=== PATIENT | male | born 1945 | race American Indian/Alaskan Native ===

== ENCOUNTER 2020-10-02 22:37 | Inpatient (IN) | payer MEDICARE ==
--- NOTE | 2020-10-02 22:50 | Emergency Department Report ---
ED General Adult HPI - General Chief complaint: Altered Mental Status Stated complaint: AMS Time Seen by Provider: 10/02/20 22:47 Source: patient, EMS (Verbal report received from emergency medical services. EMS documentation not available at time of chart dictation ), RN notes reviewed Mode of arrival: Stretcher Limitations: Altered Mental Status, Physical Limitation - History of Present Illness Initial comments: The patient was evaluated in the emergency department for symptoms described in the history of present illness. He/she was evaluated in the context of the global COVID-19 pandemic, which necessitated consideration that the patient migh t be at risk for infection with the virus that causes COVID-19. Institutional protocols and algorithms that pertain to the evaluation of patients at risk for COVID-19 are in a state of rapid change based on information released by regulatory bodies including the CDC and federal and state organizations. These policies and algorithms were followed during the patient's care in the emergency department. Please note that these policies, procedures and recommendations changed on a rapid basis. The patient is a 74-year-old gentleman. He is not known to myself previously. He is brought to the hospital by emergency medical services for weakness and altered mental status. EMS reports normal blood pressure in the field, low Accu-Chek in the field, they were not able to obtain a temperature. EMS reports that patient's last known well time is reportedly at least 12 hours prior to arrival. However, EMS is not explicitly certain as to the patient's exact last known well time. EMS did state that the patient lives at home with a family member, and is able to ambulate sometimes with a walker, sometimes without a walker. Upon my evaluation, the patient is awake and confused. He appears to have left- sided weakness. As the patient presents within 24 hours of last known well time, a code stroke is called overhead. However, given suspicion for hypothermia and hypoglycemia, we suspect infectious pathology versus toxic metabolic encephalopathy. Given left-sided deficits, emergent CT head, emergent CT angiogram head and neck ordered to evaluate for bleed, large vessel occlusion, dissection. Patient also seen in conjunction with stroke neurology, Dr. Kory Guerrero Noncontrast CT scan of the brain was negative for bleed. A right-sided MCA calcification was noted. A CT angiogram head and neck demonstrated no large vessel occlusion. X-ray the chest showed a right lower lobe pneumonia. Rectal temperature was 90.1. Lactic acid is 2.2. CBC is pending. Given hypoglycemia, hypothermia, lactic acidosis, altered mental status, patient to be admitted to the medical service for supportive care, and glycemic monitoring. I placed patient for orders for Accu-Cheks every 1 hour, D50 as needed, dextrose drip, ceftriaxone and azithromycin. Currently, EMS at the bedside, and I have instructed them to administer an additional amp of D50. Hospital physician, Dr. Martinez to admit to the medical service -: unknown - Related Data Allergies Allergy/AdvReac Type Severity Reaction Status Date / Time Unable to Assess Allergy Unverified 10/03/20 00:39 ED Review of Systems ROS: Stated complaint: AMS Other details as noted in HPI Comment: Unobtainable due to pts medical conditions Constitutional: malaise, weakness Cardiovascular: denies: chest pain Gastrointestinal: denies: abdominal pain Neurological: weakness, confusion ED Physical Exam - General Limitations: Altered Mental Status, Physical Limitation General appearance: lethargic - Head Head exam: Present: atraumatic, normocephalic - Eye Eye exam: Present: normal appearance, PERRL, EOMI. Absent: nystagmus - ENT ENT exam: Present: normal exam, normal orophraynx, mucous membranes moist, normal external ear exam, other (Patient has poor dentition) - Neck Neck exam: Present: normal inspection, full ROM. Absent: tenderness, meningismus - Respiratory Respiratory exam: Present: normal lung sounds bilaterally. Absent: respiratory distress, wheezes, rales, rhonchi, stridor, decreased breath sounds - Cardiovascular Cardiovascular Exam: Present: regular rate, normal rhythm, normal heart sounds. Absent: bradycardia, tachycardia, irregular rhythm, systolic murmur, diastolic murmur, rubs, gallop - GI/Abdominal GI/Abdominal exam: Present: soft. Absent: distended, tenderness, rebound, pulsatile mass - Rectal Rectal exam: Present: normal inspection, other (Brown stool noted on external exam). Absent: black stool, bloody stool - Extremities Exam Extremities exam: Present: normal inspection, pedal edema (There is 2+ edema in the bilateral lower extremities) - Back Exam Back exam: Present: normal inspection. Absent: tenderness, CVA tenderness (R), CVA tenderness (L), paraspinal tenderness, vertebral tenderness - Neurological Exam Neurological exam: Present: altered, other (There is no facial droop. The tongue is midline. EOMI. 3 out of 5 strength left arm, left leg. 4 out of 5 strength right arm and right leg. Sensation is intact to light touch in 4 extremities.) - Psychiatric Psychiatric exam: Present: flat affect - Skin Skin exam: Present: warm, dry, intact, normal color. Absent: rash ED Course Vital Signs 10/03/20 00:39 Temperature 90.1 F L Pulse Rate 98 H Respiratory 16 Rate Blood Pressure 128/75 [Right] O2 Sat by Pulse 99 Oximetry - Reevaluation(s) Reevaluation #1: 10/03/20 00:26 Differential diagnosis, including but not limited to: Stroke, subacute stroke, pneumonia, urinary tract infection, hypoglycemia, thyroid derangement Assessment and plan: 74-year-old gentleman with weakness, altered mental status, left-sided deficits, presents more than 4.5 hours after last known well time, TPA contraindicated. Given that he reportedly presents within 24 hours of last known well time, he is emergently and administratively consented for CT jose alejandro ogram head and neck to evaluate for large vessel occlusion and dissection. CT angiogram negative for large vessel occlusion and dissection. X-ray of the chest suggest right lower lobe pneumonia, this in conjunction with hypoglycemia and hypothermia is suggestive of sepsis. Currently do not have body weight entered, patient does not know his own body weight. Therefore, empirically dosed 2 L of normal saline, D10 at 150 cc an hour, ceftriaxone 1 g, and azithromycin 500 mg. Have also ordered active patient warming. Every 1 hour Accu-Chek is ordered. Hospital physician, Dr. Martinez to admit to the IMCU Rectal exam showed no blood and brown stool. Patient found to have microcytic anemia. Defer to inpatient team to further manage this. 10/03/20 01:02 ED Medical Decision Making - Lab Data Result diagrams: 10/02/20 23:17 10/02/20 23:17 Rectal temperature: 90.1 F Blood pressure 128/85 mmHg Heart rate 95 bpm 100% on room air. Respiratory rate, 16 breaths/min Vital Signs 10/03/20 00:39 Temperature 90.1 F L Pulse Rate 98 H Respiratory 16 Rate Blood Pressure 128/75 [Right] O2 Sat by Pulse 99 Oximetry Lab Results 10/02/20 10/02/20 10/02/20 Range/Units 23:17 23:17 23:17 WBC 7.8 (4.5-11.0) K/mm3 RBC 3.31 L (3.65-5.03) M/mm3 Hgb 6.7 L (11.8-15.2) gm/dl Hct 21.8 L (35.5-45.6) % MCV 66 L (84-94) fl MCH 20 L (28-32) pg MCHC 31 L (32-34) % RDW 31.7 H (13.2-15.2) % Plt Count 253 (140-440) K/mm3 PT 20.8 H (12.2-14.9) Sec. INR 1.74 H (0.87-1.13) APTT 57.6 H (24.2-36.6) Sec. Thrombin Time 17.8 (15.1-19.6) Sec. Sodium 139 (137-145) mmol/L Potassium 3.6 (3.6-5.0) mmol/L Chloride 101.3 (98-107) mmol/L Carbon Dioxide 27 (22-30) mmol/L Anion Gap 14 mmol/L BUN 15 (9-20) mg/dL Creatinine 0.9 (0.8-1.3) mg/dL Estimated GFR > 60 ml/min BUN/Creatinine Ratio 17 % Glucose 42 L (75-100) mg/dL Lactic Acid (0.7-2.0) mmol/L Calcium 8.8 (8.4-10.2) mg/dL Total Bilirubin 0.50 (0.1-1.2) mg/dL AST 26 (5-40) units/L ALT 17 (7-56) units/L Alkaline Phosphatase 101 (35-129) units/L Ammonia (25-60) umol/L Total Creatine Kinase 88 (55-170) units/L CK-MB (CK-2) 7.5 H (0.0-4.0) ng/mL CK-MB (CK-2) Rel Index 8.5 H (0-4) Troponin T < 0.010 (0.00-0.029) ng/mL Total Protein 6.3 (6.3-8.2) g/dL Albumin 2.9 L (3.9-5) g/dL Albumin/Globulin Ratio 0.9 % TSH (0.270-4.200) mlU/mL Salicylates (2.8-20.0) mg/dL Acetaminophen (10.0-30.0) ug/mL Plasma/Serum Alcohol (0-0.07) % 10/02/20 10/02/20 10/02/20 Range/Units 23:17 23:17 23:17 WBC (4.5-11.0) K/mm3 RBC (3.65-5.03) M/mm3 Hgb (11.8-15.2) gm/dl Hct (35.5-45.6) % MCV (84-94) fl MCH (28-32) pg MCHC (32-34) % RDW (13.2-15.2) % Plt Count (140-440) K/mm3 PT (12.2-14.9) Sec. INR (0.87-1.13) APTT (24.2-36.6) Sec. Thrombin Time (15.1-19.6) Sec. Sodium (137-145) mmol/L Potassium (3.6-5.0) mmol/L Chloride (98-107) mmol/L Carbon Dioxide (22-30) mmol/L Anion Gap mmol/L BUN (9-20) mg/dL Creatinine (0.8-1.3) mg/dL Estimated GFR ml/min BUN/Creatinine Ratio % Glucose (75-100) mg/dL Lactic Acid 2.20 H* (0.7-2.0) mmol/L Calcium (8.4-10.2) mg/dL Total Bilirubin (0.1-1.2) mg/dL AST (5-40) units/L ALT (7-56) units/L Alkaline Phosphatase (35-129) units/L Ammonia (25-60) umol/L Total Creatine Kinase (55-170) units/L CK-MB (CK-2) (0.0-4.0) ng/mL CK-MB (CK-2) Rel Index (0-4) Troponin T (0.00-0.029) ng/mL Total Protein (6.3-8.2) g/dL Albumin (3.9-5) g/dL Albumin/Globulin Ratio % TSH 2.060 (0.270-4.200) mlU/mL Salicylates (2.8-20.0) mg/dL Acetaminophen (10.0-30.0) ug/mL Plasma/Serum Alcohol < 0.01 (0-0.07) % 10/02/20 10/02/20 10/02/20 Range/Units 23:17 23:17 23:17 WBC (4.5-11.0) K/mm3 RBC (3.65-5.03) M/mm3 Hgb (11.8-15.2) gm/dl Hct (35.5-45.6) % MCV (84-94) fl MCH (28-32) pg MCHC (32-34) % RDW (13.2-15.2) % Plt Count (140-440) K/mm3 PT (12.2-14.9) Sec. INR (0.87-1.13) APTT (24.2-36.6) Sec. Thrombin Time (15.1-19.6) Sec. Sodium (137-145) mmol/L Potassium (3.6-5.0) mmol/L Chloride (98-107) mmol/L Carbon Dioxide (22-30) mmol/L Anion Gap mmol/L BUN (9-20) mg/dL Creatinine (0.8-1.3) mg/dL Estimated GFR ml/min BUN/Creatinine Ratio % Glucose (75-100) mg/dL Lactic Acid (0.7-2.0) mmol/L Calcium (8.4-10.2) mg/dL Total Bilirubin (0.1-1.2) mg/dL AST (5-40) units/L ALT (7-56) units/L Alkaline Phosphatase (35-129) units/L Ammonia 22.0 L (25-60) umol/L Total Creatine Kinase (55-170) units/L CK-MB (CK-2) (0.0-4.0) ng/mL CK-MB (CK-2) Rel Index (0-4) Troponin T (0.00-0.029) ng/mL Total Protein (6.3-8.2) g/dL Albumin (3.9-5) g/dL Albumin/Globulin Ratio % TSH (0.270-4.200) mlU/mL Salicylates < 0.3 L (2.8-20.0) mg/dL Acetaminophen 5.0 L (10.0-30.0) ug/mL Plasma/Serum Alcohol (0-0.07) % - Radiology Data Radiology results: pending, report reviewed, image reviewed CT angio head INDICATION / CLINICAL INFORMATION: 74 years Male; CODE STROKE PROTOCOL!!! Stroke-Like symptoms. TECHNIQUE: Thin cut axial images obtained through the head during IV bolus contrast administration. Sagittal, coronal, and 3 plane MIP reconstructions performed by the technologist. NASCET type criteria used evaluate stenoses. Automated exposure control utilized for radiation reduction purposes. COMPARISON: None available. FINDINGS: INTERNAL CAROTID ARTERIES: There is mild narrowing are seen in the communicating and cavernous portions of both internal carotid arteries, related to atherosclerotic disease. VERTEBROBASILAR SYSTEM: No significant narrowing appreciated. DISTAL BRANCHES: Distal branches of the anterior, middle, and posterior cerebral arteries are fairly symmetric in appearance and number. Focal areas of moderate to high-grade narrowing are seen in the proximal P2 regions bilaterally . Focal area of moderate narrowing is seen in a proximal right MCA trifurcation branch, as well ANEURYSM: None identified. 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 Would question prior bony facial trauma in the right maxillary antrum region. Mild to moderate mucosal thickening seen in the maxillary antra and ethmoids. IMPRESSION: 1. There is significant narrowing seen in both posterior cerebral arteries, as described above. 2. No signs of large vessel occlusion Signer Name: Royce Estevez MD, III Signed: 10/02/2020 10:52 PM Workstation Name: [id number] . CT angio neck INDICATION / CLINICAL INFORMATION: 74 years Male; CODE STROKE PROTOCOL!!! Stroke-Like symptoms. TECHNIQUE: Thin cut axial images obtained through the head during IV bolus contrast administration. Sagittal, coronal, and 3 plane MIP reconstructions performed by the technologist. NASCET type criteria used evaluate stenoses. All CT scans at this location are performed using CT dose reduction for ALARA by means of automated exposure control. COMPARISON: None available. FINDINGS: ARCH: Normal aortic arch branching suggested. CAROTID ARTERIES: The visualized common and internal carotid arteries are widely patent. Mild atherosclerotic disease seen. VERTEBRAL ARTERIES: Codominant vertebral system seen. No significant stenosis appreciated. ADDITIONAL FINDINGS: Significant facet hypertrophy seen at multiple levels. There is canal narrowing at C3-4 from disc disease anteriorly and ligamentum flavum hypertrophy posteriorly. No definitive signs of cord impingement seen. Most marked osseous foraminal narrowing appears to be on the left at C4-5 and C3-4 and on the right from C2-3 through C5-6. Poor dentition noted. I MPRESSION: No significant stenosis appreciated on this CTA of the neck. Signer Name: Royce Estevez MD, III Signed: 10/02/2020 10:[address] head without contrast INDICATION : Code stroke. Stroke like symptoms. TECHN IQUE: Axial imaging performed from the skull apex through the skull base without the use of contrast. All CT examinations performed at this facility utilize dose modulation, iterative reconstruction or weight-based dosing, when appropriate, to reduce radiation dose to as low as reasonably achievable. COMPARISON: None FINDINGS: No acute intracranial hemorrhage identified. There is mild diffuse cerebral atrophy. There is diffuse cerebral atrophy with periventricular white matter changes which could be seen with microangiopathic change. There is suspicious calcification identified within the right MCA best seen on coronal image [address] series 601. There is evidence of a lacunar infarct within the anterior right basal ganglia that is chronic in appearance measuring about 9 mm in diameter. The orbits are unremarkable. The paranasal sinuses demonstrate mild mucosal thickening. IMPRESSION: No acute intracranial hemorrhage is identified. Diffuse cerebral atrophy with suspicious atheroscle rotic calcification within the distal right MCA, as above. CODE STROKE: Time of Communication (GAMBLING DEALER/CDT): 10:25 PM central time on 10/02/2020 Licensed Practitioner Receiving Report: Lilian MUÑOZ Signer Name: Freddy Berg MD Signed: 10/02/2020 10:28 PM Workstation Name: [id number] 1 VIEW INDICATION / CLINICAL INFORMATION: weak ams. Dyspnea FINDINGS: SUPPORT DEVICES: None. HEART / MEDIASTINUM: No significant abnormality. LUNGS / PLEURA: Faint patchy airspace disease within the right lower lung. Signer Name: Freddy Berg MD Signed: 10/02/2020 10:57 PM Workstation Name: [id number] Critical Care Time: Yes Critical care time in (mins) excluding proc time.: 45 Critical care attestation.: If time is entered above; I have spent that time in minutes in the direct care of this critically ill patient, excluding procedure time. ED Disposition Clinical Impression: Hypothermia, Hypoglycemia, Left-sided weakness, Atherosclerotic cerebrovascular disease, Pulmonary infiltrate in right lung on CXR, Microcytic anemia Disposition: ADMITTED INPATIENT Is pt being admited?: Yes Does the pt Need Aspirin: Yes Condition: Serious
--- NOTE | 2020-10-02 23:32 | Cat Scan Report ---
CT head without contrast INDICATION : Code stroke. Stroke like symptoms. TECHNIQUE: Axial imaging performed from the skull apex through the skull base without the use of con trast. All CT examinations performed at this facility utilize dose modulation, iterative reconstruct ion or weight-based dosing, when appropriate, to reduce radiation dose to as low as reasonably achiev able. COMPARISON: None FINDINGS: No acute intracranial hemorrhage identified. There is mild diffuse cerebral atrophy. There is diffuse cerebral atrophy with periventricular white matter changes which could be seen with microa ngiopathic change. There is suspicious calcification identified within the right MCA best seen on cor onal image [address] series 601. There is evidence of a lacunar infarct within the anterior right basa l ganglia that is chronic in appearance measuring about 9 mm in diameter. The orbits are unremarkable. The paranasal sinuses demonstrate mild mucosal thickening. IMPRESSION: No acute intracranial hemorrhage is identified. Diffuse cerebral atrophy with suspicious atherosclerotic calcification within the distal right MCA, as above. CODE STROKE: Time of Communication (LEAD PYTHON DEVELOPER/CDT): 10:25 PM central time on 10/02/2020 Licensed Practitioner Receiving Report: Lilian MUÑOZ Signer Name: Freddy Berg MD Signed: 10/02/2020 11:28 PM Workstation Name: [id number]
--- NOTE | 2020-10-02 23:56 | Cat Scan Report ---
CT angio head INDICATION / CLINICAL INFORMATION: 74 years Male; CODE STROKE PROTOCOL!!! Stroke-Like symptoms. TECHNIQUE: Thin cut axial images obtained through the head during IV bolus contrast administration. S agittal, coronal, and 3 plane MIP reconstructions performed by the technologist. NASCET type criteria used evaluate stenoses. Automated exposure control utilized for radiation reduction purposes. COMPARISON: None available. FINDINGS: INTERNAL CAROTID ARTERIES: There is mild narrowing are seen in the communicating and cavernous portio ns of both internal carotid arteries, related to atherosclerotic disease. VERTEBROBASILAR SYSTEM: No significant narrowing appreciated. DISTAL BRANCHES: Distal branches of the anterior, middle, and posterior cerebral arteries are fairly symmetric in appearance and number. Focal areas of moderate to high-grade narrowing are seen in the proximal P2 regions bilaterally. Focal area of moderate narrowing is seen in a proximal right MCA trifurcation branch, as well ANEURYSM: None identified. 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 Would question prior bony facial trauma in the right maxillary antrum region. Mild to moderate mucosa l thickening seen in the maxillary antra and ethmoids. IMPRESSION: 1. There is significant narrowing seen in both posterior cerebral arteries, as described above. 2. No signs of large vessel occlusion Signer Name: Royce Estevez MD, III Signed: 10/02/2020 11:52 PM Workstation Name: [id number]
[2020-10-03 00:01] LABS: INR 1.74 (0.87-1.13)
--- NOTE | 2020-10-03 00:01 | Emergency Department Report ---
Blank Doc - Documentation Documentation: [facility] Consult Note # Demographics Consult Type: Acute Stroke Level 2 (4.5-24 hrs) Patient Location: Emergency Room First Name: Morales Last Name: Jaime Date of : 1945 Age: 74 Gender: Male Time of Initial Page ( Time): 10/02/2020, 22:50 Time of Return Call ( Time): 10/02/2020, 22:50 # HPI History: 74 yo man who presented with AMS and left sided weakness. Last known well 12 hrs ago at breakfast time. She eventually found the patient in his bed incontinent in feces/urine. EMS noted unable to repeat, and only able to answer very simple questions. # Scores Time of exam and NIHSS (): 10/02/2020, 23:11 Level of Consciousness 1a: [0] = Alert; keenly responsive LOC Questions 1b: [1] = Answers one correctly LOC Commands 1c: [0] = Performs both tasks correctly Best Gaze 2: [0] = Normal Visual 3: [0] = No visual loss Facial Palsy 4: [0] = Normal symmetrical movements Motor Arm Left 5a: [0] = No drift Motor Arm Right 5b: [0] = No drift Motor Leg Left 6a: [0] = No drift Motor Leg Right 6b: [0] = No drift Limb Ataxia 7: [0] = Absent Sensory 8: [0] = Normal Best Language 9: [1] = [id number]-[id number]-qecoeopy aphasia Dysarthria 10: [1] = Ijns-av-slnlgpic dysarthria Extinction and Inattention 11: [0] = No abnormality NIHSS Total: 3 # Data Head CT: no bleed # Assessment Impression: encephalopathy, possible aphasia , generalized weakness out of tpa window # Plan Thrombolytic/Intervention: NOT IV Thrombolysis or IA Intervention candidate Thrombolytic Exclusion: > 4.5 hours Intraarterial Exclusion: no large vessel occlusion (LVO) Target Blood Pressure: SBP < 220 Labs: CBC comprehensive metabolic panel lipid panel TSH ua Imaging: (urgency: STAT): MRI Brain without contrast Diagnostic Test: echo with bubble study Therapy/Evaluation: speech/swallow consultation Medication: aspirin 325 mg daily DVT Prophylaxis: heparin 5000 units subcutaneously q 12 hours Other: consult on-site neurology service for full work-up and evaluation recommendations If patient has any neurological deterioration please call me back immediately I have discussed my recommendations with the referring provider Additional Recommendations: metabolic / infectious work up. Disposition: admit # Logistics Telemedicine: Interactive 2 way audio and visual telecommunication technology was utilized during this visit
[2020-10-03 00:02] LABS: Partial Thromboplastin Time 57.6 Sec. (24.2-36.6); Thrombin Time 17.8 Sec. (15.1-19.6)
--- NOTE | 2020-10-03 00:02 | XRay Report ---
CHEST 1 VIEW INDICATION / CLINICAL INFORMATION: weak ams. Dyspnea FINDINGS: SUPPORT DEVICES: None. HEART / MEDIASTINUM: No significant abnormality. LUNGS / PLEURA: Faint patchy airspace disease within the right lower lung. Signer Name: Freddy Berg MD Signed: 10/02/2020 11:57 PM Workstation Name: [id number]
[2020-10-03 00:03] LABS: Alanine Aminotransferase 17 units/L (7-56); Albumin 2.9 g/dL (3.9-5); BUN/Creatinine Ratio 17; Blood Urea Nitrogen 15 mg/dL (9-20); Calcium 8.8 mg/dL (8.4-10.2); Creatine Kinase MB 7.5 ng/mL (0.0-4.0); Hemolysis Index 0
--- NOTE | 2020-10-03 00:03 | Cat Scan Report ---
. CT angio neck INDICATION / CLINICAL INFORMATION: 74 years Male; CODE STROKE PROTOCOL!!! Stroke-Like symptoms. TECHNIQUE: Thin cut axial images obtained through the head during IV bolus contrast administration. S agittal, coronal, and 3 plane MIP reconstructions performed by the technologist. NASCET type criteria used evaluate stenoses. All CT scans at this location are performed using CT dose reduction for ALAR A by means of automated exposure control. COMPARISON: None available. FINDINGS: ARCH: Normal aortic arch branching suggested. CAROTID ARTERIES: The visualized common and internal carotid arteries are widely patent. Mild atheros clerotic disease seen. VERTEBRAL ARTERIES: Codominant vertebral system seen. No significant stenosis appreciated. ADDITIONAL FINDINGS: Significant facet hypertrophy seen at multiple levels. There is canal narrowing at C3-4 from disc disease anteriorly and ligamentum flavum hypertrophy posteriorly. No definitive sig ns of cord impingement seen. Most marked osseous foraminal narrowing appears to be on the left at C4- 5 and C3-4 and on the right from C2-3 through C5-6. Poor dentition noted. IMPRESSION: No significant stenosis appreciated on this CTA of the neck. Signer Name: Royce Estevez MD, III Signed: 10/02/2020 11:59 PM Workstation Name: [email or web address]
[2020-10-03] MEDS ORDERED: cefTRIAXone/NS 1 GM/50 ML 1 GM/50 ML BAG IV ONE (00:17)
[2020-10-03] MEDS ORDERED: AZITHROMYCIN/NS 500 MG/250 ML 500 MG/250 ML BAG IV ONE (00:17)
[2020-10-03 00:20] LABS: Hematocrit 21.8 % (35.5-45.6); Hemoglobin 6.7 gm/dl (11.8-15.2); Mean Corpuscular HGB Conc 31 % (32-34); Platelet Count 253 K/mm3 (140-440); Red Blood Count 3.31 M/mm3 (3.65-5.03)
[2020-10-03 00:21] LABS: Mean Corpuscular Volume 66 fl (84-94); Red Cell Distribution Width 31.7 % (13.2-15.2)
[2020-10-03] MEDS ORDERED: SODIUM CHLORIDE 0.9% 1000 ML 1,000 ML IV SCH (00:25)
[2020-10-03] MEDS ORDERED: DEXTROSE 10% IN WATER 1,000 ML IV SCH ×2 (01:00→14:00)
[2020-10-03] MEDS ORDERED: ASPIRIN 81 MG TAB CHEW PO ONE (01:01)
--- NOTE | 2020-10-03 01:01 | History and Physical Report ---
History of Present Illness Date of examination: 10/03/20 Date of admission: 10/03/20 Chief complaint: AMS History of present illness: History: 74 yo man who presented with AMS and left sided weakness. Last known well 12 hrs ago at breakfast time. She eventually found the patient in his bed incontinent in feces/urine. EMS noted unable to repeat, and only able to answer very simple questions. Patient seen at bedside in the ED. patient awake, confused, unable to answer questions appropriately. Patient history and present illness explained by EMT document with patient. CT of the head no acute finding but showed a cerebral atrophy with suspicious atrophy and atherosclerotic calcification within the distal right middle cerebral artery. Past History Past Medical History: GERD Past Surgical History: No surgical history Social history: no significant social history, alcohol abuse (Per patient his) Family history: no significant family history (Unable to get information from the patient secondary to altered mental status) Medications and Allergies Allergies Allergy/AdvReac Type Severity Reaction Status Date / Time Unable to Assess Allergy Unverified 10/03/20 00:39 Active Meds: Active Medications Aspirin (Aspirin 81 Mg Tab Chew) 324 mg PO ONCE ONE Stop: 10/03/20 00:32 Dextrose (Dextrose 50% In Water (25gm) 50 Ml Syringe) 50 ml IV Q30MIN PRN; Protocol PRN Reason: Hypoglycemia Dextrose (Dextrose 50% In Water (25gm) 50 Ml Syringe) 50 ml IV ONCE ONE; Protocol Stop: 10/02/20 22:50 Dextrose (D10w) 1,000 mls @ 150 mls/hr IV DIRECT JOSE Azithromycin (Zithromax/Ns) 500 mg in 250 mls @ 250 mls/hr IV ONCE ONE; Protocol Stop: 10/03/20 01:16 Ceftriaxone Sodium (Rocephin/Ns 1 Gm/50 Ml) 1 gm in 50 mls @ 100 mls/hr IV ONCE ONE; Protocol Stop: 10/03/20 00:46 Sodium Chloride (Nacl 0.9% 1000 Ml) 2,000 mls @ 999 mls/hr IV BOLUS ONE Stop: 10/03/20 02:25 Review of Systems Constitutional: weakness Ears, nose, mouth and throat: no epistaxis, no bleeding gums Cardiovascular: no shortness of breath, no dyspnea on exertion Respiratory: no wheezing Gastrointestinal: no melena, no hematochezia Neurological: aphasia, confusion, memory loss, no convulsions Psychiatric: confusion Endocrine: no excessive sweating Hematologic/Lymphatic: no easy bruising, no easy bleeding, no lymphadenopathy, no lymphedema Allergic/Immunologic: no urticaria, no allergic rhinitis Exam - Constitutional Vitals: Temp Pulse Resp BP Pulse Ox 90.1 F L 98 H 16 128/75 99 10/03/20 00:39 10/03/20 00:39 10/03/20 00:39 10/03/20 00:39 10/03/20 00:39 General appearance: Present: mild distress, well-nourished - EENT Eyes: Present: PERRL ENT: hearing intact, clear oral mucosa - Neck Neck: Present: supple, normal ROM - Respiratory Respiratory effort: normal Respiratory: bilateral: CTA - Cardiovascular Heart Sounds: Present: S1 & S2. Absent: rub, click - Extremities Extremities: pulses symmetrical, No edema Peripheral Pulses: within normal limits - Abdominal General gastrointestinal: Present: soft, non-tender, non-distended, normal bowel sounds Male genitourinary: Present: normal - Integumentary Integumentary: Present: clear, warm, dry - Musculoskeletal Musculoskeletal: gait normal, strength equal bilaterally - Psychiatric Psychiatric: other (Altered mental status, confused, unable to answer questions appropriately) - Neurologic Neurologic: CNII-XII intact, moves all extremities - Allied Health Allied health notes reviewed: nursing, PT, ST, OT HEART Score - HEART Score Troponin: Troponin T < 0.010 ng/mL (0.00-0.029) 10/02/20 23:17 Results - Labs CBC & Chem 7: 10/02/20 23:17 10/02/20 23:17 Labs: Abnormal lab results 10/02/20 10/02/20 10/02/20 Range/Units 23:17 23:17 23:17 RBC 3.31 L (3.65-5.03) M/mm3 Hgb 6.7 L (11.8-15.2) gm/dl Hct 21.8 L (35.5-45.6) % MCV 66 L (84-94) fl MCH 20 L (28-32) pg MCHC 31 L (32-34) % RDW 31.7 H (13.2-15.2) % PT 20.8 H (12.2-14.9) Sec. INR 1.74 H (0.87-1.13) APTT 57.6 H (24.2-36.6) Sec. Glucose 42 L (75-100) mg/dL Lactic Acid (0.7-2.0) mmol/L Ammonia (25-60) umol/L CK-MB (CK-2) 7.5 H (0.0-4.0) ng/mL CK-MB (CK-2) Rel Index 8.5 H (0-4) Albumin 2.9 L (3.9-5) g/dL Salicylates (2.8-20.0) mg/dL Acetaminophen (10.0-30.0) ug/mL 10/02/20 10/02/20 10/02/20 Range/Units 23:17 23:17 23:17 RBC (3.65-5.03) M/mm3 Hgb (11.8-15.2) gm/dl Hct (35.5-45.6) % MCV (84-94) fl MCH (28-32) pg MCHC (32-34) % RDW (13.2-15.2) % PT (12.2-14.9) Sec. INR (0.87-1.13) APTT (24.2-36.6) Sec. Glucose (75-100) mg/dL Lactic Acid 2.20 H* (0.7-2.0) mmol/L Ammonia 22.0 L (25-60) umol/L CK-MB (CK-2) (0.0-4.0) ng/mL CK-MB (CK-2) Rel Index (0-4) Albumin (3.9-5) g/dL Salicylates < 0.3 L (2.8-20.0) mg/dL Acetaminophen (10.0-30.0) ug/mL 10/02/20 Range/Units 23:17 RBC (3.65-5.03) M/mm3 Hgb (11.8-15.2) gm/dl Hct (35.5-45.6) % MCV (84-94) fl MCH (28-32) pg MCHC (32-34) % RDW (13.2-15.2) % PT (12.2-14.9) Sec. INR (0.87-1.13) APTT (24.2-36.6) Sec. Glucose (75-100) mg/dL Lactic Acid (0.7-2.0) mmol/L Ammonia (25-60) umol/L CK-MB (CK-2) (0.0-4.0) ng/mL CK-MB (CK-2) Rel Index (0-4) Albumin (3.9-5) g/dL Salicylates (2.8-20.0) mg/dL Acetaminophen 5.0 L (10.0-30.0) ug/mL Assessment and Plan - Patient Problems (1) Acute encephalopathy Current Visit: Yes Status: Acute Plan to address problem: CT angio of the head that is a significant narrowing seen in both posterior cerebral arteries and no signs of large vessel CT of the head no acute finding but showed a cerebral atrophy with suspicious atrophy and atherosclerotic calcification within the distal right middle cerebral artery. (2) Hypothermia Current Visit: Yes Status: Acute Plan to address problem: Monitor body temperature Applied bed hugger (3) Pulmonary infiltrate in right lung on CXR Current Visit: Yes Status: Acute Plan to address problem: Likely secondary to pneumonia Start empiric antibiotics Rocephin and azithromycin (4) Atherosclerotic cerebrovascular disease Current Visit: Yes Status: Acute Plan to address problem: Safety and fall precaution at all times PT OT consult follow-up with recommendation for discharge placement (5) Anemia Current Visit: Yes Status: Acute Plan to address problem: Likely 2/2 to malnutrion-patient has no evidence of bleeding and has normal PLT Monitor H&Hadmission H&H 6.7- Type and screen and transfuse 1 unit packed red blood cells Iron and multivitamin supplement Check iron level (6) Severe protein-calorie malnutrition Current Visit: Yes Status: Acute Plan to address problem: labor union business 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
[2020-10-03] MEDS ORDERED: DEXTROSE 50% IN WATER (25GM) 50 ML SYRINGE IV ONE (01:05)
[2020-10-03 01:23] LABS: Total Cells Counted 100
[2020-10-03 01:24] LABS: Anisocytosis 2+; Macrocytosis 1+; Schistocytes Few
[2020-10-03] MEDS ORDERED: SENNOSIDES 8.6 MG TAB PO PRN (02:10)
[2020-10-03] MEDS ORDERED: ACETAMINOPHEN 325 MG TAB PO PRN (02:10)
[2020-10-03] MEDS ORDERED: METOCLOPRAMIDE 10 MG/2 ML INJ IV PRN (02:10)
[2020-10-03] MEDS ORDERED: MAGNESIUM HYDROXIDE (MOM) ORAL LIQD UDC PO PRN (02:10)
[2020-10-03] MEDS ORDERED: PROMETHAZINE 25 MG RECT SUPP PR PRN (02:10)
[2020-10-03] MEDS ORDERED: ONDANSETRON 4 MG/2 ML INJ IV PRN (02:10)
[2020-10-03] MEDS ORDERED: ALUM-MAG HYDROXIDE-SIMETHICONE 200-200-20MG/5ML ORAL LIQD 30 ML PO PRN (02:10)
[2020-10-03] MEDS ORDERED: MORPHINE 4 MG/1 ML INJ IV PRN (02:10)
[2020-10-03] MEDS ORDERED: oxyCODONE /ACETAMINOPHEN 5-325MG TAB PO PRN (02:10)
[2020-10-03] MEDS ORDERED: D5W/0.9% NACL 1,000 ML IV SCH (03:00)
[2020-10-03] MEDS ORDERED: SODIUM CHLORIDE 0.9% 500 ML 500 ML IV ONE (05:46)
[2020-10-03] MEDS: DEXTROSE 50% IN WATER (25GM) 50 ML SYRINGE IV PRN ×16 (06:04→22:20)
[2020-10-03 06:24] LABS: Hematocrit 17.8 % (35.5-45.6); Mean Corpuscular HGB Conc 30 % (32-34); Platelet Count 284 K/mm3 (140-440); Red Blood Count 2.66 M/mm3 (3.65-5.03)
[2020-10-03 06:43] LABS: Alanine Aminotransferase 16 units/L (7-56); Albumin 3.1 g/dL (3.9-5); BUN/Creatinine Ratio 19; Blood Urea Nitrogen 15 mg/dL (9-20); Calcium 9.4 mg/dL (8.4-10.2); Hemolysis Index 0
[2020-10-03 07:52] LABS: Hemoglobin 5.3 gm/dl (11.8-15.2); Mean Corpuscular Volume 67 fl (84-94)
[2020-10-03 07:53] LABS: Red Cell Distribution Width 32.1 % (13.2-15.2)
[2020-10-03 09:18] LABS: Iron 42 ug/dL (49-181); Total Iron Binding Capacity 305 mcg/dL (250-450)
[2020-10-03] MEDS ORDERED: SODIUM CHLORIDE 0.9% 500 ML 500 ML ONE (09:19)
[2020-10-03] MEDS ORDERED: ENOXAPARIN 40 MG/0.4 ML INJ SUB-Q SCH (10:00)
[2020-10-03] MEDS ORDERED: SODIUM CHLORIDE 0.9% 500 ML 500 ML IV NR (10:15)
[2020-10-03 15:37] LABS: Anisocytosis 2+; Band Neutrophils # (Manual) 0.1 K/mm3; Total Cells Counted 100
--- NOTE | 2020-10-03 15:38 | Consultation ---
History of Present Illness Consult date: 10/03/20 Chief complaint: AMS History of present illness: History of present illness: History: 74 yo man who presented with AMS and left sided weakness. Last known well 12 hrs ago at breakfast time. She eventually found the patient in his bed incontinent in feces/urine. EMS noted unable to repeat, and only able to answer very simple questions. Patient seen at bedside in the ED. patient awake, confused, unable to answer questions appropriately. Patient history and present illness explained by EMT document with patient. CT of the head no acute finding but showed a cerebral atrophy with suspicious atrophy and atherosclerotic calcification within the distal right middle cerebral artery. Past History Past Medical History: GERD Past Surgical History: No surgical history Social history: no significant social history, alcohol abuse (Per patient his) Family history: no significant family history (Unable to get information from the patient secondary to altered mental status) Medications and Allergies Allergies Allergy/AdvReac Type Severity Reaction Status Date / Time No Known Allergies Allergy Unverified 10/03/20 12:27 Active Meds: Active Medications Acetaminophen (Acetaminophen 325 Mg Tab) 650 mg PO Q4H PRN PRN Reason: Pain MILD(1-3)/Fever >100.5/ROMERO Al Hydrox/Mg Hydrox/Simethicone (Alum-Mag Hydroxide-Simethicone 231-720-27cl/5ml Oral Liqd 30 Ml) 30 ml PO Q4H PRN PRN Reason: Indigestion Dextrose (Dextrose 50% In Water (25gm) 50 Ml Syringe) 0 ml IV Q30MIN PRN; Protocol PRN Reason: Hypoglycemia Last Admin: 10/03/20 15:27 Dose: 20 ml Documented by: Famotidine (Famotidine 20 Mg/2 Ml Inj) 20 mg IV BID JOSE Ferrous Sulfate (Ferrous Sulfate 325 Mg Tab) 325 mg PO QDAY JOSE Folic Acid (Folic Acid 1 Mg Tab) 1 mg PO QDAY JOSE Sodium Chloride (Nacl 0.9% 1000 Ml) 1,000 mls @ 999 mls/hr IV BOLUS JOSE Stop: 10/04/20 01:26 Ceftriaxone Sodium (Rocephin/Ns 1 Gm/50 Ml) 1 gm in 50 mls @ 100 mls/hr IV QHS JOSE; Protocol Stop: 10/06/20 22:29 Azithromycin (Zithromax/Ns) 500 mg in 250 mls @ 250 mls/hr IV QHS JOSE Stop: 10/06/20 22:59 Dextrose/Sodium Chloride (D5ns) 1,000 mls @ 75 mls/hr IV DIRECT JOSE Sodium Chloride (Nacl 0.9% 500 Ml) 500 mls @ 0 mls/hr IV ONCE NR Stop: 10/03/20 18:00 Dextrose (D10w) 1,000 mls @ 50 mls/hr IV DIRECT JOSE Last Admin: 10/03/20 15:12 Dose: 50 mls/hr Documented by: Magnesium Hydroxide (Magnesium Hydroxide (Mom) Oral Liqd Udc) 30 ml PO Q4H PRN PRN Reason: Constipation Metoclopramide HCl (Metoclopramide 10 Mg/2 Ml Inj) 10 mg IV Q6H PRN PRN Reason: Nausea And Vomiting Multivitamins (Multivitamins ,Therapeutic Tab) 1 each PO QDAY JOSE Ondansetron HCl (Ondansetron 4 Mg/2 Ml Inj) 4 mg IV Q8H PRN PRN Reason: Nausea And Vomiting Oxycodone/Acetaminophen (Oxycodone /Acetaminophen 5-325mg Tab) 1 tab PO Q6H PRN PRN Reason: Pain, Moderate (4-6) Promethazine HCl (Promethazine 25 Mg Rect Supp) 25 mg CO Q6H PRN PRN Reason: N/V IF NPO AND NO IV ACCESS Senna (Sennosides 8.6 Mg Tab) 8.6 mg PO Q12HR PRN PRN Reason: Constipation Sodium Chloride (Sodium Chloride 0.9% 10 Ml Flush Syringe) 10 ml IV BID [facility] Physical Examination - Vital Signs Vital Signs: Vital Signs Temp Pulse Resp BP Pulse Ox 90.1 F L 98 H 16 128/75 99 10/03/20 00:39 10/03/20 00:39 10/03/20 00:39 10/03/20 00:39 10/03/20 00:39 - Physical Exam Narrative exam: The patient is drowsy, there is dysarthria . There is weakness in the upper extremity left . right , Lower Extremity Strength is difficult to assess. Results - Laboratory Findings CBC and BMP: 10/03/20 05:57 10/03/20 05:57 Abnormal Lab Findings: Abnormal Labs 10/02/20 10/02/20 10/02/20 23:17 23:17 23:17 RBC 3.31 L Hgb 6.7 L Hct 21.8 L MCV 66 L MCH 20 L MCHC 31 L RDW 31.7 H Seg Neuts % (Manual) 79.0 H Lymphocytes % (Manual) 11.0 L Monocytes % (Manual) 10.0 H Lymphocytes # (Manual) 0.9 L PT 20.8 H INR 1.74 H APTT 57.6 H Glucose 42 L POC Glucose Lactic Acid Iron Ammonia CK-MB (CK-2) 7.5 H CK-MB (CK-2) Rel Index 8.5 H Total Protein Albumin 2.9 L Salicylates Acetaminophen Crossmatch 10/02/20 10/02/20 10/02/20 23:17 23:17 23:17 RBC Hgb Hct MCV MCH MCHC RDW Seg Neuts % (Manual) Lymphocytes % (Manual) Monocytes % (Manual) Lymphocytes # (Manual) PT INR APTT Glucose POC Glucose Lactic Acid 2.20 H* Iron Ammonia 22.0 L CK-MB (CK-2) CK-MB (CK-2) Rel Index Total Protein Albumin Salicylates < 0.3 L Acetaminophen Crossmatch 10/02/20 10/03/20 10/03/20 23:17 05:57 05:57 RBC 2.66 L Hgb 5.3 L* Hct 17.8 L* MCV 67 L MCH 20 L MCHC 30 L RDW 32.1 H Seg Neuts % (Manual) Lymphocytes % (Manual) Monocytes % (Manual) Lymphocytes # (Manual) PT INR APTT Glucose POC Glucose Lactic Acid Iron Ammonia CK-MB (CK-2) CK-MB (CK-2) Rel Index Total Protein Albumin Salicylates Acetaminophen 5.0 L Crossmatch See Detail 10/03/20 10/03/20 10/03/20 05:57 05:57 06:00 RBC Hgb Hct MCV MCH MCHC RDW Seg Neuts % (Manual) Lymphocytes % (Manual) Monocytes % (Manual) Lymphocytes # (Manual) PT INR APTT Glucose 52 L POC Glucose 31 L Lactic Acid Iron 42 L Ammonia CK-MB (CK-2) CK-MB (CK-2) Rel Index Total Protein 5.8 L Albumin 3.1 L Salicylates Acetaminophen Crossmatch 10/03/20 10/03/20 10/03/20 07:34 09:43 10:57 RBC Hgb Hct MCV MCH MCHC RDW Seg Neuts % (Manual) Lymphocytes % (Manual) Monocytes % (Manual) Lymphocytes # (Manual) PT INR APTT Glucose POC Glucose 59 L 41 L 31 L Lactic Acid Iron Ammonia CK-MB (CK-2) CK-MB (CK-2) Rel Index Total Protein Albumin Salicylates Acetaminophen Crossmatch 10/03/20 10/03/20 10/03/20 11:21 12:00 12:14 RBC Hgb Hct MCV MCH MCHC RDW Seg Neuts % (Manual) Lymphocytes % (Manual) Monocytes % (Manual) Lymphocytes # (Manual) PT INR APTT Glucose POC Glucose 62 L 26 L 140 H Lactic Acid Iron Ammonia CK-MB (CK-2) CK-MB (CK-2) Rel Index Total Protein Albumin Salicylates Acetaminophen Crossmatch 10/03/20 10/03/20 10/03/20 13:33 14:19 14:59 RBC Hgb Hct MCV MCH MCHC RDW Seg Neuts % (Manual) Lymphocytes % (Manual) Monocytes % (Manual) Lymphocytes # (Manual) PT INR APTT Glucose POC Glucose 24 L 59 L 40 L Lactic Acid Iron Ammonia CK-MB (CK-2) CK-MB (CK-2) Rel Index Total Protein Albumin Salicylates Acetaminophen Crossmatch 10/03/20 15:26 RBC Hgb Hct MCV MCH MCHC RDW Seg Neuts % (Manual) Lymphocytes % (Manual) Monocytes % (Manual) Lymphocytes # (Manual) PT INR APTT Glucose POC Glucose 54 L Lactic Acid Iron Ammonia CK-MB (CK-2) CK-MB (CK-2) Rel Index Total Protein Albumin Salicylates Acetaminophen Crossmatch Assessment and Plan 1. Encephalopathy / CVA . Will order MRI Brain and MRI Cervical Spine mainly since both upper and lower extremity is affected . 2. EEG . 3. Follow up with results Dr. Devaughn MUÑOZ
[2020-10-03 15:51] LABS: Platelet Estimate Consistent w Auto
--- NOTE | 2020-10-03 16:50 | Event Note ---
Date: 10/03/20 This is the second visit after midnight Patient seen and examined On examination patient appeared to be in no apparent distress with generalized w eakness, unable to move right upper extremity 74 yo man who presented with AMS and left sided weakness. Patient was found by caregiver in his bed incontinent in feces/urine. CT of the head no acute finding but showed a cerebral atrophy with suspicious atrophy and atherosclerotic calcification within the distal right middle cerebral artery. Patient also noted with hemoglobin of 5.8, received 1 unit of packed RBC and ordered for tomorrow Neuro is consulted, Covid test is negative We will check stool for occult blood MRI brain ordered we will follow Will hold any oral medicine until cleared by speech or passes the bedside swallow eval Patient noted to have severe hypoglycemic, will place on D10W Follow H&H and BMP Continue current management plan as dictated in the HPI --It took me about 28 minutes to reevaluate and reassess this patient, discussed with RN/CM, review medical documents, lab results, imaging, medication list and placing order.
[2020-10-03] MEDS ORDERED: LIPASE 10,500/PROTEASE 25,000/AMYLASE 43,750 (UNITS) DR CAP FEEDTUBE PRN (16:51)
[2020-10-03] MEDS ORDERED: SODIUM BICARBONATE 325 MG TAB FEEDTUBE PRN (16:51)
[2020-10-03] MEDS: FOLIC ACID 1 MG TAB PO SCH (19:10)
[2020-10-03] MEDS: FAMOTIDINE 20 MG/2 ML INJ IV SCH ×2 (19:10→22:19)
[2020-10-03] MEDS: FERROUS SULFATE 325 MG TAB PO SCH (19:10)
[2020-10-03] MEDS: MULTIVITAMINS ,THERAPEUTIC TAB PO SCH (19:11)
[2020-10-03] MEDS: AZITHROMYCIN/NS 500 MG/250 ML 500 MG/250 ML BAG IV SCH (22:19)
[2020-10-03] MEDS: cefTRIAXone/NS 1 GM/50 ML 1 GM/50 ML BAG IV SCH (22:19)
[2020-10-04] MEDS: DEXTROSE 50% IN WATER (25GM) 50 ML SYRINGE IV PRN ×5 (01:18→18:15)
[2020-10-04 01:56] LABS: Hematocrit 28.3 % (35.5-45.6); Hemoglobin 9.6 gm/dl (11.8-15.2)
[2020-10-04 06:36] LABS: Hemoglobin 9.9 gm/dl (11.8-15.2); Mean Corpuscular HGB Conc 31 % (32-34); Mean Corpuscular Volume 76 fl (84-94)
[2020-10-04 06:39] LABS: Red Cell Distribution Width 31.3 % (13.2-15.2)
[2020-10-04 06:46] LABS: Alanine Aminotransferase 15 units/L (7-56); Albumin 2.6 g/dL (3.9-5); BUN/Creatinine Ratio 13; Blood Urea Nitrogen 12 mg/dL (9-20); Calcium 8.4 mg/dL (8.4-10.2); Hemolysis Index 21
[2020-10-04] MEDS: FAMOTIDINE 20 MG/2 ML INJ IV SCH ×2 (10:06→21:40)
[2020-10-04] MEDS: FOLIC ACID 1 MG TAB PO SCH (10:07)
[2020-10-04] MEDS: FERROUS SULFATE 325 MG TAB PO SCH (10:07)
[2020-10-04] MEDS: MULTIVITAMINS ,THERAPEUTIC TAB PO SCH (10:08)
--- NOTE | 2020-10-04 11:33 | Electrocardiograph Report ---
[facility] Test Date: 2020-10-04 Test Time: 07:58:53 Pat Name: JEREMIAS GUTIÉRREZ Department: Room: A486 1 Gender: M Legal Secretary: DMITRY : [id number] Requested By: BARB HURTADO Order Number: [id number] Reading MD: Sidney Bang Measurements Intervals [place] Rate: 104 P: -38 AK: 148 QRS: 32 QRSD: 91 T: -59 QT: 428 QTc: 562 Interpretive Statements Sinus tachycardia(P waves are indistinct). Atrial premature complex Low voltage, extremity leads Prolonged QT interval No previous ECG available for comparison Electronically Signed On 10-04-2020 11:32:55 EDT by Sidney Bang
--- NOTE | 2020-10-04 15:21 | Progress Note ---
Assessment and Plan 74 yo man who presented with AMS and left sided weakness. Patient was found by caregiver in his bed incontinent in feces/urine. Assessment and plan: -- Acute encephalopathy CT angio of the head that is a significant narrowing seen in both posterior cerebral arteries and no signs of large vessel CT of the head no acute finding but showed a cerebral atrophy with suspicious atrophy and atherosclerotic calcification within the distal right middle cerebral artery. MRI brain without any acute findings Neurology consulted, will follow EEG -cannot r/o acute seizure with postictal state --Left-sided hemiparesis with significant aphasia Placed on stroke protocol, neurology following, failed swallow eval MRI brain without any new findings, EEG ordered and pending Aspirin due to severe anemia, will initiate Lipitor when able to tolerate tube feeding -- Hypothermia, resolved Monitor body temperature Applied bed hugger -- Pulmonary infiltrate in right lung on CXR COVID-19 test is negative Likely secondary to pneumonia Start empiric antibiotics Rocephin and azithromycin -- Atherosclerotic cerebrovascular disease Safety and fall precaution at all times PT OT consult follow-up with recommendation for discharge placement --Severe anemia -possible GI bleed? Likely 2/2 to malnutrion-patient has no evidence of active bleeding and has normal PLT Monitor H&Hadmission H&H 6.7> 5.8 S/p 3 units of blood transfusion Iron and multivitamin supplement Check iron level, ordered stool for occult blood GI consulted -- Severe protein-calorie malnutrition bobbin sorter consult, failed swallow eval Order for Dobbhoff tube and Tube feeding --Persistent hypoglycemia, patient placed D10, will also initiate tube feeding -- DVT prophylaxis ACD hold Subcutaneous anticoagulant due to low H/H Daily clinical course: 10/03/20: CT of the head no acute finding but showed a cerebral atrophy with suspicious atrophy and atherosclerotic calcification within the distal right middle cerebral artery. Patient also noted with hemoglobin of 5.8, received 1 unit of packed RBC and ordered for tomorrow Neuro is consulted, Covid test is negative We will check stool for occult blood MRI brain ordered we will follow Will hold any oral medicine until cleared by speech or passes the bedside swallow eval Patient noted to have severe hypoglycemic, will place on D10W Follow H&H and BMP Continue current management plan as dictated in the HPI 10/04/20: no acute findings in MRI, pending EEG, s/p 3 units PRBC transfusion. follow speech eval, TF for now, h/h stable, GI consulted - follow recommendation. Subjective Date of service: 10/04/20 Interval history: Patient seen and examined. Medical records and medication list reviewed. No acute event overnight noted by the RN. Patient nonverbal with significant aphasia, failed swallow eval Discussed plan of care at bedside with patient's RN. Objective - Exam Narrative Exam: GENERAL: well-developed elderly -[place] male lying on bed appeared to be in no discomfort. HEENT: Normocephalic. Atraumatic. No conjunctival congestion or icterus. Patient has moist mucous membranes. NECK: Supple. Trachea midline. CHEST/LUNGS: Clear to auscultated bilaterally, breathing nonlabored. No wheezes crackles or rhonchi. HEART/CARDIOVASCULAR: Regular in rate and rhythm. S1 and S2 positive. ABDOMEN: Abdomen is soft, nontender. Patient has normal bowel sounds. SKIN: There is no rash. Warm and dry. NEURO: Left-sided hemiparesis with significant dysphagia. Able to move only right upper extremity MUSCULOSKELETAL: No joint effusion or tenderness. EXTRIMITY: No edema, no cyanosis or clubbing. PSYCH: Cooperative. - Constitutional Vitals: Vital Signs - 12hr 10/04/20 10/04/20 10/04/20 04:00 04:42 08:09 Temperature 97.3 F L 98.7 F Pulse Rate 101 H 106 H 103 H Respiratory 18 18 Rate Blood Pressure 148/117 131/102 O2 Sat by Pulse 100 100 Oximetry 10/04/20 10/04/20 10/04/20 10:00 11:45 14:00 Temperature 97.8 F Pulse Rate 102 H Respiratory 20 20 Rate Blood Pressure 133/100 O2 Sat by Pulse 96 100 99 Oximetry - Labs CBC & Chem 7: 10/04/20 22:33 10/05/20 05:00 Labs: Abnormal lab results 10/03/20 10/03/20 10/03/20 Range/Units 05:57 05:57 15:26 WBC (4.5-11.0) K/mm3 Hgb (11.8-15.2) gm/dl Hct (35.5-45.6) % MCV (84-94) fl MCH (28-32) pg MCHC (32-34) % RDW (13.2-15.2) % Lymphocytes % (Manual) 2.0 L (13.4-35.0) % Nucleated RBC % 1.0 H (0.0-0.9) % Seg Neutrophils # Man 8.6 H (1.8-7.7) K/mm3 Lymphocytes # (Manual) 0.2 L (1.2-5.4) K/mm3 Sodium (137-145) mmol/L Potassium (3.6-5.0) mmol/L Carbon Dioxide (22-30) mmol/L POC Glucose 54 L (70-105) mg/dL Albumin (3.9-5) g/dL Crossmatch See Detail 10/03/20 10/03/20 10/03/20 Range/Units 15:57 16:35 17:16 WBC (4.5-11.0) K/mm3 Hgb (11.8-15.2) gm/dl Hct (35.5-45.6) % MCV (84-94) fl MCH (28-32) pg MCHC (32-34) % RDW (13.2-15.2) % Lymphocytes % (Manual) (13.4-35.0) % Nucleated RBC % (0.0-0.9) % Seg Neutrophils # Man (1.8-7.7) K/mm3 Lymphocytes # (Manual) (1.2-5.4) K/mm3 Sodium (137-145) mmol/L Potassium (3.6-5.0) mmol/L Carbon Dioxide (22-30) mmol/L POC Glucose 45 L 42 L 41 L (70-105) mg/dL Albumin (3.9-5) g/dL Crossmatch 10/03/20 10/03/20 10/03/20 Range/Units 18:37 19:56 21:32 WBC (4.5-11.0) K/mm3 Hgb (11.8-15.2) gm/dl Hct (35.5-45.6) % MCV (84-94) fl MCH (28-32) pg MCHC (32-34) % RDW (13.2-15.2) % Lymphocytes % (Manual) (13.4-35.0) % Nucleated RBC % (0.0-0.9) % Seg Neutrophils # Man (1.8-7.7) K/mm3 Lymphocytes # (Manual) (1.2-5.4) K/mm3 Sodium (137-145) mmol/L Potassium (3.6-5.0) mmol/L Carbon Dioxide (22-30) mmol/L POC Glucose 46 L 57 L 65 L (70-105) mg/dL Albumin (3.9-5) g/dL Crossmatch 10/04/20 10/04/20 10/04/20 Range/Units 01:04 01:11 05:59 WBC 13.4 H (4.5-11.0) K/mm3 Hgb 9.6 L D 9.9 L (11.8-15.2) gm/dl Hct 28.3 L D 32.0 L (35.5-45.6) % MCV 76 L (84-94) fl MCH 24 L (28-32) pg MCHC 31 L (32-34) % RDW 31.3 H (13.2-15.2) % Lymphocytes % (Manual) (13.4-35.0) % Nucleated RBC % (0.0-0.9) % Seg Neutrophils # Man (1.8-7.7) K/mm3 Lymphocytes # (Manual) (1.2-5.4) K/mm3 Sodium (137-145) mmol/L Potassium (3.6-5.0) mmol/L Carbon Dioxide (22-30) mmol/L POC Glucose 51 L (70-105) mg/dL Albumin (3.9-5) g/dL Crossmatch 10/04/20 Range/Units 05:59 WBC (4.5-11.0) K/mm3 Hgb (11.8-15.2) gm/dl Hct (35.5-45.6) % MCV (84-94) fl MCH (28-32) pg MCHC (32-34) % RDW (13.2-15.2) % Lymphocytes % (Manual) (13.4-35.0) % Nucleated RBC % (0.0-0.9) % Seg Neutrophils # Man (1.8-7.7) K/mm3 Lymphocytes # (Manual) (1.2-5.4) K/mm3 Sodium 136 L (137-145) mmol/L Potassium 3.5 L (3.6-5.0) mmol/L Carbon Dioxide 19 L D (22-30) mmol/L POC Glucose (70-105) mg/dL Albumin 2.6 L (3.9-5) g/dL Crossmatch HEART Score - HEART Score Troponin: Troponin T < 0.010 ng/mL (0.00-0.029) 10/02/20 23:17
--- NOTE | 2020-10-04 15:22 | Magnetic Resonance Report ---
NONENHANCED MR SCAN OF THE BRAIN: INDICATION / CLINICAL INFORMATION: possible CVA. TECHNIQUE: Multiplanar, multisequence MR images of the brain obtained. COMPARISON: CT scan of the head from 10/02/2020 FINDINGS: BRAIN / INTRACRANIAL CONTENTS: No acute ischemia, acute hemorrhage, mass effect, midline shift, or hy drocephalus. Chronic lacunae in the basal ganglia bilaterally; confluent periventricular white matte r hyperintensity and deep hemispheric white matter lesions ([place] 1) due to chronic small vessel di sease; lateral ventricles and third ventricle are disproportionately prominent compared to high conve xity cortical sulci. Moderate dilatation of temporal horn tip seen. Cortical sulci in the vertex are effaced. Subarachnoid spaces more prominent in the inferior part of the brain. 2 considerations are n ormal pressure hydrocephalus and deep central involution. CRANIOCERVICAL JUNCTION: No significant abnormality. VASCULAR FLOW-VOIDS: No significant abnormality. ORBITS: No significant abnormality of visualized orbits. SINUSES / MASTOIDS: No significant abnormality of visualized sinuses and mastoid air cells. ADDITIONAL FINDINGS: None. IMPRESSION: 1. No acute focal parenchymal lesion in the brain Ventriculomegaly see the discussion above Signer Name: Dariana Gonzalez MD Signed: 10/04/2020 3:17 PM Workstation Name: [id number]
[2020-10-04 15:45] LABS: Hematocrit 31.8 % (35.5-45.6); Hemoglobin 10.1 gm/dl (11.8-15.2)
--- NOTE | 2020-10-04 15:49 | Event Note ---
Date: 10/04/20 pt seen and examined, chart reviewed, full consult dictated - pt presented w/ weakness and AMS noted anemic w/o obvious signs bleeding - stable h/h since transfusion - will attempt to contact family - follow h/h - no plans to scope at this time - will follow
--- NOTE | 2020-10-04 16:15 | XRay Report ---
XR abdomen 1V ap INDICATION / CLINICAL INFORMATION: dobboff placement COMPARISON: None available. FINDINGS/IMPRESSION: Weighted tip feeding tube projects in the stomach. Signer Name: Zain Morrell MD Signed: 10/04/2020 4:11 PM Workstation Name: [facility]
[2020-10-04] MEDS: PANTOPRAZOLE 40 MG INJ IV SCH (18:37)
[2020-10-04] MEDS: DEXTROSE 10% IN WATER 1,000 ML IV SCH (19:04)
[2020-10-04] MEDS: AZITHROMYCIN/NS 500 MG/250 ML 500 MG/250 ML BAG IV SCH (21:41)
[2020-10-04] MEDS: cefTRIAXone/NS 1 GM/50 ML 1 GM/50 ML BAG IV SCH (21:41)
[2020-10-04 23:07] LABS: Hematocrit 32.5 % (35.5-45.6); Hemoglobin 10.5 gm/dl (11.8-15.2)
[2020-10-04 23:26] LABS: Anisocytosis 3+; Giant Platelets Few; Hypochromasia 1+; Platelet Estimate Consistent w Auto; Target Cells 1+; Total Cells Counted 100
[2020-10-05 02:08] LABS: Platelet Count 211 K/mm3 (140-440)
--- NOTE | 2020-10-05 02:15 | XRay Report ---
Abdomen single view INDICATION: Abdominal pain IMPRESSION: Weighted enteric feeding tube projects in expected region of the mid stomach. Signer Name: Freddy Berg MD Signed: 10/05/2020 2:11 AM Workstation Name: [id number]
--- NOTE | 2020-10-05 03:53 | Consultation ---
DATE OF CONSULTATION: 10/04/2020 REFERRING PHYSICIAN: Dr. Yamileth Espinosa. HISTORY OF PRESENT ILLNESS: The patient is a 74-year-old black male who presented initially for left-sided weakness and altered mental status, now being seen by GI for anemia. Most of the history is per chart. The patient presented when he found incontinent with weakness. The patient subsequently was admitted and he has been evaluated for possible CVA or other neurological findings. On admission, the patient was noted to be very anemic with a hemoglobin and hematocrit of 6.7 and 21.8. GI was consulted to aid in management. Per chart and family, no obvious signs of GI blood loss including bright red blood per rectum, melena or hematemesis. No other specific complaints. PAST MEDICAL HISTORY: Reflux. MEDICATIONS: Reviewed and updated in the chart. ALLERGIES: No known drug allergies. SOCIAL HISTORY: No reported history of alcohol, tobacco, IV drug abuse. FAMILY HISTORY: Negative for colon cancer, IBD, or liver disease. REVIEW OF SYSTEMS: GENERAL: Reports some weakness. HEENT: No visual complaints or tinnitus. PULMONARY: Denies shortness of breath. CARDIOVASCULAR: Denies chest pain. GASTROINTESTINAL: Reports no complaints. All points of 13-point review of systems except for left-sided weakness, negative. PHYSICAL EXAMINATION: VITAL SIGNS: Temperature of 97.8, pulse of 100, respirations 20, blood pressure 133/90. GENERAL: Fairly thin black male, in no acute distress. HEENT: Pupils are round and reactive. PULMONARY: Rhonchi. CARDIOVASCULAR: Regular rate and rhythm, normal S1 and S2. ABDOMEN: Positive bowel sounds, soft. SKIN: No obvious rashes. LABORATORY DATA: Pertinent for white count of 13.4, hemoglobin and hematocrit 9.9 and 32.0, platelet count is pending. Chem-7 within normal limits. LFTs within normal limits. ASSESSMENT: A 74-year-old male presented with altered mental status and left-sided weakness, now being evaluated for possible stroke or other neurological event, noted to be anemic with no obvious signs of blood loss. Given the patient's acute event and that he has been transfused and hemoglobin has stayed above 9 for the last 48 hours, would want to consider a conservative approach. PLAN: 1. Neurological evaluation and management per primary team. 2. Follow hematocrit and transfuse as needed. 3. We will attempt to contact family members and discuss the case. 4. Further recommendation based on progress ____. TID: [id number] RECEIPT: [id number] JULITA/AVIS/OMER
[2020-10-05 05:57] LABS: Blood Urea Nitrogen 12 mg/dL (9-20); Calcium 9.3 mg/dL (8.4-10.2); Hemolysis Index 25
[2020-10-05 06:00] LABS: BUN/Creatinine Ratio 17
[2020-10-05 10:07] LABS: Hematocrit 30.5 % (35.5-45.6); Hemoglobin 9.8 gm/dl (11.8-15.2); Mean Corpuscular HGB Conc 32 % (32-34); Mean Corpuscular Volume 74 fl (84-94); Platelet Count 210 K/mm3 (140-440); Red Blood Count 4.12 M/mm3 (3.65-5.03)
[2020-10-05 10:10] LABS: Red Cell Distribution Width 31.6 % (13.2-15.2)
[2020-10-05] MEDS: FOLIC ACID 1 MG TAB PO SCH (10:33)
[2020-10-05] MEDS: MULTIVITAMINS ,THERAPEUTIC TAB PO SCH (10:33)
[2020-10-05] MEDS: FAMOTIDINE 20 MG/2 ML INJ IV SCH (10:33)
[2020-10-05] MEDS: FERROUS SULFATE 325 MG TAB PO SCH (10:33)
[2020-10-05] MEDS: PANTOPRAZOLE 40 MG INJ IV SCH (10:33)
--- NOTE | 2020-10-05 11:06 | Progress Note ---
Assessment and Plan Assessment and plan: 74 yo man who presented with AMS and left sided weakness. Patient was found by caregiver in his bed incontinent in feces/urine. Assessment and plan: -- Acute encephalopathy CT angio of the head that is a significant narrowing seen in both posterior cerebral arteries and no signs of large vessel CT of the head no acute finding but showed a cerebral atrophy with suspicious atrophy and atherosclerotic calcification within the distal right middle cerebral artery. MRI brain without any acute findings Neurology consulted, will follow EEG -cannot r/o acute seizure with postictal state --Left-sided hemiparesis with significant aphasia Placed on stroke protocol, neurology following, failed swallow eval MRI brain without any new findings, EEG ordered and pending Aspirin due to severe anemia, will initiate Lipitor when able to tolerate tube feeding -- Hypothermia, resolved Monitor body temperature Applied bed hugger -- Pulmonary infiltrate in right lung on CXR COVID-19 test is negative Likely secondary to pneumonia Start empiric antibiotics Rocephin and azithromycin -- Atherosclerotic cerebrovascular disease Safety and fall precaution at all times PT OT consult follow-up with recommendation for discharge placement --Severe anemia -possible GI bleed? 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 Patient also noted with hemoglobin of 5.8, received 1 unit of packed RBC and ordered for tomorrow Neuro is consulted, Covid test is negative We will check stool for occult blood MRI brain ordered we will follow Will hold any oral medicine until cleared by speech or passes the bedside swallow eval Patient noted to have severe hypoglycemic, will place on D10W Follow H&H and BMP Continue current management plan as dictated in the HPI 10/04/20: no acute findings in MRI, pending EEG, s/p 3 units PRBC transfusion. follow speech eval, TF for now, h/h stable, GI consulted - follow recommendation. 10/05/20 Patient with acute encephalopathy, severe anemia s/p PRBC transfusion. GI following. Hgb 9.8 today. Will repeat in am. Left sided weakness. MRI negative for stroke. Neurology following. History Interval history: Altered mental status Hospitalist Physical - Physical exam Narrative exam: Gen:Not in acute distress, lying in bed, HEENT:Normocephalic, atraumatic Neck: supple, no JVD Lungs: Clear to auscultation bilaterally, no wheeze Heart:S1 and S2 reg, no murmurs, rubs or gallop Abd:Soft, non tender, non distended, normal bowel sounds Ext:No edema. no clubbing, no cyanosis Neuro: Awake, - Constitutional Vitals: Temp Pulse Resp BP Pulse Ox 97.8 F 69 18 102/75 100 10/05/20 08:05 10/05/20 08:05 10/05/20 08:05 10/05/20 08:05 10/05/20 08:05 HEART Score - HEART Score Troponin: Troponin T < 0.010 ng/mL (0.00-0.029) 10/02/20 23:17 Results - Labs CBC & Chem 7: 10/05/20 09:42 10/05/20 05:00 Labs: Laboratory Last Values WBC 6.2 K/mm3 (4.5-11.0) 10/05/20 09:42 RBC 4.12 M/mm3 (3.65-5.03) 10/05/20 09:42 Hgb 9.8 gm/dl (11.8-15.2) L 10/05/20 09:42 Hct 30.5 % (35.5-45.6) L 10/05/20 09:42 MCV 74 fl (84-94) L 10/05/20 09:42 MCH 24 pg (28-32) L 10/05/20 09:42 MCHC 32 % (32-34) 10/05/20 09:42 RDW 31.6 % (13.2-15.2) H 10/05/20 09:42 Plt Count 210 K/mm3 (140-440) 10/05/20 09:42 Add Manual Diff Complete 10/04/20 05:59 Total Counted 100 10/04/20 05:59 Seg Neuts % (Manual) 86.0 % (40.0-70.0) H 10/04/20 05:59 Band Neutrophils % 1.0 % 10/03/20 05:57 Lymphocytes % (Manual) 6.0 % (13.4-35.0) L 10/04/20 05:59 Monocytes % (Manual) 8.0 % (0.0-7.3) H 10/04/20 05:59 Nucleated RBC % 2.0 % (0.0-0.9) H 10/04/20 05:59 Seg Neutrophils # Man 11.5 K/mm3 (1.8-7.7) H 10/04/20 05:59 Band Neutrophils # 0.0 K/mm3 10/04/20 05:59 Lymphocytes # (Manual) 0.8 K/mm3 (1.2-5.4) L 10/04/20 05:59 Abs React Lymphs (Man) 0.0 K/mm3 10/04/20 05:59 Monocytes # (Manual) 1.1 K/mm3 (0.0-0.8) H 10/04/20 05:59 Eosinophils # (Manual) 0.0 K/mm3 (0.0-0.4) 10/04/20 05:59 Basophils # (Manual) 0.0 K/mm3 (0.0-0.1) 10/04/20 05:59 Metamyelocytes # 0.0 K/mm3 10/04/20 05:59 Myelocytes # 0.0 K/mm3 10/04/20 05:59 Promyelocytes # 0.0 K/mm3 10/04/20 05:59 Blast Cells # 0.0 K/mm3 10/04/20 05:59 WBC Morphology Not Reportable 10/04/20 05:59 Hypersegmented Neuts Not Reportable 10/04/20 05:59 Hyposegmented Neuts Not Reportable 10/04/20 05:59 Hypogranular Neuts Not Reportable 10/04/20 05:59 Smudge Cells Not Reportable 10/04/20 05:59 Toxic Granulation Not Reportable 10/04/20 05:59 Toxic Vacuolation Not Reportable 10/04/20 05:59 Dohle Bodies Not Reportable 10/04/20 05:59 Pelger-Huet Anomaly Not Reportable 10/04/20 05:59 Andrés Rods Not Reportable 10/04/20 05:59 Platelet Estimate Consistent w auto 10/04/20 05:59 Clumped Platelets Not Reportable 10/04/20 05:59 Plt Clumps, EDTA Not Reportable 10/04/20 05:59 Large Platelets Not Reportable 10/04/20 05:59 Giant Platelets Few 10/04/20 05:59 Platelet Satelliting Not Reportable 10/04/20 05:59 Plt Morphology Comment Not Reportable 10/04/20 05:59 RBC Morphology Not Reportable 10/04/20 05:59 Dimorphic RBCs Not Reportable 10/04/20 05:59 Polychromasia Not Reportable 10/04/20 05:59 Hypochromasia 1+ 10/04/20 05:59 Poikilocytosis Not Reportable 10/04/20 05:59 Anisocytosis 3+ 10/04/20 05:59 Microcytosis 1+ 10/04/20 05:59 Macrocytosis Not Reportable 10/04/20 05:59 Spherocytes Not Reportable 10/04/20 05:59 Pappenheimer Bodies Not Reportable 10/04/20 05:59 Sickle Cells Not Reportable 10/04/20 05:59 Target Cells 1+ 10/04/20 05:59 Tear Drop Cells Not Reportable 10/04/20 05:59 Ovalocytes Not Reportable 10/04/20 05:59 Helmet Cells Not Reportable 10/04/20 05:59 [place] Bodies Not Reportable 10/04/20 05:59 [place] Rings Not Reportable 10/04/20 05:59 Norbert Cells Not Reportable 10/04/20 05:59 Bite Cells Not Reportable 10/04/20 05:59 Crenated Cell Not Reportable 10/04/20 05:59 Elliptocytes Not Reportable 10/04/20 05:59 Acanthocytes (Spur) Not Reportable 10/04/20 05:59 Rouleaux Not Reportable 10/04/20 05:59 Hemoglobin C Crystals Not Reportable 10/04/20 05:59 Schistocytes Not Reportable 10/04/20 05:59 Malaria parasites Not Reportable 10/04/20 05:59 Dereck Bodies Not Reportable 10/04/20 05:59 Hem Pathologist Commnt No 10/04/20 05:59 PT 20.8 Sec. (12.2-14.9) H 10/02/20 23:17 INR 1.74 (0.87-1.13) H 10/02/20 23:17 APTT 57.6 Sec. (24.2-36.6) H 10/02/20 23:17 Thrombin Time 17.8 Sec. (15.1-19.6) 10/02/20 23:17 Sodium 132 mmol/L (137-145) L 10/05/20 05:00 Potassium 3.5 mmol/L (3.6-5.0) L 10/05/20 05:00 Chloride 101.6 mmol/L (98-107) 10/05/20 05:00 Carbon Dioxide 19 mmol/L (22-30) L 10/05/20 05:00 Anion Gap 15 mmol/L 10/05/20 05:00 BUN 12 mg/dL (9-20) 10/05/20 05:00 Creatinine 0.7 mg/dL (0.8-1.3) L 10/05/20 05:00 Estimated GFR > 60 ml/min 10/05/20 05:00 BUN/Creatinine Ratio 17 % 10/05/20 05:00 Glucose 89 mg/dL (75-100) 10/05/20 05:00 POC Glucose 113 mg/dL (70-105) H 10/05/20 04:43 Hemoglobin A1c 5.2 % (4-6) 10/03/20 05:57 Lactic Acid 1.50 mmol/L (0.7-2.0) 10/03/20 04:43 Calcium 9.3 mg/dL (8.4-10.2) 10/05/20 05:00 Iron 42 ug/dL (49-181) L 10/03/20 05:57 TIBC 305 mcg/dL (250-450) 10/03/20 05:57 Total Bilirubin 0.60 mg/dL (0.1-1.2) 10/04/20 05:59 AST 26 units/L (5-40) 10/04/20 05:59 ALT 15 units/L (7-56) 10/04/20 05:59 Alkaline Phosphatase 105 units/L (35-129) 10/04/20 05:59 Ammonia 22.0 umol/L (25-60) L 10/02/20 23:17 Total Creatine Kinase 88 units/L (55-170) 10/02/20 23:17 CK-MB (CK-2) 7.5 ng/mL (0.0-4.0) H 10/02/20 23:17 CK-MB (CK-2) Rel Index 8.5 (0-4) H 10/02/20 23:17 Troponin T < 0.010 ng/mL (0.00-0.029) 10/02/20 23:17 Total Protein 6.4 g/dL (6.3-8.2) 10/04/20 05:59 Albumin 2.6 g/dL (3.9-5) L 10/04/20 05:59 Albumin/Globulin Ratio 0.7 % 10/04/20 05:59 TSH 2.060 mlU/mL (0.270-4.200) 10/02/20 23:17 Salicylates < 0.3 mg/dL (2.8-20.0) L 10/02/20 23:17 Acetaminophen 5.0 ug/mL (10.0-30.0) L 10/02/20 23:17 Plasma/Serum Alcohol < 0.01 % (0-0.07) 10/02/20 23:17 Coronavirus (PCR) Negative (Negative) 10/03/20 08:41 Blood Type O POSITIVE 10/03/20 05:57 Antibody Screen Negative 10/03/20 05:57 Crossmatch See Detail 10/03/20 05:57 Microbiology: Microbiology 10/02/20 23:51 Peripheral/Venous Blood Culture - Preliminary NO GROWTH AFTER 48 HOURS 10/02/20 23:17 Peripheral/Venous Blood Culture - Preliminary NO GROWTH AFTER 48 HOURS Jackson/IV: Voiding Method Indwelling Catheter Active Medications - Current Medications Current Medications: Generic Name Dose Route Start Last Admin Trade Name Freq PRN Reason Stop Dose Admin Acetaminophen 650 mg 10/03/20 02:10 Acetaminophen 325 Mg Tab PO Q4H PRN Pain MILD(1-3)/Fever >100.5/ROMERO Al Hydrox/Mg Hydrox/Simethicone 30 ml 10/03/20 02:10 Alum-Mag Hydroxide-Simethicone [phone]/5ml Oral Liqd 30 Ml PO Q4H PRN Indigestion Lipase/Protease/Amylase 1 each 10/03/20 16:51 Lipase 10,500/Protease 25,000/Amylase 43,750 (Units) Dr Reis FEEDTUBE PRN PRN For Clogged Feeding Tube Dextrose 0 ml 10/02/20 22:49 10/04/20 18:15 Dextrose 50% In Water (25gm) 50 Ml Syringe IV 15 ml Q30MIN PRN Administration Hypoglycemia Protocol Ferrous Sulfate 325 mg 10/03/20 10:00 10/05/20 10:33 Ferrous Sulfate 325 Mg Tab PO 325 mg QDAY JOSE Administration Folic Acid 1 mg 10/03/20 10:00 10/05/20 10:33 Folic Acid 1 Mg Tab PO 1 mg QDAY JOSE Administration Ceftriaxone Sodium 1 gm in 50 mls @ 100 mls/hr 10/03/20 22:00 10/04/20 21:41 Rocephin/Ns 1 Gm/50 Ml IV 10/06/20 22:29 100 mls/hr QHS JOSE Administration Protocol Azithromycin 500 mg in 250 mls @ 250 mls/hr 10/03/20 22:00 10/04/20 21:41 Zithromax/Ns IV 10/06/20 22:59 250 mls/hr QHS JOSE Administration Dextrose 1,000 mls @ 100 mls/hr 10/03/20 18:00 10/04/20 19:04 D10w IV 100 mls/hr DIRECT JOSE Administration Magnesium Hydroxide 30 ml 10/03/20 02:10 Magnesium Hydroxide (Mom) Oral Liqd Udc PO Q4H PRN Constipation Metoclopramide HCl 10 mg 10/03/20 02:10 Metoclopramide 10 Mg/2 Ml Inj IV Q6H PRN Nausea And Vomiting Multivitamins 1 each 10/03/20 10:00 10/05/20 10:33 Multivitamins ,Therapeutic Tab PO 1 each QDAY JOSE Administration Ondansetron HCl 4 mg 10/03/20 02:10 Ondansetron 4 Mg/2 Ml Inj IV Q8H PRN Nausea And Vomiting Oxycodone/Acetaminophen 1 tab 10/03/20 02:10 Oxycodone /Acetaminophen 5-325mg Tab PO Q6H PRN Pain, Moderate (4-6) Pantoprazole Sodium 40 mg 10/04/20 15:00 10/05/20 10:33 Pantoprazole 40 Mg Inj IV 40 mg QDAY JOSE Administration Promethazine HCl 25 mg 10/03/20 02:10 Promethazine 25 Mg Rect Supp IA Q6H PRN N/V IF NPO AND NO IV ACCESS Senna 8.6 mg 10/03/20 02:10 Sennosides 8.6 Mg Tab PO Q12HR PRN Constipation Simple Syrup 15 ml 10/03/20 16:51 Simple Syrup 15 Ml FEEDTUBE PRN PRN Hypoglycemia Simple Syrup 30 ml 10/03/20 16:51 Simple Syrup 15 Ml FEEDTUBE PRN PRN Hypoglycemia Sodium Bicarbonate 325 mg 10/03/20 16:51 Sodium Bicarbonate 325 Mg Tab FEEDTUBE PRN PRN For Clogged Feeding Tube Sodium Chloride 10 ml 10/03/20 10:00 10/04/20 21:42 Sodium Chloride 0.9% 10 Ml Flush Syringe IV 10 ml BID JOSE Administration Nutrition/Malnutrition Assess - Dietary Evaluation Nutrition/Malnutrition Findings: Nutrition Notes Start: 10/03/20 08:51 Freq: Status: Active Protocol: Document 10/04/20 11:47 (Rec: 10/04/20 12:03 [id number]) Nutrition Notes Need for Assessment generated from: MD Order Initial or Follow up Assessment Current Diagnosis Diabetes Other Pertinent Diagnosis AMS, hypothermia, pneu, anemia , atherosclerotic cerebrovascular disease Current Diet NPO Labs/Tests Na 136 POC BG 51-79 Pertinent Medications Reviewed Height 5 ft 10 in Weight 83.9 kg Brogue Body Weight (kg) 75.45 BMI 26.5 Weight Status Overweight Subjective/Other Information MD consult for TF. Per RN, pt does not have dobhoff yet and is awaiting swallow eval by LEASING CONSULTANT. Burn Absent Trauma Absent Minimum of two criteria No #1 Nutrition Diagnosis Swallowing difficulty Etiology possible CVA As Evidenced by Signs and Symptoms pt NPO due to aspiration risk and poor swallow function Is patient on ventilator? No Is Patient Ambulatory and/or Out of Bed No REE-([facility]-confined to bed) [phone] Calculation Used for Recommendations [facility] Additional Notes Protein: (1-1.2g/kg) 84-101g Fluid: 1 ml/kcal Nutrition Intervention Change Diet Order: Start TF as able Nutrition Support: Jevity 1.2 at 65 ml/hr Flush 100 ml q4h Kcal 1,872 Protein (gm) 87 Fluid (mL) 1,259 Goal #1 Start TF Goal #2 Meet at least 75% of protein and energy needs via TF Anticipated Discharge Needs: Unable to determine at this time Follow-Up By: 10/06/20 Additional Comments F/U: dobhoff placement and TF start/tolerance, BG
[2020-10-05] MEDS: DEXTROSE 10% IN WATER 1,000 ML IV SCH (16:11)
--- NOTE | 2020-10-05 16:33 | Gastroenterology Progress Note ---
Assessment and Plan GI: noted anemia when presented w/ AMS and signs of possible CVA - h/h stable after transfusion - discussed w/ daughter, pt has never had a colonoscopy or other GI evaluation at this time - given current other med issues would treat conservative for now - follow h/h, transfuse as needed - no plans to scope at this time unless signs active bleeding, consider as outpt - other issues pre primary team - will follow Subjective Date of service: 10/05/20 Interval history: - no specific GI complaints overnight including signs bleeding Objective - Constitutional Vitals: Temp Pulse Resp BP Pulse Ox 98.7 F 103 H 18 107/79 100 10/05/20 11:22 10/05/20 11:22 10/05/20 12:00 10/05/20 11:22 10/05/20 12:00 General appearance: no acute distress - EENT Eyes: PERRL - Respiratory Respiratory: bilateral: CTA - Cardiovascular Rhythm: regular Heart Sounds: Present: S1 & S2 - Gastrointestinal General gastrointestinal: Present: soft, non-tender, non-distended - Labs CBC & Chem 7: 10/05/20 09:42 10/05/20 05:00 Labs: Laboratory Results - last 24 hr 10/04/20 10/04/20 10/04/20 05:59 16:28 20:22 WBC RBC Hgb Hct MCV MCH MCHC RDW Plt Count 211 Add Manual Diff Complete Total Counted 100 Seg Neuts % (Manual) 86.0 H Lymphocytes % (Manual) 6.0 L Monocytes % (Manual) 8.0 H Nucleated RBC % 2.0 H Seg Neutrophils # Man 11.5 H Band Neutrophils # 0.0 Lymphocytes # (Manual) 0.8 L Abs React Lymphs (Man) 0.0 Monocytes # (Manual) 1.1 H Eosinophils # (Manual) 0.0 Basophils # (Manual) 0.0 Metamyelocytes # 0.0 Myelocytes # 0.0 Promyelocytes # 0.0 Blast Cells # 0.0 WBC Morphology Not Reportable Hypersegmented Neuts Not Reportable Hyposegmented Neuts Not Reportable Hypogranular Neuts Not Reportable Smudge Cells Not Reportable Toxic Granulation Not Reportable Toxic Vacuolation Not Reportable Dohle Bodies Not Reportable Pelger-Huet Anomaly Not Reportable Andrés Rods Not Reportable Platelet Estimate Consistent w auto Clumped Platelets Not Reportable Plt Clumps, EDTA Not Reportable Large Platelets Not Reportable Giant Platelets Few Platelet Satelliting Not Reportable Plt Morphology Comment Not Reportable RBC Morphology Not Reportable Dimorphic RBCs Not Reportable Polychromasia Not Reportable Hypochromasia 1+ Poikilocytosis Not Reportable Anisocytosis 3+ Microcytosis 1+ Macrocytosis Not Reportable Spherocytes Not Reportable Pappenheimer Bodies Not Reportable Sickle Cells Not Reportable Target Cells 1+ Tear Drop Cells Not Reportable Ovalocytes Not Reportable Helmet Cells Not Reportable [place] Bodies Not Reportable [place] Rings Not Reportable [place] Cells Not Reportable Bite Cells Not Reportable Crenated Cell Not Reportable Elliptocytes Not Reportable Acanthocytes (Spur) Not Reportable Rouleaux Not Reportable Hemoglobin C Crystals Not Reportable Schistocytes Not Reportable Malaria parasites Not Reportable Dereck Bodies Not Reportable Hem Pathologist Commnt No Sodium Potassium Chloride Carbon Dioxide Anion Gap BUN Creatinine Estimated GFR BUN/Creatinine Ratio Glucose POC Glucose 66 L 97 Calcium 10/04/20 10/04/20 10/05/20 22:33 23:27 04:43 WBC RBC Hgb 10.5 L Hct 32.5 L MCV MCH MCHC RDW Plt Count Add Manual Diff Total Counted Seg Neuts % (Manual) Lymphocytes % (Manual) Monocytes % (Manual) Nucleated RBC % Seg Neutrophils # Man Band Neutrophils # Lymphocytes # (Manual) Abs React Lymphs (Man) Monocytes # (Manual) Eosinophils # (Manual) Basophils # (Manual) Metamyelocytes # Myelocytes # Promyelocytes # Blast Cells # WBC Morphology Hypersegmented Neuts Hyposegmented Neuts Hypogranular Neuts Smudge Cells Toxic Granulation Toxic Vacuolation Dohle Bodies Pelger-Huet Anomaly Andrés Rods Platelet Estimate Clumped Platelets Plt Clumps, EDTA Large Platelets Giant Platelets Platelet Satelliting Plt Morphology Comment RBC Morphology Dimorphic RBCs Polychromasia Hypochromasia Poikilocytosis Anisocytosis Microcytosis Macrocytosis Spherocytes Pappenheimer Bodies Sickle Cells Target Cells Tear Drop Cells Ovalocytes Helmet Cells [place] Bodies [place] Rings Norbert Cells Bite Cells Crenated Cell Elliptocytes Acanthocytes (Spur) Rouleaux Hemoglobin C Crystals Schistocytes Malaria parasites Dereck Bodies Hem Pathologist Commnt Sodium Potassium Chloride Carbon Dioxide Anion Gap BUN Creatinine Estimated GFR BUN/Creatinine Ratio Glucose POC Glucose 99 113 H Calcium 10/05/20 10/05/20 10/05/20 05:00 09:42 11:57 WBC 6.2 RBC 4.12 Hgb 9.8 L Hct 30.5 L MCV 74 L MCH 24 L MCHC 32 RDW 31.6 H Plt Count 210 Add Manual Diff Total Counted Seg Neuts % (Manual) Lymphocytes % (Manual) Monocytes % (Manual) Nucleated RBC % Seg Neutrophils # Man Band Neutrophils # Lymphocytes # (Manual) Abs React Lymphs (Man) Monocytes # (Manual) Eosinophils # (Manual) Basophils # (Manual) Metamyelocytes # Myelocytes # Promyelocytes # Blast Cells # WBC Morphology Hypersegmented Neuts Hyposegmented Neuts Hypogranular Neuts Smudge Cells Toxic Granulation Toxic Vacuolation Dohle Bodies Pelger-Huet Anomaly Andrés Rods Platelet Estimate Clumped Platelets Plt Clumps, EDTA Large Platelets Giant Platelets Platelet Satelliting Plt Morphology Comment RBC Morphology Dimorphic RBCs Polychromasia Hypochromasia Poikilocytosis Anisocytosis Microcytosis Macrocytosis Spherocytes Pappenheimer Bodies Sickle Cells Target Cells Tear Drop Cells Ovalocytes Helmet Cells [place] Bodies [place] Rings [place] Cells Bite Cells Crenated Cell Elliptocytes Acanthocytes (Spur) Rouleaux Hemoglobin C Crystals Schistocytes Malaria parasites Dereck Bodies Hem Pathologist Commnt Sodium 132 L Potassium 3.5 L Chloride 101.6 Carbon Dioxide 19 L Anion Gap 15 BUN 12 Creatinine 0.7 L Estimated GFR > 60 BUN/Creatinine Ratio 17 Glucose 89 POC Glucose 129 H Calcium 9.3
[2020-10-05] MEDS: cefTRIAXone/NS 1 GM/50 ML 1 GM/50 ML BAG IV SCH (21:21)
[2020-10-05] MEDS: AZITHROMYCIN/NS 500 MG/250 ML 500 MG/250 ML BAG IV SCH (22:10)
[2020-10-06] MEDS: DEXTROSE 10% IN WATER 1,000 ML IV SCH ×2 (04:12→15:29)
[2020-10-06 06:35] LABS: Hematocrit 30.1 % (35.5-45.6); Hemoglobin 9.4 gm/dl (11.8-15.2); Mean Corpuscular HGB Conc 31 % (32-34); Mean Corpuscular Volume 76 fl (84-94); Platelet Count 191 K/mm3 (140-440); Red Blood Count 3.99 M/mm3 (3.65-5.03)
[2020-10-06 06:39] LABS: Blood Urea Nitrogen 14 mg/dL (9-20); Calcium 9.2 mg/dL (8.4-10.2); Hemolysis Index 45
[2020-10-06 06:47] LABS: Red Cell Distribution Width 31.1 % (13.2-15.2)
[2020-10-06 06:58] LABS: BUN/Creatinine Ratio 23
--- NOTE | 2020-10-06 08:34 | Progress Note ---
Assessment and Plan Assessment and plan: 74 yo man who presented with AMS and left sided weakness. Patient was found by caregiver in his bed incontinent in feces/urine. Assessment and plan: -- Acute encephalopathy CT angio of the head that is a significant narrowing seen in both posterior cerebral arteries and no signs of large vessel CT of the head no acute finding but showed a cerebral atrophy with suspicious atrophy and atherosclerotic calcification within the distal right middle cerebral artery. MRI brain without any acute findings Neurology consulted, will follow EEG -cannot r/o acute seizure with postictal state --Left-sided hemiparesis with significant aphasia Placed on stroke protocol, neurology following, failed swallow eval MRI brain without any new findings, EEG ordered and pending Aspirin due to severe anemia, will initiate Lipitor when able to tolerate tube feeding -- Hypothermia, resolved Monitor body temperature Applied bed hugger -- Pulmonary infiltrate in right lung on CXR COVID-19 test is negative Likely secondary to pneumonia Start empiric antibiotics Rocephin and azithromycin -- Atherosclerotic cerebrovascular disease Safety and fall precaution at all times PT OT consult follow-up with recommendation for discharge placement --Severe anemia -possible GI bleed? 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 Patient also noted with hemoglobin of 5.8, received 1 unit of packed RBC and ordered for tomorrow Neuro is consulted, Covid test is negative We will check stool for occult blood MRI brain ordered we will follow Will hold any oral medicine until cleared by speech or passes the bedside swallow eval Patient noted to have severe hypoglycemic, will place on D10W Follow H&H and BMP Continue current management plan as dictated in the HPI 10/04/20: no acute findings in MRI, pending EEG, s/p 3 units PRBC transfusion. follow speech eval, TF for now, h/h stable, GI consulted - follow recommendation. 10/05/20 Patient with acute encephalopathy, severe anemia s/p PRBC transfusion. GI following. Hgb 9.8 today. Will repeat in am. Left sided weakness. MRI negative for stroke. Neurology following. 10/06/20 Patient with encephalopathy, severe anemia s/p PRBC transfusion. Hgb 9.4 today. Patient has left sided weakness but MRI neg. Patient needs PEG tube. Will talk with family. Hypokalemia. Replace Q6h X 2. Check Mg History Interval history: Altered mental status Hospitalist Physical - Physical exam Narrative exam: Gen:Not in acute distress, lying in bed, HEENT:Normocephalic, atraumatic Neck: supple, no JVD Lungs: Clear to auscultation bilaterally, no wheeze Heart:S1 and S2 reg, no murmurs, rubs or gallop Abd:Soft, non tender, non distended, normal bowel sounds Ext:No edema. no clubbing, no cyanosis Neuro: Awake, - Constitutional Vitals: Temp Pulse Resp BP Pulse Ox 97.4 F L 60 20 118/79 100 10/06/20 03:30 10/06/20 03:30 10/06/20 03:30 10/06/20 03:30 10/06/20 03:30 HEART Score - HEART Score Troponin: Troponin T < 0.010 ng/mL (0.00-0.029) 10/02/20 23:17 Results - Labs CBC & Chem 7: 10/06/20 05:07 10/06/20 05:07 Labs: Laboratory Last Values WBC 5.5 K/mm3 (4.5-11.0) 10/06/20 05:07 RBC 3.99 M/mm3 (3.65-5.03) 10/06/20 05:07 Hgb 9.4 gm/dl (11.8-15.2) L 10/06/20 05:07 Hct 30.1 % (35.5-45.6) L 10/06/20 05:07 MCV 76 fl (84-94) L 10/06/20 05:07 MCH 24 pg (28-32) L 10/06/20 05:07 MCHC 31 % (32-34) L 10/06/20 05:07 RDW 31.1 % (13.2-15.2) H 10/06/20 05:07 Plt Count 191 K/mm3 (140-440) 10/06/20 05:07 Add Manual Diff Complete 10/04/20 05:59 Total Counted 100 10/04/20 05:59 Seg Neuts % (Manual) 86.0 % (40.0-70.0) H 10/04/20 05:59 Band Neutrophils % 1.0 % 10/03/20 05:57 Lymphocytes % (Manual) 6.0 % (13.4-35.0) L 10/04/20 05:59 Monocytes % (Manual) 8.0 % (0.0-7.3) H 10/04/20 05:59 Nucleated RBC % 2.0 % (0.0-0.9) H 10/04/20 05:59 Seg Neutrophils # Man 11.5 K/mm3 (1.8-7.7) H 10/04/20 05:59 Band Neutrophils # 0.0 K/mm3 10/04/20 05:59 Lymphocytes # (Manual) 0.8 K/mm3 (1.2-5.4) L 10/04/20 05:59 Abs React Lymphs (Man) 0.0 K/mm3 10/04/20 05:59 Monocytes # (Manual) 1.1 K/mm3 (0.0-0.8) H 10/04/20 05:59 Eosinophils # (Manual) 0.0 K/mm3 (0.0-0.4) 10/04/20 05:59 Basophils # (Manual) 0.0 K/mm3 (0.0-0.1) 10/04/20 05:59 Metamyelocytes # 0.0 K/mm3 10/04/20 05:59 Myelocytes # 0.0 K/mm3 10/04/20 05:59 Promyelocytes # 0.0 K/mm3 10/04/20 05:59 Blast Cells # 0.0 K/mm3 10/04/20 05:59 WBC Morphology Not Reportable 10/04/20 05:59 Hypersegmented Neuts Not Reportable 10/04/20 05:59 Hyposegmented Neuts Not Reportable 10/04/20 05:59 Hypogranular Neuts Not Reportable 10/04/20 05:59 Smudge Cells Not Reportable 10/04/20 05:59 Toxic Granulation Not Reportable 10/04/20 05:59 Toxic Vacuolation Not Reportable 10/04/20 05:59 Dohle Bodies Not Reportable 10/04/20 05:59 Pelger-Huet Anomaly Not Reportable 10/04/20 05:59 Andrés Rods Not Reportable 10/04/20 05:59 Platelet Estimate Consistent w auto 10/04/20 05:59 Clumped Platelets Not Reportable 10/04/20 05:59 Plt Clumps, EDTA Not Reportable 10/04/20 05:59 Large Platelets Not Reportable 10/04/20 05:59 Giant Platelets Few 10/04/20 05:59 Platelet Satelliting Not Reportable 10/04/20 05:59 Plt Morphology Comment Not Reportable 10/04/20 05:59 RBC Morphology Not Reportable 10/04/20 05:59 Dimorphic RBCs Not Reportable 10/04/20 05:59 Polychromasia Not Reportable 10/04/20 05:59 Hypochromasia 1+ 10/04/20 05:59 Poikilocytosis Not Reportable 10/04/20 05:59 Anisocytosis 3+ 10/04/20 05:59 Microcytosis 1+ 10/04/20 05:59 Macrocytosis Not Reportable 10/04/20 05:59 Spherocytes Not Reportable 10/04/20 05:59 Pappenheimer Bodies Not Reportable 10/04/20 05:59 Sickle Cells Not Reportable 10/04/20 05:59 Target Cells 1+ 10/04/20 05:59 Tear Drop Cells Not Reportable 10/04/20 05:59 Ovalocytes Not Reportable 10/04/20 05:59 Helmet Cells Not Reportable 10/04/20 05:59 [place] Bodies Not Reportable 10/04/20 05:59 Jessie Rings Not Reportable 10/04/20 05:59 Norbert Cells Not Reportable 10/04/20 05:59 Bite Cells Not Reportable 10/04/20 05:59 Crenated Cell Not Reportable 10/04/20 05:59 Elliptocytes Not Reportable 10/04/20 05:59 Acanthocytes (Spur) Not Reportable 10/04/20 05:59 Rouleaux Not Reportable 10/04/20 05:59 Hemoglobin C Crystals Not Reportable 10/04/20 05:59 Schistocytes Not Reportable 10/04/20 05:59 Malaria parasites Not Reportable 10/04/20 05:59 Dereck Bodies Not Reportable 10/04/20 05:59 Hem Pathologist Commnt No 10/04/20 05:59 PT 20.8 Sec. (12.2-14.9) H 10/02/20 23:17 INR 1.74 (0.87-1.13) H 10/02/20 23:17 APTT 57.6 Sec. (24.2-36.6) H 10/02/20 23:17 Thrombin Time 17.8 Sec. (15.1-19.6) 10/02/20 23:17 Sodium 133 mmol/L (137-145) L 10/06/20 05:07 Potassium 3.5 mmol/L (3.6-5.0) L 10/06/20 05:07 Chloride 100.6 mmol/L (98-107) 10/06/20 05:07 Carbon Dioxide 21 mmol/L (22-30) L 10/06/20 05:07 Anion Gap 15 mmol/L 10/06/20 05:07 BUN 14 mg/dL (9-20) 10/06/20 05:07 Creatinine 0.6 mg/dL (0.8-1.3) L 10/06/20 05:07 Estimated GFR > 60 ml/min 10/06/20 05:07 BUN/Creatinine Ratio 23 % 10/06/20 05:07 Glucose 105 mg/dL (75-100) H 10/06/20 05:07 POC Glucose 105 mg/dL (70-105) 10/06/20 07:45 Hemoglobin A1c 5.2 % (4-6) 10/03/20 05:57 Lactic Acid 1.50 mmol/L (0.7-2.0) 10/03/20 04:43 Calcium 9.2 mg/dL (8.4-10.2) 10/06/20 05:07 Iron 42 ug/dL (49-181) L 10/03/20 05:57 TIBC 305 mcg/dL (250-450) 10/03/20 05:57 Total Bilirubin 0.60 mg/dL (0.1-1.2) 10/04/20 05:59 AST 26 units/L (5-40) 10/04/20 05:59 ALT 15 units/L (7-56) 10/04/20 05:59 Alkaline Phosphatase 105 units/L (35-129) 10/04/20 05:59 Ammonia 22.0 umol/L (25-60) L 10/02/20 23:17 Total Creatine Kinase 88 units/L (55-170) 10/02/20 23:17 CK-MB (CK-2) 7.5 ng/mL (0.0-4.0) H 10/02/20 23:17 CK-MB (CK-2) Rel Index 8.5 (0-4) H 10/02/20 23:17 Troponin T < 0.010 ng/mL (0.00-0.029) 10/02/20 23:17 Total Protein 6.4 g/dL (6.3-8.2) 10/04/20 05:59 Albumin 2.6 g/dL (3.9-5) L 10/04/20 05:59 Albumin/Globulin Ratio 0.7 % 10/04/20 05:59 TSH 2.060 mlU/mL (0.270-4.200) 10/02/20 23:17 Salicylates < 0.3 mg/dL (2.8-20.0) L 10/02/20 23:17 Acetaminophen 5.0 ug/mL (10.0-30.0) L 10/02/20 23:17 Plasma/Serum Alcohol < 0.01 % (0-0.07) 10/02/20 23:17 Coronavirus (PCR) Negative (Negative) 10/03/20 08:41 Blood Type O POSITIVE 10/03/20 05:57 Antibody Screen Negative 10/03/20 05:57 Crossmatch See Detail 10/03/20 05:57 Microbiology: Microbiology 10/02/20 23:51 Peripheral/Venous Blood Culture - Preliminary NO GROWTH AFTER 72 HOURS 10/02/20 23:17 Peripheral/Venous Blood Culture - Preliminary NO GROWTH AFTER 72 HOURS Jackson/IV: Voiding Method Indwelling Catheter Active Medications - Current Medications Current Medications: Generic Name Dose Route Start Last Admin Trade Name Freq PRN Reason Stop Dose Admin Acetaminophen 650 mg 10/03/20 02:10 Acetaminophen 325 Mg Tab PO Q4H PRN Pain MILD(1-3)/Fever >100.5/ROMERO Al Hydrox/Mg Hydrox/Simethicone 30 ml 10/03/20 02:10 Alum-Mag Hydroxide-Simethicone [id number]/5ml Oral Liqd 30 Ml PO Q4H PRN Indigestion Lipase/Protease/Amylase 1 each 10/03/20 16:51 Lipase 10,500/Protease 25,000/Amylase 43,750 (Units) Dr Reis FEEDTUBE PRN PRN For Clogged Feeding Tube Dextrose 0 ml 10/02/20 22:49 10/04/20 18:15 Dextrose 50% In Water (25gm) 50 Ml Syringe IV 15 ml Q30MIN PRN Administration Hypoglycemia Protocol Ferrous Sulfate 325 mg 10/03/20 10:00 10/05/20 10:33 Ferrous Sulfate 325 Mg Tab PO 325 mg QDAY JOSE Administration Folic Acid 1 mg 10/03/20 10:00 10/05/20 10:33 Folic Acid 1 Mg Tab PO 1 mg QDAY JOSE Administration Ceftriaxone Sodium 1 gm in 50 mls @ 100 mls/hr 10/03/20 22:00 10/05/20 21:21 Rocephin/Ns 1 Gm/50 Ml IV 10/06/20 22:29 100 mls/hr QHS JOSE Administration Protocol Azithromycin 500 mg in 250 mls @ 250 mls/hr 10/03/20 22:00 10/05/20 22:10 Zithromax/Ns IV 10/06/20 22:59 250 mls/hr QHS JOSE Administration Dextrose 1,000 mls @ 100 mls/hr 10/03/20 18:00 10/06/20 04:12 D10w IV 100 mls/hr DIRECT JOSE Administration Magnesium Hydroxide 30 ml 10/03/20 02:10 Magnesium Hydroxide (Mom) Oral Liqd Udc PO Q4H PRN Constipation Metoclopramide HCl 10 mg 10/03/20 02:10 Metoclopramide 10 Mg/2 Ml Inj IV Q6H PRN Nausea And Vomiting Multivitamins 1 each 10/03/20 10:00 10/05/20 10:33 Multivitamins ,Therapeutic Tab PO 1 each QDAY JOSE Administration Ondansetron HCl 4 mg 10/03/20 02:10 Ondansetron 4 Mg/2 Ml Inj IV Q8H PRN Nausea And Vomiting Oxycodone/Acetaminophen 1 tab 10/03/20 02:10 Oxycodone /Acetaminophen 5-325mg Tab PO Q6H PRN Pain, Moderate (4-6) Pantoprazole Sodium 40 mg 10/04/20 15:00 10/05/20 10:33 Pantoprazole 40 Mg Inj IV 40 mg QDAY JOSE Administration Potassium Chloride 40 meq 10/06/20 08:00 Potassium Chloride 20 Meq Packet FEEDTUBE 10/06/20 14:01 Q6H JOSE Promethazine HCl 25 mg 10/03/20 02:10 Promethazine 25 Mg Rect Supp VA Q6H PRN N/V IF NPO AND NO IV ACCESS Senna 8.6 mg 10/03/20 02:10 Sennosides 8.6 Mg Tab PO Q12HR PRN Constipation Simple Syrup 15 ml 10/03/20 16:51 Simple Syrup 15 Ml FEEDTUBE PRN PRN Hypoglycemia Simple Syrup 30 ml 10/03/20 16:51 Simple Syrup 15 Ml FEEDTUBE PRN PRN Hypoglycemia Sodium Bicarbonate 325 mg 10/03/20 16:51 Sodium Bicarbonate 325 Mg Tab FEEDTUBE PRN PRN For Clogged Feeding Tube Sodium Chloride 10 ml 10/03/20 10:00 10/05/20 21:22 Sodium Chloride 0.9% 10 Ml Flush Syringe IV 10 ml BID JOSE Administration Nutrition/Malnutrition Assess - Dietary Evaluation Nutrition/Malnutrition Findings: Nutrition Notes Start: 10/03/20 08:51 Freq: Status: Active Protocol: Document 10/04/20 11:47 (Rec: 10/04/20 12:03 [id number]) Nutrition Notes Need for Assessment generated from: MD Order Initial or Follow up Assessment Current Diagnosis Diabetes Other Pertinent Diagnosis AMS, hypothermia, pneu, anemia , atherosclerotic cerebrovascular disease Current Diet NPO Labs/Tests Na 136 POC BG 51-79 Pertinent Medications Reviewed Height 5 ft 10 in Weight 83.9 kg [place] Body Weight (kg) 75.45 BMI 26.5 Weight Status Overweight Subjective/Other Information MD consult for TF. Per RN, pt does not have dobhoff yet and is awaiting swallow eval by [employer]. Burn Absent Trauma Absent Minimum of two criteria No #1 Nutrition Diagnosis Swallowing difficulty Etiology possible CVA As Evidenced by Signs and Symptoms pt NPO due to aspiration risk and poor swallow function Is patient on ventilator? No Is Patient Ambulatory and/or Out of Bed No REE-([facility]-confined to bed) [phone] Calculation Used for Recommendations [facility] Additional Notes Protein: (1-1.2g/kg) 84-101g Fluid: 1 ml/kcal Nutrition Intervention Change Diet Order: Start TF as able Nutrition Support: Jevity 1.2 at 65 ml/hr Flush 100 ml q4h Kcal 1,872 Protein (gm) 87 Fluid (mL) 1,259 Goal #1 Start TF Goal #2 Meet at least 75% of protein and energy needs via TF Anticipated Discharge Needs: Unable to determine at this time Follow-Up By: 10/06/20 Additional Comments F/U: dobhoff placement and TF start/tolerance, BG
[2020-10-06] MEDS: POTASSIUM CHLORIDE 20 MEQ PACKET FEEDTUBE SCH ×2 (09:28→15:27)
[2020-10-06] MEDS: PANTOPRAZOLE 40 MG INJ IV SCH (09:29)
[2020-10-06] MEDS: FOLIC ACID 1 MG TAB PO SCH (09:35)
[2020-10-06] MEDS: MULTIVITAMINS ,THERAPEUTIC TAB PO SCH (09:36)
[2020-10-06] MEDS: FERROUS SULFATE 325 MG TAB PO SCH (09:36)
--- NOTE | 2020-10-06 13:58 | Gastroenterology Progress Note ---
Assessment and Plan 1. GI: presented w/ signs/symptoms of CVA w/ negative MRI, noted sanemia w/o signs active bleed - h/h stable since transfusion - continue PPI qd - follow h/h - pt for possible PEG placement, would be next week if ok w/ family - no plans to scope for anemia at this time but will consider scopes if placing peg - will follow Subjective Date of service: 10/06/20 Interval history: - no GI issues overnight. No signs bleeding Objective - Constitutional Vitals: Temp Pulse Resp BP Pulse Ox 97.9 F 64 18 107/76 98 10/06/20 07:46 10/06/20 07:46 10/06/20 07:46 10/06/20 07:46 10/06/20 10:00 General appearance: no acute distress - EENT Eyes: PERRL - Respiratory Respiratory: bilateral: rhonchi - Cardiovascular Rhythm: regular Heart Sounds: Present: S1 & S2 - Gastrointestinal General gastrointestinal: Present: soft, non-tender, non-distended - Labs CBC & Chem 7: 10/06/20 05:07 10/06/20 05:07 Labs: Laboratory Results - last 24 hr 10/05/20 10/05/20 10/05/20 16:47 21:51 23:39 WBC RBC Hgb Hct MCV MCH MCHC RDW Plt Count Sodium Potassium Chloride Carbon Dioxide Anion Gap BUN Creatinine Estimated GFR BUN/Creatinine Ratio Glucose POC Glucose 132 H 115 H 98 Calcium 10/06/20 10/06/20 10/06/20 05:07 05:07 05:26 WBC 5.5 RBC 3.99 Hgb 9.4 L Hct 30.1 L MCV 76 L MCH 24 L MCHC 31 L RDW 31.1 H Plt Count 191 Sodium 133 L Potassium 3.5 L Chloride 100.6 Carbon Dioxide 21 L Anion Gap 15 BUN 14 Creatinine 0.6 L Estimated GFR > 60 BUN/Creatinine Ratio 23 Glucose 105 H POC Glucose 102 Calcium 9.2 10/06/20 10/06/20 07:45 11:26 WBC RBC Hgb Hct MCV MCH MCHC RDW Plt Count Sodium Potassium Chloride Carbon Dioxide Anion Gap BUN Creatinine Estimated GFR BUN/Creatinine Ratio Glucose POC Glucose 105 101 Calcium
[2020-10-06] MEDS: cefTRIAXone/NS 1 GM/50 ML 1 GM/50 ML BAG IV SCH (21:02)
[2020-10-06] MEDS: AZITHROMYCIN/NS 500 MG/250 ML 500 MG/250 ML BAG IV SCH (21:08)
[2020-10-07 06:27] LABS: Hematocrit 29.4 % (35.5-45.6); Hemoglobin 9.6 gm/dl (11.8-15.2); Mean Corpuscular HGB Conc 33 % (32-34); Mean Corpuscular Volume 73 fl (84-94); Red Blood Count 4.04 M/mm3 (3.65-5.03)
[2020-10-07 06:42] LABS: Blood Urea Nitrogen 16 mg/dL (9-20); Calcium 9.1 mg/dL (8.4-10.2); Hemolysis Index 0
[2020-10-07 06:47] LABS: BUN/Creatinine Ratio 23
[2020-10-07 07:22] LABS: Platelet Count 159 K/mm3 (140-440); Red Cell Distribution Width 32.2 % (13.2-15.2)
[2020-10-07] MEDS: DEXTROSE 10% IN WATER 1,000 ML IV SCH (11:07)
[2020-10-07] MEDS: FERROUS SULFATE 325 MG TAB PO SCH (11:09)
[2020-10-07] MEDS: PANTOPRAZOLE 40 MG INJ IV SCH (11:09)
[2020-10-07] MEDS: MULTIVITAMINS ,THERAPEUTIC TAB PO SCH (11:09)
[2020-10-07] MEDS: FOLIC ACID 1 MG TAB PO SCH (11:09)
--- NOTE | 2020-10-07 11:55 | Progress Note ---
Assessment and Plan Assessment and plan: 74 yo man who presented with AMS and left sided weakness. Patient was found by caregiver in his bed incontinent in feces/urine. Assessment and plan: -- Acute encephalopathy CT angio of the head that is a significant narrowing seen in both posterior cerebral arteries and no signs of large vessel CT of the head no acute finding but showed a cerebral atrophy with suspicious atrophy and atherosclerotic calcification within the distal right middle cerebral artery. MRI brain without any acute findings Neurology consulted, will follow EEG -cannot r/o acute seizure with postictal state --Left-sided hemiparesis with significant aphasia Placed on stroke protocol, neurology following, failed swallow eval MRI brain without any new findings, EEG ordered and pending Aspirin due to severe anemia, will initiate Lipitor when able to tolerate tube feeding -- Hypothermia, resolved Monitor body temperature Applied bed hugger -- Pulmonary infiltrate in right lung on CXR COVID-19 test is negative Likely secondary to pneumonia Start empiric antibiotics Rocephin and azithromycin -- Atherosclerotic cerebrovascular disease Safety and fall precaution at all times PT OT consult follow-up with recommendation for discharge placement --Severe anemia -possible GI bleed? 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 Patient also noted with hemoglobin of 5.8, received 1 unit of packed RBC and ordered for tomorrow Neuro is consulted, Covid test is negative We will check stool for occult blood MRI brain ordered we will follow Will hold any oral medicine until cleared by speech or passes the bedside swallow eval Patient noted to have severe hypoglycemic, will place on D10W Follow H&H and BMP Continue current management plan as dictated in the HPI 10/04/20: no acute findings in MRI, pending EEG, s/p 3 units PRBC transfusion. follow speech eval, TF for now, h/h stable, GI consulted - follow recommendation. 10/05/20 Patient with acute encephalopathy, severe anemia s/p PRBC transfusion. GI following. Hgb 9.8 today. Will repeat in am. Left sided weakness. MRI negative for stroke. Neurology following. 10/06/20 Patient with encephalopathy, severe anemia s/p PRBC transfusion. Hgb 9.4 today. Patient has left sided weakness but MRI neg. Patient needs PEG tube. Will talk with family. Hypokalemia. Replace Q6h X 2. Check Mg 10/07/20 Patient with encephalopathy, severe anemia s/p PRBC transfusion. Hgb 9.6 today. Patient has left sided weakness but MRI neg. Patient needs PEG tube. Will talk with family. Hyponatremia of 128. This may be due to D10% he was on prior to NG tube. Stopped 10% Dextrose. Consulted Nephrology History Interval history: Altered mental status Low sodium Hospitalist Physical - Physical exam Narrative exam: Gen:Not in acute distress, lying in bed, NG tube HEENT:Normocephalic, atraumatic Neck: supple, no JVD Lungs: Clear to auscultation bilaterally, no wheeze Heart:S1 and S2 reg, no murmurs, rubs or gallop Abd:Soft, non tender, non distended, normal bowel sounds, Ext:No edema. no clubbing, no cyanosis Neuro: Awake, Right sided weakness - Constitutional Vitals: Temp Pulse Resp BP Pulse Ox 99.0 F 71 22 144/79 100 10/07/20 07:57 10/07/20 07:57 10/07/20 07:57 10/07/20 07:57 10/07/20 07:57 General appearance: Present: well-nourished HEART Score - HEART Score Troponin: Troponin T < 0.010 ng/mL (0.00-0.029) 10/02/20 23:17 Results - Labs CBC & Chem 7: 10/07/20 04:52 10/07/20 04:52 Labs: Laboratory Last Values WBC 5.7 K/mm3 (4.5-11.0) 10/07/20 04:52 RBC 4.04 M/mm3 (3.65-5.03) 10/07/20 04:52 Hgb 9.6 gm/dl (11.8-15.2) L 10/07/20 04:52 Hct 29.4 % (35.5-45.6) L 10/07/20 04:52 MCV 73 fl (84-94) L 10/07/20 04:52 MCH 24 pg (28-32) L 10/07/20 04:52 MCHC 33 % (32-34) 10/07/20 04:52 RDW 32.2 % (13.2-15.2) H 10/07/20 04:52 Plt Count 159 K/mm3 (140-440) 10/07/20 04:52 Add Manual Diff Complete 10/04/20 05:59 Total Counted 100 10/04/20 05:59 Seg Neuts % (Manual) 86.0 % (40.0-70.0) H 10/04/20 05:59 Band Neutrophils % 1.0 % 10/03/20 05:57 Lymphocytes % (Manual) 6.0 % (13.4-35.0) L 10/04/20 05:59 Monocytes % (Manual) 8.0 % (0.0-7.3) H 10/04/20 05:59 Nucleated RBC % 2.0 % (0.0-0.9) H 10/04/20 05:59 Seg Neutrophils # Man 11.5 K/mm3 (1.8-7.7) H 10/04/20 05:59 Band Neutrophils # 0.0 K/mm3 10/04/20 05:59 Lymphocytes # (Manual) 0.8 K/mm3 (1.2-5.4) L 10/04/20 05:59 Abs React Lymphs (Man) 0.0 K/mm3 10/04/20 05:59 Monocytes # (Manual) 1.1 K/mm3 (0.0-0.8) H 10/04/20 05:59 Eosinophils # (Manual) 0.0 K/mm3 (0.0-0.4) 10/04/20 05:59 Basophils # (Manual) 0.0 K/mm3 (0.0-0.1) 10/04/20 05:59 Metamyelocytes # 0.0 K/mm3 10/04/20 05:59 Myelocytes # 0.0 K/mm3 10/04/20 05:59 Promyelocytes # 0.0 K/mm3 10/04/20 05:59 Blast Cells # 0.0 K/mm3 10/04/20 05:59 WBC Morphology Not Reportable 10/04/20 05:59 Hypersegmented Neuts Not Reportable 10/04/20 05:59 Hyposegmented Neuts Not Reportable 10/04/20 05:59 Hypogranular Neuts Not Reportable 10/04/20 05:59 Smudge Cells Not Reportable 10/04/20 05:59 Toxic Granulation Not Reportable 10/04/20 05:59 Toxic Vacuolation Not Reportable 10/04/20 05:59 Dohle Bodies Not Reportable 10/04/20 05:59 Pelger-Huet Anomaly Not Reportable 10/04/20 05:59 Andrés Rods Not Reportable 10/04/20 05:59 Platelet Estimate Consistent w auto 10/04/20 05:59 Clumped Platelets Not Reportable 10/04/20 05:59 Plt Clumps, EDTA Not Reportable 10/04/20 05:59 Large Platelets Not Reportable 10/04/20 05:59 Giant Platelets Few 10/04/20 05:59 Platelet Satelliting Not Reportable 10/04/20 05:59 Plt Morphology Comment Not Reportable 10/04/20 05:59 RBC Morphology Not Reportable 10/04/20 05:59 Dimorphic RBCs Not Reportable 10/04/20 05:59 Polychromasia Not Reportable 10/04/20 05:59 Hypochromasia 1+ 10/04/20 05:59 Poikilocytosis Not Reportable 10/04/20 05:59 Anisocytosis 3+ 10/04/20 05:59 Microcytosis 1+ 10/04/20 05:59 Macrocytosis Not Reportable 10/04/20 05:59 Spherocytes Not Reportable 10/04/20 05:59 Pappenheimer Bodies Not Reportable 10/04/20 05:59 Sickle Cells Not Reportable 10/04/20 05:59 Target Cells 1+ 10/04/20 05:59 Tear Drop Cells Not Reportable 10/04/20 05:59 Ovalocytes Not Reportable 10/04/20 05:59 Helmet Cells Not Reportable 10/04/20 05:59 [place] Bodies Not Reportable 10/04/20 05:59 [place] Rings Not Reportable 10/04/20 05:59 Latimer Cells Not Reportable 10/04/20 05:59 Bite Cells Not Reportable 10/04/20 05:59 Crenated Cell Not Reportable 10/04/20 05:59 Elliptocytes Not Reportable 10/04/20 05:59 Acanthocytes (Spur) Not Reportable 10/04/20 05:59 Rouleaux Not Reportable 10/04/20 05:59 Hemoglobin C Crystals Not Reportable 10/04/20 05:59 Schistocytes Not Reportable 10/04/20 05:59 Malaria parasites Not Reportable 10/04/20 05:59 Dereck Bodies Not Reportable 10/04/20 05:59 Hem Pathologist Commnt No 10/04/20 05:59 PT 20.8 Sec. (12.2-14.9) H 10/02/20 23:17 INR 1.74 (0.87-1.13) H 10/02/20 23:17 APTT 57.6 Sec. (24.2-36.6) H 10/02/20 23:17 Thrombin Time 17.8 Sec. (15.1-19.6) 10/02/20 23:17 Sodium 128 mmol/L (137-145) L 10/07/20 04:52 Potassium 3.9 mmol/L (3.6-5.0) 10/07/20 04:52 Chloride 98.2 mmol/L (98-107) 10/07/20 04:52 Carbon Dioxide 20 mmol/L (22-30) L 10/07/20 04:52 Anion Gap 14 mmol/L 10/07/20 04:52 BUN 16 mg/dL (9-20) 10/07/20 04:52 Creatinine 0.7 mg/dL (0.8-1.3) L 10/07/20 04:52 Estimated GFR > 60 ml/min 10/07/20 04:52 BUN/Creatinine Ratio 23 % 10/07/20 04:52 Glucose 89 mg/dL (75-100) 10/07/20 04:52 POC Glucose 110 mg/dL (70-105) H 10/07/20 06:07 Hemoglobin A1c 5.2 % (4-6) 10/03/20 05:57 Lactic Acid 1.50 mmol/L (0.7-2.0) 10/03/20 04:43 Calcium 9.1 mg/dL (8.4-10.2) 10/07/20 04:52 Phosphorus 3.00 mg/dL (2.5-4.5) 10/06/20 05:07 Magnesium 1.90 mg/dL (1.7-2.3) 10/06/20 05:07 Iron 42 ug/dL (49-181) L 10/03/20 05:57 TIBC 305 mcg/dL (250-450) 10/03/20 05:57 Total Bilirubin 0.60 mg/dL (0.1-1.2) 10/04/20 05:59 AST 26 units/L (5-40) 10/04/20 05:59 ALT 15 units/L (7-56) 10/04/20 05:59 Alkaline Phosphatase 105 units/L (35-129) 10/04/20 05:59 Ammonia 22.0 umol/L (25-60) L 10/02/20 23:17 Total Creatine Kinase 88 units/L (55-170) 10/02/20 23:17 CK-MB (CK-2) 7.5 ng/mL (0.0-4.0) H 10/02/20 23:17 CK-MB (CK-2) Rel Index 8.5 (0-4) H 10/02/20 23:17 Troponin T < 0.010 ng/mL (0.00-0.029) 10/02/20 23:17 Total Protein 6.4 g/dL (6.3-8.2) 10/04/20 05:59 Albumin 2.6 g/dL (3.9-5) L 10/04/20 05:59 Albumin/Globulin Ratio 0.7 % 10/04/20 05:59 TSH 2.060 mlU/mL (0.270-4.200) 10/02/20 23:17 Salicylates < 0.3 mg/dL (2.8-20.0) L 10/02/20 23:17 Acetaminophen 5.0 ug/mL (10.0-30.0) L 10/02/20 23:17 Plasma/Serum Alcohol < 0.01 % (0-0.07) 10/02/20 23:17 Coronavirus (PCR) Negative (Negative) 10/06/20 Unknown Blood Type O POSITIVE 10/03/20 05:57 Antibody Screen Negative 10/03/20 05:57 Crossmatch See Detail 10/03/20 05:57 Microbiology: Microbiology 10/02/20 23:51 Peripheral/Venous Blood Culture - Preliminary NO GROWTH AFTER 4 DAYS 10/02/20 23:17 Peripheral/Venous Blood Culture - Preliminary NO GROWTH AFTER 4 DAYS Jackson/IV: Voiding Method Condom Catheter Active Medications - Current Medications Current Medications: Generic Name Dose Route Start Last Admin Trade Name Freq PRN Reason Stop Dose Admin Acetaminophen 650 mg 10/03/20 02:10 10/06/20 15:28 Acetaminophen 325 Mg Tab PO 650 mg Q4H PRN Administration Pain MILD(1-3)/Fever >100.5/ROMERO Al Hydrox/Mg Hydrox/Simethicone 30 ml 10/03/20 02:10 Alum-Mag Hydroxide-Simethicone [id number]/5ml Oral Liqd 30 Ml PO Q4H PRN Indigestion Lipase/Protease/Amylase 1 each 10/03/20 16:51 Lipase 10,500/Protease 25,000/Amylase 43,750 (Units) Dr Reis FEEDTUBE PRN PRN For Clogged Feeding Tube Dextrose 0 ml 10/02/20 22:49 10/04/20 18:15 Dextrose 50% In Water (25gm) 50 Ml Syringe IV 15 ml Q30MIN PRN Administration Hypoglycemia Protocol Ferrous Sulfate 325 mg 10/03/20 10:00 10/07/20 11:09 Ferrous Sulfate 325 Mg Tab PO 325 mg QDAY JOSE Administration Folic Acid 1 mg 10/03/20 10:00 10/07/20 11:09 Folic Acid 1 Mg Tab PO 1 mg QDAY JOSE Administration Magnesium Hydroxide 30 ml 10/03/20 02:10 Magnesium Hydroxide (Mom) Oral Liqd Udc PO Q4H PRN Constipation Metoclopramide HCl 10 mg 10/03/20 02:10 Metoclopramide 10 Mg/2 Ml Inj IV Q6H PRN Nausea And Vomiting Multivitamins 1 each 10/03/20 10:00 10/07/20 11:09 Multivitamins ,Therapeutic Tab PO 1 each QDAY JOSE Administration Ondansetron HCl 4 mg 10/03/20 02:10 Ondansetron 4 Mg/2 Ml Inj IV Q8H PRN Nausea And Vomiting Oxycodone/Acetaminophen 1 tab 10/03/20 02:10 Oxycodone /Acetaminophen 5-325mg Tab PO Q6H PRN Pain, Moderate (4-6) Pantoprazole Sodium 40 mg 10/04/20 15:00 10/07/20 11:09 Pantoprazole 40 Mg Inj IV 40 mg QDAY JOSE Administration Promethazine HCl 25 mg 10/03/20 02:10 Promethazine 25 Mg Rect Supp IN Q6H PRN N/V IF NPO AND NO IV ACCESS Senna 8.6 mg 10/03/20 02:10 Sennosides 8.6 Mg Tab PO Q12HR PRN Constipation Simple Syrup 15 ml 10/03/20 16:51 Simple Syrup 15 Ml FEEDTUBE PRN PRN Hypoglycemia Simple Syrup 30 ml 10/03/20 16:51 Simple Syrup 15 Ml FEEDTUBE PRN PRN Hypoglycemia Sodium Bicarbonate 325 mg 10/03/20 16:51 Sodium Bicarbonate 325 Mg Tab FEEDTUBE PRN PRN For Clogged Feeding Tube Sodium Chloride 10 ml 10/03/20 10:00 10/07/20 11:09 Sodium Chloride 0.9% 10 Ml Flush Syringe IV 10 ml BID JOSE Administration Nutrition/Malnutrition Assess - Dietary Evaluation Nutrition/Malnutrition Findings: Nutrition Notes Start: 10/03/20 08:51 Freq: Status: Active Protocol: Document 10/06/20 12:52 (Rec: 10/06/20 12:55 [email or web address]) Nutrition Notes Initial or Follow up Reassessment Current Diagnosis Diabetes Other Pertinent Diagnosis AMS, hypothermia, pneu, anemia , atherosclerotic cerebrovascular disease Current Diet Jevity 1.2 at 65ml/hr Labs/Tests Na 133 K 3.5 Pertinent Medications Reviewed Height 5 ft 10 in Weight 81.3 kg [place] Body Weight (kg) 75.45 BMI 25.7 Weight Status Overweight Subjective/Other Information RN reports out of Jevity so Glucerna was started. TF running at 50 ml/hr and pt tolerating. Percent of energy/protein needs met: 77%/86% Burn Absent Trauma Absent Minimum of two criteria No #1 Nutrition Diagnosis Swallowing difficulty Diagnosis Progress(for reassessment Continues documentation) Is patient on ventilator? No Is Patient Ambulatory and/or Out of Bed No REE-([facility]-confined to bed) [phone] Calculation Used for Recommendations [facility] Additional Notes Protein: (1-1.2g/kg) 84-101g Fluid: 1 ml/kcal Nutrition Intervention Change Diet Order: continue Nutrition Support: Glucerna 1.2 at 65 ml/hr Flush 100 ml q4h Kcal 1,782 Protein (gm) 94 Fluid (mL) 1,256 Goal #1 Meet at least 75% of protein and energy needs via TF Anticipated Discharge Needs: Glucerna 1.2 at 65 ml/hr Flush 100 ml q4h Follow-Up By: 09/12/20 Additional Comments F/u: stable TF and rate
--- NOTE | 2020-10-07 12:43 | Consultation ---
History of Present Illness - Reason for Consult Consult date: 10/07/20 hyponatremia - History of Present Illness The patient was admitted for altered mental status, he had no acute findings in MRI. he was found to ahve worsenign anemia and underwent PRBC transfusion. he was started on D10W for hypoglycemia and was noted to have worsening hyponatremia and renal consult was requested. Past History Past Medical History: GERD Past Surgical History: No surgical history Social history: no significant social history, alcohol abuse (Per patient his) Family history: no significant family history (Unable to get information from the patient secondary to altered mental status) Medications and Allergies Allergies Allergy/AdvReac Type Severity Reaction Status Date / Time No Known Allergies Allergy Unverified 10/03/20 12:27 Active Meds: Active Medications Acetaminophen (Acetaminophen 325 Mg Tab) 650 mg PO Q4H PRN PRN Reason: Pain MILD(1-3)/Fever >100.5/ROMERO Last Admin: 10/06/20 15:28 Dose: 650 mg Documented by: Al Hydrox/Mg Hydrox/Simethicone (Alum-Mag Hydroxide-Simethicone [phone]/5ml Oral Liqd 30 Ml) 30 ml PO Q4H PRN PRN Reason: Indigestion Lipase/Protease/Amylase (Lipase 10,500/Protease 25,000/Amylase 43,750 (Units) Dr Reis) 1 each FEEDTUBE PRN PRN PRN Reason: For Clogged Feeding Tube Dextrose (Dextrose 50% In Water (25gm) 50 Ml Syringe) 0 ml IV Q30MIN PRN; Protocol PRN Reason: Hypoglycemia Last Admin: 10/04/20 18:15 Dose: 15 ml Documented by: Ferrous Sulfate (Ferrous Sulfate 325 Mg Tab) 325 mg PO QDAY [facility] Last Admin: 10/07/20 11:09 Dose: 325 mg Documented by: Folic Acid (Folic Acid 1 Mg Tab) 1 mg PO QDAY [facility] Last Admin: 10/07/20 11:09 Dose: 1 mg Documented by: Magnesium Hydroxide (Magnesium Hydroxide (Mom) Oral Liqd Udc) 30 ml PO Q4H PRN PRN Reason: Constipation Metoclopramide HCl (Metoclopramide 10 Mg/2 Ml Inj) 10 mg IV Q6H PRN PRN Reason: Nausea And Vomiting Multivitamins (Multivitamins ,Therapeutic Tab) 1 each PO QDAY [facility] Last Admin: 10/07/20 11:09 Dose: 1 each Documented by: Ondansetron HCl (Ondansetron 4 Mg/2 Ml Inj) 4 mg IV Q8H PRN PRN Reason: Nausea And Vomiting Oxycodone/Acetaminophen (Oxycodone /Acetaminophen 5-325mg Tab) 1 tab PO Q6H PRN PRN Reason: Pain, Moderate (4-6) Pantoprazole Sodium (Pantoprazole 40 Mg Inj) 40 mg IV QDAY [facility] Last Admin: 10/07/20 11:09 Dose: 40 mg Documented by: Promethazine HCl (Promethazine 25 Mg Rect Supp) 25 mg [place] Q6H PRN PRN Reason: N/V IF NPO AND NO IV ACCESS Senna (Sennosides 8.6 Mg Tab) 8.6 mg PO Q12HR PRN PRN Reason: Constipation Simple Syrup (Simple Syrup 15 Ml) 15 ml FEEDTUBE PRN PRN PRN Reason: Hypoglycemia Simple Syrup (Simple Syrup 15 Ml) 30 ml FEEDTUBE PRN PRN PRN Reason: Hypoglycemia Sodium Bicarbonate (Sodium Bicarbonate 325 Mg Tab) 325 mg FEEDTUBE PRN PRN PRN Reason: For Clogged Feeding Tube Sodium Chloride (Sodium Chloride 0.9% 10 Ml Flush Syringe) 10 ml IV BID [facility] Last Admin: 10/07/20 11:09 Dose: 10 ml Documented by: Exam - Vital Signs Vital signs: Vital Signs Temp Pulse Resp BP Pulse Ox 90.1 F L 98 H 16 128/75 99 10/03/20 00:39 10/03/20 00:39 10/03/20 00:39 10/03/20 00:39 10/03/20 00:39 Results - Lab Results 10/07/20 04:52 10/07/20 04:52 Most recent lab results Calcium 9.1 mg/dL (8.4-10.2) 10/07/20 04:52 Phosphorus 3.00 mg/dL (2.5-4.5) 10/06/20 05:07 Magnesium 1.90 mg/dL (1.7-2.3) 10/06/20 05:07 Assessment and Plan Acute encephalopathy hyponatremia Hypothermia, resolved Pulmonary infiltrate in right lung on CXR Atherosclerotic cerebrovascular disease Severe anemia -possible GI bleed Severe protein-calorie malnutrition likely secondary to D10W infusion which was held this AM may need start salt tabs if no improvement in hyponatremia will check serum and urine osm will check urine lytes will check TSH and AM cortisol avoid correction more than 8 mmol/ a day
--- NOTE | 2020-10-07 13:51 | Event Note ---
Date: 10/07/20 Spoke to daughter, Cindy Singh, and gave update. She wants PEG tube placed.
[2020-10-07 15:40] LABS: Osmolality,Urine 223 Mosm/kg
[2020-10-07] MEDS: DEXTROSE 50% IN WATER (25GM) 50 ML SYRINGE IV PRN ×3 (17:59→21:13)
[2020-10-07] MEDS ORDERED: DEXTROSE 10% IN WATER 1,000 ML IV SCH (21:00)
[2020-10-08 06:10] LABS: Blood Urea Nitrogen 17 mg/dL (9-20); Hemolysis Index 0
[2020-10-08 06:17] LABS: Hematocrit 29.4 % (35.5-45.6); Hemoglobin 9.6 gm/dl (11.8-15.2); Mean Corpuscular HGB Conc 33 % (32-34); Mean Corpuscular Volume 73 fl (84-94); Red Blood Count 4.02 M/mm3 (3.65-5.03)
[2020-10-08 07:01] LABS: BUN/Creatinine Ratio 24
[2020-10-08 07:30] LABS: Red Cell Distribution Width 32.4 % (13.2-15.2)
[2020-10-08 07:31] LABS: Platelet Count 173 K/mm3 (140-440)
--- NOTE | 2020-10-08 08:11 | Progress Note ---
Assessment and Plan Assessment and plan: 74 yo man who presented with AMS and left sided weakness. Patient was found by caregiver in his bed incontinent in feces/urine. Assessment and plan: -- Acute encephalopathy CT angio of the head that is a significant narrowing seen in both posterior cerebral arteries and no signs of large vessel CT of the head no acute finding but showed a cerebral atrophy with suspicious atrophy and atherosclerotic calcification within the distal right middle cerebral artery. MRI brain without any acute findings Neurology consulted, will follow EEG -cannot r/o acute seizure with postictal state --Left-sided hemiparesis with significant aphasia Placed on stroke protocol, neurology following, failed swallow eval MRI brain without any new findings, EEG ordered and pending Aspirin due to severe anemia, will initiate Lipitor when able to tolerate tube feeding -- Hypothermia, resolved Monitor body temperature Applied bed hugger -- Pulmonary infiltrate in right lung on CXR COVID-19 test is negative Likely secondary to pneumonia Start empiric antibiotics Rocephin and azithromycin -- Atherosclerotic cerebrovascular disease Safety and fall precaution at all times PT OT consult follow-up with recommendation for discharge placement --Severe anemia -possible GI bleed? 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 Patient also noted with hemoglobin of 5.8, received 1 unit of packed RBC and ordered for tomorrow Neuro is consulted, Covid test is negative We will check stool for occult blood MRI brain ordered we will follow Will hold any oral medicine until cleared by speech or passes the bedside swallow eval Patient noted to have severe hypoglycemic, will place on D10W Follow H&H and BMP Continue current management plan as dictated in the HPI 10/04/20: no acute findings in MRI, pending EEG, s/p 3 units PRBC transfusion. follow speech eval, TF for now, h/h stable, GI consulted - follow recommendation. 10/05/20 Patient with acute encephalopathy, severe anemia s/p PRBC transfusion. GI following. Hgb 9.8 today. Will repeat in am. Left sided weakness. MRI negative for stroke. Neurology following. 10/06/20 Patient with encephalopathy, severe anemia s/p PRBC transfusion. Hgb 9.4 today. Patient has left sided weakness but MRI neg. Patient needs PEG tube. Will talk with family. Hypokalemia. Replace Q6h X 2. Check Mg 10/07/20 Patient with encephalopathy, severe anemia s/p PRBC transfusion. Hgb 9.6 today. Patient has left sided weakness but MRI neg. Patient needs PEG tube. Will talk with family. Hyponatremia of 128. This may be due to D10% he was on prior to NG tube. Stopped 10% Dextrose. Consulted Nephrology 10/07/20 Patient with encephalopathy, severe anemia s/p PRBC transfusion. Hgb 9.6 today. Patient has left sided weakness but MRI neg. Patient needs PEG tube. Hyponatremia worse today 126. This is due to D10% resumed last night because of hypoglycemia. I discussed with Dr. Herrera. Stop 10%Dextrose. Start D5NS Spoke to daughter, Cindy Singh, yesterday and gave update. She wants PEG tube placed. Discussed plan with , GI. He wants to do upper and lower endoscopy to evaluate anemia, before PEG tube History Interval history: Altered mental status Low sodium Hospitalist Physical - Physical exam Narrative exam: Gen:Not in acute distress, lying in bed, NG tube HEENT:Normocephalic, atraumatic Neck: supple, no JVD Lungs: Clear to auscultation bilaterally, no wheeze Heart:S1 and S2 reg, no murmurs, rubs or gallop Abd:Soft, non tender, non distended, normal bowel sounds, Ext:No edema. no clubbing, no cyanosis Neuro: Awake, Right sided weakness - Constitutional Vitals: Temp Pulse Resp BP Pulse Ox 96.9 F L 70 18 101/70 92 10/08/20 03:07 10/08/20 03:07 10/08/20 03:07 10/08/20 03:07 10/08/20 03:07 General appearance: Present: well-nourished HEART Score - HEART Score Troponin: Troponin T < 0.010 ng/mL (0.00-0.029) 10/02/20 23:17 Results - Labs CBC & Chem 7: 10/08/20 05:00 10/08/20 05:00 Labs: Laboratory Last Values WBC 5.0 K/mm3 (4.5-11.0) 10/08/20 05:00 RBC 4.02 M/mm3 (3.65-5.03) 10/08/20 05:00 Hgb 9.6 gm/dl (11.8-15.2) L 10/08/20 05:00 Hct 29.4 % (35.5-45.6) L 10/08/20 05:00 MCV 73 fl (84-94) L 10/08/20 05:00 MCH 24 pg (28-32) L 10/08/20 05:00 MCHC 33 % (32-34) 10/08/20 05:00 RDW 32.4 % (13.2-15.2) H 10/08/20 05:00 Plt Count 173 K/mm3 (140-440) 10/08/20 05:00 Add Manual Diff Complete 10/04/20 05:59 Total Counted 100 10/04/20 05:59 Seg Neuts % (Manual) 86.0 % (40.0-70.0) H 10/04/20 05:59 Band Neutrophils % 1.0 % 10/03/20 05:57 Lymphocytes % (Manual) 6.0 % (13.4-35.0) L 10/04/20 05:59 Monocytes % (Manual) 8.0 % (0.0-7.3) H 10/04/20 05:59 Nucleated RBC % 2.0 % (0.0-0.9) H 10/04/20 05:59 Seg Neutrophils # Man 11.5 K/mm3 (1.8-7.7) H 10/04/20 05:59 Band Neutrophils # 0.0 K/mm3 10/04/20 05:59 Lymphocytes # (Manual) 0.8 K/mm3 (1.2-5.4) L 10/04/20 05:59 Abs React Lymphs (Man) 0.0 K/mm3 10/04/20 05:59 Monocytes # (Manual) 1.1 K/mm3 (0.0-0.8) H 10/04/20 05:59 Eosinophils # (Manual) 0.0 K/mm3 (0.0-0.4) 10/04/20 05:59 Basophils # (Manual) 0.0 K/mm3 (0.0-0.1) 10/04/20 05:59 Metamyelocytes # 0.0 K/mm3 10/04/20 05:59 Myelocytes # 0.0 K/mm3 10/04/20 05:59 Promyelocytes # 0.0 K/mm3 10/04/20 05:59 Blast Cells # 0.0 K/mm3 10/04/20 05:59 WBC Morphology Not Reportable 10/04/20 05:59 Hypersegmented Neuts Not Reportable 10/04/20 05:59 Hyposegmented Neuts Not Reportable 10/04/20 05:59 Hypogranular Neuts Not Reportable 10/04/20 05:59 Smudge Cells Not Reportable 10/04/20 05:59 Toxic Granulation Not Reportable 10/04/20 05:59 Toxic Vacuolation Not Reportable 10/04/20 05:59 Dohle Bodies Not Reportable 10/04/20 05:59 Pelger-Huet Anomaly Not Reportable 10/04/20 05:59 Andrés Rods Not Reportable 10/04/20 05:59 Platelet Estimate Consistent w auto 10/04/20 05:59 Clumped Platelets Not Reportable 10/04/20 05:59 Plt Clumps, EDTA Not Reportable 10/04/20 05:59 Large Platelets Not Reportable 10/04/20 05:59 Giant Platelets Few 10/04/20 05:59 Platelet Satelliting Not Reportable 10/04/20 05:59 Plt Morphology Comment Not Reportable 10/04/20 05:59 RBC Morphology Not Reportable 10/04/20 05:59 Dimorphic RBCs Not Reportable 10/04/20 05:59 Polychromasia Not Reportable 10/04/20 05:59 Hypochromasia 1+ 10/04/20 05:59 Poikilocytosis Not Reportable 10/04/20 05:59 Anisocytosis 3+ 10/04/20 05:59 Microcytosis 1+ 10/04/20 05:59 Macrocytosis Not Reportable 10/04/20 05:59 Spherocytes Not Reportable 10/04/20 05:59 Pappenheimer Bodies Not Reportable 10/04/20 05:59 Sickle Cells Not Reportable 10/04/20 05:59 Target Cells 1+ 10/04/20 05:59 Tear Drop Cells Not Reportable 10/04/20 05:59 Ovalocytes Not Reportable 10/04/20 05:59 Helmet Cells Not Reportable 10/04/20 05:59 [place] Bodies Not Reportable 10/04/20 05:59 [place] Rings Not Reportable 10/04/20 05:59 Norbert Cells Not Reportable 10/04/20 05:59 Bite Cells Not Reportable 10/04/20 05:59 Crenated Cell Not Reportable 10/04/20 05:59 Elliptocytes Not Reportable 10/04/20 05:59 Acanthocytes (Spur) Not Reportable 10/04/20 05:59 Rouleaux Not Reportable 10/04/20 05:59 Hemoglobin C Crystals Not Reportable 10/04/20 05:59 Schistocytes Not Reportable 10/04/20 05:59 Malaria parasites Not Reportable 10/04/20 05:59 Dereck Bodies Not Reportable 10/04/20 05:59 Hem Pathologist Commnt No 10/04/20 05:59 PT 20.8 Sec. (12.2-14.9) H 10/02/20 23:17 INR 1.74 (0.87-1.13) H 10/02/20 23:17 APTT 57.6 Sec. (24.2-36.6) H 10/02/20 23:17 Thrombin Time 17.8 Sec. (15.1-19.6) 10/02/20 23:17 Sodium 126 mmol/L (137-145) L 10/08/20 05:00 Potassium 4.4 mmol/L (3.6-5.0) 10/08/20 05:00 Chloride 96.3 mmol/L (98-107) L 10/08/20 05:00 Carbon Dioxide 22 mmol/L (22-30) 10/08/20 05:00 Anion Gap 12 mmol/L 10/08/20 05:00 BUN 17 mg/dL (9-20) 10/08/20 05:00 Creatinine 0.7 mg/dL (0.8-1.3) L 10/08/20 05:00 Estimated GFR > 60 ml/min 10/08/20 05:00 BUN/Creatinine Ratio 24 % 10/08/20 05:00 Glucose 80 mg/dL (75-100) 10/08/20 05:00 POC Glucose 73 mg/dL (70-105) 10/08/20 06:13 Hemoglobin A1c 5.2 % (4-6) 10/03/20 05:57 Osmolality 267 Mosm/kg 10/07/20 13:54 Lactic Acid 1.50 mmol/L (0.7-2.0) 10/03/20 04:43 Calcium 9.0 mg/dL (8.4-10.2) 10/08/20 05:00 Phosphorus 3.00 mg/dL (2.5-4.5) 10/06/20 05:07 Magnesium 1.90 mg/dL (1.7-2.3) 10/06/20 05:07 Iron 42 ug/dL (49-181) L 10/03/20 05:57 TIBC 305 mcg/dL (250-450) 10/03/20 05:57 Total Bilirubin 0.60 mg/dL (0.1-1.2) 10/04/20 05:59 AST 26 units/L (5-40) 10/04/20 05:59 ALT 15 units/L (7-56) 10/04/20 05:59 Alkaline Phosphatase 105 units/L (35-129) 10/04/20 05:59 Ammonia 22.0 umol/L (25-60) L 10/02/20 23:17 Total Creatine Kinase 88 units/L (55-170) 10/02/20 23:17 CK-MB (CK-2) 7.5 ng/mL (0.0-4.0) H 10/02/20 23:17 CK-MB (CK-2) Rel Index 8.5 (0-4) H 10/02/20 23:17 Troponin T < 0.010 ng/mL (0.00-0.029) 10/02/20 23:17 Total Protein 6.4 g/dL (6.3-8.2) 10/04/20 05:59 Albumin 2.6 g/dL (3.9-5) L 10/04/20 05:59 Albumin/Globulin Ratio 0.7 % 10/04/20 05:59 TSH 2.130 mlU/mL (0.270-4.200) 10/07/20 13:54 Urine Osmolality 223 Mosm/kg 10/07/20 Unknown Urine Sodium 10 mmol/L 10/07/20 Unknown Salicylates < 0.3 mg/dL (2.8-20.0) L 10/02/20 23:17 Acetaminophen 5.0 ug/mL (10.0-30.0) L 10/02/20 23:17 Plasma/Serum Alcohol < 0.01 % (0-0.07) 10/02/20 23:17 Coronavirus (PCR) Negative (Negative) 10/06/20 Unknown Blood Type O POSITIVE 10/03/20 05:57 Antibody Screen Negative 10/03/20 05:57 Crossmatch See Detail 10/03/20 05:57 Microbiology: Microbiology 10/02/20 23:51 Peripheral/Venous Blood Culture - Final NO GROWTH AFTER 5 DAYS 10/02/20 23:17 Peripheral/Venous Blood Culture - Final NO GROWTH AFTER 5 DAYS Jackson/IV: Voiding Method Condom Catheter Active Medications - Current Medications Current Medications: Generic Name Dose Route Start Last Admin Trade Name Freq PRN Reason Stop Dose Admin Acetaminophen 650 mg 10/03/20 02:10 10/06/20 15:28 Acetaminophen 325 Mg Tab PO 650 mg Q4H PRN Administration Pain MILD(1-3)/Fever >100.5/ROMERO Al Hydrox/Mg Hydrox/Simethicone 30 ml 10/03/20 02:10 Alum-Mag Hydroxide-Simethicone [id number]/5ml Oral Liqd 30 Ml PO Q4H PRN Indigestion Lipase/Protease/Amylase 1 each 10/03/20 16:51 Lipase 10,500/Protease 25,000/Amylase 43,750 (Units) Dr Reis FEEDTUBE PRN PRN For Clogged Feeding Tube Dextrose 0 ml 10/02/20 22:49 10/07/20 21:13 Dextrose 50% In Water (25gm) 50 Ml Syringe IV 50 ml Q30MIN PRN Administration Hypoglycemia Protocol Ferrous Sulfate 325 mg 10/03/20 10:00 10/07/20 11:09 Ferrous Sulfate 325 Mg Tab PO 325 mg QDAY JOSE Administration Folic Acid 1 mg 10/03/20 10:00 10/07/20 11:09 Folic Acid 1 Mg Tab PO 1 mg QDAY JOSE Administration Dextrose 1,000 mls @ 50 mls/hr 10/07/20 21:00 10/07/20 21:07 D10w IV 50 mls/hr DIRECT JOSE Administration Magnesium Hydroxide 30 ml 10/03/20 02:10 Magnesium Hydroxide (Mom) Oral Liqd Udc PO Q4H PRN Constipation Metoclopramide HCl 10 mg 10/03/20 02:10 Metoclopramide 10 Mg/2 Ml Inj IV Q6H PRN Nausea And Vomiting Multivitamins 1 each 10/03/20 10:00 10/07/20 11:09 Multivitamins ,Therapeutic Tab PO 1 each QDAY JOSE Administration Ondansetron HCl 4 mg 10/03/20 02:10 10/07/20 23:19 Ondansetron 4 Mg/2 Ml Inj IV 4 mg Q8H PRN Administration Nausea And Vomiting Oxycodone/Acetaminophen 1 tab 10/03/20 02:10 Oxycodone /Acetaminophen 5-325mg Tab PO Q6H PRN Pain, Moderate (4-6) Pantoprazole Sodium 40 mg 10/04/20 15:00 10/07/20 11:09 Pantoprazole 40 Mg Inj IV 40 mg QDAY JOSE Administration Promethazine HCl 25 mg 10/03/20 02:10 Promethazine 25 Mg Rect Supp ND Q6H PRN N/V IF NPO AND NO IV ACCESS Senna 8.6 mg 10/03/20 02:10 Sennosides 8.6 Mg Tab PO Q12HR PRN Constipation Simple Syrup 15 ml 10/03/20 16:51 Simple Syrup 15 Ml FEEDTUBE PRN PRN Hypoglycemia Simple Syrup 30 ml 10/03/20 16:51 Simple Syrup 15 Ml FEEDTUBE PRN PRN Hypoglycemia Sodium Bicarbonate 325 mg 10/03/20 16:51 Sodium Bicarbonate 325 Mg Tab FEEDTUBE PRN PRN For Clogged Feeding Tube Sodium Chloride 10 ml 10/03/20 10:00 10/07/20 21:13 Sodium Chloride 0.9% 10 Ml Flush Syringe IV 10 ml BID JOSE Administration Nutrition/Malnutrition Assess - Dietary Evaluation Nutrition/Malnutrition Findings: Nutrition Notes Start: 10/03/20 08:51 Freq: Status: Active Protocol: Document 10/06/20 12:52 (Rec: 10/06/20 12:55 [email or web address]) Nutrition Notes Initial or Follow up Reassessment Current Diagnosis Diabetes Other Pertinent Diagnosis AMS, hypothermia, pneu, anemia , atherosclerotic cerebrovascular disease Current Diet Jevity 1.2 at 65ml/hr Labs/Tests Na 133 K 3.5 Pertinent Medications Reviewed Height 5 ft 10 in Weight 81.3 kg Panther Burn Body Weight (kg) 75.45 BMI 25.7 Weight Status Overweight Subjective/Other Information RN reports out of Jevity so Glucerna was started. TF running at 50 ml/hr and pt tolerating. Percent of energy/protein needs met: 77%/86% Burn Absent Trauma Absent Minimum of two criteria No #1 Nutrition Diagnosis Swallowing difficulty Diagnosis Progress(for reassessment Continues documentation) Is patient on ventilator? No Is Patient Ambulatory and/or Out of Bed No REE-([facility]-confined to bed) 3678.099 Calculation Used for Recommendations [facility] Additional Notes Protein: (1-1.2g/kg) 84-101g Fluid: 1 ml/kcal Nutrition Intervention Change Diet Order: continue Nutrition Support: Glucerna 1.2 at 65 ml/hr Flush 100 ml q4h Kcal 1,782 Protein (gm) 94 Fluid (mL) 1,256 Goal #1 Meet at least 75% of protein and energy needs via TF Anticipated Discharge Needs: Glucerna 1.2 at 65 ml/hr Flush 100 ml q4h Follow-Up By: 09/12/20 Additional Comments F/u: stable TF and rate
[2020-10-08 08:25] LABS: Basophils # (Auto) 0.1 K/mm3 (0.0-0.1); Eosinophils % (Auto) 0.8 % (0.0-4.3); Monocytes # (Auto) 0.3 K/mm3 (0.0-0.8); Monocytes % (Auto) 6.3 % (0.0-7.3)
[2020-10-08 09:21] LABS: Total Cells Counted 100
[2020-10-08 09:22] LABS: Anisocytosis 3+; Burr Cells 1+; Hypochromasia 2+; Poikilocytosis 2+; Target Cells Few
[2020-10-08 09:23] LABS: Ovalocytes Few; Platelet Estimate Consistent w Auto; Tear Drop Cells Few
--- NOTE | 2020-10-08 10:22 | XRay Report ---
CHEST 1 VIEW 10/08/2020 8:50 AM INDICATION / CLINICAL INFORMATION: follow up right lung airspace disease. COMPARISON: 10/02/20 FINDINGS: SUPPORT DEVICES: Weighted feeding tube projects over the mid esophagus. HEART / MEDIASTINUM: Mildly enlarged but stable. LUNGS / PLEURA: Patchy bilateral pulmonary opacities have increased. No pneumothorax. ADDITIONAL FINDINGS: No significant additional findings. IMPRESSION: 1. Interval worsening of bilateral pulmonary opacities which may represent pneumonia. Signer Name: Autumn Palafox MD Signed: 10/08/2020 10:17 AM Workstation Name: [id number]
--- NOTE | 2020-10-08 10:23 | XRay Report ---
ABDOMEN 1 VIEW 10/08/2020 8:50 AM INDICATION / CLINICAL INFORMATION: Vomiting. COMPARISON: None available. FINDINGS: TUBES / LINES: Weighted feeding tube projects over the mid esophagus in the chest. BOWEL GAS PATTERN: No significant abnormality. FREE AIR / EXTRALUMINAL GAS: None. ADDITIONAL FINDINGS: No significant additional findings. IMPRESSION: 1. Feeding tube projects over the mid esophagus in the chest. Tube should be advanced into the stomac h. Signer Name: Autumn Palafox MD Signed: 10/08/2020 10:18 AM Workstation Name: [id number]
[2020-10-08] MEDS ORDERED: VANCOMYCIN PHARMACY TO DOSE IV SCH (11:00)
--- NOTE | 2020-10-08 11:29 | XRay Report ---
ABDOMEN 1 VIEW(S) 10/08/2020 10:51 AM INDICATION / CLINICAL INFORMATION: CHECK DOBHOFF PLACEMENT. COMPARISON: None available. FINDINGS: The tip of a weighted feeding tube projects over the mid thoracic esophagus. Signer Name: Rolando Martinez MD Signed: 10/08/2020 11:24 AM Workstation Name: [id number]
--- NOTE | 2020-10-08 11:36 | Progress Note ---
Assessment and Plan 1. Iron deficient anemia - etiology unclear. Need to exclude GI source of bleeding. Given need for PEG, will evaluate for cause of anemia first. - proceed with EGD/Colon when stable and hyponatremia improves. 2. 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 - will plan on PEG eventually spoke with pt's daughter, Mignon Singh. Subjective Date of service: 10/08/20 Interval history: Pt stable. Has Dobhoff in place. Confused. Objective - Constitutional Vitals: Vital Signs - 12hr 10/08/20 10/08/20 03:07 08:00 Temperature 96.9 F L 96.1 F L Pulse Rate 70 74 Respiratory 18 22 Rate Blood Pressure 101/70 Blood Pressure 123/92 [Right] O2 Sat by Pulse 92 100 Oximetry General appearance: Present: no acute distress - EENT Eyes: PERRL, EOM intact ENT: hearing intact - Respiratory Respiratory effort: normal - Gastrointestinal General gastrointestinal: Present: soft, non-tender - Labs CBC & Chem 7: 10/08/20 05:00 10/08/20 05:00 Labs: Abnormal lab results 10/07/20 10/07/20 10/07/20 Range/Units 17:09 18:53 20:35 Hgb (11.8-15.2) gm/dl Hct (35.5-45.6) % MCV (84-94) fl MCH (28-32) pg RDW (13.2-15.2) % Seg Neutrophils % (40.0-70.0) % Seg Neuts % (Manual) (40.0-70.0) % Lymphocytes % (Manual) (13.4-35.0) % Nucleated RBC % (0.0-0.9) % Lymphocytes # (Manual) (1.2-5.4) K/mm3 Sodium (137-145) mmol/L Chloride (98-107) mmol/L Creatinine (0.8-1.3) mg/dL POC Glucose 67 L 66 L 62 L (70-105) mg/dL 10/07/20 10/08/20 10/08/20 Range/Units 21:55 05:00 05:00 Hgb 9.6 L (11.8-15.2) gm/dl Hct 29.4 L (35.5-45.6) % MCV 73 L (84-94) fl MCH 24 L (28-32) pg RDW 32.4 H (13.2-15.2) % Seg Neutrophils % 80.6 H (40.0-70.0) % Seg Neuts % (Manual) 88.0 H (40.0-70.0) % Lymphocytes % (Manual) 9.0 L (13.4-35.0) % Nucleated RBC % 5.0 H (0.0-0.9) % Lymphocytes # (Manual) 0.5 L (1.2-5.4) K/mm3 Sodium 126 L (137-145) mmol/L Chloride 96.3 L (98-107) mmol/L Creatinine 0.7 L (0.8-1.3) mg/dL POC Glucose 132 H (70-105) mg/dL Medications & Allergies - Medications Allergies/Adverse Reactions: Allergies No Known Allergies Allergy (Unverified 10/03/20 12:27) Active Medications: Generic Name Dose Route Start Last Admin Trade Name Freq PRN Reason Stop Dose Admin Acetaminophen 650 mg 10/03/20 02:10 10/06/20 15:28 Acetaminophen 325 Mg Tab PO 650 mg Q4H PRN Administration Pain MILD(1-3)/Fever >100.5/ROMERO Al Hydrox/Mg Hydrox/Simethicone 30 ml 10/03/20 02:10 Alum-Mag Hydroxide-Simethicone [phone]/5ml Oral Liqd 30 Ml PO Q4H PRN Indigestion Lipase/Protease/Amylase 1 each 10/03/20 16:51 Lipase 10,500/Protease 25,000/Amylase 43,750 (Units) Dr Reis FEEDTUBE PRN PRN For Clogged Feeding Tube Dextrose 0 ml 10/02/20 22:49 10/07/20 21:13 Dextrose 50% In Water (25gm) 50 Ml Syringe IV 50 ml Q30MIN PRN Administration Hypoglycemia Protocol Ferrous Sulfate 325 mg 10/03/20 10:00 10/07/20 11:09 Ferrous Sulfate 325 Mg Tab PO 325 mg QDAY JOSE Administration Folic Acid 1 mg 10/03/20 10:00 10/07/20 11:09 Folic Acid 1 Mg Tab PO 1 mg QDAY JOSE Administration Dextrose 1,000 mls @ 50 mls/hr 10/07/20 21:00 10/07/20 21:07 D10w IV 50 mls/hr DIRECT JOSE Administration Vancomycin HCl 1,750 mg/ 535 mls @ 333 mls/hr 10/08/20 12:00 Sodium Chloride IV 10/08/20 13:36 ONCE ONE Protocol Cefepime HCl 2 gm in 100 mls @ 200 mls/hr 10/08/20 11:00 Cefepime/Ns 2 Gm/100 Ml IV Q8H JOSE Protocol Magnesium Hydroxide 30 ml 10/03/20 02:10 Magnesium Hydroxide (Mom) Oral Liqd Udc PO Q4H PRN Constipation Metoclopramide HCl 10 mg 10/03/20 02:10 Metoclopramide 10 Mg/2 Ml Inj IV Q6H PRN Nausea And Vomiting Multivitamins 1 each 10/03/20 10:00 10/07/20 11:09 Multivitamins ,Therapeutic Tab PO 1 each QDAY JOSE Administration Ondansetron HCl 4 mg 10/03/20 02:10 10/07/20 23:19 Ondansetron 4 Mg/2 Ml Inj IV 4 mg Q8H PRN Administration Nausea And Vomiting Oxycodone/Acetaminophen 1 tab 10/03/20 02:10 Oxycodone /Acetaminophen 5-325mg Tab PO Q6H PRN Pain, Moderate (4-6) Pantoprazole Sodium 40 mg 10/04/20 15:00 10/07/20 11:09 Pantoprazole 40 Mg Inj IV 40 mg QDAY JOSE Administration Promethazine HCl 25 mg 10/03/20 02:10 Promethazine 25 Mg Rect Supp AR Q6H PRN N/V IF NPO AND NO IV ACCESS Senna 8.6 mg 10/03/20 02:10 Sennosides 8.6 Mg Tab PO Q12HR PRN Constipation Simple Syrup 15 ml 10/03/20 16:51 Simple Syrup 15 Ml FEEDTUBE PRN PRN Hypoglycemia Simple Syrup 30 ml 10/03/20 16:51 Simple Syrup 15 Ml FEEDTUBE PRN PRN Hypoglycemia Sodium Bicarbonate 325 mg 10/03/20 16:51 Sodium Bicarbonate 325 Mg Tab FEEDTUBE PRN PRN For Clogged Feeding Tube Sodium Chloride 10 ml 10/03/20 10:00 10/07/20 21:13 Sodium Chloride 0.9% 10 Ml Flush Syringe IV 10 ml BID JOSE Administration HEART Score - HEART Score Troponin: Troponin T < 0.010 ng/mL (0.00-0.029) 10/02/20 23:17
[2020-10-08] MEDS ORDERED: SODIUM CHLORIDE 0.9% 1000 ML 1,000 ML IV ONE (11:41)
--- NOTE | 2020-10-08 11:43 | Progress Note ---
Assessment and Plan Acute encephalopathy hyponatremia Hypothermia, resolved Pulmonary infiltrate in right lung on CXR Atherosclerotic cerebrovascular disease Severe anemia -possible GI bleed Severe protein-calorie malnutrition Na is 126 from 128 yesterday, discussed with Dr Arreguin, to be switched to D5W with NS 50 cc/h will hold on salt tabs for now urine lytes suggestive of volume depletion, NS as above will check urine lytes TSH is normal, cortisol is pending avoid correction more than 8 mmol/ a day Subjective Date of service: 10/08/20 Principal diagnosis: hyponatremia Interval history: was restarted on D10W yesterday due to worsening hypiglycemia Objective - Vital Signs Vital signs: Vital Signs - 12hr 10/08/20 10/08/20 03:07 08:00 Temperature 96.9 F L 96.1 F L Pulse Rate 70 74 Respiratory 18 22 Rate Blood Pressure 101/70 Blood Pressure 123/92 [Right] O2 Sat by Pulse 92 100 Oximetry - General Appearance General appearance: well-developed, well-nourished EENT: ATNC, PERRL Neck: no JVD, no carotid bruit Respiratory: Present: Clear to Ascultation Cardiology: regular, S1S2 Gastrointestinal: normoactive bowel sounds Integumentary: no rash, warm and dry - Lab 10/08/20 05:00 10/08/20 05:00 Most recent lab results Calcium 9.0 mg/dL (8.4-10.2) 10/08/20 05:00 Phosphorus 3.00 mg/dL (2.5-4.5) 10/06/20 05:07 Magnesium 1.90 mg/dL (1.7-2.3) 10/06/20 05:07 Urine Sodium 10 mmol/L 10/07/20 Unknown Medications & Allergies - Medications Allergies/Adverse Reactions: Allergies No Known Allergies Allergy (Unverified 10/03/20 12:27) Active Medications: Generic Name Dose Route Start Last Admin Trade Name Freq PRN Reason Stop Dose Admin Acetaminophen 650 mg 10/03/20 02:10 10/06/20 15:28 Acetaminophen 325 Mg Tab PO 650 mg Q4H PRN Administration Pain MILD(1-3)/Fever >100.5/ROMERO Al Hydrox/Mg Hydrox/Simethicone 30 ml 10/03/20 02:10 Alum-Mag Hydroxide-Simethicone 135-155-39lz/5ml Oral Liqd 30 Ml PO Q4H PRN Indigestion Lipase/Protease/Amylase 1 each 10/03/20 16:51 Lipase 10,500/Protease 25,000/Amylase 43,750 (Units) Dr Reis FEEDTUBE PRN PRN For Clogged Feeding Tube Dextrose 0 ml 10/02/20 22:49 10/07/20 21:13 Dextrose 50% In Water (25gm) 50 Ml Syringe IV 50 ml Q30MIN PRN Administration Hypoglycemia Protocol Ferrous Sulfate 325 mg 10/03/20 10:00 10/07/20 11:09 Ferrous Sulfate 325 Mg Tab PO 325 mg QDAY JOSE Administration Folic Acid 1 mg 10/03/20 10:00 10/07/20 11:09 Folic Acid 1 Mg Tab PO 1 mg QDAY JOSE Administration Dextrose 1,000 mls @ 50 mls/hr 10/07/20 21:00 10/07/20 21:07 D10w IV 50 mls/hr DIRECT JOSE Administration Vancomycin HCl 1,750 mg/ 535 mls @ 333 mls/hr 10/08/20 12:00 Sodium Chloride IV 10/08/20 13:36 ONCE ONE Protocol Cefepime HCl 2 gm in 100 mls @ 200 mls/hr 10/08/20 11:00 Cefepime/Ns 2 Gm/100 Ml IV Q8H JOSE Protocol Magnesium Hydroxide 30 ml 10/03/20 02:10 Magnesium Hydroxide (Mom) Oral Liqd Udc PO Q4H PRN Constipation Metoclopramide HCl 10 mg 10/03/20 02:10 Metoclopramide 10 Mg/2 Ml Inj IV Q6H PRN Nausea And Vomiting Multivitamins 1 each 10/03/20 10:00 10/07/20 11:09 Multivitamins ,Therapeutic Tab PO 1 each QDAY JOSE Administration Ondansetron HCl 4 mg 10/03/20 02:10 10/07/20 23:19 Ondansetron 4 Mg/2 Ml Inj IV 4 mg Q8H PRN Administration Nausea And Vomiting Oxycodone/Acetaminophen 1 tab 10/03/20 02:10 Oxycodone /Acetaminophen 5-325mg Tab PO Q6H PRN Pain, Moderate (4-6) Pantoprazole Sodium 40 mg 10/04/20 15:00 10/07/20 11:09 Pantoprazole 40 Mg Inj IV 40 mg QDAY JOSE Administration Promethazine HCl 25 mg 10/03/20 02:10 Promethazine 25 Mg Rect Supp MD Q6H PRN N/V IF NPO AND NO IV ACCESS Senna 8.6 mg 10/03/20 02:10 Sennosides 8.6 Mg Tab PO Q12HR PRN Constipation Simple Syrup 15 ml 10/03/20 16:51 Simple Syrup 15 Ml FEEDTUBE PRN PRN Hypoglycemia Simple Syrup 30 ml 10/03/20 16:51 Simple Syrup 15 Ml FEEDTUBE PRN PRN Hypoglycemia Sodium Bicarbonate 325 mg 10/03/20 16:51 Sodium Bicarbonate 325 Mg Tab FEEDTUBE PRN PRN For Clogged Feeding Tube Sodium Chloride 10 ml 10/03/20 10:00 10/07/20 21:13 Sodium Chloride 0.9% 10 Ml Flush Syringe IV 10 ml BID JOSE Administration Sodium Chloride 2 gm 10/08/20 12:00 Sodium Chloride 1 Gm Tab PO BID JOSE
[2020-10-08] MEDS ORDERED: VANCOMYCIN 1,750 MG in SODIUM CHLORIDE 0.9% 500 ML 500 ML IV ONE (12:00)
[2020-10-08] MEDS ORDERED: D5W/0.9% NACL 1,000 ML IV SCH (13:00)
[2020-10-08] MEDS: MULTIVITAMINS ,THERAPEUTIC TAB PO SCH (14:15)
[2020-10-08] MEDS: FERROUS SULFATE 325 MG TAB PO SCH (14:15)
[2020-10-08] MEDS: FOLIC ACID 1 MG TAB PO SCH (14:15)
[2020-10-08] MEDS: CEFEPIME/NS 2 GM/100 ML 2 GM/100 ML BAG IV SCH ×2 (14:27→21:53)
[2020-10-08] MEDS: PANTOPRAZOLE 40 MG INJ IV SCH (14:27)
[2020-10-08] MEDS: SODIUM CHLORIDE 1 GM TAB PO SCH ×2 (14:28→21:54)
--- NOTE | 2020-10-08 18:04 | XRay Report ---
ABDOMEN 1 VIEW(S) 10/08/2020 5:27 PM INDICATION / CLINICAL INFORMATION: CHECK DOBHOFF PLACEMENT. COMPARISON: 10:51 AM same day FINDINGS: No Dobbhoff tube visualized within the lower chest or abdomen. Dobbhoff tube previously projected ove r the mid thoracic esophagus on more superior position chest x-ray Signer Name: Rolando Martinez MD Signed: 10/08/2020 5:59 PM Workstation Name: [id number]
[2020-10-08] MEDS ORDERED: DEXTROSE 50% IN WATER (25GM) 50 ML SYRINGE IV ONE (18:09)
[2020-10-08] MEDS: D5W/0.9% NACL 1,000 ML IV SCH (18:31)
[2020-10-08] MEDS: DEXTROSE 50% IN WATER (25GM) 50 ML SYRINGE IV PRN (22:31)
[2020-10-09] MEDS: DEXTROSE 50% IN WATER (25GM) 50 ML SYRINGE IV PRN ×2 (01:46→05:54)
[2020-10-09] MEDS: CEFEPIME/NS 2 GM/100 ML 2 GM/100 ML BAG IV SCH ×3 (03:05→22:52)
[2020-10-09] MEDS: D5W/0.9% NACL 1,000 ML IV SCH (04:15)
[2020-10-09] MEDS ORDERED: DEXTROSE 10% IN WATER 1,000 ML IV SCH (06:00)
[2020-10-09 06:44] LABS: BUN/Creatinine Ratio 20; Blood Urea Nitrogen 20 mg/dL (9-20); Calcium 9.2 mg/dL (8.4-10.2); Hemolysis Index 2
[2020-10-09 07:46] LABS: Hematocrit 33.8 % (35.5-45.6); Hemoglobin 10.3 gm/dl (11.8-15.2); Mean Corpuscular HGB Conc 31 % (32-34); Mean Corpuscular Volume 77 fl (84-94); Red Blood Count 4.38 M/mm3 (3.65-5.03)
--- NOTE | 2020-10-09 07:46 | Consultation ---
History of Present Illness Consult date: 10/09/20 Reason for Consult: change mentation 10/03/20 History of present illness: AMS History of present illness: History: 74 yo man who presented with AMS and left sided weakness. Last known well 12 hrs ago 10/03/20 at breakfast time. patient in his bed incontinent in feces/urine. EMS noted unable to repeat, and only able to answer very simple questions. Patient seen at bedside in the ED. patient awake, confused, unable to answer questions appropriately. Patient history and present illness explained by EMT document with patient. CT of the head no acute finding but showed a cerebral atrophy with suspicious atrophy and atherosclerotic calcification within the distal right middle cerebral artery. pt. is still with altered mentation MRI brain is unremarkable on 10/02/2020 [facility] EF#25-30% Past History Past Medical History: GERD Past Surgical History: No surgical history Social history: no significant social history, alcohol abuse (Per patient his) Family history: no significant family history (Unable to get information from the patient secondary to altered mental status) Medications and Allergies Allergies Allergy/AdvReac Type Severity Reaction Status Date / Time Unable to Assess Allergy Unverified 10/03/20 00:39 Active Meds: Active Medications Aspirin (Aspirin 81 Mg Tab Chew) 324 mg PO ONCE ONE Stop: 10/03/20 00:32 Dextrose (Dextrose 50% In Water (25gm) 50 Ml Syringe) 50 ml IV Q30MIN PRN; Protocol PRN Reason: Hypoglycemia Dextrose (Dextrose 50% In Water (25gm) 50 Ml Syringe) 50 ml IV ONCE ONE; Katarina col Stop: 10/02/20 22:50 Dextrose (D10w) 1,000 mls @ 150 mls/hr IV DIRECT JOSE Azithromycin (Zithromax/Ns) 500 mg in 250 mls @ 250 mls/hr IV ONCE ONE; Protocol Stop: 10/03/20 01:16 Ceftriaxone Sodium (Rocephin/Ns 1 Gm/50 Ml) 1 gm in 50 mls @ 100 mls/hr IV ONCE ONE; Protocol Stop: 10/03/20 00:46 Sodium Chloride (Nacl 0.9% 1000 Ml) 2,000 mls @ 999 mls/hr IV BOLUS ONE Stop: 10/03/20 02:25 Review of Systems Constitutional: weakness Ears, nose, mouth and throat: no epistaxis, no bleeding gums Cardiovascular: no shortness of breath, no dyspnea on exertion Respiratory: no wheezing Gastrointestinal: no melena, no hematochezia Neurological: aphasia, confusion, memory loss, no convulsions Psychiatric: confusion Endocrine: no excessive sweating Hematologic/Lymphatic: no easy bruising, no easy bleeding, no lymphadenopathy, no lymphedema Allergic/Immunologic: no urticaria, no allergic rhinitis Past History Past Medical History: GERD Past Surgical History: No surgical history Social history: no significant social history, alcohol abuse (Per patient his) Family history: no significant family history (Unable to get information from the patient secondary to altered mental status) Medications and Allergies Allergies Allergy/AdvReac Type Severity Reaction Status Date / Time No Known Allergies Allergy Unverified 10/03/20 12:27 Active Meds: Active Medications Acetaminophen (Acetaminophen 325 Mg Tab) 650 mg PO Q4H PRN PRN Reason: Pain MILD(1-3)/Fever >100.5/ROMERO Last Admin: 10/06/20 15:28 Dose: 650 mg Documented by: Al Hydrox/Mg Hydrox/Simethicone (Alum-Mag Hydroxide-Simethicone 159-033-99cf/5ml Oral Liqd 30 Ml) 30 ml PO Q4H PRN PRN Reason: Indigestion Lipase/Protease/Amylase (Lipase 10,500/Protease 25,000/Amylase 43,750 (Units) Dr Reis) 1 each FEEDTUBE PRN PRN PRN Reason: For Clogged Feeding Tube Dextrose (Dextrose 50% In Water (25gm) 50 Ml Syringe) 0 ml IV Q30MIN PRN; Protocol PRN Reason: Hypoglycemia Last Admin: 10/09/20 05:54 Dose: 50 ml Documented by: Ferrous Sulfate (Ferrous Sulfate 325 Mg Tab) 325 mg PO QDAY JOSE Last Admin: 10/08/20 14:15 Dose: Not Given Documented by: Folic Acid (Folic Acid 1 Mg Tab) 1 mg PO QDAY JOSE Last Admin: 10/08/20 14:15 Dose: Not Given Documented by: Cefepime HCl (Cefepime/Ns 2 Gm/100 Ml) 2 gm in 100 mls @ 200 mls/hr IV Q8H JOSE; Protocol Last Admin: 10/09/20 03:05 Dose: 200 mls/hr Documented by: Dextrose (D10w) 1,000 mls @ 100 mls/hr IV DIRECT JOSE Last Admin: 10/09/20 06:25 Dose: 100 mls/hr Documented by: Vancomycin HCl 1,250 mg/ (Sodium Chloride) 275 mls @ 183.333 mls/hr IV Q24H [facility] Magnesium Hydroxide (Magnesium Hydroxide (Mom) Oral Liqd Udc) 30 ml PO Q4H PRN PRN Reason: Constipation Metoclopramide HCl (Metoclopramide 10 Mg/2 Ml Inj) 10 mg IV Q6H PRN PRN Reason: Nausea And Vomiting Multivitamins (Multivitamins ,Therapeutic Tab) 1 each PO QDAY [facility] Last Admin: 10/08/20 14:15 Dose: Not Given Documented by: Ondansetron HCl (Ondansetron 4 Mg/2 Ml Inj) 4 mg IV Q8H PRN PRN Reason: Nausea And Vomiting Last Admin: 10/07/20 23:19 Dose: 4 mg Documented by: Oxycodone/Acetaminophen (Oxycodone /Acetaminophen 5-325mg Tab) 1 tab PO Q6H PRN PRN Reason: Pain, Moderate (4-6) Pantoprazole Sodium (Pantoprazole 40 Mg Inj) 40 mg IV QDAY [facility] Last Admin: 10/08/20 14:27 Dose: 40 mg Documented by: Promethazine HCl (Promethazine 25 Mg Rect Supp) 25 mg OK Q6H PRN PRN Reason: N/V IF NPO AND NO IV ACCESS Senna (Sennosides 8.6 Mg Tab) 8.6 mg PO Q12HR PRN PRN Reason: Constipation Simple Syrup (Simple Syrup 15 Ml) 15 ml FEEDTUBE PRN PRN PRN Reason: Hypoglycemia Simple Syrup (Simple Syrup 15 Ml) 30 ml FEEDTUBE PRN PRN PRN Reason: Hypoglycemia Sodium Bicarbonate (Sodium Bicarbonate 325 Mg Tab) 325 mg FEEDTUBE PRN PRN PRN Reason: For Clogged Feeding Tube Sodium Chloride (Sodium Chloride 1 Gm Tab) 2 gm PO BID [facility] Last Admin: 10/08/20 21:54 Dose: Not Given Documented by: Physical Examination - Vital Signs Vital Signs: Vital Signs Temp Pulse Resp BP Pulse Ox 90.1 F L 98 H 16 128/75 99 10/03/20 00:39 10/03/20 00:39 10/03/20 00:39 10/03/20 00:39 10/03/20 00:39 - Constitutional General appearance: uncomfortable - EENT EENT: Present: PERRL, mucous membranes moist - Respiratory Respiratory: Present: chest non-tender, lungs clear, rhonchi - Cardiovascular Cardiovascular: Present: regular rate, normal S1, normal S2 Extremities: Present: no peripheral edema bilatateraly, no clubbing, cyanosis - Gastrointestinal Gastrointestinal: Present: normoactive bowel sounds - Integumentary Integumentary: Present: normal - Neurologic Cranial nerve examination: anosmic, PERRL, EOMI, other (pupils constriced poorly reactive with slight deviation to left ,he is with right facial droop !!!) Speech examination: other (no speech out put) Detailed motor examination: other (slight withdrawal to pain stimuli bilateral .) Results - Laboratory Findings CBC and BMP: 10/09/20 06:32 10/09/20 05:07 Abnormal Lab Findings: Abnormal Labs 10/02/20 10/02/20 10/02/20 23:17 23:17 23:17 WBC RBC 3.31 L Hgb 6.7 L Hct 21.8 L MCV 66 L MCH 20 L MCHC 31 L RDW 31.7 H Seg Neutrophils % Seg Neuts % (Manual) 79.0 H Lymphocytes % (Manual) 11.0 L Monocytes % (Manual) 10.0 H Nucleated RBC % Seg Neutrophils # Man Lymphocytes # (Manual) 0.9 L Monocytes # (Manual) PT 20.8 H INR 1.74 H APTT 57.6 H Sodium Potassium Chloride Carbon Dioxide Creatinine Glucose 42 L POC Glucose Lactic Acid Iron Ammonia CK-MB (CK-2) 7.5 H CK-MB (CK-2) Rel Index 8.5 H Total Protein Albumin 2.9 L Salicylates Acetaminophen Crossmatch 10/02/20 10/02/20 10/02/20 23:17 23:17 23:17 WBC RBC Hgb Hct MCV MCH MCHC RDW Seg Neutrophils % Seg Neuts % (Manual) Lymphocytes % (Manual) Monocytes % (Manual) Nucleated RBC % Seg Neutrophils # Man Lymphocytes # (Manual) Monocytes # (Manual) PT INR APTT Sodium Potassium Chloride Carbon Dioxide Creatinine Glucose POC Glucose Lactic Acid 2.20 H* Iron Ammonia 22.0 L CK-MB (CK-2) CK-MB (CK-2) Rel Index Total Protein Albumin Salicylates < 0.3 L Acetaminophen Crossmatch 10/02/20 10/03/20 10/03/20 23:17 05:57 05:57 WBC RBC 2.66 L Hgb 5.3 L* Hct 17.8 L* MCV 67 L MCH 20 L MCHC 30 L RDW 32.1 H Seg Neutrophils % Seg Neuts % (Manual) Lymphocytes % (Manual) 2.0 L Monocytes % (Manual) Nucleated RBC % 1.0 H Seg Neutrophils # Man 8.6 H Lymphocytes # (Manual) 0.2 L Monocytes # (Manual) PT INR APTT Sodium Potassium Chloride Carbon Dioxide Creatinine Glucose POC Glucose Lactic Acid Iron Ammonia CK-MB (CK-2) CK-MB (CK-2) Rel Index Total Protein Albumin Salicylates Acetaminophen 5.0 L Crossmatch See Detail 10/03/20 10/03/20 10/03/20 05:57 05:57 06:00 WBC RBC Hgb Hct MCV MCH MCHC RDW Seg Neutrophils % Seg Neuts % (Manual) Lymphocytes % (Manual) Monocytes % (Manual) Nucleated RBC % Seg Neutrophils # Man Lymphocytes # (Manual) Monocytes # (Manual) PT INR APTT Sodium Potassium Chloride Carbon Dioxide Creatinine Glucose 52 L POC Glucose 31 L Lactic Acid Iron 42 L Ammonia CK-MB (CK-2) CK-MB (CK-2) Rel Index Total Protein 5.8 L Albumin 3.1 L Salicylates Acetaminophen Crossmatch 10/03/20 10/03/20 10/03/20 07:34 09:43 10:57 WBC RBC Hgb Hct MCV MCH MCHC RDW Seg Neutrophils % Seg Neuts % (Manual) Lymphocytes % (Manual) Monocytes % (Manual) Nucleated RBC % Seg Neutrophils # Man Lymphocytes # (Manual) Monocytes # (Manual) PT INR APTT Sodium Potassium Chloride Carbon Dioxide Creatinine Glucose POC Glucose 59 L 41 L 31 L Lactic Acid Iron Ammonia CK-MB (CK-2) CK-MB (CK-2) Rel Index Total Protein Albumin Salicylates Acetaminophen Crossmatch 10/03/20 10/03/20 10/03/20 11:21 12:00 12:14 WBC RBC Hgb Hct MCV MCH MCHC RDW Seg Neutrophils % Seg Neuts % (Manual) Lymphocytes % (Manual) Monocytes % (Manual) Nucleated RBC % Seg Neutrophils # Man Lymphocytes # (Manual) Monocytes # (Manual) PT INR APTT Sodium Potassium Chloride Carbon Dioxide Creatinine Glucose POC Glucose 62 L 26 L 140 H Lactic Acid Iron Ammonia CK-MB (CK-2) CK-MB (CK-2) Rel Index Total Protein Albumin Salicylates Acetaminophen Crossmatch 10/03/20 10/03/20 10/03/20 13:33 14:19 14:59 WBC RBC Hgb Hct MCV MCH MCHC RDW Seg Neutrophils % Seg Neuts % (Manual) Lymphocytes % (Manual) Monocytes % (Manual) Nucleated RBC % Seg Neutrophils # Man Lymphocytes # (Manual) Monocytes # (Manual) PT INR APTT Sodium Potassium Chloride Carbon Dioxide Creatinine Glucose POC Glucose 24 L 59 L 40 L Lactic Acid Iron Ammonia CK-MB (CK-2) CK-MB (CK-2) Rel Index Total Protein Albumin Salicylates Acetaminophen Crossmatch 10/03/20 10/03/20 10/03/20 15:26 15:57 16:35 WBC RBC Hgb Hct MCV MCH MCHC RDW Seg Neutrophils % Seg Neuts % (Manual) Lymphocytes % (Manual) Monocytes % (Manual) Nucleated RBC % Seg Neutrophils # Man Lymphocytes # (Manual) Monocytes # (Manual) PT INR APTT Sodium Potassium Chloride Carbon Dioxide Creatinine Glucose POC Glucose 54 L 45 L 42 L Lactic Acid Iron Ammonia CK-MB (CK-2) CK-MB (CK-2) Rel Index Total Protein Albumin Salicylates Acetaminophen Crossmatch 10/03/20 10/03/20 10/03/20 17:16 18:37 19:56 WBC RBC Hgb Hct MCV MCH MCHC RDW Seg Neutrophils % Seg Neuts % (Manual) Lymphocytes % (Manual) Monocytes % (Manual) Nucleated RBC % Seg Neutrophils # Man Lymphocytes # (Manual) Monocytes # (Manual) PT INR APTT Sodium Potassium Chloride Carbon Dioxide Creatinine Glucose POC Glucose 41 L 46 L 57 L Lactic Acid Iron Ammonia CK-MB (CK-2) CK-MB (CK-2) Rel Index Total Protein Albumin Salicylates Acetaminophen Crossmatch 10/03/20 10/04/20 10/04/20 21:32 01:04 01:11 WBC RBC Hgb 9.6 L D Hct 28.3 L D MCV MCH MCHC RDW Seg Neutrophils % Seg Neuts % (Manual) Lymphocytes % (Manual) Monocytes % (Manual) Nucleated RBC % Seg Neutrophils # Man Lymphocytes # (Manual) Monocytes # (Manual) PT INR APTT Sodium Potassium Chloride Carbon Dioxide Creatinine Glucose POC Glucose 65 L 51 L Lactic Acid Iron Ammonia CK-MB (CK-2) CK-MB (CK-2) Rel Index Total Protein Albumin Salicylates Acetaminophen Crossmatch 10/04/20 10/04/20 10/04/20 05:59 05:59 15:10 WBC 13.4 H RBC Hgb 9.9 L 10.1 L Hct 32.0 L 31.8 L MCV 76 L MCH 24 L MCHC 31 L RDW 31.3 H Seg Neutrophils % Seg Neuts % (Manual) 86.0 H Lymphocytes % (Manual) 6.0 L Monocytes % (Manual) 8.0 H Nucleated RBC % 2.0 H Seg Neutrophils # Man 11.5 H Lymphocytes # (Manual) 0.8 L Monocytes # (Manual) 1.1 H PT INR APTT Sodium 136 L Potassium 3.5 L Chloride Carbon Dioxide 19 L D Creatinine Glucose POC Glucose Lactic Acid Iron Ammonia CK-MB (CK-2) CK-MB (CK-2) Rel Index Total Protein Albumin 2.6 L Salicylates Acetaminophen Crossmatch 10/04/20 10/04/20 10/05/20 16:28 22:33 04:43 WBC RBC Hgb 10.5 L Hct 32.5 L MCV MCH MCHC RDW Seg Neutrophils % Seg Neuts % (Manual) Lymphocytes % (Manual) Monocytes % (Manual) Nucleated RBC % Seg Neutrophils # Man Lymphocytes # (Manual) Monocytes # (Manual) PT INR APTT Sodium Potassium Chloride Carbon Dioxide Creatinine Glucose POC Glucose 66 L 113 H Lactic Acid Iron Ammonia CK-MB (CK-2) CK-MB (CK-2) Rel Index Total Protein Albumin Salicylates Acetaminophen Crossmatch 10/05/20 10/05/20 10/05/20 05:00 09:42 11:57 WBC RBC Hgb 9.8 L Hct 30.5 L MCV 74 L MCH 24 L MCHC RDW 31.6 H Seg Neutrophils % Seg Neuts % (Manual) Lymphocytes % (Manual) Monocytes % (Manual) Nucleated RBC % Seg Neutrophils # Man Lymphocytes # (Manual) Monocytes # (Manual) PT INR APTT Sodium 132 L Potassium 3.5 L Chloride Carbon Dioxide 19 L Creatinine 0.7 L Glucose POC Glucose 129 H Lactic Acid Iron Ammonia CK-MB (CK-2) CK-MB (CK-2) Rel Index Total Protein Albumin Salicylates Acetaminophen Crossmatch 10/05/20 10/05/20 10/06/20 16:47 21:51 05:07 WBC RBC Hgb 9.4 L Hct 30.1 L MCV 76 L MCH 24 L MCHC 31 L RDW 31.1 H Seg Neutrophils % Seg Neuts % (Manual) Lymphocytes % (Manual) Monocytes % (Manual) Nucleated RBC % Seg Neutrophils # Man Lymphocytes # (Manual) Monocytes # (Manual) PT INR APTT Sodium Potassium Chloride Carbon Dioxide Creatinine Glucose POC Glucose 132 H 115 H Lactic Acid Iron Ammonia CK-MB (CK-2) CK-MB (CK-2) Rel Index Total Protein Albumin Salicylates Acetaminophen Crossmatch 10/06/20 10/06/20 10/06/20 05:07 15:37 21:01 WBC RBC Hgb Hct MCV MCH MCHC RDW Seg Neutrophils % Seg Neuts % (Manual) Lymphocytes % (Manual) Monocytes % (Manual) Nucleated RBC % Seg Neutrophils # Man Lymphocytes # (Manual) Monocytes # (Manual) PT INR APTT Sodium 133 L Potassium 3.5 L Chloride Carbon Dioxide 21 L Creatinine 0.6 L Glucose 105 H POC Glucose 136 H 108 H Lactic Acid Iron Ammonia CK-MB (CK-2) CK-MB (CK-2) Rel Index Total Protein Albumin Salicylates Acetaminophen Crossmatch 10/07/20 10/07/20 10/07/20 04:52 04:52 06:07 WBC RBC Hgb 9.6 L Hct 29.4 L MCV 73 L MCH 24 L MCHC RDW 32.2 H Seg Neutrophils % Seg Neuts % (Manual) Lymphocytes % (Manual) Monocytes % (Manual) Nucleated RBC % Seg Neutrophils # Man Lymphocytes # (Manual) Monocytes # (Manual) PT INR APTT Sodium 128 L Potassium Chloride Carbon Dioxide 20 L Creatinine 0.7 L Glucose POC Glucose 110 H Lactic Acid Iron Ammonia CK-MB (CK-2) CK-MB (CK-2) Rel Index Total Protein Albumin Salicylates Acetaminophen Crossmatch 10/07/20 10/07/20 10/07/20 17:09 18:53 20:35 WBC RBC Hgb Hct MCV MCH MCHC RDW Seg Neutrophils % Seg Neuts % (Manual) Lymphocytes % (Manual) Monocytes % (Manual) Nucleated RBC % Seg Neutrophils # Man Lymphocytes # (Manual) Monocytes # (Manual) PT INR APTT Sodium Potassium Chloride Carbon Dioxide Creatinine Glucose POC Glucose 67 L 66 L 62 L Lactic Acid Iron Ammonia CK-MB (CK-2) CK-MB (CK-2) Rel Index Total Protein Albumin Salicylates Acetaminophen Crossmatch 10/07/20 10/08/20 10/08/20 21:55 05:00 05:00 WBC RBC Hgb 9.6 L Hct 29.4 L MCV 73 L MCH 24 L MCHC RDW 32.4 H Seg Neutrophils % 80.6 H Seg Neuts % (Manual) 88.0 H Lymphocytes % (Manual) 9.0 L Monocytes % (Manual) Nucleated RBC % 5.0 H Seg Neutrophils # Man Lymphocytes # (Manual) 0.5 L Monocytes # (Manual) PT INR APTT Sodium 126 L Potassium Chloride 96.3 L Carbon Dioxide Creatinine 0.7 L Glucose POC Glucose 132 H Lactic Acid Iron Ammonia CK-MB (CK-2) CK-MB (CK-2) Rel Index Total Protein Albumin Salicylates Acetaminophen Crossmatch 10/08/20 10/09/20 10/09/20 22:26 01:36 02:22 WBC RBC Hgb Hct MCV MCH MCHC RDW Seg Neutrophils % Seg Neuts % (Manual) Lymphocytes % (Manual) Monocytes % (Manual) Nucleated RBC % Seg Neutrophils # Man Lymphocytes # (Manual) Monocytes # (Manual) PT INR APTT Sodium Potassium Chloride Carbon Dioxide Creatinine Glucose POC Glucose 63 L 62 L 151 H Lactic Acid Iron Ammonia CK-MB (CK-2) CK-MB (CK-2) Rel Index Total Protein Albumin Salicylates Acetaminophen Crossmatch 10/09/20 10/09/20 10/09/20 05:07 05:42 06:35 WBC RBC Hgb Hct MCV MCH MCHC RDW Seg Neutrophils % Seg Neuts % (Manual) Lymphocytes % (Manual) Monocytes % (Manual) Nucleated RBC % Seg Neutrophils # Man Lymphocytes # (Manual) Monocytes # (Manual) PT INR APTT Sodium 126 L Potassium Chloride 97.8 L Carbon Dioxide 20 L Creatinine Glucose 58 L POC Glucose 48 L 106 H Lactic Acid Iron Ammonia CK-MB (CK-2) CK-MB (CK-2) Rel Index Total Protein Albumin Salicylates Acetaminophen Crossmatch Assessment and Plan Assessment and Plan Assessment and plan: 74 yo man who presented with AMS and left sided weakness. Patient was found by caregiver in his bed incontinent in feces/urine. Assessment and plan: # Acute encephalopathy -CT angio of the head that is a significant narrowing seen in both posterior cerebral arteries - and no signs of large vessel -CT of the head no acute finding but showed a cerebral atrophy with suspicious atrophy and atherosclerotic calcification within the distal right middle cerebral artery. -MRI brain without any acute findings - EEG today -cannot r/o acute seizure with postictal state -will repeat MRI brain due to right facial droop -start on Keppra 750 mg IV bid !!! #Left-sided hemiparesis with significant aphasia Placed on stroke protocol, neurology following, failed swallow eval MRI brain without any new findings, EEG ordered and pending Aspirin due to severe anemia, will initiate Lipitor when able to tolerate tube feeding # Hypothermia, resolved Monitor body temperature Applied bed hugger # Pulmonary infiltrate in right lung on CXR COVID-19 test is negative Likely secondary to pneumonia Start empiric antibiotics Rocephin and azithromycin # Atherosclerotic cerebrovascular disease Safety and fall precaution at all times PT OT consult follow-up with recommendation for discharge placement #Severe anemia -possible GI bleed? 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 2- Keppra 750 mg IV bid 3- Repeat Brain MRI 4- correct electrolytes abn, and Hypoglycemia , treat underlying infection over all prognosis is quarded will follow
[2020-10-09 08:09] LABS: Red Cell Distribution Width 33.6 % (13.2-15.2)
[2020-10-09] MEDS: FOLIC ACID 1 MG TAB PO SCH ×2 (09:22→16:47)
[2020-10-09] MEDS: MULTIVITAMINS ,THERAPEUTIC TAB PO SCH ×2 (09:22→16:47)
[2020-10-09] MEDS: FERROUS SULFATE 325 MG TAB PO SCH ×2 (09:22→16:46)
[2020-10-09] MEDS: SODIUM CHLORIDE 1 GM TAB PO SCH ×4 (09:22→22:57)
[2020-10-09] MEDS: PANTOPRAZOLE 40 MG INJ IV SCH (09:23)
--- NOTE | 2020-10-09 10:47 | Progress Note ---
Assessment and Plan Acute encephalopathy hyponatremia Hypothermia, resolved Pulmonary infiltrate in right lung on CXR Atherosclerotic cerebrovascular disease Severe anemia -possible GI bleed Severe protein-calorie malnutrition cont to be on D10W, wihc is likely to be the etiology of hypnatremia will start salt tabs 2 gras TID avoid correction more than 8 mmol/ a day Subjective Date of service: 10/09/20 Principal diagnosis: hyponatremia Interval history: appears comfortable, no overnight events Objective - Vital Signs Vital signs: Vital Signs - 12hr 10/09/20 10/09/20 10/09/20 01:52 02:00 07:58 Temperature 97.4 F L Pulse Rate 69 66 Respiratory 16 Rate Blood Pressure 108/88 O2 Sat by Pulse 95 97 Oximetry - Lab 10/09/20 06:32 10/09/20 05:07 Most recent lab results Calcium 9.2 mg/dL (8.4-10.2) 10/09/20 05:07 Phosphorus 3.00 mg/dL (2.5-4.5) 10/06/20 05:07 Magnesium 1.90 mg/dL (1.7-2.3) 10/06/20 05:07 Urine Sodium 10 mmol/L 10/07/20 Unknown Medications & Allergies - Medications Allergies/Adverse Reactions: Allergies No Known Allergies Allergy (Unverified 10/03/20 12:27) Active Medications: Generic Name Dose Route Start Last Admin Trade Name Freq PRN Reason Stop Dose Admin Acetaminophen 650 mg 10/03/20 02:10 10/06/20 15:28 Acetaminophen 325 Mg Tab PO 650 mg Q4H PRN Administration Pain MILD(1-3)/Fever >100.5/ROMERO Al Hydrox/Mg Hydrox/Simethicone 30 ml 10/03/20 02:10 Alum-Mag Hydroxide-Simethicone 550-203-50yd/5ml Oral Liqd 30 Ml PO Q4H PRN Indigestion Lipase/Protease/Amylase 1 each 10/03/20 16:51 Lipase 10,500/Protease 25,000/Amylase 43,750 (Units) Dr Reis FEEDTUBE PRN PRN For Clogged Feeding Tube Dextrose 0 ml 10/02/20 22:49 10/09/20 05:54 Dextrose 50% In Water (25gm) 50 Ml Syringe IV 50 ml Q30MIN PRN Administration Hypoglycemia Protocol Ferrous Sulfate 325 mg 10/03/20 10:00 10/09/20 09:22 Ferrous Sulfate 325 Mg Tab PO Not Given QDAY [facility] Folic Acid 1 mg 10/03/20 10:00 10/09/20 09:22 Folic Acid 1 Mg Tab PO Not Given QDAY [facility] Cefepime HCl 2 gm in 100 mls @ 200 mls/hr 10/08/20 11:00 10/09/20 03:05 Cefepime/Ns 2 Gm/100 Ml IV 200 mls/hr Q8H JOSE Administration Protocol Dextrose 1,000 mls @ 100 mls/hr 10/09/20 06:00 10/09/20 06:25 D10w IV 100 mls/hr DIRECT JOSE Administration Vancomycin HCl 1,250 mg/ 275 mls @ 183.333 mls/hr 10/09/20 22:00 Sodium Chloride IV Q24H JOSE Magnesium Hydroxide 30 ml 10/03/20 02:10 Magnesium Hydroxide (Mom) Oral Liqd Udc PO Q4H PRN Constipation Metoclopramide HCl 10 mg 10/03/20 02:10 Metoclopramide 10 Mg/2 Ml Inj IV Q6H PRN Nausea And Vomiting Multivitamins 1 each 10/03/20 10:00 10/09/20 09:22 Multivitamins ,Therapeutic Tab PO Not Given QDAY [facility] Ondansetron HCl 4 mg 10/03/20 02:10 10/07/20 23:19 Ondansetron 4 Mg/2 Ml Inj IV 4 mg Q8H PRN Administration Nausea And Vomiting Oxycodone/Acetaminophen 1 tab 10/03/20 02:10 Oxycodone /Acetaminophen 5-325mg Tab PO Q6H PRN Pain, Moderate (4-6) Pantoprazole Sodium 40 mg 10/04/20 15:00 10/09/20 09:23 Pantoprazole 40 Mg Inj IV 40 mg QDAY [facility] Administration Promethazine HCl 25 mg 10/03/20 02:10 Promethazine 25 Mg Rect Supp [place] Q6H PRN N/V IF NPO AND NO IV ACCESS Senna 8.6 mg 10/03/20 02:10 Sennosides 8.6 Mg Tab PO Q12HR PRN Constipation Simple Syrup 15 ml 10/03/20 16:51 Simple Syrup 15 Ml FEEDTUBE PRN PRN Hypoglycemia Simple Syrup 30 ml 10/03/20 16:51 Simple Syrup 15 Ml FEEDTUBE PRN PRN Hypoglycemia Sodium Bicarbonate 325 mg 10/03/20 16:51 Sodium Bicarbonate 325 Mg Tab FEEDTUBE PRN PRN For Clogged Feeding Tube Sodium Chloride 2 gm 10/09/20 11:00 Sodium Chloride 1 Gm Tab PO TID JOSE
--- NOTE | 2020-10-09 12:17 | Progress Note ---
Assessment and Plan Assessment and plan: 74 yo man who presented with AMS and left sided weakness. Patient was found by caregiver in his bed incontinent in feces/urine. Assessment and plan: -- Acute encephalopathy CT angio of the head that is a significant narrowing seen in both posterior cerebral arteries and no signs of large vessel CT of the head no acute finding but showed a cerebral atrophy with suspicious atrophy and atherosclerotic calcification within the distal right middle cerebral artery. MRI brain without any acute findings Neurology consulted, will follow EEG -cannot r/o acute seizure with postictal state --Left-sided hemiparesis with significant aphasia Placed on stroke protocol, neurology following, failed swallow eval MRI brain without any new findings, EEG ordered and pending Aspirin due to severe anemia, will initiate Lipitor when able to tolerate tube feeding -- Hypothermia, resolved Monitor body temperature Applied bed hugger -- Pulmonary infiltrate in right lung on CXR COVID-19 test is negative Likely secondary to pneumonia Start empiric antibiotics Rocephin and azithromycin -- Atherosclerotic cerebrovascular disease Safety and fall precaution at all times PT OT consult follow-up with recommendation for discharge placement --Severe anemia -possible GI bleed? Likely 2/2 to malnutrion-patient has no evidence of active bleeding and has normal PLT Monitor H&Hadmission H&H 6.7> 5.8 S/p 3 units of blood transfusion Iron and multivitamin supplement Check iron level, ordered stool for occult blood GI consulted -- Severe protein-calorie malnutrition manager actuarial consult, failed swallow eval Order for Dobbhoff tube and Tube feeding --Persistent hypoglycemia, patient placed D10, will also initiate tube feeding -- DVT prophylaxis ACD hold Subcutaneous anticoagulant due to low H/H Daily clinical course: 10/03/20: CT of the head no acute finding but showed a cerebral atrophy with suspicious atrophy and atherosclerotic calcification within the distal right middle cerebral artery. Patient also noted with hemoglobin of 5.8, received 1 unit of packed RBC and ordered for tomorrow Neuro is consulted, Covid test is negative We will check stool for occult blood MRI brain ordered we will follow Will hold any oral medicine until cleared by speech or passes the bedside swallow eval Patient noted to have severe hypoglycemic, will place on D10W Follow H&H and BMP Continue current management plan as dictated in the HPI 10/04/20: no acute findings in MRI, pending EEG, s/p 3 units PRBC transfusion. follow speech eval, TF for now, h/h stable, GI consulted - follow recommendation. 10/05/20 Patient with acute encephalopathy, severe anemia s/p PRBC transfusion. GI following. Hgb 9.8 today. Will repeat in am. Left sided weakness. MRI negative for stroke. Neurology following. 10/06/20 Patient with encephalopathy, severe anemia s/p PRBC transfusion. Hgb 9.4 today. Patient has left sided weakness but MRI neg. Patient needs PEG tube. Will talk with family. Hypokalemia. Replace Q6h X 2. Check Mg 10/07/20 Patient with encephalopathy, severe anemia s/p PRBC transfusion. Hgb 9.6 today. Patient has left sided weakness but MRI neg. Patient needs PEG tube. Will talk with family. Hyponatremia of 128. This may be due to D10% he was on prior to NG tube. Stopped 10% Dextrose. Consulted Nephrology 10/08/20 Patient with encephalopathy, severe anemia s/p PRBC transfusion. Hgb 9.6 today. Patient has left sided weakness but MRI neg. Patient needs PEG tube. Hyponatremia worse today 126. This is due to D10% resumed last night because of hypoglycemia. I discussed with Dr. Herrera. Stop 10%Dextrose. Start D5NS Spoke to daughterCindy, yesterday and gave update. She wants PEG tube placed. Discussed plan with PAKO Chambers. He wants to do upper and lower endoscopy to evaluate anemia, before PEG tube 10/09/20 Patient with encephalopathy, severe anemia s/p PRBC transfusion. Hgb 10.3 today. Patient has left sided weakness but MRI neg. Patient needs PEG tube. Hyponatremia still present Na 126 today. This is due to D10% resumed again last night because of hypoglycemia. Nephrology had recommended D5NS but 10% Dextrose restarted overnight because of hypoglycemia. Nurses unable to place NG tube. I discussed with Dr. Otero today and he will do. Spoke to daughterCindy, yesterday and gave update. She wants PEG tube placed. Discussed plan with PAKO Chambers. He wants to do upper and lower endoscopy to evaluate anemia, before PEG tube Today Na still 126. I discussed with Dr. Herrera and he recommended D10NS. I called Pharmacy. They will mix special D10NS drip. Patient had bilateral pneumonia on CXR therefore started iv Antibiotics, blood cultures. yesterday. Consulted ID History Interval history: Altered mental status Low sodium Nurses had difficulty placing NG tube Hospitalist Physical - Physical exam Narrative exam: Gen:Not in acute distress, lying in bed, HEENT:Normocephalic, atraumatic Neck: supple, no JVD Lungs: Clear to auscultation bilaterally, no wheeze Heart:S1 and S2 reg, no murmurs, rubs or gallop Abd:Soft, non tender, non distended, normal bowel sounds, Ext:No edema. no clubbing, no cyanosis Neuro: Awake, Right sided weakness - Constitutional Vitals: Temp Pulse Resp BP Pulse Ox 97.4 F L 66 16 108/88 97 10/09/20 07:58 10/09/20 07:58 10/09/20 07:58 10/09/20 07:58 10/09/20 07:58 General appearance: Present: well-nourished HEART Score - HEART Score Troponin: Troponin T < 0.010 ng/mL (0.00-0.029) 10/02/20 23:17 Results - Labs CBC & Chem 7: 10/09/20 06:32 10/09/20 05:07 Labs: Laboratory Last Values WBC 10.6 K/mm3 (4.5-11.0) 10/09/20 06:32 RBC 4.38 M/mm3 (3.65-5.03) 10/09/20 06:32 Hgb 10.3 gm/dl (11.8-15.2) L 10/09/20 06:32 Hct 33.8 % (35.5-45.6) L 10/09/20 06:32 MCV 77 fl (84-94) L 10/09/20 06:32 MCH 24 pg (28-32) L 10/09/20 06:32 MCHC 31 % (32-34) L 10/09/20 06:32 RDW 33.6 % (13.2-15.2) H 10/09/20 06:32 Plt Count 173 K/mm3 (140-440) 10/08/20 05:00 [place] % (Auto) 6.3 % (0.0-7.3) 10/08/20 05:00 Eos % (Auto) 0.8 % (0.0-4.3) 10/08/20 05:00 [place] # (Auto) 0.3 K/mm3 (0.0-0.8) 10/08/20 05:00 Eos # (Auto) 0.0 K/mm3 (0.0-0.4) 10/08/20 05:00 Baso # (Auto) 0.1 K/mm3 (0.0-0.1) 10/08/20 05:00 Add Manual Diff Complete 10/08/20 05:00 Total Counted 100 10/08/20 05:00 Seg Neutrophils % 80.6 % (40.0-70.0) H 10/08/20 05:00 Seg Neuts % (Manual) 88.0 % (40.0-70.0) H 10/08/20 05:00 Band Neutrophils % 1.0 % 10/03/20 05:57 Lymphocytes % (Manual) 9.0 % (13.4-35.0) L 10/08/20 05:00 Monocytes % (Manual) 2.0 % (0.0-7.3) 10/08/20 05:00 Eosinophils % (Manual) 1.0 % (0.0-4.3) 10/08/20 05:00 Nucleated RBC % 5.0 % (0.0-0.9) H 10/08/20 05:00 Seg Neutrophils # 4.0 K/mm3 (1.8-7.7) 10/08/20 05:00 Seg Neutrophils # Man 4.4 K/mm3 (1.8-7.7) 10/08/20 05:00 Band Neutrophils # 0.0 K/mm3 10/08/20 05:00 Lymphocytes # (Manual) 0.5 K/mm3 (1.2-5.4) L 10/08/20 05:00 Abs React Lymphs (Man) 0.0 K/mm3 10/08/20 05:00 Monocytes # (Manual) 0.1 K/mm3 (0.0-0.8) 10/08/20 05:00 Eosinophils # (Manual) 0.1 K/mm3 (0.0-0.4) 10/08/20 05:00 Basophils # (Manual) 0.0 K/mm3 (0.0-0.1) 10/08/20 05:00 Metamyelocytes # 0.0 K/mm3 10/08/20 05:00 Myelocytes # 0.0 K/mm3 10/08/20 05:00 Promyelocytes # 0.0 K/mm3 10/08/20 05:00 Blast Cells # 0.0 K/mm3 10/08/20 05:00 WBC Morphology Not Reportable 10/08/20 05:00 Hypersegmented Neuts Not Reportable 10/08/20 05:00 Hyposegmented Neuts Not Reportable 10/08/20 05:00 Hypogranular Neuts Not Reportable 10/08/20 05:00 Smudge Cells Not Reportable 10/08/20 05:00 Toxic Granulation Not Reportable 10/08/20 05:00 Toxic Vacuolation Not Reportable 10/08/20 05:00 Dohle Bodies Not Reportable 10/08/20 05:00 Pelger-Huet Anomaly Not Reportable 10/08/20 05:00 Andrés Rods Not Reportable 10/08/20 05:00 Platelet Estimate Consistent w auto 10/08/20 05:00 Clumped Platelets Not Reportable 10/08/20 05:00 Plt Clumps, EDTA Not Reportable 10/08/20 05:00 Large Platelets Not Reportable 10/08/20 05:00 Giant Platelets Not Reportable 10/08/20 05:00 Platelet Satelliting Not Reportable 10/08/20 05:00 Plt Morphology Comment Not Reportable 10/08/20 05:00 RBC Morphology Not Reportable 10/08/20 05:00 Dimorphic RBCs Not Reportable 10/08/20 05:00 Polychromasia Not Reportable 10/08/20 05:00 Hypochromasia 2+ 10/08/20 05:00 Poikilocytosis 2+ 10/08/20 05:00 Anisocytosis 3+ 10/08/20 05:00 Microcytosis Not Reportable 10/08/20 05:00 Macrocytosis Not Reportable 10/08/20 05:00 Spherocytes Not Reportable 10/08/20 05:00 Pappenheimer Bodies Not Reportable 10/08/20 05:00 Sickle Cells Not Reportable 10/08/20 05:00 Target Cells Few 10/08/20 05:00 Tear Drop Cells Few 10/08/20 05:00 Ovalocytes Few 10/08/20 05:00 Helmet Cells Not Reportable 10/08/20 05:00 [place] Bodies Not Reportable 10/08/20 05:00 [place] Rings Not Reportable 10/08/20 05:00 [place] Cells 1+ 10/08/20 05:00 Bite Cells Not Reportable 10/08/20 05:00 Crenated Cell Not Reportable 10/08/20 05:00 Elliptocytes Few 10/08/20 05:00 Acanthocytes (Spur) Not Reportable 10/08/20 05:00 Rouleaux Not Reportable 10/08/20 05:00 Hemoglobin C Crystals Not Reportable 10/08/20 05:00 Schistocytes Not Reportable 10/08/20 05:00 Malaria parasites Not Reportable 10/08/20 05:00 Dereck Bodies Not Reportable 10/08/20 05:00 Hem Pathologist Commnt No 10/08/20 05:00 PT 20.8 Sec. (12.2-14.9) H 10/02/20 23:17 INR 1.74 (0.87-1.13) H 10/02/20 23:17 APTT 57.6 Sec. (24.2-36.6) H 10/02/20 23:17 Thrombin Time 17.8 Sec. (15.1-19.6) 10/02/20 23:17 Sodium 126 mmol/L (137-145) L 10/09/20 05:07 Potassium 4.8 mmol/L (3.6-5.0) 10/09/20 05:07 Chloride 97.8 mmol/L (98-107) L 10/09/20 05:07 Carbon Dioxide 20 mmol/L (22-30) L 10/09/20 05:07 Anion Gap 13 mmol/L 10/09/20 05:07 BUN 20 mg/dL (9-20) 10/09/20 05:07 Creatinine 1.0 mg/dL (0.8-1.3) 10/09/20 05:07 Estimated GFR > 60 ml/min 10/09/20 05:07 BUN/Creatinine Ratio 20 % 10/09/20 05:07 Glucose 58 mg/dL (75-100) L 10/09/20 05:07 POC Glucose 106 mg/dL (70-105) H 10/09/20 06:35 Hemoglobin A1c 5.2 % (4-6) 10/03/20 05:57 Osmolality 267 Mosm/kg 10/07/20 13:54 Lactic Acid 1.50 mmol/L (0.7-2.0) 10/03/20 04:43 Calcium 9.2 mg/dL (8.4-10.2) 10/09/20 05:07 Phosphorus 3.00 mg/dL (2.5-4.5) 10/06/20 05:07 Magnesium 1.90 mg/dL (1.7-2.3) 10/06/20 05:07 Iron 42 ug/dL (49-181) L 10/03/20 05:57 TIBC 305 mcg/dL (250-450) 10/03/20 05:57 Total Bilirubin 0.60 mg/dL (0.1-1.2) 10/04/20 05:59 AST 26 units/L (5-40) 10/04/20 05:59 ALT 15 units/L (7-56) 10/04/20 05:59 Alkaline Phosphatase 105 units/L (35-129) 10/04/20 05:59 Ammonia 22.0 umol/L (25-60) L 10/02/20 23:17 Total Creatine Kinase 88 units/L (55-170) 10/02/20 23:17 CK-MB (CK-2) 7.5 ng/mL (0.0-4.0) H 10/02/20 23:17 CK-MB (CK-2) Rel Index 8.5 (0-4) H 10/02/20 23:17 Troponin T < 0.010 ng/mL (0.00-0.029) 10/02/20 23:17 Total Protein 6.4 g/dL (6.3-8.2) 10/04/20 05:59 Albumin 2.6 g/dL (3.9-5) L 10/04/20 05:59 Albumin/Globulin Ratio 0.7 % 10/04/20 05:59 TSH 2.130 mlU/mL (0.270-4.200) 10/07/20 13:54 Urine Osmolality 223 Mosm/kg 10/07/20 Unknown Urine Sodium 10 mmol/L 10/07/20 Unknown Salicylates < 0.3 mg/dL (2.8-20.0) L 10/02/20 23:17 Acetaminophen 5.0 ug/mL (10.0-30.0) L 10/02/20 23:17 Plasma/Serum Alcohol < 0.01 % (0-0.07) 10/02/20 23:17 Coronavirus (PCR) Negative (Negative) 10/06/20 Unknown Blood Type O POSITIVE 10/03/20 05:57 Antibody Screen Negative 10/03/20 05:57 Crossmatch See Detail 10/03/20 05:57 Microbiology: Microbiology 10/08/20 15:02 Peripheral/Venous Blood Culture - Preliminary Culture in Progress 10/08/20 14:35 Peripheral/Venous Blood Culture - Preliminary Culture in Progress Jackson/IV: Voiding Method Condom Catheter Active Medications - Current Medications Current Medications: Generic Name Dose Route Start Last Admin Trade Name Freq PRN Reason Stop Dose Admin Acetaminophen 650 mg 10/03/20 02:10 10/06/20 15:28 Acetaminophen 325 Mg Tab PO 650 mg Q4H PRN Administration Pain MILD(1-3)/Fever >100.5/ROMERO Al Hydrox/Mg Hydrox/Simethicone 30 ml 10/03/20 02:10 Alum-Mag Hydroxide-Simethicone 223-650-55ub/5ml Oral Liqd 30 Ml PO Q4H PRN Indigestion Lipase/Protease/Amylase 1 each 10/03/20 16:51 Lipase 10,500/Protease 25,000/Amylase 43,750 (Units) Dr Reis FEEDTUBE PRN PRN For Clogged Feeding Tube Dextrose 0 ml 10/02/20 22:49 10/09/20 05:54 Dextrose 50% In Water (25gm) 50 Ml Syringe IV 50 ml Q30MIN PRN Administration Hypoglycemia Protocol Ferrous Sulfate 325 mg 10/03/20 10:00 10/09/20 09:22 Ferrous Sulfate 325 Mg Tab PO Not Given QDAY JOSE Folic Acid 1 mg 10/03/20 10:00 10/09/20 09:22 Folic Acid 1 Mg Tab PO Not Given QDAY JOSE Cefepime HCl 2 gm in 100 mls @ 200 mls/hr 10/08/20 11:00 10/09/20 12:05 Cefepime/Ns 2 Gm/100 Ml IV 200 mls/hr Q8H JOSE Administration Protocol Dextrose 1,000 mls @ 100 mls/hr 10/09/20 06:00 10/09/20 06:25 D10w IV 100 mls/hr DIRECT JOSE Administration Vancomycin HCl 1,250 mg/ 275 mls @ 183.333 mls/hr 10/09/20 22:00 Sodium Chloride IV Q24H JOSE Magnesium Hydroxide 30 ml 10/03/20 02:10 Magnesium Hydroxide (Mom) Oral Liqd Udc PO Q4H PRN Constipation Metoclopramide HCl 10 mg 10/03/20 02:10 Metoclopramide 10 Mg/2 Ml Inj IV Q6H PRN Nausea And Vomiting Multivitamins 1 each 10/03/20 10:00 10/09/20 09:22 Multivitamins ,Therapeutic Tab PO Not Given QDAY [facility] Ondansetron HCl 4 mg 10/03/20 02:10 10/07/20 23:19 Ondansetron 4 Mg/2 Ml Inj IV 4 mg Q8H PRN Administration Nausea And Vomiting Oxycodone/Acetaminophen 1 tab 10/03/20 02:10 Oxycodone /Acetaminophen 5-325mg Tab PO Q6H PRN Pain, Moderate (4-6) Pantoprazole Sodium 40 mg 10/04/20 15:00 10/09/20 09:23 Pantoprazole 40 Mg Inj IV 40 mg QDAY [facility] Administration Promethazine HCl 25 mg 10/03/20 02:10 Promethazine 25 Mg Rect Supp [place] Q6H PRN N/V IF NPO AND NO IV ACCESS Senna 8.6 mg 10/03/20 02:10 Sennosides 8.6 Mg Tab PO Q12HR PRN Constipation Simple Syrup 15 ml 10/03/20 16:51 Simple Syrup 15 Ml FEEDTUBE PRN PRN Hypoglycemia Simple Syrup 30 ml 10/03/20 16:51 Simple Syrup 15 Ml FEEDTUBE PRN PRN Hypoglycemia Sodium Bicarbonate 325 mg 10/03/20 16:51 Sodium Bicarbonate 325 Mg Tab FEEDTUBE PRN PRN For Clogged Feeding Tube Sodium Chloride 2 gm 10/09/20 12:00 Sodium Chloride 1 Gm Tab PO TID [facility] Nutrition/Malnutrition Assess - Dietary Evaluation Nutrition/Malnutrition Findings: Nutrition Notes Start: 10/03/20 08:51 Freq: Status: Active Protocol: Document 10/06/20 12:52 (Rec: 10/06/20 12:55 [email or web address]) Nutrition Notes Initial or Follow up Reassessment Current Diagnosis Diabetes Other Pertinent Diagnosis AMS, hypothermia, pneu, anemia , atherosclerotic cerebrovascular disease Current Diet Jevity 1.2 at 65ml/hr Labs/Tests Na 133 K 3.5 Pertinent Medications Reviewed Height 5 ft 10 in Weight 81.3 kg [place] Body Weight (kg) 75.45 BMI 25.7 Weight Status Overweight Subjective/Other Information RN reports out of Jevity so Glucerna was started. TF running at 50 ml/hr and pt tolerating. Percent of energy/protein needs met: 77%/86% Burn Absent Trauma Absent Minimum of two criteria No #1 Nutrition Diagnosis Swallowing difficulty Diagnosis Progress(for reassessment Continues documentation) Is patient on ventilator? No Is Patient Ambulatory and/or Out of Bed No REE-([facility]-confined to bed) 8037.045 Calculation Used for Recommendations [facility] Additional Notes Protein: (1-1.2g/kg) 84-101g Fluid: 1 ml/kcal Nutrition Intervention Change Diet Order: continue Nutrition Support: Glucerna 1.2 at 65 ml/hr Flush 100 ml q4h Kcal 1,782 Protein (gm) 94 Fluid (mL) 1,256 Goal #1 Meet at least 75% of protein and energy needs via TF Anticipated Discharge Needs: Glucerna 1.2 at 65 ml/hr Flush 100 ml q4h Follow-Up By: 10/13/20 Additional Comments F/u: stable TF and rate
--- NOTE | 2020-10-09 12:25 | Progress Note ---
Assessment and Plan 1. Iron deficient anemia - etiology unclear. Need to exclude GI source of bleeding. Given need for PEG, will evaluate for cause of anemia first. - proceed with EGD/Colon when stable and hyponatremia improves. 2. 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 - will plan on PEG eventually 3. NG tube placement -I placed a 14 [place] NG tube today. X-ray to be done and if it is appropriate, hyponatremia can be corrected and then we can use the NG tube for prepping for colonoscopy. -If NG tube is not in place, and cannot be adequately adjusted, will need to do upper endoscopy to place NG tube tomorrow. Alternatively, can see if radiology could do this and will check. Discussed with Dr. Cruz. spoke with pt's daughter, Mignon Singh yesterday. Subjective Date of service: 10/09/20 Principal diagnosis: hyponatremia Interval history: Pt stable. Dobbhoff was not placed yesterday as it could not be positioned properly. Patient does not verbalize and is lethargic. Objective - Constitutional Vitals: Vital Signs - 12hr 10/09/20 10/09/20 10/09/20 01:52 02:00 07:58 Temperature 97.4 F L Pulse Rate 69 66 Respiratory 16 Rate Blood Pressure 108/88 O2 Sat by Pulse 95 97 Oximetry General appearance: Present: no acute distress, other (Lethargic) - EENT Eyes: PERRL, EOM intact ENT: hearing intact - Respiratory Respiratory effort: normal - Cardiovascular Rhythm: regular Heart Sounds: Present: S1 & S2 - Gastrointestinal General gastrointestinal: Present: soft, non-tender - Labs CBC & Chem 7: 10/09/20 06:32 10/09/20 05:07 Labs: Abnormal lab results 10/08/20 10/09/20 10/09/20 Range/Units 22:26 01:36 02:22 Hgb (11.8-15.2) gm/dl Hct (35.5-45.6) % MCV (84-94) fl MCH (28-32) pg MCHC (32-34) % RDW (13.2-15.2) % Sodium (137-145) mmol/L Chloride (98-107) mmol/L Carbon Dioxide (22-30) mmol/L Glucose (75-100) mg/dL POC Glucose 63 L 62 L 151 H (70-105) mg/dL 10/09/20 10/09/20 10/09/20 Range/Units 05:07 05:42 06:32 Hgb 10.3 L (11.8-15.2) gm/dl Hct 33.8 L (35.5-45.6) % MCV 77 L (84-94) fl MCH 24 L (28-32) pg MCHC 31 L (32-34) % RDW 33.6 H (13.2-15.2) % Sodium 126 L (137-145) mmol/L Chloride 97.8 L (98-107) mmol/L Carbon Dioxide 20 L (22-30) mmol/L Glucose 58 L (75-100) mg/dL POC Glucose 48 L (70-105) mg/dL 10/09/20 Range/Units 06:35 Hgb (11.8-15.2) gm/dl Hct (35.5-45.6) % MCV (84-94) fl MCH (28-32) pg MCHC (32-34) % RDW (13.2-15.2) % Sodium (137-145) mmol/L Chloride (98-107) mmol/L Carbon Dioxide (22-30) mmol/L Glucose (75-100) mg/dL POC Glucose 106 H (70-105) mg/dL Medications & Allergies - Medications Allergies/Adverse Reactions: Allergies No Known Allergies Allergy (Unverified 10/03/20 12:27) Active Medications: Generic Name Dose Route Start Last Admin Trade Name Freq PRN Reason Stop Dose Admin Acetaminophen 650 mg 10/03/20 02:10 10/06/20 15:28 Acetaminophen 325 Mg Tab PO 650 mg Q4H PRN Administration Pain MILD(1-3)/Fever >100.5/ROMERO Al Hydrox/Mg Hydrox/Simethicone 30 ml 10/03/20 02:10 Alum-Mag Hydroxide-Simethicone [phone]/5ml Oral Liqd 30 Ml PO Q4H PRN Indigestion Lipase/Protease/Amylase 1 each 10/03/20 16:51 Lipase 10,500/Protease 25,000/Amylase 43,750 (Units) Dr Reis FEEDTUBE PRN PRN For Clogged Feeding Tube Dextrose 0 ml 10/02/20 22:49 10/09/20 05:54 Dextrose 50% In Water (25gm) 50 Ml Syringe IV 50 ml Q30MIN PRN Administration Hypoglycemia Protocol Ferrous Sulfate 325 mg 10/03/20 10:00 10/09/20 09:22 Ferrous Sulfate 325 Mg Tab PO Not Given QDAY COUNTS INCLUDE 234 BEDS AT THE [facility] Folic Acid 1 mg 10/03/20 10:00 10/09/20 09:22 Folic Acid 1 Mg Tab PO Not Given QDAY COUNTS INCLUDE 234 BEDS AT THE [facility] Cefepime HCl 2 gm in 100 mls @ 200 mls/hr 10/08/20 11:00 10/09/20 12:05 Cefepime/Ns 2 Gm/100 Ml IV 200 mls/hr Q8H JOSE Administration Protocol Vancomycin HCl 1,250 mg/ 275 mls @ 183.333 mls/hr 10/09/20 22:00 Sodium Chloride IV Q24H COUNTS INCLUDE 234 BEDS AT THE [facility] Magnesium Hydroxide 30 ml 10/03/20 02:10 Magnesium Hydroxide (Mom) Oral Liqd Udc PO Q4H PRN Constipation Metoclopramide HCl 10 mg 10/03/20 02:10 Metoclopramide 10 Mg/2 Ml Inj IV Q6H PRN Nausea And Vomiting Multivitamins 1 each 10/03/20 10:00 10/09/20 09:22 Multivitamins ,Therapeutic Tab PO Not Given QDAY COUNTS INCLUDE 234 BEDS AT THE [facility] Ondansetron HCl 4 mg 10/03/20 02:10 10/07/20 23:19 Ondansetron 4 Mg/2 Ml Inj IV 4 mg Q8H PRN Administration Nausea And Vomiting Oxycodone/Acetaminophen 1 tab 10/03/20 02:10 Oxycodone /Acetaminophen 5-325mg Tab PO Q6H PRN Pain, Moderate (4-6) Pantoprazole Sodium 40 mg 10/04/20 15:00 10/09/20 09:23 Pantoprazole 40 Mg Inj IV 40 mg QDAY COUNTS INCLUDE 234 BEDS AT THE [facility] Administration Promethazine HCl 25 mg 10/03/20 02:10 Promethazine 25 Mg Rect Supp SC Q6H PRN N/V IF NPO AND NO IV ACCESS Senna 8.6 mg 10/03/20 02:10 Sennosides 8.6 Mg Tab PO Q12HR PRN Constipation Simple Syrup 15 ml 10/03/20 16:51 Simple Syrup 15 Ml FEEDTUBE PRN PRN Hypoglycemia Simple Syrup 30 ml 10/03/20 16:51 Simple Syrup 15 Ml FEEDTUBE PRN PRN Hypoglycemia Sodium Bicarbonate 325 mg 10/03/20 16:51 Sodium Bicarbonate 325 Mg Tab FEEDTUBE PRN PRN For Clogged Feeding Tube Sodium Chloride 2 gm 10/09/20 12:00 Sodium Chloride 1 Gm Tab PO TID COUNTS INCLUDE 234 BEDS AT THE [facility] HEART Score - HEART Score Troponin: Troponin T < 0.010 ng/mL (0.00-0.029) 10/02/20 23:17
[2020-10-09 12:28] LABS: Anisocytosis 3+; Band Neutrophils # (Manual) 0.3 K/mm3; Giant Platelets Few; Hypochromasia 1+; Platelet Estimate Consistent w Auto; Target Cells 1+; Total Cells Counted 100
[2020-10-09 12:29] LABS: Burr Cells 1+
--- NOTE | 2020-10-09 13:20 | XRay Report ---
ABDOMEN 1 VIEW(S) 10/09/2020 12:14 PM INDICATION / CLINICAL INFORMATION: NG tube placement. COMPARISON: None available. FINDINGS: Enteric tube is malpositioned, looping back on itself within the distal esophagus. Recommend repositi oning and follow-up imaging to ensure appropriate positioning.. Signer Name: Yordan Mueller MD Signed: 10/09/2020 1:16 PM Workstation Name: [id number]
[2020-10-09 13:27] LABS: Platelet Count 137 K/mm3 (140-440)
--- NOTE | 2020-10-09 13:54 | Consultation ---
History of Present Illness - Reason for Consult Consult date: 10/09/20 - History of Present Illness 74-year-old man presented to the hospital with altered mental status and found to be incontinent of urine and feces. On admission concern for cerebral atherosclerotic disease. MRI brain without obvious ischemia. Covid was negative. Patient remains encephalopathic with ongoing left-sided weakness. Afebrile since admission with low temperatures, white count 10.6. Normal renal function. Currently on cefepime and vancomycin. Remains on room air. Has occasional desaturation. Imaging personally reviewed: Chest x-ray: Bilateral pulmonary opacities Past History Past Medical History: GERD Past Surgical History: No surgical history Social history: no significant social history, alcohol abuse (Per patient his) Family history: no significant family history (Unable to get information from the patient secondary to altered mental status) Medications and Allergies Allergies Allergy/AdvReac Type Severity Reaction Status Date / Time No Known Allergies Allergy Unverified 10/03/20 12:27 Active Meds: Active Medications Acetaminophen (Acetaminophen 325 Mg Tab) 650 mg PO Q4H PRN PRN Reason: Pain MILD(1-3)/Fever >100.5/ROMERO Last Admin: 10/06/20 15:28 Dose: 650 mg Documented by: Al Hydrox/Mg Hydrox/Simethicone (Alum-Mag Hydroxide-Simethicone [phone]/5ml Oral Liqd 30 Ml) 30 ml PO Q4H PRN PRN Reason: Indigestion Lipase/Protease/Amylase (Lipase 10,500/Protease 25,000/Amylase 43,750 (Units) Dr Reis) 1 each FEEDTUBE PRN PRN PRN Reason: For Clogged Feeding Tube Dextrose (Dextrose 50% In Water (25gm) 50 Ml Syringe) 0 ml IV Q30MIN PRN; Protocol PRN Reason: Hypoglycemia Last Admin: 10/09/20 05:54 Dose: 50 ml Documented by: Ferrous Sulfate (Ferrous Sulfate 325 Mg Tab) 325 mg PO QDAY [facility] Last Admin: 10/09/20 09:22 Dose: Not Given Documented by: Folic Acid (Folic Acid 1 Mg Tab) 1 mg PO QDAY [facility] Last Admin: 10/09/20 09:22 Dose: Not Given Documented by: Cefepime HCl (Cefepime/Ns 2 Gm/100 Ml) 2 gm in 100 mls @ 200 mls/hr IV Q8H [facility]; Protocol Last Admin: 10/09/20 12:05 Dose: 200 mls/hr Documented by: Vancomycin HCl 1,250 mg/ (Sodium Chloride) 275 mls @ 183.333 mls/hr IV Q24H [facility] Sodium Chloride 153.8 meq/ (Dextrose) 1,038.45 mls @ 100 mls/hr IV DIRECT JOSE Levetiracetam 750 mg/ Dextrose 107.5 mls @ 400 mls/hr IV Q12HR [facility] Magnesium Hydroxide (Magnesium Hydroxide (Mom) Oral Liqd Udc) 30 ml PO Q4H PRN PRN Reason: Constipation Metoclopramide HCl (Metoclopramide 10 Mg/2 Ml Inj) 10 mg IV Q6H PRN PRN Reason: Nausea And Vomiting Multivitamins (Multivitamins ,Therapeutic Tab) 1 each PO QDAY [facility] Last Admin: 10/09/20 09:22 Dose: Not Given Documented by: Ondansetron HCl (Ondansetron 4 Mg/2 Ml Inj) 4 mg IV Q8H PRN PRN Reason: Nausea And Vomiting Last Admin: 10/07/20 23:19 Dose: 4 mg Documented by: Oxycodone/Acetaminophen (Oxycodone /Acetaminophen 5-325mg Tab) 1 tab PO Q6H PRN PRN Reason: Pain, Moderate (4-6) Pantoprazole Sodium (Pantoprazole 40 Mg Inj) 40 mg IV QDAY [facility] Last Admin: 10/09/20 09:23 Dose: 40 mg Documented by: Promethazine HCl (Promethazine 25 Mg Rect Supp) 25 mg HI Q6H PRN PRN Reason: N/V IF NPO AND NO IV ACCESS Senna (Sennosides 8.6 Mg Tab) 8.6 mg PO Q12HR PRN PRN Reason: Constipation Simple Syrup (Simple Syrup 15 Ml) 15 ml FEEDTUBE PRN PRN PRN Reason: Hypoglycemia Simple Syrup (Simple Syrup 15 Ml) 30 ml FEEDTUBE PRN PRN PRN Reason: Hypoglycemia Sodium Bicarbonate (Sodium Bicarbonate 325 Mg Tab) 325 mg FEEDTUBE PRN PRN PRN Reason: For Clogged Feeding Tube Sodium Chloride (Sodium Chloride 1 Gm Tab) 2 gm PO TID [facility] Review of Systems ROS unobtainable: due to mental status Physical Examination - Physical Exam Narrative exam: Physical Exam: Constitutional: Confused Head, Ears, Nose: Normocephalic, atraumatic. External ears, nose normal Eyes: Conjunctivae/corneas clear. No icterus. No ptosis. Neck: Supple, no meningeal signs Oral: dentition fair, no thrush Cardiovascular: S1, S2 normal. Respiratory: Good air entry, clear to auscultation bilaterally GI: Soft, non-tender; bowel sounds normal. No peritoneal signs. Musculoskeletal: No pedal edema, no cyanosis. Skin: No rash or abscess Hem/Lymphatic: No palpable cervical or supraclavicular nodes. No lymphangitis Psych: Encephalopathic Neurological: Encephalopathic - Constitutional Vitals: Vital Signs Temp Pulse Resp BP Pulse Ox 97.4 F L 64 18 116/82 100 10/09/20 07:58 10/09/20 12:28 10/09/20 13:17 10/09/20 12:28 10/09/20 13:17 Temperature -Last 24 Hours Temperature 97.4 F Temperature 96.3 F Results - Labs CBC & Chem 7: 10/09/20 06:32 10/09/20 05:07 Labs: Abnormal lab results 10/08/20 10/09/20 10/09/20 Range/Units 22:26 01:36 02:22 Hgb (11.8-15.2) gm/dl Hct (35.5-45.6) % MCV (84-94) fl MCH (28-32) pg MCHC (32-34) % RDW (13.2-15.2) % Plt Count (140-440) K/mm3 Seg Neuts % (Manual) (40.0-70.0) % Lymphocytes % (Manual) (13.4-35.0) % Nucleated RBC % (0.0-0.9) % Seg Neutrophils # Man (1.8-7.7) K/mm3 Lymphocytes # (Manual) (1.2-5.4) K/mm3 Sodium (137-145) mmol/L Chloride (98-107) mmol/L Carbon Dioxide (22-30) mmol/L Glucose (75-100) mg/dL POC Glucose 63 L 62 L 151 H (70-105) mg/dL 08/30/21 08/30/21 08/30/21 Range/Units 05:07 05:42 06:32 Hgb 10.3 L (11.8-15.2) gm/dl Hct 33.8 L (35.5-45.6) % MCV 77 L (84-94) fl MCH 24 L (28-32) pg MCHC 31 L (32-34) % RDW 33.6 H (13.2-15.2) % Plt Count 137 L (140-440) K/mm3 Seg Neuts % (Manual) 89.0 H (40.0-70.0) % Lymphocytes % (Manual) 5.0 L (13.4-35.0) % Nucleated RBC % 4.0 H (0.0-0.9) % Seg Neutrophils # Man 9.4 H (1.8-7.7) K/mm3 Lymphocytes # (Manual) 0.5 L (1.2-5.4) K/mm3 Sodium 126 L (137-145) mmol/L Chloride 97.8 L (98-107) mmol/L Carbon Dioxide 20 L (22-30) mmol/L Glucose 58 L (75-100) mg/dL POC Glucose 48 L (70-105) mg/dL 10/09/20 Range/Units 06:35 Hgb (11.8-15.2) gm/dl Hct (35.5-45.6) % MCV (84-94) fl MCH (28-32) pg MCHC (32-34) % RDW (13.2-15.2) % Plt Count (140-440) K/mm3 Seg Neuts % (Manual) (40.0-70.0) % Lymphocytes % (Manual) (13.4-35.0) % Nucleated RBC % (0.0-0.9) % Seg Neutrophils # Man (1.8-7.7) K/mm3 Lymphocytes # (Manual) (1.2-5.4) K/mm3 Sodium (137-145) mmol/L Chloride (98-107) mmol/L Carbon Dioxide (22-30) mmol/L Glucose (75-100) mg/dL POC Glucose 106 H (70-105) mg/dL Assessment and Plan Cultures: Blood culture 10/02/2020 no growth 10/08/2020 pending Covid PCR: Negative A/P: 68-year-old man past medical history hypertension admitted with acute encep halopathy. #Acute encephalopathy: possible secondary to neurological issue. MRI normal, however residual left sided weakness. #Bilateral pneumonia: infiltrates seen on CXR, however patient afebrile, normal white count, not requiring oxygen. COVID negative x2 #Left sided weakness Recs: -Check procalcitonin in AM labs. Stop antibiotics if low. -Stop vancomycin -Continue cefepime for now Thank you for the consult, we will continue to follow. Khanh Tanner MD [facility] O: [phone] F: [phone]
[2020-10-09] MEDS ORDERED: levETIRAcetam 500 MG/5 ML ORAL LIQD FEEDTUBE SCH (14:00)
[2020-10-09] MEDS ORDERED: SODIUM CHLORIDE IRRI 500 ML 500 ML IR ONE (14:44)
[2020-10-09] MEDS ORDERED: BENZOCAINE 20% TOP SPRAY 0.5 ML UNIT DOSE MM ONE (14:45)
[2020-10-09] MEDS ORDERED: LIDOCAINE MPF (2%) 20 MG/1 ML VIAL 5 ML ONE (14:45)
[2020-10-09] MEDS ORDERED: SODIUM CHLORIDE 0.9% 500 ML 500 ML ONE (14:49)
--- NOTE | 2020-10-09 14:50 | Magnetic Resonance Report ---
NONENHANCED MR SCAN OF THE BRAIN: INDICATION / CLINICAL INFORMATION: CVA. TECHNIQUE: Multiplanar, multisequence MR images of the brain obtained. COMPARISON: MR scan of the brain from 10/04/2020 FINDINGS: BRAIN / INTRACRANIAL CONTENTS: No acute ischemia, acute hemorrhage, mass effect, midline shift. 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 VASCULAR FLOW-VOIDS: No significant abnormality. ORBITS: No significant abnormality of visualized orbits. SINUSES / MASTOIDS: Mucosal thickening in the right maxillary sinus and anterior ethmoid air cells mo re on the right side; mild progression since the last MRI scan ADDITIONAL FINDINGS: None. IMPRESSION: 1. No acute focal parenchymal lesion MR findings unchanged Signer Name: Dariana Gonzalez MD Signed: 10/09/2020 2:46 PM Workstation Name: [id number]
--- NOTE | 2020-10-09 15:36 | Operative Report ---
Operative Report Operative Report: EXAM: Fluoroscopic guided nasogastric tube placement Upper GI, limited DATE: 10/09/2020 AIRPORT ATTENDANT: JATIN ADAMSON MD INDICATION: Inability to pass NG tube with dysphagia. Attempted 4 tubes previously. MEDICATIONS: Please see nursing report for full details. DEVICES: Sterling sump NG tube CONTRAST: Please see Ground Control Approach Technician report for full details PROCEDURE: The patient's daughter was contacted and informed consent was obtained. Patient was brought to the angiography suite and placed in the supine position. Nose was prepped and draped in a sterile fashion. Lidocaine spray was then used to anesthetize the left nostril. The current NG tube was coiled in the distal esophagus. 0.035 inch angled stiff Glidewire was then passed through the NG tube which was then removed. The wire was then passed into the stomach with the assistance of an angled catheter. Contrast was then injected in the stomach confirming position. Wire and catheter were then passed into the pylorus, and then the duodenal sweep. Contrast was injected confirming hiatal hernia, and contrast passing through the duodenal sweep into the jejunum. Catheters removed over 0.035 inch wire and a Sterling sump NG tube was advanced over the wire after minor modification to allow it to pass coaxial over the 0.035 inch wire. This was then passed into the duodenum. Contrast was injected through the NG tube confirming position of the duodenum. Tube was secured in place with silk tape. FINDINGS: Please procedure note above. Hiatal hernia. IMPRESSION: Successful fluoroscopic guided NG tube placement with limited upper GI performed.
[2020-10-09] MEDS: levETIRAcetam 750 MG in DEXTROSE 5% IN WATER 100 ML IV SCH ×2 (16:46→22:45)
[2020-10-09] MEDS: WATER IV SCH (16:58)
[2020-10-09] MEDS: SODIUM CHLORIDE IV SCH (16:58)
[2020-10-09] MEDS: DEXTROSE 10% IV SCH (16:58)
[2020-10-09] MEDS ORDERED: VANCOMYCIN 1,250 MG in SODIUM CHLORIDE 0.9% 250ML 250 ML IV SCH ×2 (22:00)
[2020-10-10] MEDS: DEXTROSE 50% IN WATER (25GM) 50 ML SYRINGE IV PRN (05:58)
[2020-10-10] MEDS: CEFEPIME/NS 2 GM/100 ML 2 GM/100 ML BAG IV SCH ×4 (06:19→23:20)
[2020-10-10] MEDS: SODIUM CHLORIDE 1 GM TAB PO SCH ×3 (08:00→23:21)
--- NOTE | 2020-10-10 10:25 | Progress Note ---
Assessment and Plan Assessment and plan: -- Acute encephalopathy CT angio of the head that is a significant narrowing seen in both posterior cere bral arteries and no signs of large vessel CT of the head no acute finding but showed a cerebral atrophy with suspicious atrophy and atherosclerotic calcification within the distal right middle cereb ral artery. MRI brain without any acute findings Neurology consulted, will follow EEG -cannot r/o acute seizure with postictal state --Left-sided hemiparesis with significant aphasia Placed on stroke protocol, neurology following, failed swallow eval MRI brain without any new findings, EEG ordered and pending Aspirin due to severe anemia, will initiate Lipitor when able to tolerate tube feeding -- Hypothermia, resolved Monitor body temperature Applied bed hugger -- Pulmonary infiltrate in right lung on CXR COVID-19 test is negative Likely secondary to pneumonia Start empiric antibiotics Rocephin and azithromycin -- Atherosclerotic cerebrovascular disease Safety and fall precaution at all times PT OT consult follow-up with recommendation for discharge placement --Severe anemia -possible GI bleed? Likely 2/2 to malnutrion-patient has no evidence of active bleeding and has normal PLT Monitor H&Hadmission H&H 6.7> 5.8 S/p 3 units of blood transfusion Iron and multivitamin supplement Check iron level, ordered stool for occult blood GI consulted -- Severe protein-calorie malnutrition cardiology technologist consult, failed swallow eval Order for Dobbhoff tube and Tube feeding --Persistent hypoglycemia, patient placed D10, will also initiate tube feeding -- DVT prophylaxis ACD hold Subcutaneous anticoagulant due to low H/H Daily clinical course: 10/03/20: CT of the head no acute finding but showed a cerebral atrophy with suspicious atrophy and atherosclerotic calcification within the distal right middle cerebral artery. Patient also noted with hemoglobin of 5.8, received 1 unit of packed RBC and ordered for tomorrow Neuro is consulted, Covid test is negative We will check stool for occult blood MRI brain ordered we will follow Will hold any oral medicine until cleared by speech or passes the bedside swallow eval Patient noted to have severe hypoglycemic, will place on D10W Follow H&H and BMP Continue current management plan as dictated in the HPI 10/04/20: no acute findings in MRI, pending EEG, s/p 3 units PRBC transfusion. follow speech eval, TF for now, h/h stable, GI consulted - follow recommendation. 10/05/20 Patient with acute encephalopathy, severe anemia s/p PRBC transfusion. GI following. Hgb 9.8 today. Will repeat in am. Left sided weakness. MRI negative for stroke. Neurology following. 10/06/20 Patient with encephalopathy, severe anemia s/p PRBC transfusion. Hgb 9.4 today. Patient has left sided weakness but MRI neg. Patient needs PEG tube. Will talk with family. Hypokalemia. Replace Q6h X 2. Check Mg 10/07/20 Patient with encephalopathy, severe anemia s/p PRBC transfusion. Hgb 9.6 today. Patient has left sided weakness but MRI neg. Patient needs PEG tube. Will talk with family. Hyponatremia of 128. This may be due to D10% he was on prior to NG tube. Stopped 10% Dextrose. Consulted Nephrology 10/08/20 Patient with encephalopathy, severe anemia s/p PRBC transfusion. Hgb 9.6 today. Patient has left sided weakness but MRI neg. Patient needs PEG tube. Hyponatremia worse today 126. This is due to D10% resumed last night because of hypoglycemia. I discussed with Dr. Herrera. Stop 10%Dextrose. Start D5NS Spoke to daughter, Cindy Singh, yesterday and gave update. She wants PEG tube placed. Discussed plan with PAKO Chambers. He wants to do upper and lower endoscopy to evaluate anemia, before PEG tube 10/09/20 Patient with encephalopathy, severe anemia s/p PRBC transfusion. Hgb 10.3 today. Patient has left sided weakness but MRI neg. Patient needs PEG tube. Hyponatremia still present Na 126 today. This is due to D10% resumed again last night because of hypoglycemia. Nephrology had recommended D5NS but 10% Dextrose restarted overnight because of hypoglycemia. Nurses unable to place NG tube. I discussed with Dr. Otero today and he will do. Spoke to daughter, Cindy Singh, yesterday and gave update. She wants PEG tube placed. Discussed plan with PAKO Chambers. He wants to do upper and lower endoscopy to evaluate anemia, before PEG tube Today Na still 126. I discussed with Dr. Herrera and he recommended D10NS. I called Pharmacy. They will mix special D10NS drip. Patient had bilateral pneumonia on CXR therefore started iv Antibiotics, blood cultures. yesterday. Consulted ID 10/10/2020. Patient remains encephalopathic with hemoglobin stabilizing yesterday. Recheck H&H. Patient with left-sided weakness but MRI negative. Fluoroscopic NG tube placement completed yesterday. Await GI to perform EGD and colonoscopy. Follow-up hyponatremia with BMP results. Dr. Aldrich Spoke to daughter, Cindy Singh, and gave update. Daughter wants PEG tube placed. Continue IV antibiotics for bilateral pneumonia. ID consulted. Follow-up procalcitonin levels. History Interval history: No new issues overnight Hospitalist Physical - Constitutional Vitals: Temp Pulse Resp BP Pulse Ox 97.0 F L 68 14 110/85 95 10/10/20 09:27 10/10/20 09:23 10/10/20 09:23 10/10/20 09:23 10/10/20 09:23 General appearance: Present: well-nourished - EENT Eyes: Present: PERRL, EOM intact ENT: hearing intact, clear oral mucosa, dentition normal - Neck Neck: Present: supple, normal ROM - Respiratory Respiratory effort: normal Respiratory: bilateral: CTA - Cardiovascular Rhythm: regular Heart Sounds: Present: S1 & S2. Absent: gallop, rub - Extremities Extremities: no ischemia, No edema, Full ROM - Abdominal General gastrointestinal: soft, non-tender, non-distended, normal bowel sounds - Integumentary Integumentary: Present: clear, warm, dry - Neurologic Neurologic: CNII-XII intact, moves all extremities HEART Score - HEART Score Troponin: Troponin T < 0.010 ng/mL (0.00-0.029) 10/02/20 23:17 Results - Labs CBC & Chem 7: 10/09/20 06:32 10/09/20 05:07 Labs: Laboratory Last Values WBC 10.6 K/mm3 (4.5-11.0) 10/09/20 06:32 RBC 4.38 M/mm3 (3.65-5.03) 10/09/20 06:32 Hgb 10.3 gm/dl (11.8-15.2) L 10/09/20 06:32 Hct 33.8 % (35.5-45.6) L 10/09/20 06:32 MCV 77 fl (84-94) L 10/09/20 06:32 MCH 24 pg (28-32) L 10/09/20 06:32 MCHC 31 % (32-34) L 10/09/20 06:32 RDW 33.6 % (13.2-15.2) H 10/09/20 06:32 Plt Count 137 K/mm3 (140-440) L 10/09/20 06:32 [place] % (Auto) 6.3 % (0.0-7.3) 10/08/20 05:00 Eos % (Auto) 0.8 % (0.0-4.3) 10/08/20 05:00 [place] # (Auto) 0.3 K/mm3 (0.0-0.8) 10/08/20 05:00 Eos # (Auto) 0.0 K/mm3 (0.0-0.4) 10/08/20 05:00 Baso # (Auto) 0.1 K/mm3 (0.0-0.1) 10/08/20 05:00 Add Manual Diff Complete 10/09/20 06:32 Total Counted 100 10/09/20 06:32 Seg Neutrophils % 80.6 % (40.0-70.0) H 10/08/20 05:00 Seg Neuts % (Manual) 89.0 % (40.0-70.0) H 10/09/20 06:32 Band Neutrophils % 3.0 % 10/09/20 06:32 Lymphocytes % (Manual) 5.0 % (13.4-35.0) L 10/09/20 06:32 Monocytes % (Manual) 3.0 % (0.0-7.3) 10/09/20 06:32 Eosinophils % (Manual) 1.0 % (0.0-4.3) 10/08/20 05:00 Nucleated RBC % 4.0 % (0.0-0.9) H 10/09/20 06:32 Seg Neutrophils # 4.0 K/mm3 (1.8-7.7) 10/08/20 05:00 Seg Neutrophils # Man 9.4 K/mm3 (1.8-7.7) H 10/09/20 06:32 Band Neutrophils # 0.3 K/mm3 10/09/20 06:32 Lymphocytes # (Manual) 0.5 K/mm3 (1.2-5.4) L 10/09/20 06:32 Abs React Lymphs (Man) 0.0 K/mm3 10/09/20 06:32 Monocytes # (Manual) 0.3 K/mm3 (0.0-0.8) 10/09/20 06:32 Eosinophils # (Manual) 0.0 K/mm3 (0.0-0.4) 10/09/20 06:32 Basophils # (Manual) 0.0 K/mm3 (0.0-0.1) 10/09/20 06:32 Metamyelocytes # 0.0 K/mm3 10/09/20 06:32 Myelocytes # 0.0 K/mm3 10/09/20 06:32 Promyelocytes # 0.0 K/mm3 10/09/20 06:32 Blast Cells # 0.0 K/mm3 10/09/20 06:32 WBC Morphology Not Reportable 10/09/20 06:32 Hypersegmented Neuts Not Reportable 10/09/20 06:32 Hyposegmented Neuts Not Reportable 10/09/20 06:32 Hypogranular Neuts Not Reportable 10/09/20 06:32 Smudge Cells Not Reportable 10/09/20 06:32 Toxic Granulation Not Reportable 10/09/20 06:32 Toxic Vacuolation Not Reportable 10/09/20 06:32 Dohle Bodies Not Reportable 10/09/20 06:32 Pelger-Huet Anomaly Not Reportable 10/09/20 06:32 Andrés Rods Not Reportable 10/09/20 06:32 Platelet Estimate Consistent w auto 10/09/20 06:32 Clumped Platelets Not Reportable 10/09/20 06:32 Plt Clumps, EDTA Not Reportable 10/09/20 06:32 Large Platelets Not Reportable 10/09/20 06:32 Giant Platelets Few 10/09/20 06:32 Platelet Satelliting Not Reportable 10/09/20 06:32 Plt Morphology Comment Not Reportable 10/09/20 06:32 RBC Morphology Not Reportable 10/09/20 06:32 Dimorphic RBCs Not Reportable 10/09/20 06:32 Polychromasia Not Reportable 10/09/20 06:32 Hypochromasia 1+ 10/09/20 06:32 Poikilocytosis Not Reportable 10/09/20 06:32 Anisocytosis 3+ 10/09/20 06:32 Microcytosis Not Reportable 10/09/20 06:32 Macrocytosis Not Reportable 10/09/20 06:32 Spherocytes Not Reportable 10/09/20 06:32 Pappenheimer Bodies Not Reportable 10/09/20 06:32 Sickle Cells Not Reportable 10/09/20 06:32 Target Cells 1+ 10/09/20 06:32 Tear Drop Cells Not Reportable 10/09/20 06:32 Ovalocytes Not Reportable 10/09/20 06:32 Helmet Cells Not Reportable 10/09/20 06:32 [place] Bodies Not Reportable 10/09/20 06:32 [place] Rings Not Reportable 10/09/20 06:32 [place] Cells 1+ 10/09/20 06:32 Bite Cells Not Reportable 10/09/20 06:32 Crenated Cell Not Reportable 10/09/20 06:32 Elliptocytes Not Reportable 10/09/20 06:32 Acanthocytes (Spur) Not Reportable 10/09/20 06:32 Rouleaux Not Reportable 10/09/20 06:32 Hemoglobin C Crystals Not Reportable 10/09/20 06:32 Schistocytes Not Reportable 10/09/20 06:32 Malaria parasites Not Reportable 10/09/20 06:32 Dereck Bodies Not Reportable 10/09/20 06:32 Hem Pathologist Commnt No 10/09/20 06:32 PT 20.8 Sec. (12.2-14.9) H 10/02/20 23:17 INR 1.74 (0.87-1.13) H 10/02/20 23:17 APTT 57.6 Sec. (24.2-36.6) H 10/02/20 23:17 Thrombin Time 17.8 Sec. (15.1-19.6) 10/02/20 23:17 Sodium 126 mmol/L (137-145) L 10/09/20 05:07 Potassium 4.8 mmol/L (3.6-5.0) 10/09/20 05:07 Chloride 97.8 mmol/L (98-107) L 10/09/20 05:07 Carbon Dioxide 20 mmol/L (22-30) L 10/09/20 05:07 Anion Gap 13 mmol/L 10/09/20 05:07 BUN 20 mg/dL (9-20) 10/09/20 05:07 Creatinine 1.0 mg/dL (0.8-1.3) 10/09/20 05:07 Estimated GFR > 60 ml/min 10/09/20 05:07 BUN/Creatinine Ratio 20 % 10/09/20 05:07 Glucose 58 mg/dL (75-100) L 10/09/20 05:07 POC Glucose 100 mg/dL (70-105) 10/10/20 06:43 Hemoglobin A1c 5.2 % (4-6) 10/03/20 05:57 Osmolality 267 Mosm/kg 10/07/20 13:54 Lactic Acid 1.50 mmol/L (0.7-2.0) 10/03/20 04:43 Calcium 9.2 mg/dL (8.4-10.2) 10/09/20 05:07 Phosphorus 3.00 mg/dL (2.5-4.5) 10/06/20 05:07 Magnesium 1.90 mg/dL (1.7-2.3) 10/06/20 05:07 Iron 42 ug/dL (49-181) L 10/03/20 05:57 TIBC 305 mcg/dL (250-450) 10/03/20 05:57 Total Bilirubin 0.60 mg/dL (0.1-1.2) 10/04/20 05:59 AST 26 units/L (5-40) 10/04/20 05:59 ALT 15 units/L (7-56) 10/04/20 05:59 Alkaline Phosphatase 105 units/L (35-129) 10/04/20 05:59 Ammonia 22.0 umol/L (25-60) L 10/02/20 23:17 Total Creatine Kinase 88 units/L (55-170) 10/02/20 23:17 CK-MB (CK-2) 7.5 ng/mL (0.0-4.0) H 10/02/20 23:17 CK-MB (CK-2) Rel Index 8.5 (0-4) H 10/02/20 23:17 Troponin T < 0.010 ng/mL (0.00-0.029) 10/02/20 23:17 Total Protein 6.4 g/dL (6.3-8.2) 10/04/20 05:59 Albumin 2.6 g/dL (3.9-5) L 10/04/20 05:59 Albumin/Globulin Ratio 0.7 % 10/04/20 05:59 TSH 2.130 mlU/mL (0.270-4.200) 10/07/20 13:54 Urine Osmolality 223 Mosm/kg 10/07/20 Unknown Urine Sodium 10 mmol/L 10/07/20 Unknown Salicylates < 0.3 mg/dL (2.8-20.0) L 10/02/20 23:17 Acetaminophen 5.0 ug/mL (10.0-30.0) L 10/02/20 23:17 Plasma/Serum Alcohol < 0.01 % (0-0.07) 10/02/20 23:17 Coronavirus (PCR) Negative (Negative) 10/06/20 Unknown Blood Type O POSITIVE 10/03/20 05:57 Antibody Screen Negative 10/03/20 05:57 Crossmatch See Detail 10/03/20 05:57 Microbiology: Microbiology 10/08/20 14:35 Peripheral/Venous Blood Culture - Preliminary NO GROWTH AFTER 24 HOURS 10/08/20 15:02 Peripheral/Venous Blood Culture - Preliminary NO GROWTH AFTER 24 HOURS Jackson/IV: Voiding Method Condom Catheter Active Medications - Current Medications Current Medications: Generic Name Dose Route Start Last Admin Trade Name Freq PRN Reason Stop Dose Admin Acetaminophen 650 mg 10/03/20 02:10 10/06/20 15:28 Acetaminophen 325 Mg Tab PO 650 mg Q4H PRN Administration Pain MILD(1-3)/Fever >100.5/ROMERO Al Hydrox/Mg Hydrox/Simethicone 30 ml 10/03/20 02:10 Alum-Mag Hydroxide-Simethicone 357-641-45pb/5ml Oral Liqd 30 Ml PO Q4H PRN Indigestion Lipase/Protease/Amylase 1 each 10/03/20 16:51 Lipase 10,500/Protease 25,000/Amylase 43,750 (Units) Dr Reis FEEDTUBE PRN PRN For Clogged Feeding Tube Dextrose 0 ml 10/02/20 22:49 10/10/20 05:58 Dextrose 50% In Water (25gm) 50 Ml Syringe IV 50 ml Q30MIN PRN Administration Hypoglycemia Protocol Ferrous Sulfate 325 mg 10/03/20 10:00 10/09/20 16:46 Ferrous Sulfate 325 Mg Tab PO 325 mg QDAY JOSE Administration Folic Acid 1 mg 10/03/20 10:00 10/09/20 16:47 Folic Acid 1 Mg Tab PO 1 mg QDAY JOSE Administration Cefepime HCl 2 gm in 100 mls @ 200 mls/hr 10/08/20 11:00 10/10/20 06:19 Cefepime/Ns 2 Gm/100 Ml IV 200 mls/hr Q8H JOSE Administration Protocol Sodium Chloride 153.8 meq/ 1,038.45 mls @ 100 mls/hr 10/09/20 13:00 10/09/20 16:58 Dextrose IV 100 mls/hr DIRECT JOSE Administration Levetiracetam 750 mg/ Dextrose 107.5 mls @ 400 mls/hr 10/09/20 14:00 10/09/20 22:45 IV 400 mls/hr Q12HR JOSE Administration Magnesium Hydroxide 30 ml 10/03/20 02:10 Magnesium Hydroxide (Mom) Oral Liqd Udc PO Q4H PRN Constipation Metoclopramide HCl 10 mg 10/03/20 02:10 Metoclopramide 10 Mg/2 Ml Inj IV Q6H PRN Nausea And Vomiting Multivitamins 1 each 10/03/20 10:00 10/09/20 16:47 Multivitamins ,Therapeutic Tab PO 1 each QDAY JOSE Administration Ondansetron HCl 4 mg 10/03/20 02:10 10/07/20 23:19 Ondansetron 4 Mg/2 Ml Inj IV 4 mg Q8H PRN Administration Nausea And Vomiting Oxycodone/Acetaminophen 1 tab 10/03/20 02:10 Oxycodone /Acetaminophen 5-325mg Tab PO Q6H PRN Pain, Moderate (4-6) Pantoprazole Sodium 40 mg 10/04/20 15:00 10/09/20 09:23 Pantoprazole 40 Mg Inj IV 40 mg QDAY JOSE Administration Promethazine HCl 25 mg 10/03/20 02:10 Promethazine 25 Mg Rect Supp ID Q6H PRN N/V IF NPO AND NO IV ACCESS Senna 8.6 mg 10/03/20 02:10 Sennosides 8.6 Mg Tab PO Q12HR PRN Constipation Simple Syrup 15 ml 10/03/20 16:51 Simple Syrup 15 Ml FEEDTUBE PRN PRN Hypoglycemia Simple Syrup 30 ml 10/03/20 16:51 Simple Syrup 15 Ml FEEDTUBE PRN PRN Hypoglycemia Sodium Bicarbonate 325 mg 10/03/20 16:51 Sodium Bicarbonate 325 Mg Tab FEEDTUBE PRN PRN For Clogged Feeding Tube Sodium Chloride 2 gm 10/09/20 12:00 10/09/20 22:57 Sodium Chloride 1 Gm Tab PO 2 gm TID JOSE Administration Nutrition/Malnutrition Assess - Dietary Evaluation Nutrition/Malnutrition Findings: Nutrition Notes Start: 10/03/20 08:51 Freq: Status: Active Protocol: Document 10/06/20 12:52 (Rec: 10/06/20 12:55 [id number]) Nutrition Notes Initial or Follow up Reassessment Current Diagnosis Diabetes Other Pertinent Diagnosis AMS, hypothermia, pneu, anemia , atherosclerotic cerebrovascular disease Current Diet Jevity 1.2 at 65ml/hr Labs/Tests Na 133 K 3.5 Pertinent Medications Reviewed Height 5 ft 10 in Weight 81.3 kg [place] Body Weight (kg) 75.45 BMI 25.7 Weight Status Overweight Subjective/Other Information RN reports out of Jevity so Glucerna was started. TF running at 50 ml/hr and pt tolerating. Percent of energy/protein needs met: 77%/86% Burn Absent Trauma Absent Minimum of two criteria No #1 Nutrition Diagnosis Swallowing difficulty Diagnosis Progress(for reassessment Continues documentation) Is patient on ventilator? No Is Patient Ambulatory and/or Out of Bed No REE-([facility]-confined to bed) [phone] Calculation Used for Recommendations [facility] Additional Notes Protein: (1-1.2g/kg) 84-101g Fluid: 1 ml/kcal Nutrition Intervention Change Diet Order: continue Nutrition Support: Glucerna 1.2 at 65 ml/hr Flush 100 ml q4h Kcal 1,782 Protein (gm) 94 Fluid (mL) 1,256 Goal #1 Meet at least 75% of protein and energy needs via TF Anticipated Discharge Needs: Glucerna 1.2 at 65 ml/hr Flush 100 ml q4h Follow-Up By: 10/11/20 Additional Comments F/u: stable TF and rate
[2020-10-10] MEDS: FOLIC ACID 1 MG TAB PO SCH (11:39)
[2020-10-10] MEDS: FERROUS SULFATE 325 MG TAB PO SCH (11:39)
[2020-10-10] MEDS: MULTIVITAMINS ,THERAPEUTIC TAB PO SCH (11:39)
[2020-10-10] MEDS: PANTOPRAZOLE 40 MG INJ IV SCH (11:40)
[2020-10-10] MEDS: levETIRAcetam 750 MG in DEXTROSE 5% IN WATER 100 ML IV SCH (11:42)
[2020-10-10 12:30] LABS: BUN/Creatinine Ratio 21; Blood Urea Nitrogen 23 mg/dL (9-20); Calcium 9.2 mg/dL (8.4-10.2); Hemolysis Index 12
[2020-10-10 12:43] LABS: Hematocrit 33.9 % (35.5-45.6); Hemoglobin 10.3 gm/dl (11.8-15.2); Mean Corpuscular HGB Conc 30 % (32-34); Mean Corpuscular Volume 78 fl (84-94); Red Blood Count 4.33 M/mm3 (3.65-5.03)
[2020-10-10 12:46] LABS: Red Cell Distribution Width 33.2 % (13.2-15.2)
--- NOTE | 2020-10-10 13:22 | Progress Note ---
Assessment and Plan Acute encephalopathy hyponatremia Hypothermia, resolved Pulmonary infiltrate in right lung on CXR Atherosclerotic cerebrovascular disease Severe anemia -possible GI bleed Severe protein-calorie malnutrition cont D10W with NS for now will cont to monitor sodium level avoid correction m ore than 8mmol/l in 24 hours Subjective Date of service: 10/10/20 Principal diagnosis: hyponatremia Interval history: remains to have episodes of hypoglycemia Objective - Vital Signs Vital signs: Vital Signs - 12hr 10/10/20 10/10/20 10/10/20 03:39 05:03 09:23 Temperature 98.4 F Pulse Rate 63 68 Respiratory 16 14 Rate Blood Pressure 110/85 Blood Pressure 118/80 [Right] O2 Sat by Pulse 99 97 95 Oximetry 10/10/20 10/10/20 09:27 13:11 Temperature 97.0 F L Pulse Rate 71 Respiratory Rate Blood Pressure Blood Pressure [Right] O2 Sat by Pulse 97 Oximetry - Lab 10/10/20 10:58 10/10/20 10:58 Most recent lab results Calcium 9.2 mg/dL (8.4-10.2) 10/10/20 10:58 Phosphorus 3.00 mg/dL (2.5-4.5) 10/06/20 05:07 Magnesium 1.90 mg/dL (1.7-2.3) 10/06/20 05:07 Urine Sodium 10 mmol/L 10/07/20 Unknown Medications & Allergies - Medications Allergies/Adverse Reactions: Allergies No Known Allergies Allergy (Unverified 10/03/20 12:27) Active Medications: Generic Name Dose Route Start Last Admin Trade Name Freq PRN Reason Stop Dose Admin Acetaminophen 650 mg 10/03/20 02:10 10/06/20 15:28 Acetaminophen 325 Mg Tab PO 650 mg Q4H PRN Administration Pain MILD(1-3)/Fever >100.5/ROMERO Al Hydrox/Mg Hydrox/Simethicone 30 ml 10/03/20 02:10 Alum-Mag Hydroxide-Simethicone 097-549-00lm/5ml Oral Liqd 30 Ml PO Q4H PRN Indigestion Lipase/Protease/Amylase 1 each 10/03/20 16:51 Lipase 10,500/Protease 25,000/Amylase 43,750 (Units) Dr Reis FEEDTUBE PRN PRN For Clogged Feeding Tube Dextrose 0 ml 10/02/20 22:49 10/10/20 05:58 Dextrose 50% In Water (25gm) 50 Ml Syringe IV 50 ml Q30MIN PRN Administration Hypoglycemia Protocol Ferrous Sulfate 325 mg 10/03/20 10:00 10/10/20 11:39 Ferrous Sulfate 325 Mg Tab PO Not Given QDAY JOSE Folic Acid 1 mg 10/03/20 10:00 10/10/20 11:39 Folic Acid 1 Mg Tab PO Not Given QDAY JOSE Cefepime HCl 2 gm in 100 mls @ 200 mls/hr 10/08/20 11:00 10/10/20 06:19 Cefepime/Ns 2 Gm/100 Ml IV 200 mls/hr Q8H JOSE Administration Protocol Sodium Chloride 153.8 meq/ 1,038.45 mls @ 100 mls/hr 10/09/20 13:00 10/09/20 16:58 Dextrose IV 100 mls/hr DIRECT JOSE Administration Levetiracetam 750 mg/ Dextrose 107.5 mls @ 400 mls/hr 10/09/20 14:00 10/10/20 11:42 IV 400 mls/hr Q12HR JOSE Administration Magnesium Hydroxide 30 ml 10/03/20 02:10 Magnesium Hydroxide (Mom) Oral Liqd Udc PO Q4H PRN Constipation Metoclopramide HCl 10 mg 10/03/20 02:10 Metoclopramide 10 Mg/2 Ml Inj IV Q6H PRN Nausea And Vomiting Multivitamins 1 each 10/03/20 10:00 10/10/20 11:39 Multivitamins ,Therapeutic Tab PO Not Given QDAY [facility] Ondansetron HCl 4 mg 10/03/20 02:10 10/07/20 23:19 Ondansetron 4 Mg/2 Ml Inj IV 4 mg Q8H PRN Administration Nausea And Vomiting Oxycodone/Acetaminophen 1 tab 10/03/20 02:10 Oxycodone /Acetaminophen 5-325mg Tab PO Q6H PRN Pain, Moderate (4-6) Pantoprazole Sodium 40 mg 10/04/20 15:00 10/10/20 11:40 Pantoprazole 40 Mg Inj IV 40 mg QDAY JOSE Administration Promethazine HCl 25 mg 10/03/20 02:10 Promethazine 25 Mg Rect Supp ME Q6H PRN N/V IF NPO AND NO IV ACCESS Senna 8.6 mg 10/03/20 02:10 Sennosides 8.6 Mg Tab PO Q12HR PRN Constipation Simple Syrup 15 ml 10/03/20 16:51 Simple Syrup 15 Ml FEEDTUBE PRN PRN Hypoglycemia Simple Syrup 30 ml 10/03/20 16:51 Simple Syrup 15 Ml FEEDTUBE PRN PRN Hypoglycemia Sodium Bicarbonate 325 mg 10/03/20 16:51 Sodium Bicarbonate 325 Mg Tab FEEDTUBE PRN PRN For Clogged Feeding Tube Sodium Chloride 2 gm 10/09/20 12:00 10/10/20 08:00 Sodium Chloride 1 Gm Tab PO Not Given TID JOSE
--- NOTE | 2020-10-10 13:28 | Progress Note ---
Assessment and Plan Assessment and Plan Assessment and plan: 74 yo man who presented with AMS and left sided weakness. Patient was found by caregiver in his bed incontinent in feces/urine. Assessment and plan: # Acute encephalopathy -CT angio of the head that is a significant narrowing seen in both posterior cerebral arteries - and no signs of large vessel -CT of the head no acute finding but showed a cerebral atrophy with suspicious atrophy and atherosclerotic calcification within the distal right middle cerebral artery. -MRI brain without any acute findings - EEG today remarkable for diffuse slowing 3-4 Hz and with occassional triphasic waves , no epileptiform discharges is noted -- full report to follow -Repeat MRI brainshowed no acute finding -Decrease Keppra 250 mg IV bid !!! #Left-sided hemiparesis with significant aphasia Placed on stroke protocol, neurology following, failed swallow eval MRI brain without any new findings, # Hypothermia, resolved Monitor body temperature Applied bed hugger # Pulmonary infiltrate in right lung on CXR COVID-19 test is negative Likely secondary to pneumonia Start empiric antibiotics Rocephin and azithromycin # Atherosclerotic cerebrovascular disease Safety and fall precaution at all times PT OT consult follow-up with recommendation for discharge placement #Severe anemia -possible GI bleed? 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 malnutrition remelt worker consult, failed swallow eval Order for Dobbhoff tube and Tube feeding #Persistent hypoglycemia, patient placed D10, will also initiate tube feeding # DVT prophylaxis ACD hold Subcutaneous anticoagulant due to low H/H PLAN 1- EEG today noted full report to follow no sign of seizure but diffuse slowing suggestive of encephalopathic process 2-Decrease Keppra 250 mg IV bid over all prognosis is quarded will follow as needed Subjective Date of service: 10/10/20 Principal diagnosis: hyponatremia, encephalopathy Interval history: may be slightly better responds to calling his name but is with slight if any speech out put not follow command move LES to pain stimulation , not upper Objective - Vital Sign Vital Signs - 12hr 10/10/20 10/10/20 10/10/20 03:39 05:03 09:23 Temperature 98.4 F Pulse Rate 63 68 Respiratory 16 14 Rate Blood Pressure 110/85 Blood Pressure 118/80 [Right] O2 Sat by Pulse 99 97 95 Oximetry 10/10/20 10/10/20 09:27 13:11 Temperature 97.0 F L Pulse Rate 71 Respiratory Rate Blood Pressure Blood Pressure [Right] O2 Sat by Pulse 97 Oximetry - General Apperance Constitutional: comfortable - EENT EENT: PERRL, mucous membranes moist - Respiratory Respiratory: chest non-tender, rhonchi - Cardiovascular Cardiovascular: regular rate, normal S1, normal S2 Extremities: no peripheral edema bilat, no clubbing, cyanosis - Gastrointestinal Gastrointestinal: normoactive bowel sounds - Integumentary Integumentary: normal - Neurologic Cranial nerve examination: anosmic, PERRL, other (eyes deviated to left EOMI , pupils reactive constricted sluggish ) Speech examination: other (no speech out put ) Detailed motor examination: other (slight withdraw to pain stimuli in lower ) - Laboratory Findings CBC and BMP: 10/10/20 10:58 10/10/20 10:58 Abnormal Lab Findings: Abnormal Labs 10/02/20 10/02/20 10/02/20 23:17 23:17 23:17 WBC RBC 3.31 L Hgb 6.7 L Hct 21.8 L MCV 66 L MCH 20 L MCHC 31 L RDW 31.7 H Plt Count Seg Neutrophils % Seg Neuts % (Manual) 79.0 H Lymphocytes % (Manual) 11.0 L Monocytes % (Manual) 10.0 H Nucleated RBC % Seg Neutrophils # Man Lymphocytes # (Manual) 0.9 L Monocytes # (Manual) PT 20.8 H INR 1.74 H APTT 57.6 H Sodium Potassium Chloride Carbon Dioxide BUN Creatinine Glucose 42 L POC Glucose Lactic Acid Iron Ammonia CK-MB (CK-2) 7.5 H CK-MB (CK-2) Rel Index 8.5 H Total Protein Albumin 2.9 L Salicylates Acetaminophen Crossmatch 10/02/20 10/02/20 10/02/20 23:17 23:17 23:17 WBC RBC Hgb Hct MCV MCH MCHC RDW Plt Count Seg Neutrophils % Seg Neuts % (Manual) Lymphocytes % (Manual) Monocytes % (Manual) Nucleated RBC % Seg Neutrophils # Man Lymphocytes # (Manual) Monocytes # (Manual) PT INR APTT Sodium Potassium Chloride Carbon Dioxide BUN Creatinine Glucose POC Glucose Lactic Acid 2.20 H* Iron Ammonia 22.0 L CK-MB (CK-2) CK-MB (CK-2) Rel Index Total Protein Albumin Salicylates < 0.3 L Acetaminophen Crossmatch 10/02/20 10/03/20 10/03/20 23:17 05:57 05:57 WBC RBC 2.66 L Hgb 5.3 L* Hct 17.8 L* MCV 67 L MCH 20 L MCHC 30 L RDW 32.1 H Plt Count Seg Neutrophils % Seg Neuts % (Manual) Lymphocytes % (Manual) 2.0 L Monocytes % (Manual) Nucleated RBC % 1.0 H Seg Neutrophils # Man 8.6 H Lymphocytes # (Manual) 0.2 L Monocytes # (Manual) PT INR APTT Sodium Potassium Chloride Carbon Dioxide BUN Creatinine Glucose POC Glucose Lactic Acid Iron Ammonia CK-MB (CK-2) CK-MB (CK-2) Rel Index Total Protein Albumin Salicylates Acetaminophen 5.0 L Crossmatch See Detail 10/03/20 10/03/20 10/03/20 05:57 05:57 06:00 WBC RBC Hgb Hct MCV MCH MCHC RDW Plt Count Seg Neutrophils % Seg Neuts % (Manual) Lymphocytes % (Manual) Monocytes % (Manual) Nucleated RBC % Seg Neutrophils # Man Lymphocytes # (Manual) Monocytes # (Manual) PT INR APTT Sodium Potassium Chloride Carbon Dioxide BUN Creatinine Glucose 52 L POC Glucose 31 L Lactic Acid Iron 42 L Ammonia CK-MB (CK-2) CK-MB (CK-2) Rel Index Total Protein 5.8 L Albumin 3.1 L Salicylates Acetaminophen Crossmatch 10/03/20 10/03/20 10/03/20 07:34 09:43 10:57 WBC RBC Hgb Hct MCV MCH MCHC RDW Plt Count Seg Neutrophils % Seg Neuts % (Manual) Lymphocytes % (Manual) Monocytes % (Manual) Nucleated RBC % Seg Neutrophils # Man Lymphocytes # (Manual) Monocytes # (Manual) PT INR APTT Sodium Potassium Chloride Carbon Dioxide BUN Creatinine Glucose POC Glucose 59 L 41 L 31 L Lactic Acid Iron Ammonia CK-MB (CK-2) CK-MB (CK-2) Rel Index Total Protein Albumin Salicylates Acetaminophen Crossmatch 10/03/20 10/03/20 10/03/20 11:21 12:00 12:14 WBC RBC Hgb Hct MCV MCH MCHC RDW Plt Count Seg Neutrophils % Seg Neuts % (Manual) Lymphocytes % (Manual) Monocytes % (Manual) Nucleated RBC % Seg Neutrophils # Man Lymphocytes # (Manual) Monocytes # (Manual) PT INR APTT Sodium Potassium Chloride Carbon Dioxide BUN Creatinine Glucose POC Glucose 62 L 26 L 140 H Lactic Acid Iron Ammonia CK-MB (CK-2) CK-MB (CK-2) Rel Index Total Protein Albumin Salicylates Acetaminophen Crossmatch 10/03/20 10/03/20 10/03/20 13:33 14:19 14:59 WBC RBC Hgb Hct MCV MCH MCHC RDW Plt Count Seg Neutrophils % Seg Neuts % (Manual) Lymphocytes % (Manual) Monocytes % (Manual) Nucleated RBC % Seg Neutrophils # Man Lymphocytes # (Manual) Monocytes # (Manual) PT INR APTT Sodium Potassium Chloride Carbon Dioxide BUN Creatinine Glucose POC Glucose 24 L 59 L 40 L Lactic Acid Iron Ammonia CK-MB (CK-2) CK-MB (CK-2) Rel Index Total Protein Albumin Salicylates Acetaminophen Crossmatch 10/03/20 10/03/20 10/03/20 15:26 15:57 16:35 WBC RBC Hgb Hct MCV MCH MCHC RDW Plt Count Seg Neutrophils % Seg Neuts % (Manual) Lymphocytes % (Manual) Monocytes % (Manual) Nucleated RBC % Seg Neutrophils # Man Lymphocytes # (Manual) Monocytes # (Manual) PT INR APTT Sodium Potassium Chloride Carbon Dioxide BUN Creatinine Glucose POC Glucose 54 L 45 L 42 L Lactic Acid Iron Ammonia CK-MB (CK-2) CK-MB (CK-2) Rel Index Total Protein Albumin Salicylates Acetaminophen Crossmatch 10/03/20 10/03/20 10/03/20 17:16 18:37 19:56 WBC RBC Hgb Hct MCV MCH MCHC RDW Plt Count Seg Neutrophils % Seg Neuts % (Manual) Lymphocytes % (Manual) Monocytes % (Manual) Nucleated RBC % Seg Neutrophils # Man Lymphocytes # (Manual) Monocytes # (Manual) PT INR APTT Sodium Potassium Chloride Carbon Dioxide BUN Creatinine Glucose POC Glucose 41 L 46 L 57 L Lactic Acid Iron Ammonia CK-MB (CK-2) CK-MB (CK-2) Rel Index Total Protein Albumin Salicylates Acetaminophen Crossmatch 10/03/20 10/04/20 10/04/20 21:32 01:04 01:11 WBC RBC Hgb 9.6 L D Hct 28.3 L D MCV MCH MCHC RDW Plt Count Seg Neutrophils % Seg Neuts % (Manual) Lymphocytes % (Manual) Monocytes % (Manual) Nucleated RBC % Seg Neutrophils # Man Lymphocytes # (Manual) Monocytes # (Manual) PT INR APTT Sodium Potassium Chloride Carbon Dioxide BUN Creatinine Glucose POC Glucose 65 L 51 L Lactic Acid Iron Ammonia CK-MB (CK-2) CK-MB (CK-2) Rel Index Total Protein Albumin Salicylates Acetaminophen Crossmatch 10/04/20 10/04/20 10/04/20 05:59 05:59 15:10 WBC 13.4 H RBC Hgb 9.9 L 10.1 L Hct 32.0 L 31.8 L MCV 76 L MCH 24 L MCHC 31 L RDW 31.3 H Plt Count Seg Neutrophils % Seg Neuts % (Manual) 86.0 H Lymphocytes % (Manual) 6.0 L Monocytes % (Manual) 8.0 H Nucleated RBC % 2.0 H Seg Neutrophils # Man 11.5 H Lymphocytes # (Manual) 0.8 L Monocytes # (Manual) 1.1 H PT INR APTT Sodium 136 L Potassium 3.5 L Chloride Carbon Dioxide 19 L D BUN Creatinine Glucose POC Glucose Lactic Acid Iron Ammonia CK-MB (CK-2) CK-MB (CK-2) Rel Index Total Protein Albumin 2.6 L Salicylates Acetaminophen Crossmatch 10/04/20 10/04/20 10/05/20 16:28 22:33 04:43 WBC RBC Hgb 10.5 L Hct 32.5 L MCV MCH MCHC RDW Plt Count Seg Neutrophils % Seg Neuts % (Manual) Lymphocytes % (Manual) Monocytes % (Manual) Nucleated RBC % Seg Neutrophils # Man Lymphocytes # (Manual) Monocytes # (Manual) PT INR APTT Sodium Potassium Chloride Carbon Dioxide BUN Creatinine Glucose POC Glucose 66 L 113 H Lactic Acid Iron Ammonia CK-MB (CK-2) CK-MB (CK-2) Rel Index Total Protein Albumin Salicylates Acetaminophen Crossmatch 10/05/20 10/05/20 10/05/20 05:00 09:42 11:57 WBC RBC Hgb 9.8 L Hct 30.5 L MCV 74 L MCH 24 L MCHC RDW 31.6 H Plt Count Seg Neutrophils % Seg Neuts % (Manual) Lymphocytes % (Manual) Monocytes % (Manual) Nucleated RBC % Seg Neutrophils # Man Lymphocytes # (Manual) Monocytes # (Manual) PT INR APTT Sodium 132 L Potassium 3.5 L Chloride Carbon Dioxide 19 L BUN Creatinine 0.7 L Glucose POC Glucose 129 H Lactic Acid Iron Ammonia CK-MB (CK-2) CK-MB (CK-2) Rel Index Total Protein Albumin Salicylates Acetaminophen Crossmatch 10/05/20 10/05/20 10/06/20 16:47 21:51 05:07 WBC RBC Hgb 9.4 L Hct 30.1 L MCV 76 L MCH 24 L MCHC 31 L RDW 31.1 H Plt Count Seg Neutrophils % Seg Neuts % (Manual) Lymphocytes % (Manual) Monocytes % (Manual) Nucleated RBC % Seg Neutrophils # Man Lymphocytes # (Manual) Monocytes # (Manual) PT INR APTT Sodium Potassium Chloride Carbon Dioxide BUN Creatinine Glucose POC Glucose 132 H 115 H Lactic Acid Iron Ammonia CK-MB (CK-2) CK-MB (CK-2) Rel Index Total Protein Albumin Salicylates Acetaminophen Crossmatch 10/06/20 10/06/20 10/06/20 05:07 15:37 21:01 WBC RBC Hgb Hct MCV MCH MCHC RDW Plt Count Seg Neutrophils % Seg Neuts % (Manual) Lymphocytes % (Manual) Monocytes % (Manual) Nucleated RBC % Seg Neutrophils # Man Lymphocytes # (Manual) Monocytes # (Manual) PT INR APTT Sodium 133 L Potassium 3.5 L Chloride Carbon Dioxide 21 L BUN Creatinine 0.6 L Glucose 105 H POC Glucose 136 H 108 H Lactic Acid Iron Ammonia CK-MB (CK-2) CK-MB (CK-2) Rel Index Total Protein Albumin Salicylates Acetaminophen Crossmatch 10/07/20 10/07/20 10/07/20 04:52 04:52 06:07 WBC RBC Hgb 9.6 L Hct 29.4 L MCV 73 L MCH 24 L MCHC RDW 32.2 H Plt Count Seg Neutrophils % Seg Neuts % (Manual) Lymphocytes % (Manual) Monocytes % (Manual) Nucleated RBC % Seg Neutrophils # Man Lymphocytes # (Manual) Monocytes # (Manual) PT INR APTT Sodium 128 L Potassium Chloride Carbon Dioxide 20 L BUN Creatinine 0.7 L Glucose POC Glucose 110 H Lactic Acid Iron Ammonia CK-MB (CK-2) CK-MB (CK-2) Rel Index Total Protein Albumin Salicylates Acetaminophen Crossmatch 10/07/20 10/07/20 10/07/20 17:09 18:53 20:35 WBC RBC Hgb Hct MCV MCH MCHC RDW Plt Count Seg Neutrophils % Seg Neuts % (Manual) Lymphocytes % (Manual) Monocytes % (Manual) Nucleated RBC % Seg Neutrophils # Man Lymphocytes # (Manual) Monocytes # (Manual) PT INR APTT Sodium Potassium Chloride Carbon Dioxide BUN Creatinine Glucose POC Glucose 67 L 66 L 62 L Lactic Acid Iron Ammonia CK-MB (CK-2) CK-MB (CK-2) Rel Index Total Protein Albumin Salicylates Acetaminophen Crossmatch 10/07/20 10/08/20 10/08/20 21:55 05:00 05:00 WBC RBC Hgb 9.6 L Hct 29.4 L MCV 73 L MCH 24 L MCHC RDW 32.4 H Plt Count Seg Neutrophils % 80.6 H Seg Neuts % (Manual) 88.0 H Lymphocytes % (Manual) 9.0 L Monocytes % (Manual) Nucleated RBC % 5.0 H Seg Neutrophils # Man Lymphocytes # (Manual) 0.5 L Monocytes # (Manual) PT INR APTT Sodium 126 L Potassium Chloride 96.3 L Carbon Dioxide BUN Creatinine 0.7 L Glucose POC Glucose 132 H Lactic Acid Iron Ammonia CK-MB (CK-2) CK-MB (CK-2) Rel Index Total Protein Albumin Salicylates Acetaminophen Crossmatch 10/08/20 10/09/20 10/09/20 22:26 01:36 02:22 WBC RBC Hgb Hct MCV MCH MCHC RDW Plt Count Seg Neutrophils % Seg Neuts % (Manual) Lymphocytes % (Manual) Monocytes % (Manual) Nucleated RBC % Seg Neutrophils # Man Lymphocytes # (Manual) Monocytes # (Manual) PT INR APTT Sodium Potassium Chloride Carbon Dioxide BUN Creatinine Glucose POC Glucose 63 L 62 L 151 H Lactic Acid Iron Ammonia CK-MB (CK-2) CK-MB (CK-2) Rel Index Total Protein Albumin Salicylates Acetaminophen Crossmatch 10/09/20 10/09/20 10/09/20 05:07 05:42 06:32 WBC RBC Hgb 10.3 L Hct 33.8 L MCV 77 L MCH 24 L MCHC 31 L RDW 33.6 H Plt Count 137 L Seg Neutrophils % Seg Neuts % (Manual) 89.0 H Lymphocytes % (Manual) 5.0 L Monocytes % (Manual) Nucleated RBC % 4.0 H Seg Neutrophils # Man 9.4 H Lymphocytes # (Manual) 0.5 L Monocytes # (Manual) PT INR APTT Sodium 126 L Potassium Chloride 97.8 L Carbon Dioxide 20 L BUN Creatinine Glucose 58 L POC Glucose 48 L Lactic Acid Iron Ammonia CK-MB (CK-2) CK-MB (CK-2) Rel Index Total Protein Albumin Salicylates Acetaminophen Crossmatch 10/09/20 10/10/20 10/10/20 06:35 00:21 05:53 WBC RBC Hgb Hct MCV MCH MCHC RDW Plt Count Seg Neutrophils % Seg Neuts % (Manual) Lymphocytes % (Manual) Monocytes % (Manual) Nucleated RBC % Seg Neutrophils # Man Lymphocytes # (Manual) Monocytes # (Manual) PT INR APTT Sodium Potassium Chloride Carbon Dioxide BUN Creatinine Glucose POC Glucose 106 H 153 H 34 L Lactic Acid Iron Ammonia CK-MB (CK-2) CK-MB (CK-2) Rel Index Total Protein Albumin Salicylates Acetaminophen Crossmatch 10/10/20 10/10/20 10/10/20 10:58 10:58 12:39 WBC RBC Hgb 10.3 L Hct 33.9 L MCV 78 L MCH 24 L MCHC 30 L RDW 33.2 H Plt Count Seg Neutrophils % Seg Neuts % (Manual) Lymphocytes % (Manual) Monocytes % (Manual) Nucleated RBC % Seg Neutrophils # Man Lymphocytes # (Manual) Monocytes # (Manual) PT INR APTT Sodium 127 L Potassium Chloride Carbon Dioxide 20 L BUN 23 H Creatinine Glucose POC Glucose 108 H Lactic Acid Iron Ammonia CK-MB (CK-2) CK-MB (CK-2) Rel Index Total Protein Albumin Salicylates Acetaminophen Crossmatch
--- NOTE | 2020-10-10 15:02 | Progress Note ---
Assessment and Plan Cultures: Blood culture 10/02/2020 no growth 10/08/2020 pending Covid PCR: Negative A/P: 68-year-old man past medical history hypertension admitted with acute encephalopathy. #Acute encephalopathy: possible secondary to neurological issue. MRI normal, however residual left sided weakness. #Bilateral pneumonia: infiltrates seen on CXR, however patient afebrile, normal white count, not requiring oxygen. COVID negative x2 #Left sided weakness Recs: -Awaiting procalcitonin result. Stop antibiotics if low. -Continue cefepime for now Thank you for the consult, we will continue to follow. Khanh Tanner MD [facility] ([facility]) O: [phone] F: [phone] Subjective Date of service: 10/10/20 Principal diagnosis: hyponatremia, encephalopathy Interval history: Afebrile, normal white count. Objective - Exam Narrative Exam: Physical Exam: Constitutional: Confused Head, Ears, Nose: Normocephalic, atraumatic. External ears, nose normal Eyes: Conjunctivae/corneas clear. No icterus. No ptosis. Neck: Supple, no meningeal signs Oral: dentition fair, no thrush Cardiovascular: S1, S2 normal. Respiratory: Good air entry, clear to auscultation bilaterally GI: Soft, non-tender; bowel sounds normal. No peritoneal signs. Musculoskeletal: No pedal edema, no cyanosis. Skin: No rash or abscess Hem/Lymphatic: No palpable cervical or supraclavicular nodes. No lymphangitis Psych: Encephalopathic Neurological: Encephalopathic - Constitutional Vitals: Vital Signs Temp Pulse Resp BP Pulse Ox 97.0 F L 71 14 110/85 97 10/10/20 09:27 10/10/20 13:11 10/10/20 09:23 10/10/20 09:23 10/10/20 13:11 Temperature -Last 24 Hours Temperature 97.0 F Temperature 98.4 F Temperature 98.7 F - Labs CBC & Chem 7: 10/10/20 10:58 10/10/20 10:58 Labs: Abnormal lab results 10/10/20 10/10/20 10/10/20 Range/Units 00:21 05:53 10:58 Hgb 10.3 L (11.8-15.2) gm/dl Hct 33.9 L (35.5-45.6) % MCV 78 L (84-94) fl MCH 24 L (28-32) pg MCHC 30 L (32-34) % RDW 33.2 H (13.2-15.2) % Sodium (137-145) mmol/L Carbon Dioxide (22-30) mmol/L BUN (9-20) mg/dL POC Glucose 153 H 34 L (70-105) mg/dL 10/10/20 10/10/20 Range/Units 10:58 12:39 Hgb (11.8-15.2) gm/dl Hct (35.5-45.6) % MCV (84-94) fl MCH (28-32) pg MCHC (32-34) % RDW (13.2-15.2) % Sodium 127 L (137-145) mmol/L Carbon Dioxide 20 L (22-30) mmol/L BUN 23 H (9-20) mg/dL POC Glucose 108 H (70-105) mg/dL
--- NOTE | 2020-10-10 16:41 | Event Note ---
Date: 10/10/[address], and pt getting TF. EGD/Colonoscopy to be done 10/12/20, based on resource availability.
[2020-10-10 18:54] LABS: Total Cells Counted 100
[2020-10-10 18:55] LABS: Anisocytosis 3+; Giant Platelets Few; Hypochromasia 1+; Target Cells 1+
[2020-10-10 19:17] LABS: Platelet Count 135 K/mm3 (140-440)
[2020-10-10] MEDS: WATER IV SCH (21:55)
[2020-10-10] MEDS: SODIUM CHLORIDE IV SCH (21:55)
[2020-10-10] MEDS: DEXTROSE 10% IV SCH (21:55)
[2020-10-10] MEDS: levETIRAcetam 250 MG in DEXTROSE 5% IN WATER 100 ML IV SCH (23:21)
[2020-10-11] MEDS ORDERED: SODIUM CHLORIDE 0.9% 500 ML 500 ML IV ONE (04:51)
[2020-10-11 06:17] LABS: Hematocrit 31.3 % (35.5-45.6); Hemoglobin 9.5 gm/dl (11.8-15.2); Mean Corpuscular HGB Conc 30 % (32-34); Mean Corpuscular Volume 77 fl (84-94); Red Blood Count 4.09 M/mm3 (3.65-5.03)
[2020-10-11 06:19] LABS: Red Cell Distribution Width 33.7 % (13.2-15.2)
[2020-10-11 06:27] LABS: BUN/Creatinine Ratio 21; Blood Urea Nitrogen 23 mg/dL (9-20); Calcium 9.1 mg/dL (8.4-10.2); Hemolysis Index 14
[2020-10-11] MEDS: SODIUM CHLORIDE 1 GM TAB PO SCH ×3 (08:00→22:06)
[2020-10-11] MEDS ORDERED: SODIUM CHLORIDE 0.9% 500 ML 500 ML IV SCH (08:00)
[2020-10-11] MEDS: CEFEPIME/NS 2 GM/100 ML 2 GM/100 ML BAG IV SCH ×2 (08:07→09:26)
--- NOTE | 2020-10-11 09:42 | Progress Note ---
Assessment and Plan Assessment and plan: -- Acute encephalopathy CT angio of the head that is a significant narrowing seen in both posterior cere bral arteries and no signs of large vessel CT of the head no acute finding but showed a cerebral atrophy with suspicious atrophy and atherosclerotic calcification within the distal right middle cereb ral artery. MRI brain without any acute findings Neurology consulted, will follow EEG -cannot r/o acute seizure with postictal state --Left-sided hemiparesis with significant aphasia Placed on stroke protocol, neurology following, failed swallow eval MRI brain without any new findings, EEG ordered and pending Aspirin due to severe anemia, will initiate Lipitor when able to tolerate tube feeding -- Hypothermia, resolved Monitor body temperature Applied bed hugger -- Pulmonary infiltrate in right lung on CXR COVID-19 test is negative Likely secondary to pneumonia Start empiric antibiotics Rocephin and azithromycin -- Atherosclerotic cerebrovascular disease Safety and fall precaution at all times PT OT consult follow-up with recommendation for discharge placement --Severe anemia -possible GI bleed? Likely 2/2 to malnutrion-patient has no evidence of active bleeding and has normal PLT Monitor H&Hadmission H&H 6.7> 5.8 S/p 3 units of blood transfusion Iron and multivitamin supplement Check iron level, ordered stool for occult blood GI consulted -- Severe protein-calorie malnutrition saw feeder consult, failed swallow eval Order for Dobbhoff tube and Tube feeding --Persistent hypoglycemia, patient placed D10, will also initiate tube feeding -- DVT prophylaxis ACD hold Subcutaneous anticoagulant due to low H/H Daily clinical course: 10/03/20: CT of the head no acute finding but showed a cerebral atrophy with suspicious atrophy and atherosclerotic calcification within the distal right middle cerebral artery. Patient also noted with hemoglobin of 5.8, received 1 unit of packed RBC and ordered for tomorrow Neuro is consulted, Covid test is negative We will check stool for occult blood MRI brain ordered we will follow Will hold any oral medicine until cleared by speech or passes the bedside swallow eval Patient noted to have severe hypoglycemic, will place on D10W Follow H&H and BMP Continue current management plan as dictated in the HPI 10/04/20: no acute findings in MRI, pending EEG, s/p 3 units PRBC transfusion. follow speech eval, TF for now, h/h stable, GI consulted - follow recommendation. 10/05/20 Patient with acute encephalopathy, severe anemia s/p PRBC transfusion. GI following. Hgb 9.8 today. Will repeat in am. Left sided weakness. MRI negative for stroke. Neurology following. 10/06/20 Patient with encephalopathy, severe anemia s/p PRBC transfusion. Hgb 9.4 today. Patient has left sided weakness but MRI neg. Patient needs PEG tube. Will talk with family. Hypokalemia. Replace Q6h X 2. Check Mg 10/07/20 Patient with encephalopathy, severe anemia s/p PRBC transfusion. Hgb 9.6 today. Patient has left sided weakness but MRI neg. Patient needs PEG tube. Will talk with family. Hyponatremia of 128. This may be due to D10% he was on prior to NG tube. Stopped 10% Dextrose. Consulted Nephrology 10/08/20 Patient with encephalopathy, severe anemia s/p PRBC transfusion. Hgb 9.6 today. Patient has left sided weakness but MRI neg. Patient needs PEG tube. Hyponatremia worse today 126. This is due to D10% resumed last night because of hypoglycemia. I discussed with Dr. Herrera. Stop 10%Dextrose. Start D5NS Spoke to daughter, Cindy Singh, yesterday and gave update. She wants PEG tube placed. Discussed plan with PAKO Chambers. He wants to do upper and lower endoscopy to evaluate anemia, before PEG tube 10/09/20 Patient with encephalopathy, severe anemia s/p PRBC transfusion. Hgb 10.3 today. Patient has left sided weakness but MRI neg. Patient needs PEG tube. Hyponatremia still present Na 126 today. This is due to D10% resumed again last night because of hypoglycemia. Nephrology had recommended D5NS but 10% Dextrose restarted overnight because of hypoglycemia. Nurses unable to place NG tube. I discussed with Dr. Otero today and he will do. Spoke to daughter, Cindy Singh, yesterday and gave update. She wants PEG tube placed. Discussed plan with PAKO Chambers. He wants to do upper and lower endoscopy to evaluate anemia, before PEG tube Today Na still 126. I discussed with Dr. Herrera and he recommended D10NS. I called Pharmacy. They will mix special D10NS drip. Patient had bilateral pneumonia on CXR therefore started iv Antibiotics, blood cultures. yesterday. Consulted ID 10/10/2020. Patient remains encephalopathic with hemoglobin stabilizing yesterday. Recheck H&H. Patient with left-sided weakness but MRI negative. Fluoroscopic NG tube placement completed yesterday. Await GI to perform EGD and colonoscopy. Follow-up hyponatremia with BMP results. Dr. Aldrich Spoke to daughter, Cindy Singh, and gave update. Daughter wants PEG tube placed. Continue IV antibiotics for bilateral pneumonia. ID consulted. Follow-up procalcitonin levels. 10/11/2020. Patient's hemoglobin remained stable today at 9.5. However, patient noted to be hypotensive with systolic blood pressure of 83. Patient received NS 250 cc bolus with improvement of blood pressure systolically to 123. GI plans to perform EGD/colonoscopy tomorrow. Hyponatremia improving. Start IV fluid of normal saline at 75 cc an hour x1 L History Interval history: No new issues overnight Hospitalist Physical - Constitutional Vitals: Temp Pulse Resp BP Pulse Ox 98.1 F 52 L 20 123/66 97 10/11/20 08:29 10/11/20 08:29 10/11/20 08:29 10/11/20 08:29 10/11/20 08:29 General appearance: Present: well-nourished - EENT Eyes: Present: PERRL, EOM intact ENT: hearing intact, clear oral mucosa, dentition normal - Neck Neck: Present: supple, normal ROM - Respiratory Respiratory effort: normal Respiratory: bilateral: CTA - Cardiovascular Rhythm: regular Heart Sounds: Present: S1 & S2. Absent: gallop, rub - Extremities Extremities: no ischemia, No edema, Full ROM - Abdominal General gastrointestinal: soft, non-tender, non-distended, normal bowel sounds - Integumentary Integumentary: Present: clear, warm, dry - Neurologic Neurologic: CNII-XII intact, moves all extremities HEART Score - HEART Score Troponin: Troponin T < 0.010 ng/mL (0.00-0.029) 10/02/20 23:17 Results - Labs CBC & Chem 7: 10/11/20 05:51 10/11/20 05:51 Labs: Laboratory Last Values WBC 8.4 K/mm3 (4.5-11.0) 10/11/20 05:51 RBC 4.09 M/mm3 (3.65-5.03) 10/11/20 05:51 Hgb 9.5 gm/dl (11.8-15.2) L 10/11/20 05:51 Hct 31.3 % (35.5-45.6) L 10/11/20 05:51 MCV 77 fl (84-94) L 10/11/20 05:51 MCH 23 pg (28-32) L 10/11/20 05:51 MCHC 30 % (32-34) L 10/11/20 05:51 RDW 33.7 % (13.2-15.2) H 10/11/20 05:51 Plt Count 135 K/mm3 (140-440) L 10/10/20 10:58 Lymph % (Auto) [employer] 10/10/20 10:58 [place] % (Auto) [employer] 10/10/20 10:58 Eos % (Auto) [employer] 10/10/20 10:58 Baso % (Auto) [employer] 10/10/20 10:58 Lymph # (Auto) [employer] 10/10/20 10:58 [place] # (Auto) [employer] 10/10/20 10:58 Eos # (Auto) [employer] 10/10/20 10:58 Baso # (Auto) [employer] 10/10/20 10:58 Add Manual Diff Complete 10/10/20 10:58 Total Counted 100 10/10/20 10:58 Seg Neutrophils % [employer] 10/10/20 10:58 Seg Neuts % (Manual) 74.0 % (40.0-70.0) H 10/10/20 10:58 Band Neutrophils % 3.0 % 10/09/20 06:32 Lymphocytes % (Manual) 12.0 % (13.4-35.0) L 10/10/20 10:58 Monocytes % (Manual) 9.0 % (0.0-7.3) H 10/10/20 10:58 Eosinophils % (Manual) 3.0 % (0.0-4.3) 10/10/20 10:58 Basophils % (Manual) 2.0 % (0.0-1.8) H 10/10/20 10:58 Nucleated RBC % Not Reportable 10/10/20 10:58 Seg Neutrophils # [employer] 10/10/20 10:58 Seg Neutrophils # Man 6.0 K/mm3 (1.8-7.7) 10/10/20 10:58 Band Neutrophils # 0.0 K/mm3 10/10/20 10:58 Lymphocytes # (Manual) 1.0 K/mm3 (1.2-5.4) L 10/10/20 10:58 Abs React Lymphs (Man) 0.0 K/mm3 10/10/20 10:58 Monocytes # (Manual) 0.7 K/mm3 (0.0-0.8) 10/10/20 10:58 Eosinophils # (Manual) 0.2 K/mm3 (0.0-0.4) 10/10/20 10:58 Basophils # (Manual) 0.2 K/mm3 (0.0-0.1) H 10/10/20 10:58 Metamyelocytes # 0.0 K/mm3 10/10/20 10:58 Myelocytes # 0.0 K/mm3 10/10/20 10:58 Promyelocytes # 0.0 K/mm3 10/10/20 10:58 Blast Cells # 0.0 K/mm3 10/10/20 10:58 WBC Morphology Not Reportable 10/10/20 10:58 Hypersegmented Neuts Not Reportable 10/10/20 10:58 Hyposegmented Neuts Not Reportable 10/10/20 10:58 Hypogranular Neuts Not Reportable 10/10/20 10:58 Smudge Cells Not Reportable 10/10/20 10:58 Toxic Granulation Not Reportable 10/10/20 10:58 Toxic Vacuolation Not Reportable 10/10/20 10:58 Dohle Bodies Not Reportable 10/10/20 10:58 Pelger-Huet Anomaly Not Reportable 10/10/20 10:58 Andrés Rods Not Reportable 10/10/20 10:58 Platelet Estimate Not Reportable 10/10/20 10:58 Clumped Platelets Not Reportable 10/10/20 10:58 Plt Clumps, EDTA Not Reportable 10/10/20 10:58 Large Platelets Not Reportable 10/10/20 10:58 Giant Platelets Few 10/10/20 10:58 Platelet Satelliting Not Reportable 10/10/20 10:58 Plt Morphology Comment Not Reportable 10/10/20 10:58 RBC Morphology Not Reportable 10/10/20 10:58 Dimorphic RBCs Not Reportable 10/10/20 10:58 Polychromasia Not Reportable 10/10/20 10:58 Hypochromasia 1+ 10/10/20 10:58 Poikilocytosis Not Reportable 10/10/20 10:58 Anisocytosis 3+ 10/10/20 10:58 Microcytosis Not Reportable 10/10/20 10:58 Macrocytosis Not Reportable 10/10/20 10:58 Spherocytes Not Reportable 10/10/20 10:58 Pappenheimer Bodies Not Reportable 10/10/20 10:58 Sickle Cells Not Reportable 10/10/20 10:58 Target Cells 1+ 10/10/20 10:58 Tear Drop Cells Not Reportable 10/10/20 10:58 Ovalocytes Not Reportable 10/10/20 10:58 Helmet Cells Not Reportable 10/10/20 10:58 [place] Bodies Not Reportable 10/10/20 10:58 [place] Rings Not Reportable 10/10/20 10:58 [place] Cells Not Reportable 10/10/20 10:58 Bite Cells Not Reportable 10/10/20 10:58 Crenated Cell Not Reportable 10/10/20 10:58 Elliptocytes Not Reportable 10/10/20 10:58 Acanthocytes (Spur) Not Reportable 10/10/20 10:58 Rouleaux Not Reportable 10/10/20 10:58 Hemoglobin C Crystals Not Reportable 10/10/20 10:58 Schistocytes Not Reportable 10/10/20 10:58 Malaria parasites Not Reportable 10/10/20 10:58 Dereck Bodies Not Reportable 10/10/20 10:58 Hem Pathologist Commnt No 10/10/20 10:58 PT 20.8 Sec. (12.2-14.9) H 10/02/20 23:17 INR 1.74 (0.87-1.13) H 10/02/20 23:17 APTT 57.6 Sec. (24.2-36.6) H 10/02/20 23:17 Thrombin Time 17.8 Sec. (15.1-19.6) 10/02/20 23:17 Sodium 130 mmol/L (137-145) L 10/11/20 05:51 Potassium 4.4 mmol/L (3.6-5.0) 10/11/20 05:51 Chloride 102.3 mmol/L (98-107) 10/11/20 05:51 Carbon Dioxide 18 mmol/L (22-30) L 10/11/20 05:51 Anion Gap 14 mmol/L 10/11/20 05:51 BUN 23 mg/dL (9-20) H 10/11/20 05:51 Creatinine 1.1 mg/dL (0.8-1.3) 10/11/20 05:51 Estimated GFR > 60 ml/min 10/11/20 05:51 BUN/Creatinine Ratio 21 % 10/11/20 05:51 Glucose 92 mg/dL (75-100) 10/11/20 05:51 POC Glucose 124 mg/dL (70-105) H 10/11/20 04:56 Hemoglobin A1c 5.2 % (4-6) 10/03/20 05:57 Osmolality 267 Mosm/kg 10/07/20 13:54 Lactic Acid 1.50 mmol/L (0.7-2.0) 10/03/20 04:43 Calcium 9.1 mg/dL (8.4-10.2) 10/11/20 05:51 Phosphorus 3.00 mg/dL (2.5-4.5) 10/06/20 05:07 Magnesium 1.90 mg/dL (1.7-2.3) 10/06/20 05:07 Iron 42 ug/dL (49-181) L 10/03/20 05:57 TIBC 305 mcg/dL (250-450) 10/03/20 05:57 Total Bilirubin 0.60 mg/dL (0.1-1.2) 10/04/20 05:59 AST 26 units/L (5-40) 10/04/20 05:59 ALT 15 units/L (7-56) 10/04/20 05:59 Alkaline Phosphatase 105 units/L (35-129) 10/04/20 05:59 Ammonia 22.0 umol/L (25-60) L 10/02/20 23:17 Total Creatine Kinase 88 units/L (55-170) 10/02/20 23:17 CK-MB (CK-2) 7.5 ng/mL (0.0-4.0) H 10/02/20 23:17 CK-MB (CK-2) Rel Index 8.5 (0-4) H 10/02/20 23:17 Troponin T < 0.010 ng/mL (0.00-0.029) 10/02/20 23:17 Total Protein 6.4 g/dL (6.3-8.2) 10/04/20 05:59 Albumin 2.6 g/dL (3.9-5) L 10/04/20 05:59 Albumin/Globulin Ratio 0.7 % 10/04/20 05:59 Procalcitonin 0.10 ng/mL (<0.15) 10/10/20 10:58 TSH 2.130 mlU/mL (0.270-4.200) 10/07/20 13:54 Urine Osmolality 223 Mosm/kg 10/07/20 Unknown Urine Sodium 10 mmol/L 10/07/20 Unknown Salicylates < 0.3 mg/dL (2.8-20.0) L 10/02/20 23:17 Acetaminophen 5.0 ug/mL (10.0-30.0) L 10/02/20 23:17 Plasma/Serum Alcohol < 0.01 % (0-0.07) 10/02/20 23:17 Coronavirus (PCR) Negative (Negative) 10/06/20 Unknown Blood Type O POSITIVE 10/03/20 05:57 Antibody Screen Negative 10/03/20 05:57 Crossmatch See Detail 10/03/20 05:57 Microbiology: Microbiology 10/08/20 15:02 Peripheral/Venous Blood Culture - Preliminary NO GROWTH AFTER 48 HOURS 10/08/20 14:35 Peripheral/Venous Blood Culture - Preliminary NO GROWTH AFTER 48 HOURS Jackson/IV: Voiding Method Condom Catheter Active Medications - Current Medications Current Medications: Generic Name Dose Route Start Last Admin Trade Name Freq PRN Reason Stop Dose Admin Acetaminophen 650 mg 10/03/20 02:10 10/06/20 15:28 Acetaminophen 325 Mg Tab PO 650 mg Q4H PRN Administration Pain MILD(1-3)/Fever >100.5/ROMERO Al Hydrox/Mg Hydrox/Simethicone 30 ml 10/03/20 02:10 Alum-Mag Hydroxide-Simethicone [id number]/5ml Oral Liqd 30 Ml PO Q4H PRN Indigestion Lipase/Protease/Amylase 1 each 10/03/20 16:51 Lipase 10,500/Protease 25,000/Amylase 43,750 (Units) Dr Reis FEEDTUBE PRN PRN For Clogged Feeding Tube Dextrose 0 ml 10/02/20 22:49 10/10/20 05:58 Dextrose 50% In Water (25gm) 50 Ml Syringe IV 50 ml Q30MIN PRN Administration Hypoglycemia Protocol Ferrous Sulfate 325 mg 10/03/20 10:00 10/10/20 11:39 Ferrous Sulfate 325 Mg Tab PO Not Given QDAY JOSE Folic Acid 1 mg 10/03/20 10:00 10/10/20 11:39 Folic Acid 1 Mg Tab PO Not Given QDAY JOSE Cefepime HCl 2 gm in 100 mls @ 200 mls/hr 10/08/20 11:00 10/11/20 09:26 Cefepime/Ns 2 Gm/100 Ml IV 200 mls/hr Q8H JOSE Administration Protocol Sodium Chloride 153.8 meq/ 1,038.45 mls @ 100 mls/hr 10/09/20 13:00 10/10/20 21:55 Dextrose IV 100 mls/hr DIRECT JOSE Administration Levetiracetam 250 mg/ Dextrose 102.5 mls @ 400 mls/hr 10/10/20 22:00 10/10/20 23:21 IV 400 mls/hr Q12HR JOSE Administration Sodium Chloride 500 mls @ 999 mls/hr 10/11/20 08:00 Nacl 0.9% 500 Ml IV 10/11/20 14:00 ONCE JOSE Magnesium Hydroxide 30 ml 10/03/20 02:10 Magnesium Hydroxide (Mom) Oral Liqd Udc PO Q4H PRN Constipation Metoclopramide HCl 10 mg 10/03/20 02:10 Metoclopramide 10 Mg/2 Ml Inj IV Q6H PRN Nausea And Vomiting Multivitamins 1 each 10/03/20 10:00 10/10/20 11:39 Multivitamins ,Therapeutic Tab PO Not Given QDAY JOSE Ondansetron HCl 4 mg 10/03/20 02:10 10/07/20 23:19 Ondansetron 4 Mg/2 Ml Inj IV 4 mg Q8H PRN Administration Nausea And Vomiting Oxycodone/Acetaminophen 1 tab 10/03/20 02:10 Oxycodone /Acetaminophen 5-325mg Tab PO Q6H PRN Pain, Moderate (4-6) Pantoprazole Sodium 40 mg 10/04/20 15:00 10/10/20 11:40 Pantoprazole 40 Mg Inj IV 40 mg QDAY JOSE Administration Promethazine HCl 25 mg 10/03/20 02:10 Promethazine 25 Mg Rect Supp [place] Q6H PRN N/V IF NPO AND NO IV ACCESS Senna 8.6 mg 10/03/20 02:10 Sennosides 8.6 Mg Tab PO Q12HR PRN Constipation Simple Syrup 15 ml 10/03/20 16:51 Simple Syrup 15 Ml FEEDTUBE PRN PRN Hypoglycemia Simple Syrup 30 ml 10/03/20 16:51 Simple Syrup 15 Ml FEEDTUBE PRN PRN Hypoglycemia Sodium Bicarbonate 325 mg 10/03/20 16:51 Sodium Bicarbonate 325 Mg Tab FEEDTUBE PRN PRN For Clogged Feeding Tube Sodium Chloride 2 gm 10/09/20 12:00 10/10/20 23:21 Sodium Chloride 1 Gm Tab PO 2 gm TID JOSE Administration Nutrition/Malnutrition Assess - Dietary Evaluation Nutrition/Malnutrition Findings: Nutrition Notes Start: 10/03/20 08:51 Freq: Status: Active Protocol: Document 10/10/20 14:36 (Rec: 10/10/20 14:58 [email or web address]) Nutrition Notes Need for Assessment generated from: MD Order Initial or Follow up Reassessment Current Diagnosis Diabetes Other Pertinent Diagnosis AMS, hypothermia, pneu, anemia , atherosclerotic cerebrovascular disease Current Diet NPO Labs/Tests Na 127 Pertinent Medications Reviewed Height 5 ft 10 in Weight 85 kg [place] Body Weight (kg) 75.45 BMI 26.9 Weight Status Overweight Subjective/Other Information Spoke with RN about TF. Kitchen is now back in stock in [facility] 1.2 and informed RN to start at 15 ml/hr as pt was not recieving any TF. Burn Absent Trauma Absent Minimum of two criteria No #1 Nutrition Diagnosis Swallowing difficulty Diagnosis Progress(for reassessment Continues documentation) Is patient on ventilator? No Is Patient Ambulatory and/or Out of Bed No REE-([facility]-confined to bed) 3989.805 Calculation Used for Recommendations [facility] Additional Notes Protein: (1-1.2g/kg) 84-101g Fluid: 1 ml/kcal Nutrition Intervention Change Diet Order: Start TF Nutrition Support: Jevity 1.2 at 65 ml/hr Flush 50 ml q4h Kcal 1,872 Protein (gm) 87 Fluid (mL) 1,259 Goal #1 Meet at least 75% of protein and energy needs via TF Anticipated Discharge Needs: Jevity 1.2 at 65 ml/hr Flush 50 ml q4h Follow-Up By: 10/12/20 Additional Comments F/u: TF start and tolerance, BG
[2020-10-11] MEDS ORDERED: SODIUM CHLORIDE 0.9% 1000 ML 1,000 ML IV SCH (10:00)
[2020-10-11] MEDS: PANTOPRAZOLE 40 MG INJ IV SCH (10:43)
[2020-10-11] MEDS: FERROUS SULFATE 325 MG TAB PO SCH (10:43)
[2020-10-11] MEDS: FOLIC ACID 1 MG TAB PO SCH (10:43)
[2020-10-11] MEDS: MULTIVITAMINS ,THERAPEUTIC TAB PO SCH (10:43)
[2020-10-11 10:50] LABS: Anisocytosis 3+; Hypochromasia 1+; Total Cells Counted 100
[2020-10-11 10:51] LABS: Burr Cells 3+; Poikilocytosis 3+; Target Cells 1+
--- NOTE | 2020-10-11 10:51 | Progress Note ---
Assessment and Plan Acute encephalopathy hyponatremia Hypothermia, resolved Pulmonary infiltrate in right lung on CXR Atherosclerotic cerebrovascular disease Severe anemia -possible GI bleed Severe protein-calorie malnutrition sodium is trending up will cont to monitor sodium level avoid correction m ore than 8mmol/l in 24 hours Subjective Date of service: 10/11/20 Principal diagnosis: hyponatremia, encephalopathy Interval history: started on TF Objective - Vital Signs Vital signs: Vital Signs - 12hr 10/10/20 10/10/20 10/11/20 23:16 23:55 01:12 Temperature Pulse Rate 50 L 47 L Respiratory 12 12 Rate Blood Pressure 87/68 128/79 Blood Pressure 98/71 [Right] O2 Sat by Pulse 100 100 100 Oximetry 10/11/20 10/11/20 10/11/20 03:00 03:53 08:29 Temperature 98.1 F Pulse Rate 48 L 52 L Respiratory 12 20 Rate Blood Pressure 83/59 123/66 Blood Pressure [Right] O2 Sat by Pulse 97 100 97 Oximetry - Lab 10/11/20 05:51 10/11/20 05:51 Most recent lab results Calcium 9.1 mg/dL (8.4-10.2) 10/11/20 05:51 Phosphorus 3.00 mg/dL (2.5-4.5) 10/06/20 05:07 Magnesium 1.90 mg/dL (1.7-2.3) 10/06/20 05:07 Urine Sodium 10 mmol/L 10/07/20 Unknown Medications & Allergies - Medications Allergies/Adverse Reactions: Allergies No Known Allergies Allergy (Unverified 10/03/20 12:27) Home Medications: Home Medications Medication Instructions Recorded Confirmed Last Taken Type Unobtainable 10/10/20 10/10/20 Unknown History Active Medications: Generic Name Dose Route Start Last Admin Trade Name Freq PRN Reason Stop Dose Admin Acetaminophen 650 mg 10/03/20 02:10 10/06/20 15:28 Acetaminophen 325 Mg Tab PO 650 mg Q4H PRN Administration Pain MILD(1-3)/Fever >100.5/ROMERO Al Hydrox/Mg Hydrox/Simethicone 30 ml 10/03/20 02:10 Alum-Mag Hydroxide-Simethicone [id number]/5ml Oral Liqd 30 Ml PO Q4H PRN Indigestion Lipase/Protease/Amylase 1 each 10/03/20 16:51 Lipase 10,500/Protease 25,000/Amylase 43,750 (Units) Dr Reis FEEDTUBE PRN PRN For Clogged Feeding Tube Dextrose 0 ml 10/02/20 22:49 10/10/20 05:58 Dextrose 50% In Water (25gm) 50 Ml Syringe IV 50 ml Q30MIN PRN Administration Hypoglycemia Protocol Ferrous Sulfate 325 mg 10/03/20 10:00 10/11/20 10:43 Ferrous Sulfate 325 Mg Tab PO 325 mg QDAY JOSE Administration Folic Acid 1 mg 10/03/20 10:00 10/11/20 10:43 Folic Acid 1 Mg Tab PO 1 mg QDAY JOSE Administration Cefepime HCl 2 gm in 100 mls @ 200 mls/hr 10/08/20 11:00 10/11/20 09:26 Cefepime/Ns 2 Gm/100 Ml IV 200 mls/hr Q8H JOSE Administration Protocol Sodium Chloride 153.8 meq/ 1,038.45 mls @ 100 mls/hr 10/09/20 13:00 10/10/20 21:55 Dextrose IV 100 mls/hr DIRECT JOSE Administration Levetiracetam 250 mg/ Dextrose 102.5 mls @ 400 mls/hr 10/10/20 22:00 10/10/20 23:21 IV 400 mls/hr Q12HR JOSE Administration Sodium Chloride 500 mls @ 999 mls/hr 10/11/20 08:00 Nacl 0.9% 500 Ml IV 10/11/20 14:00 ONCE JOSE Sodium Chloride 1,000 mls @ 75 mls/hr 10/11/20 10:00 10/11/20 10:43 Nacl 0.9% 1000 Ml IV 75 mls/hr DIRECT JOSE Administration Magnesium Hydroxide 30 ml 10/03/20 02:10 Magnesium Hydroxide (Mom) Oral Liqd Udc PO Q4H PRN Constipation Metoclopramide HCl 10 mg 10/03/20 02:10 Metoclopramide 10 Mg/2 Ml Inj IV Q6H PRN Nausea And Vomiting Multivitamins 1 each 10/03/20 10:00 10/11/20 10:43 Multivitamins ,Therapeutic Tab PO 1 each QDAY JOSE Administration Ondansetron HCl 4 mg 10/03/20 02:10 10/07/20 23:19 Ondansetron 4 Mg/2 Ml Inj IV 4 mg Q8H PRN Administration Nausea And Vomiting Oxycodone/Acetaminophen 1 tab 10/03/20 02:10 Oxycodone /Acetaminophen 5-325mg Tab PO Q6H PRN Pain, Moderate (4-6) Pantoprazole Sodium 40 mg 10/04/20 15:00 10/11/20 10:43 Pantoprazole 40 Mg Inj IV 40 mg QDAY JOSE Administration Promethazine HCl 25 mg 10/03/20 02:10 Promethazine 25 Mg Rect Supp [place] Q6H PRN N/V IF NPO AND NO IV ACCESS Senna 8.6 mg 10/03/20 02:10 Sennosides 8.6 Mg Tab PO Q12HR PRN Constipation Simple Syrup 15 ml 10/03/20 16:51 Simple Syrup 15 Ml FEEDTUBE PRN PRN Hypoglycemia Simple Syrup 30 ml 10/03/20 16:51 Simple Syrup 15 Ml FEEDTUBE PRN PRN Hypoglycemia Sodium Bicarbonate 325 mg 10/03/20 16:51 Sodium Bicarbonate 325 Mg Tab FEEDTUBE PRN PRN For Clogged Feeding Tube Sodium Chloride 2 gm 10/09/20 12:00 10/10/20 23:21 Sodium Chloride 1 Gm Tab PO 2 gm TID JOSE Administration
[2020-10-11 10:52] LABS: Spherocytes 1+
[2020-10-11 10:53] LABS: Platelet Estimate Consistent w Auto; Tear Drop Cells 1+
[2020-10-11] MEDS: levETIRAcetam 250 MG in DEXTROSE 5% IN WATER 100 ML IV SCH ×2 (10:54→22:04)
[2020-10-11 12:55] LABS: Platelet Count 176 K/mm3 (140-440)
--- NOTE | 2020-10-11 13:48 | Progress Note ---
Assessment and Plan 1. Iron deficient anemia - etiology unclear. Need to exclude GI source of bleeding. Given need for PEG, will evaluate for cause of anemia first. - proceed with EGD/Colon tomorrow, if can get consent from daughter. SMS message sent to her phone [phone], Mignon Singh. 2. 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 - will plan on PEG after clearing anemia. Subjective Date of service: 10/11/20 Principal diagnosis: hyponatremia, encephalopathy Interval history: Pt stable. Getting NGT feedings. Patient does not verbalize and is lethargic. Objective - Constitutional Vitals: Vital Signs - 12hr 10/11/20 10/11/20 10/11/20 03:00 03:53 08:29 Temperature 98.1 F Pulse Rate 48 L 52 L Respiratory 12 20 Rate Blood Pressure 83/59 123/66 O2 Sat by Pulse 97 100 97 Oximetry 10/11/20 11:41 Temperature Pulse Rate Respiratory 21 Rate Blood Pressure O2 Sat by Pulse 100 Oximetry General appearance: Present: no acute distress, other (NG tube in place) - EENT Eyes: PERRL, EOM intact - Respiratory Respiratory effort: normal - Gastrointestinal General gastrointestinal: Present: soft, non-tender - Labs CBC & Chem 7: 10/11/20 05:51 10/11/20 05:51 Labs: Abnormal lab results 10/10/20 10/10/20 10/11/20 Range/Units 10:58 16:51 04:56 Hgb (11.8-15.2) gm/dl Hct (35.5-45.6) % MCV (84-94) fl MCH (28-32) pg MCHC (32-34) % RDW (13.2-15.2) % Plt Count 135 L (140-440) K/mm3 Seg Neuts % (Manual) 74.0 H (40.0-70.0) % Lymphocytes % (Manual) 12.0 L (13.4-35.0) % Monocytes % (Manual) 9.0 H (0.0-7.3) % Basophils % (Manual) 2.0 H (0.0-1.8) % Nucleated RBC % (0.0-0.9) % Seg Neutrophils # Man (1.8-7.7) K/mm3 Lymphocytes # (Manual) 1.0 L (1.2-5.4) K/mm3 Basophils # (Manual) 0.2 H (0.0-0.1) K/mm3 Sodium (137-145) mmol/L Carbon Dioxide (22-30) mmol/L BUN (9-20) mg/dL POC Glucose 142 H 124 H (70-105) mg/dL 10/11/20 10/11/20 10/11/20 Range/Units 05:51 05:51 11:56 Hgb 9.5 L (11.8-15.2) gm/dl Hct 31.3 L (35.5-45.6) % MCV 77 L (84-94) fl MCH 23 L (28-32) pg MCHC 30 L (32-34) % RDW 33.7 H (13.2-15.2) % Plt Count (140-440) K/mm3 Seg Neuts % (Manual) 95.0 H (40.0-70.0) % Lymphocytes % (Manual) 2.0 L (13.4-35.0) % Monocytes % (Manual) (0.0-7.3) % Basophils % (Manual) (0.0-1.8) % Nucleated RBC % 3.0 H (0.0-0.9) % Seg Neutrophils # Man 8.0 H (1.8-7.7) K/mm3 Lymphocytes # (Manual) 0.2 L (1.2-5.4) K/mm3 Basophils # (Manual) (0.0-0.1) K/mm3 Sodium 130 L (137-145) mmol/L Carbon Dioxide 18 L (22-30) mmol/L BUN 23 H (9-20) mg/dL POC Glucose 126 H (70-105) mg/dL Medications & Allergies - Medications Allergies/Adverse Reactions: Allergies No Known Allergies Allergy (Unverified 10/03/20 12:27) Home Medications: Home Medications Medication Instructions Recorded Confirmed Last Taken Type Unobtainable 10/10/20 10/10/20 Unknown History Active Medications: Generic Name Dose Route Start Last Admin Trade Name Freq PRN Reason Stop Dose Admin Acetaminophen 650 mg 10/03/20 02:10 10/06/20 15:28 Acetaminophen 325 Mg Tab PO 650 mg Q4H PRN Administration Pain MILD(1-3)/Fever >100.5/ROMERO Al Hydrox/Mg Hydrox/Simethicone 30 ml 10/03/20 02:10 Alum-Mag Hydroxide-Simethicone [id number]/5ml Oral Liqd 30 Ml PO Q4H PRN Indigestion Lipase/Protease/Amylase 1 each 10/03/20 16:51 Lipase 10,500/Protease 25,000/Amylase 43,750 (Units) Dr Reis FEEDTUBE PRN PRN For Clogged Feeding Tube Dextrose 0 ml 10/02/20 22:49 10/10/20 05:58 Dextrose 50% In Water (25gm) 50 Ml Syringe IV 50 ml Q30MIN PRN Administration Hypoglycemia Protocol Ferrous Sulfate 325 mg 10/03/20 10:00 10/11/20 10:43 Ferrous Sulfate 325 Mg Tab PO 325 mg QDAY JOSE Administration Folic Acid 1 mg 10/03/20 10:00 10/11/20 10:43 Folic Acid 1 Mg Tab PO 1 mg QDAY JOSE Administration Sodium Chloride 153.8 meq/ 1,038.45 mls @ 100 mls/hr 10/09/20 13:00 10/10/20 21:55 Dextrose IV 100 mls/hr DIRECT JOSE Administration Levetiracetam 250 mg/ Dextrose 102.5 mls @ 400 mls/hr 10/10/20 22:00 10/11/20 10:54 IV 400 mls/hr Q12HR JOSE Administration Sodium Chloride 500 mls @ 999 mls/hr 10/11/20 08:00 10/11/20 12:40 Nacl 0.9% 500 Ml IV 10/11/20 14:00 999 mls/hr ONCE JOSE Administration Thiamine HCl 300 mg/ Sodium 53 mls @ 100 mls/hr 10/11/20 14:00 Chloride IV 10/15/20 23:59 QDAY JOSE Magnesium Hydroxide 30 ml 10/03/20 02:10 Magnesium Hydroxide (Mom) Oral Liqd Udc PO Q4H PRN Constipation Metoclopramide HCl 10 mg 10/03/20 02:10 Metoclopramide 10 Mg/2 Ml Inj IV Q6H PRN Nausea And Vomiting Multivitamins 1 each 10/03/20 10:00 10/11/20 10:43 Multivitamins ,Therapeutic Tab PO 1 each QDAY JOSE Administration Ondansetron HCl 4 mg 10/03/20 02:10 10/07/20 23:19 Ondansetron 4 Mg/2 Ml Inj IV 4 mg Q8H PRN Administration Nausea And Vomiting Oxycodone/Acetaminophen 1 tab 10/03/20 02:10 Oxycodone /Acetaminophen 5-325mg Tab PO Q6H PRN Pain, Moderate (4-6) Pantoprazole Sodium 40 mg 10/04/20 15:00 10/11/20 10:43 Pantoprazole 40 Mg Inj IV 40 mg QDAY JOSE Administration Promethazine HCl 25 mg 10/03/20 02:10 Promethazine 25 Mg Rect Supp [place] Q6H PRN N/V IF NPO AND NO IV ACCESS Senna 8.6 mg 10/03/20 02:10 Sennosides 8.6 Mg Tab PO Q12HR PRN Constipation Simple Syrup 15 ml 10/03/20 16:51 Simple Syrup 15 Ml FEEDTUBE PRN PRN Hypoglycemia Simple Syrup 30 ml 10/03/20 16:51 Simple Syrup 15 Ml FEEDTUBE PRN PRN Hypoglycemia Sodium Bicarbonate 325 mg 10/03/20 16:51 Sodium Bicarbonate 325 Mg Tab FEEDTUBE PRN PRN For Clogged Feeding Tube Sodium Chloride 2 gm 10/09/20 12:00 10/10/20 23:21 Sodium Chloride 1 Gm Tab PO 2 gm TID JOSE Administration HEART Score - HEART Score Troponin: Troponin T < 0.010 ng/mL (0.00-0.029) 10/02/20 23:17
--- NOTE | 2020-10-11 13:51 | Progress Note ---
Assessment and Plan Assessment and Plan Assessment and plan: 74 yo man who presented with AMS and left sided weakness. Patient was found by caregiver in his bed incontinent in feces/urine. Assessment and plan: # Acute encephalopathy -CT angio of the head that is a significant narrowing seen in both posterior cerebral arteries - and no signs of large vessel -CT of the head no acute finding but showed a cerebral atrophy with suspicious atrophy and atherosclerotic calcification within the distal right middle cerebral artery. -MRI brain without any acute findings - EEG today remarkable for diffuse slowing 3-4 Hz and with occassional triphasic waves , no epileptiform discharges is noted -- full report to follow -Repeat MRI brain showed no acute finding -Decrease Keppra 250 mg IV bid !!! -will add thiamin 300 mg Daily X3 days -consider LP if no better !!! #Left-sided hemiparesis with significant aphasia Placed on stroke protocol, neurology following, failed swallow eval MRI brain without any new findings, # Hypothermia, resolved Monitor body temperature Applied bed hugger # Pulmonary infiltrate in right lung on CXR COVID-19 test is negative Likely secondary to pneumonia Start empiric antibiotics Rocephin and azithromycin # Atherosclerotic cerebrovascular disease Safety and fall precaution at all times PT OT consult follow-up with recommendation for discharge placement #Severe anemia -possible GI bleed? 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 Order for Dobbhoff tube and Tube feeding #Persistent hypoglycemia, patient placed D10, will also initiate tube feeding # DVT prophylaxis ACD hold Subcutaneous anticoagulant due to low H/H PLAN 1- EEG today noted full report to follow no sign of seizure but diffuse slowing suggestive of encephalopathic process 2-Decrease Keppra 250 mg IV bid 3- Thiamin 300 mg Iv daily 4- started on tube feeding 5- Consider LP if no better by tomorrow over all prognosis is quarded will follow as needed Subjective Date of service: 10/11/20 Principal diagnosis: hyponatremia, encephalopathy Interval history: may be slightly better responds to calling his name but is with slight if any speech out put not follow command move LES to pain stimulation , not upper Objective - Vital Sign Vital Signs - 12hr 10/11/20 10/11/20 10/11/20 03:00 03:53 08:29 Temperature 98.1 F Pulse Rate 48 L 52 L Respiratory 12 20 Rate Blood Pressure 83/59 123/66 O2 Sat by Pulse 97 100 97 Oximetry 10/11/20 11:41 Temperature Pulse Rate Respiratory 21 Rate Blood Pressure O2 Sat by Pulse 100 Oximetry - General Apperance Constitutional: comfortable - EENT EENT: PERRL, mucous membranes moist - Respiratory Respiratory: chest non-tender, rhonchi - Cardiovascular Cardiovascular: regular rate, normal S1, normal S2 Extremities: no peripheral edema bilat - Gastrointestinal Gastrointestinal: normoactive bowel sounds - Integumentary Integumentary: normal - Neurologic Cranial nerve examination: PERRL, EOMI, other (at time deviate to left slight right facial droop ) Detailed motor examination: other (diffuse weakness slight withdraw to stimuli ) - Laboratory Findings CBC and BMP: 10/11/20 05:51 10/11/20 05:51 Abnormal Lab Findings: Abnormal Labs 10/02/20 10/02/20 10/02/20 23:17 23:17 23:17 WBC RBC 3.31 L Hgb 6.7 L Hct 21.8 L MCV 66 L MCH 20 L MCHC 31 L RDW 31.7 H Plt Count Seg Neutrophils % Seg Neuts % (Manual) 79.0 H Lymphocytes % (Manual) 11.0 L Monocytes % (Manual) 10.0 H Basophils % (Manual) Nucleated RBC % Seg Neutrophils # Man Lymphocytes # (Manual) 0.9 L Monocytes # (Manual) Basophils # (Manual) PT 20.8 H INR 1.74 H APTT 57.6 H Sodium Potassium Chloride Carbon Dioxide BUN Creatinine Glucose 42 L POC Glucose Lactic Acid Iron Ammonia CK-MB (CK-2) 7.5 H CK-MB (CK-2) Rel Index 8.5 H Total Protein Albumin 2.9 L Salicylates Acetaminophen Crossmatch 10/02/20 10/02/20 10/02/20 23:17 23:17 23:17 WBC RBC Hgb Hct MCV MCH MCHC RDW Plt Count Seg Neutrophils % Seg Neuts % (Manual) Lymphocytes % (Manual) Monocytes % (Manual) Basophils % (Manual) Nucleated RBC % Seg Neutrophils # Man Lymphocytes # (Manual) Monocytes # (Manual) Basophils # (Manual) PT INR APTT Sodium Potassium Chloride Carbon Dioxide BUN Creatinine Glucose POC Glucose Lactic Acid 2.20 H* Iron Ammonia 22.0 L CK-MB (CK-2) CK-MB (CK-2) Rel Index Total Protein Albumin Salicylates < 0.3 L Acetaminophen Crossmatch 10/02/20 10/03/20 10/03/20 23:17 05:57 05:57 WBC RBC 2.66 L Hgb 5.3 L* Hct 17.8 L* MCV 67 L MCH 20 L MCHC 30 L RDW 32.1 H Plt Count Seg Neutrophils % Seg Neuts % (Manual) Lymphocytes % (Manual) 2.0 L Monocytes % (Manual) Basophils % (Manual) Nucleated RBC % 1.0 H Seg Neutrophils # Man 8.6 H Lymphocytes # (Manual) 0.2 L Monocytes # (Manual) Basophils # (Manual) PT INR APTT Sodium Potassium Chloride Carbon Dioxide BUN Creatinine Glucose POC Glucose Lactic Acid Iron Ammonia CK-MB (CK-2) CK-MB (CK-2) Rel Index Total Protein Albumin Salicylates Acetaminophen 5.0 L Crossmatch See Detail 10/03/20 10/03/20 10/03/20 05:57 05:57 06:00 WBC RBC Hgb Hct MCV MCH MCHC RDW Plt Count Seg Neutrophils % Seg Neuts % (Manual) Lymphocytes % (Manual) Monocytes % (Manual) Basophils % (Manual) Nucleated RBC % Seg Neutrophils # Man Lymphocytes # (Manual) Monocytes # (Manual) Basophils # (Manual) PT INR APTT Sodium Potassium Chloride Carbon Dioxide BUN Creatinine Glucose 52 L POC Glucose 31 L Lactic Acid Iron 42 L Ammonia CK-MB (CK-2) CK-MB (CK-2) Rel Index Total Protein 5.8 L Albumin 3.1 L Salicylates Acetaminophen Crossmatch 10/03/20 10/03/20 10/03/20 07:34 09:43 10:57 WBC RBC Hgb Hct MCV MCH MCHC RDW Plt Count Seg Neutrophils % Seg Neuts % (Manual) Lymphocytes % (Manual) Monocytes % (Manual) Basophils % (Manual) Nucleated RBC % Seg Neutrophils # Man Lymphocytes # (Manual) Monocytes # (Manual) Basophils # (Manual) PT INR APTT Sodium Potassium Chloride Carbon Dioxide BUN Creatinine Glucose POC Glucose 59 L 41 L 31 L Lactic Acid Iron Ammonia CK-MB (CK-2) CK-MB (CK-2) Rel Index Total Protein Albumin Salicylates Acetaminophen Crossmatch 10/03/20 10/03/20 10/03/20 11:21 12:00 12:14 WBC RBC Hgb Hct MCV MCH MCHC RDW Plt Count Seg Neutrophils % Seg Neuts % (Manual) Lymphocytes % (Manual) Monocytes % (Manual) Basophils % (Manual) Nucleated RBC % Seg Neutrophils # Man Lymphocytes # (Manual) Monocytes # (Manual) Basophils # (Manual) PT INR APTT Sodium Potassium Chloride Carbon Dioxide BUN Creatinine Glucose POC Glucose 62 L 26 L 140 H Lactic Acid Iron Ammonia CK-MB (CK-2) CK-MB (CK-2) Rel Index Total Protein Albumin Salicylates Acetaminophen Crossmatch 10/03/20 10/03/20 10/03/20 13:33 14:19 14:59 WBC RBC Hgb Hct MCV MCH MCHC RDW Plt Count Seg Neutrophils % Seg Neuts % (Manual) Lymphocytes % (Manual) Monocytes % (Manual) Basophils % (Manual) Nucleated RBC % Seg Neutrophils # Man Lymphocytes # (Manual) Monocytes # (Manual) Basophils # (Manual) PT INR APTT Sodium Potassium Chloride Carbon Dioxide BUN Creatinine Glucose POC Glucose 24 L 59 L 40 L Lactic Acid Iron Ammonia CK-MB (CK-2) CK-MB (CK-2) Rel Index Total Protein Albumin Salicylates Acetaminophen Crossmatch 10/03/20 10/03/20 10/03/20 15:26 15:57 16:35 WBC RBC Hgb Hct MCV MCH MCHC RDW Plt Count Seg Neutrophils % Seg Neuts % (Manual) Lymphocytes % (Manual) Monocytes % (Manual) Basophils % (Manual) Nucleated RBC % Seg Neutrophils # Man Lymphocytes # (Manual) Monocytes # (Manual) Basophils # (Manual) PT INR APTT Sodium Potassium Chloride Carbon Dioxide BUN Creatinine Glucose POC Glucose 54 L 45 L 42 L Lactic Acid Iron Ammonia CK-MB (CK-2) CK-MB (CK-2) Rel Index Total Protein Albumin Salicylates Acetaminophen Crossmatch 10/03/20 10/03/20 10/03/20 17:16 18:37 19:56 WBC RBC Hgb Hct MCV MCH MCHC RDW Plt Count Seg Neutrophils % Seg Neuts % (Manual) Lymphocytes % (Manual) Monocytes % (Manual) Basophils % (Manual) Nucleated RBC % Seg Neutrophils # Man Lymphocytes # (Manual) Monocytes # (Manual) Basophils # (Manual) PT INR APTT Sodium Potassium Chloride Carbon Dioxide BUN Creatinine Glucose POC Glucose 41 L 46 L 57 L Lactic Acid Iron Ammonia CK-MB (CK-2) CK-MB (CK-2) Rel Index Total Protein Albumin Salicylates Acetaminophen Crossmatch 10/03/20 10/04/20 10/04/20 21:32 01:04 01:11 WBC RBC Hgb 9.6 L D Hct 28.3 L D MCV MCH MCHC RDW Plt Count Seg Neutrophils % Seg Neuts % (Manual) Lymphocytes % (Manual) Monocytes % (Manual) Basophils % (Manual) Nucleated RBC % Seg Neutrophils # Man Lymphocytes # (Manual) Monocytes # (Manual) Basophils # (Manual) PT INR APTT Sodium Potassium Chloride Carbon Dioxide BUN Creatinine Glucose POC Glucose 65 L 51 L Lactic Acid Iron Ammonia CK-MB (CK-2) CK-MB (CK-2) Rel Index Total Protein Albumin Salicylates Acetaminophen Crossmatch 10/04/20 10/04/20 10/04/20 05:59 05:59 15:10 WBC 13.4 H RBC Hgb 9.9 L 10.1 L Hct 32.0 L 31.8 L MCV 76 L MCH 24 L MCHC 31 L RDW 31.3 H Plt Count Seg Neutrophils % Seg Neuts % (Manual) 86.0 H Lymphocytes % (Manual) 6.0 L Monocytes % (Manual) 8.0 H Basophils % (Manual) Nucleated RBC % 2.0 H Seg Neutrophils # Man 11.5 H Lymphocytes # (Manual) 0.8 L Monocytes # (Manual) 1.1 H Basophils # (Manual) PT INR APTT Sodium 136 L Potassium 3.5 L Chloride Carbon Dioxide 19 L D BUN Creatinine Glucose POC Glucose Lactic Acid Iron Ammonia CK-MB (CK-2) CK-MB (CK-2) Rel Index Total Protein Albumin 2.6 L Salicylates Acetaminophen Crossmatch 10/04/20 10/04/20 10/05/20 16:28 22:33 04:43 WBC RBC Hgb 10.5 L Hct 32.5 L MCV MCH MCHC RDW Plt Count Seg Neutrophils % Seg Neuts % (Manual) Lymphocytes % (Manual) Monocytes % (Manual) Basophils % (Manual) Nucleated RBC % Seg Neutrophils # Man Lymphocytes # (Manual) Monocytes # (Manual) Basophils # (Manual) PT INR APTT Sodium Potassium Chloride Carbon Dioxide BUN Creatinine Glucose POC Glucose 66 L 113 H Lactic Acid Iron Ammonia CK-MB (CK-2) CK-MB (CK-2) Rel Index Total Protein Albumin Salicylates Acetaminophen Crossmatch 10/05/20 10/05/20 10/05/20 05:00 09:42 11:57 WBC RBC Hgb 9.8 L Hct 30.5 L MCV 74 L MCH 24 L MCHC RDW 31.6 H Plt Count Seg Neutrophils % Seg Neuts % (Manual) Lymphocytes % (Manual) Monocytes % (Manual) Basophils % (Manual) Nucleated RBC % Seg Neutrophils # Man Lymphocytes # (Manual) Monocytes # (Manual) Basophils # (Manual) PT INR APTT Sodium 132 L Potassium 3.5 L Chloride Carbon Dioxide 19 L BUN Creatinine 0.7 L Glucose POC Glucose 129 H Lactic Acid Iron Ammonia CK-MB (CK-2) CK-MB (CK-2) Rel Index Total Protein Albumin Salicylates Acetaminophen Crossmatch 10/05/20 10/05/20 10/06/20 16:47 21:51 05:07 WBC RBC Hgb 9.4 L Hct 30.1 L MCV 76 L MCH 24 L MCHC 31 L RDW 31.1 H Plt Count Seg Neutrophils % Seg Neuts % (Manual) Lymphocytes % (Manual) Monocytes % (Manual) Basophils % (Manual) Nucleated RBC % Seg Neutrophils # Man Lymphocytes # (Manual) Monocytes # (Manual) Basophils # (Manual) PT INR APTT Sodium Potassium Chloride Carbon Dioxide BUN Creatinine Glucose POC Glucose 132 H 115 H Lactic Acid Iron Ammonia CK-MB (CK-2) CK-MB (CK-2) Rel Index Total Protein Albumin Salicylates Acetaminophen Crossmatch 10/06/20 10/06/20 10/06/20 05:07 15:37 21:01 WBC RBC Hgb Hct MCV MCH MCHC RDW Plt Count Seg Neutrophils % Seg Neuts % (Manual) Lymphocytes % (Manual) Monocytes % (Manual) Basophils % (Manual) Nucleated RBC % Seg Neutrophils # Man Lymphocytes # (Manual) Monocytes # (Manual) Basophils # (Manual) PT INR APTT Sodium 133 L Potassium 3.5 L Chloride Carbon Dioxide 21 L BUN Creatinine 0.6 L Glucose 105 H POC Glucose 136 H 108 H Lactic Acid Iron Ammonia CK-MB (CK-2) CK-MB (CK-2) Rel Index Total Protein Albumin Salicylates Acetaminophen Crossmatch 10/07/20 10/07/20 10/07/20 04:52 04:52 06:07 WBC RBC Hgb 9.6 L Hct 29.4 L MCV 73 L MCH 24 L MCHC RDW 32.2 H Plt Count Seg Neutrophils % Seg Neuts % (Manual) Lymphocytes % (Manual) Monocytes % (Manual) Basophils % (Manual) Nucleated RBC % Seg Neutrophils # Man Lymphocytes # (Manual) Monocytes # (Manual) Basophils # (Manual) PT INR APTT Sodium 128 L Potassium Chloride Carbon Dioxide 20 L BUN Creatinine 0.7 L Glucose POC Glucose 110 H Lactic Acid Iron Ammonia CK-MB (CK-2) CK-MB (CK-2) Rel Index Total Protein Albumin Salicylates Acetaminophen Crossmatch 10/07/20 10/07/20 10/07/20 17:09 18:53 20:35 WBC RBC Hgb Hct MCV MCH MCHC RDW Plt Count Seg Neutrophils % Seg Neuts % (Manual) Lymphocytes % (Manual) Monocytes % (Manual) Basophils % (Manual) Nucleated RBC % Seg Neutrophils # Man Lymphocytes # (Manual) Monocytes # (Manual) Basophils # (Manual) PT INR APTT Sodium Potassium Chloride Carbon Dioxide BUN Creatinine Glucose POC Glucose 67 L 66 L 62 L Lactic Acid Iron Ammonia CK-MB (CK-2) CK-MB (CK-2) Rel Index Total Protein Albumin Salicylates Acetaminophen Crossmatch 10/07/20 10/08/20 10/08/20 21:55 05:00 05:00 WBC RBC Hgb 9.6 L Hct 29.4 L MCV 73 L MCH 24 L MCHC RDW 32.4 H Plt Count Seg Neutrophils % 80.6 H Seg Neuts % (Manual) 88.0 H Lymphocytes % (Manual) 9.0 L Monocytes % (Manual) Basophils % (Manual) Nucleated RBC % 5.0 H Seg Neutrophils # Man Lymphocytes # (Manual) 0.5 L Monocytes # (Manual) Basophils # (Manual) PT INR APTT Sodium 126 L Potassium Chloride 96.3 L Carbon Dioxide BUN Creatinine 0.7 L Glucose POC Glucose 132 H Lactic Acid Iron Ammonia CK-MB (CK-2) CK-MB (CK-2) Rel Index Total Protein Albumin Salicylates Acetaminophen Crossmatch 10/08/20 10/09/20 10/09/20 22:26 01:36 02:22 WBC RBC Hgb Hct MCV MCH MCHC RDW Plt Count Seg Neutrophils % Seg Neuts % (Manual) Lymphocytes % (Manual) Monocytes % (Manual) Basophils % (Manual) Nucleated RBC % Seg Neutrophils # Man Lymphocytes # (Manual) Monocytes # (Manual) Basophils # (Manual) PT INR APTT Sodium Potassium Chloride Carbon Dioxide BUN Creatinine Glucose POC Glucose 63 L 62 L 151 H Lactic Acid Iron Ammonia CK-MB (CK-2) CK-MB (CK-2) Rel Index Total Protein Albumin Salicylates Acetaminophen Crossmatch 10/09/20 10/09/20 10/09/20 05:07 05:42 06:32 WBC RBC Hgb 10.3 L Hct 33.8 L MCV 77 L MCH 24 L MCHC 31 L RDW 33.6 H Plt Count 137 L Seg Neutrophils % Seg Neuts % (Manual) 89.0 H Lymphocytes % (Manual) 5.0 L Monocytes % (Manual) Basophils % (Manual) Nucleated RBC % 4.0 H Seg Neutrophils # Man 9.4 H Lymphocytes # (Manual) 0.5 L Monocytes # (Manual) Basophils # (Manual) PT INR APTT Sodium 126 L Potassium Chloride 97.8 L Carbon Dioxide 20 L BUN Creatinine Glucose 58 L POC Glucose 48 L Lactic Acid Iron Ammonia CK-MB (CK-2) CK-MB (CK-2) Rel Index Total Protein Albumin Salicylates Acetaminophen Crossmatch 10/09/20 10/10/20 10/10/20 06:35 00:21 05:53 WBC RBC Hgb Hct MCV MCH MCHC RDW Plt Count Seg Neutrophils % Seg Neuts % (Manual) Lymphocytes % (Manual) Monocytes % (Manual) Basophils % (Manual) Nucleated RBC % Seg Neutrophils # Man Lymphocytes # (Manual) Monocytes # (Manual) Basophils # (Manual) PT INR APTT Sodium Potassium Chloride Carbon Dioxide BUN Creatinine Glucose POC Glucose 106 H 153 H 34 L Lactic Acid Iron Ammonia CK-MB (CK-2) CK-MB (CK-2) Rel Index Total Protein Albumin Salicylates Acetaminophen Crossmatch 10/10/20 10/10/20 10/10/20 10:58 10:58 12:39 WBC RBC Hgb 10.3 L Hct 33.9 L MCV 78 L MCH 24 L MCHC 30 L RDW 33.2 H Plt Count 135 L Seg Neutrophils % Seg Neuts % (Manual) 74.0 H Lymphocytes % (Manual) 12.0 L Monocytes % (Manual) 9.0 H Basophils % (Manual) 2.0 H Nucleated RBC % Seg Neutrophils # Man Lymphocytes # (Manual) 1.0 L Monocytes # (Manual) Basophils # (Manual) 0.2 H PT INR APTT Sodium 127 L Potassium Chloride Carbon Dioxide 20 L BUN 23 H Creatinine Glucose POC Glucose 108 H Lactic Acid Iron Ammonia CK-MB (CK-2) CK-MB (CK-2) Rel Index Total Protein Albumin Salicylates Acetaminophen Crossmatch 10/10/20 10/11/20 10/11/20 16:51 04:56 05:51 WBC RBC Hgb 9.5 L Hct 31.3 L MCV 77 L MCH 23 L MCHC 30 L RDW 33.7 H Plt Count Seg Neutrophils % Seg Neuts % (Manual) 95.0 H Lymphocytes % (Manual) 2.0 L Monocytes % (Manual) Basophils % (Manual) Nucleated RBC % 3.0 H Seg Neutrophils # Man 8.0 H Lymphocytes # (Manual) 0.2 L Monocytes # (Manual) Basophils # (Manual) PT INR APTT Sodium Potassium Chloride Carbon Dioxide BUN Creatinine Glucose POC Glucose 142 H 124 H Lactic Acid Iron Ammonia CK-MB (CK-2) CK-MB (CK-2) Rel Index Total Protein Albumin Salicylates Acetaminophen Crossmatch 10/11/20 10/11/20 05:51 11:56 WBC RBC Hgb Hct MCV MCH MCHC RDW Plt Count Seg Neutrophils % Seg Neuts % (Manual) Lymphocytes % (Manual) Monocytes % (Manual) Basophils % (Manual) Nucleated RBC % Seg Neutrophils # Man Lymphocytes # (Manual) Monocytes # (Manual) Basophils # (Manual) PT INR APTT Sodium 130 L Potassium Chloride Carbon Dioxide 18 L BUN 23 H Creatinine Glucose POC Glucose 126 H Lactic Acid Iron Ammonia CK-MB (CK-2) CK-MB (CK-2) Rel Index Total Protein Albumin Salicylates Acetaminophen Crossmatch
[2020-10-11] MEDS: THIAMINE 300 MG in SODIUM CHLORIDE 0.9% 50 ML IV SCH (15:24)
--- NOTE | 2020-10-11 16:39 | Progress Note ---
Assessment and Plan Cultures: Blood culture 10/02/2020 no growth 10/08/2020 pending Covid PCR: Negative A/P: 68-year-old man past medical history hypertension admitted with acute encephalopathy. #Acute encephalopathy: possible secondary to neurological issue. MRI normal, however residual left sided weakness. #Bilateral pneumonia: infiltrates seen on CXR, however patient afebrile, normal white count, not requiring oxygen. COVID negative x2 #Left sided weakness Recs: -Procalcitonin normal. Stop antibiotics. Thank you for the consult, we will sign off. Please call with questions. Khanh Tanner MD [facility] ([facility]) O: [phone] F: [phone] Subjective Date of service: 10/11/20 Principal diagnosis: hyponatremia, encephalopathy Interval history: Afebrile, normal white count. Cultures all negative. Objective - Exam Narrative Exam: Physical Exam: Constitutional: Confused Head, Ears, Nose: Normocephalic, atraumatic. External ears, nose normal Eyes: Conjunctivae/corneas clear. No icterus. No ptosis. Neck: Supple, no meningeal signs Oral: dentition fair, no thrush Cardiovascular: S1, S2 normal. Respiratory: Good air entry, clear to auscultation bilaterally GI: Soft, non-tender; bowel sounds normal. No peritoneal signs. Musculoskeletal: No pedal edema, no cyanosis. Skin: No rash or abscess Hem/Lymphatic: No palpable cervical or supraclavicular nodes. No lymphangitis Psych: Encephalopathic Neurological: Encephalopathic - Constitutional Vitals: Vital Signs Temp Pulse Resp BP Pulse Ox 98.1 F 58 L 21 102/71 100 10/11/20 08:29 10/11/20 14:57 10/11/20 11:41 10/11/20 14:57 10/11/20 11:41 Temperature -Last 24 Hours Temperature 98.1 F - Labs CBC & Chem 7: 10/11/20 05:51 10/11/20 05:51 Labs: Abnormal lab results 10/10/20 10/10/20 10/11/20 Range/Units 10:58 16:51 04:56 Hgb (11.8-15.2) gm/dl Hct (35.5-45.6) % MCV (84-94) fl MCH (28-32) pg MCHC (32-34) % RDW (13.2-15.2) % Plt Count 135 L (140-440) K/mm3 Seg Neuts % (Manual) 74.0 H (40.0-70.0) % Lymphocytes % (Manual) 12.0 L (13.4-35.0) % Monocytes % (Manual) 9.0 H (0.0-7.3) % Basophils % (Manual) 2.0 H (0.0-1.8) % Nucleated RBC % (0.0-0.9) % Seg Neutrophils # Man (1.8-7.7) K/mm3 Lymphocytes # (Manual) 1.0 L (1.2-5.4) K/mm3 Basophils # (Manual) 0.2 H (0.0-0.1) K/mm3 Sodium (137-145) mmol/L Carbon Dioxide (22-30) mmol/L BUN (9-20) mg/dL POC Glucose 142 H 124 H (70-105) mg/dL 10/11/20 10/11/20 10/11/20 Range/Units 05:51 05:51 11:56 Hgb 9.5 L (11.8-15.2) gm/dl Hct 31.3 L (35.5-45.6) % MCV 77 L (84-94) fl MCH 23 L (28-32) pg MCHC 30 L (32-34) % RDW 33.7 H (13.2-15.2) % Plt Count (140-440) K/mm3 Seg Neuts % (Manual) 95.0 H (40.0-70.0) % Lymphocytes % (Manual) 2.0 L (13.4-35.0) % Monocytes % (Manual) (0.0-7.3) % Basophils % (Manual) (0.0-1.8) % Nucleated RBC % 3.0 H (0.0-0.9) % Seg Neutrophils # Man 8.0 H (1.8-7.7) K/mm3 Lymphocytes # (Manual) 0.2 L (1.2-5.4) K/mm3 Basophils # (Manual) (0.0-0.1) K/mm3 Sodium 130 L (137-145) mmol/L Carbon Dioxide 18 L (22-30) mmol/L BUN 23 H (9-20) mg/dL POC Glucose 126 H (70-105) mg/dL
[2020-10-11] MEDS ORDERED: POLYETHYLENE GLYCOL/ELECT SOLN 4000 ML NGTUBE NR (17:00)
[2020-10-12] MEDS: SODIUM CHLORIDE IV SCH (02:56)
[2020-10-12] MEDS: WATER IV SCH (02:56)
[2020-10-12] MEDS: DEXTROSE 10% IV SCH (02:56)
[2020-10-12 06:14] LABS: Hemoglobin 9.5 gm/dl (11.8-15.2); Mean Corpuscular HGB Conc 32 % (32-34); Mean Corpuscular Volume 75 fl (84-94); Red Blood Count 4.02 M/mm3 (3.65-5.03)
[2020-10-12 06:32] LABS: Red Cell Distribution Width 32.8 % (13.2-15.2)
[2020-10-12 07:58] LABS: BUN/Creatinine Ratio 21; Blood Urea Nitrogen 25 mg/dL (9-20); Calcium 9.1 mg/dL (8.4-10.2); Hemolysis Index 10
--- NOTE | 2020-10-12 08:39 | Progress Note ---
Assessment and Plan Assessment and plan: -- Acute encephalopathy CT angio of the head that is a significant narrowing seen in both posterior cere bral arteries and no signs of large vessel CT of the head no acute finding but showed a cerebral atrophy with suspicious atrophy and atherosclerotic calcification within the distal right middle cereb ral artery. MRI brain without any acute findings Neurology consulted, will follow EEG -cannot r/o acute seizure with postictal state --Left-sided hemiparesis with significant aphasia Placed on stroke protocol, neurology following, failed swallow eval MRI brain without any new findings, EEG ordered and pending Aspirin due to severe anemia, will initiate Lipitor when able to tolerate tube feeding -- Hypothermia, resolved Monitor body temperature Applied bed hugger -- Pulmonary infiltrate in right lung on CXR COVID-19 test is negative Likely secondary to pneumonia Start empiric antibiotics Rocephin and azithromycin -- Atherosclerotic cerebrovascular disease Safety and fall precaution at all times PT OT consult follow-up with recommendation for discharge placement --Severe anemia -possible GI bleed? 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 Patient also noted with hemoglobin of 5.8, received 1 unit of packed RBC and ordered for tomorrow Neuro is consulted, Covid test is negative We will check stool for occult blood MRI brain ordered we will follow Will hold any oral medicine until cleared by speech or passes the bedside swallow eval Patient noted to have severe hypoglycemic, will place on D10W Follow H&H and BMP Continue current management plan as dictated in the HPI 10/04/20: no acute findings in MRI, pending EEG, s/p 3 units PRBC transfusion. follow speech eval, TF for now, h/h stable, GI consulted - follow recommendation. 10/05/20 Patient with acute encephalopathy, severe anemia s/p PRBC transfusion. GI following. Hgb 9.8 today. Will repeat in am. Left sided weakness. MRI negative for stroke. Neurology following. 10/06/20 Patient with encephalopathy, severe anemia s/p PRBC transfusion. Hgb 9.4 today. Patient has left sided weakness but MRI neg. Patient needs PEG tube. Will talk with family. Hypokalemia. Replace Q6h X 2. Check Mg 10/07/20 Patient with encephalopathy, severe anemia s/p PRBC transfusion. Hgb 9.6 today. Patient has left sided weakness but MRI neg. Patient needs PEG tube. Will talk with family. Hyponatremia of 128. This may be due to D10% he was on prior to NG tube. Stopped 10% Dextrose. Consulted Nephrology 10/08/20 Patient with encephalopathy, severe anemia s/p PRBC transfusion. Hgb 9.6 today. Patient has left sided weakness but MRI neg. Patient needs PEG tube. Hyponatremia worse today 126. This is due to D10% resumed last night because of hypoglycemia. I discussed with Dr. Herrera. Stop 10%Dextrose. Start D5NS Spoke to daughter, Cindy Singh, yesterday and gave update. She wants PEG tube placed. Discussed plan with PAKO Chambers. He wants to do upper and lower endoscopy to evaluate anemia, before PEG tube 10/09/20 Patient with encephalopathy, severe anemia s/p PRBC transfusion. Hgb 10.3 today. Patient has left sided weakness but MRI neg. Patient needs PEG tube. Hyponatremia still present Na 126 today. This is due to D10% resumed again last night because of hypoglycemia. Nephrology had recommended D5NS but 10% Dextrose restarted overnight because of hypoglycemia. Nurses unable to place NG tube. I discussed with Dr. Otero today and he will do. Spoke to daughter, Cindy Singh, yesterday and gave update. She wants PEG tube placed. Discussed plan with PAKO Chambers. He wants to do upper and lower endoscopy to evaluate anemia, before PEG tube Today Na still 126. I discussed with Dr. Herrera and he recommended D10NS. I called Pharmacy. They will mix special D10NS drip. Patient had bilateral pneumonia on CXR therefore started iv Antibiotics, blood cultures. yesterday. Consulted ID 10/10/2020. Patient remains encephalopathic with hemoglobin stabilizing yesterday. Recheck H&H. Patient with left-sided weakness but MRI negative. Fluoroscopic NG tube placement completed yesterday. Await GI to perform EGD and colonoscopy. Follow-up hyponatremia with BMP results. Dr. Aldrich Spoke to daughter, Cindy Singh, and gave update. Daughter wants PEG tube placed. Continue IV antibiotics for bilateral pneumonia. ID consulted. Follow-up procalcitonin levels. 10/11/2020. Patient's hemoglobin remained stable today at 9.5. However, patient noted to be hypotensive with systolic blood pressure of 83. Patient received NS 250 cc bolus with improvement of blood pressure systolically to 123. GI plans to perform EGD/colonoscopy tomorrow. Hyponatremia improving. Start IV fluid of normal saline at 75 cc an hour x1 L 10/12/2020. Patient noted to have some gurgling of the upper airway. NG tube was placed to low intermittent suction. Check chest x-ray and KUB to rule out aspiration and/or ileus. Continue to monitor. H/H remained stable. ID stopped antibiotics due to normal procalcitonin. Speech evaluation History Interval history: Patient noted to have some gurgling of the upper airway. Patient is somnolent and confused. Hospitalist Physical - Constitutional Vitals: Temp Pulse Resp BP Pulse Ox 93.0 F L 89 18 121/64 100 10/12/20 03:44 10/12/20 03:44 10/12/20 05:00 10/12/20 03:44 10/12/20 05:00 General appearance: Present: mild distress, other (NG tube in place) - EENT Eyes: Present: PERRL, EOM intact ENT: hearing intact, clear oral mucosa, dentition normal - Neck Neck: Present: supple, normal ROM - Respiratory Respiratory effort: normal Respiratory: bilateral: CTA - Cardiovascular Rhythm: regular Heart Sounds: Present: S1 & S2. Absent: gallop, rub - Extremities Extremities: no ischemia, No edema, Full ROM - Abdominal General gastrointestinal: soft, non-tender, non-distended, normal bowel sounds - Integumentary Integumentary: Present: clear, warm, dry - Neurologic Neurologic: CNII-XII intact, moves all extremities HEART Score - HEART Score Troponin: Troponin T < 0.010 ng/mL (0.00-0.029) 10/02/20 23:17 Results - Labs CBC & Chem 7: 10/12/20 04:53 10/12/20 04:53 Labs: Laboratory Last Values WBC 8.1 K/mm3 (4.5-11.0) 10/12/20 04:53 RBC 4.02 M/mm3 (3.65-5.03) 10/12/20 04:53 Hgb 9.5 gm/dl (11.8-15.2) L 10/12/20 04:53 Hct 30.0 % (35.5-45.6) L 10/12/20 04:53 MCV 75 fl (84-94) L 10/12/20 04:53 MCH 24 pg (28-32) L 10/12/20 04:53 MCHC 32 % (32-34) 10/12/20 04:53 RDW 32.8 % (13.2-15.2) H 10/12/20 04:53 Plt Count 176 K/mm3 (140-440) 10/11/20 05:51 Lymph % (Auto) Second Floor Operator 10/10/20 10:58 [place] % (Auto) Second Floor Operator 10/10/20 10:58 Eos % (Auto) Second Floor Operator 10/10/20 10:58 Baso % (Auto) Second Floor Operator 10/10/20 10:58 Lymph # (Auto) Second Floor Operator 10/10/20 10:58 [place] # (Auto) Second Floor Operator 10/10/20 10:58 Eos # (Auto) Second Floor Operator 10/10/20 10:58 Baso # (Auto) Second Floor Operator 10/10/20 10:58 Add Manual Diff Complete 10/11/20 05:51 Total Counted 100 10/11/20 05:51 Seg Neutrophils % Second Floor Operator 10/10/20 10:58 Seg Neuts % (Manual) 95.0 % (40.0-70.0) H 10/11/20 05:51 Band Neutrophils % 3.0 % 10/09/20 06:32 Lymphocytes % (Manual) 2.0 % (13.4-35.0) L 10/11/20 05:51 Monocytes % (Manual) 3.0 % (0.0-7.3) 10/11/20 05:51 Eosinophils % (Manual) 3.0 % (0.0-4.3) 10/10/20 10:58 Basophils % (Manual) 2.0 % (0.0-1.8) H 10/10/20 10:58 Nucleated RBC % 3.0 % (0.0-0.9) H 10/11/20 05:51 Seg Neutrophils # Second Floor Operator 10/10/20 10:58 Seg Neutrophils # Man 8.0 K/mm3 (1.8-7.7) H 10/11/20 05:51 Band Neutrophils # 0.0 K/mm3 10/11/20 05:51 Lymphocytes # (Manual) 0.2 K/mm3 (1.2-5.4) L 10/11/20 05:51 Abs React Lymphs (Man) 0.0 K/mm3 10/11/20 05:51 Monocytes # (Manual) 0.3 K/mm3 (0.0-0.8) 10/11/20 05:51 Eosinophils # (Manual) 0.0 K/mm3 (0.0-0.4) 10/11/20 05:51 Basophils # (Manual) 0.0 K/mm3 (0.0-0.1) 10/11/20 05:51 Metamyelocytes # 0.0 K/mm3 10/11/20 05:51 Myelocytes # 0.0 K/mm3 10/11/20 05:51 Promyelocytes # 0.0 K/mm3 10/11/20 05:51 Blast Cells # 0.0 K/mm3 10/11/20 05:51 WBC Morphology Not Reportable 10/11/20 05:51 Hypersegmented Neuts Not Reportable 10/11/20 05:51 Hyposegmented Neuts Not Reportable 10/11/20 05:51 Hypogranular Neuts Not Reportable 10/11/20 05:51 Smudge Cells Not Reportable 10/11/20 05:51 Toxic Granulation Not Reportable 10/11/20 05:51 Toxic Vacuolation Not Reportable 10/11/20 05:51 Dohle Bodies Not Reportable 10/11/20 05:51 Pelger-Huet Anomaly Not Reportable 10/11/20 05:51 Andrés Rods Not Reportable 10/11/20 05:51 Platelet Estimate Consistent w auto 10/11/20 05:51 Clumped Platelets Not Reportable 10/11/20 05:51 Plt Clumps, EDTA Not Reportable 10/11/20 05:51 Large Platelets Not Reportable 10/11/20 05:51 Giant Platelets Not Reportable 10/11/20 05:51 Platelet Satelliting Not Reportable 10/11/20 05:51 Plt Morphology Comment Not Reportable 10/11/20 05:51 RBC Morphology Not Reportable 10/11/20 05:51 Dimorphic RBCs Not Reportable 10/11/20 05:51 Polychromasia Not Reportable 10/11/20 05:51 Hypochromasia 1+ 10/11/20 05:51 Poikilocytosis 3+ 10/11/20 05:51 Anisocytosis 3+ 10/11/20 05:51 Microcytosis Not Reportable 10/11/20 05:51 Macrocytosis Not Reportable 10/11/20 05:51 Spherocytes 1+ 10/11/20 05:51 Pappenheimer Bodies Not Reportable 10/11/20 05:51 Sickle Cells Not Reportable 10/11/20 05:51 Target Cells 1+ 10/11/20 05:51 Tear Drop Cells 1+ 10/11/20 05:51 Ovalocytes Not Reportable 10/11/20 05:51 Helmet Cells Not Reportable 10/11/20 05:51 [place] Bodies Not Reportable 10/11/20 05:51 [place] Rings Not Reportable 10/11/20 05:51 [place] Cells 3+ 10/11/20 05:51 Bite Cells Not Reportable 10/11/20 05:51 Crenated Cell Not Reportable 10/11/20 05:51 Elliptocytes Not Reportable 10/11/20 05:51 Acanthocytes (Spur) 1+ 10/11/20 05:51 Rouleaux Not Reportable 10/11/20 05:51 Hemoglobin C Crystals Not Reportable 10/11/20 05:51 Schistocytes Not Reportable 10/11/20 05:51 Malaria parasites Not Reportable 10/11/20 05:51 Dereck Bodies Not Reportable 10/11/20 05:51 Hem Pathologist Commnt No 10/11/20 05:51 PT 20.8 Sec. (12.2-14.9) H 10/02/20 23:17 INR 1.74 (0.87-1.13) H 10/02/20 23:17 APTT 57.6 Sec. (24.2-36.6) H 10/02/20 23:17 Thrombin Time 17.8 Sec. (15.1-19.6) 10/02/20 23:17 Sodium 130 mmol/L (137-145) L 10/12/20 04:53 Potassium 4.8 mmol/L (3.6-5.0) 10/12/20 04:53 Chloride 104.8 mmol/L (98-107) 10/12/20 04:53 Carbon Dioxide 18 mmol/L (22-30) L 10/12/20 04:53 Anion Gap 12 mmol/L 10/12/20 04:53 BUN 25 mg/dL (9-20) H 10/12/20 04:53 Creatinine 1.2 mg/dL (0.8-1.3) 10/12/20 04:53 Estimated GFR > 60 ml/min 10/12/20 04:53 BUN/Creatinine Ratio 21 % 10/12/20 04:53 Glucose 74 mg/dL (75-100) L 10/12/20 04:53 POC Glucose 71 mg/dL (70-105) 10/12/20 04:50 Hemoglobin A1c 5.2 % (4-6) 10/03/20 05:57 Osmolality 267 Mosm/kg 10/07/20 13:54 Lactic Acid 1.50 mmol/L (0.7-2.0) 10/03/20 04:43 Calcium 9.1 mg/dL (8.4-10.2) 10/12/20 04:53 Phosphorus 3.00 mg/dL (2.5-4.5) 10/06/20 05:07 Magnesium 1.90 mg/dL (1.7-2.3) 10/06/20 05:07 Iron 42 ug/dL (49-181) L 10/03/20 05:57 TIBC 305 mcg/dL (250-450) 10/03/20 05:57 Total Bilirubin 0.60 mg/dL (0.1-1.2) 10/04/20 05:59 AST 26 units/L (5-40) 10/04/20 05:59 ALT 15 units/L (7-56) 10/04/20 05:59 Alkaline Phosphatase 105 units/L (35-129) 10/04/20 05:59 Ammonia 22.0 umol/L (25-60) L 10/02/20 23:17 Total Creatine Kinase 88 units/L (55-170) 10/02/20 23:17 CK-MB (CK-2) 7.5 ng/mL (0.0-4.0) H 10/02/20 23:17 CK-MB (CK-2) Rel Index 8.5 (0-4) H 10/02/20 23:17 Troponin T < 0.010 ng/mL (0.00-0.029) 10/02/20 23:17 Total Protein 6.4 g/dL (6.3-8.2) 10/04/20 05:59 Albumin 2.6 g/dL (3.9-5) L 10/04/20 05:59 Albumin/Globulin Ratio 0.7 % 10/04/20 05:59 Procalcitonin 0.10 ng/mL (<0.15) 10/10/20 10:58 TSH 2.130 mlU/mL (0.270-4.200) 10/07/20 13:54 Total Cortisol 17.4 mcg/dL () 10/09/20 02:46 Urine Osmolality 223 Mosm/kg 10/07/20 Unknown Urine Sodium 10 mmol/L 10/07/20 Unknown Salicylates < 0.3 mg/dL (2.8-20.0) L 10/02/20 23:17 Acetaminophen 5.0 ug/mL (10.0-30.0) L 10/02/20 23:17 Plasma/Serum Alcohol < 0.01 % (0-0.07) 10/02/20 23:17 Coronavirus (PCR) Negative (Negative) 10/06/20 Unknown Blood Type O POSITIVE 10/03/20 05:57 Antibody Screen Negative 10/03/20 05:57 Crossmatch See Detail 10/03/20 05:57 Microbiology: Microbiology 10/08/20 15:02 Peripheral/Venous Blood Culture - Preliminary NO GROWTH AFTER 72 HOURS 10/08/20 14:35 Peripheral/Venous Blood Culture - Preliminary NO GROWTH AFTER 72 HOURS Jackson/IV: Voiding Method Condom Catheter Active Medications - Current Medications Current Medications: Generic Name Dose Route Start Last Admin Trade Name Freq PRN Reason Stop Dose Admin Acetaminophen 650 mg 10/03/20 02:10 10/06/20 15:28 Acetaminophen 325 Mg Tab PO 650 mg Q4H PRN Administration Pain MILD(1-3)/Fever >100.5/ROMERO Al Hydrox/Mg Hydrox/Simethicone 30 ml 10/03/20 02:10 Alum-Mag Hydroxide-Simethicone [phone]/5ml Oral Liqd 30 Ml PO Q4H PRN Indigestion Lipase/Protease/Amylase 1 each 10/03/20 16:51 Lipase 10,500/Protease 25,000/Amylase 43,750 (Units) Dr Reis FEEDTUBE PRN PRN For Clogged Feeding Tube Dextrose 0 ml 10/02/20 22:49 10/10/20 05:58 Dextrose 50% In Water (25gm) 50 Ml Syringe IV 50 ml Q30MIN PRN Administration Hypoglycemia Protocol Ferrous Sulfate 325 mg 10/03/20 10:00 10/11/20 10:43 Ferrous Sulfate 325 Mg Tab PO 325 mg QDAY JOSE Administration Folic Acid 1 mg 10/03/20 10:00 10/11/20 10:43 Folic Acid 1 Mg Tab PO 1 mg QDAY JOSE Administration Sodium Chloride 153.8 meq/ 1,038.45 mls @ 100 mls/hr 10/09/20 13:00 10/12/20 02:56 Dextrose IV 100 mls/hr DIRECT JOSE Administration Levetiracetam 250 mg/ Dextrose 102.5 mls @ 400 mls/hr 10/10/20 22:00 10/11/20 22:04 IV 400 mls/hr Q12HR JOSE Administration Thiamine HCl 300 mg/ Sodium 53 mls @ 100 mls/hr 10/11/20 14:00 10/11/20 15:24 Chloride IV 10/15/20 23:59 100 mls/hr QDAY JOSE Administration Magnesium Hydroxide 30 ml 10/03/20 02:10 Magnesium Hydroxide (Mom) Oral Liqd Udc PO Q4H PRN Constipation Metoclopramide HCl 10 mg 10/03/20 02:10 Metoclopramide 10 Mg/2 Ml Inj IV Q6H PRN Nausea And Vomiting Multivitamins 1 each 10/03/20 10:00 10/11/20 10:43 Multivitamins ,Therapeutic Tab PO 1 each QDAY JOSE Administration Ondansetron HCl 4 mg 10/03/20 02:10 10/07/20 23:19 Ondansetron 4 Mg/2 Ml Inj IV 4 mg Q8H PRN Administration Nausea And Vomiting Oxycodone/Acetaminophen 1 tab 10/03/20 02:10 Oxycodone /Acetaminophen 5-325mg Tab PO Q6H PRN Pain, Moderate (4-6) Pantoprazole Sodium 40 mg 10/04/20 15:00 10/11/20 10:43 Pantoprazole 40 Mg Inj IV 40 mg QDAY JOSE Administration Promethazine HCl 25 mg 10/03/20 02:10 Promethazine 25 Mg Rect Supp NH Q6H PRN N/V IF NPO AND NO IV ACCESS Senna 8.6 mg 10/03/20 02:10 Sennosides 8.6 Mg Tab PO Q12HR PRN Constipation Simple Syrup 15 ml 10/03/20 16:51 Simple Syrup 15 Ml FEEDTUBE PRN PRN Hypoglycemia Simple Syrup 30 ml 10/03/20 16:51 Simple Syrup 15 Ml FEEDTUBE PRN PRN Hypoglycemia Sodium Bicarbonate 325 mg 10/03/20 16:51 Sodium Bicarbonate 325 Mg Tab FEEDTUBE PRN PRN For Clogged Feeding Tube Sodium Chloride 2 gm 10/09/20 12:00 10/11/20 22:06 Sodium Chloride 1 Gm Tab PO 2 gm TID JOSE Administration Nutrition/Malnutrition Assess - Dietary Evaluation Nutrition/Malnutrition Findings: Nutrition Notes Start: 10/03/20 08:51 Freq: Status: Active Protocol: Document 10/10/20 14:36 (Rec: 10/10/20 14:58 [id number]) Nutrition Notes Need for Assessment generated from: MD Order Initial or Follow up Reassessment Current Diagnosis Diabetes Other Pertinent Diagnosis AMS, hypothermia, pneu, anemia , atherosclerotic cerebrovascular disease Current Diet NPO Labs/Tests Na 127 Pertinent Medications Reviewed Height 5 ft 10 in Weight 85 kg Gunpowder Body Weight (kg) 75.45 BMI 26.9 Weight Status Overweight Subjective/Other Information Spoke with RN about TF. Kitchen is now back in stock in [facility] 1.2 and informed RN to start at 15 ml/hr as pt was not recieving any TF. Burn Absent Trauma Absent Minimum of two criteria No #1 Nutrition Diagnosis Swallowing difficulty Diagnosis Progress(for reassessment Continues documentation) Is patient on ventilator? No Is Patient Ambulatory and/or Out of Bed No REE-([facility]-confined to bed) [phone] Calculation Used for Recommendations [facility] Additional Notes Protein: (1-1.2g/kg) 84-101g Fluid: 1 ml/kcal Nutrition Intervention Change Diet Order: Start TF Nutrition Support: Jevity 1.2 at 65 ml/hr Flush 50 ml q4h Kcal 1,872 Protein (gm) 87 Fluid (mL) 1,259 Goal #1 Meet at least 75% of protein and energy needs via TF Anticipated Discharge Needs: Jevity 1.2 at 65 ml/hr Flush 50 ml q4h Follow-Up By: 10/12/20 Additional Comments F/u: TF start and tolerance, BG
[2020-10-12] MEDS: SODIUM CHLORIDE 1 GM TAB PO SCH ×3 (08:56→19:55)
--- NOTE | 2020-10-12 10:57 | XRay Report ---
CHEST 1 VIEW INDICATION: kim/resp distress. COMPARISON: 10/08/2020 FINDINGS: Support devices: The feeding tube has been removed. Nasogastric tube is present which is followed to the fundus of the stomach but the distal tip is not included on the [id number]. Heart: Stable borderline heart size. Lungs/Pleura: Small bilateral pleural effusions have developed. Bibasilar airspace opacities appear s lightly increased since the previous exam. The upper lung zones remain clear. No pneumothorax. Additional findings: None. IMPRESSION: Increased bibasilar infiltrates. New small bilateral pleural effusions. Signer Name: Diego Edmonds Jr, MD Signed: 10/12/2020 10:49 AM Workstation Name: [id number]
[2020-10-12] MEDS: FERROUS SULFATE 325 MG TAB PO SCH (11:00)
[2020-10-12] MEDS: FOLIC ACID 1 MG TAB PO SCH (11:00)
[2020-10-12] MEDS: MULTIVITAMINS ,THERAPEUTIC TAB PO SCH (11:03)
[2020-10-12] MEDS: levETIRAcetam 250 MG in DEXTROSE 5% IN WATER 100 ML IV SCH ×2 (11:03→21:40)
[2020-10-12] MEDS: PANTOPRAZOLE 40 MG INJ IV SCH (11:03)
[2020-10-12] MEDS: THIAMINE 300 MG in SODIUM CHLORIDE 0.9% 50 ML IV SCH (11:17)
--- NOTE | 2020-10-12 11:34 | Progress Note ---
Assessment and Plan 1. Iron deficient anemia - etiology unclear. Would like to exclude GI source of bleeding. Given need for PEG, would want to evaluate for cause of anemia first. - procedure cancelled. -have asked daughter to come see patient, and ascertain goals of care. If needed will try and do procedures once ensure that medically stable. -phone [phone], Mignon Singh. 2. 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 - will plan on PEG after clearing anemia if appropriate. Subjective Date of service: 10/12/20 Principal diagnosis: hyponatremia, encephalopathy Interval history: Pt did not get much prep overnight due to concerns about aspiration and br eathing. Has gurgling upper airway sounds. Not responsive to voice. Objective - Constitutional Vitals: Vital Signs - 12hr 10/11/20 10/12/20 10/12/20 23:36 02:00 03:44 Temperature 93.0 F L Pulse Rate 48 L 66 89 Respiratory 20 19 Rate Blood Pressure 144/58 121/64 O2 Sat by Pulse 99 64 L Oximetry 10/12/20 10/12/20 05:00 08:27 Temperature 98.6 F Pulse Rate 144 H Respiratory 18 18 Rate Blood Pressure 106/77 O2 Sat by Pulse 100 100 Oximetry General appearance: Present: other (Unresponsive, gurgling upper airway sounds) - EENT Eyes: PERRL - Respiratory Respiratory effort: other (Gurgling) Respiratory: bilateral: rales (few crackles anteriorly) - Cardiovascular Rhythm: regular Heart Sounds: Present: S1 & S2 - Gastrointestinal General gastrointestinal: Present: soft, non-tender - Labs CBC & Chem 7: 10/12/20 04:53 10/12/20 04:53 Labs: Abnormal lab results 10/11/20 10/12/20 10/12/20 Range/Units 11:56 04:53 04:53 Hgb 9.5 L (11.8-15.2) gm/dl Hct 30.0 L (35.5-45.6) % MCV 75 L (84-94) fl MCH 24 L (28-32) pg RDW 32.8 H (13.2-15.2) % Sodium 130 L (137-145) mmol/L Carbon Dioxide 18 L (22-30) mmol/L BUN 25 H (9-20) mg/dL Glucose 74 L (75-100) mg/dL POC Glucose 126 H (70-105) mg/dL Medications & Allergies - Medications Allergies/Adverse Reactions: Allergies No Known Allergies Allergy (Unverified 10/03/20 12:27) Home Medications: Home Medications Medication Instructions Recorded Confirmed Last Taken Type Unobtainable 10/10/20 10/10/20 Unknown History Active Medications: Generic Name Dose Route Start Last Admin Trade Name Freq PRN Reason Stop Dose Admin Acetaminophen 650 mg 10/03/20 02:10 10/06/20 15:28 Acetaminophen 325 Mg Tab PO 650 mg Q4H PRN Administration Pain MILD(1-3)/Fever >100.5/ROMERO Al Hydrox/Mg Hydrox/Simethicone 30 ml 10/03/20 02:10 Alum-Mag Hydroxide-Simethicone [id number]/5ml Oral Liqd 30 Ml PO Q4H PRN Indigestion Lipase/Protease/Amylase 1 each 10/03/20 16:51 Lipase 10,500/Protease 25,000/Amylase 43,750 (Units) Dr Reis FEEDTUBE PRN PRN For Clogged Feeding Tube Dextrose 0 ml 10/02/20 22:49 10/10/20 05:58 Dextrose 50% In Water (25gm) 50 Ml Syringe IV 50 ml Q30MIN PRN Administration Hypoglycemia Protocol Ferrous Sulfate 325 mg 10/03/20 10:00 10/12/20 11:00 Ferrous Sulfate 325 Mg Tab PO Not Given QDAY JOSE Folic Acid 1 mg 10/03/20 10:00 10/12/20 11:00 Folic Acid 1 Mg Tab PO Not Given QDAY JOSE Sodium Chloride 153.8 meq/ 1,038.45 mls @ 100 mls/hr 10/09/20 13:00 10/12/20 02:56 Dextrose IV 100 mls/hr DIRECT JOSE Administration Levetiracetam 250 mg/ Dextrose 102.5 mls @ 400 mls/hr 10/10/20 22:00 10/12/20 11:03 IV 400 mls/hr Q12HR JOSE Administration Thiamine HCl 300 mg/ Sodium 53 mls @ 100 mls/hr 10/11/20 14:00 10/12/20 11:17 Chloride IV 10/15/20 23:59 100 mls/hr QDAY JOSE Administration Magnesium Hydroxide 30 ml 10/03/20 02:10 Magnesium Hydroxide (Mom) Oral Liqd Udc PO Q4H PRN Constipation Metoclopramide HCl 10 mg 10/03/20 02:10 Metoclopramide 10 Mg/2 Ml Inj IV Q6H PRN Nausea And Vomiting Multivitamins 1 each 10/03/20 10:00 10/12/20 11:03 Multivitamins ,Therapeutic Tab PO Not Given QDAY [facility] Ondansetron HCl 4 mg 10/03/20 02:10 10/07/20 23:19 Ondansetron 4 Mg/2 Ml Inj IV 4 mg Q8H PRN Administration Nausea And Vomiting Oxycodone/Acetaminophen 1 tab 10/03/20 02:10 Oxycodone /Acetaminophen 5-325mg Tab PO Q6H PRN Pain, Moderate (4-6) Pantoprazole Sodium 40 mg 10/04/20 15:00 10/12/20 11:03 Pantoprazole 40 Mg Inj IV 40 mg QDAY [facility] Administration Promethazine HCl 25 mg 10/03/20 02:10 Promethazine 25 Mg Rect Supp IL Q6H PRN N/V IF NPO AND NO IV ACCESS Senna 8.6 mg 10/03/20 02:10 Sennosides 8.6 Mg Tab PO Q12HR PRN Constipation Simple Syrup 15 ml 10/03/20 16:51 Simple Syrup 15 Ml FEEDTUBE PRN PRN Hypoglycemia Simple Syrup 30 ml 10/03/20 16:51 Simple Syrup 15 Ml FEEDTUBE PRN PRN Hypoglycemia Sodium Bicarbonate 325 mg 10/03/20 16:51 Sodium Bicarbonate 325 Mg Tab FEEDTUBE PRN PRN For Clogged Feeding Tube Sodium Chloride 2 gm 10/09/20 12:00 10/12/20 08:56 Sodium Chloride 1 Gm Tab PO Not Given TID [facility] HEART Score - HEART Score Troponin: Troponin T < 0.010 ng/mL (0.00-0.029) 10/02/20 23:17
[2020-10-12] MEDS: DEXTROSE 50% IN WATER (25GM) 50 ML SYRINGE IV PRN (11:49)
--- NOTE | 2020-10-12 13:43 | Progress Note ---
Assessment and Plan Assessment and Plan Assessment and plan: 74 yo man who presented with AMS and left sided weakness. Patient was found by caregiver in his bed incontinent in feces/urine. Assessment and plan: # Acute encephalopathy -CT angio of the head that is a significant narrowing seen in both posterior cerebral arteries - and no signs of large vessel -CT of the head no acute finding but showed a cerebral atrophy with suspicious atrophy and atherosclerotic calcification within the distal right middle cerebral artery. -MRI brain without any acute findings - EEG today remarkable for diffuse slowing 3-4 Hz and with occassional triphasic waves , no epileptiform discharges is noted -- full report to follow -Repeat MRI brain showed no acute finding -Decrease Keppra 250 mg IV bid !!! -will add thiamin 300 mg Daily X3 days -No LP for now due to lack of any inflammatory findings +++ Will repeat EEG #Left-sided hemiparesis with significant aphasia Placed on stroke protocol, neurology following, failed swallow eval # Hypothermia, resolved Monitor body temperature Applied bed hugger # Pulmonary infiltrate in right lung on CXR COVID-19 test is negative Likely secondary to pneumonia Start empiric antibiotics Rocephin and azithromycin # Atherosclerotic cerebrovascular disease Safety and fall precaution at all times PT OT consult follow-up with recommendation for discharge placement #Severe anemia -possible GI bleed? 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 Order for Dobbhoff tube and Tube feeding #Persistent hypoglycemia, patient placed D10, will also initiate tube feeding # DVT prophylaxis ACD hold Subcutaneous anticoagulant due to low H/H PLAN 1- EEG today repeat 2-Decrease Keppra 250 mg IV bid 3- Thiamin 300 mg Iv daily X3 days 4- started on tube feeding 5- NO LP for now ,there is no convincing evidences to suggest infection over all prognosis is quarded will follow as needed Subjective Date of service: 10/12/20 Principal diagnosis: hyponatremia, encephalopathy Interval history: may be slightly better responds to calling his name but is with slight if any speech out put not follow command move LES to pain stimulation , not upper extremities difficulty with speech and swallowing Objective - Vital Sign Vital Signs - 12hr 10/12/20 10/12/20 10/12/20 02:00 03:44 05:00 Temperature 93.0 F L Pulse Rate 66 89 Respiratory 19 18 Rate Blood Pressure 121/64 O2 Sat by Pulse 64 L 100 Oximetry 10/12/20 10/12/20 08:27 11:56 Temperature 98.6 F 98.0 F Pulse Rate 144 H 146 H Respiratory 18 20 Rate Blood Pressure 106/77 134/89 O2 Sat by Pulse 100 96 Oximetry - General Apperance Constitutional: uncomfortable - EENT EENT: PERRL, mucous membranes moist - Respiratory Respiratory: chest non-tender, rhonchi - Cardiovascular Cardiovascular: regular rate, normal S1, normal S2 Extremities: no peripheral edema bilat, no clubbing, cyanosis - Gastrointestinal Gastrointestinal: normoactive bowel sounds - Integumentary Integumentary: normal - Neurologic Cranial nerve examination: PERRL, EOMI, other (slight right facial droop ) Detailed motor examination: other (no movment to pain stimuli, difffuse truncal regidity) - Laboratory Findings CBC and BMP: 10/12/20 04:53 10/12/20 04:53 Abnormal Lab Findings: Abnormal Labs 10/02/20 10/02/20 10/02/20 23:17 23:17 23:17 WBC RBC 3.31 L Hgb 6.7 L Hct 21.8 L MCV 66 L MCH 20 L MCHC 31 L RDW 31.7 H Plt Count Seg Neutrophils % Seg Neuts % (Manual) 79.0 H Lymphocytes % (Manual) 11.0 L Monocytes % (Manual) 10.0 H Basophils % (Manual) Nucleated RBC % Seg Neutrophils # Man Lymphocytes # (Manual) 0.9 L Monocytes # (Manual) Basophils # (Manual) PT 20.8 H INR 1.74 H APTT 57.6 H Sodium Potassium Chloride Carbon Dioxide BUN Creatinine Glucose 42 L POC Glucose Lactic Acid Iron Ammonia CK-MB (CK-2) 7.5 H CK-MB (CK-2) Rel Index 8.5 H Total Protein Albumin 2.9 L Salicylates Acetaminophen Crossmatch 10/02/20 10/02/20 10/02/20 23:17 23:17 23:17 WBC RBC Hgb Hct MCV MCH MCHC RDW Plt Count Seg Neutrophils % Seg Neuts % (Manual) Lymphocytes % (Manual) Monocytes % (Manual) Basophils % (Manual) Nucleated RBC % Seg Neutrophils # Man Lymphocytes # (Manual) Monocytes # (Manual) Basophils # (Manual) PT INR APTT Sodium Potassium Chloride Carbon Dioxide BUN Creatinine Glucose POC Glucose Lactic Acid 2.20 H* Iron Ammonia 22.0 L CK-MB (CK-2) CK-MB (CK-2) Rel Index Total Protein Albumin Salicylates < 0.3 L Acetaminophen Crossmatch 10/02/20 10/03/20 10/03/20 23:17 05:57 05:57 WBC RBC 2.66 L Hgb 5.3 L* Hct 17.8 L* MCV 67 L MCH 20 L MCHC 30 L RDW 32.1 H Plt Count Seg Neutrophils % Seg Neuts % (Manual) Lymphocytes % (Manual) 2.0 L Monocytes % (Manual) Basophils % (Manual) Nucleated RBC % 1.0 H Seg Neutrophils # Man 8.6 H Lymphocytes # (Manual) 0.2 L Monocytes # (Manual) Basophils # (Manual) PT INR APTT Sodium Potassium Chloride Carbon Dioxide BUN Creatinine Glucose POC Glucose Lactic Acid Iron Ammonia CK-MB (CK-2) CK-MB (CK-2) Rel Index Total Protein Albumin Salicylates Acetaminophen 5.0 L Crossmatch See Detail 10/03/20 10/03/20 10/03/20 05:57 05:57 06:00 WBC RBC Hgb Hct MCV MCH MCHC RDW Plt Count Seg Neutrophils % Seg Neuts % (Manual) Lymphocytes % (Manual) Monocytes % (Manual) Basophils % (Manual) Nucleated RBC % Seg Neutrophils # Man Lymphocytes # (Manual) Monocytes # (Manual) Basophils # (Manual) PT INR APTT Sodium Potassium Chloride Carbon Dioxide BUN Creatinine Glucose 52 L POC Glucose 31 L Lactic Acid Iron 42 L Ammonia CK-MB (CK-2) CK-MB (CK-2) Rel Index Total Protein 5.8 L Albumin 3.1 L Salicylates Acetaminophen Crossmatch 10/03/20 10/03/20 10/03/20 07:34 09:43 10:57 WBC RBC Hgb Hct MCV MCH MCHC RDW Plt Count Seg Neutrophils % Seg Neuts % (Manual) Lymphocytes % (Manual) Monocytes % (Manual) Basophils % (Manual) Nucleated RBC % Seg Neutrophils # Man Lymphocytes # (Manual) Monocytes # (Manual) Basophils # (Manual) PT INR APTT Sodium Potassium Chloride Carbon Dioxide BUN Creatinine Glucose POC Glucose 59 L 41 L 31 L Lactic Acid Iron Ammonia CK-MB (CK-2) CK-MB (CK-2) Rel Index Total Protein Albumin Salicylates Acetaminophen Crossmatch 10/03/20 10/03/20 10/03/20 11:21 12:00 12:14 WBC RBC Hgb Hct MCV MCH MCHC RDW Plt Count Seg Neutrophils % Seg Neuts % (Manual) Lymphocytes % (Manual) Monocytes % (Manual) Basophils % (Manual) Nucleated RBC % Seg Neutrophils # Man Lymphocytes # (Manual) Monocytes # (Manual) Basophils # (Manual) PT INR APTT Sodium Potassium Chloride Carbon Dioxide BUN Creatinine Glucose POC Glucose 62 L 26 L 140 H Lactic Acid Iron Ammonia CK-MB (CK-2) CK-MB (CK-2) Rel Index Total Protein Albumin Salicylates Acetaminophen Crossmatch 10/03/20 10/03/20 10/03/20 13:33 14:19 14:59 WBC RBC Hgb Hct MCV MCH MCHC RDW Plt Count Seg Neutrophils % Seg Neuts % (Manual) Lymphocytes % (Manual) Monocytes % (Manual) Basophils % (Manual) Nucleated RBC % Seg Neutrophils # Man Lymphocytes # (Manual) Monocytes # (Manual) Basophils # (Manual) PT INR APTT Sodium Potassium Chloride Carbon Dioxide BUN Creatinine Glucose POC Glucose 24 L 59 L 40 L Lactic Acid Iron Ammonia CK-MB (CK-2) CK-MB (CK-2) Rel Index Total Protein Albumin Salicylates Acetaminophen Crossmatch 10/03/20 10/03/20 10/03/20 15:26 15:57 16:35 WBC RBC Hgb Hct MCV MCH MCHC RDW Plt Count Seg Neutrophils % Seg Neuts % (Manual) Lymphocytes % (Manual) Monocytes % (Manual) Basophils % (Manual) Nucleated RBC % Seg Neutrophils # Man Lymphocytes # (Manual) Monocytes # (Manual) Basophils # (Manual) PT INR APTT Sodium Potassium Chloride Carbon Dioxide BUN Creatinine Glucose POC Glucose 54 L 45 L 42 L Lactic Acid Iron Ammonia CK-MB (CK-2) CK-MB (CK-2) Rel Index Total Protein Albumin Salicylates Acetaminophen Crossmatch 10/03/20 10/03/20 10/03/20 17:16 18:37 19:56 WBC RBC Hgb Hct MCV MCH MCHC RDW Plt Count Seg Neutrophils % Seg Neuts % (Manual) Lymphocytes % (Manual) Monocytes % (Manual) Basophils % (Manual) Nucleated RBC % Seg Neutrophils # Man Lymphocytes # (Manual) Monocytes # (Manual) Basophils # (Manual) PT INR APTT Sodium Potassium Chloride Carbon Dioxide BUN Creatinine Glucose POC Glucose 41 L 46 L 57 L Lactic Acid Iron Ammonia CK-MB (CK-2) CK-MB (CK-2) Rel Index Total Protein Albumin Salicylates Acetaminophen Crossmatch 10/03/20 10/04/20 10/04/20 21:32 01:04 01:11 WBC RBC Hgb 9.6 L D Hct 28.3 L D MCV MCH MCHC RDW Plt Count Seg Neutrophils % Seg Neuts % (Manual) Lymphocytes % (Manual) Monocytes % (Manual) Basophils % (Manual) Nucleated RBC % Seg Neutrophils # Man Lymphocytes # (Manual) Monocytes # (Manual) Basophils # (Manual) PT INR APTT Sodium Potassium Chloride Carbon Dioxide BUN Creatinine Glucose POC Glucose 65 L 51 L Lactic Acid Iron Ammonia CK-MB (CK-2) CK-MB (CK-2) Rel Index Total Protein Albumin Salicylates Acetaminophen Crossmatch 10/04/20 10/04/20 10/04/20 05:59 05:59 15:10 WBC 13.4 H RBC Hgb 9.9 L 10.1 L Hct 32.0 L 31.8 L MCV 76 L MCH 24 L MCHC 31 L RDW 31.3 H Plt Count Seg Neutrophils % Seg Neuts % (Manual) 86.0 H Lymphocytes % (Manual) 6.0 L Monocytes % (Manual) 8.0 H Basophils % (Manual) Nucleated RBC % 2.0 H Seg Neutrophils # Man 11.5 H Lymphocytes # (Manual) 0.8 L Monocytes # (Manual) 1.1 H Basophils # (Manual) PT INR APTT Sodium 136 L Potassium 3.5 L Chloride Carbon Dioxide 19 L D BUN Creatinine Glucose POC Glucose Lactic Acid Iron Ammonia CK-MB (CK-2) CK-MB (CK-2) Rel Index Total Protein Albumin 2.6 L Salicylates Acetaminophen Crossmatch 10/04/20 10/04/20 10/05/20 16:28 22:33 04:43 WBC RBC Hgb 10.5 L Hct 32.5 L MCV MCH MCHC RDW Plt Count Seg Neutrophils % Seg Neuts % (Manual) Lymphocytes % (Manual) Monocytes % (Manual) Basophils % (Manual) Nucleated RBC % Seg Neutrophils # Man Lymphocytes # (Manual) Monocytes # (Manual) Basophils # (Manual) PT INR APTT Sodium Potassium Chloride Carbon Dioxide BUN Creatinine Glucose POC Glucose 66 L 113 H Lactic Acid Iron Ammonia CK-MB (CK-2) CK-MB (CK-2) Rel Index Total Protein Albumin Salicylates Acetaminophen Crossmatch 10/05/20 10/05/20 10/05/20 05:00 09:42 11:57 WBC RBC Hgb 9.8 L Hct 30.5 L MCV 74 L MCH 24 L MCHC RDW 31.6 H Plt Count Seg Neutrophils % Seg Neuts % (Manual) Lymphocytes % (Manual) Monocytes % (Manual) Basophils % (Manual) Nucleated RBC % Seg Neutrophils # Man Lymphocytes # (Manual) Monocytes # (Manual) Basophils # (Manual) PT INR APTT Sodium 132 L Potassium 3.5 L Chloride Carbon Dioxide 19 L BUN Creatinine 0.7 L Glucose POC Glucose 129 H Lactic Acid Iron Ammonia CK-MB (CK-2) CK-MB (CK-2) Rel Index Total Protein Albumin Salicylates Acetaminophen Crossmatch 10/05/20 10/05/20 10/06/20 16:47 21:51 05:07 WBC RBC Hgb 9.4 L Hct 30.1 L MCV 76 L MCH 24 L MCHC 31 L RDW 31.1 H Plt Count Seg Neutrophils % Seg Neuts % (Manual) Lymphocytes % (Manual) Monocytes % (Manual) Basophils % (Manual) Nucleated RBC % Seg Neutrophils # Man Lymphocytes # (Manual) Monocytes # (Manual) Basophils # (Manual) PT INR APTT Sodium Potassium Chloride Carbon Dioxide BUN Creatinine Glucose POC Glucose 132 H 115 H Lactic Acid Iron Ammonia CK-MB (CK-2) CK-MB (CK-2) Rel Index Total Protein Albumin Salicylates Acetaminophen Crossmatch 10/06/20 10/06/20 10/06/20 05:07 15:37 21:01 WBC RBC Hgb Hct MCV MCH MCHC RDW Plt Count Seg Neutrophils % Seg Neuts % (Manual) Lymphocytes % (Manual) Monocytes % (Manual) Basophils % (Manual) Nucleated RBC % Seg Neutrophils # Man Lymphocytes # (Manual) Monocytes # (Manual) Basophils # (Manual) PT INR APTT Sodium 133 L Potassium 3.5 L Chloride Carbon Dioxide 21 L BUN Creatinine 0.6 L Glucose 105 H POC Glucose 136 H 108 H Lactic Acid Iron Ammonia CK-MB (CK-2) CK-MB (CK-2) Rel Index Total Protein Albumin Salicylates Acetaminophen Crossmatch 10/07/20 10/07/20 10/07/20 04:52 04:52 06:07 WBC RBC Hgb 9.6 L Hct 29.4 L MCV 73 L MCH 24 L MCHC RDW 32.2 H Plt Count Seg Neutrophils % Seg Neuts % (Manual) Lymphocytes % (Manual) Monocytes % (Manual) Basophils % (Manual) Nucleated RBC % Seg Neutrophils # Man Lymphocytes # (Manual) Monocytes # (Manual) Basophils # (Manual) PT INR APTT Sodium 128 L Potassium Chloride Carbon Dioxide 20 L BUN Creatinine 0.7 L Glucose POC Glucose 110 H Lactic Acid Iron Ammonia CK-MB (CK-2) CK-MB (CK-2) Rel Index Total Protein Albumin Salicylates Acetaminophen Crossmatch 10/07/20 10/07/20 10/07/20 17:09 18:53 20:35 WBC RBC Hgb Hct MCV MCH MCHC RDW Plt Count Seg Neutrophils % Seg Neuts % (Manual) Lymphocytes % (Manual) Monocytes % (Manual) Basophils % (Manual) Nucleated RBC % Seg Neutrophils # Man Lymphocytes # (Manual) Monocytes # (Manual) Basophils # (Manual) PT INR APTT Sodium Potassium Chloride Carbon Dioxide BUN Creatinine Glucose POC Glucose 67 L 66 L 62 L Lactic Acid Iron Ammonia CK-MB (CK-2) CK-MB (CK-2) Rel Index Total Protein Albumin Salicylates Acetaminophen Crossmatch 10/07/20 10/08/20 10/08/20 21:55 05:00 05:00 WBC RBC Hgb 9.6 L Hct 29.4 L MCV 73 L MCH 24 L MCHC RDW 32.4 H Plt Count Seg Neutrophils % 80.6 H Seg Neuts % (Manual) 88.0 H Lymphocytes % (Manual) 9.0 L Monocytes % (Manual) Basophils % (Manual) Nucleated RBC % 5.0 H Seg Neutrophils # Man Lymphocytes # (Manual) 0.5 L Monocytes # (Manual) Basophils # (Manual) PT INR APTT Sodium 126 L Potassium Chloride 96.3 L Carbon Dioxide BUN Creatinine 0.7 L Glucose POC Glucose 132 H Lactic Acid Iron Ammonia CK-MB (CK-2) CK-MB (CK-2) Rel Index Total Protein Albumin Salicylates Acetaminophen Crossmatch 10/08/20 10/09/20 10/09/20 22:26 01:36 02:22 WBC RBC Hgb Hct MCV MCH MCHC RDW Plt Count Seg Neutrophils % Seg Neuts % (Manual) Lymphocytes % (Manual) Monocytes % (Manual) Basophils % (Manual) Nucleated RBC % Seg Neutrophils # Man Lymphocytes # (Manual) Monocytes # (Manual) Basophils # (Manual) PT INR APTT Sodium Potassium Chloride Carbon Dioxide BUN Creatinine Glucose POC Glucose 63 L 62 L 151 H Lactic Acid Iron Ammonia CK-MB (CK-2) CK-MB (CK-2) Rel Index Total Protein Albumin Salicylates Acetaminophen Crossmatch 10/09/20 10/09/20 10/09/20 05:07 05:42 06:32 WBC RBC Hgb 10.3 L Hct 33.8 L MCV 77 L MCH 24 L MCHC 31 L RDW 33.6 H Plt Count 137 L Seg Neutrophils % Seg Neuts % (Manual) 89.0 H Lymphocytes % (Manual) 5.0 L Monocytes % (Manual) Basophils % (Manual) Nucleated RBC % 4.0 H Seg Neutrophils # Man 9.4 H Lymphocytes # (Manual) 0.5 L Monocytes # (Manual) Basophils # (Manual) PT INR APTT Sodium 126 L Potassium Chloride 97.8 L Carbon Dioxide 20 L BUN Creatinine Glucose 58 L POC Glucose 48 L Lactic Acid Iron Ammonia CK-MB (CK-2) CK-MB (CK-2) Rel Index Total Protein Albumin Salicylates Acetaminophen Crossmatch 10/09/20 10/10/20 10/10/20 06:35 00:21 05:53 WBC RBC Hgb Hct MCV MCH MCHC RDW Plt Count Seg Neutrophils % Seg Neuts % (Manual) Lymphocytes % (Manual) Monocytes % (Manual) Basophils % (Manual) Nucleated RBC % Seg Neutrophils # Man Lymphocytes # (Manual) Monocytes # (Manual) Basophils # (Manual) PT INR APTT Sodium Potassium Chloride Carbon Dioxide BUN Creatinine Glucose POC Glucose 106 H 153 H 34 L Lactic Acid Iron Ammonia CK-MB (CK-2) CK-MB (CK-2) Rel Index Total Protein Albumin Salicylates Acetaminophen Crossmatch 10/10/20 10/10/20 10/10/20 10:58 10:58 12:39 WBC RBC Hgb 10.3 L Hct 33.9 L MCV 78 L MCH 24 L MCHC 30 L RDW 33.2 H Plt Count 135 L Seg Neutrophils % Seg Neuts % (Manual) 74.0 H Lymphocytes % (Manual) 12.0 L Monocytes % (Manual) 9.0 H Basophils % (Manual) 2.0 H Nucleated RBC % Seg Neutrophils # Man Lymphocytes # (Manual) 1.0 L Monocytes # (Manual) Basophils # (Manual) 0.2 H PT INR APTT Sodium 127 L Potassium Chloride Carbon Dioxide 20 L BUN 23 H Creatinine Glucose POC Glucose 108 H Lactic Acid Iron Ammonia CK-MB (CK-2) CK-MB (CK-2) Rel Index Total Protein Albumin Salicylates Acetaminophen Crossmatch 10/10/20 10/11/20 10/11/20 16:51 04:56 05:51 WBC RBC Hgb 9.5 L Hct 31.3 L MCV 77 L MCH 23 L MCHC 30 L RDW 33.7 H Plt Count Seg Neutrophils % Seg Neuts % (Manual) 95.0 H Lymphocytes % (Manual) 2.0 L Monocytes % (Manual) Basophils % (Manual) Nucleated RBC % 3.0 H Seg Neutrophils # Man 8.0 H Lymphocytes # (Manual) 0.2 L Monocytes # (Manual) Basophils # (Manual) PT INR APTT Sodium Potassium Chloride Carbon Dioxide BUN Creatinine Glucose POC Glucose 142 H 124 H Lactic Acid Iron Ammonia CK-MB (CK-2) CK-MB (CK-2) Rel Index Total Protein Albumin Salicylates Acetaminophen Crossmatch 10/11/20 10/11/20 10/12/20 05:51 11:56 04:53 WBC RBC Hgb 9.5 L Hct 30.0 L MCV 75 L MCH 24 L MCHC RDW 32.8 H Plt Count Seg Neutrophils % Seg Neuts % (Manual) Lymphocytes % (Manual) Monocytes % (Manual) Basophils % (Manual) Nucleated RBC % Seg Neutrophils # Man Lymphocytes # (Manual) Monocytes # (Manual) Basophils # (Manual) PT INR APTT Sodium 130 L Potassium Chloride Carbon Dioxide 18 L BUN 23 H Creatinine Glucose POC Glucose 126 H Lactic Acid Iron Ammonia CK-MB (CK-2) CK-MB (CK-2) Rel Index Total Protein Albumin Salicylates Acetaminophen Crossmatch 10/12/20 10/12/20 04:53 11:42 WBC RBC Hgb Hct MCV MCH MCHC RDW Plt Count Seg Neutrophils % Seg Neuts % (Manual) Lymphocytes % (Manual) Monocytes % (Manual) Basophils % (Manual) Nucleated RBC % Seg Neutrophils # Man Lymphocytes # (Manual) Monocytes # (Manual) Basophils # (Manual) PT INR APTT Sodium 130 L Potassium Chloride Carbon Dioxide 18 L BUN 25 H Creatinine Glucose 74 L POC Glucose 59 L Lactic Acid Iron Ammonia CK-MB (CK-2) CK-MB (CK-2) Rel Index Total Protein Albumin Salicylates Acetaminophen Crossmatch
--- NOTE | 2020-10-12 14:02 | Progress Note ---
Assessment and Plan Acute encephalopathy hyponatremia Hypothermia, resolved Pulmonary infiltrate in right lung on CXR Atherosclerotic cerebrovascular disease Severe anemia -possible GI bleed Severe protein-calorie malnutrition sodium is trending up will cont to monitor sodium level avoid correction m ore than 8mmol/l in 24 hours Subjective Date of service: 10/12/20 Principal diagnosis: hyponatremia, encephalopathy Interval history: no overnight events Objective - Vital Signs Vital signs: Vital Signs - 12hr 10/12/20 10/12/20 10/12/20 02:00 03:44 05:00 Temperature 93.0 F L Pulse Rate 66 89 Respiratory 19 18 Rate Blood Pressure 121/64 O2 Sat by Pulse 64 L 100 Oximetry 10/12/20 10/12/20 08:27 11:56 Temperature 98.6 F 98.0 F Pulse Rate 144 H 146 H Respiratory 18 20 Rate Blood Pressure 106/77 134/89 O2 Sat by Pulse 100 96 Oximetry - Lab 10/12/20 04:53 10/12/20 04:53 Most recent lab results Calcium 9.1 mg/dL (8.4-10.2) 10/12/20 04:53 Phosphorus 3.00 mg/dL (2.5-4.5) 10/06/20 05:07 Magnesium 1.90 mg/dL (1.7-2.3) 10/06/20 05:07 Urine Sodium 10 mmol/L 10/07/20 Unknown Medications & Allergies - Medications Allergies/Adverse Reactions: Allergies No Known Allergies Allergy (Unverified 10/03/20 12:27) Home Medications: Home Medications Medication Instructions Recorded Confirmed Last Taken Type Unobtainable 10/10/20 10/10/20 Unknown History Active Medications: Generic Name Dose Route Start Last Admin Trade Name Freq PRN Reason Stop Dose Admin Acetaminophen 650 mg 10/03/20 02:10 10/06/20 15:28 Acetaminophen 325 Mg Tab PO 650 mg Q4H PRN Administration Pain MILD(1-3)/Fever >100.5/ROMERO Al Hydrox/Mg Hydrox/Simethicone 30 ml 10/03/20 02:10 Alum-Mag Hydroxide-Simethicone [id number]/5ml Oral Liqd 30 Ml PO Q4H PRN Indigestion Lipase/Protease/Amylase 1 each 10/03/20 16:51 Lipase 10,500/Protease 25,000/Amylase 43,750 (Units) Dr Reis FEEDTUBE PRN PRN For Clogged Feeding Tube Dextrose 0 ml 10/02/20 22:49 10/12/20 11:49 Dextrose 50% In Water (25gm) 50 Ml Syringe IV 50 ml Q30MIN PRN Administration Hypoglycemia Protocol Ferrous Sulfate 325 mg 10/03/20 10:00 10/12/20 11:00 Ferrous Sulfate 325 Mg Tab PO Not Given QDAY JOSE Folic Acid 1 mg 10/03/20 10:00 10/12/20 11:00 Folic Acid 1 Mg Tab PO Not Given QDAY JOSE Sodium Chloride 153.8 meq/ 1,038.45 mls @ 100 mls/hr 10/09/20 13:00 10/12/20 02:56 Dextrose IV 100 mls/hr DIRECT JOSE Administration Levetiracetam 250 mg/ Dextrose 102.5 mls @ 400 mls/hr 10/10/20 22:00 10/12/20 11:03 IV 400 mls/hr Q12HR JOSE Administration Thiamine HCl 300 mg/ Sodium 53 mls @ 100 mls/hr 10/11/20 14:00 10/12/20 11:17 Chloride IV 10/15/20 23:59 100 mls/hr QDAY JOSE Administration Magnesium Hydroxide 30 ml 10/03/20 02:10 Magnesium Hydroxide (Mom) Oral Liqd Udc PO Q4H PRN Constipation Metoclopramide HCl 10 mg 10/03/20 02:10 Metoclopramide 10 Mg/2 Ml Inj IV Q6H PRN Nausea And Vomiting Multivitamins 1 each 10/03/20 10:00 10/12/20 11:03 Multivitamins ,Therapeutic Tab PO Not Given QDAY [facility] Ondansetron HCl 4 mg 10/03/20 02:10 10/07/20 23:19 Ondansetron 4 Mg/2 Ml Inj IV 4 mg Q8H PRN Administration Nausea And Vomiting Oxycodone/Acetaminophen 1 tab 10/03/20 02:10 Oxycodone /Acetaminophen 5-325mg Tab PO Q6H PRN Pain, Moderate (4-6) Pantoprazole Sodium 40 mg 10/04/20 15:00 10/12/20 11:03 Pantoprazole 40 Mg Inj IV 40 mg QDAY JOSE Administration Promethazine HCl 25 mg 10/03/20 02:10 Promethazine 25 Mg Rect Supp [place] Q6H PRN N/V IF NPO AND NO IV ACCESS Senna 8.6 mg 10/03/20 02:10 Sennosides 8.6 Mg Tab PO Q12HR PRN Constipation Simple Syrup 15 ml 10/03/20 16:51 Simple Syrup 15 Ml FEEDTUBE PRN PRN Hypoglycemia Simple Syrup 30 ml 10/03/20 16:51 Simple Syrup 15 Ml FEEDTUBE PRN PRN Hypoglycemia Sodium Bicarbonate 325 mg 10/03/20 16:51 Sodium Bicarbonate 325 Mg Tab FEEDTUBE PRN PRN For Clogged Feeding Tube Sodium Chloride 2 gm 10/09/20 12:00 10/12/20 13:24 Sodium Chloride 1 Gm Tab PO Not Given TID JOSE
[2020-10-12 16:24] LABS: Anisocytosis 3+; Burr Cells 3+; Hypochromasia 1+; Platelet Estimate Consistent w Auto; Poikilocytosis 3+; Spherocytes 1+; Target Cells 1+; Tear Drop Cells 1+; Total Cells Counted 100; Toxic Granulation 1+
[2020-10-12 16:25] LABS: Platelet Count 136 K/mm3 (140-440)
[2020-10-13] MEDS: DEXTROSE 50% IN WATER (25GM) 50 ML SYRINGE IV PRN ×2 (00:32→11:53)
[2020-10-13] MEDS: WATER IV SCH ×2 (03:18→14:10)
[2020-10-13] MEDS: DEXTROSE 10% IV SCH ×2 (03:18→14:10)
[2020-10-13] MEDS: SODIUM CHLORIDE IV SCH ×2 (03:18→14:10)
[2020-10-13 05:53] LABS: Hematocrit 29.4 % (35.5-45.6); Hemoglobin 9.4 gm/dl (11.8-15.2); Mean Corpuscular HGB Conc 32 % (32-34); Mean Corpuscular Volume 75 fl (84-94); Red Blood Count 3.93 M/mm3 (3.65-5.03)
[2020-10-13 06:17] LABS: Calcium 8.5 mg/dL (8.4-10.2)
[2020-10-13 06:18] LABS: Red Cell Distribution Width 32.9 % (13.2-15.2)
[2020-10-13] MEDS: levETIRAcetam 250 MG in DEXTROSE 5% IN WATER 100 ML IV SCH ×2 (10:12→21:38)
[2020-10-13] MEDS: FOLIC ACID 1 MG TAB PO SCH (10:13)
[2020-10-13] MEDS: FERROUS SULFATE 325 MG TAB PO SCH (10:13)
[2020-10-13] MEDS: SODIUM CHLORIDE 1 GM TAB PO SCH ×3 (10:13→21:37)
[2020-10-13] MEDS: PANTOPRAZOLE 40 MG INJ IV SCH (10:13)
[2020-10-13] MEDS: MULTIVITAMINS ,THERAPEUTIC TAB PO SCH (10:14)
--- NOTE | 2020-10-13 10:31 | Progress Note ---
Assessment and Plan Assessment: Acute encephalopathy Hyponatremia Hypothermia, resolved Pulmonary infiltrate in right lung on CXR Atherosclerotic cerebrovascular disease Severe anemia -possible GI bleed Severe protein-calorie malnutrition Acute Renal Failure Plan: Recent sodium level is 132, prior was 130 Salt tabs 2 grams TID on med list Will continue to monitor sodium level Avoid correction more than 8 mmol/l in 24 hours Serum creatinine noted to rise to 1.6 today from 1.2 yesterday Obtain urine lytes, protein labs and eosinophils Avoid nephrotoxic agents Obtain daily weights Monitor I/O's daily Continue to monitor Plan of care reviewed by Dr. Cam Subjective Date of service: 10/13/20 Principal diagnosis: hyponatremia, encephalopathy Interval history: Patient sleeping in bed with mouth open wide Objective - Vital Signs Vital signs: Vital Signs - 12hr 10/12/20 10/13/20 10/13/20 23:30 02:00 04:19 Temperature 92.3 F L Pulse Rate 84 88 79 Respiratory 22 22 Rate Blood Pressure 116/75 129/86 O2 Sat by Pulse 92 98 Oximetry 10/13/20 10/13/20 05:00 08:21 Temperature Pulse Rate 78 Respiratory 18 24 Rate Blood Pressure 131/96 O2 Sat by Pulse 100 98 Oximetry - General Appearance General appearance: other (Sleeping, mouth open wide, NAD) EENT: ATNC Neck: no JVD Respiratory: Present: Decreased Breath Sounds Cardiology: S1S2 Gastrointestinal: other (Has feeding tube via nose) Integumentary: warm and dry Neurologic: other (Sleeping) Musculoskeletal: other (No edema) - Lab 10/13/20 05:24 10/13/20 05:24 Most recent lab results Calcium 8.5 mg/dL (8.4-10.2) 10/13/20 05:24 Phosphorus 3.00 mg/dL (2.5-4.5) 10/06/20 05:07 Magnesium 1.90 mg/dL (1.7-2.3) 10/06/20 05:07 Urine Sodium 10 mmol/L 10/07/20 Unknown Medications & Allergies - Medications Allergies/Adverse Reactions: Allergies No Known Allergies Allergy (Unverified 10/03/20 12:27) Home Medications: Home Medications Medication Instructions Recorded Confirmed Last Taken Type Unobtainable 10/10/20 10/10/20 Unknown History Active Medications: Generic Name Dose Route Start Last Admin Trade Name Freq PRN Reason Stop Dose Admin Acetaminophen 650 mg 10/03/20 02:10 10/06/20 15:28 Acetaminophen 325 Mg Tab PO 650 mg Q4H PRN Administration Pain MILD(1-3)/Fever >100.5/ROMERO Al Hydrox/Mg Hydrox/Simethicone 30 ml 10/03/20 02:10 Alum-Mag Hydroxide-Simethicone [phone]/5ml Oral Liqd 30 Ml PO Q4H PRN Indigestion Lipase/Protease/Amylase 1 each 10/03/20 16:51 Lipase 10,500/Protease 25,000/Amylase 43,750 (Units) Dr Reis FEEDTUBE PRN PRN For Clogged Feeding Tube Dextrose 0 ml 10/02/20 22:49 10/13/20 00:32 Dextrose 50% In Water (25gm) 50 Ml Syringe IV 50 ml Q30MIN PRN Administration Hypoglycemia Protocol Ferrous Sulfate 325 mg 10/03/20 10:00 10/13/20 10:13 Ferrous Sulfate 325 Mg Tab PO Not Given QDAY JOSE Folic Acid 1 mg 10/03/20 10:00 10/13/20 10:13 Folic Acid 1 Mg Tab PO Not Given QDAY JOSE Sodium Chloride 153.8 meq/ 1,038.45 mls @ 100 mls/hr 10/09/20 13:00 10/13/20 03:18 Dextrose IV 100 mls/hr DIRECT JOSE Administration Levetiracetam 250 mg/ Dextrose 102.5 mls @ 400 mls/hr 10/10/20 22:00 10/13/20 10:12 IV 400 mls/hr Q12HR JOSE Administration Thiamine HCl 300 mg/ Sodium 53 mls @ 100 mls/hr 10/11/20 14:00 10/12/20 11:17 Chloride IV 10/15/20 23:59 100 mls/hr QDAY JOSE Administration Magnesium Hydroxide 30 ml 10/03/20 02:10 Magnesium Hydroxide (Mom) Oral Liqd Udc PO Q4H PRN Constipation Metoclopramide HCl 10 mg 10/03/20 02:10 Metoclopramide 10 Mg/2 Ml Inj IV Q6H PRN Nausea And Vomiting Multivitamins 1 each 10/03/20 10:00 10/13/20 10:14 Multivitamins ,Therapeutic Tab PO Not Given QDAY JOSE Ondansetron HCl 4 mg 10/03/20 02:10 10/07/20 23:19 Ondansetron 4 Mg/2 Ml Inj IV 4 mg Q8H PRN Administration Nausea And Vomiting Oxycodone/Acetaminophen 1 tab 10/03/20 02:10 Oxycodone /Acetaminophen 5-325mg Tab PO Q6H PRN Pain, Moderate (4-6) Pantoprazole Sodium 40 mg 10/04/20 15:00 10/13/20 10:13 Pantoprazole 40 Mg Inj IV 40 mg QDAY JOSE Administration Promethazine HCl 25 mg 10/03/20 02:10 Promethazine 25 Mg Rect Supp [place] Q6H PRN N/V IF NPO AND NO IV ACCESS Senna 8.6 mg 10/03/20 02:10 Sennosides 8.6 Mg Tab PO Q12HR PRN Constipation Simple Syrup 15 ml 10/03/20 16:51 Simple Syrup 15 Ml FEEDTUBE PRN PRN Hypoglycemia Simple Syrup 30 ml 10/03/20 16:51 Simple Syrup 15 Ml FEEDTUBE PRN PRN Hypoglycemia Sodium Bicarbonate 325 mg 10/03/20 16:51 Sodium Bicarbonate 325 Mg Tab FEEDTUBE PRN PRN For Clogged Feeding Tube Sodium Chloride 2 gm 10/09/20 12:00 10/13/20 10:13 Sodium Chloride 1 Gm Tab PO Not Given [facility]
[2020-10-13] MEDS: THIAMINE 300 MG in SODIUM CHLORIDE 0.9% 50 ML IV SCH (11:00)
--- NOTE | 2020-10-13 11:31 | Progress Note ---
Assessment and Plan Assessment and plan: -- Acute encephalopathy CT angio of the head that is a significant narrowing seen in both posterior cere bral arteries and no signs of large vessel CT of the head no acute finding but showed a cerebral atrophy with suspicious atrophy and atherosclerotic calcification within the distal right middle cereb ral artery. MRI brain without any acute findings Neurology consulted, will follow EEG -cannot r/o acute seizure with postictal state --Left-sided hemiparesis with significant aphasia Placed on stroke protocol, neurology following, failed swallow eval MRI brain without any new findings, EEG ordered and pending Aspirin due to severe anemia, will initiate Lipitor when able to tolerate tube feeding -- Hypothermia, resolved Monitor body temperature Applied bed hugger -- Pulmonary infiltrate in right lung on CXR COVID-19 test is negative Likely secondary to pneumonia Start empiric antibiotics Rocephin and azithromycin -- Atherosclerotic cerebrovascular disease Safety and fall precaution at all times PT OT consult follow-up with recommendation for discharge placement --Severe anemia -possible GI bleed? Likely 2/2 to malnutrion-patient has no evidence of active bleeding and has normal PLT Monitor H&Hadmission H&H 6.7> 5.8 S/p 3 units of blood transfusion Iron and multivitamin supplement Check iron level, ordered stool for occult blood GI consulted -- Severe protein-calorie malnutrition relationship banker consult, failed swallow eval Order for Dobbhoff tube and Tube feeding --Persistent hypoglycemia, patient placed D10, will also initiate tube feeding -- DVT prophylaxis ACD hold Subcutaneous anticoagulant due to low H/H Daily clinical course: 10/03/20: CT of the head no acute finding but showed a cerebral atrophy with suspicious atrophy and atherosclerotic calcification within the distal right middle cerebral artery. Patient also noted with hemoglobin of 5.8, received 1 unit of packed RBC and ordered for tomorrow Neuro is consulted, Covid test is negative We will check stool for occult blood MRI brain ordered we will follow Will hold any oral medicine until cleared by speech or passes the bedside swallow eval Patient noted to have severe hypoglycemic, will place on D10W Follow H&H and BMP Continue current management plan as dictated in the HPI 10/04/20: no acute findings in MRI, pending EEG, s/p 3 units PRBC transfusion. follow speech eval, TF for now, h/h stable, GI consulted - follow recommendation. 10/05/20 Patient with acute encephalopathy, severe anemia s/p PRBC transfusion. GI following. Hgb 9.8 today. Will repeat in am. Left sided weakness. MRI negative for stroke. Neurology following. 10/06/20 Patient with encephalopathy, severe anemia s/p PRBC transfusion. Hgb 9.4 today. Patient has left sided weakness but MRI neg. Patient needs PEG tube. Will talk with family. Hypokalemia. Replace Q6h X 2. Check Mg 10/07/20 Patient with encephalopathy, severe anemia s/p PRBC transfusion. Hgb 9.6 today. Patient has left sided weakness but MRI neg. Patient needs PEG tube. Will talk with family. Hyponatremia of 128. This may be due to D10% he was on prior to NG tube. Stopped 10% Dextrose. Consulted Nephrology 10/08/20 Patient with encephalopathy, severe anemia s/p PRBC transfusion. Hgb 9.6 today. Patient has left sided weakness but MRI neg. Patient needs PEG tube. Hyponatremia worse today 126. This is due to D10% resumed last night because of hypoglycemia. I discussed with Dr. Herrera. Stop 10%Dextrose. Start D5NS Spoke to daughter, Cindy Singh, yesterday and gave update. She wants PEG tube placed. Discussed plan with PAKO Chambers. He wants to do upper and lower endoscopy to evaluate anemia, before PEG tube 10/09/20 Patient with encephalopathy, severe anemia s/p PRBC transfusion. Hgb 10.3 today. Patient has left sided weakness but MRI neg. Patient needs PEG tube. Hyponatremia still present Na 126 today. This is due to D10% resumed again last night because of hypoglycemia. Nephrology had recommended D5NS but 10% Dextrose restarted overnight because of hypoglycemia. Nurses unable to place NG tube. I discussed with Dr. Otero today and he will do. Spoke to daughter, Cindy Singh, yesterday and gave update. She wants PEG tube placed. Discussed plan with PAKO Chambers. He wants to do upper and lower endoscopy to evaluate anemia, before PEG tube Today Na still 126. I discussed with Dr. Herrera and he recommended D10NS. I called Pharmacy. They will mix special D10NS drip. Patient had bilateral pneumonia on CXR therefore started iv Antibiotics, blood cultures. yesterday. Consulted ID 10/10/2020. Patient remains encephalopathic with hemoglobin stabilizing yesterday. Recheck H&H. Patient with left-sided weakness but MRI negative. Fluoroscopic NG tube placement completed yesterday. Await GI to perform EGD and colonoscopy. Follow-up hyponatremia with BMP results. Dr. Aldrich Spoke to daughter, Cindy Singh, and gave update. Daughter wants PEG tube placed. Continue IV antibiotics for bilateral pneumonia. ID consulted. Follow-up procalcitonin levels. 10/11/2020. Patient's hemoglobin remained stable today at 9.5. However, patient noted to be hypotensive with systolic blood pressure of 83. Patient received NS 250 cc bolus with improvement of blood pressure systolically to 123. GI plans to perform EGD/colonoscopy tomorrow. Hyponatremia improving. Start IV fluid of normal saline at 75 cc an hour x1 L 10/12/2020. Patient noted to have some gurgling of the upper airway. NG tube was placed to low intermittent suction. Check chest x-ray and KUB to rule out aspiration and/or ileus. Continue to monitor. H/H remained stable. ID stopped antibiotics due to normal procalcitonin. Speech evaluation 10/13/2020. Patient remains encephalopathic. I discussed overall mental status with the daughter yesterday and updated her with plan of care. Neurology reports: CT angio of the head that is a significant narrowing seen in both posterior c erebral arteries - and no signs of large vessel -CT of the head no acute finding but showed a cerebral atrophy with suspicious atrophy and atherosclerotic calcification within the distal right middle cerebral artery. -MRI brain without any acute findings - EEG completed yesterday remarkable for diffuse slowing 3-4 Hz and with occassional triphasic waves , no epileptiform discharges is noted -- full report to follow -Repeat MRI brain showed no acute finding Keppra was decreased to 250 mg IV twice daily and thiamine was added x3 days. No LP for now due to lack of any inflammatory findings. Repeat EEG per neurology. Sodium level has improved. Serum creatinine has increased to 1.6 today. Avoid nephrotoxic agents and monitor I/O's daily. Salt tabs 2 g 3 times daily per nephrology. History Interval history: Patient noted to have some gurgling of the upper airway. Patient is somnolent and confused. Hospitalist Physical - Constitutional Vitals: Temp Pulse Resp BP Pulse Ox 92.3 F L 78 28 H 153/99 94 10/13/20 04:19 10/13/20 10:47 10/13/20 10:47 10/13/20 10:47 10/13/20 10:47 General appearance: Present: other (Unresponsive, gurgling upper airway sounds) - EENT Eyes: Present: PERRL, EOM intact ENT: hearing intact, clear oral mucosa, dentition normal - Neck Neck: Present: supple, normal ROM - Respiratory Respiratory effort: normal Respiratory: bilateral: CTA - Cardiovascular Rhythm: regular Heart Sounds: Present: S1 & S2. Absent: gallop, rub - Extremities Extremities: no ischemia, No edema, Full ROM - Abdominal General gastrointestinal: soft, non-tender, non-distended, normal bowel sounds - Integumentary Integumentary: Present: clear, warm, dry - Neurologic Neurologic: CNII-XII intact, moves all extremities HEART Score - HEART Score Troponin: Troponin T < 0.010 ng/mL (0.00-0.029) 10/02/20 23:17 Results - Labs CBC & Chem 7: 10/13/20 05:24 10/13/20 05:24 Labs: Laboratory Last Values WBC 10.5 K/mm3 (4.5-11.0) 10/13/20 05:24 RBC 3.93 M/mm3 (3.65-5.03) 10/13/20 05:24 Hgb 9.4 gm/dl (11.8-15.2) L 10/13/20 05:24 Hct 29.4 % (35.5-45.6) L 10/13/20 05:24 MCV 75 fl (84-94) L 10/13/20 05:24 MCH 24 pg (28-32) L 10/13/20 05:24 MCHC 32 % (32-34) 10/13/20 05:24 RDW 32.9 % (13.2-15.2) H 10/13/20 05:24 Plt Count 136 K/mm3 (140-440) L 10/12/20 04:53 Lymph % (Auto) Sorter/Assay Tech 10/10/20 10:58 [place] % (Auto) Sorter/Assay Tech 10/10/20 10:58 Eos % (Auto) Sorter/Assay Tech 10/10/20 10:58 Baso % (Auto) Sorter/Assay Tech 10/10/20 10:58 Lymph # (Auto) Sorter/Assay Tech 10/10/20 10:58 [place] # (Auto) Sorter/Assay Tech 10/10/20 10:58 Eos # (Auto) Sorter/Assay Tech 10/10/20 10:58 Baso # (Auto) Sorter/Assay Tech 10/10/20 10:58 Add Manual Diff Complete 10/12/20 04:53 Total Counted 100 10/12/20 04:53 Seg Neutrophils % Sorter/Assay Tech 10/10/20 10:58 Seg Neuts % (Manual) 89.0 % (40.0-70.0) H 10/12/20 04:53 Band Neutrophils % 3.0 % 10/09/20 06:32 Lymphocytes % (Manual) 5.0 % (13.4-35.0) L 10/12/20 04:53 Monocytes % (Manual) 6.0 % (0.0-7.3) 10/12/20 04:53 Eosinophils % (Manual) 3.0 % (0.0-4.3) 10/10/20 10:58 Basophils % (Manual) 2.0 % (0.0-1.8) H 10/10/20 10:58 Nucleated RBC % Not Reportable 10/12/20 04:53 Seg Neutrophils # Sorter/Assay Tech 10/10/20 10:58 Seg Neutrophils # Man 7.2 K/mm3 (1.8-7.7) 10/12/20 04:53 Band Neutrophils # 0.0 K/mm3 10/12/20 04:53 Lymphocytes # (Manual) 0.4 K/mm3 (1.2-5.4) L 10/12/20 04:53 Abs React Lymphs (Man) 0.0 K/mm3 10/12/20 04:53 Monocytes # (Manual) 0.5 K/mm3 (0.0-0.8) 10/12/20 04:53 Eosinophils # (Manual) 0.0 K/mm3 (0.0-0.4) 10/12/20 04:53 Basophils # (Manual) 0.0 K/mm3 (0.0-0.1) 10/12/20 04:53 Metamyelocytes # 0.0 K/mm3 10/12/20 04:53 Myelocytes # 0.0 K/mm3 10/12/20 04:53 Promyelocytes # 0.0 K/mm3 10/12/20 04:53 Blast Cells # 0.0 K/mm3 10/12/20 04:53 WBC Morphology Not Reportable 10/12/20 04:53 Hypersegmented Neuts Not Reportable 10/12/20 04:53 Hyposegmented Neuts Not Reportable 10/12/20 04:53 Hypogranular Neuts Not Reportable 10/12/20 04:53 Smudge Cells Not Reportable 10/12/20 04:53 Toxic Granulation 1+ 10/12/20 04:53 Toxic Vacuolation Not Reportable 10/12/20 04:53 Dohle Bodies Not Reportable 10/12/20 04:53 Pelger-Huet Anomaly Not Reportable 10/12/20 04:53 Andrés Rods Not Reportable 10/12/20 04:53 Platelet Estimate Consistent w auto 10/12/20 04:53 Clumped Platelets Not Reportable 10/12/20 04:53 Plt Clumps, EDTA Not Reportable 10/12/20 04:53 Large Platelets Not Reportable 10/12/20 04:53 Giant Platelets Not Reportable 10/12/20 04:53 Platelet Satelliting Not Reportable 10/12/20 04:53 Plt Morphology Comment Not Reportable 10/12/20 04:53 RBC Morphology Not Reportable 10/12/20 04:53 Dimorphic RBCs Not Reportable 10/12/20 04:53 Polychromasia Not Reportable 10/12/20 04:53 Hypochromasia 1+ 10/12/20 04:53 Poikilocytosis 3+ 10/12/20 04:53 Anisocytosis 3+ 10/12/20 04:53 Microcytosis Not Reportable 10/12/20 04:53 Macrocytosis Not Reportable 10/12/20 04:53 Spherocytes 1+ 10/12/20 04:53 Pappenheimer Bodies Not Reportable 10/12/20 04:53 Sickle Cells Not Reportable 10/12/20 04:53 Target Cells 1+ 10/12/20 04:53 Tear Drop Cells 1+ 10/12/20 04:53 Ovalocytes Not Reportable 10/12/20 04:53 Helmet Cells Not Reportable 10/12/20 04:53 [place] Bodies Not Reportable 10/12/20 04:53 [place] Rings Not Reportable 10/12/20 04:53 [place] Cells 3+ 10/12/20 04:53 Bite Cells Not Reportable 10/12/20 04:53 Crenated Cell Not Reportable 10/12/20 04:53 Elliptocytes Not Reportable 10/12/20 04:53 Acanthocytes (Spur) 1+ 10/12/20 04:53 Rouleaux Not Reportable 10/12/20 04:53 Hemoglobin C Crystals Not Reportable 10/12/20 04:53 Schistocytes Not Reportable 10/12/20 04:53 Malaria parasites Not Reportable 10/12/20 04:53 Dereck Bodies Not Reportable 10/12/20 04:53 Hem Pathologist Commnt No 10/12/20 04:53 PT 20.8 Sec. (12.2-14.9) H 10/02/20 23:17 INR 1.74 (0.87-1.13) H 10/02/20 23:17 APTT 57.6 Sec. (24.2-36.6) H 10/02/20 23:17 Thrombin Time 17.8 Sec. (15.1-19.6) 10/02/20 23:17 Sodium 132 mmol/L (137-145) L 10/13/20 05:24 Potassium 5.0 mmol/L (3.6-5.0) 10/13/20 05:24 Chloride 105.6 mmol/L (98-107) 10/13/20 05:24 Carbon Dioxide 17 mmol/L (22-30) L 10/13/20 05:24 Anion Gap 14 mmol/L 10/13/20 05:24 BUN 26 mg/dL (9-20) H 10/13/20 05:24 Creatinine 1.6 mg/dL (0.8-1.3) H 10/13/20 05:24 Estimated GFR 51 ml/min 10/13/20 05:24 BUN/Creatinine Ratio 16 % 10/13/20 05:24 Glucose 97 mg/dL (75-100) 10/13/20 05:24 POC Glucose 83 mg/dL (70-105) 10/13/20 05:19 Hemoglobin A1c 5.2 % (4-6) 10/03/20 05:57 Osmolality 267 Mosm/kg 10/07/20 13:54 Lactic Acid 1.50 mmol/L (0.7-2.0) 10/03/20 04:43 Calcium 8.5 mg/dL (8.4-10.2) 10/13/20 05:24 Phosphorus 3.00 mg/dL (2.5-4.5) 10/06/20 05:07 Magnesium 1.90 mg/dL (1.7-2.3) 10/06/20 05:07 Iron 42 ug/dL (49-181) L 10/03/20 05:57 TIBC 305 mcg/dL (250-450) 10/03/20 05:57 Total Bilirubin 0.60 mg/dL (0.1-1.2) 10/04/20 05:59 AST 26 units/L (5-40) 10/04/20 05:59 ALT 15 units/L (7-56) 10/04/20 05:59 Alkaline Phosphatase 105 units/L (35-129) 10/04/20 05:59 Ammonia 22.0 umol/L (25-60) L 10/02/20 23:17 Total Creatine Kinase 88 units/L (55-170) 10/02/20 23:17 CK-MB (CK-2) 7.5 ng/mL (0.0-4.0) H 10/02/20 23:17 CK-MB (CK-2) Rel Index 8.5 (0-4) H 10/02/20 23:17 Troponin T < 0.010 ng/mL (0.00-0.029) 10/02/20 23:17 Total Protein 6.4 g/dL (6.3-8.2) 10/04/20 05:59 Albumin 2.6 g/dL (3.9-5) L 10/04/20 05:59 Albumin/Globulin Ratio 0.7 % 10/04/20 05:59 Procalcitonin 0.10 ng/mL (<0.15) 10/10/20 10:58 TSH 2.130 mlU/mL (0.270-4.200) 10/07/20 13:54 Total Cortisol 17.4 mcg/dL () 10/09/20 02:46 Urine Osmolality 223 Mosm/kg 10/07/20 Unknown Urine Sodium 10 mmol/L 10/07/20 Unknown Salicylates < 0.3 mg/dL (2.8-20.0) L 10/02/20 23:17 Acetaminophen 5.0 ug/mL (10.0-30.0) L 10/02/20 23:17 Plasma/Serum Alcohol < 0.01 % (0-0.07) 10/02/20 23:17 Coronavirus (PCR) Negative (Negative) 10/06/20 Unknown Blood Type O POSITIVE 10/03/20 05:57 Antibody Screen Negative 10/03/20 05:57 Crossmatch See Detail 10/03/20 05:57 Microbiology: Microbiology 10/08/20 15:02 Peripheral/Venous Blood Culture - Preliminary NO GROWTH AFTER 4 DAYS 10/08/20 14:35 Peripheral/Venous Blood Culture - Preliminary NO GROWTH AFTER 4 DAYS Jackson/IV: Voiding Method Condom Catheter Active Medications - Current Medications Current Medications: Generic Name Dose Route Start Last Admin Trade Name Freq PRN Reason Stop Dose Admin Acetaminophen 650 mg 10/03/20 02:10 10/06/20 15:28 Acetaminophen 325 Mg Tab PO 650 mg Q4H PRN Administration Pain MILD(1-3)/Fever >100.5/ROMERO Al Hydrox/Mg Hydrox/Simethicone 30 ml 10/03/20 02:10 Alum-Mag Hydroxide-Simethicone [id number]/5ml Oral Liqd 30 Ml PO Q4H PRN Indigestion Lipase/Protease/Amylase 1 each 10/03/20 16:51 Lipase 10,500/Protease 25,000/Amylase 43,750 (Units) Dr Reis FEEDTUBE PRN PRN For Clogged Feeding Tube Dextrose 0 ml 10/02/20 22:49 10/13/20 00:32 Dextrose 50% In Water (25gm) 50 Ml Syringe IV 50 ml Q30MIN PRN Administration Hypoglycemia Protocol Ferrous Sulfate 325 mg 10/03/20 10:00 10/13/20 10:13 Ferrous Sulfate 325 Mg Tab PO Not Given QDAY JOSE Folic Acid 1 mg 10/03/20 10:00 10/13/20 10:13 Folic Acid 1 Mg Tab PO Not Given QDAY JOSE Sodium Chloride 153.8 meq/ 1,038.45 mls @ 100 mls/hr 10/09/20 13:00 10/13/20 03:18 Dextrose IV 100 mls/hr DIRECT JOSE Administration Levetiracetam 250 mg/ Dextrose 102.5 mls @ 400 mls/hr 10/10/20 22:00 10/13/20 10:12 IV 400 mls/hr Q12HR JOSE Administration Thiamine HCl 300 mg/ Sodium 53 mls @ 100 mls/hr 10/11/20 14:00 10/13/20 11:00 Chloride IV 10/15/20 23:59 100 mls/hr QDAY JOSE Administration Magnesium Hydroxide 30 ml 10/03/20 02:10 Magnesium Hydroxide (Mom) Oral Liqd Udc PO Q4H PRN Constipation Metoclopramide HCl 10 mg 10/03/20 02:10 Metoclopramide 10 Mg/2 Ml Inj IV Q6H PRN Nausea And Vomiting Multivitamins 1 each 10/03/20 10:00 10/13/20 10:14 Multivitamins ,Therapeutic Tab PO Not Given QDAY JOSE Ondansetron HCl 4 mg 10/03/20 02:10 10/07/20 23:19 Ondansetron 4 Mg/2 Ml Inj IV 4 mg Q8H PRN Administration Nausea And Vomiting Oxycodone/Acetaminophen 1 tab 10/03/20 02:10 Oxycodone /Acetaminophen 5-325mg Tab PO Q6H PRN Pain, Moderate (4-6) Pantoprazole Sodium 40 mg 10/04/20 15:00 10/13/20 10:13 Pantoprazole 40 Mg Inj IV 40 mg QDAY JOSE Administration Promethazine HCl 25 mg 10/03/20 02:10 Promethazine 25 Mg Rect Supp AL Q6H PRN N/V IF NPO AND NO IV ACCESS Senna 8.6 mg 10/03/20 02:10 Sennosides 8.6 Mg Tab PO Q12HR PRN Constipation Simple Syrup 15 ml 10/03/20 16:51 Simple Syrup 15 Ml FEEDTUBE PRN PRN Hypoglycemia Simple Syrup 30 ml 10/03/20 16:51 Simple Syrup 15 Ml FEEDTUBE PRN PRN Hypoglycemia Sodium Bicarbonate 325 mg 10/03/20 16:51 Sodium Bicarbonate 325 Mg Tab FEEDTUBE PRN PRN For Clogged Feeding Tube Sodium Chloride 2 gm 10/09/20 12:00 10/13/20 10:13 Sodium Chloride 1 Gm Tab PO Not Given TID JOSE Nutrition/Malnutrition Assess - Dietary Evaluation Nutrition/Malnutrition Findings: Nutrition Notes Start: 10/03/20 08:51 Freq: Status: Active Protocol: Document 10/12/20 16:48 MK (Rec: 10/12/20 16:50 MK [id number]) Nutrition Notes Initial or Follow up Brief Note Current Diagnosis Diabetes Other Pertinent Diagnosis AMS, hypothermia, pneu, anemia , atherosclerotic cerebrovascular disease Current Diet NPO Subjective/Other Information Pt with large secretions in mouth and throat. Pt to get PEG once anemia resolved. Unable to speak with RN. Nutrition Intervention Follow-Up By: 10/14/20 Additional Comments F/u: TF start and tolerance, BG
--- NOTE | 2020-10-13 12:16 | Progress Note ---
Assessment and Plan Assessment and Plan Assessment and plan: 74 yo man who presented with AMS and left sided weakness. Patient was found by caregiver in his bed incontinent in feces/urine. Assessment and plan: # Acute encephalopathy -CT angio of the head that is a significant narrowing seen in both posterior cerebral arteries - and no signs of large vessel -CT of the head no acute finding but showed a cerebral atrophy with suspicious atrophy and atherosclerotic calcification within the distal right middle cerebral artery. -MRI brain without any acute findings - EEG today remarkable for diffuse slowing 3-4 Hz and with occassional triphasic waves , no epileptiform discharges is noted -- full report to follow -Repeat MRI brain showed no acute finding -Decrease Keppra 250 mg IV bid !!! -will add thiamin 300 mg Daily X3 days -No LP for now due to lack of any inflammatory findings #Left-sided hemiparesis with significant aphasia Placed on stroke protocol, neurology following, failed swallow eval # Hypothermia, intermittent Monitor body temperature Applied bed hugger -TSH ,B12 # Pulmonary infiltrate in right lung on CXR COVID-19 test is negative Likely secondary to pneumonia Start empiric antibiotics Rocephin and azithromycin # Atherosclerotic cerebrovascular disease Safety and fall precaution at all times PT OT consult follow-up with recommendation for discharge placement #Severe anemia -possible GI bleed? 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 malnutrition king maker consult, failed swallow eval Order for Dobbhoff tube and Tube feeding #Persistent hypoglycemia, patient placed D10, will also initiate tube feeding # DVT prophylaxis ACD hold Subcutaneous anticoagulant due to low H/H PLAN #Decrease Keppra 250 mg IV bid # Thiamin 300 mg Iv daily X3 days # started on tube feeding over all prognosis is quarded will sign off Subjective Date of service: 10/13/20 Principal diagnosis: hyponatremia, encephalopathy Interval history: may be slightly better responds to calling his name but is with slight if any speech out put not follow command move LES to pain stimulation , not upper extremities difficulty with speech and swallowing Objective - Vital Sign Vital Signs - 12hr 10/13/20 10/13/20 10/13/20 02:00 04:19 05:00 Temperature 92.3 F L Pulse Rate 88 79 Respiratory 22 18 Rate Blood Pressure 129/86 O2 Sat by Pulse 98 100 Oximetry 10/13/20 10/13/20 08:21 10:47 Temperature Pulse Rate 78 78 Respiratory 24 28 H Rate Blood Pressure 131/96 153/99 O2 Sat by Pulse 98 94 Oximetry - General Apperance Constitutional: uncomfortable - EENT EENT: PERRL, mucous membranes moist - Respiratory Respiratory: chest non-tender, rales, rhonchi - Cardiovascular Cardiovascular: regular rate, normal S1, normal S2 Extremities: no peripheral edema bilat, no clubbing, cyanosis - Gastrointestinal Gastrointestinal: normoactive bowel sounds - Integumentary Integumentary: normal - Neurologic Cranial nerve examination: PERRL, EOMI, ptosis, anisocoria, V1/V2/V3 grossly intact, facial droop Detailed motor examination: other (slightly squeeze with right hand , no movment other marin ) - Laboratory Findings CBC and BMP: 10/13/20 05:24 10/13/20 05:24 Abnormal Lab Findings: Abnormal Labs 10/02/20 10/02/20 10/02/20 23:17 23:17 23:17 WBC RBC 3.31 L Hgb 6.7 L Hct 21.8 L MCV 66 L MCH 20 L MCHC 31 L RDW 31.7 H Plt Count Seg Neutrophils % Seg Neuts % (Manual) 79.0 H Lymphocytes % (Manual) 11.0 L Monocytes % (Manual) 10.0 H Basophils % (Manual) Nucleated RBC % Seg Neutrophils # Man Lymphocytes # (Manual) 0.9 L Monocytes # (Manual) Basophils # (Manual) PT 20.8 H INR 1.74 H APTT 57.6 H Sodium Potassium Chloride Carbon Dioxide BUN Creatinine Glucose 42 L POC Glucose Lactic Acid Iron Ammonia CK-MB (CK-2) 7.5 H CK-MB (CK-2) Rel Index 8.5 H Total Protein Albumin 2.9 L Salicylates Acetaminophen Crossmatch 10/02/20 10/02/20 10/02/20 23:17 23:17 23:17 WBC RBC Hgb Hct MCV MCH MCHC RDW Plt Count Seg Neutrophils % Seg Neuts % (Manual) Lymphocytes % (Manual) Monocytes % (Manual) Basophils % (Manual) Nucleated RBC % Seg Neutrophils # Man Lymphocytes # (Manual) Monocytes # (Manual) Basophils # (Manual) PT INR APTT Sodium Potassium Chloride Carbon Dioxide BUN Creatinine Glucose POC Glucose Lactic Acid 2.20 H* Iron Ammonia 22.0 L CK-MB (CK-2) CK-MB (CK-2) Rel Index Total Protein Albumin Salicylates < 0.3 L Acetaminophen Crossmatch 10/02/20 10/03/20 10/03/20 23:17 05:57 05:57 WBC RBC 2.66 L Hgb 5.3 L* Hct 17.8 L* MCV 67 L MCH 20 L MCHC 30 L RDW 32.1 H Plt Count Seg Neutrophils % Seg Neuts % (Manual) Lymphocytes % (Manual) 2.0 L Monocytes % (Manual) Basophils % (Manual) Nucleated RBC % 1.0 H Seg Neutrophils # Man 8.6 H Lymphocytes # (Manual) 0.2 L Monocytes # (Manual) Basophils # (Manual) PT INR APTT Sodium Potassium Chloride Carbon Dioxide BUN Creatinine Glucose POC Glucose Lactic Acid Iron Ammonia CK-MB (CK-2) CK-MB (CK-2) Rel Index Total Protein Albumin Salicylates Acetaminophen 5.0 L Crossmatch See Detail 10/03/20 10/03/20 10/03/20 05:57 05:57 06:00 WBC RBC Hgb Hct MCV MCH MCHC RDW Plt Count Seg Neutrophils % Seg Neuts % (Manual) Lymphocytes % (Manual) Monocytes % (Manual) Basophils % (Manual) Nucleated RBC % Seg Neutrophils # Man Lymphocytes # (Manual) Monocytes # (Manual) Basophils # (Manual) PT INR APTT Sodium Potassium Chloride Carbon Dioxide BUN Creatinine Glucose 52 L POC Glucose 31 L Lactic Acid Iron 42 L Ammonia CK-MB (CK-2) CK-MB (CK-2) Rel Index Total Protein 5.8 L Albumin 3.1 L Salicylates Acetaminophen Crossmatch 10/03/20 10/03/20 10/03/20 07:34 09:43 10:57 WBC RBC Hgb Hct MCV MCH MCHC RDW Plt Count Seg Neutrophils % Seg Neuts % (Manual) Lymphocytes % (Manual) Monocytes % (Manual) Basophils % (Manual) Nucleated RBC % Seg Neutrophils # Man Lymphocytes # (Manual) Monocytes # (Manual) Basophils # (Manual) PT INR APTT Sodium Potassium Chloride Carbon Dioxide BUN Creatinine Glucose POC Glucose 59 L 41 L 31 L Lactic Acid Iron Ammonia CK-MB (CK-2) CK-MB (CK-2) Rel Index Total Protein Albumin Salicylates Acetaminophen Crossmatch 10/03/20 10/03/20 10/03/20 11:21 12:00 12:14 WBC RBC Hgb Hct MCV MCH MCHC RDW Plt Count Seg Neutrophils % Seg Neuts % (Manual) Lymphocytes % (Manual) Monocytes % (Manual) Basophils % (Manual) Nucleated RBC % Seg Neutrophils # Man Lymphocytes # (Manual) Monocytes # (Manual) Basophils # (Manual) PT INR APTT Sodium Potassium Chloride Carbon Dioxide BUN Creatinine Glucose POC Glucose 62 L 26 L 140 H Lactic Acid Iron Ammonia CK-MB (CK-2) CK-MB (CK-2) Rel Index Total Protein Albumin Salicylates Acetaminophen Crossmatch 10/03/20 10/03/20 10/03/20 13:33 14:19 14:59 WBC RBC Hgb Hct MCV MCH MCHC RDW Plt Count Seg Neutrophils % Seg Neuts % (Manual) Lymphocytes % (Manual) Monocytes % (Manual) Basophils % (Manual) Nucleated RBC % Seg Neutrophils # Man Lymphocytes # (Manual) Monocytes # (Manual) Basophils # (Manual) PT INR APTT Sodium Potassium Chloride Carbon Dioxide BUN Creatinine Glucose POC Glucose 24 L 59 L 40 L Lactic Acid Iron Ammonia CK-MB (CK-2) CK-MB (CK-2) Rel Index Total Protein Albumin Salicylates Acetaminophen Crossmatch 10/03/20 10/03/20 10/03/20 15:26 15:57 16:35 WBC RBC Hgb Hct MCV MCH MCHC RDW Plt Count Seg Neutrophils % Seg Neuts % (Manual) Lymphocytes % (Manual) Monocytes % (Manual) Basophils % (Manual) Nucleated RBC % Seg Neutrophils # Man Lymphocytes # (Manual) Monocytes # (Manual) Basophils # (Manual) PT INR APTT Sodium Potassium Chloride Carbon Dioxide BUN Creatinine Glucose POC Glucose 54 L 45 L 42 L Lactic Acid Iron Ammonia CK-MB (CK-2) CK-MB (CK-2) Rel Index Total Protein Albumin Salicylates Acetaminophen Crossmatch 10/03/20 10/03/20 10/03/20 17:16 18:37 19:56 WBC RBC Hgb Hct MCV MCH MCHC RDW Plt Count Seg Neutrophils % Seg Neuts % (Manual) Lymphocytes % (Manual) Monocytes % (Manual) Basophils % (Manual) Nucleated RBC % Seg Neutrophils # Man Lymphocytes # (Manual) Monocytes # (Manual) Basophils # (Manual) PT INR APTT Sodium Potassium Chloride Carbon Dioxide BUN Creatinine Glucose POC Glucose 41 L 46 L 57 L Lactic Acid Iron Ammonia CK-MB (CK-2) CK-MB (CK-2) Rel Index Total Protein Albumin Salicylates Acetaminophen Crossmatch 10/03/20 10/04/20 10/04/20 21:32 01:04 01:11 WBC RBC Hgb 9.6 L D Hct 28.3 L D MCV MCH MCHC RDW Plt Count Seg Neutrophils % Seg Neuts % (Manual) Lymphocytes % (Manual) Monocytes % (Manual) Basophils % (Manual) Nucleated RBC % Seg Neutrophils # Man Lymphocytes # (Manual) Monocytes # (Manual) Basophils # (Manual) PT INR APTT Sodium Potassium Chloride Carbon Dioxide BUN Creatinine Glucose POC Glucose 65 L 51 L Lactic Acid Iron Ammonia CK-MB (CK-2) CK-MB (CK-2) Rel Index Total Protein Albumin Salicylates Acetaminophen Crossmatch 10/04/20 10/04/20 10/04/20 05:59 05:59 15:10 WBC 13.4 H RBC Hgb 9.9 L 10.1 L Hct 32.0 L 31.8 L MCV 76 L MCH 24 L MCHC 31 L RDW 31.3 H Plt Count Seg Neutrophils % Seg Neuts % (Manual) 86.0 H Lymphocytes % (Manual) 6.0 L Monocytes % (Manual) 8.0 H Basophils % (Manual) Nucleated RBC % 2.0 H Seg Neutrophils # Man 11.5 H Lymphocytes # (Manual) 0.8 L Monocytes # (Manual) 1.1 H Basophils # (Manual) PT INR APTT Sodium 136 L Potassium 3.5 L Chloride Carbon Dioxide 19 L D BUN Creatinine Glucose POC Glucose Lactic Acid Iron Ammonia CK-MB (CK-2) CK-MB (CK-2) Rel Index Total Protein Albumin 2.6 L Salicylates Acetaminophen Crossmatch 10/04/20 10/04/20 10/05/20 16:28 22:33 04:43 WBC RBC Hgb 10.5 L Hct 32.5 L MCV MCH MCHC RDW Plt Count Seg Neutrophils % Seg Neuts % (Manual) Lymphocytes % (Manual) Monocytes % (Manual) Basophils % (Manual) Nucleated RBC % Seg Neutrophils # Man Lymphocytes # (Manual) Monocytes # (Manual) Basophils # (Manual) PT INR APTT Sodium Potassium Chloride Carbon Dioxide BUN Creatinine Glucose POC Glucose 66 L 113 H Lactic Acid Iron Ammonia CK-MB (CK-2) CK-MB (CK-2) Rel Index Total Protein Albumin Salicylates Acetaminophen Crossmatch 10/05/20 10/05/20 10/05/20 05:00 09:42 11:57 WBC RBC Hgb 9.8 L Hct 30.5 L MCV 74 L MCH 24 L MCHC RDW 31.6 H Plt Count Seg Neutrophils % Seg Neuts % (Manual) Lymphocytes % (Manual) Monocytes % (Manual) Basophils % (Manual) Nucleated RBC % Seg Neutrophils # Man Lymphocytes # (Manual) Monocytes # (Manual) Basophils # (Manual) PT INR APTT Sodium 132 L Potassium 3.5 L Chloride Carbon Dioxide 19 L BUN Creatinine 0.7 L Glucose POC Glucose 129 H Lactic Acid Iron Ammonia CK-MB (CK-2) CK-MB (CK-2) Rel Index Total Protein Albumin Salicylates Acetaminophen Crossmatch 10/05/20 10/05/20 10/06/20 16:47 21:51 05:07 WBC RBC Hgb 9.4 L Hct 30.1 L MCV 76 L MCH 24 L MCHC 31 L RDW 31.1 H Plt Count Seg Neutrophils % Seg Neuts % (Manual) Lymphocytes % (Manual) Monocytes % (Manual) Basophils % (Manual) Nucleated RBC % Seg Neutrophils # Man Lymphocytes # (Manual) Monocytes # (Manual) Basophils # (Manual) PT INR APTT Sodium Potassium Chloride Carbon Dioxide BUN Creatinine Glucose POC Glucose 132 H 115 H Lactic Acid Iron Ammonia CK-MB (CK-2) CK-MB (CK-2) Rel Index Total Protein Albumin Salicylates Acetaminophen Crossmatch 10/06/20 10/06/20 10/06/20 05:07 15:37 21:01 WBC RBC Hgb Hct MCV MCH MCHC RDW Plt Count Seg Neutrophils % Seg Neuts % (Manual) Lymphocytes % (Manual) Monocytes % (Manual) Basophils % (Manual) Nucleated RBC % Seg Neutrophils # Man Lymphocytes # (Manual) Monocytes # (Manual) Basophils # (Manual) PT INR APTT Sodium 133 L Potassium 3.5 L Chloride Carbon Dioxide 21 L BUN Creatinine 0.6 L Glucose 105 H POC Glucose 136 H 108 H Lactic Acid Iron Ammonia CK-MB (CK-2) CK-MB (CK-2) Rel Index Total Protein Albumin Salicylates Acetaminophen Crossmatch 10/07/20 10/07/20 10/07/20 04:52 04:52 06:07 WBC RBC Hgb 9.6 L Hct 29.4 L MCV 73 L MCH 24 L MCHC RDW 32.2 H Plt Count Seg Neutrophils % Seg Neuts % (Manual) Lymphocytes % (Manual) Monocytes % (Manual) Basophils % (Manual) Nucleated RBC % Seg Neutrophils # Man Lymphocytes # (Manual) Monocytes # (Manual) Basophils # (Manual) PT INR APTT Sodium 128 L Potassium Chloride Carbon Dioxide 20 L BUN Creatinine 0.7 L Glucose POC Glucose 110 H Lactic Acid Iron Ammonia CK-MB (CK-2) CK-MB (CK-2) Rel Index Total Protein Albumin Salicylates Acetaminophen Crossmatch 10/07/20 10/07/20 10/07/20 17:09 18:53 20:35 WBC RBC Hgb Hct MCV MCH MCHC RDW Plt Count Seg Neutrophils % Seg Neuts % (Manual) Lymphocytes % (Manual) Monocytes % (Manual) Basophils % (Manual) Nucleated RBC % Seg Neutrophils # Man Lymphocytes # (Manual) Monocytes # (Manual) Basophils # (Manual) PT INR APTT Sodium Potassium Chloride Carbon Dioxide BUN Creatinine Glucose POC Glucose 67 L 66 L 62 L Lactic Acid Iron Ammonia CK-MB (CK-2) CK-MB (CK-2) Rel Index Total Protein Albumin Salicylates Acetaminophen Crossmatch 10/07/20 10/08/20 10/08/20 21:55 05:00 05:00 WBC RBC Hgb 9.6 L Hct 29.4 L MCV 73 L MCH 24 L MCHC RDW 32.4 H Plt Count Seg Neutrophils % 80.6 H Seg Neuts % (Manual) 88.0 H Lymphocytes % (Manual) 9.0 L Monocytes % (Manual) Basophils % (Manual) Nucleated RBC % 5.0 H Seg Neutrophils # Man Lymphocytes # (Manual) 0.5 L Monocytes # (Manual) Basophils # (Manual) PT INR APTT Sodium 126 L Potassium Chloride 96.3 L Carbon Dioxide BUN Creatinine 0.7 L Glucose POC Glucose 132 H Lactic Acid Iron Ammonia CK-MB (CK-2) CK-MB (CK-2) Rel Index Total Protein Albumin Salicylates Acetaminophen Crossmatch 08/10/09/20 10/09/20 22:26 01:36 02:22 WBC RBC Hgb Hct MCV MCH MCHC RDW Plt Count Seg Neutrophils % Seg Neuts % (Manual) Lymphocytes % (Manual) Monocytes % (Manual) Basophils % (Manual) Nucleated RBC % Seg Neutrophils # Man Lymphocytes # (Manual) Monocytes # (Manual) Basophils # (Manual) PT INR APTT Sodium Potassium Chloride Carbon Dioxide BUN Creatinine Glucose POC Glucose 63 L 62 L 151 H Lactic Acid Iron Ammonia CK-MB (CK-2) CK-MB (CK-2) Rel Index Total Protein Albumin Salicylates Acetaminophen Crossmatch 10/09/20 10/09/20 10/09/20 05:07 05:42 06:32 WBC RBC Hgb 10.3 L Hct 33.8 L MCV 77 L MCH 24 L MCHC 31 L RDW 33.6 H Plt Count 137 L Seg Neutrophils % Seg Neuts % (Manual) 89.0 H Lymphocytes % (Manual) 5.0 L Monocytes % (Manual) Basophils % (Manual) Nucleated RBC % 4.0 H Seg Neutrophils # Man 9.4 H Lymphocytes # (Manual) 0.5 L Monocytes # (Manual) Basophils # (Manual) PT INR APTT Sodium 126 L Potassium Chloride 97.8 L Carbon Dioxide 20 L BUN Creatinine Glucose 58 L POC Glucose 48 L Lactic Acid Iron Ammonia CK-MB (CK-2) CK-MB (CK-2) Rel Index Total Protein Albumin Salicylates Acetaminophen Crossmatch 10/09/20 10/10/20 10/10/20 06:35 00:21 05:53 WBC RBC Hgb Hct MCV MCH MCHC RDW Plt Count Seg Neutrophils % Seg Neuts % (Manual) Lymphocytes % (Manual) Monocytes % (Manual) Basophils % (Manual) Nucleated RBC % Seg Neutrophils # Man Lymphocytes # (Manual) Monocytes # (Manual) Basophils # (Manual) PT INR APTT Sodium Potassium Chloride Carbon Dioxide BUN Creatinine Glucose POC Glucose 106 H 153 H 34 L Lactic Acid Iron Ammonia CK-MB (CK-2) CK-MB (CK-2) Rel Index Total Protein Albumin Salicylates Acetaminophen Crossmatch 10/10/20 10/10/20 10/10/20 10:58 10:58 12:39 WBC RBC Hgb 10.3 L Hct 33.9 L MCV 78 L MCH 24 L MCHC 30 L RDW 33.2 H Plt Count 135 L Seg Neutrophils % Seg Neuts % (Manual) 74.0 H Lymphocytes % (Manual) 12.0 L Monocytes % (Manual) 9.0 H Basophils % (Manual) 2.0 H Nucleated RBC % Seg Neutrophils # Man Lymphocytes # (Manual) 1.0 L Monocytes # (Manual) Basophils # (Manual) 0.2 H PT INR APTT Sodium 127 L Potassium Chloride Carbon Dioxide 20 L BUN 23 H Creatinine Glucose POC Glucose 108 H Lactic Acid Iron Ammonia CK-MB (CK-2) CK-MB (CK-2) Rel Index Total Protein Albumin Salicylates Acetaminophen Crossmatch 10/10/20 10/11/20 10/11/20 16:51 04:56 05:51 WBC RBC Hgb 9.5 L Hct 31.3 L MCV 77 L MCH 23 L MCHC 30 L RDW 33.7 H Plt Count Seg Neutrophils % Seg Neuts % (Manual) 95.0 H Lymphocytes % (Manual) 2.0 L Monocytes % (Manual) Basophils % (Manual) Nucleated RBC % 3.0 H Seg Neutrophils # Man 8.0 H Lymphocytes # (Manual) 0.2 L Monocytes # (Manual) Basophils # (Manual) PT INR APTT Sodium Potassium Chloride Carbon Dioxide BUN Creatinine Glucose POC Glucose 142 H 124 H Lactic Acid Iron Ammonia CK-MB (CK-2) CK-MB (CK-2) Rel Index Total Protein Albumin Salicylates Acetaminophen Crossmatch 10/11/20 10/11/20 10/12/20 05:51 11:56 04:53 WBC RBC Hgb 9.5 L Hct 30.0 L MCV 75 L MCH 24 L MCHC RDW 32.8 H Plt Count 136 L Seg Neutrophils % Seg Neuts % (Manual) 89.0 H Lymphocytes % (Manual) 5.0 L Monocytes % (Manual) Basophils % (Manual) Nucleated RBC % Seg Neutrophils # Man Lymphocytes # (Manual) 0.4 L Monocytes # (Manual) Basophils # (Manual) PT INR APTT Sodium 130 L Potassium Chloride Carbon Dioxide 18 L BUN 23 H Creatinine Glucose POC Glucose 126 H Lactic Acid Iron Ammonia CK-MB (CK-2) CK-MB (CK-2) Rel Index Total Protein Albumin Salicylates Acetaminophen Crossmatch 10/12/20 10/12/20 10/12/20 04:53 11:42 23:49 WBC RBC Hgb Hct MCV MCH MCHC RDW Plt Count Seg Neutrophils % Seg Neuts % (Manual) Lymphocytes % (Manual) Monocytes % (Manual) Basophils % (Manual) Nucleated RBC % Seg Neutrophils # Man Lymphocytes # (Manual) Monocytes # (Manual) Basophils # (Manual) PT INR APTT Sodium 130 L Potassium Chloride Carbon Dioxide 18 L BUN 25 H Creatinine Glucose 74 L POC Glucose 59 L 51 L Lactic Acid Iron Ammonia CK-MB (CK-2) CK-MB (CK-2) Rel Index Total Protein Albumin Salicylates Acetaminophen Crossmatch 10/13/20 10/13/20 10/13/20 03:17 05:24 05:24 WBC RBC Hgb 9.4 L Hct 29.4 L MCV 75 L MCH 24 L MCHC RDW 32.9 H Plt Count Seg Neutrophils % Seg Neuts % (Manual) Lymphocytes % (Manual) Monocytes % (Manual) Basophils % (Manual) Nucleated RBC % Seg Neutrophils # Man Lymphocytes # (Manual) Monocytes # (Manual) Basophils # (Manual) PT INR APTT Sodium 132 L Potassium Chloride Carbon Dioxide 17 L BUN 26 H Creatinine 1.6 H Glucose POC Glucose 67 L Lactic Acid Iron Ammonia CK-MB (CK-2) CK-MB (CK-2) Rel Index Total Protein Albumin Salicylates Acetaminophen Crossmatch 10/13/20 11:36 WBC RBC Hgb Hct MCV MCH MCHC RDW Plt Count Seg Neutrophils % Seg Neuts % (Manual) Lymphocytes % (Manual) Monocytes % (Manual) Basophils % (Manual) Nucleated RBC % Seg Neutrophils # Man Lymphocytes # (Manual) Monocytes # (Manual) Basophils # (Manual) PT INR APTT Sodium Potassium Chloride Carbon Dioxide BUN Creatinine Glucose POC Glucose 58 L Lactic Acid Iron Ammonia CK-MB (CK-2) CK-MB (CK-2) Rel Index Total Protein Albumin Salicylates Acetaminophen Crossmatch
--- NOTE | 2020-10-13 12:26 | Progress Note ---
Assessment and Plan 1. Iron deficient anemia - etiology unclear. Discussed goals of care with pt's daughter, Mignon Singh. Given need for PEG, would want to evaluate for cause of anemia first. She wishes to proceed. -Colon/EGD -phone [phone], Mignon Singh. 2. 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 - will plan on PEG after clearing anemia. - pt's daughter wishes to proceed. - meantime, proceed with tube feeding via NGT Discussed with Dr. Rosa. Subjective Date of service: 10/13/20 Principal diagnosis: hyponatremia, encephalopathy Interval history: Pt seen by daughter yesterday, who was in tears and had lots of questions about his mental status and overall progress. Currently, no gurgling airway noises. Not responsive to voice. Objective - Constitutional Vitals: Vital Signs - 12hr 10/13/20 10/13/20 10/13/20 02:00 04:19 05:00 Temperature 92.3 F L Pulse Rate 88 79 Respiratory 22 18 Rate Blood Pressure 129/86 O2 Sat by Pulse 98 100 Oximetry 10/13/20 10/13/20 08:21 10:47 Temperature Pulse Rate 78 78 Respiratory 24 28 H Rate Blood Pressure 131/96 153/99 O2 Sat by Pulse 98 94 Oximetry General appearance: Present: other (Not responsive to voice or touch. NG tube in place. Laying with mouth open and breathing through mouth.) - Respiratory Respiratory effort: normal Respiratory: bilateral: CTA (Coarse BS bilaterally anteriorly) - Cardiovascular Rhythm: regular Heart Sounds: Present: S1 & S2 - Gastrointestinal General gastrointestinal: Present: soft, non-tender - Labs CBC & Chem 7: 10/13/20 05:24 10/13/20 05:24 Labs: Abnormal lab results 10/12/20 10/12/20 10/13/20 Range/Units 04:53 23:49 03:17 Hgb (11.8-15.2) gm/dl Hct (35.5-45.6) % MCV (84-94) fl MCH (28-32) pg RDW (13.2-15.2) % Plt Count 136 L (140-440) K/mm3 Seg Neuts % (Manual) 89.0 H (40.0-70.0) % Lymphocytes % (Manual) 5.0 L (13.4-35.0) % Lymphocytes # (Manual) 0.4 L (1.2-5.4) K/mm3 Sodium (137-145) mmol/L Carbon Dioxide (22-30) mmol/L BUN (9-20) mg/dL Creatinine (0.8-1.3) mg/dL POC Glucose 51 L 67 L (70-105) mg/dL 10/13/20 10/13/20 10/13/20 Range/Units 05:24 05:24 11:36 Hgb 9.4 L (11.8-15.2) gm/dl Hct 29.4 L (35.5-45.6) % MCV 75 L (84-94) fl MCH 24 L (28-32) pg RDW 32.9 H (13.2-15.2) % Plt Count (140-440) K/mm3 Seg Neuts % (Manual) (40.0-70.0) % Lymphocytes % (Manual) (13.4-35.0) % Lymphocytes # (Manual) (1.2-5.4) K/mm3 Sodium 132 L (137-145) mmol/L Carbon Dioxide 17 L (22-30) mmol/L BUN 26 H (9-20) mg/dL Creatinine 1.6 H (0.8-1.3) mg/dL POC Glucose 58 L (70-105) mg/dL Medications & Allergies - Medications Allergies/Adverse Reactions: Allergies No Known Allergies Allergy (Unverified 10/03/20 12:27) Home Medications: Home Medications Medication Instructions Recorded Confirmed Last Taken Type Unobtainable 10/10/20 10/10/20 Unknown History Active Medications: Generic Name Dose Route Start Last Admin Trade Name Freq PRN Reason Stop Dose Admin Acetaminophen 650 mg 10/03/20 02:10 10/06/20 15:28 Acetaminophen 325 Mg Tab PO 650 mg Q4H PRN Administration Pain MILD(1-3)/Fever >100.5/ROMERO Al Hydrox/Mg Hydrox/Simethicone 30 ml 10/03/20 02:10 Alum-Mag Hydroxide-Simethicone [id number]/5ml Oral Liqd 30 Ml PO Q4H PRN Indigestion Lipase/Protease/Amylase 1 each 10/03/20 16:51 Lipase 10,500/Protease 25,000/Amylase 43,750 (Units) Dr Reis FEEDTUBE PRN PRN For Clogged Feeding Tube Dextrose 0 ml 10/02/20 22:49 10/13/20 11:53 Dextrose 50% In Water (25gm) 50 Ml Syringe IV 50 ml Q30MIN PRN Administration Hypoglycemia Protocol Ferrous Sulfate 325 mg 10/03/20 10:00 10/13/20 10:13 Ferrous Sulfate 325 Mg Tab PO Not Given QDAY JOSE Folic Acid 1 mg 10/03/20 10:00 10/13/20 10:13 Folic Acid 1 Mg Tab PO Not Given QDAY JOSE Sodium Chloride 153.8 meq/ 1,038.45 mls @ 100 mls/hr 10/09/20 13:00 10/13/20 03:18 Dextrose IV 100 mls/hr DIRECT JOSE Administration Levetiracetam 250 mg/ Dextrose 102.5 mls @ 400 mls/hr 10/10/20 22:00 10/13/20 10:12 IV 400 mls/hr Q12HR JOSE Administration Thiamine HCl 300 mg/ Sodium 53 mls @ 100 mls/hr 10/11/20 14:00 10/13/20 11:00 Chloride IV 10/15/20 23:59 100 mls/hr QDAY JOSE Administration Magnesium Hydroxide 30 ml 10/03/20 02:10 Magnesium Hydroxide (Mom) Oral Liqd Udc PO Q4H PRN Constipation Metoclopramide HCl 10 mg 10/03/20 02:10 Metoclopramide 10 Mg/2 Ml Inj IV Q6H PRN Nausea And Vomiting Multivitamins 1 each 10/03/20 10:00 10/13/20 10:14 Multivitamins ,Therapeutic Tab PO Not Given QDAY JOSE Ondansetron HCl 4 mg 10/03/20 02:10 10/07/20 23:19 Ondansetron 4 Mg/2 Ml Inj IV 4 mg Q8H PRN Administration Nausea And Vomiting Oxycodone/Acetaminophen 1 tab 10/03/20 02:10 Oxycodone /Acetaminophen 5-325mg Tab PO Q6H PRN Pain, Moderate (4-6) Pantoprazole Sodium 40 mg 10/04/20 15:00 10/13/20 10:13 Pantoprazole 40 Mg Inj IV 40 mg QDAY JOSE Administration Promethazine HCl 25 mg 10/03/20 02:10 Promethazine 25 Mg Rect Supp CO Q6H PRN N/V IF NPO AND NO IV ACCESS Senna 8.6 mg 10/03/20 02:10 Sennosides 8.6 Mg Tab PO Q12HR PRN Constipation Simple Syrup 15 ml 10/03/20 16:51 Simple Syrup 15 Ml FEEDTUBE PRN PRN Hypoglycemia Simple Syrup 30 ml 10/03/20 16:51 Simple Syrup 15 Ml FEEDTUBE PRN PRN Hypoglycemia Sodium Bicarbonate 325 mg 10/03/20 16:51 Sodium Bicarbonate 325 Mg Tab FEEDTUBE PRN PRN For Clogged Feeding Tube Sodium Chloride 2 gm 10/09/20 12:00 10/13/20 10:13 Sodium Chloride 1 Gm Tab PO Not Given TID JOSE HEART Score - HEART Score Troponin: Troponin T < 0.010 ng/mL (0.00-0.029) 10/02/20 23:17
[2020-10-13 15:15] LABS: Anisocytosis 3+; Band Neutrophils # (Manual) 0.5 K/mm3; Hypochromasia 1+; Poikilocytosis 3+; Spherocytes 1+; Total Cells Counted 100
[2020-10-13 15:16] LABS: Burr Cells 3+; Platelet Estimate Consistent w Auto; Target Cells 1+; Tear Drop Cells 1+; Toxic Granulation 1+; Toxic Vacuolation 3+
[2020-10-13 15:38] LABS: Platelet Count 95 K/mm3 (140-440)
[2020-10-14] MEDS: WATER IV SCH ×2 (02:30→15:36)
[2020-10-14] MEDS: SODIUM CHLORIDE IV SCH ×2 (02:30→15:36)
[2020-10-14] MEDS: DEXTROSE 10% IV SCH ×2 (02:30→15:36)
[2020-10-14 04:58] LABS: Creatinine,Urine 144.2 mg/dL (0.1-20.0); Protein/Creatinine Ratio,Urine 0.67
[2020-10-14 05:54] LABS: Hematocrit 29.3 % (35.5-45.6); Hemoglobin 9.3 gm/dl (11.8-15.2); Mean Corpuscular HGB Conc 32 % (32-34); Mean Corpuscular Volume 76 fl (84-94); Red Blood Count 3.88 M/mm3 (3.65-5.03)
[2020-10-14 05:55] LABS: Platelet Count 83 K/mm3 (140-440); Red Cell Distribution Width 33.8 % (13.2-15.2)
[2020-10-14 06:05] LABS: Calcium 8.5 mg/dL (8.4-10.2)
[2020-10-14 06:33] LABS: Anisocytosis 3+; Band Neutrophils # (Manual) 0.7 K/mm3; Hypochromasia 1+; Poikilocytosis 2+; Total Cells Counted 100
[2020-10-14 06:34] LABS: Burr Cells 2+; Ovalocytes Few; Platelet Estimate Consistent w Auto; Schistocytes Rare; Target Cells Few; Tear Drop Cells Few
[2020-10-14] MEDS: DEXTROSE 50% IN WATER (25GM) 50 ML SYRINGE IV PRN ×2 (07:22→12:30)
--- NOTE | 2020-10-14 09:27 | Progress Note ---
Assessment and Plan Assessment and plan: -- Acute encephalopathy CT angio of the head that is a significant narrowing seen in both posterior cere bral arteries and no signs of large vessel CT of the head no acute finding but showed a cerebral atrophy with suspicious atrophy and atherosclerotic calcification within the distal right middle cereb ral artery. MRI brain without any acute findings Neurology consulted, will follow EEG -cannot r/o acute seizure with postictal state --Left-sided hemiparesis with significant aphasia Placed on stroke protocol, neurology following, failed swallow eval MRI brain without any new findings, EEG ordered and pending Aspirin due to severe anemia, will initiate Lipitor when able to tolerate tube feeding -- Hypothermia, resolved Monitor body temperature Applied bed hugger -- Pulmonary infiltrate in right lung on CXR COVID-19 test is negative Likely secondary to pneumonia Start empiric antibiotics Rocephin and azithromycin -- Atherosclerotic cerebrovascular disease Safety and fall precaution at all times PT OT consult follow-up with recommendation for discharge placement --Severe anemia -possible GI bleed? 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 Patient also noted with hemoglobin of 5.8, received 1 unit of packed RBC and ordered for tomorrow Neuro is consulted, Covid test is negative We will check stool for occult blood MRI brain ordered we will follow Will hold any oral medicine until cleared by speech or passes the bedside swallow eval Patient noted to have severe hypoglycemic, will place on D10W Follow H&H and BMP Continue current management plan as dictated in the HPI 10/04/20: no acute findings in MRI, pending EEG, s/p 3 units PRBC transfusion. follow speech eval, TF for now, h/h stable, GI consulted - follow recommendation. 10/05/20 Patient with acute encephalopathy, severe anemia s/p PRBC transfusion. GI following. Hgb 9.8 today. Will repeat in am. Left sided weakness. MRI negative for stroke. Neurology following. 10/06/20 Patient with encephalopathy, severe anemia s/p PRBC transfusion. Hgb 9.4 today. Patient has left sided weakness but MRI neg. Patient needs PEG tube. Will talk with family. Hypokalemia. Replace Q6h X 2. Check Mg 10/07/20 Patient with encephalopathy, severe anemia s/p PRBC transfusion. Hgb 9.6 today. Patient has left sided weakness but MRI neg. Patient needs PEG tube. Will talk with family. Hyponatremia of 128. This may be due to D10% he was on prior to NG tube. Stopped 10% Dextrose. Consulted Nephrology 10/08/20 Patient with encephalopathy, severe anemia s/p PRBC transfusion. Hgb 9.6 today. Patient has left sided weakness but MRI neg. Patient needs PEG tube. Hyponatremia worse today 126. This is due to D10% resumed last night because of hypoglycemia. I discussed with Dr. Herrera. Stop 10%Dextrose. Start D5NS Spoke to daughter, Cindy Singh, yesterday and gave update. She wants PEG tube placed. Discussed plan with PAKO Chambers. He wants to do upper and lower endoscopy to evaluate anemia, before PEG tube 10/09/20 Patient with encephalopathy, severe anemia s/p PRBC transfusion. Hgb 10.3 today. Patient has left sided weakness but MRI neg. Patient needs PEG tube. Hyponatremia still present Na 126 today. This is due to D10% resumed again last night because of hypoglycemia. Nephrology had recommended D5NS but 10% Dextrose restarted overnight because of hypoglycemia. Nurses unable to place NG tube. I discussed with Dr. Otero today and he will do. Spoke to daughter, Cindy Singh, yesterday and gave update. She wants PEG tube placed. Discussed plan with PAKO Chambers. He wants to do upper and lower endoscopy to evaluate anemia, before PEG tube Today Na still 126. I discussed with Dr. Herrera and he recommended D10NS. I called Pharmacy. They will mix special D10NS drip. Patient had bilateral pneumonia on CXR therefore started iv Antibiotics, blood cultures. yesterday. Consulted ID 10/10/2020. Patient remains encephalopathic with hemoglobin stabilizing yesterday. Recheck H&H. Patient with left-sided weakness but MRI negative. Fluoroscopic NG tube placement completed yesterday. Await GI to perform EGD and colonoscopy. Follow-up hyponatremia with BMP results. Dr. Aldrich Spoke to daughter, Cindy Singh, and gave update. Daughter wants PEG tube placed. Continue IV antibiotics for bilateral pneumonia. ID consulted. Follow-up procalcitonin levels. 10/11/2020. Patient's hemoglobin remained stable today at 9.5. However, patient noted to be hypotensive with systolic blood pressure of 83. Patient received NS 250 cc bolus with improvement of blood pressure systolically to 123. GI plans to perform EGD/colonoscopy tomorrow. Hyponatremia improving. Start IV fluid of normal saline at 75 cc an hour x1 L 10/12/2020. Patient noted to have some gurgling of the upper airway. NG tube was placed to low intermittent suction. Check chest x-ray and KUB to rule out aspiration and/or ileus. Continue to monitor. H/H remained stable. ID stopped antibiotics due to normal procalcitonin. Speech evaluation 10/13/2020. Patient remains encephalopathic. I discussed overall mental status with the daughter yesterday and updated her with plan of care. Neurology reports: CT angio of the head that is a significant narrowing seen in both posterior c erebral arteries - and no signs of large vessel -CT of the head no acute finding but showed a cerebral atrophy with suspicious atrophy and atherosclerotic calcification within the distal right middle cerebral artery. -MRI brain without any acute findings - EEG completed yesterday remarkable for diffuse slowing 3-4 Hz and with occassional triphasic waves , no epileptiform discharges is noted -- full report to follow -Repeat MRI brain showed no acute finding Keppra was decreased to 250 mg IV twice daily and thiamine was added x3 days. No LP for now due to lack of any inflammatory findings. Repeat EEG per neurology. Sodium level has improved. Serum creatinine has increased to 1.6 today. Avoid nephrotoxic agents and monitor I/O's daily. Salt tabs 2 g 3 times daily per nephrology 10/14/2020. Patient remains encephalopathic. MRI, EEG and CT results noted above. Continue supportive care. Defer to neurology recommendations regarding mental status/encephalopathy. Continue salt tabs per nephrology. Follow-up BMP. Avoid nephrotoxic agents and monitor I/O's daily. Continue NG tube feedings. PEG placement per GI. History Interval history: Patient is responsive only to pain. Patient does not follow commands or respond to verbal stimuli. Hospitalist Physical - Constitutional Vitals: Temp Pulse Resp BP Pulse Ox 97.9 F 68 20 120/81 95 10/14/20 07:46 10/14/20 07:46 10/14/20 07:46 10/14/20 07:46 10/14/20 07:46 General appearance: Present: other (Not responsive to voice or touch. NG tube in place. Laying with mouth open and breathing through mouth.) - EENT Eyes: Present: PERRL, EOM intact ENT: hearing intact, clear oral mucosa, dentition normal - Neck Neck: Present: supple, normal ROM - Respiratory Respiratory effort: normal Respiratory: bilateral: CTA - Cardiovascular Rhythm: regular Heart Sounds: Present: S1 & S2. Absent: gallop, rub - Extremities Extremities: no ischemia, No edema, Full ROM - Abdominal General gastrointestinal: soft, non-tender, non-distended, normal bowel sounds - Integumentary Integumentary: Present: clear, warm, dry - Neurologic Neurologic: other (Encephalopathic) HEART Score - HEART Score Troponin: Troponin T < 0.010 ng/mL (0.00-0.029) 10/02/20 23:17 Results - Labs CBC & Chem 7: 10/14/20 05:04 10/14/20 05:04 Labs: Laboratory Last Values WBC 17.4 K/mm3 (4.5-11.0) H 10/14/20 05:04 RBC 3.88 M/mm3 (3.65-5.03) 10/14/20 05:04 Hgb 9.3 gm/dl (11.8-15.2) L 10/14/20 05:04 Hct 29.3 % (35.5-45.6) L 10/14/20 05:04 MCV 76 fl (84-94) L 10/14/20 05:04 MCH 24 pg (28-32) L 10/14/20 05:04 MCHC 32 % (32-34) 10/14/20 05:04 RDW 33.8 % (13.2-15.2) H 10/14/20 05:04 Plt Count 83 K/mm3 (140-440) L 10/14/20 05:04 Lymph % (Auto) Sock Lining Stitcher 10/10/20 10:58 Hudson % (Auto) Sock Lining Stitcher 10/10/20 10:58 Eos % (Auto) Sock Lining Stitcher 10/10/20 10:58 Baso % (Auto) Sock Lining Stitcher 10/10/20 10:58 Lymph # (Auto) Sock Lining Stitcher 10/10/20 10:58 Hudson # (Auto) Sock Lining Stitcher 10/10/20 10:58 Eos # (Auto) Sock Lining Stitcher 10/10/20 10:58 Baso # (Auto) Sock Lining Stitcher 10/10/20 10:58 Add Manual Diff Complete 10/14/20 05:04 Total Counted 100 10/14/20 05:04 Seg Neutrophils % Sock Lining Stitcher 10/10/20 10:58 Seg Neuts % (Manual) 89.0 % (40.0-70.0) H 10/14/20 05:04 Band Neutrophils % 4.0 % 10/14/20 05:04 Lymphocytes % (Manual) 4.0 % (13.4-35.0) L 10/14/20 05:04 Monocytes % (Manual) 3.0 % (0.0-7.3) 10/14/20 05:04 Eosinophils % (Manual) 1.0 % (0.0-4.3) 10/13/20 05:24 Basophils % (Manual) 2.0 % (0.0-1.8) H 10/10/20 10:58 Nucleated RBC % 1.0 % (0.0-0.9) H 10/14/20 05:04 Seg Neutrophils # Sock Lining Stitcher 10/10/20 10:58 Seg Neutrophils # Man 15.5 K/mm3 (1.8-7.7) H 10/14/20 05:04 Band Neutrophils # 0.7 K/mm3 10/14/20 05:04 Lymphocytes # (Manual) 0.7 K/mm3 (1.2-5.4) L 10/14/20 05:04 Abs React Lymphs (Man) 0.0 K/mm3 10/14/20 05:04 Monocytes # (Manual) 0.5 K/mm3 (0.0-0.8) 10/14/20 05:04 Eosinophils # (Manual) 0.0 K/mm3 (0.0-0.4) 10/14/20 05:04 Basophils # (Manual) 0.0 K/mm3 (0.0-0.1) 10/14/20 05:04 Metamyelocytes # 0.0 K/mm3 10/14/20 05:04 Myelocytes # 0.0 K/mm3 10/14/20 05:04 Promyelocytes # 0.0 K/mm3 10/14/20 05:04 Blast Cells # 0.0 K/mm3 10/14/20 05:04 WBC Morphology Not Reportable 10/14/20 05:04 Hypersegmented Neuts Not Reportable 10/14/20 05:04 Hyposegmented Neuts Not Reportable 10/14/20 05:04 Hypogranular Neuts Not Reportable 10/14/20 05:04 Smudge Cells Not Reportable 10/14/20 05:04 Toxic Granulation Not Reportable 10/14/20 05:04 Toxic Vacuolation Not Reportable 10/14/20 05:04 Dohle Bodies Not Reportable 10/14/20 05:04 Pelger-Huet Anomaly Not Reportable 10/14/20 05:04 Andrés Rods Not Reportable 10/14/20 05:04 Platelet Estimate Consistent w auto 10/14/20 05:04 Clumped Platelets Not Reportable 10/14/20 05:04 Plt Clumps, EDTA Not Reportable 10/14/20 05:04 Large Platelets Not Reportable 10/14/20 05:04 Giant Platelets Not Reportable 10/14/20 05:04 Platelet Satelliting Not Reportable 10/14/20 05:04 Plt Morphology Comment Not Reportable 10/14/20 05:04 RBC Morphology Not Reportable 10/14/20 05:04 Dimorphic RBCs Not Reportable 10/14/20 05:04 Polychromasia Not Reportable 10/14/20 05:04 Hypochromasia 1+ 10/14/20 05:04 Poikilocytosis 2+ 10/14/20 05:04 Anisocytosis 3+ 10/14/20 05:04 Microcytosis Not Reportable 10/14/20 05:04 Macrocytosis Not Reportable 10/14/20 05:04 Spherocytes Not Reportable 10/14/20 05:04 Pappenheimer Bodies Not Reportable 10/14/20 05:04 Sickle Cells Not Reportable 10/14/20 05:04 Target Cells Few 10/14/20 05:04 Tear Drop Cells Few 10/14/20 05:04 Ovalocytes Few 10/14/20 05:04 Helmet Cells Not Reportable 10/14/20 05:04 Freedman-Bennington Bodies Not Reportable 10/14/20 05:04 [place] Rings Not Reportable 10/14/20 05:04 Denison Cells 2+ 10/14/20 05:04 Bite Cells Not Reportable 10/14/20 05:04 Crenated Cell Not Reportable 10/14/20 05:04 Elliptocytes Not Reportable 10/14/20 05:04 Acanthocytes (Spur) Not Reportable 10/14/20 05:04 Rouleaux Not Reportable 10/14/20 05:04 Hemoglobin C Crystals Not Reportable 10/14/20 05:04 Schistocytes Rare 10/14/20 05:04 Malaria parasites Not Reportable 10/14/20 05:04 Dereck Bodies Not Reportable 10/14/20 05:04 Hem Pathologist Commnt No 10/14/20 05:04 PT 20.8 Sec. (12.2-14.9) H 10/02/20 23:17 INR 1.74 (0.87-1.13) H 10/02/20 23:17 APTT 57.6 Sec. (24.2-36.6) H 10/02/20 23:17 Thrombin Time 17.8 Sec. (15.1-19.6) 10/02/20 23:17 Sodium 132 mmol/L (137-145) L 10/14/20 05:04 Potassium 5.3 mmol/L (3.6-5.0) H 10/14/20 05:04 Chloride 108.7 mmol/L (98-107) H 10/14/20 05:04 Carbon Dioxide 15 mmol/L (22-30) L 10/14/20 05:04 Anion Gap 14 mmol/L 10/14/20 05:04 BUN 25 mg/dL (9-20) H 10/14/20 05:04 Creatinine 1.5 mg/dL (0.8-1.3) H 10/14/20 05:04 Estimated GFR 55 ml/min 10/14/20 05:04 BUN/Creatinine Ratio 17 % 10/14/20 05:04 Glucose 86 mg/dL (75-100) 10/14/20 05:04 POC Glucose 120 mg/dL (70-105) H 10/14/20 08:19 Hemoglobin A1c 5.2 % (4-6) 10/03/20 05:57 Osmolality 267 Mosm/kg 10/07/20 13:54 Lactic Acid 1.50 mmol/L (0.7-2.0) 10/03/20 04:43 Calcium 8.5 mg/dL (8.4-10.2) 10/14/20 05:04 Phosphorus 3.00 mg/dL (2.5-4.5) 10/06/20 05:07 Magnesium 1.90 mg/dL (1.7-2.3) 10/06/20 05:07 Iron 42 ug/dL (49-181) L 10/03/20 05:57 TIBC 305 mcg/dL (250-450) 10/03/20 05:57 Total Bilirubin 0.60 mg/dL (0.1-1.2) 10/04/20 05:59 AST 26 units/L (5-40) 10/04/20 05:59 ALT 15 units/L (7-56) 10/04/20 05:59 Alkaline Phosphatase 105 units/L (35-129) 10/04/20 05:59 Ammonia 22.0 umol/L (25-60) L 10/02/20 23:17 Total Creatine Kinase 88 units/L (55-170) 10/02/20 23:17 CK-MB (CK-2) 7.5 ng/mL (0.0-4.0) H 10/02/20 23:17 CK-MB (CK-2) Rel Index 8.5 (0-4) H 10/02/20 23:17 Troponin T < 0.010 ng/mL (0.00-0.029) 10/02/20 23:17 Total Protein 6.4 g/dL (6.3-8.2) 10/04/20 05:59 Albumin 2.6 g/dL (3.9-5) L 10/04/20 05:59 Albumin/Globulin Ratio 0.7 % 10/04/20 05:59 Procalcitonin 0.10 ng/mL (<0.15) 10/10/20 10:58 TSH 2.130 mlU/mL (0.270-4.200) 10/07/20 13:54 Total Cortisol 17.4 mcg/dL () 10/09/20 02:46 Urine Eosinophils None seen (None Seen) 10/14/20 Unknown Urine Osmolality 223 Mosm/kg 10/07/20 Unknown Urine Creatinine 144.2 mg/dL (0.1-20.0) H 10/14/20 Unknown Protein/Creatinin Ratio 0.67 10/14/20 Unknown Urine Sodium 10 mmol/L 10/14/20 Unknown Urine Total Protein 97 mg/dL (5-11.8) H 10/14/20 Unknown Salicylates < 0.3 mg/dL (2.8-20.0) L 10/02/20 23:17 Acetaminophen 5.0 ug/mL (10.0-30.0) L 10/02/20 23:17 Plasma/Serum Alcohol < 0.01 % (0-0.07) 10/02/20 23:17 Coronavirus (PCR) Negative (Negative) 10/06/20 Unknown Blood Type O POSITIVE 10/03/20 05:57 Antibody Screen Negative 10/03/20 05:57 Crossmatch See Detail 10/03/20 05:57 Microbiology: Microbiology 10/08/20 15:02 Peripheral/Venous Blood Culture - Final NO GROWTH AFTER 5 DAYS 10/08/20 14:35 Peripheral/Venous Blood Culture - Final NO GROWTH AFTER 5 DAYS Jackson/IV: Voiding Method Condom Catheter Active Medications - Current Medications Current Medications: Generic Name Dose Route Start Last Admin Trade Name Freq PRN Reason Stop Dose Admin Acetaminophen 650 mg 10/03/20 02:10 10/06/20 15:28 Acetaminophen 325 Mg Tab PO 650 mg Q4H PRN Administration Pain MILD(1-3)/Fever >100.5/ROMERO Al Hydrox/Mg Hydrox/Simethicone 30 ml 10/03/20 02:10 Alum-Mag Hydroxide-Simethicone [id number]/5ml Oral Liqd 30 Ml PO Q4H PRN Indigestion Lipase/Protease/Amylase 1 each 10/03/20 16:51 Lipase 10,500/Protease 25,000/Amylase 43,750 (Units) Dr Reis FEEDTUBE PRN PRN For Clogged Feeding Tube Dextrose 0 ml 10/02/20 22:49 10/14/20 07:22 Dextrose 50% In Water (25gm) 50 Ml Syringe IV 50 ml Q30MIN PRN Administration Hypoglycemia Protocol Ferrous Sulfate 325 mg 10/03/20 10:00 10/13/20 10:13 Ferrous Sulfate 325 Mg Tab PO Not Given QDAY JOSE Folic Acid 1 mg 10/03/20 10:00 10/13/20 10:13 Folic Acid 1 Mg Tab PO Not Given QDAY JOSE Sodium Chloride 153.8 meq/ 1,038.45 mls @ 100 mls/hr 10/09/20 13:00 10/14/20 02:30 Dextrose IV 100 mls/hr DIRECT JOSE Administration Levetiracetam 250 mg/ Dextrose 102.5 mls @ 400 mls/hr 10/10/20 22:00 10/13/20 21:38 IV 400 mls/hr Q12HR JOSE Administration Thiamine HCl 300 mg/ Sodium 53 mls @ 100 mls/hr 10/11/20 14:00 10/13/20 11:00 Chloride IV 10/15/20 23:59 100 mls/hr QDAY JOSE Administration Magnesium Hydroxide 30 ml 10/03/20 02:10 Magnesium Hydroxide (Mom) Oral Liqd Udc PO Q4H PRN Constipation Metoclopramide HCl 10 mg 10/03/20 02:10 Metoclopramide 10 Mg/2 Ml Inj IV Q6H PRN Nausea And Vomiting Multivitamins 1 each 10/03/20 10:00 10/13/20 10:14 Multivitamins ,Therapeutic Tab PO Not Given QDAY JOSE Ondansetron HCl 4 mg 10/03/20 02:10 10/07/20 23:19 Ondansetron 4 Mg/2 Ml Inj IV 4 mg Q8H PRN Administration Nausea And Vomiting Oxycodone/Acetaminophen 1 tab 10/03/20 02:10 Oxycodone /Acetaminophen 5-325mg Tab PO Q6H PRN Pain, Moderate (4-6) Pantoprazole Sodium 40 mg 10/04/20 15:00 10/13/20 10:13 Pantoprazole 40 Mg Inj IV 40 mg QDAY JOSE Administration Promethazine HCl 25 mg 10/03/20 02:10 Promethazine 25 Mg Rect Supp MS Q6H PRN N/V IF NPO AND NO IV ACCESS Senna 8.6 mg 10/03/20 02:10 Sennosides 8.6 Mg Tab PO Q12HR PRN Constipation Simple Syrup 15 ml 10/03/20 16:51 Simple Syrup 15 Ml FEEDTUBE PRN PRN Hypoglycemia Simple Syrup 30 ml 10/03/20 16:51 Simple Syrup 15 Ml FEEDTUBE PRN PRN Hypoglycemia Sodium Bicarbonate 325 mg 10/03/20 16:51 Sodium Bicarbonate 325 Mg Tab FEEDTUBE PRN PRN For Clogged Feeding Tube Sodium Chloride 2 gm 10/09/20 12:00 10/13/20 21:37 Sodium Chloride 1 Gm Tab PO 2 gm TID JOSE Administration Nutrition/Malnutrition Assess - Dietary Evaluation Nutrition/Malnutrition Findings: Nutrition Notes Start: 10/03/20 08:51 Freq: Status: Active Protocol: Document 10/12/20 16:48 (Rec: 10/12/20 16:50 MK [id number]) Nutrition Notes Initial or Follow up Brief Note Current Diagnosis Diabetes Other Pertinent Diagnosis AMS, hypothermia, pneu, anemia , atherosclerotic cerebrovascular disease Current Diet NPO Subjective/Other Information Pt with large secretions in mouth and throat. Pt to get PEG once anemia resolved. Unable to speak with RN. Nutrition Intervention Follow-Up By: 10/14/20 Additional Comments F/u: TF start and tolerance, BG
[2020-10-14] MEDS: THIAMINE 300 MG in SODIUM CHLORIDE 0.9% 50 ML IV SCH (10:01)
[2020-10-14] MEDS: PANTOPRAZOLE 40 MG INJ IV SCH (10:01)
[2020-10-14] MEDS: SODIUM CHLORIDE 1 GM TAB PO SCH ×4 (10:53→21:03)
[2020-10-14] MEDS: levETIRAcetam 250 MG in DEXTROSE 5% IN WATER 100 ML IV SCH ×2 (11:15→21:03)
--- NOTE | 2020-10-14 11:21 | XRay Report ---
ABDOMEN 1 VIEW INDICATION / CLINICAL INFORMATION: NGT placement/location. COMPARISON: 10/09/2020 FINDINGS: TUBES / LINES: Esophagogastric tube projects over the stomach. BOWEL GAS PATTERN: No significant abnormality. ADDITIONAL FINDINGS: No significant additional findings. IMPRESSION: 1. Esophagogastric tube in expected position. Signer Name: Goyo Palmer MD Signed: 10/14/2020 11:16 AM Workstation Name: [id number]
--- NOTE | 2020-10-14 11:39 | Progress Note ---
Assessment and Plan Assessment and Plan Assessment and plan: 74 yo man who presented with AMS and left sided weakness. Patient was found by caregiver in his bed incontinent in feces/urine. Assessment and plan: # Acute encephalopathy -CT angio of the head that is a significant narrowing seen in both posterior cerebral arteries - and no signs of large vessel -CT of the head no acute finding but showed a cerebral atrophy with suspicious atrophy and atherosclerotic calcification within the distal right middle cerebral artery. -MRI brain without any acute findings - EEG today remarkable for diffuse slowing 3-4 Hz and with occassional triphasic waves , no epileptiform discharges is noted -- full report to follow -Repeat MRI brain showed no acute finding -Decrease Keppra 250 mg IV bid !!! -will add thiamin 300 mg Daily X3 days -No LP for now due to lack of any inflammatory findings #Left-sided hemiparesis with significant aphasia Placed on stroke protocol, neurology following, failed swallow eval # Hypothermia, intermittent Monitor body temperature Applied bed hugger -TSH ,B12 # Pulmonary infiltrate in right lung on CXR COVID-19 test is negative Likely secondary to pneumonia Start empiric antibiotics Rocephin and azithromycin # Atherosclerotic cerebrovascular disease Safety and fall precaution at all times PT OT consult follow-up with recommendation for discharge placement #Severe anemia -possible GI bleed? 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 malnutrition alteration worker consult, failed swallow eval Order for Dobbhoff tube and Tube feeding #Persistent hypoglycemia, patient placed D10, will also initiate tube feeding # DVT prophylaxis ACD hold Subcutaneous anticoagulant due to low H/H PLAN #Decrease Keppra 250 mg IV bid --can be changed to po through [place] tube once ready # Thiamin 300 mg Iv daily X3 days # started on tube feeding over all prognosis is quarded will sign off Subjective Date of service: 10/14/20 Principal diagnosis: hyponatremia, encephalopathy Interval history: status is unchanged turn head slightly to verbal command no clear speech out put no movement upper and lower neck/truncal rigidity, Objective - Vital Sign Vital Signs - 12hr 09/04/21 09/04/21 09/04/21 02:00 03:38 05:00 Temperature 93.0 F L Pulse Rate 69 73 Respiratory 18 Rate Blood Pressure 122/86 O2 Sat by Pulse 96 100 Oximetry 10/14/20 07:46 Temperature 97.9 F Pulse Rate 68 Respiratory 20 Rate Blood Pressure 120/81 O2 Sat by Pulse 95 Oximetry - General Apperance Constitutional: uncomfortable - EENT EENT: PERRL, mucous membranes moist - Respiratory Respiratory: chest non-tender, rhonchi, wheezing - Cardiovascular Cardiovascular: regular rate, normal S1, normal S2 Extremities: no peripheral edema bilat, no clubbing, cyanosis - Gastrointestinal Gastrointestinal: normoactive bowel sounds - Integumentary Integumentary: normal - Neurologic Cranial nerve examination: PERRL, EOMI, facial droop Detailed motor examination: other (no movment to verbal command both upper and lower ) - Laboratory Findings CBC and BMP: 10/14/20 05:04 10/14/20 05:04 Abnormal Lab Findings: Abnormal Labs 10/02/20 10/02/20 10/02/20 23:17 23:17 23:17 WBC RBC 3.31 L Hgb 6.7 L Hct 21.8 L MCV 66 L MCH 20 L MCHC 31 L RDW 31.7 H Plt Count Seg Neutrophils % Seg Neuts % (Manual) 79.0 H Lymphocytes % (Manual) 11.0 L Monocytes % (Manual) 10.0 H Basophils % (Manual) Nucleated RBC % Seg Neutrophils # Man Lymphocytes # (Manual) 0.9 L Monocytes # (Manual) Basophils # (Manual) PT 20.8 H INR 1.74 H APTT 57.6 H Sodium Potassium Chloride Carbon Dioxide BUN Creatinine Glucose 42 L POC Glucose Lactic Acid Iron Ammonia CK-MB (CK-2) 7.5 H CK-MB (CK-2) Rel Index 8.5 H Total Protein Albumin 2.9 L Urine Creatinine Urine Total Protein Salicylates Acetaminophen Crossmatch 10/02/20 10/02/20 10/02/20 23:17 23:17 23:17 WBC RBC Hgb Hct MCV MCH MCHC RDW Plt Count Seg Neutrophils % Seg Neuts % (Manual) Lymphocytes % (Manual) Monocytes % (Manual) Basophils % (Manual) Nucleated RBC % Seg Neutrophils # Man Lymphocytes # (Manual) Monocytes # (Manual) Basophils # (Manual) PT INR APTT Sodium Potassium Chloride Carbon Dioxide BUN Creatinine Glucose POC Glucose Lactic Acid 2.20 H* Iron Ammonia 22.0 L CK-MB (CK-2) CK-MB (CK-2) Rel Index Total Protein Albumin Urine Creatinine Urine Total Protein Salicylates < 0.3 L Acetaminophen Crossmatch 10/02/20 10/03/20 10/03/20 23:17 05:57 05:57 WBC RBC 2.66 L Hgb 5.3 L* Hct 17.8 L* MCV 67 L MCH 20 L MCHC 30 L RDW 32.1 H Plt Count Seg Neutrophils % Seg Neuts % (Manual) Lymphocytes % (Manual) 2.0 L Monocytes % (Manual) Basophils % (Manual) Nucleated RBC % 1.0 H Seg Neutrophils # Man 8.6 H Lymphocytes # (Manual) 0.2 L Monocytes # (Manual) Basophils # (Manual) PT INR APTT Sodium Potassium Chloride Carbon Dioxide BUN Creatinine Glucose POC Glucose Lactic Acid Iron Ammonia CK-MB (CK-2) CK-MB (CK-2) Rel Index Total Protein Albumin Urine Creatinine Urine Total Protein Salicylates Acetaminophen 5.0 L Crossmatch See Detail 10/03/20 10/03/20 10/03/20 05:57 05:57 06:00 WBC RBC Hgb Hct MCV MCH MCHC RDW Plt Count Seg Neutrophils % Seg Neuts % (Manual) Lymphocytes % (Manual) Monocytes % (Manual) Basophils % (Manual) Nucleated RBC % Seg Neutrophils # Man Lymphocytes # (Manual) Monocytes # (Manual) Basophils # (Manual) PT INR APTT Sodium Potassium Chloride Carbon Dioxide BUN Creatinine Glucose 52 L POC Glucose 31 L Lactic Acid Iron 42 L Ammonia CK-MB (CK-2) CK-MB (CK-2) Rel Index Total Protein 5.8 L Albumin 3.1 L Urine Creatinine Urine Total Protein Salicylates Acetaminophen Crossmatch 10/03/20 10/03/20 10/03/20 07:34 09:43 10:57 WBC RBC Hgb Hct MCV MCH MCHC RDW Plt Count Seg Neutrophils % Seg Neuts % (Manual) Lymphocytes % (Manual) Monocytes % (Manual) Basophils % (Manual) Nucleated RBC % Seg Neutrophils # Man Lymphocytes # (Manual) Monocytes # (Manual) Basophils # (Manual) PT INR APTT Sodium Potassium Chloride Carbon Dioxide BUN Creatinine Glucose POC Glucose 59 L 41 L 31 L Lactic Acid Iron Ammonia CK-MB (CK-2) CK-MB (CK-2) Rel Index Total Protein Albumin Urine Creatinine Urine Total Protein Salicylates Acetaminophen Crossmatch 10/03/20 10/03/20 10/03/20 11:21 12:00 12:14 WBC RBC Hgb Hct MCV MCH MCHC RDW Plt Count Seg Neutrophils % Seg Neuts % (Manual) Lymphocytes % (Manual) Monocytes % (Manual) Basophils % (Manual) Nucleated RBC % Seg Neutrophils # Man Lymphocytes # (Manual) Monocytes # (Manual) Basophils # (Manual) PT INR APTT Sodium Potassium Chloride Carbon Dioxide BUN Creatinine Glucose POC Glucose 62 L 26 L 140 H Lactic Acid Iron Ammonia CK-MB (CK-2) CK-MB (CK-2) Rel Index Total Protein Albumin Urine Creatinine Urine Total Protein Salicylates Acetaminophen Crossmatch 10/03/20 10/03/20 10/03/20 13:33 14:19 14:59 WBC RBC Hgb Hct MCV MCH MCHC RDW Plt Count Seg Neutrophils % Seg Neuts % (Manual) Lymphocytes % (Manual) Monocytes % (Manual) Basophils % (Manual) Nucleated RBC % Seg Neutrophils # Man Lymphocytes # (Manual) Monocytes # (Manual) Basophils # (Manual) PT INR APTT Sodium Potassium Chloride Carbon Dioxide BUN Creatinine Glucose POC Glucose 24 L 59 L 40 L Lactic Acid Iron Ammonia CK-MB (CK-2) CK-MB (CK-2) Rel Index Total Protein Albumin Urine Creatinine Urine Total Protein Salicylates Acetaminophen Crossmatch 10/03/20 10/03/20 10/03/20 15:26 15:57 16:35 WBC RBC Hgb Hct MCV MCH MCHC RDW Plt Count Seg Neutrophils % Seg Neuts % (Manual) Lymphocytes % (Manual) Monocytes % (Manual) Basophils % (Manual) Nucleated RBC % Seg Neutrophils # Man Lymphocytes # (Manual) Monocytes # (Manual) Basophils # (Manual) PT INR APTT Sodium Potassium Chloride Carbon Dioxide BUN Creatinine Glucose POC Glucose 54 L 45 L 42 L Lactic Acid Iron Ammonia CK-MB (CK-2) CK-MB (CK-2) Rel Index Total Protein Albumin Urine Creatinine Urine Total Protein Salicylates Acetaminophen Crossmatch 10/03/20 10/03/20 10/03/20 17:16 18:37 19:56 WBC RBC Hgb Hct MCV MCH MCHC RDW Plt Count Seg Neutrophils % Seg Neuts % (Manual) Lymphocytes % (Manual) Monocytes % (Manual) Basophils % (Manual) Nucleated RBC % Seg Neutrophils # Man Lymphocytes # (Manual) Monocytes # (Manual) Basophils # (Manual) PT INR APTT Sodium Potassium Chloride Carbon Dioxide BUN Creatinine Glucose POC Glucose 41 L 46 L 57 L Lactic Acid Iron Ammonia CK-MB (CK-2) CK-MB (CK-2) Rel Index Total Protein Albumin Urine Creatinine Urine Total Protein Salicylates Acetaminophen Crossmatch 10/03/20 10/04/20 10/04/20 21:32 01:04 01:11 WBC RBC Hgb 9.6 L D Hct 28.3 L D MCV MCH MCHC RDW Plt Count Seg Neutrophils % Seg Neuts % (Manual) Lymphocytes % (Manual) Monocytes % (Manual) Basophils % (Manual) Nucleated RBC % Seg Neutrophils # Man Lymphocytes # (Manual) Monocytes # (Manual) Basophils # (Manual) PT INR APTT Sodium Potassium Chloride Carbon Dioxide BUN Creatinine Glucose POC Glucose 65 L 51 L Lactic Acid Iron Ammonia CK-MB (CK-2) CK-MB (CK-2) Rel Index Total Protein Albumin Urine Creatinine Urine Total Protein Salicylates Acetaminophen Crossmatch 10/04/20 10/04/20 10/04/20 05:59 05:59 15:10 WBC 13.4 H RBC Hgb 9.9 L 10.1 L Hct 32.0 L 31.8 L MCV 76 L MCH 24 L MCHC 31 L RDW 31.3 H Plt Count Seg Neutrophils % Seg Neuts % (Manual) 86.0 H Lymphocytes % (Manual) 6.0 L Monocytes % (Manual) 8.0 H Basophils % (Manual) Nucleated RBC % 2.0 H Seg Neutrophils # Man 11.5 H Lymphocytes # (Manual) 0.8 L Monocytes # (Manual) 1.1 H Basophils # (Manual) PT INR APTT Sodium 136 L Potassium 3.5 L Chloride Carbon Dioxide 19 L D BUN Creatinine Glucose POC Glucose Lactic Acid Iron Ammonia CK-MB (CK-2) CK-MB (CK-2) Rel Index Total Protein Albumin 2.6 L Urine Creatinine Urine Total Protein Salicylates Acetaminophen Crossmatch 10/04/20 10/04/20 10/05/20 16:28 22:33 04:43 WBC RBC Hgb 10.5 L Hct 32.5 L MCV MCH MCHC RDW Plt Count Seg Neutrophils % Seg Neuts % (Manual) Lymphocytes % (Manual) Monocytes % (Manual) Basophils % (Manual) Nucleated RBC % Seg Neutrophils # Man Lymphocytes # (Manual) Monocytes # (Manual) Basophils # (Manual) PT INR APTT Sodium Potassium Chloride Carbon Dioxide BUN Creatinine Glucose POC Glucose 66 L 113 H Lactic Acid Iron Ammonia CK-MB (CK-2) CK-MB (CK-2) Rel Index Total Protein Albumin Urine Creatinine Urine Total Protein Salicylates Acetaminophen Crossmatch 10/05/20 10/05/20 10/05/20 05:00 09:42 11:57 WBC RBC Hgb 9.8 L Hct 30.5 L MCV 74 L MCH 24 L MCHC RDW 31.6 H Plt Count Seg Neutrophils % Seg Neuts % (Manual) Lymphocytes % (Manual) Monocytes % (Manual) Basophils % (Manual) Nucleated RBC % Seg Neutrophils # Man Lymphocytes # (Manual) Monocytes # (Manual) Basophils # (Manual) PT INR APTT Sodium 132 L Potassium 3.5 L Chloride Carbon Dioxide 19 L BUN Creatinine 0.7 L Glucose POC Glucose 129 H Lactic Acid Iron Ammonia CK-MB (CK-2) CK-MB (CK-2) Rel Index Total Protein Albumin Urine Creatinine Urine Total Protein Salicylates Acetaminophen Crossmatch 10/05/20 10/05/20 10/06/20 16:47 21:51 05:07 WBC RBC Hgb 9.4 L Hct 30.1 L MCV 76 L MCH 24 L MCHC 31 L RDW 31.1 H Plt Count Seg Neutrophils % Seg Neuts % (Manual) Lymphocytes % (Manual) Monocytes % (Manual) Basophils % (Manual) Nucleated RBC % Seg Neutrophils # Man Lymphocytes # (Manual) Monocytes # (Manual) Basophils # (Manual) PT INR APTT Sodium Potassium Chloride Carbon Dioxide BUN Creatinine Glucose POC Glucose 132 H 115 H Lactic Acid Iron Ammonia CK-MB (CK-2) CK-MB (CK-2) Rel Index Total Protein Albumin Urine Creatinine Urine Total Protein Salicylates Acetaminophen Crossmatch 10/06/20 10/06/20 10/06/20 05:07 15:37 21:01 WBC RBC Hgb Hct MCV MCH MCHC RDW Plt Count Seg Neutrophils % Seg Neuts % (Manual) Lymphocytes % (Manual) Monocytes % (Manual) Basophils % (Manual) Nucleated RBC % Seg Neutrophils # Man Lymphocytes # (Manual) Monocytes # (Manual) Basophils # (Manual) PT INR APTT Sodium 133 L Potassium 3.5 L Chloride Carbon Dioxide 21 L BUN Creatinine 0.6 L Glucose 105 H POC Glucose 136 H 108 H Lactic Acid Iron Ammonia CK-MB (CK-2) CK-MB (CK-2) Rel Index Total Protein Albumin Urine Creatinine Urine Total Protein Salicylates Acetaminophen Crossmatch 10/07/20 10/07/20 10/07/20 04:52 04:52 06:07 WBC RBC Hgb 9.6 L Hct 29.4 L MCV 73 L MCH 24 L MCHC RDW 32.2 H Plt Count Seg Neutrophils % Seg Neuts % (Manual) Lymphocytes % (Manual) Monocytes % (Manual) Basophils % (Manual) Nucleated RBC % Seg Neutrophils # Man Lymphocytes # (Manual) Monocytes # (Manual) Basophils # (Manual) PT INR APTT Sodium 128 L Potassium Chloride Carbon Dioxide 20 L BUN Creatinine 0.7 L Glucose POC Glucose 110 H Lactic Acid Iron Ammonia CK-MB (CK-2) CK-MB (CK-2) Rel Index Total Protein Albumin Urine Creatinine Urine Total Protein Salicylates Acetaminophen Crossmatch 10/07/20 10/07/20 10/07/20 17:09 18:53 20:35 WBC RBC Hgb Hct MCV MCH MCHC RDW Plt Count Seg Neutrophils % Seg Neuts % (Manual) Lymphocytes % (Manual) Monocytes % (Manual) Basophils % (Manual) Nucleated RBC % Seg Neutrophils # Man Lymphocytes # (Manual) Monocytes # (Manual) Basophils # (Manual) PT INR APTT Sodium Potassium Chloride Carbon Dioxide BUN Creatinine Glucose POC Glucose 67 L 66 L 62 L Lactic Acid Iron Ammonia CK-MB (CK-2) CK-MB (CK-2) Rel Index Total Protein Albumin Urine Creatinine Urine Total Protein Salicylates Acetaminophen Crossmatch 10/07/20 10/08/20 10/08/20 21:55 05:00 05:00 WBC RBC Hgb 9.6 L Hct 29.4 L MCV 73 L MCH 24 L MCHC RDW 32.4 H Plt Count Seg Neutrophils % 80.6 H Seg Neuts % (Manual) 88.0 H Lymphocytes % (Manual) 9.0 L Monocytes % (Manual) Basophils % (Manual) Nucleated RBC % 5.0 H Seg Neutrophils # Man Lymphocytes # (Manual) 0.5 L Monocytes # (Manual) Basophils # (Manual) PT INR APTT Sodium 126 L Potassium Chloride 96.3 L Carbon Dioxide BUN Creatinine 0.7 L Glucose POC Glucose 132 H Lactic Acid Iron Ammonia CK-MB (CK-2) CK-MB (CK-2) Rel Index Total Protein Albumin Urine Creatinine Urine Total Protein Salicylates Acetaminophen Crossmatch 10/08/20 10/09/20 10/09/20 22:26 01:36 02:22 WBC RBC Hgb Hct MCV MCH MCHC RDW Plt Count Seg Neutrophils % Seg Neuts % (Manual) Lymphocytes % (Manual) Monocytes % (Manual) Basophils % (Manual) Nucleated RBC % Seg Neutrophils # Man Lymphocytes # (Manual) Monocytes # (Manual) Basophils # (Manual) PT INR APTT Sodium Potassium Chloride Carbon Dioxide BUN Creatinine Glucose POC Glucose 63 L 62 L 151 H Lactic Acid Iron Ammonia CK-MB (CK-2) CK-MB (CK-2) Rel Index Total Protein Albumin Urine Creatinine Urine Total Protein Salicylates Acetaminophen Crossmatch 10/09/20 10/09/20 10/09/20 05:07 05:42 06:32 WBC RBC Hgb 10.3 L Hct 33.8 L MCV 77 L MCH 24 L MCHC 31 L RDW 33.6 H Plt Count 137 L Seg Neutrophils % Seg Neuts % (Manual) 89.0 H Lymphocytes % (Manual) 5.0 L Monocytes % (Manual) Basophils % (Manual) Nucleated RBC % 4.0 H Seg Neutrophils # Man 9.4 H Lymphocytes # (Manual) 0.5 L Monocytes # (Manual) Basophils # (Manual) PT INR APTT Sodium 126 L Potassium Chloride 97.8 L Carbon Dioxide 20 L BUN Creatinine Glucose 58 L POC Glucose 48 L Lactic Acid Iron Ammonia CK-MB (CK-2) CK-MB (CK-2) Rel Index Total Protein Albumin Urine Creatinine Urine Total Protein Salicylates Acetaminophen Crossmatch 10/09/20 10/10/20 10/10/20 06:35 00:21 05:53 WBC RBC Hgb Hct MCV MCH MCHC RDW Plt Count Seg Neutrophils % Seg Neuts % (Manual) Lymphocytes % (Manual) Monocytes % (Manual) Basophils % (Manual) Nucleated RBC % Seg Neutrophils # Man Lymphocytes # (Manual) Monocytes # (Manual) Basophils # (Manual) PT INR APTT Sodium Potassium Chloride Carbon Dioxide BUN Creatinine Glucose POC Glucose 106 H 153 H 34 L Lactic Acid Iron Ammonia CK-MB (CK-2) CK-MB (CK-2) Rel Index Total Protein Albumin Urine Creatinine Urine Total Protein Salicylates Acetaminophen Crossmatch 10/10/20 10/10/20 10/10/20 10:58 10:58 12:39 WBC RBC Hgb 10.3 L Hct 33.9 L MCV 78 L MCH 24 L MCHC 30 L RDW 33.2 H Plt Count 135 L Seg Neutrophils % Seg Neuts % (Manual) 74.0 H Lymphocytes % (Manual) 12.0 L Monocytes % (Manual) 9.0 H Basophils % (Manual) 2.0 H Nucleated RBC % Seg Neutrophils # Man Lymphocytes # (Manual) 1.0 L Monocytes # (Manual) Basophils # (Manual) 0.2 H PT INR APTT Sodium 127 L Potassium Chloride Carbon Dioxide 20 L BUN 23 H Creatinine Glucose POC Glucose 108 H Lactic Acid Iron Ammonia CK-MB (CK-2) CK-MB (CK-2) Rel Index Total Protein Albumin Urine Creatinine Urine Total Protein Salicylates Acetaminophen Crossmatch 10/10/20 10/11/20 10/11/20 16:51 04:56 05:51 WBC RBC Hgb 9.5 L Hct 31.3 L MCV 77 L MCH 23 L MCHC 30 L RDW 33.7 H Plt Count Seg Neutrophils % Seg Neuts % (Manual) 95.0 H Lymphocytes % (Manual) 2.0 L Monocytes % (Manual) Basophils % (Manual) Nucleated RBC % 3.0 H Seg Neutrophils # Man 8.0 H Lymphocytes # (Manual) 0.2 L Monocytes # (Manual) Basophils # (Manual) PT INR APTT Sodium Potassium Chloride Carbon Dioxide BUN Creatinine Glucose POC Glucose 142 H 124 H Lactic Acid Iron Ammonia CK-MB (CK-2) CK-MB (CK-2) Rel Index Total Protein Albumin Urine Creatinine Urine Total Protein Salicylates Acetaminophen Crossmatch 10/11/20 10/11/20 10/12/20 05:51 11:56 04:53 WBC RBC Hgb 9.5 L Hct 30.0 L MCV 75 L MCH 24 L MCHC RDW 32.8 H Plt Count 136 L Seg Neutrophils % Seg Neuts % (Manual) 89.0 H Lymphocytes % (Manual) 5.0 L Monocytes % (Manual) Basophils % (Manual) Nucleated RBC % Seg Neutrophils # Man Lymphocytes # (Manual) 0.4 L Monocytes # (Manual) Basophils # (Manual) PT INR APTT Sodium 130 L Potassium Chloride Carbon Dioxide 18 L BUN 23 H Creatinine Glucose POC Glucose 126 H Lactic Acid Iron Ammonia CK-MB (CK-2) CK-MB (CK-2) Rel Index Total Protein Albumin Urine Creatinine Urine Total Protein Salicylates Acetaminophen Crossmatch 10/12/20 10/12/20 10/12/20 04:53 11:42 23:49 WBC RBC Hgb Hct MCV MCH MCHC RDW Plt Count Seg Neutrophils % Seg Neuts % (Manual) Lymphocytes % (Manual) Monocytes % (Manual) Basophils % (Manual) Nucleated RBC % Seg Neutrophils # Man Lymphocytes # (Manual) Monocytes # (Manual) Basophils # (Manual) PT INR APTT Sodium 130 L Potassium Chloride Carbon Dioxide 18 L BUN 25 H Creatinine Glucose 74 L POC Glucose 59 L 51 L Lactic Acid Iron Ammonia CK-MB (CK-2) CK-MB (CK-2) Rel Index Total Protein Albumin Urine Creatinine Urine Total Protein Salicylates Acetaminophen Crossmatch 10/13/20 10/13/20 10/13/20 03:17 05:24 05:24 WBC RBC Hgb 9.4 L Hct 29.4 L MCV 75 L MCH 24 L MCHC RDW 32.9 H Plt Count 95 L Seg Neutrophils % Seg Neuts % (Manual) 90.0 H Lymphocytes % (Manual) Monocytes % (Manual) Basophils % (Manual) Nucleated RBC % 2.0 H Seg Neutrophils # Man 9.5 H Lymphocytes # (Manual) 0.0 L Monocytes # (Manual) Basophils # (Manual) PT INR APTT Sodium 132 L Potassium Chloride Carbon Dioxide 17 L BUN 26 H Creatinine 1.6 H Glucose POC Glucose 67 L Lactic Acid Iron Ammonia CK-MB (CK-2) CK-MB (CK-2) Rel Index Total Protein Albumin Urine Creatinine Urine Total Protein Salicylates Acetaminophen Crossmatch 10/13/20 10/14/20 10/14/20 11:36 05:04 05:04 WBC 17.4 H RBC Hgb 9.3 L Hct 29.3 L MCV 76 L MCH 24 L MCHC RDW 33.8 H Plt Count 83 L Seg Neutrophils % Seg Neuts % (Manual) 89.0 H Lymphocytes % (Manual) 4.0 L Monocytes % (Manual) Basophils % (Manual) Nucleated RBC % 1.0 H Seg Neutrophils # Man 15.5 H Lymphocytes # (Manual) 0.7 L Monocytes # (Manual) Basophils # (Manual) PT INR APTT Sodium 132 L Potassium 5.3 H Chloride 108.7 H Carbon Dioxide 15 L BUN 25 H Creatinine 1.5 H Glucose POC Glucose 58 L Lactic Acid Iron Ammonia CK-MB (CK-2) CK-MB (CK-2) Rel Index Total Protein Albumin Urine Creatinine Urine Total Protein Salicylates Acetaminophen Crossmatch 10/14/20 10/14/20 10/14/20 05:41 08:19 Unknown WBC RBC Hgb Hct MCV MCH MCHC RDW Plt Count Seg Neutrophils % Seg Neuts % (Manual) Lymphocytes % (Manual) Monocytes % (Manual) Basophils % (Manual) Nucleated RBC % Seg Neutrophils # Man Lymphocytes # (Manual) Monocytes # (Manual) Basophils # (Manual) PT INR APTT Sodium Potassium Chloride Carbon Dioxide BUN Creatinine Glucose POC Glucose 58 L 120 H Lactic Acid Iron Ammonia CK-MB (CK-2) CK-MB (CK-2) Rel Index Total Protein Albumin Urine Creatinine 144.2 H Urine Total Protein 97 H Salicylates Acetaminophen Crossmatch
[2020-10-14] MEDS: FERROUS SULFATE 325 MG TAB PO SCH (12:25)
[2020-10-14] MEDS: MULTIVITAMINS ,THERAPEUTIC TAB PO SCH (12:26)
[2020-10-14] MEDS: FOLIC ACID 1 MG TAB PO SCH (12:26)
--- NOTE | 2020-10-14 12:43 | Gastroenterology Progress Note ---
Assessment and Plan 74 yo male admitted for encephalopathy. GI consulted for anemia. 1. Iron deficient anemia - etiology unclear. - no signs of overt GI bleeding - monitor H/H. - will plan for EGD/colonoscopy tentatively based on clinical stability. - Spoke with the daughter and discussed plans for EGD/colonoscopy including risks of potential complications. phone [phone], Mignon Singh. 2. Oropharyngeal dysphagia - due to encephalopathy, questions of CVA - will plan on PEG after clearing anemia. - pt's daughter wishes to proceed. - meantime, proceed with tube feeding via NGT Subjective Date of service: 10/14/20 Principal diagnosis: hyponatremia, encephalopathy Interval history: Patient without acute events. Tube feeds to be restarted today. No bleeding signs. Objective - Constitutional Vitals: Temp Pulse Resp BP Pulse Ox 97.8 F 70 20 115/81 98 10/14/20 11:38 10/14/20 11:38 10/14/20 11:38 10/14/20 11:38 10/14/20 11:38 General appearance: no acute distress - Neck Neck: supple - Respiratory Respiratory effort: normal - Cardiovascular Rhythm: regular Heart Sounds: Present: S1 & S2 - Gastrointestinal General gastrointestinal: Present: soft, non-tender, non-distended - Neurologic Neurological: other (nonverbal) - Labs CBC & Chem 7: 10/14/20 05:04 10/14/20 05:04 Labs: Laboratory Results - last 24 hr 10/13/20 10/13/20 10/13/20 05:24 12:54 16:11 WBC RBC Hgb Hct MCV MCH MCHC RDW Plt Count 95 L Add Manual Diff Complete Total Counted 100 Seg Neuts % (Manual) 90.0 H Band Neutrophils % 5.0 Lymphocytes % (Manual) Monocytes % (Manual) 4.0 Eosinophils % (Manual) 1.0 Nucleated RBC % 2.0 H Seg Neutrophils # Man 9.5 H Band Neutrophils # 0.5 Lymphocytes # (Manual) 0.0 L Abs React Lymphs (Man) 0.0 Monocytes # (Manual) 0.4 Eosinophils # (Manual) 0.1 Basophils # (Manual) 0.0 Metamyelocytes # 0.0 Myelocytes # 0.0 Promyelocytes # 0.0 Blast Cells # 0.0 WBC Morphology Not Reportable Hypersegmented Neuts Not Reportable Hyposegmented Neuts Not Reportable Hypogranular Neuts Not Reportable Smudge Cells Not Reportable Toxic Granulation 1+ Toxic Vacuolation 3+ Dohle Bodies Not Reportable Pelger-Huet Anomaly Not Reportable Andrés Rods Not Reportable Platelet Estimate Consistent w auto Clumped Platelets Not Reportable Plt Clumps, EDTA Not Reportable Large Platelets Not Reportable Giant Platelets Not Reportable Platelet Satelliting Not Reportable Plt Morphology Comment Not Reportable RBC Morphology Not Reportable Dimorphic RBCs Not Reportable Polychromasia Not Reportable Hypochromasia 1+ Poikilocytosis 3+ Anisocytosis 3+ Microcytosis Not Reportable Macrocytosis Not Reportable Spherocytes 1+ Pappenheimer Bodies Not Reportable Sickle Cells Not Reportable Target Cells 1+ Tear Drop Cells 1+ Ovalocytes Not Reportable Helmet Cells Not Reportable [place] Bodies Not Reportable [place] Rings Not Reportable Norbert Cells 3+ Bite Cells Not Reportable Crenated Cell Not Reportable Elliptocytes Not Reportable Acanthocytes (Spur) 1+ Rouleaux Not Reportable Hemoglobin C Crystals Not Reportable Schistocytes Not Reportable Malaria parasites Not Reportable Dereck Bodies Not Reportable Hem Pathologist Commnt No Sodium Potassium Chloride Carbon Dioxide Anion Gap BUN Creatinine Estimated GFR BUN/Creatinine Ratio Glucose POC Glucose 80 94 Calcium Urine Eosinophils Urine Creatinine Protein/Creatinin Ratio Urine Sodium Urine Total Protein 10/13/20 10/14/20 10/14/20 23:22 05:04 05:04 WBC 17.4 H RBC 3.88 Hgb 9.3 L Hct 29.3 L MCV 76 L MCH 24 L MCHC 32 RDW 33.8 H Plt Count 83 L Add Manual Diff Complete Total Counted 100 Seg Neuts % (Manual) 89.0 H Band Neutrophils % 4.0 Lymphocytes % (Manual) 4.0 L Monocytes % (Manual) 3.0 Eosinophils % (Manual) Nucleated RBC % 1.0 H Seg Neutrophils # Man 15.5 H Band Neutrophils # 0.7 Lymphocytes # (Manual) 0.7 L Abs React Lymphs (Man) 0.0 Monocytes # (Manual) 0.5 Eosinophils # (Manual) 0.0 Basophils # (Manual) 0.0 Metamyelocytes # 0.0 Myelocytes # 0.0 Promyelocytes # 0.0 Blast Cells # 0.0 WBC Morphology Not Reportable Hypersegmented Neuts Not Reportable Hyposegmented Neuts Not Reportable Hypogranular Neuts Not Reportable Smudge Cells Not Reportable Toxic Granulation Not Reportable Toxic Vacuolation Not Reportable Dohle Bodies Not Reportable Pelger-Huet Anomaly Not Reportable Andrés Rods Not Reportable Platelet Estimate Consistent w auto Clumped Platelets Not Reportable Plt Clumps, EDTA Not Reportable Large Platelets Not Reportable Giant Platelets Not Reportable Platelet Satelliting Not Reportable Plt Morphology Comment Not Reportable RBC Morphology Not Reportable Dimorphic RBCs Not Reportable Polychromasia Not Reportable Hypochromasia 1+ Poikilocytosis 2+ Anisocytosis 3+ Microcytosis Not Reportable Macrocytosis Not Reportable Spherocytes Not Reportable Pappenheimer Bodies Not Reportable Sickle Cells Not Reportable Target Cells Few Tear Drop Cells Few Ovalocytes Few Helmet Cells Not Reportable [place] Bodies Not Reportable [place] Rings Not Reportable Hulbert Cells 2+ Bite Cells Not Reportable Crenated Cell Not Reportable Elliptocytes Not Reportable Acanthocytes (Spur) Not Reportable Rouleaux Not Reportable Hemoglobin C Crystals Not Reportable Schistocytes Rare Malaria parasites Not Reportable Dereck Bodies Not Reportable Hem Pathologist Commnt No Sodium 132 L Potassium 5.3 H Chloride 108.7 H Carbon Dioxide 15 L Anion Gap 14 BUN 25 H Creatinine 1.5 H Estimated GFR 55 BUN/Creatinine Ratio 17 Glucose 86 POC Glucose 83 Calcium 8.5 Urine Eosinophils Urine Creatinine Protein/Creatinin Ratio Urine Sodium Urine Total Protein 10/14/20 10/14/20 10/14/20 05:41 08:19 12:16 WBC RBC Hgb Hct MCV MCH MCHC RDW Plt Count Add Manual Diff Total Counted Seg Neuts % (Manual) Band Neutrophils % Lymphocytes % (Manual) Monocytes % (Manual) Eosinophils % (Manual) Nucleated RBC % Seg Neutrophils # Man Band Neutrophils # Lymphocytes # (Manual) Abs React Lymphs (Man) Monocytes # (Manual) Eosinophils # (Manual) Basophils # (Manual) Metamyelocytes # Myelocytes # Promyelocytes # Blast Cells # WBC Morphology Hypersegmented Neuts Hyposegmented Neuts Hypogranular Neuts Smudge Cells Toxic Granulation Toxic Vacuolation Dohle Bodies Pelger-Huet Anomaly Andrés Rods Platelet Estimate Clumped Platelets Plt Clumps, EDTA Large Platelets Giant Platelets Platelet Satelliting Plt Morphology Comment RBC Morphology Dimorphic RBCs Polychromasia Hypochromasia Poikilocytosis Anisocytosis Microcytosis Macrocytosis Spherocytes Pappenheimer Bodies Sickle Cells Target Cells Tear Drop Cells Ovalocytes Helmet Cells [place] Bodies [place] Rings Hulbert Cells Bite Cells Crenated Cell Elliptocytes Acanthocytes (Spur) Rouleaux Hemoglobin C Crystals Schistocytes Malaria parasites Dereck Bodies Hem Pathologist Commnt Sodium Potassium Chloride Carbon Dioxide Anion Gap BUN Creatinine Estimated GFR BUN/Creatinine Ratio Glucose POC Glucose 58 L 120 H 75 Calcium Urine Eosinophils Urine Creatinine Protein/Creatinin Ratio Urine Sodium Urine Total Protein 10/14/20 10/14/20 Unknown Unknown WBC RBC Hgb Hct MCV MCH MCHC RDW Plt Count Add Manual Diff Total Counted Seg Neuts % (Manual) Band Neutrophils % Lymphocytes % (Manual) Monocytes % (Manual) Eosinophils % (Manual) Nucleated RBC % Seg Neutrophils # Man Band Neutrophils # Lymphocytes # (Manual) Abs React Lymphs (Man) Monocytes # (Manual) Eosinophils # (Manual) Basophils # (Manual) Metamyelocytes # Myelocytes # Promyelocytes # Blast Cells # WBC Morphology Hypersegmented Neuts Hyposegmented Neuts Hypogranular Neuts Smudge Cells Toxic Granulation Toxic Vacuolation Dohle Bodies Pelger-Huet Anomaly Andrés Rods Platelet Estimate Clumped Platelets Plt Clumps, EDTA Large Platelets Giant Platelets Platelet Satelliting Plt Morphology Comment RBC Morphology Dimorphic RBCs Polychromasia Hypochromasia Poikilocytosis Anisocytosis Microcytosis Macrocytosis Spherocytes Pappenheimer Bodies Sickle Cells Target Cells Tear Drop Cells Ovalocytes Helmet Cells [place] Bodies [place] Rings Hulbert Cells Bite Cells Crenated Cell Elliptocytes Acanthocytes (Spur) Rouleaux Hemoglobin C Crystals Schistocytes Malaria parasites Dereck Bodies Hem Pathologist Commnt Sodium Potassium Chloride Carbon Dioxide Anion Gap BUN Creatinine Estimated GFR BUN/Creatinine Ratio Glucose POC Glucose Calcium Urine Eosinophils None seen Urine Creatinine 144.2 H Protein/Creatinin Ratio 0.67 Urine Sodium 10 Urine Total Protein 97 H
--- NOTE | 2020-10-14 14:02 | Progress Note ---
Assessment and Plan Assessment: Acute encephalopathy Hyponatremia BETSY possibly 2/2 prerenal/ATN Hypothermia Pulmonary infiltrate in right lung on CXR Atherosclerotic cerebrovascular disease Severe anemia -possible GI bleed Left sided hemiparesis with aphasia Plan: Labs reviewed, most recent serum Na level was 132 today, yesterday's serum Na level was 132 On sodium chloride tablet 2 g po TID, added low dose lasix 20 mg via nasogastric tube daily for BLE swelling possibly worsened from salt tablets Goal sodium correction of < 8 mmol/l within 24 hrs to try to minimize risk of ODS Renal function with slight improvement, SCr level was 1.5 today, yesterday's SCr level was 1.6 Low C02 level noted on BMP, will check ABG for further evaluation of acid base etiology Most recent serum K level was 5.3 today Repeat BMP at 1600 Pt currently on Nepro tube feeding Renally dose meds Monitor I/O's daily Jackson Catheter: No (Condom Catheter) Intake= 2464 ml Output= 1000 ml (Net= 1464 ml) Renal plan reviewed by Dr Cam Subjective Date of service: 10/14/20 Principal diagnosis: hyponatremia, encephalopathy Interval history: Pt seen in bed, lethargic, nonverbal Objective - Vital Signs Vital signs: Vital Signs - 12hr 10/14/20 10/14/20 10/14/20 02:00 03:38 05:00 Temperature 93.0 F L Pulse Rate 69 73 Pulse Rate [ Apical] Pulse Rate [ From Monitor] Respiratory 18 Rate Blood Pressure 122/86 O2 Sat by Pulse 96 100 Oximetry 10/14/20 10/14/20 10/14/20 07:46 11:37 11:38 Temperature 97.9 F 97.8 F Pulse Rate 68 70 Pulse Rate [ 79 Apical] Pulse Rate [ 79 From Monitor] Respiratory 20 19 20 Rate Blood Pressure 120/81 115/81 O2 Sat by Pulse 95 100 98 Oximetry - General Appearance General appearance: frail Respiratory: Present: Decreased Breath Sounds Cardiology: regular, S1S2 Gastrointestinal: normoactive bowel sounds (nasogastric tube in place) Integumentary: warm and dry Neurologic: aphasia Musculoskeletal: other (2+ edema to BLE) - Lab 10/14/20 05:04 10/14/20 05:04 Most recent lab results Calcium 8.5 mg/dL (8.4-10.2) 10/14/20 05:04 Phosphorus 3.00 mg/dL (2.5-4.5) 10/06/20 05:07 Magnesium 1.90 mg/dL (1.7-2.3) 10/06/20 05:07 Urine Creatinine 144.2 mg/dL (0.1-20.0) H 10/14/20 Unknown Urine Sodium 10 mmol/L 10/14/20 Unknown Urine Total Protein 97 mg/dL (5-11.8) H 10/14/20 Unknown Medications & Allergies - Medications Allergies/Adverse Reactions: Allergies No Known Allergies Allergy (Unverified 10/03/20 12:27) Home Medications: Home Medications Medication Instructions Recorded Confirmed Last Taken Type Unobtainable 10/10/20 10/10/20 Unknown History Active Medications: Generic Name Dose Route Start Last Admin Trade Name Freq PRN Reason Stop Dose Admin Acetaminophen 650 mg 10/03/20 02:10 10/06/20 15:28 Acetaminophen 325 Mg Tab PO 650 mg Q4H PRN Administration Pain MILD(1-3)/Fever >100.5/ROMERO Al Hydrox/Mg Hydrox/Simethicone 30 ml 10/03/20 02:10 Alum-Mag Hydroxide-Simethicone [phone]/5ml Oral Liqd 30 Ml PO Q4H PRN Indigestion Lipase/Protease/Amylase 1 each 10/03/20 16:51 Lipase 10,500/Protease 25,000/Amylase 43,750 (Units) Dr Reis FEEDTUBE PRN PRN For Clogged Feeding Tube Dextrose 0 ml 10/02/20 22:49 10/14/20 12:30 Dextrose 50% In Water (25gm) 50 Ml Syringe IV 10 ml Q30MIN PRN Administration Hypoglycemia Protocol Ferrous Sulfate 325 mg 10/03/20 10:00 10/14/20 12:25 Ferrous Sulfate 325 Mg Tab PO 325 mg QDAY JOSE Administration Folic Acid 1 mg 10/03/20 10:00 10/14/20 12:26 Folic Acid 1 Mg Tab PO 1 mg QDAY JOSE Administration Sodium Chloride 153.8 meq/ 1,038.45 mls @ 100 mls/hr 10/09/20 13:00 10/14/20 02:30 Dextrose IV 100 mls/hr DIRECT JOSE Administration Levetiracetam 250 mg/ Dextrose 102.5 mls @ 400 mls/hr 10/10/20 22:00 10/14/20 11:15 IV 400 mls/hr Q12HR JOSE Administration Thiamine HCl 300 mg/ Sodium 53 mls @ 100 mls/hr 10/11/20 14:00 10/14/20 10:01 Chloride IV 10/15/20 23:59 100 mls/hr QDAY JOSE Administration Magnesium Hydroxide 30 ml 10/03/20 02:10 Magnesium Hydroxide (Mom) Oral Liqd Udc PO Q4H PRN Constipation Metoclopramide HCl 10 mg 10/03/20 02:10 Metoclopramide 10 Mg/2 Ml Inj IV Q6H PRN Nausea And Vomiting Multivitamins 1 each 10/03/20 10:00 10/14/20 12:26 Multivitamins ,Therapeutic Tab PO 1 each QDAY JOSE Administration Ondansetron HCl 4 mg 10/03/20 02:10 10/07/20 23:19 Ondansetron 4 Mg/2 Ml Inj IV 4 mg Q8H PRN Administration Nausea And Vomiting Oxycodone/Acetaminophen 1 tab 10/03/20 02:10 Oxycodone /Acetaminophen 5-325mg Tab PO Q6H PRN Pain, Moderate (4-6) Pantoprazole Sodium 40 mg 10/04/20 15:00 10/14/20 10:01 Pantoprazole 40 Mg Inj IV 40 mg QDAY JOSE Administration Promethazine HCl 25 mg 10/03/20 02:10 Promethazine 25 Mg Rect Supp MA Q6H PRN N/V IF NPO AND NO IV ACCESS Senna 8.6 mg 10/03/20 02:10 Sennosides 8.6 Mg Tab PO Q12HR PRN Constipation Simple Syrup 15 ml 10/03/20 16:51 Simple Syrup 15 Ml FEEDTUBE PRN PRN Hypoglycemia Simple Syrup 30 ml 10/03/20 16:51 Simple Syrup 15 Ml FEEDTUBE PRN PRN Hypoglycemia Sodium Bicarbonate 325 mg 10/03/20 16:51 Sodium Bicarbonate 325 Mg Tab FEEDTUBE PRN PRN For Clogged Feeding Tube Sodium Chloride 2 gm 10/09/20 12:00 10/14/20 13:38 Sodium Chloride 1 Gm Tab PO 2 gm TID JOSE Administration
[2020-10-14] MEDS ORDERED: FUROSEMIDE 20 MG TAB FEEDTUBE ONE (15:00)
[2020-10-14 16:49] LABS: Calcium 8.5 mg/dL (8.4-10.2)
[2020-10-15] MEDS: WATER IV SCH ×2 (01:52→12:18)
[2020-10-15] MEDS: SODIUM CHLORIDE IV SCH ×2 (01:52→12:18)
[2020-10-15] MEDS: DEXTROSE 10% IV SCH ×2 (01:52→12:18)
[2020-10-15 06:42] LABS: Hematocrit 29.9 % (35.5-45.6); Hemoglobin 9.4 gm/dl (11.8-15.2); Mean Corpuscular HGB Conc 31 % (32-34); Mean Corpuscular Volume 76 fl (84-94); Red Blood Count 3.93 M/mm3 (3.65-5.03)
[2020-10-15 07:01] LABS: Calcium 8.6 mg/dL (8.4-10.2)
[2020-10-15 07:06] LABS: Red Cell Distribution Width 34.2 % (13.2-15.2)
[2020-10-15] MEDS ORDERED: FUROSEMIDE 40 MG/4 ML INJ IV ONE (08:00)
[2020-10-15] MEDS ORDERED: ETOMIDATE 20 MG/10 ML INJ IV ONE ×2 (08:39→09:00)
[2020-10-15] MEDS ORDERED: ROCURONIUM 50 MG/5 ML INJ IV ONE ×3 (08:39→09:00)
--- NOTE | 2020-10-15 09:05 | Event Note ---
Date: 10/15/20 I was asked by the hospitalist, Dr. Rosa, to come up and intubate the patient secondary to respiratory distress. Dr. Rosa had already spoken with the patient's family and the patient remains a full code. The patient is altered, encephalopathic. He has a nonrebreather on and he is at 96% oxygen saturation, but he has significant tachypnea, some accessory muscle use, and coarse breath sounds and snoring respirations are heard. Respiratory therapy is at bedside. A timeout was done. The patient received 10 mg of etomidate and 90 mg of rocuronium. Once there was appropriate sedation and paralysis, the patient was intubated using the glide scope. I used a MAC 3 blade. The vocal cords are visible but the area does appear quite swollen. I was able to place a 7.5 endotracheal tube between the vocal cords down to about 24 cm at the lips. The bulb was inflated with 7 cc of air. There was condensation seen within the tube, bilateral breath sounds heard, color change capnography. Overall this appears to be a successful intubation without any obvious complications from this procedure.
--- NOTE | 2020-10-15 09:20 | XRay Report ---
CHEST 1 VIEW 10/15/2020 9:00 AM INDICATION / CLINICAL INFORMATION: Shortness of breath, ETT placement. COMPARISON: One view of the chest from 10/12/2020. FINDINGS: SUPPORT DEVICES: An ET tube has been placed with the tip located 5 cm above the ekri. Unchanged eso phagogastric tube. HEART / MEDIASTINUM: Stable. LUNGS / PLEURA: There are increased bilateral pleural-parenchymal opacities. No significant pleural e ffusion. No pneumothorax. ADDITIONAL FINDINGS: No significant additional findings. IMPRESSION: 1. Satisfactory positioning of the ET tube. 2. Increased bilateral pleural-parenchymal opacities. Signer Name: Mike Galicia MD Signed: 10/15/2020 9:16 AM Workstation Name: [id number]
--- NOTE | 2020-10-15 09:26 | Progress Note ---
Assessment and Plan Assessment and plan: -- Acute encephalopathy CT angio of the head that is a significant narrowing seen in both posterior cere bral arteries and no signs of large vessel CT of the head no acute finding but showed a cerebral atrophy with suspicious atrophy and atherosclerotic calcification within the distal right middle cereb ral artery. MRI brain without any acute findings Neurology consulted, will follow EEG -cannot r/o acute seizure with postictal state --Left-sided hemiparesis with significant aphasia Placed on stroke protocol, neurology following, failed swallow eval MRI brain without any new findings, EEG ordered and pending Aspirin due to severe anemia, will initiate Lipitor when able to tolerate tube feeding -- Hypothermia, resolved Monitor body temperature Applied bed hugger -- Pulmonary infiltrate in right lung on CXR COVID-19 test is negative Likely secondary to pneumonia Start empiric antibiotics Rocephin and azithromycin -- Atherosclerotic cerebrovascular disease Safety and fall precaution at all times PT OT consult follow-up with recommendation for discharge placement --Severe anemia -possible GI bleed? Likely 2/2 to malnutrion-patient has no evidence of active bleeding and has normal PLT Monitor H&Hadmission H&H 6.7> 5.8 S/p 3 units of blood transfusion Iron and multivitamin supplement Check iron level, ordered stool for occult blood GI consulted -- Severe protein-calorie malnutrition family development extension specialist consult, failed swallow eval Order for Dobbhoff tube and Tube feeding --Persistent hypoglycemia, patient placed D10, will also initiate tube feeding -- DVT prophylaxis ACD hold Subcutaneous anticoagulant due to low H/H Daily clinical course: 10/03/20: CT of the head no acute finding but showed a cerebral atrophy with suspicious atrophy and atherosclerotic calcification within the distal right middle cerebral artery. Patient also noted with hemoglobin of 5.8, received 1 unit of packed RBC and ordered for tomorrow Neuro is consulted, Covid test is negative We will check stool for occult blood MRI brain ordered we will follow Will hold any oral medicine until cleared by speech or passes the bedside swallow eval Patient noted to have severe hypoglycemic, will place on D10W Follow H&H and BMP Continue current management plan as dictated in the HPI 10/04/20: no acute findings in MRI, pending EEG, s/p 3 units PRBC transfusion. follow speech eval, TF for now, h/h stable, GI consulted - follow recommendation. 10/05/20 Patient with acute encephalopathy, severe anemia s/p PRBC transfusion. GI following. Hgb 9.8 today. Will repeat in am. Left sided weakness. MRI negative for stroke. Neurology following. 10/06/20 Patient with encephalopathy, severe anemia s/p PRBC transfusion. Hgb 9.4 today. Patient has left sided weakness but MRI neg. Patient needs PEG tube. Will talk with family. Hypokalemia. Replace Q6h X 2. Check Mg 10/07/20 Patient with encephalopathy, severe anemia s/p PRBC transfusion. Hgb 9.6 today. Patient has left sided weakness but MRI neg. Patient needs PEG tube. Will talk with family. Hyponatremia of 128. This may be due to D10% he was on prior to NG tube. Stopped 10% Dextrose. Consulted Nephrology 10/08/20 Patient with encephalopathy, severe anemia s/p PRBC transfusion. Hgb 9.6 today. Patient has left sided weakness but MRI neg. Patient needs PEG tube. Hyponatremia worse today 126. This is due to D10% resumed last night because of hypoglycemia. I discussed with Dr. Herrera. Stop 10%Dextrose. Start D5NS Spoke to daughter, Cindy Singh, yesterday and gave update. She wants PEG tube placed. Discussed plan with PAKO Chambers. He wants to do upper and lower endoscopy to evaluate anemia, before PEG tube 10/09/20 Patient with encephalopathy, severe anemia s/p PRBC transfusion. Hgb 10.3 today. Patient has left sided weakness but MRI neg. Patient needs PEG tube. Hyponatremia still present Na 126 today. This is due to D10% resumed again last night because of hypoglycemia. Nephrology had recommended D5NS but 10% Dextrose restarted overnight because of hypoglycemia. Nurses unable to place NG tube. I discussed with Dr. Otero today and he will do. Spoke to daughter, Cindy Singh, yesterday and gave update. She wants PEG tube placed. Discussed plan with PAKO Chambers. He wants to do upper and lower endoscopy to evaluate anemia, before PEG tube Today Na still 126. I discussed with Dr. Herrera and he recommended D10NS. I called Pharmacy. They will mix special D10NS drip. Patient had bilateral pneumonia on CXR therefore started iv Antibiotics, blood cultures. yesterday. Consulted ID 10/10/2020. Patient remains encephalopathic with hemoglobin stabilizing yesterday. Recheck H&H. Patient with left-sided weakness but MRI negative. Fluoroscopic NG tube placement completed yesterday. Await GI to perform EGD and colonoscopy. Follow-up hyponatremia with BMP results. Dr. Aldrich Spoke to daughter, Cindy Singh, and gave update. Daughter wants PEG tube placed. Continue IV antibiotics for bilateral pneumonia. ID consulted. Follow-up procalcitonin levels. 10/11/2020. Patient's hemoglobin remained stable today at 9.5. However, patient noted to be hypotensive with systolic blood pressure of 83. Patient received NS 250 cc bolus with improvement of blood pressure systolically to 123. GI plans to perform EGD/colonoscopy tomorrow. Hyponatremia improving. Start IV fluid of normal saline at 75 cc an hour x1 L 10/12/2020. Patient noted to have some gurgling of the upper airway. NG tube was placed to low intermittent suction. Check chest x-ray and KUB to rule out aspiration and/or ileus. Continue to monitor. H/H remained stable. ID stopped antibiotics due to normal procalcitonin. Speech evaluation 10/13/2020. Patient remains encephalopathic. I discussed overall mental status with the daughter yesterday and updated her with plan of care. Neurology reports: CT angio of the head that is a significant narrowing seen in both posterior c erebral arteries - and no signs of large vessel -CT of the head no acute finding but showed a cerebral atrophy with suspicious atrophy and atherosclerotic calcification within the distal right middle cerebral artery. -MRI brain without any acute findings - EEG completed yesterday remarkable for diffuse slowing 3-4 Hz and with occassional triphasic waves , no epileptiform discharges is noted -- full report to follow -Repeat MRI brain showed no acute finding Keppra was decreased to 250 mg IV twice daily and thiamine was added x3 days. No LP for now due to lack of any inflammatory findings. Repeat EEG per neurology. Sodium level has improved. Serum creatinine has increased to 1.6 today. Avoid nephrotoxic agents and monitor I/O's daily. Salt tabs 2 g 3 times daily per nephrology 10/14/2020. Patient remains encephalopathic. MRI, EEG and CT results noted above. Continue supportive care. Defer to neurology recommendations regarding mental status/encephalopathy. Continue salt tabs per nephrology. Follow-up BMP. Avoid nephrotoxic agents and monitor I/O's daily. Continue NG tube feedings. PEG placement per GI. 10/15/2020. Patient noted to have significant respiratory distress. Patient with tachypnea, some accessory muscle use, labored breathing and coarse breath sounds and sonorous respirations. Dr. Maldonado from the emergency department intubated the patient. Dr. Floyd was consulted and notified. The patient will be transferred to the ICU and continued on mechanical ventilation. Follow-up chest x-ray. The high probability of a clinically significant, sudden or life threatening deterioration of the [respiratory] system(s) required my full and direct attention, intervention and personal management. The aggregate critical care time was [33] minutes. This time is in addition to time spent performing reported procedures but includes the following: [X] Data Review and interpretation [X] Patient assessment and monitoring of vital signs [X] Documentation [X] Medication orders and management History Interval history: Patient somnolent with agonal respirations. Hospitalist Physical - Constitutional Vitals: Temp Pulse Resp BP Pulse Ox 98.6 F 79 19 139/85 100 10/15/20 04:27 10/15/20 05:00 10/15/20 05:00 10/15/20 04:27 10/15/20 05:00 General appearance: Present: other (Not responsive to voice or touch. NG tube in place. Laying with mouth open and breathing through mouth.) - EENT Eyes: Present: PERRL, EOM intact ENT: hearing intact, clear oral mucosa, dentition normal - Neck Neck: Present: supple, normal ROM - Respiratory Respiratory effort: normal Respiratory: bilateral: diminished, rales, rhonchi - Cardiovascular Rhythm: regular Heart Sounds: Present: S1 & S2. Absent: gallop, rub - Extremities Extremities: no ischemia, No edema, Full ROM - Abdominal General gastrointestinal: soft, non-tender, non-distended, normal bowel sounds - Integumentary Integumentary: Present: clear, warm, dry - Neurologic Neurologic: CNII-XII intact, moves all extremities HEART Score - HEART Score Troponin: Troponin T < 0.010 ng/mL (0.00-0.029) 10/02/20 23:17 Results - Labs CBC & Chem 7: 10/15/20 05:50 10/15/20 05:50 Labs: Laboratory Last Values WBC 14.1 K/mm3 (4.5-11.0) H 10/15/20 05:50 RBC 3.93 M/mm3 (3.65-5.03) 10/15/20 05:50 Hgb 9.4 gm/dl (11.8-15.2) L 10/15/20 05:50 Hct 29.9 % (35.5-45.6) L 10/15/20 05:50 MCV 76 fl (84-94) L 10/15/20 05:50 MCH 24 pg (28-32) L 10/15/20 05:50 MCHC 31 % (32-34) L 10/15/20 05:50 RDW 34.2 % (13.2-15.2) H 10/15/20 05:50 Plt Count 83 K/mm3 (140-440) L 10/14/20 05:04 Lymph % (Auto) Mold Laminator 10/10/20 10:58 [place] % (Auto) Mold Laminator 10/10/20 10:58 Eos % (Auto) Mold Laminator 10/10/20 10:58 Baso % (Auto) Mold Laminator 10/10/20 10:58 Lymph # (Auto) Mold Laminator 10/10/20 10:58 [place] # (Auto) Mold Laminator 10/10/20 10:58 Eos # (Auto) Mold Laminator 10/10/20 10:58 Baso # (Auto) Mold Laminator 10/10/20 10:58 Add Manual Diff Complete 10/14/20 05:04 Total Counted 100 10/14/20 05:04 Seg Neutrophils % Mold Laminator 10/10/20 10:58 Seg Neuts % (Manual) 89.0 % (40.0-70.0) H 10/14/20 05:04 Band Neutrophils % 4.0 % 10/14/20 05:04 Lymphocytes % (Manual) 4.0 % (13.4-35.0) L 10/14/20 05:04 Monocytes % (Manual) 3.0 % (0.0-7.3) 10/14/20 05:04 Eosinophils % (Manual) 1.0 % (0.0-4.3) 10/13/20 05:24 Basophils % (Manual) 2.0 % (0.0-1.8) H 10/10/20 10:58 Nucleated RBC % 1.0 % (0.0-0.9) H 10/14/20 05:04 Seg Neutrophils # Mold Laminator 10/10/20 10:58 Seg Neutrophils # Man 15.5 K/mm3 (1.8-7.7) H 10/14/20 05:04 Band Neutrophils # 0.7 K/mm3 10/14/20 05:04 Lymphocytes # (Manual) 0.7 K/mm3 (1.2-5.4) L 10/14/20 05:04 Abs React Lymphs (Man) 0.0 K/mm3 10/14/20 05:04 Monocytes # (Manual) 0.5 K/mm3 (0.0-0.8) 10/14/20 05:04 Eosinophils # (Manual) 0.0 K/mm3 (0.0-0.4) 10/14/20 05:04 Basophils # (Manual) 0.0 K/mm3 (0.0-0.1) 10/14/20 05:04 Metamyelocytes # 0.0 K/mm3 10/14/20 05:04 Myelocytes # 0.0 K/mm3 10/14/20 05:04 Promyelocytes # 0.0 K/mm3 10/14/20 05:04 Blast Cells # 0.0 K/mm3 10/14/20 05:04 WBC Morphology Not Reportable 10/14/20 05:04 Hypersegmented Neuts Not Reportable 10/14/20 05:04 Hyposegmented Neuts Not Reportable 10/14/20 05:04 Hypogranular Neuts Not Reportable 10/14/20 05:04 Smudge Cells Not Reportable 10/14/20 05:04 Toxic Granulation Not Reportable 10/14/20 05:04 Toxic Vacuolation Not Reportable 10/14/20 05:04 Dohle Bodies Not Reportable 10/14/20 05:04 Pelger-Huet Anomaly Not Reportable 10/14/20 05:04 Andrés Rods Not Reportable 10/14/20 05:04 Platelet Estimate Consistent w auto 10/14/20 05:04 Clumped Platelets Not Reportable 10/14/20 05:04 Plt Clumps, EDTA Not Reportable 10/14/20 05:04 Large Platelets Not Reportable 10/14/20 05:04 Giant Platelets Not Reportable 10/14/20 05:04 Platelet Satelliting Not Reportable 10/14/20 05:04 Plt Morphology Comment Not Reportable 10/14/20 05:04 RBC Morphology Not Reportable 10/14/20 05:04 Dimorphic RBCs Not Reportable 10/14/20 05:04 Polychromasia Not Reportable 10/14/20 05:04 Hypochromasia 1+ 10/14/20 05:04 Poikilocytosis 2+ 10/14/20 05:04 Anisocytosis 3+ 10/14/20 05:04 Microcytosis Not Reportable 10/14/20 05:04 Macrocytosis Not Reportable 10/14/20 05:04 Spherocytes Not Reportable 10/14/20 05:04 Pappenheimer Bodies Not Reportable 10/14/20 05:04 Sickle Cells Not Reportable 10/14/20 05:04 Target Cells Few 10/14/20 05:04 Tear Drop Cells Few 10/14/20 05:04 Ovalocytes Few 10/14/20 05:04 Helmet Cells Not Reportable 10/14/20 05:04 [place] Bodies Not Reportable 10/14/20 05:04 [place] Rings Not Reportable 10/14/20 05:04 [place] Cells 2+ 10/14/20 05:04 Bite Cells Not Reportable 10/14/20 05:04 Crenated Cell Not Reportable 10/14/20 05:04 Elliptocytes Not Reportable 10/14/20 05:04 Acanthocytes (Spur) Not Reportable 10/14/20 05:04 Rouleaux Not Reportable 10/14/20 05:04 Hemoglobin C Crystals Not Reportable 10/14/20 05:04 Schistocytes Rare 10/14/20 05:04 Malaria parasites Not Reportable 10/14/20 05:04 Dereck Bodies Not Reportable 10/14/20 05:04 Hem Pathologist Commnt No 10/14/20 05:04 PT 20.8 Sec. (12.2-14.9) H 10/02/20 23:17 INR 1.74 (0.87-1.13) H 10/02/20 23:17 APTT 57.6 Sec. (24.2-36.6) H 10/02/20 23:17 Thrombin Time 17.8 Sec. (15.1-19.6) 10/02/20 23:17 ABG pH 7.052 (7.320-7.450) L 10/15/20 07:59 POC ABG pCO2 65.0 mmHg (32.0-48.0) H 10/15/20 07:59 POC ABG pO2 214.1 mmHg (83-108) H 10/15/20 07:59 POC ABG HCO3 17.7 10/15/20 07:59 ABG O2 Saturation 99.4 (0-100) 10/15/20 07:59 POC ABG Base Excess -12.9 10/15/20 07:59 ABG Hemoglobin 10.6 (12.0-17.5) L 10/15/20 07:59 ABG Oxyhemoglobin 98.3 (94-98) H 10/15/20 07:59 ABG Methemoglobin 0.3 (0.0-1.5) 10/15/20 07:59 ABG Sodium 130.6 mmol/L (136.0-145.0) L 10/15/20 07:59 ABG Potassium 4.4 mmol/L (3.40-4.50) 10/15/20 07:59 ABG Chloride 110.0 mmol/L (98-107) H 10/15/20 07:59 ABG Glucose 124 mg/dL (65-95) H 10/15/20 07:59 Carboxyhemoglobin 0.8 (0.5-1.5) 10/15/20 07:59 FiO2 % 100.0 10/15/20 07:59 Sodium 134 mmol/L (137-145) L 10/15/20 05:50 Potassium 4.6 mmol/L (3.6-5.0) 10/15/20 05:50 Chloride 109.9 mmol/L (98-107) H 10/15/20 05:50 Carbon Dioxide 18 mmol/L (22-30) L 10/15/20 05:50 Anion Gap 11 mmol/L 10/15/20 05:50 BUN 26 mg/dL (9-20) H 10/15/20 05:50 Creatinine 1.5 mg/dL (0.8-1.3) H 10/15/20 05:50 Estimated GFR 55 ml/min 10/15/20 05:50 BUN/Creatinine Ratio 17 % 10/15/20 05:50 Glucose 125 mg/dL (75-100) H 10/15/20 05:50 POC Glucose 114 mg/dL (70-105) H 10/15/20 07:36 Hemoglobin A1c 5.2 % (4-6) 10/03/20 05:57 Osmolality 267 Mosm/kg 10/07/20 13:54 Lactic Acid 1.50 mmol/L (0.7-2.0) 10/03/20 04:43 Calcium 8.6 mg/dL (8.4-10.2) 10/15/20 05:50 Phosphorus 3.00 mg/dL (2.5-4.5) 10/06/20 05:07 Magnesium 1.90 mg/dL (1.7-2.3) 10/06/20 05:07 Iron 42 ug/dL (49-181) L 10/03/20 05:57 TIBC 305 mcg/dL (250-450) 10/03/20 05:57 Total Bilirubin 0.60 mg/dL (0.1-1.2) 10/04/20 05:59 AST 26 units/L (5-40) 10/04/20 05:59 ALT 15 units/L (7-56) 10/04/20 05:59 Alkaline Phosphatase 105 units/L (35-129) 10/04/20 05:59 Ammonia 22.0 umol/L (25-60) L 10/02/20 23:17 Total Creatine Kinase 88 units/L (55-170) 10/02/20 23:17 CK-MB (CK-2) 7.5 ng/mL (0.0-4.0) H 10/02/20 23:17 CK-MB (CK-2) Rel Index 8.5 (0-4) H 10/02/20 23:17 Troponin T < 0.010 ng/mL (0.00-0.029) 10/02/20 23:17 Total Protein 6.4 g/dL (6.3-8.2) 10/04/20 05:59 Albumin 2.6 g/dL (3.9-5) L 10/04/20 05:59 Albumin/Globulin Ratio 0.7 % 10/04/20 05:59 Procalcitonin 0.10 ng/mL (<0.15) 10/10/20 10:58 TSH 2.130 mlU/mL (0.270-4.200) 10/07/20 13:54 Total Cortisol 17.4 mcg/dL () 10/09/20 02:46 Arterial Blood Glucose 124 mg/dL (65-95) H 10/15/20 07:59 Arterial Blood Ionized Calcium 5.3 mg/dL (4.6-5.3) 10/15/20 07:59 Urine Eosinophils None seen (None Seen) 10/14/20 Unknown Urine Osmolality 223 Mosm/kg 10/07/20 Unknown Urine Creatinine 144.2 mg/dL (0.1-20.0) H 10/14/20 Unknown Protein/Creatinin Ratio 0.67 10/14/20 Unknown Urine Sodium 10 mmol/L 10/14/20 Unknown Urine Total Protein 97 mg/dL (5-11.8) H 10/14/20 Unknown Salicylates < 0.3 mg/dL (2.8-20.0) L 10/02/20 23:17 Acetaminophen 5.0 ug/mL (10.0-30.0) L 10/02/20 23:17 Plasma/Serum Alcohol < 0.01 % (0-0.07) 10/02/20 23:17 Coronavirus (PCR) Negative (Negative) 10/14/20 08:00 Blood Type O POSITIVE 10/03/20 05:57 Antibody Screen Negative 10/03/20 05:57 Crossmatch See Detail 10/03/20 05:57 Jackson/IV: Voiding Method Condom Catheter Active Medications - Current Medications Current Medications: Generic Name Dose Route Start Last Admin Trade Name Freq PRN Reason Stop Dose Admin Acetaminophen 650 mg 10/03/20 02:10 10/06/20 15:28 Acetaminophen 325 Mg Tab PO 650 mg Q4H PRN Administration Pain MILD(1-3)/Fever >100.5/ROMERO Al Hydrox/Mg Hydrox/Simethicone 30 ml 10/03/20 02:10 Alum-Mag Hydroxide-Simethicone 440-754-26hn/5ml Oral Liqd 30 Ml PO Q4H PRN Indigestion Lipase/Protease/Amylase 1 each 10/03/20 16:51 Lipase 10,500/Protease 25,000/Amylase 43,750 (Units) Dr Reis FEEDTUBE PRN PRN For Clogged Feeding Tube Dextrose 0 ml 10/02/20 22:49 10/14/20 12:30 Dextrose 50% In Water (25gm) 50 Ml Syringe IV 10 ml Q30MIN PRN Administration Hypoglycemia Protocol Ferrous Sulfate 325 mg 10/03/20 10:00 10/14/20 12:25 Ferrous Sulfate 325 Mg Tab PO 325 mg QDAY JOSE Administration Folic Acid 1 mg 10/03/20 10:00 10/14/20 12:26 Folic Acid 1 Mg Tab PO 1 mg QDAY JOSE Administration Sodium Chloride 153.8 meq/ 1,038.45 mls @ 100 mls/hr 10/09/20 13:00 10/15/20 01:52 Dextrose IV 100 mls/hr DIRECT JOSE Administration Levetiracetam 250 mg/ Dextrose 102.5 mls @ 400 mls/hr 10/10/20 22:00 10/14/20 21:03 IV 400 mls/hr Q12HR JOSE Administration Thiamine HCl 300 mg/ Sodium 53 mls @ 100 mls/hr 10/11/20 14:00 10/14/20 10:01 Chloride IV 10/15/20 23:59 100 mls/hr QDAY JOSE Administration Magnesium Hydroxide 30 ml 10/03/20 02:10 Magnesium Hydroxide (Mom) Oral Liqd Udc PO Q4H PRN Constipation Metoclopramide HCl 10 mg 10/03/20 02:10 Metoclopramide 10 Mg/2 Ml Inj IV Q6H PRN Nausea And Vomiting Multivitamins 1 each 10/03/20 10:00 10/14/20 12:26 Multivitamins ,Therapeutic Tab PO 1 each QDAY JOSE Administration Ondansetron HCl 4 mg 10/03/20 02:10 10/07/20 23:19 Ondansetron 4 Mg/2 Ml Inj IV 4 mg Q8H PRN Administration Nausea And Vomiting Oxycodone/Acetaminophen 1 tab 10/03/20 02:10 Oxycodone /Acetaminophen 5-325mg Tab PO Q6H PRN Pain, Moderate (4-6) Pantoprazole Sodium 40 mg 10/04/20 15:00 10/14/20 10:01 Pantoprazole 40 Mg Inj IV 40 mg QDAY JOSE Administration Promethazine HCl 25 mg 10/03/20 02:10 Promethazine 25 Mg Rect Supp DE Q6H PRN N/V IF NPO AND NO IV ACCESS Senna 8.6 mg 10/03/20 02:10 Sennosides 8.6 Mg Tab PO Q12HR PRN Constipation Simple Syrup 15 ml 10/03/20 16:51 Simple Syrup 15 Ml FEEDTUBE PRN PRN Hypoglycemia Simple Syrup 30 ml 10/03/20 16:51 Simple Syrup 15 Ml FEEDTUBE PRN PRN Hypoglycemia Sodium Bicarbonate 325 mg 10/03/20 16:51 Sodium Bicarbonate 325 Mg Tab FEEDTUBE PRN PRN For Clogged Feeding Tube Sodium Chloride 2 gm 10/09/20 12:00 10/14/20 21:03 Sodium Chloride 1 Gm Tab PO 2 gm TID JOSE Administration Nutrition/Malnutrition Assess - Dietary Evaluation Nutrition/Malnutrition Findings: Nutrition Notes Start: 10/03/20 08:51 Freq: Status: Active Protocol: Document 10/14/20 09:33 SG (Rec: 10/14/20 09:51 SG [email or web address]) Nutrition Notes Need for Assessment generated from: MD Order Initial or Follow up Reassessment Current Diagnosis Diabetes Other Pertinent Diagnosis AMS, hypothermia, pneu, anemia , atherosclerotic cerebrovascular disease Current Diet NPO Labs/Tests K 5.3 BUN 25 Creatinine 1.5 Na 132 Pertinent Medications Reviewed Height 5 ft 10 in Weight 92.1 kg Sandy Body Weight (kg) 75.45 BMI 29.1 Weight change and time frame Wt increase likely due to edema. Weight Status Overweight Subjective/Other Information MD consult for TF. New NG tube placed. PEG placement pending Percent of energy/protein needs met: 0% /0% Burn Absent Trauma Absent Current % PO Negligible Minimum of two criteria No Fluid Accumulation Moderate to Severe (severe) #1 Nutrition Diagnosis Swallowing difficulty Diagnosis Progress(for reassessment Continues documentation) Is patient on ventilator? No Is Patient Ambulatory and/or Out of Bed No REE-([facility]-confined to bed) 1993.892 Kcal/Kg value to use for calculation 20 Approximate Energy Requirements Using 1842 kcal/Kg Calculation Used for Recommendations Kcal/kg Additional Notes Protein: (1-1.2g/kg) 84-101g Fluid: 1 ml/kcal Nutrition Intervention Change Diet Order: Start TF Nutrition Support: Nepro at 40ml/hour For hyponatremia flush 75 ml q4h, once resolved resume flush at 170 ml q4h Kcal 1,728 Protein (gm) 78 Fluid (mL) 698 Goal #1 Meet at least 75% of protein and energy needs via TF Follow-Up By: 10/16/20 Additional Comments F/u: TF start and tolerance
[2020-10-15] MEDS ORDERED: NORepinephrine/NS 4 MG-250 ML 4 MG/250 ML BAG IV ONE (11:03)
[2020-10-15] MEDS ORDERED: SODIUM CHLORIDE 0.9% 1000 ML 1,000 ML ONE (11:08)
[2020-10-15] MEDS: NORepinephrine/NS 4 MG-250 ML 4 MG/250 ML BAG IV SCH (11:15)
[2020-10-15] MEDS ORDERED: cefTRIAXone/NS 1 GM/50 ML 1 GM/50 ML BAG IV SCH (12:00)
--- NOTE | 2020-10-15 12:12 | Progress Note ---
Assessment and Plan Assessment: Acute encephalopathy Hyponatremia BETSY possibly 2/2 prerenal/ATN Hypothermia Pulmonary infiltrate in right lung on CXR Atherosclerotic cerebrovascular disease Severe anemia -possible GI bleed Left sided hemiparesis with aphasia Acute respiratory distress- now intubated Plan: Labs reviewed, most recent serum Na level was 134 today, yesterday's serum Na level was 132 Hold sodium chloride tablet 2 g po TID S/p Lasix 40 mg IV x 1 dose today Start Lasix 40 mg IV daily for now, will adjust as needed Goal sodium correction of < 8 mmol/l within 24 hrs to try to minimize risk of ODS Renal function with slight improvement, SCr level was 1.5 today, yesterday's SCr level was 1.5 Started on levophed drip Started on D10 infusion for hypoglycemia Monitor serum Na level Repeat serum Na level at 1700 Calculated protein to cr ratio 0.6 g, no urine eosinophils Renally dose meds Monitor I/O's daily Jackson Catheter: No (Condom Catheter) Intake= 2442 ml Output= 1100 ml (Net= 1342 ml) Renal plan reviewed by Dr Cam Subjective Principal diagnosis: hyponatremia, encephalopathy Interval history: Pt now in ICU s/p intubation today, started on levophed drip for worsening hypotension and D10 infusion for hypoglycemia Objective - Vital Signs Vital signs: Vital Signs - 12hr 10/15/20 10/15/20 10/15/20 02:00 04:27 05:00 Temperature 98.6 F Pulse Rate 70 73 Pulse Rate [ 79 Apical] Pulse Rate [ 79 From Monitor] Respiratory 18 19 Rate Blood Pressure 139/85 O2 Sat by Pulse 98 100 Oximetry 10/15/20 10/15/20 09:00 11:53 Temperature Pulse Rate 25 L 25 L Pulse Rate [ Apical] Pulse Rate [ From Monitor] Respiratory Rate Blood Pressure 89/61 99/68 O2 Sat by Pulse 100 100 Oximetry - General Appearance General appearance: intubated, frail EENT: ATNC Respiratory: Present: Decreased Breath Sounds Cardiology: S1S2 Gastrointestinal: normoactive bowel sounds (nasogastric tube in place) Integumentary: warm and dry Neurologic: other (intubated on ventilator) Musculoskeletal: other (2+ edema to BLE) Psychiatric: other (unable to assess) - Lab 10/15/20 05:50 10/15/20 05:50 Most recent lab results ABG pH 7.200 (7.320-7.450) L 10/15/20 10:50 ABG O2 Saturation 99.4 (0-100) 10/15/20 07:59 Calcium 8.6 mg/dL (8.4-10.2) 10/15/20 05:50 Phosphorus 3.00 mg/dL (2.5-4.5) 10/06/20 05:07 Magnesium 1.90 mg/dL (1.7-2.3) 10/06/20 05:07 Urine Creatinine 144.2 mg/dL (0.1-20.0) H 10/14/20 Unknown Urine Sodium 10 mmol/L 10/14/20 Unknown Urine Total Protein 97 mg/dL (5-11.8) H 10/14/20 Unknown Medications & Allergies - Medications Allergies/Adverse Reactions: Allergies No Known Allergies Allergy (Unverified 10/03/20 12:27) Home Medications: Home Medications Medication Instructions Recorded Confirmed Last Taken Type Unobtainable 10/10/20 10/10/20 Unknown History Active Medications: Generic Name Dose Route Start Last Admin Trade Name Freq PRN Reason Stop Dose Admin Acetaminophen 650 mg 10/03/20 02:10 10/06/20 15:28 Acetaminophen 325 Mg Tab PO 650 mg Q4H PRN Administration Pain MILD(1-3)/Fever >100.5/ROMERO Al Hydrox/Mg Hydrox/Simethicone 30 ml 10/03/20 02:10 Alum-Mag Hydroxide-Simethicone 230-570-58po/5ml Oral Liqd 30 Ml PO Q4H PRN Indigestion Lipase/Protease/Amylase 1 each 10/03/20 16:51 Lipase 10,500/Protease 25,000/Amylase 43,750 (Units) Dr Reis FEEDTUBE PRN PRN For Clogged Feeding Tube Dextrose 0 ml 10/02/20 22:49 10/14/20 12:30 Dextrose 50% In Water (25gm) 50 Ml Syringe IV 10 ml Q30MIN PRN Administration Hypoglycemia Protocol Ferrous Sulfate 325 mg 10/03/20 10:00 10/14/20 12:25 Ferrous Sulfate 325 Mg Tab PO 325 mg QDAY JOSE Administration Folic Acid 1 mg 10/03/20 10:00 10/14/20 12:26 Folic Acid 1 Mg Tab PO 1 mg QDAY JOSE Administration Sodium Chloride 153.8 meq/ 1,038.45 mls @ 100 mls/hr 10/09/20 13:00 10/15/20 01:52 Dextrose IV 100 mls/hr DIRECT JOSE Administration Levetiracetam 250 mg/ Dextrose 102.5 mls @ 400 mls/hr 10/10/20 22:00 10/14/20 21:03 IV 400 mls/hr Q12HR JOSE Administration Thiamine HCl 300 mg/ Sodium 53 mls @ 100 mls/hr 10/11/20 14:00 10/14/20 10:01 Chloride IV 10/15/20 23:59 100 mls/hr QDAY JOSE Administration Ceftriaxone Sodium 1 gm in 50 mls @ 100 mls/hr 10/15/20 12:00 Rocephin/Ns 1 Gm/50 Ml IV Q24H JOSE Protocol Magnesium Hydroxide 30 ml 10/03/20 02:10 Magnesium Hydroxide (Mom) Oral Liqd Udc PO Q4H PRN Constipation Metoclopramide HCl 10 mg 10/03/20 02:10 Metoclopramide 10 Mg/2 Ml Inj IV Q6H PRN Nausea And Vomiting Multivitamins 1 each 10/03/20 10:00 10/14/20 12:26 Multivitamins ,Therapeutic Tab PO 1 each QDAY JOSE Administration Ondansetron HCl 4 mg 10/03/20 02:10 10/07/20 23:19 Ondansetron 4 Mg/2 Ml Inj IV 4 mg Q8H PRN Administration Nausea And Vomiting Oxycodone/Acetaminophen 1 tab 10/03/20 02:10 Oxycodone /Acetaminophen 5-325mg Tab PO Q6H PRN Pain, Moderate (4-6) Pantoprazole Sodium 40 mg 10/04/20 15:00 10/14/20 10:01 Pantoprazole 40 Mg Inj IV 40 mg QDAY JOSE Administration Promethazine HCl 25 mg 10/03/20 02:10 Promethazine 25 Mg Rect Supp HI Q6H PRN N/V IF NPO AND NO IV ACCESS Senna 8.6 mg 10/03/20 02:10 Sennosides 8.6 Mg Tab PO Q12HR PRN Constipation Simple Syrup 15 ml 10/03/20 16:51 Simple Syrup 15 Ml FEEDTUBE PRN PRN Hypoglycemia Simple Syrup 30 ml 10/03/20 16:51 Simple Syrup 15 Ml FEEDTUBE PRN PRN Hypoglycemia Sodium Bicarbonate 325 mg 10/03/20 16:51 Sodium Bicarbonate 325 Mg Tab FEEDTUBE PRN PRN For Clogged Feeding Tube Sodium Chloride 2 gm 10/09/20 12:00 10/14/20 21:03 Sodium Chloride 1 Gm Tab PO 2 gm TID JOSE Administration
[2020-10-15] MEDS: SIMPLE SYRUP 15 ML FEEDTUBE PRN ×2 (12:17→17:43)
[2020-10-15] MEDS: levETIRAcetam 250 MG in DEXTROSE 5% IN WATER 100 ML IV SCH ×2 (12:20→21:37)
[2020-10-15 12:23] LABS: Band Neutrophils # (Manual) 2.3 K/mm3; Myelocytes # (Manual) 0.6 K/mm3; Total Cells Counted 100
[2020-10-15 12:24] LABS: Anisocytosis 3+; Burr Cells 2+; Hypochromasia 1+; Ovalocytes 1+; Platelet Estimate Consistent w Auto; Poikilocytosis 2+; Schistocytes Rare; Target Cells Few; Tear Drop Cells Few
[2020-10-15] MEDS ORDERED: SODIUM CHLORIDE 0.9% 1000 ML 1,000 ML IV ONE (12:30)
--- NOTE | 2020-10-15 12:46 | Consultation ---
History of Present Illness Consult date: 10/15/20 Requesting physician: LORENA WOOD Reason for consult: other (Acute Hypoxemic Respiratory Failure) History of present illness: PULMONARY/CCM CONSULT NOTE (Full dictation # [id number]) Please see dictated notes for full details Past History Past Medical History: GERD Past Surgical History: No surgical history Social history: no significant social history, alcohol abuse (Per patient his) Family history: no significant family history (Unable to get information from the patient secondary to altered mental status) Medications and Allergies Allergies Allergy/AdvReac Type Severity Reaction Status Date / Time No Known Allergies Allergy Unverified 10/03/20 12:27 Home Medications Medication Instructions Recorded Confirmed Last Taken Type Unobtainable 10/10/20 10/10/20 Unknown History Active Meds: Active Medications Acetaminophen (Acetaminophen 325 Mg Tab) 650 mg PO Q4H PRN PRN Reason: Pain MILD(1-3)/Fever >100.5/ROMERO Last Admin: 10/06/20 15:28 Dose: 650 mg Documented by: Al Hydrox/Mg Hydrox/Simethicone (Alum-Mag Hydroxide-Simethicone [id number]/5ml Oral Liqd 30 Ml) 30 ml PO Q4H PRN PRN Reason: Indigestion Lipase/Protease/Amylase (Lipase 10,500/Protease 25,000/Amylase 43,750 (Units) Dr Reis) 1 each FEEDTUBE PRN PRN PRN Reason: For Clogged Feeding Tube Dextrose (Dextrose 50% In Water (25gm) 50 Ml Syringe) 0 ml IV Q30MIN PRN; Protocol PRN Reason: Hypoglycemia Last Admin: 10/14/20 12:30 Dose: 10 ml Documented by: Ferrous Sulfate (Ferrous Sulfate 325 Mg Tab) 325 mg PO QDAY JOSE Last Admin: 10/14/20 12:25 Dose: 325 mg Documented by: Folic Acid (Folic Acid 1 Mg Tab) 1 mg PO QDAY JOSE Last Admin: 10/14/20 12:26 Dose: 1 mg Documented by: Furosemide (Furosemide 40 Mg/4 Ml Inj) 40 mg IV QDAY JOSE Sodium Chloride 153.8 meq/ (Dextrose) 1,038.45 mls @ 100 mls/hr IV DIRECT JOSE Last Admin: 10/15/20 12:18 Dose: 100 mls/hr Documented by: Levetiracetam 250 mg/ Dextrose 102.5 mls @ 400 mls/hr IV Q12HR [facility] Last Admin: 10/15/20 12:20 Dose: 400 mls/hr Documented by: Thiamine HCl 300 mg/ Sodium (Chloride) 53 mls @ 100 mls/hr IV QDAY [facility] Stop: 10/15/20 23:59 Last Admin: 10/14/20 10:01 Dose: 100 mls/hr Documented by: Ceftriaxone Sodium (Rocephin/Ns 1 Gm/50 Ml) 1 gm in 50 mls @ 100 mls/hr IV Q24H [facility]; Protocol Last Admin: 10/15/20 12:17 Dose: 100 mls/hr Documented by: Norepinephrine (Levophed Drip 4 Mg/Ns 250 Ml) 4 mg in 250 mls @ 7.5 mls/hr IV TITR [facility]; Protocol Last Admin: 10/15/20 11:15 Dose: 2 mcg/min, 7.5 mls/hr Documented by: Sodium Chloride (Nacl 0.9% 1000 Ml) 1,000 mls @ 999 mls/hr IV BOLUS ONE Stop: 10/15/20 13:30 Last Admin: 10/15/20 11:15 Dose: 999 mls/hr Documented by: Magnesium Hydroxide (Magnesium Hydroxide (Mom) Oral Liqd Udc) 30 ml PO Q4H PRN PRN Reason: Constipation Metoclopramide HCl (Metoclopramide 10 Mg/2 Ml Inj) 10 mg IV Q6H PRN PRN Reason: Nausea And Vomiting Multivitamins (Multivitamins ,Therapeutic Tab) 1 each PO QDAY [facility] Last Admin: 10/14/20 12:26 Dose: 1 each Documented by: Ondansetron HCl (Ondansetron 4 Mg/2 Ml Inj) 4 mg IV Q8H PRN PRN Reason: Nausea And Vomiting Last Admin: 10/07/20 23:19 Dose: 4 mg Documented by: Oxycodone/Acetaminophen (Oxycodone /Acetaminophen 5-325mg Tab) 1 tab PO Q6H PRN PRN Reason: Pain, Moderate (4-6) Pantoprazole Sodium (Pantoprazole 40 Mg Inj) 40 mg IV QDAY [facility] Last Admin: 10/14/20 10:01 Dose: 40 mg Documented by: Promethazine HCl (Promethazine 25 Mg Rect Supp) 25 mg TX Q6H PRN PRN Reason: N/V IF NPO AND NO IV ACCESS Senna (Sennosides 8.6 Mg Tab) 8.6 mg PO Q12HR PRN PRN Reason: Constipation Simple Syrup (Simple Syrup 15 Ml) 15 ml FEEDTUBE PRN PRN PRN Reason: Hypoglycemia Simple Syrup (Simple Syrup 15 Ml) 30 ml FEEDTUBE PRN PRN PRN Reason: Hypoglycemia Last Admin: 10/15/20 12:17 Dose: 30 ml Documented by: Sodium Bicarbonate (Sodium Bicarbonate 325 Mg Tab) 325 mg FEEDTUBE PRN PRN PRN Reason: For Clogged Feeding Tube Physical Examination Vital signs: Vital Signs Temp Pulse Resp BP Pulse Ox 90.1 F L 98 H 16 128/75 99 10/03/20 00:39 10/03/20 00:39 10/03/20 00:39 10/03/20 00:39 10/03/20 00:39 Results - Laboratory Findings CBC and BMP: 10/15/20 05:50 10/15/20 05:50 ABG ABG pH 7.200 (7.320-7.450) L 10/15/20 10:50 POC ABG pCO2 45.3 mmHg (32.0-48.0) 10/15/20 10:50 POC ABG pO2 123.1 mmHg (83-108) H 10/15/20 10:50 POC ABG HCO3 17.3 10/15/20 10:50 PT/INR, D-dimer PT 20.8 Sec. (12.2-14.9) H 10/02/20 23:17 INR 1.74 (0.87-1.13) H 10/02/20 23:17 Abnormal lab findings: Abnormal Labs 10/02/20 10/02/20 10/02/20 23:17 23:17 23:17 WBC RBC 3.31 L Hgb 6.7 L Hct 21.8 L MCV 66 L MCH 20 L MCHC 31 L RDW 31.7 H Plt Count Seg Neutrophils % Seg Neuts % (Manual) 79.0 H Lymphocytes % (Manual) 11.0 L Monocytes % (Manual) 10.0 H Basophils % (Manual) Nucleated RBC % Seg Neutrophils # Man Lymphocytes # (Manual) 0.9 L Monocytes # (Manual) Basophils # (Manual) PT 20.8 H INR 1.74 H APTT 57.6 H ABG pH POC ABG pCO2 POC ABG pO2 ABG Hemoglobin ABG Oxyhemoglobin ABG Sodium ABG Potassium ABG Chloride ABG Glucose Sodium Potassium Chloride Carbon Dioxide BUN Creatinine Glucose 42 L POC Glucose Lactic Acid Iron Ammonia CK-MB (CK-2) 7.5 H CK-MB (CK-2) Rel Index 8.5 H Total Protein Albumin 2.9 L Arterial Blood Glucose Urine Creatinine Urine Total Protein Salicylates Acetaminophen Crossmatch 10/02/20 10/02/20 10/02/20 23:17 23:17 23:17 WBC RBC Hgb Hct MCV MCH MCHC RDW Plt Count Seg Neutrophils % Seg Neuts % (Manual) Lymphocytes % (Manual) Monocytes % (Manual) Basophils % (Manual) Nucleated RBC % Seg Neutrophils # Man Lymphocytes # (Manual) Monocytes # (Manual) Basophils # (Manual) PT INR APTT ABG pH POC ABG pCO2 POC ABG pO2 ABG Hemoglobin ABG Oxyhemoglobin ABG Sodium ABG Potassium ABG Chloride ABG Glucose Sodium Potassium Chloride Carbon Dioxide BUN Creatinine Glucose POC Glucose Lactic Acid 2.20 H* Iron Ammonia 22.0 L CK-MB (CK-2) CK-MB (CK-2) Rel Index Total Protein Albumin Arterial Blood Glucose Urine Creatinine Urine Total Protein Salicylates < 0.3 L Acetaminophen Crossmatch 10/02/20 10/03/20 10/03/20 23:17 05:57 05:57 WBC RBC 2.66 L Hgb 5.3 L* Hct 17.8 L* MCV 67 L MCH 20 L MCHC 30 L RDW 32.1 H Plt Count Seg Neutrophils % Seg Neuts % (Manual) Lymphocytes % (Manual) 2.0 L Monocytes % (Manual) Basophils % (Manual) Nucleated RBC % 1.0 H Seg Neutrophils # Man 8.6 H Lymphocytes # (Manual) 0.2 L Monocytes # (Manual) Basophils # (Manual) PT INR APTT ABG pH POC ABG pCO2 POC ABG pO2 ABG Hemoglobin ABG Oxyhemoglobin ABG Sodium ABG Potassium ABG Chloride ABG Glucose Sodium Potassium Chloride Carbon Dioxide BUN Creatinine Glucose POC Glucose Lactic Acid Iron Ammonia CK-MB (CK-2) CK-MB (CK-2) Rel Index Total Protein Albumin Arterial Blood Glucose Urine Creatinine Urine Total Protein Salicylates Acetaminophen 5.0 L Crossmatch See Detail 10/03/20 10/03/20 10/03/20 05:57 05:57 06:00 WBC RBC Hgb Hct MCV MCH MCHC RDW Plt Count Seg Neutrophils % Seg Neuts % (Manual) Lymphocytes % (Manual) Monocytes % (Manual) Basophils % (Manual) Nucleated RBC % Seg Neutrophils # Man Lymphocytes # (Manual) Monocytes # (Manual) Basophils # (Manual) PT INR APTT ABG pH POC ABG pCO2 POC ABG pO2 ABG Hemoglobin ABG Oxyhemoglobin ABG Sodium ABG Potassium ABG Chloride ABG Glucose Sodium Potassium Chloride Carbon Dioxide BUN Creatinine Glucose 52 L POC Glucose 31 L Lactic Acid Iron 42 L Ammonia CK-MB (CK-2) CK-MB (CK-2) Rel Index Total Protein 5.8 L Albumin 3.1 L Arterial Blood Glucose Urine Creatinine Urine Total Protein Salicylates Acetaminophen Crossmatch 10/03/20 10/03/20 10/03/20 07:34 09:43 10:57 WBC RBC Hgb Hct MCV MCH MCHC RDW Plt Count Seg Neutrophils % Seg Neuts % (Manual) Lymphocytes % (Manual) Monocytes % (Manual) Basophils % (Manual) Nucleated RBC % Seg Neutrophils # Man Lymphocytes # (Manual) Monocytes # (Manual) Basophils # (Manual) PT INR APTT ABG pH POC ABG pCO2 POC ABG pO2 ABG Hemoglobin ABG Oxyhemoglobin ABG Sodium ABG Potassium ABG Chloride ABG Glucose Sodium Potassium Chloride Carbon Dioxide BUN Creatinine Glucose POC Glucose 59 L 41 L 31 L Lactic Acid Iron Ammonia CK-MB (CK-2) CK-MB (CK-2) Rel Index Total Protein Albumin Arterial Blood Glucose Urine Creatinine Urine Total Protein Salicylates Acetaminophen Crossmatch 10/03/20 10/03/20 10/03/20 11:21 12:00 12:14 WBC RBC Hgb Hct MCV MCH MCHC RDW Plt Count Seg Neutrophils % Seg Neuts % (Manual) Lymphocytes % (Manual) Monocytes % (Manual) Basophils % (Manual) Nucleated RBC % Seg Neutrophils # Man Lymphocytes # (Manual) Monocytes # (Manual) Basophils # (Manual) PT INR APTT ABG pH POC ABG pCO2 POC ABG pO2 ABG Hemoglobin ABG Oxyhemoglobin ABG Sodium ABG Potassium ABG Chloride ABG Glucose Sodium Potassium Chloride Carbon Dioxide BUN Creatinine Glucose POC Glucose 62 L 26 L 140 H Lactic Acid Iron Ammonia CK-MB (CK-2) CK-MB (CK-2) Rel Index Total Protein Albumin Arterial Blood Glucose Urine Creatinine Urine Total Protein Salicylates Acetaminophen Crossmatch 10/03/20 10/03/20 10/03/20 13:33 14:19 14:59 WBC RBC Hgb Hct MCV MCH MCHC RDW Plt Count Seg Neutrophils % Seg Neuts % (Manual) Lymphocytes % (Manual) Monocytes % (Manual) Basophils % (Manual) Nucleated RBC % Seg Neutrophils # Man Lymphocytes # (Manual) Monocytes # (Manual) Basophils # (Manual) PT INR APTT ABG pH POC ABG pCO2 POC ABG pO2 ABG Hemoglobin ABG Oxyhemoglobin ABG Sodium ABG Potassium ABG Chloride ABG Glucose Sodium Potassium Chloride Carbon Dioxide BUN Creatinine Glucose POC Glucose 24 L 59 L 40 L Lactic Acid Iron Ammonia CK-MB (CK-2) CK-MB (CK-2) Rel Index Total Protein Albumin Arterial Blood Glucose Urine Creatinine Urine Total Protein Salicylates Acetaminophen Crossmatch 10/03/20 10/03/20 10/03/20 15:26 15:57 16:35 WBC RBC Hgb Hct MCV MCH MCHC RDW Plt Count Seg Neutrophils % Seg Neuts % (Manual) Lymphocytes % (Manual) Monocytes % (Manual) Basophils % (Manual) Nucleated RBC % Seg Neutrophils # Man Lymphocytes # (Manual) Monocytes # (Manual) Basophils # (Manual) PT INR APTT ABG pH POC ABG pCO2 POC ABG pO2 ABG Hemoglobin ABG Oxyhemoglobin ABG Sodium ABG Potassium ABG Chloride ABG Glucose Sodium Potassium Chloride Carbon Dioxide BUN Creatinine Glucose POC Glucose 54 L 45 L 42 L Lactic Acid Iron Ammonia CK-MB (CK-2) CK-MB (CK-2) Rel Index Total Protein Albumin Arterial Blood Glucose Urine Creatinine Urine Total Protein Salicylates Acetaminophen Crossmatch 10/03/20 10/03/20 10/03/20 17:16 18:37 19:56 WBC RBC Hgb Hct MCV MCH MCHC RDW Plt Count Seg Neutrophils % Seg Neuts % (Manual) Lymphocytes % (Manual) Monocytes % (Manual) Basophils % (Manual) Nucleated RBC % Seg Neutrophils # Man Lymphocytes # (Manual) Monocytes # (Manual) Basophils # (Manual) PT INR APTT ABG pH POC ABG pCO2 POC ABG pO2 ABG Hemoglobin ABG Oxyhemoglobin ABG Sodium ABG Potassium ABG Chloride ABG Glucose Sodium Potassium Chloride Carbon Dioxide BUN Creatinine Glucose POC Glucose 41 L 46 L 57 L Lactic Acid Iron Ammonia CK-MB (CK-2) CK-MB (CK-2) Rel Index Total Protein Albumin Arterial Blood Glucose Urine Creatinine Urine Total Protein Salicylates Acetaminophen Crossmatch 10/03/20 10/04/20 10/04/20 21:32 01:04 01:11 WBC RBC Hgb 9.6 L D Hct 28.3 L D MCV MCH MCHC RDW Plt Count Seg Neutrophils % Seg Neuts % (Manual) Lymphocytes % (Manual) Monocytes % (Manual) Basophils % (Manual) Nucleated RBC % Seg Neutrophils # Man Lymphocytes # (Manual) Monocytes # (Manual) Basophils # (Manual) PT INR APTT ABG pH POC ABG pCO2 POC ABG pO2 ABG Hemoglobin ABG Oxyhemoglobin ABG Sodium ABG Potassium ABG Chloride ABG Glucose Sodium Potassium Chloride Carbon Dioxide BUN Creatinine Glucose POC Glucose 65 L 51 L Lactic Acid Iron Ammonia CK-MB (CK-2) CK-MB (CK-2) Rel Index Total Protein Albumin Arterial Blood Glucose Urine Creatinine Urine Total Protein Salicylates Acetaminophen Crossmatch 10/04/20 10/04/20 10/04/20 05:59 05:59 15:10 WBC 13.4 H RBC Hgb 9.9 L 10.1 L Hct 32.0 L 31.8 L MCV 76 L MCH 24 L MCHC 31 L RDW 31.3 H Plt Count Seg Neutrophils % Seg Neuts % (Manual) 86.0 H Lymphocytes % (Manual) 6.0 L Monocytes % (Manual) 8.0 H Basophils % (Manual) Nucleated RBC % 2.0 H Seg Neutrophils # Man 11.5 H Lymphocytes # (Manual) 0.8 L Monocytes # (Manual) 1.1 H Basophils # (Manual) PT INR APTT ABG pH POC ABG pCO2 POC ABG pO2 ABG Hemoglobin ABG Oxyhemoglobin ABG Sodium ABG Potassium ABG Chloride ABG Glucose Sodium 136 L Potassium 3.5 L Chloride Carbon Dioxide 19 L D BUN Creatinine Glucose POC Glucose Lactic Acid Iron Ammonia CK-MB (CK-2) CK-MB (CK-2) Rel Index Total Protein Albumin 2.6 L Arterial Blood Glucose Urine Creatinine Urine Total Protein Salicylates Acetaminophen Crossmatch 10/04/20 10/04/20 10/05/20 16:28 22:33 04:43 WBC RBC Hgb 10.5 L Hct 32.5 L MCV MCH MCHC RDW Plt Count Seg Neutrophils % Seg Neuts % (Manual) Lymphocytes % (Manual) Monocytes % (Manual) Basophils % (Manual) Nucleated RBC % Seg Neutrophils # Man Lymphocytes # (Manual) Monocytes # (Manual) Basophils # (Manual) PT INR APTT ABG pH POC ABG pCO2 POC ABG pO2 ABG Hemoglobin ABG Oxyhemoglobin ABG Sodium ABG Potassium ABG Chloride ABG Glucose Sodium Potassium Chloride Carbon Dioxide BUN Creatinine Glucose POC Glucose 66 L 113 H Lactic Acid Iron Ammonia CK-MB (CK-2) CK-MB (CK-2) Rel Index Total Protein Albumin Arterial Blood Glucose Urine Creatinine Urine Total Protein Salicylates Acetaminophen Crossmatch 10/05/20 10/05/20 10/05/20 05:00 09:42 11:57 WBC RBC Hgb 9.8 L Hct 30.5 L MCV 74 L MCH 24 L MCHC RDW 31.6 H Plt Count Seg Neutrophils % Seg Neuts % (Manual) Lymphocytes % (Manual) Monocytes % (Manual) Basophils % (Manual) Nucleated RBC % Seg Neutrophils # Man Lymphocytes # (Manual) Monocytes # (Manual) Basophils # (Manual) PT INR APTT ABG pH POC ABG pCO2 POC ABG pO2 ABG Hemoglobin ABG Oxyhemoglobin ABG Sodium ABG Potassium ABG Chloride ABG Glucose Sodium 132 L Potassium 3.5 L Chloride Carbon Dioxide 19 L BUN Creatinine 0.7 L Glucose POC Glucose 129 H Lactic Acid Iron Ammonia CK-MB (CK-2) CK-MB (CK-2) Rel Index Total Protein Albumin Arterial Blood Glucose Urine Creatinine Urine Total Protein Salicylates Acetaminophen Crossmatch 10/05/20 10/05/20 10/06/20 16:47 21:51 05:07 WBC RBC Hgb 9.4 L Hct 30.1 L MCV 76 L MCH 24 L MCHC 31 L RDW 31.1 H Plt Count Seg Neutrophils % Seg Neuts % (Manual) Lymphocytes % (Manual) Monocytes % (Manual) Basophils % (Manual) Nucleated RBC % Seg Neutrophils # Man Lymphocytes # (Manual) Monocytes # (Manual) Basophils # (Manual) PT INR APTT ABG pH POC ABG pCO2 POC ABG pO2 ABG Hemoglobin ABG Oxyhemoglobin ABG Sodium ABG Potassium ABG Chloride ABG Glucose Sodium Potassium Chloride Carbon Dioxide BUN Creatinine Glucose POC Glucose 132 H 115 H Lactic Acid Iron Ammonia CK-MB (CK-2) CK-MB (CK-2) Rel Index Total Protein Albumin Arterial Blood Glucose Urine Creatinine Urine Total Protein Salicylates Acetaminophen Crossmatch 10/06/20 10/06/20 10/06/20 05:07 15:37 21:01 WBC RBC Hgb Hct MCV MCH MCHC RDW Plt Count Seg Neutrophils % Seg Neuts % (Manual) Lymphocytes % (Manual) Monocytes % (Manual) Basophils % (Manual) Nucleated RBC % Seg Neutrophils # Man Lymphocytes # (Manual) Monocytes # (Manual) Basophils # (Manual) PT INR APTT ABG pH POC ABG pCO2 POC ABG pO2 ABG Hemoglobin ABG Oxyhemoglobin ABG Sodium ABG Potassium ABG Chloride ABG Glucose Sodium 133 L Potassium 3.5 L Chloride Carbon Dioxide 21 L BUN Creatinine 0.6 L Glucose 105 H POC Glucose 136 H 108 H Lactic Acid Iron Ammonia CK-MB (CK-2) CK-MB (CK-2) Rel Index Total Protein Albumin Arterial Blood Glucose Urine Creatinine Urine Total Protein Salicylates Acetaminophen Crossmatch 10/07/20 10/07/20 10/07/20 04:52 04:52 06:07 WBC RBC Hgb 9.6 L Hct 29.4 L MCV 73 L MCH 24 L MCHC RDW 32.2 H Plt Count Seg Neutrophils % Seg Neuts % (Manual) Lymphocytes % (Manual) Monocytes % (Manual) Basophils % (Manual) Nucleated RBC % Seg Neutrophils # Man Lymphocytes # (Manual) Monocytes # (Manual) Basophils # (Manual) PT INR APTT ABG pH POC ABG pCO2 POC ABG pO2 ABG Hemoglobin ABG Oxyhemoglobin ABG Sodium ABG Potassium ABG Chloride ABG Glucose Sodium 128 L Potassium Chloride Carbon Dioxide 20 L BUN Creatinine 0.7 L Glucose POC Glucose 110 H Lactic Acid Iron Ammonia CK-MB (CK-2) CK-MB (CK-2) Rel Index Total Protein Albumin Arterial Blood Glucose Urine Creatinine Urine Total Protein Salicylates Acetaminophen Crossmatch 10/07/20 10/07/20 10/07/20 17:09 18:53 20:35 WBC RBC Hgb Hct MCV MCH MCHC RDW Plt Count Seg Neutrophils % Seg Neuts % (Manual) Lymphocytes % (Manual) Monocytes % (Manual) Basophils % (Manual) Nucleated RBC % Seg Neutrophils # Man Lymphocytes # (Manual) Monocytes # (Manual) Basophils # (Manual) PT INR APTT ABG pH POC ABG pCO2 POC ABG pO2 ABG Hemoglobin ABG Oxyhemoglobin ABG Sodium ABG Potassium ABG Chloride ABG Glucose Sodium Potassium Chloride Carbon Dioxide BUN Creatinine Glucose POC Glucose 67 L 66 L 62 L Lactic Acid Iron Ammonia CK-MB (CK-2) CK-MB (CK-2) Rel Index Total Protein Albumin Arterial Blood Glucose Urine Creatinine Urine Total Protein Salicylates Acetaminophen Crossmatch 10/07/20 10/08/20 10/08/20 21:55 05:00 05:00 WBC RBC Hgb 9.6 L Hct 29.4 L MCV 73 L MCH 24 L MCHC RDW 32.4 H Plt Count Seg Neutrophils % 80.6 H Seg Neuts % (Manual) 88.0 H Lymphocytes % (Manual) 9.0 L Monocytes % (Manual) Basophils % (Manual) Nucleated RBC % 5.0 H Seg Neutrophils # Man Lymphocytes # (Manual) 0.5 L Monocytes # (Manual) Basophils # (Manual) PT INR APTT ABG pH POC ABG pCO2 POC ABG pO2 ABG Hemoglobin ABG Oxyhemoglobin ABG Sodium ABG Potassium ABG Chloride ABG Glucose Sodium 126 L Potassium Chloride 96.3 L Carbon Dioxide BUN Creatinine 0.7 L Glucose POC Glucose 132 H Lactic Acid Iron Ammonia CK-MB (CK-2) CK-MB (CK-2) Rel Index Total Protein Albumin Arterial Blood Glucose Urine Creatinine Urine Total Protein Salicylates Acetaminophen Crossmatch 10/08/20 10/09/20 10/09/20 22:26 01:36 02:22 WBC RBC Hgb Hct MCV MCH MCHC RDW Plt Count Seg Neutrophils % Seg Neuts % (Manual) Lymphocytes % (Manual) Monocytes % (Manual) Basophils % (Manual) Nucleated RBC % Seg Neutrophils # Man Lymphocytes # (Manual) Monocytes # (Manual) Basophils # (Manual) PT INR APTT ABG pH POC ABG pCO2 POC ABG pO2 ABG Hemoglobin ABG Oxyhemoglobin ABG Sodium ABG Potassium ABG Chloride ABG Glucose Sodium Potassium Chloride Carbon Dioxide BUN Creatinine Glucose POC Glucose 63 L 62 L 151 H Lactic Acid Iron Ammonia CK-MB (CK-2) CK-MB (CK-2) Rel Index Total Protein Albumin Arterial Blood Glucose Urine Creatinine Urine Total Protein Salicylates Acetaminophen Crossmatch 10/09/20 10/09/20 10/09/20 05:07 05:42 06:32 WBC RBC Hgb 10.3 L Hct 33.8 L MCV 77 L MCH 24 L MCHC 31 L RDW 33.6 H Plt Count 137 L Seg Neutrophils % Seg Neuts % (Manual) 89.0 H Lymphocytes % (Manual) 5.0 L Monocytes % (Manual) Basophils % (Manual) Nucleated RBC % 4.0 H Seg Neutrophils # Man 9.4 H Lymphocytes # (Manual) 0.5 L Monocytes # (Manual) Basophils # (Manual) PT INR APTT ABG pH POC ABG pCO2 POC ABG pO2 ABG Hemoglobin ABG Oxyhemoglobin ABG Sodium ABG Potassium ABG Chloride ABG Glucose Sodium 126 L Potassium Chloride 97.8 L Carbon Dioxide 20 L BUN Creatinine Glucose 58 L POC Glucose 48 L Lactic Acid Iron Ammonia CK-MB (CK-2) CK-MB (CK-2) Rel Index Total Protein Albumin Arterial Blood Glucose Urine Creatinine Urine Total Protein Salicylates Acetaminophen Crossmatch 10/09/20 10/10/20 10/10/20 06:35 00:21 05:53 WBC RBC Hgb Hct MCV MCH MCHC RDW Plt Count Seg Neutrophils % Seg Neuts % (Manual) Lymphocytes % (Manual) Monocytes % (Manual) Basophils % (Manual) Nucleated RBC % Seg Neutrophils # Man Lymphocytes # (Manual) Monocytes # (Manual) Basophils # (Manual) PT INR APTT ABG pH POC ABG pCO2 POC ABG pO2 ABG Hemoglobin ABG Oxyhemoglobin ABG Sodium ABG Potassium ABG Chloride ABG Glucose Sodium Potassium Chloride Carbon Dioxide BUN Creatinine Glucose POC Glucose 106 H 153 H 34 L Lactic Acid Iron Ammonia CK-MB (CK-2) CK-MB (CK-2) Rel Index Total Protein Albumin Arterial Blood Glucose Urine Creatinine Urine Total Protein Salicylates Acetaminophen Crossmatch 10/10/20 10/10/20 10/10/20 10:58 10:58 12:39 WBC RBC Hgb 10.3 L Hct 33.9 L MCV 78 L MCH 24 L MCHC 30 L RDW 33.2 H Plt Count 135 L Seg Neutrophils % Seg Neuts % (Manual) 74.0 H Lymphocytes % (Manual) 12.0 L Monocytes % (Manual) 9.0 H Basophils % (Manual) 2.0 H Nucleated RBC % Seg Neutrophils # Man Lymphocytes # (Manual) 1.0 L Monocytes # (Manual) Basophils # (Manual) 0.2 H PT INR APTT ABG pH POC ABG pCO2 POC ABG pO2 ABG Hemoglobin ABG Oxyhemoglobin ABG Sodium ABG Potassium ABG Chloride ABG Glucose Sodium 127 L Potassium Chloride Carbon Dioxide 20 L BUN 23 H Creatinine Glucose POC Glucose 108 H Lactic Acid Iron Ammonia CK-MB (CK-2) CK-MB (CK-2) Rel Index Total Protein Albumin Arterial Blood Glucose Urine Creatinine Urine Total Protein Salicylates Acetaminophen Crossmatch 10/10/20 10/11/20 10/11/20 16:51 04:56 05:51 WBC RBC Hgb 9.5 L Hct 31.3 L MCV 77 L MCH 23 L MCHC 30 L RDW 33.7 H Plt Count Seg Neutrophils % Seg Neuts % (Manual) 95.0 H Lymphocytes % (Manual) 2.0 L Monocytes % (Manual) Basophils % (Manual) Nucleated RBC % 3.0 H Seg Neutrophils # Man 8.0 H Lymphocytes # (Manual) 0.2 L Monocytes # (Manual) Basophils # (Manual) PT INR APTT ABG pH POC ABG pCO2 POC ABG pO2 ABG Hemoglobin ABG Oxyhemoglobin ABG Sodium ABG Potassium ABG Chloride ABG Glucose Sodium Potassium Chloride Carbon Dioxide BUN Creatinine Glucose POC Glucose 142 H 124 H Lactic Acid Iron Ammonia CK-MB (CK-2) CK-MB (CK-2) Rel Index Total Protein Albumin Arterial Blood Glucose Urine Creatinine Urine Total Protein Salicylates Acetaminophen Crossmatch 10/11/20 10/11/20 10/12/20 05:51 11:56 04:53 WBC RBC Hgb 9.5 L Hct 30.0 L MCV 75 L MCH 24 L MCHC RDW 32.8 H Plt Count 136 L Seg Neutrophils % Seg Neuts % (Manual) 89.0 H Lymphocytes % (Manual) 5.0 L Monocytes % (Manual) Basophils % (Manual) Nucleated RBC % Seg Neutrophils # Man Lymphocytes # (Manual) 0.4 L Monocytes # (Manual) Basophils # (Manual) PT INR APTT ABG pH POC ABG pCO2 POC ABG pO2 ABG Hemoglobin ABG Oxyhemoglobin ABG Sodium ABG Potassium ABG Chloride ABG Glucose Sodium 130 L Potassium Chloride Carbon Dioxide 18 L BUN 23 H Creatinine Glucose POC Glucose 126 H Lactic Acid Iron Ammonia CK-MB (CK-2) CK-MB (CK-2) Rel Index Total Protein Albumin Arterial Blood Glucose Urine Creatinine Urine Total Protein Salicylates Acetaminophen Crossmatch 10/12/20 10/12/20 10/12/20 04:53 11:42 23:49 WBC RBC Hgb Hct MCV MCH MCHC RDW Plt Count Seg Neutrophils % Seg Neuts % (Manual) Lymphocytes % (Manual) Monocytes % (Manual) Basophils % (Manual) Nucleated RBC % Seg Neutrophils # Man Lymphocytes # (Manual) Monocytes # (Manual) Basophils # (Manual) PT INR APTT ABG pH POC ABG pCO2 POC ABG pO2 ABG Hemoglobin ABG Oxyhemoglobin ABG Sodium ABG Potassium ABG Chloride ABG Glucose Sodium 130 L Potassium Chloride Carbon Dioxide 18 L BUN 25 H Creatinine Glucose 74 L POC Glucose 59 L 51 L Lactic Acid Iron Ammonia CK-MB (CK-2) CK-MB (CK-2) Rel Index Total Protein Albumin Arterial Blood Glucose Urine Creatinine Urine Total Protein Salicylates Acetaminophen Crossmatch 10/13/20 10/13/20 10/13/20 03:17 05:24 05:24 WBC RBC Hgb 9.4 L Hct 29.4 L MCV 75 L MCH 24 L MCHC RDW 32.9 H Plt Count 95 L Seg Neutrophils % Seg Neuts % (Manual) 90.0 H Lymphocytes % (Manual) Monocytes % (Manual) Basophils % (Manual) Nucleated RBC % 2.0 H Seg Neutrophils # Man 9.5 H Lymphocytes # (Manual) 0.0 L Monocytes # (Manual) Basophils # (Manual) PT INR APTT ABG pH POC ABG pCO2 POC ABG pO2 ABG Hemoglobin ABG Oxyhemoglobin ABG Sodium ABG Potassium ABG Chloride ABG Glucose Sodium 132 L Potassium Chloride Carbon Dioxide 17 L BUN 26 H Creatinine 1.6 H Glucose POC Glucose 67 L Lactic Acid Iron Ammonia CK-MB (CK-2) CK-MB (CK-2) Rel Index Total Protein Albumin Arterial Blood Glucose Urine Creatinine Urine Total Protein Salicylates Acetaminophen Crossmatch 10/13/20 10/14/20 10/14/20 11:36 05:04 05:04 WBC 17.4 H RBC Hgb 9.3 L Hct 29.3 L MCV 76 L MCH 24 L MCHC RDW 33.8 H Plt Count 83 L Seg Neutrophils % Seg Neuts % (Manual) 89.0 H Lymphocytes % (Manual) 4.0 L Monocytes % (Manual) Basophils % (Manual) Nucleated RBC % 1.0 H Seg Neutrophils # Man 15.5 H Lymphocytes # (Manual) 0.7 L Monocytes # (Manual) Basophils # (Manual) PT INR APTT ABG pH POC ABG pCO2 POC ABG pO2 ABG Hemoglobin ABG Oxyhemoglobin ABG Sodium ABG Potassium ABG Chloride ABG Glucose Sodium 132 L Potassium 5.3 H Chloride 108.7 H Carbon Dioxide 15 L BUN 25 H Creatinine 1.5 H Glucose POC Glucose 58 L Lactic Acid Iron Ammonia CK-MB (CK-2) CK-MB (CK-2) Rel Index Total Protein Albumin Arterial Blood Glucose Urine Creatinine Urine Total Protein Salicylates Acetaminophen Crossmatch 10/14/20 10/14/20 10/14/20 05:41 08:19 15:34 WBC RBC Hgb Hct MCV MCH MCHC RDW Plt Count Seg Neutrophils % Seg Neuts % (Manual) Lymphocytes % (Manual) Monocytes % (Manual) Basophils % (Manual) Nucleated RBC % Seg Neutrophils # Man Lymphocytes # (Manual) Monocytes # (Manual) Basophils # (Manual) PT INR APTT ABG pH POC ABG pCO2 POC ABG pO2 ABG Hemoglobin ABG Oxyhemoglobin ABG Sodium ABG Potassium ABG Chloride ABG Glucose Sodium 134 L Potassium 5.2 H Chloride 111.1 H Carbon Dioxide 16 L BUN 25 H Creatinine 1.5 H Glucose POC Glucose 58 L 120 H Lactic Acid Iron Ammonia CK-MB (CK-2) CK-MB (CK-2) Rel Index Total Protein Albumin Arterial Blood Glucose Urine Creatinine Urine Total Protein Salicylates Acetaminophen Crossmatch 10/14/20 10/15/20 10/15/20 Unknown 05:50 05:50 WBC 14.1 H RBC Hgb 9.4 L Hct 29.9 L MCV 76 L MCH 24 L MCHC 31 L RDW 34.2 H Plt Count Seg Neutrophils % Seg Neuts % (Manual) Lymphocytes % (Manual) 9.0 L Monocytes % (Manual) Basophils % (Manual) Nucleated RBC % 6.0 H Seg Neutrophils # Man 9.7 H Lymphocytes # (Manual) Monocytes # (Manual) Basophils # (Manual) PT INR APTT ABG pH POC ABG pCO2 POC ABG pO2 ABG Hemoglobin ABG Oxyhemoglobin ABG Sodium ABG Potassium ABG Chloride ABG Glucose Sodium 134 L Potassium Chloride 109.9 H Carbon Dioxide 18 L BUN 26 H Creatinine 1.5 H Glucose 125 H POC Glucose Lactic Acid Iron Ammonia CK-MB (CK-2) CK-MB (CK-2) Rel Index Total Protein Albumin Arterial Blood Glucose Urine Creatinine 144.2 H Urine Total Protein 97 H Salicylates Acetaminophen Crossmatch 10/15/20 10/15/20 10/15/20 05:55 07:36 07:59 WBC RBC Hgb Hct MCV MCH MCHC RDW Plt Count Seg Neutrophils % Seg Neuts % (Manual) Lymphocytes % (Manual) Monocytes % (Manual) Basophils % (Manual) Nucleated RBC % Seg Neutrophils # Man Lymphocytes # (Manual) Monocytes # (Manual) Basophils # (Manual) PT INR APTT ABG pH 7.052 L POC ABG pCO2 65.0 H POC ABG pO2 214.1 H ABG Hemoglobin 10.6 L ABG Oxyhemoglobin 98.3 H ABG Sodium 130.6 L ABG Potassium ABG Chloride 110.0 H ABG Glucose 124 H Sodium Potassium Chloride Carbon Dioxide BUN Creatinine Glucose POC Glucose 113 H 114 H Lactic Acid Iron Ammonia CK-MB (CK-2) CK-MB (CK-2) Rel Index Total Protein Albumin Arterial Blood Glucose 124 H Urine Creatinine Urine Total Protein Salicylates Acetaminophen Crossmatch 10/15/20 10/15/20 10:50 11:27 WBC RBC Hgb Hct MCV MCH MCHC RDW Plt Count Seg Neutrophils % Seg Neuts % (Manual) Lymphocytes % (Manual) Monocytes % (Manual) Basophils % (Manual) Nucleated RBC % Seg Neutrophils # Man Lymphocytes # (Manual) Monocytes # (Manual) Basophils # (Manual) PT INR APTT ABG pH 7.200 L POC ABG pCO2 POC ABG pO2 123.1 H ABG Hemoglobin ABG Oxyhemoglobin ABG Sodium 131.3 L ABG Potassium 4.6 H ABG Chloride 112.0 H ABG Glucose 42 L Sodium Potassium Chloride Carbon Dioxide BUN Creatinine Glucose POC Glucose 50 L Lactic Acid Iron Ammonia CK-MB (CK-2) CK-MB (CK-2) Rel Index Total Protein Albumin Arterial Blood Glucose 42 L Urine Creatinine Urine Total Protein Salicylates Acetaminophen Crossmatch
--- NOTE | 2020-10-15 12:59 | Gastroenterology Progress Note ---
Assessment and Plan 74 yo male admitted for encephalopathy. GI consulted for anemia. Update: developed respiratory distress this morning (10/15/2020) and intubated. Now in ICU. 1. Iron deficient anemia - etiology unclear. - no signs of overt GI bleeding - H/H remains stable at 9 range. - monitor H/H. - hold off EGD/colonoscopy given acute clinical worsening with respiratory failure. - spoke with patient's daughter and updated on the change in plans. phone [phone], Mignon Singh. 2. Oropharyngeal dysphagia - due to encephalopathy, questions of CVA - hold off EGD/PEG given acute clinical worsening with respiratory failure. 3. Respiratory failure - intubated this morning, 10/15/2020. - CXR with worsening opacities. - given lasix IV. - management per primary and ICU Subjective Date of service: 10/15/20 Principal diagnosis: hyponatremia, encephalopathy Interval history: Patient developed respiratory distress with desaturation and agonal breathing this morning. He was intubated and transferred to the ICU. Placed on levophed. Objective - Constitutional Vitals: Temp Pulse Resp BP Pulse Ox 98.6 F 25 L 19 99/68 100 10/15/20 04:27 10/15/20 11:53 10/15/20 05:00 10/15/20 11:53 10/15/20 11:53 General appearance: other (intubated) - Neck Neck: other (normal external appearance) - Respiratory Respiratory effort: other (intubated) Respiratory: bilateral: rhonchi - Cardiovascular Rhythm: regular Heart Sounds: Present: S1 & S2 - Extremities Extremity abnormal: edema - Gastrointestinal General gastrointestinal: Present: soft, non-tender, non-distended, normal bowel sounds - Neurologic Neurological: other (nonresponsive) - Labs CBC & Chem 7: 10/15/20 05:50 10/15/20 05:50 Labs: Laboratory Results - last 24 hr 10/14/20 10/14/20 10/14/20 08:00 15:34 17:00 WBC RBC Hgb Hct MCV MCH MCHC RDW Add Manual Diff Total Counted Seg Neuts % (Manual) Band Neutrophils % Lymphocytes % (Manual) Monocytes % (Manual) Myelocytes % Nucleated RBC % Seg Neutrophils # Man Band Neutrophils # Lymphocytes # (Manual) Abs React Lymphs (Man) Monocytes # (Manual) Eosinophils # (Manual) Basophils # (Manual) Metamyelocytes # Myelocytes # Promyelocytes # Blast Cells # WBC Morphology Hypersegmented Neuts Hyposegmented Neuts Hypogranular Neuts Smudge Cells Toxic Granulation Toxic Vacuolation Dohle Bodies Pelger-Huet Anomaly Andrés Rods Platelet Estimate Clumped Platelets Plt Clumps, EDTA Large Platelets Giant Platelets Platelet Satelliting Plt Morphology Comment RBC Morphology Dimorphic RBCs Polychromasia Hypochromasia Poikilocytosis Anisocytosis Microcytosis Macrocytosis Spherocytes Pappenheimer Bodies Sickle Cells Target Cells Tear Drop Cells Ovalocytes Helmet Cells [place] Bodies [place] Rings Norbert Cells Bite Cells Crenated Cell Elliptocytes Acanthocytes (Spur) Rouleaux Hemoglobin C Crystals Schistocytes Malaria parasites Dereck Bodies Hem Pathologist Commnt ABG pH POC ABG pCO2 POC ABG pO2 POC ABG HCO3 ABG O2 Saturation POC ABG Base Excess ABG Hemoglobin ABG Oxyhemoglobin ABG Methemoglobin ABG Sodium ABG Potassium ABG Chloride ABG Glucose Carboxyhemoglobin FiO2 % Sodium 134 L Potassium 5.2 H Chloride 111.1 H Carbon Dioxide 16 L Anion Gap 12 BUN 25 H Creatinine 1.5 H Estimated GFR 55 BUN/Creatinine Ratio 17 Glucose 79 POC Glucose 102 Calcium 8.5 Arterial Blood Glucose Arterial Blood Ionized Calcium Coronavirus (PCR) Negative 10/15/20 10/15/20 10/15/20 05:50 05:50 05:55 WBC 14.1 H RBC 3.93 Hgb 9.4 L Hct 29.9 L MCV 76 L MCH 24 L MCHC 31 L RDW 34.2 H Add Manual Diff Complete Total Counted 100 Seg Neuts % (Manual) 69.0 Band Neutrophils % 16.0 Lymphocytes % (Manual) 9.0 L Monocytes % (Manual) 2.0 Myelocytes % 4.0 Nucleated RBC % 6.0 H Seg Neutrophils # Man 9.7 H Band Neutrophils # 2.3 Lymphocytes # (Manual) 1.3 Abs React Lymphs (Man) 0.0 Monocytes # (Manual) 0.3 Eosinophils # (Manual) 0.0 Basophils # (Manual) 0.0 Metamyelocytes # 0.0 Myelocytes # 0.6 Promyelocytes # 0.0 Blast Cells # 0.0 WBC Morphology Not Reportable Hypersegmented Neuts Not Reportable Hyposegmented Neuts Not Reportable Hypogranular Neuts Not Reportable Smudge Cells Not Reportable Toxic Granulation Not Reportable Toxic Vacuolation Not Reportable Dohle Bodies Not Reportable Pelger-Huet Anomaly Not Reportable Andrés Rods Not Reportable Platelet Estimate Consistent w auto Clumped Platelets Not Reportable Plt Clumps, EDTA Not Reportable Large Platelets Not Reportable Giant Platelets Not Reportable Platelet Satelliting Not Reportable Plt Morphology Comment Not Reportable RBC Morphology Not Reportable Dimorphic RBCs Not Reportable Polychromasia Not Reportable Hypochromasia 1+ Poikilocytosis 2+ Anisocytosis 3+ Microcytosis Not Reportable Macrocytosis Not Reportable Spherocytes Not Reportable Pappenheimer Bodies Not Reportable Sickle Cells Not Reportable Target Cells Few Tear Drop Cells Few Ovalocytes 1+ Helmet Cells Not Reportable [place] Bodies Not Reportable [place] Rings Not Reportable Norbert Cells 2+ Bite Cells Not Reportable Crenated Cell Not Reportable Elliptocytes Not Reportable Acanthocytes (Spur) Not Reportable Rouleaux Not Reportable Hemoglobin C Crystals Not Reportable Schistocytes Rare Malaria parasites Not Reportable Dereck Bodies Not Reportable Hem Pathologist Commnt No ABG pH POC ABG pCO2 POC ABG pO2 POC ABG HCO3 ABG O2 Saturation POC ABG Base Excess ABG Hemoglobin ABG Oxyhemoglobin ABG Methemoglobin ABG Sodium ABG Potassium ABG Chloride ABG Glucose Carboxyhemoglobin FiO2 % Sodium 134 L Potassium 4.6 Chloride 109.9 H Carbon Dioxide 18 L Anion Gap 11 BUN 26 H Creatinine 1.5 H Estimated GFR 55 BUN/Creatinine Ratio 17 Glucose 125 H POC Glucose 113 H Calcium 8.6 Arterial Blood Glucose Arterial Blood Ionized Calcium Coronavirus (PCR) 10/15/20 10/15/20 10/15/20 07:36 07:59 10:50 WBC RBC Hgb Hct MCV MCH MCHC RDW Add Manual Diff Total Counted Seg Neuts % (Manual) Band Neutrophils % Lymphocytes % (Manual) Monocytes % (Manual) Myelocytes % Nucleated RBC % Seg Neutrophils # Man Band Neutrophils # Lymphocytes # (Manual) Abs React Lymphs (Man) Monocytes # (Manual) Eosinophils # (Manual) Basophils # (Manual) Metamyelocytes # Myelocytes # Promyelocytes # Blast Cells # WBC Morphology Hypersegmented Neuts Hyposegmented Neuts Hypogranular Neuts Smudge Cells Toxic Granulation Toxic Vacuolation Dohle Bodies Pelger-Huet Anomaly Andrés Rods Platelet Estimate Clumped Platelets Plt Clumps, EDTA Large Platelets Giant Platelets Platelet Satelliting Plt Morphology Comment RBC Morphology Dimorphic RBCs Polychromasia Hypochromasia Poikilocytosis Anisocytosis Microcytosis Macrocytosis Spherocytes Pappenheimer Bodies Sickle Cells Target Cells Tear Drop Cells Ovalocytes Helmet Cells [place] Bodies [place] Rings Norbert Cells Bite Cells Crenated Cell Elliptocytes Acanthocytes (Spur) Rouleaux Hemoglobin C Crystals Schistocytes Malaria parasites Dereck Bodies Hem Pathologist Commnt ABG pH 7.052 L 7.200 L POC ABG pCO2 65.0 H 45.3 POC ABG pO2 214.1 H 123.1 H POC ABG HCO3 17.7 17.3 ABG O2 Saturation 99.4 POC ABG Base Excess -12.9 -10.5 ABG Hemoglobin 10.6 L ABG Oxyhemoglobin 98.3 H ABG Methemoglobin 0.3 ABG Sodium 130.6 L 131.3 L ABG Potassium 4.4 4.6 H ABG Chloride 110.0 H 112.0 H ABG Glucose 124 H 42 L Carboxyhemoglobin 0.8 FiO2 % 100.0 70.0 Sodium Potassium Chloride Carbon Dioxide Anion Gap BUN Creatinine Estimated GFR BUN/Creatinine Ratio Glucose POC Glucose 114 H Calcium Arterial Blood Glucose 124 H 42 L Arterial Blood Ionized Calcium 5.3 5.2 Coronavirus (PCR) 10/15/20 11:27 WBC RBC Hgb Hct MCV MCH MCHC RDW Add Manual Diff Total Counted Seg Neuts % (Manual) Band Neutrophils % Lymphocytes % (Manual) Monocytes % (Manual) Myelocytes % Nucleated RBC % Seg Neutrophils # Man Band Neutrophils # Lymphocytes # (Manual) Abs React Lymphs (Man) Monocytes # (Manual) Eosinophils # (Manual) Basophils # (Manual) Metamyelocytes # Myelocytes # Promyelocytes # Blast Cells # WBC Morphology Hypersegmented Neuts Hyposegmented Neuts Hypogranular Neuts Smudge Cells Toxic Granulation Toxic Vacuolation Dohle Bodies Pelger-Huet Anomaly Andrés Rods Platelet Estimate Clumped Platelets Plt Clumps, EDTA Large Platelets Giant Platelets Platelet Satelliting Plt Morphology Comment RBC Morphology Dimorphic RBCs Polychromasia Hypochromasia Poikilocytosis Anisocytosis Microcytosis Macrocytosis Spherocytes Pappenheimer Bodies Sickle Cells Target Cells Tear Drop Cells Ovalocytes Helmet Cells [place] Bodies [place] Rings Norbert Cells Bite Cells Crenated Cell Elliptocytes Acanthocytes (Spur) Rouleaux Hemoglobin C Crystals Schistocytes Malaria parasites Dereck Bodies Hem Pathologist Commnt ABG pH POC ABG pCO2 POC ABG pO2 POC ABG HCO3 ABG O2 Saturation POC ABG Base Excess ABG Hemoglobin ABG Oxyhemoglobin ABG Methemoglobin ABG Sodium ABG Potassium ABG Chloride ABG Glucose Carboxyhemoglobin FiO2 % Sodium Potassium Chloride Carbon Dioxide Anion Gap BUN Creatinine Estimated GFR BUN/Creatinine Ratio Glucose POC Glucose 50 L Calcium Arterial Blood Glucose Arterial Blood Ionized Calcium Coronavirus (PCR)
[2020-10-15 14:06] LABS: Platelet Count 86 K/mm3 (140-440)
--- NOTE | 2020-10-15 15:06 | Consultation ---
DATE OF CONSULTATION: 10/15/2020 PULMONARY AND CRITICAL CARE CONSULT NOTE CONSULTING PHYSICIAN: Dr. Rosa. REASON FOR CONSULTATION: Cardiac arrest with return of spontaneous circulation, acute hypoxemic respiratory failure. CHIEF COMPLAINT AND HISTORY OF PRESENT ILLNESS: As follows: The patient is a 74-year-old male who presented to the Emergency Room about 2 weeks ago on 10/03/2020 with altered mental status and left-sided weakness, last known well time was 12 hours prior to presentation. The patient was also found incontinent of feces and urine. A CT of the head showed no acute finding, but cerebral atrophy with suspicious calcifications within the distal right middle cerebral artery. He was admitted with an acute encephalopathy, hypothermia, pneumonia and apparently had been admitted to the medical floor. Neurology had also been following along in the hospital. He was diagnosed with severe protein-calorie malnutrition and was being prepped for percutaneous endoscopic gastrostomy tube placement. The EEG could not rule out an acute seizure with a postictal state and was treated with Rocephin and Zithromax for his pneumonia. Earlier today, the patient developed worsening respiratory distress. The patient remained a full code. He was using accessory muscles of respiration and a decision was made actually to semi-electively intubate him if there was apparently no cardiac arrest. Post-intubation, he was brought down to the intensive care unit and we are consulted. When I stopped by to see him, he was resting in bed, on the mechanical ventilator. He was on a Levophed drip going at 2 mcg per minute. He also had just received a bolus of 1 liter of normal saline. This really is as much of the history of presentation as I have with regard to the patient's tobacco use/abuse history that is unknown. PAST MEDICAL HISTORY: Gastroesophageal reflux disease. PAST SURGICAL HISTORY: Denied at admission. MEDICATIONS: He was on at the time I stopped by to see him, according to the medication administration record included the following: Tylenol 650 mg p.o. q.4 hours p.r.n. mild pain or fevers, Rocephin 1 gram IV daily, ferrous sulfate 325 mg p.o. daily, folic acid 1 mg p.o. daily, Lasix 40 mg IV daily, Keppra looks like 250 mg IV q. 12 hours, Reglan 10 mg IV q.6 hours p.r.n. nausea and vomiting, daily multivitamin, Zofran 4 mg IV q.8 hours p.r.n. nausea and vomiting, Percocet 1 tablet p.o. q.6 hours p.r.n. moderate pain, Protonix 40 mg IV daily, senna 8.6 mg p.o. q.12 hours, thiamine 300 mg IV daily. The thiamine is a 3-day order from the neurologist. ALLERGIES: No known drug allergies. DIET: Well built gentleman, acute weight loss or gain history is unknown. FAMILY AND SOCIAL HISTORY: Looks like he lives in the community prior to coming in. Alcohol, tobacco or illicit drug use or abuse history unknown. Family history is otherwise unknown. REVIEW OF SYSTEMS: Unobtainable secondary to patient's medical and mental condition to date. No gross hematochezia or melena, no gross hematuria, no hematemesis, no witnessed seizures. Review of systems otherwise unobtainable or as in body of history above. PHYSICAL EXAMINATION: VITAL SIGNS: He is afebrile, temperature 98.6 degrees Fahrenheit, pulse 73, respiratory rate is the set rate on the ventilator of 25, blood pressure currently 99/68 and that was on Levophed drip, O2 sats 100% that is on the assist control mode of ventilation, tidal volume 450, rate of 25 and PEEP of 8. GENERAL: Elderly, chronically ill-looking male. Normocephalic, atraumatic on the mechanical ventilator without significant patient-ventilator dyssynchrony. HEENT: Anicteric. No conjunctival erythema. Oropharynx was moist. ET tube was taped at the lips around 24 cm. Grossly, there were no palpable lymph nodes in the supraclavicular or submandibular lymph node chains. LUNGS: Auscultation of both lung waters revealed bilateral rales, no wheezing. HEART: Sounds 1 and 2 were heard, regular rate and rhythm at the time of my evaluation without overt rubs or murmurs. ABDOMEN: Soft, full, protuberant. Bowel sounds are positive, nontender, no palpable hepatosplenomegaly. EXTREMITIES: Without overt digital clubbing or cyanosis. He has edema to all 4 extremities, 1+ pitting edema. Pedal pulses are palpable, but weak. NEUROLOGIC: Pupils are equal, round, about 3 mm, reactive to light. Extraocular muscle movements cannot be assessed. He did not have significant spontaneous movements. He did not respond to prompts and was described as having hemiparesis at initial presentation. SKIN: Very poor turgor in the areas examined without overt cellulitis or rash. Please see the wound care nurses' notes for full description of his skin. PSYCHIATRIC: Mood and affect could not be assessed. He was encephalopathic. LABORATORY DATA: From my review are as follows: Admission labs, admission white cell count was 7800, hemoglobin was 6.7, hematocrit was 21.8, platelet count was 253. No significant band forms at presentation. INR was 1.74. Serum sodium 139, potassium 3.6, chloride 101, bicarbonate 27, BUN 15, creatinine 0.9, glucose 42. Lactic acid level was 2.2 at presentation. Ammonia level within normal limits. Albumin was 2.9 at presentation. Aspirin, Tylenol, alcohol levels were not detected. He has had three negative coronavirus tests during this hospitalization. Today, white count is 14,100, hemoglobin is 9.4, it was as low as 5.3 during this admission. Platelet count is pending, it was 83 yesterday. ABG at the time of intubation showed a pH of 7.05, pCO2 of 65, pO2 of 214 on 100% FIO2. Post-intubation, ABGs showed a pH of 7.20, pCO2 is down to 45, pO2 is 123 on 70%, the rate has since been increased. BUN is 26, creatinine is 1.5, glucose is 124. Chest x-ray has been reviewed. He has new bibasilar predominant infiltrates, likely small bilateral pleural effusions, perhaps an area of partial atelectasis in the right lower lobe region. No gross pneumothorax, no gross bony fracture. ET tube is in good position. ASSESSMENT: 1. Acute hypoxemic respiratory failure. 2. Bilateral pneumonia. 3. Bilateral pleural effusions. 4. Bilateral pulmonary edema. 5. Acute kidney injury. 6. Acute encephalopathy. 7. Severe protein calorie malnutrition. 8. Oropharyngeal dysphagia. 9. Anemia that is microcytic. 10. Oropharyngeal dysphagia. PLAN: We will keep him on full mechanical ventilatory support in the short time. Oxygen will be weaned to keep sats greater than or equal to about 92%. Aspiration precautions will be maintained. Ventilator-associated pneumonia bundle has been introduced. Bronchodilators will be scheduled initially and then on a p.r.n. basis. He is on Rocephin and has been on Zithromax. He had been treated for community-acquired pneumonia therapy. I will await the result of the tracheal aspirate before starting empiric antibiotic therapy. I will get a procalcitonin level, lactic acid level, CRP levels to help guide clinical decision making. We will hold on coronavirus testing. He has had 3 negative ones including the recent one last 48 hours. Enteral nutrition will be the feeding modality of choice. Feeding tube will be placed and conservative volume management strategies. Third spacing related to his hypoalbuminemia is probably contributing to the pulmonary edema. We will discontinue the Lasix for now until he is more stable. Early Nephrology consultation should be considered and I do see that there is a scene shifter on-call. He is appropriately on GI prophylaxis with Protonix with thrombocytopenia and I will hold on DVT prophylaxis except with SCDs for now. I am going to get bilateral upper and lower extremity Dopplers to evaluate for DVTs. Flu and pneumonia vaccination will be addressed per protocol. Thank you very much for the consult. We will follow along and make further recommendations as picture progresses/becomes clearer. I should mention I have reviewed the results of his 2D echocardiogram done on the 10/04/2020 and does have ejection fraction of 25-30%, definitely will be maintained in a conservative volume management strategies. He is critically ill on life-sustaining interventions including mechanical ventilatory support, at very high risk of from cardiopulmonary system decompensation. I should mention also vasopressors will be weaned to keep mean arterial pressures greater than or equal to about 65 mmHg. At this time, I spent about 35-40 minutes of critical care time without overlap and excluding any procedural time that may be necessary. TID: [id number] RECEIPT: [id number] JACOB/CARLOS
[2020-10-15] MEDS: FOLIC ACID 1 MG TAB PO SCH (16:06)
[2020-10-15] MEDS: FERROUS SULFATE 325 MG TAB PO SCH (16:06)
[2020-10-15] MEDS: MULTIVITAMINS ,THERAPEUTIC TAB PO SCH (16:09)
[2020-10-15] MEDS: PANTOPRAZOLE 40 MG INJ IV SCH (16:09)
[2020-10-15] MEDS: THIAMINE 300 MG in SODIUM CHLORIDE 0.9% 50 ML IV SCH (16:12)
[2020-10-15 21:51] LABS: Basophils # (Auto) 0.1 K/mm3 (0.0-0.1); Eosinophils % (Auto) 0.3 % (0.0-4.3); Monocytes # (Auto) 1.3 K/mm3 (0.0-0.8); Monocytes % (Auto) 8.3 % (0.0-7.3)
[2020-10-16] MEDS: WATER IV SCH ×2 (01:58→11:40)
[2020-10-16] MEDS: SODIUM CHLORIDE IV SCH ×2 (01:58→11:40)
[2020-10-16] MEDS: DEXTROSE 10% IV SCH ×2 (01:58→11:40)
[2020-10-16] MEDS: NORepinephrine/NS 4 MG-250 ML 4 MG/250 ML BAG IV SCH ×4 (04:31→15:56)
[2020-10-16] MEDS: DEXTROSE 50% IN WATER (25GM) 50 ML SYRINGE IV PRN ×10 (05:53→18:53)
[2020-10-16] MEDS: SIMPLE SYRUP 15 ML FEEDTUBE PRN ×4 (06:28→22:02)
[2020-10-16 06:59] LABS: Calcium 8.1 mg/dL (8.4-10.2)
[2020-10-16 07:02] LABS: Hematocrit 26.6 % (35.5-45.6); Hemoglobin 8.3 gm/dl (11.8-15.2); Mean Corpuscular HGB Conc 31 % (32-34); Mean Corpuscular Volume 75 fl (84-94); Red Blood Count 3.52 M/mm3 (3.65-5.03)
[2020-10-16 07:03] LABS: Red Cell Distribution Width 33.7 % (13.2-15.2)
[2020-10-16 07:15] LABS: INR 2.17 (0.87-1.13)
[2020-10-16] MEDS: FERROUS SULFATE 308 MG (62mg Elemental Iron) / 7 ML ELIXIR FEEDTUBE SCH (09:28)
[2020-10-16] MEDS: MULTIVITAMIN / MINERAL ORAL LIQUID 15 ML PO SCH (09:28)
[2020-10-16] MEDS: PANTOPRAZOLE 40 MG INJ IV SCH (09:28)
[2020-10-16] MEDS: FOLIC ACID 1 MG TAB PO SCH (09:28)
[2020-10-16] MEDS: levETIRAcetam 250 MG in DEXTROSE 5% IN WATER 100 ML IV SCH ×2 (09:28→21:03)
[2020-10-16] MEDS ORDERED: FUROSEMIDE 40 MG/4 ML INJ IV SCH (10:00)
--- NOTE | 2020-10-16 11:37 | Progress Note ---
Assessment and Plan Acute hypoxemic respiratory failure Bilateral pneumonia Bilateral pleural effusions Bilateral pulmonary edema Acute kidney injury Acute encephalopathy Severe protein calorie malnutrition Oropharyngeal dysphagia Anemia that is microcytic Oropharyngeal dysphagia - pushed 1 amp NaHCO3 re: acidosis - increased set minute ventilation - repeat ABG at 9pm - begin bicarbonate drip - A-fib is paroxysmal; Cardiology consulted re: ? anticoagulation (INR is therapeutic) - complete Cefepime dosing - warming blanket re: hypothermia - continue care as below otherwise; - VAP bundle addressed (HOB > 40 degrees) - sedation target RASS -2 to -3 acutely re: barotrauma - daily SAT's & SBT assessments as tolerated - continue glycemic control withh SSI for target BG 140-180 mg while critically ill; avoid hypoglycema - continue lung protective strategies - bronchodilators with pulmonary hygiene per RT - avoid nephrotoxins, renally dose all medications - prn analgesia per pain score - Maintenance of sleep-wake cycle, avoid delirium - supportive transfusions for serum Hb < 7.0g/dl - G.I. & VTE prophylaxis - PT/OT/ROM exercises - continue mobility protocols for pressure ulcer prophylaxis - Monitor hemodynamics closely - continue other care per attending / other consultants - discharge planning ongoing concurrently COVID SPECIFIC INTERVENTIONS - COVID-19 test negative .... Re-evaluate in am & prn CONDITION: CRITICAL PROGNOSIS: GUARDED CODE STATUS: FULL CODE The high probability of a clinically significant, sudden or life-threatening deterioration of the [respiratory, cardiovascular, & neurologic] system(s) required my full and direct attention, intervention and personal management. The aggregate critical care time was [32] minutes without overlap. Time includes spent on; [x] Data Review and interpretation [x] Patient assessment and monitoring of vital signs [x] Documentation [x] Medication orders and management Subjective Date of service: 10/16/20 Principal diagnosis: Ac hypoxemic resp failure; Pneumonia; BETSY; Ac. encephalopathy Interval history: Patient is seen today for: Acute hypoxemic respiratory failure; Pneumonia; Pleural effusions; BETSY; Acute encephalopathy; Severe protein calorie malnutrition Seen and examined at bedside; 24hour events reviewed; nursing and respiratory care staff consulted; no adverse overnight events reported to me; resting in bed; remains on MVS; hypothermic; hypoglycemic; now developed A-fib with RVR; AMS is persistent Objective Vital Signs - 12hr 10/16/20 10/16/20 10/16/20 00:00 03:25 03:42 Temperature 92.0 F L 95.4 F L Pulse Rate 70 102 H Pulse Rate [ 98 H From Monitor] Respiratory 25 H Rate Blood Pressure 98/64 O2 Sat by Pulse 100 98 Oximetry 10/16/20 10/16/20 10/16/20 04:00 07:15 08:13 Temperature 98.5 F Pulse Rate 82 104 H Pulse Rate [ 83 From Monitor] Respiratory 25 H Rate Blood Pressure 79/50 O2 Sat by Pulse 100 98 Oximetry Constitutional: appears uncomfortable, other (elderly and chronically ill looking male with mildly increased respiratory effort at rest on MVS) Eyes: non-icteric ENT: oropharynx dry, other (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0) 10/16/20 00:45 POC ABG pO2 49.8 mmHg (83-108) L 10/16/20 00:45 POC ABG HCO3 17.2 10/16/20 00:45 ABG O2 Saturation 83.7 (0-100) 10/16/20 00:45 PT/INR, D-dimer PT 24.5 Sec. (12.2-14.9) H 10/16/20 05:53 INR 2.17 (0.87-1.13) H 10/16/20 05:53 Abnormal lab findings: Abnormal Labs 10/02/20 10/02/20 10/02/20 23:17 23:17 23:17 WBC RBC 3.31 L Hgb 6.7 L Hct 21.8 L MCV 66 L MCH 20 L MCHC 31 L RDW 31.7 H Plt Count [place] % (Auto) [place] # (Auto) Seg Neutrophils % Seg Neuts % (Manual) 79.0 H Lymphocytes % (Manual) 11.0 L Monocytes % (Manual) 10.0 H Basophils % (Manual) Nucleated RBC % Seg Neutrophils # Seg Neutrophils # Man Lymphocytes # (Manual) 0.9 L Monocytes # (Manual) Basophils # (Manual) PT 20.8 H INR 1.74 H APTT 57.6 H ABG pH POC ABG pCO2 POC ABG pO2 ABG Hemoglobin ABG Oxyhemoglobin ABG Sodium ABG Potassium ABG Chloride ABG Glucose Sodium Potassium Chloride Carbon Dioxide BUN Creatinine Glucose 42 L POC Glucose Lactic Acid Calcium Iron Ammonia CK-MB (CK-2) 7.5 H CK-MB (CK-2) Rel Index 8.5 H Total Protein Albumin 2.9 L Arterial Blood Glucose Urine Creatinine Urine Total Protein Salicylates Acetaminophen Crossmatch 10/02/20 10/02/20 10/02/20 23:17 23:17 23:17 WBC RBC Hgb Hct MCV MCH MCHC RDW Plt Count [place] % (Auto) [place] # (Auto) Seg Neutrophils % Seg Neuts % (Manual) Lymphocytes % (Manual) Monocytes % (Manual) Basophils % (Manual) Nucleated RBC % Seg Neutrophils # Seg Neutrophils # Man Lymphocytes # (Manual) Monocytes # (Manual) Basophils # (Manual) PT INR APTT ABG pH POC ABG pCO2 POC ABG pO2 ABG Hemoglobin ABG Oxyhemoglobin ABG Sodium ABG Potassium ABG Chloride ABG Glucose Sodium Potassium Chloride Carbon Dioxide BUN Creatinine Glucose POC Glucose Lactic Acid 2.20 H* Calcium Iron Ammonia 22.0 L CK-MB (CK-2) CK-MB (CK-2) Rel Index Total Protein Albumin Arterial Blood Glucose Urine Creatinine Urine Total Protein Salicylates < 0.3 L Acetaminophen Crossmatch 10/02/20 10/03/20 10/03/20 23:17 05:57 05:57 WBC RBC 2.66 L Hgb 5.3 L* Hct 17.8 L* MCV 67 L MCH 20 L MCHC 30 L RDW 32.1 H Plt Count [place] % (Auto) [place] # (Auto) Seg Neutrophils % Seg Neuts % (Manual) Lymphocytes % (Manual) 2.0 L Monocytes % (Manual) Basophils % (Manual) Nucleated RBC % 1.0 H Seg Neutrophils # Seg Neutrophils # Man 8.6 H Lymphocytes # (Manual) 0.2 L Monocytes # (Manual) Basophils # (Manual) PT INR APTT ABG pH POC ABG pCO2 POC ABG pO2 ABG Hemoglobin ABG Oxyhemoglobin ABG Sodium ABG Potassium ABG Chloride ABG Glucose Sodium Potassium Chloride Carbon Dioxide BUN Creatinine Glucose POC Glucose Lactic Acid Calcium Iron Ammonia CK-MB (CK-2) CK-MB (CK-2) Rel Index Total Protein Albumin Arterial Blood Glucose Urine Creatinine Urine Total Protein Salicylates Acetaminophen 5.0 L Crossmatch See Detail 10/03/20 10/03/20 10/03/20 05:57 05:57 06:00 WBC RBC Hgb Hct MCV MCH MCHC RDW Plt Count [place] % (Auto) [place] # (Auto) Seg Neutrophils % Seg Neuts % (Manual) Lymphocytes % (Manual) Monocytes % (Manual) Basophils % (Manual) Nucleated RBC % Seg Neutrophils # Seg Neutrophils # Man Lymphocytes # (Manual) Monocytes # (Manual) Basophils # (Manual) PT INR APTT ABG pH POC ABG pCO2 POC ABG pO2 ABG Hemoglobin ABG Oxyhemoglobin ABG Sodium ABG Potassium ABG Chloride ABG Glucose Sodium Potassium Chloride Carbon Dioxide BUN Creatinine Glucose 52 L POC Glucose 31 L Lactic Acid Calcium Iron 42 L Ammonia CK-MB (CK-2) CK-MB (CK-2) Rel Index Total Protein 5.8 L Albumin 3.1 L Arterial Blood Glucose Urine Creatinine Urine Total Protein Salicylates Acetaminophen Crossmatch 10/03/20 10/03/20 10/03/20 07:34 09:43 10:57 WBC RBC Hgb Hct MCV MCH MCHC RDW Plt Count [place] % (Auto) [place] # (Auto) Seg Neutrophils % Seg Neuts % (Manual) Lymphocytes % (Manual) Monocytes % (Manual) Basophils % (Manual) Nucleated RBC % Seg Neutrophils # Seg Neutrophils # Man Lymphocytes # (Manual) Monocytes # (Manual) Basophils # (Manual) PT INR APTT ABG pH POC ABG pCO2 POC ABG pO2 ABG Hemoglobin ABG Oxyhemoglobin ABG Sodium ABG Potassium ABG Chloride ABG Glucose Sodium Potassium Chloride Carbon Dioxide BUN Creatinine Glucose POC Glucose 59 L 41 L 31 L Lactic Acid Calcium Iron Ammonia CK-MB (CK-2) CK-MB (CK-2) Rel Index Total Protein Albumin Arterial Blood Glucose Urine Creatinine Urine Total Protein Salicylates Acetaminophen Crossmatch 10/03/20 10/03/20 10/03/20 11:21 12:00 12:14 WBC RBC Hgb Hct MCV MCH MCHC RDW Plt Count [place] % (Auto) [place] # (Auto) Seg Neutrophils % Seg Neuts % (Manual) Lymphocytes % (Manual) Monocytes % (Manual) Basophils % (Manual) Nucleated RBC % Seg Neutrophils # Seg Neutrophils # Man Lymphocytes # (Manual) Monocytes # (Manual) Basophils # (Manual) PT INR APTT ABG pH POC ABG pCO2 POC ABG pO2 ABG Hemoglobin ABG Oxyhemoglobin ABG Sodium ABG Potassium ABG Chloride ABG Glucose Sodium Potassium Chloride Carbon Dioxide BUN Creatinine Glucose POC Glucose 62 L 26 L 140 H Lactic Acid Calcium Iron Ammonia CK-MB (CK-2) CK-MB (CK-2) Rel Index Total Protein Albumin Arterial Blood Glucose Urine Creatinine Urine Total Protein Salicylates Acetaminophen Crossmatch 10/03/20 10/03/20 10/03/20 13:33 14:19 14:59 WBC RBC Hgb Hct MCV MCH MCHC RDW Plt Count [place] % (Auto) [place] # (Auto) Seg Neutrophils % Seg Neuts % (Manual) Lymphocytes % (Manual) Monocytes % (Manual) Basophils % (Manual) Nucleated RBC % Seg Neutrophils # Seg Neutrophils # Man Lymphocytes # (Manual) Monocytes # (Manual) Basophils # (Manual) PT INR APTT ABG pH POC ABG pCO2 POC ABG pO2 ABG Hemoglobin ABG Oxyhemoglobin ABG Sodium ABG Potassium ABG Chloride ABG Glucose Sodium Potassium Chloride Carbon Dioxide BUN Creatinine Glucose POC Glucose 24 L 59 L 40 L Lactic Acid Calcium Iron Ammonia CK-MB (CK-2) CK-MB (CK-2) Rel Index Total Protein Albumin Arterial Blood Glucose Urine Creatinine Urine Total Protein Salicylates Acetaminophen Crossmatch 10/03/20 10/03/20 10/03/20 15:26 15:57 16:35 WBC RBC Hgb Hct MCV MCH MCHC RDW Plt Count [place] % (Auto) [place] # (Auto) Seg Neutrophils % Seg Neuts % (Manual) Lymphocytes % (Manual) Monocytes % (Manual) Basophils % (Manual) Nucleated RBC % Seg Neutrophils # Seg Neutrophils # Man Lymphocytes # (Manual) Monocytes # (Manual) Basophils # (Manual) PT INR APTT ABG pH POC ABG pCO2 POC ABG pO2 ABG Hemoglobin ABG Oxyhemoglobin ABG Sodium ABG Potassium ABG Chloride ABG Glucose Sodium Potassium Chloride Carbon Dioxide BUN Creatinine Glucose POC Glucose 54 L 45 L 42 L Lactic Acid Calcium Iron Ammonia CK-MB (CK-2) CK-MB (CK-2) Rel Index Total Protein Albumin Arterial Blood Glucose Urine Creatinine Urine Total Protein Salicylates Acetaminophen Crossmatch 10/03/20 10/03/20 10/03/20 17:16 18:37 19:56 WBC RBC Hgb Hct MCV MCH MCHC RDW Plt Count [place] % (Auto) [place] # (Auto) Seg Neutrophils % Seg Neuts % (Manual) Lymphocytes % (Manual) Monocytes % (Manual) Basophils % (Manual) Nucleated RBC % Seg Neutrophils # Seg Neutrophils # Man Lymphocytes # (Manual) Monocytes # (Manual) Basophils # (Manual) PT INR APTT ABG pH POC ABG pCO2 POC ABG pO2 ABG Hemoglobin ABG Oxyhemoglobin ABG Sodium ABG Potassium ABG Chloride ABG Glucose Sodium Potassium Chloride Carbon Dioxide BUN Creatinine Glucose POC Glucose 41 L 46 L 57 L Lactic Acid Calcium Iron Ammonia CK-MB (CK-2) CK-MB (CK-2) Rel Index Total Protein Albumin Arterial Blood Glucose Urine Creatinine Urine Total Protein Salicylates Acetaminophen Crossmatch 10/03/20 10/04/20 10/04/20 21:32 01:04 01:11 WBC RBC Hgb 9.6 L D Hct 28.3 L D MCV MCH MCHC RDW Plt Count [place] % (Auto) [place] # (Auto) Seg Neutrophils % Seg Neuts % (Manual) Lymphocytes % (Manual) Monocytes % (Manual) Basophils % (Manual) Nucleated RBC % Seg Neutrophils # Seg Neutrophils # Man Lymphocytes # (Manual) Monocytes # (Manual) Basophils # (Manual) PT INR APTT ABG pH POC ABG pCO2 POC ABG pO2 ABG Hemoglobin ABG Oxyhemoglobin ABG Sodium ABG Potassium ABG Chloride ABG Glucose Sodium Potassium Chloride Carbon Dioxide BUN Creatinine Glucose POC Glucose 65 L 51 L Lactic Acid Calcium Iron Ammonia CK-MB (CK-2) CK-MB (CK-2) Rel Index Total Protein Albumin Arterial Blood Glucose Urine Creatinine Urine Total Protein Salicylates Acetaminophen Crossmatch 10/04/20 10/04/20 10/04/20 05:59 05:59 15:10 WBC 13.4 H RBC Hgb 9.9 L 10.1 L Hct 32.0 L 31.8 L MCV 76 L MCH 24 L MCHC 31 L RDW 31.3 H Plt Count [place] % (Auto) [place] # (Auto) Seg Neutrophils % Seg Neuts % (Manual) 86.0 H Lymphocytes % (Manual) 6.0 L Monocytes % (Manual) 8.0 H Basophils % (Manual) Nucleated RBC % 2.0 H Seg Neutrophils # Seg Neutrophils # Man 11.5 H Lymphocytes # (Manual) 0.8 L Monocytes # (Manual) 1.1 H Basophils # (Manual) PT INR APTT ABG pH POC ABG pCO2 POC ABG pO2 ABG Hemoglobin ABG Oxyhemoglobin ABG Sodium ABG Potassium ABG Chloride ABG Glucose Sodium 136 L Potassium 3.5 L Chloride Carbon Dioxide 19 L D BUN Creatinine Glucose POC Glucose Lactic Acid Calcium Iron Ammonia CK-MB (CK-2) CK-MB (CK-2) Rel Index Total Protein Albumin 2.6 L Arterial Blood Glucose Urine Creatinine Urine Total Protein Salicylates Acetaminophen Crossmatch 10/04/20 10/04/20 10/05/20 16:28 22:33 04:43 WBC RBC Hgb 10.5 L Hct 32.5 L MCV MCH MCHC RDW Plt Count [place] % (Auto) [place] # (Auto) Seg Neutrophils % Seg Neuts % (Manual) Lymphocytes % (Manual) Monocytes % (Manual) Basophils % (Manual) Nucleated RBC % Seg Neutrophils # Seg Neutrophils # Man Lymphocytes # (Manual) Monocytes # (Manual) Basophils # (Manual) PT INR APTT ABG pH POC ABG pCO2 POC ABG pO2 ABG Hemoglobin ABG Oxyhemoglobin ABG Sodium ABG Potassium ABG Chloride ABG Glucose Sodium Potassium Chloride Carbon Dioxide BUN Creatinine Glucose POC Glucose 66 L 113 H Lactic Acid Calcium Iron Ammonia CK-MB (CK-2) CK-MB (CK-2) Rel Index Total Protein Albumin Arterial Blood Glucose Urine Creatinine Urine Total Protein Salicylates Acetaminophen Crossmatch 10/05/20 10/05/20 10/05/20 05:00 09:42 11:57 WBC RBC Hgb 9.8 L Hct 30.5 L MCV 74 L MCH 24 L MCHC RDW 31.6 H Plt Count [place] % (Auto) [place] # (Auto) Seg Neutrophils % Seg Neuts % (Manual) Lymphocytes % (Manual) Monocytes % (Manual) Basophils % (Manual) Nucleated RBC % Seg Neutrophils # Seg Neutrophils # Man Lymphocytes # (Manual) Monocytes # (Manual) Basophils # (Manual) PT INR APTT ABG pH POC ABG pCO2 POC ABG pO2 ABG Hemoglobin ABG Oxyhemoglobin ABG Sodium ABG Potassium ABG Chloride ABG Glucose Sodium 132 L Potassium 3.5 L Chloride Carbon Dioxide 19 L BUN Creatinine 0.7 L Glucose POC Glucose 129 H Lactic Acid Calcium Iron Ammonia CK-MB (CK-2) CK-MB (CK-2) Rel Index Total Protein Albumin Arterial Blood Glucose Urine Creatinine Urine Total Protein Salicylates Acetaminophen Crossmatch 10/05/20 10/05/20 10/06/20 16:47 21:51 05:07 WBC RBC Hgb 9.4 L Hct 30.1 L MCV 76 L MCH 24 L MCHC 31 L RDW 31.1 H Plt Count [place] % (Auto) [place] # (Auto) Seg Neutrophils % Seg Neuts % (Manual) Lymphocytes % (Manual) Monocytes % (Manual) Basophils % (Manual) Nucleated RBC % Seg Neutrophils # Seg Neutrophils # Man Lymphocytes # (Manual) Monocytes # (Manual) Basophils # (Manual) PT INR APTT ABG pH POC ABG pCO2 POC ABG pO2 ABG Hemoglobin ABG Oxyhemoglobin ABG Sodium ABG Potassium ABG Chloride ABG Glucose Sodium Potassium Chloride Carbon Dioxide BUN Creatinine Glucose POC Glucose 132 H 115 H Lactic Acid Calcium Iron Ammonia CK-MB (CK-2) CK-MB (CK-2) Rel Index Total Protein Albumin Arterial Blood Glucose Urine Creatinine Urine Total Protein Salicylates Acetaminophen Crossmatch 10/06/20 10/06/20 10/06/20 05:07 15:37 21:01 WBC RBC Hgb Hct MCV MCH MCHC RDW Plt Count [place] % (Auto) [place] # (Auto) Seg Neutrophils % Seg Neuts % (Manual) Lymphocytes % (Manual) Monocytes % (Manual) Basophils % (Manual) Nucleated RBC % Seg Neutrophils # Seg Neutrophils # Man Lymphocytes # (Manual) Monocytes # (Manual) Basophils # (Manual) PT INR APTT ABG pH POC ABG pCO2 POC ABG pO2 ABG Hemoglobin ABG Oxyhemoglobin ABG Sodium ABG Potassium ABG Chloride ABG Glucose Sodium 133 L Potassium 3.5 L Chloride Carbon Dioxide 21 L BUN Creatinine 0.6 L Glucose 105 H POC Glucose 136 H 108 H Lactic Acid Calcium Iron Ammonia CK-MB (CK-2) CK-MB (CK-2) Rel Index Total Protein Albumin Arterial Blood Glucose Urine Creatinine Urine Total Protein Salicylates Acetaminophen Crossmatch 10/07/20 10/07/20 10/07/20 04:52 04:52 06:07 WBC RBC Hgb 9.6 L Hct 29.4 L MCV 73 L MCH 24 L MCHC RDW 32.2 H Plt Count [place] % (Auto) [place] # (Auto) Seg Neutrophils % Seg Neuts % (Manual) Lymphocytes % (Manual) Monocytes % (Manual) Basophils % (Manual) Nucleated RBC % Seg Neutrophils # Seg Neutrophils # Man Lymphocytes # (Manual) Monocytes # (Manual) Basophils # (Manual) PT INR APTT ABG pH POC ABG pCO2 POC ABG pO2 ABG Hemoglobin ABG Oxyhemoglobin ABG Sodium ABG Potassium ABG Chloride ABG Glucose Sodium 128 L Potassium Chloride Carbon Dioxide 20 L BUN Creatinine 0.7 L Glucose POC Glucose 110 H Lactic Acid Calcium Iron Ammonia CK-MB (CK-2) CK-MB (CK-2) Rel Index Total Protein Albumin Arterial Blood Glucose Urine Creatinine Urine Total Protein Salicylates Acetaminophen Crossmatch 10/07/20 10/07/20 10/07/20 17:09 18:53 20:35 WBC RBC Hgb Hct MCV MCH MCHC RDW Plt Count [place] % (Auto) [place] # (Auto) Seg Neutrophils % Seg Neuts % (Manual) Lymphocytes % (Manual) Monocytes % (Manual) Basophils % (Manual) Nucleated RBC % Seg Neutrophils # Seg Neutrophils # Man Lymphocytes # (Manual) Monocytes # (Manual) Basophils # (Manual) PT INR APTT ABG pH POC ABG pCO2 POC ABG pO2 ABG Hemoglobin ABG Oxyhemoglobin ABG Sodium ABG Potassium ABG Chloride ABG Glucose Sodium Potassium Chloride Carbon Dioxide BUN Creatinine Glucose POC Glucose 67 L 66 L 62 L Lactic Acid Calcium Iron Ammonia CK-MB (CK-2) CK-MB (CK-2) Rel Index Total Protein Albumin Arterial Blood Glucose Urine Creatinine Urine Total Protein Salicylates Acetaminophen Crossmatch 10/07/20 10/08/20 10/08/20 21:55 05:00 05:00 WBC RBC Hgb 9.6 L Hct 29.4 L MCV 73 L MCH 24 L MCHC RDW 32.4 H Plt Count [place] % (Auto) [place] # (Auto) Seg Neutrophils % 80.6 H Seg Neuts % (Manual) 88.0 H Lymphocytes % (Manual) 9.0 L Monocytes % (Manual) Basophils % (Manual) Nucleated RBC % 5.0 H Seg Neutrophils # Seg Neutrophils # Man Lymphocytes # (Manual) 0.5 L Monocytes # (Manual) Basophils # (Manual) PT INR APTT ABG pH POC ABG pCO2 POC ABG pO2 ABG Hemoglobin ABG Oxyhemoglobin ABG Sodium ABG Potassium ABG Chloride ABG Glucose Sodium 126 L Potassium Chloride 96.3 L Carbon Dioxide BUN Creatinine 0.7 L Glucose POC Glucose 132 H Lactic Acid Calcium Iron Ammonia CK-MB (CK-2) CK-MB (CK-2) Rel Index Total Protein Albumin Arterial Blood Glucose Urine Creatinine Urine Total Protein Salicylates Acetaminophen Crossmatch 10/08/20 10/09/20 10/09/20 22:26 01:36 02:22 WBC RBC Hgb Hct MCV MCH MCHC RDW Plt Count [place] % (Auto) [place] # (Auto) Seg Neutrophils % Seg Neuts % (Manual) Lymphocytes % (Manual) Monocytes % (Manual) Basophils % (Manual) Nucleated RBC % Seg Neutrophils # Seg Neutrophils # Man Lymphocytes # (Manual) Monocytes # (Manual) Basophils # (Manual) PT INR APTT ABG pH POC ABG pCO2 POC ABG pO2 ABG Hemoglobin ABG Oxyhemoglobin ABG Sodium ABG Potassium ABG Chloride ABG Glucose Sodium Potassium Chloride Carbon Dioxide BUN Creatinine Glucose POC Glucose 63 L 62 L 151 H Lactic Acid Calcium Iron Ammonia CK-MB (CK-2) CK-MB (CK-2) Rel Index Total Protein Albumin Arterial Blood Glucose Urine Creatinine Urine Total Protein Salicylates Acetaminophen Crossmatch 10/09/20 10/09/20 10/09/20 05:07 05:42 06:32 WBC RBC Hgb 10.3 L Hct 33.8 L MCV 77 L MCH 24 L MCHC 31 L RDW 33.6 H Plt Count 137 L [place] % (Auto) [place] # (Auto) Seg Neutrophils % Seg Neuts % (Manual) 89.0 H Lymphocytes % (Manual) 5.0 L Monocytes % (Manual) Basophils % (Manual) Nucleated RBC % 4.0 H Seg Neutrophils # Seg Neutrophils # Man 9.4 H Lymphocytes # (Manual) 0.5 L Monocytes # (Manual) Basophils # (Manual) PT INR APTT ABG pH POC ABG pCO2 POC ABG pO2 ABG Hemoglobin ABG Oxyhemoglobin ABG Sodium ABG Potassium ABG Chloride ABG Glucose Sodium 126 L Potassium Chloride 97.8 L Carbon Dioxide 20 L BUN Creatinine Glucose 58 L POC Glucose 48 L Lactic Acid Calcium Iron Ammonia CK-MB (CK-2) CK-MB (CK-2) Rel Index Total Protein Albumin Arterial Blood Glucose Urine Creatinine Urine Total Protein Salicylates Acetaminophen Crossmatch 10/09/20 10/10/20 10/10/20 06:35 00:21 05:53 WBC RBC Hgb Hct MCV MCH MCHC RDW Plt Count [place] % (Auto) [place] # (Auto) Seg Neutrophils % Seg Neuts % (Manual) Lymphocytes % (Manual) Monocytes % (Manual) Basophils % (Manual) Nucleated RBC % Seg Neutrophils # Seg Neutrophils # Man Lymphocytes # (Manual) Monocytes # (Manual) Basophils # (Manual) PT INR APTT ABG pH POC ABG pCO2 POC ABG pO2 ABG Hemoglobin ABG Oxyhemoglobin ABG Sodium ABG Potassium ABG Chloride ABG Glucose Sodium Potassium Chloride Carbon Dioxide BUN Creatinine Glucose POC Glucose 106 H 153 H 34 L Lactic Acid Calcium Iron Ammonia CK-MB (CK-2) CK-MB (CK-2) Rel Index Total Protein Albumin Arterial Blood Glucose Urine Creatinine Urine Total Protein Salicylates Acetaminophen Crossmatch 10/10/20 10/10/20 10/10/20 10:58 10:58 12:39 WBC RBC Hgb 10.3 L Hct 33.9 L MCV 78 L MCH 24 L MCHC 30 L RDW 33.2 H Plt Count 135 L [place] % (Auto) [place] # (Auto) Seg Neutrophils % Seg Neuts % (Manual) 74.0 H Lymphocytes % (Manual) 12.0 L Monocytes % (Manual) 9.0 H Basophils % (Manual) 2.0 H Nucleated RBC % Seg Neutrophils # Seg Neutrophils # Man Lymphocytes # (Manual) 1.0 L Monocytes # (Manual) Basophils # (Manual) 0.2 H PT INR APTT ABG pH POC ABG pCO2 POC ABG pO2 ABG Hemoglobin ABG Oxyhemoglobin ABG Sodium ABG Potassium ABG Chloride ABG Glucose Sodium 127 L Potassium Chloride Carbon Dioxide 20 L BUN 23 H Creatinine Glucose POC Glucose 108 H Lactic Acid Calcium Iron Ammonia CK-MB (CK-2) CK-MB (CK-2) Rel Index Total Protein Albumin Arterial Blood Glucose Urine Creatinine Urine Total Protein Salicylates Acetaminophen Crossmatch 10/10/20 10/11/20 10/11/20 16:51 04:56 05:51 WBC RBC Hgb 9.5 L Hct 31.3 L MCV 77 L MCH 23 L MCHC 30 L RDW 33.7 H Plt Count [place] % (Auto) [place] # (Auto) Seg Neutrophils % Seg Neuts % (Manual) 95.0 H Lymphocytes % (Manual) 2.0 L Monocytes % (Manual) Basophils % (Manual) Nucleated RBC % 3.0 H Seg Neutrophils # Seg Neutrophils # Man 8.0 H Lymphocytes # (Manual) 0.2 L Monocytes # (Manual) Basophils # (Manual) PT INR APTT ABG pH POC ABG pCO2 POC ABG pO2 ABG Hemoglobin ABG Oxyhemoglobin ABG Sodium ABG Potassium ABG Chloride ABG Glucose Sodium Potassium Chloride Carbon Dioxide BUN Creatinine Glucose POC Glucose 142 H 124 H Lactic Acid Calcium Iron Ammonia CK-MB (CK-2) CK-MB (CK-2) Rel Index Total Protein Albumin Arterial Blood Glucose Urine Creatinine Urine Total Protein Salicylates Acetaminophen Crossmatch 10/11/20 10/11/20 10/12/20 05:51 11:56 04:53 WBC RBC Hgb 9.5 L Hct 30.0 L MCV 75 L MCH 24 L MCHC RDW 32.8 H Plt Count 136 L [place] % (Auto) [place] # (Auto) Seg Neutrophils % Seg Neuts % (Manual) 89.0 H Lymphocytes % (Manual) 5.0 L Monocytes % (Manual) Basophils % (Manual) Nucleated RBC % Seg Neutrophils # Seg Neutrophils # Man Lymphocytes # (Manual) 0.4 L Monocytes # (Manual) Basophils # (Manual) PT INR APTT ABG pH POC ABG pCO2 POC ABG pO2 ABG Hemoglobin ABG Oxyhemoglobin ABG Sodium ABG Potassium ABG Chloride ABG Glucose Sodium 130 L Potassium Chloride Carbon Dioxide 18 L BUN 23 H Creatinine Glucose POC Glucose 126 H Lactic Acid Calcium Iron Ammonia CK-MB (CK-2) CK-MB (CK-2) Rel Index Total Protein Albumin Arterial Blood Glucose Urine Creatinine Urine Total Protein Salicylates Acetaminophen Crossmatch 10/12/20 10/12/20 10/12/20 04:53 11:42 23:49 WBC RBC Hgb Hct MCV MCH MCHC RDW Plt Count [place] % (Auto) [place] # (Auto) Seg Neutrophils % Seg Neuts % (Manual) Lymphocytes % (Manual) Monocytes % (Manual) Basophils % (Manual) Nucleated RBC % Seg Neutrophils # Seg Neutrophils # Man Lymphocytes # (Manual) Monocytes # (Manual) Basophils # (Manual) PT INR APTT ABG pH POC ABG pCO2 POC ABG pO2 ABG Hemoglobin ABG Oxyhemoglobin ABG Sodium ABG Potassium ABG Chloride ABG Glucose Sodium 130 L Potassium Chloride Carbon Dioxide 18 L BUN 25 H Creatinine Glucose 74 L POC Glucose 59 L 51 L Lactic Acid Calcium Iron Ammonia CK-MB (CK-2) CK-MB (CK-2) Rel Index Total Protein Albumin Arterial Blood Glucose Urine Creatinine Urine Total Protein Salicylates Acetaminophen Crossmatch 10/13/20 10/13/20 10/13/20 03:17 05:24 05:24 WBC RBC Hgb 9.4 L Hct 29.4 L MCV 75 L MCH 24 L MCHC RDW 32.9 H Plt Count 95 L [place] % (Auto) [place] # (Auto) Seg Neutrophils % Seg Neuts % (Manual) 90.0 H Lymphocytes % (Manual) Monocytes % (Manual) Basophils % (Manual) Nucleated RBC % 2.0 H Seg Neutrophils # Seg Neutrophils # Man 9.5 H Lymphocytes # (Manual) 0.0 L Monocytes # (Manual) Basophils # (Manual) PT INR APTT ABG pH POC ABG pCO2 POC ABG pO2 ABG Hemoglobin ABG Oxyhemoglobin ABG Sodium ABG Potassium ABG Chloride ABG Glucose Sodium 132 L Potassium Chloride Carbon Dioxide 17 L BUN 26 H Creatinine 1.6 H Glucose POC Glucose 67 L Lactic Acid Calcium Iron Ammonia CK-MB (CK-2) CK-MB (CK-2) Rel Index Total Protein Albumin Arterial Blood Glucose Urine Creatinine Urine Total Protein Salicylates Acetaminophen Crossmatch 10/13/20 10/14/20 10/14/20 11:36 05:04 05:04 WBC 17.4 H RBC Hgb 9.3 L Hct 29.3 L MCV 76 L MCH 24 L MCHC RDW 33.8 H Plt Count 83 L [place] % (Auto) [place] # (Auto) Seg Neutrophils % Seg Neuts % (Manual) 89.0 H Lymphocytes % (Manual) 4.0 L Monocytes % (Manual) Basophils % (Manual) Nucleated RBC % 1.0 H Seg Neutrophils # Seg Neutrophils # Man 15.5 H Lymphocytes # (Manual) 0.7 L Monocytes # (Manual) Basophils # (Manual) PT INR APTT ABG pH POC ABG pCO2 POC ABG pO2 ABG Hemoglobin ABG Oxyhemoglobin ABG Sodium ABG Potassium ABG Chloride ABG Glucose Sodium 132 L Potassium 5.3 H Chloride 108.7 H Carbon Dioxide 15 L BUN 25 H Creatinine 1.5 H Glucose POC Glucose 58 L Lactic Acid Calcium Iron Ammonia CK-MB (CK-2) CK-MB (CK-2) Rel Index Total Protein Albumin Arterial Blood Glucose Urine Creatinine Urine Total Protein Salicylates Acetaminophen Crossmatch 10/14/20 10/14/20 10/14/20 05:41 08:19 15:34 WBC RBC Hgb Hct MCV MCH MCHC RDW Plt Count [place] % (Auto) [place] # (Auto) Seg Neutrophils % Seg Neuts % (Manual) Lymphocytes % (Manual) Monocytes % (Manual) Basophils % (Manual) Nucleated RBC % Seg Neutrophils # Seg Neutrophils # Man Lymphocytes # (Manual) Monocytes # (Manual) Basophils # (Manual) PT INR APTT ABG pH POC ABG pCO2 POC ABG pO2 ABG Hemoglobin ABG Oxyhemoglobin ABG Sodium ABG Potassium ABG Chloride ABG Glucose Sodium 134 L Potassium 5.2 H Chloride 111.1 H Carbon Dioxide 16 L BUN 25 H Creatinine 1.5 H Glucose POC Glucose 58 L 120 H Lactic Acid Calcium Iron Ammonia CK-MB (CK-2) CK-MB (CK-2) Rel Index Total Protein Albumin Arterial Blood Glucose Urine Creatinine Urine Total Protein Salicylates Acetaminophen Crossmatch 10/14/20 10/15/20 10/15/20 Unknown 05:50 05:50 WBC 14.1 H RBC Hgb 9.4 L Hct 29.9 L MCV 76 L MCH 24 L MCHC 31 L RDW 34.2 H Plt Count 86 L [place] % (Auto) 8.3 H [place] # (Auto) 1.3 H Seg Neutrophils % 86.5 H Seg Neuts % (Manual) Lymphocytes % (Manual) 9.0 L Monocytes % (Manual) Basophils % (Manual) Nucleated RBC % 6.0 H Seg Neutrophils # 13.2 H Seg Neutrophils # Man 9.7 H Lymphocytes # (Manual) Monocytes # (Manual) Basophils # (Manual) PT INR APTT ABG pH POC ABG pCO2 POC ABG pO2 ABG Hemoglobin ABG Oxyhemoglobin ABG Sodium ABG Potassium ABG Chloride ABG Glucose Sodium 134 L Potassium Chloride 109.9 H Carbon Dioxide 18 L BUN 26 H Creatinine 1.5 H Glucose 125 H POC Glucose Lactic Acid Calcium Iron Ammonia CK-MB (CK-2) CK-MB (CK-2) Rel Index Total Protein Albumin Arterial Blood Glucose Urine Creatinine 144.2 H Urine Total Protein 97 H Salicylates Acetaminophen Crossmatch 10/15/20 10/15/20 10/15/20 05:55 07:36 07:59 WBC RBC Hgb Hct MCV MCH MCHC RDW Plt Count [place] % (Auto) [place] # (Auto) Seg Neutrophils % Seg Neuts % (Manual) Lymphocytes % (Manual) Monocytes % (Manual) Basophils % (Manual) Nucleated RBC % Seg Neutrophils # Seg Neutrophils # Man Lymphocytes # (Manual) Monocytes # (Manual) Basophils # (Manual) PT INR APTT ABG pH 7.052 L POC ABG pCO2 65.0 H POC ABG pO2 214.1 H ABG Hemoglobin 10.6 L ABG Oxyhemoglobin 98.3 H ABG Sodium 130.6 L ABG Potassium ABG Chloride 110.0 H ABG Glucose 124 H Sodium Potassium Chloride Carbon Dioxide BUN Creatinine Glucose POC Glucose 113 H 114 H Lactic Acid Calcium Iron Ammonia CK-MB (CK-2) CK-MB (CK-2) Rel Index Total Protein Albumin Arterial Blood Glucose 124 H Urine Creatinine Urine Total Protein Salicylates Acetaminophen Crossmatch 10/15/20 10/15/20 10/15/20 10:50 11:27 13:56 WBC RBC Hgb Hct MCV MCH MCHC RDW Plt Count [place] % (Auto) [place] # (Auto) Seg Neutrophils % Seg Neuts % (Manual) Lymphocytes % (Manual) Monocytes % (Manual) Basophils % (Manual) Nucleated RBC % Seg Neutrophils # Seg Neutrophils # Man Lymphocytes # (Manual) Monocytes # (Manual) Basophils # (Manual) PT INR APTT ABG pH 7.200 L POC ABG pCO2 POC ABG pO2 123.1 H ABG Hemoglobin ABG Oxyhemoglobin ABG Sodium 131.3 L ABG Potassium 4.6 H ABG Chloride 112.0 H ABG Glucose 42 L Sodium Potassium Chloride Carbon Dioxide BUN Creatinine Glucose POC Glucose 50 L 476 H Lactic Acid Calcium Iron Ammonia CK-MB (CK-2) CK-MB (CK-2) Rel Index Total Protein Albumin Arterial Blood Glucose 42 L Urine Creatinine Urine Total Protein Salicylates Acetaminophen Crossmatch 10/15/20 10/15/20 10/16/20 16:46 17:01 00:45 WBC RBC Hgb Hct MCV MCH MCHC RDW Plt Count [place] % (Auto) [place] # (Auto) Seg Neutrophils % Seg Neuts % (Manual) Lymphocytes % (Manual) Monocytes % (Manual) Basophils % (Manual) Nucleated RBC % Seg Neutrophils # Seg Neutrophils # Man Lymphocytes # (Manual) Monocytes # (Manual) Basophils # (Manual) PT INR APTT ABG pH 7.250 L POC ABG pCO2 POC ABG pO2 49.8 L ABG Hemoglobin 9.3 L ABG Oxyhemoglobin 83.0 L ABG Sodium 130.2 L ABG Potassium ABG Chloride 111.0 H ABG Glucose Sodium 135 L Potassium Chloride Carbon Dioxide BUN Creatinine Glucose POC Glucose 67 L Lactic Acid Calcium Iron Ammonia CK-MB (CK-2) CK-MB (CK-2) Rel Index Total Protein Albumin Arterial Blood Glucose Urine Creatinine Urine Total Protein Salicylates Acetaminophen Crossmatch 10/16/20 10/16/20 10/16/20 05:36 05:53 05:53 WBC 16.6 H RBC 3.52 L Hgb 8.3 L Hct 26.6 L MCV 75 L MCH 23 L MCHC 31 L RDW 33.7 H Plt Count [place] % (Auto) [place] # (Auto) Seg Neutrophils % Seg Neuts % (Manual) Lymphocytes % (Manual) Monocytes % (Manual) Basophils % (Manual) Nucleated RBC % Seg Neutrophils # Seg Neutrophils # Man Lymphocytes # (Manual) Monocytes # (Manual) Basophils # (Manual) PT INR APTT ABG pH POC ABG pCO2 POC ABG pO2 ABG Hemoglobin ABG Oxyhemoglobin ABG Sodium ABG Potassium ABG Chloride ABG Glucose Sodium 136 L Potassium Chloride 111.9 H Carbon Dioxide 17 L BUN 29 H Creatinine 2.0 H Glucose 126 H POC Glucose 44 L Lactic Acid Calcium 8.1 L Iron Ammonia CK-MB (CK-2) CK-MB (CK-2) Rel Index Total Protein Albumin Arterial Blood Glucose Urine Creatinine Urine Total Protein Salicylates Acetaminophen Crossmatch 10/16/20 10/16/20 10/16/20 05:53 07:26 08:07 WBC RBC Hgb Hct MCV MCH MCHC RDW Plt Count [place] % (Auto) [place] # (Auto) Seg Neutrophils % Seg Neuts % (Manual) Lymphocytes % (Manual) Monocytes % (Manual) Basophils % (Manual) Nucleated RBC % Seg Neutrophils # Seg Neutrophils # Man Lymphocytes # (Manual) Monocytes # (Manual) Basophils # (Manual) PT 24.5 H INR 2.17 H APTT ABG pH POC ABG pCO2 POC ABG pO2 ABG Hemoglobin ABG Oxyhemoglobin ABG Sodium ABG Potassium ABG Chloride ABG Glucose Sodium Potassium Chloride Carbon Dioxide BUN Creatinine Glucose POC Glucose 58 L 51 L Lactic Acid Calcium Iron Ammonia CK-MB (CK-2) CK-MB (CK-2) Rel Index Total Protein Albumin Arterial Blood Glucose Urine Creatinine Urine Total Protein Salicylates Acetaminophen Crossmatch 10/16/20 08:52 WBC RBC Hgb Hct MCV MCH MCHC RDW Plt Count [place] % (Auto) [place] # (Auto) Seg Neutrophils % Seg Neuts % (Manual) Lymphocytes % (Manual) Monocytes % (Manual) Basophils % (Manual) Nucleated RBC % Seg Neutrophils # Seg Neutrophils # Man Lymphocytes # (Manual) Monocytes # (Manual) Basophils # (Manual) PT INR APTT ABG pH POC ABG pCO2 POC ABG pO2 ABG Hemoglobin ABG Oxyhemoglobin ABG Sodium ABG Potassium ABG Chloride ABG Glucose Sodium Potassium Chloride Carbon Dioxide BUN Creatinine Glucose POC Glucose 58 L Lactic Acid Calcium Iron Ammonia CK-MB (CK-2) CK-MB (CK-2) Rel Index Total Protein Albumin Arterial Blood Glucose Urine Creatinine Urine Total Protein Salicylates Acetaminophen Crossmatch Chest x-ray: other (none today) Allied health notes reviewed: nursing
[2020-10-16] MEDS: CEFEPIME/NS 2 GM/100 ML 2 GM/100 ML BAG IV SCH ×2 (12:04→21:19)
[2020-10-16 12:32] LABS: Albumin 2.1 g/dL (3.9-5); Bilirubin,Direct 0.2 mg/dL (0-0.2)
[2020-10-16] MEDS: VASOPRESSIN 20 UNIT in SODIUM CHLORIDE 0.9% 100 ML IV SCH ×2 (12:58→21:07)
[2020-10-16] MEDS ORDERED: SODIUM BICARB 8.4% 50 MEQ/50 ML SYRINGE IV ONE (12:58)
--- NOTE | 2020-10-16 13:36 | Gastroenterology Progress Note ---
Assessment and Plan 74 yo male admitted for encephalopathy. GI consulted for anemia. Update: developed respiratory distress on 10/15/2020 and intubated. Now in ICU. 1. Iron deficient anemia - etiology unclear. - no signs of overt GI bleeding - monitor H/H. - hold off EGD/colonoscopy given acute clinical worsening with respiratory failure. 2. Oropharyngeal dysphagia - due to encephalopathy, questions of CVA - hold off EGD/PEG given acute clinical worsening with respiratory failure. 3. Respiratory failure - intubated on 10/15/2020. - CXR with worsening opacities. - management per primary and ICU - will sign off for now. please call back when patient's more stable for endoscopy or in case of overt GI bleeding signs. Subjective Date of service: 10/16/20 Principal diagnosis: hyponatremia, encephalopathy Interval history: Patient remains intubated and sedated. Pressor with levophed increased. Rectal tube with brown liquid stools. Objective - Constitutional Vitals: Temp Pulse Resp BP Pulse Ox 97.9 F 90 25 H 103/40 91 10/16/20 12:09 10/16/20 11:56 10/16/20 04:00 10/16/20 11:56 10/16/20 11:56 General appearance: other (sedated) - Neck Neck: other (normal external appearance) - Respiratory Respiratory effort: other (intubated and on the vent) - Cardiovascular Rhythm: regular Heart Sounds: Present: S1 & S2 - Gastrointestinal General gastrointestinal: Present: soft, non-tender, non-distended - Neurologic Neurological: other (sedated) - Labs CBC & Chem 7: 10/16/20 05:53 10/16/20 05:53 Labs: Laboratory Results - last 24 hr 10/15/20 10/15/20 10/15/20 05:50 10:50 13:56 WBC RBC Hgb Hct MCV MCH MCHC RDW Plt Count 86 L [place] % (Auto) 8.3 H Eos % (Auto) 0.3 [place] # (Auto) 1.3 H Eos # (Auto) 0.0 Baso # (Auto) 0.1 Seg Neutrophils % 86.5 H Seg Neutrophils # 13.2 H PT INR ABG pH POC ABG pCO2 POC ABG pO2 POC ABG HCO3 ABG O2 Saturation Not Reportable POC ABG Base Excess ABG Hemoglobin Not Reportable ABG Oxyhemoglobin Not Reportable ABG Methemoglobin Not Reportable ABG Sodium ABG Potassium ABG Chloride ABG Glucose Carboxyhemoglobin Not Reportable FiO2 % Sodium Potassium Chloride Carbon Dioxide Anion Gap BUN Creatinine Estimated GFR BUN/Creatinine Ratio Glucose POC Glucose 476 H Calcium Total Bilirubin Direct Bilirubin Indirect Bilirubin AST ALT Alkaline Phosphatase Total Protein Albumin Albumin/Globulin Ratio Arterial Blood Glucose Arterial Blood Ionized Calcium 10/15/20 10/15/20 10/15/20 13:59 16:46 17:01 WBC RBC Hgb Hct MCV MCH MCHC RDW Plt Count [place] % (Auto) [place]os % (Auto) [place] # (Auto) Eos # (Auto) Baso # (Auto) Seg Neutrophils % Seg Neutrophils # PT INR ABG pH POC ABG pCO2 POC ABG pO2 POC ABG HCO3 ABG O2 Saturation POC ABG Base Excess ABG Hemoglobin ABG Oxyhemoglobin ABG Methemoglobin ABG Sodium ABG Potassium ABG Chloride ABG Glucose Carboxyhemoglobin FiO2 % Sodium 135 L Potassium Chloride Carbon Dioxide Anion Gap BUN Creatinine Estimated GFR BUN/Creatinine Ratio Glucose POC Glucose 85 67 L Calcium Total Bilirubin Direct Bilirubin Indirect Bilirubin AST ALT Alkaline Phosphatase Total Protein Albumin Albumin/Globulin Ratio Arterial Blood Glucose Arterial Blood Ionized Calcium 10/15/20 10/15/20 10/16/20 18:07 20:22 00:13 WBC RBC Hgb Hct MCV MCH MCHC RDW Plt Count [place] % (Auto) Eos % (Auto) [place] # (Auto) Eos # (Auto) Baso # (Auto) Seg Neutrophils % Seg Neutrophils # PT INR ABG pH POC ABG pCO2 POC ABG pO2 POC ABG HCO3 ABG O2 Saturation POC ABG Base Excess ABG Hemoglobin ABG Oxyhemoglobin ABG Methemoglobin ABG Sodium ABG Potassium ABG Chloride ABG Glucose Carboxyhemoglobin FiO2 % Sodium Potassium Chloride Carbon Dioxide Anion Gap BUN Creatinine Estimated GFR BUN/Creatinine Ratio Glucose POC Glucose 94 101 98 Calcium Total Bilirubin Direct Bilirubin Indirect Bilirubin AST ALT Alkaline Phosphatase Total Protein Albumin Albumin/Globulin Ratio Arterial Blood Glucose Arterial Blood Ionized Calcium 10/16/20 10/16/20 10/16/20 00:45 05:36 05:53 WBC 16.6 H RBC 3.52 L Hgb 8.3 L Hct 26.6 L MCV 75 L MCH 23 L MCHC 31 L RDW 33.7 H Plt Count [place] % (Auto) Eos % (Auto) [place] # (Auto) Eos # (Auto) Baso # (Auto) Seg Neutrophils % [employer] Seg Neutrophils # PT INR ABG pH 7.250 L POC ABG pCO2 40.2 POC ABG pO2 49.8 L POC ABG HCO3 17.2 ABG O2 Saturation 83.7 POC ABG Base Excess -9.3 ABG Hemoglobin 9.3 L ABG Oxyhemoglobin 83.0 L ABG Methemoglobin 0 ABG Sodium 130.2 L ABG Potassium 3.9 ABG Chloride 111.0 H ABG Glucose 69 Carboxyhemoglobin 0.8 FiO2 % 40.0 Sodium Potassium Chloride Carbon Dioxide Anion Gap BUN Creatinine Estimated GFR BUN/Creatinine Ratio Glucose POC Glucose 44 L Calcium Total Bilirubin Direct Bilirubin Indirect Bilirubin AST ALT Alkaline Phosphatase Total Protein Albumin Albumin/Globulin Ratio Arterial Blood Glucose 69 Arterial Blood Ionized Calcium 5.1 10/16/20 10/16/20 10/16/20 05:53 05:53 06:19 WBC RBC Hgb Hct MCV MCH MCHC RDW Plt Count [place] % (Auto) Eos % (Auto) [place] # (Auto) Eos # (Auto) Baso # (Auto) Seg Neutrophils % Seg Neutrophils # PT 24.5 H INR 2.17 H ABG pH POC ABG pCO2 POC ABG pO2 POC ABG HCO3 ABG O2 Saturation POC ABG Base Excess ABG Hemoglobin ABG Oxyhemoglobin ABG Methemoglobin ABG Sodium ABG Potassium ABG Chloride ABG Glucose Carboxyhemoglobin FiO2 % Sodium 136 L Potassium 4.1 Chloride 111.9 H Carbon Dioxide 17 L Anion Gap 11 BUN 29 H Creatinine 2.0 H Estimated GFR 40 BUN/Creatinine Ratio 15 Glucose 126 H POC Glucose 78 Calcium 8.1 L Total Bilirubin Direct Bilirubin Indirect Bilirubin AST ALT Alkaline Phosphatase Total Protein Albumin Albumin/Globulin Ratio Arterial Blood Glucose Arterial Blood Ionized Calcium 10/16/20 10/16/20 10/16/20 07:26 08:07 08:52 WBC RBC Hgb Hct MCV MCH MCHC RDW Plt Count [place] % (Auto) Eos % (Auto) [place] # (Auto) Eos # (Auto) Baso # (Auto) Seg Neutrophils % Seg Neutrophils # PT INR ABG pH POC ABG pCO2 POC ABG pO2 POC ABG HCO3 ABG O2 Saturation POC ABG Base Excess ABG Hemoglobin ABG Oxyhemoglobin ABG Methemoglobin ABG Sodium ABG Potassium ABG Chloride ABG Glucose Carboxyhemoglobin FiO2 % Sodium Potassium Chloride Carbon Dioxide Anion Gap BUN Creatinine Estimated GFR BUN/Creatinine Ratio Glucose POC Glucose 58 L 51 L 58 L Calcium Total Bilirubin Direct Bilirubin Indirect Bilirubin AST ALT Alkaline Phosphatase Total Protein Albumin Albumin/Globulin Ratio Arterial Blood Glucose Arterial Blood Ionized Calcium 10/16/20 10/16/20 10/16/20 10:48 11:14 11:33 WBC RBC Hgb Hct MCV MCH MCHC RDW Plt Count [place] % (Auto) Eos % (Auto) [place] # (Auto) Eos # (Auto) Baso # (Auto) Seg Neutrophils % Seg Neutrophils # PT INR ABG pH 7.044 L POC ABG pCO2 58.1 H POC ABG pO2 57.7 L POC ABG HCO3 15.5 ABG O2 Saturation 82.4 POC ABG Base Excess -14.6 ABG Hemoglobin 9.5 L ABG Oxyhemoglobin 81.5 L ABG Methemoglobin 0.1 ABG Sodium 131.7 L ABG Potassium 3.4 ABG Chloride 112.0 H ABG Glucose 59 L Carboxyhemoglobin 1.0 FiO2 % 40.0 Sodium Potassium Chloride Carbon Dioxide Anion Gap BUN Creatinine Estimated GFR BUN/Creatinine Ratio Glucose POC Glucose 70 Calcium Total Bilirubin 0.40 Direct Bilirubin 0.2 Indirect Bilirubin 0.2 AST 136 H ALT 72 H Alkaline Phosphatase 240 H Total Protein 5.1 L Albumin 2.1 L Albumin/Globulin Ratio 0.7 Arterial Blood Glucose 59 L Arterial Blood Ionized Calcium 5.3 10/16/20 10/16/20 12:32 13:11 WBC RBC Hgb Hct MCV MCH MCHC RDW Plt Count [place] % (Auto) Eos % (Auto) [place] # (Auto) Eos # (Auto) Baso # (Auto) Seg Neutrophils % Seg Neutrophils # PT INR ABG pH POC ABG pCO2 POC ABG pO2 POC ABG HCO3 ABG O2 Saturation POC ABG Base Excess ABG Hemoglobin ABG Oxyhemoglobin ABG Methemoglobin ABG Sodium ABG Potassium ABG Chloride ABG Glucose Carboxyhemoglobin FiO2 % Sodium Potassium Chloride Carbon Dioxide Anion Gap BUN Creatinine Estimated GFR BUN/Creatinine Ratio Glucose POC Glucose 27 L 54 L Calcium Total Bilirubin Direct Bilirubin Indirect Bilirubin AST ALT Alkaline Phosphatase Total Protein Albumin Albumin/Globulin Ratio Arterial Blood Glucose Arterial Blood Ionized Calcium
[2020-10-16 13:44] LABS: Anisocytosis 2+; Band Neutrophils # (Manual) 1.2 K/mm3; Total Cells Counted 100
[2020-10-16] MEDS: DEXTROSE 10% IN WATER 1,000 ML IV SCH ×2 (13:44→21:49)
[2020-10-16 13:45] LABS: Burr Cells 2+; Hypochromasia 2+; Platelet Estimate Consistent w Auto; Poikilocytosis 2+; Target Cells Rare
[2020-10-16 13:49] LABS: Platelet Count 63 K/mm3 (140-440)
--- NOTE | 2020-10-16 14:10 | Progress Note ---
Assessment and Plan Assessment and plan: This is 74-year-old male with GERD admitted with arthrosclerotic calcification, anemia and hypoglycemia. Neuro: Acute metabolic encephalopathy, significant narrowing in bilateral posterior cerebral arteries, left-sided hemiparesis with aphasia, atherosclerotic cerebrovascular disease -Avoid delirium -Patient is not sedated -Minimally interactive at this time -Intact cough/gag and pupils are very sluggish to reaction -CTA head/CTA neck completed-> see results -MRI brain completed-> see results, findings suggestive of ventriculomegaly -Thiamine and folate daily -Keppra -Seizure precautions -Neurology consulted, appreciate recommendations -EEG completed which cannot rule out acute seizure with postictal state Cardio: SB-SR, hypotension, afib/aflutter -Blood pressure support with Levophed -MAP goal greater than 65 -Added vasopressor today for persistent hypotension -Blood pressure monitoring per protocol -Patient received PICC line today -This p.m. patient was noted to be in A. fib/a flutter-> radiology consulted consulted Respiratory: Acute hypoxic respiratory failure; mixed resp and metabolic acidosis -Patient was intubated on 10/15 -VAP bundle -Current vent settings: Assist control, tidal volume 450, rate 25, PEEP of 8 on 40% FiO2 -Intubated with 7.5 OETT 24 at the lips -[facility] following -VAP bundle -10/16: CXR and ABG reviewed -Daily CXR and ABG -SBT/SAT when appropriate GI:? GIB, oropharyngeal dysphagia, severe protein-calorie malnutrition -Nutrition consult for tube feedings -GI consulted, appreciate recommendations -GI will hold off EGD/PEG given acute clinical worsening with respiratory failure -Past 24 hours net [phone] -PPI with Protonix -BR with Senokot : Hyponatremia, hyperkalemia, metabolic acidosis, acute kidney injury secondary to ATN, metabolic acidosis -Nephrology consulted, appreciate recommendations -Strict intake and output -Monitor BMP -Recheck BMP at 1999 -Hold daily Lasix in setting of hypotension -Started on D5W with 150meq of HCO3@100 for 2 liters Heme: Iron deficient anemia, leukocytosis, supratherapeutic INR -Likely secondary to malnutrition -S/p 3 units of PRBC -Iron/multivitamin supplements -GI consulted, patient recommendations -Monitor H/H -Hold off EGD/colonoscopy given acute clinical worsening with respiratory failure per GI -Trend CBC -Bilateral Doppler ultrasound pending for bilateral upper and lower extremity -Monitor INR and bleeding Endo: Persistent hypoglycemia -Patient was on D10 23 % saline at 100ml/hr switched to D10W at 125ml/hr -Accu-Cheks every 4 -Hypoglycemia protocol -Avoid hypoglycemia ID: Pulmonary infiltrate in right lung, Hypothermia -COVID-19 PCR negative -Antibiotic therapy with cefepime -Monitor CBC and temperature curve -Intermittent Joseph hugger use -TSH 2.1 The high probability of a clinically significant, sudden or life threatening deterioration of the [multi] system(s) required my full and direct attention, intervention and personal management. The aggregate critical care time was [60] minutes. This time is in addition to time spent performing reported procedures but includes the following: [x] Data Review and interpretation [x] Patient assessment and monitoring of vital signs [x] Documentation [x] Medication orders and management Disposition Plan: icu Total Time Spent with Patient (Minutes): 60 History Interval history: This is 74-year-old male with GERD who presented with AMS and left-sided weakness on 10/03 after being found incontinent in feces and urine on bed. Patient was only able to answer simple questions to the EMS. Upon presentation to the ED patient was confused. CT head showed cerebral with arthrosclerotic calcification. Work-up in the emergency department revealed anemia and hypoglycemia. Patient admitted to the hospital service for further work-up. 10/03/20: CT of the head no acute finding but showed a cerebral atrophy with suspicious atrophy and atherosclerotic calcification within the distal right middle cerebral artery. Patient also noted with hemoglobin of 5.8, received 1 unit of packed RBC and ordered for tomorrow Neuro is consulted, Covid test is negative We will check stool for occult blood MRI brain ordered we will follow Will hold any oral medicine until cleared by speech or passes the bedside swallow eval Patient noted to have severe hypoglycemic, will place on D10W Follow H&H and BMP Continue current management plan as dictated in the HPI 10/04/20: no acute findings in MRI, pending EEG, s/p 3 units PRBC transfusion. follow speech JACQUELINE rivera for now, h/h stable, GI consulted - follow recommendation. 10/05/20 Patient with acute encephalopathy, severe anemia s/p PRBC transfusion. GI following. Hgb 9.8 today. Will repeat in am. Left sided weakness. MRI negative for stroke. Neurology following. 10/06/20 Patient with encephalopathy, severe anemia s/p PRBC transfusion. Hgb 9.4 today. Patient has left sided weakness but MRI neg. Patient needs PEG tube. Will talk with family. Hypokalemia. Replace Q6h X 2. Check Mg 10/07/20 Patient with encephalopathy, severe anemia s/p PRBC transfusion. Hgb 9.6 today. Patient has left sided weakness but MRI neg. Patient needs PEG tube. Will talk with family. Hyponatremia of 128. This may be due to D10% he was on prior to NG tube. Stopped 10% Dextrose. Consulted Nephrology 10/08/20 Patient with encephalopathy, severe anemia s/p PRBC transfusion. Hgb 9.6 today. Patient has left sided weakness but MRI neg. Patient needs PEG tube. Hyponatremia worse today 126. This is due to D10% resumed last night because of hypoglycemia. I discussed with Dr. Herrera. Stop 10%Dextrose. Start D5NS Spoke to daughterCindy, yesterday and gave update. She wants PEG tube placed. Discussed plan with PAKO Chambers. He wants to do upper and lower endoscopy to evaluate anemia, before PEG tube 10/09/20 Patient with encephalopathy, severe anemia s/p PRBC transfusion. Hgb 10.3 today. Patient has left sided weakness but MRI neg. Patient needs PEG tube. Hyponatremia still present Na 126 today. This is due to D10% resumed again last night because of hypoglycemia. Nephrology had recommended D5NS but 10% Dextrose restarted overnight because of hypoglycemia. Nurses unable to place NG tube. I discussed with Dr. Otero today and he will do. Spoke to daughterCindy, yesterday and gave update. She wants PEG tube placed. Discussed plan with Dr.Chokshi GI. He wants to do upper and lower endoscopy to evaluate anemia, before PEG tube Today Na still 126. I discussed with Dr. Herrera and he recommended D10NS. I called Pharmacy. They will mix special D10NS drip. Patient had bilateral pneumonia on CXR therefore started iv Antibiotics, blood cultures. yesterday. Consulted ID 10/10/2020. Patient remains encephalopathic with hemoglobin stabilizing yesterday. Recheck H&H. Patient with left-sided weakness but MRI negative. Fluoroscopic NG tube placement completed yesterday. Await GI to perform EGD and colonoscopy. Follow-up hyponatremia with BMP results. Dr. Aldrich Spoke to daughter, Cindy Singh, and gave update. Daughter wants PEG tube placed. Continue IV antibiotics for bilateral pneumonia. ID consulted. Follow-up procalcitonin levels. 10/11/2020. Patient's hemoglobin remained stable today at 9.5. However, patient noted to be hypotensive with systolic blood pressure of 83. Patient received NS 250 cc bolus with improvement of blood pressure systolically to 123. GI plans to perform EGD/colonoscopy tomorrow. Hyponatremia improving. Start IV fluid of normal saline at 75 cc an hour x1 L 10/12/2020. Patient noted to have some gurgling of the upper airway. NG tube was placed to low intermittent suction. Check chest x-ray and KUB to rule out aspiration and/or ileus. Continue to monitor. H/H remained stable. ID stopped antibiotics due to normal procalcitonin. Speech evaluation 10/13/2020. Patient remains encephalopathic. I discussed overall mental status with the daughter yesterday and updated her with plan of care. Neurology reports: CT angio of the head that is a significant narrowing seen in both posterior cerebral arteries - and no signs of large vessel -CT of the head no acute finding but showed a cerebral atrophy with suspicious atrophy and atherosclerotic calcification within the distal right middle cerebral artery. -MRI brain without any acute findings - EEG completed yesterday remarkable for diffuse slowing 3-4 Hz and with occassional triphasic waves , no epileptiform discharges is noted -- full report to follow -Repeat MRI brain showed no acute finding Keppra was decreased to 250 mg IV twice daily and thiamine was added x3 days. No LP for now due to lack of any inflammatory findings. Repeat EEG per neurology. Sodium level has improved. Serum creatinine has increased to 1.6 today. Avoid nephrotoxic agents and monitor I/O's daily. Salt tabs 2 g 3 times daily per nephrology 10/14/2020. Patient remains encephalopathic. MRI, EEG and CT results noted above. Continue supportive care. Defer to neurology recommendations regarding mental status/encephalopathy. Continue salt tabs per nephrology. Follow-up BMP. Avoid nephrotoxic agents and monitor I/O's daily. Continue NG tube feedings. PEG placement per GI. 10/15/2020. Patient noted to have significant respiratory distress. Patient with tachypnea, some accessory muscle use, labored breathing and coarse breath sounds and sonorous respirations. Dr. Maldonado from the emergency department intubated the patient. Dr. Floyd was consulted and notified. The patient will be transferred to the ICU and continued on mechanical ventilation. Follow-up chest x-ray. 10/16: Patient is having persistent hypoglycemia despite being on D10 23% saline at 100ml/hr. given multiple amps of D50 with minimal response. The patient IV fluids changed to D5W at 125. Repeat BMP in the p.m. Hospitalist Physical - Constitutional Vitals: Temp Pulse Resp BP Pulse Ox 97.9 F 97 H 25 H 105/54 95 10/16/20 12:09 10/16/20 13:48 10/16/20 04:00 10/16/20 13:48 10/16/20 13:48 General appearance: Present: other (Not responsive to voice or touch. NG tube in place. Laying with mouth open and breathing through mouth.) - EENT Eyes: Absent: PERRL ENT: poor dentition - Neck Neck: Absent: masses or JVD, cervical LAD - Respiratory Respiratory effort: normal Respiratory: bilateral: diminished, rhonchi - Cardiovascular Rhythm: regular Heart Sounds: Present: S1 & S2. Absent: systolic murmur, diastolic murmur - Extremities Extremities: no ischemia, pulses intact, pulses symmetrical, normal temperature, normal color Extremity abnormal: edema Peripheral Pulses: within normal limits - Abdominal General gastrointestinal: soft, non-tender, non-distended, hypoactive bowel sounds - Integumentary Integumentary: Present: warm, dry - Psychiatric Psychiatric: other (not interactive) - Neurologic Neurologic: other (not interactive) - Allied Health Allied health notes reviewed: nursing, RT HEART Score - HEART Score Troponin: Troponin T < 0.010 ng/mL (0.00-0.029) 10/02/20 23:17 Results - Labs CBC & Chem 7: 10/16/20 05:53 10/16/20 05:53 Labs: Laboratory Last Values WBC 16.6 K/mm3 (4.5-11.0) H 10/16/20 05:53 RBC 3.52 M/mm3 (3.65-5.03) L 10/16/20 05:53 Hgb 8.3 gm/dl (11.8-15.2) L 10/16/20 05:53 Hct 26.6 % (35.5-45.6) L 10/16/20 05:53 MCV 75 fl (84-94) L 10/16/20 05:53 MCH 23 pg (28-32) L 10/16/20 05:53 MCHC 31 % (32-34) L 10/16/20 05:53 RDW 33.7 % (13.2-15.2) H 10/16/20 05:53 Plt Count 63 K/mm3 (140-440) L 10/16/20 05:53 Lymph % (Auto) Front End Wheel Loader Operator 10/10/20 10:58 Gillespie % (Auto) 8.3 % (0.0-7.3) H 10/15/20 05:50 Eos % (Auto) 0.3 % (0.0-4.3) 10/15/20 05:50 Baso % (Auto) Front End Wheel Loader Operator 10/10/20 10:58 Lymph # (Auto) Front End Wheel Loader Operator 10/10/20 10:58 Gillespie # (Auto) 1.3 K/mm3 (0.0-0.8) H 10/15/20 05:50 Eos # (Auto) 0.0 K/mm3 (0.0-0.4) 10/15/20 05:50 Baso # (Auto) 0.1 K/mm3 (0.0-0.1) 10/15/20 05:50 Add Manual Diff Complete 10/16/20 05:53 Total Counted 100 10/16/20 05:53 Seg Neutrophils % Front End Wheel Loader Operator 10/16/20 05:53 Seg Neuts % (Manual) 93.0 % (40.0-70.0) H 10/16/20 05:53 Band Neutrophils % 7.0 % 10/16/20 05:53 Lymphocytes % (Manual) 9.0 % (13.4-35.0) L 10/15/20 05:50 Monocytes % (Manual) 2.0 % (0.0-7.3) 10/15/20 05:50 Eosinophils % (Manual) 1.0 % (0.0-4.3) 10/13/20 05:24 Basophils % (Manual) 2.0 % (0.0-1.8) H 10/10/20 10:58 Myelocytes % 4.0 % 10/15/20 05:50 Nucleated RBC % 3.0 % (0.0-0.9) H 10/16/20 05:53 Seg Neutrophils # 13.2 K/mm3 (1.8-7.7) H 10/15/20 05:50 Seg Neutrophils # Man 15.4 K/mm3 (1.8-7.7) H 10/16/20 05:53 Band Neutrophils # 1.2 K/mm3 10/16/20 05:53 Lymphocytes # (Manual) 0.0 K/mm3 (1.2-5.4) L 10/16/20 05:53 Abs React Lymphs (Man) 0.0 K/mm3 10/16/20 05:53 Monocytes # (Manual) 0.0 K/mm3 (0.0-0.8) 10/16/20 05:53 Eosinophils # (Manual) 0.0 K/mm3 (0.0-0.4) 10/16/20 05:53 Basophils # (Manual) 0.0 K/mm3 (0.0-0.1) 10/16/20 05:53 Metamyelocytes # 0.0 K/mm3 10/16/20 05:53 Myelocytes # 0.0 K/mm3 10/16/20 05:53 Promyelocytes # 0.0 K/mm3 10/16/20 05:53 Blast Cells # 0.0 K/mm3 10/16/20 05:53 WBC Morphology Not Reportable 10/16/20 05:53 Hypersegmented Neuts Not Reportable 10/16/20 05:53 Hyposegmented Neuts Not Reportable 10/16/20 05:53 Hypogranular Neuts Not Reportable 10/16/20 05:53 Smudge Cells Not Reportable 10/16/20 05:53 Toxic Granulation Not Reportable 10/16/20 05:53 Toxic Vacuolation Not Reportable 10/16/20 05:53 Dohle Bodies Not Reportable 10/16/20 05:53 Pelger-Huet Anomaly Not Reportable 10/16/20 05:53 Andrés Rods Not Reportable 10/16/20 05:53 Platelet Estimate Consistent w auto 10/16/20 05:53 Clumped Platelets Not Reportable 10/16/20 05:53 Plt Clumps, EDTA Not Reportable 10/16/20 05:53 Large Platelets Not Reportable 10/16/20 05:53 Giant Platelets Not Reportable 10/16/20 05:53 Platelet Satelliting Not Reportable 10/16/20 05:53 Plt Morphology Comment Not Reportable 10/16/20 05:53 RBC Morphology Not Reportable 10/16/20 05:53 Dimorphic RBCs Not Reportable 10/16/20 05:53 Polychromasia Not Reportable 10/16/20 05:53 Hypochromasia 2+ 10/16/20 05:53 Poikilocytosis 2+ 10/16/20 05:53 Anisocytosis 2+ 10/16/20 05:53 Microcytosis Not Reportable 10/16/20 05:53 Macrocytosis Not Reportable 10/16/20 05:53 Spherocytes Not Reportable 10/16/20 05:53 Pappenheimer Bodies Not Reportable 10/16/20 05:53 Sickle Cells Not Reportable 10/16/20 05:53 Target Cells Rare 10/16/20 05:53 Tear Drop Cells Not Reportable 10/16/20 05:53 Ovalocytes Not Reportable 10/16/20 05:53 Helmet Cells Not Reportable 10/16/20 05:53 [place] Bodies Not Reportable 10/16/20 05:53 [place] Rings Not Reportable 10/16/20 05:53 Norbert Cells 2+ 10/16/20 05:53 Bite Cells Not Reportable 10/16/20 05:53 Crenated Cell Not Reportable 10/16/20 05:53 Elliptocytes Rare 10/16/20 05:53 Acanthocytes (Spur) Not Reportable 10/16/20 05:53 Rouleaux Not Reportable 10/16/20 05:53 Hemoglobin C Crystals Not Reportable 10/16/20 05:53 Schistocytes Not Reportable 10/16/20 05:53 Malaria parasites Not Reportable 10/16/20 05:53 Dereck Bodies Not Reportable 10/16/20 05:53 Hem Pathologist Commnt No 10/16/20 05:53 PT 24.5 Sec. (12.2-14.9) H 10/16/20 05:53 INR 2.17 (0.87-1.13) H 10/16/20 05:53 APTT 57.6 Sec. (24.2-36.6) H 10/02/20 23:17 Thrombin Time 17.8 Sec. (15.1-19.6) 10/02/20 23:17 ABG pH 7.044 (7.320-7.450) L 10/16/20 11:33 POC ABG pCO2 58.1 mmHg (32.0-48.0) H 10/16/20 11:33 POC ABG pO2 57.7 mmHg (83-108) L 10/16/20 11:33 POC ABG HCO3 15.5 10/16/20 11:33 ABG O2 Saturation 82.4 (0-100) 10/16/20 11:33 POC ABG Base Excess -14.6 10/16/20 11:33 ABG Hemoglobin 9.5 (12.0-17.5) L 10/16/20 11:33 ABG Oxyhemoglobin 81.5 (94-98) L 10/16/20 11:33 ABG Methemoglobin 0.1 (0.0-1.5) 10/16/20 11:33 ABG Sodium 131.7 mmol/L (136.0-145.0) L 10/16/20 11:33 ABG Potassium 3.4 mmol/L (3.40-4.50) 10/16/20 11:33 ABG Chloride 112.0 mmol/L (98-107) H 10/16/20 11:33 ABG Glucose 59 mg/dL (65-95) L 10/16/20 11:33 Carboxyhemoglobin 1.0 (0.5-1.5) 10/16/20 11:33 FiO2 % 40.0 10/16/20 11:33 Sodium 136 mmol/L (137-145) L 10/16/20 05:53 Potassium 4.1 mmol/L (3.6-5.0) 10/16/20 05:53 Chloride 111.9 mmol/L (98-107) H 10/16/20 05:53 Carbon Dioxide 17 mmol/L (22-30) L 10/16/20 05:53 Anion Gap 11 mmol/L 10/16/20 05:53 BUN 29 mg/dL (9-20) H 10/16/20 05:53 Creatinine 2.0 mg/dL (0.8-1.3) H 10/16/20 05:53 Estimated GFR 40 ml/min 10/16/20 05:53 BUN/Creatinine Ratio 15 % 10/16/20 05:53 Glucose 126 mg/dL (75-100) H 10/16/20 05:53 POC Glucose 69 mg/dL (70-105) L 10/16/20 13:40 Hemoglobin A1c 5.2 % (4-6) 10/03/20 05:57 Osmolality 267 Mosm/kg 10/07/20 13:54 Lactic Acid 1.50 mmol/L (0.7-2.0) 10/03/20 04:43 Calcium 8.1 mg/dL (8.4-10.2) L 10/16/20 05:53 Phosphorus 3.00 mg/dL (2.5-4.5) 10/06/20 05:07 Magnesium 1.90 mg/dL (1.7-2.3) 10/06/20 05:07 Iron 42 ug/dL (49-181) L 10/03/20 05:57 TIBC 305 mcg/dL (250-450) 10/03/20 05:57 Total Bilirubin 0.40 mg/dL (0.1-1.2) 10/16/20 11:14 Direct Bilirubin 0.2 mg/dL (0-0.2) 10/16/20 11:14 Indirect Bilirubin 0.2 mg/dL 10/16/20 11:14 AST 136 units/L (5-40) H 10/16/20 11:14 ALT 72 units/L (7-56) H 10/16/20 11:14 Alkaline Phosphatase 240 units/L (35-129) H 10/16/20 11:14 Ammonia 22.0 umol/L (25-60) L 10/02/20 23:17 Total Creatine Kinase 88 units/L (55-170) 10/02/20 23:17 CK-MB (CK-2) 7.5 ng/mL (0.0-4.0) H 10/02/20 23:17 CK-MB (CK-2) Rel Index 8.5 (0-4) H 10/02/20 23:17 Troponin T < 0.010 ng/mL (0.00-0.029) 10/02/20 23:17 Total Protein 5.1 g/dL (6.3-8.2) L 10/16/20 11:14 Albumin 2.1 g/dL (3.9-5) L 10/16/20 11:14 Albumin/Globulin Ratio 0.7 % 10/16/20 11:14 Procalcitonin 0.10 ng/mL (<0.15) 10/10/20 10:58 TSH 2.130 mlU/mL (0.270-4.200) 10/07/20 13:54 Total Cortisol 17.4 mcg/dL () 10/09/20 02:46 Arterial Blood Glucose 59 mg/dL (65-95) L 10/16/20 11:33 Arterial Blood Ionized Calcium 5.3 mg/dL (4.6-5.3) 10/16/20 11:33 Urine Eosinophils None seen (None Seen) 10/14/20 Unknown Urine Osmolality 223 Mosm/kg 10/07/20 Unknown Urine Creatinine 144.2 mg/dL (0.1-20.0) H 10/14/20 Unknown Protein/Creatinin Ratio 0.67 10/14/20 Unknown Urine Sodium 10 mmol/L 10/14/20 Unknown Urine Total Protein 97 mg/dL (5-11.8) H 10/14/20 Unknown Salicylates < 0.3 mg/dL (2.8-20.0) L 10/02/20 23:17 Acetaminophen 5.0 ug/mL (10.0-30.0) L 10/02/20 23:17 Plasma/Serum Alcohol < 0.01 % (0-0.07) 10/02/20 23:17 Coronavirus (PCR) Negative (Negative) 10/14/20 08:00 Blood Type O POSITIVE 10/03/20 05:57 Antibody Screen Negative 10/03/20 05:57 Crossmatch See Detail 10/03/20 05:57 Microbiology: Microbiology 10/15/20 Unknown Tracheal Aspirate Sputum Culture - Preliminary Jackson/IV: Voiding Method Condom Catheter Active Medications - Current Medications Current Medications: Generic Name Dose Route Start Last Admin Trade Name Freq PRN Reason Stop Dose Admin Acetaminophen 650 mg 10/03/20 02:10 10/06/20 15:28 Acetaminophen 325 Mg Tab PO 650 mg Q4H PRN Administration Pain MILD(1-3)/Fever >100.5/ROMERO Al Hydrox/Mg Hydrox/Simethicone 30 ml 10/03/20 02:10 Alum-Mag Hydroxide-Simethicone [phone]/5ml Oral Liqd 30 Ml PO Q4H PRN Indigestion Lipase/Protease/Amylase 1 each 10/03/20 16:51 Lipase 10,500/Protease 25,000/Amylase 43,750 (Units) Dr Cap FEEDTUBE PRN PRN For Clogged Feeding Tube Dextrose 0 ml 10/02/20 22:49 10/16/20 12:46 Dextrose 50% In Water (25gm) 50 Ml Syringe IV 50 ml Q30MIN PRN Administration Hypoglycemia Protocol Dextrose 50 ml 10/16/20 12:42 10/16/20 13:45 Dextrose 50% In Water (25gm) 50 Ml Syringe IV 50 ml Q30MIN PRN Administration Hypoglycemia Protocol Ferrous Sulfate 308 mg 10/16/20 10:00 10/16/20 09:28 Ferrous Sulfate 308 Mg (62mg Elemental Iron) / 7 Ml Elixir FEEDTUBE 308 mg DAILY JOSE Administration Folic Acid 1 mg 10/03/20 10:00 10/16/20 09:28 Folic Acid 1 Mg Tab PO 1 mg QDAY JOSE Administration Furosemide 40 mg 10/16/20 10:00 10/16/20 09:28 Furosemide 40 Mg/4 Ml Inj IV 40 mg QDAY JOSE Administration Levetiracetam 250 mg/ Dextrose 102.5 mls @ 400 mls/hr 10/10/20 22:00 10/16/20 09:28 IV 400 mls/hr Q12HR JOSE Administration Norepinephrine 4 mg in 250 mls @ 7.5 mls/hr 10/15/20 13:00 10/16/20 13:44 Levophed Drip 4 Mg/Ns 250 Ml IV 30 mcg/min TITR JOSE 112.5 mls/hr Administration Protocol 2 MCG/MIN Cefepime HCl 2 gm in 100 mls @ 200 mls/hr 10/16/20 10:00 10/16/20 12:04 Cefepime/Ns 2 Gm/100 Ml IV 10/23/20 09:59 200 mls/hr Q12H JOSE Administration Protocol Vasopressin 20 unit/ Sodium 101 mls @ 9.09 mls/hr 10/16/20 13:00 10/16/20 12 :58 Chloride IV 0.03 units/min TITR JOSE 9.09 mls/hr Administration Protocol 0.03 UNITS/MIN Dextrose 1,000 mls @ 125 mls/hr 10/16/20 13:00 10/16/20 13:44 D10w IV 125 mls/hr DIRECT JOSE Administration Magnesium Hydroxide 30 ml 10/03/20 02:10 Magnesium Hydroxide (Mom) Oral Liqd Udc PO Q4H PRN Constipation Metoclopramide HCl 10 mg 10/03/20 02:10 Metoclopramide 10 Mg/2 Ml Inj IV Q6H PRN Nausea And Vomiting Ondansetron HCl 4 mg 10/03/20 02:10 10/07/20 23:19 Ondansetron 4 Mg/2 Ml Inj IV 4 mg Q8H PRN Administration Nausea And Vomiting Oxycodone/Acetaminophen 1 tab 10/03/20 02:10 Oxycodone /Acetaminophen 5-325mg Tab PO Q6H PRN Pain, Moderate (4-6) Pantoprazole Sodium 40 mg 10/04/20 15:00 10/16/20 09:28 Pantoprazole 40 Mg Inj IV 40 mg QDAY JOSE Administration Promethazine HCl 25 mg 10/03/20 02:10 Promethazine 25 Mg Rect Supp MO Q6H PRN N/V IF NPO AND NO IV ACCESS Senna 8.6 mg 10/03/20 02:10 Sennosides 8.6 Mg Tab PO Q12HR PRN Constipation Simple Syrup 15 ml 10/03/20 16:51 10/16/20 06:28 Simple Syrup 15 Ml FEEDTUBE 15 ml PRN PRN Administration Hypoglycemia Simple Syrup 30 ml 10/03/20 16:51 10/16/20 13:15 Simple Syrup 15 Ml FEEDTUBE 30 ml PRN PRN Administration Hypoglycemia Sodium Bicarbonate 325 mg 10/03/20 16:51 Sodium Bicarbonate 325 Mg Tab FEEDTUBE PRN PRN For Clogged Feeding Tube Nutrition/Malnutrition Assess - Dietary Evaluation Nutrition/Malnutrition Findings: Nutrition Notes Start: 10/03/20 08:51 Freq: Status: Active Protocol: Document 10/16/20 10:01 CW (Rec: 10/16/20 10:08 CW [email or web address]) Nutrition Notes Initial or Follow up Reassessment Current Diagnosis Diabetes Other Pertinent Diagnosis AMS, hypothermia, pneu, anemia , atherosclerotic cerebrovascular disease Current Diet Nepro at 40 ml/hr Labs/Tests Na 136 BUN 29 Cr 2 BG 126 Pertinent Medications Lasix folic acid Height 5 ft 10 in Weight 92.1 kg [place] Body Weight (kg) 75.45 BMI 29.1 Weight change and time frame wt change anticpated related to fluid Weight Status Overweight Subjective/Other Information PEGF placement on hold via GI. Per notes TF was running at goal then held d/t suspected aspiration. Percent of energy/protein needs met: 0%/0% Burn Absent Trauma Absent Difficulty In Swallowing Current % PO Negligible Minimum of two criteria No Fluid Accumulation Moderate to Severe (severe) #1 Nutrition Diagnosis Swallowing difficulty Diagnosis Progress(for reassessment Continues documentation) Is patient on ventilator? No Is Patient Ambulatory and/or Out of Bed No REE-([facility]-confined to bed) 1993.892 Kcal/Kg value to use for calculation 20 Approximate Energy Requirements Using 1842 kcal/Kg Calculation Used for Recommendations Kcal/kg Additional Notes Protein: (1-1.2g/kg) 84-101g Fluid: 1 ml/kcal Nutrition Intervention Change Diet Order: restart TF when medically feasible Nutrition Support: Nepro at 40ml/hour For hyponatremia flush 75 ml q4h, once resolved resume flush at 170 ml q4h Kcal 1,728 Fluid (mL) 698 Goal #1 Meet at least 75% of protein and energy needs via TF Anticipated Discharge Needs: continue TF regimen Follow-Up By: 10/18/20 Additional Comments F/U TF restart/ POC
--- NOTE | 2020-10-16 15:11 | Progress Note ---
Assessment and Plan Assessment: Acute encephalopathy Hyponatremia BETSY possibly 2/2 prerenal/ATN Respiratory acidosis with Non Anion Gap Metabolic Acidosis Hypothermia Pulmonary infiltrate in right lung on CXR Atherosclerotic cerebrovascular disease Severe anemia -possible GI bleed Left sided hemiparesis with aphasia Acute respiratory distress- now intubated Plan: Labs reviewed, most recent serum Na level was 136 today, yesterday's serum Na level was 135 D/C sodium chloride tablet 2 g po TID On Lasix 40 mg IV daily for now, will adjust as needed, may need to increase lasix to 40 mg IV BID Goal sodium correction of < 8 mmol/l within 24 hrs to try to minimize risk of ODS Renal function with slight improvement, SCr level was 2.0 today, yesterday's SCr level was 1.5 On levophed and vasopressin drips On D10 infusion for hypoglycemia S/p sodium bicarbonate supplementation for metabolic acidosis Calculated protein to cr ratio 0.6 g, no urine eosinophils Renally dose meds Monitor I/O's daily Jackson Catheter: No (Condom Catheter) Intake= 3276 ml Output= 600 ml (Net= 2676 ml) Renal plan reviewed by Dr Cam Subjective Principal diagnosis: hyponatremia, encephalopathy Interval history: Pt seen intubated in ICU, on levophed and vasopressin drips Objective - Vital Signs Vital signs: Vital Signs - 12hr 10/16/20 10/16/20 10/16/20 03:25 03:42 04:00 Temperature 95.4 F L Pulse Rate 102 H 82 Pulse Rate [ 83 From Monitor] Respiratory 25 H Rate Blood Pressure 98/64 O2 Sat by Pulse 98 100 Oximetry 10/16/20 10/16/20 10/16/20 07:15 08:13 11:56 Temperature 98.5 F Pulse Rate 104 H 90 Pulse Rate [ From Monitor] Respiratory Rate Blood Pressure 79/50 103/40 O2 Sat by Pulse 98 91 Oximetry 10/16/20 10/16/20 12:09 13:48 Temperature 97.9 F Pulse Rate 97 H Pulse Rate [ From Monitor] Respiratory Rate Blood Pressure 105/54 O2 Sat by Pulse 95 Oximetry - General Appearance General appearance: intubated EENT: ATNC Respiratory: Present: Decreased Breath Sounds Cardiology: regular, S1S2 Gastrointestinal: normoactive bowel sounds, other (: Scrotal edema) Integumentary: warm and dry Neurologic: other (intubated) Musculoskeletal: other (2+ edema to BLE) Psychiatric: other (unable to assess) - Lab 10/16/20 05:53 10/16/20 05:53 Most recent lab results ABG pH 7.044 (7.320-7.450) L 10/16/20 11:33 ABG O2 Saturation 82.4 (0-100) 10/16/20 11:33 Calcium 8.1 mg/dL (8.4-10.2) L 10/16/20 05:53 Phosphorus 3.00 mg/dL (2.5-4.5) 10/06/20 05:07 Magnesium 1.90 mg/dL (1.7-2.3) 10/06/20 05:07 Urine Creatinine 144.2 mg/dL (0.1-20.0) H 10/14/20 Unknown Urine Sodium 10 mmol/L 10/14/20 Unknown Urine Total Protein 97 mg/dL (5-11.8) H 10/14/20 Unknown Medications & Allergies - Medications Allergies/Adverse Reactions: Allergies No Known Allergies Allergy (Unverified 10/03/20 12:27) Home Medications: Home Medications Medication Instructions Recorded Confirmed Last Taken Type Unobtainable 10/10/20 10/10/20 Unknown History Active Medications: Generic Name Dose Route Start Last Admin Trade Name Freq PRN Reason Stop Dose Admin Acetaminophen 650 mg 10/03/20 02:10 10/06/20 15:28 Acetaminophen 325 Mg Tab PO 650 mg Q4H PRN Administration Pain MILD(1-3)/Fever >100.5/ROMERO Al Hydrox/Mg Hydrox/Simethicone 30 ml 10/03/20 02:10 Alum-Mag Hydroxide-Simethicone [phone]/5ml Oral Liqd 30 Ml PO Q4H PRN Indigestion Lipase/Protease/Amylase 1 each 10/03/20 16:51 Lipase 10,500/Protease 25,000/Amylase 43,750 (Units) Dr Reis FEEDTUBE PRN PRN For Clogged Feeding Tube Dextrose 0 ml 10/02/20 22:49 10/16/20 12:46 Dextrose 50% In Water (25gm) 50 Ml Syringe IV 50 ml Q30MIN PRN Administration Hypoglycemia Protocol Dextrose 50 ml 10/16/20 12:42 10/16/20 13:45 Dextrose 50% In Water (25gm) 50 Ml Syringe IV 50 ml Q30MIN PRN Administration Hypoglycemia Protocol Ferrous Sulfate 308 mg 10/16/20 10:00 10/16/20 09:28 Ferrous Sulfate 308 Mg (62mg Elemental Iron) / 7 Ml Elixir FEEDTUBE 308 mg DAILY JOSE Administration Folic Acid 1 mg 10/03/20 10:00 10/16/20 09:28 Folic Acid 1 Mg Tab PO 1 mg QDAY JOSE Administration Furosemide 40 mg 10/16/20 10:00 10/16/20 09:28 Furosemide 40 Mg/4 Ml Inj IV 40 mg QDAY JOSE Administration Levetiracetam 250 mg/ Dextrose 102.5 mls @ 400 mls/hr 10/10/20 22:00 10/16/20 09:28 IV 400 mls/hr Q12HR JOSE Administration Norepinephrine 4 mg in 250 mls @ 7.5 mls/hr 10/15/20 13:00 10/16/20 13:44 Levophed Drip 4 Mg/Ns 250 Ml IV 30 mcg/min TITR JOSE 112.5 mls/hr Administration Protocol 2 MCG/MIN Cefepime HCl 2 gm in 100 mls @ 200 mls/hr 10/16/20 10:00 10/16/20 12:04 Cefepime/Ns 2 Gm/100 Ml IV 10/23/20 09:59 200 mls/hr Q12H JOSE Administration Protocol Vasopressin 20 unit/ Sodium 101 mls @ 9.09 mls/hr 10/16/20 13:00 10/16/20 12:58 Chloride IV 0.03 units/min TITR JOSE 9.09 mls/hr Administration Protocol 0.03 UNITS/MIN Dextrose 1,000 mls @ 125 mls/hr 10/16/20 13:00 10/16/20 13:44 D10w IV 125 mls/hr DIRECT JOSE Administration Sodium Bicarbonate 150 meq/ 1,150 mls @ 100 mls/hr 10/16/20 15:00 Dextrose IV 10/19/20 02:29 DIRECT JOSE Magnesium Hydroxide 30 ml 10/03/20 02:10 Magnesium Hydroxide (Mom) Oral Liqd Udc PO Q4H PRN Constipation Metoclopramide HCl 10 mg 10/03/20 02:10 Metoclopramide 10 Mg/2 Ml Inj IV Q6H PRN Nausea And Vomiting Ondansetron HCl 4 mg 10/03/20 02:10 10/07/20 23:19 Ondansetron 4 Mg/2 Ml Inj IV 4 mg Q8H PRN Administration Nausea And Vomiting Oxycodone/Acetaminophen 1 tab 10/03/20 02:10 Oxycodone /Acetaminophen 5-325mg Tab PO Q6H PRN Pain, Moderate (4-6) Pantoprazole Sodium 40 mg 10/04/20 15:00 10/16/20 09:28 Pantoprazole 40 Mg Inj IV 40 mg QDAY JOSE Administration Promethazine HCl 25 mg 10/03/20 02:10 Promethazine 25 Mg Rect Supp [place] Q6H PRN N/V IF NPO AND NO IV ACCESS Senna 8.6 mg 10/03/20 02:10 Sennosides 8.6 Mg Tab PO Q12HR PRN Constipation Simple Syrup 15 ml 10/03/20 16:51 10/16/20 06:28 Simple Syrup 15 Ml FEEDTUBE 15 ml PRN PRN Administration Hypoglycemia Simple Syrup 30 ml 10/03/20 16:51 10/16/20 13:15 Simple Syrup 15 Ml FEEDTUBE 30 ml PRN PRN Administration Hypoglycemia Sodium Bicarbonate 325 mg 10/03/20 16:51 Sodium Bicarbonate 325 Mg Tab FEEDTUBE PRN PRN For Clogged Feeding Tube
[2020-10-16] MEDS: SODIUM BICARBONATE 150 MEQ in DEXTROSE 5% IN WATER 1,000 ML IV SCH (15:17)
[2020-10-16] MEDS: PHENYLEPHRINE 100 MG in SODIUM CHLORIDE 0.9% 90 ML IV SCH ×2 (17:35→21:04)
--- NOTE | 2020-10-16 18:18 | Event Note ---
Date: 10/16/20 [facility] Consulted for evaluation and management of AF/Flutter. ECG reveals sinus tachycardia with PACs. Review of telemetry reveals primarily sinus rhythm with frequent PACs. Was in sinus rikki in the 45-50s yesterday. In SR in the 80-100s for the majority of the day today, with brief intermittent episodes of sinus tachycardia in the 150-160s. May be having very short runs of PAF. Recommend repeat 12-lead ECG. Etiology of tachycardia is multifactorial (hypoxemia, severe anemia/thrombocytopenia, hypoglycemia, etc). Given pt's hemodynamic instability (currently requiring multiple vasopressors), unable to start BB or non- dihydropyridine CCB. If rate sustains > 130bpm, may initiate IV Amiodarone gtt, though would do so cautiously given compromised respiratory status and elevated LFTs. At this time, tachycardia appears to be transient. Would not recommend anticoagulation currently given low AF burden and also in light of anemia/thrombocytopenia. INR noted to be 2.16 upon last draw. Recent echo findings reviewed - EF 25-30%, impaired LV relaxation, RV severely dilated, RV moderately hypokinetic, LA mildly dilated, RA severely dilated, RVSP 26mmHg, moderate-severe TR, moderate MR. Case d/w Caridad MAHAJAN. Full consult to follow. RAFAEL WOOD NP / SHARMAINE RUFFIN MD
[2020-10-16] MEDS ORDERED: METOPROLOL TARTRATE 5 MG/5 ML INJ IV ONE ×2 (18:27→19:00)
[2020-10-16] MEDS ORDERED: EPINEPHrine 1 MG/1 ML 16 MG in SODIUM CHLORIDE 0.9% 250ML 234 ML IV SCH ×2 (19:00→23:45)
--- NOTE | 2020-10-16 19:08 | Event Note ---
Date: 10/16/20 Patient is hypotensive with map in 50s with vaso/levo and phenylepi gtt maxed with liable HR. HR increased to 160-170s then decreases to 90-low 100s by self. 2.5 metoprolol IVP given x1 but HR response was liable and not sustained for 30 seconds. Cardio consulted and recommended amio which was communicated to CCM. Amio gtt at 0.5 with no bolus per cardiology recommendations. Albumin and Dobutamine ordered. RN updated family and recommended a visit. Dr. Floyd and Jana MAHAJAN from [facility] aware of current event. CCT 45min Not included in daily CCT
[2020-10-16] MEDS: DOBUTamine/D5W 500 MG/250 ML 500 MG/250 ML BAG IV SCH (19:29)
[2020-10-16] MEDS: AMIODARONE 900 MG in DEXTROSE 5% IN WATER 482 ML IV SCH (19:30)
[2020-10-16] MEDS ORDERED: ALBUMIN HUMAN 25% (25 GM/100 ML) INJ IV ONE (20:00)
[2020-10-16] MEDS: NORepinephrine/NS 8 MG-250 ML 8 MG/250 ML INFUS..BTL IV SCH (20:49)
[2020-10-16] MEDS ORDERED: SODIUM CHLORIDE 0.9% 1000 ML 1,000 ML ONE (22:48)
[2020-10-16] MEDS ORDERED: EPINEPHrine 1 MG/1 ML 8 MG in SODIUM CHLORIDE 0.9% 250ML 242 ML IV SCH (23:45)
[2020-10-16 23:49] LABS: Calcium 7.9 mg/dL (8.4-10.2)
[2020-10-17] MEDS: NORepinephrine/NS 8 MG-250 ML 8 MG/250 ML INFUS..BTL IV SCH ×5 (01:00→20:14)
[2020-10-17] MEDS: PHENYLEPHRINE 100 MG in SODIUM CHLORIDE 0.9% 90 ML IV SCH ×4 (01:06→18:08)
[2020-10-17] MEDS: SODIUM BICARBONATE 150 MEQ in DEXTROSE 5% IN WATER 1,000 ML IV SCH ×2 (01:08→12:16)
[2020-10-17] MEDS ORDERED: SODIUM CHLORIDE 0.9% 1000 ML 1,000 ML IV ONE (04:10)
[2020-10-17] MEDS: DEXTROSE 10% IN WATER 1,000 ML IV SCH ×4 (04:36→20:12)
[2020-10-17 05:53] LABS: Hematocrit 25.4 % (35.5-45.6); Hemoglobin 7.5 gm/dl (11.8-15.2); Mean Corpuscular HGB Conc 30 % (32-34); Mean Corpuscular Volume 79 fl (84-94); Red Blood Count 3.21 M/mm3 (3.65-5.03)
[2020-10-17 06:06] LABS: Calcium 7.8 mg/dL (8.4-10.2)
--- NOTE | 2020-10-17 08:26 | XRay Report ---
CHEST - 1 VIEW 0748 hours INDICATION: hypoxia COMPARISON: 10/15/2020 FINDINGS: Support devices: Stable support device positioning. Heart: Stable cardiomediastinal silhouette. Lungs/pleura: There is increased hazy opacity throughout both lower lung zones consistent with compl ete or near-complete bibasilar atelectasis. Mild right perihilar opacities appear stable. No large pl eural effusion or pneumothorax. Additional findings: None. IMPRESSION: Bibasilar atelectatic changes, increased since the exam 2 days ago. Signer Name: Diego Edmonds Jr, MD Signed: 10/17/2020 8:22 AM Workstation Name: [id number]
[2020-10-17] MEDS ORDERED: METOCLOPRAMIDE 10 MG/2 ML INJ IV PRN (09:00)
--- NOTE | 2020-10-17 09:53 | Progress Note ---
Assessment and Plan Assessment: Acute encephalopathy Hyponatremia Hypothermia, resolved Pulmonary infiltrate in right lung on CXR Atherosclerotic cerebrovascular disease Severe anemia -possible GI bleed Severe protein-calorie malnutrition Acute Renal Failure Hypokalemia Plan: Recent sodium level is 133, prior was 133, stable Avoid correction more than 8 mmol/l in 24 hours Serum creatinine noted to rise to 2.7 today, yesterday's was 2.6 Lasix stopped Acidosis-On Sodium bicarb drip Replete potassium as needed Avoid nephrotoxic agents Obtain daily weights Monitor I/O's daily Continue to monitor Plan of care reviewed by Dr. Cam Subjective Date of service: 10/17/20 Principal diagnosis: Ac hypoxemic resp failure; Pneumonia; BETSY; Ac. encephalopathy Interval history: Patient intubated. Nurse at bedside. Objective - Vital Signs Vital signs: Vital Signs - 12hr 10/17/20 10/17/20 10/17/20 00:00 00:24 02:42 Temperature 98.6 F Pulse Rate 86 102 H Pulse Rate [ 87 From Monitor] Respiratory 30 H Rate Blood Pressure 89/51 O2 Sat by Pulse 93 99 94 Oximetry 10/17/20 10/17/20 10/17/20 04:00 04:42 08:00 Temperature 99.4 F 99.7 F H Pulse Rate 99 H 99 H Pulse Rate [ 99 H From Monitor] Respiratory 30 H Rate Blood Pressure 102/47 O2 Sat by Pulse 93 98 Oximetry 10/17/20 08:19 Temperature Pulse Rate 107 H Pulse Rate [ From Monitor] Respiratory Rate Blood Pressure 102/66 O2 Sat by Pulse 98 Oximetry - General Appearance General appearance: sedated on ventilator, intubated EENT: ATNC Respiratory: Present: Decreased Breath Sounds, Other (intubated) Cardiology: S1S2 Gastrointestinal: normoactive bowel sounds Integumentary: warm and dry Neurologic: other (sedated and intubated) - Lab 10/17/20 04:49 10/17/20 04:49 Most recent lab results ABG pH 7.116 (7.320-7.450) L 10/17/20 04:00 ABG O2 Saturation 91.4 (0-100) 10/17/20 04:00 Calcium 7.8 mg/dL (8.4-10.2) L 10/17/20 04:49 Phosphorus 3.00 mg/dL (2.5-4.5) 10/06/20 05:07 Magnesium 1.90 mg/dL (1.7-2.3) 10/06/20 05:07 Urine Creatinine 144.2 mg/dL (0.1-20.0) H 10/14/20 Unknown Urine Sodium 10 mmol/L 10/14/20 Unknown Urine Total Protein 97 mg/dL (5-11.8) H 10/14/20 Unknown Medications & Allergies - Medications Allergies/Adverse Reactions: Allergies No Known Allergies Allergy (Unverified 10/03/20 12:27) Home Medications: Home Medications Medication Instructions Recorded Confirmed Last Taken Type Unobtainable 10/10/20 10/10/20 Unknown History Active Medications: Generic Name Dose Route Start Last Admin Trade Name Freq PRN Reason Stop Dose Admin Acetaminophen 650 mg 10/03/20 02:10 10/06/20 15:28 Acetaminophen 325 Mg Tab PO 650 mg Q4H PRN Administration Pain MILD(1-3)/Fever >100.5/ROMERO Al Hydrox/Mg Hydrox/Simethicone 30 ml 10/03/20 02:10 Alum-Mag Hydroxide-Simethicone [id number]/5ml Oral Liqd 30 Ml PO Q4H PRN Indigestion Lipase/Protease/Amylase 1 each 10/03/20 16:51 Lipase 10,500/Protease 25,000/Amylase 43,750 (Units) Dr Reis FEEDTUBE PRN PRN For Clogged Feeding Tube Dextrose 50 ml 10/16/20 12:42 10/16/20 15:17 Dextrose 50% In Water (25gm) 50 Ml Syringe IV 50 ml Q30MIN PRN Administration Hypoglycemia Protocol Ferrous Sulfate 308 mg 10/16/20 10:00 10/16/20 09:28 Ferrous Sulfate 308 Mg (62mg Elemental Iron) / 7 Ml Elixir FEEDTUBE 308 mg DAILY JOSE Administration Folic Acid 1 mg 10/03/20 10:00 10/16/20 09:28 Folic Acid 1 Mg Tab PO 1 mg QDAY JOSE Administration Levetiracetam 250 mg/ Dextrose 102.5 mls @ 400 mls/hr 10/10/20 22:00 10/16/20 21:03 IV 400 mls/hr Q12HR JOSE Administration Vasopressin 20 unit/ Sodium 101 mls @ 9.09 mls/hr 10/16/20 13:00 10/16/20 21:07 Chloride IV 0.03 units/min TITR JOSE 9.09 mls/hr Administration Protocol 0.03 UNITS/MIN Dextrose 1,000 mls @ 125 mls/hr 10/16/20 13:00 10/17/20 08:38 D10w IV 125 mls/hr DIRECT JOSE Administration Sodium Bicarbonate 150 meq/ 1,150 mls @ 100 mls/hr 10/16/20 15:00 10/17/20 01:08 Dextrose IV 10/19/20 02:29 100 mls/hr DIRECT JOSE Administration Phenylephrine HCl 100 mg/ 100 mls @ 3 mls/hr 10/16/20 18:00 10/17/20 08:32 Sodium Chloride IV 400 mcg/min TITR JOSE 24 mls/hr Administration Protocol 50 MCG/MIN NORepinephrine/NS 8 MG-250 ML 8 mg in 250 mls @ 3.75 mls/hr 10/16/20 19:00 10/17/20 08:54 Norepinephrine/Ns 8 Mg-250 Ml (Double Conc) IV 30 mcg/min TITRATE JOSE 56.25 mls/hr Administration Protocol 2 MCG/MIN Amiodarone HCl 900 mg/ 500 mls @ 16.667 mls/hr 10/16/20 20:00 10/16/20 19:30 Dextrose IV 0.5 mg/min DIRECT JOSE 16.667 mls/hr Administration Protocol 0.5 MG/MIN Dobutamine HCl/Dextrose 500 mg in 250 mls @ 6.908 mls/hr 10/16/20 19:00 21:03 Dobutrex Drip 500mg/D5w 250ml IV 5 mcg/kg/min DIRECT JOSE 13.815 mls/hr Infusion Protocol 2.5 MCG/KG/MIN Epinephrine 8 mg/ Sodium 250 mls @ 0 mls/hr 10/16/20 23:45 10/16/20 23:57 Chloride IV 1 mls/hr TITR JOSE Administration Cefepime HCl 2 gm in 100 mls @ 200 mls/hr 10/17/20 22:00 Cefepime/Ns 2 Gm/100 Ml IV 10/22/20 22:29 Q24H JOSE Protocol Magnesium Hydroxide 30 ml 10/03/20 02:10 Magnesium Hydroxide (Mom) Oral Liqd Udc PO Q4H PRN Constipation Metoclopramide HCl 5 mg 10/17/20 09:00 Metoclopramide 10 Mg/2 Ml Inj IV Q6H PRN Nausea And Vomiting Ondansetron HCl 4 mg 10/03/20 02:10 10/07/20 23:19 Ondansetron 4 Mg/2 Ml Inj IV 4 mg Q8H PRN Administration Nausea And Vomiting Pantoprazole Sodium 40 mg 10/04/20 15:00 10/16/20 09:28 Pantoprazole 40 Mg Inj IV 40 mg QDAY JOSE Administration Promethazine HCl 25 mg 10/03/20 02:10 Promethazine 25 Mg Rect Supp [place] Q6H PRN N/V IF NPO AND NO IV ACCESS Senna 8.6 mg 10/03/20 02:10 Sennosides 8.6 Mg Tab PO Q12HR PRN Constipation Simple Syrup 15 ml 10/03/20 16:51 10/16/20 18:19 Simple Syrup 15 Ml FEEDTUBE 15 ml PRN PRN Administration Hypoglycemia Simple Syrup 30 ml 10/03/20 16:51 10/16/20 22:02 Simple Syrup 15 Ml FEEDTUBE 30 ml PRN PRN Administration Hypoglycemia Sodium Bicarbonate 325 mg 10/03/20 16:51 Sodium Bicarbonate 325 Mg Tab FEEDTUBE PRN PRN For Clogged Feeding Tube
[2020-10-17] MEDS: MULTIVITAMIN / MINERAL ORAL LIQUID 15 ML PO SCH (10:24)
[2020-10-17] MEDS: FOLIC ACID 1 MG TAB PO SCH (10:25)
[2020-10-17] MEDS: PANTOPRAZOLE 40 MG INJ IV SCH (10:25)
[2020-10-17] MEDS: levETIRAcetam 250 MG in DEXTROSE 5% IN WATER 100 ML IV SCH (10:25)
[2020-10-17] MEDS: FERROUS SULFATE 308 MG (62mg Elemental Iron) / 7 ML ELIXIR FEEDTUBE SCH (10:25)
[2020-10-17] MEDS: VASOPRESSIN 20 UNIT in SODIUM CHLORIDE 0.9% 100 ML IV SCH ×2 (10:34→20:14)
--- NOTE | 2020-10-17 11:33 | Progress Note ---
Assessment and Plan Acute hypoxemic respiratory failure Bilateral pneumonia Bilateral pleural effusions Bilateral pulmonary edema Acute kidney injury Acute encephalopathy Severe protein calorie malnutrition Oropharyngeal dysphagia Anemia that is microcytic Oropharyngeal dysphagia - increased Dobutamine to 5 henrik's/kg/min - dopplers negative for VTE - wean vasopressors for MAP > 65 mmHg - repeat ABG at 9pm - cardiology evaluation ongoing - continue care as below otherwise; - VAP bundle addressed (HOB > 40 degrees) - sedation target RASS -2 to -3 acutely re: barotrauma - daily SAT's & SBT assessments as tolerated - continue glycemic control withh SSI for target BG 140-180 mg while critically ill; avoid hypoglycema - continue lung protective strategies - bronchodilators with pulmonary hygiene per RT - complete AB's per ID recommendations - avoid nephrotoxins, renally dose all medications - prn analgesia per pain score - Maintenance of sleep-wake cycle, avoid delirium - supportive transfusions for serum Hb < 7.0g/dl - G.I. & VTE prophylaxis - PT/OT/ROM exercises - continue mobility protocols for pressure ulcer prophylaxis - Monitor hemodynamics closely - continue other care per attending / other consultants - discharge planning ongoing concurrently COVID SPECIFIC INTERVENTIONS - COVID-19 test negative .... Re-evaluate in am & prn CONDITION: CRITICAL PROGNOSIS: GUARDED CODE STATUS: FULL CODE The high probability of a clinically significant, sudden or life-threatening deterioration of the [respiratory, cardiovascular, & neurologic] system(s) required my full and direct attention, intervention and personal management. The aggregate critical care time was [36] minutes without overlap. Time includes spent on; [x] Data Review and interpretation [x] Patient assessment and monitoring of vital signs [x] Documentation [x] Medication orders and management Subjective Date of service: 10/17/20 Principal diagnosis: Ac hypoxemic resp failure; Pneumonia; BETSY; Ac. encephalopathy Interval history: Patient is seen today for: Acute hypoxemic respiratory failure; Pneumonia; P leural effusions; BETSY; Acute encephalopathy; Severe protein calorie malnutrition Seen and examined at bedside; 24hour events reviewed; nursing and respiratory care staff consulted; no adverse overnight events reported to me; resting in bed; remains on MVS; hypotensive, hypoxemic and with severe mixed acidosis overnight; weaned off Epinephrine; tolerating Dobutamine at 2.5 henrik's/kg/min Objective Vital Signs - 12hr 10/17/20 10/17/20 10/17/20 00:00 00:24 02:42 Temperature 98.6 F Pulse Rate 86 102 H Pulse Rate [ 87 From Monitor] Respiratory 30 H Rate Blood Pressure 89/51 O2 Sat by Pulse 93 99 94 Oximetry 10/17/20 10/17/20 10/17/20 04:00 04:42 08:00 Temperature 99.4 F 99.7 F H Pulse Rate 99 H 99 H Pulse Rate [ 99 H From Monitor] Respiratory 30 H Rate Blood Pressure 102/47 O2 Sat by Pulse 93 98 Oximetry 10/17/20 08:19 Temperature Pulse Rate 107 H Pulse Rate [ From Monitor] Respiratory Rate Blood Pressure 102/66 O2 Sat by Pulse 98 Oximetry Constitutional: appears uncomfortable, other (elderly and chronically ill looking male with mildly increased respiratory effort at rest on MVS) Eyes: non-icteric ENT: oropharynx dry, other (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0) 10/17/20 04:00 POC ABG pO2 61.1 mmHg (83-108) L 10/17/20 04:00 POC ABG HCO3 13.1 10/17/20 04:00 ABG O2 Saturation 91.4 (0-100) 10/17/20 04:00 PT/INR, D-dimer PT 24.5 Sec. (12.2-14.9) H 10/16/20 05:53 INR 2.17 (0.87-1.13) H 10/16/20 05:53 Abnormal lab findings: Abnormal Labs 10/02/20 10/02/2010/02/21 23:17 23:17 23:17 WBC RBC 3.31 L Hgb 6.7 L Hct 21.8 L MCV 66 L MCH 20 L MCHC 31 L RDW 31.7 H Plt Count Bremer % (Auto) Bremer # (Auto) Seg Neutrophils % Seg Neuts % (Manual) 79.0 H Lymphocytes % (Manual) 11.0 L Monocytes % (Manual) 10.0 H Basophils % (Manual) Nucleated RBC % Seg Neutrophils # Seg Neutrophils # Man Lymphocytes # (Manual) 0.9 L Monocytes # (Manual) Basophils # (Manual) PT 20.8 H INR 1.74 H APTT 57.6 H ABG pH POC ABG pCO2 POC ABG pO2 ABG Hemoglobin ABG Oxyhemoglobin ABG Sodium ABG Potassium ABG Chloride ABG Glucose Sodium Potassium Chloride Carbon Dioxide BUN Creatinine Glucose 42 L POC Glucose Lactic Acid Calcium Iron AST ALT Alkaline Phosphatase Ammonia CK-MB (CK-2) 7.5 H CK-MB (CK-2) Rel Index 8.5 H Total Protein Albumin 2.9 L Arterial Blood Glucose Urine Creatinine Urine Total Protein Salicylates Acetaminophen Crossmatch 10/02/20 10/02/20 10/02/20 23:17 23:17 23:17 WBC RBC Hgb Hct MCV MCH MCHC RDW Plt Count Bremer % (Auto) Bremer # (Auto) Seg Neutrophils % Seg Neuts % (Manual) Lymphocytes % (Manual) Monocytes % (Manual) Basophils % (Manual) Nucleated RBC % Seg Neutrophils # Seg Neutrophils # Man Lymphocytes # (Manual) Monocytes # (Manual) Basophils # (Manual) PT INR APTT ABG pH POC ABG pCO2 POC ABG pO2 ABG Hemoglobin ABG Oxyhemoglobin ABG Sodium ABG Potassium ABG Chloride ABG Glucose Sodium Potassium Chloride Carbon Dioxide BUN Creatinine Glucose POC Glucose Lactic Acid 2.20 H* Calcium Iron AST ALT Alkaline Phosphatase Ammonia 22.0 L CK-MB (CK-2) CK-MB (CK-2) Rel Index Total Protein Albumin Arterial Blood Glucose Urine Creatinine Urine Total Protein Salicylates < 0.3 L Acetaminophen Crossmatch 10/02/20 10/03/20 10/03/20 23:17 05:57 05:57 WBC RBC 2.66 L Hgb 5.3 L* Hct 17.8 L* MCV 67 L MCH 20 L MCHC 30 L RDW 32.1 H Plt Count Bremer % (Auto) Bremer # (Auto) Seg Neutrophils % Seg Neuts % (Manual) Lymphocytes % (Manual) 2.0 L Monocytes % (Manual) Basophils % (Manual) Nucleated RBC % 1.0 H Seg Neutrophils # Seg Neutrophils # Man 8.6 H Lymphocytes # (Manual) 0.2 L Monocytes # (Manual) Basophils # (Manual) PT INR APTT ABG pH POC ABG pCO2 POC ABG pO2 ABG Hemoglobin ABG Oxyhemoglobin ABG Sodium ABG Potassium ABG Chloride ABG Glucose Sodium Potassium Chloride Carbon Dioxide BUN Creatinine Glucose POC Glucose Lactic Acid Calcium Iron AST ALT Alkaline Phosphatase Ammonia CK-MB (CK-2) CK-MB (CK-2) Rel Index Total Protein Albumin Arterial Blood Glucose Urine Creatinine Urine Total Protein Salicylates Acetaminophen 5.0 L Crossmatch See Detail 10/03/20 10/03/20 10/03/20 05:57 05:57 06:00 WBC RBC Hgb Hct MCV MCH MCHC RDW Plt Count Bremer % (Auto) Bremer # (Auto) Seg Neutrophils % Seg Neuts % (Manual) Lymphocytes % (Manual) Monocytes % (Manual) Basophils % (Manual) Nucleated RBC % Seg Neutrophils # Seg Neutrophils # Man Lymphocytes # (Manual) Monocytes # (Manual) Basophils # (Manual) PT INR APTT ABG pH POC ABG pCO2 POC ABG pO2 ABG Hemoglobin ABG Oxyhemoglobin ABG Sodium ABG Potassium ABG Chloride ABG Glucose Sodium Potassium Chloride Carbon Dioxide BUN Creatinine Glucose 52 L POC Glucose 31 L Lactic Acid Calcium Iron 42 L AST ALT Alkaline Phosphatase Ammonia CK-MB (CK-2) CK-MB (CK-2) Rel Index Total Protein 5.8 L Albumin 3.1 L Arterial Blood Glucose Urine Creatinine Urine Total Protein Salicylates Acetaminophen Crossmatch 10/03/20 10/03/20 10/03/20 07:34 09:43 10:57 WBC RBC Hgb Hct MCV MCH MCHC RDW Plt Count Bremer % (Auto) Bremer # (Auto) Seg Neutrophils % Seg Neuts % (Manual) Lymphocytes % (Manual) Monocytes % (Manual) Basophils % (Manual) Nucleated RBC % Seg Neutrophils # Seg Neutrophils # Man Lymphocytes # (Manual) Monocytes # (Manual) Basophils # (Manual) PT INR APTT ABG pH POC ABG pCO2 POC ABG pO2 ABG Hemoglobin ABG Oxyhemoglobin ABG Sodium ABG Potassium ABG Chloride ABG Glucose Sodium Potassium Chloride Carbon Dioxide BUN Creatinine Glucose POC Glucose 59 L 41 L 31 L Lactic Acid Calcium Iron AST ALT Alkaline Phosphatase Ammonia CK-MB (CK-2) CK-MB (CK-2) Rel Index Total Protein Albumin Arterial Blood Glucose Urine Creatinine Urine Total Protein Salicylates Acetaminophen Crossmatch 10/03/20 10/03/20 10/03/20 11:21 12:00 12:14 WBC RBC Hgb Hct MCV MCH MCHC RDW Plt Count Bremer % (Auto) Bremer # (Auto) Seg Neutrophils % Seg Neuts % (Manual) Lymphocytes % (Manual) Monocytes % (Manual) Basophils % (Manual) Nucleated RBC % Seg Neutrophils # Seg Neutrophils # Man Lymphocytes # (Manual) Monocytes # (Manual) Basophils # (Manual) PT INR APTT ABG pH POC ABG pCO2 POC ABG pO2 ABG Hemoglobin ABG Oxyhemoglobin ABG Sodium ABG Potassium ABG Chloride ABG Glucose Sodium Potassium Chloride Carbon Dioxide BUN Creatinine Glucose POC Glucose 62 L 26 L 140 H Lactic Acid Calcium Iron AST ALT Alkaline Phosphatase Ammonia CK-MB (CK-2) CK-MB (CK-2) Rel Index Total Protein Albumin Arterial Blood Glucose Urine Creatinine Urine Total Protein Salicylates Acetaminophen Crossmatch 10/03/20 10/03/20 10/03/20 13:33 14:19 14:59 WBC RBC Hgb Hct MCV MCH MCHC RDW Plt Count Bremer % (Auto) Bremer # (Auto) Seg Neutrophils % Seg Neuts % (Manual) Lymphocytes % (Manual) Monocytes % (Manual) Basophils % (Manual) Nucleated RBC % Seg Neutrophils # Seg Neutrophils # Man Lymphocytes # (Manual) Monocytes # (Manual) Basophils # (Manual) PT INR APTT ABG pH POC ABG pCO2 POC ABG pO2 ABG Hemoglobin ABG Oxyhemoglobin ABG Sodium ABG Potassium ABG Chloride ABG Glucose Sodium Potassium Chloride Carbon Dioxide BUN Creatinine Glucose POC Glucose 24 L 59 L 40 L Lactic Acid Calcium Iron AST ALT Alkaline Phosphatase Ammonia CK-MB (CK-2) CK-MB (CK-2) Rel Index Total Protein Albumin Arterial Blood Glucose Urine Creatinine Urine Total Protein Salicylates Acetaminophen Crossmatch 10/03/20 10/03/20 10/03/20 15:26 15:57 16:35 WBC RBC Hgb Hct MCV MCH MCHC RDW Plt Count Bremer % (Auto) Bremer # (Auto) Seg Neutrophils % Seg Neuts % (Manual) Lymphocytes % (Manual) Monocytes % (Manual) Basophils % (Manual) Nucleated RBC % Seg Neutrophils # Seg Neutrophils # Man Lymphocytes # (Manual) Monocytes # (Manual) Basophils # (Manual) PT INR APTT ABG pH POC ABG pCO2 POC ABG pO2 ABG Hemoglobin ABG Oxyhemoglobin ABG Sodium ABG Potassium ABG Chloride ABG Glucose Sodium Potassium Chloride Carbon Dioxide BUN Creatinine Glucose POC Glucose 54 L 45 L 42 L Lactic Acid Calcium Iron AST ALT Alkaline Phosphatase Ammonia CK-MB (CK-2) CK-MB (CK-2) Rel Index Total Protein Albumin Arterial Blood Glucose Urine Creatinine Urine Total Protein Salicylates Acetaminophen Crossmatch 10/03/20 10/03/20 10/03/20 17:16 18:37 19:56 WBC RBC Hgb Hct MCV MCH MCHC RDW Plt Count Bremer % (Auto) Bremer # (Auto) Seg Neutrophils % Seg Neuts % (Manual) Lymphocytes % (Manual) Monocytes % (Manual) Basophils % (Manual) Nucleated RBC % Seg Neutrophils # Seg Neutrophils # Man Lymphocytes # (Manual) Monocytes # (Manual) Basophils # (Manual) PT INR APTT ABG pH POC ABG pCO2 POC ABG pO2 ABG Hemoglobin ABG Oxyhemoglobin ABG Sodium ABG Potassium ABG Chloride ABG Glucose Sodium Potassium Chloride Carbon Dioxide BUN Creatinine Glucose POC Glucose 41 L 46 L 57 L Lactic Acid Calcium Iron AST ALT Alkaline Phosphatase Ammonia CK-MB (CK-2) CK-MB (CK-2) Rel Index Total Protein Albumin Arterial Blood Glucose Urine Creatinine Urine Total Protein Salicylates Acetaminophen Crossmatch 10/03/20 10/04/20 10/04/20 21:32 01:04 01:11 WBC RBC Hgb 9.6 L D Hct 28.3 L D MCV MCH MCHC RDW Plt Count Bremer % (Auto) Bremer # (Auto) Seg Neutrophils % Seg Neuts % (Manual) Lymphocytes % (Manual) Monocytes % (Manual) Basophils % (Manual) Nucleated RBC % Seg Neutrophils # Seg Neutrophils # Man Lymphocytes # (Manual) Monocytes # (Manual) Basophils # (Manual) PT INR APTT ABG pH POC ABG pCO2 POC ABG pO2 ABG Hemoglobin ABG Oxyhemoglobin ABG Sodium ABG Potassium ABG Chloride ABG Glucose Sodium Potassium Chloride Carbon Dioxide BUN Creatinine Glucose POC Glucose 65 L 51 L Lactic Acid Calcium Iron AST ALT Alkaline Phosphatase Ammonia CK-MB (CK-2) CK-MB (CK-2) Rel Index Total Protein Albumin Arterial Blood Glucose Urine Creatinine Urine Total Protein Salicylates Acetaminophen Crossmatch 10/04/20 10/04/20 10/04/20 05:59 05:59 15:10 WBC 13.4 H RBC Hgb 9.9 L 10.1 L Hct 32.0 L 31.8 L MCV 76 L MCH 24 L MCHC 31 L RDW 31.3 H Plt Count Bremer % (Auto) Bremer # (Auto) Seg Neutrophils % Seg Neuts % (Manual) 86.0 H Lymphocytes % (Manual) 6.0 L Monocytes % (Manual) 8.0 H Basophils % (Manual) Nucleated RBC % 2.0 H Seg Neutrophils # Seg Neutrophils # Man 11.5 H Lymphocytes # (Manual) 0.8 L Monocytes # (Manual) 1.1 H Basophils # (Manual) PT INR APTT ABG pH POC ABG pCO2 POC ABG pO2 ABG Hemoglobin ABG Oxyhemoglobin ABG Sodium ABG Potassium ABG Chloride ABG Glucose Sodium 136 L Potassium 3.5 L Chloride Carbon Dioxide 19 L D BUN Creatinine Glucose POC Glucose Lactic Acid Calcium Iron AST ALT Alkaline Phosphatase Ammonia CK-MB (CK-2) CK-MB (CK-2) Rel Index Total Protein Albumin 2.6 L Arterial Blood Glucose Urine Creatinine Urine Total Protein Salicylates Acetaminophen Crossmatch 10/04/20 10/04/20 10/05/20 16:28 22:33 04:43 WBC RBC Hgb 10.5 L Hct 32.5 L MCV MCH MCHC RDW Plt Count Bremer % (Auto) Bremer # (Auto) Seg Neutrophils % Seg Neuts % (Manual) Lymphocytes % (Manual) Monocytes % (Manual) Basophils % (Manual) Nucleated RBC % Seg Neutrophils # Seg Neutrophils # Man Lymphocytes # (Manual) Monocytes # (Manual) Basophils # (Manual) PT INR APTT ABG pH POC ABG pCO2 POC ABG pO2 ABG Hemoglobin ABG Oxyhemoglobin ABG Sodium ABG Potassium ABG Chloride ABG Glucose Sodium Potassium Chloride Carbon Dioxide BUN Creatinine Glucose POC Glucose 66 L 113 H Lactic Acid Calcium Iron AST ALT Alkaline Phosphatase Ammonia CK-MB (CK-2) CK-MB (CK-2) Rel Index Total Protein Albumin Arterial Blood Glucose Urine Creatinine Urine Total Protein Salicylates Acetaminophen Crossmatch 10/05/20 10/05/20 10/05/20 05:00 09:42 11:57 WBC RBC Hgb 9.8 L Hct 30.5 L MCV 74 L MCH 24 L MCHC RDW 31.6 H Plt Count Bremer % (Auto) Bremer # (Auto) Seg Neutrophils % Seg Neuts % (Manual) Lymphocytes % (Manual) Monocytes % (Manual) Basophils % (Manual) Nucleated RBC % Seg Neutrophils # Seg Neutrophils # Man Lymphocytes # (Manual) Monocytes # (Manual) Basophils # (Manual) PT INR APTT ABG pH POC ABG pCO2 POC ABG pO2 ABG Hemoglobin ABG Oxyhemoglobin ABG Sodium ABG Potassium ABG Chloride ABG Glucose Sodium 132 L Potassium 3.5 L Chloride Carbon Dioxide 19 L BUN Creatinine 0.7 L Glucose POC Glucose 129 H Lactic Acid Calcium Iron AST ALT Alkaline Phosphatase Ammonia CK-MB (CK-2) CK-MB (CK-2) Rel Index Total Protein Albumin Arterial Blood Glucose Urine Creatinine Urine Total Protein Salicylates Acetaminophen Crossmatch 10/05/20 10/05/20 10/06/20 16:47 21:51 05:07 WBC RBC Hgb 9.4 L Hct 30.1 L MCV 76 L MCH 24 L MCHC 31 L RDW 31.1 H Plt Count Bremer % (Auto) Bremer # (Auto) Seg Neutrophils % Seg Neuts % (Manual) Lymphocytes % (Manual) Monocytes % (Manual) Basophils % (Manual) Nucleated RBC % Seg Neutrophils # Seg Neutrophils # Man Lymphocytes # (Manual) Monocytes # (Manual) Basophils # (Manual) PT INR APTT ABG pH POC ABG pCO2 POC ABG pO2 ABG Hemoglobin ABG Oxyhemoglobin ABG Sodium ABG Potassium ABG Chloride ABG Glucose Sodium Potassium Chloride Carbon Dioxide BUN Creatinine Glucose POC Glucose 132 H 115 H Lactic Acid Calcium Iron AST ALT Alkaline Phosphatase Ammonia CK-MB (CK-2) CK-MB (CK-2) Rel Index Total Protein Albumin Arterial Blood Glucose Urine Creatinine Urine Total Protein Salicylates Acetaminophen Crossmatch 10/06/20 10/06/20 10/06/20 05:07 15:37 21:01 WBC RBC Hgb Hct MCV MCH MCHC RDW Plt Count Bremer % (Auto) Bremer # (Auto) Seg Neutrophils % Seg Neuts % (Manual) Lymphocytes % (Manual) Monocytes % (Manual) Basophils % (Manual) Nucleated RBC % Seg Neutrophils # Seg Neutrophils # Man Lymphocytes # (Manual) Monocytes # (Manual) Basophils # (Manual) PT INR APTT ABG pH POC ABG pCO2 POC ABG pO2 ABG Hemoglobin ABG Oxyhemoglobin ABG Sodium ABG Potassium ABG Chloride ABG Glucose Sodium 133 L Potassium 3.5 L Chloride Carbon Dioxide 21 L BUN Creatinine 0.6 L Glucose 105 H POC Glucose 136 H 108 H Lactic Acid Calcium Iron AST ALT Alkaline Phosphatase Ammonia CK-MB (CK-2) CK-MB (CK-2) Rel Index Total Protein Albumin Arterial Blood Glucose Urine Creatinine Urine Total Protein Salicylates Acetaminophen Crossmatch 10/07/20 10/07/20 10/07/20 04:52 04:52 06:07 WBC RBC Hgb 9.6 L Hct 29.4 L MCV 73 L MCH 24 L MCHC RDW 32.2 H Plt Count Bremer % (Auto) Bremer # (Auto) Seg Neutrophils % Seg Neuts % (Manual) Lymphocytes % (Manual) Monocytes % (Manual) Basophils % (Manual) Nucleated RBC % Seg Neutrophils # Seg Neutrophils # Man Lymphocytes # (Manual) Monocytes # (Manual) Basophils # (Manual) PT INR APTT ABG pH POC ABG pCO2 POC ABG pO2 ABG Hemoglobin ABG Oxyhemoglobin ABG Sodium ABG Potassium ABG Chloride ABG Glucose Sodium 128 L Potassium Chloride Carbon Dioxide 20 L BUN Creatinine 0.7 L Glucose POC Glucose 110 H Lactic Acid Calcium Iron AST ALT Alkaline Phosphatase Ammonia CK-MB (CK-2) CK-MB (CK-2) Rel Index Total Protein Albumin Arterial Blood Glucose Urine Creatinine Urine Total Protein Salicylates Acetaminophen Crossmatch 10/07/20 10/07/20 10/07/20 17:09 18:53 20:35 WBC RBC Hgb Hct MCV MCH MCHC RDW Plt Count Bremer % (Auto) Bremer # (Auto) Seg Neutrophils % Seg Neuts % (Manual) Lymphocytes % (Manual) Monocytes % (Manual) Basophils % (Manual) Nucleated RBC % Seg Neutrophils # Seg Neutrophils # Man Lymphocytes # (Manual) Monocytes # (Manual) Basophils # (Manual) PT INR APTT ABG pH POC ABG pCO2 POC ABG pO2 ABG Hemoglobin ABG Oxyhemoglobin ABG Sodium ABG Potassium ABG Chloride ABG Glucose Sodium Potassium Chloride Carbon Dioxide BUN Creatinine Glucose POC Glucose 67 L 66 L 62 L Lactic Acid Calcium Iron AST ALT Alkaline Phosphatase Ammonia CK-MB (CK-2) CK-MB (CK-2) Rel Index Total Protein Albumin Arterial Blood Glucose Urine Creatinine Urine Total Protein Salicylates Acetaminophen Crossmatch 10/07/20 10/08/20 10/08/20 21:55 05:00 05:00 WBC RBC Hgb 9.6 L Hct 29.4 L MCV 73 L MCH 24 L MCHC RDW 32.4 H Plt Count Bremer % (Auto) Bremer # (Auto) Seg Neutrophils % 80.6 H Seg Neuts % (Manual) 88.0 H Lymphocytes % (Manual) 9.0 L Monocytes % (Manual) Basophils % (Manual) Nucleated RBC % 5.0 H Seg Neutrophils # Seg Neutrophils # Man Lymphocytes # (Manual) 0.5 L Monocytes # (Manual) Basophils # (Manual) PT INR APTT ABG pH POC ABG pCO2 POC ABG pO2 ABG Hemoglobin ABG Oxyhemoglobin ABG Sodium ABG Potassium ABG Chloride ABG Glucose Sodium 126 L Potassium Chloride 96.3 L Carbon Dioxide BUN Creatinine 0.7 L Glucose POC Glucose 132 H Lactic Acid Calcium Iron AST ALT Alkaline Phosphatase Ammonia CK-MB (CK-2) CK-MB (CK-2) Rel Index Total Protein Albumin Arterial Blood Glucose Urine Creatinine Urine Total Protein Salicylates Acetaminophen Crossmatch 10/08/20 10/09/20 10/09/20 22:26 01:36 02:22 WBC RBC Hgb Hct MCV MCH MCHC RDW Plt Count Bremer % (Auto) Bremer # (Auto) Seg Neutrophils % Seg Neuts % (Manual) Lymphocytes % (Manual) Monocytes % (Manual) Basophils % (Manual) Nucleated RBC % Seg Neutrophils # Seg Neutrophils # Man Lymphocytes # (Manual) Monocytes # (Manual) Basophils # (Manual) PT INR APTT ABG pH POC ABG pCO2 POC ABG pO2 ABG Hemoglobin ABG Oxyhemoglobin ABG Sodium ABG Potassium ABG Chloride ABG Glucose Sodium Potassium Chloride Carbon Dioxide BUN Creatinine Glucose POC Glucose 63 L 62 L 151 H Lactic Acid Calcium Iron AST ALT Alkaline Phosphatase Ammonia CK-MB (CK-2) CK-MB (CK-2) Rel Index Total Protein Albumin Arterial Blood Glucose Urine Creatinine Urine Total Protein Salicylates Acetaminophen Crossmatch 10/09/20 10/09/20 10/09/20 05:07 05:42 06:32 WBC RBC Hgb 10.3 L Hct 33.8 L MCV 77 L MCH 24 L MCHC 31 L RDW 33.6 H Plt Count 137 L Bremer % (Auto) Bremer # (Auto) Seg Neutrophils % Seg Neuts % (Manual) 89.0 H Lymphocytes % (Manual) 5.0 L Monocytes % (Manual) Basophils % (Manual) Nucleated RBC % 4.0 H Seg Neutrophils # Seg Neutrophils # Man 9.4 H Lymphocytes # (Manual) 0.5 L Monocytes # (Manual) Basophils # (Manual) PT INR APTT ABG pH POC ABG pCO2 POC ABG pO2 ABG Hemoglobin ABG Oxyhemoglobin ABG Sodium ABG Potassium ABG Chloride ABG Glucose Sodium 126 L Potassium Chloride 97.8 L Carbon Dioxide 20 L BUN Creatinine Glucose 58 L POC Glucose 48 L Lactic Acid Calcium Iron AST ALT Alkaline Phosphatase Ammonia CK-MB (CK-2) CK-MB (CK-2) Rel Index Total Protein Albumin Arterial Blood Glucose Urine Creatinine Urine Total Protein Salicylates Acetaminophen Crossmatch 10/09/20 10/10/20 10/10/20 06:35 00:21 05:53 WBC RBC Hgb Hct MCV MCH MCHC RDW Plt Count Bremer % (Auto) Bremer # (Auto) Seg Neutrophils % Seg Neuts % (Manual) Lymphocytes % (Manual) Monocytes % (Manual) Basophils % (Manual) Nucleated RBC % Seg Neutrophils # Seg Neutrophils # Man Lymphocytes # (Manual) Monocytes # (Manual) Basophils # (Manual) PT INR APTT ABG pH POC ABG pCO2 POC ABG pO2 ABG Hemoglobin ABG Oxyhemoglobin ABG Sodium ABG Potassium ABG Chloride ABG Glucose Sodium Potassium Chloride Carbon Dioxide BUN Creatinine Glucose POC Glucose 106 H 153 H 34 L Lactic Acid Calcium Iron AST ALT Alkaline Phosphatase Ammonia CK-MB (CK-2) CK-MB (CK-2) Rel Index Total Protein Albumin Arterial Blood Glucose Urine Creatinine Urine Total Protein Salicylates Acetaminophen Crossmatch 10/10/20 10/10/20 10/10/20 10:58 10:58 12:39 WBC RBC Hgb 10.3 L Hct 33.9 L MCV 78 L MCH 24 L MCHC 30 L RDW 33.2 H Plt Count 135 L Bremer % (Auto) Bremer # (Auto) Seg Neutrophils % Seg Neuts % (Manual) 74.0 H Lymphocytes % (Manual) 12.0 L Monocytes % (Manual) 9.0 H Basophils % (Manual) 2.0 H Nucleated RBC % Seg Neutrophils # Seg Neutrophils # Man Lymphocytes # (Manual) 1.0 L Monocytes # (Manual) Basophils # (Manual) 0.2 H PT INR APTT ABG pH POC ABG pCO2 POC ABG pO2 ABG Hemoglobin ABG Oxyhemoglobin ABG Sodium ABG Potassium ABG Chloride ABG Glucose Sodium 127 L Potassium Chloride Carbon Dioxide 20 L BUN 23 H Creatinine Glucose POC Glucose 108 H Lactic Acid Calcium Iron AST ALT Alkaline Phosphatase Ammonia CK-MB (CK-2) CK-MB (CK-2) Rel Index Total Protein Albumin Arterial Blood Glucose Urine Creatinine Urine Total Protein Salicylates Acetaminophen Crossmatch 10/10/20 10/11/20 10/11/20 16:51 04:56 05:51 WBC RBC Hgb 9.5 L Hct 31.3 L MCV 77 L MCH 23 L MCHC 30 L RDW 33.7 H Plt Count Bremer % (Auto) Bremer # (Auto) Seg Neutrophils % Seg Neuts % (Manual) 95.0 H Lymphocytes % (Manual) 2.0 L Monocytes % (Manual) Basophils % (Manual) Nucleated RBC % 3.0 H Seg Neutrophils # Seg Neutrophils # Man 8.0 H Lymphocytes # (Manual) 0.2 L Monocytes # (Manual) Basophils # (Manual) PT INR APTT ABG pH POC ABG pCO2 POC ABG pO2 ABG Hemoglobin ABG Oxyhemoglobin ABG Sodium ABG Potassium ABG Chloride ABG Glucose Sodium Potassium Chloride Carbon Dioxide BUN Creatinine Glucose POC Glucose 142 H 124 H Lactic Acid Calcium Iron AST ALT Alkaline Phosphatase Ammonia CK-MB (CK-2) CK-MB (CK-2) Rel Index Total Protein Albumin Arterial Blood Glucose Urine Creatinine Urine Total Protein Salicylates Acetaminophen Crossmatch 10/11/20 10/11/20 10/12/20 05:51 11:56 04:53 WBC RBC Hgb 9.5 L Hct 30.0 L MCV 75 L MCH 24 L MCHC RDW 32.8 H Plt Count 136 L Bremer % (Auto) Bremer # (Auto) Seg Neutrophils % Seg Neuts % (Manual) 89.0 H Lymphocytes % (Manual) 5.0 L Monocytes % (Manual) Basophils % (Manual) Nucleated RBC % Seg Neutrophils # Seg Neutrophils # Man Lymphocytes # (Manual) 0.4 L Monocytes # (Manual) Basophils # (Manual) PT INR APTT ABG pH POC ABG pCO2 POC ABG pO2 ABG Hemoglobin ABG Oxyhemoglobin ABG Sodium ABG Potassium ABG Chloride ABG Glucose Sodium 130 L Potassium Chloride Carbon Dioxide 18 L BUN 23 H Creatinine Glucose POC Glucose 126 H Lactic Acid Calcium Iron AST ALT Alkaline Phosphatase Ammonia CK-MB (CK-2) CK-MB (CK-2) Rel Index Total Protein Albumin Arterial Blood Glucose Urine Creatinine Urine Total Protein Salicylates Acetaminophen Crossmatch 10/12/20 10/12/20 10/12/20 04:53 11:42 23:49 WBC RBC Hgb Hct MCV MCH MCHC RDW Plt Count Bremer % (Auto) Bremer # (Auto) Seg Neutrophils % Seg Neuts % (Manual) Lymphocytes % (Manual) Monocytes % (Manual) Basophils % (Manual) Nucleated RBC % Seg Neutrophils # Seg Neutrophils # Man Lymphocytes # (Manual) Monocytes # (Manual) Basophils # (Manual) PT INR APTT ABG pH POC ABG pCO2 POC ABG pO2 ABG Hemoglobin ABG Oxyhemoglobin ABG Sodium ABG Potassium ABG Chloride ABG Glucose Sodium 130 L Potassium Chloride Carbon Dioxide 18 L BUN 25 H Creatinine Glucose 74 L POC Glucose 59 L 51 L Lactic Acid Calcium Iron AST ALT Alkaline Phosphatase Ammonia CK-MB (CK-2) CK-MB (CK-2) Rel Index Total Protein Albumin Arterial Blood Glucose Urine Creatinine Urine Total Protein Salicylates Acetaminophen Crossmatch 10/13/20 10/13/20 10/13/20 03:17 05:24 05:24 WBC RBC Hgb 9.4 L Hct 29.4 L MCV 75 L MCH 24 L MCHC RDW 32.9 H Plt Count 95 L Bremer % (Auto) Bremer # (Auto) Seg Neutrophils % Seg Neuts % (Manual) 90.0 H Lymphocytes % (Manual) Monocytes % (Manual) Basophils % (Manual) Nucleated RBC % 2.0 H Seg Neutrophils # Seg Neutrophils # Man 9.5 H Lymphocytes # (Manual) 0.0 L Monocytes # (Manual) Basophils # (Manual) PT INR APTT ABG pH POC ABG pCO2 POC ABG pO2 ABG Hemoglobin ABG Oxyhemoglobin ABG Sodium ABG Potassium ABG Chloride ABG Glucose Sodium 132 L Potassium Chloride Carbon Dioxide 17 L BUN 26 H Creatinine 1.6 H Glucose POC Glucose 67 L Lactic Acid Calcium Iron AST ALT Alkaline Phosphatase Ammonia CK-MB (CK-2) CK-MB (CK-2) Rel Index Total Protein Albumin Arterial Blood Glucose Urine Creatinine Urine Total Protein Salicylates Acetaminophen Crossmatch 10/13/20 10/14/20 10/14/20 11:36 05:04 05:04 WBC 17.4 H RBC Hgb 9.3 L Hct 29.3 L MCV 76 L MCH 24 L MCHC RDW 33.8 H Plt Count 83 L Bremer % (Auto) Bremer # (Auto) Seg Neutrophils % Seg Neuts % (Manual) 89.0 H Lymphocytes % (Manual) 4.0 L Monocytes % (Manual) Basophils % (Manual) Nucleated RBC % 1.0 H Seg Neutrophils # Seg Neutrophils # Man 15.5 H Lymphocytes # (Manual) 0.7 L Monocytes # (Manual) Basophils # (Manual) PT INR APTT ABG pH POC ABG pCO2 POC ABG pO2 ABG Hemoglobin ABG Oxyhemoglobin ABG Sodium ABG Potassium ABG Chloride ABG Glucose Sodium 132 L Potassium 5.3 H Chloride 108.7 H Carbon Dioxide 15 L BUN 25 H Creatinine 1.5 H Glucose POC Glucose 58 L Lactic Acid Calcium Iron AST ALT Alkaline Phosphatase Ammonia CK-MB (CK-2) CK-MB (CK-2) Rel Index Total Protein Albumin Arterial Blood Glucose Urine Creatinine Urine Total Protein Salicylates Acetaminophen Crossmatch 10/14/20 10/14/20 10/14/20 05:41 08:19 15:34 WBC RBC Hgb Hct MCV MCH MCHC RDW Plt Count Bremer % (Auto) Bremer # (Auto) Seg Neutrophils % Seg Neuts % (Manual) Lymphocytes % (Manual) Monocytes % (Manual) Basophils % (Manual) Nucleated RBC % Seg Neutrophils # Seg Neutrophils # Man Lymphocytes # (Manual) Monocytes # (Manual) Basophils # (Manual) PT INR APTT ABG pH POC ABG pCO2 POC ABG pO2 ABG Hemoglobin ABG Oxyhemoglobin ABG Sodium ABG Potassium ABG Chloride ABG Glucose Sodium 134 L Potassium 5.2 H Chloride 111.1 H Carbon Dioxide 16 L BUN 25 H Creatinine 1.5 H Glucose POC Glucose 58 L 120 H Lactic Acid Calcium Iron AST ALT Alkaline Phosphatase Ammonia CK-MB (CK-2) CK-MB (CK-2) Rel Index Total Protein Albumin Arterial Blood Glucose Urine Creatinine Urine Total Protein Salicylates Acetaminophen Crossmatch 10/14/20 10/15/20 10/15/20 Unknown 05:50 05:50 WBC 14.1 H RBC Hgb 9.4 L Hct 29.9 L MCV 76 L MCH 24 L MCHC 31 L RDW 34.2 H Plt Count 86 L Bremer % (Auto) 8.3 H Bremer # (Auto) 1.3 H Seg Neutrophils % 86.5 H Seg Neuts % (Manual) Lymphocytes % (Manual) 9.0 L Monocytes % (Manual) Basophils % (Manual) Nucleated RBC % 6.0 H Seg Neutrophils # 13.2 H Seg Neutrophils # Man 9.7 H Lymphocytes # (Manual) Monocytes # (Manual) Basophils # (Manual) PT INR APTT ABG pH POC ABG pCO2 POC ABG pO2 ABG Hemoglobin ABG Oxyhemoglobin ABG Sodium ABG Potassium ABG Chloride ABG Glucose Sodium 134 L Potassium Chloride 109.9 H Carbon Dioxide 18 L BUN 26 H Creatinine 1.5 H Glucose 125 H POC Glucose Lactic Acid Calcium Iron AST ALT Alkaline Phosphatase Ammonia CK-MB (CK-2) CK-MB (CK-2) Rel Index Total Protein Albumin Arterial Blood Glucose Urine Creatinine 144.2 H Urine Total Protein 97 H Salicylates Acetaminophen Crossmatch 10/15/20 10/15/20 10/15/20 05:55 07:36 07:59 WBC RBC Hgb Hct MCV MCH MCHC RDW Plt Count Bremer % (Auto) Bremer # (Auto) Seg Neutrophils % Seg Neuts % (Manual) Lymphocytes % (Manual) Monocytes % (Manual) Basophils % (Manual) Nucleated RBC % Seg Neutrophils # Seg Neutrophils # Man Lymphocytes # (Manual) Monocytes # (Manual) Basophils # (Manual) PT INR APTT ABG pH 7.052 L POC ABG pCO2 65.0 H POC ABG pO2 214.1 H ABG Hemoglobin 10.6 L ABG Oxyhemoglobin 98.3 H ABG Sodium 130.6 L ABG Potassium ABG Chloride 110.0 H ABG Glucose 124 H Sodium Potassium Chloride Carbon Dioxide BUN Creatinine Glucose POC Glucose 113 H 114 H Lactic Acid Calcium Iron AST ALT Alkaline Phosphatase Ammonia CK-MB (CK-2) CK-MB (CK-2) Rel Index Total Protein Albumin Arterial Blood Glucose 124 H Urine Creatinine Urine Total Protein Salicylates Acetaminophen Crossmatch 10/15/20 10/15/20 10/15/20 10:50 11:27 13:56 WBC RBC Hgb Hct MCV MCH MCHC RDW Plt Count Bremer % (Auto) Bremer # (Auto) Seg Neutrophils % Seg Neuts % (Manual) Lymphocytes % (Manual) Monocytes % (Manual) Basophils % (Manual) Nucleated RBC % Seg Neutrophils # Seg Neutrophils # Man Lymphocytes # (Manual) Monocytes # (Manual) Basophils # (Manual) PT INR APTT ABG pH 7.200 L POC ABG pCO2 POC ABG pO2 123.1 H ABG Hemoglobin ABG Oxyhemoglobin ABG Sodium 131.3 L ABG Potassium 4.6 H ABG Chloride 112.0 H ABG Glucose 42 L Sodium Potassium Chloride Carbon Dioxide BUN Creatinine Glucose POC Glucose 50 L 476 H Lactic Acid Calcium Iron AST ALT Alkaline Phosphatase Ammonia CK-MB (CK-2) CK-MB (CK-2) Rel Index Total Protein Albumin Arterial Blood Glucose 42 L Urine Creatinine Urine Total Protein Salicylates Acetaminophen Crossmatch 10/15/20 10/15/20 10/16/20 16:46 17:01 00:45 WBC RBC Hgb Hct MCV MCH MCHC RDW Plt Count Bremer % (Auto) Bremer # (Auto) Seg Neutrophils % Seg Neuts % (Manual) Lymphocytes % (Manual) Monocytes % (Manual) Basophils % (Manual) Nucleated RBC % Seg Neutrophils # Seg Neutrophils # Man Lymphocytes # (Manual) Monocytes # (Manual) Basophils # (Manual) PT INR APTT ABG pH 7.250 L POC ABG pCO2 POC ABG pO2 49.8 L ABG Hemoglobin 9.3 L ABG Oxyhemoglobin 83.0 L ABG Sodium 130.2 L ABG Potassium ABG Chloride 111.0 H ABG Glucose Sodium 135 L Potassium Chloride Carbon Dioxide BUN Creatinine Glucose POC Glucose 67 L Lactic Acid Calcium Iron AST ALT Alkaline Phosphatase Ammonia CK-MB (CK-2) CK-MB (CK-2) Rel Index Total Protein Albumin Arterial Blood Glucose Urine Creatinine Urine Total Protein Salicylates Acetaminophen Crossmatch 10/16/20 10/16/20 10/16/20 05:36 05:53 05:53 WBC 16.6 H RBC 3.52 L Hgb 8.3 L Hct 26.6 L MCV 75 L MCH 23 L MCHC 31 L RDW 33.7 H Plt Count 63 L Bremer % (Auto) Bremer # (Auto) Seg Neutrophils % Seg Neuts % (Manual) 93.0 H Lymphocytes % (Manual) Monocytes % (Manual) Basophils % (Manual) Nucleated RBC % 3.0 H Seg Neutrophils # Seg Neutrophils # Man 15.4 H Lymphocytes # (Manual) 0.0 L Monocytes # (Manual) Basophils # (Manual) PT INR APTT ABG pH POC ABG pCO2 POC ABG pO2 ABG Hemoglobin ABG Oxyhemoglobin ABG Sodium ABG Potassium ABG Chloride ABG Glucose Sodium 136 L Potassium Chloride 111.9 H Carbon Dioxide 17 L BUN 29 H Creatinine 2.0 H Glucose 126 H POC Glucose 44 L Lactic Acid Calcium 8.1 L Iron AST ALT Alkaline Phosphatase Ammonia CK-MB (CK-2) CK-MB (CK-2) Rel Index Total Protein Albumin Arterial Blood Glucose Urine Creatinine Urine Total Protein Salicylates Acetaminophen Crossmatch 10/16/20 10/16/20 10/16/20 05:53 07:26 08:07 WBC RBC Hgb Hct MCV MCH MCHC RDW Plt Count Bremer % (Auto) Bremer # (Auto) Seg Neutrophils % Seg Neuts % (Manual) Lymphocytes % (Manual) Monocytes % (Manual) Basophils % (Manual) Nucleated RBC % Seg Neutrophils # Seg Neutrophils # Man Lymphocytes # (Manual) Monocytes # (Manual) Basophils # (Manual) PT 24.5 H INR 2.17 H APTT ABG pH POC ABG pCO2 POC ABG pO2 ABG Hemoglobin ABG Oxyhemoglobin ABG Sodium ABG Potassium ABG Chloride ABG Glucose Sodium Potassium Chloride Carbon Dioxide BUN Creatinine Glucose POC Glucose 58 L 51 L Lactic Acid Calcium Iron AST ALT Alkaline Phosphatase Ammonia CK-MB (CK-2) CK-MB (CK-2) Rel Index Total Protein Albumin Arterial Blood Glucose Urine Creatinine Urine Total Protein Salicylates Acetaminophen Crossmatch 10/16/20 10/16/20 10/16/20 08:52 11:14 11:33 WBC RBC Hgb Hct MCV MCH MCHC RDW Plt Count Bremer % (Auto) Bremer # (Auto) Seg Neutrophils % Seg Neuts % (Manual) Lymphocytes % (Manual) Monocytes % (Manual) Basophils % (Manual) Nucleated RBC % Seg Neutrophils # Seg Neutrophils # Man Lymphocytes # (Manual) Monocytes # (Manual) Basophils # (Manual) PT INR APTT ABG pH 7.044 L POC ABG pCO2 58.1 H POC ABG pO2 57.7 L ABG Hemoglobin 9.5 L ABG Oxyhemoglobin 81.5 L ABG Sodium 131.7 L ABG Potassium ABG Chloride 112.0 H ABG Glucose 59 L Sodium Potassium Chloride Carbon Dioxide BUN Creatinine Glucose POC Glucose 58 L Lactic Acid Calcium Iron AST 136 H ALT 72 H Alkaline Phosphatase 240 H Ammonia CK-MB (CK-2) CK-MB (CK-2) Rel Index Total Protein 5.1 L Albumin 2.1 L Arterial Blood Glucose 59 L Urine Creatinine Urine Total Protein Salicylates Acetaminophen Crossmatch 10/16/20 10/16/20 10/16/20 12:32 13:11 13:40 WBC RBC Hgb Hct MCV MCH MCHC RDW Plt Count Bremer % (Auto) Bremer # (Auto) Seg Neutrophils % Seg Neuts % (Manual) Lymphocytes % (Manual) Monocytes % (Manual) Basophils % (Manual) Nucleated RBC % Seg Neutrophils # Seg Neutrophils # Man Lymphocytes # (Manual) Monocytes # (Manual) Basophils # (Manual) PT INR APTT ABG pH POC ABG pCO2 POC ABG pO2 ABG Hemoglobin ABG Oxyhemoglobin ABG Sodium ABG Potassium ABG Chloride ABG Glucose Sodium Potassium Chloride Carbon Dioxide BUN Creatinine Glucose POC Glucose 27 L 54 L 69 L Lactic Acid Calcium Iron AST ALT Alkaline Phosphatase Ammonia CK-MB (CK-2) CK-MB (CK-2) Rel Index Total Protein Albumin Arterial Blood Glucose Urine Creatinine Urine Total Protein Salicylates Acetaminophen Crossmatch 10/16/20 10/16/20 10/16/20 15:13 17:15 17:34 WBC RBC Hgb Hct MCV MCH MCHC RDW Plt Count Bremer % (Auto) Bremer # (Auto) Seg Neutrophils % Seg Neuts % (Manual) Lymphocytes % (Manual) Monocytes % (Manual) Basophils % (Manual) Nucleated RBC % Seg Neutrophils # Seg Neutrophils # Man Lymphocytes # (Manual) Monocytes # (Manual) Basophils # (Manual) PT INR APTT ABG pH POC ABG pCO2 POC ABG pO2 ABG Hemoglobin ABG Oxyhemoglobin ABG Sodium ABG Potassium ABG Chloride ABG Glucose Sodium Potassium Chloride Carbon Dioxide BUN Creatinine Glucose POC Glucose 46 L 54 L 119 H Lactic Acid Calcium Iron AST ALT Alkaline Phosphatase Ammonia CK-MB (CK-2) CK-MB (CK-2) Rel Index Total Protein Albumin Arterial Blood Glucose Urine Creatinine Urine Total Protein Salicylates Acetaminophen Crossmatch 10/16/20 10/16/20 10/16/20 18:51 19:37 21:00 WBC RBC Hgb Hct MCV MCH MCHC RDW Plt Count Bremer % (Auto) Bremer # (Auto) Seg Neutrophils % Seg Neuts % (Manual) Lymphocytes % (Manual) Monocytes % (Manual) Basophils % (Manual) Nucleated RBC % Seg Neutrophils # Seg Neutrophils # Man Lymphocytes # (Manual) Monocytes # (Manual) Basophils # (Manual) PT INR APTT ABG pH 7.122 L POC ABG pCO2 49.8 H POC ABG pO2 62.1 L ABG Hemoglobin 9.1 L ABG Oxyhemoglobin 89.6 L ABG Sodium 130.1 L ABG Potassium 3.0 L ABG Chloride 111.0 H ABG Glucose 106 H Sodium Potassium Chloride Carbon Dioxide BUN Creatinine Glucose POC Glucose 64 L 114 H Lactic Acid Calcium Iron AST ALT Alkaline Phosphatase Ammonia CK-MB (CK-2) CK-MB (CK-2) Rel Index Total Protein Albumin Arterial Blood Glucose 106 H Urine Creatinine Urine Total Protein Salicylates Acetaminophen Crossmatch 10/16/20 10/16/20 10/17/20 22:01 22:58 00:58 WBC RBC Hgb Hct MCV MCH MCHC RDW Plt Count Bremer % (Auto) Bremer # (Auto) Seg Neutrophils % Seg Neuts % (Manual) Lymphocytes % (Manual) Monocytes % (Manual) Basophils % (Manual) Nucleated RBC % Seg Neutrophils # Seg Neutrophils # Man Lymphocytes # (Manual) Monocytes # (Manual) Basophils # (Manual) PT INR APTT ABG pH POC ABG pCO2 POC ABG pO2 ABG Hemoglobin ABG Oxyhemoglobin ABG Sodium ABG Potassium ABG Chloride ABG Glucose Sodium 133 L Potassium 3.5 L Chloride 107.7 H Carbon Dioxide 15 L BUN 29 H Creatinine 2.6 H Glucose POC Glucose 63 L 292 H Lactic Acid Calcium 7.9 L Iron AST ALT Alkaline Phosphatase Ammonia CK-MB (CK-2) CK-MB (CK-2) Rel Index Total Protein Albumin Arterial Blood Glucose Urine Creatinine Urine Total Protein Salicylates Acetaminophen Crossmatch 10/17/20 10/17/20 10/17/20 02:04 03:08 03:55 WBC RBC Hgb Hct MCV MCH MCHC RDW Plt Count Bremer % (Auto) Bremer # (Auto) Seg Neutrophils % Seg Neuts % (Manual) Lymphocytes % (Manual) Monocytes % (Manual) Basophils % (Manual) Nucleated RBC % Seg Neutrophils # Seg Neutrophils # Man Lymphocytes # (Manual) Monocytes # (Manual) Basophils # (Manual) PT INR APTT ABG pH POC ABG pCO2 POC ABG pO2 ABG Hemoglobin ABG Oxyhemoglobin ABG Sodium ABG Potassium ABG Chloride ABG Glucose Sodium Potassium Chloride Carbon Dioxide BUN Creatinine Glucose POC Glucose 200 H 173 H 161 H Lactic Acid Calcium Iron AST ALT Alkaline Phosphatase Ammonia CK-MB (CK-2) CK-MB (CK-2) Rel Index Total Protein Albumin Arterial Blood Glucose Urine Creatinine Urine Total Protein Salicylates Acetaminophen Crossmatch 10/17/20 10/17/20 10/17/20 04:00 04:49 04:49 WBC 17.7 H RBC 3.21 L Hgb 7.5 L Hct 25.4 L MCV 79 L MCH 24 L MCHC 30 L RDW 34.0 H Plt Count Bremer % (Auto) Bremer # (Auto) Seg Neutrophils % Seg Neuts % (Manual) Lymphocytes % (Manual) Monocytes % (Manual) Basophils % (Manual) Nucleated RBC % Seg Neutrophils # Seg Neutrophils # Man Lymphocytes # (Manual) Monocytes # (Manual) Basophils # (Manual) PT INR APTT ABG pH 7.116 L POC ABG pCO2 POC ABG pO2 61.1 L ABG Hemoglobin 8.4 L ABG Oxyhemoglobin 90.2 L ABG Sodium 125.0 L ABG Potassium 3.1 L ABG Chloride ABG Glucose 155 H Sodium 133 L Potassium 3.3 L Chloride Carbon Dioxide 15 L BUN 29 H Creatinine 2.7 H Glucose 138 H POC Glucose Lactic Acid Calcium 7.8 L Iron AST ALT Alkaline Phosphatase Ammonia CK-MB (CK-2) CK-MB (CK-2) Rel Index Total Protein Albumin Arterial Blood Glucose 155 H Urine Creatinine Urine Total Protein Salicylates Acetaminophen Crossmatch 10/17/20 10/17/20 10/17/20 04:58 06:01 07:50 WBC RBC Hgb Hct MCV MCH MCHC RDW Plt Count Bremer % (Auto) Bremer # (Auto) Seg Neutrophils % Seg Neuts % (Manual) Lymphocytes % (Manual) Monocytes % (Manual) Basophils % (Manual) Nucleated RBC % Seg Neutrophils # Seg Neutrophils # Man Lymphocytes # (Manual) Monocytes # (Manual) Basophils # (Manual) PT INR APTT ABG pH POC ABG pCO2 POC ABG pO2 ABG Hemoglobin ABG Oxyhemoglobin ABG Sodium ABG Potassium ABG Chloride ABG Glucose Sodium Potassium Chloride Carbon Dioxide BUN Creatinine Glucose POC Glucose 137 H 119 H 106 H Lactic Acid Calcium Iron AST ALT Alkaline Phosphatase Ammonia CK-MB (CK-2) CK-MB (CK-2) Rel Index Total Protein Albumin Arterial Blood Glucose Urine Creatinine Urine Total Protein Salicylates Acetaminophen Crossmatch Chest x-ray: image reviewed (persistent bilateral infiltrates) Allied health notes reviewed: nursing
--- NOTE | 2020-10-17 13:22 | Vascular Lab Report ---
DUPLEX DOPPLER UPPER EXTREMITY VENOUS, BILATERAL INDICATION / CLINICAL INFORMATION: swelling TECHNIQUE: Duplex doppler imaging was performed through the veins of the bilateral upper extremities using venous compression and other maneuvers. COMPARISON: None available. FINDINGS: RIGHT INTERNAL JUGULAR VEIN: Negative. RIGHT SUBCLAVIAN VEIN: Negative. RIGHT AXILLARY VEIN: Negative. RIGHT BRACHIAL VEIN: Negative. RIGHT FOREARM VEINS: Negative. RIGHT BASILIC VEIN (SUPERFICIAL): Occlusive superficial venous thrombosis RIGHT CEPHALIC VEIN (SUPERFICIAL): Occlusive superficial venous thrombosis LEFT INTERNAL JUGULAR VEIN: Negative. LEFT SUBCLAVIAN VEIN: Negative. LEFT AXILLARY VEIN: Negative. LEFT BRACHIAL VEIN: Negative. LEFT FOREARM VEINS: Negative. LEFT BASILIC VEIN (SUPERFICIAL): Occlusive superficial venous thrombosis LEFT CEPHALIC VEIN (SUPERFICIAL): Occlusive superficial venous thrombosis ADDITIONAL FINDINGS: Mild soft tissue edema is seen bilaterally IMPRESSION: 1. No sonographic evidence for DVT 2. Bilateral occlusive superficial venous thrombosis as above DUPLEX DOPPLER LOWER EXTREMITY VEINS, BILATERAL INDICATION / CLINICAL INFORMATION: swelling TECHNIQUE: Duplex doppler imaging was performed through the veins of both lower extremities using mejia ous compression and other maneuvers. COMPARISON: None available. FINDINGS: RIGHT COMMON FEMORAL VEIN: Negative. RIGHT FEMORAL VEIN: Negative. RIGHT POPLITEAL VEIN: Negative. RIGHT CALF VEINS: Negative. LEFT COMMON FEMORAL VEIN: Negative. LEFT FEMORAL VEIN: Negative. LEFT POPLITEAL VEIN: Negative. LEFT CALF VEINS: Negative. ADDITIONAL FINDINGS: Soft tissue edema is noted IMPRESSION: No sonographic evidence for DVT in either lower extremity. Signer Name: Beto Rosa MD Signed: 10/17/2020 1:18 PM Workstation Name: [email or web address]
[2020-10-17 13:39] LABS: Band Neutrophils # (Manual) 2.3 K/mm3; Myelocytes # (Manual) 1.2 K/mm3; Total Cells Counted 100
[2020-10-17 13:40] LABS: Anisocytosis 3+; Burr Cells 1+; Giant Platelets Rare; Hypochromasia 2+; Platelet Estimate Consistent w Auto; Poikilocytosis 2+
[2020-10-17 14:04] LABS: Platelet Count 40 K/mm3 (140-440)
--- NOTE | 2020-10-17 14:14 | Progress Note ---
<KATELINEVERETT H. - Last Filed: 10/17/20 15:12> Assessment and Plan Assessment and plan: This is 74-year-old male with GERD admitted with arthrosclerotic calcification, anemia and hypoglycemia. Neuro: Acute metabolic encephalopathy, significant narrowing in bilateral posterior cerebral arteries, left-sided hemiparesis with aphasia, atherosclerotic cerebrovascular disease -Avoid delirium -Patient is not sedated -Minimally interactive at this time, decorticate posturing to pain to BLE, triple flex to BLE, Intact cough/gag and pupils are very sluggish to reaction -CTA head/CTA neck completed-> see results -MRI brain completed-> see results, findings suggestive of ventriculomegaly -Thiamine and folate daily -Keppra -Seizure precautions -Neurology consulted, appreciate recommendations -EEG completed which cannot rule out acute seizure with postictal state Cardio: SB-SR, hypotension, afib, HFrEF (10-15%) -Levophed, epi, phenylepi, dobutamine, vasopressor -MAP goal greater than 65 -Blood pressure monitoring per protocol -PICC 10/16 -Cardiology consulted, appreciate recommendations -no anticoagulation per cards for now -Amio for afib -Echo completed-> see results, EF 25-30% Respiratory: Acute hypoxic respiratory failure; mixed resp and metabolic acidosis -Patient was intubated on 10/15 -VAP bundle -Current vent settings: Assist control, tidal volume 500, rate 30, PEEP of 8 on 60% FiO2 -Intubated with 7.5 OETT 24 at the [facility] following -VAP bundle -10/17: CXR and ABG reviewed -Daily CXR and ABG -SBT/SAT when appropriate GI:? GIB, oropharyngeal dysphagia, severe protein-calorie malnutrition -Nutrition consult for tube feedings -GI consulted, appreciate recommendations -GI will hold off EGD/PEG given acute clinical worsening with respiratory failure -Past 24 hours net [phone] -PPI with Protonix -BR with Senokot : Hyponatremia, hypokalemia, metabolic acidosis, acute kidney injury secondary to ATN -Nephrology consulted, appreciate recommendations -Strict intake and output -Monitor BMP -munoz for I&O -D5W with 150meq of HCO3@100 for 2 liters Heme: Iron deficient anemia, leukocytosis, supratherapeutic INR, superfical venous thrombus -Likely secondary to malnutrition -S/p 3 units of PRBC -Iron/multivitamin supplements -GI consulted, patient recommendations -Monitor H/H -Hold off EGD/colonoscopy given acute clinical worsening with respiratory failure per GI -Trend CBC -Bilateral upper and lower extremity Doppler ultrasound shows occlusive superficial venous thrombus of left basilic and cephalic vein. -Monitor INR and bleeding Endo: Persistent hypoglycemia-resolving -Patient was on D10 23 % saline at 100ml/hr switched to D10W at 125ml/hr -Accu-Cheks every 4 -Hypoglycemia protocol -Avoid hypoglycemia ID: Pulmonary infiltrate in right lung, Hypothermia -COVID-19 PCR negative -Antibiotic therapy with cefepime -Monitor CBC and temperature curve -Intermittent Joseph hugger use -TSH 2.1 The high probability of a clinically significant, sudden or life threatening deterioration of the [multi] system(s) required my full and direct attention, intervention and personal management. The aggregate critical care time was [90] minutes. This time is in addition to time spent performing reported procedures but includes the following: [x] Data Review and interpretation [x] Patient assessment and monitoring of vital signs [x] Documentation [x] Medication orders and management Disposition Plan: icu Total Time Spent with Patient (Minutes): 90 History Interval history: This is 74-year-old male with GERD who presented with AMS and left-sided weakness on 10/03 after being found incontinent in feces and urine on bed. Patient was only able to answer simple questions to the EMS. Upon presentation to the ED patient was confused. CT head showed cerebral with arthrosclerotic calcification. Work-up in the emergency department revealed anemia and hypoglycemia. Patient admitted to the hospital service for further work-up. 10/03/20: CT of the head no acute finding but showed a cerebral atrophy with suspicious atrophy and atherosclerotic calcification within the distal right middle cerebral artery. Patient also noted with hemoglobin of 5.8, received 1 unit of packed RBC and ordered for tomorrow Neuro is consulted, Covid test is negative We will check stool for occult blood MRI brain ordered we will follow Will hold any oral medicine until cleared by speech or passes the bedside swallow eval Patient noted to have severe hypoglycemic, will place on D10W Follow H&H and BMP Continue current management plan as dictated in the HPI 10/04/20: no acute findings in MRI, pending EEG, s/p 3 units PRBC transfusion. follow speech miguel, TF for now, h/h stable, GI consulted - follow recommendation. 10/05/20 Patient with acute encephalopathy, severe anemia s/p PRBC transfusion. GI following. Hgb 9.8 today. Will repeat in am. Left sided weakness. MRI negative for stroke. Neurology following. 10/06/20 Patient with encephalopathy, severe anemia s/p PRBC transfusion. Hgb 9.4 today. Patient has left sided weakness but MRI neg. Patient needs PEG tube. Will talk with family. Hypokalemia. Replace Q6h X 2. Check Mg 10/07/20 Patient with encephalopathy, severe anemia s/p PRBC transfusion. Hgb 9.6 today. Patient has left sided weakness but MRI neg. Patient needs PEG tube. Will talk with family. Hyponatremia of 128. This may be due to D10% he was on prior to NG tube. Stopped 10% Dextrose. Consulted Nephrology 10/08/20 Patient with encephalopathy, severe anemia s/p PRBC transfusion. Hgb 9.6 today. Patient has left sided weakness but MRI neg. Patient needs PEG tube. Hyponatremia worse today 126. This is due to D10% resumed last night because of hypoglycemia. I discussed with Dr. Herrera. Stop 10%Dextrose. Start D5NS Spoke to daughterCindy, yesterday and gave update. She wants PEG tube placed. Discussed plan with PAKO Chambers. He wants to do upper and lower endoscopy to evaluate anemia, before PEG tube 10/09/20 Patient with encephalopathy, severe anemia s/p PRBC transfusion. Hgb 10.3 today. Patient has left sided weakness but MRI neg. Patient needs PEG tube. Hyponatremia still present Na 126 today. This is due to D10% resumed again last night because of hypoglycemia. Nephrology had recommended D5NS but 10% Dextrose restarted overnight because of hypoglycemia. Nurses unable to place NG tube. I discussed with Dr. Otero today and he will do. Spoke to daughterCindy, yesterday and gave update. She wants PEG tube placed. Discussed plan with PAKO Chambers. He wants to do upper and lower endoscopy to evaluate anemia, before PEG tube Today Na still 126. I discussed with Dr. Herrera and he recommended D10NS. I called Pharmacy. They will mix special D10NS drip. Patient had bilateral pneumonia on CXR therefore started iv Antibiotics, blood cultures. yesterday. Consulted ID 10/10/2020. Patient remains encephalopathic with hemoglobin stabilizing yesterday. Recheck H&H. Patient with left-sided weakness but MRI negative. Fluoroscopic NG tube placement completed yesterday. Await GI to perform EGD and colonoscopy. Follow-up hyponatremia with BMP results. Dr. Aldrich Spoke to daughter, Cindy Singh, and gave update. Daughter wants PEG tube placed. Continue IV antibiotics for bilateral pneumonia. ID consulted. Follow-up procalcitonin levels. 10/11/2020. Patient's hemoglobin remained stable today at 9.5. However, patient noted to be hypotensive with systolic blood pressure of 83. Patient received NS 250 cc bolus with improvement of blood pressure systolically to 123. GI plans to perform EGD/colonoscopy tomorrow. Hyponatremia improving. Start IV fluid of normal saline at 75 cc an hour x1 L 10/12/2020. Patient noted to have some gurgling of the upper airway. NG tube was placed to low intermittent suction. Check chest x-ray and KUB to rule out aspiration and/or ileus. Continue to monitor. H/H remained stable. ID stopped antibiotics due to normal procalcitonin. Speech evaluation 10/13/2020. Patient remains encephalopathic. I discussed overall mental status with the daughter yesterday and updated her with plan of care. Neurology reports: CT angio of the head that is a significant narrowing seen in both posterior cerebral arteries - and no signs of large vessel -CT of the head no acute finding but showed a cerebral atrophy with suspicious atrophy and atherosclerotic calcification within the distal right middle cerebral artery. -MRI brain without any acute findings - EEG completed yesterday remarkable for diffuse slowing 3-4 Hz and with occassional triphasic waves , no epileptiform discharges is noted -- full report to follow -Repeat MRI brain showed no acute finding Keppra was decreased to 250 mg IV twice daily and thiamine was added x3 days. No LP for now due to lack of any inflammatory findings. Repeat EEG per neurology. Sodium level has improved. Serum creatinine has increased to 1.6 today. Avoid nephrotoxic agents and monitor I/O's daily. Salt tabs 2 g 3 times daily per nephrology 10/14/2020. Patient remains encephalopathic. MRI, EEG and CT results noted above. Continue supportive care. Defer to neurology recommendations regarding mental status/encephalopathy. Continue salt tabs per nephrology. Follow-up BMP. Avoid nephrotoxic agents and monitor I/O's daily. Continue NG tube feedings. PEG placement per GI. 10/15/2020. Patient noted to have significant respiratory distress. Patient with tachypnea, some accessory muscle use, labored breathing and coarse breath sounds and sonorous respirations. Dr. Maldonado from the emergency department intubated the patient. Dr. Floyd was consulted and notified. The patient will be transferred to the ICU and continued on mechanical ventilation. Follow-up chest x-ray. 10/16: Patient is having persistent hypoglycemia despite being on D10 23% saline at 100ml/hr. given multiple amps of D50 with minimal response. The patient IV fluids changed to D5W at 125. Repeat BMP in the p.m. 10/17: hypoglycemia better, remains on levophed, epi, neoshynephrine, dobumatine and bicarb gtt this morning. RN is slowly titrating vasopressor as tolerated. Updated daughter Mignon today and relayed new findings including posturing of BUE to pain. Hospitalist Physical - Constitutional Vitals: Temp Pulse Resp BP Pulse Ox 97.7 F 100 H 30 H 129/71 100 10/17/20 12:00 10/17/20 11:53 10/17/20 04:00 10/17/20 11:53 10/17/20 11:53 General appearance: Present: other (Not responsive to voice or touch. NG tube in place. Laying with mouth open and breathing through mouth.) HEART Score - HEART Score Troponin: Troponin T < 0.010 ng/mL (0.00-0.029) 10/02/20 23:17 Results - Labs CBC & Chem 7: 10/17/20 04:49 10/17/20 04:49 Labs: Laboratory Last Values WBC 17.7 K/mm3 (4.5-11.0) H 10/17/20 04:49 RBC 3.21 M/mm3 (3.65-5.03) L 10/17/20 04:49 Hgb 7.5 gm/dl (11.8-15.2) L 10/17/20 04:49 Hct 25.4 % (35.5-45.6) L 10/17/20 04:49 MCV 79 fl (84-94) L 10/17/20 04:49 MCH 24 pg (28-32) L 10/17/20 04:49 MCHC 30 % (32-34) L 10/17/20 04:49 RDW 34.0 % (13.2-15.2) H 10/17/20 04:49 Plt Count 40 K/mm3 (140-440) L 10/17/20 04:49 Lymph % (Auto) Wastewater Treatment Supervisor 10/10/20 10:58 [place] % (Auto) 8.3 % (0.0-7.3) H 10/15/20 05:50 Eos % (Auto) 0.3 % (0.0-4.3) 10/15/20 05:50 Baso % (Auto) Wastewater Treatment Supervisor 10/10/20 10:58 Lymph # (Auto) Wastewater Treatment Supervisor 10/10/20 10:58 [place] # (Auto) 1.3 K/mm3 (0.0-0.8) H 10/15/20 05:50 Eos # (Auto) 0.0 K/mm3 (0.0-0.4) 10/15/20 05:50 Baso # (Auto) 0.1 K/mm3 (0.0-0.1) 10/15/20 05:50 Add Manual Diff Complete 10/17/20 04:49 Total Counted 100 10/17/20 04:49 Seg Neutrophils % Wastewater Treatment Supervisor 10/17/20 04:49 Seg Neuts % (Manual) 60.0 % (40.0-70.0) 10/17/20 04:49 Band Neutrophils % 13.0 % 10/17/20 04:49 Lymphocytes % (Manual) 3.0 % (13.4-35.0) L 10/17/20 04:49 Monocytes % (Manual) 6.0 % (0.0-7.3) 10/17/20 04:49 Eosinophils % (Manual) 1.0 % (0.0-4.3) 10/13/20 05:24 Basophils % (Manual) 2.0 % (0.0-1.8) H 10/10/20 10:58 Metamyelocytes % 11.0 % 10/17/20 04:49 Myelocytes % 7.0 % 10/17/20 04:49 Nucleated RBC % 3.0 % (0.0-0.9) H 10/17/20 04:49 Seg Neutrophils # 13.2 K/mm3 (1.8-7.7) H 10/15/20 05:50 Seg Neutrophils # Man 10.6 K/mm3 (1.8-7.7) H 10/17/20 04:49 Band Neutrophils # 2.3 K/mm3 10/17/20 04:49 Lymphocytes # (Manual) 0.5 K/mm3 (1.2-5.4) L 10/17/20 04:49 Abs React Lymphs (Man) 0.0 K/mm3 10/17/20 04:49 Monocytes # (Manual) 1.1 K/mm3 (0.0-0.8) H 10/17/20 04:49 Eosinophils # (Manual) 0.0 K/mm3 (0.0-0.4) 10/17/20 04:49 Basophils # (Manual) 0.0 K/mm3 (0.0-0.1) 10/17/20 04:49 Metamyelocytes # 1.9 K/mm3 10/17/20 04:49 Myelocytes # 1.2 K/mm3 10/17/20 04:49 Promyelocytes # 0.0 K/mm3 10/17/20 04:49 Blast Cells # 0.0 K/mm3 10/17/20 04:49 WBC Morphology Not Reportable 10/17/20 04:49 Hypersegmented Neuts Not Reportable 10/17/20 04:49 Hyposegmented Neuts Not Reportable 10/17/20 04:49 Hypogranular Neuts Not Reportable 10/17/20 04:49 Smudge Cells Not Reportable 10/17/20 04:49 Toxic Granulation Not Reportable 10/17/20 04:49 Toxic Vacuolation Not Reportable 10/17/20 04:49 Dohle Bodies Not Reportable 10/17/20 04:49 Pelger-Huet Anomaly Not Reportable 10/17/20 04:49 Andrés Rods Not Reportable 10/17/20 04:49 Platelet Estimate Consistent w auto 10/17/20 04:49 Clumped Platelets Not Reportable 10/17/20 04:49 Plt Clumps, EDTA Not Reportable 10/17/20 04:49 Large Platelets Not Reportable 10/17/20 04:49 Giant Platelets Rare 10/17/20 04:49 Platelet Satelliting Not Reportable 10/17/20 04:49 Plt Morphology Comment Not Reportable 10/17/20 04:49 RBC Morphology Not Reportable 10/17/20 04:49 Dimorphic RBCs Not Reportable 10/17/20 04:49 Polychromasia Not Reportable 10/17/20 04:49 Hypochromasia 2+ 10/17/20 04:49 Poikilocytosis 2+ 10/17/20 04:49 Anisocytosis 3+ 10/17/20 04:49 Microcytosis Not Reportable 10/17/20 04:49 Macrocytosis Not Reportable 10/17/20 04:49 Spherocytes Not Reportable 10/17/20 04:49 Pappenheimer Bodies Not Reportable 10/17/20 04:49 Sickle Cells Not Reportable 10/17/20 04:49 Target Cells Not Reportable 10/17/20 04:49 Tear Drop Cells Not Reportable 10/17/20 04:49 Ovalocytes Not Reportable 10/17/20 04:49 Helmet Cells Not Reportable 10/17/20 04:49 [place] Bodies Not Reportable 10/17/20 04:49 [place] Rings Not Reportable 10/17/20 04:49 [place] Cells 1+ 10/17/20 04:49 Bite Cells Not Reportable 10/17/20 04:49 Crenated Cell Not Reportable 10/17/20 04:49 Elliptocytes Not Reportable 10/17/20 04:49 Acanthocytes (Spur) Not Reportable 10/17/20 04:49 Rouleaux Not Reportable 10/17/20 04:49 Hemoglobin C Crystals Not Reportable 10/17/20 04:49 Schistocytes Not Reportable 10/17/20 04:49 Malaria parasites Not Reportable 10/17/20 04:49 Dereck Bodies Not Reportable 10/17/20 04:49 Hem Pathologist Commnt No 10/17/20 04:49 PT 24.5 Sec. (12.2-14.9) H 10/16/20 05:53 INR 2.17 (0.87-1.13) H 10/16/20 05:53 APTT 57.6 Sec. (24.2-36.6) H 10/02/20 23:17 Thrombin Time 17.8 Sec. (15.1-19.6) 10/02/20 23:17 ABG pH 7.116 (7.320-7.450) L 10/17/20 04:00 POC ABG pCO2 41.6 mmHg (32.0-48.0) 10/17/20 04:00 POC ABG pO2 61.1 mmHg (83-108) L 10/17/20 04:00 POC ABG HCO3 13.1 10/17/20 04:00 ABG O2 Saturation 91.4 (0-100) 10/17/20 04:00 POC ABG Base Excess -15.3 10/17/20 04:00 ABG Hemoglobin 8.4 (12.0-17.5) L 10/17/20 04:00 ABG Oxyhemoglobin 90.2 (94-98) L 10/17/20 04:00 ABG Methemoglobin 0.1 (0.0-1.5) 10/17/20 04:00 ABG Sodium 125.0 mmol/L (136.0-145.0) L 10/17/20 04:00 ABG Potassium 3.1 mmol/L (3.40-4.50) L 10/17/20 04:00 ABG Chloride 106.0 mmol/L (98-107) 10/17/20 04:00 ABG Glucose 155 mg/dL (65-95) H 10/17/20 04:00 Carboxyhemoglobin 1.2 (0.5-1.5) 10/17/20 04:00 FiO2 % 70.0 10/17/20 04:00 Sodium 133 mmol/L (137-145) L 10/17/20 04:49 Potassium 3.3 mmol/L (3.6-5.0) L 10/17/20 04:49 Chloride 104.9 mmol/L (98-107) 10/17/20 04:49 Carbon Dioxide 15 mmol/L (22-30) L 10/17/20 04:49 Anion Gap 16 mmol/L 10/17/20 04:49 BUN 29 mg/dL (9-20) H 10/17/20 04:49 Creatinine 2.7 mg/dL (0.8-1.3) H 10/17/20 04:49 Estimated GFR 28 ml/min 10/17/20 04:49 BUN/Creatinine Ratio 11 % 10/17/20 04:49 Glucose 138 mg/dL (75-100) H 10/17/20 04:49 POC Glucose 111 mg/dL (70-105) H 10/17/20 11:50 Hemoglobin A1c 5.2 % (4-6) 10/03/20 05:57 Osmolality 267 Mosm/kg 10/07/20 13:54 Lactic Acid 1.50 mmol/L (0.7-2.0) 10/03/20 04:43 Calcium 7.8 mg/dL (8.4-10.2) L 10/17/20 04:49 Phosphorus 3.00 mg/dL (2.5-4.5) 10/06/20 05:07 Magnesium 1.90 mg/dL (1.7-2.3) 10/06/20 05:07 Iron 42 ug/dL (49-181) L 10/03/20 05:57 TIBC 305 mcg/dL (250-450) 10/03/20 05:57 Total Bilirubin 0.40 mg/dL (0.1-1.2) 10/16/20 11:14 Direct Bilirubin 0.2 mg/dL (0-0.2) 10/16/20 11:14 Indirect Bilirubin 0.2 mg/dL 10/16/20 11:14 AST 136 units/L (5-40) H 10/16/20 11:14 ALT 72 units/L (7-56) H 10/16/20 11:14 Alkaline Phosphatase 240 units/L (35-129) H 10/16/20 11:14 Ammonia 22.0 umol/L (25-60) L 10/02/20 23:17 Total Creatine Kinase 88 units/L (55-170) 10/02/20 23:17 CK-MB (CK-2) 7.5 ng/mL (0.0-4.0) H 10/02/20 23:17 CK-MB (CK-2) Rel Index 8.5 (0-4) H 10/02/20 23:17 Troponin T < 0.010 ng/mL (0.00-0.029) 10/02/20 23:17 Total Protein 5.1 g/dL (6.3-8.2) L 10/16/20 11:14 Albumin 2.1 g/dL (3.9-5) L 10/16/20 11:14 Albumin/Globulin Ratio 0.7 % 10/16/20 11:14 Lipase 17 units/L (13-60) 10/16/20 22:58 Procalcitonin 0.10 ng/mL (<0.15) 10/10/20 10:58 TSH 2.130 mlU/mL (0.270-4.200) 10/07/20 13:54 Total Cortisol 17.4 mcg/dL () 10/09/20 02:46 Arterial Blood Glucose 155 mg/dL (65-95) H 10/17/20 04:00 Arterial Blood Ionized Calcium 4.9 mg/dL (4.6-5.3) 10/17/20 04:00 Urine Eosinophils None seen (None Seen) 10/14/20 Unknown Urine Osmolality 223 Mosm/kg 10/07/20 Unknown Urine Creatinine 144.2 mg/dL (0.1-20.0) H 10/14/20 Unknown Protein/Creatinin Ratio 0.67 10/14/20 Unknown Urine Sodium 10 mmol/L 10/14/20 Unknown Urine Total Protein 97 mg/dL (5-11.8) H 10/14/20 Unknown Salicylates < 0.3 mg/dL (2.8-20.0) L 10/02/20 23:17 Acetaminophen 5.0 ug/mL (10.0-30.0) L 10/02/20 23:17 Plasma/Serum Alcohol < 0.01 % (0-0.07) 10/02/20 23:17 Coronavirus (PCR) Negative (Negative) 10/14/20 08:00 Blood Type O POSITIVE 10/03/20 05:57 Antibody Screen Negative 10/03/20 05:57 Crossmatch See Detail 10/03/20 05:57 Munoz/IV: Voiding Method Condom Catheter Active Medications - Current Medications Current Medications: Generic Name Dose Route Start Last Admin Trade Name Freq PRN Reason Stop Dose Admin Acetaminophen 650 mg 10/03/20 02:10 10/06/20 15:28 Acetaminophen 325 Mg Tab PO 650 mg Q4H PRN Administration Pain MILD(1-3)/Fever >100.5/ROMERO Al Hydrox/Mg Hydrox/Simethicone 30 ml 10/03/20 02:10 Alum-Mag Hydroxide-Simethicone [phone]/5ml Oral Liqd 30 Ml PO Q4H PRN Indigestion Lipase/Protease/Amylase 1 each 10/03/20 16:51 Lipase 10,500/Protease 25,000/Amylase 43,750 (Units) Dr Reis FEEDTUBE PRN PRN For Clogged Feeding Tube Dextrose 50 ml 10/16/20 12:42 10/16/20 15:17 Dextrose 50% In Water (25gm) 50 Ml Syringe IV 50 ml Q30MIN PRN Administration Hypoglycemia Protocol Ferrous Sulfate 308 mg 10/16/20 10:00 10/17/20 10:25 Ferrous Sulfate 308 Mg (62mg Elemental Iron) / 7 Ml Elixir FEEDTUBE 308 mg DAILY JOSE Administration Folic Acid 1 mg 10/03/20 10:00 10/17/20 10:25 Folic Acid 1 Mg Tab PO 1 mg QDAY JOSE Administration Levetiracetam 250 mg/ Dextrose 102.5 mls @ 400 mls/hr 10/10/20 22:00 10/17/20 10:25 IV 400 mls/hr Q12HR JOSE Administration Vasopressin 20 unit/ Sodium 101 mls @ 9.09 mls/hr 10/16/20 13:00 10/17/20 10:34 Chloride IV 0.03 units/min TITR JOSE 9.09 mls/hr Administration Protocol 0.03 UNITS/MIN Dextrose 1,000 mls @ 125 mls/hr 10/16/20 13:00 10/17/20 12:21 D10w IV 125 mls/hr DIRECT JOSE Administration Sodium Bicarbonate 150 meq/ 1,150 mls @ 100 mls/hr 10/16/20 15:00 10/17/20 12:16 Dextrose IV 10/19/20 02:29 100 mls/hr DIRECT JOSE Administration Phenylephrine HCl 100 mg/ 100 mls @ 3 mls/hr 10/16/20 18:00 10/17/20 13:45 Sodium Chloride IV 340 mcg/min TITR JOSE 20.4 mls/hr Titration Protocol 50 MCG/MIN NORepinephrine/NS 8 MG-250 ML 8 mg in 250 mls @ 3.75 mls/hr 10/16/20 19:00 10/17/20 13:17 Norepinephrine/Ns 8 Mg-250 Ml (Double Conc) IV 22 mcg/min TITRATE JOSE 41.25 mls/hr Titration Protocol 2 MCG/MIN Amiodarone HCl 900 mg/ 500 mls @ 16.667 mls/hr 10/16/20 20:00 10/16/20 19:30 Dextrose IV 0.5 mg/min DIRECT JOSE 16.667 mls/hr Administration Protocol 0.5 MG/MIN Dobutamine HCl/Dextrose 500 mg in 250 mls @ 6.908 mls/hr 10/16/20 19:00 10/16/20 21:03 Dobutrex Drip 500mg/D5w 250ml IV 5 mcg/kg/min DIRECT JOSE 13.815 mls/hr Infusion Protocol 2.5 MCG/KG/MIN Epinephrine 8 mg/ Sodium 250 mls @ 0 mls/hr 10/16/20 23:45 10/17/20 11:33 Chloride IV 0 mls/hr TITR JOSE Infusion Cefepime HCl 2 gm in 100 mls @ 200 mls/hr 10/17/20 22:00 Cefepime/Ns 2 Gm/100 Ml IV 10/22/20 22:29 Q24H JOSE Protocol Magnesium Hydroxide 30 ml 10/03/20 02:10 Magnesium Hydroxide (Mom) Oral Liqd Udc PO Q4H PRN Constipation Metoclopramide HCl 5 mg 10/17/20 09:00 Metoclopramide 10 Mg/2 Ml Inj IV Q6H PRN Nausea And Vomiting Ondansetron HCl 4 mg 10/03/20 02:10 10/07/20 23:19 Ondansetron 4 Mg/2 Ml Inj IV 4 mg Q8H PRN Administration Nausea And Vomiting Pantoprazole Sodium 40 mg 10/04/20 15:00 10/17/20 10:25 Pantoprazole 40 Mg Inj IV 40 mg QDAY JOSE Administration Promethazine HCl 25 mg 10/03/20 02:10 Promethazine 25 Mg Rect Supp HI Q6H PRN N/V IF NPO AND NO IV ACCESS Senna 8.6 mg 10/03/20 02:10 Sennosides 8.6 Mg Tab PO Q12HR PRN Constipation Simple Syrup 15 ml 10/03/20 16:51 10/16/20 18:19 Simple Syrup 15 Ml FEEDTUBE 15 ml PRN PRN Administration Hypoglycemia Simple Syrup 30 ml 10/03/20 16:51 10/16/20 22:02 Simple Syrup 15 Ml FEEDTUBE 30 ml PRN PRN Administration Hypoglycemia Sodium Bicarbonate 325 mg 10/03/20 16:51 Sodium Bicarbonate 325 Mg Tab FEEDTUBE PRN PRN For Clogged Feeding Tube Nutrition/Malnutrition Assess - Dietary Evaluation Nutrition/Malnutrition Findings: Nutrition Notes Start: 10/03/20 08:51 Freq: Status: Active Protocol: Document 10/16/20 10:01 CW (Rec: 10/16/20 10:08 CW [id number]) Nutrition Notes Initial or Follow up Reassessment Current Diagnosis Diabetes Other Pertinent Diagnosis AMS, hypothermia, pneu, anemia , atherosclerotic cerebrovascular disease Current Diet Nepro at 40 ml/hr Labs/Tests Na 136 BUN 29 Cr 2 BG 126 Pertinent Medications Lasix folic acid Height 5 ft 10 in Weight 92.1 kg Andrews Body Weight (kg) 75.45 BMI 29.1 Weight change and time frame wt change anticpated related to fluid Weight Status Overweight Subjective/Other Information PEG placement on hold via GI. Per notes TF was running at goal then held d/t suspected aspiration. TF has been restarted at 20 ml/hr. Percent of energy/protein needs met: 50%/50% Burn Absent Trauma Absent Difficulty In Swallowing Current % PO Negligible Minimum of two criteria No Fluid Accumulation Moderate to Severe (severe) #1 Nutrition Diagnosis Swallowing difficulty Diagnosis Progress(for reassessment Continues documentation) Is patient on ventilator? No Is Patient Ambulatory and/or Out of Bed No REE-([facility]-confined to bed) 1993.892 Kcal/Kg value to use for calculation 20 Approximate Energy Requirements Using 1842 kcal/Kg Calculation Used for Recommendations Kcal/kg Additional Notes Protein: (1-1.2g/kg) 84-101g Fluid: 1 ml/kcal Nutrition Intervention Change Diet Order: restart TF when medically feasible Nutrition Support: Nepro at 40ml/hour For hyponatremia flush 75 ml q4h, once resolved resume flush at 170 ml q4h Kcal 1,728 Protein (gm) 78 Fluid (mL) 698 Goal #1 Meet at least 75% of protein and energy needs via TF Anticipated Discharge Needs: continue TF regimen Follow-Up By: 10/18/20 Additional Comments F/U TF tolerance/ POC <TJ WOODS - Last Filed: 10/18/20 07:15> History Interval history: I saw and evaluated the patient. Discussed with the nurse practitioner and agree with their findings and plan as documented in this note. Hospitalist Physical - Constitutional Vitals: Temp Pulse Resp BP Pulse Ox 99.1 F 100 H 30 H 107/51 93 10/18/20 04:00 10/18/20 04:00 10/18/20 04:00 10/18/20 03:44 10/18/20 04:00 HEART Score - HEART Score Troponin: Troponin T < 0.010 ng/mL (0.00-0.029) 10/02/20 23:17 Results - Labs CBC & Chem 7: 10/17/20 04:49 10/18/20 04:06 Labs: Laboratory Last Values WBC 17.7 K/mm3 (4.5-11.0) H 10/17/20 04:49 RBC 3.21 M/mm3 (3.65-5.03) L 10/17/20 04:49 Hgb 7.5 gm/dl (11.8-15.2) L 10/17/20 04:49 Hct 25.4 % (35.5-45.6) L 10/17/20 04:49 MCV 79 fl (84-94) L 10/17/20 04:49 MCH 24 pg (28-32) L 10/17/20 04:49 MCHC 30 % (32-34) L 10/17/20 04:49 RDW 34.0 % (13.2-15.2) H 10/17/20 04:49 Plt Count 40 K/mm3 (140-440) L 10/17/20 04:49 Lymph % (Auto) Wastewater Treatment Supervisor 10/10/20 10:58 [place] % (Auto) 8.3 % (0.0-7.3) H 10/15/20 05:50 Eos % (Auto) 0.3 % (0.0-4.3) 10/15/20 05:50 Baso % (Auto) Wastewater Treatment Supervisor 10/10/20 10:58 Lymph # (Auto) Wastewater Treatment Supervisor 10/10/20 10:58 [place] # (Auto) 1.3 K/mm3 (0.0-0.8) H 10/15/20 05:50 Eos # (Auto) 0.0 K/mm3 (0.0-0.4) 10/15/20 05:50 Baso # (Auto) 0.1 K/mm3 (0.0-0.1) 10/15/20 05:50 Add Manual Diff Complete 10/17/20 04:49 Total Counted 100 10/17/20 04:49 Seg Neutrophils % Wastewater Treatment Supervisor 10/17/20 04:49 Seg Neuts % (Manual) 60.0 % (40.0-70.0) 10/17/20 04:49 Band Neutrophils % 13.0 % 10/17/20 04:49 Lymphocytes % (Manual) 3.0 % (13.4-35.0) L 10/17/20 04:49 Monocytes % (Manual) 6.0 % (0.0-7.3) 10/17/20 04:49 Eosinophils % (Manual) 1.0 % (0.0-4.3) 10/13/20 05:24 Basophils % (Manual) 2.0 % (0.0-1.8) H 10/10/20 10:58 Metamyelocytes % 11.0 % 10/17/20 04:49 Myelocytes % 7.0 % 10/17/20 04:49 Nucleated RBC % 3.0 % (0.0-0.9) H 10/17/20 04:49 Seg Neutrophils # 13.2 K/mm3 (1.8-7.7) H 10/15/20 05:50 Seg Neutrophils # Man 10.6 K/mm3 (1.8-7.7) H 10/17/20 04:49 Band Neutrophils # 2.3 K/mm3 10/17/20 04:49 Lymphocytes # (Manual) 0.5 K/mm3 (1.2-5.4) L 10/17/20 04:49 Abs React Lymphs (Man) 0.0 K/mm3 10/17/20 04:49 Monocytes # (Manual) 1.1 K/mm3 (0.0-0.8) H 10/17/20 04:49 Eosinophils # (Manual) 0.0 K/mm3 (0.0-0.4) 10/17/20 04:49 Basophils # (Manual) 0.0 K/mm3 (0.0-0.1) 10/17/20 04:49 Metamyelocytes # 1.9 K/mm3 10/17/20 04:49 Myelocytes # 1.2 K/mm3 10/17/20 04:49 Promyelocytes # 0.0 K/mm3 10/17/20 04:49 Blast Cells # 0.0 K/mm3 10/17/20 04:49 WBC Morphology Not Reportable 10/17/20 04:49 Hypersegmented Neuts Not Reportable 10/17/20 04:49 Hyposegmented Neuts Not Reportable 10/17/20 04:49 Hypogranular Neuts Not Reportable 10/17/20 04:49 Smudge Cells Not Reportable 10/17/20 04:49 Toxic Granulation Not Reportable 10/17/20 04:49 Toxic Vacuolation Not Reportable 10/17/20 04:49 Dohle Bodies Not Reportable 10/17/20 04:49 Pelger-Huet Anomaly Not Reportable 10/17/20 04:49 Andrés Rods Not Reportable 10/17/20 04:49 Platelet Estimate Consistent w auto 10/17/20 04:49 Clumped Platelets Not Reportable 10/17/20 04:49 Plt Clumps, EDTA Not Reportable 10/17/20 04:49 Large Platelets Not Reportable 10/17/20 04:49 Giant Platelets Rare 10/17/20 04:49 Platelet Satelliting Not Reportable 10/17/20 04:49 Plt Morphology Comment Not Reportable 10/17/20 04:49 RBC Morphology Not Reportable 10/17/20 04:49 Dimorphic RBCs Not Reportable 10/17/20 04:49 Polychromasia Not Reportable 10/17/20 04:49 Hypochromasia 2+ 10/17/20 04:49 Poikilocytosis 2+ 10/17/20 04:49 Anisocytosis 3+ 10/17/20 04:49 Microcytosis Not Reportable 10/17/20 04:49 Macrocytosis Not Reportable 10/17/20 04:49 Spherocytes Not Reportable 10/17/20 04:49 Pappenheimer Bodies Not Reportable 10/17/20 04:49 Sickle Cells Not Reportable 10/17/20 04:49 Target Cells Not Reportable 10/17/20 04:49 Tear Drop Cells Not Reportable 10/17/20 04:49 Ovalocytes Not Reportable 10/17/20 04:49 Helmet Cells Not Reportable 10/17/20 04:49 [place] Bodies Not Reportable 10/17/20 04:49 [place] Rings Not Reportable 10/17/20 04:49 [place] Cells 1+ 10/17/20 04:49 Bite Cells Not Reportable 10/17/20 04:49 Crenated Cell Not Reportable 10/17/20 04:49 Elliptocytes Not Reportable 10/17/20 04:49 Acanthocytes (Spur) Not Reportable 10/17/20 04:49 Rouleaux Not Reportable 10/17/20 04:49 Hemoglobin C Crystals Not Reportable 10/17/20 04:49 Schistocytes Not Reportable 10/17/20 04:49 Malaria parasites Not Reportable 10/17/20 04:49 Dereck Bodies Not Reportable 10/17/20 04:49 Hem Pathologist Commnt No 10/17/20 04:49 PT 23.5 Sec. (12.2-14.9) H 10/18/20 04:06 INR 2.05 (0.87-1.13) H 10/18/20 04:06 APTT 57.6 Sec. (24.2-36.6) H 10/02/20 23:17 Thrombin Time 17.8 Sec. (15.1-19.6) 10/02/20 23:17 ABG pH 7.276 (7.320-7.450) L 10/18/20 04:00 POC ABG pCO2 35.7 mmHg (32.0-48.0) 10/18/20 04:00 POC ABG pO2 77.7 mmHg (83-108) L 10/18/20 04:00 POC ABG HCO3 16.2 10/18/20 04:00 ABG O2 Saturation 95.1 (0-100) 10/18/20 04:00 POC ABG Base Excess -9.7 10/18/20 04:00 ABG Hemoglobin 7.2 (12.0-17.5) L 10/18/20 04:00 ABG Oxyhemoglobin 94.1 (94-98) 10/18/20 04:00 ABG Methemoglobin 0.3 (0.0-1.5) 10/18/20 04:00 ABG Sodium 122.6 mmol/L (136.0-145.0) L 10/18/20 04:00 ABG Potassium 3.6 mmol/L (3.40-4.50) 10/18/20 04:00 ABG Chloride 100.0 mmol/L (98-107) 10/18/20 04:00 ABG Glucose 113 mg/dL (65-95) H 10/18/20 04:00 Carboxyhemoglobin 0.8 (0.5-1.5) 10/18/20 04:00 FiO2 % 50.0 10/18/20 04:00 Sodium 123 mmol/L (137-145) L D 10/18/20 04:06 Potassium 3.9 mmol/L (3.6-5.0) 10/18/20 04:06 Chloride 97.9 mmol/L (98-107) L 10/18/20 04:06 Carbon Dioxide 16 mmol/L (22-30) L 10/18/20 04:06 Anion Gap 13 mmol/L 10/18/20 04:06 BUN 31 mg/dL (9-20) H 10/18/20 04:06 Creatinine 3.1 mg/dL (0.8-1.3) H 10/18/20 04:06 Estimated GFR 24 ml/min 10/18/20 04:06 BUN/Creatinine Ratio 10 % 10/18/20 04:06 Glucose 113 mg/dL (75-100) H 10/18/20 04:06 POC Glucose 108 mg/dL (70-105) H 10/18/20 04:13 Hemoglobin A1c 5.2 % (4-6) 10/03/20 05:57 Osmolality 267 Mosm/kg 10/07/20 13:54 Lactic Acid 1.50 mmol/L (0.7-2.0) 10/03/20 04:43 Calcium 7.4 mg/dL (8.4-10.2) L 10/18/20 04:06 Phosphorus 3.00 mg/dL (2.5-4.5) 10/06/20 05:07 Magnesium 1.90 mg/dL (1.7-2.3) 10/06/20 05:07 Iron 42 ug/dL (49-181) L 10/03/20 05:57 TIBC 305 mcg/dL (250-450) 10/03/20 05:57 Total Bilirubin 0.40 mg/dL (0.1-1.2) 10/16/20 11:14 Direct Bilirubin 0.2 mg/dL (0-0.2) 10/16/20 11:14 Indirect Bilirubin 0.2 mg/dL 10/16/20 11:14 AST 136 units/L (5-40) H 10/16/20 11:14 ALT 72 units/L (7-56) H 10/16/20 11:14 Alkaline Phosphatase 240 units/L (35-129) H 10/16/20 11:14 Ammonia 22.0 umol/L (25-60) L 10/02/20 23:17 Total Creatine Kinase 88 units/L (55-170) 10/02/20 23:17 CK-MB (CK-2) 7.5 ng/mL (0.0-4.0) H 10/02/20 23:17 CK-MB (CK-2) Rel Index 8.5 (0-4) H 10/02/20 23:17 Troponin T < 0.010 ng/mL (0.00-0.029) 10/02/20 23:17 Total Protein 5.1 g/dL (6.3-8.2) L 10/16/20 11:14 Albumin 2.1 g/dL (3.9-5) L 10/16/20 11:14 Albumin/Globulin Ratio 0.7 % 10/16/20 11:14 Lipase 17 units/L (13-60) 10/16/20 22:58 Procalcitonin 0.10 ng/mL (<0.15) 10/10/20 10:58 TSH 2.130 mlU/mL (0.270-4.200) 10/07/20 13:54 Total Cortisol 17.4 mcg/dL () 10/09/20 02:46 Arterial Blood Glucose 113 mg/dL (65-95) H 10/18/20 04:00 Arterial Blood Ionized Calcium 4.9 mg/dL (4.6-5.3) 10/17/20 04:00 Urine Eosinophils None seen (None Seen) 10/14/20 Unknown Urine Osmolality 223 Mosm/kg 10/07/20 Unknown Urine Creatinine 144.2 mg/dL (0.1-20.0) H 10/14/20 Unknown Protein/Creatinin Ratio 0.67 10/14/20 Unknown Urine Sodium 10 mmol/L 10/14/20 Unknown Urine Total Protein 97 mg/dL (5-11.8) H 10/14/20 Unknown Salicylates < 0.3 mg/dL (2.8-20.0) L 10/02/20 23:17 Acetaminophen 5.0 ug/mL (10.0-30.0) L 10/02/20 23:17 Plasma/Serum Alcohol < 0.01 % (0-0.07) 10/02/20 23:17 Coronavirus (PCR) Negative (Negative) 10/14/20 08:00 Blood Type O POSITIVE 10/03/20 05:57 Antibody Screen Negative 10/03/20 05:57 Crossmatch See Detail 10/03/20 05:57 Microbiology: Microbiology 10/15/20 Unknown Tracheal Aspirate Sputum Culture - Preliminary Munoz/IV: Voiding Method Indwelling Catheter Active Medications - Current Medications Current Medications: Generic Name Dose Route Start Last Admin Trade Name Freq PRN Reason Stop Dose Admin Acetaminophen 650 mg 10/03/20 02:10 10/06/20 15:28 Acetaminophen 325 Mg Tab PO 650 mg Q4H PRN Administration Pain MILD(1-3)/Fever >100.5/ROMERO Al Hydrox/Mg Hydrox/Simethicone 30 ml 10/03/20 02:10 Alum-Mag Hydroxide-Simethicone [id number]/5ml Oral Liqd 30 Ml PO Q4H PRN Indigestion Lipase/Protease/Amylase 1 each 10/03/20 16:51 Lipase 10,500/Protease 25,000/Amylase 43,750 (Units) Dr Reis FEEDTUBE PRN PRN For Clogged Feeding Tube Dextrose 50 ml 10/16/20 12:42 10/16/20 15:17 Dextrose 50% In Water (25gm) 50 Ml Syringe IV 50 ml Q30MIN PRN Administration Hypoglycemia Protocol Ferrous Sulfate 308 mg 10/16/20 10:00 10/17/20 10:25 Ferrous Sulfate 308 Mg (62mg Elemental Iron) / 7 Ml Elixir FEEDTUBE 308 mg DAILY JOSE Administration Folic Acid 1 mg 10/03/20 10:00 10/17/20 10:25 Folic Acid 1 Mg Tab PO 1 mg QDAY JOSE Administration Levetiracetam 250 mg/ Dextrose 102.5 mls @ 400 mls/hr 10/10/20 22:00 10/17/20 10:25 IV 400 mls/hr Q12HR JOSE Administration Vasopressin 20 unit/ Sodium 101 mls @ 9.09 mls/hr 10/16/20 13:00 10/17/20 20:14 Chloride IV 0.03 units/min TITR JOSE 9.09 mls/hr Administration Protocol 0.03 UNITS/MIN Dextrose 1,000 mls @ 125 mls/hr 10/16/20 13:00 10/17/20 20:12 D10w IV 125 mls/hr DIRECT JOSE Administration Sodium Bicarbonate 150 meq/ 1,150 mls @ 100 mls/hr 10/16/20 15:00 10/17/20 23:46 Dextrose IV 10/19/20 02:29 Infused DIRECT JOSE Infusion Phenylephrine HCl 100 mg/ 100 mls @ 3 mls/hr 10/16/20 18:00 10/17/20 23:15 Sodium Chloride IV 260 mcg/min TITR JOSE 15.6 mls/hr Titration Protocol 50 MCG/MIN NORepinephrine/NS 8 MG-250 ML 8 mg in 250 mls @ 3.75 mls/hr 10/16/20 19:00 10/18/20 03:27 Norepinephrine/Ns 8 Mg-250 Ml (Double Conc) IV 15 mcg/min TITRATE JOSE 28.125 mls/hr Administration Protocol 2 MCG/MIN Amiodarone HCl 900 mg/ 500 mls @ 16.667 mls/hr 10/16/20 20:00 10/17/20 20:13 Dextrose IV 0.5 mg/min DIRECT JOSE 16.667 mls/hr Administration Protocol 0.5 MG/MIN Dobutamine HCl/Dextrose 500 mg in 250 mls @ 6.908 mls/hr 10/16/20 19:00 10/17/20 20:11 Dobutrex Drip 500mg/D5w 250ml IV 5 mcg/kg/min DIRECT JOSE 13.815 mls/hr Administration Protocol 2.5 MCG/KG/MIN Epinephrine 8 mg/ Sodium 250 mls @ 0 mls/hr 10/16/20 23:45 10/17/20 11:33 Chloride IV 0 mls/hr TITR JOSE Infusion Cefepime HCl 2 gm in 100 mls @ 200 mls/hr 10/17/20 22:00 10/17/20 21:40 Cefepime/Ns 2 Gm/100 Ml IV 10/22/20 22:29 200 mls/hr Q24H JOSE Administration Protocol Magnesium Hydroxide 30 ml 10/03/20 02:10 Magnesium Hydroxide (Mom) Oral Liqd Udc PO Q4H PRN Constipation Metoclopramide HCl 5 mg 10/17/20 09:00 Metoclopramide 10 Mg/2 Ml Inj IV Q6H PRN Nausea And Vomiting Ondansetron HCl 4 mg 10/03/20 02:10 10/07/20 23:19 Ondansetron 4 Mg/2 Ml Inj IV 4 mg Q8H PRN Administration Nausea And Vomiting Pantoprazole Sodium 40 mg 10/04/20 15:00 10/17/20 10:25 Pantoprazole 40 Mg Inj IV 40 mg QDAY JOSE Administration Promethazine HCl 25 mg 10/03/20 02:10 Promethazine 25 Mg Rect Supp HI Q6H PRN N/V IF NPO AND NO IV ACCESS Senna 8.6 mg 10/03/20 02:10 Sennosides 8.6 Mg Tab PO Q12HR PRN Constipation Simple Syrup 15 ml 10/03/20 16:51 10/16/20 18:19 Simple Syrup 15 Ml FEEDTUBE 15 ml PRN PRN Administration Hypoglycemia Simple Syrup 30 ml 10/03/20 16:51 10/16/20 22:02 Simple Syrup 15 Ml FEEDTUBE 30 ml PRN PRN Administration Hypoglycemia Sodium Bicarbonate 325 mg 10/03/20 16:51 Sodium Bicarbonate 325 Mg Tab FEEDTUBE PRN PRN For Clogged Feeding Tube Nutrition/Malnutrition Assess - Dietary Evaluation Nutrition/Malnutrition Findings: Nutrition Notes Start: 10/03/20 08:51 Freq: Status: Active Protocol: Document 10/16/20 10:01 CW (Rec: 10/16/20 10:08 CW [id number]) Nutrition Notes Initial or Follow up Reassessment Current Diagnosis Diabetes Other Pertinent Diagnosis AMS, hypothermia, pneu, anemia , atherosclerotic cerebrovascular disease Current Diet Nepro at 40 ml/hr Labs/Tests Na 136 BUN 29 Cr 2 BG 126 Pertinent Medications Lasix folic acid Height 5 ft 10 in Weight 92.1 kg Andrews Body Weight (kg) 75.45 BMI 29.1 Weight change and time frame wt change anticpated related to fluid Weight Status Overweight Subjective/Other Information PEG placement on hold via GI. Per notes TF was running at goal then held d/t suspected aspiration. TF has been restarted at 20 ml/hr. Percent of energy/protein needs met: 50%/50% Burn Absent Trauma Absent Difficulty In Swallowing Current % PO Negligible Minimum of two criteria No Fluid Accumulation Moderate to Severe (severe) #1 Nutrition Diagnosis Swallowing difficulty Diagnosis Progress(for reassessment Continues documentation) Is patient on ventilator? No Is Patient Ambulatory and/or Out of Bed No REE-([facility]-confined to bed) 1993.892 Kcal/Kg value to use for calculation 20 Approximate Energy Requirements Using 1842 kcal/Kg Calculation Used for Recommendations Kcal/kg Additional Notes Protein: (1-1.2g/kg) 84-101g Fluid: 1 ml/kcal Nutrition Intervention Change Diet Order: restart TF when medically feasible Nutrition Support: Nepro at 40ml/hour For hyponatremia flush 75 ml q4h, once resolved resume flush at 170 ml q4h Kcal 1,728 Protein (gm) 78 Fluid (mL) 698 Goal #1 Meet at least 75% of protein and energy needs via TF Anticipated Discharge Needs: continue TF regimen Follow-Up By: 10/18/20 Additional Comments F/U TF tolerance/ POC
--- NOTE | 2020-10-17 14:14 | Consultation ---
History of Present Illness Consult date: 10/17/20 Requesting physician: GUSTAVO WATSON Consult reason: atrial fibrillation History of present illness: Patient is a 74 year old male who presented to the ED on 10/03/2020 for AMS and left sided weakness. Patient is previously unknown to our practice. Patient was found in his bed incontinent of feces/urine. At the time patient was unable to answer questions due to his mental status. At time of interview patient is intubated and history is taken from the chart. During hospital workup CT of the head no acute finding but showed a cerebral atrophy with suspicious atrophy and atherosclerotic calcification within the distal right middle cerebral artery. Patient was intubated for respiratory distress and transferred to ICU on 10/15/2020. Cardiology has been consulted for afib/aflutter. Past History Past Medical History: GERD Past Surgical History: No surgical history Social history: no significant social history, alcohol abuse (Per patient his) Family history: no significant family history (Unable to get information from the patient secondary to altered mental status) Medications and Allergies Allergies Allergy/AdvReac Type Severity Reaction Status Date / Time No Known Allergies Allergy Unverified 10/03/20 12:27 Home Medications Medication Instructions Recorded Confirmed Last Taken Type Unobtainable 10/10/20 10/10/20 Unknown History Active Meds: Active Medications Acetaminophen (Acetaminophen 325 Mg Tab) 650 mg PO Q4H PRN PRN Reason: Pain MILD(1-3)/Fever >100.5/ROMERO Last Admin: 10/06/20 15:28 Dose: 650 mg Documented by: Al Hydrox/Mg Hydrox/Simethicone (Alum-Mag Hydroxide-Simethicone [phone]/5ml Oral Liqd 30 Ml) 30 ml PO Q4H PRN PRN Reason: Indigestion Lipase/Protease/Amylase (Lipase 10,500/Protease 25,000/Amylase 43,750 (Units) Dr Reis) 1 each FEEDTUBE PRN PRN PRN Reason: For Clogged Feeding Tube Dextrose (Dextrose 50% In Water (25gm) 50 Ml Syringe) 50 ml IV Q30MIN PRN; Protocol PRN Reason: Hypoglycemia Last Admin: 10/16/20 15:17 Dose: 50 ml Documented by: Ferrous Sulfate (Ferrous Sulfate 308 Mg (62mg Elemental Iron) / 7 Ml Elixir) 308 mg FEEDTUBE DAILY JOSE Last Admin: 10/17/20 10:25 Dose: 308 mg Documented by: Folic Acid (Folic Acid 1 Mg Tab) 1 mg PO QDAY JOSE Last Admin: 10/17/20 10:25 Dose: 1 mg Documented by: Levetiracetam 250 mg/ Dextrose 102.5 mls @ 400 mls/hr IV Q12HR JOSE Last Admin: 10/17/20 10:25 Dose: 400 mls/hr Documented by: Vasopressin 20 unit/ Sodium (Chloride) 101 mls @ 9.09 mls/hr IV TITR JOSE; Protocol Last Admin: 10/17/20 10:34 Dose: 0.03 units/min, 9.09 mls/hr Documented by: Dextrose (D10w) 1,000 mls @ 125 mls/hr IV DIRECT JOSE Last Admin: 10/17/20 12:21 Dose: 125 mls/hr Documented by: Sodium Bicarbonate 150 meq/ (Dextrose) 1,150 mls @ 100 mls/hr IV DIRECT JOSE Stop: 10/19/20 02:29 Last Admin: 10/17/20 12:16 Dose: 100 mls/hr Documented by: Phenylephrine HCl 100 mg/ (Sodium Chloride) 100 mls @ 3 mls/hr IV TITR JOSE; Protocol Last Titration: 10/17/20 13:45 Dose: 340 mcg/min, 20.4 mls/hr Documented by: NORepinephrine/NS 8 MG-250 ML (Norepinephrine/Ns 8 Mg-250 Ml (Double Conc)) 8 mg in 250 mls @ 3.75 mls/hr IV TITRATE JOSE; Protocol Last Titration: 10/17/20 13:17 Dose: 22 mcg/min, 41.25 mls/hr Documented by: Amiodarone HCl 900 mg/ (Dextrose) 500 mls @ 16.667 mls/hr IV DIRECT JOSE; Protocol Last Admin: 10/16/20 19:30 Dose: 0.5 mg/min, 16.667 mls/hr Documented by: Dobutamine HCl/Dextrose (Dobutrex Drip 500mg/D5w 250ml) 500 mg in 250 mls @ 6.908 mls/hr IV DIRECT JOSE; Protocol Last Infusion: 10/16/20 21:03 Dose: 5 mcg/kg/min, 13.815 mls/hr Documented by: Epinephrine 8 mg/ Sodium (Chloride) 250 mls @ 0 mls/hr IV TITR JOSE Last Infusion: 10/17/20 11:33 Dose: 0 mls/hr Documented by: Cefepime HCl (Cefepime/Ns 2 Gm/100 Ml) 2 gm in 100 mls @ 200 mls/hr IV Q24H JOSE; Protocol Stop: 10/22/20 22:29 Magnesium Hydroxide (Magnesium Hydroxide (Mom) Oral Liqd Udc) 30 ml PO Q4H PRN PRN Reason: Constipation Metoclopramide HCl (Metoclopramide 10 Mg/2 Ml Inj) 5 mg IV Q6H PRN PRN Reason: Nausea And Vomiting Ondansetron HCl (Ondansetron 4 Mg/2 Ml Inj) 4 mg IV Q8H PRN PRN Reason: Nausea And Vomiting Last Admin: 10/07/20 23:19 Dose: 4 mg Documented by: Pantoprazole Sodium (Pantoprazole 40 Mg Inj) 40 mg IV QDAY [facility] Last Admin: 10/17/20 10:25 Dose: 40 mg Documented by: Promethazine HCl (Promethazine 25 Mg Rect Supp) 25 mg WA Q6H PRN PRN Reason: N/V IF NPO AND NO IV ACCESS Senna (Sennosides 8.6 Mg Tab) 8.6 mg PO Q12HR PRN PRN Reason: Constipation Simple Syrup (Simple Syrup 15 Ml) 15 ml FEEDTUBE PRN PRN PRN Reason: Hypoglycemia Last Admin: 10/16/20 18:19 Dose: 15 ml Documented by: Simple Syrup (Simple Syrup 15 Ml) 30 ml FEEDTUBE PRN PRN PRN Reason: Hypoglycemia Last Admin: 10/16/20 22:02 Dose: 30 ml Documented by: Sodium Bicarbonate (Sodium Bicarbonate 325 Mg Tab) 325 mg FEEDTUBE PRN PRN PRN Reason: For Clogged Feeding Tube Review of Systems ROS unobtainable: due to endotracheal tube, due to mental status Physical Examination Vital Signs Temp Pulse Resp BP Pulse Ox 90.1 F L 98 H 16 128/75 99 10/03/20 00:39 10/03/20 00:39 10/03/20 00:39 10/03/20 00:39 10/03/20 00:39 General appearance: other (intubatb) HEENT: Positive: Mucus Membranes Dry Neck: Positive: trachea midline Cardiac: Positive: Reg Rate and Rhythm Lungs: Positive: Ventilated Respirations Neuro: Positive: Other (intubated) Abdomen: Positive: Soft Skin: Negative: Rash Extremities: Present: upper extr. pulses, lower extr. pulses, edema Results 10/17/20 04:49 10/17/20 04:49 CBC 10/17/20 Range/Units 04:49 WBC 17.7 H (4.5-11.0) K/mm3 RBC 3.21 L (3.65-5.03) M/mm3 Hgb 7.5 L (11.8-15.2) gm/dl Hct 25.4 L (35.5-45.6) % Plt Count 40 L (140-440) K/mm3 Comprehensive Metabolic Panel 10/16/20 10/17/20 Range/Units 22:58 04:49 Sodium 133 L 133 L (137-145) mmol/L Potassium 3.5 L 3.3 L (3.6-5.0) mmol/L Chloride 107.7 H 104.9 (98-107) mmol/L Carbon Dioxide 15 L 15 L (22-30) mmol/L BUN 29 H 29 H (9-20) mg/dL Creatinine 2.6 H 2.7 H (0.8-1.3) mg/dL Glucose 90 138 H (75-100) mg/dL Calcium 7.9 L 7.8 L (8.4-10.2) mg/dL - Imaging and Cardiology Echo: report reviewed EKG: report reviewed, image reviewed EKG interpretations - Telemetry EKG Rhythm: Atrial Fibrillation - EKG Supraventricular dysrhythmia: ectopic atrial rhythm, atrial premature complexe Assessment and Plan Paroxysmal Afib w/RVR Tachycardia HFrEF * ECG reveals sinus tachycardia with PACs * Repeat EKG * Telemetry today shows Sinus rhythm with episodes of Afib wth RVR into 150s * Yeserdays telemetry reveals primarily sinus rhythm with frequent PACs. In SR in the 80-100s for the majority of the day yesterday, with brief intermittent episodes of sinus tachycardia in the 150-160s. May be having very short runs of PAF * Given pt's hemodynamic instability (currently requiring multiple vasopressors), unable to start BB or non-dihydropyridine CCB * Continue Amio drip for Rate control. Monitor LFTs * Would not recommend anticoagulation currently given low AF burden and anemia/thrombocytopenia * tachycardia likely multifactorial given * echo 10/04/2020-EF 25 to 30%, right ventricle severely dilated and moderately hypokinetic, left atrium is mildly dilated, right atrium severely dilated, moderate to severe tricuspid regurgitation, moderate mitral regurgitation tricuspid annulus dilated. 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 Bang who agrees with this plan of care. Will continue to follow
[2020-10-17] MEDS: DOBUTamine/D5W 500 MG/250 ML 500 MG/250 ML BAG IV SCH (20:11)
[2020-10-17] MEDS: AMIODARONE 900 MG in DEXTROSE 5% IN WATER 482 ML IV SCH (20:13)
[2020-10-17] MEDS: CEFEPIME/NS 2 GM/100 ML 2 GM/100 ML BAG IV SCH (21:40)
[2020-10-18] MEDS: SODIUM BICARBONATE 150 MEQ in DEXTROSE 5% IN WATER 1,000 ML IV SCH (02:03)
[2020-10-18] MEDS: NORepinephrine/NS 8 MG-250 ML 8 MG/250 ML INFUS..BTL IV SCH ×2 (03:27→12:00)
[2020-10-18 05:02] LABS: Calcium 7.4 mg/dL (8.4-10.2)
[2020-10-18 05:03] LABS: INR 2.05 (0.87-1.13)
[2020-10-18] MEDS: VASOPRESSIN 20 UNIT in SODIUM CHLORIDE 0.9% 100 ML IV SCH ×2 (08:40→19:11)
[2020-10-18] MEDS: PHENYLEPHRINE 100 MG in SODIUM CHLORIDE 0.9% 90 ML IV SCH ×2 (09:13→17:49)
[2020-10-18] MEDS: levETIRAcetam 250 MG in DEXTROSE 5% IN WATER 100 ML IV SCH ×3 (09:17→22:09)
[2020-10-18] MEDS: PANTOPRAZOLE 40 MG INJ IV SCH (09:17)
[2020-10-18] MEDS: FOLIC ACID 1 MG TAB PO SCH (09:18)
[2020-10-18] MEDS: MULTIVITAMIN / MINERAL ORAL LIQUID 15 ML PO SCH (09:18)
[2020-10-18] MEDS: FERROUS SULFATE 308 MG (62mg Elemental Iron) / 7 ML ELIXIR FEEDTUBE SCH (09:18)
--- NOTE | 2020-10-18 10:53 | Electrocardiograph Report ---
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 Ventricular premature complex Low voltage, extremity and precordial leads Prolonged QT interval Compared to ECG 10/04/2020 07:58:53 Atrial fibrillation replaced sinus rhythm. Ventricular premature complex(es) now present Electronically Signed On 10-18-2020 10:53:02 EDT by Sidney Bang
--- NOTE | 2020-10-18 11:02 | Progress Note ---
Assessment and Plan Acute hypoxemic respiratory failure Bilateral pneumonia Bilateral pleural effusions Bilateral pulmonary edema Acute kidney injury Acute encephalopathy Severe protein calorie malnutrition Oropharyngeal dysphagia Anemia that is microcytic Oropharyngeal dysphagia - no anticoagulatioon re: thrombocytopenia / anemia - continue amiodarone drip - continue Dobutrex till off vasopressors - continue care as below otherwise; - wean vasopressors for MAP > 65 mmHg - VAP bundle addressed (HOB > 40 degrees) - sedation target RASS -2 to -3 acutely re: barotrauma - daily SAT's & SBT assessments as tolerated - continue glycemic control withh SSI for target BG 140-180 mg while critically ill; avoid hypoglycema - continue lung protective strategies - bronchodilators with pulmonary hygiene per RT - complete AB's per ID recommendations - avoid nephrotoxins, renally dose all medications - prn analgesia per pain score - Maintenance of sleep-wake cycle, avoid delirium - supportive transfusions for serum Hb < 7.0g/dl - G.I. & VTE prophylaxis - PT/OT/ROM exercises - continue mobility protocols for pressure ulcer prophylaxis - Monitor hemodynamics closely - continue other care per attending / other consultants - discharge planning ongoing concurrently COVID SPECIFIC INTERVENTIONS - COVID-19 test negative .... Re-evaluate in am & prn CONDITION: CRITICAL PROGNOSIS: GUARDED CODE STATUS: FULL CODE The high probability of a clinically significant, sudden or life-threatening deterioration of the [respiratory, cardiovascular, & neurologic] system(s) required my full and direct attention, intervention and personal management. The aggregate critical care time was [35] minutes without overlap. Time includes spent on; [x] Data Review and interpretation [x] Patient assessment and monitoring of vital signs [x] Documentation [x] Medication orders and management Subjective Date of service: 10/18/20 Principal diagnosis: Ac hypoxemic resp failure; Pneumonia; BETSY; Ac. encephalopathy Interval history: Patient is seen today for: Acute hypoxemic respiratory failure; Pneumonia; P leural effusions; BETSY; Acute encephalopathy; Severe protein calorie malnutrition Seen and examined at bedside; 24hour events reviewed; nursing and respiratory care staff consulted; no adverse overnight events reported to me; resting in bed; remains on MVS; hypotensive but weaning off vasopressors; dobutrex remains at 5 henrik's/min; + emesis; no high grade fevers Objective Vital Signs - 12hr 10/17/20 10/18/20 10/18/20 23:00 00:00 03:44 Temperature 98.7 F Pulse Rate 102 H 98 H 88 Pulse Rate [ 98 H From Monitor] Respiratory 30 H Rate Blood Pressure 90/67 107/51 O2 Sat by Pulse 98 93 97 Oximetry 10/18/20 10/18/20 10/18/20 04:00 07:20 08:26 Temperature 99.1 F 99.2 F Pulse Rate 99 H 98 H Pulse Rate [ 100 H From Monitor] Respiratory 30 H Rate Blood Pressure 126/64 O2 Sat by Pulse 93 100 Oximetry Constitutional: other (elderly and chronically ill looking male with mildly increased respiratory effort at rest on MVS) Eyes: non-icteric ENT: oropharynx dry, other (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0) 10/18/20 04:00 POC ABG pO2 77.7 mmHg (83-108) L 10/18/20 04:00 POC ABG HCO3 16.2 10/18/20 04:00 ABG O2 Saturation 95.1 (0-100) 10/18/20 04:00 PT/INR, D-dimer PT 23.5 Sec. (12.2-14.9) H 10/18/20 04:06 INR 2.05 (0.87-1.13) H 10/18/20 04:06 Abnormal lab findings: Abnormal Labs 10/02/20 10/02/20 10/02/20 23:17 23:17 23:17 WBC RBC 3.31 L Hgb 6.7 L Hct 21.8 L MCV 66 L MCH 20 L MCHC 31 L RDW 31.7 H Plt Count Pepin % (Auto) Pepin # (Auto) Seg Neutrophils % Seg Neuts % (Manual) 79.0 H Lymphocytes % (Manual) 11.0 L Monocytes % (Manual) 10.0 H Basophils % (Manual) Nucleated RBC % Seg Neutrophils # Seg Neutrophils # Man Lymphocytes # (Manual) 0.9 L Monocytes # (Manual) Basophils # (Manual) PT 20.8 H INR 1.74 H APTT 57.6 H ABG pH POC ABG pCO2 POC ABG pO2 ABG Hemoglobin ABG Oxyhemoglobin ABG Sodium ABG Potassium ABG Chloride ABG Glucose Sodium Potassium Chloride Carbon Dioxide BUN Creatinine Glucose 42 L POC Glucose Lactic Acid Calcium Iron AST ALT Alkaline Phosphatase Ammonia CK-MB (CK-2) 7.5 H CK-MB (CK-2) Rel Index 8.5 H Total Protein Albumin 2.9 L Arterial Blood Glucose Urine Creatinine Urine Total Protein Salicylates Acetaminophen Crossmatch 10/02/20 10/02/20 10/02/20 23:17 23:17 23:17 WBC RBC Hgb Hct MCV MCH MCHC RDW Plt Count Pepin % (Auto) Pepin # (Auto) Seg Neutrophils % Seg Neuts % (Manual) Lymphocytes % (Manual) Monocytes % (Manual) Basophils % (Manual) Nucleated RBC % Seg Neutrophils # Seg Neutrophils # Man Lymphocytes # (Manual) Monocytes # (Manual) Basophils # (Manual) PT INR APTT ABG pH POC ABG pCO2 POC ABG pO2 ABG Hemoglobin ABG Oxyhemoglobin ABG Sodium ABG Potassium ABG Chloride ABG Glucose Sodium Potassium Chloride Carbon Dioxide BUN Creatinine Glucose POC Glucose Lactic Acid 2.20 H* Calcium Iron AST ALT Alkaline Phosphatase Ammonia 22.0 L CK-MB (CK-2) CK-MB (CK-2) Rel Index Total Protein Albumin Arterial Blood Glucose Urine Creatinine Urine Total Protein Salicylates < 0.3 L Acetaminophen Crossmatch 10/02/20 10/03/20 10/03/20 23:17 05:57 05:57 WBC RBC 2.66 L Hgb 5.3 L* Hct 17.8 L* MCV 67 L MCH 20 L MCHC 30 L RDW 32.1 H Plt Count Pepin % (Auto) Pepin # (Auto) Seg Neutrophils % Seg Neuts % (Manual) Lymphocytes % (Manual) 2.0 L Monocytes % (Manual) Basophils % (Manual) Nucleated RBC % 1.0 H Seg Neutrophils # Seg Neutrophils # Man 8.6 H Lymphocytes # (Manual) 0.2 L Monocytes # (Manual) Basophils # (Manual) PT INR APTT ABG pH POC ABG pCO2 POC ABG pO2 ABG Hemoglobin ABG Oxyhemoglobin ABG Sodium ABG Potassium ABG Chloride ABG Glucose Sodium Potassium Chloride Carbon Dioxide BUN Creatinine Glucose POC Glucose Lactic Acid Calcium Iron AST ALT Alkaline Phosphatase Ammonia CK-MB (CK-2) CK-MB (CK-2) Rel Index Total Protein Albumin Arterial Blood Glucose Urine Creatinine Urine Total Protein Salicylates Acetaminophen 5.0 L Crossmatch See Detail 10/03/20 10/03/20 10/03/20 05:57 05:57 06:00 WBC RBC Hgb Hct MCV MCH MCHC RDW Plt Count Pepin % (Auto) Pepin # (Auto) Seg Neutrophils % Seg Neuts % (Manual) Lymphocytes % (Manual) Monocytes % (Manual) Basophils % (Manual) Nucleated RBC % Seg Neutrophils # Seg Neutrophils # Man Lymphocytes # (Manual) Monocytes # (Manual) Basophils # (Manual) PT INR APTT ABG pH POC ABG pCO2 POC ABG pO2 ABG Hemoglobin ABG Oxyhemoglobin ABG Sodium ABG Potassium ABG Chloride ABG Glucose Sodium Potassium Chloride Carbon Dioxide BUN Creatinine Glucose 52 L POC Glucose 31 L Lactic Acid Calcium Iron 42 L AST ALT Alkaline Phosphatase Ammonia CK-MB (CK-2) CK-MB (CK-2) Rel Index Total Protein 5.8 L Albumin 3.1 L Arterial Blood Glucose Urine Creatinine Urine Total Protein Salicylates Acetaminophen Crossmatch 10/03/20 10/03/20 10/03/20 07:34 09:43 10:57 WBC RBC Hgb Hct MCV MCH MCHC RDW Plt Count Pepin % (Auto) Pepin # (Auto) Seg Neutrophils % Seg Neuts % (Manual) Lymphocytes % (Manual) Monocytes % (Manual) Basophils % (Manual) Nucleated RBC % Seg Neutrophils # Seg Neutrophils # Man Lymphocytes # (Manual) Monocytes # (Manual) Basophils # (Manual) PT INR APTT ABG pH POC ABG pCO2 POC ABG pO2 ABG Hemoglobin ABG Oxyhemoglobin ABG Sodium ABG Potassium ABG Chloride ABG Glucose Sodium Potassium Chloride Carbon Dioxide BUN Creatinine Glucose POC Glucose 59 L 41 L 31 L Lactic Acid Calcium Iron AST ALT Alkaline Phosphatase Ammonia CK-MB (CK-2) CK-MB (CK-2) Rel Index Total Protein Albumin Arterial Blood Glucose Urine Creatinine Urine Total Protein Salicylates Acetaminophen Crossmatch 10/03/20 10/03/20 10/03/20 11:21 12:00 12:14 WBC RBC Hgb Hct MCV MCH MCHC RDW Plt Count Pepin % (Auto) Pepin # (Auto) Seg Neutrophils % Seg Neuts % (Manual) Lymphocytes % (Manual) Monocytes % (Manual) Basophils % (Manual) Nucleated RBC % Seg Neutrophils # Seg Neutrophils # Man Lymphocytes # (Manual) Monocytes # (Manual) Basophils # (Manual) PT INR APTT ABG pH POC ABG pCO2 POC ABG pO2 ABG Hemoglobin ABG Oxyhemoglobin ABG Sodium ABG Potassium ABG Chloride ABG Glucose Sodium Potassium Chloride Carbon Dioxide BUN Creatinine Glucose POC Glucose 62 L 26 L 140 H Lactic Acid Calcium Iron AST ALT Alkaline Phosphatase Ammonia CK-MB (CK-2) CK-MB (CK-2) Rel Index Total Protein Albumin Arterial Blood Glucose Urine Creatinine Urine Total Protein Salicylates Acetaminophen Crossmatch 10/03/20 10/03/20 10/03/20 13:33 14:19 14:59 WBC RBC Hgb Hct MCV MCH MCHC RDW Plt Count Pepin % (Auto) Pepin # (Auto) Seg Neutrophils % Seg Neuts % (Manual) Lymphocytes % (Manual) Monocytes % (Manual) Basophils % (Manual) Nucleated RBC % Seg Neutrophils # Seg Neutrophils # Man Lymphocytes # (Manual) Monocytes # (Manual) Basophils # (Manual) PT INR APTT ABG pH POC ABG pCO2 POC ABG pO2 ABG Hemoglobin ABG Oxyhemoglobin ABG Sodium ABG Potassium ABG Chloride ABG Glucose Sodium Potassium Chloride Carbon Dioxide BUN Creatinine Glucose POC Glucose 24 L 59 L 40 L Lactic Acid Calcium Iron AST ALT Alkaline Phosphatase Ammonia CK-MB (CK-2) CK-MB (CK-2) Rel Index Total Protein Albumin Arterial Blood Glucose Urine Creatinine Urine Total Protein Salicylates Acetaminophen Crossmatch 10/03/20 10/03/20 10/03/20 15:26 15:57 16:35 WBC RBC Hgb Hct MCV MCH MCHC RDW Plt Count Pepin % (Auto) Pepin # (Auto) Seg Neutrophils % Seg Neuts % (Manual) Lymphocytes % (Manual) Monocytes % (Manual) Basophils % (Manual) Nucleated RBC % Seg Neutrophils # Seg Neutrophils # Man Lymphocytes # (Manual) Monocytes # (Manual) Basophils # (Manual) PT INR APTT ABG pH POC ABG pCO2 POC ABG pO2 ABG Hemoglobin ABG Oxyhemoglobin ABG Sodium ABG Potassium ABG Chloride ABG Glucose Sodium Potassium Chloride Carbon Dioxide BUN Creatinine Glucose POC Glucose 54 L 45 L 42 L Lactic Acid Calcium Iron AST ALT Alkaline Phosphatase Ammonia CK-MB (CK-2) CK-MB (CK-2) Rel Index Total Protein Albumin Arterial Blood Glucose Urine Creatinine Urine Total Protein Salicylates Acetaminophen Crossmatch 10/03/20 10/03/20 10/03/20 17:16 18:37 19:56 WBC RBC Hgb Hct MCV MCH MCHC RDW Plt Count Pepin % (Auto) Pepin # (Auto) Seg Neutrophils % Seg Neuts % (Manual) Lymphocytes % (Manual) Monocytes % (Manual) Basophils % (Manual) Nucleated RBC % Seg Neutrophils # Seg Neutrophils # Man Lymphocytes # (Manual) Monocytes # (Manual) Basophils # (Manual) PT INR APTT ABG pH POC ABG pCO2 POC ABG pO2 ABG Hemoglobin ABG Oxyhemoglobin ABG Sodium ABG Potassium ABG Chloride ABG Glucose Sodium Potassium Chloride Carbon Dioxide BUN Creatinine Glucose POC Glucose 41 L 46 L 57 L Lactic Acid Calcium Iron AST ALT Alkaline Phosphatase Ammonia CK-MB (CK-2) CK-MB (CK-2) Rel Index Total Protein Albumin Arterial Blood Glucose Urine Creatinine Urine Total Protein Salicylates Acetaminophen Crossmatch 10/03/20 10/04/20 10/04/20 21:32 01:04 01:11 WBC RBC Hgb 9.6 L D Hct 28.3 L D MCV MCH MCHC RDW Plt Count Pepin % (Auto) Pepin # (Auto) Seg Neutrophils % Seg Neuts % (Manual) Lymphocytes % (Manual) Monocytes % (Manual) Basophils % (Manual) Nucleated RBC % Seg Neutrophils # Seg Neutrophils # Man Lymphocytes # (Manual) Monocytes # (Manual) Basophils # (Manual) PT INR APTT ABG pH POC ABG pCO2 POC ABG pO2 ABG Hemoglobin ABG Oxyhemoglobin ABG Sodium ABG Potassium ABG Chloride ABG Glucose Sodium Potassium Chloride Carbon Dioxide BUN Creatinine Glucose POC Glucose 65 L 51 L Lactic Acid Calcium Iron AST ALT Alkaline Phosphatase Ammonia CK-MB (CK-2) CK-MB (CK-2) Rel Index Total Protein Albumin Arterial Blood Glucose Urine Creatinine Urine Total Protein Salicylates Acetaminophen Crossmatch 10/04/20 10/04/20 10/04/20 05:59 05:59 15:10 WBC 13.4 H RBC Hgb 9.9 L 10.1 L Hct 32.0 L 31.8 L MCV 76 L MCH 24 L MCHC 31 L RDW 31.3 H Plt Count Pepin % (Auto) Pepin # (Auto) Seg Neutrophils % Seg Neuts % (Manual) 86.0 H Lymphocytes % (Manual) 6.0 L Monocytes % (Manual) 8.0 H Basophils % (Manual) Nucleated RBC % 2.0 H Seg Neutrophils # Seg Neutrophils # Man 11.5 H Lymphocytes # (Manual) 0.8 L Monocytes # (Manual) 1.1 H Basophils # (Manual) PT INR APTT ABG pH POC ABG pCO2 POC ABG pO2 ABG Hemoglobin ABG Oxyhemoglobin ABG Sodium ABG Potassium ABG Chloride ABG Glucose Sodium 136 L Potassium 3.5 L Chloride Carbon Dioxide 19 L D BUN Creatinine Glucose POC Glucose Lactic Acid Calcium Iron AST ALT Alkaline Phosphatase Ammonia CK-MB (CK-2) CK-MB (CK-2) Rel Index Total Protein Albumin 2.6 L Arterial Blood Glucose Urine Creatinine Urine Total Protein Salicylates Acetaminophen Crossmatch 10/04/20 10/04/20 10/05/20 16:28 22:33 04:43 WBC RBC Hgb 10.5 L Hct 32.5 L MCV MCH MCHC RDW Plt Count Pepin % (Auto) Pepin # (Auto) Seg Neutrophils % Seg Neuts % (Manual) Lymphocytes % (Manual) Monocytes % (Manual) Basophils % (Manual) Nucleated RBC % Seg Neutrophils # Seg Neutrophils # Man Lymphocytes # (Manual) Monocytes # (Manual) Basophils # (Manual) PT INR APTT ABG pH POC ABG pCO2 POC ABG pO2 ABG Hemoglobin ABG Oxyhemoglobin ABG Sodium ABG Potassium ABG Chloride ABG Glucose Sodium Potassium Chloride Carbon Dioxide BUN Creatinine Glucose POC Glucose 66 L 113 H Lactic Acid Calcium Iron AST ALT Alkaline Phosphatase Ammonia CK-MB (CK-2) CK-MB (CK-2) Rel Index Total Protein Albumin Arterial Blood Glucose Urine Creatinine Urine Total Protein Salicylates Acetaminophen Crossmatch 10/05/20 10/05/20 10/05/20 05:00 09:42 11:57 WBC RBC Hgb 9.8 L Hct 30.5 L MCV 74 L MCH 24 L MCHC RDW 31.6 H Plt Count Pepin % (Auto) Pepin # (Auto) Seg Neutrophils % Seg Neuts % (Manual) Lymphocytes % (Manual) Monocytes % (Manual) Basophils % (Manual) Nucleated RBC % Seg Neutrophils # Seg Neutrophils # Man Lymphocytes # (Manual) Monocytes # (Manual) Basophils # (Manual) PT INR APTT ABG pH POC ABG pCO2 POC ABG pO2 ABG Hemoglobin ABG Oxyhemoglobin ABG Sodium ABG Potassium ABG Chloride ABG Glucose Sodium 132 L Potassium 3.5 L Chloride Carbon Dioxide 19 L BUN Creatinine 0.7 L Glucose POC Glucose 129 H Lactic Acid Calcium Iron AST ALT Alkaline Phosphatase Ammonia CK-MB (CK-2) CK-MB (CK-2) Rel Index Total Protein Albumin Arterial Blood Glucose Urine Creatinine Urine Total Protein Salicylates Acetaminophen Crossmatch 10/05/20 10/05/20 10/06/20 16:47 21:51 05:07 WBC RBC Hgb 9.4 L Hct 30.1 L MCV 76 L MCH 24 L MCHC 31 L RDW 31.1 H Plt Count Pepin % (Auto) Pepin # (Auto) Seg Neutrophils % Seg Neuts % (Manual) Lymphocytes % (Manual) Monocytes % (Manual) Basophils % (Manual) Nucleated RBC % Seg Neutrophils # Seg Neutrophils # Man Lymphocytes # (Manual) Monocytes # (Manual) Basophils # (Manual) PT INR APTT ABG pH POC ABG pCO2 POC ABG pO2 ABG Hemoglobin ABG Oxyhemoglobin ABG Sodium ABG Potassium ABG Chloride ABG Glucose Sodium Potassium Chloride Carbon Dioxide BUN Creatinine Glucose POC Glucose 132 H 115 H Lactic Acid Calcium Iron AST ALT Alkaline Phosphatase Ammonia CK-MB (CK-2) CK-MB (CK-2) Rel Index Total Protein Albumin Arterial Blood Glucose Urine Creatinine Urine Total Protein Salicylates Acetaminophen Crossmatch 10/06/20 10/06/20 10/06/20 05:07 15:37 21:01 WBC RBC Hgb Hct MCV MCH MCHC RDW Plt Count Pepin % (Auto) Pepin # (Auto) Seg Neutrophils % Seg Neuts % (Manual) Lymphocytes % (Manual) Monocytes % (Manual) Basophils % (Manual) Nucleated RBC % Seg Neutrophils # Seg Neutrophils # Man Lymphocytes # (Manual) Monocytes # (Manual) Basophils # (Manual) PT INR APTT ABG pH POC ABG pCO2 POC ABG pO2 ABG Hemoglobin ABG Oxyhemoglobin ABG Sodium ABG Potassium ABG Chloride ABG Glucose Sodium 133 L Potassium 3.5 L Chloride Carbon Dioxide 21 L BUN Creatinine 0.6 L Glucose 105 H POC Glucose 136 H 108 H Lactic Acid Calcium Iron AST ALT Alkaline Phosphatase Ammonia CK-MB (CK-2) CK-MB (CK-2) Rel Index Total Protein Albumin Arterial Blood Glucose Urine Creatinine Urine Total Protein Salicylates Acetaminophen Crossmatch 10/07/20 10/07/20 10/07/20 04:52 04:52 06:07 WBC RBC Hgb 9.6 L Hct 29.4 L MCV 73 L MCH 24 L MCHC RDW 32.2 H Plt Count Pepin % (Auto) Pepin # (Auto) Seg Neutrophils % Seg Neuts % (Manual) Lymphocytes % (Manual) Monocytes % (Manual) Basophils % (Manual) Nucleated RBC % Seg Neutrophils # Seg Neutrophils # Man Lymphocytes # (Manual) Monocytes # (Manual) Basophils # (Manual) PT INR APTT ABG pH POC ABG pCO2 POC ABG pO2 ABG Hemoglobin ABG Oxyhemoglobin ABG Sodium ABG Potassium ABG Chloride ABG Glucose Sodium 128 L Potassium Chloride Carbon Dioxide 20 L BUN Creatinine 0.7 L Glucose POC Glucose 110 H Lactic Acid Calcium Iron AST ALT Alkaline Phosphatase Ammonia CK-MB (CK-2) CK-MB (CK-2) Rel Index Total Protein Albumin Arterial Blood Glucose Urine Creatinine Urine Total Protein Salicylates Acetaminophen Crossmatch 10/07/20 10/07/20 10/07/20 17:09 18:53 20:35 WBC RBC Hgb Hct MCV MCH MCHC RDW Plt Count Pepin % (Auto) Pepin # (Auto) Seg Neutrophils % Seg Neuts % (Manual) Lymphocytes % (Manual) Monocytes % (Manual) Basophils % (Manual) Nucleated RBC % Seg Neutrophils # Seg Neutrophils # Man Lymphocytes # (Manual) Monocytes # (Manual) Basophils # (Manual) PT INR APTT ABG pH POC ABG pCO2 POC ABG pO2 ABG Hemoglobin ABG Oxyhemoglobin ABG Sodium ABG Potassium ABG Chloride ABG Glucose Sodium Potassium Chloride Carbon Dioxide BUN Creatinine Glucose POC Glucose 67 L 66 L 62 L Lactic Acid Calcium Iron AST ALT Alkaline Phosphatase Ammonia CK-MB (CK-2) CK-MB (CK-2) Rel Index Total Protein Albumin Arterial Blood Glucose Urine Creatinine Urine Total Protein Salicylates Acetaminophen Crossmatch 10/07/20 10/08/20 10/08/20 21:55 05:00 05:00 WBC RBC Hgb 9.6 L Hct 29.4 L MCV 73 L MCH 24 L MCHC RDW 32.4 H Plt Count Pepin % (Auto) Pepin # (Auto) Seg Neutrophils % 80.6 H Seg Neuts % (Manual) 88.0 H Lymphocytes % (Manual) 9.0 L Monocytes % (Manual) Basophils % (Manual) Nucleated RBC % 5.0 H Seg Neutrophils # Seg Neutrophils # Man Lymphocytes # (Manual) 0.5 L Monocytes # (Manual) Basophils # (Manual) PT INR APTT ABG pH POC ABG pCO2 POC ABG pO2 ABG Hemoglobin ABG Oxyhemoglobin ABG Sodium ABG Potassium ABG Chloride ABG Glucose Sodium 126 L Potassium Chloride 96.3 L Carbon Dioxide BUN Creatinine 0.7 L Glucose POC Glucose 132 H Lactic Acid Calcium Iron AST ALT Alkaline Phosphatase Ammonia CK-MB (CK-2) CK-MB (CK-2) Rel Index Total Protein Albumin Arterial Blood Glucose Urine Creatinine Urine Total Protein Salicylates Acetaminophen Crossmatch 10/08/20 10/09/20 10/09/20 22:26 01:36 02:22 WBC RBC Hgb Hct MCV MCH MCHC RDW Plt Count Pepin % (Auto) Pepin # (Auto) Seg Neutrophils % Seg Neuts % (Manual) Lymphocytes % (Manual) Monocytes % (Manual) Basophils % (Manual) Nucleated RBC % Seg Neutrophils # Seg Neutrophils # Man Lymphocytes # (Manual) Monocytes # (Manual) Basophils # (Manual) PT INR APTT ABG pH POC ABG pCO2 POC ABG pO2 ABG Hemoglobin ABG Oxyhemoglobin ABG Sodium ABG Potassium ABG Chloride ABG Glucose Sodium Potassium Chloride Carbon Dioxide BUN Creatinine Glucose POC Glucose 63 L 62 L 151 H Lactic Acid Calcium Iron AST ALT Alkaline Phosphatase Ammonia CK-MB (CK-2) CK-MB (CK-2) Rel Index Total Protein Albumin Arterial Blood Glucose Urine Creatinine Urine Total Protein Salicylates Acetaminophen Crossmatch 10/09/20 10/09/20 10/09/20 05:07 05:42 06:32 WBC RBC Hgb 10.3 L Hct 33.8 L MCV 77 L MCH 24 L MCHC 31 L RDW 33.6 H Plt Count 137 L Pepin % (Auto) Pepin # (Auto) Seg Neutrophils % Seg Neuts % (Manual) 89.0 H Lymphocytes % (Manual) 5.0 L Monocytes % (Manual) Basophils % (Manual) Nucleated RBC % 4.0 H Seg Neutrophils # Seg Neutrophils # Man 9.4 H Lymphocytes # (Manual) 0.5 L Monocytes # (Manual) Basophils # (Manual) PT INR APTT ABG pH POC ABG pCO2 POC ABG pO2 ABG Hemoglobin ABG Oxyhemoglobin ABG Sodium ABG Potassium ABG Chloride ABG Glucose Sodium 126 L Potassium Chloride 97.8 L Carbon Dioxide 20 L BUN Creatinine Glucose 58 L POC Glucose 48 L Lactic Acid Calcium Iron AST ALT Alkaline Phosphatase Ammonia CK-MB (CK-2) CK-MB (CK-2) Rel Index Total Protein Albumin Arterial Blood Glucose Urine Creatinine Urine Total Protein Salicylates Acetaminophen Crossmatch 10/09/20 10/10/20 10/10/20 06:35 00:21 05:53 WBC RBC Hgb Hct MCV MCH MCHC RDW Plt Count Pepin % (Auto) Pepin # (Auto) Seg Neutrophils % Seg Neuts % (Manual) Lymphocytes % (Manual) Monocytes % (Manual) Basophils % (Manual) Nucleated RBC % Seg Neutrophils # Seg Neutrophils # Man Lymphocytes # (Manual) Monocytes # (Manual) Basophils # (Manual) PT INR APTT ABG pH POC ABG pCO2 POC ABG pO2 ABG Hemoglobin ABG Oxyhemoglobin ABG Sodium ABG Potassium ABG Chloride ABG Glucose Sodium Potassium Chloride Carbon Dioxide BUN Creatinine Glucose POC Glucose 106 H 153 H 34 L Lactic Acid Calcium Iron AST ALT Alkaline Phosphatase Ammonia CK-MB (CK-2) CK-MB (CK-2) Rel Index Total Protein Albumin Arterial Blood Glucose Urine Creatinine Urine Total Protein Salicylates Acetaminophen Crossmatch 10/10/20 10/10/20 10/10/20 10:58 10:58 12:39 WBC RBC Hgb 10.3 L Hct 33.9 L MCV 78 L MCH 24 L MCHC 30 L RDW 33.2 H Plt Count 135 L Pepin % (Auto) Pepin # (Auto) Seg Neutrophils % Seg Neuts % (Manual) 74.0 H Lymphocytes % (Manual) 12.0 L Monocytes % (Manual) 9.0 H Basophils % (Manual) 2.0 H Nucleated RBC % Seg Neutrophils # Seg Neutrophils # Man Lymphocytes # (Manual) 1.0 L Monocytes # (Manual) Basophils # (Manual) 0.2 H PT INR APTT ABG pH POC ABG pCO2 POC ABG pO2 ABG Hemoglobin ABG Oxyhemoglobin ABG Sodium ABG Potassium ABG Chloride ABG Glucose Sodium 127 L Potassium Chloride Carbon Dioxide 20 L BUN 23 H Creatinine Glucose POC Glucose 108 H Lactic Acid Calcium Iron AST ALT Alkaline Phosphatase Ammonia CK-MB (CK-2) CK-MB (CK-2) Rel Index Total Protein Albumin Arterial Blood Glucose Urine Creatinine Urine Total Protein Salicylates Acetaminophen Crossmatch 10/10/20 10/11/20 10/11/20 16:51 04:56 05:51 WBC RBC Hgb 9.5 L Hct 31.3 L MCV 77 L MCH 23 L MCHC 30 L RDW 33.7 H Plt Count Pepin % (Auto) Pepin # (Auto) Seg Neutrophils % Seg Neuts % (Manual) 95.0 H Lymphocytes % (Manual) 2.0 L Monocytes % (Manual) Basophils % (Manual) Nucleated RBC % 3.0 H Seg Neutrophils # Seg Neutrophils # Man 8.0 H Lymphocytes # (Manual) 0.2 L Monocytes # (Manual) Basophils # (Manual) PT INR APTT ABG pH POC ABG pCO2 POC ABG pO2 ABG Hemoglobin ABG Oxyhemoglobin ABG Sodium ABG Potassium ABG Chloride ABG Glucose Sodium Potassium Chloride Carbon Dioxide BUN Creatinine Glucose POC Glucose 142 H 124 H Lactic Acid Calcium Iron AST ALT Alkaline Phosphatase Ammonia CK-MB (CK-2) CK-MB (CK-2) Rel Index Total Protein Albumin Arterial Blood Glucose Urine Creatinine Urine Total Protein Salicylates Acetaminophen Crossmatch 10/11/20 10/11/20 10/12/20 05:51 11:56 04:53 WBC RBC Hgb 9.5 L Hct 30.0 L MCV 75 L MCH 24 L MCHC RDW 32.8 H Plt Count 136 L Pepin % (Auto) Pepin # (Auto) Seg Neutrophils % Seg Neuts % (Manual) 89.0 H Lymphocytes % (Manual) 5.0 L Monocytes % (Manual) Basophils % (Manual) Nucleated RBC % Seg Neutrophils # Seg Neutrophils # Man Lymphocytes # (Manual) 0.4 L Monocytes # (Manual) Basophils # (Manual) PT INR APTT ABG pH POC ABG pCO2 POC ABG pO2 ABG Hemoglobin ABG Oxyhemoglobin ABG Sodium ABG Potassium ABG Chloride ABG Glucose Sodium 130 L Potassium Chloride Carbon Dioxide 18 L BUN 23 H Creatinine Glucose POC Glucose 126 H Lactic Acid Calcium Iron AST ALT Alkaline Phosphatase Ammonia CK-MB (CK-2) CK-MB (CK-2) Rel Index Total Protein Albumin Arterial Blood Glucose Urine Creatinine Urine Total Protein Salicylates Acetaminophen Crossmatch 10/12/20 10/12/20 10/12/20 04:53 11:42 23:49 WBC RBC Hgb Hct MCV MCH MCHC RDW Plt Count Pepin % (Auto) Pepin # (Auto) Seg Neutrophils % Seg Neuts % (Manual) Lymphocytes % (Manual) Monocytes % (Manual) Basophils % (Manual) Nucleated RBC % Seg Neutrophils # Seg Neutrophils # Man Lymphocytes # (Manual) Monocytes # (Manual) Basophils # (Manual) PT INR APTT ABG pH POC ABG pCO2 POC ABG pO2 ABG Hemoglobin ABG Oxyhemoglobin ABG Sodium ABG Potassium ABG Chloride ABG Glucose Sodium 130 L Potassium Chloride Carbon Dioxide 18 L BUN 25 H Creatinine Glucose 74 L POC Glucose 59 L 51 L Lactic Acid Calcium Iron AST ALT Alkaline Phosphatase Ammonia CK-MB (CK-2) CK-MB (CK-2) Rel Index Total Protein Albumin Arterial Blood Glucose Urine Creatinine Urine Total Protein Salicylates Acetaminophen Crossmatch 10/13/20 10/13/20 10/13/20 03:17 05:24 05:24 WBC RBC Hgb 9.4 L Hct 29.4 L MCV 75 L MCH 24 L MCHC RDW 32.9 H Plt Count 95 L Pepin % (Auto) Pepin # (Auto) Seg Neutrophils % Seg Neuts % (Manual) 90.0 H Lymphocytes % (Manual) Monocytes % (Manual) Basophils % (Manual) Nucleated RBC % 2.0 H Seg Neutrophils # Seg Neutrophils # Man 9.5 H Lymphocytes # (Manual) 0.0 L Monocytes # (Manual) Basophils # (Manual) PT INR APTT ABG pH POC ABG pCO2 POC ABG pO2 ABG Hemoglobin ABG Oxyhemoglobin ABG Sodium ABG Potassium ABG Chloride ABG Glucose Sodium 132 L Potassium Chloride Carbon Dioxide 17 L BUN 26 H Creatinine 1.6 H Glucose POC Glucose 67 L Lactic Acid Calcium Iron AST ALT Alkaline Phosphatase Ammonia CK-MB (CK-2) CK-MB (CK-2) Rel Index Total Protein Albumin Arterial Blood Glucose Urine Creatinine Urine Total Protein Salicylates Acetaminophen Crossmatch 10/13/20 10/14/20 10/14/20 11:36 05:04 05:04 WBC 17.4 H RBC Hgb 9.3 L Hct 29.3 L MCV 76 L MCH 24 L MCHC RDW 33.8 H Plt Count 83 L Pepin % (Auto) Pepin # (Auto) Seg Neutrophils % Seg Neuts % (Manual) 89.0 H Lymphocytes % (Manual) 4.0 L Monocytes % (Manual) Basophils % (Manual) Nucleated RBC % 1.0 H Seg Neutrophils # Seg Neutrophils # Man 15.5 H Lymphocytes # (Manual) 0.7 L Monocytes # (Manual) Basophils # (Manual) PT INR APTT ABG pH POC ABG pCO2 POC ABG pO2 ABG Hemoglobin ABG Oxyhemoglobin ABG Sodium ABG Potassium ABG Chloride ABG Glucose Sodium 132 L Potassium 5.3 H Chloride 108.7 H Carbon Dioxide 15 L BUN 25 H Creatinine 1.5 H Glucose POC Glucose 58 L Lactic Acid Calcium Iron AST ALT Alkaline Phosphatase Ammonia CK-MB (CK-2) CK-MB (CK-2) Rel Index Total Protein Albumin Arterial Blood Glucose Urine Creatinine Urine Total Protein Salicylates Acetaminophen Crossmatch 10/14/20 10/14/20 10/14/20 05:41 08:19 15:34 WBC RBC Hgb Hct MCV MCH MCHC RDW Plt Count Pepin % (Auto) Pepin # (Auto) Seg Neutrophils % Seg Neuts % (Manual) Lymphocytes % (Manual) Monocytes % (Manual) Basophils % (Manual) Nucleated RBC % Seg Neutrophils # Seg Neutrophils # Man Lymphocytes # (Manual) Monocytes # (Manual) Basophils # (Manual) PT INR APTT ABG pH POC ABG pCO2 POC ABG pO2 ABG Hemoglobin ABG Oxyhemoglobin ABG Sodium ABG Potassium ABG Chloride ABG Glucose Sodium 134 L Potassium 5.2 H Chloride 111.1 H Carbon Dioxide 16 L BUN 25 H Creatinine 1.5 H Glucose POC Glucose 58 L 120 H Lactic Acid Calcium Iron AST ALT Alkaline Phosphatase Ammonia CK-MB (CK-2) CK-MB (CK-2) Rel Index Total Protein Albumin Arterial Blood Glucose Urine Creatinine Urine Total Protein Salicylates Acetaminophen Crossmatch 10/14/20 10/15/20 10/15/20 Unknown 05:50 05:50 WBC 14.1 H RBC Hgb 9.4 L Hct 29.9 L MCV 76 L MCH 24 L MCHC 31 L RDW 34.2 H Plt Count 86 L Pepin % (Auto) 8.3 H Pepin # (Auto) 1.3 H Seg Neutrophils % 86.5 H Seg Neuts % (Manual) Lymphocytes % (Manual) 9.0 L Monocytes % (Manual) Basophils % (Manual) Nucleated RBC % 6.0 H Seg Neutrophils # 13.2 H Seg Neutrophils # Man 9.7 H Lymphocytes # (Manual) Monocytes # (Manual) Basophils # (Manual) PT INR APTT ABG pH POC ABG pCO2 POC ABG pO2 ABG Hemoglobin ABG Oxyhemoglobin ABG Sodium ABG Potassium ABG Chloride ABG Glucose Sodium 134 L Potassium Chloride 109.9 H Carbon Dioxide 18 L BUN 26 H Creatinine 1.5 H Glucose 125 H POC Glucose Lactic Acid Calcium Iron AST ALT Alkaline Phosphatase Ammonia CK-MB (CK-2) CK-MB (CK-2) Rel Index Total Protein Albumin Arterial Blood Glucose Urine Creatinine 144.2 H Urine Total Protein 97 H Salicylates Acetaminophen Crossmatch 10/15/20 10/15/20 10/15/20 05:55 07:36 07:59 WBC RBC Hgb Hct MCV MCH MCHC RDW Plt Count Pepin % (Auto) Pepin # (Auto) Seg Neutrophils % Seg Neuts % (Manual) Lymphocytes % (Manual) Monocytes % (Manual) Basophils % (Manual) Nucleated RBC % Seg Neutrophils # Seg Neutrophils # Man Lymphocytes # (Manual) Monocytes # (Manual) Basophils # (Manual) PT INR APTT ABG pH 7.052 L POC ABG pCO2 65.0 H POC ABG pO2 214.1 H ABG Hemoglobin 10.6 L ABG Oxyhemoglobin 98.3 H ABG Sodium 130.6 L ABG Potassium ABG Chloride 110.0 H ABG Glucose 124 H Sodium Potassium Chloride Carbon Dioxide BUN Creatinine Glucose POC Glucose 113 H 114 H Lactic Acid Calcium Iron AST ALT Alkaline Phosphatase Ammonia CK-MB (CK-2) CK-MB (CK-2) Rel Index Total Protein Albumin Arterial Blood Glucose 124 H Urine Creatinine Urine Total Protein Salicylates Acetaminophen Crossmatch 10/15/20 10/15/20 10/15/20 10:50 11:27 13:56 WBC RBC Hgb Hct MCV MCH MCHC RDW Plt Count Pepin % (Auto) Pepin # (Auto) Seg Neutrophils % Seg Neuts % (Manual) Lymphocytes % (Manual) Monocytes % (Manual) Basophils % (Manual) Nucleated RBC % Seg Neutrophils # Seg Neutrophils # Man Lymphocytes # (Manual) Monocytes # (Manual) Basophils # (Manual) PT INR APTT ABG pH 7.200 L POC ABG pCO2 POC ABG pO2 123.1 H ABG Hemoglobin ABG Oxyhemoglobin ABG Sodium 131.3 L ABG Potassium 4.6 H ABG Chloride 112.0 H ABG Glucose 42 L Sodium Potassium Chloride Carbon Dioxide BUN Creatinine Glucose POC Glucose 50 L 476 H Lactic Acid Calcium Iron AST ALT Alkaline Phosphatase Ammonia CK-MB (CK-2) CK-MB (CK-2) Rel Index Total Protein Albumin Arterial Blood Glucose 42 L Urine Creatinine Urine Total Protein Salicylates Acetaminophen Crossmatch 10/15/20 10/15/20 10/16/20 16:46 17:01 00:45 WBC RBC Hgb Hct MCV MCH MCHC RDW Plt Count Pepin % (Auto) Pepin # (Auto) Seg Neutrophils % Seg Neuts % (Manual) Lymphocytes % (Manual) Monocytes % (Manual) Basophils % (Manual) Nucleated RBC % Seg Neutrophils # Seg Neutrophils # Man Lymphocytes # (Manual) Monocytes # (Manual) Basophils # (Manual) PT INR APTT ABG pH 7.250 L POC ABG pCO2 POC ABG pO2 49.8 L ABG Hemoglobin 9.3 L ABG Oxyhemoglobin 83.0 L ABG Sodium 130.2 L ABG Potassium ABG Chloride 111.0 H ABG Glucose Sodium 135 L Potassium Chloride Carbon Dioxide BUN Creatinine Glucose POC Glucose 67 L Lactic Acid Calcium Iron AST ALT Alkaline Phosphatase Ammonia CK-MB (CK-2) CK-MB (CK-2) Rel Index Total Protein Albumin Arterial Blood Glucose Urine Creatinine Urine Total Protein Salicylates Acetaminophen Crossmatch 10/16/20 10/16/20 10/16/20 05:36 05:53 05:53 WBC 16.6 H RBC 3.52 L Hgb 8.3 L Hct 26.6 L MCV 75 L MCH 23 L MCHC 31 L RDW 33.7 H Plt Count 63 L Pepin % (Auto) Pepin # (Auto) Seg Neutrophils % Seg Neuts % (Manual) 93.0 H Lymphocytes % (Manual) Monocytes % (Manual) Basophils % (Manual) Nucleated RBC % 3.0 H Seg Neutrophils # Seg Neutrophils # Man 15.4 H Lymphocytes # (Manual) 0.0 L Monocytes # (Manual) Basophils # (Manual) PT INR APTT ABG pH POC ABG pCO2 POC ABG pO2 ABG Hemoglobin ABG Oxyhemoglobin ABG Sodium ABG Potassium ABG Chloride ABG Glucose Sodium 136 L Potassium Chloride 111.9 H Carbon Dioxide 17 L BUN 29 H Creatinine 2.0 H Glucose 126 H POC Glucose 44 L Lactic Acid Calcium 8.1 L Iron AST ALT Alkaline Phosphatase Ammonia CK-MB (CK-2) CK-MB (CK-2) Rel Index Total Protein Albumin Arterial Blood Glucose Urine Creatinine Urine Total Protein Salicylates Acetaminophen Crossmatch 10/16/20 10/16/20 10/16/20 05:53 07:26 08:07 WBC RBC Hgb Hct MCV MCH MCHC RDW Plt Count Pepin % (Auto) Pepin # (Auto) Seg Neutrophils % Seg Neuts % (Manual) Lymphocytes % (Manual) Monocytes % (Manual) Basophils % (Manual) Nucleated RBC % Seg Neutrophils # Seg Neutrophils # Man Lymphocytes # (Manual) Monocytes # (Manual) Basophils # (Manual) PT 24.5 H INR 2.17 H APTT ABG pH POC ABG pCO2 POC ABG pO2 ABG Hemoglobin ABG Oxyhemoglobin ABG Sodium ABG Potassium ABG Chloride ABG Glucose Sodium Potassium Chloride Carbon Dioxide BUN Creatinine Glucose POC Glucose 58 L 51 L Lactic Acid Calcium Iron AST ALT Alkaline Phosphatase Ammonia CK-MB (CK-2) CK-MB (CK-2) Rel Index Total Protein Albumin Arterial Blood Glucose Urine Creatinine Urine Total Protein Salicylates Acetaminophen Crossmatch 10/16/20 10/16/20 10/16/20 08:52 11:14 11:33 WBC RBC Hgb Hct MCV MCH MCHC RDW Plt Count Pepin % (Auto) Pepin # (Auto) Seg Neutrophils % Seg Neuts % (Manual) Lymphocytes % (Manual) Monocytes % (Manual) Basophils % (Manual) Nucleated RBC % Seg Neutrophils # Seg Neutrophils # Man Lymphocytes # (Manual) Monocytes # (Manual) Basophils # (Manual) PT INR APTT ABG pH 7.044 L POC ABG pCO2 58.1 H POC ABG pO2 57.7 L ABG Hemoglobin 9.5 L ABG Oxyhemoglobin 81.5 L ABG Sodium 131.7 L ABG Potassium ABG Chloride 112.0 H ABG Glucose 59 L Sodium Potassium Chloride Carbon Dioxide BUN Creatinine Glucose POC Glucose 58 L Lactic Acid Calcium Iron AST 136 H ALT 72 H Alkaline Phosphatase 240 H Ammonia CK-MB (CK-2) CK-MB (CK-2) Rel Index Total Protein 5.1 L Albumin 2.1 L Arterial Blood Glucose 59 L Urine Creatinine Urine Total Protein Salicylates Acetaminophen Crossmatch 10/16/20 10/16/20 10/16/20 12:32 13:11 13:40 WBC RBC Hgb Hct MCV MCH MCHC RDW Plt Count Pepin % (Auto) Pepin # (Auto) Seg Neutrophils % Seg Neuts % (Manual) Lymphocytes % (Manual) Monocytes % (Manual) Basophils % (Manual) Nucleated RBC % Seg Neutrophils # Seg Neutrophils # Man Lymphocytes # (Manual) Monocytes # (Manual) Basophils # (Manual) PT INR APTT ABG pH POC ABG pCO2 POC ABG pO2 ABG Hemoglobin ABG Oxyhemoglobin ABG Sodium ABG Potassium ABG Chloride ABG Glucose Sodium Potassium Chloride Carbon Dioxide BUN Creatinine Glucose POC Glucose 27 L 54 L 69 L Lactic Acid Calcium Iron AST ALT Alkaline Phosphatase Ammonia CK-MB (CK-2) CK-MB (CK-2) Rel Index Total Protein Albumin Arterial Blood Glucose Urine Creatinine Urine Total Protein Salicylates Acetaminophen Crossmatch 10/16/20 10/16/20 10/16/20 15:13 17:15 17:34 WBC RBC Hgb Hct MCV MCH MCHC RDW Plt Count Pepin % (Auto) Pepin # (Auto) Seg Neutrophils % Seg Neuts % (Manual) Lymphocytes % (Manual) Monocytes % (Manual) Basophils % (Manual) Nucleated RBC % Seg Neutrophils # Seg Neutrophils # Man Lymphocytes # (Manual) Monocytes # (Manual) Basophils # (Manual) PT INR APTT ABG pH POC ABG pCO2 POC ABG pO2 ABG Hemoglobin ABG Oxyhemoglobin ABG Sodium ABG Potassium ABG Chloride ABG Glucose Sodium Potassium Chloride Carbon Dioxide BUN Creatinine Glucose POC Glucose 46 L 54 L 119 H Lactic Acid Calcium Iron AST ALT Alkaline Phosphatase Ammonia CK-MB (CK-2) CK-MB (CK-2) Rel Index Total Protein Albumin Arterial Blood Glucose Urine Creatinine Urine Total Protein Salicylates Acetaminophen Crossmatch 10/16/20 10/16/20 10/16/20 18:51 19:37 21:00 WBC RBC Hgb Hct MCV MCH MCHC RDW Plt Count Pepin % (Auto) Pepin # (Auto) Seg Neutrophils % Seg Neuts % (Manual) Lymphocytes % (Manual) Monocytes % (Manual) Basophils % (Manual) Nucleated RBC % Seg Neutrophils # Seg Neutrophils # Man Lymphocytes # (Manual) Monocytes # (Manual) Basophils # (Manual) PT INR APTT ABG pH 7.122 L POC ABG pCO2 49.8 H POC ABG pO2 62.1 L ABG Hemoglobin 9.1 L ABG Oxyhemoglobin 89.6 L ABG Sodium 130.1 L ABG Potassium 3.0 L ABG Chloride 111.0 H ABG Glucose 106 H Sodium Potassium Chloride Carbon Dioxide BUN Creatinine Glucose POC Glucose 64 L 114 H Lactic Acid Calcium Iron AST ALT Alkaline Phosphatase Ammonia CK-MB (CK-2) CK-MB (CK-2) Rel Index Total Protein Albumin Arterial Blood Glucose 106 H Urine Creatinine Urine Total Protein Salicylates Acetaminophen Crossmatch 10/16/20 10/16/20 10/17/20 22:01 22:58 00:58 WBC RBC Hgb Hct MCV MCH MCHC RDW Plt Count Pepin % (Auto) Pepin # (Auto) Seg Neutrophils % Seg Neuts % (Manual) Lymphocytes % (Manual) Monocytes % (Manual) Basophils % (Manual) Nucleated RBC % Seg Neutrophils # Seg Neutrophils # Man Lymphocytes # (Manual) Monocytes # (Manual) Basophils # (Manual) PT INR APTT ABG pH POC ABG pCO2 POC ABG pO2 ABG Hemoglobin ABG Oxyhemoglobin ABG Sodium ABG Potassium ABG Chloride ABG Glucose Sodium 133 L Potassium 3.5 L Chloride 107.7 H Carbon Dioxide 15 L BUN 29 H Creatinine 2.6 H Glucose POC Glucose 63 L 292 H Lactic Acid Calcium 7.9 L Iron AST ALT Alkaline Phosphatase Ammonia CK-MB (CK-2) CK-MB (CK-2) Rel Index Total Protein Albumin Arterial Blood Glucose Urine Creatinine Urine Total Protein Salicylates Acetaminophen Crossmatch 10/17/20 10/17/20 10/17/20 02:04 03:08 03:55 WBC RBC Hgb Hct MCV MCH MCHC RDW Plt Count Pepin % (Auto) Pepin # (Auto) Seg Neutrophils % Seg Neuts % (Manual) Lymphocytes % (Manual) Monocytes % (Manual) Basophils % (Manual) Nucleated RBC % Seg Neutrophils # Seg Neutrophils # Man Lymphocytes # (Manual) Monocytes # (Manual) Basophils # (Manual) PT INR APTT ABG pH POC ABG pCO2 POC ABG pO2 ABG Hemoglobin ABG Oxyhemoglobin ABG Sodium ABG Potassium ABG Chloride ABG Glucose Sodium Potassium Chloride Carbon Dioxide BUN Creatinine Glucose POC Glucose 200 H 173 H 161 H Lactic Acid Calcium Iron AST ALT Alkaline Phosphatase Ammonia CK-MB (CK-2) CK-MB (CK-2) Rel Index Total Protein Albumin Arterial Blood Glucose Urine Creatinine Urine Total Protein Salicylates Acetaminophen Crossmatch 10/17/20 10/17/20 10/17/20 04:00 04:49 04:49 WBC 17.7 H RBC 3.21 L Hgb 7.5 L Hct 25.4 L MCV 79 L MCH 24 L MCHC 30 L RDW 34.0 H Plt Count 40 L Pepin % (Auto) Pepin # (Auto) Seg Neutrophils % Seg Neuts % (Manual) Lymphocytes % (Manual) 3.0 L Monocytes % (Manual) Basophils % (Manual) Nucleated RBC % 3.0 H Seg Neutrophils # Seg Neutrophils # Man 10.6 H Lymphocytes # (Manual) 0.5 L Monocytes # (Manual) 1.1 H Basophils # (Manual) PT INR APTT ABG pH 7.116 L POC ABG pCO2 POC ABG pO2 61.1 L ABG Hemoglobin 8.4 L ABG Oxyhemoglobin 90.2 L ABG Sodium 125.0 L ABG Potassium 3.1 L ABG Chloride ABG Glucose 155 H Sodium 133 L Potassium 3.3 L Chloride Carbon Dioxide 15 L BUN 29 H Creatinine 2.7 H Glucose 138 H POC Glucose Lactic Acid Calcium 7.8 L Iron AST ALT Alkaline Phosphatase Ammonia CK-MB (CK-2) CK-MB (CK-2) Rel Index Total Protein Albumin Arterial Blood Glucose 155 H Urine Creatinine Urine Total Protein Salicylates Acetaminophen Crossmatch 10/17/20 10/17/20 10/17/20 04:58 06:01 07:50 WBC RBC Hgb Hct MCV MCH MCHC RDW Plt Count Pepin % (Auto) Pepin # (Auto) Seg Neutrophils % Seg Neuts % (Manual) Lymphocytes % (Manual) Monocytes % (Manual) Basophils % (Manual) Nucleated RBC % Seg Neutrophils # Seg Neutrophils # Man Lymphocytes # (Manual) Monocytes # (Manual) Basophils # (Manual) PT INR APTT ABG pH POC ABG pCO2 POC ABG pO2 ABG Hemoglobin ABG Oxyhemoglobin ABG Sodium ABG Potassium ABG Chloride ABG Glucose Sodium Potassium Chloride Carbon Dioxide BUN Creatinine Glucose POC Glucose 137 H 119 H 106 H Lactic Acid Calcium Iron AST ALT Alkaline Phosphatase Ammonia CK-MB (CK-2) CK-MB (CK-2) Rel Index Total Protein Albumin Arterial Blood Glucose Urine Creatinine Urine Total Protein Salicylates Acetaminophen Crossmatch 10/17/20 10/17/20 10/17/20 11:50 15:11 18:11 WBC RBC Hgb Hct MCV MCH MCHC RDW Plt Count Pepin % (Auto) Pepin # (Auto) Seg Neutrophils % Seg Neuts % (Manual) Lymphocytes % (Manual) Monocytes % (Manual) Basophils % (Manual) Nucleated RBC % Seg Neutrophils # Seg Neutrophils # Man Lymphocytes # (Manual) Monocytes # (Manual) Basophils # (Manual) PT INR APTT ABG pH POC ABG pCO2 POC ABG pO2 ABG Hemoglobin ABG Oxyhemoglobin ABG Sodium ABG Potassium ABG Chloride ABG Glucose Sodium Potassium Chloride Carbon Dioxide BUN Creatinine Glucose POC Glucose 111 H 114 H 137 H Lactic Acid Calcium Iron AST ALT Alkaline Phosphatase Ammonia CK-MB (CK-2) CK-MB (CK-2) Rel Index Total Protein Albumin Arterial Blood Glucose Urine Creatinine Urine Total Protein Salicylates Acetaminophen Crossmatch 10/17/20 10/17/20 10/18/20 19:51 23:32 04:00 WBC RBC Hgb Hct MCV MCH MCHC RDW Plt Count Pepin % (Auto) Pepin # (Auto) Seg Neutrophils % Seg Neuts % (Manual) Lymphocytes % (Manual) Monocytes % (Manual) Basophils % (Manual) Nucleated RBC % Seg Neutrophils # Seg Neutrophils # Man Lymphocytes # (Manual) Monocytes # (Manual) Basophils # (Manual) PT INR APTT ABG pH 7.276 L POC ABG pCO2 POC ABG pO2 77.7 L ABG Hemoglobin 7.2 L ABG Oxyhemoglobin ABG Sodium 122.6 L ABG Potassium ABG Chloride ABG Glucose 113 H Sodium Potassium Chloride Carbon Dioxide BUN Creatinine Glucose POC Glucose 130 H 114 H Lactic Acid Calcium Iron AST ALT Alkaline Phosphatase Ammonia CK-MB (CK-2) CK-MB (CK-2) Rel Index Total Protein Albumin Arterial Blood Glucose 113 H Urine Creatinine Urine Total Protein Salicylates Acetaminophen Crossmatch 10/18/20 10/18/20 10/18/20 04:06 04:06 04:13 WBC RBC Hgb Hct MCV MCH MCHC RDW Plt Count Pepin % (Auto) Pepin # (Auto) Seg Neutrophils % Seg Neuts % (Manual) Lymphocytes % (Manual) Monocytes % (Manual) Basophils % (Manual) Nucleated RBC % Seg Neutrophils # Seg Neutrophils # Man Lymphocytes # (Manual) Monocytes # (Manual) Basophils # (Manual) PT 23.5 H INR 2.05 H APTT ABG pH POC ABG pCO2 POC ABG pO2 ABG Hemoglobin ABG Oxyhemoglobin ABG Sodium ABG Potassium ABG Chloride ABG Glucose Sodium 123 L D Potassium Chloride 97.9 L Carbon Dioxide 16 L BUN 31 H Creatinine 3.1 H Glucose 113 H POC Glucose 108 H Lactic Acid Calcium 7.4 L Iron AST ALT Alkaline Phosphatase Ammonia CK-MB (CK-2) CK-MB (CK-2) Rel Index Total Protein Albumin Arterial Blood Glucose Urine Creatinine Urine Total Protein Salicylates Acetaminophen Crossmatch 10/18/20 10:03 WBC RBC Hgb Hct MCV MCH MCHC RDW Plt Count Pepin % (Auto) Pepin # (Auto) Seg Neutrophils % Seg Neuts % (Manual) Lymphocytes % (Manual) Monocytes % (Manual) Basophils % (Manual) Nucleated RBC % Seg Neutrophils # Seg Neutrophils # Man Lymphocytes # (Manual) Monocytes # (Manual) Basophils # (Manual) PT INR APTT ABG pH POC ABG pCO2 POC ABG pO2 ABG Hemoglobin ABG Oxyhemoglobin ABG Sodium ABG Potassium ABG Chloride ABG Glucose Sodium Potassium Chloride Carbon Dioxide BUN Creatinine Glucose POC Glucose 139 H Lactic Acid Calcium Iron AST ALT Alkaline Phosphatase Ammonia CK-MB (CK-2) CK-MB (CK-2) Rel Index Total Protein Albumin Arterial Blood Glucose Urine Creatinine Urine Total Protein Salicylates Acetaminophen Crossmatch Chest x-ray: other (stable bilateral pleural effusions and pulm edema pattern) Allied health notes reviewed: nursing
--- NOTE | 2020-10-18 11:27 | Progress Note ---
Assessment and Plan Assessment: Acute encephalopathy Hyponatremia Hypothermia, resolved Pulmonary infiltrate in right lung on CXR Atherosclerotic cerebrovascular disease Severe anemia -possible GI bleed Severe protein-calorie malnutrition Acute Renal Failure Hypokalemia Plan: Sodium level dropped to 123 today from 133 yesterday No salt tabs as have CHF. Echo done 10/04/20 showed LVEF 25-30% Start Lasix at 40 mg IV daily Avoid correction more than 8 mmol/l in 24 hours Serum creatinine noted to rise to 3.1 today, yesterday's was 2.7 Obtain renal ultrasound Acidosis-On Sodium bicarb drip Replete potassium as needed Avoid nephrotoxic agents Obtain daily weights Monitor I/O's daily Plan of care reviewed by Dr. Cam Subjective Date of service: 10/18/20 Principal diagnosis: Ac hypoxemic resp failure; Pneumonia; BETSY; Ac. encephalopathy Interval history: Patient seen lying in bed, intubated. Objective - Vital Signs Vital signs: Vital Signs - 12hr 10/18/20 10/18/20 10/18/20 00:00 03:44 04:00 Temperature 98.7 F 99.1 F Pulse Rate 98 H 88 99 H Pulse Rate [ 98 H 100 H From Monitor] Respiratory 30 H 30 H Rate Blood Pressure 107/51 O2 Sat by Pulse 93 97 93 Oximetry 10/18/20 10/18/20 07:20 08:26 Temperature 99.2 F Pulse Rate 98 H Pulse Rate [ From Monitor] Respiratory Rate Blood Pressure 126/64 O2 Sat by Pulse 100 Oximetry - General Appearance General appearance: sedated on ventilator, intubated EENT: ATNC Neck: no JVD Respiratory: Present: Decreased Breath Sounds, Other (Intubated) Cardiology: S1S2 Gastrointestinal: normoactive bowel sounds Integumentary: warm and dry Neurologic: other (Sedated) Musculoskeletal: joint swelling, other (2+ edema to BLE) - Lab 10/18/20 Unknown 10/18/20 04:06 Most recent lab results ABG pH 7.276 (7.320-7.450) L 10/18/20 04:00 ABG O2 Saturation 95.1 (0-100) 10/18/20 04:00 Calcium 7.4 mg/dL (8.4-10.2) L 10/18/20 04:06 Phosphorus 3.00 mg/dL (2.5-4.5) 10/06/20 05:07 Magnesium 1.90 mg/dL (1.7-2.3) 10/06/20 05:07 Urine Creatinine 144.2 mg/dL (0.1-20.0) H 10/14/20 Unknown Urine Sodium 10 mmol/L 10/14/20 Unknown Urine Total Protein 97 mg/dL (5-11.8) H 10/14/20 Unknown Medications & Allergies - Medications Allergies/Adverse Reactions: Allergies No Known Allergies Allergy (Unverified 10/03/20 12:27) Home Medications: Home Medications Medication Instructions Recorded Confirmed Last Taken Type Unobtainable 10/10/20 10/10/20 Unknown History Active Medications: Generic Name Dose Route Start Last Admin Trade Name Freq PRN Reason Stop Dose Admin Acetaminophen 650 mg 10/03/20 02:10 10/06/20 15:28 Acetaminophen 325 Mg Tab PO 650 mg Q4H PRN Administration Pain MILD(1-3)/Fever >100.5/ROMERO Al Hydrox/Mg Hydrox/Simethicone 30 ml 10/03/20 02:10 Alum-Mag Hydroxide-Simethicone [id number]/5ml Oral Liqd 30 Ml PO Q4H PRN Indigestion Lipase/Protease/Amylase 1 each 10/03/20 16:51 Lipase 10,500/Protease 25,000/Amylase 43,750 (Units) Dr Reis FEEDTUBE PRN PRN For Clogged Feeding Tube Dextrose 50 ml 10/16/20 12:42 10/16/20 15:17 Dextrose 50% In Water (25gm) 50 Ml Syringe IV 50 ml Q30MIN PRN Administration Hypoglycemia Protocol Ferrous Sulfate 308 mg 10/16/20 10:00 10/18/20 09:18 Ferrous Sulfate 308 Mg (62mg Elemental Iron) / 7 Ml Elixir FEEDTUBE 308 mg DAILY JOSE Administration Folic Acid 1 mg 10/03/20 10:00 10/18/20 09:18 Folic Acid 1 Mg Tab PO 1 mg QDAY JOSE Administration Levetiracetam 250 mg/ Dextrose 102.5 mls @ 400 mls/hr 10/10/20 22:00 10/18/20 09:17 IV 400 mls/hr Q12HR JOSE Administration Vasopressin 20 unit/ Sodium 101 mls @ 9.09 mls/hr 10/16/20 13:00 10/18/20 08:40 Chloride IV 0.03 units/min TITR JOSE 9.09 mls/hr Administration Protocol 0.03 UNITS/MIN Dextrose 1,000 mls @ 125 mls/hr 10/16/20 13:00 10/17/20 20:12 D10w IV 125 mls/hr DIRECT JOSE Administration Sodium Bicarbonate 150 meq/ 1,150 mls @ 100 mls/hr 10/16/20 15:00 10/17/20 23:46 Dextrose IV 10/19/20 02:29 Infused DIRECT JOSE Infusion Phenylephrine HCl 100 mg/ 100 mls @ 3 mls/hr 10/16/20 18:00 10/18/20 10:38 Sodium Chloride IV 190 mcg/min TITR JOSE 11.4 mls/hr Titration Protocol 50 MCG/MIN NORepinephrine/NS 8 MG-250 ML 8 mg in 250 mls @ 3.75 mls/hr 10/16/20 19:00 10/18/20 10:39 Norepinephrine/Ns 8 Mg-250 Ml (Double Conc) IV 9 mcg/min TITRATE JOSE 16.875 mls/hr Titration Protocol 2 MCG/MIN Amiodarone HCl 900 mg/ 500 mls @ 16.667 mls/hr 10/16/20 20:00 10/17/20 20:13 Dextrose IV 0.5 mg/min DIRECT JOSE 16.667 mls/hr Administration Protocol 0.5 MG/MIN Dobutamine HCl/Dextrose 500 mg in 250 mls @ 6.908 mls/hr 10/16/20 19:00 10/17/20 20:11 Dobutrex Drip 500mg/D5w 250ml IV 5 mcg/kg/min DIRECT JOSE 13.815 mls/hr Administration Protocol 2.5 MCG/KG/MIN Epinephrine 8 mg/ Sodium 250 mls @ 0 mls/hr 10/16/20 23:45 10/17/20 11:33 Chloride IV 0 mls/hr TITR JOSE Infusion Cefepime HCl 2 gm in 100 mls @ 200 mls/hr 10/17/20 22:00 10/17/20 21:40 Cefepime/Ns 2 Gm/100 Ml IV 10/22/20 22:29 200 mls/hr Q24H JOSE Administration Protocol Magnesium Hydroxide 30 ml 10/03/20 02:10 Magnesium Hydroxide (Mom) Oral Liqd Udc PO Q4H PRN Constipation Metoclopramide HCl 5 mg 10/17/20 09:00 Metoclopramide 10 Mg/2 Ml Inj IV Q6H PRN Nausea And Vomiting Ondansetron HCl 4 mg 10/03/20 02:10 10/07/20 23:19 Ondansetron 4 Mg/2 Ml Inj IV 4 mg Q8H PRN Administration Nausea And Vomiting Pantoprazole Sodium 40 mg 10/04/20 15:00 10/18/20 09:17 Pantoprazole 40 Mg Inj IV 40 mg QDAY JSOE Administration Promethazine HCl 25 mg 10/03/20 02:10 Promethazine 25 Mg Rect Supp SC Q6H PRN N/V IF NPO AND NO IV ACCESS Senna 8.6 mg 10/03/20 02:10 Sennosides 8.6 Mg Tab PO Q12HR PRN Constipation Simple Syrup 15 ml 10/03/20 16:51 10/16/20 18:19 Simple Syrup 15 Ml FEEDTUBE 15 ml PRN PRN Administration Hypoglycemia Simple Syrup 30 ml 10/03/20 16:51 10/16/20 22:02 Simple Syrup 15 Ml FEEDTUBE 30 ml PRN PRN Administration Hypoglycemia Sodium Bicarbonate 325 mg 10/03/20 16:51 Sodium Bicarbonate 325 Mg Tab FEEDTUBE PRN PRN For Clogged Feeding Tube
--- NOTE | 2020-10-18 11:35 | Electrocardiograph Report ---
[facility] Test Date: 2020-10-18 Test Time: 07:55:32 Pat Name: JEREMIAS GUTIÉRREZ Department: Room: A256 1 Gender: M Community Support Specialist: DMITRY : [id number] Requested By: BARB COLBERT Order Number: [id number] Reading MD: Sidney Bang Measurements Intervals Dana Rate: 98 P: 0 NM: 84 QRS: 7 QRSD: 82 T: -22 QT: 391 QTc: 501 Interpretive Statements Probably atrial fibrillation Paired ventricular premature complexes Low voltage, extremity and precordial leads Prolonged QT interval Compared to ECG 10/16/2020 15:24:31 No significant change noted. Electronically Signed On 10-18-2020 11:35:12 EDT by Sidney Bang
--- NOTE | 2020-10-18 11:37 | XRay Report ---
CHEST - 1 VIEW 0855 hours INDICATION: hypoxia COMPARISON: Yesterday FINDINGS: Support devices: Nasogastric tube has been removed. The remaining lines and tubes are unchanged. Heart: Stable cardiomediastinal silhouette. Lungs/pleura: Stable appearance of the hazy lower lung opacities most consistent with atelectasis or layering pleural effusions. Stable right perihilar airspace opacities. No pneumothorax. Additional findings: None. IMPRESSION: Unchanged exam. Signer Name: Diego Edmonds Jr, MD Signed: 10/18/2020 11:32 AM Workstation Name: [id number]
[2020-10-18] MEDS: DOBUTamine/D5W 500 MG/250 ML 500 MG/250 ML BAG IV SCH (12:55)
[2020-10-18] MEDS: DEXTROSE 10% IN WATER 1,000 ML IV SCH ×2 (12:56→20:42)
[2020-10-18 12:57] LABS: Hematocrit 22.2 % (35.5-45.6); Hemoglobin 6.9 gm/dl (11.8-15.2); Mean Corpuscular HGB Conc 31 % (32-34); Mean Corpuscular Volume 75 fl (84-94); Red Blood Count 2.95 M/mm3 (3.65-5.03)
[2020-10-18 13:03] LABS: Red Cell Distribution Width 33.6 % (13.2-15.2)
--- NOTE | 2020-10-18 13:22 | Progress Note ---
Assessment and Plan Paroxysmal Afib w/RVR Tachycardia HFrEF * EKG 10/16/2020 reveals sinus tachycardia with PACs * EKG 10/18/2020 shows Afib 98s with paired ventricular premature complexes * Telemetry today shows Afib trending 90s with episodes of RVR into 130s * Previous telemetry reveals primarily sinus rhythm with frequent PACs. In SR in the 80-100s for the majority of the day yesterday, with brief intermittent episodes of sinus tachycardia in the 150-160s. May be having very short runs of PAF * Given pt's hemodynamic instability (currently requiring multiple vasopressors), unable to start BB or non-dihydropyridine CCB * Continue Amio drip for Rate control. Monitor LFTs * Would not recommend anticoagulation currently given low AF burden and a nemia/thrombocytopenia * Tachycardia likely multifactorial given * Echo 10/04/2020-EF 25 to 30%, right ventricle severely dilated and moderately hypokinetic, left atrium is mildly dilated, right atrium severely dilated, moderate to severe tricuspid regurgitation, moderate mitral regurgitation tricuspid annulus dilated. Significant narrowing in bilateral posterior cerebral arteries Left-sided hemiparesis with aphasia Atherosclerotic cerebrovascular disease * Neurology following BETSY * Nephrology following Acute hypoxic repiratory failure * Pulmonology following Patient seen in conjunction with Dr. Bang who agrees with this plan of care. Will continue to follow - Patient Problems (1) Afib Current Visit: Yes Status: Acute (2) Acute encephalopathy Current Visit: Yes Status: Acute (3) Atherosclerotic cerebrovascular disease Current Visit: Yes Status: Acute (4) Hypoglycemia Current Visit: Yes Status: Acute (5) Left-sided weakness Current Visit: Yes Status: Acute (6) Microcytic anemia Current Visit: Yes Status: Acute (7) Pulmonary infiltrate in right lung on CXR Current Visit: Yes Status: Acute (8) HFrEF (heart failure with reduced ejection fraction) Current Visit: Yes Status: Acute (9) Dilated cardiomyopathy Current Visit: Yes Status: Acute Subjective Date of service: 10/18/20 Principal diagnosis: Ac hypoxemic resp failure; Pneumonia; BETSY; Ac. encephalopathy Interval history: Patient intubated afib 90s with PVCs and episodes of RVR into 130s on monitor Objective Last Vital Signs Temp 98.0 F 10/18/20 12:28 Pulse 93 H 10/18/20 12:30 Resp 30 H 10/18/20 04:00 BP 103/61 09/08/21 12:30 Pulse Ox 98 10/18/20 12:30 - Physical Examination General: Other (intubated) HEENT: Positive: Mucus Membranes Dry Neck: Positive: trachea midline Cardiac: Positive: irregularly irregular Lungs: Positive: Ventilated Respirations Neuro: Positive: Other (intubated) Abdomen: Positive: Soft Skin: Negative: Rash Extremities: Present: upper extr. pulses, lower extr. pulses, edema - Labs and Meds Coagulation 10/18/20 Range/Units 04:06 PT 23.5 H (12.2-14.9) Sec. INR 2.05 H (0.87-1.13) CBC 10/17/20 10/18/20 Range/Units 04:49 Unknown WBC 19.8 H (4.5-11.0) K/mm3 RBC 2.95 L (3.65-5.03) M/mm3 Hgb 6.9 L (11.8-15.2) gm/dl Hct 22.2 L (35.5-45.6) % Plt Count 40 L (140-440) K/mm3 Comprehensive Metabolic Panel 10/18/20 Range/Units 04:06 Sodium 123 L D (137-145) mmol/L Potassium 3.9 (3.6-5.0) mmol/L Chloride 97.9 L (98-107) mmol/L Carbon Dioxide 16 L (22-30) mmol/L BUN 31 H (9-20) mg/dL Creatinine 3.1 H (0.8-1.3) mg/dL Glucose 113 H (75-100) mg/dL Calcium 7.4 L (8.4-10.2) mg/dL - Imaging and Cardiology EKG: report reviewed, image reviewed Echo: report reviewed - Telemetry EKG Rhythm: Atrial Fibrillation - EKG Supraventricular dysrhythmia: atrial fibrillation - Allied health notes Allied health notes reviewed: nursing
[2020-10-18 14:00] LABS: Platelet Count 28 K/mm3 (140-440)
[2020-10-18] MEDS: FUROSEMIDE 40 MG/4 ML INJ IV SCH (16:16)
--- NOTE | 2020-10-18 16:16 | XRay Report ---
ABDOMEN 1 VIEW(S) INDICATION / CLINICAL INFORMATION: feeding tube placement verification. COMPARISON: None available. FINDINGS: TUBES / LINES: NG tube in satisfactory position. BOWEL GAS PATTERN: No significant abnormality. ADDITIONAL FINDINGS: No significant additional findings. Signer Name: Malcolm Pride MD Signed: 10/18/2020 4:12 PM Workstation Name: [id number]
[2020-10-18] MEDS ORDERED: SODIUM CHLORIDE 0.9% 500 ML 500 ML IV NR (18:48)
--- NOTE | 2020-10-18 19:19 | Progress Note ---
<KATELINEVERETT RenayFede - Last Filed: 10/18/20 19:14> Assessment and Plan Assessment and plan: This is 74-year-old male with GERD admitted with arthrosclerotic calcification, anemia and hypoglycemia. Neuro: Acute metabolic encephalopathy, significant narrowing in bilateral posterior cerebral arteries, left-sided hemiparesis with aphasia, atherosclerotic cerebrovascular disease -Avoid delirium -Patient is not sedated -Minimally interactive at this time, decorticate posturing to pain to BLE, triple flex to BLE, Intact cough/gag and pupils are very sluggish to reaction -CTA head/CTA neck completed-> see results -MRI brain completed-> see results, findings suggestive of ventriculomegaly -Thiamine and folate daily -Keppra -Seizure precautions -Neurology consulted, appreciate recommendations -EEG completed which cannot rule out acute seizure with postictal state Cardio: SB-SR, hypotension, afib, HFrEF (10-15%) -Levophed, epi, phenylepi, dobutamine, vasopressor -MAP goal greater than 65 -Blood pressure monitoring per protocol -PICC 10/16 -Cardiology consulted, appreciate recommendations -no anticoagulation per cards for now -Amio for afib -Echo completed-> see results, EF 25-30% Respiratory: Acute hypoxic respiratory failure; mixed resp and metabolic acidosis -Patient was intubated on 10/15 -VAP bundle -Current vent settings: Assist control, tidal volume 500, rate 30, PEEP of 8 on 60% FiO2 -Intubated with 7.[address] [facility] following -VAP bundle -10/18 reviewed CXR and ABG reviewed -Daily CXR and ABG -SBT/SAT when appropriate GI:? GIB, oropharyngeal dysphagia, severe protein-calorie malnutrition -Nutrition consult for tube feedings -GI consulted, appreciate recommendations -GI will hold off EGD/PEG given acute clinical worsening with respiratory failure -Past 24 hours net +[phone] -PPI with Protonix -BR with Senokot -NGT to LIS : Hyponatremia, hypokalemia, metabolic acidosis, acute kidney injury secondary to ATN -Nephrology consulted, appreciate recommendations -Strict intake and output -Monitor BMP -munoz for I&O -D5W with 150meq of HCO3@100 for 2 liters-> set to end today -Lasix restarted per nephro Heme: Iron deficient anemia, leukocytosis, supratherapeutic INR, superfical venous thrombus, thrombocytopenia -Likely secondary to malnutrition -S/p 3 units of PRBC -Iron/multivitamin supplements -GI consulted, patient recommendations -Monitor H/H -Hold off EGD/colonoscopy given acute clinical worsening with respiratory failure per GI -Trend CBC -Bilateral upper and lower extremity Doppler ultrasound shows occlusive superficial venous thrombus of left basilic and cephalic vein. -Monitor INR and bleeding -transfuse prbc and plt today (hbg 6.9 and plt 40) Endo: Persistent hypoglycemia-resolving -Patient was on D10 23 % saline at 100ml/hr switched to D10W at 125ml/hr -Accu-Cheks every 4 -Hypoglycemia protocol -Avoid hypoglycemia ID: Pulmonary infiltrate in right lung, Hypothermia -COVID-19 PCR negative -Antibiotic therapy with cefepime -Monitor CBC and temperature curve -Intermittent Joseph hugger use -TSH 2.1 The high probability of a clinically significant, sudden or life threatening deterioration of the [multi] system(s) required my full and direct attention, intervention and personal management. The aggregate critical care time was [60] minutes. This time is in addition to time spent performing reported procedures but includes the following: [x] Data Review and interpretation [x] Patient assessment and monitoring of vital signs [x] Documentation [x] Medication orders and management Disposition Plan: icu Total Time Spent with Patient (Minutes): 60 History Interval history: This is 74-year-old male with GERD who presented with AMS and left-sided weakness on 10/03 after being found incontinent in feces and urine on bed. Patient was only able to answer simple questions to the EMS. Upon presentation to the ED patient was confused. CT head showed cerebral with arthrosclerotic calcification. Work-up in the emergency department revealed anemia and hypoglycemia. Patient admitted to the hospital service for further work-up. 10/03/20: CT of the head no acute finding but showed a cerebral atrophy with suspicious atrophy and atherosclerotic calcification within the distal right middle cer ebral artery. Patient also noted with hemoglobin of 5.8, received 1 unit of packed RBC and ordered for tomorrow Neuro is consulted, Covid test is negative We will check stool for occult blood MRI brain ordered we will follow Will hold any oral medicine until cleared by speech or passes the bedside swallow eval Patient noted to have severe hypoglycemic, will place on D10W Follow H&H and BMP Continue current management plan as dictated in the HPI 10/04/20: no acute findings in MRI, pending EEG, s/p 3 units PRBC transfusion. follow speech miguel, TF for now, h/h stable, GI consulted - follow recom mendation. 10/05/20 Patient with acute encephalopathy, severe anemia s/p PRBC transfusion. GI following. Hgb 9.8 today. Will repeat in am. Left sided weakness. MRI negative for stroke. Neurology following. 10/06/20 Patient with encephalopathy, severe anemia s/p PRBC transfusion. Hgb 9.4 today. Patient has left sided weakness but MRI neg. Patient needs PEG tube. Will talk with family. Hypokalemia. Replace Q6h X 2. Check Mg 10/07/20 Patient with encephalopathy, severe anemia s/p PRBC transfusion. Hgb 9.6 today. Patient has left sided weakness but MRI neg. Patient needs PEG tube. Will talk with family. Hyponatremia of 128. This may be due to D10% he was on prior to NG tube. Stopped 10% Dextrose. Consulted Nephrology 10/08/20 Patient with encephalopathy, severe anemia s/p PRBC transfusion. Hgb 9.6 today. Patient has left sided weakness but MRI neg. Patient needs PEG tube. Hyponatremia worse today 126. This is due to D10% resumed last night because of hypoglycemia. I discussed with Dr. Herrera. Stop 10%Dextrose. Start D5NS Spoke to daughterCindy, yesterday and gave update. She wants PEG tube placed. Discussed plan with , GI. He wants to do upper and lower endoscopy to evaluate anemia, before PEG tube 10/09/20 Patient with encephalopathy, severe anemia s/p PRBC transfusion. Hgb 10.3 today. Patient has left sided weakness but MRI neg. Patient needs PEG tube. Hyponatremia still present Na 126 today. This is due to D10% resumed again last night because of hypoglycemia. Nephrology had recommended D5NS but 10% Dextrose restarted overnight because of hypoglycemia. Nurses unable to place NG tube. I discussed with Dr. Otero today and he will do. Spoke to daughterCindy, yesterday and gave update. She wants PEG tube placed. Discussed plan with , GI. He wants to do upper and lower endoscopy to evaluate anemia, before PEG tube Today Na still 126. I discussed with Dr. Herrera and he recommended D10NS. I called Pharmacy. They will mix special D10NS drip. Patient had bilateral pneumonia on CXR therefore started iv Antibiotics, blood cultures. yesterday. Consulted ID 10/10/2020. Patient remains encephalopathic with hemoglobin stabilizing yesterday. Recheck H&H. Patient with left-sided weakness but MRI negative. Fluoroscopic NG tube placement completed yesterday. Await GI to perform EGD and colonoscopy. Follow-up hyponatremia with BMP results. Dr. Aldrich Spoke to daughter, Cindy Singh, and gave update. Daughter wants PEG tube placed. Continue IV antibiotics for bilateral pneumonia. ID consulted. Follow-up procalcitonin levels. 10/11/2020. Patient's hemoglobin remained stable today at 9.5. However, patient noted to be hypotensive with systolic blood pressure of 83. Patient received NS 250 cc bolus with improvement of blood pressure systolically to 123. GI plans to perform EGD/colonoscopy tomorrow. Hyponatremia improving. Start IV fluid of normal saline at 75 cc an hour x1 L 10/12/2020. Patient noted to have some gurgling of the upper airway. NG tube was placed to low intermittent suction. Check chest x-ray and KUB to rule out aspiration and/or ileus. Continue to monitor. H/H remained stable. ID stopped antibiotics due to normal procalcitonin. Speech evaluation 10/13/2020. Patient remains encephalopathic. I discussed overall mental status with the daughter yesterday and updated her with plan of care. Neurology reports: CT angio of the head that is a significant narrowing seen in both posterior cerebral arteries - and no signs of large vessel -CT of the head no acute finding but showed a cerebral atrophy with suspicious atrophy and atherosclerotic calcification within the distal right middle cerebral artery. -MRI brain without any acute findings - EEG completed yesterday remarkable for diffuse slowing 3-4 Hz and with occassional triphasic waves , no epileptiform discharges is noted -- full report to follow -Repeat MRI brain showed no acute finding Keppra was decreased to 250 mg IV twice daily and thiamine was added x3 days. No LP for now due to lack of any inflammatory findings. Repeat EEG per neurology. Sodium level has improved. Serum creatinine has increased to 1.6 today. Avoid nephrotoxic agents and monitor I/O's daily. Salt tabs 2 g 3 times daily per nephrology 10/14/2020. Patient remains encephalopathic. MRI, EEG and CT results noted above. Continue supportive care. Defer to neurology recommendations regarding mental status/encephalopathy. Continue salt tabs per nephrology. Follow-up BMP. Avoid nephrotoxic agents and monitor I/O's daily. Continue NG tube feedings. PEG placement per GI. 10/15/2020. Patient noted to have significant respiratory distress. Patient with tachypnea, some accessory muscle use, labored breathing and coarse breath sounds and sonorous respirations. Dr. Maldonado from the emergency department intubated the patient. Dr. Floyd was consulted and notified. The patient will be transferred to the ICU and continued on mechanical ventilation. Follow-up chest x-ray. 10/16: Patient is having persistent hypoglycemia despite being on D10 23% saline at 100ml/hr. given multiple amps of D50 with minimal response. The patient IV fluids changed to D5W at 125. Repeat BMP in the p.m. 10/17: hypoglycemia better, remains on levophed, epi, neoshynephrine, dobumatine and bicarb gtt this morning. RN is slowly titrating vasopressor as tolerated. Updated daughter Mignon today and relayed new findings including posturing of BUE to pain. 10/18: Patient is being slowly weaned off of vasopressor support by RN. Patient remains on phenyl epinephrine, vasopressin, norepinephrine and amiodarone. Nephrology will resume Lasix. Patient is hyponatremic today however he is on a bicarb drip which we will add today. This evening patient noted to be anemic and have low platelets. Transfuse platelets and PRBC. NGT to suction Hospitalist Physical - Constitutional Vitals: Temp Pulse Resp BP Pulse Ox 98.2 F 93 H 30 H 101/59 98 10/18/20 14:50 10/18/20 17:13 10/18/20 16:00 10/18/20 17:13 10/18/20 17:13 General appearance: Present: other (Not responsive to voice or touch. NG tube in place. ) - EENT Eyes: Present: PERRL (very sluggish) ENT: poor dentition - Neck Neck: Absent: masses or JVD, cervical LAD - Respiratory Respiratory effort: normal Respiratory: bilateral: diminished - Cardiovascular Rhythm: irregularly irregular Heart Sounds: Present: S1 & S2. Absent: systolic murmur, diastolic murmur - Extremities Extremities: no ischemia, pulses intact, pulses symmetrical, normal temperature, normal color Extremity abnormal: edema, pulses diminished Peripheral Pulses: within normal limits - Abdominal General gastrointestinal: soft, non-distended, normal bowel sounds - Integumentary Integumentary: Present: warm, dry - Psychiatric Psychiatric: other (not interactive) - Neurologic Neurologic: other (not interactive) - Allied Health Allied health notes reviewed: nursing, RT, social work HEART Score - HEART Score Troponin: Troponin T < 0.010 ng/mL (0.00-0.029) 10/02/20 23:17 Results - Labs CBC & Chem 7: 10/18/20 Unknown 10/18/20 04:06 Labs: Laboratory Last Values WBC 19.8 K/mm3 (4.5-11.0) H 10/18/20 Unknown RBC 2.95 M/mm3 (3.65-5.03) L 10/18/20 Unknown Hgb 6.9 gm/dl (11.8-15.2) L 10/18/20 Unknown Hct 22.2 % (35.5-45.6) L 10/18/20 Unknown MCV 75 fl (84-94) L 10/18/20 Unknown MCH 24 pg (28-32) L 10/18/20 Unknown MCHC 31 % (32-34) L 10/18/20 Unknown RDW 33.6 % (13.2-15.2) H 10/18/20 Unknown Plt Count 28 K/mm3 (140-440) L 10/18/20 Unknown Lymph % (Auto) Library Assistant 10/10/20 10:58 [place] % (Auto) 8.3 % (0.0-7.3) H 10/15/20 05:50 Eos % (Auto) 0.3 % (0.0-4.3) 10/15/20 05:50 Baso % (Auto) Library Assistant 10/10/20 10:58 Lymph # (Auto) Library Assistant 10/10/20 10:58 [place] # (Auto) 1.3 K/mm3 (0.0-0.8) H 10/15/20 05:50 Eos # (Auto) 0.0 K/mm3 (0.0-0.4) 10/15/20 05:50 Baso # (Auto) 0.1 K/mm3 (0.0-0.1) 10/15/20 05:50 Add Manual Diff Complete 10/17/20 04:49 Total Counted 100 10/17/20 04:49 Seg Neutrophils % Library Assistant 10/17/20 04:49 Seg Neuts % (Manual) 60.0 % (40.0-70.0) 10/17/20 04:49 Band Neutrophils % 13.0 % 10/17/20 04:49 Lymphocytes % (Manual) 3.0 % (13.4-35.0) L 10/17/20 04:49 Monocytes % (Manual) 6.0 % (0.0-7.3) 10/17/20 04:49 Eosinophils % (Manual) 1.0 % (0.0-4.3) 10/13/20 05:24 Basophils % (Manual) 2.0 % (0.0-1.8) H 10/10/20 10:58 Metamyelocytes % 11.0 % 10/17/20 04:49 Myelocytes % 7.0 % 10/17/20 04:49 Nucleated RBC % 3.0 % (0.0-0.9) H 10/17/20 04:49 Seg Neutrophils # 13.2 K/mm3 (1.8-7.7) H 10/15/20 05:50 Seg Neutrophils # Man 10.6 K/mm3 (1.8-7.7) H 10/17/20 04:49 Band Neutrophils # 2.3 K/mm3 10/17/20 04:49 Lymphocytes # (Manual) 0.5 K/mm3 (1.2-5.4) L 10/17/20 04:49 Abs React Lymphs (Man) 0.0 K/mm3 10/17/20 04:49 Monocytes # (Manual) 1.1 K/mm3 (0.0-0.8) H 10/17/20 04:49 Eosinophils # (Manual) 0.0 K/mm3 (0.0-0.4) 10/17/20 04:49 Basophils # (Manual) 0.0 K/mm3 (0.0-0.1) 10/17/20 04:49 Metamyelocytes # 1.9 K/mm3 10/17/20 04:49 Myelocytes # 1.2 K/mm3 10/17/20 04:49 Promyelocytes # 0.0 K/mm3 10/17/20 04:49 Blast Cells # 0.0 K/mm3 10/17/20 04:49 WBC Morphology Not Reportable 10/17/20 04:49 Hypersegmented Neuts Not Reportable 10/17/20 04:49 Hyposegmented Neuts Not Reportable 10/17/20 04:49 Hypogranular Neuts Not Reportable 10/17/20 04:49 Smudge Cells Not Reportable 10/17/20 04:49 Toxic Granulation Not Reportable 10/17/20 04:49 Toxic Vacuolation Not Reportable 10/17/20 04:49 Dohle Bodies Not Reportable 10/17/20 04:49 Pelger-Huet Anomaly Not Reportable 10/17/20 04:49 Andrés Rods Not Reportable 10/17/20 04:49 Platelet Estimate Consistent w auto 10/17/20 04:49 Clumped Platelets Not Reportable 10/17/20 04:49 Plt Clumps, EDTA Not Reportable 10/17/20 04:49 Large Platelets Not Reportable 10/17/20 04:49 Giant Platelets Rare 10/17/20 04:49 Platelet Satelliting Not Reportable 10/17/20 04:49 Plt Morphology Comment Not Reportable 10/17/20 04:49 RBC Morphology Not Reportable 10/17/20 04:49 Dimorphic RBCs Not Reportable 10/17/20 04:49 Polychromasia Not Reportable 10/17/20 04:49 Hypochromasia 2+ 10/17/20 04:49 Poikilocytosis 2+ 10/17/20 04:49 Anisocytosis 3+ 10/17/20 04:49 Microcytosis Not Reportable 10/17/20 04:49 Macrocytosis Not Reportable 10/17/20 04:49 Spherocytes Not Reportable 10/17/20 04:49 Pappenheimer Bodies Not Reportable 10/17/20 04:49 Sickle Cells Not Reportable 10/17/20 04:49 Target Cells Not Reportable 10/17/20 04:49 Tear Drop Cells Not Reportable 10/17/20 04:49 Ovalocytes Not Reportable 10/17/20 04:49 Helmet Cells Not Reportable 10/17/20 04:49 [place] Bodies Not Reportable 10/17/20 04:49 [place] Rings Not Reportable 10/17/20 04:49 Norbert Cells 1+ 10/17/20 04:49 Bite Cells Not Reportable 10/17/20 04:49 Crenated Cell Not Reportable 10/17/20 04:49 Elliptocytes Not Reportable 10/17/20 04:49 Acanthocytes (Spur) Not Reportable 10/17/20 04:49 Rouleaux Not Reportable 10/17/20 04:49 Hemoglobin C Crystals Not Reportable 10/17/20 04:49 Schistocytes Not Reportable 10/17/20 04:49 Malaria parasites Not Reportable 10/17/20 04:49 Dereck Bodies Not Reportable 10/17/20 04:49 Hem Pathologist Commnt No 10/17/20 04:49 PT 23.5 Sec. (12.2-14.9) H 10/18/20 04:06 INR 2.05 (0.87-1.13) H 10/18/20 04:06 APTT 57.6 Sec. (24.2-36.6) H 10/02/20 23:17 Thrombin Time 17.8 Sec. (15.1-19.6) 10/02/20 23:17 ABG pH 7.276 (7.320-7.450) L 10/18/20 04:00 POC ABG pCO2 35.7 mmHg (32.0-48.0) 10/18/20 04:00 POC ABG pO2 77.7 mmHg (83-108) L 10/18/20 04:00 POC ABG HCO3 16.2 10/18/20 04:00 ABG O2 Saturation 95.1 (0-100) 10/18/20 04:00 POC ABG Base Excess -9.7 10/18/20 04:00 ABG Hemoglobin 7.2 (12.0-17.5) L 10/18/20 04:00 ABG Oxyhemoglobin 94.1 (94-98) 10/18/20 04:00 ABG Methemoglobin 0.3 (0.0-1.5) 10/18/20 04:00 ABG Sodium 122.6 mmol/L (136.0-145.0) L 10/18/20 04:00 ABG Potassium 3.6 mmol/L (3.40-4.50) 10/18/20 04:00 ABG Chloride 100.0 mmol/L (98-107) 10/18/20 04:00 ABG Glucose 113 mg/dL (65-95) H 10/18/20 04:00 Carboxyhemoglobin 0.8 (0.5-1.5) 10/18/20 04:00 FiO2 % 50.0 10/18/20 04:00 Sodium 123 mmol/L (137-145) L D 10/18/20 04:06 Potassium 3.9 mmol/L (3.6-5.0) 10/18/20 04:06 Chloride 97.9 mmol/L (98-107) L 10/18/20 04:06 Carbon Dioxide 16 mmol/L (22-30) L 10/18/20 04:06 Anion Gap 13 mmol/L 10/18/20 04:06 BUN 31 mg/dL (9-20) H 10/18/20 04:06 Creatinine 3.1 mg/dL (0.8-1.3) H 10/18/20 04:06 Estimated GFR 24 ml/min 10/18/20 04:06 BUN/Creatinine Ratio 10 % 10/18/20 04:06 Glucose 113 mg/dL (75-100) H 10/18/20 04:06 POC Glucose 97 mg/dL (70-105) 10/18/20 17:47 Hemoglobin A1c 5.2 % (4-6) 10/03/20 05:57 Osmolality 267 Mosm/kg 10/07/20 13:54 Lactic Acid 1.50 mmol/L (0.7-2.0) 10/03/20 04:43 Calcium 7.4 mg/dL (8.4-10.2) L 10/18/20 04:06 Phosphorus 3.00 mg/dL (2.5-4.5) 10/06/20 05:07 Magnesium 1.90 mg/dL (1.7-2.3) 10/06/20 05:07 Iron 42 ug/dL (49-181) L 10/03/20 05:57 TIBC 305 mcg/dL (250-450) 10/03/20 05:57 Total Bilirubin 0.40 mg/dL (0.1-1.2) 10/16/20 11:14 Direct Bilirubin 0.2 mg/dL (0-0.2) 10/16/20 11:14 Indirect Bilirubin 0.2 mg/dL 10/16/20 11:14 AST 136 units/L (5-40) H 10/16/20 11:14 ALT 72 units/L (7-56) H 10/16/20 11:14 Alkaline Phosphatase 240 units/L (35-129) H 10/16/20 11:14 Ammonia 22.0 umol/L (25-60) L 10/02/20 23:17 Total Creatine Kinase 88 units/L (55-170) 10/02/20 23:17 CK-MB (CK-2) 7.5 ng/mL (0.0-4.0) H 10/02/20 23:17 CK-MB (CK-2) Rel Index 8.5 (0-4) H 10/02/20 23:17 Troponin T < 0.010 ng/mL (0.00-0.029) 10/02/20 23:17 Total Protein 5.1 g/dL (6.3-8.2) L 10/16/20 11:14 Albumin 2.1 g/dL (3.9-5) L 10/16/20 11:14 Albumin/Globulin Ratio 0.7 % 10/16/20 11:14 Lipase 17 units/L (13-60) 10/16/20 22:58 Procalcitonin 0.10 ng/mL (<0.15) 10/10/20 10:58 TSH 2.130 mlU/mL (0.270-4.200) 10/07/20 13:54 Total Cortisol 17.4 mcg/dL () 10/09/20 02:46 Arterial Blood Glucose 113 mg/dL (65-95) H 10/18/20 04:00 Arterial Blood Ionized Calcium 4.9 mg/dL (4.6-5.3) 10/17/20 04:00 Urine Eosinophils None seen (None Seen) 10/14/20 Unknown Urine Osmolality 223 Mosm/kg 10/07/20 Unknown Urine Creatinine 144.2 mg/dL (0.1-20.0) H 10/14/20 Unknown Protein/Creatinin Ratio 0.67 10/14/20 Unknown Urine Sodium 10 mmol/L 10/14/20 Unknown Urine Total Protein 97 mg/dL (5-11.8) H 10/14/20 Unknown Salicylates < 0.3 mg/dL (2.8-20.0) L 10/02/20 23:17 Acetaminophen 5.0 ug/mL (10.0-30.0) L 10/02/20 23:17 Plasma/Serum Alcohol < 0.01 % (0-0.07) 10/02/20 23:17 Coronavirus (PCR) Negative (Negative) 10/14/20 08:00 Blood Type O POSITIVE 10/03/20 05:57 Antibody Screen Negative 10/03/20 05:57 Crossmatch See Detail 10/03/20 05:57 Munoz/IV: Voiding Method Indwelling Catheter Active Medications - Current Medications Current Medications: Generic Name Dose Route Start Last Admin Trade Name Freq PRN Reason Stop Dose Admin Acetaminophen 650 mg 10/03/20 02:10 10/06/20 15:28 Acetaminophen 325 Mg Tab PO 650 mg Q4H PRN Administration Pain MILD(1-3)/Fever >100.5/ROMERO Al Hydrox/Mg Hydrox/Simethicone 30 ml 10/03/20 02:10 Alum-Mag Hydroxide-Simethicone [phone]/5ml Oral Liqd 30 Ml PO Q4H PRN Indigestion Lipase/Protease/Amylase 1 each 10/03/20 16:51 Lipase 10,500/Protease 25,000/Amylase 43,750 (Units) Dr Reis FEEDTUBE PRN PRN For Clogged Feeding Tube Dextrose 50 ml 10/16/20 12:42 10/16/20 15:17 Dextrose 50% In Water (25gm) 50 Ml Syringe IV 50 ml Q30MIN PRN Administration Hypoglycemia Protocol Ferrous Sulfate 308 mg 10/16/20 10:00 10/18/20 09:18 Ferrous Sulfate 308 Mg (62mg Elemental Iron) / 7 Ml Elixir FEEDTUBE 308 mg DAILY JOSE Administration Folic Acid 1 mg 10/03/20 10:00 10/18/20 09:18 Folic Acid 1 Mg Tab PO 1 mg QDAY JOSE Administration Furosemide 40 mg 10/18/20 15:00 10/18/20 16:16 Furosemide 40 Mg/4 Ml Inj IV 40 mg DAILY@0600 JOSE Administration Levetiracetam 250 mg/ Dextrose 102.5 mls @ 400 mls/hr 10/10/20 22:00 10/18/20 09:17 IV 400 mls/hr Q12HR JOSE Administration Vasopressin 20 unit/ Sodium 101 mls @ 9.09 mls/hr 10/16/20 13:00 10/18/20 19:11 Chloride IV 0.03 units/min TITR JOSE 9.09 mls/hr Administration Protocol 0.03 UNITS/MIN Dextrose 1,000 mls @ 125 mls/hr 10/16/20 13:00 10/18/20 12:56 D10w IV 125 mls/hr DIRECT JOSE Administration Sodium Bicarbonate 150 meq/ 1,150 mls @ 100 mls/hr 10/16/20 15:00 10/17/20 23:46 Dextrose IV 10/19/20 02:29 Infused DIRECT JOSE Infusion Phenylephrine HCl 100 mg/ 100 mls @ 3 mls/hr 10/16/20 18:00 10/18/20 17:49 Sodium Chloride IV 180 mcg/min TITR JOSE 10.8 mls/hr Administration Protocol 50 MCG/MIN NORepinephrine/NS 8 MG-250 ML 8 mg in 250 mls @ 3.75 mls/hr 10/16/20 19:00 10/18/20 12:00 Norepinephrine/Ns 8 Mg-250 Ml (Double Conc) IV 7 mcg/min TITRATE JOSE 13.125 mls/hr Administration Protocol 2 MCG/MIN Amiodarone HCl 900 mg/ 500 mls @ 16.667 mls/hr 10/16/20 20:00 10/17/20 20:13 Dextrose IV 0.5 mg/min DIRECT JOSE 16.667 mls/hr Administration Protocol 0.5 MG/MIN Dobutamine HCl/Dextrose 500 mg in 250 mls @ 6.908 mls/hr 10/16/20 19:00 10/18/20 12:55 Dobutrex Drip 500mg/D5w 250ml IV 5 mcg/kg/min DIRECT JOSE 13.815 mls/hr Administration Protocol 2.5 MCG/KG/MIN Epinephrine 8 mg/ Sodium 250 mls @ 0 mls/hr 10/16/20 23:45 10/17/20 11:33 Chloride IV 0 mls/hr TITR JOSE Infusion Cefepime HCl 2 gm in 100 mls @ 200 mls/hr 10/17/20 22:00 10/17/20 21:40 Cefepime/Ns 2 Gm/100 Ml IV 10/22/20 22:29 200 mls/hr Q24H JOSE Administration Protocol Sodium Chloride 500 mls @ 0 mls/hr 10/18/20 18:48 Nacl 0.9% 500 Ml IV 10/18/20 23:59 ONCE NR As Directed Magnesium Hydroxide 30 ml 10/03/20 02:10 Magnesium Hydroxide (Mom) Oral Liqd Udc PO Q4H PRN Constipation Metoclopramide HCl 5 mg 10/17/20 09:00 Metoclopramide 10 Mg/2 Ml Inj IV Q6H PRN Nausea And Vomiting Ondansetron HCl 4 mg 10/03/20 02:10 10/07/20 23:19 Ondansetron 4 Mg/2 Ml Inj IV 4 mg Q8H PRN Administration Nausea And Vomiting Pantoprazole Sodium 40 mg 10/04/20 15:00 10/18/20 09:17 Pantoprazole 40 Mg Inj IV 40 mg QDAY JOSE Administration Promethazine HCl 25 mg 10/03/20 02:10 Promethazine 25 Mg Rect Supp SD Q6H PRN N/V IF NPO AND NO IV ACCESS Senna 8.6 mg 10/03/20 02:10 Sennosides 8.6 Mg Tab PO Q12HR PRN Constipation Simple Syrup 15 ml 10/03/20 16:51 10/16/20 18:19 Simple Syrup 15 Ml FEEDTUBE 15 ml PRN PRN Administration Hypoglycemia Simple Syrup 30 ml 10/03/20 16:51 10/16/20 22:02 Simple Syrup 15 Ml FEEDTUBE 30 ml PRN PRN Administration Hypoglycemia Sodium Bicarbonate 325 mg 10/03/20 16:51 Sodium Bicarbonate 325 Mg Tab FEEDTUBE PRN PRN For Clogged Feeding Tube Nutrition/Malnutrition Assess - Dietary Evaluation Nutrition/Malnutrition Findings: Nutrition Notes Start: 10/03/20 08:51 Freq: Status: Active Protocol: Document 10/18/20 09:50 MK (Rec: 10/18/20 09:52 MK [id number]) Nutrition Notes Initial or Follow up Brief Note Current Diagnosis Diabetes Other Pertinent Diagnosis AMS, hypothermia, pneu, anemia , atherosclerotic cerebrovascular disease Current Diet Nepro 1.8 at 40 ml/hr Subjective/Other Information Pt with vomiting yesterday and today. TF turned off. Nutrition Intervention Follow-Up By: 10/20/20 Additional Comments F/u: TF restart and tolerance <TJ WOODS - Last Filed: 10/19/20 07:27> History Interval history: I saw and evaluated the patient. Discussed with the nurse practitioner and agree with their findings and plan as documented in this note. Hospitalist Physical - Constitutional Vitals: Temp Pulse Resp BP Pulse Ox 99.2 F 92 H 30 H 111/53 93 10/19/20 07:00 10/19/20 04:40 10/19/20 04:00 10/19/20 04:40 10/19/20 04:40 HEART Score - HEART Score Troponin: Troponin T < 0.010 ng/mL (0.00-0.029) 10/02/20 23:17 Results - Labs CBC & Chem 7: 10/19/20 04:51 10/19/20 04:51 Labs: Laboratory Last Values WBC 18.2 K/mm3 (4.5-11.0) H 10/19/20 04:51 RBC 3.26 M/mm3 (3.65-5.03) L 10/19/20 04:51 Hgb 7.9 gm/dl (11.8-15.2) L 10/19/20 04:51 Hct 24.6 % (35.5-45.6) L 10/19/20 04:51 MCV 76 fl (84-94) L 10/19/20 04:51 MCH 24 pg (28-32) L 10/19/20 04:51 MCHC 32 % (32-34) 10/19/20 04:51 RDW 30.7 % (13.2-15.2) H 10/19/20 04:51 Plt Count 41 K/mm3 (140-440) L 10/19/20 04:51 Lymph % (Auto) Library Assistant 10/10/20 10:58 [place] % (Auto) 8.3 % (0.0-7.3) H 10/15/20 05:50 Eos % (Auto) 0.3 % (0.0-4.3) 10/15/20 05:50 Baso % (Auto) Library Assistant 10/10/20 10:58 Lymph # (Auto) Library Assistant 10/10/20 10:58 [place] # (Auto) 1.3 K/mm3 (0.0-0.8) H 10/15/20 05:50 Eos # (Auto) 0.0 K/mm3 (0.0-0.4) 10/15/20 05:50 Baso # (Auto) 0.1 K/mm3 (0.0-0.1) 10/15/20 05:50 Add Manual Diff Complete 10/17/20 04:49 Total Counted 100 10/17/20 04:49 Seg Neutrophils % Library Assistant 10/17/20 04:49 Seg Neuts % (Manual) 60.0 % (40.0-70.0) 10/17/20 04:49 Band Neutrophils % 13.0 % 10/17/20 04:49 Lymphocytes % (Manual) 3.0 % (13.4-35.0) L 10/17/20 04:49 Monocytes % (Manual) 6.0 % (0.0-7.3) 10/17/20 04:49 Eosinophils % (Manual) 1.0 % (0.0-4.3) 10/13/20 05:24 Basophils % (Manual) 2.0 % (0.0-1.8) H 10/10/20 10:58 Metamyelocytes % 11.0 % 10/17/20 04:49 Myelocytes % 7.0 % 10/17/20 04:49 Nucleated RBC % 3.0 % (0.0-0.9) H 10/17/20 04:49 Seg Neutrophils # 13.2 K/mm3 (1.8-7.7) H 10/15/20 05:50 Seg Neutrophils # Man 10.6 K/mm3 (1.8-7.7) H 10/17/20 04:49 Band Neutrophils # 2.3 K/mm3 10/17/20 04:49 Lymphocytes # (Manual) 0.5 K/mm3 (1.2-5.4) L 10/17/20 04:49 Abs React Lymphs (Man) 0.0 K/mm3 10/17/20 04:49 Monocytes # (Manual) 1.1 K/mm3 (0.0-0.8) H 10/17/20 04:49 Eosinophils # (Manual) 0.0 K/mm3 (0.0-0.4) 10/17/20 04:49 Basophils # (Manual) 0.0 K/mm3 (0.0-0.1) 10/17/20 04:49 Metamyelocytes # 1.9 K/mm3 10/17/20 04:49 Myelocytes # 1.2 K/mm3 10/17/20 04:49 Promyelocytes # 0.0 K/mm3 10/17/20 04:49 Blast Cells # 0.0 K/mm3 10/17/20 04:49 WBC Morphology Not Reportable 10/17/20 04:49 Hypersegmented Neuts Not Reportable 10/17/20 04:49 Hyposegmented Neuts Not Reportable 10/17/20 04:49 Hypogranular Neuts Not Reportable 10/17/20 04:49 Smudge Cells Not Reportable 10/17/20 04:49 Toxic Granulation Not Reportable 10/17/20 04:49 Toxic Vacuolation Not Reportable 10/17/20 04:49 Dohle Bodies Not Reportable 10/17/20 04:49 Pelger-Huet Anomaly Not Reportable 10/17/20 04:49 Andrés Rods Not Reportable 10/17/20 04:49 Platelet Estimate Consistent w auto 10/17/20 04:49 Clumped Platelets Not Reportable 10/17/20 04:49 Plt Clumps, EDTA Not Reportable 10/17/20 04:49 Large Platelets Not Reportable 10/17/20 04:49 Giant Platelets Rare 10/17/20 04:49 Platelet Satelliting Not Reportable 10/17/20 04:49 Plt Morphology Comment Not Reportable 10/17/20 04:49 RBC Morphology Not Reportable 10/17/20 04:49 Dimorphic RBCs Not Reportable 10/17/20 04:49 Polychromasia Not Reportable 10/17/20 04:49 Hypochromasia 2+ 10/17/20 04:49 Poikilocytosis 2+ 10/17/20 04:49 Anisocytosis 3+ 10/17/20 04:49 Microcytosis Not Reportable 10/17/20 04:49 Macrocytosis Not Reportable 10/17/20 04:49 Spherocytes Not Reportable 10/17/20 04:49 Pappenheimer Bodies Not Reportable 10/17/20 04:49 Sickle Cells Not Reportable 10/17/20 04:49 Target Cells Not Reportable 10/17/20 04:49 Tear Drop Cells Not Reportable 10/17/20 04:49 Ovalocytes Not Reportable 10/17/20 04:49 Helmet Cells Not Reportable 10/17/20 04:49 [place] Bodies Not Reportable 10/17/20 04:49 [place] Rings Not Reportable 10/17/20 04:49 Norbert Cells 1+ 10/17/20 04:49 Bite Cells Not Reportable 10/17/20 04:49 Crenated Cell Not Reportable 10/17/20 04:49 Elliptocytes Not Reportable 10/17/20 04:49 Acanthocytes (Spur) Not Reportable 10/17/20 04:49 Rouleaux Not Reportable 10/17/20 04:49 Hemoglobin C Crystals Not Reportable 10/17/20 04:49 Schistocytes Not Reportable 10/17/20 04:49 Malaria parasites Not Reportable 10/17/20 04:49 Dereck Bodies Not Reportable 10/17/20 04:49 Hem Pathologist Commnt No 10/17/20 04:49 PT 23.5 Sec. (12.2-14.9) H 10/18/20 04:06 INR 2.05 (0.87-1.13) H 10/18/20 04:06 APTT 57.6 Sec. (24.2-36.6) H 10/02/20 23:17 Thrombin Time 17.8 Sec. (15.1-19.6) 10/02/20 23:17 ABG pH 7.234 (7.320-7.450) L 10/19/20 04:00 POC ABG pCO2 45.5 mmHg (32.0-48.0) 10/19/20 04:00 POC ABG pO2 53.9 mmHg (83-108) L 10/19/20 04:00 POC ABG HCO3 18.8 10/19/20 04:00 ABG O2 Saturation 87.6 (0-100) 10/19/20 04:00 POC ABG Base Excess -8.2 10/19/20 04:00 ABG Hemoglobin 8.9 (12.0-17.5) L 10/19/20 04:00 ABG Oxyhemoglobin 86.6 (94-98) L 10/19/20 04:00 ABG Methemoglobin 0.3 (0.0-1.5) 10/19/20 04:00 ABG Sodium 118.1 mmol/L (136.0-145.0) L 10/19/20 04:00 ABG Potassium 3.7 mmol/L (3.40-4.50) 10/19/20 04:00 ABG Chloride 94.0 mmol/L (98-107) L 10/19/20 04:00 ABG Glucose 61 mg/dL (65-95) L 10/19/20 04:00 Carboxyhemoglobin 0.8 (0.5-1.5) 10/19/20 04:00 FiO2 % 50.0 10/19/20 04:00 Sodium 122 mmol/L (137-145) L 10/19/20 04:51 Potassium 3.9 mmol/L (3.6-5.0) 10/19/20 04:51 Chloride 94.6 mmol/L (98-107) L 10/19/20 04:51 Carbon Dioxide 17 mmol/L (22-30) L 10/19/20 04:51 Anion Gap 14 mmol/L 10/19/20 04:51 BUN 33 mg/dL (9-20) H 10/19/20 04:51 Creatinine 3.5 mg/dL (0.8-1.3) H 10/19/20 04:51 Estimated GFR 21 ml/min 10/19/20 04:51 BUN/Creatinine Ratio 9 % 10/19/20 04:51 Glucose 63 mg/dL (75-100) L 10/19/20 04:51 POC Glucose 82 mg/dL (70-105) 10/19/20 06:51 Hemoglobin A1c 5.2 % (4-6) 10/03/20 05:57 Osmolality 267 Mosm/kg 10/07/20 13:54 Lactic Acid 1.50 mmol/L (0.7-2.0) 10/03/20 04:43 Calcium 7.3 mg/dL (8.4-10.2) L 10/19/20 04:51 Phosphorus 3.00 mg/dL (2.5-4.5) 10/06/20 05:07 Magnesium 1.90 mg/dL (1.7-2.3) 10/06/20 05:07 Iron 42 ug/dL (49-181) L 10/03/20 05:57 TIBC 305 mcg/dL (250-450) 10/03/20 05:57 Total Bilirubin 1.50 mg/dL (0.1-1.2) H 10/19/20 04:51 Direct Bilirubin 0.9 mg/dL (0-0.2) H 10/19/20 04:51 Indirect Bilirubin 0.6 mg/dL 10/19/20 04:51 AST 34 units/L (5-40) 10/19/20 04:51 ALT 33 units/L (7-56) 10/19/20 04:51 Alkaline Phosphatase 154 units/L (35-129) H 10/19/20 04:51 Ammonia 22.0 umol/L (25-60) L 10/02/20 23:17 Total Creatine Kinase 88 units/L (55-170) 10/02/20 23:17 CK-MB (CK-2) 7.5 ng/mL (0.0-4.0) H 10/02/20 23:17 CK-MB (CK-2) Rel Index 8.5 (0-4) H 10/02/20 23:17 Troponin T < 0.010 ng/mL (0.00-0.029) 10/02/20 23:17 Total Protein 4.2 g/dL (6.3-8.2) L 10/19/20 04:51 Albumin 1.9 g/dL (3.9-5) L 10/19/20 04:51 Albumin/Globulin Ratio 0.8 % 10/19/20 04:51 Lipase 17 units/L (13-60) 10/16/20 22:58 Procalcitonin 0.10 ng/mL (<0.15) 10/10/20 10:58 TSH 2.130 mlU/mL (0.270-4.200) 10/07/20 13:54 Total Cortisol 17.4 mcg/dL () 10/09/20 02:46 Arterial Blood Glucose 61 mg/dL (65-95) L 10/19/20 04:00 Arterial Blood Ionized Calcium 4.5 mg/dL (4.6-5.3) L 10/19/20 04:00 Urine Eosinophils None seen (None Seen) 10/14/20 Unknown Urine Osmolality 223 Mosm/kg 10/07/20 Unknown Urine Creatinine 144.2 mg/dL (0.1-20.0) H 10/14/20 Unknown Protein/Creatinin Ratio 0.67 10/14/20 Unknown Urine Sodium 10 mmol/L 10/14/20 Unknown Urine Total Protein 97 mg/dL (5-11.8) H 10/14/20 Unknown Salicylates < 0.3 mg/dL (2.8-20.0) L 10/02/20 23:17 Acetaminophen 5.0 ug/mL (10.0-30.0) L 10/02/20 23:17 Plasma/Serum Alcohol < 0.01 % (0-0.07) 10/02/20 23:17 Coronavirus (PCR) Negative (Negative) 10/14/20 08:00 Blood Type O POSITIVE 10/18/20 19:08 Antibody Screen Negative 10/18/20 19:08 Crossmatch See Detail 10/18/20 19:08 Munoz/IV: Voiding Method Indwelling Catheter Active Medications - Current Medications Current Medications: Generic Name Dose Route Start Last Admin Trade Name Freq PRN Reason Stop Dose Admin Acetaminophen 650 mg 10/03/20 02:10 10/06/20 15:28 Acetaminophen 325 Mg Tab PO 650 mg Q4H PRN Administration Pain MILD(1-3)/Fever >100.5/ROMERO Al Hydrox/Mg Hydrox/Simethicone 30 ml 10/03/20 02:10 Alum-Mag Hydroxide-Simethicone 016-755-38ns/5ml Oral Liqd 30 Ml PO Q4H PRN Indigestion Lipase/Protease/Amylase 1 each 10/03/20 16:51 Lipase 10,500/Protease 25,000/Amylase 43,750 (Units) Dr Reis FEEDTUBE PRN PRN For Clogged Feeding Tube Dextrose 50 ml 10/16/20 12:42 10/19/20 06:24 Dextrose 50% In Water (25gm) 50 Ml Syringe IV 50 ml Q30MIN PRN Administration Hypoglycemia Protocol Ferrous Sulfate 308 mg 10/16/20 10:00 10/18/20 09:18 Ferrous Sulfate 308 Mg (62mg Elemental Iron) / 7 Ml Elixir FEEDTUBE 308 mg DAILY JOSE Administration Folic Acid 1 mg 10/03/20 10:00 10/18/20 09:18 Folic Acid 1 Mg Tab PO 1 mg QDAY JOSE Administration Furosemide 40 mg 10/18/20 15:00 10/19/20 05:16 Furosemide 40 Mg/4 Ml Inj IV 40 mg DAILY@0600 JOSE Administration Levetiracetam 250 mg/ Dextrose 102.5 mls @ 400 mls/hr 10/10/20 22:00 10/18/20 22:09 IV 400 mls/hr Q12HR JOSE Administration Vasopressin 20 unit/ Sodium 101 mls @ 9.09 mls/hr 10/16/20 13:00 10/18/20 19:11 Chloride IV 0.03 units/min TITR JOSE 9.09 mls/hr Administration Protocol 0.03 UNITS/MIN Dextrose 1,000 mls @ 125 mls/hr 10/16/20 13:00 10/19/20 05:16 D10w IV 125 mls/hr DIRECT JOSE Administration Phenylephrine HCl 100 mg/ 100 mls @ 3 mls/hr 10/16/20 18:00 10/19/20 03:50 Sodium Chloride IV 160 mcg/min TITR JOSE 9.6 mls/hr Administration Protocol 50 MCG/MIN NORepinephrine/NS 8 MG-250 ML 8 mg in 250 mls @ 3.75 mls/hr 10/16/20 19:00 10/19/20 05:16 Norepinephrine/Ns 8 Mg-250 Ml (Double Conc) IV 7 mcg/min TITRATE JOSE 13.125 mls/hr Administration Protocol 2 MCG/MIN Amiodarone HCl 900 mg/ 500 mls @ 16.667 mls/hr 10/16/20 20:00 10/18/20 21:45 Dextrose IV 0.5 mg/min DIRECT JOSE 16.667 mls/hr Administration Protocol 0.5 MG/MIN Dobutamine HCl/Dextrose 500 mg in 250 mls @ 6.908 mls/hr 10/16/20 19:00 10/18/20 12:55 Dobutrex Drip 500mg/D5w 250ml IV 5 mcg/kg/min DIRECT JOSE 13.815 mls/hr Administration Protocol 2.5 MCG/KG/MIN Epinephrine 8 mg/ Sodium 250 mls @ 0 mls/hr 10/16/20 23:45 10/17/20 11:33 Chloride IV 0 mls/hr TITR JOSE Infusion Cefepime HCl 2 gm in 100 mls @ 200 mls/hr 10/17/20 22:00 10/18/20 21:11 Cefepime/Ns 2 Gm/100 Ml IV 10/22/20 22:29 200 mls/hr Q24H JOSE Administration Protocol Magnesium Hydroxide 30 ml 10/03/20 02:10 Magnesium Hydroxide (Mom) Oral Liqd Udc PO Q4H PRN Constipation Metoclopramide HCl 5 mg 10/17/20 09:00 Metoclopramide 10 Mg/2 Ml Inj IV Q6H PRN Nausea And Vomiting Ondansetron HCl 4 mg 10/03/20 02:10 10/07/20 23:19 Ondansetron 4 Mg/2 Ml Inj IV 4 mg Q8H PRN Administration Nausea And Vomiting Pantoprazole Sodium 40 mg 10/04/20 15:00 10/18/20 09:17 Pantoprazole 40 Mg Inj IV 40 mg QDAY JOSE Administration Promethazine HCl 25 mg 10/03/20 02:10 Promethazine 25 Mg Rect Supp SD Q6H PRN N/V IF NPO AND NO IV ACCESS Senna 8.6 mg 10/03/20 02:10 Sennosides 8.6 Mg Tab PO Q12HR PRN Constipation Simple Syrup 15 ml 10/03/20 16:51 10/19/20 02:08 Simple Syrup 15 Ml FEEDTUBE 15 ml PRN PRN Administration Hypoglycemia Simple Syrup 30 ml 10/03/20 16:51 10/16/20 22:02 Simple Syrup 15 Ml FEEDTUBE 30 ml PRN PRN Administration Hypoglycemia Sodium Bicarbonate 325 mg 10/03/20 16:51 Sodium Bicarbonate 325 Mg Tab FEEDTUBE PRN PRN For Clogged Feeding Tube Nutrition/Malnutrition Assess - Dietary Evaluation Nutrition/Malnutrition Findings: Nutrition Notes Start: 10/03/20 08:51 Freq: Status: Active Protocol: Document 10/18/20 09:50 BETSY (Rec: 10/18/20 09:52 BETSY [id number]) Nutrition Notes Initial or Follow up Brief Note Current Diagnosis Diabetes Other Pertinent Diagnosis AMS, hypothermia, pneu, anemia , atherosclerotic cerebrovascular disease Current Diet Nepro 1.8 at 40 ml/hr Subjective/Other Information Pt with vomiting yesterday and today. TF turned off. Nutrition Intervention Follow-Up By: 10/20/20 Additional Comments F/u: TF restart and tolerance
--- NOTE | 2020-10-18 21:05 | Ultrasound Report ---
ULTRASOUND RENAL INDICATION / CLINICAL INFORMATION: renal ultrasound. COMPARISON: None available. FINDINGS: RIGHT KIDNEY: Length = 9.3 cm. - Echogenicity: Normal. - Cortical Thickness: Normal. - Hydronephrosis: None. - Cyst / Mass: There are couple of simple appearing renal cysts in right kidney, largest of which is in the inferior pole measuring 2 cm. - Stones: None seen. LEFT KIDNEY: Length = 10.0 cm. - Echogenicity: Normal. - Cortical Thickness: Normal. - Hydronephrosis: None. - Cyst / Mass: None. - Stones: None seen. URINARY BLADDER: Decompressed with Jackson catheter. FREE FLUID: None. ADDITIONAL FINDINGS: Small amount of abdominopelvic ascites, right pleural effusion and anasarca. IMPRESSION: 1. Couple of right renal cysts. Otherwise, unremarkable renal ultrasound. 2. Small amount of abdominopelvic ascites, right pleural effusion and anasarca are incidentally note d. Signer Name: Yordan Mueller MD Signed: 10/18/2020 9:01 PM Workstation Name: [id number]
[2020-10-18] MEDS: CEFEPIME/NS 2 GM/100 ML 2 GM/100 ML BAG IV SCH (21:11)
[2020-10-18] MEDS: AMIODARONE 900 MG in DEXTROSE 5% IN WATER 482 ML IV SCH (21:45)
[2020-10-19] MEDS: SIMPLE SYRUP 15 ML FEEDTUBE PRN (02:08)
[2020-10-19] MEDS: PHENYLEPHRINE 100 MG in SODIUM CHLORIDE 0.9% 90 ML IV SCH ×3 (03:50→23:13)
[2020-10-19 05:15] LABS: Hematocrit 24.6 % (35.5-45.6); Hemoglobin 7.9 gm/dl (11.8-15.2); Mean Corpuscular HGB Conc 32 % (32-34); Mean Corpuscular Volume 76 fl (84-94); Red Blood Count 3.26 M/mm3 (3.65-5.03)
[2020-10-19] MEDS: DEXTROSE 10% IN WATER 1,000 ML IV SCH (05:16)
[2020-10-19] MEDS: NORepinephrine/NS 8 MG-250 ML 8 MG/250 ML INFUS..BTL IV SCH ×2 (05:16→23:45)
[2020-10-19] MEDS: FUROSEMIDE 40 MG/4 ML INJ IV SCH (05:16)
[2020-10-19 05:20] LABS: Platelet Count 41 K/mm3 (140-440); Red Cell Distribution Width 30.7 % (13.2-15.2)
[2020-10-19 05:44] LABS: Albumin 1.9 g/dL (3.9-5); Bilirubin,Direct 0.9 mg/dL (0-0.2); Calcium 7.3 mg/dL (8.4-10.2)
--- NOTE | 2020-10-19 06:23 | XRay Report ---
CHEST 1 VIEW INDICATION: hypoxia. COMPARISON: One day prior. FINDINGS: Support devices: Satisfactory position. Heart: Stable. Lungs/Pleura: Pleural parenchymal disease in right has improved, that on the left is unchanged. No pn eumothorax is seen. IMPRESSION: 1. Improved pleuroparenchymal disease in the right lower hemithorax. Signer Name: Del Hinton MD Signed: 10/19/2020 6:18 AM Workstation Name: [id number]
[2020-10-19] MEDS: DEXTROSE 50% IN WATER (25GM) 50 ML SYRINGE IV PRN ×4 (06:24→20:22)
--- NOTE | 2020-10-19 09:13 | Progress Note ---
Assessment and Plan Acute encephalopathy Hyponatremia Hypothermia, resolved Pulmonary infiltrate in right lung on CXR Atherosclerotic cerebrovascular disease Severe anemia -possible GI bleed Severe protein-calorie malnutrition Acute Renal Failure Hypokalemia Plan: discussed with ICU team, will d/c D10W and switch bicarb gtt to D10 with 150 meq NaHCO3 at 150 cc/h No salt tabs as have CHF. Echo done 10/04/20 showed LVEF 25-30% will likely need HD tomorrow due to oliguria and worsening creatinine. no acute indication now Avoid correction more than 8 mmol/l in 24 hours Obtain renal ultrasound Replete potassium as needed Avoid nephrotoxic agents Obtain daily weights Monitor I/O's daily Subjective Date of service: 10/19/20 Principal diagnosis: Ac hypoxemic resp failure; Pneumonia; BETSY; Ac. encephalopathy Interval history: intubated Objective - Vital Signs Vital signs: Vital Signs - 12hr 10/18/20 10/18/20 10/18/20 21:35 21:50 22:30 Temperature 97.0 F L 97.8 F 97.8 F Pulse Rate 76 80 79 Pulse Rate [ From Monitor] Respiratory 30 H 30 H 30 H Rate Blood Pressure 114/56 120/60 122/57 O2 Sat by Pulse 95 Oximetry 10/18/20 10/18/20 10/19/20 23:00 23:41 00:00 Temperature 97.9 F 97.5 F L Pulse Rate 88 78 Pulse Rate [ 88 From Monitor] Respiratory 31 H 30 H Rate Blood Pressure 123/56 O2 Sat by Pulse 95 97 Oximetry 10/19/20 10/19/20 10/19/20 00:10 00:18 04:00 Temperature 98.1 F 99.1 F Pulse Rate 79 77 65 Pulse Rate [ 88 From Monitor] Respiratory 31 H 30 H Rate Blood Pressure 121/64 128/65 O2 Sat by Pulse 95 97 Oximetry 10/19/20 10/19/20 04:40 07:00 Temperature 99.2 F Pulse Rate 92 H Pulse Rate [ From Monitor] Respiratory Rate Blood Pressure 111/53 O2 Sat by Pulse 93 Oximetry - General Appearance General appearance: sedated on ventilator, intubated EENT: ATNC, PERRL, mucous membranes dry Neck: no JVD Respiratory: Present: Decreased Breath Sounds Cardiology: tachycardia Gastrointestinal: normoactive bowel sounds, no tenderness, no distended Integumentary: no rash, warm and dry Neurologic: other (intubated) Musculoskeletal: other (2+ pitting edema in BLE) - Lab 10/19/20 04:51 10/19/20 04:51 Most recent lab results ABG pH 7.234 (7.320-7.450) L 10/19/20 04:00 ABG O2 Saturation 87.6 (0-100) 10/19/20 04:00 Calcium 7.3 mg/dL (8.4-10.2) L 10/19/20 04:51 Phosphorus 3.00 mg/dL (2.5-4.5) 10/06/20 05:07 Magnesium 1.90 mg/dL (1.7-2.3) 10/06/20 05:07 Urine Creatinine 144.2 mg/dL (0.1-20.0) H 10/14/20 Unknown Urine Sodium 10 mmol/L 10/14/20 Unknown Urine Total Protein 97 mg/dL (5-11.8) H 10/14/20 Unknown Medications & Allergies - Medications Allergies/Adverse Reactions: Allergies No Known Allergies Allergy (Unverified 10/03/20 12:27) Home Medications: Home Medications Medication Instructions Recorded Confirmed Last Taken Type Unobtainable 10/10/20 10/10/20 Unknown History Active Medications: Generic Name Dose Route Start Last Admin Trade Name Freq PRN Reason Stop Dose Admin Acetaminophen 650 mg 10/03/20 02:10 10/06/20 15:28 Acetaminophen 325 Mg Tab PO 650 mg Q4H PRN Administration Pain MILD(1-3)/Fever >100.5/ROMERO Al Hydrox/Mg Hydrox/Simethicone 30 ml 10/03/20 02:10 Alum-Mag Hydroxide-Simethicone [id number]/5ml Oral Liqd 30 Ml PO Q4H PRN Indigestion Lipase/Protease/Amylase 1 each 10/03/20 16:51 Lipase 10,500/Protease 25,000/Amylase 43,750 (Units) Dr Reis FEEDTUBE PRN PRN For Clogged Feeding Tube Dextrose 50 ml 10/16/20 12:42 10/19/20 06:24 Dextrose 50% In Water (25gm) 50 Ml Syringe IV 50 ml Q30MIN PRN Administration Hypoglycemia Protocol Ferrous Sulfate 308 mg 10/16/20 10:00 10/18/20 09:18 Ferrous Sulfate 308 Mg (62mg Elemental Iron) / 7 Ml Elixir FEEDTUBE 308 mg DAILY JOSE Administration Folic Acid 1 mg 10/03/20 10:00 10/18/20 09:18 Folic Acid 1 Mg Tab PO 1 mg QDAY JOSE Administration Furosemide 40 mg 10/18/20 15:00 10/19/20 05:16 Furosemide 40 Mg/4 Ml Inj IV 40 mg DAILY@0600 JOSE Administration Levetiracetam 250 mg/ Dextrose 102.5 mls @ 400 mls/hr 10/10/20 22:00 10/18/20 22:09 IV 400 mls/hr Q12HR JOSE Administration Vasopressin 20 unit/ Sodium 101 mls @ 9.09 mls/hr 10/16/20 13:00 10/18/20 19:11 Chloride IV 0.03 units/min TITR JOSE 9.09 mls/hr Administration Protocol 0.03 UNITS/MIN Phenylephrine HCl 100 mg/ 100 mls @ 3 mls/hr 10/16/20 18:00 10/19/20 03:50 Sodium Chloride IV 160 mcg/min TITR JOSE 9.6 mls/hr Administration Protocol 50 MCG/MIN NORepinephrine/NS 8 MG-250 ML 8 mg in 250 mls @ 3.75 mls/hr 10/16/20 19:00 10/19/20 05:16 Norepinephrine/Ns 8 Mg-250 Ml (Double Conc) IV 7 mcg/min TITRATE JOSE 13.125 mls/hr Administration Protocol 2 MCG/MIN Amiodarone HCl 900 mg/ 500 mls @ 16.667 mls/hr 10/16/20 20:00 10/18/20 21:45 Dextrose IV 0.5 mg/min DIRECT JOSE 16.667 mls/hr Administration Protocol 0.5 MG/MIN Dobutamine HCl/Dextrose 500 mg in 250 mls @ 6.908 mls/hr 10/16/20 19:00 10/18/20 12:55 Dobutrex Drip 500mg/D5w 250ml IV 5 mcg/kg/min DIRECT JOSE 13.815 mls/hr Administration Protocol 2.5 MCG/KG/MIN Epinephrine 8 mg/ Sodium 250 mls @ 0 mls/hr 10/16/20 23:45 10/17/20 11:33 Chloride IV 0 mls/hr TITR JOSE Infusion Cefepime HCl 2 gm in 100 mls @ 200 mls/hr 10/17/20 22:00 10/18/20 21:11 Cefepime/Ns 2 Gm/100 Ml IV 10/22/20 22:29 200 mls/hr Q24H JOSE Administration Protocol Sodium Bicarbonate 150 meq/ 1,150 mls @ 125 mls/hr 10/19/20 08:58 Dextrose IV DIRECT JOSE Magnesium Hydroxide 30 ml 10/03/20 02:10 Magnesium Hydroxide (Mom) Oral Liqd Udc PO Q4H PRN Constipation Metoclopramide HCl 5 mg 10/17/20 09:00 Metoclopramide 10 Mg/2 Ml Inj IV Q6H PRN Nausea And Vomiting Ondansetron HCl 4 mg 10/03/20 02:10 10/07/20 23:19 Ondansetron 4 Mg/2 Ml Inj IV 4 mg Q8H PRN Administration Nausea And Vomiting Pantoprazole Sodium 40 mg 10/04/20 15:00 10/18/20 09:17 Pantoprazole 40 Mg Inj IV 40 mg QDAY JOSE Administration Promethazine HCl 25 mg 10/03/20 02:10 Promethazine 25 Mg Rect Supp [place] Q6H PRN N/V IF NPO AND NO IV ACCESS Senna 8.6 mg 10/03/20 02:10 Sennosides 8.6 Mg Tab PO Q12HR PRN Constipation Simple Syrup 15 ml 10/03/20 16:51 10/19/20 02:08 Simple Syrup 15 Ml FEEDTUBE 15 ml PRN PRN Administration Hypoglycemia Simple Syrup 30 ml 10/03/20 16:51 10/16/20 22:02 Simple Syrup 15 Ml FEEDTUBE 30 ml PRN PRN Administration Hypoglycemia Sodium Bicarbonate 325 mg 10/03/20 16:51 Sodium Bicarbonate 325 Mg Tab FEEDTUBE PRN PRN For Clogged Feeding Tube
[2020-10-19] MEDS: DOBUTamine/D5W 500 MG/250 ML 500 MG/250 ML BAG IV SCH (09:32)
[2020-10-19] MEDS: levETIRAcetam 250 MG in DEXTROSE 5% IN WATER 100 ML IV SCH ×2 (09:32→22:45)
[2020-10-19] MEDS: FERROUS SULFATE 308 MG (62mg Elemental Iron) / 7 ML ELIXIR FEEDTUBE SCH (10:46)
[2020-10-19] MEDS: MULTIVITAMIN / MINERAL ORAL LIQUID 15 ML PO SCH (10:46)
[2020-10-19] MEDS: FOLIC ACID 1 MG TAB PO SCH (10:46)
[2020-10-19] MEDS: PANTOPRAZOLE 40 MG INJ IV SCH (10:46)
--- NOTE | 2020-10-19 12:15 | Progress Note ---
Assessment and Plan Paroxysmal Afib w/RVR Tachycardia HFrEF A. fib CVR * Continue amiodarone drip for rate control. Continue to monitor hepatic i ndices * No anticoagulation in setting of severe anemia and thrombocytopenia Heart failure reduced ejection fraction * Echo 10/04/2020-EF 25 to 30%, right ventricle severely dilated and moderately hypokinetic, left atrium is mildly dilated, right atrium severely dilated, moderate to severe tricuspid regurgitation, moderate mitral regurgitation tricuspid annulus dilated. * GDMT as tolerated: no beta-jose/ELADIA I in setting of hypotension requiring multiple vasopressors. No aspirin in setting of severe anemia and thrombocytopenia due to risk of bleeding. Will hold statin therapy due to elevated liver indices. We will plan to resume GDMT once patient is hemodynamically stable. Altered mental status/CVA * Neurology is following BETSY * Avoid nephrotoxic agents. Nephrology following Acute hypoxic repiratory failure * Pulmonology following Continue amiodarone drip for rate control. Will follow Patient seen in conjunction with Dr. Bang who agrees with this plan of care. - Patient Problems (1) Afib Current Visit: Yes Status: Acute (2) Acute encephalopathy Current Visit: Yes Status: Acute (3) Atherosclerotic cerebrovascular disease Current Visit: Yes Status: Acute (4) Hypoglycemia Current Visit: Yes Status: Acute (5) Left-sided weakness Current Visit: Yes Status: Acute (6) Microcytic anemia Current Visit: Yes Status: Acute (7) Pulmonary infiltrate in right lung on CXR Current Visit: Yes Status: Acute (8) HFrEF (heart failure with reduced ejection fraction) Current Visit: Yes Status: Acute (9) Dilated cardiomyopathy Current Visit: Yes Status: Acute Subjective Date of service: 10/19/20 Principal diagnosis: Ac hypoxemic resp failure; Pneumonia; BETSY; Ac. encephalopathy Interval history: Currently intubated and unresponsive. Telemetry reviewed: Atrial fib 70s with no events overnight Objective Last Vital Signs Temp 98.0 F 10/19/20 11:41 Pulse 81 10/19/20 09:21 Resp 30 H 10/19/20 08:00 BP 115/53 10/19/20 09:21 Pulse Ox 94 10/19/20 09:21 - Physical Examination General: Other (intubated) HEENT: Positive: Mucus Membranes Dry Neck: Positive: trachea midline Cardiac: Positive: irregularly irregular, S1/S2 Lungs: Positive: Normal Exam, Ventilated Respirations Neuro: Positive: Other (intubated) Abdomen: Positive: Soft Skin: Negative: Rash Extremities: Present: upper extr. pulses, lower extr. pulses - Labs and Meds Cardiac Enzymes 10/19/20 Range/Units 04:51 AST 34 (5-40) units/L CBC 10/18/20 10/19/20 Range/Units Unknown 04:51 WBC 19.8 H 18.2 H (4.5-11.0) K/mm3 RBC 2.95 L 3.26 L (3.65-5.03) M/mm3 Hgb 6.9 L 7.9 L (11.8-15.2) gm/dl Hct 22.2 L 24.6 L (35.5-45.6) % Plt Count 28 L 41 L (140-440) K/mm3 Comprehensive Metabolic Panel 10/19/20 Range/Units 04:51 Sodium 122 L (137-145) mmol/L Potassium 3.9 (3.6-5.0) mmol/L Chloride 94.6 L (98-107) mmol/L Carbon Dioxide 17 L (22-30) mmol/L BUN 33 H (9-20) mg/dL Creatinine 3.5 H (0.8-1.3) mg/dL Glucose 63 L (75-100) mg/dL Calcium 7.3 L (8.4-10.2) mg/dL Direct Bilirubin 0.9 H (0-0.2) mg/dL Indirect Bilirubin 0.6 mg/dL AST 34 (5-40) units/L ALT 33 (7-56) units/L Alkaline Phosphatase 154 H (35-129) units/L Total Protein 4.2 L (6.3-8.2) g/dL Albumin 1.9 L (3.9-5) g/dL - Imaging and Cardiology EKG: report reviewed, image reviewed Echo: report reviewed - Telemetry EKG Rhythm: Atrial Fibrillation - Allied health notes Allied health notes reviewed: nursing
[2020-10-19] MEDS: WATER IV SCH ×2 (12:54→20:45)
[2020-10-19] MEDS: DEXTROSE 10% IV SCH ×2 (12:54→20:45)
[2020-10-19] MEDS: SODIUM BICARBONATE IV SCH ×2 (12:54→20:45)
--- NOTE | 2020-10-19 15:48 | Progress Note ---
<KATELINEVERETT H. - Last Filed: 10/19/20 16:19> Assessment and Plan Assessment and plan: This is 74-year-old male with GERD admitted with arthrosclerotic calcification, anemia and hypoglycemia. Neuro: Acute metabolic encephalopathy, significant narrowing in bilateral posterior cerebral arteries, left-sided hemiparesis with aphasia, atherosclerotic cerebrovascular disease -Avoid delirium -Patient is not sedated -Minimally interactive at this time, decorticate posturing to pain to BLE, triple flex to BLE, Intact cough/gag and pupils are very sluggish to reaction -CTA head/CTA neck completed-> see results -MRI brain completed-> see results, findings suggestive of ventriculomegaly -Thiamine and folate daily -Keppra -Seizure precautions -Neurology consulted, appreciate recommendations -EEG completed which cannot rule out acute seizure with postictal state Cardio: SB-SR, hypotension, afib, HFrEF (10-15%) -Levophed, phenylepi, dobutamine, vasopressor -MAP goal greater than 65 -Blood pressure monitoring per protocol -PICC 10/16 -Cardiology consulted, appreciate recommendations -no anticoagulation per cards for now -Amio for afib -Echo completed-> see results, EF 25-30% Respiratory: Acute hypoxic respiratory failure; mixed resp and metabolic acidosis -Patient was intubated on 10/15 -VAP bundle -Current vent settings: Assist control, tidal volume 500, rate 30, PEEP of 8 on 50% FiO2 -Intubated with 7.5 OETT 24 at the lips -[facility] following -VAP bundle -10/19 reviewed CXR and ABG reviewed -Daily CXR and ABG -SBT/SAT when appropriate GI:? GIB, oropharyngeal dysphagia, severe protein-calorie malnutrition -Nutrition consult for tube feedings -GI consulted, appreciate recommendations -GI will hold off EGD/PEG given acute clinical worsening with respiratory failure -Past 24 hours net +[phone] -PPI with Protonix -BR with Senokot -NGT to LIS : Hyponatremia,metabolic acidosis, acute kidney injury secondary to acute tubular necrosis, -Nephrology consulted, appreciate recommendations -Strict intake and output -Monitor BMP -munoz for I&O -D10 with 150meq of HCO3 per nephrology recommendations -Lasix restarted per nephro -Nephrology will reassess for HD tomorrow Heme: Iron deficient anemia, leukocytosis, supratherapeutic INR, superfical venous thrombus, thrombocytopenia -Likely secondary to malnutrition -S/p 4 units of PRBC and 1 unit plt -Iron/multivitamin supplements -GI consulted, patient recommendations -Monitor H/H -Hold off EGD/colonoscopy given acute clinical worsening with respiratory failure per GI -Trend CBC -Bilateral upper and lower extremity Doppler ultrasound shows occlusive superficial venous thrombus of left basilic and cephalic vein. -Monitor INR and bleeding Endo: Persistent hypoglycemia -D10 with HCO3 gtt per nephro -Stopped D5W gtt -Accu-Cheks every 4 -Hypoglycemia protocol -Avoid hypoglycemia ID: Pulmonary infiltrate in right lung, Hypothermia -COVID-19 PCR negative -Antibiotic therapy with cefepime -Monitor CBC and temperature curve -Intermittent Joseph hugger use -TSH 2.1 The high probability of a clinically significant, sudden or life threatening deterioration of the [multi] system(s) required my full and direct attention, i ntervention and personal management. The aggregate critical care time was [60] minutes. This time is in addition to time spent performing reported procedures but includes the following: [x] Data Review and interpretation [x] Patient assessment and monitoring of vital signs [x] Documentation [x] Medication orders and management Disposition Plan: icu Total Time Spent with Patient (Minutes): 60 History Interval history: This is 74-year-old male with GERD who presented with AMS and left-sided weakness on 10/03 after being found incontinent in feces and urine on bed. Patient was only able to answer simple questions to the EMS. Upon presentation to the ED patient was confused. CT head showed cerebral with arthrosclerotic calcification. Work-up in the emergency department revealed anemia and hypoglycemia. Patient admitted to the hospital service for further work-up. 10/03/20: CT of the head no acute finding but showed a cerebral atrophy with suspicious atrophy and atherosclerotic calcification within the distal right middle cerebral artery. Patient also noted with hemoglobin of 5.8, received 1 unit of packed RBC and ordered for tomorrow Neuro is consulted, Covid test is negative We will check stool for occult blood MRI brain ordered we will follow Will hold any oral medicine until cleared by speech or passes the bedside swallow eval Patient noted to have severe hypoglycemic, will place on D10W Follow H&H and BMP Continue current management plan as dictated in the HPI 10/04/20: no acute findings in MRI, pending EEG, s/p 3 units PRBC transfusion. follow speech JACQUELINE rivera for now, h/h stable, GI consulted - follow recommendation. 10/05/20 Patient with acute encephalopathy, severe anemia s/p PRBC transfusion. GI following. Hgb 9.8 today. Will repeat in am. Left sided weakness. MRI negative for stroke. Neurology following. 10/06/20 Patient with encephalopathy, severe anemia s/p PRBC transfusion. Hgb 9.4 today. Patient has left sided weakness but MRI neg. Patient needs PEG tube. Will talk with family. Hypokalemia. Replace Q6h X 2. Check Mg 10/07/20 Patient with encephalopathy, severe anemia s/p PRBC transfusion. Hgb 9.6 today. Patient has left sided weakness but MRI neg. Patient needs PEG tube. Will talk with family. Hyponatremia of 128. This may be due to D10% he was on prior to NG tube. Stopped 10% Dextrose. Consulted Nephrology 10/08/20 Patient with encephalopathy, severe anemia s/p PRBC transfusion. Hgb 9.6 today. Patient has left sided weakness but MRI neg. Patient needs PEG tube. Hyponatremia worse today 126. This is due to D10% resumed last night because of hypoglycemia. I discussed with Dr. Herrera. Stop 10%Dextrose. Start D5NS Spoke to daughterCindy, yesterday and gave update. She wants PEG tube placed. Discussed plan with Dr.Chokshi GI. He wants to do upper and lower endoscopy to evaluate anemia, before PEG tube 10/09/20 Patient with encephalopathy, severe anemia s/p PRBC transfusion. Hgb 10.3 today. Patient has left sided weakness but MRI neg. Patient needs PEG tube. Hyponatremia still present Na 126 today. This is due to D10% resumed again last night because of hypoglycemia. Nephrology had recommended D5NS but 10% Dextrose restarted overnight because of hypoglycemia. Nurses unable to place NG tube. I discussed with Dr. Otero today and he will do. Spoke to Cindy hanson, yesterday and gave update. She wants PEG tube placed. Discussed plan with Dr.Chokshi GI. He wants to do upper and lower endoscopy to evaluate anemia, before PEG tube Today Na still 126. I discussed with Dr. Herrera and he recommended D10NS. I called Pharmacy. They will mix special D10NS drip. Patient had bilateral pneumonia on CXR therefore started iv Antibiotics, blood cultures. yesterday. Consulted ID 10/10/2020. Patient remains encephalopathic with hemoglobin stabilizing yesterday. Recheck H&H. Patient with left-sided weakness but MRI negative. Fluoroscopic NG tube placement completed yesterday. Await GI to perform EGD and colonoscopy. Follow-up hyponatremia with BMP results. Dr. Aldrich Spoke to daughter, Cindy Singh, and gave update. Daughter wants PEG tube placed. Continue IV antibiotics for bilateral pneumonia. ID consulted. Follow-up procalcitonin levels. 10/11/2020. Patient's hemoglobin remained stable today at 9.5. However, patient noted to be hypotensive with systolic blood pressure of 83. Patient received NS 250 cc bolus with improvement of blood pressure systolically to 123. GI plans to perform EGD/colonoscopy tomorrow. Hyponatremia improving. Start IV fluid of normal saline at 75 cc an hour x1 L 10/12/2020. Patient noted to have some gurgling of the upper airway. NG tube was placed to low intermittent suction. Check chest x-ray and KUB to rule out aspiration and/or ileus. Continue to monitor. H/H remained stable. ID stopped antibiotics due to normal procalcitonin. Speech evaluation 10/13/2020. Patient remains encephalopathic. I discussed overall mental status with the daughter yesterday and updated her with plan of care. Neurology reports: CT angio of the head that is a significant narrowing seen in both posterior cerebral arteries - and no signs of large vessel -CT of the head no acute finding but showed a cerebral atrophy with suspicious atrophy and atherosclerotic calcification within the distal right middle cerebral artery. -MRI brain without any acute findings - EEG completed yesterday remarkable for diffuse slowing 3-4 Hz and with occassional triphasic waves , no epileptiform discharges is noted -- full report to follow -Repeat MRI brain showed no acute finding Keppra was decreased to 250 mg IV twice daily and thiamine was added x3 days. No LP for now due to lack of any inflammatory findings. Repeat EEG per neurology. Sodium level has improved. Serum creatinine has increased to 1.6 today. Avoid nephrotoxic agents and monitor I/O's daily. Salt tabs 2 g 3 times daily per nephrology 10/14/2020. Patient remains encephalopathic. MRI, EEG and CT results noted above. Continue supportive care. Defer to neurology recommendations regarding mental status/encephalopathy. Continue salt tabs per nephrology. Follow-up BMP. Avoid nephrotoxic agents and monitor I/O's daily. Continue NG tube feedings. PEG placement per GI. 10/15/2020. Patient noted to have significant respiratory distress. Patient with tachypnea, some accessory muscle use, labored breathing and coarse breath sounds and sonorous respirations. Dr. Maldonado from the emergency department intubated the patient. Dr. Floyd was consulted and notified. The patient will be transferred to the ICU and continued on mechanical ventilation. Follow-up chest x-ray. 10/16: Patient is having persistent hypoglycemia despite being on D10 23% saline at 100ml/hr. given multiple amps of D50 with minimal response. The patient IV fluids changed to D5W at 125. Repeat BMP in the p.m. 10/17: hypoglycemia better, remains on levophed, epi, neoshynephrine, dobumatine and bicarb gtt this morning. RN is slowly titrating vasopressor as tolerated. Updated daughter Mignon today and relayed new findings including posturing of BUE to pain. 10/18: Patient is being slowly weaned off of vasopressor support by RN. Patient remains on phenyl epinephrine, vasopressin, norepinephrine and amiodarone. Nephrology will resume Lasix. Patient is hyponatremic today however he is on a bicarb drip which we will add today. This evening patient noted to be anemic and have low platelets. Transfuse platelets and PRBC. NGT to suction 10/19: remains on vasopressor support, renal will reassess HD tomorrow. Patient with significant edema. Dr. Gorman spoke to family who wishes for code status to not change. Hospitalist Physical - Constitutional Vitals: Temp Pulse Resp BP Pulse Ox 98.0 F 90 30 H 109/58 95 10/19/20 11:41 10/19/20 12:32 10/19/20 12:00 10/19/20 12:32 10/19/20 12:32 General appearance: Present: other (Not responsive to voice or touch. NG tube in place. ) - EENT Eyes: Absent: PERRL ENT: dentition normal - Neck Neck: Absent: masses or JVD, cervical LAD - Respiratory Respiratory effort: normal Respiratory: bilateral: diminished - Cardiovascular Rhythm: regular Heart Sounds: Present: S1 & S2. Absent: systolic murmur, diastolic murmur - Extremities Extremity abnormal: edema Peripheral Pulses: within normal limits - Abdominal General gastrointestinal: soft, non-tender, hypoactive bowel sounds - Psychiatric Psychiatric: other - Neurologic Neurologic: other - Allied Health Allied health notes reviewed: nursing, RT, social work HEART Score - HEART Score Troponin: Troponin T < 0.010 ng/mL (0.00-0.029) 10/02/20 23:17 Results - Labs CBC & Chem 7: 10/19/20 04:51 10/19/20 04:51 Labs: Laboratory Last Values WBC 18.2 K/mm3 (4.5-11.0) H 10/19/20 04:51 RBC 3.26 M/mm3 (3.65-5.03) L 10/19/20 04:51 Hgb 7.9 gm/dl (11.8-15.2) L 10/19/20 04:51 Hct 24.6 % (35.5-45.6) L 10/19/20 04:51 MCV 76 fl (84-94) L 10/19/20 04:51 MCH 24 pg (28-32) L 10/19/20 04:51 MCHC 32 % (32-34) 10/19/20 04:51 RDW 30.7 % (13.2-15.2) H 10/19/20 04:51 Plt Count 41 K/mm3 (140-440) L 10/19/20 04:51 Lymph % (Auto) Visitor Use Assistant 10/10/20 10:58 [place] % (Auto) 8.3 % (0.0-7.3) H 10/15/20 05:50 Eos % (Auto) 0.3 % (0.0-4.3) 10/15/20 05:50 Baso % (Auto) Visitor Use Assistant 10/10/20 10:58 Lymph # (Auto) Visitor Use Assistant 10/10/20 10:58 [place] # (Auto) 1.3 K/mm3 (0.0-0.8) H 10/15/20 05:50 Eos # (Auto) 0.0 K/mm3 (0.0-0.4) 10/15/20 05:50 Baso # (Auto) 0.1 K/mm3 (0.0-0.1) 10/15/20 05:50 Add Manual Diff Complete 10/17/20 04:49 Total Counted 100 10/17/20 04:49 Seg Neutrophils % Visitor Use Assistant 10/17/20 04:49 Seg Neuts % (Manual) 60.0 % (40.0-70.0) 10/17/20 04:49 Band Neutrophils % 13.0 % 10/17/20 04:49 Lymphocytes % (Manual) 3.0 % (13.4-35.0) L 10/17/20 04:49 Monocytes % (Manual) 6.0 % (0.0-7.3) 10/17/20 04:49 Eosinophils % (Manual) 1.0 % (0.0-4.3) 10/13/20 05:24 Basophils % (Manual) 2.0 % (0.0-1.8) H 10/10/20 10:58 Metamyelocytes % 11.0 % 10/17/20 04:49 Myelocytes % 7.0 % 10/17/20 04:49 Nucleated RBC % 3.0 % (0.0-0.9) H 10/17/20 04:49 Seg Neutrophils # 13.2 K/mm3 (1.8-7.7) H 10/15/20 05:50 Seg Neutrophils # Man 10.6 K/mm3 (1.8-7.7) H 10/17/20 04:49 Band Neutrophils # 2.3 K/mm3 10/17/20 04:49 Lymphocytes # (Manual) 0.5 K/mm3 (1.2-5.4) L 10/17/20 04:49 Abs React Lymphs (Man) 0.0 K/mm3 10/17/20 04:49 Monocytes # (Manual) 1.1 K/mm3 (0.0-0.8) H 10/17/20 04:49 Eosinophils # (Manual) 0.0 K/mm3 (0.0-0.4) 10/17/20 04:49 Basophils # (Manual) 0.0 K/mm3 (0.0-0.1) 10/17/20 04:49 Metamyelocytes # 1.9 K/mm3 10/17/20 04:49 Myelocytes # 1.2 K/mm3 10/17/20 04:49 Promyelocytes # 0.0 K/mm3 10/17/20 04:49 Blast Cells # 0.0 K/mm3 10/17/20 04:49 WBC Morphology Not Reportable 10/17/20 04:49 Hypersegmented Neuts Not Reportable 10/17/20 04:49 Hyposegmented Neuts Not Reportable 10/17/20 04:49 Hypogranular Neuts Not Reportable 10/17/20 04:49 Smudge Cells Not Reportable 10/17/20 04:49 Toxic Granulation Not Reportable 10/17/20 04:49 Toxic Vacuolation Not Reportable 10/17/20 04:49 Dohle Bodies Not Reportable 10/17/20 04:49 Pelger-Huet Anomaly Not Reportable 10/17/20 04:49 Andrés Rods Not Reportable 10/17/20 04:49 Platelet Estimate Consistent w auto 10/17/20 04:49 Clumped Platelets Not Reportable 10/17/20 04:49 Plt Clumps, EDTA Not Reportable 10/17/20 04:49 Large Platelets Not Reportable 10/17/20 04:49 Giant Platelets Rare 10/17/20 04:49 Platelet Satelliting Not Reportable 10/17/20 04:49 Plt Morphology Comment Not Reportable 10/17/20 04:49 RBC Morphology Not Reportable 10/17/20 04:49 Dimorphic RBCs Not Reportable 10/17/20 04:49 Polychromasia Not Reportable 10/17/20 04:49 Hypochromasia 2+ 10/17/20 04:49 Poikilocytosis 2+ 10/17/20 04:49 Anisocytosis 3+ 10/17/20 04:49 Microcytosis Not Reportable 10/17/20 04:49 Macrocytosis Not Reportable 10/17/20 04:49 Spherocytes Not Reportable 10/17/20 04:49 Pappenheimer Bodies Not Reportable 10/17/20 04:49 Sickle Cells Not Reportable 10/17/20 04:49 Target Cells Not Reportable 10/17/20 04:49 Tear Drop Cells Not Reportable 10/17/20 04:49 Ovalocytes Not Reportable 10/17/20 04:49 Helmet Cells Not Reportable 10/17/20 04:49 [place] Bodies Not Reportable 10/17/20 04:49 [place] Rings Not Reportable 10/17/20 04:49 [place] Cells 1+ 10/17/20 04:49 Bite Cells Not Reportable 10/17/20 04:49 Crenated Cell Not Reportable 10/17/20 04:49 Elliptocytes Not Reportable 10/17/20 04:49 Acanthocytes (Spur) Not Reportable 10/17/20 04:49 Rouleaux Not Reportable 10/17/20 04:49 Hemoglobin C Crystals Not Reportable 10/17/20 04:49 Schistocytes Not Reportable 10/17/20 04:49 Malaria parasites Not Reportable 10/17/20 04:49 Dereck Bodies Not Reportable 10/17/20 04:49 Hem Pathologist Commnt No 10/17/20 04:49 PT 23.5 Sec. (12.2-14.9) H 10/18/20 04:06 INR 2.05 (0.87-1.13) H 10/18/20 04:06 APTT 57.6 Sec. (24.2-36.6) H 10/02/20 23:17 Thrombin Time 17.8 Sec. (15.1-19.6) 10/02/20 23:17 ABG pH 7.234 (7.320-7.450) L 10/19/20 04:00 POC ABG pCO2 45.5 mmHg (32.0-48.0) 10/19/20 04:00 POC ABG pO2 53.9 mmHg (83-108) L 10/19/20 04:00 POC ABG HCO3 18.8 10/19/20 04:00 ABG O2 Saturation 87.6 (0-100) 10/19/20 04:00 POC ABG Base Excess -8.2 10/19/20 04:00 ABG Hemoglobin 8.9 (12.0-17.5) L 10/19/20 04:00 ABG Oxyhemoglobin 86.6 (94-98) L 10/19/20 04:00 ABG Methemoglobin 0.3 (0.0-1.5) 10/19/20 04:00 ABG Sodium 118.1 mmol/L (136.0-145.0) L 10/19/20 04:00 ABG Potassium 3.7 mmol/L (3.40-4.50) 10/19/20 04:00 ABG Chloride 94.0 mmol/L (98-107) L 10/19/20 04:00 ABG Glucose 61 mg/dL (65-95) L 10/19/20 04:00 Carboxyhemoglobin 0.8 (0.5-1.5) 10/19/20 04:00 FiO2 % 50.0 10/19/20 04:00 Sodium 122 mmol/L (137-145) L 10/19/20 04:51 Potassium 3.9 mmol/L (3.6-5.0) 10/19/20 04:51 Chloride 94.6 mmol/L (98-107) L 10/19/20 04:51 Carbon Dioxide 17 mmol/L (22-30) L 10/19/20 04:51 Anion Gap 14 mmol/L 10/19/20 04:51 BUN 33 mg/dL (9-20) H 10/19/20 04:51 Creatinine 3.5 mg/dL (0.8-1.3) H 10/19/20 04:51 Estimated GFR 21 ml/min 10/19/20 04:51 BUN/Creatinine Ratio 9 % 10/19/20 04:51 Glucose 63 mg/dL (75-100) L 10/19/20 04:51 POC Glucose 73 mg/dL (70-105) 10/19/20 15:35 Hemoglobin A1c 5.2 % (4-6) 10/03/20 05:57 Osmolality 267 Mosm/kg 10/07/20 13:54 Lactic Acid 1.50 mmol/L (0.7-2.0) 10/03/20 04:43 Calcium 7.3 mg/dL (8.4-10.2) L 10/19/20 04:51 Phosphorus 3.00 mg/dL (2.5-4.5) 10/06/20 05:07 Magnesium 1.90 mg/dL (1.7-2.3) 10/06/20 05:07 Iron 42 ug/dL (49-181) L 10/03/20 05:57 TIBC 305 mcg/dL (250-450) 10/03/20 05:57 Total Bilirubin 1.50 mg/dL (0.1-1.2) H 10/19/20 04:51 Direct Bilirubin 0.9 mg/dL (0-0.2) H 10/19/20 04:51 Indirect Bilirubin 0.6 mg/dL 10/19/20 04:51 AST 34 units/L (5-40) 10/19/20 04:51 ALT 33 units/L (7-56) 10/19/20 04:51 Alkaline Phosphatase 154 units/L (35-129) H 10/19/20 04:51 Ammonia 22.0 umol/L (25-60) L 10/02/20 23:17 Total Creatine Kinase 88 units/L (55-170) 10/02/20 23:17 CK-MB (CK-2) 7.5 ng/mL (0.0-4.0) H 10/02/20 23:17 CK-MB (CK-2) Rel Index 8.5 (0-4) H 10/02/20 23:17 Troponin T < 0.010 ng/mL (0.00-0.029) 10/02/20 23:17 Total Protein 4.2 g/dL (6.3-8.2) L 10/19/20 04:51 Albumin 1.9 g/dL (3.9-5) L 10/19/20 04:51 Albumin/Globulin Ratio 0.8 % 10/19/20 04:51 Lipase 17 units/L (13-60) 10/16/20 22:58 Procalcitonin 0.10 ng/mL (<0.15) 10/10/20 10:58 TSH 2.130 mlU/mL (0.270-4.200) 10/07/20 13:54 Total Cortisol 17.4 mcg/dL () 10/09/20 02:46 Arterial Blood Glucose 61 mg/dL (65-95) L 10/19/20 04:00 Arterial Blood Ionized Calcium 4.5 mg/dL (4.6-5.3) L 10/19/20 04:00 Urine Eosinophils None seen (None Seen) 10/14/20 Unknown Urine Osmolality 223 Mosm/kg 10/07/20 Unknown Urine Creatinine 144.2 mg/dL (0.1-20.0) H 10/14/20 Unknown Protein/Creatinin Ratio 0.67 10/14/20 Unknown Urine Sodium 10 mmol/L 10/14/20 Unknown Urine Total Protein 97 mg/dL (5-11.8) H 10/14/20 Unknown Salicylates < 0.3 mg/dL (2.8-20.0) L 10/02/20 23:17 Acetaminophen 5.0 ug/mL (10.0-30.0) L 10/02/20 23:17 Plasma/Serum Alcohol < 0.01 % (0-0.07) 10/02/20 23:17 Coronavirus (PCR) Negative (Negative) 10/14/20 08:00 Blood Type O POSITIVE 10/18/20 19:08 Antibody Screen Negative 10/18/20 19:08 Crossmatch See Detail 10/18/20 19:08 Microbiology: Microbiology 10/15/20 Unknown Tracheal Aspirate Sputum Culture - Final Munoz/IV: Voiding Method Indwelling Catheter Active Medications - Current Medications Current Medications: Generic Name Dose Route Start Last Admin Trade Name Freq PRN Reason Stop Dose Admin Acetaminophen 650 mg 10/03/20 02:10 10/06/20 15:28 Acetaminophen 325 Mg Tab PO 650 mg Q4H PRN Administration Pain MILD(1-3)/Fever >100.5/ROMERO Al Hydrox/Mg Hydrox/Simethicone 30 ml 10/03/20 02:10 Alum-Mag Hydroxide-Simethicone [phone]/5ml Oral Liqd 30 Ml PO Q4H PRN Indigestion Lipase/Protease/Amylase 1 each 10/03/20 16:51 Lipase 10,500/Protease 25,000/Amylase 43,750 (Units) Dr Reis FEEDTUBE PRN PRN For Clogged Feeding Tube Dextrose 50 ml 10/16/20 12:42 10/19/20 11:10 Dextrose 50% In Water (25gm) 50 Ml Syringe IV 50 ml Q30MIN PRN Administration Hypoglycemia Protocol Ferrous Sulfate 308 mg 10/16/20 10:00 10/19/20 10:46 Ferrous Sulfate 308 Mg (62mg Elemental Iron) / 7 Ml Elixir FEEDTUBE 308 mg DAILY JOSE Administration Folic Acid 1 mg 10/03/20 10:00 10/19/20 10:46 Folic Acid 1 Mg Tab PO 1 mg QDAY JOSE Administration Furosemide 40 mg 10/18/20 15:00 10/19/20 05:16 Furosemide 40 Mg/4 Ml Inj IV 40 mg DAILY@0600 JOSE Administration Levetiracetam 250 mg/ Dextrose 102.5 mls @ 400 mls/hr 10/10/20 22:00 10/19/20 09:32 IV 400 mls/hr Q12HR JOSE Administration Vasopressin 20 unit/ Sodium 101 mls @ 9.09 mls/hr 10/16/20 13:00 10/18/20 19:11 Chloride IV 0.03 units/min TITR JOSE 9.09 mls/hr Administration Protocol 0.03 UNITS/MIN Phenylephrine HCl 100 mg/ 100 mls @ 3 mls/hr 10/16/20 18:00 10/19/20 03:50 Sodium Chloride IV 160 mcg/min TITR JOSE 9.6 mls/hr Administration Protocol 50 MCG/MIN NORepinephrine/NS 8 MG-250 ML 8 mg in 250 mls @ 3.75 mls/hr 10/16/20 19:00 10/19/20 08:50 Norepinephrine/Ns 8 Mg-250 Ml (Double Conc) IV 14 mcg/min TITRATE JOSE 26.25 mls/hr Titration Protocol 2 MCG/MIN Amiodarone HCl 900 mg/ 500 mls @ 16.667 mls/hr 10/16/20 20:00 10/19/20 05:00 Dextrose IV 0 mg/min DIRECT JOSE 0 mls/hr Infusion Protocol 0.5 MG/MIN Dobutamine HCl/Dextrose 500 mg in 250 mls @ 6.908 mls/hr 10/16/20 19:00 10/19/20 09:32 Dobutrex Drip 500mg/D5w 250ml IV 5 mcg/kg/min DIRECT JOSE 13.815 mls/hr Administration Protocol 2.5 MCG/KG/MIN Epinephrine 8 mg/ Sodium 250 mls @ 0 mls/hr 10/16/20 23:45 10/17/20 11:33 Chloride IV 0 mls/hr TITR JOSE Infusion Cefepime HCl 2 gm in 100 mls @ 200 mls/hr 10/17/20 22:00 10/18/20 21:11 Cefepime/Ns 2 Gm/100 Ml IV 10/22/20 22:29 200 mls/hr Q24H JOSE Administration Protocol Sodium Bicarbonate 150 meq/ 1,150 mls @ 125 mls/hr 10/19/20 12:00 10/19/20 12:54 Dextrose IV 125 mls/hr DIRECT JOSE Administration Magnesium Hydroxide 30 ml 10/03/20 02:10 Magnesium Hydroxide (Mom) Oral Liqd Udc PO Q4H PRN Constipation Metoclopramide HCl 5 mg 10/17/20 09:00 Metoclopramide 10 Mg/2 Ml Inj IV Q6H PRN Nausea And Vomiting Ondansetron HCl 4 mg 10/03/20 02:10 10/07/20 23:19 Ondansetron 4 Mg/2 Ml Inj IV 4 mg Q8H PRN Administration Nausea And Vomiting Pantoprazole Sodium 40 mg 10/04/20 15:00 10/19/20 10:46 Pantoprazole 40 Mg Inj IV 40 mg QDAY JOSE Administration Promethazine HCl 25 mg 10/03/20 02:10 Promethazine 25 Mg Rect Supp MA Q6H PRN N/V IF NPO AND NO IV ACCESS Senna 8.6 mg 10/03/20 02:10 Sennosides 8.6 Mg Tab PO Q12HR PRN Constipation Simple Syrup 15 ml 10/03/20 16:51 10/19/20 02:08 Simple Syrup 15 Ml FEEDTUBE 15 ml PRN PRN Administration Hypoglycemia Simple Syrup 30 ml 10/03/20 16:51 10/16/20 22:02 Simple Syrup 15 Ml FEEDTUBE 30 ml PRN PRN Administration Hypoglycemia Sodium Bicarbonate 325 mg 10/03/20 16:51 Sodium Bicarbonate 325 Mg Tab FEEDTUBE PRN PRN For Clogged Feeding Tube Nutrition/Malnutrition Assess - Dietary Evaluation Nutrition/Malnutrition Findings: Nutrition Notes Start: 10/03/20 08:51 Freq: Status: Active Protocol: Document 10/18/20 09:50 BETSY (Rec: 10/18/20 09:52 BETSY [id number]) Nutrition Notes Initial or Follow up Brief Note Current Diagnosis Diabetes Other Pertinent Diagnosis AMS, hypothermia, pneu, anemia , atherosclerotic cerebrovascular disease Current Diet Nepro 1.8 at 40 ml/hr Subjective/Other Information Pt with vomiting yesterday and today. TF turned off. Nutrition Intervention Follow-Up By: 09/10/21 Additional Comments F/u: TF restart and tolerance <TJ GORMAN - Last Filed: 10/20/20 16:49> History Interval history: I saw and evaluated the patient. Discussed with the nurse practitioner and agree with their findings and plan as documented in this note. Hospitalist Physical - Constitutional Vitals: Temp Pulse Resp BP Pulse Ox 96.6 F L 78 30 H 138/70 98 10/20/20 16:00 10/20/20 16:30 10/20/20 16:30 10/20/20 16:30 10/20/20 16:30 HEART Score - HEART Score Troponin: Troponin T < 0.010 ng/mL (0.00-0.029) 10/02/20 23:17 Results - Labs CBC & Chem 7: 10/20/20 08:43 10/20/20 15:35 Labs: Laboratory Last Values WBC 13.1 K/mm3 (4.5-11.0) H 10/20/20 08:43 RBC 3.42 M/mm3 (3.65-5.03) L 10/20/20 08:43 Hgb 8.3 gm/dl (11.8-15.2) L 10/20/20 08:43 Hct 25.3 % (35.5-45.6) L 10/20/20 08:43 MCV 74 fl (84-94) L 10/20/20 08:43 MCH 24 pg (28-32) L 10/20/20 08:43 MCHC 33 % (32-34) 10/20/20 08:43 RDW 31.4 % (13.2-15.2) H 10/20/20 08:43 Plt Count 35 K/mm3 (140-440) L 10/20/20 08:43 Lymph % (Auto) Visitor Use Assistant 10/10/20 10:58 [place] % (Auto) 8.3 % (0.0-7.3) H 10/15/20 05:50 Eos % (Auto) 0.3 % (0.0-4.3) 10/15/20 05:50 Baso % (Auto) Visitor Use Assistant 10/10/20 10:58 Lymph # (Auto) Visitor Use Assistant 10/10/20 10:58 [place] # (Auto) 1.3 K/mm3 (0.0-0.8) H 10/15/20 05:50 Eos # (Auto) 0.0 K/mm3 (0.0-0.4) 10/15/20 05:50 Baso # (Auto) 0.1 K/mm3 (0.0-0.1) 10/15/20 05:50 Add Manual Diff Complete 10/17/20 04:49 Total Counted 100 10/17/20 04:49 Seg Neutrophils % Visitor Use Assistant 10/17/20 04:49 Seg Neuts % (Manual) 60.0 % (40.0-70.0) 10/17/20 04:49 Band Neutrophils % 13.0 % 10/17/20 04:49 Lymphocytes % (Manual) 3.0 % (13.4-35.0) L 10/17/20 04:49 Monocytes % (Manual) 6.0 % (0.0-7.3) 10/17/20 04:49 Eosinophils % (Manual) 1.0 % (0.0-4.3) 10/13/20 05:24 Basophils % (Manual) 2.0 % (0.0-1.8) H 10/10/20 10:58 Metamyelocytes % 11.0 % 10/17/20 04:49 Myelocytes % 7.0 % 10/17/20 04:49 Nucleated RBC % 3.0 % (0.0-0.9) H 10/17/20 04:49 Seg Neutrophils # 13.2 K/mm3 (1.8-7.7) H 10/15/20 05:50 Seg Neutrophils # Man 10.6 K/mm3 (1.8-7.7) H 10/17/20 04:49 Band Neutrophils # 2.3 K/mm3 10/17/20 04:49 Lymphocytes # (Manual) 0.5 K/mm3 (1.2-5.4) L 10/17/20 04:49 Abs React Lymphs (Man) 0.0 K/mm3 10/17/20 04:49 Monocytes # (Manual) 1.1 K/mm3 (0.0-0.8) H 10/17/20 04:49 Eosinophils # (Manual) 0.0 K/mm3 (0.0-0.4) 10/17/20 04:49 Basophils # (Manual) 0.0 K/mm3 (0.0-0.1) 10/17/20 04:49 Metamyelocytes # 1.9 K/mm3 10/17/20 04:49 Myelocytes # 1.2 K/mm3 10/17/20 04:49 Promyelocytes # 0.0 K/mm3 10/17/20 04:49 Blast Cells # 0.0 K/mm3 10/17/20 04:49 WBC Morphology Not Reportable 10/17/20 04:49 Hypersegmented Neuts Not Reportable 10/17/20 04:49 Hyposegmented Neuts Not Reportable 10/17/20 04:49 Hypogranular Neuts Not Reportable 10/17/20 04:49 Smudge Cells Not Reportable 10/17/20 04:49 Toxic Granulation Not Reportable 10/17/20 04:49 Toxic Vacuolation Not Reportable 10/17/20 04:49 Dohle Bodies Not Reportable 10/17/20 04:49 Pelger-Huet Anomaly Not Reportable 10/17/20 04:49 Andrés Rods Not Reportable 10/17/20 04:49 Platelet Estimate Consistent w auto 10/17/20 04:49 Clumped Platelets Not Reportable 10/17/20 04:49 Plt Clumps, EDTA Not Reportable 10/17/20 04:49 Large Platelets Not Reportable 10/17/20 04:49 Giant Platelets Rare 10/17/20 04:49 Platelet Satelliting Not Reportable 10/17/20 04:49 Plt Morphology Comment Not Reportable 10/17/20 04:49 RBC Morphology Not Reportable 10/17/20 04:49 Dimorphic RBCs Not Reportable 10/17/20 04:49 Polychromasia Not Reportable 10/17/20 04:49 Hypochromasia 2+ 10/17/20 04:49 Poikilocytosis 2+ 10/17/20 04:49 Anisocytosis 3+ 10/17/20 04:49 Microcytosis Not Reportable 10/17/20 04:49 Macrocytosis Not Reportable 10/17/20 04:49 Spherocytes Not Reportable 10/17/20 04:49 Pappenheimer Bodies Not Reportable 10/17/20 04:49 Sickle Cells Not Reportable 10/17/20 04:49 Target Cells Not Reportable 10/17/20 04:49 Tear Drop Cells Not Reportable 10/17/20 04:49 Ovalocytes Not Reportable 10/17/20 04:49 Helmet Cells Not Reportable 10/17/20 04:49 [place] Bodies Not Reportable 10/17/20 04:49 [place] Rings Not Reportable 10/17/20 04:49 Norbert Cells 1+ 10/17/20 04:49 Bite Cells Not Reportable 10/17/20 04:49 Crenated Cell Not Reportable 10/17/20 04:49 Elliptocytes Not Reportable 10/17/20 04:49 Acanthocytes (Spur) Not Reportable 10/17/20 04:49 Rouleaux Not Reportable 10/17/20 04:49 Hemoglobin C Crystals Not Reportable 10/17/20 04:49 Schistocytes Not Reportable 10/17/20 04:49 Malaria parasites Not Reportable 10/17/20 04:49 Dereck Bodies Not Reportable 10/17/20 04:49 Hem Pathologist Commnt No 10/17/20 04:49 PT 30.1 Sec. (12.2-14.9) H 10/20/20 08:43 INR 2.82 (0.87-1.13) H 10/20/20 08:43 APTT 57.6 Sec. (24.2-36.6) H 10/02/20 23:17 Thrombin Time 17.8 Sec. (15.1-19.6) 10/02/20 23:17 ABG pH 7.234 (7.320-7.450) L 10/19/20 04:00 POC ABG pCO2 45.5 mmHg (32.0-48.0) 10/19/20 04:00 POC ABG pO2 53.9 mmHg (83-108) L 10/19/20 04:00 POC ABG HCO3 18.8 10/19/20 04:00 ABG O2 Saturation 87.6 (0-100) 10/19/20 04:00 POC ABG Base Excess -8.2 10/19/20 04:00 ABG Hemoglobin 8.9 (12.0-17.5) L 10/19/20 04:00 ABG Oxyhemoglobin 86.6 (94-98) L 10/19/20 04:00 ABG Methemoglobin 0.3 (0.0-1.5) 10/19/20 04:00 ABG Sodium 118.1 mmol/L (136.0-145.0) L 10/19/20 04:00 ABG Potassium 3.7 mmol/L (3.40-4.50) 10/19/20 04:00 ABG Chloride 94.0 mmol/L (98-107) L 10/19/20 04:00 ABG Glucose 61 mg/dL (65-95) L 10/19/20 04:00 Carboxyhemoglobin 0.8 (0.5-1.5) 10/19/20 04:00 FiO2 % 50.0 10/19/20 04:00 Sodium 121 mmol/L (137-145) L 10/20/20 15:35 Potassium 3.9 mmol/L (3.6-5.0) 10/20/20 08:43 Chloride 90.7 mmol/L (98-107) L 10/20/20 08:43 Carbon Dioxide 20 mmol/L (22-30) L 10/20/20 08:43 Anion Gap 12 mmol/L 10/20/20 08:43 BUN 35 mg/dL (9-20) H 10/20/20 08:43 Creatinine 3.3 mg/dL (0.8-1.3) H 10/20/20 08:43 Estimated GFR 22 ml/min 10/20/20 08:43 BUN/Creatinine Ratio 11 % 10/20/20 08:43 Glucose 57 mg/dL (75-100) L 10/20/20 08:43 POC Glucose 85 mg/dL (70-105) 10/20/20 15:02 Hemoglobin A1c 5.2 % (4-6) 10/03/20 05:57 Osmolality 267 Mosm/kg 10/07/20 13:54 Lactic Acid 1.50 mmol/L (0.7-2.0) 10/03/20 04:43 Calcium 7.7 mg/dL (8.4-10.2) L 10/20/20 08:43 Phosphorus 3.50 mg/dL (2.5-4.5) 10/20/20 08:43 Magnesium 1.30 mg/dL (1.7-2.3) L 10/20/20 08:43 Iron 42 ug/dL (49-181) L 10/03/20 05:57 TIBC 305 mcg/dL (250-450) 10/03/20 05:57 Total Bilirubin 1.60 mg/dL (0.1-1.2) H 10/20/20 08:43 Direct Bilirubin 0.9 mg/dL (0-0.2) H 10/19/20 04:51 Indirect Bilirubin 0.6 mg/dL 10/19/20 04:51 AST 27 units/L (5-40) 10/20/20 08:43 ALT 27 units/L (7-56) 10/20/20 08:43 Alkaline Phosphatase 152 units/L (35-129) H 10/20/20 08:43 Ammonia 22.0 umol/L (25-60) L 10/02/20 23:17 Total Creatine Kinase 88 units/L (55-170) 10/02/20 23:17 CK-MB (CK-2) 7.5 ng/mL (0.0-4.0) H 10/02/20 23:17 CK-MB (CK-2) Rel Index 8.5 (0-4) H 10/02/20 23:17 Troponin T < 0.010 ng/mL (0.00-0.029) 10/02/20 23:17 Total Protein 4.5 g/dL (6.3-8.2) L 10/20/20 08:43 Albumin 1.6 g/dL (3.9-5) L 10/20/20 08:43 Albumin/Globulin Ratio 0.6 % 10/20/20 08:43 Lipase 17 units/L (13-60) 10/16/20 22:58 Procalcitonin 0.10 ng/mL (<0.15) 10/10/20 10:58 TSH 2.130 mlU/mL (0.270-4.200) 10/07/20 13:54 Total Cortisol 17.4 mcg/dL () 10/09/20 02:46 Arterial Blood Glucose 61 mg/dL (65-95) L 10/19/20 04:00 Arterial Blood Ionized Calcium 4.5 mg/dL (4.6-5.3) L 10/19/20 04:00 Urine Eosinophils None seen (None Seen) 10/14/20 Unknown Urine Osmolality 223 Mosm/kg 10/07/20 Unknown Urine Creatinine 144.2 mg/dL (0.1-20.0) H 10/14/20 Unknown Protein/Creatinin Ratio 0.67 10/14/20 Unknown Urine Sodium 10 mmol/L 10/14/20 Unknown Urine Total Protein 97 mg/dL (5-11.8) H 10/14/20 Unknown Salicylates < 0.3 mg/dL (2.8-20.0) L 10/02/20 23:17 Acetaminophen 5.0 ug/mL (10.0-30.0) L 10/02/20 23:17 Plasma/Serum Alcohol < 0.01 % (0-0.07) 10/02/20 23:17 Coronavirus (PCR) Negative (Negative) 10/14/20 08:00 Blood Type O POSITIVE 10/18/20 19:08 Antibody Screen Negative 10/18/20 19:08 Crossmatch See Detail 10/18/20 19:08 Munoz/IV: Voiding Method Indwelling Catheter Active Medications - Current Medications Current Medications: Generic Name Dose Route Start Last Admin Trade Name Freq PRN Reason Stop Dose Admin Acetaminophen 650 mg 10/03/20 02:10 10/06/20 15:28 Acetaminophen 325 Mg Tab PO 650 mg Q4H PRN Administration Pain MILD(1-3)/Fever >100.5/ROMERO Al Hydrox/Mg Hydrox/Simethicone 30 ml 10/03/20 02:10 Alum-Mag Hydroxide-Simethicone [phone]/5ml Oral Liqd 30 Ml PO Q4H PRN Indigestion Lipase/Protease/Amylase 1 each 10/03/20 16:51 Lipase 10,500/Protease 25,000/Amylase 43,750 (Units) Dr Reis FEEDTUBE PRN PRN For Clogged Feeding Tube Dextrose 50 ml 10/16/20 12:42 10/20/20 04:04 Dextrose 50% In Water (25gm) 50 Ml Syringe IV 50 ml Q30MIN PRN Administration Hypoglycemia Protocol Ferrous Sulfate 308 mg 10/16/20 10:00 10/20/20 09:19 Ferrous Sulfate 308 Mg (62mg Elemental Iron) / 7 Ml Elixir FEEDTUBE 308 mg DAILY JOSE Administration Folic Acid 1 mg 10/03/20 10:00 10/20/20 09:19 Folic Acid 1 Mg Tab PO 1 mg QDAY JOSE Administration Furosemide 40 mg 10/18/20 15:00 10/20/20 05:38 Furosemide 40 Mg/4 Ml Inj IV 40 mg DAILY@0600 JOSE Administration Hydrocortisone Sodium Succinate 100 mg 10/19/20 18:00 10/20/20 09:19 Hydrocortisone Sod Succ 100 Mg/2 Ml Vial IV 100 mg Q8H JOSE Administration Levetiracetam 250 mg/ Dextrose 102.5 mls @ 400 mls/hr 10/10/20 22:00 10/20/20 09:19 IV 400 mls/hr Q12HR JOSE Administration Vasopressin 20 unit/ Sodium 101 mls @ 9.09 mls/hr 10/16/20 13:00 10/20/20 11:29 Chloride IV 0.03 units/min TITR JOSE 9.09 mls/hr Administration Protocol 0.03 UNITS/MIN Phenylephrine HCl 100 mg/ 100 mls @ 3 mls/hr 10/16/20 18:00 10/20/20 11:50 Sodium Chloride IV 0 mcg/min TITR JOSE 0 mls/hr Titration Protocol 50 MCG/MIN NORepinephrine/NS 8 MG-250 ML 8 mg in 250 mls @ 3.75 mls/hr 10/16/20 19:00 10/20/20 08:49 Norepinephrine/Ns 8 Mg-250 Ml (Double Conc) IV 10 mcg/min TITRATE JOSE 18.75 mls/hr Administration Protocol 2 MCG/MIN Dobutamine HCl/Dextrose 500 mg in 250 mls @ 6.908 mls/hr 10/16/20 19:00 10/20/20 04:00 Dobutrex Drip 500mg/D5w 250ml IV 5 mcg/kg/min DIRECT JOSE 13.815 mls/hr Administration Protocol 2.5 MCG/KG/MIN Epinephrine 8 mg/ Sodium 250 mls @ 0 mls/hr 10/16/20 23:45 10/17/20 11:33 Chloride IV 0 mls/hr TITR JOSE Infusion Cefepime HCl 2 gm in 100 mls @ 200 mls/hr 10/17/20 22:00 10/19/20 23:13 Cefepime/Ns 2 Gm/100 Ml IV 10/22/20 22:29 200 mls/hr Q24H JOSE Administration Protocol Sodium Chloride 500 mls @ 25 mls/hr 10/20/20 11:45 Nacl 3% IV 10/21/20 07:44 DIRECT ONE Magnesium Hydroxide 30 ml 10/03/20 02:10 Magnesium Hydroxide (Mom) Oral Liqd Udc PO Q4H PRN Constipation Metoclopramide HCl 5 mg 10/17/20 09:00 Metoclopramide 10 Mg/2 Ml Inj IV Q6H PRN Nausea And Vomiting Ondansetron HCl 4 mg 10/03/20 02:10 10/07/20 23:19 Ondansetron 4 Mg/2 Ml Inj IV 4 mg Q8H PRN Administration Nausea And Vomiting Pantoprazole Sodium 40 mg 10/04/20 15:00 10/20/20 09:19 Pantoprazole 40 Mg Inj IV 40 mg QDAY JOSE Administration Promethazine HCl 25 mg 10/03/20 02:10 Promethazine 25 Mg Rect Supp MA Q6H PRN N/V IF NPO AND NO IV ACCESS Senna 8.6 mg 10/03/20 02:10 Sennosides 8.6 Mg Tab PO Q12HR PRN Constipation Simple Syrup 15 ml 10/03/20 16:51 10/19/20 02:08 Simple Syrup 15 Ml FEEDTUBE 15 ml PRN PRN Administration Hypoglycemia Simple Syrup 30 ml 10/03/20 16:51 10/16/20 22:02 Simple Syrup 15 Ml FEEDTUBE 30 ml PRN PRN Administration Hypoglycemia Sodium Bicarbonate 325 mg 10/03/20 16:51 Sodium Bicarbonate 325 Mg Tab FEEDTUBE PRN PRN For Clogged Feeding Tube Nutrition/Malnutrition Assess - Dietary Evaluation Nutrition/Malnutrition Findings: Nutrition Notes Start: 10/03/20 08:51 Freq: Status: Active Protocol: Document 10/20/20 11:01 (Rec: 10/20/20 11:05 [id number]) Nutrition Notes Initial or Follow up Reassessment Current Diagnosis Diabetes Other Pertinent Diagnosis AMS, hypothermia, pneu, anemia , atherosclerotic cerebrovascular disease Current Diet Nepro 1.8 at 40 ml/hr Labs/Tests Na 119 BUN 35 Cr 3.3 Mg 1.3 Pertinent Medications Sodium Bicarb at 125 ml/hr Lasix Vasopressin Height 5 ft 10 in Weight 92.1 kg [place] Body Weight (kg) 75.45 BMI 29.1 Weight Status Overweight Subjective/Other Information TF turned back on this AM at 20 ml/hr. Burn Absent Trauma Absent Difficulty In Swallowing Current % PO Negligible Minimum of two criteria No Fluid Accumulation Moderate to Severe (severe) #1 Nutrition Diagnosis Swallowing difficulty Diagnosis Progress(for reassessment Continues documentation) Is patient on ventilator? No Is Patient Ambulatory and/or Out of Bed No REE-([facility]-confined to bed) 1993.892 Kcal/Kg value to use for calculation 20 Approximate Energy Requirements Using 1842 kcal/Kg Calculation Used for Recommendations Kcal/kg Additional Notes Protein: (1-1.2g/kg) 84-101g Fluid: 1 ml/kcal Nutrition Intervention Nutrition Support: Nepro at 40ml/hour. For hyponatremia flush 50 ml q4h, once resolved resume flush at 170 ml q4h Kcal 1,728 Protein (gm) 78 Fluid (mL) 698 Goal #1 Meet at least 75% of protein and energy needs via TF Anticipated Discharge Needs: continue TF regimen Follow-Up By: 10/23/20 Additional Comments F/u: TF at goal and tolerance
[2020-10-19] MEDS: VASOPRESSIN 20 UNIT in SODIUM CHLORIDE 0.9% 100 ML IV SCH (17:28)
--- NOTE | 2020-10-19 17:37 | Progress Note ---
Assessment and Plan Acute hypoxemic respiratory failure Bilateral pneumonia Bilateral pleural effusions Bilateral pulmonary edema Acute kidney injury Acute encephalopathy Severe protein calorie malnutrition Oropharyngeal dysphagia Anemia that is microcytic Oropharyngeal dysphagia Advance ETT by 2cm, follow up CXR - no anticoagulation re: thrombocytopenia / anemia - wean vasopressors for MAP > 65 mmHg - VAP bundle addressed ,aspiration precautions (HOB > 40 degrees) - sedation target RASS -2 to -3 - Daily SAT and SBTs as tolerated. Start weaning benzodiazepine -Start stress dose hydrocortisone 100mg q8hour for 5 days, then stop - continue glycemic control with SSI for target BG 140-180 mg while critically ill; avoid hypoglycemia - continue lung protective strategies - bronchodilators with pulmonary hygiene per RT - complete ABs per ID recommendations - avoid nephrotoxins, renally dose all medications Start Furosemide infusion, he is not responding to intermittent Furosmide dosing - prn analgesia per pain score - Maintenance of sleep-wake cycle, avoid delirium - supportive transfusions for serum Hb < 7.0g/dl - G.I. & VTE prophylaxis - PT/OT/ROM exercises - continue mobility protocols for pressure ulcer prophylaxis - Monitor hemodynamics closely - continue other care per attending / other consultants - discharge planning ongoing concurrently COVID SPECIFIC INTERVENTIONS - COVID-19 test negative CONDITION: CRITICAL PROGNOSIS: GUARDED CODE STATUS: FULL CODE The high probability of a clinically significant, sudden or life-threatening deterioration of the [respiratory, cardiovascular, & neurologic] system(s) required my full and direct attention, intervention and personal management. The aggregate critical care time was [33] minutes without overlap. Time includes spent on; [x] Data Review and interpretation [x] Patient assessment and monitoring of vital signs [x] Documentation [x] Medication orders and management Subjective Date of service: 10/19/20 Principal diagnosis: Ac hypoxemic resp failure; Pneumonia; BETSY; Ac. encephalopathy Interval history: Patient is seen today for: Acute hypoxemic respiratory failure; Pneumonia; Pleural effusions; BETSY; Acute encephalopathy; Severe protein calorie malnutrition Seen and examined at bedside; 24hour events reviewed; nursing and respiratory care staff consulted; no adverse overnight events reported to me; resting in bed; remains on MVS; On 3 vasopressors, and Dobutamine fixed dose of 2.5mcg. Remains edematous, on Midazolam at 10mg, Fentanyl at 4 and Seroquel at 400mg with intermittent agitation MVS: PEEP +8/FIO2 50%. Remains positive balance Objective Vital Signs - 12hr 09/09/21 09/09/21 09/09/21 07:00 08:00 : Temperature 99.2 F Pulse Rate 78 81 Pulse Rate [ 68 From Monitor] Respiratory 30 H Rate Blood Pressure 115/53 O2 Sat by Pulse 97 94 Oximetry 10/19/20 10/19/20 10/19/20 11:41 12:00 12:32 Temperature 98.0 F Pulse Rate 89 90 Pulse Rate [ 68 From Monitor] Respiratory 30 H Rate Blood Pressure 109/58 O2 Sat by Pulse 97 95 Oximetry 10/19/20 10/19/20 16:18 16:48 Temperature 96.7 F L Pulse Rate 77 Pulse Rate [ From Monitor] Respiratory Rate Blood Pressure 94/53 O2 Sat by Pulse 97 Oximetry Constitutional: appears uncomfortable, other (elderly and chronically ill looking male with mildly increased respiratory effort at rest on MVS) Eyes: non-icteric ENT: oropharynx dry, other (ETT 23 cm TAD) Neck: supple, no lymphadenopathy, no JVD Effort: mildly labored Ascultation: Bilateral: diminished breath sounds, rhonchi Percussion: Bilateral: not dull Cardiovascular: irregular rhythm (irregularly irregular), other (S1,S2) Gastrointestinal: normoactive bowel sounds, other (scrotal edema) Integumentary: normal Extremities: no cyanosis, pulses normal, no ischemia or petechiae, edema (3+) Neurologic: pupils equal and round, unable to assess Psychiatric: other (unable to assess re: AMS) CBC and BMP: 10/24/20 05:27 10/24/20 05:27 ABG, PT/INR, D-dimer: ABG ABG pH 7.234 (7.320-7.450) L 10/19/20 04:00 POC ABG pCO2 45.5 mmHg (32.0-48.0) 10/19/20 04:00 POC ABG pO2 53.9 mmHg (83-108) L 10/19/20 04:00 POC ABG HCO3 18.8 10/19/20 04:00 ABG O2 Saturation 87.6 (0-100) 10/19/20 04:00 PT/INR, D-dimer PT 23.5 Sec. (12.2-14.9) H 10/18/20 04:06 INR 2.05 (0.87-1.13) H 10/18/20 04:06 Abnormal lab findings: Abnormal Labs 10/02/20 10/02/20 10/02/20 23:17 23:17 23:17 WBC RBC 3.31 L Hgb 6.7 L Hct 21.8 L MCV 66 L MCH 20 L MCHC 31 L RDW 31.7 H Plt Count Morrison % (Auto) Morrison # (Auto) Seg Neutrophils % Seg Neuts % (Manual) 79.0 H Lymphocytes % (Manual) 11.0 L Monocytes % (Manual) 10.0 H Basophils % (Manual) Nucleated RBC % Seg Neutrophils # Seg Neutrophils # Man Lymphocytes # (Manual) 0.9 L Monocytes # (Manual) Basophils # (Manual) PT 20.8 H INR 1.74 H APTT 57.6 H ABG pH POC ABG pCO2 POC ABG pO2 ABG Hemoglobin ABG Oxyhemoglobin ABG Sodium ABG Potassium ABG Chloride ABG Glucose Sodium Potassium Chloride Carbon Dioxide BUN Creatinine Glucose 42 L POC Glucose Lactic Acid Calcium Iron Total Bilirubin Direct Bilirubin AST ALT Alkaline Phosphatase Ammonia CK-MB (CK-2) 7.5 H CK-MB (CK-2) Rel Index 8.5 H Total Protein Albumin 2.9 L Arterial Blood Glucose Arterial Blood Ionized Calcium Urine Creatinine Urine Total Protein Salicylates Acetaminophen Crossmatch 10/02/20 10/02/20 10/02/20 23:17 23:17 23:17 WBC RBC Hgb Hct MCV MCH MCHC RDW Plt Count Morrison % (Auto) Morrison # (Auto) Seg Neutrophils % Seg Neuts % (Manual) Lymphocytes % (Manual) Monocytes % (Manual) Basophils % (Manual) Nucleated RBC % Seg Neutrophils # Seg Neutrophils # Man Lymphocytes # (Manual) Monocytes # (Manual) Basophils # (Manual) PT INR APTT ABG pH POC ABG pCO2 POC ABG pO2 ABG Hemoglobin ABG Oxyhemoglobin ABG Sodium ABG Potassium ABG Chloride ABG Glucose Sodium Potassium Chloride Carbon Dioxide BUN Creatinine Glucose POC Glucose Lactic Acid 2.20 H* Calcium Iron Total Bilirubin Direct Bilirubin AST ALT Alkaline Phosphatase Ammonia 22.0 L CK-MB (CK-2) CK-MB (CK-2) Rel Index Total Protein Albumin Arterial Blood Glucose Arterial Blood Ionized Calcium Urine Creatinine Urine Total Protein Salicylates < 0.3 L Acetaminophen Crossmatch 10/02/20 10/03/20 10/03/20 23:17 05:57 05:57 WBC RBC 2.66 L Hgb 5.3 L* Hct 17.8 L* MCV 67 L MCH 20 L MCHC 30 L RDW 32.1 H Plt Count Morrison % (Auto) Morrison # (Auto) Seg Neutrophils % Seg Neuts % (Manual) Lymphocytes % (Manual) 2.0 L Monocytes % (Manual) Basophils % (Manual) Nucleated RBC % 1.0 H Seg Neutrophils # Seg Neutrophils # Man 8.6 H Lymphocytes # (Manual) 0.2 L Monocytes # (Manual) Basophils # (Manual) PT INR APTT ABG pH POC ABG pCO2 POC ABG pO2 ABG Hemoglobin ABG Oxyhemoglobin ABG Sodium ABG Potassium ABG Chloride ABG Glucose Sodium Potassium Chloride Carbon Dioxide BUN Creatinine Glucose POC Glucose Lactic Acid Calcium Iron Total Bilirubin Direct Bilirubin AST ALT Alkaline Phosphatase Ammonia CK-MB (CK-2) CK-MB (CK-2) Rel Index Total Protein Albumin Arterial Blood Glucose Arterial Blood Ionized Calcium Urine Creatinine Urine Total Protein Salicylates Acetaminophen 5.0 L Crossmatch See Detail 10/03/20 10/03/20 10/03/20 05:57 05:57 06:00 WBC RBC Hgb Hct MCV MCH MCHC RDW Plt Count Morrison % (Auto) Morrison # (Auto) Seg Neutrophils % Seg Neuts % (Manual) Lymphocytes % (Manual) Monocytes % (Manual) Basophils % (Manual) Nucleated RBC % Seg Neutrophils # Seg Neutrophils # Man Lymphocytes # (Manual) Monocytes # (Manual) Basophils # (Manual) PT INR APTT ABG pH POC ABG pCO2 POC ABG pO2 ABG Hemoglobin ABG Oxyhemoglobin ABG Sodium ABG Potassium ABG Chloride ABG Glucose Sodium Potassium Chloride Carbon Dioxide BUN Creatinine Glucose 52 L POC Glucose 31 L Lactic Acid Calcium Iron 42 L Total Bilirubin Direct Bilirubin AST ALT Alkaline Phosphatase Ammonia CK-MB (CK-2) CK-MB (CK-2) Rel Index Total Protein 5.8 L Albumin 3.1 L Arterial Blood Glucose Arterial Blood Ionized Calcium Urine Creatinine Urine Total Protein Salicylates Acetaminophen Crossmatch 10/03/20 10/03/20 10/03/20 07:34 09:43 10:57 WBC RBC Hgb Hct MCV MCH MCHC RDW Plt Count Morrison % (Auto) Morrison # (Auto) Seg Neutrophils % Seg Neuts % (Manual) Lymphocytes % (Manual) Monocytes % (Manual) Basophils % (Manual) Nucleated RBC % Seg Neutrophils # Seg Neutrophils # Man Lymphocytes # (Manual) Monocytes # (Manual) Basophils # (Manual) PT INR APTT ABG pH POC ABG pCO2 POC ABG pO2 ABG Hemoglobin ABG Oxyhemoglobin ABG Sodium ABG Potassium ABG Chloride ABG Glucose Sodium Potassium Chloride Carbon Dioxide BUN Creatinine Glucose POC Glucose 59 L 41 L 31 L Lactic Acid Calcium Iron Total Bilirubin Direct Bilirubin AST ALT Alkaline Phosphatase Ammonia CK-MB (CK-2) CK-MB (CK-2) Rel Index Total Protein Albumin Arterial Blood Glucose Arterial Blood Ionized Calcium Urine Creatinine Urine Total Protein Salicylates Acetaminophen Crossmatch 10/03/20 10/03/20 10/03/20 11:21 12:00 12:14 WBC RBC Hgb Hct MCV MCH MCHC RDW Plt Count Morrison % (Auto) Morrison # (Auto) Seg Neutrophils % Seg Neuts % (Manual) Lymphocytes % (Manual) Monocytes % (Manual) Basophils % (Manual) Nucleated RBC % Seg Neutrophils # Seg Neutrophils # Man Lymphocytes # (Manual) Monocytes # (Manual) Basophils # (Manual) PT INR APTT ABG pH POC ABG pCO2 POC ABG pO2 ABG Hemoglobin ABG Oxyhemoglobin ABG Sodium ABG Potassium ABG Chloride ABG Glucose Sodium Potassium Chloride Carbon Dioxide BUN Creatinine Glucose POC Glucose 62 L 26 L 140 H Lactic Acid Calcium Iron Total Bilirubin Direct Bilirubin AST ALT Alkaline Phosphatase Ammonia CK-MB (CK-2) CK-MB (CK-2) Rel Index Total Protein Albumin Arterial Blood Glucose Arterial Blood Ionized Calcium Urine Creatinine Urine Total Protein Salicylates Acetaminophen Crossmatch 10/03/20 10/03/20 10/03/20 13:33 14:19 14:59 WBC RBC Hgb Hct MCV MCH MCHC RDW Plt Count Morrison % (Auto) Morrison # (Auto) Seg Neutrophils % Seg Neuts % (Manual) Lymphocytes % (Manual) Monocytes % (Manual) Basophils % (Manual) Nucleated RBC % Seg Neutrophils # Seg Neutrophils # Man Lymphocytes # (Manual) Monocytes # (Manual) Basophils # (Manual) PT INR APTT ABG pH POC ABG pCO2 POC ABG pO2 ABG Hemoglobin ABG Oxyhemoglobin ABG Sodium ABG Potassium ABG Chloride ABG Glucose Sodium Potassium Chloride Carbon Dioxide BUN Creatinine Glucose POC Glucose 24 L 59 L 40 L Lactic Acid Calcium Iron Total Bilirubin Direct Bilirubin AST ALT Alkaline Phosphatase Ammonia CK-MB (CK-2) CK-MB (CK-2) Rel Index Total Protein Albumin Arterial Blood Glucose Arterial Blood Ionized Calcium Urine Creatinine Urine Total Protein Salicylates Acetaminophen Crossmatch 10/03/20 10/03/20 10/03/20 15:26 15:57 16:35 WBC RBC Hgb Hct MCV MCH MCHC RDW Plt Count Morrison % (Auto) Morrison # (Auto) Seg Neutrophils % Seg Neuts % (Manual) Lymphocytes % (Manual) Monocytes % (Manual) Basophils % (Manual) Nucleated RBC % Seg Neutrophils # Seg Neutrophils # Man Lymphocytes # (Manual) Monocytes # (Manual) Basophils # (Manual) PT INR APTT ABG pH POC ABG pCO2 POC ABG pO2 ABG Hemoglobin ABG Oxyhemoglobin ABG Sodium ABG Potassium ABG Chloride ABG Glucose Sodium Potassium Chloride Carbon Dioxide BUN Creatinine Glucose POC Glucose 54 L 45 L 42 L Lactic Acid Calcium Iron Total Bilirubin Direct Bilirubin AST ALT Alkaline Phosphatase Ammonia CK-MB (CK-2) CK-MB (CK-2) Rel Index Total Protein Albumin Arterial Blood Glucose Arterial Blood Ionized Calcium Urine Creatinine Urine Total Protein Salicylates Acetaminophen Crossmatch 10/03/20 10/03/20 10/03/20 17:16 18:37 19:56 WBC RBC Hgb Hct MCV MCH MCHC RDW Plt Count Morrison % (Auto) Morrison # (Auto) Seg Neutrophils % Seg Neuts % (Manual) Lymphocytes % (Manual) Monocytes % (Manual) Basophils % (Manual) Nucleated RBC % Seg Neutrophils # Seg Neutrophils # Man Lymphocytes # (Manual) Monocytes # (Manual) Basophils # (Manual) PT INR APTT ABG pH POC ABG pCO2 POC ABG pO2 ABG Hemoglobin ABG Oxyhemoglobin ABG Sodium ABG Potassium ABG Chloride ABG Glucose Sodium Potassium Chloride Carbon Dioxide BUN Creatinine Glucose POC Glucose 41 L 46 L 57 L Lactic Acid Calcium Iron Total Bilirubin Direct Bilirubin AST ALT Alkaline Phosphatase Ammonia CK-MB (CK-2) CK-MB (CK-2) Rel Index Total Protein Albumin Arterial Blood Glucose Arterial Blood Ionized Calcium Urine Creatinine Urine Total Protein Salicylates Acetaminophen Crossmatch 10/03/20 10/04/20 10/04/20 21:32 01:04 01:11 WBC RBC Hgb 9.6 L D Hct 28.3 L D MCV MCH MCHC RDW Plt Count Morrison % (Auto) Morrison # (Auto) Seg Neutrophils % Seg Neuts % (Manual) Lymphocytes % (Manual) Monocytes % (Manual) Basophils % (Manual) Nucleated RBC % Seg Neutrophils # Seg Neutrophils # Man Lymphocytes # (Manual) Monocytes # (Manual) Basophils # (Manual) PT INR APTT ABG pH POC ABG pCO2 POC ABG pO2 ABG Hemoglobin ABG Oxyhemoglobin ABG Sodium ABG Potassium ABG Chloride ABG Glucose Sodium Potassium Chloride Carbon Dioxide BUN Creatinine Glucose POC Glucose 65 L 51 L Lactic Acid Calcium Iron Total Bilirubin Direct Bilirubin AST ALT Alkaline Phosphatase Ammonia CK-MB (CK-2) CK-MB (CK-2) Rel Index Total Protein Albumin Arterial Blood Glucose Arterial Blood Ionized Calcium Urine Creatinine Urine Total Protein Salicylates Acetaminophen Crossmatch 10/04/20 10/04/20 10/04/20 05:59 05:59 15:10 WBC 13.4 H RBC Hgb 9.9 L 10.1 L Hct 32.0 L 31.8 L MCV 76 L MCH 24 L MCHC 31 L RDW 31.3 H Plt Count Morrison % (Auto) Morrison # (Auto) Seg Neutrophils % Seg Neuts % (Manual) 86.0 H Lymphocytes % (Manual) 6.0 L Monocytes % (Manual) 8.0 H Basophils % (Manual) Nucleated RBC % 2.0 H Seg Neutrophils # Seg Neutrophils # Man 11.5 H Lymphocytes # (Manual) 0.8 L Monocytes # (Manual) 1.1 H Basophils # (Manual) PT INR APTT ABG pH POC ABG pCO2 POC ABG pO2 ABG Hemoglobin ABG Oxyhemoglobin ABG Sodium ABG Potassium ABG Chloride ABG Glucose Sodium 136 L Potassium 3.5 L Chloride Carbon Dioxide 19 L D BUN Creatinine Glucose POC Glucose Lactic Acid Calcium Iron Total Bilirubin Direct Bilirubin AST ALT Alkaline Phosphatase Ammonia CK-MB (CK-2) CK-MB (CK-2) Rel Index Total Protein Albumin 2.6 L Arterial Blood Glucose Arterial Blood Ionized Calcium Urine Creatinine Urine Total Protein Salicylates Acetaminophen Crossmatch 10/04/20 10/04/20 10/05/20 16:28 22:33 04:43 WBC RBC Hgb 10.5 L Hct 32.5 L MCV MCH MCHC RDW Plt Count Morrison % (Auto) Morrison # (Auto) Seg Neutrophils % Seg Neuts % (Manual) Lymphocytes % (Manual) Monocytes % (Manual) Basophils % (Manual) Nucleated RBC % Seg Neutrophils # Seg Neutrophils # Man Lymphocytes # (Manual) Monocytes # (Manual) Basophils # (Manual) PT INR APTT ABG pH POC ABG pCO2 POC ABG pO2 ABG Hemoglobin ABG Oxyhemoglobin ABG Sodium ABG Potassium ABG Chloride ABG Glucose Sodium Potassium Chloride Carbon Dioxide BUN Creatinine Glucose POC Glucose 66 L 113 H Lactic Acid Calcium Iron Total Bilirubin Direct Bilirubin AST ALT Alkaline Phosphatase Ammonia CK-MB (CK-2) CK-MB (CK-2) Rel Index Total Protein Albumin Arterial Blood Glucose Arterial Blood Ionized Calcium Urine Creatinine Urine Total Protein Salicylates Acetaminophen Crossmatch 10/05/20 10/05/20 10/05/20 05:00 09:42 11:57 WBC RBC Hgb 9.8 L Hct 30.5 L MCV 74 L MCH 24 L MCHC RDW 31.6 H Plt Count Morrison % (Auto) Morrison # (Auto) Seg Neutrophils % Seg Neuts % (Manual) Lymphocytes % (Manual) Monocytes % (Manual) Basophils % (Manual) Nucleated RBC % Seg Neutrophils # Seg Neutrophils # Man Lymphocytes # (Manual) Monocytes # (Manual) Basophils # (Manual) PT INR APTT ABG pH POC ABG pCO2 POC ABG pO2 ABG Hemoglobin ABG Oxyhemoglobin ABG Sodium ABG Potassium ABG Chloride ABG Glucose Sodium 132 L Potassium 3.5 L Chloride Carbon Dioxide 19 L BUN Creatinine 0.7 L Glucose POC Glucose 129 H Lactic Acid Calcium Iron Total Bilirubin Direct Bilirubin AST ALT Alkaline Phosphatase Ammonia CK-MB (CK-2) CK-MB (CK-2) Rel Index Total Protein Albumin Arterial Blood Glucose Arterial Blood Ionized Calcium Urine Creatinine Urine Total Protein Salicylates Acetaminophen Crossmatch 10/05/20 10/05/20 10/06/20 16:47 21:51 05:07 WBC RBC Hgb 9.4 L Hct 30.1 L MCV 76 L MCH 24 L MCHC 31 L RDW 31.1 H Plt Count Morrison % (Auto) Morrison # (Auto) Seg Neutrophils % Seg Neuts % (Manual) Lymphocytes % (Manual) Monocytes % (Manual) Basophils % (Manual) Nucleated RBC % Seg Neutrophils # Seg Neutrophils # Man Lymphocytes # (Manual) Monocytes # (Manual) Basophils # (Manual) PT INR APTT ABG pH POC ABG pCO2 POC ABG pO2 ABG Hemoglobin ABG Oxyhemoglobin ABG Sodium ABG Potassium ABG Chloride ABG Glucose Sodium Potassium Chloride Carbon Dioxide BUN Creatinine Glucose POC Glucose 132 H 115 H Lactic Acid Calcium Iron Total Bilirubin Direct Bilirubin AST ALT Alkaline Phosphatase Ammonia CK-MB (CK-2) CK-MB (CK-2) Rel Index Total Protein Albumin Arterial Blood Glucose Arterial Blood Ionized Calcium Urine Creatinine Urine Total Protein Salicylates Acetaminophen Crossmatch 10/06/20 10/06/20 10/06/20 05:07 15:37 21:01 WBC RBC Hgb Hct MCV MCH MCHC RDW Plt Count Morrison % (Auto) Morrison # (Auto) Seg Neutrophils % Seg Neuts % (Manual) Lymphocytes % (Manual) Monocytes % (Manual) Basophils % (Manual) Nucleated RBC % Seg Neutrophils # Seg Neutrophils # Man Lymphocytes # (Manual) Monocytes # (Manual) Basophils # (Manual) PT INR APTT ABG pH POC ABG pCO2 POC ABG pO2 ABG Hemoglobin ABG Oxyhemoglobin ABG Sodium ABG Potassium ABG Chloride ABG Glucose Sodium 133 L Potassium 3.5 L Chloride Carbon Dioxide 21 L BUN Creatinine 0.6 L Glucose 105 H POC Glucose 136 H 108 H Lactic Acid Calcium Iron Total Bilirubin Direct Bilirubin AST ALT Alkaline Phosphatase Ammonia CK-MB (CK-2) CK-MB (CK-2) Rel Index Total Protein Albumin Arterial Blood Glucose Arterial Blood Ionized Calcium Urine Creatinine Urine Total Protein Salicylates Acetaminophen Crossmatch 10/07/20 10/07/20 10/07/20 04:52 04:52 06:07 WBC RBC Hgb 9.6 L Hct 29.4 L MCV 73 L MCH 24 L MCHC RDW 32.2 H Plt Count Morrison % (Auto) Morrison # (Auto) Seg Neutrophils % Seg Neuts % (Manual) Lymphocytes % (Manual) Monocytes % (Manual) Basophils % (Manual) Nucleated RBC % Seg Neutrophils # Seg Neutrophils # Man Lymphocytes # (Manual) Monocytes # (Manual) Basophils # (Manual) PT INR APTT ABG pH POC ABG pCO2 POC ABG pO2 ABG Hemoglobin ABG Oxyhemoglobin ABG Sodium ABG Potassium ABG Chloride ABG Glucose Sodium 128 L Potassium Chloride Carbon Dioxide 20 L BUN Creatinine 0.7 L Glucose POC Glucose 110 H Lactic Acid Calcium Iron Total Bilirubin Direct Bilirubin AST ALT Alkaline Phosphatase Ammonia CK-MB (CK-2) CK-MB (CK-2) Rel Index Total Protein Albumin Arterial Blood Glucose Arterial Blood Ionized Calcium Urine Creatinine Urine Total Protein Salicylates Acetaminophen Crossmatch 10/07/20 10/07/20 10/07/20 17:09 18:53 20:35 WBC RBC Hgb Hct MCV MCH MCHC RDW Plt Count Morrison % (Auto) Morrison # (Auto) Seg Neutrophils % Seg Neuts % (Manual) Lymphocytes % (Manual) Monocytes % (Manual) Basophils % (Manual) Nucleated RBC % Seg Neutrophils # Seg Neutrophils # Man Lymphocytes # (Manual) Monocytes # (Manual) Basophils # (Manual) PT INR APTT ABG pH POC ABG pCO2 POC ABG pO2 ABG Hemoglobin ABG Oxyhemoglobin ABG Sodium ABG Potassium ABG Chloride ABG Glucose Sodium Potassium Chloride Carbon Dioxide BUN Creatinine Glucose POC Glucose 67 L 66 L 62 L Lactic Acid Calcium Iron Total Bilirubin Direct Bilirubin AST ALT Alkaline Phosphatase Ammonia CK-MB (CK-2) CK-MB (CK-2) Rel Index Total Protein Albumin Arterial Blood Glucose Arterial Blood Ionized Calcium Urine Creatinine Urine Total Protein Salicylates Acetaminophen Crossmatch 10/07/20 10/08/20 10/08/20 21:55 05:00 05:00 WBC RBC Hgb 9.6 L Hct 29.4 L MCV 73 L MCH 24 L MCHC RDW 32.4 H Plt Count Morrison % (Auto) Morrison # (Auto) Seg Neutrophils % 80.6 H Seg Neuts % (Manual) 88.0 H Lymphocytes % (Manual) 9.0 L Monocytes % (Manual) Basophils % (Manual) Nucleated RBC % 5.0 H Seg Neutrophils # Seg Neutrophils # Man Lymphocytes # (Manual) 0.5 L Monocytes # (Manual) Basophils # (Manual) PT INR APTT ABG pH POC ABG pCO2 POC ABG pO2 ABG Hemoglobin ABG Oxyhemoglobin ABG Sodium ABG Potassium ABG Chloride ABG Glucose Sodium 126 L Potassium Chloride 96.3 L Carbon Dioxide BUN Creatinine 0.7 L Glucose POC Glucose 132 H Lactic Acid Calcium Iron Total Bilirubin Direct Bilirubin AST ALT Alkaline Phosphatase Ammonia CK-MB (CK-2) CK-MB (CK-2) Rel Index Total Protein Albumin Arterial Blood Glucose Arterial Blood Ionized Calcium Urine Creatinine Urine Total Protein Salicylates Acetaminophen Crossmatch 10/08/20 10/09/20 10/09/20 22:26 01:36 02:22 WBC RBC Hgb Hct MCV MCH MCHC RDW Plt Count Morrison % (Auto) Morrison # (Auto) Seg Neutrophils % Seg Neuts % (Manual) Lymphocytes % (Manual) Monocytes % (Manual) Basophils % (Manual) Nucleated RBC % Seg Neutrophils # Seg Neutrophils # Man Lymphocytes # (Manual) Monocytes # (Manual) Basophils # (Manual) PT INR APTT ABG pH POC ABG pCO2 POC ABG pO2 ABG Hemoglobin ABG Oxyhemoglobin ABG Sodium ABG Potassium ABG Chloride ABG Glucose Sodium Potassium Chloride Carbon Dioxide BUN Creatinine Glucose POC Glucose 63 L 62 L 151 H Lactic Acid Calcium Iron Total Bilirubin Direct Bilirubin AST ALT Alkaline Phosphatase Ammonia CK-MB (CK-2) CK-MB (CK-2) Rel Index Total Protein Albumin Arterial Blood Glucose Arterial Blood Ionized Calcium Urine Creatinine Urine Total Protein Salicylates Acetaminophen Crossmatch 10/09/20 10/09/20 10/09/20 05:07 05:42 06:32 WBC RBC Hgb 10.3 L Hct 33.8 L MCV 77 L MCH 24 L MCHC 31 L RDW 33.6 H Plt Count 137 L Morrison % (Auto) Morrison # (Auto) Seg Neutrophils % Seg Neuts % (Manual) 89.0 H Lymphocytes % (Manual) 5.0 L Monocytes % (Manual) Basophils % (Manual) Nucleated RBC % 4.0 H Seg Neutrophils # Seg Neutrophils # Man 9.4 H Lymphocytes # (Manual) 0.5 L Monocytes # (Manual) Basophils # (Manual) PT INR APTT ABG pH POC ABG pCO2 POC ABG pO2 ABG Hemoglobin ABG Oxyhemoglobin ABG Sodium ABG Potassium ABG Chloride ABG Glucose Sodium 126 L Potassium Chloride 97.8 L Carbon Dioxide 20 L BUN Creatinine Glucose 58 L POC Glucose 48 L Lactic Acid Calcium Iron Total Bilirubin Direct Bilirubin AST ALT Alkaline Phosphatase Ammonia CK-MB (CK-2) CK-MB (CK-2) Rel Index Total Protein Albumin Arterial Blood Glucose Arterial Blood Ionized Calcium Urine Creatinine Urine Total Protein Salicylates Acetaminophen Crossmatch 10/09/20 10/10/20 10/10/20 06:35 00:21 05:53 WBC RBC Hgb Hct MCV MCH MCHC RDW Plt Count Morrison % (Auto) Morrison # (Auto) Seg Neutrophils % Seg Neuts % (Manual) Lymphocytes % (Manual) Monocytes % (Manual) Basophils % (Manual) Nucleated RBC % Seg Neutrophils # Seg Neutrophils # Man Lymphocytes # (Manual) Monocytes # (Manual) Basophils # (Manual) PT INR APTT ABG pH POC ABG pCO2 POC ABG pO2 ABG Hemoglobin ABG Oxyhemoglobin ABG Sodium ABG Potassium ABG Chloride ABG Glucose Sodium Potassium Chloride Carbon Dioxide BUN Creatinine Glucose POC Glucose 106 H 153 H 34 L Lactic Acid Calcium Iron Total Bilirubin Direct Bilirubin AST ALT Alkaline Phosphatase Ammonia CK-MB (CK-2) CK-MB (CK-2) Rel Index Total Protein Albumin Arterial Blood Glucose Arterial Blood Ionized Calcium Urine Creatinine Urine Total Protein Salicylates Acetaminophen Crossmatch 10/10/20 10/10/20 10/10/20 10:58 10:58 12:39 WBC RBC Hgb 10.3 L Hct 33.9 L MCV 78 L MCH 24 L MCHC 30 L RDW 33.2 H Plt Count 135 L Morrison % (Auto) Morrison # (Auto) Seg Neutrophils % Seg Neuts % (Manual) 74.0 H Lymphocytes % (Manual) 12.0 L Monocytes % (Manual) 9.0 H Basophils % (Manual) 2.0 H Nucleated RBC % Seg Neutrophils # Seg Neutrophils # Man Lymphocytes # (Manual) 1.0 L Monocytes # (Manual) Basophils # (Manual) 0.2 H PT INR APTT ABG pH POC ABG pCO2 POC ABG pO2 ABG Hemoglobin ABG Oxyhemoglobin ABG Sodium ABG Potassium ABG Chloride ABG Glucose Sodium 127 L Potassium Chloride Carbon Dioxide 20 L BUN 23 H Creatinine Glucose POC Glucose 108 H Lactic Acid Calcium Iron Total Bilirubin Direct Bilirubin AST ALT Alkaline Phosphatase Ammonia CK-MB (CK-2) CK-MB (CK-2) Rel Index Total Protein Albumin Arterial Blood Glucose Arterial Blood Ionized Calcium Urine Creatinine Urine Total Protein Salicylates Acetaminophen Crossmatch 10/10/20 10/11/20 10/11/20 16:51 04:56 05:51 WBC RBC Hgb 9.5 L Hct 31.3 L MCV 77 L MCH 23 L MCHC 30 L RDW 33.7 H Plt Count Morrison % (Auto) Morrison # (Auto) Seg Neutrophils % Seg Neuts % (Manual) 95.0 H Lymphocytes % (Manual) 2.0 L Monocytes % (Manual) Basophils % (Manual) Nucleated RBC % 3.0 H Seg Neutrophils # Seg Neutrophils # Man 8.0 H Lymphocytes # (Manual) 0.2 L Monocytes # (Manual) Basophils # (Manual) PT INR APTT ABG pH POC ABG pCO2 POC ABG pO2 ABG Hemoglobin ABG Oxyhemoglobin ABG Sodium ABG Potassium ABG Chloride ABG Glucose Sodium Potassium Chloride Carbon Dioxide BUN Creatinine Glucose POC Glucose 142 H 124 H Lactic Acid Calcium Iron Total Bilirubin Direct Bilirubin AST ALT Alkaline Phosphatase Ammonia CK-MB (CK-2) CK-MB (CK-2) Rel Index Total Protein Albumin Arterial Blood Glucose Arterial Blood Ionized Calcium Urine Creatinine Urine Total Protein Salicylates Acetaminophen Crossmatch 10/11/20 10/11/20 10/12/20 05:51 11:56 04:53 WBC RBC Hgb 9.5 L Hct 30.0 L MCV 75 L MCH 24 L MCHC RDW 32.8 H Plt Count 136 L Morrison % (Auto) Morrison # (Auto) Seg Neutrophils % Seg Neuts % (Manual) 89.0 H Lymphocytes % (Manual) 5.0 L Monocytes % (Manual) Basophils % (Manual) Nucleated RBC % Seg Neutrophils # Seg Neutrophils # Man Lymphocytes # (Manual) 0.4 L Monocytes # (Manual) Basophils # (Manual) PT INR APTT ABG pH POC ABG pCO2 POC ABG pO2 ABG Hemoglobin ABG Oxyhemoglobin ABG Sodium ABG Potassium ABG Chloride ABG Glucose Sodium 130 L Potassium Chloride Carbon Dioxide 18 L BUN 23 H Creatinine Glucose POC Glucose 126 H Lactic Acid Calcium Iron Total Bilirubin Direct Bilirubin AST ALT Alkaline Phosphatase Ammonia CK-MB (CK-2) CK-MB (CK-2) Rel Index Total Protein Albumin Arterial Blood Glucose Arterial Blood Ionized Calcium Urine Creatinine Urine Total Protein Salicylates Acetaminophen Crossmatch 10/12/20 10/12/20 10/12/20 04:53 11:42 23:49 WBC RBC Hgb Hct MCV MCH MCHC RDW Plt Count Morrison % (Auto) Morrison # (Auto) Seg Neutrophils % Seg Neuts % (Manual) Lymphocytes % (Manual) Monocytes % (Manual) Basophils % (Manual) Nucleated RBC % Seg Neutrophils # Seg Neutrophils # Man Lymphocytes # (Manual) Monocytes # (Manual) Basophils # (Manual) PT INR APTT ABG pH POC ABG pCO2 POC ABG pO2 ABG Hemoglobin ABG Oxyhemoglobin ABG Sodium ABG Potassium ABG Chloride ABG Glucose Sodium 130 L Potassium Chloride Carbon Dioxide 18 L BUN 25 H Creatinine Glucose 74 L POC Glucose 59 L 51 L Lactic Acid Calcium Iron Total Bilirubin Direct Bilirubin AST ALT Alkaline Phosphatase Ammonia CK-MB (CK-2) CK-MB (CK-2) Rel Index Total Protein Albumin Arterial Blood Glucose Arterial Blood Ionized Calcium Urine Creatinine Urine Total Protein Salicylates Acetaminophen Crossmatch 10/13/20 10/13/20 10/13/20 03:17 05:24 05:24 WBC RBC Hgb 9.4 L Hct 29.4 L MCV 75 L MCH 24 L MCHC RDW 32.9 H Plt Count 95 L Morrison % (Auto) Morrison # (Auto) Seg Neutrophils % Seg Neuts % (Manual) 90.0 H Lymphocytes % (Manual) Monocytes % (Manual) Basophils % (Manual) Nucleated RBC % 2.0 H Seg Neutrophils # Seg Neutrophils # Man 9.5 H Lymphocytes # (Manual) 0.0 L Monocytes # (Manual) Basophils # (Manual) PT INR APTT ABG pH POC ABG pCO2 POC ABG pO2 ABG Hemoglobin ABG Oxyhemoglobin ABG Sodium ABG Potassium ABG Chloride ABG Glucose Sodium 132 L Potassium Chloride Carbon Dioxide 17 L BUN 26 H Creatinine 1.6 H Glucose POC Glucose 67 L Lactic Acid Calcium Iron Total Bilirubin Direct Bilirubin AST ALT Alkaline Phosphatase Ammonia CK-MB (CK-2) CK-MB (CK-2) Rel Index Total Protein Albumin Arterial Blood Glucose Arterial Blood Ionized Calcium Urine Creatinine Urine Total Protein Salicylates Acetaminophen Crossmatch 10/13/20 10/14/20 10/14/20 11:36 05:04 05:04 WBC 17.4 H RBC Hgb 9.3 L Hct 29.3 L MCV 76 L MCH 24 L MCHC RDW 33.8 H Plt Count 83 L Morrison % (Auto) Morrison # (Auto) Seg Neutrophils % Seg Neuts % (Manual) 89.0 H Lymphocytes % (Manual) 4.0 L Monocytes % (Manual) Basophils % (Manual) Nucleated RBC % 1.0 H Seg Neutrophils # Seg Neutrophils # Man 15.5 H Lymphocytes # (Manual) 0.7 L Monocytes # (Manual) Basophils # (Manual) PT INR APTT ABG pH POC ABG pCO2 POC ABG pO2 ABG Hemoglobin ABG Oxyhemoglobin ABG Sodium ABG Potassium ABG Chloride ABG Glucose Sodium 132 L Potassium 5.3 H Chloride 108.7 H Carbon Dioxide 15 L BUN 25 H Creatinine 1.5 H Glucose POC Glucose 58 L Lactic Acid Calcium Iron Total Bilirubin Direct Bilirubin AST ALT Alkaline Phosphatase Ammonia CK-MB (CK-2) CK-MB (CK-2) Rel Index Total Protein Albumin Arterial Blood Glucose Arterial Blood Ionized Calcium Urine Creatinine Urine Total Protein Salicylates Acetaminophen Crossmatch 10/14/20 10/14/20 10/14/20 05:41 08:19 15:34 WBC RBC Hgb Hct MCV MCH MCHC RDW Plt Count Morrison % (Auto) Morrison # (Auto) Seg Neutrophils % Seg Neuts % (Manual) Lymphocytes % (Manual) Monocytes % (Manual) Basophils % (Manual) Nucleated RBC % Seg Neutrophils # Seg Neutrophils # Man Lymphocytes # (Manual) Monocytes # (Manual) Basophils # (Manual) PT INR APTT ABG pH POC ABG pCO2 POC ABG pO2 ABG Hemoglobin ABG Oxyhemoglobin ABG Sodium ABG Potassium ABG Chloride ABG Glucose Sodium 134 L Potassium 5.2 H Chloride 111.1 H Carbon Dioxide 16 L BUN 25 H Creatinine 1.5 H Glucose POC Glucose 58 L 120 H Lactic Acid Calcium Iron Total Bilirubin Direct Bilirubin AST ALT Alkaline Phosphatase Ammonia CK-MB (CK-2) CK-MB (CK-2) Rel Index Total Protein Albumin Arterial Blood Glucose Arterial Blood Ionized Calcium Urine Creatinine Urine Total Protein Salicylates Acetaminophen Crossmatch 10/14/20 10/15/20 10/15/20 Unknown 05:50 05:50 WBC 14.1 H RBC Hgb 9.4 L Hct 29.9 L MCV 76 L MCH 24 L MCHC 31 L RDW 34.2 H Plt Count 86 L Morrison % (Auto) 8.3 H Morrison # (Auto) 1.3 H Seg Neutrophils % 86.5 H Seg Neuts % (Manual) Lymphocytes % (Manual) 9.0 L Monocytes % (Manual) Basophils % (Manual) Nucleated RBC % 6.0 H Seg Neutrophils # 13.2 H Seg Neutrophils # Man 9.7 H Lymphocytes # (Manual) Monocytes # (Manual) Basophils # (Manual) PT INR APTT ABG pH POC ABG pCO2 POC ABG pO2 ABG Hemoglobin ABG Oxyhemoglobin ABG Sodium ABG Potassium ABG Chloride ABG Glucose Sodium 134 L Potassium Chloride 109.9 H Carbon Dioxide 18 L BUN 26 H Creatinine 1.5 H Glucose 125 H POC Glucose Lactic Acid Calcium Iron Total Bilirubin Direct Bilirubin AST ALT Alkaline Phosphatase Ammonia CK-MB (CK-2) CK-MB (CK-2) Rel Index Total Protein Albumin Arterial Blood Glucose Arterial Blood Ionized Calcium Urine Creatinine 144.2 H Urine Total Protein 97 H Salicylates Acetaminophen Crossmatch 10/15/20 10/15/20 10/15/20 05:55 07:36 07:59 WBC RBC Hgb Hct MCV MCH MCHC RDW Plt Count Morrison % (Auto) Morrison # (Auto) Seg Neutrophils % Seg Neuts % (Manual) Lymphocytes % (Manual) Monocytes % (Manual) Basophils % (Manual) Nucleated RBC % Seg Neutrophils # Seg Neutrophils # Man Lymphocytes # (Manual) Monocytes # (Manual) Basophils # (Manual) PT INR APTT ABG pH 7.052 L POC ABG pCO2 65.0 H POC ABG pO2 214.1 H ABG Hemoglobin 10.6 L ABG Oxyhemoglobin 98.3 H ABG Sodium 130.6 L ABG Potassium ABG Chloride 110.0 H ABG Glucose 124 H Sodium Potassium Chloride Carbon Dioxide BUN Creatinine Glucose POC Glucose 113 H 114 H Lactic Acid Calcium Iron Total Bilirubin Direct Bilirubin AST ALT Alkaline Phosphatase Ammonia CK-MB (CK-2) CK-MB (CK-2) Rel Index Total Protein Albumin Arterial Blood Glucose 124 H Arterial Blood Ionized Calcium Urine Creatinine Urine Total Protein Salicylates Acetaminophen Crossmatch 10/15/20 10/15/20 10/15/20 10:50 11:27 13:56 WBC RBC Hgb Hct MCV MCH MCHC RDW Plt Count Morrison % (Auto) Morrison # (Auto) Seg Neutrophils % Seg Neuts % (Manual) Lymphocytes % (Manual) Monocytes % (Manual) Basophils % (Manual) Nucleated RBC % Seg Neutrophils # Seg Neutrophils # Man Lymphocytes # (Manual) Monocytes # (Manual) Basophils # (Manual) PT INR APTT ABG pH 7.200 L POC ABG pCO2 POC ABG pO2 123.1 H ABG Hemoglobin ABG Oxyhemoglobin ABG Sodium 131.3 L ABG Potassium 4.6 H ABG Chloride 112.0 H ABG Glucose 42 L Sodium Potassium Chloride Carbon Dioxide BUN Creatinine Glucose POC Glucose 50 L 476 H Lactic Acid Calcium Iron Total Bilirubin Direct Bilirubin AST ALT Alkaline Phosphatase Ammonia CK-MB (CK-2) CK-MB (CK-2) Rel Index Total Protein Albumin Arterial Blood Glucose 42 L Arterial Blood Ionized Calcium Urine Creatinine Urine Total Protein Salicylates Acetaminophen Crossmatch 10/15/20 10/15/20 10/16/20 16:46 17:01 00:45 WBC RBC Hgb Hct MCV MCH MCHC RDW Plt Count Morrison % (Auto) Morrison # (Auto) Seg Neutrophils % Seg Neuts % (Manual) Lymphocytes % (Manual) Monocytes % (Manual) Basophils % (Manual) Nucleated RBC % Seg Neutrophils # Seg Neutrophils # Man Lymphocytes # (Manual) Monocytes # (Manual) Basophils # (Manual) PT INR APTT ABG pH 7.250 L POC ABG pCO2 POC ABG pO2 49.8 L ABG Hemoglobin 9.3 L ABG Oxyhemoglobin 83.0 L ABG Sodium 130.2 L ABG Potassium ABG Chloride 111.0 H ABG Glucose Sodium 135 L Potassium Chloride Carbon Dioxide BUN Creatinine Glucose POC Glucose 67 L Lactic Acid Calcium Iron Total Bilirubin Direct Bilirubin AST ALT Alkaline Phosphatase Ammonia CK-MB (CK-2) CK-MB (CK-2) Rel Index Total Protein Albumin Arterial Blood Glucose Arterial Blood Ionized Calcium Urine Creatinine Urine Total Protein Salicylates Acetaminophen Crossmatch 10/16/20 10/16/20 10/16/20 05:36 05:53 05:53 WBC 16.6 H RBC 3.52 L Hgb 8.3 L Hct 26.6 L MCV 75 L MCH 23 L MCHC 31 L RDW 33.7 H Plt Count 63 L Morrison % (Auto) Morrison # (Auto) Seg Neutrophils % Seg Neuts % (Manual) 93.0 H Lymphocytes % (Manual) Monocytes % (Manual) Basophils % (Manual) Nucleated RBC % 3.0 H Seg Neutrophils # Seg Neutrophils # Man 15.4 H Lymphocytes # (Manual) 0.0 L Monocytes # (Manual) Basophils # (Manual) PT INR APTT ABG pH POC ABG pCO2 POC ABG pO2 ABG Hemoglobin ABG Oxyhemoglobin ABG Sodium ABG Potassium ABG Chloride ABG Glucose Sodium 136 L Potassium Chloride 111.9 H Carbon Dioxide 17 L BUN 29 H Creatinine 2.0 H Glucose 126 H POC Glucose 44 L Lactic Acid Calcium 8.1 L Iron Total Bilirubin Direct Bilirubin AST ALT Alkaline Phosphatase Ammonia CK-MB (CK-2) CK-MB (CK-2) Rel Index Total Protein Albumin Arterial Blood Glucose Arterial Blood Ionized Calcium Urine Creatinine Urine Total Protein Salicylates Acetaminophen Crossmatch 10/16/20 10/16/20 10/16/20 05:53 07:26 08:07 WBC RBC Hgb Hct MCV MCH MCHC RDW Plt Count Morrison % (Auto) Morrison # (Auto) Seg Neutrophils % Seg Neuts % (Manual) Lymphocytes % (Manual) Monocytes % (Manual) Basophils % (Manual) Nucleated RBC % Seg Neutrophils # Seg Neutrophils # Man Lymphocytes # (Manual) Monocytes # (Manual) Basophils # (Manual) PT 24.5 H INR 2.17 H APTT ABG pH POC ABG pCO2 POC ABG pO2 ABG Hemoglobin ABG Oxyhemoglobin ABG Sodium ABG Potassium ABG Chloride ABG Glucose Sodium Potassium Chloride Carbon Dioxide BUN Creatinine Glucose POC Glucose 58 L 51 L Lactic Acid Calcium Iron Total Bilirubin Direct Bilirubin AST ALT Alkaline Phosphatase Ammonia CK-MB (CK-2) CK-MB (CK-2) Rel Index Total Protein Albumin Arterial Blood Glucose Arterial Blood Ionized Calcium Urine Creatinine Urine Total Protein Salicylates Acetaminophen Crossmatch 10/16/20 10/16/20 10/16/20 08:52 11:14 11:33 WBC RBC Hgb Hct MCV MCH MCHC RDW Plt Count Morrison % (Auto) Morrison # (Auto) Seg Neutrophils % Seg Neuts % (Manual) Lymphocytes % (Manual) Monocytes % (Manual) Basophils % (Manual) Nucleated RBC % Seg Neutrophils # Seg Neutrophils # Man Lymphocytes # (Manual) Monocytes # (Manual) Basophils # (Manual) PT INR APTT ABG pH 7.044 L POC ABG pCO2 58.1 H POC ABG pO2 57.7 L ABG Hemoglobin 9.5 L ABG Oxyhemoglobin 81.5 L ABG Sodium 131.7 L ABG Potassium ABG Chloride 112.0 H ABG Glucose 59 L Sodium Potassium Chloride Carbon Dioxide BUN Creatinine Glucose POC Glucose 58 L Lactic Acid Calcium Iron Total Bilirubin Direct Bilirubin AST 136 H ALT 72 H Alkaline Phosphatase 240 H Ammonia CK-MB (CK-2) CK-MB (CK-2) Rel Index Total Protein 5.1 L Albumin 2.1 L Arterial Blood Glucose 59 L Arterial Blood Ionized Calcium Urine Creatinine Urine Total Protein Salicylates Acetaminophen Crossmatch 10/16/20 10/16/20 10/16/20 12:32 13:11 13:40 WBC RBC Hgb Hct MCV MCH MCHC RDW Plt Count Morrison % (Auto) Morrison # (Auto) Seg Neutrophils % Seg Neuts % (Manual) Lymphocytes % (Manual) Monocytes % (Manual) Basophils % (Manual) Nucleated RBC % Seg Neutrophils # Seg Neutrophils # Man Lymphocytes # (Manual) Monocytes # (Manual) Basophils # (Manual) PT INR APTT ABG pH POC ABG pCO2 POC ABG pO2 ABG Hemoglobin ABG Oxyhemoglobin ABG Sodium ABG Potassium ABG Chloride ABG Glucose Sodium Potassium Chloride Carbon Dioxide BUN Creatinine Glucose POC Glucose 27 L 54 L 69 L Lactic Acid Calcium Iron Total Bilirubin Direct Bilirubin AST ALT Alkaline Phosphatase Ammonia CK-MB (CK-2) CK-MB (CK-2) Rel Index Total Protein Albumin Arterial Blood Glucose Arterial Blood Ionized Calcium Urine Creatinine Urine Total Protein Salicylates Acetaminophen Crossmatch 10/16/20 10/16/20 10/16/20 15:13 17:15 17:34 WBC RBC Hgb Hct MCV MCH MCHC RDW Plt Count Morrison % (Auto) Morrison # (Auto) Seg Neutrophils % Seg Neuts % (Manual) Lymphocytes % (Manual) Monocytes % (Manual) Basophils % (Manual) Nucleated RBC % Seg Neutrophils # Seg Neutrophils # Man Lymphocytes # (Manual) Monocytes # (Manual) Basophils # (Manual) PT INR APTT ABG pH POC ABG pCO2 POC ABG pO2 ABG Hemoglobin ABG Oxyhemoglobin ABG Sodium ABG Potassium ABG Chloride ABG Glucose Sodium Potassium Chloride Carbon Dioxide BUN Creatinine Glucose POC Glucose 46 L 54 L 119 H Lactic Acid Calcium Iron Total Bilirubin Direct Bilirubin AST ALT Alkaline Phosphatase Ammonia CK-MB (CK-2) CK-MB (CK-2) Rel Index Total Protein Albumin Arterial Blood Glucose Arterial Blood Ionized Calcium Urine Creatinine Urine Total Protein Salicylates Acetaminophen Crossmatch 10/16/20 10/16/20 10/16/20 18:51 19:37 21:00 WBC RBC Hgb Hct MCV MCH MCHC RDW Plt Count Morrison % (Auto) Morrison # (Auto) Seg Neutrophils % Seg Neuts % (Manual) Lymphocytes % (Manual) Monocytes % (Manual) Basophils % (Manual) Nucleated RBC % Seg Neutrophils # Seg Neutrophils # Man Lymphocytes # (Manual) Monocytes # (Manual) Basophils # (Manual) PT INR APTT ABG pH 7.122 L POC ABG pCO2 49.8 H POC ABG pO2 62.1 L ABG Hemoglobin 9.1 L ABG Oxyhemoglobin 89.6 L ABG Sodium 130.1 L ABG Potassium 3.0 L ABG Chloride 111.0 H ABG Glucose 106 H Sodium Potassium Chloride Carbon Dioxide BUN Creatinine Glucose POC Glucose 64 L 114 H Lactic Acid Calcium Iron Total Bilirubin Direct Bilirubin AST ALT Alkaline Phosphatase Ammonia CK-MB (CK-2) CK-MB (CK-2) Rel Index Total Protein Albumin Arterial Blood Glucose 106 H Arterial Blood Ionized Calcium Urine Creatinine Urine Total Protein Salicylates Acetaminophen Crossmatch 10/16/20 10/16/20 10/17/20 22:01 22:58 00:58 WBC RBC Hgb Hct MCV MCH MCHC RDW Plt Count Morrison % (Auto) Morrison # (Auto) Seg Neutrophils % Seg Neuts % (Manual) Lymphocytes % (Manual) Monocytes % (Manual) Basophils % (Manual) Nucleated RBC % Seg Neutrophils # Seg Neutrophils # Man Lymphocytes # (Manual) Monocytes # (Manual) Basophils # (Manual) PT INR APTT ABG pH POC ABG pCO2 POC ABG pO2 ABG Hemoglobin ABG Oxyhemoglobin ABG Sodium ABG Potassium ABG Chloride ABG Glucose Sodium 133 L Potassium 3.5 L Chloride 107.7 H Carbon Dioxide 15 L BUN 29 H Creatinine 2.6 H Glucose POC Glucose 63 L 292 H Lactic Acid Calcium 7.9 L Iron Total Bilirubin Direct Bilirubin AST ALT Alkaline Phosphatase Ammonia CK-MB (CK-2) CK-MB (CK-2) Rel Index Total Protein Albumin Arterial Blood Glucose Arterial Blood Ionized Calcium Urine Creatinine Urine Total Protein Salicylates Acetaminophen Crossmatch 10/17/20 10/17/20 10/17/20 02:04 03:08 03:55 WBC RBC Hgb Hct MCV MCH MCHC RDW Plt Count Morrison % (Auto) Morrison # (Auto) Seg Neutrophils % Seg Neuts % (Manual) Lymphocytes % (Manual) Monocytes % (Manual) Basophils % (Manual) Nucleated RBC % Seg Neutrophils # Seg Neutrophils # Man Lymphocytes # (Manual) Monocytes # (Manual) Basophils # (Manual) PT INR APTT ABG pH POC ABG pCO2 POC ABG pO2 ABG Hemoglobin ABG Oxyhemoglobin ABG Sodium ABG Potassium ABG Chloride ABG Glucose Sodium Potassium Chloride Carbon Dioxide BUN Creatinine Glucose POC Glucose 200 H 173 H 161 H Lactic Acid Calcium Iron Total Bilirubin Direct Bilirubin AST ALT Alkaline Phosphatase Ammonia CK-MB (CK-2) CK-MB (CK-2) Rel Index Total Protein Albumin Arterial Blood Glucose Arterial Blood Ionized Calcium Urine Creatinine Urine Total Protein Salicylates Acetaminophen Crossmatch 10/17/20 10/17/20 10/17/20 04:00 04:49 04:49 WBC 17.7 H RBC 3.21 L Hgb 7.5 L Hct 25.4 L MCV 79 L MCH 24 L MCHC 30 L RDW 34.0 H Plt Count 40 L Morrison % (Auto) Morrison # (Auto) Seg Neutrophils % Seg Neuts % (Manual) Lymphocytes % (Manual) 3.0 L Monocytes % (Manual) Basophils % (Manual) Nucleated RBC % 3.0 H Seg Neutrophils # Seg Neutrophils # Man 10.6 H Lymphocytes # (Manual) 0.5 L Monocytes # (Manual) 1.1 H Basophils # (Manual) PT INR APTT ABG pH 7.116 L POC ABG pCO2 POC ABG pO2 61.1 L ABG Hemoglobin 8.4 L ABG Oxyhemoglobin 90.2 L ABG Sodium 125.0 L ABG Potassium 3.1 L ABG Chloride ABG Glucose 155 H Sodium 133 L Potassium 3.3 L Chloride Carbon Dioxide 15 L BUN 29 H Creatinine 2.7 H Glucose 138 H POC Glucose Lactic Acid Calcium 7.8 L Iron Total Bilirubin Direct Bilirubin AST ALT Alkaline Phosphatase Ammonia CK-MB (CK-2) CK-MB (CK-2) Rel Index Total Protein Albumin Arterial Blood Glucose 155 H Arterial Blood Ionized Calcium Urine Creatinine Urine Total Protein Salicylates Acetaminophen Crossmatch 10/17/20 10/17/20 10/17/20 04:58 06:01 07:50 WBC RBC Hgb Hct MCV MCH MCHC RDW Plt Count Morrison % (Auto) Morrison # (Auto) Seg Neutrophils % Seg Neuts % (Manual) Lymphocytes % (Manual) Monocytes % (Manual) Basophils % (Manual) Nucleated RBC % Seg Neutrophils # Seg Neutrophils # Man Lymphocytes # (Manual) Monocytes # (Manual) Basophils # (Manual) PT INR APTT ABG pH POC ABG pCO2 POC ABG pO2 ABG Hemoglobin ABG Oxyhemoglobin ABG Sodium ABG Potassium ABG Chloride ABG Glucose Sodium Potassium Chloride Carbon Dioxide BUN Creatinine Glucose POC Glucose 137 H 119 H 106 H Lactic Acid Calcium Iron Total Bilirubin Direct Bilirubin AST ALT Alkaline Phosphatase Ammonia CK-MB (CK-2) CK-MB (CK-2) Rel Index Total Protein Albumin Arterial Blood Glucose Arterial Blood Ionized Calcium Urine Creatinine Urine Total Protein Salicylates Acetaminophen Crossmatch 10/17/20 10/17/20 10/17/20 11:50 15:11 18:11 WBC RBC Hgb Hct MCV MCH MCHC RDW Plt Count Morrison % (Auto) Morrison # (Auto) Seg Neutrophils % Seg Neuts % (Manual) Lymphocytes % (Manual) Monocytes % (Manual) Basophils % (Manual) Nucleated RBC % Seg Neutrophils # Seg Neutrophils # Man Lymphocytes # (Manual) Monocytes # (Manual) Basophils # (Manual) PT INR APTT ABG pH POC ABG pCO2 POC ABG pO2 ABG Hemoglobin ABG Oxyhemoglobin ABG Sodium ABG Potassium ABG Chloride ABG Glucose Sodium Potassium Chloride Carbon Dioxide BUN Creatinine Glucose POC Glucose 111 H 114 H 137 H Lactic Acid Calcium Iron Total Bilirubin Direct Bilirubin AST ALT Alkaline Phosphatase Ammonia CK-MB (CK-2) CK-MB (CK-2) Rel Index Total Protein Albumin Arterial Blood Glucose Arterial Blood Ionized Calcium Urine Creatinine Urine Total Protein Salicylates Acetaminophen Crossmatch 10/17/20 10/17/20 10/18/20 19:51 23:32 04:00 WBC RBC Hgb Hct MCV MCH MCHC RDW Plt Count Morrison % (Auto) Morrison # (Auto) Seg Neutrophils % Seg Neuts % (Manual) Lymphocytes % (Manual) Monocytes % (Manual) Basophils % (Manual) Nucleated RBC % Seg Neutrophils # Seg Neutrophils # Man Lymphocytes # (Manual) Monocytes # (Manual) Basophils # (Manual) PT INR APTT ABG pH 7.276 L POC ABG pCO2 POC ABG pO2 77.7 L ABG Hemoglobin 7.2 L ABG Oxyhemoglobin ABG Sodium 122.6 L ABG Potassium ABG Chloride ABG Glucose 113 H Sodium Potassium Chloride Carbon Dioxide BUN Creatinine Glucose POC Glucose 130 H 114 H Lactic Acid Calcium Iron Total Bilirubin Direct Bilirubin AST ALT Alkaline Phosphatase Ammonia CK-MB (CK-2) CK-MB (CK-2) Rel Index Total Protein Albumin Arterial Blood Glucose 113 H Arterial Blood Ionized Calcium Urine Creatinine Urine Total Protein Salicylates Acetaminophen Crossmatch 10/18/20 10/18/20 10/18/20 04:06 04:06 04:13 WBC RBC Hgb Hct MCV MCH MCHC RDW Plt Count [place] % (Auto) Morrison # (Auto) Seg Neutrophils % Seg Neuts % (Manual) Lymphocytes % (Manual) Monocytes % (Manual) Basophils % (Manual) Nucleated RBC % Seg Neutrophils # Seg Neutrophils # Man Lymphocytes # (Manual) Monocytes # (Manual) Basophils # (Manual) PT 23.5 H INR 2.05 H APTT ABG pH POC ABG pCO2 POC ABG pO2 ABG Hemoglobin ABG Oxyhemoglobin ABG Sodium ABG Potassium ABG Chloride ABG Glucose Sodium 123 L D Potassium Chloride 97.9 L Carbon Dioxide 16 L BUN 31 H Creatinine 3.1 H Glucose 113 H POC Glucose 108 H Lactic Acid Calcium 7.4 L Iron Total Bilirubin Direct Bilirubin AST ALT Alkaline Phosphatase Ammonia CK-MB (CK-2) CK-MB (CK-2) Rel Index Total Protein Albumin Arterial Blood Glucose Arterial Blood Ionized Calcium Urine Creatinine Urine Total Protein Salicylates Acetaminophen Crossmatch 10/18/20 10/18/20 10/18/20 10:03 14:12 19:08 WBC RBC Hgb Hct MCV MCH MCHC RDW Plt Count [place] % (Auto) Morrison # (Auto) Seg Neutrophils % Seg Neuts % (Manual) Lymphocytes % (Manual) Monocytes % (Manual) Basophils % (Manual) Nucleated RBC % Seg Neutrophils # Seg Neutrophils # Man Lymphocytes # (Manual) Monocytes # (Manual) Basophils # (Manual) PT INR APTT ABG pH POC ABG pCO2 POC ABG pO2 ABG Hemoglobin ABG Oxyhemoglobin ABG Sodium ABG Potassium ABG Chloride ABG Glucose Sodium Potassium Chloride Carbon Dioxide BUN Creatinine Glucose POC Glucose 139 H 112 H Lactic Acid Calcium Iron Total Bilirubin Direct Bilirubin AST ALT Alkaline Phosphatase Ammonia CK-MB (CK-2) CK-MB (CK-2) Rel Index Total Protein Albumin Arterial Blood Glucose Arterial Blood Ionized Calcium Urine Creatinine Urine Total Protein Salicylates Acetaminophen Crossmatch See Detail 10/18/20 10/19/20 10/19/20 Unknown 02:02 04:00 WBC 19.8 H RBC 2.95 L Hgb 6.9 L Hct 22.2 L MCV 75 L MCH 24 L MCHC 31 L RDW 33.6 H Plt Count 28 L Morrison % (Auto) Morrison # (Auto) Seg Neutrophils % Seg Neuts % (Manual) Lymphocytes % (Manual) Monocytes % (Manual) Basophils % (Manual) Nucleated RBC % Seg Neutrophils # Seg Neutrophils # Man Lymphocytes # (Manual) Monocytes # (Manual) Basophils # (Manual) PT INR APTT ABG pH 7.234 L POC ABG pCO2 POC ABG pO2 53.9 L ABG Hemoglobin 8.9 L ABG Oxyhemoglobin 86.6 L ABG Sodium 118.1 L ABG Potassium ABG Chloride 94.0 L ABG Glucose 61 L Sodium Potassium Chloride Carbon Dioxide BUN Creatinine Glucose POC Glucose 64 L Lactic Acid Calcium Iron Total Bilirubin Direct Bilirubin AST ALT Alkaline Phosphatase Ammonia CK-MB (CK-2) CK-MB (CK-2) Rel Index Total Protein Albumin Arterial Blood Glucose 61 L Arterial Blood Ionized Calcium 4.5 L Urine Creatinine Urine Total Protein Salicylates Acetaminophen Crossmatch 10/19/20 10/19/20 10/19/20 04:51 04:51 05:43 WBC 18.2 H RBC 3.26 L Hgb 7.9 L Hct 24.6 L MCV 76 L MCH 24 L MCHC RDW 30.7 H Plt Count 41 L Morrison % (Auto) Morrison # (Auto) Seg Neutrophils % Seg Neuts % (Manual) Lymphocytes % (Manual) Monocytes % (Manual) Basophils % (Manual) Nucleated RBC % Seg Neutrophils # Seg Neutrophils # Man Lymphocytes # (Manual) Monocytes # (Manual) Basophils # (Manual) PT INR APTT ABG pH POC ABG pCO2 POC ABG pO2 ABG Hemoglobin ABG Oxyhemoglobin ABG Sodium ABG Potassium ABG Chloride ABG Glucose Sodium 122 L Potassium Chloride 94.6 L Carbon Dioxide 17 L BUN 33 H Creatinine 3.5 H Glucose 63 L POC Glucose 54 L Lactic Acid Calcium 7.3 L Iron Total Bilirubin 1.50 H Direct Bilirubin 0.9 H AST ALT Alkaline Phosphatase 154 H Ammonia CK-MB (CK-2) CK-MB (CK-2) Rel Index Total Protein 4.2 L Albumin 1.9 L Arterial Blood Glucose Arterial Blood Ionized Calcium Urine Creatinine Urine Total Protein Salicylates Acetaminophen Crossmatch 10/19/20 10/19/20 10/19/20 11:23 11:45 14:24 WBC RBC Hgb Hct MCV MCH MCHC RDW Plt Count [place] % (Auto) Morrison # (Auto) Seg Neutrophils % Seg Neuts % (Manual) Lymphocytes % (Manual) Monocytes % (Manual) Basophils % (Manual) Nucleated RBC % Seg Neutrophils # Seg Neutrophils # Man Lymphocytes # (Manual) Monocytes # (Manual) Basophils # (Manual) PT INR APTT ABG pH POC ABG pCO2 POC ABG pO2 ABG Hemoglobin ABG Oxyhemoglobin ABG Sodium ABG Potassium ABG Chloride ABG Glucose Sodium Potassium Chloride Carbon Dioxide BUN Creatinine Glucose POC Glucose 47 L 117 H 47 L Lactic Acid Calcium Iron Total Bilirubin Direct Bilirubin AST ALT Alkaline Phosphatase Ammonia CK-MB (CK-2) CK-MB (CK-2) Rel Index Total Protein Albumin Arterial Blood Glucose Arterial Blood Ionized Calcium Urine Creatinine Urine Total Protein Salicylates Acetaminophen Crossmatch 10/19/20 16:31 WBC RBC Hgb Hct MCV MCH MCHC RDW Plt Count Morrison % (Auto) Morrison # (Auto) Seg Neutrophils % Seg Neuts % (Manual) Lymphocytes % (Manual) Monocytes % (Manual) Basophils % (Manual) Nucleated RBC % Seg Neutrophils # Seg Neutrophils # Man Lymphocytes # (Manual) Monocytes # (Manual) Basophils # (Manual) PT INR APTT ABG pH POC ABG pCO2 POC ABG pO2 ABG Hemoglobin ABG Oxyhemoglobin ABG Sodium ABG Potassium ABG Chloride ABG Glucose Sodium Potassium Chloride Carbon Dioxide BUN Creatinine Glucose POC Glucose 58 L Lactic Acid Calcium Iron Total Bilirubin Direct Bilirubin AST ALT Alkaline Phosphatase Ammonia CK-MB (CK-2) CK-MB (CK-2) Rel Index Total Protein Albumin Arterial Blood Glucose Arterial Blood Ionized Calcium Urine Creatinine Urine Total Protein Salicylates Acetaminophen Crossmatch Chest x-ray: image reviewed (ETT at 7cm above the keri) Allied health notes reviewed: RT
[2020-10-19] MEDS: HYDROCORTISONE SOD SUCC 100 MG/2 ML VIAL IV SCH (18:49)
--- NOTE | 2020-10-19 18:57 | XRay Report ---
CHEST 1 VIEW 10/19/2020 5:47 PM INDICATION / CLINICAL INFORMATION: subq air. COMPARISON: 10/19/2020 FINDINGS: SUPPORT DEVICES: Stable, satisfactory device positioning. HEART / MEDIASTINUM: No significant abnormality. LUNGS / PLEURA: Diffuse bilateral pulmonary opacities persist and appear increased with bilateral ple ural effusions No pneumothorax. ADDITIONAL FINDINGS: No significant additional findings. IMPRESSION: 1. Worsening bilateral pulmonary opacities and effusions. There may be a small amount of subcutaneous gas in the right chest wall however this is minimal at this time. Signer Name: Caden Fuchs MD Signed: 10/19/2020 6:53 PM Workstation Name: [id number]
[2020-10-19] MEDS: CEFEPIME/NS 2 GM/100 ML 2 GM/100 ML BAG IV SCH (23:13)
[2020-10-20] MEDS: DEXTROSE 50% IN WATER (25GM) 50 ML SYRINGE IV PRN ×3 (00:31→23:42)
[2020-10-20] MEDS: VASOPRESSIN 20 UNIT in SODIUM CHLORIDE 0.9% 100 ML IV SCH ×3 (01:27→22:37)
[2020-10-20] MEDS: HYDROCORTISONE SOD SUCC 100 MG/2 ML VIAL IV SCH ×3 (02:40→17:55)
[2020-10-20] MEDS: DOBUTamine/D5W 500 MG/250 ML 500 MG/250 ML BAG IV SCH (04:00)
[2020-10-20] MEDS: FUROSEMIDE 40 MG/4 ML INJ IV SCH (05:38)
[2020-10-20] MEDS: NORepinephrine/NS 8 MG-250 ML 8 MG/250 ML INFUS..BTL IV SCH ×2 (08:49→22:35)
[2020-10-20 08:50] LABS: Hematocrit 25.3 % (35.5-45.6); Hemoglobin 8.3 gm/dl (11.8-15.2); Mean Corpuscular HGB Conc 33 % (32-34); Mean Corpuscular Volume 74 fl (84-94); Red Blood Count 3.42 M/mm3 (3.65-5.03)
[2020-10-20 09:13] LABS: Albumin 1.6 g/dL (3.9-5); Calcium 7.7 mg/dL (8.4-10.2)
--- NOTE | 2020-10-20 09:13 | Progress Note ---
Assessment and Plan Acute encephalopathy Hyponatremia Hypothermia, resolved Pulmonary infiltrate in right lung on CXR Atherosclerotic cerebrovascular disease Severe anemia -possible GI bleed Severe protein-calorie malnutrition Acute Renal Failure Hypokalemia Plan: discussed with ICU team, will likely needs HD if worsening in kidney function or pulm edema on CXR he has very poor prognosis, however, family is requesting full care, most recent BP rangign ~100-110, it is unclear if he would tolerated dialysis or if [employer] will change overall prognosis. No salt tabs as have CHF. Echo done 10/04/20 showed LVEF 25-30% Avoid correction more than 8 mmol/l in 24 hours Obtain renal ultrasound Replete potassium as needed Avoid nephrotoxic agents Obtain daily weights Monitor I/O's daily Subjective Date of service: 10/20/20 Principal diagnosis: Ac hypoxemic resp failure; Pneumonia; BETSY; Ac. encephalopathy Interval history: intubated, no family at bedside Objective - Vital Signs Vital signs: Vital Signs - 12hr 10/19/20 10/19/20 10/19/20 21:15 21:31 21:45 Temperature Pulse Rate 80 72 87 Pulse Rate [ From Monitor] Respiratory 30 H 18 25 H Rate Blood Pressure 130/63 116/58 108/66 O2 Sat by Pulse 99 99 99 Oximetry 10/19/20 10/19/20 10/19/20 22:00 22:15 22:31 Temperature Pulse Rate 83 73 78 Pulse Rate [ From Monitor] Respiratory 30 H 29 H 26 H Rate Blood Pressure 107/62 107/62 119/60 O2 Sat by Pulse 99 99 99 Oximetry 10/19/20 10/19/20 10/19/20 22:45 23:00 23:15 Temperature Pulse Rate 76 80 65 Pulse Rate [ From Monitor] Respiratory 26 H 23 30 H Rate Blood Pressure 119/70 128/66 128/63 O2 Sat by Pulse 99 99 99 Oximetry 10/19/20 10/19/20 10/19/20 23:22 23:30 23:45 Temperature Pulse Rate 78 93 H 95 H Pulse Rate [ From Monitor] Respiratory 30 H 27 H 20 Rate Blood Pressure 119/70 130/65 119/68 O2 Sat by Pulse 100 100 100 Oximetry 10/19/20 10/20/20 10/20/20 23:49 00:00 00:01 Temperature Pulse Rate 91 H 93 H 93 H Pulse Rate [ 93 H From Monitor] Respiratory 29 H 22 30 H Rate Blood Pressure 119/68 124/73 O2 Sat by Pulse 99 100 100 Oximetry 10/20/20 10/20/20 10/20/20 00:13 00:15 00:30 Temperature Pulse Rate 92 H 91 H 91 H Pulse Rate [ From Monitor] Respiratory 30 H 30 H Rate Blood Pressure 138/71 138/71 135/71 O2 Sat by Pulse 99 99 100 Oximetry 10/20/20 10/20/20 10/20/20 00:45 01:00 01:15 Temperature 96.6 F L Pulse Rate 86 85 110 H Pulse Rate [ From Monitor] Respiratory 30 H 30 H 30 H Rate Blood Pressure 123/72 132/69 136/79 O2 Sat by Pulse 100 100 99 Oximetry 10/20/20 10/20/20 10/20/20 01:31 01:45 02:00 Temperature Pulse Rate 82 80 79 Pulse Rate [ From Monitor] Respiratory 27 H 30 H 31 H Rate Blood Pressure 128/53 138/54 134/65 O2 Sat by Pulse 100 100 100 Oximetry 10/20/20 10/20/20 10/20/20 02:15 02:30 02:45 Temperature Pulse Rate 126 H 83 81 Pulse Rate [ From Monitor] Respiratory 30 H 30 H 30 H Rate Blood Pressure 148/75 144/72 144/69 O2 Sat by Pulse 100 100 100 Oximetry 10/20/20 10/20/20 10/20/20 03:00 03:15 03:30 Temperature Pulse Rate 126 H 111 H 107 H Pulse Rate [ From Monitor] Respiratory 23 29 H 17 Rate Blood Pressure 155/87 136/77 125/74 O2 Sat by Pulse 99 99 99 Oximetry 10/20/20 10/20/20 10/20/20 03:45 04:00 04:01 Temperature Pulse Rate 76 86 86 Pulse Rate [ 86 From Monitor] Respiratory 30 H 24 22 Rate Blood Pressure 134/70 95/55 O2 Sat by Pulse 100 100 99 Oximetry 10/20/20 10/20/20 10/20/20 04:11 04:15 04:28 Temperature 96.6 F L Pulse Rate 83 Pulse Rate [ From Monitor] Respiratory Rate Blood Pressure 125/74 O2 Sat by Pulse 99 99 Oximetry 10/20/20 10/20/20 10/20/20 04:30 04:45 05:00 Temperature Pulse Rate 83 79 76 Pulse Rate [ From Monitor] Respiratory 30 H 30 H 30 H Rate Blood Pressure 152/73 157/78 161/76 O2 Sat by Pulse 100 100 100 Oximetry 10/20/20 10/20/20 10/20/20 05:15 05:30 05:45 Temperature Pulse Rate 67 84 82 Pulse Rate [ From Monitor] Respiratory 30 H 28 H 30 H Rate Blood Pressure 166/73 170/80 166/73 O2 Sat by Pulse 100 100 100 Oximetry 10/20/20 10/20/20 10/20/20 06:00 06:15 06:31 Temperature Pulse Rate 97 H 78 93 H Pulse Rate [ From Monitor] Respiratory 30 H 30 H 30 H Rate Blood Pressure 144/69 130/69 165/85 O2 Sat by Pulse 100 100 100 Oximetry 10/20/20 10/20/20 10/20/20 06:45 07:01 07:03 Temperature 96.9 F L Pulse Rate 94 H 90 Pulse Rate [ From Monitor] Respiratory 30 H 30 H Rate Blood Pressure 165/85 128/70 O2 Sat by Pulse 99 99 Oximetry 10/20/20 08:00 Temperature Pulse Rate 76 Pulse Rate [ From Monitor] Respiratory Rate Blood Pressure 111/67 O2 Sat by Pulse 98 Oximetry - General Appearance General appearance: sedated on ventilator, intubated EENT: PERRL, mucous membranes dry Neck: no JVD, no carotid bruit Respiratory: Present: Decreased Breath Sounds Cardiology: tachycardia Gastrointestinal: normoactive bowel sounds, no tenderness, no distended, no masses Integumentary: no rash, warm and dry Neurologic: other (intubate) Musculoskeletal: other (2-3+ pitting edema in BLE) - Lab 10/19/20 04:51 10/19/20 20:19 Most recent lab results ABG pH 7.234 (7.320-7.450) L 10/19/20 04:00 ABG O2 Saturation 87.6 (0-100) 10/19/20 04:00 Calcium 7.3 mg/dL (8.4-10.2) L 10/19/20 04:51 Phosphorus 3.00 mg/dL (2.5-4.5) 10/06/20 05:07 Magnesium 1.90 mg/dL (1.7-2.3) 10/06/20 05:07 Urine Creatinine 144.2 mg/dL (0.1-20.0) H 10/14/20 Unknown Urine Sodium 10 mmol/L 10/14/20 Unknown Urine Total Protein 97 mg/dL (5-11.8) H 10/14/20 Unknown Medications & Allergies - Medications Allergies/Adverse Reactions: Allergies No Known Allergies Allergy (Unverified 10/03/20 12:27) Home Medications: Home Medications Medication Instructions Recorded Confirmed Last Taken Type Unobtainable 10/10/20 10/10/20 Unknown History Active Medications: Generic Name Dose Route Start Last Admin Trade Name Freq PRN Reason Stop Dose Admin Acetaminophen 650 mg 10/03/20 02:10 10/06/20 15:28 Acetaminophen 325 Mg Tab PO 650 mg Q4H PRN Administration Pain MILD(1-3)/Fever >100.5/ROMERO Al Hydrox/Mg Hydrox/Simethicone 30 ml 10/03/20 02:10 Alum-Mag Hydroxide-Simethicone [phone] Oral Liqd 30 Ml PO Q4H PRN Indigestion Lipase/Protease/Amylase 1 each 10/03/20 16:51 Lipase 10,500/Protease 25,000/Amylase 43,750 (Units) Dr Reis FEEDTUBE PRN PRN For Clogged Feeding Tube Dextrose 50 ml 10/16/20 12:42 10/20/20 04:04 Dextrose 50% In Water (25gm) 50 Ml Syringe IV 50 ml Q30MIN PRN Administration Hypoglycemia Protocol Ferrous Sulfate 308 mg 10/16/20 10:00 10/19/20 10:46 Ferrous Sulfate 308 Mg (62mg Elemental Iron) / 7 Ml Elixir FEEDTUBE 308 mg DAILY JOSE Administration Folic Acid 1 mg 10/03/20 10:00 10/19/20 10:46 Folic Acid 1 Mg Tab PO 1 mg QDAY JOSE Administration Furosemide 40 mg 10/18/20 15:00 10/20/20 05:38 Furosemide 40 Mg/4 Ml Inj IV 40 mg DAILY@0600 JOSE Administration Hydrocortisone Sodium Succinate 100 mg 10/19/20 18:00 10/20/20 02:40 Hydrocortisone Sod Succ 100 Mg/2 Ml Vial IV 100 mg Q8H JOSE Administration Levetiracetam 250 mg/ Dextrose 102.5 mls @ 400 mls/hr 10/10/20 22:00 10/19/20 22:45 IV 400 mls/hr Q12HR JOSE Administration Vasopressin 20 unit/ Sodium 101 mls @ 9.09 mls/hr 10/16/20 13:00 10/20/20 01:27 Chloride IV 0.03 units/min TITR JOSE 9.09 mls/hr Administration Protocol 0.03 UNITS/MIN Phenylephrine HCl 100 mg/ 100 mls @ 3 mls/hr 10/16/20 18:00 10/20/20 05:35 Sodium Chloride IV 50 mcg/min TITR JOSE 3 mls/hr Titration Protocol 50 MCG/MIN NORepinephrine/NS 8 MG-250 ML 8 mg in 250 mls @ 3.75 mls/hr 10/16/20 19:00 10/20/20 08:49 Norepinephrine/Ns 8 Mg-250 Ml (Double Conc) IV 10 mcg/min TITRATE JOSE 18.75 mls/hr Administration Protocol 2 MCG/MIN Amiodarone HCl 900 mg/ 500 mls @ 16.667 mls/hr 10/16/20 20:00 10/19/20 05:00 Dextrose IV 0 mg/min DIRECT JOSE 0 mls/hr Infusion Protocol 0.5 MG/MIN Dobutamine HCl/Dextrose 500 mg in 250 mls @ 6.908 mls/hr 10/16/20 19:00 10/20/20 04:00 Dobutrex Drip 500mg/D5w 250ml IV 5 mcg/kg/min DIRECT JOSE 13.815 mls/hr Administration Protocol 2.5 MCG/KG/MIN Epinephrine 8 mg/ Sodium 250 mls @ 0 mls/hr 10/16/20 23:45 10/17/20 11:33 Chloride IV 0 mls/hr TITR JOSE Infusion Cefepime HCl 2 gm in 100 mls @ 200 mls/hr 10/17/20 22:00 10/19/20 23:13 Cefepime/Ns 2 Gm/100 Ml IV 10/22/20 22:29 200 mls/hr Q24H JOSE Administration Protocol Sodium Bicarbonate 150 meq/ 1,150 mls @ 125 mls/hr 10/19/20 12:00 10/19/20 20:45 Dextrose IV 125 mls/hr DIRECT JOSE Administration Magnesium Hydroxide 30 ml 10/03/20 02:10 Magnesium Hydroxide (Mom) Oral Liqd Udc PO Q4H PRN Constipation Metoclopramide HCl 5 mg 10/17/20 09:00 Metoclopramide 10 Mg/2 Ml Inj IV Q6H PRN Nausea And Vomiting Ondansetron HCl 4 mg 10/03/20 02:10 10/07/20 23:19 Ondansetron 4 Mg/2 Ml Inj IV 4 mg Q8H PRN Administration Nausea And Vomiting Pantoprazole Sodium 40 mg 10/04/20 15:00 10/19/20 10:46 Pantoprazole 40 Mg Inj IV 40 mg QDAY JOSE Administration Promethazine HCl 25 mg 10/03/20 02:10 Promethazine 25 Mg Rect Supp MO Q6H PRN N/V IF NPO AND NO IV ACCESS Senna 8.6 mg 10/03/20 02:10 Sennosides 8.6 Mg Tab PO Q12HR PRN Constipation Simple Syrup 15 ml 10/03/20 16:51 10/19/20 02:08 Simple Syrup 15 Ml FEEDTUBE 15 ml PRN PRN Administration Hypoglycemia Simple Syrup 30 ml 10/03/20 16:51 10/16/20 22:02 Simple Syrup 15 Ml FEEDTUBE 30 ml PRN PRN Administration Hypoglycemia Sodium Bicarbonate 325 mg 10/03/20 16:51 Sodium Bicarbonate 325 Mg Tab FEEDTUBE PRN PRN For Clogged Feeding Tube
[2020-10-20] MEDS: PANTOPRAZOLE 40 MG INJ IV SCH (09:19)
[2020-10-20] MEDS: FOLIC ACID 1 MG TAB PO SCH (09:19)
[2020-10-20] MEDS: MULTIVITAMIN / MINERAL ORAL LIQUID 15 ML PO SCH (09:19)
[2020-10-20] MEDS: levETIRAcetam 250 MG in DEXTROSE 5% IN WATER 100 ML IV SCH ×2 (09:19→22:38)
[2020-10-20] MEDS: FERROUS SULFATE 308 MG (62mg Elemental Iron) / 7 ML ELIXIR FEEDTUBE SCH (09:19)
[2020-10-20] MEDS: WATER IV SCH (09:21)
[2020-10-20] MEDS: SODIUM BICARBONATE IV SCH (09:21)
[2020-10-20] MEDS: DEXTROSE 10% IV SCH (09:21)
[2020-10-20 09:33] LABS: Red Cell Distribution Width 31.4 % (13.2-15.2)
[2020-10-20 09:49] LABS: INR 2.82 (0.87-1.13)
--- NOTE | 2020-10-20 09:51 | XRay Report ---
CHEST - 1 VIEW 0912 hours INDICATION: oett placement COMPARISON: Yesterday FINDINGS: Support devices: Endotracheal tube terminates 6 cm superior to the keri. Nasogastric tube and righ t arm PICC are unchanged. Heart: Stable cardiomediastinal silhouette. Lungs/pleura: Bilateral lower lung opacities and possible small effusions are unchanged. No pneumoth orax. Additional findings: None. IMPRESSION: Endotracheal tube as described. Otherwise no change since yesterday's exam. Signer Name: Diego Edmonds Jr, MD Signed: 10/20/2020 9:46 AM Workstation Name: [id number]
[2020-10-20] MEDS ORDERED: MAGNESIUM SULFATE 2 GM/50 ML BAG IV ONE (11:00)
[2020-10-20] MEDS: PHENYLEPHRINE 100 MG in SODIUM CHLORIDE 0.9% 90 ML IV SCH (11:30)
[2020-10-20] MEDS ORDERED: SODIUM CHLORIDE 3% 500 ML IV ONE (11:45)
[2020-10-20 12:05] LABS: Platelet Count 35 K/mm3 (140-440)
--- NOTE | 2020-10-20 12:48 | Progress Note ---
Assessment and Plan Paroxysmal Afib w/RVR Tachycardia HFrEF * EKG 10/20/2020- sinus rhythm 80s * EKG 10/18/2020 shows Afib 98s with paired ventricular premature complexes * Given pt's hemodynamic instability (currently requiring multiple vasopressors), unable to start BB or non-dihydropyridine CCB * Stop Amio drip. May restart if patient converts back to afib * Would not recommend anticoagulation currently given low AF burden and anemia/thrombocytopenia * Echo 10/04/2020-EF 25 to 30%, right ventricle severely dilated and moderately hypokinetic, left atrium is mildly dilated, right atrium severely dilated, moderate to severe tricuspid regurgitation, moderate mitral regurgitation tricuspid annulus dilated. Significant narrowing in bilateral posterior cerebral arteries Left-sided hemiparesis with aphasia Atherosclerotic cerebrovascular disease * Neurology following BETSY * Nephrology following Acute hypoxic repiratory failure * Pulmonology following Patient ekg shows sinus rhythm. Stop amio gtt. May restart if patient converts back to Afib Patient seen in conjunction with Dr. Bang who agrees with this plan of care. Will see as needed over the weekend - Patient Problems (1) Afib Current Visit: Yes Status: Acute (2) Acute encephalopathy Current Visit: Yes Status: Acute (3) Atherosclerotic cerebrovascular disease Current Visit: Yes Status: Acute (4) Hypoglycemia Current Visit: Yes Status: Acute (5) Left-sided weakness Current Visit: Yes Status: Acute (6) Microcytic anemia Current Visit: Yes Status: Acute (7) Pulmonary infiltrate in right lung on CXR Current Visit: Yes Status: Acute (8) HFrEF (heart failure with reduced ejection fraction) Current Visit: Yes Status: Acute (9) Dilated cardiomyopathy Current Visit: Yes Status: Acute Subjective Date of service: 10/20/20 Principal diagnosis: Ac hypoxemic resp failure; Pneumonia; BETSY; Ac. encephalopathy Interval history: Patient intubated Patient has wandering pacemaker 70s with runs of tachycardia 130s on monitor Objective Vital Signs Temp Pulse Pulse Resp BP Pulse Ox 10/20/20 12:21 75 133/71 97 10/20/20 11:49 97.8 F 10/20/20 11:15 76 30 H 142/78 99 10/20/20 11:00 80 30 H 140/75 99 10/20/20 10:45 84 30 H 146/77 99 10/20/20 10:30 85 30 H 133/81 99 10/20/20 10:15 91 H 32 H 142/75 99 10/20/20 10:00 80 30 H 147/82 99 10/20/20 09:45 82 30 H 156/84 99 10/20/20 09:31 84 30 H 148/88 100 10/20/20 09:15 97 H 30 H 116/75 98 10/20/20 09:01 81 30 H 114/78 99 10/20/20 08:45 80 30 H 110/67 98 10/20/20 08:30 87 22 106/64 99 10/20/20 08:15 92 H 30 H 111/67 10/20/20 08:00 85 30 H 137/82 100 10/20/20 07:45 81 30 H 148/82 100 10/20/20 07:31 86 30 H 156/87 10/20/20 07:15 80 30 H 118/73 99 10/20/20 07:03 96.9 F L 10/20/20 07:01 90 30 H 128/70 99 10/20/20 06:45 94 H 30 H 165/85 10/20/20 06:31 93 H 30 H 165/85 10/20/20 06:15 78 30 H 130/69 10/20/20 06:00 97 H 30 H 144/69 10/20/20 05:45 82 30 H 166/73 10/20/20 05:30 84 28 H 170/80 10/20/20 05:15 67 30 H 166/73 10/20/20 05:00 76 30 H 161/76 10/20/20 04:45 79 30 H 157/78 10/20/20 04:30 83 30 H 152/73 100 10/20/20 04:28 96.6 F L 10/20/20 04:15 125/74 99 10/20/20 04:11 83 99 10/20/20 04:01 86 22 95/55 99 10/20/20 04:00 86 86 24 10/20/20 03:45 76 30 H 134/70 100 10/20/20 03:30 107 H 17 125/74 99 10/20/20 03:15 111 H 29 H 136/77 99 10/20/20 03:00 126 H 23 155/87 99 10/20/20 02:45 81 30 H 144/69 10/20/20 02:30 83 30 H 144/72 100 10/20/20 02:15 126 H 30 H 148/75 100 10/20/20 02:00 79 31 H 134/65 10/20/20 01:45 80 30 H 138/54 10/20/20 01:31 82 27 H 128/53 10/20/20 01:15 110 H 30 H 136/79 99 10/20/20 01:00 96.6 F L 85 30 H 132/69 10/20/20 00:45 86 30 H 123/72 10/20/20 00:30 91 H 30 H 135/71 10/20/20 00:15 91 H 30 H 138/71 10/20/20 00:13 92 H 138/71 10/20/20 00:01 93 H 30 H 124/73 10/20/20 00:00 93 H 93 H 22 10/19/20 23:49 91 H 29 H 119/68 99 10/19/20 23:45 95 H 20 119/68 100 10/19/20 23:30 93 H 27 H 130/65 100 10/19/20 23:22 78 30 H 119/70 10/19/20 23:15 65 30 H 128/63 99 10/19/20 23:00 80 23 128/66 99 10/19/20 22:45 76 26 H 119/70 99 10/19/20 22:31 78 26 H 119/60 99 10/19/20 22:15 73 29 H 107/62 99 10/19/20 22:00 83 30 H 107/62 99 10/19/20 21:45 87 25 H 108/66 99 10/19/20 21:31 72 18 116/58 99 10/19/20 21:15 80 30 H 130/63 99 10/19/20 21:00 134 H 30 H 137/83 99 10/19/20 20:45 87 30 H 119/61 100 10/19/20 20:30 76 30 H 119/61 98 10/19/20 20:15 83 24 125/61 97 10/19/20 20:00 94.8 F L 71 71 29 H 125/61 99 10/19/20 19:53 72 122/59 99 10/19/20 19:45 72 22 122/59 98 10/19/20 19:30 74 29 H 125/62 98 10/19/20 19:15 73 22 116/62 96 10/19/20 19:00 73 30 H 111/59 96 10/19/20 18:45 75 20 114/54 99 10/19/20 18:31 109/59 97 10/19/20 18:30 70 30 H 114/60 97 10/19/20 18:15 74 24 109/59 97 10/19/20 18:00 72 30 H 99/54 97 10/19/20 17:45 76 29 H 107/56 97 10/19/20 17:30 74 23 115/54 97 10/19/20 17:15 76 27 H 115/56 96 10/19/20 17:00 72 31 H 106/56 96 10/19/20 16:48 96.7 F L 10/19/20 16:45 125 H 13 109/56 97 10/19/20 16:30 31 H 95/56 97 10/19/20 16:18 77 94/53 97 10/19/20 16:15 84 25 H 94/53 97 10/19/20 16:00 71 68 17 105/50 96 10/19/20 15:45 77 21 97/52 98 10/19/20 15:30 24 91/47 97 10/19/20 15:15 125 H 22 92/49 95 10/19/20 15:01 73 19 98/46 94 10/19/20 14:45 131/67 10/19/20 14:30 75 30 H 131/67 94 10/19/20 14:15 73 30 H 122/51 94 10/19/20 14:00 84 30 H 115/53 94 10/19/20 13:45 76 30 H 116/56 95 10/19/20 13:30 75 30 H 107/55 94 10/19/20 13:15 73 30 H 113/58 95 10/19/20 13:00 84 30 H 96/60 95 10/19/20 12:45 72 30 H 108/51 96 - Physical Examination General: Other (intubated) HEENT: Positive: Mucus Membranes Dry Neck: Positive: trachea midline Cardiac: Positive: Regular Rate Lungs: Positive: Ventilated Respirations Neuro: Positive: Other (intubated) Abdomen: Positive: Soft Skin: Negative: Rash Extremities: Present: upper extr. pulses, lower extr. pulses - Labs and Meds Cardiac Enzymes 10/20/20 Range/Units 08:43 AST 27 (5-40) units/L Coagulation 10/20/20 Range/Units 08:43 PT 30.1 H (12.2-14.9) Sec. INR 2.82 H (0.87-1.13) CBC 10/20/20 Range/Units 08:43 WBC 13.1 H (4.5-11.0) K/mm3 RBC 3.42 L (3.65-5.03) M/mm3 Hgb 8.3 L (11.8-15.2) gm/dl Hct 25.3 L (35.5-45.6) % Plt Count 35 L (140-440) K/mm3 Comprehensive Metabolic Panel 10/19/20 10/20/20 Range/Units 20:19 08:43 Sodium 119 L* (137-145) mmol/L Potassium 3.9 (3.6-5.0) mmol/L Chloride 90.7 L (98-107) mmol/L Carbon Dioxide 20 L (22-30) mmol/L BUN 35 H (9-20) mg/dL Creatinine 3.3 H (0.8-1.3) mg/dL Glucose 59 L 57 L (75-100) mg/dL Calcium 7.7 L (8.4-10.2) mg/dL AST 27 (5-40) units/L ALT 27 (7-56) units/L Alkaline Phosphatase 152 H (35-129) units/L Total Protein 4.5 L (6.3-8.2) g/dL Albumin 1.6 L (3.9-5) g/dL - Imaging and Cardiology EKG: report reviewed, image reviewed Echo: report reviewed - Telemetry EKG Rhythm: Sinus Rhythm - EKG Sinus rhythms and dysrhythmias: sinus rhythm - Allied health notes Allied health notes reviewed: nursing
--- NOTE | 2020-10-20 16:00 | Progress Note ---
Assessment and Plan Acute hypoxemic respiratory failure Bilateral pneumonia Bilateral pleural effusions Bilateral pulmonary edema Acute kidney injury Acute encephalopathy Severe protein calorie malnutrition Oropharyngeal dysphagia Anemia that is microcytic Oropharyngeal dysphagia Hyponatremia Thrombocytopenia Cardiomyopathy EF 20-25% - no anticoagulation re: thrombocytopenia / anemia - wean vasopressors for MAP > 65 mmHg - VAP bundle addressed ,aspiration precautions (HOB > 40 degrees) - sedation target RASS -2 to -3 - Daily SAT and SBTs as tolerated. For SAT, SBT today -Continue stress dose hydrocortisone 100mg q8hour (D2/5) - continue glycemic control with SSI for target BG 140-180 mg while critically ill; avoid hypoglycemia - continue lung protective strategies - bronchodilators with pulmonary hygiene per RT - complete ABs per ID recommendations - avoid nephrotoxins, renally dose all medications On Furosemide infusion, may ultimately need [employer] for UF - prn analgesia per pain score - Maintenance of sleep-wake cycle, avoid delirium - supportive transfusions for serum Hb < 7.0g/dl - Stress ulcer prophylaxis - PT/OT/ROM exercises - continue mobility protocols for pressure ulcer prophylaxis - Monitor hemodynamics closely - continue other care per attending / other consultants -Discussed with primary service COVID SPECIFIC INTERVENTIONS - COVID-19 test negative CONDITION: CRITICAL PROGNOSIS: GUARDED CODE STATUS: FULL CODE The high probability of a clinically significant, sudden or life-threatening deterioration of the [respiratory, cardiovascular, & neurologic] system(s) required my full and direct attention, intervention and personal management. The aggregate critical care time was [33] minutes without overlap. Time includes spent on; [x] Data Review and interpretation [x] Patient assessment and monitoring of vital signs [x] Documentation [x] Medication orders and management Subjective Date of service: 10/20/20 Principal diagnosis: Ac hypoxemic resp failure; Pneumonia; BETSY; Ac. encephalopathy Interval history: Patient is seen today for: Acute hypoxemic respiratory failure; Pneumonia; Pleural effusions; BETSY; Acute encephalopathy; Severe protein calorie malnutritio n Seen and examined at bedside; 24hour events reviewed; nursing and respiratory care staff consulted; no adverse overnight events reported to me; resting in bed; remains on MVS. Off Neosynephrine, weaning down Levophed, on fixed dose Vasopressin. Remains on fixed dose Dobutamine. Currently on hypertonic saline for hyponatremia. Bicarb tablets discontinued. No fevers, no vomiting, tolerating tube feeding Objective Vital Signs - 12hr 09/11/3010/20/20 10/20/20 04:00 04:01 04:11 Temperature Pulse Rate 86 86 83 Pulse Rate [ 86 From Monitor] Respiratory 24 22 Rate Blood Pressure 95/55 O2 Sat by Pulse 100 99 99 Oximetry 10/20/20 10/20/20 10/20/20 04:15 04:28 04:30 Temperature 96.6 F L Pulse Rate 83 Pulse Rate [ From Monitor] Respiratory 30 H Rate Blood Pressure 125/74 152/73 O2 Sat by Pulse 99 100 Oximetry 10/20/20 10/20/20 10/20/20 04:45 05:00 05:15 Temperature Pulse Rate 79 76 67 Pulse Rate [ From Monitor] Respiratory 30 H 30 H 30 H Rate Blood Pressure 157/78 161/76 166/73 O2 Sat by Pulse 100 100 100 Oximetry 10/20/20 10/20/20 10/20/20 05:30 05:45 06:00 Temperature Pulse Rate 84 82 97 H Pulse Rate [ From Monitor] Respiratory 28 H 30 H 30 H Rate Blood Pressure 170/80 166/73 144/69 O2 Sat by Pulse 100 100 100 Oximetry 10/20/20 10/20/20 10/20/20 06:15 06:31 06:45 Temperature Pulse Rate 78 93 H 94 H Pulse Rate [ From Monitor] Respiratory 30 H 30 H 30 H Rate Blood Pressure 130/69 165/85 165/85 O2 Sat by Pulse 100 100 99 Oximetry 10/20/20 10/20/20 10/20/20 07:01 07:03 07:15 Temperature 96.9 F L Pulse Rate 90 80 Pulse Rate [ From Monitor] Respiratory 30 H 30 H Rate Blood Pressure 128/70 118/73 O2 Sat by Pulse 99 99 Oximetry 10/20/20 10/20/20 10/20/20 07:31 07:45 08:00 Temperature Pulse Rate 86 81 85 Pulse Rate [ From Monitor] Respiratory 30 H 30 H 30 H Rate Blood Pressure 156/87 148/82 137/82 O2 Sat by Pulse 100 100 100 Oximetry 10/20/20 10/20/20 10/20/20 08:15 08:30 08:45 Temperature Pulse Rate 92 H 87 80 Pulse Rate [ From Monitor] Respiratory 30 H 22 30 H Rate Blood Pressure 111/67 106/64 110/67 O2 Sat by Pulse 100 99 98 Oximetry 10/20/20 10/20/2010/20/21 09:01 09:15 09:31 Temperature Pulse Rate 81 97 H 84 Pulse Rate [ From Monitor] Respiratory 30 H 30 H 30 H Rate Blood Pressure 114/78 116/75 148/88 O2 Sat by Pulse 99 98 100 Oximetry 10/20/20 10/20/20 10/20/20 09:45 10:00 10:15 Temperature Pulse Rate 82 80 91 H Pulse Rate [ From Monitor] Respiratory 30 H 30 H 32 H Rate Blood Pressure 156/84 147/82 142/75 O2 Sat by Pulse 99 99 99 Oximetry 10/20/20 10/20/20 10/20/20 10:30 10:45 11:00 Temperature Pulse Rate 85 84 80 Pulse Rate [ From Monitor] Respiratory 30 H 30 H 30 H Rate Blood Pressure 133/81 146/77 140/75 O2 Sat by Pulse 99 99 99 Oximetry 10/20/20 10/20/20 10/20/20 11:15 11:30 11:45 Temperature Pulse Rate 76 86 79 Pulse Rate [ From Monitor] Respiratory 30 H 30 H 30 H Rate Blood Pressure 142/78 145/78 141/83 O2 Sat by Pulse 99 99 99 Oximetry 10/20/20 10/20/20 10/20/20 11:49 12:00 12:15 Temperature 97.8 F Pulse Rate 84 80 Pulse Rate [ 86 From Monitor] Respiratory 30 H 30 H Rate Blood Pressure 144/71 133/71 O2 Sat by Pulse 98 97 Oximetry 10/20/20 10/20/20 10/20/20 12:21 12:31 12:45 Temperature Pulse Rate 75 76 78 Pulse Rate [ From Monitor] Respiratory 30 H 30 H Rate Blood Pressure 133/71 129/74 122/74 O2 Sat by Pulse 97 98 98 Oximetry 10/20/20 10/20/20 10/20/20 13:00 13:15 13:30 Temperature Pulse Rate 77 80 77 Pulse Rate [ From Monitor] Respiratory 30 H 30 H 30 H Rate Blood Pressure 126/75 133/77 126/79 O2 Sat by Pulse 98 98 98 Oximetry 10/20/20 10/20/20 10/20/20 13:45 14:00 14:15 Temperature Pulse Rate 77 68 77 Pulse Rate [ From Monitor] Respiratory 30 H 30 H 30 H Rate Blood Pressure 133/75 126/70 136/76 O2 Sat by Pulse 98 99 99 Oximetry 10/20/20 10/20/20 10/20/20 14:30 14:45 15:00 Temperature Pulse Rate 82 90 83 Pulse Rate [ From Monitor] Respiratory 30 H 30 H 30 H Rate Blood Pressure 144/77 126/78 126/74 O2 Sat by Pulse 84 99 100 Oximetry 10/20/20 10/20/20 10/20/20 15:08 15:15 15:31 Temperature Pulse Rate 86 93 H 96 H Pulse Rate [ From Monitor] Respiratory 30 H 27 H Rate Blood Pressure 126/78 126/74 126/74 O2 Sat by Pulse 99 100 98 Oximetry 10/20/20 15:45 Temperature Pulse Rate 87 Pulse Rate [ From Monitor] Respiratory 22 Rate Blood Pressure 126/74 O2 Sat by Pulse Oximetry Constitutional: appears uncomfortable, other (elderly and chronically ill looking male with mildly increased respiratory effort at rest on MVS) Eyes: non-icteric ENT: oropharynx dry, other (ETT 7.5 at 26 cm TAD) Neck: supple, no lymphadenopathy, no JVD Effort: mildly labored Ascultation: Bilateral: diminished breath sounds, rhonchi Percussion: Bilateral: not dull Cardiovascular: irregular rhythm (irregularly irregular), other (S1,S2) Gastrointestinal: normoactive bowel sounds Integumentary: normal Extremities: no cyanosis, pulses normal, no ischemia or petechiae, edema (1+) Neurologic: pupils equal and round, unable to assess Psychiatric: other (unable to assess re: AMS) CBC and BMP: 10/24/20 05:27 10/24/20 05:27 ABG, PT/INR, D-dimer: ABG ABG pH 7.234 (7.320-7.450) L 10/19/20 04:00 POC ABG pCO2 45.5 mmHg (32.0-48.0) 10/19/20 04:00 POC ABG pO2 53.9 mmHg (83-108) L 10/19/20 04:00 POC ABG HCO3 18.8 10/19/20 04:00 ABG O2 Saturation 87.6 (0-100) 10/19/20 04:00 PT/INR, D-dimer PT 30.1 Sec. (12.2-14.9) H 10/20/20 08:43 INR 2.82 (0.87-1.13) H 10/20/20 08:43 Abnormal lab findings: Abnormal Labs 10/02/20 10/02/20 10/02/20 23:17 23:17 23:17 WBC RBC 3.31 L Hgb 6.7 L Hct 21.8 L MCV 66 L MCH 20 L MCHC 31 L RDW 31.7 H Plt Count Weber % (Auto) Weber # (Auto) Seg Neutrophils % Seg Neuts % (Manual) 79.0 H Lymphocytes % (Manual) 11.0 L Monocytes % (Manual) 10.0 H Basophils % (Manual) Nucleated RBC % Seg Neutrophils # Seg Neutrophils # Man Lymphocytes # (Manual) 0.9 L Monocytes # (Manual) Basophils # (Manual) PT 20.8 H INR 1.74 H APTT 57.6 H ABG pH POC ABG pCO2 POC ABG pO2 ABG Hemoglobin ABG Oxyhemoglobin ABG Sodium ABG Potassium ABG Chloride ABG Glucose Sodium Potassium Chloride Carbon Dioxide BUN Creatinine Glucose 42 L POC Glucose Lactic Acid Calcium Magnesium Iron Total Bilirubin Direct Bilirubin AST ALT Alkaline Phosphatase Ammonia CK-MB (CK-2) 7.5 H CK-MB (CK-2) Rel Index 8.5 H Total Protein Albumin 2.9 L Arterial Blood Glucose Arterial Blood Ionized Calcium Urine Creatinine Urine Total Protein Salicylates Acetaminophen Crossmatch 10/02/20 10/02/20 10/02/20 23:17 23:17 23:17 WBC RBC Hgb Hct MCV MCH MCHC RDW Plt Count Weber % (Auto) Weber # (Auto) Seg Neutrophils % Seg Neuts % (Manual) Lymphocytes % (Manual) Monocytes % (Manual) Basophils % (Manual) Nucleated RBC % Seg Neutrophils # Seg Neutrophils # Man Lymphocytes # (Manual) Monocytes # (Manual) Basophils # (Manual) PT INR APTT ABG pH POC ABG pCO2 POC ABG pO2 ABG Hemoglobin ABG Oxyhemoglobin ABG Sodium ABG Potassium ABG Chloride ABG Glucose Sodium Potassium Chloride Carbon Dioxide BUN Creatinine Glucose POC Glucose Lactic Acid 2.20 H* Calcium Magnesium Iron Total Bilirubin Direct Bilirubin AST ALT Alkaline Phosphatase Ammonia 22.0 L CK-MB (CK-2) CK-MB (CK-2) Rel Index Total Protein Albumin Arterial Blood Glucose Arterial Blood Ionized Calcium Urine Creatinine Urine Total Protein Salicylates < 0.3 L Acetaminophen Crossmatch 10/02/20 10/03/20 10/03/20 23:17 05:57 05:57 WBC RBC 2.66 L Hgb 5.3 L* Hct 17.8 L* MCV 67 L MCH 20 L MCHC 30 L RDW 32.1 H Plt Count Weber % (Auto) Weber # (Auto) Seg Neutrophils % Seg Neuts % (Manual) Lymphocytes % (Manual) 2.0 L Monocytes % (Manual) Basophils % (Manual) Nucleated RBC % 1.0 H Seg Neutrophils # Seg Neutrophils # Man 8.6 H Lymphocytes # (Manual) 0.2 L Monocytes # (Manual) Basophils # (Manual) PT INR APTT ABG pH POC ABG pCO2 POC ABG pO2 ABG Hemoglobin ABG Oxyhemoglobin ABG Sodium ABG Potassium ABG Chloride ABG Glucose Sodium Potassium Chloride Carbon Dioxide BUN Creatinine Glucose POC Glucose Lactic Acid Calcium Magnesium Iron Total Bilirubin Direct Bilirubin AST ALT Alkaline Phosphatase Ammonia CK-MB (CK-2) CK-MB (CK-2) Rel Index Total Protein Albumin Arterial Blood Glucose Arterial Blood Ionized Calcium Urine Creatinine Urine Total Protein Salicylates Acetaminophen 5.0 L Crossmatch See Detail 10/03/20 10/03/20 10/03/20 05:57 05:57 06:00 WBC RBC Hgb Hct MCV MCH MCHC RDW Plt Count Weber % (Auto) Weber # (Auto) Seg Neutrophils % Seg Neuts % (Manual) Lymphocytes % (Manual) Monocytes % (Manual) Basophils % (Manual) Nucleated RBC % Seg Neutrophils # Seg Neutrophils # Man Lymphocytes # (Manual) Monocytes # (Manual) Basophils # (Manual) PT INR APTT ABG pH POC ABG pCO2 POC ABG pO2 ABG Hemoglobin ABG Oxyhemoglobin ABG Sodium ABG Potassium ABG Chloride ABG Glucose Sodium Potassium Chloride Carbon Dioxide BUN Creatinine Glucose 52 L POC Glucose 31 L Lactic Acid Calcium Magnesium Iron 42 L Total Bilirubin Direct Bilirubin AST ALT Alkaline Phosphatase Ammonia CK-MB (CK-2) CK-MB (CK-2) Rel Index Total Protein 5.8 L Albumin 3.1 L Arterial Blood Glucose Arterial Blood Ionized Calcium Urine Creatinine Urine Total Protein Salicylates Acetaminophen Crossmatch 10/03/20 10/03/20 10/03/20 07:34 09:43 10:57 WBC RBC Hgb Hct MCV MCH MCHC RDW Plt Count Weber % (Auto) Weber # (Auto) Seg Neutrophils % Seg Neuts % (Manual) Lymphocytes % (Manual) Monocytes % (Manual) Basophils % (Manual) Nucleated RBC % Seg Neutrophils # Seg Neutrophils # Man Lymphocytes # (Manual) Monocytes # (Manual) Basophils # (Manual) PT INR APTT ABG pH POC ABG pCO2 POC ABG pO2 ABG Hemoglobin ABG Oxyhemoglobin ABG Sodium ABG Potassium ABG Chloride ABG Glucose Sodium Potassium Chloride Carbon Dioxide BUN Creatinine Glucose POC Glucose 59 L 41 L 31 L Lactic Acid Calcium Magnesium Iron Total Bilirubin Direct Bilirubin AST ALT Alkaline Phosphatase Ammonia CK-MB (CK-2) CK-MB (CK-2) Rel Index Total Protein Albumin Arterial Blood Glucose Arterial Blood Ionized Calcium Urine Creatinine Urine Total Protein Salicylates Acetaminophen Crossmatch 10/03/20 10/03/20 10/03/20 11:21 12:00 12:14 WBC RBC Hgb Hct MCV MCH MCHC RDW Plt Count Weber % (Auto) Weber # (Auto) Seg Neutrophils % Seg Neuts % (Manual) Lymphocytes % (Manual) Monocytes % (Manual) Basophils % (Manual) Nucleated RBC % Seg Neutrophils # Seg Neutrophils # Man Lymphocytes # (Manual) Monocytes # (Manual) Basophils # (Manual) PT INR APTT ABG pH POC ABG pCO2 POC ABG pO2 ABG Hemoglobin ABG Oxyhemoglobin ABG Sodium ABG Potassium ABG Chloride ABG Glucose Sodium Potassium Chloride Carbon Dioxide BUN Creatinine Glucose POC Glucose 62 L 26 L 140 H Lactic Acid Calcium Magnesium Iron Total Bilirubin Direct Bilirubin AST ALT Alkaline Phosphatase Ammonia CK-MB (CK-2) CK-MB (CK-2) Rel Index Total Protein Albumin Arterial Blood Glucose Arterial Blood Ionized Calcium Urine Creatinine Urine Total Protein Salicylates Acetaminophen Crossmatch 10/03/20 10/03/20 10/03/20 13:33 14:19 14:59 WBC RBC Hgb Hct MCV MCH MCHC RDW Plt Count Weber % (Auto) Weber # (Auto) Seg Neutrophils % Seg Neuts % (Manual) Lymphocytes % (Manual) Monocytes % (Manual) Basophils % (Manual) Nucleated RBC % Seg Neutrophils # Seg Neutrophils # Man Lymphocytes # (Manual) Monocytes # (Manual) Basophils # (Manual) PT INR APTT ABG pH POC ABG pCO2 POC ABG pO2 ABG Hemoglobin ABG Oxyhemoglobin ABG Sodium ABG Potassium ABG Chloride ABG Glucose Sodium Potassium Chloride Carbon Dioxide BUN Creatinine Glucose POC Glucose 24 L 59 L 40 L Lactic Acid Calcium Magnesium Iron Total Bilirubin Direct Bilirubin AST ALT Alkaline Phosphatase Ammonia CK-MB (CK-2) CK-MB (CK-2) Rel Index Total Protein Albumin Arterial Blood Glucose Arterial Blood Ionized Calcium Urine Creatinine Urine Total Protein Salicylates Acetaminophen Crossmatch 10/03/20 10/03/20 10/03/20 15:26 15:57 16:35 WBC RBC Hgb Hct MCV MCH MCHC RDW Plt Count Weber % (Auto) Weber # (Auto) Seg Neutrophils % Seg Neuts % (Manual) Lymphocytes % (Manual) Monocytes % (Manual) Basophils % (Manual) Nucleated RBC % Seg Neutrophils # Seg Neutrophils # Man Lymphocytes # (Manual) Monocytes # (Manual) Basophils # (Manual) PT INR APTT ABG pH POC ABG pCO2 POC ABG pO2 ABG Hemoglobin ABG Oxyhemoglobin ABG Sodium ABG Potassium ABG Chloride ABG Glucose Sodium Potassium Chloride Carbon Dioxide BUN Creatinine Glucose POC Glucose 54 L 45 L 42 L Lactic Acid Calcium Magnesium Iron Total Bilirubin Direct Bilirubin AST ALT Alkaline Phosphatase Ammonia CK-MB (CK-2) CK-MB (CK-2) Rel Index Total Protein Albumin Arterial Blood Glucose Arterial Blood Ionized Calcium Urine Creatinine Urine Total Protein Salicylates Acetaminophen Crossmatch 10/03/20 10/03/20 10/03/20 17:16 18:37 19:56 WBC RBC Hgb Hct MCV MCH MCHC RDW Plt Count Weber % (Auto) Weber # (Auto) Seg Neutrophils % Seg Neuts % (Manual) Lymphocytes % (Manual) Monocytes % (Manual) Basophils % (Manual) Nucleated RBC % Seg Neutrophils # Seg Neutrophils # Man Lymphocytes # (Manual) Monocytes # (Manual) Basophils # (Manual) PT INR APTT ABG pH POC ABG pCO2 POC ABG pO2 ABG Hemoglobin ABG Oxyhemoglobin ABG Sodium ABG Potassium ABG Chloride ABG Glucose Sodium Potassium Chloride Carbon Dioxide BUN Creatinine Glucose POC Glucose 41 L 46 L 57 L Lactic Acid Calcium Magnesium Iron Total Bilirubin Direct Bilirubin AST ALT Alkaline Phosphatase Ammonia CK-MB (CK-2) CK-MB (CK-2) Rel Index Total Protein Albumin Arterial Blood Glucose Arterial Blood Ionized Calcium Urine Creatinine Urine Total Protein Salicylates Acetaminophen Crossmatch 10/03/20 10/04/20 10/04/20 21:32 01:04 01:11 WBC RBC Hgb 9.6 L D Hct 28.3 L D MCV MCH MCHC RDW Plt Count Weber % (Auto) Weber # (Auto) Seg Neutrophils % Seg Neuts % (Manual) Lymphocytes % (Manual) Monocytes % (Manual) Basophils % (Manual) Nucleated RBC % Seg Neutrophils # Seg Neutrophils # Man Lymphocytes # (Manual) Monocytes # (Manual) Basophils # (Manual) PT INR APTT ABG pH POC ABG pCO2 POC ABG pO2 ABG Hemoglobin ABG Oxyhemoglobin ABG Sodium ABG Potassium ABG Chloride ABG Glucose Sodium Potassium Chloride Carbon Dioxide BUN Creatinine Glucose POC Glucose 65 L 51 L Lactic Acid Calcium Magnesium Iron Total Bilirubin Direct Bilirubin AST ALT Alkaline Phosphatase Ammonia CK-MB (CK-2) CK-MB (CK-2) Rel Index Total Protein Albumin Arterial Blood Glucose Arterial Blood Ionized Calcium Urine Creatinine Urine Total Protein Salicylates Acetaminophen Crossmatch 10/04/20 10/04/20 10/04/20 05:59 05:59 15:10 WBC 13.4 H RBC Hgb 9.9 L 10.1 L Hct 32.0 L 31.8 L MCV 76 L MCH 24 L MCHC 31 L RDW 31.3 H Plt Count Weber % (Auto) Weber # (Auto) Seg Neutrophils % Seg Neuts % (Manual) 86.0 H Lymphocytes % (Manual) 6.0 L Monocytes % (Manual) 8.0 H Basophils % (Manual) Nucleated RBC % 2.0 H Seg Neutrophils # Seg Neutrophils # Man 11.5 H Lymphocytes # (Manual) 0.8 L Monocytes # (Manual) 1.1 H Basophils # (Manual) PT INR APTT ABG pH POC ABG pCO2 POC ABG pO2 ABG Hemoglobin ABG Oxyhemoglobin ABG Sodium ABG Potassium ABG Chloride ABG Glucose Sodium 136 L Potassium 3.5 L Chloride Carbon Dioxide 19 L D BUN Creatinine Glucose POC Glucose Lactic Acid Calcium Magnesium Iron Total Bilirubin Direct Bilirubin AST ALT Alkaline Phosphatase Ammonia CK-MB (CK-2) CK-MB (CK-2) Rel Index Total Protein Albumin 2.6 L Arterial Blood Glucose Arterial Blood Ionized Calcium Urine Creatinine Urine Total Protein Salicylates Acetaminophen Crossmatch 10/04/20 10/04/20 10/05/20 16:28 22:33 04:43 WBC RBC Hgb 10.5 L Hct 32.5 L MCV MCH MCHC RDW Plt Count Weber % (Auto) Weber # (Auto) Seg Neutrophils % Seg Neuts % (Manual) Lymphocytes % (Manual) Monocytes % (Manual) Basophils % (Manual) Nucleated RBC % Seg Neutrophils # Seg Neutrophils # Man Lymphocytes # (Manual) Monocytes # (Manual) Basophils # (Manual) PT INR APTT ABG pH POC ABG pCO2 POC ABG pO2 ABG Hemoglobin ABG Oxyhemoglobin ABG Sodium ABG Potassium ABG Chloride ABG Glucose Sodium Potassium Chloride Carbon Dioxide BUN Creatinine Glucose POC Glucose 66 L 113 H Lactic Acid Calcium Magnesium Iron Total Bilirubin Direct Bilirubin AST ALT Alkaline Phosphatase Ammonia CK-MB (CK-2) CK-MB (CK-2) Rel Index Total Protein Albumin Arterial Blood Glucose Arterial Blood Ionized Calcium Urine Creatinine Urine Total Protein Salicylates Acetaminophen Crossmatch 10/05/20 10/05/20 10/05/20 05:00 09:42 11:57 WBC RBC Hgb 9.8 L Hct 30.5 L MCV 74 L MCH 24 L MCHC RDW 31.6 H Plt Count Weber % (Auto) Weber # (Auto) Seg Neutrophils % Seg Neuts % (Manual) Lymphocytes % (Manual) Monocytes % (Manual) Basophils % (Manual) Nucleated RBC % Seg Neutrophils # Seg Neutrophils # Man Lymphocytes # (Manual) Monocytes # (Manual) Basophils # (Manual) PT INR APTT ABG pH POC ABG pCO2 POC ABG pO2 ABG Hemoglobin ABG Oxyhemoglobin ABG Sodium ABG Potassium ABG Chloride ABG Glucose Sodium 132 L Potassium 3.5 L Chloride Carbon Dioxide 19 L BUN Creatinine 0.7 L Glucose POC Glucose 129 H Lactic Acid Calcium Magnesium Iron Total Bilirubin Direct Bilirubin AST ALT Alkaline Phosphatase Ammonia CK-MB (CK-2) CK-MB (CK-2) Rel Index Total Protein Albumin Arterial Blood Glucose Arterial Blood Ionized Calcium Urine Creatinine Urine Total Protein Salicylates Acetaminophen Crossmatch 10/05/20 10/05/20 10/06/20 16:47 21:51 05:07 WBC RBC Hgb 9.4 L Hct 30.1 L MCV 76 L MCH 24 L MCHC 31 L RDW 31.1 H Plt Count Weber % (Auto) Weber # (Auto) Seg Neutrophils % Seg Neuts % (Manual) Lymphocytes % (Manual) Monocytes % (Manual) Basophils % (Manual) Nucleated RBC % Seg Neutrophils # Seg Neutrophils # Man Lymphocytes # (Manual) Monocytes # (Manual) Basophils # (Manual) PT INR APTT ABG pH POC ABG pCO2 POC ABG pO2 ABG Hemoglobin ABG Oxyhemoglobin ABG Sodium ABG Potassium ABG Chloride ABG Glucose Sodium Potassium Chloride Carbon Dioxide BUN Creatinine Glucose POC Glucose 132 H 115 H Lactic Acid Calcium Magnesium Iron Total Bilirubin Direct Bilirubin AST ALT Alkaline Phosphatase Ammonia CK-MB (CK-2) CK-MB (CK-2) Rel Index Total Protein Albumin Arterial Blood Glucose Arterial Blood Ionized Calcium Urine Creatinine Urine Total Protein Salicylates Acetaminophen Crossmatch 10/06/20 10/06/20 10/06/20 05:07 15:37 21:01 WBC RBC Hgb Hct MCV MCH MCHC RDW Plt Count Weber % (Auto) Weber # (Auto) Seg Neutrophils % Seg Neuts % (Manual) Lymphocytes % (Manual) Monocytes % (Manual) Basophils % (Manual) Nucleated RBC % Seg Neutrophils # Seg Neutrophils # Man Lymphocytes # (Manual) Monocytes # (Manual) Basophils # (Manual) PT INR APTT ABG pH POC ABG pCO2 POC ABG pO2 ABG Hemoglobin ABG Oxyhemoglobin ABG Sodium ABG Potassium ABG Chloride ABG Glucose Sodium 133 L Potassium 3.5 L Chloride Carbon Dioxide 21 L BUN Creatinine 0.6 L Glucose 105 H POC Glucose 136 H 108 H Lactic Acid Calcium Magnesium Iron Total Bilirubin Direct Bilirubin AST ALT Alkaline Phosphatase Ammonia CK-MB (CK-2) CK-MB (CK-2) Rel Index Total Protein Albumin Arterial Blood Glucose Arterial Blood Ionized Calcium Urine Creatinine Urine Total Protein Salicylates Acetaminophen Crossmatch 10/07/20 10/07/20 10/07/20 04:52 04:52 06:07 WBC RBC Hgb 9.6 L Hct 29.4 L MCV 73 L MCH 24 L MCHC RDW 32.2 H Plt Count Weber % (Auto) Weber # (Auto) Seg Neutrophils % Seg Neuts % (Manual) Lymphocytes % (Manual) Monocytes % (Manual) Basophils % (Manual) Nucleated RBC % Seg Neutrophils # Seg Neutrophils # Man Lymphocytes # (Manual) Monocytes # (Manual) Basophils # (Manual) PT INR APTT ABG pH POC ABG pCO2 POC ABG pO2 ABG Hemoglobin ABG Oxyhemoglobin ABG Sodium ABG Potassium ABG Chloride ABG Glucose Sodium 128 L Potassium Chloride Carbon Dioxide 20 L BUN Creatinine 0.7 L Glucose POC Glucose 110 H Lactic Acid Calcium Magnesium Iron Total Bilirubin Direct Bilirubin AST ALT Alkaline Phosphatase Ammonia CK-MB (CK-2) CK-MB (CK-2) Rel Index Total Protein Albumin Arterial Blood Glucose Arterial Blood Ionized Calcium Urine Creatinine Urine Total Protein Salicylates Acetaminophen Crossmatch 10/07/20 10/07/20 10/07/20 17:09 18:53 20:35 WBC RBC Hgb Hct MCV MCH MCHC RDW Plt Count Weber % (Auto) Weber # (Auto) Seg Neutrophils % Seg Neuts % (Manual) Lymphocytes % (Manual) Monocytes % (Manual) Basophils % (Manual) Nucleated RBC % Seg Neutrophils # Seg Neutrophils # Man Lymphocytes # (Manual) Monocytes # (Manual) Basophils # (Manual) PT INR APTT ABG pH POC ABG pCO2 POC ABG pO2 ABG Hemoglobin ABG Oxyhemoglobin ABG Sodium ABG Potassium ABG Chloride ABG Glucose Sodium Potassium Chloride Carbon Dioxide BUN Creatinine Glucose POC Glucose 67 L 66 L 62 L Lactic Acid Calcium Magnesium Iron Total Bilirubin Direct Bilirubin AST ALT Alkaline Phosphatase Ammonia CK-MB (CK-2) CK-MB (CK-2) Rel Index Total Protein Albumin Arterial Blood Glucose Arterial Blood Ionized Calcium Urine Creatinine Urine Total Protein Salicylates Acetaminophen Crossmatch 10/07/20 10/08/20 10/08/20 21:55 05:00 05:00 WBC RBC Hgb 9.6 L Hct 29.4 L MCV 73 L MCH 24 L MCHC RDW 32.4 H Plt Count Weber % (Auto) Weber # (Auto) Seg Neutrophils % 80.6 H Seg Neuts % (Manual) 88.0 H Lymphocytes % (Manual) 9.0 L Monocytes % (Manual) Basophils % (Manual) Nucleated RBC % 5.0 H Seg Neutrophils # Seg Neutrophils # Man Lymphocytes # (Manual) 0.5 L Monocytes # (Manual) Basophils # (Manual) PT INR APTT ABG pH POC ABG pCO2 POC ABG pO2 ABG Hemoglobin ABG Oxyhemoglobin ABG Sodium ABG Potassium ABG Chloride ABG Glucose Sodium 126 L Potassium Chloride 96.3 L Carbon Dioxide BUN Creatinine 0.7 L Glucose POC Glucose 132 H Lactic Acid Calcium Magnesium Iron Total Bilirubin Direct Bilirubin AST ALT Alkaline Phosphatase Ammonia CK-MB (CK-2) CK-MB (CK-2) Rel Index Total Protein Albumin Arterial Blood Glucose Arterial Blood Ionized Calcium Urine Creatinine Urine Total Protein Salicylates Acetaminophen Crossmatch 10/08/20 10/09/20 10/09/20 22:26 01:36 02:22 WBC RBC Hgb Hct MCV MCH MCHC RDW Plt Count Weber % (Auto) Weber # (Auto) Seg Neutrophils % Seg Neuts % (Manual) Lymphocytes % (Manual) Monocytes % (Manual) Basophils % (Manual) Nucleated RBC % Seg Neutrophils # Seg Neutrophils # Man Lymphocytes # (Manual) Monocytes # (Manual) Basophils # (Manual) PT INR APTT ABG pH POC ABG pCO2 POC ABG pO2 ABG Hemoglobin ABG Oxyhemoglobin ABG Sodium ABG Potassium ABG Chloride ABG Glucose Sodium Potassium Chloride Carbon Dioxide BUN Creatinine Glucose POC Glucose 63 L 62 L 151 H Lactic Acid Calcium Magnesium Iron Total Bilirubin Direct Bilirubin AST ALT Alkaline Phosphatase Ammonia CK-MB (CK-2) CK-MB (CK-2) Rel Index Total Protein Albumin Arterial Blood Glucose Arterial Blood Ionized Calcium Urine Creatinine Urine Total Protein Salicylates Acetaminophen Crossmatch 10/09/20 10/09/20 10/09/20 05:07 05:42 06:32 WBC RBC Hgb 10.3 L Hct 33.8 L MCV 77 L MCH 24 L MCHC 31 L RDW 33.6 H Plt Count 137 L Weber % (Auto) Weber # (Auto) Seg Neutrophils % Seg Neuts % (Manual) 89.0 H Lymphocytes % (Manual) 5.0 L Monocytes % (Manual) Basophils % (Manual) Nucleated RBC % 4.0 H Seg Neutrophils # Seg Neutrophils # Man 9.4 H Lymphocytes # (Manual) 0.5 L Monocytes # (Manual) Basophils # (Manual) PT INR APTT ABG pH POC ABG pCO2 POC ABG pO2 ABG Hemoglobin ABG Oxyhemoglobin ABG Sodium ABG Potassium ABG Chloride ABG Glucose Sodium 126 L Potassium Chloride 97.8 L Carbon Dioxide 20 L BUN Creatinine Glucose 58 L POC Glucose 48 L Lactic Acid Calcium Magnesium Iron Total Bilirubin Direct Bilirubin AST ALT Alkaline Phosphatase Ammonia CK-MB (CK-2) CK-MB (CK-2) Rel Index Total Protein Albumin Arterial Blood Glucose Arterial Blood Ionized Calcium Urine Creatinine Urine Total Protein Salicylates Acetaminophen Crossmatch 10/09/20 10/10/20 10/10/20 06:35 00:21 05:53 WBC RBC Hgb Hct MCV MCH MCHC RDW Plt Count Weber % (Auto) Weber # (Auto) Seg Neutrophils % Seg Neuts % (Manual) Lymphocytes % (Manual) Monocytes % (Manual) Basophils % (Manual) Nucleated RBC % Seg Neutrophils # Seg Neutrophils # Man Lymphocytes # (Manual) Monocytes # (Manual) Basophils # (Manual) PT INR APTT ABG pH POC ABG pCO2 POC ABG pO2 ABG Hemoglobin ABG Oxyhemoglobin ABG Sodium ABG Potassium ABG Chloride ABG Glucose Sodium Potassium Chloride Carbon Dioxide BUN Creatinine Glucose POC Glucose 106 H 153 H 34 L Lactic Acid Calcium Magnesium Iron Total Bilirubin Direct Bilirubin AST ALT Alkaline Phosphatase Ammonia CK-MB (CK-2) CK-MB (CK-2) Rel Index Total Protein Albumin Arterial Blood Glucose Arterial Blood Ionized Calcium Urine Creatinine Urine Total Protein Salicylates Acetaminophen Crossmatch 10/10/20 10/10/20 10/10/20 10:58 10:58 12:39 WBC RBC Hgb 10.3 L Hct 33.9 L MCV 78 L MCH 24 L MCHC 30 L RDW 33.2 H Plt Count 135 L Weber % (Auto) Weber # (Auto) Seg Neutrophils % Seg Neuts % (Manual) 74.0 H Lymphocytes % (Manual) 12.0 L Monocytes % (Manual) 9.0 H Basophils % (Manual) 2.0 H Nucleated RBC % Seg Neutrophils # Seg Neutrophils # Man Lymphocytes # (Manual) 1.0 L Monocytes # (Manual) Basophils # (Manual) 0.2 H PT INR APTT ABG pH POC ABG pCO2 POC ABG pO2 ABG Hemoglobin ABG Oxyhemoglobin ABG Sodium ABG Potassium ABG Chloride ABG Glucose Sodium 127 L Potassium Chloride Carbon Dioxide 20 L BUN 23 H Creatinine Glucose POC Glucose 108 H Lactic Acid Calcium Magnesium Iron Total Bilirubin Direct Bilirubin AST ALT Alkaline Phosphatase Ammonia CK-MB (CK-2) CK-MB (CK-2) Rel Index Total Protein Albumin Arterial Blood Glucose Arterial Blood Ionized Calcium Urine Creatinine Urine Total Protein Salicylates Acetaminophen Crossmatch 10/10/20 10/11/20 10/11/20 16:51 04:56 05:51 WBC RBC Hgb 9.5 L Hct 31.3 L MCV 77 L MCH 23 L MCHC 30 L RDW 33.7 H Plt Count Weber % (Auto) Weber # (Auto) Seg Neutrophils % Seg Neuts % (Manual) 95.0 H Lymphocytes % (Manual) 2.0 L Monocytes % (Manual) Basophils % (Manual) Nucleated RBC % 3.0 H Seg Neutrophils # Seg Neutrophils # Man 8.0 H Lymphocytes # (Manual) 0.2 L Monocytes # (Manual) Basophils # (Manual) PT INR APTT ABG pH POC ABG pCO2 POC ABG pO2 ABG Hemoglobin ABG Oxyhemoglobin ABG Sodium ABG Potassium ABG Chloride ABG Glucose Sodium Potassium Chloride Carbon Dioxide BUN Creatinine Glucose POC Glucose 142 H 124 H Lactic Acid Calcium Magnesium Iron Total Bilirubin Direct Bilirubin AST ALT Alkaline Phosphatase Ammonia CK-MB (CK-2) CK-MB (CK-2) Rel Index Total Protein Albumin Arterial Blood Glucose Arterial Blood Ionized Calcium Urine Creatinine Urine Total Protein Salicylates Acetaminophen Crossmatch 10/11/20 10/11/20 10/12/20 05:51 11:56 04:53 WBC RBC Hgb 9.5 L Hct 30.0 L MCV 75 L MCH 24 L MCHC RDW 32.8 H Plt Count 136 L Weber % (Auto) Weber # (Auto) Seg Neutrophils % Seg Neuts % (Manual) 89.0 H Lymphocytes % (Manual) 5.0 L Monocytes % (Manual) Basophils % (Manual) Nucleated RBC % Seg Neutrophils # Seg Neutrophils # Man Lymphocytes # (Manual) 0.4 L Monocytes # (Manual) Basophils # (Manual) PT INR APTT ABG pH POC ABG pCO2 POC ABG pO2 ABG Hemoglobin ABG Oxyhemoglobin ABG Sodium ABG Potassium ABG Chloride ABG Glucose Sodium 130 L Potassium Chloride Carbon Dioxide 18 L BUN 23 H Creatinine Glucose POC Glucose 126 H Lactic Acid Calcium Magnesium Iron Total Bilirubin Direct Bilirubin AST ALT Alkaline Phosphatase Ammonia CK-MB (CK-2) CK-MB (CK-2) Rel Index Total Protein Albumin Arterial Blood Glucose Arterial Blood Ionized Calcium Urine Creatinine Urine Total Protein Salicylates Acetaminophen Crossmatch 10/12/20 10/12/20 10/12/20 04:53 11:42 23:49 WBC RBC Hgb Hct MCV MCH MCHC RDW Plt Count Weber % (Auto) Weber # (Auto) Seg Neutrophils % Seg Neuts % (Manual) Lymphocytes % (Manual) Monocytes % (Manual) Basophils % (Manual) Nucleated RBC % Seg Neutrophils # Seg Neutrophils # Man Lymphocytes # (Manual) Monocytes # (Manual) Basophils # (Manual) PT INR APTT ABG pH POC ABG pCO2 POC ABG pO2 ABG Hemoglobin ABG Oxyhemoglobin ABG Sodium ABG Potassium ABG Chloride ABG Glucose Sodium 130 L Potassium Chloride Carbon Dioxide 18 L BUN 25 H Creatinine Glucose 74 L POC Glucose 59 L 51 L Lactic Acid Calcium Magnesium Iron Total Bilirubin Direct Bilirubin AST ALT Alkaline Phosphatase Ammonia CK-MB (CK-2) CK-MB (CK-2) Rel Index Total Protein Albumin Arterial Blood Glucose Arterial Blood Ionized Calcium Urine Creatinine Urine Total Protein Salicylates Acetaminophen Crossmatch 10/13/20 10/13/20 10/13/20 03:17 05:24 05:24 WBC RBC Hgb 9.4 L Hct 29.4 L MCV 75 L MCH 24 L MCHC RDW 32.9 H Plt Count 95 L Weber % (Auto) Weber # (Auto) Seg Neutrophils % Seg Neuts % (Manual) 90.0 H Lymphocytes % (Manual) Monocytes % (Manual) Basophils % (Manual) Nucleated RBC % 2.0 H Seg Neutrophils # Seg Neutrophils # Man 9.5 H Lymphocytes # (Manual) 0.0 L Monocytes # (Manual) Basophils # (Manual) PT INR APTT ABG pH POC ABG pCO2 POC ABG pO2 ABG Hemoglobin ABG Oxyhemoglobin ABG Sodium ABG Potassium ABG Chloride ABG Glucose Sodium 132 L Potassium Chloride Carbon Dioxide 17 L BUN 26 H Creatinine 1.6 H Glucose POC Glucose 67 L Lactic Acid Calcium Magnesium Iron Total Bilirubin Direct Bilirubin AST ALT Alkaline Phosphatase Ammonia CK-MB (CK-2) CK-MB (CK-2) Rel Index Total Protein Albumin Arterial Blood Glucose Arterial Blood Ionized Calcium Urine Creatinine Urine Total Protein Salicylates Acetaminophen Crossmatch 10/13/20 10/14/20 10/14/20 11:36 05:04 05:04 WBC 17.4 H RBC Hgb 9.3 L Hct 29.3 L MCV 76 L MCH 24 L MCHC RDW 33.8 H Plt Count 83 L Weber % (Auto) Weber # (Auto) Seg Neutrophils % Seg Neuts % (Manual) 89.0 H Lymphocytes % (Manual) 4.0 L Monocytes % (Manual) Basophils % (Manual) Nucleated RBC % 1.0 H Seg Neutrophils # Seg Neutrophils # Man 15.5 H Lymphocytes # (Manual) 0.7 L Monocytes # (Manual) Basophils # (Manual) PT INR APTT ABG pH POC ABG pCO2 POC ABG pO2 ABG Hemoglobin ABG Oxyhemoglobin ABG Sodium ABG Potassium ABG Chloride ABG Glucose Sodium 132 L Potassium 5.3 H Chloride 108.7 H Carbon Dioxide 15 L BUN 25 H Creatinine 1.5 H Glucose POC Glucose 58 L Lactic Acid Calcium Magnesium Iron Total Bilirubin Direct Bilirubin AST ALT Alkaline Phosphatase Ammonia CK-MB (CK-2) CK-MB (CK-2) Rel Index Total Protein Albumin Arterial Blood Glucose Arterial Blood Ionized Calcium Urine Creatinine Urine Total Protein Salicylates Acetaminophen Crossmatch 10/14/20 10/14/20 10/14/20 05:41 08:19 15:34 WBC RBC Hgb Hct MCV MCH MCHC RDW Plt Count Weber % (Auto) Weber # (Auto) Seg Neutrophils % Seg Neuts % (Manual) Lymphocytes % (Manual) Monocytes % (Manual) Basophils % (Manual) Nucleated RBC % Seg Neutrophils # Seg Neutrophils # Man Lymphocytes # (Manual) Monocytes # (Manual) Basophils # (Manual) PT INR APTT ABG pH POC ABG pCO2 POC ABG pO2 ABG Hemoglobin ABG Oxyhemoglobin ABG Sodium ABG Potassium ABG Chloride ABG Glucose Sodium 134 L Potassium 5.2 H Chloride 111.1 H Carbon Dioxide 16 L BUN 25 H Creatinine 1.5 H Glucose POC Glucose 58 L 120 H Lactic Acid Calcium Magnesium Iron Total Bilirubin Direct Bilirubin AST ALT Alkaline Phosphatase Ammonia CK-MB (CK-2) CK-MB (CK-2) Rel Index Total Protein Albumin Arterial Blood Glucose Arterial Blood Ionized Calcium Urine Creatinine Urine Total Protein Salicylates Acetaminophen Crossmatch 10/14/20 10/15/20 10/15/20 Unknown 05:50 05:50 WBC 14.1 H RBC Hgb 9.4 L Hct 29.9 L MCV 76 L MCH 24 L MCHC 31 L RDW 34.2 H Plt Count 86 L Weber % (Auto) 8.3 H Weber # (Auto) 1.3 H Seg Neutrophils % 86.5 H Seg Neuts % (Manual) Lymphocytes % (Manual) 9.0 L Monocytes % (Manual) Basophils % (Manual) Nucleated RBC % 6.0 H Seg Neutrophils # 13.2 H Seg Neutrophils # Man 9.7 H Lymphocytes # (Manual) Monocytes # (Manual) Basophils # (Manual) PT INR APTT ABG pH POC ABG pCO2 POC ABG pO2 ABG Hemoglobin ABG Oxyhemoglobin ABG Sodium ABG Potassium ABG Chloride ABG Glucose Sodium 134 L Potassium Chloride 109.9 H Carbon Dioxide 18 L BUN 26 H Creatinine 1.5 H Glucose 125 H POC Glucose Lactic Acid Calcium Magnesium Iron Total Bilirubin Direct Bilirubin AST ALT Alkaline Phosphatase Ammonia CK-MB (CK-2) CK-MB (CK-2) Rel Index Total Protein Albumin Arterial Blood Glucose Arterial Blood Ionized Calcium Urine Creatinine 144.2 H Urine Total Protein 97 H Salicylates Acetaminophen Crossmatch 10/15/20 10/15/20 10/15/20 05:55 07:36 07:59 WBC RBC Hgb Hct MCV MCH MCHC RDW Plt Count Weber % (Auto) Weber # (Auto) Seg Neutrophils % Seg Neuts % (Manual) Lymphocytes % (Manual) Monocytes % (Manual) Basophils % (Manual) Nucleated RBC % Seg Neutrophils # Seg Neutrophils # Man Lymphocytes # (Manual) Monocytes # (Manual) Basophils # (Manual) PT INR APTT ABG pH 7.052 L POC ABG pCO2 65.0 H POC ABG pO2 214.1 H ABG Hemoglobin 10.6 L ABG Oxyhemoglobin 98.3 H ABG Sodium 130.6 L ABG Potassium ABG Chloride 110.0 H ABG Glucose 124 H Sodium Potassium Chloride Carbon Dioxide BUN Creatinine Glucose POC Glucose 113 H 114 H Lactic Acid Calcium Magnesium Iron Total Bilirubin Direct Bilirubin AST ALT Alkaline Phosphatase Ammonia CK-MB (CK-2) CK-MB (CK-2) Rel Index Total Protein Albumin Arterial Blood Glucose 124 H Arterial Blood Ionized Calcium Urine Creatinine Urine Total Protein Salicylates Acetaminophen Crossmatch 10/15/20 10/15/20 10/15/20 10:50 11:27 13:56 WBC RBC Hgb Hct MCV MCH MCHC RDW Plt Count Weber % (Auto) Weber # (Auto) Seg Neutrophils % Seg Neuts % (Manual) Lymphocytes % (Manual) Monocytes % (Manual) Basophils % (Manual) Nucleated RBC % Seg Neutrophils # Seg Neutrophils # Man Lymphocytes # (Manual) Monocytes # (Manual) Basophils # (Manual) PT INR APTT ABG pH 7.200 L POC ABG pCO2 POC ABG pO2 123.1 H ABG Hemoglobin ABG Oxyhemoglobin ABG Sodium 131.3 L ABG Potassium 4.6 H ABG Chloride 112.0 H ABG Glucose 42 L Sodium Potassium Chloride Carbon Dioxide BUN Creatinine Glucose POC Glucose 50 L 476 H Lactic Acid Calcium Magnesium Iron Total Bilirubin Direct Bilirubin AST ALT Alkaline Phosphatase Ammonia CK-MB (CK-2) CK-MB (CK-2) Rel Index Total Protein Albumin Arterial Blood Glucose 42 L Arterial Blood Ionized Calcium Urine Creatinine Urine Total Protein Salicylates Acetaminophen Crossmatch 10/15/20 10/15/20 10/16/20 16:46 17:01 00:45 WBC RBC Hgb Hct MCV MCH MCHC RDW Plt Count Weber % (Auto) Weber # (Auto) Seg Neutrophils % Seg Neuts % (Manual) Lymphocytes % (Manual) Monocytes % (Manual) Basophils % (Manual) Nucleated RBC % Seg Neutrophils # Seg Neutrophils # Man Lymphocytes # (Manual) Monocytes # (Manual) Basophils # (Manual) PT INR APTT ABG pH 7.250 L POC ABG pCO2 POC ABG pO2 49.8 L ABG Hemoglobin 9.3 L ABG Oxyhemoglobin 83.0 L ABG Sodium 130.2 L ABG Potassium ABG Chloride 111.0 H ABG Glucose Sodium 135 L Potassium Chloride Carbon Dioxide BUN Creatinine Glucose POC Glucose 67 L Lactic Acid Calcium Magnesium Iron Total Bilirubin Direct Bilirubin AST ALT Alkaline Phosphatase Ammonia CK-MB (CK-2) CK-MB (CK-2) Rel Index Total Protein Albumin Arterial Blood Glucose Arterial Blood Ionized Calcium Urine Creatinine Urine Total Protein Salicylates Acetaminophen Crossmatch 10/16/20 10/16/20 10/16/20 05:36 05:53 05:53 WBC 16.6 H RBC 3.52 L Hgb 8.3 L Hct 26.6 L MCV 75 L MCH 23 L MCHC 31 L RDW 33.7 H Plt Count 63 L Weber % (Auto) Weber # (Auto) Seg Neutrophils % Seg Neuts % (Manual) 93.0 H Lymphocytes % (Manual) Monocytes % (Manual) Basophils % (Manual) Nucleated RBC % 3.0 H Seg Neutrophils # Seg Neutrophils # Man 15.4 H Lymphocytes # (Manual) 0.0 L Monocytes # (Manual) Basophils # (Manual) PT INR APTT ABG pH POC ABG pCO2 POC ABG pO2 ABG Hemoglobin ABG Oxyhemoglobin ABG Sodium ABG Potassium ABG Chloride ABG Glucose Sodium 136 L Potassium Chloride 111.9 H Carbon Dioxide 17 L BUN 29 H Creatinine 2.0 H Glucose 126 H POC Glucose 44 L Lactic Acid Calcium 8.1 L Magnesium Iron Total Bilirubin Direct Bilirubin AST ALT Alkaline Phosphatase Ammonia CK-MB (CK-2) CK-MB (CK-2) Rel Index Total Protein Albumin Arterial Blood Glucose Arterial Blood Ionized Calcium Urine Creatinine Urine Total Protein Salicylates Acetaminophen Crossmatch 10/16/20 10/16/20 10/16/20 05:53 07:26 08:07 WBC RBC Hgb Hct MCV MCH MCHC RDW Plt Count Weber % (Auto) Weber # (Auto) Seg Neutrophils % Seg Neuts % (Manual) Lymphocytes % (Manual) Monocytes % (Manual) Basophils % (Manual) Nucleated RBC % Seg Neutrophils # Seg Neutrophils # Man Lymphocytes # (Manual) Monocytes # (Manual) Basophils # (Manual) PT 24.5 H INR 2.17 H APTT ABG pH POC ABG pCO2 POC ABG pO2 ABG Hemoglobin ABG Oxyhemoglobin ABG Sodium ABG Potassium ABG Chloride ABG Glucose Sodium Potassium Chloride Carbon Dioxide BUN Creatinine Glucose POC Glucose 58 L 51 L Lactic Acid Calcium Magnesium Iron Total Bilirubin Direct Bilirubin AST ALT Alkaline Phosphatase Ammonia CK-MB (CK-2) CK-MB (CK-2) Rel Index Total Protein Albumin Arterial Blood Glucose Arterial Blood Ionized Calcium Urine Creatinine Urine Total Protein Salicylates Acetaminophen Crossmatch 10/16/20 10/16/20 10/16/20 08:52 11:14 11:33 WBC RBC Hgb Hct MCV MCH MCHC RDW Plt Count Weber % (Auto) Weber # (Auto) Seg Neutrophils % Seg Neuts % (Manual) Lymphocytes % (Manual) Monocytes % (Manual) Basophils % (Manual) Nucleated RBC % Seg Neutrophils # Seg Neutrophils # Man Lymphocytes # (Manual) Monocytes # (Manual) Basophils # (Manual) PT INR APTT ABG pH 7.044 L POC ABG pCO2 58.1 H POC ABG pO2 57.7 L ABG Hemoglobin 9.5 L ABG Oxyhemoglobin 81.5 L ABG Sodium 131.7 L ABG Potassium ABG Chloride 112.0 H ABG Glucose 59 L Sodium Potassium Chloride Carbon Dioxide BUN Creatinine Glucose POC Glucose 58 L Lactic Acid Calcium Magnesium Iron Total Bilirubin Direct Bilirubin AST 136 H ALT 72 H Alkaline Phosphatase 240 H Ammonia CK-MB (CK-2) CK-MB (CK-2) Rel Index Total Protein 5.1 L Albumin 2.1 L Arterial Blood Glucose 59 L Arterial Blood Ionized Calcium Urine Creatinine Urine Total Protein Salicylates Acetaminophen Crossmatch 10/16/20 10/16/20 10/16/20 12:32 13:11 13:40 WBC RBC Hgb Hct MCV MCH MCHC RDW Plt Count Weber % (Auto) Weber # (Auto) Seg Neutrophils % Seg Neuts % (Manual) Lymphocytes % (Manual) Monocytes % (Manual) Basophils % (Manual) Nucleated RBC % Seg Neutrophils # Seg Neutrophils # Man Lymphocytes # (Manual) Monocytes # (Manual) Basophils # (Manual) PT INR APTT ABG pH POC ABG pCO2 POC ABG pO2 ABG Hemoglobin ABG Oxyhemoglobin ABG Sodium ABG Potassium ABG Chloride ABG Glucose Sodium Potassium Chloride Carbon Dioxide BUN Creatinine Glucose POC Glucose 27 L 54 L 69 L Lactic Acid Calcium Magnesium Iron Total Bilirubin Direct Bilirubin AST ALT Alkaline Phosphatase Ammonia CK-MB (CK-2) CK-MB (CK-2) Rel Index Total Protein Albumin Arterial Blood Glucose Arterial Blood Ionized Calcium Urine Creatinine Urine Total Protein Salicylates Acetaminophen Crossmatch 10/16/20 10/16/20 10/16/20 15:13 17:15 17:34 WBC RBC Hgb Hct MCV MCH MCHC RDW Plt Count Weber % (Auto) Weber # (Auto) Seg Neutrophils % Seg Neuts % (Manual) Lymphocytes % (Manual) Monocytes % (Manual) Basophils % (Manual) Nucleated RBC % Seg Neutrophils # Seg Neutrophils # Man Lymphocytes # (Manual) Monocytes # (Manual) Basophils # (Manual) PT INR APTT ABG pH POC ABG pCO2 POC ABG pO2 ABG Hemoglobin ABG Oxyhemoglobin ABG Sodium ABG Potassium ABG Chloride ABG Glucose Sodium Potassium Chloride Carbon Dioxide BUN Creatinine Glucose POC Glucose 46 L 54 L 119 H Lactic Acid Calcium Magnesium Iron Total Bilirubin Direct Bilirubin AST ALT Alkaline Phosphatase Ammonia CK-MB (CK-2) CK-MB (CK-2) Rel Index Total Protein Albumin Arterial Blood Glucose Arterial Blood Ionized Calcium Urine Creatinine Urine Total Protein Salicylates Acetaminophen Crossmatch 10/16/20 10/16/20 10/16/20 18:51 19:37 21:00 WBC RBC Hgb Hct MCV MCH MCHC RDW Plt Count Weber % (Auto) Weber # (Auto) Seg Neutrophils % Seg Neuts % (Manual) Lymphocytes % (Manual) Monocytes % (Manual) Basophils % (Manual) Nucleated RBC % Seg Neutrophils # Seg Neutrophils # Man Lymphocytes # (Manual) Monocytes # (Manual) Basophils # (Manual) PT INR APTT ABG pH 7.122 L POC ABG pCO2 49.8 H POC ABG pO2 62.1 L ABG Hemoglobin 9.1 L ABG Oxyhemoglobin 89.6 L ABG Sodium 130.1 L ABG Potassium 3.0 L ABG Chloride 111.0 H ABG Glucose 106 H Sodium Potassium Chloride Carbon Dioxide BUN Creatinine Glucose POC Glucose 64 L 114 H Lactic Acid Calcium Magnesium Iron Total Bilirubin Direct Bilirubin AST ALT Alkaline Phosphatase Ammonia CK-MB (CK-2) CK-MB (CK-2) Rel Index Total Protein Albumin Arterial Blood Glucose 106 H Arterial Blood Ionized Calcium Urine Creatinine Urine Total Protein Salicylates Acetaminophen Crossmatch 10/16/20 10/16/20 10/17/20 22:01 22:58 00:58 WBC RBC Hgb Hct MCV MCH MCHC RDW Plt Count Weber % (Auto) Weber # (Auto) Seg Neutrophils % Seg Neuts % (Manual) Lymphocytes % (Manual) Monocytes % (Manual) Basophils % (Manual) Nucleated RBC % Seg Neutrophils # Seg Neutrophils # Man Lymphocytes # (Manual) Monocytes # (Manual) Basophils # (Manual) PT INR APTT ABG pH POC ABG pCO2 POC ABG pO2 ABG Hemoglobin ABG Oxyhemoglobin ABG Sodium ABG Potassium ABG Chloride ABG Glucose Sodium 133 L Potassium 3.5 L Chloride 107.7 H Carbon Dioxide 15 L BUN 29 H Creatinine 2.6 H Glucose POC Glucose 63 L 292 H Lactic Acid Calcium 7.9 L Magnesium Iron Total Bilirubin Direct Bilirubin AST ALT Alkaline Phosphatase Ammonia CK-MB (CK-2) CK-MB (CK-2) Rel Index Total Protein Albumin Arterial Blood Glucose Arterial Blood Ionized Calcium Urine Creatinine Urine Total Protein Salicylates Acetaminophen Crossmatch 10/17/20 10/17/20 10/17/20 02:04 03:08 03:55 WBC RBC Hgb Hct MCV MCH MCHC RDW Plt Count Weber % (Auto) Weber # (Auto) Seg Neutrophils % Seg Neuts % (Manual) Lymphocytes % (Manual) Monocytes % (Manual) Basophils % (Manual) Nucleated RBC % Seg Neutrophils # Seg Neutrophils # Man Lymphocytes # (Manual) Monocytes # (Manual) Basophils # (Manual) PT INR APTT ABG pH POC ABG pCO2 POC ABG pO2 ABG Hemoglobin ABG Oxyhemoglobin ABG Sodium ABG Potassium ABG Chloride ABG Glucose Sodium Potassium Chloride Carbon Dioxide BUN Creatinine Glucose POC Glucose 200 H 173 H 161 H Lactic Acid Calcium Magnesium Iron Total Bilirubin Direct Bilirubin AST ALT Alkaline Phosphatase Ammonia CK-MB (CK-2) CK-MB (CK-2) Rel Index Total Protein Albumin Arterial Blood Glucose Arterial Blood Ionized Calcium Urine Creatinine Urine Total Protein Salicylates Acetaminophen Crossmatch 10/17/20 10/17/20 10/17/20 04:00 04:49 04:49 WBC 17.7 H RBC 3.21 L Hgb 7.5 L Hct 25.4 L MCV 79 L MCH 24 L MCHC 30 L RDW 34.0 H Plt Count 40 L Weber % (Auto) Weber # (Auto) Seg Neutrophils % Seg Neuts % (Manual) Lymphocytes % (Manual) 3.0 L Monocytes % (Manual) Basophils % (Manual) Nucleated RBC % 3.0 H Seg Neutrophils # Seg Neutrophils # Man 10.6 H Lymphocytes # (Manual) 0.5 L Monocytes # (Manual) 1.1 H Basophils # (Manual) PT INR APTT ABG pH 7.116 L POC ABG pCO2 POC ABG pO2 61.1 L ABG Hemoglobin 8.4 L ABG Oxyhemoglobin 90.2 L ABG Sodium 125.0 L ABG Potassium 3.1 L ABG Chloride ABG Glucose 155 H Sodium 133 L Potassium 3.3 L Chloride Carbon Dioxide 15 L BUN 29 H Creatinine 2.7 H Glucose 138 H POC Glucose Lactic Acid Calcium 7.8 L Magnesium Iron Total Bilirubin Direct Bilirubin AST ALT Alkaline Phosphatase Ammonia CK-MB (CK-2) CK-MB (CK-2) Rel Index Total Protein Albumin Arterial Blood Glucose 155 H Arterial Blood Ionized Calcium Urine Creatinine Urine Total Protein Salicylates Acetaminophen Crossmatch 10/17/20 10/17/20 10/17/20 04:58 06:01 07:50 WBC RBC Hgb Hct MCV MCH MCHC RDW Plt Count Weber % (Auto) Weber # (Auto) Seg Neutrophils % Seg Neuts % (Manual) Lymphocytes % (Manual) Monocytes % (Manual) Basophils % (Manual) Nucleated RBC % Seg Neutrophils # Seg Neutrophils # Man Lymphocytes # (Manual) Monocytes # (Manual) Basophils # (Manual) PT INR APTT ABG pH POC ABG pCO2 POC ABG pO2 ABG Hemoglobin ABG Oxyhemoglobin ABG Sodium ABG Potassium ABG Chloride ABG Glucose Sodium Potassium Chloride Carbon Dioxide BUN Creatinine Glucose POC Glucose 137 H 119 H 106 H Lactic Acid Calcium Magnesium Iron Total Bilirubin Direct Bilirubin AST ALT Alkaline Phosphatase Ammonia CK-MB (CK-2) CK-MB (CK-2) Rel Index Total Protein Albumin Arterial Blood Glucose Arterial Blood Ionized Calcium Urine Creatinine Urine Total Protein Salicylates Acetaminophen Crossmatch 09/07/21 09/07/21 09/07/21 11:50 15:11 18:11 WBC RBC Hgb Hct MCV MCH MCHC RDW Plt Count Weber % (Auto) Weber # (Auto) Seg Neutrophils % Seg Neuts % (Manual) Lymphocytes % (Manual) Monocytes % (Manual) Basophils % (Manual) Nucleated RBC % Seg Neutrophils # Seg Neutrophils # Man Lymphocytes # (Manual) Monocytes # (Manual) Basophils # (Manual) PT INR APTT ABG pH POC ABG pCO2 POC ABG pO2 ABG Hemoglobin ABG Oxyhemoglobin ABG Sodium ABG Potassium ABG Chloride ABG Glucose Sodium Potassium Chloride Carbon Dioxide BUN Creatinine Glucose POC Glucose 111 H 114 H 137 H Lactic Acid Calcium Magnesium Iron Total Bilirubin Direct Bilirubin AST ALT Alkaline Phosphatase Ammonia CK-MB (CK-2) CK-MB (CK-2) Rel Index Total Protein Albumin Arterial Blood Glucose Arterial Blood Ionized Calcium Urine Creatinine Urine Total Protein Salicylates Acetaminophen Crossmatch 10/17/20 10/17/20 10/18/20 19:51 23:32 04:00 WBC RBC Hgb Hct MCV MCH MCHC RDW Plt Count Weber % (Auto) Weber # (Auto) Seg Neutrophils % Seg Neuts % (Manual) Lymphocytes % (Manual) Monocytes % (Manual) Basophils % (Manual) Nucleated RBC % Seg Neutrophils # Seg Neutrophils # Man Lymphocytes # (Manual) Monocytes # (Manual) Basophils # (Manual) PT INR APTT ABG pH 7.276 L POC ABG pCO2 POC ABG pO2 77.7 L ABG Hemoglobin 7.2 L ABG Oxyhemoglobin ABG Sodium 122.6 L ABG Potassium ABG Chloride ABG Glucose 113 H Sodium Potassium Chloride Carbon Dioxide BUN Creatinine Glucose POC Glucose 130 H 114 H Lactic Acid Calcium Magnesium Iron Total Bilirubin Direct Bilirubin AST ALT Alkaline Phosphatase Ammonia CK-MB (CK-2) CK-MB (CK-2) Rel Index Total Protein Albumin Arterial Blood Glucose 113 H Arterial Blood Ionized Calcium Urine Creatinine Urine Total Protein Salicylates Acetaminophen Crossmatch 10/18/20 10/18/20 10/18/20 04:06 04:06 04:13 WBC RBC Hgb Hct MCV MCH MCHC RDW Plt Count Weber % (Auto) Weber # (Auto) Seg Neutrophils % Seg Neuts % (Manual) Lymphocytes % (Manual) Monocytes % (Manual) Basophils % (Manual) Nucleated RBC % Seg Neutrophils # Seg Neutrophils # Man Lymphocytes # (Manual) Monocytes # (Manual) Basophils # (Manual) PT 23.5 H INR 2.05 H APTT ABG pH POC ABG pCO2 POC ABG pO2 ABG Hemoglobin ABG Oxyhemoglobin ABG Sodium ABG Potassium ABG Chloride ABG Glucose Sodium 123 L D Potassium Chloride 97.9 L Carbon Dioxide 16 L BUN 31 H Creatinine 3.1 H Glucose 113 H POC Glucose 108 H Lactic Acid Calcium 7.4 L Magnesium Iron Total Bilirubin Direct Bilirubin AST ALT Alkaline Phosphatase Ammonia CK-MB (CK-2) CK-MB (CK-2) Rel Index Total Protein Albumin Arterial Blood Glucose Arterial Blood Ionized Calcium Urine Creatinine Urine Total Protein Salicylates Acetaminophen Crossmatch 10/18/20 10/18/20 10/18/20 10:03 14:12 19:08 WBC RBC Hgb Hct MCV MCH MCHC RDW Plt Count Weber % (Auto) Weber # (Auto) Seg Neutrophils % Seg Neuts % (Manual) Lymphocytes % (Manual) Monocytes % (Manual) Basophils % (Manual) Nucleated RBC % Seg Neutrophils # Seg Neutrophils # Man Lymphocytes # (Manual) Monocytes # (Manual) Basophils # (Manual) PT INR APTT ABG pH POC ABG pCO2 POC ABG pO2 ABG Hemoglobin ABG Oxyhemoglobin ABG Sodium ABG Potassium ABG Chloride ABG Glucose Sodium Potassium Chloride Carbon Dioxide BUN Creatinine Glucose POC Glucose 139 H 112 H Lactic Acid Calcium Magnesium Iron Total Bilirubin Direct Bilirubin AST ALT Alkaline Phosphatase Ammonia CK-MB (CK-2) CK-MB (CK-2) Rel Index Total Protein Albumin Arterial Blood Glucose Arterial Blood Ionized Calcium Urine Creatinine Urine Total Protein Salicylates Acetaminophen Crossmatch See Detail 10/18/20 10/19/20 10/19/20 Unknown 02:02 04:00 WBC 19.8 H RBC 2.95 L Hgb 6.9 L Hct 22.2 L MCV 75 L MCH 24 L MCHC 31 L RDW 33.6 H Plt Count 28 L Weber % (Auto) Weber # (Auto) Seg Neutrophils % Seg Neuts % (Manual) Lymphocytes % (Manual) Monocytes % (Manual) Basophils % (Manual) Nucleated RBC % Seg Neutrophils # Seg Neutrophils # Man Lymphocytes # (Manual) Monocytes # (Manual) Basophils # (Manual) PT INR APTT ABG pH 7.234 L POC ABG pCO2 POC ABG pO2 53.9 L ABG Hemoglobin 8.9 L ABG Oxyhemoglobin 86.6 L ABG Sodium 118.1 L ABG Potassium ABG Chloride 94.0 L ABG Glucose 61 L Sodium Potassium Chloride Carbon Dioxide BUN Creatinine Glucose POC Glucose 64 L Lactic Acid Calcium Magnesium Iron Total Bilirubin Direct Bilirubin AST ALT Alkaline Phosphatase Ammonia CK-MB (CK-2) CK-MB (CK-2) Rel Index Total Protein Albumin Arterial Blood Glucose 61 L Arterial Blood Ionized Calcium 4.5 L Urine Creatinine Urine Total Protein Salicylates Acetaminophen Crossmatch 10/19/20 10/19/20 10/19/20 04:51 04:51 05:43 WBC 18.2 H RBC 3.26 L Hgb 7.9 L Hct 24.6 L MCV 76 L MCH 24 L MCHC RDW 30.7 H Plt Count 41 L Weber % (Auto) Weber # (Auto) Seg Neutrophils % Seg Neuts % (Manual) Lymphocytes % (Manual) Monocytes % (Manual) Basophils % (Manual) Nucleated RBC % Seg Neutrophils # Seg Neutrophils # Man Lymphocytes # (Manual) Monocytes # (Manual) Basophils # (Manual) PT INR APTT ABG pH POC ABG pCO2 POC ABG pO2 ABG Hemoglobin ABG Oxyhemoglobin ABG Sodium ABG Potassium ABG Chloride ABG Glucose Sodium 122 L Potassium Chloride 94.6 L Carbon Dioxide 17 L BUN 33 H Creatinine 3.5 H Glucose 63 L POC Glucose 54 L Lactic Acid Calcium 7.3 L Magnesium Iron Total Bilirubin 1.50 H Direct Bilirubin 0.9 H AST ALT Alkaline Phosphatase 154 H Ammonia CK-MB (CK-2) CK-MB (CK-2) Rel Index Total Protein 4.2 L Albumin 1.9 L Arterial Blood Glucose Arterial Blood Ionized Calcium Urine Creatinine Urine Total Protein Salicylates Acetaminophen Crossmatch 10/19/20 10/19/20 10/19/20 11:23 11:45 14:24 WBC RBC Hgb Hct MCV MCH MCHC RDW Plt Count Weber % (Auto) Weber # (Auto) Seg Neutrophils % Seg Neuts % (Manual) Lymphocytes % (Manual) Monocytes % (Manual) Basophils % (Manual) Nucleated RBC % Seg Neutrophils # Seg Neutrophils # Man Lymphocytes # (Manual) Monocytes # (Manual) Basophils # (Manual) PT INR APTT ABG pH POC ABG pCO2 POC ABG pO2 ABG Hemoglobin ABG Oxyhemoglobin ABG Sodium ABG Potassium ABG Chloride ABG Glucose Sodium Potassium Chloride Carbon Dioxide BUN Creatinine Glucose POC Glucose 47 L 117 H 47 L Lactic Acid Calcium Magnesium Iron Total Bilirubin Direct Bilirubin AST ALT Alkaline Phosphatase Ammonia CK-MB (CK-2) CK-MB (CK-2) Rel Index Total Protein Albumin Arterial Blood Glucose Arterial Blood Ionized Calcium Urine Creatinine Urine Total Protein Salicylates Acetaminophen Crossmatch 10/19/20 10/19/20 10/19/20 16:31 20:04 20:19 WBC RBC Hgb Hct MCV MCH MCHC RDW Plt Count Weber % (Auto) Weber # (Auto) Seg Neutrophils % Seg Neuts % (Manual) Lymphocytes % (Manual) Monocytes % (Manual) Basophils % (Manual) Nucleated RBC % Seg Neutrophils # Seg Neutrophils # Man Lymphocytes # (Manual) Monocytes # (Manual) Basophils # (Manual) PT INR APTT ABG pH POC ABG pCO2 POC ABG pO2 ABG Hemoglobin ABG Oxyhemoglobin ABG Sodium ABG Potassium ABG Chloride ABG Glucose Sodium Potassium Chloride Carbon Dioxide BUN Creatinine Glucose 59 L POC Glucose 58 L 49 L Lactic Acid Calcium Magnesium Iron Total Bilirubin Direct Bilirubin AST ALT Alkaline Phosphatase Ammonia CK-MB (CK-2) CK-MB (CK-2) Rel Index Total Protein Albumin Arterial Blood Glucose Arterial Blood Ionized Calcium Urine Creatinine Urine Total Protein Salicylates Acetaminophen Crossmatch 10/20/20 10/20/20 10/20/20 00:17 03:59 08:43 WBC 13.1 H RBC 3.42 L Hgb 8.3 L Hct 25.3 L MCV 74 L MCH 24 L MCHC RDW 31.4 H Plt Count 35 L Weber % (Auto) Weber # (Auto) Seg Neutrophils % Seg Neuts % (Manual) Lymphocytes % (Manual) Monocytes % (Manual) Basophils % (Manual) Nucleated RBC % Seg Neutrophils # Seg Neutrophils # Man Lymphocytes # (Manual) Monocytes # (Manual) Basophils # (Manual) PT INR APTT ABG pH POC ABG pCO2 POC ABG pO2 ABG Hemoglobin ABG Oxyhemoglobin ABG Sodium ABG Potassium ABG Chloride ABG Glucose Sodium Potassium Chloride Carbon Dioxide BUN Creatinine Glucose POC Glucose 29 L 47 L Lactic Acid Calcium Magnesium Iron Total Bilirubin Direct Bilirubin AST ALT Alkaline Phosphatase Ammonia CK-MB (CK-2) CK-MB (CK-2) Rel Index Total Protein Albumin Arterial Blood Glucose Arterial Blood Ionized Calcium Urine Creatinine Urine Total Protein Salicylates Acetaminophen Crossmatch 10/20/20 10/20/20 10/20/20 08:43 08:43 09:56 WBC RBC Hgb Hct MCV MCH MCHC RDW Plt Count Weber % (Auto) Weber # (Auto) Seg Neutrophils % Seg Neuts % (Manual) Lymphocytes % (Manual) Monocytes % (Manual) Basophils % (Manual) Nucleated RBC % Seg Neutrophils # Seg Neutrophils # Man Lymphocytes # (Manual) Monocytes # (Manual) Basophils # (Manual) PT 30.1 H INR 2.82 H APTT ABG pH POC ABG pCO2 POC ABG pO2 ABG Hemoglobin ABG Oxyhemoglobin ABG Sodium ABG Potassium ABG Chloride ABG Glucose Sodium 119 L* Potassium Chloride 90.7 L Carbon Dioxide 20 L BUN 35 H Creatinine 3.3 H Glucose 57 L POC Glucose 61 L Lactic Acid Calcium 7.7 L Magnesium 1.30 L Iron Total Bilirubin 1.60 H Direct Bilirubin AST ALT Alkaline Phosphatase 152 H Ammonia CK-MB (CK-2) CK-MB (CK-2) Rel Index Total Protein 4.5 L Albumin 1.6 L Arterial Blood Glucose Arterial Blood Ionized Calcium Urine Creatinine Urine Total Protein Salicylates Acetaminophen Crossmatch Chest x-ray: image reviewed Allied health notes reviewed: RT
--- NOTE | 2020-10-20 16:03 | Progress Note ---
<KATELINEVERETT H. - Last Filed: 10/20/20 15:59> Assessment and Plan Assessment and plan: This is 74-year-old male with GERD admitted with arthrosclerotic calcification, anemia and hypoglycemia. Neuro: Acute metabolic encephalopathy, significant narrowing in bilateral posterior cerebral arteries, left-sided hemiparesis with aphasia, atherosclerotic cerebrovascular disease -Avoid delirium -Patient is not sedated -Intact cough/gag, no decorticate positioning to painful stimuli -CTA head/CTA neck completed-> see results -MRI brain completed-> see results, findings suggestive of ventriculomegaly -Thiamine and folate daily -Keppra -Seizure precautions -Neurology consulted, appreciate recommendations -EEG completed which cannot rule out acute seizure with postictal state Cardio: SB-SR, hypotension, afib, HFrEF (10-15%) -Levophed, phenylepi, dobutamine, vasopressor-> wean as tolerated -MAP goal greater than 65 -Blood pressure monitoring per protocol -PICC 10/16 -Cardiology consulted, appreciate recommendations -no anticoagulation per cards for now -Amiodarone discontinued today -Echo completed-> see results, EF 25-30% Respiratory: Acute hypoxic respiratory failure; mixed resp and metabolic acidosis -Patient was intubated on 10/15 -VAP bundle -Current vent settings: Assist-control rate 30, TV 500, FiO2 40, PEEP 8 -Intubated with 7.5 OETT 24 at the lips -[facility] following -VAP bundle -10/20 reviewed CXR and ABG reviewed -O ETT advanced by RT -Daily CXR and ABG -SBT/SAT when appropriate GI:? GIB, oropharyngeal dysphagia, severe protein-calorie malnutrition -Nutrition consult for tube feedings -GI consulted, appreciate recommendations -GI will hold off EGD/PEG given acute clinical worsening with respiratory failure -Past 24 hours net + 30-89 -PPI with Protonix -BR with Senokot -NGT to LIS : Hyponatremia,metabolic acidosis, acute kidney injury secondary to acute tubular necrosis, hypomagnesemia -Nephrology consulted, appreciate recommendations -Strict intake and output -Monitor BMP -munoz for I&O -D10 with 150meq of HCO3 discontinued today -Hypertonic saline per nephrology -Serial sodium checks -Lasix restarted per nephro -Lasix drip per [facility] -Replete magnesium Heme: Iron deficient anemia, leukocytosis, supratherapeutic INR, superfical venous thrombus, thrombocytopenia -Likely secondary to malnutrition -S/p 4 units of PRBC and 1 unit plt -Iron/multivitamin supplements -GI consulted, patient recommendations -Monitor H/H -Hold off EGD/colonoscopy given acute clinical worsening with respiratory failure per GI -Trend CBC -Bilateral upper and lower extremity Doppler ultrasound shows occlusive superficial venous thrombus of left basilic and cephalic vein. -Monitor INR and bleeding Endo: Persistent hypoglycemia -Rectal tube feedings as tolerated -Accu-Cheks every 4 -Hypoglycemia protocol -Avoid hypoglycemia ID: Pulmonary infiltrate in right lung, Hypothermia -Infectious disease consulted, appreciate recommendations -COVID-19 PCR negative -Antibiotic therapy with cefepime -Monitor CBC and temperature curve -Intermittent Joseph hugger use -TSH 2.1 The high probability of a clinically significant, sudden or life threatening deterioration of the [multi] system(s) required my full and direct attention, intervention and personal management. The aggregate critical care time was [60] minutes. This time is in addition to time spent performing reported procedures but includes the following: [x] Data Review and interpretation [x] Patient assessment and monitoring of vital signs [x] Documentation [x] Medication orders and management Disposition Plan: ICU Total Time Spent with Patient (Minutes): 60 History Interval history: This is 74-year-old male with GERD who presented with AMS and left-sided weakness on 10/03 after being found incontinent in feces and urine on bed. Patient was only able to answer simple questions to the EMS. Upon presentation to the ED patient was confused. CT head showed cerebral with arthrosclerotic calcification. Work-up in the emergency department revealed anemia and hypoglycemia. Patient admitted to the hospital service for further work-up. 10/03/20: CT of the head no acute finding but showed a cerebral atrophy with suspicious atrophy and atherosclerotic calcification within the distal right middle cerebral artery. Patient also noted with hemoglobin of 5.8, received 1 unit of packed RBC and ordered for tomorrow Neuro is consulted, Covid test is negative We will check stool for occult blood MRI brain ordered we will follow Will hold any oral medicine until cleared by speech or passes the bedside swallow eval Patient noted to have severe hypoglycemic, will place on D10W Follow H&H and BMP Continue current management plan as dictated in the HPI 10/04/20: no acute findings in MRI, pending EEG, s/p 3 units PRBC transfusion. follow speech JACQUELINE rivera for now, h/h stable, GI consulted - follow recommendation. 10/05/20 Patient with acute encephalopathy, severe anemia s/p PRBC transfusion. GI following. Hgb 9.8 today. Will repeat in am. Left sided weakness. MRI negative for stroke. Neurology following. 10/06/20 Patient with encephalopathy, severe anemia s/p PRBC transfusion. Hgb 9.4 today. Patient has left sided weakness but MRI neg. Patient needs PEG tube. Will talk with family. Hypokalemia. Replace Q6h X 2. Check Mg 10/07/20 Patient with encephalopathy, severe anemia s/p PRBC transfusion. Hgb 9.6 today. Patient has left sided weakness but MRI neg. Patient needs PEG tube. Will talk with family. Hyponatremia of 128. This may be due to D10% he was on prior to NG tube. Stopped 10% Dextrose. Consulted Nephrology 10/08/20 Patient with encephalopathy, severe anemia s/p PRBC transfusion. Hgb 9.6 today. Patient has left sided weakness but MRI neg. Patient needs PEG tube. Hyponatremia worse today 126. This is due to D10% resumed last night because of hypoglycemia. I discussed with Dr. Herrera. Stop 10%Dextrose. Start D5NS Spoke to daughterCindy, yesterday and gave update. She wants PEG tube placed. Discussed plan with PAKO Chambers. He wants to do upper and lower endoscopy to evaluate anemia, before PEG tube 10/09/20 Patient with encephalopathy, severe anemia s/p PRBC transfusion. Hgb 10.3 today. Patient has left sided weakness but MRI neg. Patient needs PEG tube. Hyponatremia still present Na 126 today. This is due to D10% resumed again last night because of hypoglycemia. Nephrology had recommended D5NS but 10% Dextrose restarted overnight because of hypoglycemia. Nurses unable to place NG tube. I discussed with Dr. Otero today and he will do. Spoke to Cindy hanson, yesterday and gave update. She wants PEG tube placed. Discussed plan with PAKO Chambers. He wants to do upper and lower endoscopy to evaluate anemia, before PEG tube Today Na still 126. I discussed with Dr. Herrera and he recommended D10NS. I called Pharmacy. They will mix special D10NS drip. Patient had bilateral pneumonia on CXR therefore started iv Antibiotics, blood cultures. yesterday. Consulted ID 10/10/2020. Patient remains encephalopathic with hemoglobin stabilizing yesterday. Recheck H&H. Patient with left-sided weakness but MRI negative. Fluoroscopic NG tube placement completed yesterday. Await GI to perform EGD and colonoscopy. Follow-up hyponatremia with BMP results. Dr. Aldrich Spoke to daughter, Cindy Singh, and gave update. Daughter wants PEG tube placed. Continue IV antibiotics for bilateral pneumonia. ID consulted. Follow-up procalcitonin levels. 10/11/2020. Patient's hemoglobin remained stable today at 9.5. However, patient noted to be hypotensive with systolic blood pressure of 83. Patient received NS 250 cc bolus with improvement of blood pressure systolically to 123. GI plans to perform EGD/colonoscopy tomorrow. Hyponatremia improving. Start IV fluid of normal saline at 75 cc an hour x1 L 10/12/2020. Patient noted to have some gurgling of the upper airway. NG tube was placed to low intermittent suction. Check chest x-ray and KUB to rule out aspiration and/or ileus. Continue to monitor. H/H remained stable. ID stopped antibiotics due to normal procalcitonin. Speech evaluation 10/13/2020. Patient remains encephalopathic. I discussed overall mental status with the daughter yesterday and updated her with plan of care. Neurology reports: CT angio of the head that is a significant narrowing seen in both posterior cerebral arteries - and no signs of large vessel -CT of the head no acute finding but showed a cerebral atrophy with suspicious atrophy and atherosclerotic calcification within the distal right middle cerebral artery. -MRI brain without any acute findings - EEG completed yesterday remarkable for diffuse slowing 3-4 Hz and with occa ssional triphasic waves , no epileptiform discharges is noted -- full report to follow -Repeat MRI brain showed no acute finding Keppra was decreased to 250 mg IV twice daily and thiamine was added x3 days. No LP for now due to lack of any inflammatory findings. Repeat EEG per neurology. Sodium level has improved. Serum creatinine has increased to 1.6 today. Avoid nephrotoxic agents and monitor I/O's daily. Salt tabs 2 g 3 times daily per nephrology 10/14/2020. Patient remains encephalopathic. MRI, EEG and CT results noted above. Continue supportive care. Defer to neurology recommendations regarding mental status/encephalopathy. Continue salt tabs per nephrology. Follow-up BMP . Avoid nephrotoxic agents and monitor I/O's daily. Continue NG tube feedings. PEG placement per GI. 10/15/2020. Patient noted to have significant respiratory distress. Patient with tachypnea, some accessory muscle use, labored breathing and coarse breath sounds and sonorous respirations. Dr. Maldonado from the emergency department intubated the patient. Dr. Floyd was consulted and notified. The patient will be transferred to the ICU and continued on mechanical ventilation. Follow-up chest x-ray. 10/16: Patient is having persistent hypoglycemia despite being on D10 23% saline at 100ml/hr. given multiple amps of D50 with minimal response. The patient IV fluids changed to D5W at 125. Repeat BMP in the p.m. 10/17: hypoglycemia better, remains on levophed, epi, neoshynephrine, dobumatine a nd bicarb gtt this morning. RN is slowly titrating vasopressor as tolerated. Updated daughter Mignon today and relayed new findings including posturing of BUE to pain. 10/18: Patient is being slowly weaned off of vasopressor support by RN. Patient remains on phenyl epinephrine, vasopressin, norepinephrine and amiodarone. Nephrology will resume Lasix. Patient is hyponatremic today however he is on a bicarb drip which we will add today. This evening patient noted to be anemic and have low platelets. Transfuse platelets and PRBC. NGT to suction 10/19: remains on vasopressor support, renal will reassess HD tomorrow. Patient with significant edema. Dr. Gorman spoke to family who wishes for code status to not change. 10/20: Amiodarone stopped by cardiology, patient placed on hypertonic saline by nephrology. Patient is tolerating trickle feedings at this time. Patient strep ordered for diuresis. Patient is being weaned off vasopressors as tolerated. Hospitalist Physical - Constitutional Vitals: Temp Pulse Resp BP Pulse Ox 97.8 F 87 22 126/74 98 10/20/20 11:49 10/20/20 15:45 10/20/20 15:45 10/20/20 15:45 10/20/20 15:31 General appearance: Present: other (Unresponsive to painful stimuli) - EENT ENT: poor dentition - Neck Neck: Absent: masses or JVD, cervical LAD - Respiratory Respiratory effort: normal Respiratory: bilateral: diminished - Cardiovascular Rhythm: regular Heart Sounds: Present: S1 & S2. Absent: systolic murmur, diastolic murmur - Extremities Extremities: no ischemia, pulses intact, pulses symmetrical, normal color Extremity abnormal: edema Peripheral Pulses: within normal limits - Abdominal General gastrointestinal: soft, distended - Integumentary Integumentary: Present: dry - Psychiatric Psychiatric: other (Not interactive) - Neurologic Neurologic: other (Intact cough/gag, anasarca) - Allied Health Allied health notes reviewed: nursing, RT, social work HEART Score - HEART Score Troponin: Troponin T < 0.010 ng/mL (0.00-0.029) 10/02/20 23:17 Results - Labs CBC & Chem 7: 10/20/20 08:43 10/20/20 08:43 Labs: Laboratory Last Values WBC 13.1 K/mm3 (4.5-11.0) H 10/20/20 08:43 RBC 3.42 M/mm3 (3.65-5.03) L 10/20/20 08:43 Hgb 8.3 gm/dl (11.8-15.2) L 10/20/20 08:43 Hct 25.3 % (35.5-45.6) L 10/20/20 08:43 MCV 74 fl (84-94) L 10/20/20 08:43 MCH 24 pg (28-32) L 10/20/20 08:43 MCHC 33 % (32-34) 10/20/20 08:43 RDW 31.4 % (13.2-15.2) H 10/20/20 08:43 Plt Count 35 K/mm3 (140-440) L 10/20/20 08:43 Lymph % (Auto) [employer] 10/10/20 10:58 [place]arton % (Auto) 8.3 % (0.0-7.3) H 10/15/20 05:50 Eos % (Auto) 0.3 % (0.0-4.3) 10/15/20 05:50 Baso % (Auto) [employer] 10/10/20 10:58 Lymph # (Auto) [employer] 10/10/20 10:58 [place]arton # (Auto) 1.3 K/mm3 (0.0-0.8) H 10/15/20 05:50 Eos # (Auto) 0.0 K/mm3 (0.0-0.4) 10/15/20 05:50 Baso # (Auto) 0.1 K/mm3 (0.0-0.1) 10/15/20 05:50 Add Manual Diff Complete 10/17/20 04:49 Total Counted 100 10/17/20 04:49 Seg Neutrophils % [employer] 10/17/20 04:49 Seg Neuts % (Manual) 60.0 % (40.0-70.0) 10/17/20 04:49 Band Neutrophils % 13.0 % 10/17/20 04:49 Lymphocytes % (Manual) 3.0 % (13.4-35.0) L 10/17/20 04:49 Monocytes % (Manual) 6.0 % (0.0-7.3) 10/17/20 04:49 Eosinophils % (Manual) 1.0 % (0.0-4.3) 10/13/20 05:24 Basophils % (Manual) 2.0 % (0.0-1.8) H 10/10/20 10:58 Metamyelocytes % 11.0 % 10/17/20 04:49 Myelocytes % 7.0 % 10/17/20 04:49 Nucleated RBC % 3.0 % (0.0-0.9) H 10/17/20 04:49 Seg Neutrophils # 13.2 K/mm3 (1.8-7.7) H 10/15/20 05:50 Seg Neutrophils # Man 10.6 K/mm3 (1.8-7.7) H 10/17/20 04:49 Band Neutrophils # 2.3 K/mm3 10/17/20 04:49 Lymphocytes # (Manual) 0.5 K/mm3 (1.2-5.4) L 10/17/20 04:49 Abs React Lymphs (Man) 0.0 K/mm3 10/17/20 04:49 Monocytes # (Manual) 1.1 K/mm3 (0.0-0.8) H 10/17/20 04:49 Eosinophils # (Manual) 0.0 K/mm3 (0.0-0.4) 10/17/20 04:49 Basophils # (Manual) 0.0 K/mm3 (0.0-0.1) 10/17/20 04:49 Metamyelocytes # 1.9 K/mm3 10/17/20 04:49 Myelocytes # 1.2 K/mm3 10/17/20 04:49 Promyelocytes # 0.0 K/mm3 10/17/20 04:49 Blast Cells # 0.0 K/mm3 10/17/20 04:49 WBC Morphology Not Reportable 10/17/20 04:49 Hypersegmented Neuts Not Reportable 10/17/20 04:49 Hyposegmented Neuts Not Reportable 10/17/20 04:49 Hypogranular Neuts Not Reportable 10/17/20 04:49 Smudge Cells Not Reportable 10/17/20 04:49 Toxic Granulation Not Reportable 10/17/20 04:49 Toxic Vacuolation Not Reportable 10/17/20 04:49 Dohle Bodies Not Reportable 10/17/20 04:49 Pelger-Huet Anomaly Not Reportable 10/17/20 04:49 Andrés Rods Not Reportable 10/17/20 04:49 Platelet Estimate Consistent w auto 10/17/20 04:49 Clumped Platelets Not Reportable 10/17/20 04:49 Plt Clumps, EDTA Not Reportable 10/17/20 04:49 Large Platelets Not Reportable 10/17/20 04:49 Giant Platelets Rare 10/17/20 04:49 Platelet Satelliting Not Reportable 10/17/20 04:49 Plt Morphology Comment Not Reportable 10/17/20 04:49 RBC Morphology Not Reportable 10/17/20 04:49 Dimorphic RBCs Not Reportable 10/17/20 04:49 Polychromasia Not Reportable 10/17/20 04:49 Hypochromasia 2+ 10/17/20 04:49 Poikilocytosis 2+ 10/17/20 04:49 Anisocytosis 3+ 10/17/20 04:49 Microcytosis Not Reportable 10/17/20 04:49 Macrocytosis Not Reportable 10/17/20 04:49 Spherocytes Not Reportable 10/17/20 04:49 Pappenheimer Bodies Not Reportable 10/17/20 04:49 Sickle Cells Not Reportable 10/17/20 04:49 Target Cells Not Reportable 10/17/20 04:49 Tear Drop Cells Not Reportable 10/17/20 04:49 Ovalocytes Not Reportable 10/17/20 04:49 Helmet Cells Not Reportable 10/17/20 04:49 [place] Bodies Not Reportable 10/17/20 04:49 [place] Rings Not Reportable 10/17/20 04:49 [place] Cells 1+ 10/17/20 04:49 Bite Cells Not Reportable 10/17/20 04:49 Crenated Cell Not Reportable 10/17/20 04:49 Elliptocytes Not Reportable 10/17/20 04:49 Acanthocytes (Spur) Not Reportable 10/17/20 04:49 Rouleaux Not Reportable 10/17/20 04:49 Hemoglobin C Crystals Not Reportable 10/17/20 04:49 Schistocytes Not Reportable 10/17/20 04:49 Malaria parasites Not Reportable 10/17/20 04:49 Dereck Bodies Not Reportable 10/17/20 04:49 Hem Pathologist Commnt No 10/17/20 04:49 PT 30.1 Sec. (12.2-14.9) H 10/20/20 08:43 INR 2.82 (0.87-1.13) H 10/20/20 08:43 APTT 57.6 Sec. (24.2-36.6) H 10/02/20 23:17 Thrombin Time 17.8 Sec. (15.1-19.6) 10/02/20 23:17 ABG pH 7.234 (7.320-7.450) L 10/19/20 04:00 POC ABG pCO2 45.5 mmHg (32.0-48.0) 10/19/20 04:00 POC ABG pO2 53.9 mmHg (83-108) L 10/19/20 04:00 POC ABG HCO3 18.8 10/19/20 04:00 ABG O2 Saturation 87.6 (0-100) 10/19/20 04:00 POC ABG Base Excess -8.2 10/19/20 04:00 ABG Hemoglobin 8.9 (12.0-17.5) L 10/19/20 04:00 ABG Oxyhemoglobin 86.6 (94-98) L 10/19/20 04:00 ABG Methemoglobin 0.3 (0.0-1.5) 10/19/20 04:00 ABG Sodium 118.1 mmol/L (136.0-145.0) L 10/19/20 04:00 ABG Potassium 3.7 mmol/L (3.40-4.50) 10/19/20 04:00 ABG Chloride 94.0 mmol/L (98-107) L 10/19/20 04:00 ABG Glucose 61 mg/dL (65-95) L 10/19/20 04:00 Carboxyhemoglobin 0.8 (0.5-1.5) 10/19/20 04:00 FiO2 % 50.0 10/19/20 04:00 Sodium 119 mmol/L (137-145) L* 10/20/20 08:43 Potassium 3.9 mmol/L (3.6-5.0) 10/20/20 08:43 Chloride 90.7 mmol/L (98-107) L 10/20/20 08:43 Carbon Dioxide 20 mmol/L (22-30) L 10/20/20 08:43 Anion Gap 12 mmol/L 10/20/20 08:43 BUN 35 mg/dL (9-20) H 10/20/20 08:43 Creatinine 3.3 mg/dL (0.8-1.3) H 10/20/20 08:43 Estimated GFR 22 ml/min 10/20/20 08:43 BUN/Creatinine Ratio 11 % 10/20/20 08:43 Glucose 57 mg/dL (75-100) L 10/20/20 08:43 POC Glucose 85 mg/dL (70-105) 10/20/20 15:02 Hemoglobin A1c 5.2 % (4-6) 10/03/20 05:57 Osmolality 267 Mosm/kg 10/07/20 13:54 Lactic Acid 1.50 mmol/L (0.7-2.0) 10/03/20 04:43 Calcium 7.7 mg/dL (8.4-10.2) L 10/20/20 08:43 Phosphorus 3.50 mg/dL (2.5-4.5) 10/20/20 08:43 Magnesium 1.30 mg/dL (1.7-2.3) L 10/20/20 08:43 Iron 42 ug/dL (49-181) L 10/03/20 05:57 TIBC 305 mcg/dL (250-450) 10/03/20 05:57 Total Bilirubin 1.60 mg/dL (0.1-1.2) H 10/20/20 08:43 Direct Bilirubin 0.9 mg/dL (0-0.2) H 10/19/20 04:51 Indirect Bilirubin 0.6 mg/dL 10/19/20 04:51 AST 27 units/L (5-40) 10/20/20 08:43 ALT 27 units/L (7-56) 10/20/20 08:43 Alkaline Phosphatase 152 units/L (35-129) H 10/20/20 08:43 Ammonia 22.0 umol/L (25-60) L 10/02/20 23:17 Total Creatine Kinase 88 units/L (55-170) 10/02/20 23:17 CK-MB (CK-2) 7.5 ng/mL (0.0-4.0) H 10/02/20 23:17 CK-MB (CK-2) Rel Index 8.5 (0-4) H 10/02/20 23:17 Troponin T < 0.010 ng/mL (0.00-0.029) 10/02/20 23:17 Total Protein 4.5 g/dL (6.3-8.2) L 10/20/20 08:43 Albumin 1.6 g/dL (3.9-5) L 10/20/20 08:43 Albumin/Globulin Ratio 0.6 % 10/20/20 08:43 Lipase 17 units/L (13-60) 10/16/20 22:58 Procalcitonin 0.10 ng/mL (<0.15) 10/10/20 10:58 TSH 2.130 mlU/mL (0.270-4.200) 10/07/20 13:54 Total Cortisol 17.4 mcg/dL () 10/09/20 02:46 Arterial Blood Glucose 61 mg/dL (65-95) L 10/19/20 04:00 Arterial Blood Ionized Calcium 4.5 mg/dL (4.6-5.3) L 10/19/20 04:00 Urine Eosinophils None seen (None Seen) 10/14/20 Unknown Urine Osmolality 223 Mosm/kg 10/07/20 Unknown Urine Creatinine 144.2 mg/dL (0.1-20.0) H 10/14/20 Unknown Protein/Creatinin Ratio 0.67 10/14/20 Unknown Urine Sodium 10 mmol/L 10/14/20 Unknown Urine Total Protein 97 mg/dL (5-11.8) H 10/14/20 Unknown Salicylates < 0.3 mg/dL (2.8-20.0) L 10/02/20 23:17 Acetaminophen 5.0 ug/mL (10.0-30.0) L 10/02/20 23:17 Plasma/Serum Alcohol < 0.01 % (0-0.07) 10/02/20 23:17 Coronavirus (PCR) Negative (Negative) 10/14/20 08:00 Blood Type O POSITIVE 10/18/20 19:08 Antibody Screen Negative 10/18/20 19:08 Crossmatch See Detail 10/18/20 19:08 Munoz/IV: Voiding Method Indwelling Catheter Active Medications - Current Medications Current Medications: Generic Name Dose Route Start Last Admin Trade Name Freq PRN Reason Stop Dose Admin Acetaminophen 650 mg 10/03/20 02:10 10/06/20 15:28 Acetaminophen 325 Mg Tab PO 650 mg Q4H PRN Administration Pain MILD(1-3)/Fever >100.5/ROMERO Al Hydrox/Mg Hydrox/Simethicone 30 ml 10/03/20 02:10 Alum-Mag Hydroxide-Simethicone [id number]/5ml Oral Liqd 30 Ml PO Q4H PRN Indigestion Lipase/Protease/Amylase 1 each 10/03/20 16:51 Lipase 10,500/Protease 25,000/Amylase 43,750 (Units) Dr Reis FEEDTUBE PRN PRN For Clogged Feeding Tube Dextrose 50 ml 10/16/20 12:42 10/20/20 04:04 Dextrose 50% In Water (25gm) 50 Ml Syringe IV 50 ml Q30MIN PRN Administration Hypoglycemia Protocol Ferrous Sulfate 308 mg 10/16/20 10:00 10/20/20 09:19 Ferrous Sulfate 308 Mg (62mg Elemental Iron) / 7 Ml Elixir FEEDTUBE 308 mg DAILY JOSE Administration Folic Acid 1 mg 10/03/20 10:00 10/20/20 09:19 Folic Acid 1 Mg Tab PO 1 mg QDAY JOSE Administration Furosemide 40 mg 10/18/20 15:00 10/20/20 05:38 Furosemide 40 Mg/4 Ml Inj IV 40 mg DAILY@0600 JOSE Administration Hydrocortisone Sodium Succinate 100 mg 10/19/20 18:00 10/20/20 09:19 Hydrocortisone Sod Succ 100 Mg/2 Ml Vial IV 100 mg Q8H JOSE Administration Levetiracetam 250 mg/ Dextrose 102.5 mls @ 400 mls/hr 10/10/20 22:00 10/20/20 09:19 IV 400 mls/hr Q12HR JOSE Administration Vasopressin 20 unit/ Sodium 101 mls @ 9.09 mls/hr 10/16/20 13:00 10/20/20 11:29 Chloride IV 0.03 units/min TITR JOSE 9.09 mls/hr Administration Protocol 0.03 UNITS/MIN Phenylephrine HCl 100 mg/ 100 mls @ 3 mls/hr 10/16/20 18:00 10/20/20 11:50 Sodium Chloride IV 0 mcg/min TITR JOSE 0 mls/hr Titration Protocol 50 MCG/MIN NORepinephrine/NS 8 MG-250 ML 8 mg in 250 mls @ 3.75 mls/hr 10/16/20 19:00 10/20/20 08:49 Norepinephrine/Ns 8 Mg-250 Ml (Double Conc) IV 10 mcg/min TITRATE JOSE 18.75 mls/hr Administration Protocol 2 MCG/MIN Dobutamine HCl/Dextrose 500 mg in 250 mls @ 6.908 mls/hr 10/16/20 19:00 10/20/20 04:00 Dobutrex Drip 500mg/D5w 250ml IV 5 mcg/kg/min DIRECT JOSE 13.815 mls/hr Administration Protocol 2.5 MCG/KG/MIN Epinephrine 8 mg/ Sodium 250 mls @ 0 mls/hr 10/16/20 23:45 10/17/20 11:33 Chloride IV 0 mls/hr TITR JOSE Infusion Cefepime HCl 2 gm in 100 mls @ 200 mls/hr 10/17/20 22:00 10/19/20 23:13 Cefepime/Ns 2 Gm/100 Ml IV 10/22/20 22:29 200 mls/hr Q24H JOSE Administration Protocol Sodium Chloride 500 mls @ 25 mls/hr 10/20/20 11:45 Nacl 3% IV 10/21/20 07:44 DIRECT ONE Magnesium Hydroxide 30 ml 10/03/20 02:10 Magnesium Hydroxide (Mom) Oral Liqd Udc PO Q4H PRN Constipation Metoclopramide HCl 5 mg 10/17/20 09:00 Metoclopramide 10 Mg/2 Ml Inj IV Q6H PRN Nausea And Vomiting Ondansetron HCl 4 mg 10/03/20 02:10 10/07/20 23:19 Ondansetron 4 Mg/2 Ml Inj IV 4 mg Q8H PRN Administration Nausea And Vomiting Pantoprazole Sodium 40 mg 10/04/20 15:00 10/20/20 09:19 Pantoprazole 40 Mg Inj IV 40 mg QDAY JOSE Administration Promethazine HCl 25 mg 10/03/20 02:10 Promethazine 25 Mg Rect Supp ME Q6H PRN N/V IF NPO AND NO IV ACCESS Senna 8.6 mg 10/03/20 02:10 Sennosides 8.6 Mg Tab PO Q12HR PRN Constipation Simple Syrup 15 ml 10/03/20 16:51 10/19/20 02:08 Simple Syrup 15 Ml FEEDTUBE 15 ml PRN PRN Administration Hypoglycemia Simple Syrup 30 ml 10/03/20 16:51 10/16/20 22:02 Simple Syrup 15 Ml FEEDTUBE 30 ml PRN PRN Administration Hypoglycemia Sodium Bicarbonate 325 mg 10/03/20 16:51 Sodium Bicarbonate 325 Mg Tab FEEDTUBE PRN PRN For Clogged Feeding Tube Nutrition/Malnutrition Assess - Dietary Evaluation Nutrition/Malnutrition Findings: Nutrition Notes Start: 10/03/20 08:51 Freq: Status: Active Protocol: Document 10/20/20 11:01 BETSY (Rec: 10/20/20 11:05 BETSY [id number]) Nutrition Notes Initial or Follow up Reassessment Current Diagnosis Diabetes Other Pertinent Diagnosis AMS, hypothermia, pneu, anemia , atherosclerotic cerebrovascular disease Current Diet Nepro 1.8 at 40 ml/hr Labs/Tests Na 119 BUN 35 Cr 3.3 Mg 1.3 Pertinent Medications Sodium Bicarb at 125 ml/hr Lasix Vasopressin Height 5 ft 10 in Weight 92.1 kg [place] Body Weight (kg) 75.45 BMI 29.1 Weight Status Overweight Subjective/Other Information TF turned back on this AM at 20 ml/hr. Burn Absent Trauma Absent Difficulty In Swallowing Current % PO Negligible Minimum of two criteria No Fluid Accumulation Moderate to Severe (severe) #1 Nutrition Diagnosis Swallowing difficulty Diagnosis Progress(for reassessment Continues documentation) Is patient on ventilator? No Is Patient Ambulatory and/or Out of Bed No REE-([facility]-confined to bed) 1993.892 Kcal/Kg value to use for calculation 20 Approximate Energy Requirements Using 1842 kcal/Kg Calculation Used for Recommendations Kcal/kg Additional Notes Protein: (1-1.2g/kg) 84-101g Fluid: 1 ml/kcal Nutrition Intervention Nutrition Support: Nepro at 40ml/hour. For hyponatremia flush 50 ml q4h, once resolved resume flush at 170 ml q4h Kcal 1,728 Protein (gm) 78 Fluid (mL) 698 Goal #1 Meet at least 75% of protein and energy needs via TF Anticipated Discharge Needs: continue TF regimen Follow-Up By: 10/23/20 Additional Comments F/u: TF at goal and tolerance <TJ GORMAN - Last Filed: 10/22/20 11:07> History Interval history: I saw and evaluated the patient. Discussed with the nurse practitioner and agree with their findings and plan as documented in this note. Hospitalist Physical - Constitutional Vitals: Temp Pulse Resp BP Pulse Ox 97.5 F L 91 H 16 94/56 98 10/22/20 03:11 10/22/20 10:15 10/22/20 10:15 10/22/20 10:15 10/22/20 10:15 HEART Score - HEART Score Troponin: Troponin T < 0.010 ng/mL (0.00-0.029) 10/02/20 23:17 Results - Labs CBC & Chem 7: 10/22/20 06:00 10/22/20 02:43 Labs: Laboratory Last Values WBC 6.5 K/mm3 (4.5-11.0) 10/22/20 06:00 RBC 3.29 M/mm3 (3.65-5.03) L 10/22/20 06:00 Hgb 8.0 gm/dl (11.8-15.2) L 10/22/20 06:00 Hct 24.3 % (35.5-45.6) L 10/22/20 06:00 MCV 74 fl (84-94) L 10/22/20 06:00 MCH 24 pg (28-32) L 10/22/20 06:00 MCHC 33 % (32-34) 10/22/20 06:00 RDW 32.2 % (13.2-15.2) H 10/22/20 06:00 Plt Count 21 K/mm3 (140-440) L 10/22/20 06:00 Lymph % (Auto) [employer] 10/10/20 10:58 Wharton % (Auto) 8.3 % (0.0-7.3) H 10/15/20 05:50 Eos % (Auto) 0.3 % (0.0-4.3) 10/15/20 05:50 Baso % (Auto) [employer] 10/10/20 10:58 Lymph # (Auto) [employer] 10/10/20 10:58 Wharton # (Auto) 1.3 K/mm3 (0.0-0.8) H 10/15/20 05:50 Eos # (Auto) 0.0 K/mm3 (0.0-0.4) 10/15/20 05:50 Baso # (Auto) 0.1 K/mm3 (0.0-0.1) 10/15/20 05:50 Add Manual Diff Complete 10/21/20 Unknown Total Counted 100 10/21/20 Unknown Seg Neutrophils % [employer] 10/21/20 Unknown Seg Neuts % (Manual) 83.0 % (40.0-70.0) H 10/21/20 Unknown Band Neutrophils % 13.0 % 10/17/20 04:49 Lymphocytes % (Manual) 10.0 % (13.4-35.0) L 10/21/20 Unknown Monocytes % (Manual) 7.0 % (0.0-7.3) 10/21/20 Unknown Eosinophils % (Manual) 1.0 % (0.0-4.3) 10/13/20 05:24 Basophils % (Manual) 2.0 % (0.0-1.8) H 10/10/20 10:58 Metamyelocytes % 11.0 % 10/17/20 04:49 Myelocytes % 7.0 % 10/17/20 04:49 Nucleated RBC % 2.0 % (0.0-0.9) H 10/21/20 Unknown Seg Neutrophils # 13.2 K/mm3 (1.8-7.7) H 10/15/20 05:50 Seg Neutrophils # Man 9.0 K/mm3 (1.8-7.7) H 10/21/20 Unknown Band Neutrophils # 0.0 K/mm3 10/21/20 Unknown Lymphocytes # (Manual) 1.1 K/mm3 (1.2-5.4) L 10/21/20 Unknown Abs React Lymphs (Man) 0.0 K/mm3 10/21/20 Unknown Monocytes # (Manual) 0.8 K/mm3 (0.0-0.8) 10/21/20 Unknown Eosinophils # (Manual) 0.0 K/mm3 (0.0-0.4) 10/21/20 Unknown Basophils # (Manual) 0.0 K/mm3 (0.0-0.1) 10/21/20 Unknown Metamyelocytes # 0.0 K/mm3 10/21/20 Unknown Myelocytes # 0.0 K/mm3 10/21/20 Unknown Promyelocytes # 0.0 K/mm3 10/21/20 Unknown Blast Cells # 0.0 K/mm3 10/21/20 Unknown WBC Morphology Not Reportable 10/21/20 Unknown WBC Morphology TNR 10/21/20 Unknown Hypersegmented Neuts Not Reportable 10/21/20 Unknown Hyposegmented Neuts Not Reportable 10/21/20 Unknown Hypogranular Neuts Not Reportable 10/21/20 Unknown Smudge Cells Not Reportable 10/21/20 Unknown Toxic Granulation Not Reportable 10/21/20 Unknown Toxic Vacuolation Not Reportable 10/21/20 Unknown Dohle Bodies Not Reportable 10/21/20 Unknown Pelger-Huet Anomaly Not Reportable 10/21/20 Unknown Andrés Rods Not Reportable 10/21/20 Unknown Platelet Estimate Consistent w auto 10/21/20 Unknown Clumped Platelets Not Reportable 10/21/20 Unknown Plt Clumps, EDTA Not Reportable 10/21/20 Unknown Large Platelets Not Reportable 10/21/20 Unknown Giant Platelets Not Reportable 10/21/20 Unknown Platelet Satelliting Not Reportable 10/21/20 Unknown Plt Morphology Comment Not Reportable 10/21/20 Unknown RBC Morphology Not Reportable 10/21/20 Unknown Dimorphic RBCs Not Reportable 10/21/20 Unknown Polychromasia Not Reportable 10/21/20 Unknown Hypochromasia Few 10/21/20 Unknown Poikilocytosis Not Reportable 10/21/20 Unknown Anisocytosis Not Reportable 10/21/20 Unknown Microcytosis Not Reportable 10/21/20 Unknown Macrocytosis Not Reportable 10/21/20 Unknown Spherocytes Not Reportable 10/21/20 Unknown Pappenheimer Bodies Not Reportable 10/21/20 Unknown Sickle Cells Not Reportable 10/21/20 Unknown Target Cells 1+ 10/21/20 Unknown Tear Drop Cells Few 10/21/20 Unknown Ovalocytes Not Reportable 10/21/20 Unknown Helmet Cells Not Reportable 10/21/20 Unknown [place] Bodies Not Reportable 10/21/20 Unknown [place] Rings Not Reportable 10/21/20 Unknown Norbert Cells Few 10/21/20 Unknown Bite Cells Not Reportable 10/21/20 Unknown Crenated Cell Not Reportable 10/21/20 Unknown Elliptocytes Not Reportable 10/21/20 Unknown Acanthocytes (Spur) Not Reportable 10/21/20 Unknown Rouleaux Not Reportable 10/21/20 Unknown Hemoglobin C Crystals Not Reportable 10/21/20 Unknown Schistocytes Not Reportable 10/21/20 Unknown Malaria parasites Not Reportable 10/21/20 Unknown Dereck Bodies Not Reportable 10/21/20 Unknown Hem Pathologist Commnt No 10/21/20 Unknown PT 27.0 Sec. (12.2-14.9) H 10/21/20 Unknown INR 2.44 (0.87-1.13) H 10/21/20 Unknown APTT 61.4 Sec. (24.2-36.6) H* 10/21/20 Unknown Thrombin Time 17.8 Sec. (15.1-19.6) 10/02/20 23:17 Fibrinogen 482 mg/dl (211-480) H 10/21/20 Unknown D-Dimer 1992.93 ng/mlDDU (0-234) H 10/21/20 Unknown ABG pH 7.431 (7.320-7.450) 10/22/20 04:00 POC ABG pCO2 29.1 mmHg (32.0-48.0) L 10/22/20 04:00 POC ABG pO2 64.1 mmHg (83-108) L 10/22/20 04:00 POC ABG HCO3 18.9 10/22/20 04:00 ABG O2 Saturation 91.3 (0-100) 10/22/20 04:00 POC ABG Base Excess -4.7 10/22/20 04:00 ABG Hemoglobin 8.2 (12.0-17.5) L 10/22/20 04:00 ABG Oxyhemoglobin 90.6 (94-98) L 10/22/20 04:00 ABG Methemoglobin 0.3 (0.0-1.5) 10/22/20 04:00 ABG Sodium 118.8 mmol/L (136.0-145.0) L 10/22/20 04:00 ABG Potassium 3.2 mmol/L (3.40-4.50) L 10/21/20 04:00 ABG Chloride 96.0 mmol/L (98-107) L 10/22/20 04:00 ABG Glucose 117 mg/dL (65-95) H 10/22/20 04:00 Carboxyhemoglobin 0.5 (0.5-1.5) 10/22/20 04:00 FiO2 % 40.0 10/22/20 04:00 Sodium 122 mmol/L (137-145) L 10/22/20 02:43 Potassium 3.1 mmol/L (3.6-5.0) L 10/22/20 02:43 Chloride 92.9 mmol/L (98-107) L 10/22/20 02:43 Carbon Dioxide 23 mmol/L (22-30) 10/22/20 02:43 Anion Gap 9 mmol/L 10/22/20 02:43 BUN 44 mg/dL (9-20) H 10/22/20 02:43 Creatinine 3.2 mg/dL (0.8-1.3) H 10/22/20 02:43 Estimated GFR 23 ml/min 10/22/20 02:43 BUN/Creatinine Ratio 14 % 10/22/20 02:43 Glucose 97 mg/dL (75-100) 10/22/20 02:43 POC Glucose 93 mg/dL (70-105) 10/22/20 10:09 Hemoglobin A1c 5.2 % (4-6) 10/03/20 05:57 Osmolality 267 Mosm/kg 10/07/20 13:54 Lactic Acid 1.50 mmol/L (0.7-2.0) 10/03/20 04:43 Calcium 7.8 mg/dL (8.4-10.2) L 10/22/20 02:43 Phosphorus 2.60 mg/dL (2.5-4.5) D 10/21/20 05:50 Magnesium 1.60 mg/dL (1.7-2.3) L 10/21/20 05:50 Iron 42 ug/dL (49-181) L 10/03/20 05:57 TIBC 305 mcg/dL (250-450) 10/03/20 05:57 Total Bilirubin 1.60 mg/dL (0.1-1.2) H 10/20/20 08:43 Direct Bilirubin 0.9 mg/dL (0-0.2) H 10/19/20 04:51 Indirect Bilirubin 0.6 mg/dL 10/19/20 04:51 AST 27 units/L (5-40) 10/20/20 08:43 ALT 27 units/L (7-56) 10/20/20 08:43 Alkaline Phosphatase 152 units/L (35-129) H 10/20/20 08:43 Ammonia 22.0 umol/L (25-60) L 10/02/20 23:17 Total Creatine Kinase 88 units/L (55-170) 10/02/20 23:17 CK-MB (CK-2) 7.5 ng/mL (0.0-4.0) H 10/02/20 23:17 CK-MB (CK-2) Rel Index 8.5 (0-4) H 10/02/20 23:17 Troponin T < 0.010 ng/mL (0.00-0.029) 10/02/20 23:17 Total Protein 4.5 g/dL (6.3-8.2) L 10/20/20 08:43 Albumin 1.6 g/dL (3.9-5) L 10/20/20 08:43 Albumin/Globulin Ratio 0.6 % 10/20/20 08:43 Lipase 17 units/L (13-60) 10/16/20 22:58 Procalcitonin 0.10 ng/mL (<0.15) 10/10/20 10:58 TSH 2.130 mlU/mL (0.270-4.200) 10/07/20 13:54 Total Cortisol 17.4 mcg/dL () 10/09/20 02:46 Arterial Blood Glucose 117 mg/dL (65-95) H 10/22/20 04:00 Arterial Blood Ionized Calcium 4.6 mg/dL (4.6-5.3) 10/22/20 04:00 Urine Eosinophils None seen (None Seen) 10/14/20 Unknown Urine Osmolality 223 Mosm/kg 10/07/20 Unknown Urine Creatinine 144.2 mg/dL (0.1-20.0) H 10/14/20 Unknown Protein/Creatinin Ratio 0.67 10/14/20 Unknown Urine Sodium 10 mmol/L 10/14/20 Unknown Urine Total Protein 97 mg/dL (5-11.8) H 10/14/20 Unknown Salicylates < 0.3 mg/dL (2.8-20.0) L 10/02/20 23:17 Acetaminophen 5.0 ug/mL (10.0-30.0) L 10/02/20 23:17 Plasma/Serum Alcohol < 0.01 % (0-0.07) 10/02/20 23:17 Coronavirus (PCR) Negative (Negative) 10/14/20 08:00 Blood Type O POSITIVE 10/18/20 19:08 Antibody Screen Negative 10/18/20 19:08 Crossmatch See Detail 10/18/20 19:08 Munoz/IV: Voiding Method Indwelling Catheter Active Medications - Current Medications Current Medications: Generic Name Dose Route Start Last Admin Trade Name Freq PRN Reason Stop Dose Admin Acetaminophen 650 mg 10/03/20 02:10 10/06/20 15:28 Acetaminophen 325 Mg Tab PO 650 mg Q4H PRN Administration Pain MILD(1-3)/Fever >100.5/ROMERO Al Hydrox/Mg Hydrox/Simethicone 30 ml 10/03/20 02:10 Alum-Mag Hydroxide-Simethicone [id number]/5ml Oral Liqd 30 Ml PO Q4H PRN Indigestion Lipase/Protease/Amylase 1 each 10/03/20 16:51 Lipase 10,500/Protease 25,000/Amylase 43,750 (Units) Dr Reis FEEDTUBE PRN PRN For Clogged Feeding Tube Dextrose 50 ml 10/16/20 12:42 10/21/20 17:39 Dextrose 50% In Water (25gm) 50 Ml Syringe IV 50 ml Q30MIN PRN Administration Hypoglycemia Protocol Fentanyl 50 mcg 10/22/20 10:00 Fentanyl 100 Mcg/2 Ml Inj IV Q4HR PRN Pain , Severe (7-10) Ferrous Sulfate 308 mg 10/16/20 10:00 10/22/20 09:39 Ferrous Sulfate 308 Mg (62mg Elemental Iron) / 7 Ml Elixir FEEDTUBE 308 mg DAILY JOSE Administration Folic Acid 1 mg 10/03/20 10:00 10/22/20 09:40 Folic Acid 1 Mg Tab PO 1 mg QDAY JOSE Administration Hydrocortisone Sodium Succinate 100 mg 10/19/20 18:00 10/22/20 10:11 Hydrocortisone Sod Succ 100 Mg/2 Ml Vial IV 100 mg Q8H JOSE Administration Levetiracetam 250 mg/ Dextrose 102.5 mls @ 400 mls/hr 10/10/20 22:00 10/22/20 09:39 IV 400 mls/hr Q12HR JOSE Administration Vasopressin 20 unit/ Sodium 101 mls @ 9.09 mls/hr 10/16/20 13:00 10/21/20 23:15 Chloride IV 0.03 units/min TITR JOSE 9.09 mls/hr Administration Protocol 0.03 UNITS/MIN Phenylephrine HCl 100 mg/ 100 mls @ 3 mls/hr 10/16/20 18:00 10/20/20 11:50 Sodium Chloride IV 0 mcg/min TITR JOSE 0 mls/hr Titration Protocol 50 MCG/MIN NORepinephrine/NS 8 MG-250 ML 8 mg in 250 mls @ 3.75 mls/hr 10/16/20 19:00 10/21/20 16:56 Norepinephrine/Ns 8 Mg-250 Ml (Double Conc) IV 0 mcg/min TITRATE JOSE 0 mls/hr Titration Protocol 2 MCG/MIN Dobutamine HCl/Dextrose 500 mg in 250 mls @ 6.908 mls/hr 10/16/20 19:00 10/21/20 11:32 Dobutrex Drip 500mg/D5w 250ml IV 5 mcg/kg/min DIRECT JOSE 13.815 mls/hr Administration Protocol 2.5 MCG/KG/MIN Epinephrine 8 mg/ Sodium 250 mls @ 0 mls/hr 10/16/20 23:45 10/17/20 11:33 Chloride IV 0 mls/hr TITR JOSE Infusion Cefepime HCl 2 gm in 100 mls @ 200 mls/hr 10/17/20 22:00 10/21/20 23:13 Cefepime/Ns 2 Gm/100 Ml IV 10/22/20 22:29 200 mls/hr Q24H JOSE Administration Protocol Furosemide 100 mg/ Sodium 100 mls @ 5 mls/hr 10/21/20 08:00 10/22/20 07:50 Chloride IV 5 mls/hr TITR JOSE Administration As Directed Magnesium Hydroxide 30 ml 10/03/20 02:10 Magnesium Hydroxide (Mom) Oral Liqd Udc PO Q4H PRN Constipation Metoclopramide HCl 5 mg 10/17/20 09:00 Metoclopramide 10 Mg/2 Ml Inj IV Q6H PRN Nausea And Vomiting Ondansetron HCl 4 mg 10/03/20 02:10 10/07/20 23:19 Ondansetron 4 Mg/2 Ml Inj IV 4 mg Q8H PRN Administration Nausea And Vomiting Pantoprazole Sodium 40 mg 10/04/20 15:00 10/22/20 09:39 Pantoprazole 40 Mg Inj IV 40 mg QDAY JOSE Administration Potassium Chloride 40 meq 10/22/20 10:00 10/22/20 10:11 Potassium Chloride 20 Meq Packet FEEDTUBE 10/22/20 14:01 40 meq Q4H JOSE Administration Promethazine HCl 25 mg 10/03/20 02:10 Promethazine 25 Mg Rect Supp ME Q6H PRN N/V IF NPO AND NO IV ACCESS Senna 8.6 mg 10/03/20 02:10 Sennosides 8.6 Mg Tab PO Q12HR PRN Constipation Simple Syrup 15 ml 10/03/20 16:51 10/19/20 02:08 Simple Syrup 15 Ml FEEDTUBE 15 ml PRN PRN Administration Hypoglycemia Simple Syrup 30 ml 10/03/20 16:51 10/16/20 22:02 Simple Syrup 15 Ml FEEDTUBE 30 ml PRN PRN Administration Hypoglycemia Sodium Bicarbonate 325 mg 10/03/20 16:51 Sodium Bicarbonate 325 Mg Tab FEEDTUBE PRN PRN For Clogged Feeding Tube Nutrition/Malnutrition Assess - Dietary Evaluation Nutrition/Malnutrition Findings: Nutrition Notes Start: 10/03/20 08:51 Freq: Status: Active Protocol: Document 10/20/20 11:01 BETSY (Rec: 10/20/20 11:05 BETSY [id number]) Nutrition Notes Initial or Follow up Reassessment Current Diagnosis Diabetes Other Pertinent Diagnosis AMS, hypothermia, pneu, anemia , atherosclerotic cerebrovascular disease Current Diet Nepro 1.8 at 40 ml/hr Labs/Tests Na 119 BUN 35 Cr 3.3 Mg 1.3 Pertinent Medications Sodium Bicarb at 125 ml/hr Lasix Vasopressin Height 5 ft 10 in Weight 92.1 kg [place] Body Weight (kg) 75.45 BMI 29.1 Weight Status Overweight Subjective/Other Information TF turned back on this AM at 20 ml/hr. Burn Absent Trauma Absent Difficulty In Swallowing Current % PO Negligible Minimum of two criteria No Fluid Accumulation Moderate to Severe (severe) #1 Nutrition Diagnosis Swallowing difficulty Diagnosis Progress(for reassessment Continues documentation) Is patient on ventilator? No Is Patient Ambulatory and/or Out of Bed No REE-([facility]-confined to bed) 1993.892 Kcal/Kg value to use for calculation 20 Approximate Energy Requirements Using 1842 kcal/Kg Calculation Used for Recommendations Kcal/kg Additional Notes Protein: (1-1.2g/kg) 84-101g Fluid: 1 ml/kcal Nutrition Intervention Nutrition Support: Nepro at 40ml/hour. For hyponatremia flush 50 ml q4h, once resolved resume flush at 170 ml q4h Kcal 1,728 Protein (gm) 78 Fluid (mL) 698 Goal #1 Meet at least 75% of protein and energy needs via TF Anticipated Discharge Needs: continue TF regimen Follow-Up By: 10/23/20 Additional Comments F/u: TF at goal and tolerance
[2020-10-20] MEDS: CEFEPIME/NS 2 GM/100 ML 2 GM/100 ML BAG IV SCH (22:38)
[2020-10-21] MEDS ORDERED: SODIUM CHLORIDE 0.9% 500 ML 500 ML IV ONE (00:18)
[2020-10-21] MEDS: DEXTROSE 50% IN WATER (25GM) 50 ML SYRINGE IV PRN ×2 (01:03→17:39)
[2020-10-21] MEDS: D5W/0.9% NACL 1,000 ML IV SCH ×2 (02:34→17:12)
--- NOTE | 2020-10-21 05:23 | XRay Report ---
CHEST 1 VIEW 10/21/2020 4:45 AM INDICATION / CLINICAL INFORMATION: hypoxia. COMPARISON: 10/20/2020 FINDINGS: SUPPORT DEVICES: None. HEART / MEDIASTINUM: No significant abnormality. LUNGS / PLEURA: Diffuse opacities in bilateral lungs most significant in the right lower lung No pneu mothorax. Signer Name: Caden Fuchs MD Signed: 10/21/2020 5:19 AM Workstation Name: [id number]
[2020-10-21] MEDS: HYDROCORTISONE SOD SUCC 100 MG/2 ML VIAL IV SCH ×3 (06:33→17:12)
[2020-10-21] MEDS: FUROSEMIDE 40 MG/4 ML INJ IV SCH (06:33)
[2020-10-21 07:46] LABS: Hematocrit 23.9 % (35.5-45.6); Hemoglobin 7.9 gm/dl (11.8-15.2); Mean Corpuscular HGB Conc 33 % (32-34); Mean Corpuscular Volume 73 fl (84-94); Red Blood Count 3.27 M/mm3 (3.65-5.03)
[2020-10-21 07:53] LABS: Red Cell Distribution Width 31.8 % (13.2-15.2)
[2020-10-21 07:54] LABS: Calcium 7.8 mg/dL (8.4-10.2)
[2020-10-21] MEDS ORDERED: NORepinephrine/NS 4 MG-250 ML 4 MG/250 ML BAG IV ONE (09:15)
[2020-10-21 09:52] LABS: Platelet Count 26 K/mm3 (140-440)
--- NOTE | 2020-10-21 10:14 | Progress Note ---
Assessment and Plan Assessment and Plan Acute encephalopathy Hyponatremia Hypothermia, resolved Pulmonary infiltrate in right lung on CXR Atherosclerotic cerebrovascular disease Severe anemia -possible GI bleed Severe protein-calorie malnutrition Acute Renal Failure Hypokalemia Plan: Cr stable. Monitor. 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 Making some urine. Na hovering around 122. No salt tabs as have CHF. Echo done 10/04/20 showed LVEF 25-30%. On lasix drip. On Pressors for low BP. Avoid correction more than 8 mmol/l in 24 hours Acidosis improving. Renal US -ve for hydronephrosis. Avoid nephrotoxic agents Obtain daily weights Monitor I/O's daily Critical Care time: 35 minutes Subjective Date of service: 10/21/20 Principal diagnosis: Ac hypoxemic resp failure; Pneumonia; BETSY; Ac. encephalopathy Interval history: Intubated on Vent. Objective - Exam Narrative Exam: General appearance: sedated on ventilator, intubated EENT: PERRL, mucous membranes dry Neck: no JVD, no carotid bruit Respiratory: Present: Decreased Breath Sounds Cardiology: tachycardia Gastrointestinal: normoactive bowel sounds, no tenderness, no distended, no masses Integumentary: no rash, warm and dry Neurologic: other (intubate) Musculoskeletal: other (2-3+ pitting edema in BLE) - Vital Signs Vital signs: Vital Signs - 12hr 10/20/20 10/20/20 10/20/20 22:15 22:31 22:45 Temperature Pulse Rate 85 92 H 85 Pulse Rate [ From Monitor] Respiratory 30 H 22 30 H Rate Blood Pressure 135/68 135/68 124/67 O2 Sat by Pulse 96 94 94 Oximetry 10/20/20 10/20/20 10/20/20 23:00 23:15 23:19 Temperature Pulse Rate 93 H 93 H 91 H Pulse Rate [ From Monitor] Respiratory 30 H 31 H 30 H Rate Blood Pressure 127/71 137/75 137/75 O2 Sat by Pulse 93 95 96 Oximetry 10/20/20 10/20/20 10/21/20 23:30 23:45 00:00 Temperature Pulse Rate 93 H 98 H 99 H Pulse Rate [ 89 From Monitor] Respiratory 31 H 30 H 30 H Rate Blood Pressure 125/74 117/78 130/71 O2 Sat by Pulse 100 Oximetry 10/21/20 10/21/20 10/21/20 00:15 00:30 00:45 Temperature Pulse Rate 99 H 89 91 H Pulse Rate [ From Monitor] Respiratory 24 27 H 19 Rate Blood Pressure 139/77 129/71 124/70 O2 Sat by Pulse 93 Oximetry 10/21/20 10/21/20 10/21/20 01:01 01:15 01:30 Temperature Pulse Rate 89 143 H 92 H Pulse Rate [ From Monitor] Respiratory 30 H 16 28 H Rate Blood Pressure 111/38 139/77 115/46 O2 Sat by Pulse 97 99 99 Oximetry 10/21/20 10/21/20 10/21/20 01:46 02:00 02:15 Temperature Pulse Rate 89 87 88 Pulse Rate [ From Monitor] Respiratory 24 24 31 H Rate Blood Pressure 115/46 98/52 94/55 O2 Sat by Pulse 98 96 96 Oximetry 10/21/20 10/21/20 10/21/20 02:30 02:45 03:00 Temperature Pulse Rate 89 93 H 89 Pulse Rate [ From Monitor] Respiratory 30 H 30 H 27 H Rate Blood Pressure 103/64 100/55 105/55 O2 Sat by Pulse 98 98 98 Oximetry 10/21/20 10/21/20 10/21/20 03:15 03:30 03:45 Temperature Pulse Rate 96 H 93 H 100 H Pulse Rate [ From Monitor] Respiratory 30 H 19 23 Rate Blood Pressure 105/52 96/57 96/57 O2 Sat by Pulse 97 98 98 Oximetry 10/21/20 10/21/20 10/21/20 04:00 04:07 04:15 Temperature 98.4 F Pulse Rate 92 H 97 H 99 H Pulse Rate [ 94 H From Monitor] Respiratory 18 30 H Rate Blood Pressure 110/53 110/53 110/53 O2 Sat by Pulse 99 98 97 Oximetry 10/21/20 10/21/20 10/21/20 04:30 04:45 05:00 Temperature Pulse Rate 98 H 89 93 H Pulse Rate [ From Monitor] Respiratory 30 H 19 28 H Rate Blood Pressure 97/52 95/51 94/55 O2 Sat by Pulse 97 98 98 Oximetry 10/21/20 10/21/20 10/21/20 05:15 05:30 05:45 Temperature Pulse Rate 97 H 87 95 H Pulse Rate [ From Monitor] Respiratory 28 H 27 H 30 H Rate Blood Pressure 94/55 100/52 106/54 O2 Sat by Pulse 98 98 99 Oximetry 10/21/20 10/21/20 10/21/20 06:00 06:15 06:30 Temperature Pulse Rate 101 H 96 H 75 Pulse Rate [ From Monitor] Respiratory 29 H 30 H 30 H Rate Blood Pressure 104/59 108/58 122/70 O2 Sat by Pulse 99 98 100 Oximetry 10/21/20 10/21/20 06:45 08:00 Temperature 99.6 F Pulse Rate 104 H 100 H Pulse Rate [ From Monitor] Respiratory 30 H Rate Blood Pressure 122/70 126/64 O2 Sat by Pulse 99 100 Oximetry - Lab 10/21/20 05:50 10/21/20 05:50 Most recent lab results ABG pH 7.449 (7.320-7.450) 10/21/20 04:00 ABG O2 Saturation 93.2 (0-100) 10/21/20 04:00 Calcium 7.8 mg/dL (8.4-10.2) L 10/21/20 05:50 Phosphorus 2.60 mg/dL (2.5-4.5) D 10/21/20 05:50 Magnesium 1.60 mg/dL (1.7-2.3) L 10/21/20 05:50 Urine Creatinine 144.2 mg/dL (0.1-20.0) H 10/14/20 Unknown Urine Sodium 10 mmol/L 10/14/20 Unknown Urine Total Protein 97 mg/dL (5-11.8) H 10/14/20 Unknown Medications & Allergies - Medications Allergies/Adverse Reactions: Allergies No Known Allergies Allergy (Unverified 10/03/20 12:27) Home Medications: Home Medications Medication Instructions Recorded Confirmed Last Taken Type Unobtainable 10/10/20 10/10/20 Unknown History Active Medications: Generic Name Dose Route Start Last Admin Trade Name Freq PRN Reason Stop Dose Admin Acetaminophen 650 mg 10/03/20 02:10 10/06/20 15:28 Acetaminophen 325 Mg Tab PO 650 mg Q4H PRN Administration Pain MILD(1-3)/Fever >100.5/ROMERO Al Hydrox/Mg Hydrox/Simethicone 30 ml 10/03/20 02:10 Alum-Mag Hydroxide-Simethicone [id number]/5ml Oral Liqd 30 Ml PO Q4H PRN Indigestion Lipase/Protease/Amylase 1 each 10/03/20 16:51 Lipase 10,500/Protease 25,000/Amylase 43,750 (Units) Dr Cap FEEDTUBE PRN PRN For Clogged Feeding Tube Dextrose 50 ml 10/16/20 12:42 10/21/20 01:03 Dextrose 50% In Water (25gm) 50 Ml Syringe IV 50 ml Q30MIN PRN Administration Hypoglycemia Protocol Ferrous Sulfate 308 mg 10/16/20 10:00 10/20/20 09:19 Ferrous Sulfate 308 Mg (62mg Elemental Iron) / 7 Ml Elixir FEEDTUBE 308 mg DAILY JOSE Administration Folic Acid 1 mg 10/03/20 10:00 10/20/20 09:19 Folic Acid 1 Mg Tab PO 1 mg QDAY JOSE Administration Hydrocortisone Sodium Succinate 100 mg 10/19/20 18:00 10/21/20 06:33 Hydrocortisone Sod Succ 100 Mg/2 Ml Vial IV 100 mg Q8H JOSE Administration Levetiracetam 250 mg/ Dextrose 102.5 mls @ 400 mls/hr 10/10/20 22:00 10/20/20 22:38 IV 400 mls/hr Q12HR JOSE Administration Vasopressin 20 unit/ Sodium 101 mls @ 9.09 mls/hr 10/16/20 13:00 10/20/20 22:37 Chloride IV 0.03 units/min TITR JOSE 9.09 mls/hr Administration Protocol 0.03 UNITS/MIN Phenylephrine HCl 100 mg/ 100 mls @ 3 mls/hr 10/16/20 18:00 10/20/20 11:50 Sodium Chloride IV 0 mcg/min TITR JOSE 0 mls/hr Titration Protocol 50 MCG/MIN NORepinephrine/NS 8 MG-250 ML 8 mg in 250 mls @ 3.75 mls/hr 10/16/20 19:00 10/20/20 22:41 Norepinephrine/Ns 8 Mg-250 Ml (Double Conc) IV 8 mcg/min TITRATE JOSE 15 mls/hr Titration Protocol 2 MCG/MIN Dobutamine HCl/Dextrose 500 mg in 250 mls @ 6.908 mls/hr 10/16/20 19:00 10/20/20 04:00 Dobutrex Drip 500mg/D5w 250ml IV 5 mcg/kg/min DIRECT JOSE 13.815 mls/hr Administration Protocol 2.5 MCG/KG/MIN Epinephrine 8 mg/ Sodium 250 mls @ 0 mls/hr 10/16/20 23:45 10/17/20 11:33 Chloride IV 0 mls/hr TITR JOSE Infusion Cefepime HCl 2 gm in 100 mls @ 200 mls/hr 10/17/20 22:00 10/20/20 22:38 Cefepime/Ns 2 Gm/100 Ml IV 10/22/20 22:29 200 mls/hr Q24H JOSE Administration Protocol Dextrose/Sodium Chloride 1,000 mls @ 125 mls/hr 10/21/20 02:00 10/21/20 02:34 D5ns IV 125 mls/hr DIRECT JOSE Administration Furosemide 100 mg/ Sodium 100 mls @ 5 mls/hr 10/21/20 08:00 Chloride IV TITR JOSE As Directed Magnesium Hydroxide 30 ml 10/03/20 02:10 Magnesium Hydroxide (Mom) Oral Liqd Udc PO Q4H PRN Constipation Metoclopramide HCl 5 mg 10/17/20 09:00 Metoclopramide 10 Mg/2 Ml Inj IV Q6H PRN Nausea And Vomiting Ondansetron HCl 4 mg 10/03/20 02:10 10/07/20 23:19 Ondansetron 4 Mg/2 Ml Inj IV 4 mg Q8H PRN Administration Nausea And Vomiting Pantoprazole Sodium 40 mg 10/04/20 15:00 10/20/20 09:19 Pantoprazole 40 Mg Inj IV 40 mg QDAY JOSE Administration Promethazine HCl 25 mg 10/03/20 02:10 Promethazine 25 Mg Rect Supp NJ Q6H PRN N/V IF NPO AND NO IV ACCESS Senna 8.6 mg 10/03/20 02:10 Sennosides 8.6 Mg Tab PO Q12HR PRN Constipation Simple Syrup 15 ml 10/03/20 16:51 10/19/20 02:08 Simple Syrup 15 Ml FEEDTUBE 15 ml PRN PRN Administration Hypoglycemia Simple Syrup 30 ml 10/03/20 16:51 10/16/20 22:02 Simple Syrup 15 Ml FEEDTUBE 30 ml PRN PRN Administration Hypoglycemia Sodium Bicarbonate 325 mg 10/03/20 16:51 Sodium Bicarbonate 325 Mg Tab FEEDTUBE PRN PRN For Clogged Feeding Tube
[2020-10-21] MEDS ORDERED: POTASSIUM CHLORIDE 20 MEQ 20 MEQ/100 ML BAG IV ONE (11:00)
[2020-10-21] MEDS ORDERED: MAGNESIUM SULFATE 4 GM/100 ML BAG IV ONE (11:00)
[2020-10-21] MEDS: FUROSEMIDE 100 MG in SODIUM CHLORIDE 0.9% 90 ML IV SCH (11:31)
[2020-10-21] MEDS: DOBUTamine/D5W 500 MG/250 ML 500 MG/250 ML BAG IV SCH (11:32)
--- NOTE | 2020-10-21 11:32 | Progress Note ---
Assessment and Plan Acute hypoxemic respiratory failure Bilateral pneumonia Bilateral pleural effusions Bilateral pulmonary edema Acute kidney injury Acute encephalopathy Severe protein calorie malnutrition Oropharyngeal dysphagia Anemia that is microcytic Oropharyngeal dysphagia - no anticoagulation re: thrombocytopenia / anemia- supportive transfusions with platelets if Platelet count<20K. DIC work up negative. Possibly multifactorial - Continue amiodarone infusion -Stat Furosemide infusion and monitor hemodynamics, renal function, urine output and electrolyte profile - continue Dobutamine till off vasopressors - titrate vasopressor to keep MAP > 65 mmHg -Remains hypothermic requiring external warming - VAP bundle addressed, aspiration precautions (HOB > 40 degrees) -Titrate supplemental oxygen to keep SpO2 88-90% - sedation target RASS 0 to -1 - start SAT and SBT in the morning - continue glycemic control for target BG 140-180 mg while critically ill; avoid hypoglycema - bronchodilators with pulmonary hygiene per RT - Antibiotics per ID, de-escalate based on culture data and clinical response - avoid nephrotoxins, renally dose all medications - prn analgesia per pain score - Maintenance of sleep-wake cycle, avoid delirium - supportive transfusions for serum Hgb < 7.0g/dl -Enteric nutritional support - Stress ulcer prophylaxis - continue mobility , off loading, frequent turning per facility protocols for pressure ulcer prevention - Monitor hemodynamics closely - continue other care per attending / other consultants COVID SPECIFIC INTERVENTIONS - COVID-19 test negative CONDITION: CRITICAL PROGNOSIS: GUARDED CODE STATUS: FULL CODE The high probability of a clinically significant, sudden or life-threatening deterioration of the [respiratory, cardiovascular, & neurologic] system(s) required my full and direct attention, intervention and personal management. The aggregate critical care time was [33] minutes without overlap. Time includes spent on; [x] Data Review and interpretation [x] Patient assessment and monitoring of vital signs [x] Documentation [x] Medication orders and management Subjective Date of service: 10/21/20 Principal diagnosis: Ac hypoxemic resp failure; Pneumonia; BETSY; Ac. enceph alopathy Interval history: Patient is seen today for: Acute hypoxemic respiratory failure; Pneumonia; Pleural effusions; BETSY; Acute encephalopathy; Severe protein calorie malnutrition Seen and examined at bedside; 24hour events reviewed; nursing and respiratory care staff consulted; no adverse overnight events reported to me; resting in bed; remains on MVS- low settings; blood pressure is better weaning off vasopressors while on stress dose steroids; dobutamine remains at fixed dose of 2. 5 mcg/min emesis; on intermittent dosing Furosemide, without much of a response Objective Vital Signs - 12hr 10/20/20 10/21/20 10/21/20 23:45 00:00 00:15 Temperature Pulse Rate 98 H 99 H 99 H Pulse Rate [ 89 From Monitor] Respiratory 30 H 30 H 24 Rate Blood Pressure 117/78 130/71 139/77 O2 Sat by Pulse 100 Oximetry 10/21/20 10/21/20 10/21/20 00:30 00:45 01:01 Temperature Pulse Rate 89 91 H 89 Pulse Rate [ From Monitor] Respiratory 27 H 19 30 H Rate Blood Pressure 129/71 124/70 111/38 O2 Sat by Pulse 93 97 Oximetry 10/21/20 10/21/20 10/21/20 01:15 01:30 01:46 Temperature Pulse Rate 143 H 92 H 89 Pulse Rate [ From Monitor] Respiratory 16 28 H 24 Rate Blood Pressure 139/77 115/46 115/46 O2 Sat by Pulse 99 99 98 Oximetry 10/21/20 10/21/20 10/21/20 02:00 02:15 02:30 Temperature Pulse Rate 87 88 89 Pulse Rate [ From Monitor] Respiratory 24 31 H 30 H Rate Blood Pressure 98/52 94/55 103/64 O2 Sat by Pulse 96 96 98 Oximetry 10/21/20 10/21/20 10/21/20 02:45 03:00 03:15 Temperature Pulse Rate 93 H 89 96 H Pulse Rate [ From Monitor] Respiratory 30 H 27 H 30 H Rate Blood Pressure 100/55 105/55 105/52 O2 Sat by Pulse 98 98 97 Oximetry 10/21/20 10/21/20 10/21/20 03:30 03:45 04:00 Temperature 98.4 F Pulse Rate 93 H 100 H 92 H Pulse Rate [ 94 H From Monitor] Respiratory 19 23 18 Rate Blood Pressure 96/57 96/57 110/53 O2 Sat by Pulse 98 98 99 Oximetry 10/21/20 10/21/20 10/21/20 04:07 04:15 04:30 Temperature Pulse Rate 97 H 99 H 98 H Pulse Rate [ From Monitor] Respiratory 30 H 30 H Rate Blood Pressure 110/53 110/53 97/52 O2 Sat by Pulse 98 97 97 Oximetry 10/21/20 10/21/20 10/21/20 04:45 05:00 05:15 Temperature Pulse Rate 89 93 H 97 H Pulse Rate [ From Monitor] Respiratory 19 28 H 28 H Rate Blood Pressure 95/51 94/55 94/55 O2 Sat by Pulse 98 98 98 Oximetry 10/21/20 10/21/20 10/21/20 05:30 05:45 06:00 Temperature Pulse Rate 87 95 H 101 H Pulse Rate [ From Monitor] Respiratory 27 H 30 H 29 H Rate Blood Pressure 100/52 106/54 104/59 O2 Sat by Pulse 98 99 99 Oximetry 10/21/20 10/21/20 10/21/20 06:15 06:30 06:45 Temperature Pulse Rate 96 H 75 104 H Pulse Rate [ From Monitor] Respiratory 30 H 30 H 30 H Rate Blood Pressure 108/58 122/70 122/70 O2 Sat by Pulse 98 100 99 Oximetry 10/21/20 08:00 Temperature 99.6 F Pulse Rate 100 H Pulse Rate [ From Monitor] Respiratory Rate Blood Pressure 126/64 O2 Sat by Pulse 100 Oximetry Constitutional: appears uncomfortable, other (elderly and chronically ill looking male with mildly increased respiratory effort at rest on MVS) Eyes: non-icteric ENT: oropharynx dry, other (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) Neck: supple, no lymphadenopathy, no JVD Effort: mildly labored Ascultation: Bilateral: diminished breath sounds, rhonchi Percussion: Bilateral: not dull Cardiovascular: irregular rhythm (irregularly irregular), other (S1,S2) Gastrointestinal: normoactive bowel sounds Integumentary: normal Extremities: no cyanosis, pulses normal, no ischemia or petechiae, edema (1+) Neurologic: pupils equal and round, unable to assess Psychiatric: other (unable to assess re: AMS) CBC and BMP: 10/22/20 06:00 10/22/20 02:43 ABG, PT/INR, D-dimer: ABG ABG pH 7.449 (7.320-7.450) 10/21/20 04:00 POC ABG pCO2 32.5 mmHg (32.0-48.0) 10/21/20 04:00 POC ABG pO2 66.6 mmHg (83-108) L 10/21/20 04:00 POC ABG HCO3 22.0 10/21/20 04:00 ABG O2 Saturation 93.2 (0-100) 10/21/20 04:00 PT/INR, D-dimer PT 30.1 Sec. (12.2-14.9) H 10/20/20 08:43 INR 2.82 (0.87-1.13) H 10/20/20 08:43 Abnormal lab findings: Abnormal Labs 10/02/20 10/02/20 10/02/20 23:17 23:17 23:17 WBC RBC 3.31 L Hgb 6.7 L Hct 21.8 L MCV 66 L MCH 20 L MCHC 31 L RDW 31.7 H Plt Count Glynn % (Auto) Glynn # (Auto) Seg Neutrophils % Seg Neuts % (Manual) 79.0 H Lymphocytes % (Manual) 11.0 L Monocytes % (Manual) 10.0 H Basophils % (Manual) Nucleated RBC % Seg Neutrophils # Seg Neutrophils # Man Lymphocytes # (Manual) 0.9 L Monocytes # (Manual) Basophils # (Manual) PT 20.8 H INR 1.74 H APTT 57.6 H ABG pH POC ABG pCO2 POC ABG pO2 ABG Hemoglobin ABG Oxyhemoglobin ABG Sodium ABG Potassium ABG Chloride ABG Glucose Sodium Potassium Chloride Carbon Dioxide BUN Creatinine Glucose 42 L POC Glucose Lactic Acid Calcium Magnesium Iron Total Bilirubin Direct Bilirubin AST ALT Alkaline Phosphatase Ammonia CK-MB (CK-2) 7.5 H CK-MB (CK-2) Rel Index 8.5 H Total Protein Albumin 2.9 L Arterial Blood Glucose Arterial Blood Ionized Calcium Urine Creatinine Urine Total Protein Salicylates Acetaminophen Crossmatch 10/02/20 10/02/20 10/02/20 23:17 23:17 23:17 WBC RBC Hgb Hct MCV MCH MCHC RDW Plt Count Glynn % (Auto) Glynn # (Auto) Seg Neutrophils % Seg Neuts % (Manual) Lymphocytes % (Manual) Monocytes % (Manual) Basophils % (Manual) Nucleated RBC % Seg Neutrophils # Seg Neutrophils # Man Lymphocytes # (Manual) Monocytes # (Manual) Basophils # (Manual) PT INR APTT ABG pH POC ABG pCO2 POC ABG pO2 ABG Hemoglobin ABG Oxyhemoglobin ABG Sodium ABG Potassium ABG Chloride ABG Glucose Sodium Potassium Chloride Carbon Dioxide BUN Creatinine Glucose POC Glucose Lactic Acid 2.20 H* Calcium Magnesium Iron Total Bilirubin Direct Bilirubin AST ALT Alkaline Phosphatase Ammonia 22.0 L CK-MB (CK-2) CK-MB (CK-2) Rel Index Total Protein Albumin Arterial Blood Glucose Arterial Blood Ionized Calcium Urine Creatinine Urine Total Protein Salicylates < 0.3 L Acetaminophen Crossmatch 10/02/20 10/03/20 10/03/20 23:17 05:57 05:57 WBC RBC 2.66 L Hgb 5.3 L* Hct 17.8 L* MCV 67 L MCH 20 L MCHC 30 L RDW 32.1 H Plt Count Glynn % (Auto) Glynn # (Auto) Seg Neutrophils % Seg Neuts % (Manual) Lymphocytes % (Manual) 2.0 L Monocytes % (Manual) Basophils % (Manual) Nucleated RBC % 1.0 H Seg Neutrophils # Seg Neutrophils # Man 8.6 H Lymphocytes # (Manual) 0.2 L Monocytes # (Manual) Basophils # (Manual) PT INR APTT ABG pH POC ABG pCO2 POC ABG pO2 ABG Hemoglobin ABG Oxyhemoglobin ABG Sodium ABG Potassium ABG Chloride ABG Glucose Sodium Potassium Chloride Carbon Dioxide BUN Creatinine Glucose POC Glucose Lactic Acid Calcium Magnesium Iron Total Bilirubin Direct Bilirubin AST ALT Alkaline Phosphatase Ammonia CK-MB (CK-2) CK-MB (CK-2) Rel Index Total Protein Albumin Arterial Blood Glucose Arterial Blood Ionized Calcium Urine Creatinine Urine Total Protein Salicylates Acetaminophen 5.0 L Crossmatch See Detail 10/03/20 10/03/20 10/03/20 05:57 05:57 06:00 WBC RBC Hgb Hct MCV MCH MCHC RDW Plt Count Glynn % (Auto) Glynn # (Auto) Seg Neutrophils % Seg Neuts % (Manual) Lymphocytes % (Manual) Monocytes % (Manual) Basophils % (Manual) Nucleated RBC % Seg Neutrophils # Seg Neutrophils # Man Lymphocytes # (Manual) Monocytes # (Manual) Basophils # (Manual) PT INR APTT ABG pH POC ABG pCO2 POC ABG pO2 ABG Hemoglobin ABG Oxyhemoglobin ABG Sodium ABG Potassium ABG Chloride ABG Glucose Sodium Potassium Chloride Carbon Dioxide BUN Creatinine Glucose 52 L POC Glucose 31 L Lactic Acid Calcium Magnesium Iron 42 L Total Bilirubin Direct Bilirubin AST ALT Alkaline Phosphatase Ammonia CK-MB (CK-2) CK-MB (CK-2) Rel Index Total Protein 5.8 L Albumin 3.1 L Arterial Blood Glucose Arterial Blood Ionized Calcium Urine Creatinine Urine Total Protein Salicylates Acetaminophen Crossmatch 10/03/20 10/03/20 10/03/20 07:34 09:43 10:57 WBC RBC Hgb Hct MCV MCH MCHC RDW Plt Count Glynn % (Auto) Glynn # (Auto) Seg Neutrophils % Seg Neuts % (Manual) Lymphocytes % (Manual) Monocytes % (Manual) Basophils % (Manual) Nucleated RBC % Seg Neutrophils # Seg Neutrophils # Man Lymphocytes # (Manual) Monocytes # (Manual) Basophils # (Manual) PT INR APTT ABG pH POC ABG pCO2 POC ABG pO2 ABG Hemoglobin ABG Oxyhemoglobin ABG Sodium ABG Potassium ABG Chloride ABG Glucose Sodium Potassium Chloride Carbon Dioxide BUN Creatinine Glucose POC Glucose 59 L 41 L 31 L Lactic Acid Calcium Magnesium Iron Total Bilirubin Direct Bilirubin AST ALT Alkaline Phosphatase Ammonia CK-MB (CK-2) CK-MB (CK-2) Rel Index Total Protein Albumin Arterial Blood Glucose Arterial Blood Ionized Calcium Urine Creatinine Urine Total Protein Salicylates Acetaminophen Crossmatch 10/03/20 10/03/20 10/03/20 11:21 12:00 12:14 WBC RBC Hgb Hct MCV MCH MCHC RDW Plt Count Glynn % (Auto) Glynn # (Auto) Seg Neutrophils % Seg Neuts % (Manual) Lymphocytes % (Manual) Monocytes % (Manual) Basophils % (Manual) Nucleated RBC % Seg Neutrophils # Seg Neutrophils # Man Lymphocytes # (Manual) Monocytes # (Manual) Basophils # (Manual) PT INR APTT ABG pH POC ABG pCO2 POC ABG pO2 ABG Hemoglobin ABG Oxyhemoglobin ABG Sodium ABG Potassium ABG Chloride ABG Glucose Sodium Potassium Chloride Carbon Dioxide BUN Creatinine Glucose POC Glucose 62 L 26 L 140 H Lactic Acid Calcium Magnesium Iron Total Bilirubin Direct Bilirubin AST ALT Alkaline Phosphatase Ammonia CK-MB (CK-2) CK-MB (CK-2) Rel Index Total Protein Albumin Arterial Blood Glucose Arterial Blood Ionized Calcium Urine Creatinine Urine Total Protein Salicylates Acetaminophen Crossmatch 10/03/20 10/03/20 10/03/20 13:33 14:19 14:59 WBC RBC Hgb Hct MCV MCH MCHC RDW Plt Count Glynn % (Auto) Glynn # (Auto) Seg Neutrophils % Seg Neuts % (Manual) Lymphocytes % (Manual) Monocytes % (Manual) Basophils % (Manual) Nucleated RBC % Seg Neutrophils # Seg Neutrophils # Man Lymphocytes # (Manual) Monocytes # (Manual) Basophils # (Manual) PT INR APTT ABG pH POC ABG pCO2 POC ABG pO2 ABG Hemoglobin ABG Oxyhemoglobin ABG Sodium ABG Potassium ABG Chloride ABG Glucose Sodium Potassium Chloride Carbon Dioxide BUN Creatinine Glucose POC Glucose 24 L 59 L 40 L Lactic Acid Calcium Magnesium Iron Total Bilirubin Direct Bilirubin AST ALT Alkaline Phosphatase Ammonia CK-MB (CK-2) CK-MB (CK-2) Rel Index Total Protein Albumin Arterial Blood Glucose Arterial Blood Ionized Calcium Urine Creatinine Urine Total Protein Salicylates Acetaminophen Crossmatch 10/03/20 10/03/20 10/03/20 15:26 15:57 16:35 WBC RBC Hgb Hct MCV MCH MCHC RDW Plt Count Glynn % (Auto) Glynn # (Auto) Seg Neutrophils % Seg Neuts % (Manual) Lymphocytes % (Manual) Monocytes % (Manual) Basophils % (Manual) Nucleated RBC % Seg Neutrophils # Seg Neutrophils # Man Lymphocytes # (Manual) Monocytes # (Manual) Basophils # (Manual) PT INR APTT ABG pH POC ABG pCO2 POC ABG pO2 ABG Hemoglobin ABG Oxyhemoglobin ABG Sodium ABG Potassium ABG Chloride ABG Glucose Sodium Potassium Chloride Carbon Dioxide BUN Creatinine Glucose POC Glucose 54 L 45 L 42 L Lactic Acid Calcium Magnesium Iron Total Bilirubin Direct Bilirubin AST ALT Alkaline Phosphatase Ammonia CK-MB (CK-2) CK-MB (CK-2) Rel Index Total Protein Albumin Arterial Blood Glucose Arterial Blood Ionized Calcium Urine Creatinine Urine Total Protein Salicylates Acetaminophen Crossmatch 10/03/20 10/03/20 10/03/20 17:16 18:37 19:56 WBC RBC Hgb Hct MCV MCH MCHC RDW Plt Count Glynn % (Auto) Glynn # (Auto) Seg Neutrophils % Seg Neuts % (Manual) Lymphocytes % (Manual) Monocytes % (Manual) Basophils % (Manual) Nucleated RBC % Seg Neutrophils # Seg Neutrophils # Man Lymphocytes # (Manual) Monocytes # (Manual) Basophils # (Manual) PT INR APTT ABG pH POC ABG pCO2 POC ABG pO2 ABG Hemoglobin ABG Oxyhemoglobin ABG Sodium ABG Potassium ABG Chloride ABG Glucose Sodium Potassium Chloride Carbon Dioxide BUN Creatinine Glucose POC Glucose 41 L 46 L 57 L Lactic Acid Calcium Magnesium Iron Total Bilirubin Direct Bilirubin AST ALT Alkaline Phosphatase Ammonia CK-MB (CK-2) CK-MB (CK-2) Rel Index Total Protein Albumin Arterial Blood Glucose Arterial Blood Ionized Calcium Urine Creatinine Urine Total Protein Salicylates Acetaminophen Crossmatch 10/03/20 10/04/20 10/04/20 21:32 01:04 01:11 WBC RBC Hgb 9.6 L D Hct 28.3 L D MCV MCH MCHC RDW Plt Count Glynn % (Auto) Glynn # (Auto) Seg Neutrophils % Seg Neuts % (Manual) Lymphocytes % (Manual) Monocytes % (Manual) Basophils % (Manual) Nucleated RBC % Seg Neutrophils # Seg Neutrophils # Man Lymphocytes # (Manual) Monocytes # (Manual) Basophils # (Manual) PT INR APTT ABG pH POC ABG pCO2 POC ABG pO2 ABG Hemoglobin ABG Oxyhemoglobin ABG Sodium ABG Potassium ABG Chloride ABG Glucose Sodium Potassium Chloride Carbon Dioxide BUN Creatinine Glucose POC Glucose 65 L 51 L Lactic Acid Calcium Magnesium Iron Total Bilirubin Direct Bilirubin AST ALT Alkaline Phosphatase Ammonia CK-MB (CK-2) CK-MB (CK-2) Rel Index Total Protein Albumin Arterial Blood Glucose Arterial Blood Ionized Calcium Urine Creatinine Urine Total Protein Salicylates Acetaminophen Crossmatch 10/04/20 10/04/20 10/04/20 05:59 05:59 15:10 WBC 13.4 H RBC Hgb 9.9 L 10.1 L Hct 32.0 L 31.8 L MCV 76 L MCH 24 L MCHC 31 L RDW 31.3 H Plt Count Glynn % (Auto) Glynn # (Auto) Seg Neutrophils % Seg Neuts % (Manual) 86.0 H Lymphocytes % (Manual) 6.0 L Monocytes % (Manual) 8.0 H Basophils % (Manual) Nucleated RBC % 2.0 H Seg Neutrophils # Seg Neutrophils # Man 11.5 H Lymphocytes # (Manual) 0.8 L Monocytes # (Manual) 1.1 H Basophils # (Manual) PT INR APTT ABG pH POC ABG pCO2 POC ABG pO2 ABG Hemoglobin ABG Oxyhemoglobin ABG Sodium ABG Potassium ABG Chloride ABG Glucose Sodium 136 L Potassium 3.5 L Chloride Carbon Dioxide 19 L D BUN Creatinine Glucose POC Glucose Lactic Acid Calcium Magnesium Iron Total Bilirubin Direct Bilirubin AST ALT Alkaline Phosphatase Ammonia CK-MB (CK-2) CK-MB (CK-2) Rel Index Total Protein Albumin 2.6 L Arterial Blood Glucose Arterial Blood Ionized Calcium Urine Creatinine Urine Total Protein Salicylates Acetaminophen Crossmatch 10/04/20 10/04/20 10/05/20 16:28 22:33 04:43 WBC RBC Hgb 10.5 L Hct 32.5 L MCV MCH MCHC RDW Plt Count Glynn % (Auto) Glynn # (Auto) Seg Neutrophils % Seg Neuts % (Manual) Lymphocytes % (Manual) Monocytes % (Manual) Basophils % (Manual) Nucleated RBC % Seg Neutrophils # Seg Neutrophils # Man Lymphocytes # (Manual) Monocytes # (Manual) Basophils # (Manual) PT INR APTT ABG pH POC ABG pCO2 POC ABG pO2 ABG Hemoglobin ABG Oxyhemoglobin ABG Sodium ABG Potassium ABG Chloride ABG Glucose Sodium Potassium Chloride Carbon Dioxide BUN Creatinine Glucose POC Glucose 66 L 113 H Lactic Acid Calcium Magnesium Iron Total Bilirubin Direct Bilirubin AST ALT Alkaline Phosphatase Ammonia CK-MB (CK-2) CK-MB (CK-2) Rel Index Total Protein Albumin Arterial Blood Glucose Arterial Blood Ionized Calcium Urine Creatinine Urine Total Protein Salicylates Acetaminophen Crossmatch 10/05/20 10/05/20 10/05/20 05:00 09:42 11:57 WBC RBC Hgb 9.8 L Hct 30.5 L MCV 74 L MCH 24 L MCHC RDW 31.6 H Plt Count Glynn % (Auto) Glynn # (Auto) Seg Neutrophils % Seg Neuts % (Manual) Lymphocytes % (Manual) Monocytes % (Manual) Basophils % (Manual) Nucleated RBC % Seg Neutrophils # Seg Neutrophils # Man Lymphocytes # (Manual) Monocytes # (Manual) Basophils # (Manual) PT INR APTT ABG pH POC ABG pCO2 POC ABG pO2 ABG Hemoglobin ABG Oxyhemoglobin ABG Sodium ABG Potassium ABG Chloride ABG Glucose Sodium 132 L Potassium 3.5 L Chloride Carbon Dioxide 19 L BUN Creatinine 0.7 L Glucose POC Glucose 129 H Lactic Acid Calcium Magnesium Iron Total Bilirubin Direct Bilirubin AST ALT Alkaline Phosphatase Ammonia CK-MB (CK-2) CK-MB (CK-2) Rel Index Total Protein Albumin Arterial Blood Glucose Arterial Blood Ionized Calcium Urine Creatinine Urine Total Protein Salicylates Acetaminophen Crossmatch 10/05/20 10/05/20 10/06/20 16:47 21:51 05:07 WBC RBC Hgb 9.4 L Hct 30.1 L MCV 76 L MCH 24 L MCHC 31 L RDW 31.1 H Plt Count Glynn % (Auto) Glynn # (Auto) Seg Neutrophils % Seg Neuts % (Manual) Lymphocytes % (Manual) Monocytes % (Manual) Basophils % (Manual) Nucleated RBC % Seg Neutrophils # Seg Neutrophils # Man Lymphocytes # (Manual) Monocytes # (Manual) Basophils # (Manual) PT INR APTT ABG pH POC ABG pCO2 POC ABG pO2 ABG Hemoglobin ABG Oxyhemoglobin ABG Sodium ABG Potassium ABG Chloride ABG Glucose Sodium Potassium Chloride Carbon Dioxide BUN Creatinine Glucose POC Glucose 132 H 115 H Lactic Acid Calcium Magnesium Iron Total Bilirubin Direct Bilirubin AST ALT Alkaline Phosphatase Ammonia CK-MB (CK-2) CK-MB (CK-2) Rel Index Total Protein Albumin Arterial Blood Glucose Arterial Blood Ionized Calcium Urine Creatinine Urine Total Protein Salicylates Acetaminophen Crossmatch 10/06/20 10/06/20 10/06/20 05:07 15:37 21:01 WBC RBC Hgb Hct MCV MCH MCHC RDW Plt Count Glynn % (Auto) Glynn # (Auto) Seg Neutrophils % Seg Neuts % (Manual) Lymphocytes % (Manual) Monocytes % (Manual) Basophils % (Manual) Nucleated RBC % Seg Neutrophils # Seg Neutrophils # Man Lymphocytes # (Manual) Monocytes # (Manual) Basophils # (Manual) PT INR APTT ABG pH POC ABG pCO2 POC ABG pO2 ABG Hemoglobin ABG Oxyhemoglobin ABG Sodium ABG Potassium ABG Chloride ABG Glucose Sodium 133 L Potassium 3.5 L Chloride Carbon Dioxide 21 L BUN Creatinine 0.6 L Glucose 105 H POC Glucose 136 H 108 H Lactic Acid Calcium Magnesium Iron Total Bilirubin Direct Bilirubin AST ALT Alkaline Phosphatase Ammonia CK-MB (CK-2) CK-MB (CK-2) Rel Index Total Protein Albumin Arterial Blood Glucose Arterial Blood Ionized Calcium Urine Creatinine Urine Total Protein Salicylates Acetaminophen Crossmatch 10/07/20 10/07/20 10/07/20 04:52 04:52 06:07 WBC RBC Hgb 9.6 L Hct 29.4 L MCV 73 L MCH 24 L MCHC RDW 32.2 H Plt Count Glynn % (Auto) Glynn # (Auto) Seg Neutrophils % Seg Neuts % (Manual) Lymphocytes % (Manual) Monocytes % (Manual) Basophils % (Manual) Nucleated RBC % Seg Neutrophils # Seg Neutrophils # Man Lymphocytes # (Manual) Monocytes # (Manual) Basophils # (Manual) PT INR APTT ABG pH POC ABG pCO2 POC ABG pO2 ABG Hemoglobin ABG Oxyhemoglobin ABG Sodium ABG Potassium ABG Chloride ABG Glucose Sodium 128 L Potassium Chloride Carbon Dioxide 20 L BUN Creatinine 0.7 L Glucose POC Glucose 110 H Lactic Acid Calcium Magnesium Iron Total Bilirubin Direct Bilirubin AST ALT Alkaline Phosphatase Ammonia CK-MB (CK-2) CK-MB (CK-2) Rel Index Total Protein Albumin Arterial Blood Glucose Arterial Blood Ionized Calcium Urine Creatinine Urine Total Protein Salicylates Acetaminophen Crossmatch 10/07/20 10/07/20 10/07/20 17:09 18:53 20:35 WBC RBC Hgb Hct MCV MCH MCHC RDW Plt Count Glynn % (Auto) Glynn # (Auto) Seg Neutrophils % Seg Neuts % (Manual) Lymphocytes % (Manual) Monocytes % (Manual) Basophils % (Manual) Nucleated RBC % Seg Neutrophils # Seg Neutrophils # Man Lymphocytes # (Manual) Monocytes # (Manual) Basophils # (Manual) PT INR APTT ABG pH POC ABG pCO2 POC ABG pO2 ABG Hemoglobin ABG Oxyhemoglobin ABG Sodium ABG Potassium ABG Chloride ABG Glucose Sodium Potassium Chloride Carbon Dioxide BUN Creatinine Glucose POC Glucose 67 L 66 L 62 L Lactic Acid Calcium Magnesium Iron Total Bilirubin Direct Bilirubin AST ALT Alkaline Phosphatase Ammonia CK-MB (CK-2) CK-MB (CK-2) Rel Index Total Protein Albumin Arterial Blood Glucose Arterial Blood Ionized Calcium Urine Creatinine Urine Total Protein Salicylates Acetaminophen Crossmatch 10/07/20 10/08/20 10/08/20 21:55 05:00 05:00 WBC RBC Hgb 9.6 L Hct 29.4 L MCV 73 L MCH 24 L MCHC RDW 32.4 H Plt Count Glynn % (Auto) Glynn # (Auto) Seg Neutrophils % 80.6 H Seg Neuts % (Manual) 88.0 H Lymphocytes % (Manual) 9.0 L Monocytes % (Manual) Basophils % (Manual) Nucleated RBC % 5.0 H Seg Neutrophils # Seg Neutrophils # Man Lymphocytes # (Manual) 0.5 L Monocytes # (Manual) Basophils # (Manual) PT INR APTT ABG pH POC ABG pCO2 POC ABG pO2 ABG Hemoglobin ABG Oxyhemoglobin ABG Sodium ABG Potassium ABG Chloride ABG Glucose Sodium 126 L Potassium Chloride 96.3 L Carbon Dioxide BUN Creatinine 0.7 L Glucose POC Glucose 132 H Lactic Acid Calcium Magnesium Iron Total Bilirubin Direct Bilirubin AST ALT Alkaline Phosphatase Ammonia CK-MB (CK-2) CK-MB (CK-2) Rel Index Total Protein Albumin Arterial Blood Glucose Arterial Blood Ionized Calcium Urine Creatinine Urine Total Protein Salicylates Acetaminophen Crossmatch 10/08/20 10/09/20 10/09/20 22:26 01:36 02:22 WBC RBC Hgb Hct MCV MCH MCHC RDW Plt Count Glynn % (Auto) Glynn # (Auto) Seg Neutrophils % Seg Neuts % (Manual) Lymphocytes % (Manual) Monocytes % (Manual) Basophils % (Manual) Nucleated RBC % Seg Neutrophils # Seg Neutrophils # Man Lymphocytes # (Manual) Monocytes # (Manual) Basophils # (Manual) PT INR APTT ABG pH POC ABG pCO2 POC ABG pO2 ABG Hemoglobin ABG Oxyhemoglobin ABG Sodium ABG Potassium ABG Chloride ABG Glucose Sodium Potassium Chloride Carbon Dioxide BUN Creatinine Glucose POC Glucose 63 L 62 L 151 H Lactic Acid Calcium Magnesium Iron Total Bilirubin Direct Bilirubin AST ALT Alkaline Phosphatase Ammonia CK-MB (CK-2) CK-MB (CK-2) Rel Index Total Protein Albumin Arterial Blood Glucose Arterial Blood Ionized Calcium Urine Creatinine Urine Total Protein Salicylates Acetaminophen Crossmatch 10/09/20 10/09/20 10/09/20 05:07 05:42 06:32 WBC RBC Hgb 10.3 L Hct 33.8 L MCV 77 L MCH 24 L MCHC 31 L RDW 33.6 H Plt Count 137 L Glynn % (Auto) Glynn # (Auto) Seg Neutrophils % Seg Neuts % (Manual) 89.0 H Lymphocytes % (Manual) 5.0 L Monocytes % (Manual) Basophils % (Manual) Nucleated RBC % 4.0 H Seg Neutrophils # Seg Neutrophils # Man 9.4 H Lymphocytes # (Manual) 0.5 L Monocytes # (Manual) Basophils # (Manual) PT INR APTT ABG pH POC ABG pCO2 POC ABG pO2 ABG Hemoglobin ABG Oxyhemoglobin ABG Sodium ABG Potassium ABG Chloride ABG Glucose Sodium 126 L Potassium Chloride 97.8 L Carbon Dioxide 20 L BUN Creatinine Glucose 58 L POC Glucose 48 L Lactic Acid Calcium Magnesium Iron Total Bilirubin Direct Bilirubin AST ALT Alkaline Phosphatase Ammonia CK-MB (CK-2) CK-MB (CK-2) Rel Index Total Protein Albumin Arterial Blood Glucose Arterial Blood Ionized Calcium Urine Creatinine Urine Total Protein Salicylates Acetaminophen Crossmatch 10/09/20 10/10/20 10/10/20 06:35 00:21 05:53 WBC RBC Hgb Hct MCV MCH MCHC RDW Plt Count Glynn % (Auto) Glynn # (Auto) Seg Neutrophils % Seg Neuts % (Manual) Lymphocytes % (Manual) Monocytes % (Manual) Basophils % (Manual) Nucleated RBC % Seg Neutrophils # Seg Neutrophils # Man Lymphocytes # (Manual) Monocytes # (Manual) Basophils # (Manual) PT INR APTT ABG pH POC ABG pCO2 POC ABG pO2 ABG Hemoglobin ABG Oxyhemoglobin ABG Sodium ABG Potassium ABG Chloride ABG Glucose Sodium Potassium Chloride Carbon Dioxide BUN Creatinine Glucose POC Glucose 106 H 153 H 34 L Lactic Acid Calcium Magnesium Iron Total Bilirubin Direct Bilirubin AST ALT Alkaline Phosphatase Ammonia CK-MB (CK-2) CK-MB (CK-2) Rel Index Total Protein Albumin Arterial Blood Glucose Arterial Blood Ionized Calcium Urine Creatinine Urine Total Protein Salicylates Acetaminophen Crossmatch 10/10/20 10/10/20 10/10/20 10:58 10:58 12:39 WBC RBC Hgb 10.3 L Hct 33.9 L MCV 78 L MCH 24 L MCHC 30 L RDW 33.2 H Plt Count 135 L Glynn % (Auto) Glynn # (Auto) Seg Neutrophils % Seg Neuts % (Manual) 74.0 H Lymphocytes % (Manual) 12.0 L Monocytes % (Manual) 9.0 H Basophils % (Manual) 2.0 H Nucleated RBC % Seg Neutrophils # Seg Neutrophils # Man Lymphocytes # (Manual) 1.0 L Monocytes # (Manual) Basophils # (Manual) 0.2 H PT INR APTT ABG pH POC ABG pCO2 POC ABG pO2 ABG Hemoglobin ABG Oxyhemoglobin ABG Sodium ABG Potassium ABG Chloride ABG Glucose Sodium 127 L Potassium Chloride Carbon Dioxide 20 L BUN 23 H Creatinine Glucose POC Glucose 108 H Lactic Acid Calcium Magnesium Iron Total Bilirubin Direct Bilirubin AST ALT Alkaline Phosphatase Ammonia CK-MB (CK-2) CK-MB (CK-2) Rel Index Total Protein Albumin Arterial Blood Glucose Arterial Blood Ionized Calcium Urine Creatinine Urine Total Protein Salicylates Acetaminophen Crossmatch 10/10/20 10/11/20 10/11/20 16:51 04:56 05:51 WBC RBC Hgb 9.5 L Hct 31.3 L MCV 77 L MCH 23 L MCHC 30 L RDW 33.7 H Plt Count [place]nn % (Auto) [place]nn # (Auto) Seg Neutrophils % Seg Neuts % (Manual) 95.0 H Lymphocytes % (Manual) 2.0 L Monocytes % (Manual) Basophils % (Manual) Nucleated RBC % 3.0 H Seg Neutrophils # Seg Neutrophils # Man 8.0 H Lymphocytes # (Manual) 0.2 L Monocytes # (Manual) Basophils # (Manual) PT INR APTT ABG pH POC ABG pCO2 POC ABG pO2 ABG Hemoglobin ABG Oxyhemoglobin ABG Sodium ABG Potassium ABG Chloride ABG Glucose Sodium Potassium Chloride Carbon Dioxide BUN Creatinine Glucose POC Glucose 142 H 124 H Lactic Acid Calcium Magnesium Iron Total Bilirubin Direct Bilirubin AST ALT Alkaline Phosphatase Ammonia CK-MB (CK-2) CK-MB (CK-2) Rel Index Total Protein Albumin Arterial Blood Glucose Arterial Blood Ionized Calcium Urine Creatinine Urine Total Protein Salicylates Acetaminophen Crossmatch 10/11/20 10/11/20 10/12/20 05:51 11:56 04:53 WBC RBC Hgb 9.5 L Hct 30.0 L MCV 75 L MCH 24 L MCHC RDW 32.8 H Plt Count 136 L [place]nn % (Auto) [place]nn # (Auto) Seg Neutrophils % Seg Neuts % (Manual) 89.0 H Lymphocytes % (Manual) 5.0 L Monocytes % (Manual) Basophils % (Manual) Nucleated RBC % Seg Neutrophils # Seg Neutrophils # Man Lymphocytes # (Manual) 0.4 L Monocytes # (Manual) Basophils # (Manual) PT INR APTT ABG pH POC ABG pCO2 POC ABG pO2 ABG Hemoglobin ABG Oxyhemoglobin ABG Sodium ABG Potassium ABG Chloride ABG Glucose Sodium 130 L Potassium Chloride Carbon Dioxide 18 L BUN 23 H Creatinine Glucose POC Glucose 126 H Lactic Acid Calcium Magnesium Iron Total Bilirubin Direct Bilirubin AST ALT Alkaline Phosphatase Ammonia CK-MB (CK-2) CK-MB (CK-2) Rel Index Total Protein Albumin Arterial Blood Glucose Arterial Blood Ionized Calcium Urine Creatinine Urine Total Protein Salicylates Acetaminophen Crossmatch 10/12/20 10/12/20 10/12/20 04:53 11:42 23:49 WBC RBC Hgb Hct MCV MCH MCHC RDW Plt Count [place]nn % (Auto) [place]nn # (Auto) Seg Neutrophils % Seg Neuts % (Manual) Lymphocytes % (Manual) Monocytes % (Manual) Basophils % (Manual) Nucleated RBC % Seg Neutrophils # Seg Neutrophils # Man Lymphocytes # (Manual) Monocytes # (Manual) Basophils # (Manual) PT INR APTT ABG pH POC ABG pCO2 POC ABG pO2 ABG Hemoglobin ABG Oxyhemoglobin ABG Sodium ABG Potassium ABG Chloride ABG Glucose Sodium 130 L Potassium Chloride Carbon Dioxide 18 L BUN 25 H Creatinine Glucose 74 L POC Glucose 59 L 51 L Lactic Acid Calcium Magnesium Iron Total Bilirubin Direct Bilirubin AST ALT Alkaline Phosphatase Ammonia CK-MB (CK-2) CK-MB (CK-2) Rel Index Total Protein Albumin Arterial Blood Glucose Arterial Blood Ionized Calcium Urine Creatinine Urine Total Protein Salicylates Acetaminophen Crossmatch 10/13/20 10/13/20 10/13/20 03:17 05:24 05:24 WBC RBC Hgb 9.4 L Hct 29.4 L MCV 75 L MCH 24 L MCHC RDW 32.9 H Plt Count 95 L [place]nn % (Auto) [place]nn # (Auto) Seg Neutrophils % Seg Neuts % (Manual) 90.0 H Lymphocytes % (Manual) Monocytes % (Manual) Basophils % (Manual) Nucleated RBC % 2.0 H Seg Neutrophils # Seg Neutrophils # Man 9.5 H Lymphocytes # (Manual) 0.0 L Monocytes # (Manual) Basophils # (Manual) PT INR APTT ABG pH POC ABG pCO2 POC ABG pO2 ABG Hemoglobin ABG Oxyhemoglobin ABG Sodium ABG Potassium ABG Chloride ABG Glucose Sodium 132 L Potassium Chloride Carbon Dioxide 17 L BUN 26 H Creatinine 1.6 H Glucose POC Glucose 67 L Lactic Acid Calcium Magnesium Iron Total Bilirubin Direct Bilirubin AST ALT Alkaline Phosphatase Ammonia CK-MB (CK-2) CK-MB (CK-2) Rel Index Total Protein Albumin Arterial Blood Glucose Arterial Blood Ionized Calcium Urine Creatinine Urine Total Protein Salicylates Acetaminophen Crossmatch 10/13/20 10/14/20 10/14/20 11:36 05:04 05:04 WBC 17.4 H RBC Hgb 9.3 L Hct 29.3 L MCV 76 L MCH 24 L MCHC RDW 33.8 H Plt Count 83 L [place]nn % (Auto) [place]nn # (Auto) Seg Neutrophils % Seg Neuts % (Manual) 89.0 H Lymphocytes % (Manual) 4.0 L Monocytes % (Manual) Basophils % (Manual) Nucleated RBC % 1.0 H Seg Neutrophils # Seg Neutrophils # Man 15.5 H Lymphocytes # (Manual) 0.7 L Monocytes # (Manual) Basophils # (Manual) PT INR APTT ABG pH POC ABG pCO2 POC ABG pO2 ABG Hemoglobin ABG Oxyhemoglobin ABG Sodium ABG Potassium ABG Chloride ABG Glucose Sodium 132 L Potassium 5.3 H Chloride 108.7 H Carbon Dioxide 15 L BUN 25 H Creatinine 1.5 H Glucose POC Glucose 58 L Lactic Acid Calcium Magnesium Iron Total Bilirubin Direct Bilirubin AST ALT Alkaline Phosphatase Ammonia CK-MB (CK-2) CK-MB (CK-2) Rel Index Total Protein Albumin Arterial Blood Glucose Arterial Blood Ionized Calcium Urine Creatinine Urine Total Protein Salicylates Acetaminophen Crossmatch 10/14/20 10/14/20 10/14/20 05:41 08:19 15:34 WBC RBC Hgb Hct MCV MCH MCHC RDW Plt Count [place]nn % (Auto) [place]nn # (Auto) Seg Neutrophils % Seg Neuts % (Manual) Lymphocytes % (Manual) Monocytes % (Manual) Basophils % (Manual) Nucleated RBC % Seg Neutrophils # Seg Neutrophils # Man Lymphocytes # (Manual) Monocytes # (Manual) Basophils # (Manual) PT INR APTT ABG pH POC ABG pCO2 POC ABG pO2 ABG Hemoglobin ABG Oxyhemoglobin ABG Sodium ABG Potassium ABG Chloride ABG Glucose Sodium 134 L Potassium 5.2 H Chloride 111.1 H Carbon Dioxide 16 L BUN 25 H Creatinine 1.5 H Glucose POC Glucose 58 L 120 H Lactic Acid Calcium Magnesium Iron Total Bilirubin Direct Bilirubin AST ALT Alkaline Phosphatase Ammonia CK-MB (CK-2) CK-MB (CK-2) Rel Index Total Protein Albumin Arterial Blood Glucose Arterial Blood Ionized Calcium Urine Creatinine Urine Total Protein Salicylates Acetaminophen Crossmatch 10/14/20 10/15/20 10/15/20 Unknown 05:50 05:50 WBC 14.1 H RBC Hgb 9.4 L Hct 29.9 L MCV 76 L MCH 24 L MCHC 31 L RDW 34.2 H Plt Count 86 L [place]nn % (Auto) 8.3 H [place]nn # (Auto) 1.3 H Seg Neutrophils % 86.5 H Seg Neuts % (Manual) Lymphocytes % (Manual) 9.0 L Monocytes % (Manual) Basophils % (Manual) Nucleated RBC % 6.0 H Seg Neutrophils # 13.2 H Seg Neutrophils # Man 9.7 H Lymphocytes # (Manual) Monocytes # (Manual) Basophils # (Manual) PT INR APTT ABG pH POC ABG pCO2 POC ABG pO2 ABG Hemoglobin ABG Oxyhemoglobin ABG Sodium ABG Potassium ABG Chloride ABG Glucose Sodium 134 L Potassium Chloride 109.9 H Carbon Dioxide 18 L BUN 26 H Creatinine 1.5 H Glucose 125 H POC Glucose Lactic Acid Calcium Magnesium Iron Total Bilirubin Direct Bilirubin AST ALT Alkaline Phosphatase Ammonia CK-MB (CK-2) CK-MB (CK-2) Rel Index Total Protein Albumin Arterial Blood Glucose Arterial Blood Ionized Calcium Urine Creatinine 144.2 H Urine Total Protein 97 H Salicylates Acetaminophen Crossmatch 10/15/20 10/15/20 10/15/20 05:55 07:36 07:59 WBC RBC Hgb Hct MCV MCH MCHC RDW Plt Count [place]nn % (Auto) [place]nn # (Auto) Seg Neutrophils % Seg Neuts % (Manual) Lymphocytes % (Manual) Monocytes % (Manual) Basophils % (Manual) Nucleated RBC % Seg Neutrophils # Seg Neutrophils # Man Lymphocytes # (Manual) Monocytes # (Manual) Basophils # (Manual) PT INR APTT ABG pH 7.052 L POC ABG pCO2 65.0 H POC ABG pO2 214.1 H ABG Hemoglobin 10.6 L ABG Oxyhemoglobin 98.3 H ABG Sodium 130.6 L ABG Potassium ABG Chloride 110.0 H ABG Glucose 124 H Sodium Potassium Chloride Carbon Dioxide BUN Creatinine Glucose POC Glucose 113 H 114 H Lactic Acid Calcium Magnesium Iron Total Bilirubin Direct Bilirubin AST ALT Alkaline Phosphatase Ammonia CK-MB (CK-2) CK-MB (CK-2) Rel Index Total Protein Albumin Arterial Blood Glucose 124 H Arterial Blood Ionized Calcium Urine Creatinine Urine Total Protein Salicylates Acetaminophen Crossmatch 10/15/20 10/15/20 10/15/20 10:50 11:27 13:56 WBC RBC Hgb Hct MCV MCH MCHC RDW Plt Count [place]nn % (Auto) [place]nn # (Auto) Seg Neutrophils % Seg Neuts % (Manual) Lymphocytes % (Manual) Monocytes % (Manual) Basophils % (Manual) Nucleated RBC % Seg Neutrophils # Seg Neutrophils # Man Lymphocytes # (Manual) Monocytes # (Manual) Basophils # (Manual) PT INR APTT ABG pH 7.200 L POC ABG pCO2 POC ABG pO2 123.1 H ABG Hemoglobin ABG Oxyhemoglobin ABG Sodium 131.3 L ABG Potassium 4.6 H ABG Chloride 112.0 H ABG Glucose 42 L Sodium Potassium Chloride Carbon Dioxide BUN Creatinine Glucose POC Glucose 50 L 476 H Lactic Acid Calcium Magnesium Iron Total Bilirubin Direct Bilirubin AST ALT Alkaline Phosphatase Ammonia CK-MB (CK-2) CK-MB (CK-2) Rel Index Total Protein Albumin Arterial Blood Glucose 42 L Arterial Blood Ionized Calcium Urine Creatinine Urine Total Protein Salicylates Acetaminophen Crossmatch 10/15/20 10/15/20 10/16/20 16:46 17:01 00:45 WBC RBC Hgb Hct MCV MCH MCHC RDW Plt Count [place]nn % (Auto) [place]nn # (Auto) Seg Neutrophils % Seg Neuts % (Manual) Lymphocytes % (Manual) Monocytes % (Manual) Basophils % (Manual) Nucleated RBC % Seg Neutrophils # Seg Neutrophils # Man Lymphocytes # (Manual) Monocytes # (Manual) Basophils # (Manual) PT INR APTT ABG pH 7.250 L POC ABG pCO2 POC ABG pO2 49.8 L ABG Hemoglobin 9.3 L ABG Oxyhemoglobin 83.0 L ABG Sodium 130.2 L ABG Potassium ABG Chloride 111.0 H ABG Glucose Sodium 135 L Potassium Chloride Carbon Dioxide BUN Creatinine Glucose POC Glucose 67 L Lactic Acid Calcium Magnesium Iron Total Bilirubin Direct Bilirubin AST ALT Alkaline Phosphatase Ammonia CK-MB (CK-2) CK-MB (CK-2) Rel Index Total Protein Albumin Arterial Blood Glucose Arterial Blood Ionized Calcium Urine Creatinine Urine Total Protein Salicylates Acetaminophen Crossmatch 10/16/20 10/16/20 10/16/20 05:36 05:53 05:53 WBC 16.6 H RBC 3.52 L Hgb 8.3 L Hct 26.6 L MCV 75 L MCH 23 L MCHC 31 L RDW 33.7 H Plt Count 63 L [place]nn % (Auto) [place]nn # (Auto) Seg Neutrophils % Seg Neuts % (Manual) 93.0 H Lymphocytes % (Manual) Monocytes % (Manual) Basophils % (Manual) Nucleated RBC % 3.0 H Seg Neutrophils # Seg Neutrophils # Man 15.4 H Lymphocytes # (Manual) 0.0 L Monocytes # (Manual) Basophils # (Manual) PT INR APTT ABG pH POC ABG pCO2 POC ABG pO2 ABG Hemoglobin ABG Oxyhemoglobin ABG Sodium ABG Potassium ABG Chloride ABG Glucose Sodium 136 L Potassium Chloride 111.9 H Carbon Dioxide 17 L BUN 29 H Creatinine 2.0 H Glucose 126 H POC Glucose 44 L Lactic Acid Calcium 8.1 L Magnesium Iron Total Bilirubin Direct Bilirubin AST ALT Alkaline Phosphatase Ammonia CK-MB (CK-2) CK-MB (CK-2) Rel Index Total Protein Albumin Arterial Blood Glucose Arterial Blood Ionized Calcium Urine Creatinine Urine Total Protein Salicylates Acetaminophen Crossmatch 10/16/20 10/16/20 10/16/20 05:53 07:26 08:07 WBC RBC Hgb Hct MCV MCH MCHC RDW Plt Count [place]nn % (Auto) [place]nn # (Auto) Seg Neutrophils % Seg Neuts % (Manual) Lymphocytes % (Manual) Monocytes % (Manual) Basophils % (Manual) Nucleated RBC % Seg Neutrophils # Seg Neutrophils # Man Lymphocytes # (Manual) Monocytes # (Manual) Basophils # (Manual) PT 24.5 H INR 2.17 H APTT ABG pH POC ABG pCO2 POC ABG pO2 ABG Hemoglobin ABG Oxyhemoglobin ABG Sodium ABG Potassium ABG Chloride ABG Glucose Sodium Potassium Chloride Carbon Dioxide BUN Creatinine Glucose POC Glucose 58 L 51 L Lactic Acid Calcium Magnesium Iron Total Bilirubin Direct Bilirubin AST ALT Alkaline Phosphatase Ammonia CK-MB (CK-2) CK-MB (CK-2) Rel Index Total Protein Albumin Arterial Blood Glucose Arterial Blood Ionized Calcium Urine Creatinine Urine Total Protein Salicylates Acetaminophen Crossmatch 10/16/20 10/16/20 10/16/20 08:52 11:14 11:33 WBC RBC Hgb Hct MCV MCH MCHC RDW Plt Count [place]nn % (Auto) [place]nn # (Auto) Seg Neutrophils % Seg Neuts % (Manual) Lymphocytes % (Manual) Monocytes % (Manual) Basophils % (Manual) Nucleated RBC % Seg Neutrophils # Seg Neutrophils # Man Lymphocytes # (Manual) Monocytes # (Manual) Basophils # (Manual) PT INR APTT ABG pH 7.044 L POC ABG pCO2 58.1 H POC ABG pO2 57.7 L ABG Hemoglobin 9.5 L ABG Oxyhemoglobin 81.5 L ABG Sodium 131.7 L ABG Potassium ABG Chloride 112.0 H ABG Glucose 59 L Sodium Potassium Chloride Carbon Dioxide BUN Creatinine Glucose POC Glucose 58 L Lactic Acid Calcium Magnesium Iron Total Bilirubin Direct Bilirubin AST 136 H ALT 72 H Alkaline Phosphatase 240 H Ammonia CK-MB (CK-2) CK-MB (CK-2) Rel Index Total Protein 5.1 L Albumin 2.1 L Arterial Blood Glucose 59 L Arterial Blood Ionized Calcium Urine Creatinine Urine Total Protein Salicylates Acetaminophen Crossmatch 10/16/20 10/16/20 10/16/20 12:32 13:11 13:40 WBC RBC Hgb Hct MCV MCH MCHC RDW Plt Count [place]nn % (Auto) [place]nn # (Auto) Seg Neutrophils % Seg Neuts % (Manual) Lymphocytes % (Manual) Monocytes % (Manual) Basophils % (Manual) Nucleated RBC % Seg Neutrophils # Seg Neutrophils # Man Lymphocytes # (Manual) Monocytes # (Manual) Basophils # (Manual) PT INR APTT ABG pH POC ABG pCO2 POC ABG pO2 ABG Hemoglobin ABG Oxyhemoglobin ABG Sodium ABG Potassium ABG Chloride ABG Glucose Sodium Potassium Chloride Carbon Dioxide BUN Creatinine Glucose POC Glucose 27 L 54 L 69 L Lactic Acid Calcium Magnesium Iron Total Bilirubin Direct Bilirubin AST ALT Alkaline Phosphatase Ammonia CK-MB (CK-2) CK-MB (CK-2) Rel Index Total Protein Albumin Arterial Blood Glucose Arterial Blood Ionized Calcium Urine Creatinine Urine Total Protein Salicylates Acetaminophen Crossmatch 10/16/20 10/16/20 10/16/20 15:13 17:15 17:34 WBC RBC Hgb Hct MCV MCH MCHC RDW Plt Count [place]nn % (Auto) [place]nn # (Auto) Seg Neutrophils % Seg Neuts % (Manual) Lymphocytes % (Manual) Monocytes % (Manual) Basophils % (Manual) Nucleated RBC % Seg Neutrophils # Seg Neutrophils # Man Lymphocytes # (Manual) Monocytes # (Manual) Basophils # (Manual) PT INR APTT ABG pH POC ABG pCO2 POC ABG pO2 ABG Hemoglobin ABG Oxyhemoglobin ABG Sodium ABG Potassium ABG Chloride ABG Glucose Sodium Potassium Chloride Carbon Dioxide BUN Creatinine Glucose POC Glucose 46 L 54 L 119 H Lactic Acid Calcium Magnesium Iron Total Bilirubin Direct Bilirubin AST ALT Alkaline Phosphatase Ammonia CK-MB (CK-2) CK-MB (CK-2) Rel Index Total Protein Albumin Arterial Blood Glucose Arterial Blood Ionized Calcium Urine Creatinine Urine Total Protein Salicylates Acetaminophen Crossmatch 10/16/20 10/16/20 10/16/20 18:51 19:37 21:00 WBC RBC Hgb Hct MCV MCH MCHC RDW Plt Count [place]nn % (Auto) [place]nn # (Auto) Seg Neutrophils % Seg Neuts % (Manual) Lymphocytes % (Manual) Monocytes % (Manual) Basophils % (Manual) Nucleated RBC % Seg Neutrophils # Seg Neutrophils # Man Lymphocytes # (Manual) Monocytes # (Manual) Basophils # (Manual) PT INR APTT ABG pH 7.122 L POC ABG pCO2 49.8 H POC ABG pO2 62.1 L ABG Hemoglobin 9.1 L ABG Oxyhemoglobin 89.6 L ABG Sodium 130.1 L ABG Potassium 3.0 L ABG Chloride 111.0 H ABG Glucose 106 H Sodium Potassium Chloride Carbon Dioxide BUN Creatinine Glucose POC Glucose 64 L 114 H Lactic Acid Calcium Magnesium Iron Total Bilirubin Direct Bilirubin AST ALT Alkaline Phosphatase Ammonia CK-MB (CK-2) CK-MB (CK-2) Rel Index Total Protein Albumin Arterial Blood Glucose 106 H Arterial Blood Ionized Calcium Urine Creatinine Urine Total Protein Salicylates Acetaminophen Crossmatch 10/16/20 10/16/20 10/17/20 22:01 22:58 00:58 WBC RBC Hgb Hct MCV MCH MCHC RDW Plt Count [place]nn % (Auto) [place]nn # (Auto) Seg Neutrophils % Seg Neuts % (Manual) Lymphocytes % (Manual) Monocytes % (Manual) Basophils % (Manual) Nucleated RBC % Seg Neutrophils # Seg Neutrophils # Man Lymphocytes # (Manual) Monocytes # (Manual) Basophils # (Manual) PT INR APTT ABG pH POC ABG pCO2 POC ABG pO2 ABG Hemoglobin ABG Oxyhemoglobin ABG Sodium ABG Potassium ABG Chloride ABG Glucose Sodium 133 L Potassium 3.5 L Chloride 107.7 H Carbon Dioxide 15 L BUN 29 H Creatinine 2.6 H Glucose POC Glucose 63 L 292 H Lactic Acid Calcium 7.9 L Magnesium Iron Total Bilirubin Direct Bilirubin AST ALT Alkaline Phosphatase Ammonia CK-MB (CK-2) CK-MB (CK-2) Rel Index Total Protein Albumin Arterial Blood Glucose Arterial Blood Ionized Calcium Urine Creatinine Urine Total Protein Salicylates Acetaminophen Crossmatch 10/17/20 10/17/20 10/17/20 02:04 03:08 03:55 WBC RBC Hgb Hct MCV MCH MCHC RDW Plt Count [place]nn % (Auto) [place]nn # (Auto) Seg Neutrophils % Seg Neuts % (Manual) Lymphocytes % (Manual) Monocytes % (Manual) Basophils % (Manual) Nucleated RBC % Seg Neutrophils # Seg Neutrophils # Man Lymphocytes # (Manual) Monocytes # (Manual) Basophils # (Manual) PT INR APTT ABG pH POC ABG pCO2 POC ABG pO2 ABG Hemoglobin ABG Oxyhemoglobin ABG Sodium ABG Potassium ABG Chloride ABG Glucose Sodium Potassium Chloride Carbon Dioxide BUN Creatinine Glucose POC Glucose 200 H 173 H 161 H Lactic Acid Calcium Magnesium Iron Total Bilirubin Direct Bilirubin AST ALT Alkaline Phosphatase Ammonia CK-MB (CK-2) CK-MB (CK-2) Rel Index Total Protein Albumin Arterial Blood Glucose Arterial Blood Ionized Calcium Urine Creatinine Urine Total Protein Salicylates Acetaminophen Crossmatch 10/17/20 10/17/20 10/17/20 04:00 04:49 04:49 WBC 17.7 H RBC 3.21 L Hgb 7.5 L Hct 25.4 L MCV 79 L MCH 24 L MCHC 30 L RDW 34.0 H Plt Count 40 L [place]nn % (Auto) [place]nn # (Auto) Seg Neutrophils % Seg Neuts % (Manual) Lymphocytes % (Manual) 3.0 L Monocytes % (Manual) Basophils % (Manual) Nucleated RBC % 3.0 H Seg Neutrophils # Seg Neutrophils # Man 10.6 H Lymphocytes # (Manual) 0.5 L Monocytes # (Manual) 1.1 H Basophils # (Manual) PT INR APTT ABG pH 7.116 L POC ABG pCO2 POC ABG pO2 61.1 L ABG Hemoglobin 8.4 L ABG Oxyhemoglobin 90.2 L ABG Sodium 125.0 L ABG Potassium 3.1 L ABG Chloride ABG Glucose 155 H Sodium 133 L Potassium 3.3 L Chloride Carbon Dioxide 15 L BUN 29 H Creatinine 2.7 H Glucose 138 H POC Glucose Lactic Acid Calcium 7.8 L Magnesium Iron Total Bilirubin Direct Bilirubin AST ALT Alkaline Phosphatase Ammonia CK-MB (CK-2) CK-MB (CK-2) Rel Index Total Protein Albumin Arterial Blood Glucose 155 H Arterial Blood Ionized Calcium Urine Creatinine Urine Total Protein Salicylates Acetaminophen Crossmatch 10/17/20 10/17/20 10/17/20 04:58 06:01 07:50 WBC RBC Hgb Hct MCV MCH MCHC RDW Plt Count [place]nn % (Auto) [place]nn # (Auto) Seg Neutrophils % Seg Neuts % (Manual) Lymphocytes % (Manual) Monocytes % (Manual) Basophils % (Manual) Nucleated RBC % Seg Neutrophils # Seg Neutrophils # Man Lymphocytes # (Manual) Monocytes # (Manual) Basophils # (Manual) PT INR APTT ABG pH POC ABG pCO2 POC ABG pO2 ABG Hemoglobin ABG Oxyhemoglobin ABG Sodium ABG Potassium ABG Chloride ABG Glucose Sodium Potassium Chloride Carbon Dioxide BUN Creatinine Glucose POC Glucose 137 H 119 H 106 H Lactic Acid Calcium Magnesium Iron Total Bilirubin Direct Bilirubin AST ALT Alkaline Phosphatase Ammonia CK-MB (CK-2) CK-MB (CK-2) Rel Index Total Protein Albumin Arterial Blood Glucose Arterial Blood Ionized Calcium Urine Creatinine Urine Total Protein Salicylates Acetaminophen Crossmatch 10/17/20 10/17/20 10/17/20 11:50 15:11 18:11 WBC RBC Hgb Hct MCV MCH MCHC RDW Plt Count [place]nn % (Auto) [place]nn # (Auto) Seg Neutrophils % Seg Neuts % (Manual) Lymphocytes % (Manual) Monocytes % (Manual) Basophils % (Manual) Nucleated RBC % Seg Neutrophils # Seg Neutrophils # Man Lymphocytes # (Manual) Monocytes # (Manual) Basophils # (Manual) PT INR APTT ABG pH POC ABG pCO2 POC ABG pO2 ABG Hemoglobin ABG Oxyhemoglobin ABG Sodium ABG Potassium ABG Chloride ABG Glucose Sodium Potassium Chloride Carbon Dioxide BUN Creatinine Glucose POC Glucose 111 H 114 H 137 H Lactic Acid Calcium Magnesium Iron Total Bilirubin Direct Bilirubin AST ALT Alkaline Phosphatase Ammonia CK-MB (CK-2) CK-MB (CK-2) Rel Index Total Protein Albumin Arterial Blood Glucose Arterial Blood Ionized Calcium Urine Creatinine Urine Total Protein Salicylates Acetaminophen Crossmatch 10/17/20 10/17/20 10/18/20 19:51 23:32 04:00 WBC RBC Hgb Hct MCV MCH MCHC RDW Plt Count [place] % (Auto) [place] # (Auto) Seg Neutrophils % Seg Neuts % (Manual) Lymphocytes % (Manual) Monocytes % (Manual) Basophils % (Manual) Nucleated RBC % Seg Neutrophils # Seg Neutrophils # Man Lymphocytes # (Manual) Monocytes # (Manual) Basophils # (Manual) PT INR APTT ABG pH 7.276 L POC ABG pCO2 POC ABG pO2 77.7 L ABG Hemoglobin 7.2 L ABG Oxyhemoglobin ABG Sodium 122.6 L ABG Potassium ABG Chloride ABG Glucose 113 H Sodium Potassium Chloride Carbon Dioxide BUN Creatinine Glucose POC Glucose 130 H 114 H Lactic Acid Calcium Magnesium Iron Total Bilirubin Direct Bilirubin AST ALT Alkaline Phosphatase Ammonia CK-MB (CK-2) CK-MB (CK-2) Rel Index Total Protein Albumin Arterial Blood Glucose 113 H Arterial Blood Ionized Calcium Urine Creatinine Urine Total Protein Salicylates Acetaminophen Crossmatch 10/18/20 10/18/20 10/18/20 04:06 04:06 04:13 WBC RBC Hgb Hct MCV MCH MCHC RDW Plt Count [place] % (Auto) [place]nn # (Auto) Seg Neutrophils % Seg Neuts % (Manual) Lymphocytes % (Manual) Monocytes % (Manual) Basophils % (Manual) Nucleated RBC % Seg Neutrophils # Seg Neutrophils # Man Lymphocytes # (Manual) Monocytes # (Manual) Basophils # (Manual) PT 23.5 H INR 2.05 H APTT ABG pH POC ABG pCO2 POC ABG pO2 ABG Hemoglobin ABG Oxyhemoglobin ABG Sodium ABG Potassium ABG Chloride ABG Glucose Sodium 123 L D Potassium Chloride 97.9 L Carbon Dioxide 16 L BUN 31 H Creatinine 3.1 H Glucose 113 H POC Glucose 108 H Lactic Acid Calcium 7.4 L Magnesium Iron Total Bilirubin Direct Bilirubin AST ALT Alkaline Phosphatase Ammonia CK-MB (CK-2) CK-MB (CK-2) Rel Index Total Protein Albumin Arterial Blood Glucose Arterial Blood Ionized Calcium Urine Creatinine Urine Total Protein Salicylates Acetaminophen Crossmatch 10/18/20 10/18/20 10/18/20 10:03 14:12 19:08 WBC RBC Hgb Hct MCV MCH MCHC RDW Plt Count [place] % (Auto) [place] # (Auto) Seg Neutrophils % Seg Neuts % (Manual) Lymphocytes % (Manual) Monocytes % (Manual) Basophils % (Manual) Nucleated RBC % Seg Neutrophils # Seg Neutrophils # Man Lymphocytes # (Manual) Monocytes # (Manual) Basophils # (Manual) PT INR APTT ABG pH POC ABG pCO2 POC ABG pO2 ABG Hemoglobin ABG Oxyhemoglobin ABG Sodium ABG Potassium ABG Chloride ABG Glucose Sodium Potassium Chloride Carbon Dioxide BUN Creatinine Glucose POC Glucose 139 H 112 H Lactic Acid Calcium Magnesium Iron Total Bilirubin Direct Bilirubin AST ALT Alkaline Phosphatase Ammonia CK-MB (CK-2) CK-MB (CK-2) Rel Index Total Protein Albumin Arterial Blood Glucose Arterial Blood Ionized Calcium Urine Creatinine Urine Total Protein Salicylates Acetaminophen Crossmatch See Detail 10/18/20 10/19/20 10/19/20 Unknown 02:02 04:00 WBC 19.8 H RBC 2.95 L Hgb 6.9 L Hct 22.2 L MCV 75 L MCH 24 L MCHC 31 L RDW 33.6 H Plt Count 28 L [place]nn % (Auto) [place]nn # (Auto) Seg Neutrophils % Seg Neuts % (Manual) Lymphocytes % (Manual) Monocytes % (Manual) Basophils % (Manual) Nucleated RBC % Seg Neutrophils # Seg Neutrophils # Man Lymphocytes # (Manual) Monocytes # (Manual) Basophils # (Manual) PT INR APTT ABG pH 7.234 L POC ABG pCO2 POC ABG pO2 53.9 L ABG Hemoglobin 8.9 L ABG Oxyhemoglobin 86.6 L ABG Sodium 118.1 L ABG Potassium ABG Chloride 94.0 L ABG Glucose 61 L Sodium Potassium Chloride Carbon Dioxide BUN Creatinine Glucose POC Glucose 64 L Lactic Acid Calcium Magnesium Iron Total Bilirubin Direct Bilirubin AST ALT Alkaline Phosphatase Ammonia CK-MB (CK-2) CK-MB (CK-2) Rel Index Total Protein Albumin Arterial Blood Glucose 61 L Arterial Blood Ionized Calcium 4.5 L Urine Creatinine Urine Total Protein Salicylates Acetaminophen Crossmatch 10/19/20 10/19/20 10/19/20 04:51 04:51 05:43 WBC 18.2 H RBC 3.26 L Hgb 7.9 L Hct 24.6 L MCV 76 L MCH 24 L MCHC RDW 30.7 H Plt Count 41 L Glynn % (Auto) Glynn # (Auto) Seg Neutrophils % Seg Neuts % (Manual) Lymphocytes % (Manual) Monocytes % (Manual) Basophils % (Manual) Nucleated RBC % Seg Neutrophils # Seg Neutrophils # Man Lymphocytes # (Manual) Monocytes # (Manual) Basophils # (Manual) PT INR APTT ABG pH POC ABG pCO2 POC ABG pO2 ABG Hemoglobin ABG Oxyhemoglobin ABG Sodium ABG Potassium ABG Chloride ABG Glucose Sodium 122 L Potassium Chloride 94.6 L Carbon Dioxide 17 L BUN 33 H Creatinine 3.5 H Glucose 63 L POC Glucose 54 L Lactic Acid Calcium 7.3 L Magnesium Iron Total Bilirubin 1.50 H Direct Bilirubin 0.9 H AST ALT Alkaline Phosphatase 154 H Ammonia CK-MB (CK-2) CK-MB (CK-2) Rel Index Total Protein 4.2 L Albumin 1.9 L Arterial Blood Glucose Arterial Blood Ionized Calcium Urine Creatinine Urine Total Protein Salicylates Acetaminophen Crossmatch 10/19/20 10/19/20 10/19/20 11:23 11:45 14:24 WBC RBC Hgb Hct MCV MCH MCHC RDW Plt Count Glynn % (Auto) Glynn # (Auto) Seg Neutrophils % Seg Neuts % (Manual) Lymphocytes % (Manual) Monocytes % (Manual) Basophils % (Manual) Nucleated RBC % Seg Neutrophils # Seg Neutrophils # Man Lymphocytes # (Manual) Monocytes # (Manual) Basophils # (Manual) PT INR APTT ABG pH POC ABG pCO2 POC ABG pO2 ABG Hemoglobin ABG Oxyhemoglobin ABG Sodium ABG Potassium ABG Chloride ABG Glucose Sodium Potassium Chloride Carbon Dioxide BUN Creatinine Glucose POC Glucose 47 L 117 H 47 L Lactic Acid Calcium Magnesium Iron Total Bilirubin Direct Bilirubin AST ALT Alkaline Phosphatase Ammonia CK-MB (CK-2) CK-MB (CK-2) Rel Index Total Protein Albumin Arterial Blood Glucose Arterial Blood Ionized Calcium Urine Creatinine Urine Total Protein Salicylates Acetaminophen Crossmatch 10/19/20 10/19/20 10/19/20 16:31 20:04 20:19 WBC RBC Hgb Hct MCV MCH MCHC RDW Plt Count Glynn % (Auto) Glynn # (Auto) Seg Neutrophils % Seg Neuts % (Manual) Lymphocytes % (Manual) Monocytes % (Manual) Basophils % (Manual) Nucleated RBC % Seg Neutrophils # Seg Neutrophils # Man Lymphocytes # (Manual) Monocytes # (Manual) Basophils # (Manual) PT INR APTT ABG pH POC ABG pCO2 POC ABG pO2 ABG Hemoglobin ABG Oxyhemoglobin ABG Sodium ABG Potassium ABG Chloride ABG Glucose Sodium Potassium Chloride Carbon Dioxide BUN Creatinine Glucose 59 L POC Glucose 58 L 49 L Lactic Acid Calcium Magnesium Iron Total Bilirubin Direct Bilirubin AST ALT Alkaline Phosphatase Ammonia CK-MB (CK-2) CK-MB (CK-2) Rel Index Total Protein Albumin Arterial Blood Glucose Arterial Blood Ionized Calcium Urine Creatinine Urine Total Protein Salicylates Acetaminophen Crossmatch 10/20/20 10/20/20 10/20/20 00:17 03:59 08:43 WBC 13.1 H RBC 3.42 L Hgb 8.3 L Hct 25.3 L MCV 74 L MCH 24 L MCHC RDW 31.4 H Plt Count 35 L Glynn % (Auto) Glynn # (Auto) Seg Neutrophils % Seg Neuts % (Manual) Lymphocytes % (Manual) Monocytes % (Manual) Basophils % (Manual) Nucleated RBC % Seg Neutrophils # Seg Neutrophils # Man Lymphocytes # (Manual) Monocytes # (Manual) Basophils # (Manual) PT INR APTT ABG pH POC ABG pCO2 POC ABG pO2 ABG Hemoglobin ABG Oxyhemoglobin ABG Sodium ABG Potassium ABG Chloride ABG Glucose Sodium Potassium Chloride Carbon Dioxide BUN Creatinine Glucose POC Glucose 29 L 47 L Lactic Acid Calcium Magnesium Iron Total Bilirubin Direct Bilirubin AST ALT Alkaline Phosphatase Ammonia CK-MB (CK-2) CK-MB (CK-2) Rel Index Total Protein Albumin Arterial Blood Glucose Arterial Blood Ionized Calcium Urine Creatinine Urine Total Protein Salicylates Acetaminophen Crossmatch 10/20/20 10/20/20 10/20/20 08:43 08:43 09:56 WBC RBC Hgb Hct MCV MCH MCHC RDW Plt Count Glynn % (Auto) Glynn # (Auto) Seg Neutrophils % Seg Neuts % (Manual) Lymphocytes % (Manual) Monocytes % (Manual) Basophils % (Manual) Nucleated RBC % Seg Neutrophils # Seg Neutrophils # Man Lymphocytes # (Manual) Monocytes # (Manual) Basophils # (Manual) PT 30.1 H INR 2.82 H APTT ABG pH POC ABG pCO2 POC ABG pO2 ABG Hemoglobin ABG Oxyhemoglobin ABG Sodium ABG Potassium ABG Chloride ABG Glucose Sodium 119 L* Potassium Chloride 90.7 L Carbon Dioxide 20 L BUN 35 H Creatinine 3.3 H Glucose 57 L POC Glucose 61 L Lactic Acid Calcium 7.7 L Magnesium 1.30 L Iron Total Bilirubin 1.60 H Direct Bilirubin AST ALT Alkaline Phosphatase 152 H Ammonia CK-MB (CK-2) CK-MB (CK-2) Rel Index Total Protein 4.5 L Albumin 1.6 L Arterial Blood Glucose Arterial Blood Ionized Calcium Urine Creatinine Urine Total Protein Salicylates Acetaminophen Crossmatch 10/20/20 10/20/20 10/20/20 15:35 17:30 20:17 WBC RBC Hgb Hct MCV MCH MCHC RDW Plt Count Glynn % (Auto) Glynn # (Auto) Seg Neutrophils % Seg Neuts % (Manual) Lymphocytes % (Manual) Monocytes % (Manual) Basophils % (Manual) Nucleated RBC % Seg Neutrophils # Seg Neutrophils # Man Lymphocytes # (Manual) Monocytes # (Manual) Basophils # (Manual) PT INR APTT ABG pH POC ABG pCO2 POC ABG pO2 ABG Hemoglobin ABG Oxyhemoglobin ABG Sodium ABG Potassium ABG Chloride ABG Glucose Sodium 121 L 120 L Potassium Chloride Carbon Dioxide BUN Creatinine Glucose POC Glucose 61 L Lactic Acid Calcium Magnesium Iron Total Bilirubin Direct Bilirubin AST ALT Alkaline Phosphatase Ammonia CK-MB (CK-2) CK-MB (CK-2) Rel Index Total Protein Albumin Arterial Blood Glucose Arterial Blood Ionized Calcium Urine Creatinine Urine Total Protein Salicylates Acetaminophen Crossmatch 10/20/20 10/20/20 10/21/20 23:00 23:37 01:00 WBC RBC Hgb Hct MCV MCH MCHC RDW Plt Count Glynn % (Auto) Glynn # (Auto) Seg Neutrophils % Seg Neuts % (Manual) Lymphocytes % (Manual) Monocytes % (Manual) Basophils % (Manual) Nucleated RBC % Seg Neutrophils # Seg Neutrophils # Man Lymphocytes # (Manual) Monocytes # (Manual) Basophils # (Manual) PT INR APTT ABG pH POC ABG pCO2 POC ABG pO2 ABG Hemoglobin ABG Oxyhemoglobin ABG Sodium ABG Potassium ABG Chloride ABG Glucose Sodium 121 L Potassium Chloride Carbon Dioxide BUN Creatinine Glucose POC Glucose 33 L 36 L Lactic Acid Calcium Magnesium Iron Total Bilirubin Direct Bilirubin AST ALT Alkaline Phosphatase Ammonia CK-MB (CK-2) CK-MB (CK-2) Rel Index Total Protein Albumin Arterial Blood Glucose Arterial Blood Ionized Calcium Urine Creatinine Urine Total Protein Salicylates Acetaminophen Crossmatch 10/21/20 10/21/20 10/21/20 02:31 04:00 05:22 WBC RBC Hgb Hct MCV MCH MCHC RDW Plt Count Glynn % (Auto) Glynn # (Auto) Seg Neutrophils % Seg Neuts % (Manual) Lymphocytes % (Manual) Monocytes % (Manual) Basophils % (Manual) Nucleated RBC % Seg Neutrophils # Seg Neutrophils # Man Lymphocytes # (Manual) Monocytes # (Manual) Basophils # (Manual) PT INR APTT ABG pH POC ABG pCO2 POC ABG pO2 66.6 L ABG Hemoglobin 8.7 L ABG Oxyhemoglobin 92.1 L ABG Sodium 117.9 L ABG Potassium 3.2 L ABG Chloride 93.0 L ABG Glucose Sodium Potassium Chloride Carbon Dioxide BUN Creatinine Glucose POC Glucose 51 L 64 L Lactic Acid Calcium Magnesium Iron Total Bilirubin Direct Bilirubin AST ALT Alkaline Phosphatase Ammonia CK-MB (CK-2) CK-MB (CK-2) Rel Index Total Protein Albumin Arterial Blood Glucose Arterial Blood Ionized Calcium 4.4 L Urine Creatinine Urine Total Protein Salicylates Acetaminophen Crossmatch 10/21/20 10/21/20 10/21/20 05:50 05:50 10:32 WBC 11.1 H RBC 3.27 L Hgb 7.9 L Hct 23.9 L MCV 73 L MCH 24 L MCHC RDW 31.8 H Plt Count 26 L Glynn % (Auto) Glynn # (Auto) Seg Neutrophils % Seg Neuts % (Manual) Lymphocytes % (Manual) Monocytes % (Manual) Basophils % (Manual) Nucleated RBC % Seg Neutrophils # Seg Neutrophils # Man Lymphocytes # (Manual) Monocytes # (Manual) Basophils # (Manual) PT INR APTT ABG pH POC ABG pCO2 POC ABG pO2 ABG Hemoglobin ABG Oxyhemoglobin ABG Sodium ABG Potassium ABG Chloride ABG Glucose Sodium 122 L Potassium 3.4 L Chloride 91.1 L Carbon Dioxide BUN 38 H Creatinine 3.2 H Glucose 56 L POC Glucose 68 L Lactic Acid Calcium 7.8 L Magnesium 1.60 L Iron Total Bilirubin Direct Bilirubin AST ALT Alkaline Phosphatase Ammonia CK-MB (CK-2) CK-MB (CK-2) Rel Index Total Protein Albumin Arterial Blood Glucose Arterial Blood Ionized Calcium Urine Creatinine Urine Total Protein Salicylates Acetaminophen Crossmatch Chest x-ray: image reviewed Allied health notes reviewed: RT
[2020-10-21] MEDS: levETIRAcetam 250 MG in DEXTROSE 5% IN WATER 100 ML IV SCH ×2 (11:33→23:13)
[2020-10-21] MEDS: MULTIVITAMIN / MINERAL ORAL LIQUID 15 ML PO SCH (11:34)
[2020-10-21] MEDS: FOLIC ACID 1 MG TAB PO SCH (11:34)
[2020-10-21] MEDS: FERROUS SULFATE 308 MG (62mg Elemental Iron) / 7 ML ELIXIR FEEDTUBE SCH (11:34)
[2020-10-21] MEDS: PANTOPRAZOLE 40 MG INJ IV SCH (11:34)
[2020-10-21] MEDS: NORepinephrine/NS 8 MG-250 ML 8 MG/250 ML INFUS..BTL IV SCH (11:37)
[2020-10-21] MEDS: VASOPRESSIN 20 UNIT in SODIUM CHLORIDE 0.9% 100 ML IV SCH ×2 (12:20→23:15)
--- NOTE | 2020-10-21 14:32 | Progress Note ---
<EVERETT THOMASON - Last Filed: 10/21/20 14:27> Assessment and Plan Assessment and plan: This is 74-year-old male with GERD admitted with arthrosclerotic calcification, anemia and hypoglycemia. Neuro: Acute metabolic encephalopathy, significant narrowing in bilateral posterior cerebral arteries, left-sided hemiparesis with aphasia, atherosclerotic cerebrovascular disease -Avoid delirium -Patient is not sedated -Intact cough/gag, no decorticate positioning to painful stimuli -CTA head/CTA neck completed-> see results -MRI brain completed-> see results, findings suggestive of ventriculomegaly -Thiamine and folate daily -Keppra -Seizure precautions -Neurology consulted, appreciate recommendations -EEG completed which cannot rule out acute seizure with postictal state Cardio: SB-SR, hypotension, afib, HFrEF (10-15%) -Levophed, phenylepi, dobutamine, vasopressor-> wean as tolerated -MAP goal greater than 65 -Blood pressure monitoring per protocol -PICC 10/16 -Cardiology consulted, appreciate recommendations -no anticoagulation per cards for now -Amiodarone discontinued today -Echo completed-> see results, EF 25-30% Respiratory: Acute hypoxic respiratory failure; mixed resp and metabolic acidosis -Patient was intubated on 10/15 -VAP bundle -Current vent settings: Assist-control rate 30, tidal volume 500, PEEP of 8, 40% FiO2 -Intubated with 7.5 OETT 24 at the lips -[facility] following -VAP bundle -10/21 reviewed CXR and ABG reviewed -Daily CXR and ABG -SBT/SAT when appropriate GI:? GIB, oropharyngeal dysphagia, severe protein-calorie malnutrition -Nutrition consult for tube feedings -GI consulted, appreciate recommendations -GI will hold off EGD/PEG given acute clinical worsening with respiratory failure -Past 24 hours net + 762 -PPI with Protonix -BR with Senokot -NGT to LIS : Hyponatremia,metabolic acidosis, acute kidney injury secondary to acute tubular necrosis, hypomagnesemia -Nephrology consulted, appreciate recommendations -Strict intake and output -Monitor BMP -munoz for I&O -Hypertonic saline per nephrology -Serial sodium checks -Lasix drip per [facility] -Replete magnesium and potassium Heme: Iron deficient anemia, leukocytosis, supratherapeutic INR, superfical venous thrombus, thrombocytopenia -Likely secondary to malnutrition -S/p 4 units of PRBC and 1 unit plt -Iron/multivitamin supplements -GI consulted, patient recommendations -Monitor H/H -Hold off EGD/colonoscopy given acute clinical worsening with respiratory failure per GI -Trend CBC -Bilateral upper and lower extremity Doppler ultrasound shows occlusive superficial venous thrombus of left basilic and cephalic vein. -Monitor INR and bleeding -no bleeding on exam -DIC panel pending Endo: Persistent hypoglycemia -tube feedings as tolerated->on hold -Accu-Cheks every 4 -Hypoglycemia protocol -Avoid hypoglycemia ID: Pulmonary infiltrate in right lung, Hypothermia -Infectious disease consulted, appreciate recommendations -COVID-19 PCR negative -Antibiotic therapy with cefepime -Monitor CBC and temperature curve -Intermittent Joseph hugger use -TSH 2.1 The high probability of a clinically significant, sudden or life threatening deterioration of the [multi] system(s) required my full and direct attention, intervention and personal management. The aggregate critical care time was [90] minutes. This time is in addition to time spent performing reported procedures but includes the following: [x] Data Review and interpretation [x] Patient assessment and monitoring of vital signs [x] Documentation [x] Medication orders and management Disposition Plan: icu Total Time Spent with Patient (Minutes): 90 History Interval history: This is 74-year-old male with GERD who presented with AMS and left-sided weakness on 10/03 after being found incontinent in feces and urine on bed. Patient was only able to answer simple questions to the EMS. Upon presentation to the ED patient was confused. CT head showed cerebral with arthrosclerotic calcification. Work-up in the emergency department revealed anemia and hypoglycemia. Patient admitted to the hospital service for further work-up. 10/03/20: CT of the head no acute finding but showed a cerebral atrophy with suspicious atrophy and atherosclerotic calcification within the distal right middle cere bral artery. Patient also noted with hemoglobin of 5.8, received 1 unit of packed RBC and ordered for tomorrow Neuro is consulted, Covid test is negative We will check stool for occult blood MRI brain ordered we will follow Will hold any oral medicine until cleared by speech or passes the bedside s christos eval Patient noted to have severe hypoglycemic, will place on D10W Follow H&H and BMP Continue current management plan as dictated in the HPI 10/04/20: no acute findings in MRI, pending EEG, s/p 3 units PRBC transfusion. follow speech zaraal, TF for now, h/h stable, GI consulted - follow recomm endation. 10/05/20 Patient with acute encephalopathy, severe anemia s/p PRBC transfusion. GI following. Hgb 9.8 today. Will repeat in am. Left sided weakness. MRI negative for stroke. Neurology following. 10/06/20 Patient with encephalopathy, severe anemia s/p PRBC transfusion. Hgb 9.4 today. Patient has left sided weakness but MRI neg. Patient needs PEG tube. Will talk with family. Hypokalemia. Replace Q6h X 2. Check Mg 10/07/20 Patient with encephalopathy, severe anemia s/p PRBC transfusion. Hgb 9.6 today. Patient has left sided weakness but MRI neg. Patient needs PEG tube. Will talk with family. Hyponatremia of 128. This may be due to D10% he was on prior to NG tube. Stopped 10% Dextrose. Consulted Nephrology 10/08/20 Patient with encephalopathy, severe anemia s/p PRBC transfusion. Hgb 9.6 today. Patient has left sided weakness but MRI neg. Patient needs PEG tube. Hyponatremia worse today 126. This is due to D10% resumed last night because of hypoglycemia. I discussed with Dr. Herrera. Stop 10%Dextrose. Start D5NS Spoke to daughterCindy, yesterday and gave update. She wants PEG tube placed. Discussed plan with PAKO Chambers. He wants to do upper and lower endoscopy to evaluate anemia, before PEG tube 10/09/20 Patient with encephalopathy, severe anemia s/p PRBC transfusion. Hgb 10.3 today. Patient has left sided weakness but MRI neg. Patient needs PEG tube. Hyponatremia still present Na 126 today. This is due to D10% resumed again last night because of hypoglycemia. Nephrology had recommended D5NS but 10% Dextrose restarted overnight because of hypoglycemia. Nurses unable to place NG tube. I discussed with Dr. Otero today and he will do. Spoke to daughterCindy, yesterday and gave update. She wants PEG tube placed. Discussed plan with PAKO Chambers. He wants to do upper and lower endoscopy to evaluate anemia, before PEG tube Today Na still 126. I discussed with Dr. Herrera and he recommended D10NS. I called Pharmacy. They will mix special D10NS drip. Patient had bilateral pneumonia on CXR therefore started iv Antibiotics, blood cultures. yesterday. Consulted ID 10/10/2020. Patient remains encephalopathic with hemoglobin stabilizing yesterday. Recheck H&H. Patient with left-sided weakness but MRI negative. Fluoroscopic NG tube placement completed yesterday. Await GI to perform EGD and colonoscopy. Follow-up hyponatremia with BMP results. Dr. Aldrich Spoke to daughter, Cindy Singh, and gave update. Daughter wants PEG tube placed. Continue IV antibiotics for bilateral pneumonia. ID consulted. Follow-up procalcitonin levels. 10/11/2020. Patient's hemoglobin remained stable today at 9.5. However, patient noted to be hypotensive with systolic blood pressure of 83. Patient received NS 250 cc bolus with improvement of blood pressure systolically to 123. GI plans to perform EGD/colonoscopy tomorrow. Hyponatremia improving. Start IV fluid of normal saline at 75 cc an hour x1 L 10/12/2020. Patient noted to have some gurgling of the upper airway. NG tube was placed to low intermittent suction. Check chest x-ray and KUB to rule out aspiration and/or ileus. Continue to monitor. H/H remained stable. ID stopped antibiotics due to normal procalcitonin. Speech evaluation 10/13/2020. Patient remains encephalopathic. I discussed overall mental status with the daughter yesterday and updated her with plan of care. Neurology reports: CT angio of the head that is a significant narrowing seen in both posterior cerebral arteries - and no signs of large vessel -CT of the head no acute finding but showed a cerebral atrophy with suspicious atrophy and atherosclerotic calcification within the distal right middle cerebral artery. -MRI brain without any acute findings - EEG completed yesterday remarkable for diffuse slowing 3-4 Hz and with occassional triphasic waves , no epileptiform discharges is noted -- full report to follow -Repeat MRI brain showed no acute finding Keppra was decreased to 250 mg IV twice daily and thiamine was added x3 days. No LP for now due to lack of any inflammatory findings. Repeat EEG per neurology. Sodium level has improved. Serum creatinine has increased to 1.6 today. Avoid nephrotoxic agents and monitor I/O's daily. Salt tabs 2 g 3 times daily per nephrology 10/14/2020. Patient remains encephalopathic. MRI, EEG and CT results noted above. Continue supportive care. Defer to neurology recommendations regarding mental status/encephalopathy. Continue salt tabs per nephrology. Follow-up BMP. Avoid nephrotoxic agents and monitor I/O's daily. Continue NG tube feedings. PEG placement per GI. 10/15/2020. Patient noted to have significant respiratory distress. Patient with tachypnea, some accessory muscle use, labored breathing and coarse breath sounds and sonorous respirations. Dr. Maldonado from the emergency department intubated the patient. Dr. Floyd was consulted and notified. The patient will be transferred to the ICU and continued on mechanical ventilation. Follow-up chest x-ray. 10/16: Patient is having persistent hypoglycemia despite being on D10 23% saline at 100ml/hr. given multiple amps of D50 with minimal response. The patient IV fluids changed to D5W at 125. Repeat BMP in the p.m. 10/17: hypoglycemia better, remains on levophed, epi, neoshynephrine, dobumatine and bicarb gtt this morning. RN is slowly titrating vasopressor as tolerated. Updated daughter Mignon today and relayed new findings including posturing of BUE to pain. 10/18: Patient is being slowly weaned off of vasopressor support by RN. Patient remains on phenyl epinephrine, vasopressin, norepinephrine and amiodarone. Nephrology will resume Lasix. Patient is hyponatremic today however he is on a bicarb drip which we will add today. This evening patient noted to be anemic and have low platelets. Transfuse platelets and PRBC. NGT to suction 10/19: remains on vasopressor support, renal will reassess HD tomorrow. Patient with significant edema. Dr. Gorman spoke to family who wishes for code status to not change. 10/20: Amiodarone stopped by cardiology, patient placed on hypertonic saline by nephrology. Patient is tolerating trickle feedings at this time. Patient strep ordered for diuresis. Patient is being weaned off vasopressors as tolerated. 10/21: Patient remains on vasopressors however vasopressors are being weaned as tolerated, dobutamine drip continues, RN and TRUST MAIL CLERK updated family at bedside today via FaceTime. Patient was started on Lasix drip today. Patient had hypokalemia and hypomagnesemia which were repleted. Hospitalist Physical - Constitutional Vitals: Temp Pulse Resp BP Pulse Ox 98.8 F 91 H 30 H 143/83 99 10/21/20 12:08 10/21/20 13:31 10/21/20 13:31 10/21/20 13:31 10/21/20 13:31 General appearance: Present: other (Unresponsive to painful stimuli) - EENT ENT: poor dentition - Neck Neck: Absent: masses or JVD, cervical LAD - Respiratory Respiratory effort: normal Respiratory: bilateral: diminished - Cardiovascular Rhythm: regular Heart Sounds: Present: S1 & S2. Absent: systolic murmur, diastolic murmur - Extremities Extremities: pulses intact, pulses symmetrical Extremity abnormal: edema - Peripheral Assessment Generalized Edema Type: Pitting Edema Degree: 4+ Capillary Refill: < 3 seconds Skin Temperature: Cool Peripheral Pulses: within normal limits - Abdominal General gastrointestinal: soft, non-tender, distended, hypoactive bowel sounds - Integumentary Integumentary: Present: dry - Psychiatric Psychiatric: other - Neurologic Neurologic: other - Allied Health Allied health notes reviewed: nursing, RT, social work HEART Score - HEART Score Troponin: Troponin T < 0.010 ng/mL (0.00-0.029) 10/02/20 23:17 Results - Labs CBC & Chem 7: 10/21/20 05:50 10/21/20 05:50 Labs: Laboratory Last Values WBC 11.1 K/mm3 (4.5-11.0) H 10/21/20 05:50 RBC 3.27 M/mm3 (3.65-5.03) L 10/21/20 05:50 Hgb 7.9 gm/dl (11.8-15.2) L 10/21/20 05:50 Hct 23.9 % (35.5-45.6) L 10/21/20 05:50 MCV 73 fl (84-94) L 10/21/20 05:50 MCH 24 pg (28-32) L 10/21/20 05:50 MCHC 33 % (32-34) 10/21/20 05:50 RDW 31.8 % (13.2-15.2) H 10/21/20 05:50 Plt Count 26 K/mm3 (140-440) L 10/21/20 05:50 Lymph % (Auto) Metal Welder 10/10/20 10:58 [place] % (Auto) 8.3 % (0.0-7.3) H 10/15/20 05:50 Eos % (Auto) 0.3 % (0.0-4.3) 10/15/20 05:50 Baso % (Auto) Metal Welder 10/10/20 10:58 Lymph # (Auto) Metal Welder 10/10/20 10:58 [place] # (Auto) 1.3 K/mm3 (0.0-0.8) H 10/15/20 05:50 Eos # (Auto) 0.0 K/mm3 (0.0-0.4) 10/15/20 05:50 Baso # (Auto) 0.1 K/mm3 (0.0-0.1) 10/15/20 05:50 Add Manual Diff Complete 10/17/20 04:49 Total Counted 100 10/17/20 04:49 Seg Neutrophils % Metal Welder 10/17/20 04:49 Seg Neuts % (Manual) 60.0 % (40.0-70.0) 10/17/20 04:49 Band Neutrophils % 13.0 % 10/17/20 04:49 Lymphocytes % (Manual) 3.0 % (13.4-35.0) L 10/17/20 04:49 Monocytes % (Manual) 6.0 % (0.0-7.3) 10/17/20 04:49 Eosinophils % (Manual) 1.0 % (0.0-4.3) 10/13/20 05:24 Basophils % (Manual) 2.0 % (0.0-1.8) H 10/10/20 10:58 Metamyelocytes % 11.0 % 10/17/20 04:49 Myelocytes % 7.0 % 10/17/20 04:49 Nucleated RBC % 3.0 % (0.0-0.9) H 10/17/20 04:49 Seg Neutrophils # 13.2 K/mm3 (1.8-7.7) H 10/15/20 05:50 Seg Neutrophils # Man 10.6 K/mm3 (1.8-7.7) H 10/17/20 04:49 Band Neutrophils # 2.3 K/mm3 10/17/20 04:49 Lymphocytes # (Manual) 0.5 K/mm3 (1.2-5.4) L 10/17/20 04:49 Abs React Lymphs (Man) 0.0 K/mm3 10/17/20 04:49 Monocytes # (Manual) 1.1 K/mm3 (0.0-0.8) H 10/17/20 04:49 Eosinophils # (Manual) 0.0 K/mm3 (0.0-0.4) 10/17/20 04:49 Basophils # (Manual) 0.0 K/mm3 (0.0-0.1) 10/17/20 04:49 Metamyelocytes # 1.9 K/mm3 10/17/20 04:49 Myelocytes # 1.2 K/mm3 10/17/20 04:49 Promyelocytes # 0.0 K/mm3 10/17/20 04:49 Blast Cells # 0.0 K/mm3 10/17/20 04:49 WBC Morphology Not Reportable 10/17/20 04:49 Hypersegmented Neuts Not Reportable 10/17/20 04:49 Hyposegmented Neuts Not Reportable 10/17/20 04:49 Hypogranular Neuts Not Reportable 10/17/20 04:49 Smudge Cells Not Reportable 10/17/20 04:49 Toxic Granulation Not Reportable 10/17/20 04:49 Toxic Vacuolation Not Reportable 10/17/20 04:49 Dohle Bodies Not Reportable 10/17/20 04:49 Pelger-Huet Anomaly Not Reportable 10/17/20 04:49 Andrés Rods Not Reportable 10/17/20 04:49 Platelet Estimate Consistent w auto 10/17/20 04:49 Clumped Platelets Not Reportable 10/17/20 04:49 Plt Clumps, EDTA Not Reportable 10/17/20 04:49 Large Platelets Not Reportable 10/17/20 04:49 Giant Platelets Rare 10/17/20 04:49 Platelet Satelliting Not Reportable 10/17/20 04:49 Plt Morphology Comment Not Reportable 10/17/20 04:49 RBC Morphology Not Reportable 10/17/20 04:49 Dimorphic RBCs Not Reportable 10/17/20 04:49 Polychromasia Not Reportable 10/17/20 04:49 Hypochromasia 2+ 10/17/20 04:49 Poikilocytosis 2+ 10/17/20 04:49 Anisocytosis 3+ 10/17/20 04:49 Microcytosis Not Reportable 10/17/20 04:49 Macrocytosis Not Reportable 10/17/20 04:49 Spherocytes Not Reportable 10/17/20 04:49 Pappenheimer Bodies Not Reportable 10/17/20 04:49 Sickle Cells Not Reportable 10/17/20 04:49 Target Cells Not Reportable 10/17/20 04:49 Tear Drop Cells Not Reportable 10/17/20 04:49 Ovalocytes Not Reportable 10/17/20 04:49 Helmet Cells Not Reportable 10/17/20 04:49 Freedman-Tamarack Bodies Not Reportable 10/17/20 04:49 [place] Rings Not Reportable 10/17/20 04:49 [place] Cells 1+ 10/17/20 04:49 Bite Cells Not Reportable 10/17/20 04:49 Crenated Cell Not Reportable 10/17/20 04:49 Elliptocytes Not Reportable 10/17/20 04:49 Acanthocytes (Spur) Not Reportable 10/17/20 04:49 Rouleaux Not Reportable 10/17/20 04:49 Hemoglobin C Crystals Not Reportable 10/17/20 04:49 Schistocytes Not Reportable 10/17/20 04:49 Malaria parasites Not Reportable 10/17/20 04:49 Edreck Bodies Not Reportable 10/17/20 04:49 Hem Pathologist Commnt No 10/17/20 04:49 PT 30.1 Sec. (12.2-14.9) H 10/20/20 08:43 INR 2.82 (0.87-1.13) H 10/20/20 08:43 APTT 57.6 Sec. (24.2-36.6) H 10/02/20 23:17 Thrombin Time 17.8 Sec. (15.1-19.6) 10/02/20 23:17 ABG pH 7.449 (7.320-7.450) 10/21/20 04:00 POC ABG pCO2 32.5 mmHg (32.0-48.0) 10/21/20 04:00 POC ABG pO2 66.6 mmHg (83-108) L 10/21/20 04:00 POC ABG HCO3 22.0 10/21/20 04:00 ABG O2 Saturation 93.2 (0-100) 10/21/20 04:00 POC ABG Base Excess -1.6 10/21/20 04:00 ABG Hemoglobin 8.7 (12.0-17.5) L 10/21/20 04:00 ABG Oxyhemoglobin 92.1 (94-98) L 10/21/20 04:00 ABG Methemoglobin 0.3 (0.0-1.5) 10/21/20 04:00 ABG Sodium 117.9 mmol/L (136.0-145.0) L 10/21/20 04:00 ABG Potassium 3.2 mmol/L (3.40-4.50) L 10/21/20 04:00 ABG Chloride 93.0 mmol/L (98-107) L 10/21/20 04:00 ABG Glucose 76 mg/dL (65-95) 10/21/20 04:00 Carboxyhemoglobin 0.9 (0.5-1.5) 10/21/20 04:00 FiO2 % 40.0 10/21/20 04:00 Sodium 122 mmol/L (137-145) L 10/21/20 05:50 Potassium 3.4 mmol/L (3.6-5.0) L 10/21/20 05:50 Chloride 91.1 mmol/L (98-107) L 10/21/20 05:50 Carbon Dioxide 24 mmol/L (22-30) 10/21/20 05:50 Anion Gap 10 mmol/L 10/21/20 05:50 BUN 38 mg/dL (9-20) H 10/21/20 05:50 Creatinine 3.2 mg/dL (0.8-1.3) H 10/21/20 05:50 Estimated GFR 23 ml/min 10/21/20 05:50 BUN/Creatinine Ratio 12 % 10/21/20 05:50 Glucose 56 mg/dL (75-100) L 10/21/20 05:50 POC Glucose 61 mg/dL (70-105) L 10/21/20 14:05 Hemoglobin A1c 5.2 % (4-6) 10/03/20 05:57 Osmolality 267 Mosm/kg 10/07/20 13:54 Lactic Acid 1.50 mmol/L (0.7-2.0) 10/03/20 04:43 Calcium 7.8 mg/dL (8.4-10.2) L 10/21/20 05:50 Phosphorus 2.60 mg/dL (2.5-4.5) D 10/21/20 05:50 Magnesium 1.60 mg/dL (1.7-2.3) L 10/21/20 05:50 Iron 42 ug/dL (49-181) L 10/03/20 05:57 TIBC 305 mcg/dL (250-450) 10/03/20 05:57 Total Bilirubin 1.60 mg/dL (0.1-1.2) H 10/20/20 08:43 Direct Bilirubin 0.9 mg/dL (0-0.2) H 10/19/20 04:51 Indirect Bilirubin 0.6 mg/dL 10/19/20 04:51 AST 27 units/L (5-40) 10/20/20 08:43 ALT 27 units/L (7-56) 10/20/20 08:43 Alkaline Phosphatase 152 units/L (35-129) H 10/20/20 08:43 Ammonia 22.0 umol/L (25-60) L 10/02/20 23:17 Total Creatine Kinase 88 units/L (55-170) 10/02/20 23:17 CK-MB (CK-2) 7.5 ng/mL (0.0-4.0) H 10/02/20 23:17 CK-MB (CK-2) Rel Index 8.5 (0-4) H 10/02/20 23:17 Troponin T < 0.010 ng/mL (0.00-0.029) 10/02/20 23:17 Total Protein 4.5 g/dL (6.3-8.2) L 10/20/20 08:43 Albumin 1.6 g/dL (3.9-5) L 10/20/20 08:43 Albumin/Globulin Ratio 0.6 % 10/20/20 08:43 Lipase 17 units/L (13-60) 10/16/20 22:58 Procalcitonin 0.10 ng/mL (<0.15) 10/10/20 10:58 TSH 2.130 mlU/mL (0.270-4.200) 10/07/20 13:54 Total Cortisol 17.4 mcg/dL () 10/09/20 02:46 Arterial Blood Glucose 76 mg/dL (65-95) 10/21/20 04:00 Arterial Blood Ionized Calcium 4.4 mg/dL (4.6-5.3) L 10/21/20 04:00 Urine Eosinophils None seen (None Seen) 10/14/20 Unknown Urine Osmolality 223 Mosm/kg 10/07/20 Unknown Urine Creatinine 144.2 mg/dL (0.1-20.0) H 10/14/20 Unknown Protein/Creatinin Ratio 0.67 10/14/20 Unknown Urine Sodium 10 mmol/L 10/14/20 Unknown Urine Total Protein 97 mg/dL (5-11.8) H 10/14/20 Unknown Salicylates < 0.3 mg/dL (2.8-20.0) L 10/02/20 23:17 Acetaminophen 5.0 ug/mL (10.0-30.0) L 10/02/20 23:17 Plasma/Serum Alcohol < 0.01 % (0-0.07) 10/02/20 23:17 Coronavirus (PCR) Negative (Negative) 10/14/20 08:00 Blood Type O POSITIVE 10/18/20 19:08 Antibody Screen Negative 10/18/20 19:08 Crossmatch See Detail 10/18/20 19:08 Munoz/IV: Voiding Method Indwelling Catheter Active Medications - Current Medications Current Medications: Generic Name Dose Route Start Last Admin Trade Name Freq PRN Reason Stop Dose Admin Acetaminophen 650 mg 10/03/20 02:10 10/06/20 15:28 Acetaminophen 325 Mg Tab PO 650 mg Q4H PRN Administration Pain MILD(1-3)/Fever >100.5/ROMERO Al Hydrox/Mg Hydrox/Simethicone 30 ml 10/03/20 02:10 Alum-Mag Hydroxide-Simethicone [phone]/5ml Oral Liqd 30 Ml PO Q4H PRN Indigestion Lipase/Protease/Amylase 1 each 10/03/20 16:51 Lipase 10,500/Protease 25,000/Amylase 43,750 (Units) Dr Cap FEEDTUBE PRN PRN For Clogged Feeding Tube Dextrose 50 ml 10/16/20 12:42 10/21/20 01:03 Dextrose 50% In Water (25gm) 50 Ml Syringe IV 50 ml Q30MIN PRN Administration Hypoglycemia Protocol Ferrous Sulfate 308 mg 10/16/20 10:00 10/21/20 11:34 Ferrous Sulfate 308 Mg (62mg Elemental Iron) / 7 Ml Elixir FEEDTUBE 308 mg DAILY JOSE Administration Folic Acid 1 mg 10/03/20 10:00 10/21/20 11:34 Folic Acid 1 Mg Tab PO 1 mg QDAY JOSE Administration Hydrocortisone Sodium Succinate 100 mg 10/19/20 18:00 10/21/20 11:37 Hydrocortisone Sod Succ 100 Mg/2 Ml Vial IV 100 mg Q8H JOSE Administration Levetiracetam 250 mg/ Dextrose 102.5 mls @ 400 mls/hr 10/10/20 22:00 10/21/20 11:33 IV 400 mls/hr Q12HR JOSE Administration Vasopressin 20 unit/ Sodium 101 mls @ 9.09 mls/hr 10/16/20 13:00 10/21/20 12:20 Chloride IV 0.03 units/min TITR JOSE 9.09 mls/hr Administration Protocol 0.03 UNITS/MIN Phenylephrine HCl 100 mg/ 100 mls @ 3 mls/hr 10/16/20 18:00 10/20/20 11:50 Sodium Chloride IV 0 mcg/min TITR JOSE 0 mls/hr Titration Protocol 50 MCG/MIN NORepinephrine/NS 8 MG-250 ML 8 mg in 250 mls @ 3.75 mls/hr 10/16/20 19:00 10/21/20 11:37 Norepinephrine/Ns 8 Mg-250 Ml (Double Conc) IV 8 mcg/min TITRATE JOSE 15 mls/hr Administration Protocol 2 MCG/MIN Dobutamine HCl/Dextrose 500 mg in 250 mls @ 6.908 mls/hr 10/16/20 19:00 10/21/20 11:32 Dobutrex Drip 500mg/D5w 250ml IV 5 mcg/kg/min DIRECT JOSE 13.815 mls/hr Administration Protocol 2.5 MCG/KG/MIN Epinephrine 8 mg/ Sodium 250 mls @ 0 mls/hr 10/16/20 23:45 10/17/20 11:33 Chloride IV 0 mls/hr TITR JOSE Infusion Cefepime HCl 2 gm in 100 mls @ 200 mls/hr 10/17/20 22:00 10/20/20 22:38 Cefepime/Ns 2 Gm/100 Ml IV 10/22/20 22:29 200 mls/hr Q24H JOSE Administration Protocol Dextrose/Sodium Chloride 1,000 mls @ 125 mls/hr 10/21/20 02:00 10/21/20 02:34 D5ns IV 125 mls/hr DIRECT JOSE Administration Furosemide 100 mg/ Sodium 100 mls @ 5 mls/hr 10/21/20 08:00 10/21/20 11:31 Chloride IV 5 mls/hr TITR JOSE Administration As Directed Magnesium Sulfate 4 gm in 100 mls @ 25 mls/hr 10/21/20 11:00 10/21/20 11:32 Magnesium Sulfate 4gm/100ml IV 10/21/20 14:59 25 mls/hr ONCE ONE Administration Magnesium Hydroxide 30 ml 10/03/20 02:10 Magnesium Hydroxide (Mom) Oral Liqd Udc PO Q4H PRN Constipation Metoclopramide HCl 5 mg 10/17/20 09:00 Metoclopramide 10 Mg/2 Ml Inj IV Q6H PRN Nausea And Vomiting Ondansetron HCl 4 mg 10/03/20 02:10 10/07/20 23:19 Ondansetron 4 Mg/2 Ml Inj IV 4 mg Q8H PRN Administration Nausea And Vomiting Pantoprazole Sodium 40 mg 10/04/20 15:00 10/21/20 11:34 Pantoprazole 40 Mg Inj IV 40 mg QDAY JOSE Administration Promethazine HCl 25 mg 10/03/20 02:10 Promethazine 25 Mg Rect Supp VT Q6H PRN N/V IF NPO AND NO IV ACCESS Senna 8.6 mg 10/03/20 02:10 Sennosides 8.6 Mg Tab PO Q12HR PRN Constipation Simple Syrup 15 ml 10/03/20 16:51 10/19/20 02:08 Simple Syrup 15 Ml FEEDTUBE 15 ml PRN PRN Administration Hypoglycemia Simple Syrup 30 ml 10/03/20 16:51 10/16/20 22:02 Simple Syrup 15 Ml FEEDTUBE 30 ml PRN PRN Administration Hypoglycemia Sodium Bicarbonate 325 mg 10/03/20 16:51 Sodium Bicarbonate 325 Mg Tab FEEDTUBE PRN PRN For Clogged Feeding Tube Nutrition/Malnutrition Assess - Dietary Evaluation Nutrition/Malnutrition Findings: Nutrition Notes Start: 10/03/20 08:51 Freq: Status: Active Protocol: Document 10/20/20 11:01 (Rec: 10/20/20 11:05 [id number]) Nutrition Notes Initial or Follow up Reassessment Current Diagnosis Diabetes Other Pertinent Diagnosis AMS, hypothermia, pneu, anemia , atherosclerotic cerebrovascular disease Current Diet Nepro 1.8 at 40 ml/hr Labs/Tests Na 119 BUN 35 Cr 3.3 Mg 1.3 Pertinent Medications Sodium Bicarb at 125 ml/hr Lasix Vasopressin Height 5 ft 10 in Weight 92.1 kg [place] Body Weight (kg) 75.45 BMI 29.1 Weight Status Overweight Subjective/Other Information TF turned back on this AM at 20 ml/hr. Burn Absent Trauma Absent Difficulty In Swallowing Current % PO Negligible Minimum of two criteria No Fluid Accumulation Moderate to Severe (severe) #1 Nutrition Diagnosis Swallowing difficulty Diagnosis Progress(for reassessment Continues documentation) Is patient on ventilator? No Is Patient Ambulatory and/or Out of Bed No REE-([facility]-confined to bed) 1993.892 Kcal/Kg value to use for calculation 20 Approximate Energy Requirements Using 1842 kcal/Kg Calculation Used for Recommendations Kcal/kg Additional Notes Protein: (1-1.2g/kg) 84-101g Fluid: 1 ml/kcal Nutrition Intervention Nutrition Support: Nepro at 40ml/hour. For hyponatremia flush 50 ml q4h, once resolved resume flush at 170 ml q4h Kcal 1,728 Protein (gm) 78 Fluid (mL) 698 Goal #1 Meet at least 75% of protein and energy needs via TF Anticipated Discharge Needs: continue TF regimen Follow-Up By: 10/23/20 Additional Comments F/u: TF at goal and tolerance <TJ GORMAN - Last Filed: 10/22/20 11:06> History Interval history: I saw and evaluated the patient. Discussed with the nurse practitioner and agree with their findings and plan as documented in this note. Hospitalist Physical - Constitutional Vitals: Temp Pulse Resp BP Pulse Ox 97.5 F L 91 H 16 94/56 98 10/22/20 03:11 10/22/20 10:15 10/22/20 10:15 10/22/20 10:15 10/22/20 10:15 HEART Score - HEART Score Troponin: Troponin T < 0.010 ng/mL (0.00-0.029) 10/02/20 23:17 Results - Labs CBC & Chem 7: 10/22/20 06:00 10/22/20 02:43 Labs: Laboratory Last Values WBC 6.5 K/mm3 (4.5-11.0) 10/22/20 06:00 RBC 3.29 M/mm3 (3.65-5.03) L 10/22/20 06:00 Hgb 8.0 gm/dl (11.8-15.2) L 10/22/20 06:00 Hct 24.3 % (35.5-45.6) L 10/22/20 06:00 MCV 74 fl (84-94) L 10/22/20 06:00 MCH 24 pg (28-32) L 10/22/20 06:00 MCHC 33 % (32-34) 10/22/20 06:00 RDW 32.2 % (13.2-15.2) H 10/22/20 06:00 Plt Count 21 K/mm3 (140-440) L 10/22/20 06:00 Lymph % (Auto) [employer] 10/10/20 10:58 [place] % (Auto) 8.3 % (0.0-7.3) H 10/15/20 05:50 Eos % (Auto) 0.3 % (0.0-4.3) 10/15/20 05:50 Baso % (Auto) Metal Welder 10/10/20 10:58 Lymph # (Auto) Metal Welder 10/10/20 10:58 [place] # (Auto) 1.3 K/mm3 (0.0-0.8) H 10/15/20 05:50 Eos # (Auto) 0.0 K/mm3 (0.0-0.4) 10/15/20 05:50 Baso # (Auto) 0.1 K/mm3 (0.0-0.1) 10/15/20 05:50 Add Manual Diff Complete 10/21/20 Unknown Total Counted 100 10/21/20 Unknown Seg Neutrophils % Metal Welder 10/21/20 Unknown Seg Neuts % (Manual) 83.0 % (40.0-70.0) H 10/21/20 Unknown Band Neutrophils % 13.0 % 10/17/20 04:49 Lymphocytes % (Manual) 10.0 % (13.4-35.0) L 10/21/20 Unknown Monocytes % (Manual) 7.0 % (0.0-7.3) 10/21/20 Unknown Eosinophils % (Manual) 1.0 % (0.0-4.3) 10/13/20 05:24 Basophils % (Manual) 2.0 % (0.0-1.8) H 10/10/20 10:58 Metamyelocytes % 11.0 % 10/17/20 04:49 Myelocytes % 7.0 % 10/17/20 04:49 Nucleated RBC % 2.0 % (0.0-0.9) H 10/21/20 Unknown Seg Neutrophils # 13.2 K/mm3 (1.8-7.7) H 10/15/20 05:50 Seg Neutrophils # Man 9.0 K/mm3 (1.8-7.7) H 10/21/20 Unknown Band Neutrophils # 0.0 K/mm3 10/21/20 Unknown Lymphocytes # (Manual) 1.1 K/mm3 (1.2-5.4) L 10/21/20 Unknown Abs React Lymphs (Man) 0.0 K/mm3 10/21/20 Unknown Monocytes # (Manual) 0.8 K/mm3 (0.0-0.8) 10/21/20 Unknown Eosinophils # (Manual) 0.0 K/mm3 (0.0-0.4) 10/21/20 Unknown Basophils # (Manual) 0.0 K/mm3 (0.0-0.1) 10/21/20 Unknown Metamyelocytes # 0.0 K/mm3 10/21/20 Unknown Myelocytes # 0.0 K/mm3 10/21/20 Unknown Promyelocytes # 0.0 K/mm3 10/21/20 Unknown Blast Cells # 0.0 K/mm3 10/21/20 Unknown WBC Morphology Not Reportable 10/21/20 Unknown WBC Morphology TNR 10/21/20 Unknown Hypersegmented Neuts Not Reportable 10/21/20 Unknown Hyposegmented Neuts Not Reportable 10/21/20 Unknown Hypogranular Neuts Not Reportable 10/21/20 Unknown Smudge Cells Not Reportable 10/21/20 Unknown Toxic Granulation Not Reportable 10/21/20 Unknown Toxic Vacuolation Not Reportable 10/21/20 Unknown Dohle Bodies Not Reportable 10/21/20 Unknown Pelger-Huet Anomaly Not Reportable 10/21/20 Unknown Andrés Rods Not Reportable 10/21/20 Unknown Platelet Estimate Consistent w auto 10/21/20 Unknown Clumped Platelets Not Reportable 10/21/20 Unknown Plt Clumps, EDTA Not Reportable 10/21/20 Unknown Large Platelets Not Reportable 10/21/20 Unknown Giant Platelets Not Reportable 10/21/20 Unknown Platelet Satelliting Not Reportable 10/21/20 Unknown Plt Morphology Comment Not Reportable 10/21/20 Unknown RBC Morphology Not Reportable 10/21/20 Unknown Dimorphic RBCs Not Reportable 10/21/20 Unknown Polychromasia Not Reportable 10/21/20 Unknown Hypochromasia Few 10/21/20 Unknown Poikilocytosis Not Reportable 10/21/20 Unknown Anisocytosis Not Reportable 10/21/20 Unknown Microcytosis Not Reportable 10/21/20 Unknown Macrocytosis Not Reportable 10/21/20 Unknown Spherocytes Not Reportable 10/21/20 Unknown Pappenheimer Bodies Not Reportable 10/21/20 Unknown Sickle Cells Not Reportable 10/21/20 Unknown Target Cells 1+ 10/21/20 Unknown Tear Drop Cells Few 10/21/20 Unknown Ovalocytes Not Reportable 10/21/20 Unknown Helmet Cells Not Reportable 10/21/20 Unknown Fre[place]man-Tamarack Bodies Not Reportable 10/21/20 Unknown [place] Rings Not Reportable 10/21/20 Unknown [place] Cells Few 10/21/20 Unknown Bite Cells Not Reportable 10/21/20 Unknown Crenated Cell Not Reportable 10/21/20 Unknown Elliptocytes Not Reportable 10/21/20 Unknown Acanthocytes (Spur) Not Reportable 10/21/20 Unknown Rouleaux Not Reportable 10/21/20 Unknown Hemoglobin C Crystals Not Reportable 10/21/20 Unknown Schistocytes Not Reportable 10/21/20 Unknown Malaria parasites Not Reportable 10/21/20 Unknown Dereck Bodies Not Reportable 10/21/20 Unknown Hem Pathologist Commnt No 10/21/20 Unknown PT 27.0 Sec. (12.2-14.9) H 10/21/20 Unknown INR 2.44 (0.87-1.13) H 10/21/20 Unknown APTT 61.4 Sec. (24.2-36.6) H* 10/21/20 Unknown Thrombin Time 17.8 Sec. (15.1-19.6) 10/02/20 23:17 Fibrinogen 482 mg/dl (211-480) H 10/21/20 Unknown D-Dimer 1992.93 ng/mlDDU (0-234) H 10/21/20 Unknown ABG pH 7.431 (7.320-7.450) 10/22/20 04:00 POC ABG pCO2 29.1 mmHg (32.0-48.0) L 10/22/20 04:00 POC ABG pO2 64.1 mmHg (83-108) L 10/22/20 04:00 POC ABG HCO3 18.9 10/22/20 04:00 ABG O2 Saturation 91.3 (0-100) 10/22/20 04:00 POC ABG Base Excess -4.7 10/22/20 04:00 ABG Hemoglobin 8.2 (12.0-17.5) L 10/22/20 04:00 ABG Oxyhemoglobin 90.6 (94-98) L 10/22/20 04:00 ABG Methemoglobin 0.3 (0.0-1.5) 10/22/20 04:00 ABG Sodium 118.8 mmol/L (136.0-145.0) L 10/22/20 04:00 ABG Potassium 3.2 mmol/L (3.40-4.50) L 10/21/20 04:00 ABG Chloride 96.0 mmol/L (98-107) L 10/22/20 04:00 ABG Glucose 117 mg/dL (65-95) H 10/22/20 04:00 Carboxyhemoglobin 0.5 (0.5-1.5) 10/22/20 04:00 FiO2 % 40.0 10/22/20 04:00 Sodium 122 mmol/L (137-145) L 10/22/20 02:43 Potassium 3.1 mmol/L (3.6-5.0) L 10/22/20 02:43 Chloride 92.9 mmol/L (98-107) L 10/22/20 02:43 Carbon Dioxide 23 mmol/L (22-30) 10/22/20 02:43 Anion Gap 9 mmol/L 10/22/20 02:43 BUN 44 mg/dL (9-20) H 10/22/20 02:43 Creatinine 3.2 mg/dL (0.8-1.3) H 10/22/20 02:43 Estimated GFR 23 ml/min 10/22/20 02:43 BUN/Creatinine Ratio 14 % 10/22/20 02:43 Glucose 97 mg/dL (75-100) 10/22/20 02:43 POC Glucose 93 mg/dL (70-105) 10/22/20 10:09 Hemoglobin A1c 5.2 % (4-6) 10/03/20 05:57 Osmolality 267 Mosm/kg 10/07/20 13:54 Lactic Acid 1.50 mmol/L (0.7-2.0) 10/03/20 04:43 Calcium 7.8 mg/dL (8.4-10.2) L 10/22/20 02:43 Phosphorus 2.60 mg/dL (2.5-4.5) D 10/21/20 05:50 Magnesium 1.60 mg/dL (1.7-2.3) L 10/21/20 05:50 Iron 42 ug/dL (49-181) L 10/03/20 05:57 TIBC 305 mcg/dL (250-450) 10/03/20 05:57 Total Bilirubin 1.60 mg/dL (0.1-1.2) H 10/20/20 08:43 Direct Bilirubin 0.9 mg/dL (0-0.2) H 10/19/20 04:51 Indirect Bilirubin 0.6 mg/dL 10/19/20 04:51 AST 27 units/L (5-40) 10/20/20 08:43 ALT 27 units/L (7-56) 10/20/20 08:43 Alkaline Phosphatase 152 units/L (35-129) H 10/20/20 08:43 Ammonia 22.0 umol/L (25-60) L 10/02/20 23:17 Total Creatine Kinase 88 units/L (55-170) 10/02/20 23:17 CK-MB (CK-2) 7.5 ng/mL (0.0-4.0) H 10/02/20 23:17 CK-MB (CK-2) Rel Index 8.5 (0-4) H 10/02/20 23:17 Troponin T < 0.010 ng/mL (0.00-0.029) 10/02/20 23:17 Total Protein 4.5 g/dL (6.3-8.2) L 10/20/20 08:43 Albumin 1.6 g/dL (3.9-5) L 10/20/20 08:43 Albumin/Globulin Ratio 0.6 % 10/20/20 08:43 Lipase 17 units/L (13-60) 10/16/20 22:58 Procalcitonin 0.10 ng/mL (<0.15) 10/10/20 10:58 TSH 2.130 mlU/mL (0.270-4.200) 10/07/20 13:54 Total Cortisol 17.4 mcg/dL () 10/09/20 02:46 Arterial Blood Glucose 117 mg/dL (65-95) H 10/22/20 04:00 Arterial Blood Ionized Calcium 4.6 mg/dL (4.6-5.3) 10/22/20 04:00 Urine Eosinophils None seen (None Seen) 10/14/20 Unknown Urine Osmolality 223 Mosm/kg 10/07/20 Unknown Urine Creatinine 144.2 mg/dL (0.1-20.0) H 10/14/20 Unknown Protein/Creatinin Ratio 0.67 10/14/20 Unknown Urine Sodium 10 mmol/L 10/14/20 Unknown Urine Total Protein 97 mg/dL (5-11.8) H 10/14/20 Unknown Salicylates < 0.3 mg/dL (2.8-20.0) L 10/02/20 23:17 Acetaminophen 5.0 ug/mL (10.0-30.0) L 10/02/20 23:17 Plasma/Serum Alcohol < 0.01 % (0-0.07) 10/02/20 23:17 Coronavirus (PCR) Negative (Negative) 10/14/20 08:00 Blood Type O POSITIVE 10/18/20 19:08 Antibody Screen Negative 10/18/20 19:08 Crossmatch See Detail 10/18/20 19:08 Munoz/IV: Voiding Method Indwelling Catheter Active Medications - Current Medications Current Medications: Generic Name Dose Route Start Last Admin Trade Name Freq PRN Reason Stop Dose Admin Acetaminophen 650 mg 10/03/20 02:10 10/06/20 15:28 Acetaminophen 325 Mg Tab PO 650 mg Q4H PRN Administration Pain MILD(1-3)/Fever >100.5/ROMERO Al Hydrox/Mg Hydrox/Simethicone 30 ml 10/03/20 02:10 Alum-Mag Hydroxide-Simethicone [id number]/5ml Oral Liqd 30 Ml PO Q4H PRN Indigestion Lipase/Protease/Amylase 1 each 10/03/20 16:51 Lipase 10,500/Protease 25,000/Amylase 43,750 (Units) Dr Reis FEEDTUBE PRN PRN For Clogged Feeding Tube Dextrose 50 ml 10/16/20 12:42 10/21/20 17:39 Dextrose 50% In Water (25gm) 50 Ml Syringe IV 50 ml Q30MIN PRN Administration Hypoglycemia Protocol Fentanyl 50 mcg 10/22/20 10:00 Fentanyl 100 Mcg/2 Ml Inj IV Q4HR PRN Pain , Severe (7-10) Ferrous Sulfate 308 mg 10/16/20 10:00 10/22/20 09:39 Ferrous Sulfate 308 Mg (62mg Elemental Iron) / 7 Ml Elixir FEEDTUBE 308 mg DAILY JOSE Administration Folic Acid 1 mg 10/03/20 10:00 10/22/20 09:40 Folic Acid 1 Mg Tab PO 1 mg QDAY JOSE Administration Hydrocortisone Sodium Succinate 100 mg 10/19/20 18:00 10/22/20 10:11 Hydrocortisone Sod Succ 100 Mg/2 Ml Vial IV 100 mg Q8H JOSE Administration Levetiracetam 250 mg/ Dextrose 102.5 mls @ 400 mls/hr 10/10/20 22:00 10/22/20 09:39 IV 400 mls/hr Q12HR JOSE Administration Vasopressin 20 unit/ Sodium 101 mls @ 9.09 mls/hr 10/16/20 13:00 10/21/20 23:15 Chloride IV 0.03 units/min TITR JOSE 9.09 mls/hr Administration Protocol 0.03 UNITS/MIN Phenylephrine HCl 100 mg/ 100 mls @ 3 mls/hr 10/16/20 18:00 10/20/20 11:50 Sodium Chloride IV 0 mcg/min TITR JOSE 0 mls/hr Titration Protocol 50 MCG/MIN NORepinephrine/NS 8 MG-250 ML 8 mg in 250 mls @ 3.75 mls/hr 10/16/20 19:00 16:56 Norepinephrine/Ns 8 Mg-250 Ml (Double Conc) IV 0 mcg/min TITRATE JOSE 0 mls/hr Titration Protocol 2 MCG/MIN Dobutamine HCl/Dextrose 500 mg in 250 mls @ 6.908 mls/hr 10/16/20 19:00 10/21/20 11:32 Dobutrex Drip 500mg/D5w 250ml IV 5 mcg/kg/min DIRECT JOSE 13.815 mls/hr Administration Protocol 2.5 MCG/KG/MIN Epinephrine 8 mg/ Sodium 250 mls @ 0 mls/hr 10/16/20 23:45 10/17/20 11:33 Chloride IV 0 mls/hr TITR JOSE Infusion Cefepime HCl 2 gm in 100 mls @ 200 mls/hr 10/17/20 22:00 10/21/20 23:13 Cefepime/Ns 2 Gm/100 Ml IV 10/22/20 22:29 200 mls/hr Q24H JOSE Administration Protocol Furosemide 100 mg/ Sodium 100 mls @ 5 mls/hr 10/21/20 08:00 10/22/20 07:50 Chloride IV 5 mls/hr TITR JOSE Administration As Directed Magnesium Hydroxide 30 ml 10/03/20 02:10 Magnesium Hydroxide (Mom) Oral Liqd Udc PO Q4H PRN Constipation Metoclopramide HCl 5 mg 10/17/20 09:00 Metoclopramide 10 Mg/2 Ml Inj IV Q6H PRN Nausea And Vomiting Ondansetron HCl 4 mg 10/03/20 02:10 10/07/20 23:19 Ondansetron 4 Mg/2 Ml Inj IV 4 mg Q8H PRN Administration Nausea And Vomiting Pantoprazole Sodium 40 mg 10/04/20 15:00 10/22/20 09:39 Pantoprazole 40 Mg Inj IV 40 mg QDAY JOSE Administration Potassium Chloride 40 meq 10/22/20 10:00 10/22/20 10:11 Potassium Chloride 20 Meq Packet FEEDTUBE 10/22/20 14:01 40 meq Q4H JOSE Administration Promethazine HCl 25 mg 10/03/20 02:10 Promethazine 25 Mg Rect Supp VT Q6H PRN N/V IF NPO AND NO IV ACCESS Senna 8.6 mg 10/03/20 02:10 Sennosides 8.6 Mg Tab PO Q12HR PRN Constipation Simple Syrup 15 ml 10/03/20 16:51 10/19/20 02:08 Simple Syrup 15 Ml FEEDTUBE 15 ml PRN PRN Administration Hypoglycemia Simple Syrup 30 ml 10/03/20 16:51 10/16/20 22:02 Simple Syrup 15 Ml FEEDTUBE 30 ml PRN PRN Administration Hypoglycemia Sodium Bicarbonate 325 mg 10/03/20 16:51 Sodium Bicarbonate 325 Mg Tab FEEDTUBE PRN PRN For Clogged Feeding Tube Nutrition/Malnutrition Assess - Dietary Evaluation Nutrition/Malnutrition Findings: Nutrition Notes Start: 10/03/20 08:5 1 Freq: Status: Active Protocol: Document 10/20/20 11:01 (Rec: 10/20/20 11:05 [id number]) Nutrition Notes Initial or Follow up Reassessment Current Diagnosis Diabetes Other Pertinent Diagnosis AMS, hypothermia, pneu, anemia , atherosclerotic cerebrovascular disease Current Diet Nepro 1.8 at 40 ml/hr Labs/Tests Na 119 BUN 35 Cr 3.3 Mg 1.3 Pertinent Medications Sodium Bicarb at 125 ml/hr Lasix Vasopressin Height 5 ft 10 in Weight 92.1 kg [place] Body Weight (kg) 75.45 BMI 29.1 Weight Status Overweight Subjective/Other Information TF turned back on this AM at 20 ml/hr. Burn Absent Trauma Absent Difficulty In Swallowing Current % PO Negligible Minimum of two criteria No Fluid Accumulation Moderate to Severe (severe) #1 Nutrition Diagnosis Swallowing difficulty Diagnosis Progress(for reassessment Continues documentation) Is patient on ventilator? No Is Patient Ambulatory and/or Out of Bed No REE-([facility]-confined to bed) 1993.892 Kcal/Kg value to use for calculation 20 Approximate Energy Requirements Using 1842 kcal/Kg Calculation Used for Recommendations Kcal/kg Additional Notes Protein: (1-1.2g/kg) 84-101g Fluid: 1 ml/kcal Nutrition Intervention Nutrition Support: Nepro at 40ml/hour. For hyponatremia flush 50 ml q4h, once resolved resume flush at 170 ml q4h Kcal 1,728 Protein (gm) 78 Fluid (mL) 698 Goal #1 Meet at least 75% of protein and energy needs via TF Anticipated Discharge Needs: continue TF regimen Follow-Up By: 10/23/20 Additional Comments F/u: TF at goal and tolerance
[2020-10-21 17:23] LABS: Hematocrit 24.8 % (35.5-45.6); Hemoglobin 8.4 gm/dl (11.8-15.2); Mean Corpuscular HGB Conc 34 % (32-34); Mean Corpuscular Volume 73 fl (84-94)
[2020-10-21 17:25] LABS: Red Cell Distribution Width 31.5 % (13.2-15.2)
[2020-10-21 17:26] LABS: Platelet Count 21 K/mm3 (140-440)
[2020-10-21 17:28] LABS: INR 2.44 (0.87-1.13)
[2020-10-21 17:31] LABS: Calcium 7.6 mg/dL (8.4-10.2)
[2020-10-21 17:41] LABS: Partial Thromboplastin Time 61.4 Sec. (24.2-36.6)
[2020-10-21 18:41] LABS: Total Cells Counted 100
[2020-10-21 18:44] LABS: Target Cells 1+
[2020-10-21 18:47] LABS: Tear Drop Cells Few
[2020-10-21 18:48] LABS: Hypochromasia Few
[2020-10-21 18:49] LABS: Burr Cells Few
[2020-10-21 18:50] LABS: Platelet Estimate Consistent w Auto
[2020-10-21] MEDS: CEFEPIME/NS 2 GM/100 ML 2 GM/100 ML BAG IV SCH (23:13)
[2020-10-22] MEDS: D5W/0.9% NACL 1,000 ML IV SCH (00:52)
[2020-10-22] MEDS: HYDROCORTISONE SOD SUCC 100 MG/2 ML VIAL IV SCH ×3 (02:41→19:06)
[2020-10-22 03:18] LABS: Calcium 7.8 mg/dL (8.4-10.2)
[2020-10-22 06:36] LABS: Hematocrit 24.3 % (35.5-45.6); Mean Corpuscular HGB Conc 33 % (32-34); Mean Corpuscular Volume 74 fl (84-94); Red Blood Count 3.29 M/mm3 (3.65-5.03)
[2020-10-22 06:41] LABS: Red Cell Distribution Width 32.2 % (13.2-15.2)
[2020-10-22] MEDS: FUROSEMIDE 100 MG in SODIUM CHLORIDE 0.9% 90 ML IV SCH (07:50)
[2020-10-22] MEDS ORDERED: POTASSIUM CHLORIDE ER 20 MEQ TAB PO SCH (09:00)
[2020-10-22] MEDS: levETIRAcetam 250 MG in DEXTROSE 5% IN WATER 100 ML IV SCH ×2 (09:39→22:00)
[2020-10-22] MEDS: MULTIVITAMIN / MINERAL ORAL LIQUID 15 ML PO SCH (09:39)
[2020-10-22] MEDS: PANTOPRAZOLE 40 MG INJ IV SCH (09:39)
[2020-10-22] MEDS: FERROUS SULFATE 308 MG (62mg Elemental Iron) / 7 ML ELIXIR FEEDTUBE SCH (09:39)
[2020-10-22] MEDS: FOLIC ACID 1 MG TAB PO SCH (09:40)
--- NOTE | 2020-10-22 10:02 | Progress Note ---
Assessment and Plan Assessment and Plan Acute encephalopathy Hyponatremia Hypothermia, resolved Pulmonary infiltrate in right lung on CXR Atherosclerotic cerebrovascular disease Severe anemia -possible GI bleed Severe protein-calorie malnutrition Acute Renal Failure Hypokalemia Plan: Cr stable. Monitor. No acute AMF MECHANIC indication right now. Making urine. On lasix drip. Na hovering around 122. No salt tabs as have CHF. Echo done 10/04/20 showed LVEF 25-30%. On lasix drip. On Pressors for low BP. Avoid correction more than 8 mmol/l in 24 hours Acidosis improving. Renal US -ve for hydronephrosis. Avoid nephrotoxic agents Obtain daily weights Monitor I/O's daily Critical Care time: 36 minutes Subjective Date of service: 10/22/20 Principal diagnosis: Ac hypoxemic resp failure; Pneumonia; BETSY; Ac. encephalopathy Interval history: Intubated on Vent. Making urine. On Lasix drip. Objective - Exam Narrative Exam: General appearance: sedated on ventilator, intubated EENT: PERRL, mucous membranes dry Neck: no JVD, no carotid bruit Respiratory: Present: Decreased Breath Sounds Cardiology: tachycardia Gastrointestinal: normoactive bowel sounds, no tenderness, no distended, no masses Integumentary: no rash, warm and dry Neurologic: other (intubate) Musculoskeletal: other (2-3+ pitting edema in BLE) - Vital Signs Vital signs: Vital Signs - 12hr 10/21/20 10/21/20 10/21/20 22:15 22:30 22:45 Temperature Pulse Rate 81 81 89 Pulse Rate [ From Monitor] Respiratory 30 H 30 H 30 H Rate Blood Pressure 117/68 126/70 124/64 O2 Sat by Pulse 98 98 97 Oximetry 10/21/20 10/21/20 10/21/20 23:00 23:15 23:31 Temperature Pulse Rate 83 77 99 H Pulse Rate [ From Monitor] Respiratory 30 H 30 H 28 H Rate Blood Pressure 124/73 124/73 125/76 O2 Sat by Pulse 97 99 96 Oximetry 10/21/20 10/21/20 10/22/20 23:33 23:45 00:00 Temperature 97.2 F L Pulse Rate 88 92 H 90 Pulse Rate [ 87 From Monitor] Respiratory 30 H 31 H 30 H Rate Blood Pressure 125/76 125/68 123/76 O2 Sat by Pulse 96 96 98 Oximetry 10/22/20 10/22/20 10/22/20 00:15 00:30 00:45 Temperature Pulse Rate 99 H 91 H 81 Pulse Rate [ From Monitor] Respiratory 24 30 H 30 H Rate Blood Pressure 115/68 123/76 123/76 O2 Sat by Pulse 98 98 98 Oximetry 10/22/20 10/22/20 10/22/20 01:00 01:15 01:30 Temperature Pulse Rate 89 86 86 Pulse Rate [ From Monitor] Respiratory 30 H 27 H 30 H Rate Blood Pressure 119/72 122/72 121/67 O2 Sat by Pulse 97 97 97 Oximetry 10/22/20 10/22/20 10/22/20 01:45 02:00 02:15 Temperature Pulse Rate 91 H 85 95 H Pulse Rate [ From Monitor] Respiratory 30 H 30 H 30 H Rate Blood Pressure 134/74 130/76 129/73 O2 Sat by Pulse 98 98 97 Oximetry 10/22/20 10/22/20 10/22/20 02:30 02:45 03:00 Temperature Pulse Rate 80 84 81 Pulse Rate [ From Monitor] Respiratory 30 H 30 H 30 H Rate Blood Pressure 128/68 128/68 123/73 O2 Sat by Pulse 97 97 97 Oximetry 10/22/20 10/22/20 10/22/20 03:11 03:15 03:22 Temperature 97.5 F L Pulse Rate 88 80 Pulse Rate [ From Monitor] Respiratory 30 H Rate Blood Pressure 127/72 127/72 O2 Sat by Pulse 97 97 Oximetry 10/22/20 10/22/20 10/22/20 03:31 03:45 04:00 Temperature Pulse Rate 87 91 H 84 Pulse Rate [ 93 H From Monitor] Respiratory 18 19 22 Rate Blood Pressure 127/72 127/72 121/67 O2 Sat by Pulse 98 94 94 Oximetry 10/22/20 10/22/20 10/22/20 04:15 04:30 04:45 Temperature Pulse Rate 85 94 H 87 Pulse Rate [ From Monitor] Respiratory 22 22 29 H Rate Blood Pressure 114/67 111/68 119/68 O2 Sat by Pulse 94 94 91 Oximetry 10/22/20 10/22/20 10/22/20 05:00 05:15 05:30 Temperature Pulse Rate 97 H 88 86 Pulse Rate [ From Monitor] Respiratory 30 H 27 H 30 H Rate Blood Pressure 113/67 116/69 109/65 O2 Sat by Pulse 94 94 94 Oximetry 10/22/20 10/22/20 10/22/20 05:45 06:00 06:15 Temperature Pulse Rate 96 H 90 90 Pulse Rate [ From Monitor] Respiratory 23 30 H 30 H Rate Blood Pressure 117/68 125/66 108/70 O2 Sat by Pulse 94 93 95 Oximetry 10/22/20 10/22/20 10/22/20 06:30 06:45 07:00 Temperature Pulse Rate 92 H 87 87 Pulse Rate [ From Monitor] Respiratory 30 H 30 H 30 H Rate Blood Pressure 118/67 105/64 116/64 O2 Sat by Pulse 95 94 95 Oximetry 10/22/20 10/22/20 10/22/20 07:15 07:30 07:45 Temperature Pulse Rate 87 90 77 Pulse Rate [ From Monitor] Respiratory 30 H 30 H 30 H Rate Blood Pressure 112/67 116/62 109/68 O2 Sat by Pulse 96 95 95 Oximetry 10/22/20 10/22/20 10/22/20 07:50 08:00 08:15 Temperature Pulse Rate 88 93 H 104 H Pulse Rate [ From Monitor] Respiratory 30 H 19 Rate Blood Pressure 102/65 102/65 112/60 O2 Sat by Pulse 97 96 98 Oximetry 10/22/20 10/22/20 10/22/20 08:30 08:45 09:00 Temperature Pulse Rate 106 H 89 93 H Pulse Rate [ From Monitor] Respiratory 23 30 H 13 Rate Blood Pressure 110/62 111/67 103/66 O2 Sat by Pulse 98 97 98 Oximetry 10/22/20 10/22/20 10/22/20 09:15 09:30 09:45 Temperature Pulse Rate 85 99 H 84 Pulse Rate [ From Monitor] Respiratory 30 H 22 18 Rate Blood Pressure 103/66 94/56 84/60 O2 Sat by Pulse 96 98 98 Oximetry - Lab 10/22/20 06:00 10/22/20 02:43 Most recent lab results ABG pH 7.431 (7.320-7.450) 10/22/20 04:00 ABG O2 Saturation 91.3 (0-100) 10/22/20 04:00 Calcium 7.8 mg/dL (8.4-10.2) L 10/22/20 02:43 Phosphorus 2.60 mg/dL (2.5-4.5) D 10/21/20 05:50 Magnesium 1.60 mg/dL (1.7-2.3) L 10/21/20 05:50 Urine Creatinine 144.2 mg/dL (0.1-20.0) H 10/14/20 Unknown Urine Sodium 10 mmol/L 10/14/20 Unknown Urine Total Protein 97 mg/dL (5-11.8) H 10/14/20 Unknown Medications & Allergies - Medications Allergies/Adverse Reactions: Allergies No Known Allergies Allergy (Unverified 10/03/20 12:27) Home Medications: Home Medications Medication Instructions Recorded Confirmed Last Taken Type Unobtainable 10/10/20 10/10/20 Unknown History Active Medications: Generic Name Dose Route Start Last Admin Trade Name Freq PRN Reason Stop Dose Admin Acetaminophen 650 mg 10/03/20 02:10 10/06/20 15:28 Acetaminophen 325 Mg Tab PO 650 mg Q4H PRN Administration Pain MILD(1-3)/Fever >100.5/ROMERO Al Hydrox/Mg Hydrox/Simethicone 30 ml 10/03/20 02:10 Alum-Mag Hydroxide-Simethicone [phone]/5ml Oral Liqd 30 Ml PO Q4H PRN Indigestion Lipase/Protease/Amylase 1 each 10/03/20 16:51 Lipase 10,500/Protease 25,000/Amylase 43,750 (Units) Dr Reis FEEDTUBE PRN PRN For Clogged Feeding Tube Dextrose 50 ml 10/16/20 12:42 10/21/20 17:39 Dextrose 50% In Water (25gm) 50 Ml Syringe IV 50 ml Q30MIN PRN Administration Hypoglycemia Protocol Fentanyl 50 mcg 10/22/20 10:00 Fentanyl 100 Mcg/2 Ml Inj IV Q4HR PRN Pain , Severe (7-10) Ferrous Sulfate 308 mg 10/16/20 10:00 10/22/20 09:39 Ferrous Sulfate 308 Mg (62mg Elemental Iron) / 7 Ml Elixir FEEDTUBE 308 mg DAILY JOSE Administration Folic Acid 1 mg 10/03/20 10:00 10/22/20 09:40 Folic Acid 1 Mg Tab PO 1 mg QDAY JOSE Administration Hydrocortisone Sodium Succinate 100 mg 10/19/20 18:00 10/22/20 02:41 Hydrocortisone Sod Succ 100 Mg/2 Ml Vial IV 100 mg Q8H JOSE Administration Levetiracetam 250 mg/ Dextrose 102.5 mls @ 400 mls/hr 10/10/20 22:00 10/22/20 09:39 IV 400 mls/hr Q12HR JOSE Administration Vasopressin 20 unit/ Sodium 101 mls @ 9.09 mls/hr 10/16/20 13:00 10/21/20 23:15 Chloride IV 0.03 units/min TITR JOSE 9.09 mls/hr Administration Protocol 0.03 UNITS/MIN Phenylephrine HCl 100 mg/ 100 mls @ 3 mls/hr 10/16/20 18:00 10/20/20 11:50 Sodium Chloride IV 0 mcg/min TITR JOSE 0 mls/hr Titration Protocol 50 MCG/MIN NORepinephrine/NS 8 MG-250 ML 8 mg in 250 mls @ 3.75 mls/hr 10/16/20 19:00 10/21/20 16:56 Norepinephrine/Ns 8 Mg-250 Ml (Double Conc) IV 0 mcg/min TITRATE JOSE 0 mls/hr Titration Protocol 2 MCG/MIN Dobutamine HCl/Dextrose 500 mg in 250 mls @ 6.908 mls/hr 10/16/20 19:00 10/21/20 11:32 Dobutrex Drip 500mg/D5w 250ml IV 5 mcg/kg/min DIRECT JOSE 13.815 mls/hr Administration Protocol 2.5 MCG/KG/MIN Epinephrine 8 mg/ Sodium 250 mls @ 0 mls/hr 10/16/20 23:45 10/17/20 11:33 Chloride IV 0 mls/hr TITR JOSE Infusion Cefepime HCl 2 gm in 100 mls @ 200 mls/hr 10/17/20 22:00 10/21/20 23:13 Cefepime/Ns 2 Gm/100 Ml IV 10/22/20 22:29 200 mls/hr Q24H JOSE Administration Protocol Furosemide 100 mg/ Sodium 100 mls @ 5 mls/hr 10/21/20 08:00 10/22/20 07:50 Chloride IV 5 mls/hr TITR JOSE Administration As Directed Magnesium Hydroxide 30 ml 10/03/20 02:10 Magnesium Hydroxide (Mom) Oral Liqd Udc PO Q4H PRN Constipation Metoclopramide HCl 5 mg 10/17/20 09:00 Metoclopramide 10 Mg/2 Ml Inj IV Q6H PRN Nausea And Vomiting Ondansetron HCl 4 mg 10/03/20 02:10 10/07/20 23:19 Ondansetron 4 Mg/2 Ml Inj IV 4 mg Q8H PRN Administration Nausea And Vomiting Pantoprazole Sodium 40 mg 10/04/20 15:00 10/22/20 09:39 Pantoprazole 40 Mg Inj IV 40 mg QDAY JOSE Administration Potassium Chloride 40 meq 10/22/20 10:00 Potassium Chloride 20 Meq Packet FEEDTUBE 10/22/20 14:01 Q4H JOSE Promethazine HCl 25 mg 10/03/20 02:10 Promethazine 25 Mg Rect Supp IA Q6H PRN N/V IF NPO AND NO IV ACCESS Senna 8.6 mg 10/03/20 02:10 Sennosides 8.6 Mg Tab PO Q12HR PRN Constipation Simple Syrup 15 ml 10/03/20 16:51 10/19/20 02:08 Simple Syrup 15 Ml FEEDTUBE 15 ml PRN PRN Administration Hypoglycemia Simple Syrup 30 ml 10/03/20 16:51 10/16/20 22:02 Simple Syrup 15 Ml FEEDTUBE 30 ml PRN PRN Administration Hypoglycemia Sodium Bicarbonate 325 mg 10/03/20 16:51 Sodium Bicarbonate 325 Mg Tab FEEDTUBE PRN PRN For Clogged Feeding Tube
[2020-10-22] MEDS: POTASSIUM CHLORIDE 20 MEQ PACKET FEEDTUBE SCH ×2 (10:11→15:01)
[2020-10-22 10:16] LABS: Platelet Count 21 K/mm3 (140-440)
[2020-10-22] MEDS ORDERED: SODIUM CHLORIDE 0.9% 500 ML 500 ML IV NR (12:08)
--- NOTE | 2020-10-22 12:49 | Progress Note ---
Assessment and Plan Acute hypoxemic respiratory failure Bilateral pneumonia Bilateral pleural effusions Bilateral pulmonary edema Acute kidney injury Acute encephalopathy Severe protein calorie malnutrition Oropharyngeal dysphagia Anemia that is microcytic Oropharyngeal dysphagia Thrombocytopenia Hyponatremia - no anticoagulation re: thrombocytopenia / anemia- supportive transfusions with platelets if Platelet count<20K. DIC work up negative. Possibly multifactorial Was transfused 1 unit of platelets. Electrolytes addressed as indicated - Continue amiodarone infusion -Stat Furosemide infusion and monitor hemodynamics, renal function, urine output and electrolyte profile - continue Dobutamine till off vasopressors - titrate vasopressor to keep MAP > 65 mmHg - VAP bundle addressed, aspiration precautions (HOB > 40 degrees) -Titrate supplemental oxygen to keep SpO2 88-90% - sedation target RASS 0 to -1- currently not on any sedation - SAT and SBT daily. He tolerated an hout of SBT yesterday but required Psupp of 12 - continue glycemic control for target BG 140-180 mg while critically ill; avoid hypoglycemia - bronchodilators with pulmonary hygiene per RT - Antibiotics per ID, de-escalate based on culture data and clinical response - avoid nephrotoxins, renally dose all medications - prn analgesia per pain score - Maintenance of sleep-wake cycle, avoid delirium - supportive transfusions for serum Hgb < 7.0g/dl -Enteric nutritional support - Stress ulcer prophylaxis - continue mobility , off loading, frequent turning per facility protocols for pressure ulcer prevention - Monitor hemodynamics closely - continue other care per attending / other consultants COVID SPECIFIC INTERVENTIONS - COVID-19 test negative CONDITION: CRITICAL PROGNOSIS: GUARDED CODE STATUS: FULL CODE The high probability of a clinically significant, sudden or life-threatening deterioration of the [respiratory, cardiovascular, & neurologic] system(s) required my full and direct attention, intervention and personal management. The aggregate critical care time was [33] minutes without overlap. Time includes spent on; [x] Data Review and interpretation [x] Patient assessment and monitoring of vital signs [x] Documentation [x] Medication orders and management Subjective Date of service: 10/22/20 Principal diagnosis: Ac hypoxemic resp failure; Pneumonia; BETSY; Ac. encephalopathy Interval history: Patient is seen today for: Acute hypoxemic respiratory failure; Pneumonia; Pleural effusions; BETSY; Acute encephalopathy; Severe protein calorie malnutrition Seen and examined at bedside; 24hour events reviewed; nursing and respiratory care staff consulted; no adverse overnight events reported to me; resting in bed; remains on MVS- low settings; blood pressure is better weaning off vasopressors while on stress dose steroids; dobutamine remains at fixed dose of 2.5 mcg/min; He still has hyponatremia, hypokalemia, hypochloremia with slightly improving renal function. Patient remains on Lasix infusion. Mental status changes remain the same, currently not on any sedation Objective Vital Signs - 12hr 10/22/20 10/22/20 10/22/20 01:00 01:15 01:30 Temperature Pulse Rate 89 86 86 Pulse Rate [ From Monitor] Respiratory 30 H 27 H 30 H Rate Blood Pressure 119/72 122/72 121/67 O2 Sat by Pulse 97 97 97 Oximetry 10/22/20 10/22/20 10/22/20 01:45 02:00 02:15 Temperature Pulse Rate 91 H 85 95 H Pulse Rate [ From Monitor] Respiratory 30 H 30 H 30 H Rate Blood Pressure 134/74 130/76 129/73 O2 Sat by Pulse 98 98 97 Oximetry 10/22/20 10/22/20 10/22/20 02:30 02:45 03:00 Temperature Pulse Rate 80 84 81 Pulse Rate [ From Monitor] Respiratory 30 H 30 H 30 H Rate Blood Pressure 128/68 128/68 123/73 O2 Sat by Pulse 97 97 97 Oximetry 10/22/20 10/22/20 10/22/20 03:11 03:15 03:22 Temperature 97.5 F L Pulse Rate 88 80 Pulse Rate [ From Monitor] Respiratory 30 H Rate Blood Pressure 127/72 127/72 O2 Sat by Pulse 97 97 Oximetry 10/22/20 10/22/20 10/22/20 03:31 03:45 04:00 Temperature Pulse Rate 87 91 H 84 Pulse Rate [ 93 H From Monitor] Respiratory 18 19 22 Rate Blood Pressure 127/72 127/72 121/67 O2 Sat by Pulse 98 94 94 Oximetry 10/22/20 10/22/20 10/22/20 04:15 04:30 04:45 Temperature Pulse Rate 85 94 H 87 Pulse Rate [ From Monitor] Respiratory 22 22 29 H Rate Blood Pressure 114/67 111/68 119/68 O2 Sat by Pulse 94 94 91 Oximetry 10/22/20 10/22/20 10/22/20 05:00 05:15 05:30 Temperature Pulse Rate 97 H 88 86 Pulse Rate [ From Monitor] Respiratory 30 H 27 H 30 H Rate Blood Pressure 113/67 116/69 109/65 O2 Sat by Pulse 94 94 94 Oximetry 10/22/20 10/22/20 10/22/20 05:45 06:00 06:15 Temperature Pulse Rate 96 H 90 90 Pulse Rate [ From Monitor] Respiratory 23 30 H 30 H Rate Blood Pressure 117/68 125/66 108/70 O2 Sat by Pulse 94 93 95 Oximetry 10/22/20 10/22/20 10/22/20 06:30 06:45 07:00 Temperature Pulse Rate 92 H 87 87 Pulse Rate [ From Monitor] Respiratory 30 H 30 H 30 H Rate Blood Pressure 118/67 105/64 116/64 O2 Sat by Pulse 95 94 95 Oximetry 10/22/20 10/22/20 10/22/20 07:15 07:30 07:45 Temperature Pulse Rate 87 90 77 Pulse Rate [ From Monitor] Respiratory 30 H 30 H 30 H Rate Blood Pressure 112/67 116/62 109/68 O2 Sat by Pulse 96 95 95 Oximetry 10/22/20 10/22/20 10/22/20 07:50 08:00 08:15 Temperature Pulse Rate 88 93 H 104 H Pulse Rate [ From Monitor] Respiratory 30 H 19 Rate Blood Pressure 102/65 102/65 112/60 O2 Sat by Pulse 97 96 98 Oximetry 10/22/20 10/22/20 10/22/20 08:30 08:45 09:00 Temperature Pulse Rate 106 H 89 93 H Pulse Rate [ From Monitor] Respiratory 23 30 H 13 Rate Blood Pressure 110/62 111/67 103/66 O2 Sat by Pulse 98 97 98 Oximetry 10/22/20 10/22/20 10/22/20 09:15 09:30 09:35 Temperature Pulse Rate 85 99 H 89 Pulse Rate [ From Monitor] Respiratory 30 H 22 23 Rate Blood Pressure 103/66 94/56 92/68 O2 Sat by Pulse 96 98 99 Oximetry 10/22/20 10/22/20 10/22/20 09:45 10:01 10:15 Temperature Pulse Rate 84 89 91 H Pulse Rate [ From Monitor] Respiratory 18 21 16 Rate Blood Pressure 84/60 84/63 94/56 O2 Sat by Pulse 98 97 98 Oximetry 10/22/20 12:00 Temperature Pulse Rate 83 Pulse Rate [ From Monitor] Respiratory 18 Rate Blood Pressure 124/62 O2 Sat by Pulse 99 Oximetry Constitutional: appears uncomfortable, other (elderly and chronically ill looking male with mildly increased respiratory effort at rest on MVS) Eyes: non-icteric ENT: oropharynx dry, other (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) Neck: supple, no lymphadenopathy, no JVD Effort: mildly labored Ascultation: Bilateral: diminished breath sounds, rhonchi Percussion: Bilateral: not dull Cardiovascular: irregular rhythm (irregularly irregular), other (S1,S2) Gastrointestinal: normoactive bowel sounds Integumentary: normal Extremities: no cyanosis, pulses normal, no ischemia or petechiae, edema (1+) Neurologic: pupils equal and round, unable to assess Psychiatric: other (unable to assess re: AMS) CBC and BMP: 10/24/20 05:27 10/24/20 05:27 ABG, PT/INR, D-dimer: ABG ABG pH 7.431 (7.320-7.450) 10/22/20 04:00 POC ABG pCO2 29.1 mmHg (32.0-48.0) L 10/22/20 04:00 POC ABG pO2 64.1 mmHg (83-108) L 10/22/20 04:00 POC ABG HCO3 18.9 10/22/20 04:00 ABG O2 Saturation 91.3 (0-100) 10/22/20 04:00 PT/INR, D-dimer PT 27.0 Sec. (12.2-14.9) H 10/21/20 Unknown INR 2.44 (0.87-1.13) H 10/21/20 Unknown D-Dimer 1992.93 ng/mlDDU (0-234) H 10/21/20 Unknown Abnormal lab findings: Abnormal Labs 10/02/20 10/02/20 10/02/20 23:17 23:17 23:17 WBC RBC 3.31 L Hgb 6.7 L Hct 21.8 L MCV 66 L MCH 20 L MCHC 31 L RDW 31.7 H Plt Count Meagher % (Auto) Meagher # (Auto) Seg Neutrophils % Seg Neuts % (Manual) 79.0 H Lymphocytes % (Manual) 11.0 L Monocytes % (Manual) 10.0 H Basophils % (Manual) Nucleated RBC % Seg Neutrophils # Seg Neutrophils # Man Lymphocytes # (Manual) 0.9 L Monocytes # (Manual) Basophils # (Manual) PT 20.8 H INR 1.74 H APTT 57.6 H Fibrinogen D-Dimer ABG pH POC ABG pCO2 POC ABG pO2 ABG Hemoglobin ABG Oxyhemoglobin ABG Sodium ABG Potassium ABG Chloride ABG Glucose Sodium Potassium Chloride Carbon Dioxide BUN Creatinine Glucose 42 L POC Glucose Lactic Acid Calcium Magnesium Iron Total Bilirubin Direct Bilirubin AST ALT Alkaline Phosphatase Ammonia CK-MB (CK-2) 7.5 H CK-MB (CK-2) Rel Index 8.5 H Total Protein Albumin 2.9 L Arterial Blood Glucose Arterial Blood Ionized Calcium Urine Creatinine Urine Total Protein Salicylates Acetaminophen Crossmatch 10/02/20 10/02/20 10/02/20 23:17 23:17 23:17 WBC RBC Hgb Hct MCV MCH MCHC RDW Plt Count Meagher % (Auto) Meagher # (Auto) Seg Neutrophils % Seg Neuts % (Manual) Lymphocytes % (Manual) Monocytes % (Manual) Basophils % (Manual) Nucleated RBC % Seg Neutrophils # Seg Neutrophils # Man Lymphocytes # (Manual) Monocytes # (Manual) Basophils # (Manual) PT INR APTT Fibrinogen D-Dimer ABG pH POC ABG pCO2 POC ABG pO2 ABG Hemoglobin ABG Oxyhemoglobin ABG Sodium ABG Potassium ABG Chloride ABG Glucose Sodium Potassium Chloride Carbon Dioxide BUN Creatinine Glucose POC Glucose Lactic Acid 2.20 H* Calcium Magnesium Iron Total Bilirubin Direct Bilirubin AST ALT Alkaline Phosphatase Ammonia 22.0 L CK-MB (CK-2) CK-MB (CK-2) Rel Index Total Protein Albumin Arterial Blood Glucose Arterial Blood Ionized Calcium Urine Creatinine Urine Total Protein Salicylates < 0.3 L Acetaminophen Crossmatch 10/02/20 10/03/20 10/03/20 23:17 05:57 05:57 WBC RBC 2.66 L Hgb 5.3 L* Hct 17.8 L* MCV 67 L MCH 20 L MCHC 30 L RDW 32.1 H Plt Count Meagher % (Auto) Meagher # (Auto) Seg Neutrophils % Seg Neuts % (Manual) Lymphocytes % (Manual) 2.0 L Monocytes % (Manual) Basophils % (Manual) Nucleated RBC % 1.0 H Seg Neutrophils # Seg Neutrophils # Man 8.6 H Lymphocytes # (Manual) 0.2 L Monocytes # (Manual) Basophils # (Manual) PT INR APTT Fibrinogen D-Dimer ABG pH POC ABG pCO2 POC ABG pO2 ABG Hemoglobin ABG Oxyhemoglobin ABG Sodium ABG Potassium ABG Chloride ABG Glucose Sodium Potassium Chloride Carbon Dioxide BUN Creatinine Glucose POC Glucose Lactic Acid Calcium Magnesium Iron Total Bilirubin Direct Bilirubin AST ALT Alkaline Phosphatase Ammonia CK-MB (CK-2) CK-MB (CK-2) Rel Index Total Protein Albumin Arterial Blood Glucose Arterial Blood Ionized Calcium Urine Creatinine Urine Total Protein Salicylates Acetaminophen 5.0 L Crossmatch See Detail 10/03/20 10/03/20 10/03/20 05:57 05:57 06:00 WBC RBC Hgb Hct MCV MCH MCHC RDW Plt Count Meagher % (Auto) Meagher # (Auto) Seg Neutrophils % Seg Neuts % (Manual) Lymphocytes % (Manual) Monocytes % (Manual) Basophils % (Manual) Nucleated RBC % Seg Neutrophils # Seg Neutrophils # Man Lymphocytes # (Manual) Monocytes # (Manual) Basophils # (Manual) PT INR APTT Fibrinogen D-Dimer ABG pH POC ABG pCO2 POC ABG pO2 ABG Hemoglobin ABG Oxyhemoglobin ABG Sodium ABG Potassium ABG Chloride ABG Glucose Sodium Potassium Chloride Carbon Dioxide BUN Creatinine Glucose 52 L POC Glucose 31 L Lactic Acid Calcium Magnesium Iron 42 L Total Bilirubin Direct Bilirubin AST ALT Alkaline Phosphatase Ammonia CK-MB (CK-2) CK-MB (CK-2) Rel Index Total Protein 5.8 L Albumin 3.1 L Arterial Blood Glucose Arterial Blood Ionized Calcium Urine Creatinine Urine Total Protein Salicylates Acetaminophen Crossmatch 10/03/20 10/03/20 10/03/20 07:34 09:43 10:57 WBC RBC Hgb Hct MCV MCH MCHC RDW Plt Count Meagher % (Auto) Meagher # (Auto) Seg Neutrophils % Seg Neuts % (Manual) Lymphocytes % (Manual) Monocytes % (Manual) Basophils % (Manual) Nucleated RBC % Seg Neutrophils # Seg Neutrophils # Man Lymphocytes # (Manual) Monocytes # (Manual) Basophils # (Manual) PT INR APTT Fibrinogen D-Dimer ABG pH POC ABG pCO2 POC ABG pO2 ABG Hemoglobin ABG Oxyhemoglobin ABG Sodium ABG Potassium ABG Chloride ABG Glucose Sodium Potassium Chloride Carbon Dioxide BUN Creatinine Glucose POC Glucose 59 L 41 L 31 L Lactic Acid Calcium Magnesium Iron Total Bilirubin Direct Bilirubin AST ALT Alkaline Phosphatase Ammonia CK-MB (CK-2) CK-MB (CK-2) Rel Index Total Protein Albumin Arterial Blood Glucose Arterial Blood Ionized Calcium Urine Creatinine Urine Total Protein Salicylates Acetaminophen Crossmatch 10/03/20 10/03/20 10/03/20 11:21 12:00 12:14 WBC RBC Hgb Hct MCV MCH MCHC RDW Plt Count Meagher % (Auto) Meagher # (Auto) Seg Neutrophils % Seg Neuts % (Manual) Lymphocytes % (Manual) Monocytes % (Manual) Basophils % (Manual) Nucleated RBC % Seg Neutrophils # Seg Neutrophils # Man Lymphocytes # (Manual) Monocytes # (Manual) Basophils # (Manual) PT INR APTT Fibrinogen D-Dimer ABG pH POC ABG pCO2 POC ABG pO2 ABG Hemoglobin ABG Oxyhemoglobin ABG Sodium ABG Potassium ABG Chloride ABG Glucose Sodium Potassium Chloride Carbon Dioxide BUN Creatinine Glucose POC Glucose 62 L 26 L 140 H Lactic Acid Calcium Magnesium Iron Total Bilirubin Direct Bilirubin AST ALT Alkaline Phosphatase Ammonia CK-MB (CK-2) CK-MB (CK-2) Rel Index Total Protein Albumin Arterial Blood Glucose Arterial Blood Ionized Calcium Urine Creatinine Urine Total Protein Salicylates Acetaminophen Crossmatch 10/03/20 10/03/20 10/03/20 13:33 14:19 14:59 WBC RBC Hgb Hct MCV MCH MCHC RDW Plt Count Meagher % (Auto) Meagher # (Auto) Seg Neutrophils % Seg Neuts % (Manual) Lymphocytes % (Manual) Monocytes % (Manual) Basophils % (Manual) Nucleated RBC % Seg Neutrophils # Seg Neutrophils # Man Lymphocytes # (Manual) Monocytes # (Manual) Basophils # (Manual) PT INR APTT Fibrinogen D-Dimer ABG pH POC ABG pCO2 POC ABG pO2 ABG Hemoglobin ABG Oxyhemoglobin ABG Sodium ABG Potassium ABG Chloride ABG Glucose Sodium Potassium Chloride Carbon Dioxide BUN Creatinine Glucose POC Glucose 24 L 59 L 40 L Lactic Acid Calcium Magnesium Iron Total Bilirubin Direct Bilirubin AST ALT Alkaline Phosphatase Ammonia CK-MB (CK-2) CK-MB (CK-2) Rel Index Total Protein Albumin Arterial Blood Glucose Arterial Blood Ionized Calcium Urine Creatinine Urine Total Protein Salicylates Acetaminophen Crossmatch 10/03/20 10/03/20 10/03/20 15:26 15:57 16:35 WBC RBC Hgb Hct MCV MCH MCHC RDW Plt Count Meagher % (Auto) Meagher # (Auto) Seg Neutrophils % Seg Neuts % (Manual) Lymphocytes % (Manual) Monocytes % (Manual) Basophils % (Manual) Nucleated RBC % Seg Neutrophils # Seg Neutrophils # Man Lymphocytes # (Manual) Monocytes # (Manual) Basophils # (Manual) PT INR APTT Fibrinogen D-Dimer ABG pH POC ABG pCO2 POC ABG pO2 ABG Hemoglobin ABG Oxyhemoglobin ABG Sodium ABG Potassium ABG Chloride ABG Glucose Sodium Potassium Chloride Carbon Dioxide BUN Creatinine Glucose POC Glucose 54 L 45 L 42 L Lactic Acid Calcium Magnesium Iron Total Bilirubin Direct Bilirubin AST ALT Alkaline Phosphatase Ammonia CK-MB (CK-2) CK-MB (CK-2) Rel Index Total Protein Albumin Arterial Blood Glucose Arterial Blood Ionized Calcium Urine Creatinine Urine Total Protein Salicylates Acetaminophen Crossmatch 10/03/20 10/03/20 10/03/20 17:16 18:37 19:56 WBC RBC Hgb Hct MCV MCH MCHC RDW Plt Count Meagher % (Auto) Meagher # (Auto) Seg Neutrophils % Seg Neuts % (Manual) Lymphocytes % (Manual) Monocytes % (Manual) Basophils % (Manual) Nucleated RBC % Seg Neutrophils # Seg Neutrophils # Man Lymphocytes # (Manual) Monocytes # (Manual) Basophils # (Manual) PT INR APTT Fibrinogen D-Dimer ABG pH POC ABG pCO2 POC ABG pO2 ABG Hemoglobin ABG Oxyhemoglobin ABG Sodium ABG Potassium ABG Chloride ABG Glucose Sodium Potassium Chloride Carbon Dioxide BUN Creatinine Glucose POC Glucose 41 L 46 L 57 L Lactic Acid Calcium Magnesium Iron Total Bilirubin Direct Bilirubin AST ALT Alkaline Phosphatase Ammonia CK-MB (CK-2) CK-MB (CK-2) Rel Index Total Protein Albumin Arterial Blood Glucose Arterial Blood Ionized Calcium Urine Creatinine Urine Total Protein Salicylates Acetaminophen Crossmatch 10/03/20 10/04/20 10/04/20 21:32 01:04 01:11 WBC RBC Hgb 9.6 L D Hct 28.3 L D MCV MCH MCHC RDW Plt Count Meagher % (Auto) Meagher # (Auto) Seg Neutrophils % Seg Neuts % (Manual) Lymphocytes % (Manual) Monocytes % (Manual) Basophils % (Manual) Nucleated RBC % Seg Neutrophils # Seg Neutrophils # Man Lymphocytes # (Manual) Monocytes # (Manual) Basophils # (Manual) PT INR APTT Fibrinogen D-Dimer ABG pH POC ABG pCO2 POC ABG pO2 ABG Hemoglobin ABG Oxyhemoglobin ABG Sodium ABG Potassium ABG Chloride ABG Glucose Sodium Potassium Chloride Carbon Dioxide BUN Creatinine Glucose POC Glucose 65 L 51 L Lactic Acid Calcium Magnesium Iron Total Bilirubin Direct Bilirubin AST ALT Alkaline Phosphatase Ammonia CK-MB (CK-2) CK-MB (CK-2) Rel Index Total Protein Albumin Arterial Blood Glucose Arterial Blood Ionized Calcium Urine Creatinine Urine Total Protein Salicylates Acetaminophen Crossmatch 10/04/20 10/04/20 10/04/20 05:59 05:59 15:10 WBC 13.4 H RBC Hgb 9.9 L 10.1 L Hct 32.0 L 31.8 L MCV 76 L MCH 24 L MCHC 31 L RDW 31.3 H Plt Count Meagher % (Auto) Meagher # (Auto) Seg Neutrophils % Seg Neuts % (Manual) 86.0 H Lymphocytes % (Manual) 6.0 L Monocytes % (Manual) 8.0 H Basophils % (Manual) Nucleated RBC % 2.0 H Seg Neutrophils # Seg Neutrophils # Man 11.5 H Lymphocytes # (Manual) 0.8 L Monocytes # (Manual) 1.1 H Basophils # (Manual) PT INR APTT Fibrinogen D-Dimer ABG pH POC ABG pCO2 POC ABG pO2 ABG Hemoglobin ABG Oxyhemoglobin ABG Sodium ABG Potassium ABG Chloride ABG Glucose Sodium 136 L Potassium 3.5 L Chloride Carbon Dioxide 19 L D BUN Creatinine Glucose POC Glucose Lactic Acid Calcium Magnesium Iron Total Bilirubin Direct Bilirubin AST ALT Alkaline Phosphatase Ammonia CK-MB (CK-2) CK-MB (CK-2) Rel Index Total Protein Albumin 2.6 L Arterial Blood Glucose Arterial Blood Ionized Calcium Urine Creatinine Urine Total Protein Salicylates Acetaminophen Crossmatch 10/04/20 10/04/20 10/05/20 16:28 22:33 04:43 WBC RBC Hgb 10.5 L Hct 32.5 L MCV MCH MCHC RDW Plt Count Meagher % (Auto) Meagher # (Auto) Seg Neutrophils % Seg Neuts % (Manual) Lymphocytes % (Manual) Monocytes % (Manual) Basophils % (Manual) Nucleated RBC % Seg Neutrophils # Seg Neutrophils # Man Lymphocytes # (Manual) Monocytes # (Manual) Basophils # (Manual) PT INR APTT Fibrinogen D-Dimer ABG pH POC ABG pCO2 POC ABG pO2 ABG Hemoglobin ABG Oxyhemoglobin ABG Sodium ABG Potassium ABG Chloride ABG Glucose Sodium Potassium Chloride Carbon Dioxide BUN Creatinine Glucose POC Glucose 66 L 113 H Lactic Acid Calcium Magnesium Iron Total Bilirubin Direct Bilirubin AST ALT Alkaline Phosphatase Ammonia CK-MB (CK-2) CK-MB (CK-2) Rel Index Total Protein Albumin Arterial Blood Glucose Arterial Blood Ionized Calcium Urine Creatinine Urine Total Protein Salicylates Acetaminophen Crossmatch 10/05/20 10/05/20 10/05/20 05:00 09:42 11:57 WBC RBC Hgb 9.8 L Hct 30.5 L MCV 74 L MCH 24 L MCHC RDW 31.6 H Plt Count Meagher % (Auto) Meagher # (Auto) Seg Neutrophils % Seg Neuts % (Manual) Lymphocytes % (Manual) Monocytes % (Manual) Basophils % (Manual) Nucleated RBC % Seg Neutrophils # Seg Neutrophils # Man Lymphocytes # (Manual) Monocytes # (Manual) Basophils # (Manual) PT INR APTT Fibrinogen D-Dimer ABG pH POC ABG pCO2 POC ABG pO2 ABG Hemoglobin ABG Oxyhemoglobin ABG Sodium ABG Potassium ABG Chloride ABG Glucose Sodium 132 L Potassium 3.5 L Chloride Carbon Dioxide 19 L BUN Creatinine 0.7 L Glucose POC Glucose 129 H Lactic Acid Calcium Magnesium Iron Total Bilirubin Direct Bilirubin AST ALT Alkaline Phosphatase Ammonia CK-MB (CK-2) CK-MB (CK-2) Rel Index Total Protein Albumin Arterial Blood Glucose Arterial Blood Ionized Calcium Urine Creatinine Urine Total Protein Salicylates Acetaminophen Crossmatch 10/05/20 10/05/20 10/06/20 16:47 21:51 05:07 WBC RBC Hgb 9.4 L Hct 30.1 L MCV 76 L MCH 24 L MCHC 31 L RDW 31.1 H Plt Count Meagher % (Auto) Meagher # (Auto) Seg Neutrophils % Seg Neuts % (Manual) Lymphocytes % (Manual) Monocytes % (Manual) Basophils % (Manual) Nucleated RBC % Seg Neutrophils # Seg Neutrophils # Man Lymphocytes # (Manual) Monocytes # (Manual) Basophils # (Manual) PT INR APTT Fibrinogen D-Dimer ABG pH POC ABG pCO2 POC ABG pO2 ABG Hemoglobin ABG Oxyhemoglobin ABG Sodium ABG Potassium ABG Chloride ABG Glucose Sodium Potassium Chloride Carbon Dioxide BUN Creatinine Glucose POC Glucose 132 H 115 H Lactic Acid Calcium Magnesium Iron Total Bilirubin Direct Bilirubin AST ALT Alkaline Phosphatase Ammonia CK-MB (CK-2) CK-MB (CK-2) Rel Index Total Protein Albumin Arterial Blood Glucose Arterial Blood Ionized Calcium Urine Creatinine Urine Total Protein Salicylates Acetaminophen Crossmatch 10/06/20 10/06/20 10/06/20 05:07 15:37 21:01 WBC RBC Hgb Hct MCV MCH MCHC RDW Plt Count Meagher % (Auto) Meagher # (Auto) Seg Neutrophils % Seg Neuts % (Manual) Lymphocytes % (Manual) Monocytes % (Manual) Basophils % (Manual) Nucleated RBC % Seg Neutrophils # Seg Neutrophils # Man Lymphocytes # (Manual) Monocytes # (Manual) Basophils # (Manual) PT INR APTT Fibrinogen D-Dimer ABG pH POC ABG pCO2 POC ABG pO2 ABG Hemoglobin ABG Oxyhemoglobin ABG Sodium ABG Potassium ABG Chloride ABG Glucose Sodium 133 L Potassium 3.5 L Chloride Carbon Dioxide 21 L BUN Creatinine 0.6 L Glucose 105 H POC Glucose 136 H 108 H Lactic Acid Calcium Magnesium Iron Total Bilirubin Direct Bilirubin AST ALT Alkaline Phosphatase Ammonia CK-MB (CK-2) CK-MB (CK-2) Rel Index Total Protein Albumin Arterial Blood Glucose Arterial Blood Ionized Calcium Urine Creatinine Urine Total Protein Salicylates Acetaminophen Crossmatch 10/07/20 10/07/20 10/07/20 04:52 04:52 06:07 WBC RBC Hgb 9.6 L Hct 29.4 L MCV 73 L MCH 24 L MCHC RDW 32.2 H Plt Count Meagher % (Auto) Meagher # (Auto) Seg Neutrophils % Seg Neuts % (Manual) Lymphocytes % (Manual) Monocytes % (Manual) Basophils % (Manual) Nucleated RBC % Seg Neutrophils # Seg Neutrophils # Man Lymphocytes # (Manual) Monocytes # (Manual) Basophils # (Manual) PT INR APTT Fibrinogen D-Dimer ABG pH POC ABG pCO2 POC ABG pO2 ABG Hemoglobin ABG Oxyhemoglobin ABG Sodium ABG Potassium ABG Chloride ABG Glucose Sodium 128 L Potassium Chloride Carbon Dioxide 20 L BUN Creatinine 0.7 L Glucose POC Glucose 110 H Lactic Acid Calcium Magnesium Iron Total Bilirubin Direct Bilirubin AST ALT Alkaline Phosphatase Ammonia CK-MB (CK-2) CK-MB (CK-2) Rel Index Total Protein Albumin Arterial Blood Glucose Arterial Blood Ionized Calcium Urine Creatinine Urine Total Protein Salicylates Acetaminophen Crossmatch 10/07/20 10/07/20 10/07/20 17:09 18:53 20:35 WBC RBC Hgb Hct MCV MCH MCHC RDW Plt Count Meagher % (Auto) Meagher # (Auto) Seg Neutrophils % Seg Neuts % (Manual) Lymphocytes % (Manual) Monocytes % (Manual) Basophils % (Manual) Nucleated RBC % Seg Neutrophils # Seg Neutrophils # Man Lymphocytes # (Manual) Monocytes # (Manual) Basophils # (Manual) PT INR APTT Fibrinogen D-Dimer ABG pH POC ABG pCO2 POC ABG pO2 ABG Hemoglobin ABG Oxyhemoglobin ABG Sodium ABG Potassium ABG Chloride ABG Glucose Sodium Potassium Chloride Carbon Dioxide BUN Creatinine Glucose POC Glucose 67 L 66 L 62 L Lactic Acid Calcium Magnesium Iron Total Bilirubin Direct Bilirubin AST ALT Alkaline Phosphatase Ammonia CK-MB (CK-2) CK-MB (CK-2) Rel Index Total Protein Albumin Arterial Blood Glucose Arterial Blood Ionized Calcium Urine Creatinine Urine Total Protein Salicylates Acetaminophen Crossmatch 10/07/20 10/08/20 10/08/20 21:55 05:00 05:00 WBC RBC Hgb 9.6 L Hct 29.4 L MCV 73 L MCH 24 L MCHC RDW 32.4 H Plt Count Meagher % (Auto) Meagher # (Auto) Seg Neutrophils % 80.6 H Seg Neuts % (Manual) 88.0 H Lymphocytes % (Manual) 9.0 L Monocytes % (Manual) Basophils % (Manual) Nucleated RBC % 5.0 H Seg Neutrophils # Seg Neutrophils # Man Lymphocytes # (Manual) 0.5 L Monocytes # (Manual) Basophils # (Manual) PT INR APTT Fibrinogen D-Dimer ABG pH POC ABG pCO2 POC ABG pO2 ABG Hemoglobin ABG Oxyhemoglobin ABG Sodium ABG Potassium ABG Chloride ABG Glucose Sodium 126 L Potassium Chloride 96.3 L Carbon Dioxide BUN Creatinine 0.7 L Glucose POC Glucose 132 H Lactic Acid Calcium Magnesium Iron Total Bilirubin Direct Bilirubin AST ALT Alkaline Phosphatase Ammonia CK-MB (CK-2) CK-MB (CK-2) Rel Index Total Protein Albumin Arterial Blood Glucose Arterial Blood Ionized Calcium Urine Creatinine Urine Total Protein Salicylates Acetaminophen Crossmatch 10/08/20 10/09/20 10/09/20 22:26 01:36 02:22 WBC RBC Hgb Hct MCV MCH MCHC RDW Plt Count Meagher % (Auto) Meagher # (Auto) Seg Neutrophils % Seg Neuts % (Manual) Lymphocytes % (Manual) Monocytes % (Manual) Basophils % (Manual) Nucleated RBC % Seg Neutrophils # Seg Neutrophils # Man Lymphocytes # (Manual) Monocytes # (Manual) Basophils # (Manual) PT INR APTT Fibrinogen D-Dimer ABG pH POC ABG pCO2 POC ABG pO2 ABG Hemoglobin ABG Oxyhemoglobin ABG Sodium ABG Potassium ABG Chloride ABG Glucose Sodium Potassium Chloride Carbon Dioxide BUN Creatinine Glucose POC Glucose 63 L 62 L 151 H Lactic Acid Calcium Magnesium Iron Total Bilirubin Direct Bilirubin AST ALT Alkaline Phosphatase Ammonia CK-MB (CK-2) CK-MB (CK-2) Rel Index Total Protein Albumin Arterial Blood Glucose Arterial Blood Ionized Calcium Urine Creatinine Urine Total Protein Salicylates Acetaminophen Crossmatch 10/09/20 10/09/20 10/09/20 05:07 05:42 06:32 WBC RBC Hgb 10.3 L Hct 33.8 L MCV 77 L MCH 24 L MCHC 31 L RDW 33.6 H Plt Count 137 L Meagher % (Auto) Meagher # (Auto) Seg Neutrophils % Seg Neuts % (Manual) 89.0 H Lymphocytes % (Manual) 5.0 L Monocytes % (Manual) Basophils % (Manual) Nucleated RBC % 4.0 H Seg Neutrophils # Seg Neutrophils # Man 9.4 H Lymphocytes # (Manual) 0.5 L Monocytes # (Manual) Basophils # (Manual) PT INR APTT Fibrinogen D-Dimer ABG pH POC ABG pCO2 POC ABG pO2 ABG Hemoglobin ABG Oxyhemoglobin ABG Sodium ABG Potassium ABG Chloride ABG Glucose Sodium 126 L Potassium Chloride 97.8 L Carbon Dioxide 20 L BUN Creatinine Glucose 58 L POC Glucose 48 L Lactic Acid Calcium Magnesium Iron Total Bilirubin Direct Bilirubin AST ALT Alkaline Phosphatase Ammonia CK-MB (CK-2) CK-MB (CK-2) Rel Index Total Protein Albumin Arterial Blood Glucose Arterial Blood Ionized Calcium Urine Creatinine Urine Total Protein Salicylates Acetaminophen Crossmatch 10/09/20 10/10/20 10/10/20 06:35 00:21 05:53 WBC RBC Hgb Hct MCV MCH MCHC RDW Plt Count Meagher % (Auto) Meagher # (Auto) Seg Neutrophils % Seg Neuts % (Manual) Lymphocytes % (Manual) Monocytes % (Manual) Basophils % (Manual) Nucleated RBC % Seg Neutrophils # Seg Neutrophils # Man Lymphocytes # (Manual) Monocytes # (Manual) Basophils # (Manual) PT INR APTT Fibrinogen D-Dimer ABG pH POC ABG pCO2 POC ABG pO2 ABG Hemoglobin ABG Oxyhemoglobin ABG Sodium ABG Potassium ABG Chloride ABG Glucose Sodium Potassium Chloride Carbon Dioxide BUN Creatinine Glucose POC Glucose 106 H 153 H 34 L Lactic Acid Calcium Magnesium Iron Total Bilirubin Direct Bilirubin AST ALT Alkaline Phosphatase Ammonia CK-MB (CK-2) CK-MB (CK-2) Rel Index Total Protein Albumin Arterial Blood Glucose Arterial Blood Ionized Calcium Urine Creatinine Urine Total Protein Salicylates Acetaminophen Crossmatch 10/10/20 10/10/20 10/10/20 10:58 10:58 12:39 WBC RBC Hgb 10.3 L Hct 33.9 L MCV 78 L MCH 24 L MCHC 30 L RDW 33.2 H Plt Count 135 L Meagher % (Auto) Meagher # (Auto) Seg Neutrophils % Seg Neuts % (Manual) 74.0 H Lymphocytes % (Manual) 12.0 L Monocytes % (Manual) 9.0 H Basophils % (Manual) 2.0 H Nucleated RBC % Seg Neutrophils # Seg Neutrophils # Man Lymphocytes # (Manual) 1.0 L Monocytes # (Manual) Basophils # (Manual) 0.2 H PT INR APTT Fibrinogen D-Dimer ABG pH POC ABG pCO2 POC ABG pO2 ABG Hemoglobin ABG Oxyhemoglobin ABG Sodium ABG Potassium ABG Chloride ABG Glucose Sodium 127 L Potassium Chloride Carbon Dioxide 20 L BUN 23 H Creatinine Glucose POC Glucose 108 H Lactic Acid Calcium Magnesium Iron Total Bilirubin Direct Bilirubin AST ALT Alkaline Phosphatase Ammonia CK-MB (CK-2) CK-MB (CK-2) Rel Index Total Protein Albumin Arterial Blood Glucose Arterial Blood Ionized Calcium Urine Creatinine Urine Total Protein Salicylates Acetaminophen Crossmatch 10/10/20 10/11/20 10/11/20 16:51 04:56 05:51 WBC RBC Hgb 9.5 L Hct 31.3 L MCV 77 L MCH 23 L MCHC 30 L RDW 33.7 H Plt Count Meagher % (Auto) Meagher # (Auto) Seg Neutrophils % Seg Neuts % (Manual) 95.0 H Lymphocytes % (Manual) 2.0 L Monocytes % (Manual) Basophils % (Manual) Nucleated RBC % 3.0 H Seg Neutrophils # Seg Neutrophils # Man 8.0 H Lymphocytes # (Manual) 0.2 L Monocytes # (Manual) Basophils # (Manual) PT INR APTT Fibrinogen D-Dimer ABG pH POC ABG pCO2 POC ABG pO2 ABG Hemoglobin ABG Oxyhemoglobin ABG Sodium ABG Potassium ABG Chloride ABG Glucose Sodium Potassium Chloride Carbon Dioxide BUN Creatinine Glucose POC Glucose 142 H 124 H Lactic Acid Calcium Magnesium Iron Total Bilirubin Direct Bilirubin AST ALT Alkaline Phosphatase Ammonia CK-MB (CK-2) CK-MB (CK-2) Rel Index Total Protein Albumin Arterial Blood Glucose Arterial Blood Ionized Calcium Urine Creatinine Urine Total Protein Salicylates Acetaminophen Crossmatch 10/11/20 10/11/20 10/12/20 05:51 11:56 04:53 WBC RBC Hgb 9.5 L Hct 30.0 L MCV 75 L MCH 24 L MCHC RDW 32.8 H Plt Count 136 L Meagher % (Auto) Meagher # (Auto) Seg Neutrophils % Seg Neuts % (Manual) 89.0 H Lymphocytes % (Manual) 5.0 L Monocytes % (Manual) Basophils % (Manual) Nucleated RBC % Seg Neutrophils # Seg Neutrophils # Man Lymphocytes # (Manual) 0.4 L Monocytes # (Manual) Basophils # (Manual) PT INR APTT Fibrinogen D-Dimer ABG pH POC ABG pCO2 POC ABG pO2 ABG Hemoglobin ABG Oxyhemoglobin ABG Sodium ABG Potassium ABG Chloride ABG Glucose Sodium 130 L Potassium Chloride Carbon Dioxide 18 L BUN 23 H Creatinine Glucose POC Glucose 126 H Lactic Acid Calcium Magnesium Iron Total Bilirubin Direct Bilirubin AST ALT Alkaline Phosphatase Ammonia CK-MB (CK-2) CK-MB (CK-2) Rel Index Total Protein Albumin Arterial Blood Glucose Arterial Blood Ionized Calcium Urine Creatinine Urine Total Protein Salicylates Acetaminophen Crossmatch 10/12/20 10/12/20 10/12/20 04:53 11:42 23:49 WBC RBC Hgb Hct MCV MCH MCHC RDW Plt Count Meagher % (Auto) Meagher # (Auto) Seg Neutrophils % Seg Neuts % (Manual) Lymphocytes % (Manual) Monocytes % (Manual) Basophils % (Manual) Nucleated RBC % Seg Neutrophils # Seg Neutrophils # Man Lymphocytes # (Manual) Monocytes # (Manual) Basophils # (Manual) PT INR APTT Fibrinogen D-Dimer ABG pH POC ABG pCO2 POC ABG pO2 ABG Hemoglobin ABG Oxyhemoglobin ABG Sodium ABG Potassium ABG Chloride ABG Glucose Sodium 130 L Potassium Chloride Carbon Dioxide 18 L BUN 25 H Creatinine Glucose 74 L POC Glucose 59 L 51 L Lactic Acid Calcium Magnesium Iron Total Bilirubin Direct Bilirubin AST ALT Alkaline Phosphatase Ammonia CK-MB (CK-2) CK-MB (CK-2) Rel Index Total Protein Albumin Arterial Blood Glucose Arterial Blood Ionized Calcium Urine Creatinine Urine Total Protein Salicylates Acetaminophen Crossmatch 09/04/3010/13/20 10/13/20 03:17 05:24 05:24 WBC RBC Hgb 9.4 L Hct 29.4 L MCV 75 L MCH 24 L MCHC RDW 32.9 H Plt Count 95 L Meagher % (Auto) Meagher # (Auto) Seg Neutrophils % Seg Neuts % (Manual) 90.0 H Lymphocytes % (Manual) Monocytes % (Manual) Basophils % (Manual) Nucleated RBC % 2.0 H Seg Neutrophils # Seg Neutrophils # Man 9.5 H Lymphocytes # (Manual) 0.0 L Monocytes # (Manual) Basophils # (Manual) PT INR APTT Fibrinogen D-Dimer ABG pH POC ABG pCO2 POC ABG pO2 ABG Hemoglobin ABG Oxyhemoglobin ABG Sodium ABG Potassium ABG Chloride ABG Glucose Sodium 132 L Potassium Chloride Carbon Dioxide 17 L BUN 26 H Creatinine 1.6 H Glucose POC Glucose 67 L Lactic Acid Calcium Magnesium Iron Total Bilirubin Direct Bilirubin AST ALT Alkaline Phosphatase Ammonia CK-MB (CK-2) CK-MB (CK-2) Rel Index Total Protein Albumin Arterial Blood Glucose Arterial Blood Ionized Calcium Urine Creatinine Urine Total Protein Salicylates Acetaminophen Crossmatch 10/13/20 10/14/20 10/14/20 11:36 05:04 05:04 WBC 17.4 H RBC Hgb 9.3 L Hct 29.3 L MCV 76 L MCH 24 L MCHC RDW 33.8 H Plt Count 83 L Meagher % (Auto) Meagher # (Auto) Seg Neutrophils % Seg Neuts % (Manual) 89.0 H Lymphocytes % (Manual) 4.0 L Monocytes % (Manual) Basophils % (Manual) Nucleated RBC % 1.0 H Seg Neutrophils # Seg Neutrophils # Man 15.5 H Lymphocytes # (Manual) 0.7 L Monocytes # (Manual) Basophils # (Manual) PT INR APTT Fibrinogen D-Dimer ABG pH POC ABG pCO2 POC ABG pO2 ABG Hemoglobin ABG Oxyhemoglobin ABG Sodium ABG Potassium ABG Chloride ABG Glucose Sodium 132 L Potassium 5.3 H Chloride 108.7 H Carbon Dioxide 15 L BUN 25 H Creatinine 1.5 H Glucose POC Glucose 58 L Lactic Acid Calcium Magnesium Iron Total Bilirubin Direct Bilirubin AST ALT Alkaline Phosphatase Ammonia CK-MB (CK-2) CK-MB (CK-2) Rel Index Total Protein Albumin Arterial Blood Glucose Arterial Blood Ionized Calcium Urine Creatinine Urine Total Protein Salicylates Acetaminophen Crossmatch 10/14/20 10/14/20 10/14/20 05:41 08:19 15:34 WBC RBC Hgb Hct MCV MCH MCHC RDW Plt Count Meagher % (Auto) Meagher # (Auto) Seg Neutrophils % Seg Neuts % (Manual) Lymphocytes % (Manual) Monocytes % (Manual) Basophils % (Manual) Nucleated RBC % Seg Neutrophils # Seg Neutrophils # Man Lymphocytes # (Manual) Monocytes # (Manual) Basophils # (Manual) PT INR APTT Fibrinogen D-Dimer ABG pH POC ABG pCO2 POC ABG pO2 ABG Hemoglobin ABG Oxyhemoglobin ABG Sodium ABG Potassium ABG Chloride ABG Glucose Sodium 134 L Potassium 5.2 H Chloride 111.1 H Carbon Dioxide 16 L BUN 25 H Creatinine 1.5 H Glucose POC Glucose 58 L 120 H Lactic Acid Calcium Magnesium Iron Total Bilirubin Direct Bilirubin AST ALT Alkaline Phosphatase Ammonia CK-MB (CK-2) CK-MB (CK-2) Rel Index Total Protein Albumin Arterial Blood Glucose Arterial Blood Ionized Calcium Urine Creatinine Urine Total Protein Salicylates Acetaminophen Crossmatch 10/14/20 10/15/20 10/15/20 Unknown 05:50 05:50 WBC 14.1 H RBC Hgb 9.4 L Hct 29.9 L MCV 76 L MCH 24 L MCHC 31 L RDW 34.2 H Plt Count 86 L Meagher % (Auto) 8.3 H Meagher # (Auto) 1.3 H Seg Neutrophils % 86.5 H Seg Neuts % (Manual) Lymphocytes % (Manual) 9.0 L Monocytes % (Manual) Basophils % (Manual) Nucleated RBC % 6.0 H Seg Neutrophils # 13.2 H Seg Neutrophils # Man 9.7 H Lymphocytes # (Manual) Monocytes # (Manual) Basophils # (Manual) PT INR APTT Fibrinogen D-Dimer ABG pH POC ABG pCO2 POC ABG pO2 ABG Hemoglobin ABG Oxyhemoglobin ABG Sodium ABG Potassium ABG Chloride ABG Glucose Sodium 134 L Potassium Chloride 109.9 H Carbon Dioxide 18 L BUN 26 H Creatinine 1.5 H Glucose 125 H POC Glucose Lactic Acid Calcium Magnesium Iron Total Bilirubin Direct Bilirubin AST ALT Alkaline Phosphatase Ammonia CK-MB (CK-2) CK-MB (CK-2) Rel Index Total Protein Albumin Arterial Blood Glucose Arterial Blood Ionized Calcium Urine Creatinine 144.2 H Urine Total Protein 97 H Salicylates Acetaminophen Crossmatch 10/15/20 10/15/20 10/15/20 05:55 07:36 07:59 WBC RBC Hgb Hct MCV MCH MCHC RDW Plt Count Meagher % (Auto) Meagher # (Auto) Seg Neutrophils % Seg Neuts % (Manual) Lymphocytes % (Manual) Monocytes % (Manual) Basophils % (Manual) Nucleated RBC % Seg Neutrophils # Seg Neutrophils # Man Lymphocytes # (Manual) Monocytes # (Manual) Basophils # (Manual) PT INR APTT Fibrinogen D-Dimer ABG pH 7.052 L POC ABG pCO2 65.0 H POC ABG pO2 214.1 H ABG Hemoglobin 10.6 L ABG Oxyhemoglobin 98.3 H ABG Sodium 130.6 L ABG Potassium ABG Chloride 110.0 H ABG Glucose 124 H Sodium Potassium Chloride Carbon Dioxide BUN Creatinine Glucose POC Glucose 113 H 114 H Lactic Acid Calcium Magnesium Iron Total Bilirubin Direct Bilirubin AST ALT Alkaline Phosphatase Ammonia CK-MB (CK-2) CK-MB (CK-2) Rel Index Total Protein Albumin Arterial Blood Glucose 124 H Arterial Blood Ionized Calcium Urine Creatinine Urine Total Protein Salicylates Acetaminophen Crossmatch 10/15/20 10/15/20 10/15/20 10:50 11:27 13:56 WBC RBC Hgb Hct MCV MCH MCHC RDW Plt Count Meagher % (Auto) Meagher # (Auto) Seg Neutrophils % Seg Neuts % (Manual) Lymphocytes % (Manual) Monocytes % (Manual) Basophils % (Manual) Nucleated RBC % Seg Neutrophils # Seg Neutrophils # Man Lymphocytes # (Manual) Monocytes # (Manual) Basophils # (Manual) PT INR APTT Fibrinogen D-Dimer ABG pH 7.200 L POC ABG pCO2 POC ABG pO2 123.1 H ABG Hemoglobin ABG Oxyhemoglobin ABG Sodium 131.3 L ABG Potassium 4.6 H ABG Chloride 112.0 H ABG Glucose 42 L Sodium Potassium Chloride Carbon Dioxide BUN Creatinine Glucose POC Glucose 50 L 476 H Lactic Acid Calcium Magnesium Iron Total Bilirubin Direct Bilirubin AST ALT Alkaline Phosphatase Ammonia CK-MB (CK-2) CK-MB (CK-2) Rel Index Total Protein Albumin Arterial Blood Glucose 42 L Arterial Blood Ionized Calcium Urine Creatinine Urine Total Protein Salicylates Acetaminophen Crossmatch 10/15/20 10/15/20 10/16/20 16:46 17:01 00:45 WBC RBC Hgb Hct MCV MCH MCHC RDW Plt Count Meagher % (Auto) Meagher # (Auto) Seg Neutrophils % Seg Neuts % (Manual) Lymphocytes % (Manual) Monocytes % (Manual) Basophils % (Manual) Nucleated RBC % Seg Neutrophils # Seg Neutrophils # Man Lymphocytes # (Manual) Monocytes # (Manual) Basophils # (Manual) PT INR APTT Fibrinogen D-Dimer ABG pH 7.250 L POC ABG pCO2 POC ABG pO2 49.8 L ABG Hemoglobin 9.3 L ABG Oxyhemoglobin 83.0 L ABG Sodium 130.2 L ABG Potassium ABG Chloride 111.0 H ABG Glucose Sodium 135 L Potassium Chloride Carbon Dioxide BUN Creatinine Glucose POC Glucose 67 L Lactic Acid Calcium Magnesium Iron Total Bilirubin Direct Bilirubin AST ALT Alkaline Phosphatase Ammonia CK-MB (CK-2) CK-MB (CK-2) Rel Index Total Protein Albumin Arterial Blood Glucose Arterial Blood Ionized Calcium Urine Creatinine Urine Total Protein Salicylates Acetaminophen Crossmatch 10/16/20 10/16/20 10/16/20 05:36 05:53 05:53 WBC 16.6 H RBC 3.52 L Hgb 8.3 L Hct 26.6 L MCV 75 L MCH 23 L MCHC 31 L RDW 33.7 H Plt Count 63 L Meagher % (Auto) Meagher # (Auto) Seg Neutrophils % Seg Neuts % (Manual) 93.0 H Lymphocytes % (Manual) Monocytes % (Manual) Basophils % (Manual) Nucleated RBC % 3.0 H Seg Neutrophils # Seg Neutrophils # Man 15.4 H Lymphocytes # (Manual) 0.0 L Monocytes # (Manual) Basophils # (Manual) PT INR APTT Fibrinogen D-Dimer ABG pH POC ABG pCO2 POC ABG pO2 ABG Hemoglobin ABG Oxyhemoglobin ABG Sodium ABG Potassium ABG Chloride ABG Glucose Sodium 136 L Potassium Chloride 111.9 H Carbon Dioxide 17 L BUN 29 H Creatinine 2.0 H Glucose 126 H POC Glucose 44 L Lactic Acid Calcium 8.1 L Magnesium Iron Total Bilirubin Direct Bilirubin AST ALT Alkaline Phosphatase Ammonia CK-MB (CK-2) CK-MB (CK-2) Rel Index Total Protein Albumin Arterial Blood Glucose Arterial Blood Ionized Calcium Urine Creatinine Urine Total Protein Salicylates Acetaminophen Crossmatch 10/16/20 10/16/20 10/16/20 05:53 07:26 08:07 WBC RBC Hgb Hct MCV MCH MCHC RDW Plt Count Meagher % (Auto) Meagher # (Auto) Seg Neutrophils % Seg Neuts % (Manual) Lymphocytes % (Manual) Monocytes % (Manual) Basophils % (Manual) Nucleated RBC % Seg Neutrophils # Seg Neutrophils # Man Lymphocytes # (Manual) Monocytes # (Manual) Basophils # (Manual) PT 24.5 H INR 2.17 H APTT Fibrinogen D-Dimer ABG pH POC ABG pCO2 POC ABG pO2 ABG Hemoglobin ABG Oxyhemoglobin ABG Sodium ABG Potassium ABG Chloride ABG Glucose Sodium Potassium Chloride Carbon Dioxide BUN Creatinine Glucose POC Glucose 58 L 51 L Lactic Acid Calcium Magnesium Iron Total Bilirubin Direct Bilirubin AST ALT Alkaline Phosphatase Ammonia CK-MB (CK-2) CK-MB (CK-2) Rel Index Total Protein Albumin Arterial Blood Glucose Arterial Blood Ionized Calcium Urine Creatinine Urine Total Protein Salicylates Acetaminophen Crossmatch 10/16/20 10/16/20 10/16/20 08:52 11:14 11:33 WBC RBC Hgb Hct MCV MCH MCHC RDW Plt Count Meagher % (Auto) Meagher # (Auto) Seg Neutrophils % Seg Neuts % (Manual) Lymphocytes % (Manual) Monocytes % (Manual) Basophils % (Manual) Nucleated RBC % Seg Neutrophils # Seg Neutrophils # Man Lymphocytes # (Manual) Monocytes # (Manual) Basophils # (Manual) PT INR APTT Fibrinogen D-Dimer ABG pH 7.044 L POC ABG pCO2 58.1 H POC ABG pO2 57.7 L ABG Hemoglobin 9.5 L ABG Oxyhemoglobin 81.5 L ABG Sodium 131.7 L ABG Potassium ABG Chloride 112.0 H ABG Glucose 59 L Sodium Potassium Chloride Carbon Dioxide BUN Creatinine Glucose POC Glucose 58 L Lactic Acid Calcium Magnesium Iron Total Bilirubin Direct Bilirubin AST 136 H ALT 72 H Alkaline Phosphatase 240 H Ammonia CK-MB (CK-2) CK-MB (CK-2) Rel Index Total Protein 5.1 L Albumin 2.1 L Arterial Blood Glucose 59 L Arterial Blood Ionized Calcium Urine Creatinine Urine Total Protein Salicylates Acetaminophen Crossmatch 10/16/20 10/16/20 10/16/20 12:32 13:11 13:40 WBC RBC Hgb Hct MCV MCH MCHC RDW Plt Count Meagher % (Auto) Meagher # (Auto) Seg Neutrophils % Seg Neuts % (Manual) Lymphocytes % (Manual) Monocytes % (Manual) Basophils % (Manual) Nucleated RBC % Seg Neutrophils # Seg Neutrophils # Man Lymphocytes # (Manual) Monocytes # (Manual) Basophils # (Manual) PT INR APTT Fibrinogen D-Dimer ABG pH POC ABG pCO2 POC ABG pO2 ABG Hemoglobin ABG Oxyhemoglobin ABG Sodium ABG Potassium ABG Chloride ABG Glucose Sodium Potassium Chloride Carbon Dioxide BUN Creatinine Glucose POC Glucose 27 L 54 L 69 L Lactic Acid Calcium Magnesium Iron Total Bilirubin Direct Bilirubin AST ALT Alkaline Phosphatase Ammonia CK-MB (CK-2) CK-MB (CK-2) Rel Index Total Protein Albumin Arterial Blood Glucose Arterial Blood Ionized Calcium Urine Creatinine Urine Total Protein Salicylates Acetaminophen Crossmatch 10/16/20 10/16/20 10/16/20 15:13 17:15 17:34 WBC RBC Hgb Hct MCV MCH MCHC RDW Plt Count Meagher % (Auto) Meagher # (Auto) Seg Neutrophils % Seg Neuts % (Manual) Lymphocytes % (Manual) Monocytes % (Manual) Basophils % (Manual) Nucleated RBC % Seg Neutrophils # Seg Neutrophils # Man Lymphocytes # (Manual) Monocytes # (Manual) Basophils # (Manual) PT INR APTT Fibrinogen D-Dimer ABG pH POC ABG pCO2 POC ABG pO2 ABG Hemoglobin ABG Oxyhemoglobin ABG Sodium ABG Potassium ABG Chloride ABG Glucose Sodium Potassium Chloride Carbon Dioxide BUN Creatinine Glucose POC Glucose 46 L 54 L 119 H Lactic Acid Calcium Magnesium Iron Total Bilirubin Direct Bilirubin AST ALT Alkaline Phosphatase Ammonia CK-MB (CK-2) CK-MB (CK-2) Rel Index Total Protein Albumin Arterial Blood Glucose Arterial Blood Ionized Calcium Urine Creatinine Urine Total Protein Salicylates Acetaminophen Crossmatch 10/16/20 10/16/20 10/16/20 18:51 19:37 21:00 WBC RBC Hgb Hct MCV MCH MCHC RDW Plt Count Meagher % (Auto) Meagher # (Auto) Seg Neutrophils % Seg Neuts % (Manual) Lymphocytes % (Manual) Monocytes % (Manual) Basophils % (Manual) Nucleated RBC % Seg Neutrophils # Seg Neutrophils # Man Lymphocytes # (Manual) Monocytes # (Manual) Basophils # (Manual) PT INR APTT Fibrinogen D-Dimer ABG pH 7.122 L POC ABG pCO2 49.8 H POC ABG pO2 62.1 L ABG Hemoglobin 9.1 L ABG Oxyhemoglobin 89.6 L ABG Sodium 130.1 L ABG Potassium 3.0 L ABG Chloride 111.0 H ABG Glucose 106 H Sodium Potassium Chloride Carbon Dioxide BUN Creatinine Glucose POC Glucose 64 L 114 H Lactic Acid Calcium Magnesium Iron Total Bilirubin Direct Bilirubin AST ALT Alkaline Phosphatase Ammonia CK-MB (CK-2) CK-MB (CK-2) Rel Index Total Protein Albumin Arterial Blood Glucose 106 H Arterial Blood Ionized Calcium Urine Creatinine Urine Total Protein Salicylates Acetaminophen Crossmatch 10/16/20 10/16/20 10/17/20 22:01 22:58 00:58 WBC RBC Hgb Hct MCV MCH MCHC RDW Plt Count Meagher % (Auto) Meagher # (Auto) Seg Neutrophils % Seg Neuts % (Manual) Lymphocytes % (Manual) Monocytes % (Manual) Basophils % (Manual) Nucleated RBC % Seg Neutrophils # Seg Neutrophils # Man Lymphocytes # (Manual) Monocytes # (Manual) Basophils # (Manual) PT INR APTT Fibrinogen D-Dimer ABG pH POC ABG pCO2 POC ABG pO2 ABG Hemoglobin ABG Oxyhemoglobin ABG Sodium ABG Potassium ABG Chloride ABG Glucose Sodium 133 L Potassium 3.5 L Chloride 107.7 H Carbon Dioxide 15 L BUN 29 H Creatinine 2.6 H Glucose POC Glucose 63 L 292 H Lactic Acid Calcium 7.9 L Magnesium Iron Total Bilirubin Direct Bilirubin AST ALT Alkaline Phosphatase Ammonia CK-MB (CK-2) CK-MB (CK-2) Rel Index Total Protein Albumin Arterial Blood Glucose Arterial Blood Ionized Calcium Urine Creatinine Urine Total Protein Salicylates Acetaminophen Crossmatch 10/17/20 10/17/20 10/17/20 02:04 03:08 03:55 WBC RBC Hgb Hct MCV MCH MCHC RDW Plt Count Meagher % (Auto) Meagher # (Auto) Seg Neutrophils % Seg Neuts % (Manual) Lymphocytes % (Manual) Monocytes % (Manual) Basophils % (Manual) Nucleated RBC % Seg Neutrophils # Seg Neutrophils # Man Lymphocytes # (Manual) Monocytes # (Manual) Basophils # (Manual) PT INR APTT Fibrinogen D-Dimer ABG pH POC ABG pCO2 POC ABG pO2 ABG Hemoglobin ABG Oxyhemoglobin ABG Sodium ABG Potassium ABG Chloride ABG Glucose Sodium Potassium Chloride Carbon Dioxide BUN Creatinine Glucose POC Glucose 200 H 173 H 161 H Lactic Acid Calcium Magnesium Iron Total Bilirubin Direct Bilirubin AST ALT Alkaline Phosphatase Ammonia CK-MB (CK-2) CK-MB (CK-2) Rel Index Total Protein Albumin Arterial Blood Glucose Arterial Blood Ionized Calcium Urine Creatinine Urine Total Protein Salicylates Acetaminophen Crossmatch 10/17/20 10/17/20 10/17/20 04:00 04:49 04:49 WBC 17.7 H RBC 3.21 L Hgb 7.5 L Hct 25.4 L MCV 79 L MCH 24 L MCHC 30 L RDW 34.0 H Plt Count 40 L Meagher % (Auto) Meagher # (Auto) Seg Neutrophils % Seg Neuts % (Manual) Lymphocytes % (Manual) 3.0 L Monocytes % (Manual) Basophils % (Manual) Nucleated RBC % 3.0 H Seg Neutrophils # Seg Neutrophils # Man 10.6 H Lymphocytes # (Manual) 0.5 L Monocytes # (Manual) 1.1 H Basophils # (Manual) PT INR APTT Fibrinogen D-Dimer ABG pH 7.116 L POC ABG pCO2 POC ABG pO2 61.1 L ABG Hemoglobin 8.4 L ABG Oxyhemoglobin 90.2 L ABG Sodium 125.0 L ABG Potassium 3.1 L ABG Chloride ABG Glucose 155 H Sodium 133 L Potassium 3.3 L Chloride Carbon Dioxide 15 L BUN 29 H Creatinine 2.7 H Glucose 138 H POC Glucose Lactic Acid Calcium 7.8 L Magnesium Iron Total Bilirubin Direct Bilirubin AST ALT Alkaline Phosphatase Ammonia CK-MB (CK-2) CK-MB (CK-2) Rel Index Total Protein Albumin Arterial Blood Glucose 155 H Arterial Blood Ionized Calcium Urine Creatinine Urine Total Protein Salicylates Acetaminophen Crossmatch 10/17/20 10/17/20 10/17/20 04:58 06:01 07:50 WBC RBC Hgb Hct MCV MCH MCHC RDW Plt Count Meagher % (Auto) Meagher # (Auto) Seg Neutrophils % Seg Neuts % (Manual) Lymphocytes % (Manual) Monocytes % (Manual) Basophils % (Manual) Nucleated RBC % Seg Neutrophils # Seg Neutrophils # Man Lymphocytes # (Manual) Monocytes # (Manual) Basophils # (Manual) PT INR APTT Fibrinogen D-Dimer ABG pH POC ABG pCO2 POC ABG pO2 ABG Hemoglobin ABG Oxyhemoglobin ABG Sodium ABG Potassium ABG Chloride ABG Glucose Sodium Potassium Chloride Carbon Dioxide BUN Creatinine Glucose POC Glucose 137 H 119 H 106 H Lactic Acid Calcium Magnesium Iron Total Bilirubin Direct Bilirubin AST ALT Alkaline Phosphatase Ammonia CK-MB (CK-2) CK-MB (CK-2) Rel Index Total Protein Albumin Arterial Blood Glucose Arterial Blood Ionized Calcium Urine Creatinine Urine Total Protein Salicylates Acetaminophen Crossmatch 10/17/20 10/17/20 10/17/20 11:50 15:11 18:11 WBC RBC Hgb Hct MCV MCH MCHC RDW Plt Count Meagher % (Auto) Meagher # (Auto) Seg Neutrophils % Seg Neuts % (Manual) Lymphocytes % (Manual) Monocytes % (Manual) Basophils % (Manual) Nucleated RBC % Seg Neutrophils # Seg Neutrophils # Man Lymphocytes # (Manual) Monocytes # (Manual) Basophils # (Manual) PT INR APTT Fibrinogen D-Dimer ABG pH POC ABG pCO2 POC ABG pO2 ABG Hemoglobin ABG Oxyhemoglobin ABG Sodium ABG Potassium ABG Chloride ABG Glucose Sodium Potassium Chloride Carbon Dioxide BUN Creatinine Glucose POC Glucose 111 H 114 H 137 H Lactic Acid Calcium Magnesium Iron Total Bilirubin Direct Bilirubin AST ALT Alkaline Phosphatase Ammonia CK-MB (CK-2) CK-MB (CK-2) Rel Index Total Protein Albumin Arterial Blood Glucose Arterial Blood Ionized Calcium Urine Creatinine Urine Total Protein Salicylates Acetaminophen Crossmatch 10/17/20 10/17/20 10/18/20 19:51 23:32 04:00 WBC RBC Hgb Hct MCV MCH MCHC RDW Plt Count Meagher % (Auto) Meagher # (Auto) Seg Neutrophils % Seg Neuts % (Manual) Lymphocytes % (Manual) Monocytes % (Manual) Basophils % (Manual) Nucleated RBC % Seg Neutrophils # Seg Neutrophils # Man Lymphocytes # (Manual) Monocytes # (Manual) Basophils # (Manual) PT INR APTT Fibrinogen D-Dimer ABG pH 7.276 L POC ABG pCO2 POC ABG pO2 77.7 L ABG Hemoglobin 7.2 L ABG Oxyhemoglobin ABG Sodium 122.6 L ABG Potassium ABG Chloride ABG Glucose 113 H Sodium Potassium Chloride Carbon Dioxide BUN Creatinine Glucose POC Glucose 130 H 114 H Lactic Acid Calcium Magnesium Iron Total Bilirubin Direct Bilirubin AST ALT Alkaline Phosphatase Ammonia CK-MB (CK-2) CK-MB (CK-2) Rel Index Total Protein Albumin Arterial Blood Glucose 113 H Arterial Blood Ionized Calcium Urine Creatinine Urine Total Protein Salicylates Acetaminophen Crossmatch 10/18/20 10/18/20 10/18/20 04:06 04:06 04:13 WBC RBC Hgb Hct MCV MCH MCHC RDW Plt Count Meagher % (Auto) Meagher # (Auto) Seg Neutrophils % Seg Neuts % (Manual) Lymphocytes % (Manual) Monocytes % (Manual) Basophils % (Manual) Nucleated RBC % Seg Neutrophils # Seg Neutrophils # Man Lymphocytes # (Manual) Monocytes # (Manual) Basophils # (Manual) PT 23.5 H INR 2.05 H APTT Fibrinogen D-Dimer ABG pH POC ABG pCO2 POC ABG pO2 ABG Hemoglobin ABG Oxyhemoglobin ABG Sodium ABG Potassium ABG Chloride ABG Glucose Sodium 123 L D Potassium Chloride 97.9 L Carbon Dioxide 16 L BUN 31 H Creatinine 3.1 H Glucose 113 H POC Glucose 108 H Lactic Acid Calcium 7.4 L Magnesium Iron Total Bilirubin Direct Bilirubin AST ALT Alkaline Phosphatase Ammonia CK-MB (CK-2) CK-MB (CK-2) Rel Index Total Protein Albumin Arterial Blood Glucose Arterial Blood Ionized Calcium Urine Creatinine Urine Total Protein Salicylates Acetaminophen Crossmatch 10/18/20 10/18/20 10/18/20 10:03 14:12 19:08 WBC RBC Hgb Hct MCV MCH MCHC RDW Plt Count Meagher % (Auto) Meagher # (Auto) Seg Neutrophils % Seg Neuts % (Manual) Lymphocytes % (Manual) Monocytes % (Manual) Basophils % (Manual) Nucleated RBC % Seg Neutrophils # Seg Neutrophils # Man Lymphocytes # (Manual) Monocytes # (Manual) Basophils # (Manual) PT INR APTT Fibrinogen D-Dimer ABG pH POC ABG pCO2 POC ABG pO2 ABG Hemoglobin ABG Oxyhemoglobin ABG Sodium ABG Potassium ABG Chloride ABG Glucose Sodium Potassium Chloride Carbon Dioxide BUN Creatinine Glucose POC Glucose 139 H 112 H Lactic Acid Calcium Magnesium Iron Total Bilirubin Direct Bilirubin AST ALT Alkaline Phosphatase Ammonia CK-MB (CK-2) CK-MB (CK-2) Rel Index Total Protein Albumin Arterial Blood Glucose Arterial Blood Ionized Calcium Urine Creatinine Urine Total Protein Salicylates Acetaminophen Crossmatch See Detail 10/18/20 10/19/20 10/19/20 Unknown 02:02 04:00 WBC 19.8 H RBC 2.95 L Hgb 6.9 L Hct 22.2 L MCV 75 L MCH 24 L MCHC 31 L RDW 33.6 H Plt Count 28 L Meagher % (Auto) Meagher # (Auto) Seg Neutrophils % Seg Neuts % (Manual) Lymphocytes % (Manual) Monocytes % (Manual) Basophils % (Manual) Nucleated RBC % Seg Neutrophils # Seg Neutrophils # Man Lymphocytes # (Manual) Monocytes # (Manual) Basophils # (Manual) PT INR APTT Fibrinogen D-Dimer ABG pH 7.234 L POC ABG pCO2 POC ABG pO2 53.9 L ABG Hemoglobin 8.9 L ABG Oxyhemoglobin 86.6 L ABG Sodium 118.1 L ABG Potassium ABG Chloride 94.0 L ABG Glucose 61 L Sodium Potassium Chloride Carbon Dioxide BUN Creatinine Glucose POC Glucose 64 L Lactic Acid Calcium Magnesium Iron Total Bilirubin Direct Bilirubin AST ALT Alkaline Phosphatase Ammonia CK-MB (CK-2) CK-MB (CK-2) Rel Index Total Protein Albumin Arterial Blood Glucose 61 L Arterial Blood Ionized Calcium 4.5 L Urine Creatinine Urine Total Protein Salicylates Acetaminophen Crossmatch 10/19/20 10/19/20 10/19/20 04:51 04:51 05:43 WBC 18.2 H RBC 3.26 L Hgb 7.9 L Hct 24.6 L MCV 76 L MCH 24 L MCHC RDW 30.7 H Plt Count 41 L Meagher % (Auto) Meagher # (Auto) Seg Neutrophils % Seg Neuts % (Manual) Lymphocytes % (Manual) Monocytes % (Manual) Basophils % (Manual) Nucleated RBC % Seg Neutrophils # Seg Neutrophils # Man Lymphocytes # (Manual) Monocytes # (Manual) Basophils # (Manual) PT INR APTT Fibrinogen D-Dimer ABG pH POC ABG pCO2 POC ABG pO2 ABG Hemoglobin ABG Oxyhemoglobin ABG Sodium ABG Potassium ABG Chloride ABG Glucose Sodium 122 L Potassium Chloride 94.6 L Carbon Dioxide 17 L BUN 33 H Creatinine 3.5 H Glucose 63 L POC Glucose 54 L Lactic Acid Calcium 7.3 L Magnesium Iron Total Bilirubin 1.50 H Direct Bilirubin 0.9 H AST ALT Alkaline Phosphatase 154 H Ammonia CK-MB (CK-2) CK-MB (CK-2) Rel Index Total Protein 4.2 L Albumin 1.9 L Arterial Blood Glucose Arterial Blood Ionized Calcium Urine Creatinine Urine Total Protein Salicylates Acetaminophen Crossmatch 10/19/20 10/19/20 10/19/20 11:23 11:45 14:24 WBC RBC Hgb Hct MCV MCH MCHC RDW Plt Count Meagher % (Auto) Meagher # (Auto) Seg Neutrophils % Seg Neuts % (Manual) Lymphocytes % (Manual) Monocytes % (Manual) Basophils % (Manual) Nucleated RBC % Seg Neutrophils # Seg Neutrophils # Man Lymphocytes # (Manual) Monocytes # (Manual) Basophils # (Manual) PT INR APTT Fibrinogen D-Dimer ABG pH POC ABG pCO2 POC ABG pO2 ABG Hemoglobin ABG Oxyhemoglobin ABG Sodium ABG Potassium ABG Chloride ABG Glucose Sodium Potassium Chloride Carbon Dioxide BUN Creatinine Glucose POC Glucose 47 L 117 H 47 L Lactic Acid Calcium Magnesium Iron Total Bilirubin Direct Bilirubin AST ALT Alkaline Phosphatase Ammonia CK-MB (CK-2) CK-MB (CK-2) Rel Index Total Protein Albumin Arterial Blood Glucose Arterial Blood Ionized Calcium Urine Creatinine Urine Total Protein Salicylates Acetaminophen Crossmatch 10/19/20 10/19/20 10/19/20 16:31 20:04 20:19 WBC RBC Hgb Hct MCV MCH MCHC RDW Plt Count Meagher % (Auto) Meagher # (Auto) Seg Neutrophils % Seg Neuts % (Manual) Lymphocytes % (Manual) Monocytes % (Manual) Basophils % (Manual) Nucleated RBC % Seg Neutrophils # Seg Neutrophils # Man Lymphocytes # (Manual) Monocytes # (Manual) Basophils # (Manual) PT INR APTT Fibrinogen D-Dimer ABG pH POC ABG pCO2 POC ABG pO2 ABG Hemoglobin ABG Oxyhemoglobin ABG Sodium ABG Potassium ABG Chloride ABG Glucose Sodium Potassium Chloride Carbon Dioxide BUN Creatinine Glucose 59 L POC Glucose 58 L 49 L Lactic Acid Calcium Magnesium Iron Total Bilirubin Direct Bilirubin AST ALT Alkaline Phosphatase Ammonia CK-MB (CK-2) CK-MB (CK-2) Rel Index Total Protein Albumin Arterial Blood Glucose Arterial Blood Ionized Calcium Urine Creatinine Urine Total Protein Salicylates Acetaminophen Crossmatch 10/20/20 10/20/20 10/20/20 00:17 03:59 08:43 WBC 13.1 H RBC 3.42 L Hgb 8.3 L Hct 25.3 L MCV 74 L MCH 24 L MCHC RDW 31.4 H Plt Count 35 L Meagher % (Auto) Meagher # (Auto) Seg Neutrophils % Seg Neuts % (Manual) Lymphocytes % (Manual) Monocytes % (Manual) Basophils % (Manual) Nucleated RBC % Seg Neutrophils # Seg Neutrophils # Man Lymphocytes # (Manual) Monocytes # (Manual) Basophils # (Manual) PT INR APTT Fibrinogen D-Dimer ABG pH POC ABG pCO2 POC ABG pO2 ABG Hemoglobin ABG Oxyhemoglobin ABG Sodium ABG Potassium ABG Chloride ABG Glucose Sodium Potassium Chloride Carbon Dioxide BUN Creatinine Glucose POC Glucose 29 L 47 L Lactic Acid Calcium Magnesium Iron Total Bilirubin Direct Bilirubin AST ALT Alkaline Phosphatase Ammonia CK-MB (CK-2) CK-MB (CK-2) Rel Index Total Protein Albumin Arterial Blood Glucose Arterial Blood Ionized Calcium Urine Creatinine Urine Total Protein Salicylates Acetaminophen Crossmatch 10/20/20 10/20/20 10/20/20 08:43 08:43 09:56 WBC RBC Hgb Hct MCV MCH MCHC RDW Plt Count Meagher % (Auto) Meagher # (Auto) Seg Neutrophils % Seg Neuts % (Manual) Lymphocytes % (Manual) Monocytes % (Manual) Basophils % (Manual) Nucleated RBC % Seg Neutrophils # Seg Neutrophils # Man Lymphocytes # (Manual) Monocytes # (Manual) Basophils # (Manual) PT 30.1 H INR 2.82 H APTT Fibrinogen D-Dimer ABG pH POC ABG pCO2 POC ABG pO2 ABG Hemoglobin ABG Oxyhemoglobin ABG Sodium ABG Potassium ABG Chloride ABG Glucose Sodium 119 L* Potassium Chloride 90.7 L Carbon Dioxide 20 L BUN 35 H Creatinine 3.3 H Glucose 57 L POC Glucose 61 L Lactic Acid Calcium 7.7 L Magnesium 1.30 L Iron Total Bilirubin 1.60 H Direct Bilirubin AST ALT Alkaline Phosphatase 152 H Ammonia CK-MB (CK-2) CK-MB (CK-2) Rel Index Total Protein 4.5 L Albumin 1.6 L Arterial Blood Glucose Arterial Blood Ionized Calcium Urine Creatinine Urine Total Protein Salicylates Acetaminophen Crossmatch 10/20/20 10/20/20 10/20/20 15:35 17:30 20:17 WBC RBC Hgb Hct MCV MCH MCHC RDW Plt Count Meagher % (Auto) Meagher # (Auto) Seg Neutrophils % Seg Neuts % (Manual) Lymphocytes % (Manual) Monocytes % (Manual) Basophils % (Manual) Nucleated RBC % Seg Neutrophils # Seg Neutrophils # Man Lymphocytes # (Manual) Monocytes # (Manual) Basophils # (Manual) PT INR APTT Fibrinogen D-Dimer ABG pH POC ABG pCO2 POC ABG pO2 ABG Hemoglobin ABG Oxyhemoglobin ABG Sodium ABG Potassium ABG Chloride ABG Glucose Sodium 121 L 120 L Potassium Chloride Carbon Dioxide BUN Creatinine Glucose POC Glucose 61 L Lactic Acid Calcium Magnesium Iron Total Bilirubin Direct Bilirubin AST ALT Alkaline Phosphatase Ammonia CK-MB (CK-2) CK-MB (CK-2) Rel Index Total Protein Albumin Arterial Blood Glucose Arterial Blood Ionized Calcium Urine Creatinine Urine Total Protein Salicylates Acetaminophen Crossmatch 10/20/20 10/20/2021 23:00 23:37 01:00 WBC RBC Hgb Hct MCV MCH MCHC RDW Plt Count Meagher % (Auto) Meagher # (Auto) Seg Neutrophils % Seg Neuts % (Manual) Lymphocytes % (Manual) Monocytes % (Manual) Basophils % (Manual) Nucleated RBC % Seg Neutrophils # Seg Neutrophils # Man Lymphocytes # (Manual) Monocytes # (Manual) Basophils # (Manual) PT INR APTT Fibrinogen D-Dimer ABG pH POC ABG pCO2 POC ABG pO2 ABG Hemoglobin ABG Oxyhemoglobin ABG Sodium ABG Potassium ABG Chloride ABG Glucose Sodium 121 L Potassium Chloride Carbon Dioxide BUN Creatinine Glucose POC Glucose 33 L 36 L Lactic Acid Calcium Magnesium Iron Total Bilirubin Direct Bilirubin AST ALT Alkaline Phosphatase Ammonia CK-MB (CK-2) CK-MB (CK-2) Rel Index Total Protein Albumin Arterial Blood Glucose Arterial Blood Ionized Calcium Urine Creatinine Urine Total Protein Salicylates Acetaminophen Crossmatch 10/21/20 10/21/20 10/21/20 02:31 04:00 05:22 WBC RBC Hgb Hct MCV MCH MCHC RDW Plt Count Meagher % (Auto) Meagher # (Auto) Seg Neutrophils % Seg Neuts % (Manual) Lymphocytes % (Manual) Monocytes % (Manual) Basophils % (Manual) Nucleated RBC % Seg Neutrophils # Seg Neutrophils # Man Lymphocytes # (Manual) Monocytes # (Manual) Basophils # (Manual) PT INR APTT Fibrinogen D-Dimer ABG pH POC ABG pCO2 POC ABG pO2 66.6 L ABG Hemoglobin 8.7 L ABG Oxyhemoglobin 92.1 L ABG Sodium 117.9 L ABG Potassium 3.2 L ABG Chloride 93.0 L ABG Glucose Sodium Potassium Chloride Carbon Dioxide BUN Creatinine Glucose POC Glucose 51 L 64 L Lactic Acid Calcium Magnesium Iron Total Bilirubin Direct Bilirubin AST ALT Alkaline Phosphatase Ammonia CK-MB (CK-2) CK-MB (CK-2) Rel Index Total Protein Albumin Arterial Blood Glucose Arterial Blood Ionized Calcium 4.4 L Urine Creatinine Urine Total Protein Salicylates Acetaminophen Crossmatch 10/21/20 10/21/20 10/21/20 05:50 05:50 10:32 WBC 11.1 H RBC 3.27 L Hgb 7.9 L Hct 23.9 L MCV 73 L MCH 24 L MCHC RDW 31.8 H Plt Count 26 L Meagher % (Auto) Meagher # (Auto) Seg Neutrophils % Seg Neuts % (Manual) Lymphocytes % (Manual) Monocytes % (Manual) Basophils % (Manual) Nucleated RBC % Seg Neutrophils # Seg Neutrophils # Man Lymphocytes # (Manual) Monocytes # (Manual) Basophils # (Manual) PT INR APTT Fibrinogen D-Dimer ABG pH POC ABG pCO2 POC ABG pO2 ABG Hemoglobin ABG Oxyhemoglobin ABG Sodium ABG Potassium ABG Chloride ABG Glucose Sodium 122 L Potassium 3.4 L Chloride 91.1 L Carbon Dioxide BUN 38 H Creatinine 3.2 H Glucose 56 L POC Glucose 68 L Lactic Acid Calcium 7.8 L Magnesium 1.60 L Iron Total Bilirubin Direct Bilirubin AST ALT Alkaline Phosphatase Ammonia CK-MB (CK-2) CK-MB (CK-2) Rel Index Total Protein Albumin Arterial Blood Glucose Arterial Blood Ionized Calcium Urine Creatinine Urine Total Protein Salicylates Acetaminophen Crossmatch 10/21/20 10/21/20 10/21/20 14:05 17:15 18:41 WBC RBC Hgb Hct MCV MCH MCHC RDW Plt Count Meagher % (Auto) Meagher # (Auto) Seg Neutrophils % Seg Neuts % (Manual) Lymphocytes % (Manual) Monocytes % (Manual) Basophils % (Manual) Nucleated RBC % Seg Neutrophils # Seg Neutrophils # Man Lymphocytes # (Manual) Monocytes # (Manual) Basophils # (Manual) PT INR APTT Fibrinogen D-Dimer ABG pH POC ABG pCO2 POC ABG pO2 ABG Hemoglobin ABG Oxyhemoglobin ABG Sodium ABG Potassium ABG Chloride ABG Glucose Sodium Potassium Chloride Carbon Dioxide BUN Creatinine Glucose POC Glucose 61 L 53 L 110 H Lactic Acid Calcium Magnesium Iron Total Bilirubin Direct Bilirubin AST ALT Alkaline Phosphatase Ammonia CK-MB (CK-2) CK-MB (CK-2) Rel Index Total Protein Albumin Arterial Blood Glucose Arterial Blood Ionized Calcium Urine Creatinine Urine Total Protein Salicylates Acetaminophen Crossmatch 10/21/20 10/21/20 10/21/20 21:08 22:20 Unknown WBC RBC Hgb Hct MCV MCH MCHC RDW Plt Count Meagher % (Auto) Meagher # (Auto) Seg Neutrophils % Seg Neuts % (Manual) Lymphocytes % (Manual) Monocytes % (Manual) Basophils % (Manual) Nucleated RBC % Seg Neutrophils # Seg Neutrophils # Man Lymphocytes # (Manual) Monocytes # (Manual) Basophils # (Manual) PT INR APTT Fibrinogen D-Dimer ABG pH POC ABG pCO2 POC ABG pO2 ABG Hemoglobin ABG Oxyhemoglobin ABG Sodium ABG Potassium ABG Chloride ABG Glucose Sodium 123 L 125 L Potassium 3.2 L Chloride 94.1 L Carbon Dioxide BUN 40 H Creatinine 3.3 H Glucose 64 L POC Glucose 117 H Lactic Acid Calcium 7.6 L Magnesium Iron Total Bilirubin Direct Bilirubin AST ALT Alkaline Phosphatase Ammonia CK-MB (CK-2) CK-MB (CK-2) Rel Index Total Protein Albumin Arterial Blood Glucose Arterial Blood Ionized Calcium Urine Creatinine Urine Total Protein Salicylates Acetaminophen Crossmatch 10/21/20 10/21/20 10/22/20 Unknown Unknown 02:43 WBC RBC 3.40 L Hgb 8.4 L Hct 24.8 L MCV 73 L MCH 25 L MCHC RDW 31.5 H Plt Count 21 L Meagher % (Auto) Meagher # (Auto) Seg Neutrophils % Seg Neuts % (Manual) 83.0 H Lymphocytes % (Manual) 10.0 L Monocytes % (Manual) Basophils % (Manual) Nucleated RBC % 2.0 H Seg Neutrophils # Seg Neutrophils # Man 9.0 H Lymphocytes # (Manual) 1.1 L Monocytes # (Manual) Basophils # (Manual) PT 27.0 H INR 2.44 H APTT 61.4 H* Fibrinogen 482 H D-Dimer 1992.93 H ABG pH POC ABG pCO2 POC ABG pO2 ABG Hemoglobin ABG Oxyhemoglobin ABG Sodium ABG Potassium ABG Chloride ABG Glucose Sodium 122 L Potassium 3.1 L Chloride 92.9 L Carbon Dioxide BUN 44 H Creatinine 3.2 H Glucose POC Glucose Lactic Acid Calcium 7.8 L Magnesium Iron Total Bilirubin Direct Bilirubin AST ALT Alkaline Phosphatase Ammonia CK-MB (CK-2) CK-MB (CK-2) Rel Index Total Protein Albumin Arterial Blood Glucose Arterial Blood Ionized Calcium Urine Creatinine Urine Total Protein Salicylates Acetaminophen Crossmatch 10/22/20 10/22/20 04:00 06:00 WBC RBC 3.29 L Hgb 8.0 L Hct 24.3 L MCV 74 L MCH 24 L MCHC RDW 32.2 H Plt Count 21 L Meagher % (Auto) Meagher # (Auto) Seg Neutrophils % Seg Neuts % (Manual) Lymphocytes % (Manual) Monocytes % (Manual) Basophils % (Manual) Nucleated RBC % Seg Neutrophils # Seg Neutrophils # Man Lymphocytes # (Manual) Monocytes # (Manual) Basophils # (Manual) PT INR APTT Fibrinogen D-Dimer ABG pH POC ABG pCO2 29.1 L POC ABG pO2 64.1 L ABG Hemoglobin 8.2 L ABG Oxyhemoglobin 90.6 L ABG Sodium 118.8 L ABG Potassium ABG Chloride 96.0 L ABG Glucose 117 H Sodium Potassium Chloride Carbon Dioxide BUN Creatinine Glucose POC Glucose Lactic Acid Calcium Magnesium Iron Total Bilirubin Direct Bilirubin AST ALT Alkaline Phosphatase Ammonia CK-MB (CK-2) CK-MB (CK-2) Rel Index Total Protein Albumin Arterial Blood Glucose 117 H Arterial Blood Ionized Calcium Urine Creatinine Urine Total Protein Salicylates Acetaminophen Crossmatch Chest x-ray: image reviewed Allied health notes reviewed: RT
--- NOTE | 2020-10-22 14:21 | Progress Note ---
<EVERETT THOMASON - Last Filed: 10/22/20 14:15> Assessment and Plan Assessment and plan: This is 74-year-old male with GERD admitted with arthrosclerotic calcification, anemia and hypoglycemia. Neuro: Acute metabolic encephalopathy, significant narrowing in bilateral posterior cerebral arteries, left-sided hemiparesis with aphasia, atherosclerotic cerebrovascular disease -Avoid delirium -Patient is not sedated -Intact cough/gag -CTA head/CTA neck completed-> see results -MRI brain completed-> see results, findings suggestive of ventriculomegaly -Thiamine and folate daily -Keppra -Seizure precautions -Neurology consulted, appreciate recommendations -EEG completed which cannot rule out acute seizure with postictal state Cardio: SB-SR, hypotension, afib, HFrEF (10-15%) -Levophed, phenylepi, dobutamine, vasopressor-> wean as tolerated-> currently on dobutamine and vasopressin -MAP goal greater than 65 -Blood pressure monitoring per protocol -PICC 10/16 -Cardiology consulted, appreciate recommendations -no anticoagulation per cards for now -S/p amiodarone -Echo completed-> see results, EF 25-30% Respiratory: Acute hypoxic respiratory failure; mixed resp and metabolic acidosis -Patient was intubated on 10/15 -VAP bundle -Current vent settings: Assist control tidal volume 500, rate 30, PEEP 8, 40% FiO2 -Intubated with 7.5 OETT 24 at the lips -[facility] following -VAP bundle -10/21 reviewed CXR and ABG reviewed -Daily CXR and ABG -SBT/SAT when appropriate GI:? GIB, oropharyngeal dysphagia, severe protein-calorie malnutrition -Nutrition consult for tube feedings -GI consulted, appreciate recommendations -GI will hold off EGD/PEG given acute clinical worsening with respiratory failure -Past 24 hours net +45 -PPI with Protonix -BR with Senokot-> on hold due to FMS being in place -NGT to LIS : Hyponatremia,metabolic acidosis, acute kidney injury secondary to acute tubular necrosis, hypomagnesemia -Nephrology consulted, appreciate recommendations -Strict intake and output -Monitor BMP -munoz for I&O -Hypertonic saline per nephrology -Serial sodium checks -Lasix drip per [facility] -Replete potassium -Add on magnesium pending Heme: Iron deficient anemia, leukocytosis, supratherapeutic INR, superfical venous thrombus, thrombocytopenia -Likely secondary to malnutrition -S/p 4 units of PRBC and 2 unit plt -Patient given platelets again today -Iron/multivitamin supplements -GI consulted, appreciate recommendations -Monitor H/H -Hold off EGD/colonoscopy given acute clinical worsening with respiratory failure per GI -Trend CBC -Bilateral upper and lower extremity Doppler ultrasound shows occlusive superficial venous thrombus of left basilic and cephalic vein. -Monitor INR and bleeding -no bleeding on exam -DIC panel negative Endo: Persistent hypoglycemia -tube feedings as tolerated; restarted with trickle feedings -Accu-Cheks every 4 -Hypoglycemia protocol -Avoid hypoglycemia ID: Pulmonary infiltrate in right lung, Hypothermia -Infectious disease consulted, appreciate recommendations -COVID-19 PCR negative -Antibiotic therapy with cefepime -Monitor CBC and temperature curve -Intermittent Joseph hugger use -TSH 2.1 The high probability of a clinically significant, sudden or life threatening deterioration of the [multi] system(s) required my full and direct attention, intervention and personal management. The aggregate critical care time was [60] minutes. This time is in addition to time spent performing reported procedures but includes the following: [x] Data Review and interpretation [x] Patient assessment and monitoring of vital signs [x] Documentation [x] Medication orders and management Disposition Plan: icu Total Time Spent with Patient (Minutes): 60 History Interval history: This is 74-year-old male with GERD who presented with AMS and left-sided weakness on 10/03 after being found incontinent in feces and urine on bed. Patient was only able to answer simple questions to the EMS. Upon presentation to the ED patient was confused. CT head showed cerebral with arthrosclerotic calcification. Work-up in the emergency department revealed anemia and hypoglycemia. Patient admitted to the hospital service for further work-up. 10/03/20: CT of the head no acute finding but showed a cerebral atrophy with suspicious atrophy and atherosclerotic calcification within the distal right middle cerebral artery. Patient also noted with hemoglobin of 5.8, received 1 unit of packed RBC and ordered for tomorrow Neuro is consulted, Covid test is negative We will check stool for occult blood MRI brain ordered we will follow Will hold any oral medicine until cleared by speech or passes the bedside swallow eval Patient noted to have severe hypoglycemic, will place on D10W Follow H&H and BMP Continue current management plan as dictated in the HPI 10/04/20: no acute findings in MRI, pending EEG, s/p 3 units PRBC transfusion. follow speech JACQUELINE rivera for now, h/h stable, GI consulted - follow recommendation. 10/05/20 Patient with acute encephalopathy, severe anemia s/p PRBC transfusion. GI following. Hgb 9.8 today. Will repeat in am. Left sided weakness. MRI negative for stroke. Neurology following. 10/06/20 Patient with encephalopathy, severe anemia s/p PRBC transfusion. Hgb 9.4 today. Patient has left sided weakness but MRI neg. Patient needs PEG tube. Will talk with family. Hypokalemia. Replace Q6h X 2. Check Mg 10/07/20 Patient with encephalopathy, severe anemia s/p PRBC transfusion. Hgb 9.6 today. Patient has left sided weakness but MRI neg. Patient needs PEG tube. Will talk with family. Hyponatremia of 128. This may be due to D10% he was on prior to NG tube. Stopped 10% Dextrose. Consulted Nephrology 10/08/20 Patient with encephalopathy, severe anemia s/p PRBC transfusion. Hgb 9.6 today. Patient has left sided weakness but MRI neg. Patient needs PEG tube. Hyponatremia worse today 126. This is due to D10% resumed last night because of hypoglycemia. I discussed with Dr. Herrera. Stop 10%Dextrose. Start D5NS Spoke to daughterCindy, yesterday and gave update. She wants PEG tube placed. Discussed plan with PAKO Chambers. He wants to do upper and lower endoscopy to evaluate anemia, before PEG tube 10/09/20 Patient with encephalopathy, severe anemia s/p PRBC transfusion. Hgb 10.3 today. Patient has left sided weakness but MRI neg. Patient needs PEG tube. Hyponatremia still present Na 126 today. This is due to D10% resumed again last night because of hypoglycemia. Nephrology had recommended D5NS but 10% Dextrose restarted overnight because of hypoglycemia. Nurses unable to place NG tube. I discussed with Dr. Otero today and he will do. Spoke to Cindy hanson, yesterday and gave update. She wants PEG tube placed. Discussed plan with PAKO Chambers. He wants to do upper and lower endoscopy to evaluate anemia, before PEG tube Today Na still 126. I discussed with Dr. Herrera and he recommended D10NS. I called Pharmacy. They will mix special D10NS drip. Patient had bilateral pneumonia on CXR therefore started iv Antibiotics, blood cultures. yesterday. Consulted ID 10/10/2020. Patient remains encephalopathic with hemoglobin stabilizing yesterday. Recheck H&H. Patient with left-sided weakness but MRI negative. Fluoroscopic NG tube placement completed yesterday. Await GI to perform EGD and colonoscopy. Follow-up hyponatremia with BMP results. Dr. Aldrich Spoke to daughter, Cindy Singh, and gave update. Daughter wants PEG tube placed. Continue IV antibiotics for bilateral pneumonia. ID consulted. Follow-up procalcitonin levels. 10/11/2020. Patient's hemoglobin remained stable today at 9.5. However, patient noted to be hypotensive with systolic blood pressure of 83. Patient received NS 250 cc bolus with improvement of blood pressure systolically to 123. GI plans to perform EGD/colonoscopy tomorrow. Hyponatremia improving. Start IV fluid of normal saline at 75 cc an hour x1 L 10/12/2020. Patient noted to have some gurgling of the upper airway. NG tube was placed to low intermittent suction. Check chest x-ray and KUB to rule out aspiration and/or ileus. Continue to monitor. H/H remained stable. ID stopped antibiotics due to normal procalcitonin. Speech evaluation 10/13/2020. Patient remains encephalopathic. I discussed overall mental status with the daughter yesterday and updated her with plan of care. Neurology reports: CT angio of the head that is a significant narrowing seen in both posterior cerebral arteries - and no signs of large vessel -CT of the head no acute finding but showed a cerebral atrophy with suspicious atrophy and atherosclerotic calcification within the distal right middle cerebral artery. -MRI brain without any acute findings - EEG completed yesterday remarkable for diffuse slowing 3-4 Hz and with occassional triphasic waves , no epileptiform discharges is noted -- full report to follow -Repeat MRI brain showed no acute finding Keppra was decreased to 250 mg IV twice daily and thiamine was added x3 days. No LP for now due to lack of any inflammatory findings. Repeat EEG per neurology. Sodium level has improved. Serum creatinine has increased to 1.6 today. Avoid nephrotoxic agents and monitor I/O's daily. Salt tabs 2 g 3 times daily per nephrology 10/14/2020. Patient remains encephalopathic. MRI, EEG and CT results noted above. Continue supportive care. Defer to neurology recommendations regarding mental status/encephalopathy. Continue salt tabs per nephrology. Follow-up BMP. Avoid nephrotoxic agents and monitor I/O's daily. Continue NG tube feedings. PEG placement per GI. 10/15/2020. Patient noted to have significant respiratory distress. Patient with tachypnea, some accessory muscle use, labored breathing and coarse breath sounds and sonorous respirations. Dr. Maldonado from the emergency department intubated the patient. Dr. Floyd was consulted and notified. The patient will be transferred to the ICU and continued on mechanical ventilation. Follow-up chest x-ray. 10/16: Patient is having persistent hypoglycemia despite being on D10 23% saline at 100ml/hr. given multiple amps of D50 with minimal response. The patient IV fluids changed to D5W at 125. Repeat BMP in the p.m. 10/17: hypoglycemia better, remains on levophed, epi, neoshynephrine, dobumatine and bicarb gtt this morning. RN is slowly titrating vasopressor as tolerated. Updated daughter Mignon today and relayed new findings including posturing of BUE to pain. 10/18: Patient is being slowly weaned off of vasopressor support by RN. Patient remains on phenyl epinephrine, vasopressin, norepinephrine and amiodarone. Nephrology will resume Lasix. Patient is hyponatremic today however he is on a bicarb drip which we will add today. This evening patient noted to be anemic and have low platelets. Transfuse platelets and PRBC. NGT to suction 10/19: remains on vasopressor support, renal will reassess HD tomorrow. Patient with significant edema. Dr. Gorman spoke to family who wishes for code status to not change. 10/20: Amiodarone stopped by cardiology, patient placed on hypertonic saline by nephrology. Patient is tolerating trickle feedings at this time. Patient strep ordered for diuresis. Patient is being weaned off vasopressors as tolerated. 10/21: Patient remains on vasopressors however vasopressors are being weaned as tolerated, dobutamine drip continues, RN and [employer] updated family at bedside today via FaceTime. Patient was started on Lasix drip today. Patient had hypokalemia and hypomagnesemia which were repleted. 10/22: Patient still has hyponatremia, hypokalemia, hypochloremia with slightly improving renal function. Patient remains on Lasix. Still having thrombocytopenia and was transfused with 1 unit platelet today. RN is weaning vasopressors as tolerated. Patient is on minimal vent settings. Hospitalist Physical - Constitutional Vitals: Temp Pulse Resp BP Pulse Ox 97.5 F L 86 21 124/49 98 10/22/20 03:11 10/22/20 13:45 10/22/20 13:45 10/22/20 13:45 10/22/20 13:45 General appearance: Present: other (Unresponsive to painful stimuli) - EENT ENT: dentition normal - Neck Neck: Absent: masses or JVD, cervical LAD - Respiratory Respiratory effort: normal Respiratory: bilateral: diminished - Cardiovascular Rhythm: regular Heart Sounds: Present: S1 & S2. Absent: systolic murmur, diastolic murmur - Extremities Extremities: pulses intact, pulses symmetrical Extremity abnormal: edema, cold - Peripheral Assessment Generalized Edema Type: Pitting Edema Degree: 4+ Capillary Refill: < 3 seconds Skin Temperature: Cold Peripheral Pulses: within normal limits - Abdominal General gastrointestinal: soft, non-tender, distended - Integumentary Integumentary: Absent: normal turgor - Psychiatric Psychiatric: other - Neurologic Neurologic: other (Intact cough/gag, patient does blink spontaneously however does not follow commands) - Allied Health Allied health notes reviewed: nursing, RT, social work HEART Score - HEART Score Troponin: Troponin T < 0.010 ng/mL (0.00-0.029) 10/02/20 23:17 Results - Labs CBC & Chem 7: 10/22/20 06:00 10/22/20 02:43 Labs: Laboratory Last Values WBC 6.5 K/mm3 (4.5-11.0) 10/22/20 06:00 RBC 3.29 M/mm3 (3.65-5.03) L 10/22/20 06:00 Hgb 8.0 gm/dl (11.8-15.2) L 10/22/20 06:00 Hct 24.3 % (35.5-45.6) L 10/22/20 06:00 MCV 74 fl (84-94) L 10/22/20 06:00 MCH 24 pg (28-32) L 10/22/20 06:00 MCHC 33 % (32-34) 10/22/20 06:00 RDW 32.2 % (13.2-15.2) H 10/22/20 06:00 Plt Count 21 K/mm3 (140-440) L 10/22/20 06:00 Lymph % (Auto) Core Cutter 10/10/20 10:58 Morrison % (Auto) 8.3 % (0.0-7.3) H 10/15/20 05:50 Eos % (Auto) 0.3 % (0.0-4.3) 10/15/20 05:50 Baso % (Auto) Core Cutter 10/10/20 10:58 Lymph # (Auto) Core Cutter 10/10/20 10:58 Morrison # (Auto) 1.3 K/mm3 (0.0-0.8) H 10/15/20 05:50 Eos # (Auto) 0.0 K/mm3 (0.0-0.4) 10/15/20 05:50 Baso # (Auto) 0.1 K/mm3 (0.0-0.1) 10/15/20 05:50 Add Manual Diff Complete 10/21/20 Unknown Total Counted 100 10/21/20 Unknown Seg Neutrophils % Core Cutter 10/21/20 Unknown Seg Neuts % (Manual) 83.0 % (40.0-70.0) H 10/21/20 Unknown Band Neutrophils % 13.0 % 10/17/20 04:49 Lymphocytes % (Manual) 10.0 % (13.4-35.0) L 10/21/20 Unknown Monocytes % (Manual) 7.0 % (0.0-7.3) 10/21/20 Unknown Eosinophils % (Manual) 1.0 % (0.0-4.3) 10/13/20 05:24 Basophils % (Manual) 2.0 % (0.0-1.8) H 10/10/20 10:58 Metamyelocytes % 11.0 % 10/17/20 04:49 Myelocytes % 7.0 % 10/17/20 04:49 Nucleated RBC % 2.0 % (0.0-0.9) H 10/21/20 Unknown Seg Neutrophils # 13.2 K/mm3 (1.8-7.7) H 10/15/20 05:50 Seg Neutrophils # Man 9.0 K/mm3 (1.8-7.7) H 10/21/20 Unknown Band Neutrophils # 0.0 K/mm3 10/21/20 Unknown Lymphocytes # (Manual) 1.1 K/mm3 (1.2-5.4) L 10/21/20 Unknown Abs React Lymphs (Man) 0.0 K/mm3 10/21/20 Unknown Monocytes # (Manual) 0.8 K/mm3 (0.0-0.8) 10/21/20 Unknown Eosinophils # (Manual) 0.0 K/mm3 (0.0-0.4) 10/21/20 Unknown Basophils # (Manual) 0.0 K/mm3 (0.0-0.1) 10/21/20 Unknown Metamyelocytes # 0.0 K/mm3 10/21/20 Unknown Myelocytes # 0.0 K/mm3 10/21/20 Unknown Promyelocytes # 0.0 K/mm3 10/21/20 Unknown Blast Cells # 0.0 K/mm3 10/21/20 Unknown WBC Morphology Not Reportable 10/21/20 Unknown WBC Morphology TNR 10/21/20 Unknown Hypersegmented Neuts Not Reportable 10/21/20 Unknown Hyposegmented Neuts Not Reportable 10/21/20 Unknown Hypogranular Neuts Not Reportable 10/21/20 Unknown Smudge Cells Not Reportable 10/21/20 Unknown Toxic Granulation Not Reportable 10/21/20 Unknown Toxic Vacuolation Not Reportable 10/21/20 Unknown Dohle Bodies Not Reportable 10/21/20 Unknown Pelger-Huet Anomaly Not Reportable 10/21/20 Unknown Andrés Rods Not Reportable 10/21/20 Unknown Platelet Estimate Consistent w auto 10/21/20 Unknown Clumped Platelets Not Reportable 10/21/20 Unknown Plt Clumps, EDTA Not Reportable 10/21/20 Unknown Large Platelets Not Reportable 10/21/20 Unknown Giant Platelets Not Reportable 10/21/20 Unknown Platelet Satelliting Not Reportable 10/21/20 Unknown Plt Morphology Comment Not Reportable 10/21/20 Unknown RBC Morphology Not Reportable 10/21/20 Unknown Dimorphic RBCs Not Reportable 10/21/20 Unknown Polychromasia Not Reportable 10/21/20 Unknown Hypochromasia Few 10/21/20 Unknown Poikilocytosis Not Reportable 10/21/20 Unknown Anisocytosis Not Reportable 10/21/20 Unknown Microcytosis Not Reportable 10/21/20 Unknown Macrocytosis Not Reportable 10/21/20 Unknown Spherocytes Not Reportable 10/21/20 Unknown Pappenheimer Bodies Not Reportable 10/21/20 Unknown Sickle Cells Not Reportable 10/21/20 Unknown Target Cells 1+ 10/21/20 Unknown Tear Drop Cells Few 10/21/20 Unknown Ovalocytes Not Reportable 10/21/20 Unknown Helmet Cells Not Reportable 10/21/20 Unknown [place] Bodies Not Reportable 10/21/20 Unknown [place] Rings Not Reportable 10/21/20 Unknown [place] Cells Few 10/21/20 Unknown Bite Cells Not Reportable 10/21/20 Unknown Crenated Cell Not Reportable 10/21/20 Unknown Elliptocytes Not Reportable 10/21/20 Unknown Acanthocytes (Spur) Not Reportable 10/21/20 Unknown Rouleaux Not Reportable 10/21/20 Unknown Hemoglobin C Crystals Not Reportable 10/21/20 Unknown Schistocytes Not Reportable 10/21/20 Unknown Malaria parasites Not Reportable 10/21/20 Unknown Dereck Bodies Not Reportable 10/21/20 Unknown Hem Pathologist Commnt No 10/21/20 Unknown PT 27.0 Sec. (12.2-14.9) H 10/21/20 Unknown INR 2.44 (0.87-1.13) H 10/21/20 Unknown APTT 61.4 Sec. (24.2-36.6) H* 10/21/20 Unknown Thrombin Time 17.8 Sec. (15.1-19.6) 10/02/20 23:17 Fibrinogen 482 mg/dl (211-480) H 10/21/20 Unknown D-Dimer 1992.93 ng/mlDDU (0-234) H 10/21/20 Unknown ABG pH 7.431 (7.320-7.450) 10/22/20 04:00 POC ABG pCO2 29.1 mmHg (32.0-48.0) L 10/22/20 04:00 POC ABG pO2 64.1 mmHg (83-108) L 10/22/20 04:00 POC ABG HCO3 18.9 10/22/20 04:00 ABG O2 Saturation 91.3 (0-100) 10/22/20 04:00 POC ABG Base Excess -4.7 10/22/20 04:00 ABG Hemoglobin 8.2 (12.0-17.5) L 10/22/20 04:00 ABG Oxyhemoglobin 90.6 (94-98) L 10/22/20 04:00 ABG Methemoglobin 0.3 (0.0-1.5) 10/22/20 04:00 ABG Sodium 118.8 mmol/L (136.0-145.0) L 10/22/20 04:00 ABG Potassium 3.2 mmol/L (3.40-4.50) L 10/21/20 04:00 ABG Chloride 96.0 mmol/L (98-107) L 10/22/20 04:00 ABG Glucose 117 mg/dL (65-95) H 10/22/20 04:00 Carboxyhemoglobin 0.5 (0.5-1.5) 10/22/20 04:00 FiO2 % 40.0 10/22/20 04:00 Sodium 122 mmol/L (137-145) L 10/22/20 02:43 Potassium 3.1 mmol/L (3.6-5.0) L 10/22/20 02:43 Chloride 92.9 mmol/L (98-107) L 10/22/20 02:43 Carbon Dioxide 23 mmol/L (22-30) 10/22/20 02:43 Anion Gap 9 mmol/L 10/22/20 02:43 BUN 44 mg/dL (9-20) H 10/22/20 02:43 Creatinine 3.2 mg/dL (0.8-1.3) H 10/22/20 02:43 Estimated GFR 23 ml/min 10/22/20 02:43 BUN/Creatinine Ratio 14 % 10/22/20 02:43 Glucose 97 mg/dL (75-100) 10/22/20 02:43 POC Glucose 86 mg/dL (70-105) 10/22/20 14:00 Hemoglobin A1c 5.2 % (4-6) 10/03/20 05:57 Osmolality 267 Mosm/kg 10/07/20 13:54 Lactic Acid 1.50 mmol/L (0.7-2.0) 10/03/20 04:43 Calcium 7.8 mg/dL (8.4-10.2) L 10/22/20 02:43 Phosphorus 2.60 mg/dL (2.5-4.5) D 10/21/20 05:50 Magnesium 1.60 mg/dL (1.7-2.3) L 10/21/20 05:50 Iron 42 ug/dL (49-181) L 10/03/20 05:57 TIBC 305 mcg/dL (250-450) 10/03/20 05:57 Total Bilirubin 1.60 mg/dL (0.1-1.2) H 10/20/20 08:43 Direct Bilirubin 0.9 mg/dL (0-0.2) H 10/19/20 04:51 Indirect Bilirubin 0.6 mg/dL 10/19/20 04:51 AST 27 units/L (5-40) 10/20/20 08:43 ALT 27 units/L (7-56) 10/20/20 08:43 Alkaline Phosphatase 152 units/L (35-129) H 10/20/20 08:43 Ammonia 22.0 umol/L (25-60) L 10/02/20 23:17 Total Creatine Kinase 88 units/L (55-170) 10/02/20 23:17 CK-MB (CK-2) 7.5 ng/mL (0.0-4.0) H 10/02/20 23:17 CK-MB (CK-2) Rel Index 8.5 (0-4) H 10/02/20 23:17 Troponin T < 0.010 ng/mL (0.00-0.029) 10/02/20 23:17 Total Protein 4.5 g/dL (6.3-8.2) L 10/20/20 08:43 Albumin 1.6 g/dL (3.9-5) L 10/20/20 08:43 Albumin/Globulin Ratio 0.6 % 10/20/20 08:43 Lipase 17 units/L (13-60) 10/16/20 22:58 Procalcitonin 0.10 ng/mL (<0.15) 10/10/20 10:58 TSH 2.130 mlU/mL (0.270-4.200) 10/07/20 13:54 Total Cortisol 17.4 mcg/dL () 10/09/20 02:46 Arterial Blood Glucose 117 mg/dL (65-95) H 10/22/20 04:00 Arterial Blood Ionized Calcium 4.6 mg/dL (4.6-5.3) 10/22/20 04:00 Urine Eosinophils None seen (None Seen) 10/14/20 Unknown Urine Osmolality 223 Mosm/kg 10/07/20 Unknown Urine Creatinine 144.2 mg/dL (0.1-20.0) H 10/14/20 Unknown Protein/Creatinin Ratio 0.67 10/14/20 Unknown Urine Sodium 10 mmol/L 10/14/20 Unknown Urine Total Protein 97 mg/dL (5-11.8) H 10/14/20 Unknown Salicylates < 0.3 mg/dL (2.8-20.0) L 10/02/20 23:17 Acetaminophen 5.0 ug/mL (10.0-30.0) L 10/02/20 23:17 Plasma/Serum Alcohol < 0.01 % (0-0.07) 10/02/20 23:17 Coronavirus (PCR) Negative (Negative) 10/14/20 08:00 Blood Type O POSITIVE 10/18/20 19:08 Antibody Screen Negative 10/18/20 19:08 Crossmatch See Detail 10/18/20 19:08 Munoz/IV: Voiding Method Indwelling Catheter Active Medications - Current Medications Current Medications: Generic Name Dose Route Start Last Admin Trade Name Freq PRN Reason Stop Dose Admin Acetaminophen 650 mg 10/03/20 02:10 10/06/20 15:28 Acetaminophen 325 Mg Tab PO 650 mg Q4H PRN Administration Pain MILD(1-3)/Fever >100.5/ROMERO Al Hydrox/Mg Hydrox/Simethicone 30 ml 10/03/20 02:10 Alum-Mag Hydroxide-Simethicone [id number]/5ml Oral Liqd 30 Ml PO Q4H PRN Indigestion Lipase/Protease/Amylase 1 each 10/03/20 16:51 Lipase 10,500/Protease 25,000/Amylase 43,750 (Units) Dr Cap FEEDTUBE PRN PRN For Clogged Feeding Tube Dextrose 50 ml 10/16/20 12:42 10/21/20 17:39 Dextrose 50% In Water (25gm) 50 Ml Syringe IV 50 ml Q30MIN PRN Administration Hypoglycemia Protocol Fentanyl 50 mcg 10/22/20 10:00 Fentanyl 100 Mcg/2 Ml Inj IV Q4HR PRN Pain , Severe (7-10) Ferrous Sulfate 308 mg 10/16/20 10:00 10/22/20 09:39 Ferrous Sulfate 308 Mg (62mg Elemental Iron) / 7 Ml Elixir FEEDTUBE 308 mg DAILY JOSE Administration Folic Acid 1 mg 10/03/20 10:00 10/22/20 09:40 Folic Acid 1 Mg Tab PO 1 mg QDAY JOSE Administration Hydrocortisone Sodium Succinate 100 mg 10/19/20 18:00 10/22/20 10:11 Hydrocortisone Sod Succ 100 Mg/2 Ml Vial IV 100 mg Q8H JOSE Administration Levetiracetam 250 mg/ Dextrose 102.5 mls @ 400 mls/hr 10/10/20 22:00 10/22/20 09:39 IV 400 mls/hr Q12HR JOSE Administration Vasopressin 20 unit/ Sodium 101 mls @ 9.09 mls/hr 10/16/20 13:00 10/22/20 12:20 Chloride IV Infused TITR JOSE Titration Protocol 0.03 UNITS/MIN Phenylephrine HCl 100 mg/ 100 mls @ 3 mls/hr 10/16/20 18:00 10/20/20 11:50 Sodium Chloride IV 0 mcg/min TITR JOSE 0 mls/hr Titration Protocol 50 MCG/MIN NORepinephrine/NS 8 MG-250 ML 8 mg in 250 mls @ 3.75 mls/hr 10/16/20 19:00 10/21/20 16:56 Norepinephrine/Ns 8 Mg-250 Ml (Double Conc) IV 0 mcg/min TITRATE JOSE 0 mls/hr Titration Protocol 2 MCG/MIN Dobutamine HCl/Dextrose 500 mg in 250 mls @ 6.908 mls/hr 10/16/20 19:00 10/21/20 11:32 Dobutrex Drip 500mg/D5w 250ml IV 5 mcg/kg/min DIRECT JOSE 13.815 mls/hr Administration Protocol 2.5 MCG/KG/MIN Epinephrine 8 mg/ Sodium 250 mls @ 0 mls/hr 10/16/20 23:45 10/17/20 11:33 Chloride IV 0 mls/hr TITR JOSE Infusion Cefepime HCl 2 gm in 100 mls @ 200 mls/hr 10/17/20 22:00 10/21/20 23:13 Cefepime/Ns 2 Gm/100 Ml IV 10/22/20 22:29 200 mls/hr Q24H JOSE Administration Protocol Furosemide 100 mg/ Sodium 100 mls @ 5 mls/hr 10/21/20 08:00 10/22/20 07:50 Chloride IV 5 mls/hr TITR JOSE Administration As Directed Sodium Chloride 500 mls @ 0 mls/hr 10/22/20 12:08 Nacl 0.9% 500 Ml IV 10/22/20 23:59 ONCE NR As Directed Magnesium Hydroxide 30 ml 10/03/20 02:10 Magnesium Hydroxide (Mom) Oral Liqd Udc PO Q4H PRN Constipation Metoclopramide HCl 5 mg 10/17/20 09:00 Metoclopramide 10 Mg/2 Ml Inj IV Q6H PRN Nausea And Vomiting Ondansetron HCl 4 mg 10/03/20 02:10 10/07/20 23:19 Ondansetron 4 Mg/2 Ml Inj IV 4 mg Q8H PRN Administration Nausea And Vomiting Pantoprazole Sodium 40 mg 10/04/20 15:00 10/22/20 09:39 Pantoprazole 40 Mg Inj IV 40 mg QDAY JOSE Administration Promethazine HCl 25 mg 10/03/20 02:10 Promethazine 25 Mg Rect Supp OR Q6H PRN N/V IF NPO AND NO IV ACCESS Senna 8.6 mg 10/03/20 02:10 Sennosides 8.6 Mg Tab PO Q12HR PRN Constipation Simple Syrup 15 ml 10/03/20 16:51 10/19/20 02:08 Simple Syrup 15 Ml FEEDTUBE 15 ml PRN PRN Administration Hypoglycemia Simple Syrup 30 ml 10/03/20 16:51 10/16/20 22:02 Simple Syrup 15 Ml FEEDTUBE 30 ml PRN PRN Administration Hypoglycemia Sodium Bicarbonate 325 mg 10/03/20 16:51 Sodium Bicarbonate 325 Mg Tab FEEDTUBE PRN PRN For Clogged Feeding Tube Nutrition/Malnutrition Assess - Dietary Evaluation Nutrition/Malnutrition Findings: Nutrition Notes Start: 10/03/20 08:51 Freq: Status: Active Protocol: Document 10/20/20 11:01 BETSY (Rec: 10/20/20 11:05 BETSY [id number]) Nutrition Notes Initial or Follow up Reassessment Current Diagnosis Diabetes Other Pertinent Diagnosis AMS, hypothermia, pneu, anemia , atherosclerotic cerebrovascular disease Current Diet Nepro 1.8 at 40 ml/hr Labs/Tests Na 119 BUN 35 Cr 3.3 Mg 1.3 Pertinent Medications Sodium Bicarb at 125 ml/hr Lasix Vasopressin Height 5 ft 10 in Weight 92.1 kg [facility] Body Weight (kg) 75.45 BMI 29.1 Weight Status Overweight Subjective/Other Information TF turned back on this AM at 20 ml/hr. Burn Absent Trauma Absent Difficulty In Swallowing Current % PO Negligible Minimum of two criteria No Fluid Accumulation Moderate to Severe (severe) #1 Nutrition Diagnosis Swallowing difficulty Diagnosis Progress(for reassessment Continues documentation) Is patient on ventilator? No Is Patient Ambulatory and/or Out of Bed No REE-([facility]-confined to bed) 1993.892 Kcal/Kg value to use for calculation 20 Approximate Energy Requirements Using 1842 kcal/Kg Calculation Used for Recommendations Kcal/kg Additional Notes Protein: (1-1.2g/kg) 84-101g Fluid: 1 ml/kcal Nutrition Intervention Nutrition Support: Nepro at 40ml/hour. For hyponatremia flush 50 ml q4h, once resolved resume flush at 170 ml q4h Kcal 1,728 Protein (gm) 78 Fluid (mL) 698 Goal #1 Meet at least 75% of protein and energy needs via TF Anticipated Discharge Needs: continue TF regimen Follow-Up By: 10/23/20 Additional Comments F/u: TF at goal and tolerance <TJ GORMAN - Last Filed: 10/24/20 09:09> History Interval history: I saw and evaluated the patient. Discussed with the nurse practitioner and agree with their findings and plan as documented in this note. Hospitalist Physical - Constitutional Vitals: Temp Pulse Resp BP Pulse Ox 97.9 F 91 H 30 H 115/66 98 10/24/20 07:00 10/24/20 07:51 10/24/20 06:31 10/24/20 07:51 10/24/20 07:51 HEART Score - HEART Score Troponin: Troponin T < 0.010 ng/mL (0.00-0.029) 10/02/20 23:17 Results - Labs CBC & Chem 7: 10/24/20 05:27 10/24/20 05:27 Labs: Laboratory Last Values WBC 8.7 K/mm3 (4.5-11.0) 10/24/20 05:27 RBC 2.98 M/mm3 (3.65-5.03) L 10/24/20 05:27 Hgb 7.4 gm/dl (11.8-15.2) L 10/24/20 05:27 Hct 21.8 % (35.5-45.6) L 10/24/20 05:27 MCV 73 fl (84-94) L 10/24/20 05:27 MCH 25 pg (28-32) L 10/24/20 05:27 MCHC 34 % (32-34) 10/24/20 05:27 RDW 32.2 % (13.2-15.2) H 10/24/20 05:27 Plt Count 56 K/mm3 (140-440) L 10/24/20 05:27 Lymph % (Auto) Core Cutter 10/10/20 10:58 Morrison % (Auto) 8.3 % (0.0-7.3) H 10/15/20 05:50 Eos % (Auto) 0.3 % (0.0-4.3) 10/15/20 05:50 Baso % (Auto) Core Cutter 10/10/20 10:58 Lymph # (Auto) Core Cutter 10/10/20 10:58 Morrison # (Auto) 1.3 K/mm3 (0.0-0.8) H 10/15/20 05:50 Eos # (Auto) 0.0 K/mm3 (0.0-0.4) 10/15/20 05:50 Baso # (Auto) 0.1 K/mm3 (0.0-0.1) 10/15/20 05:50 Add Manual Diff Complete 10/23/20 05:35 Total Counted 100 10/23/20 05:35 Seg Neutrophils % Core Cutter 10/21/20 Unknown Seg Neuts % (Manual) 83.0 % (40.0-70.0) H 10/23/20 05:35 Band Neutrophils % 5.0 % 10/23/20 05:35 Lymphocytes % (Manual) 9.0 % (13.4-35.0) L 10/23/20 05:35 Reactive Lymphs % (Man) 1.0 % 10/23/20 05:35 Monocytes % (Manual) 1.0 % (0.0-7.3) 10/23/20 05:35 Eosinophils % (Manual) 1.0 % (0.0-4.3) 10/23/20 05:35 Basophils % (Manual) 2.0 % (0.0-1.8) H 10/10/20 10:58 Metamyelocytes % 11.0 % 10/17/20 04:49 Myelocytes % 7.0 % 10/17/20 04:49 Nucleated RBC % 3.0 % (0.0-0.9) H 10/23/20 05:35 Seg Neutrophils # 13.2 K/mm3 (1.8-7.7) H 10/15/20 05:50 Seg Neutrophils # Man 6.1 K/mm3 (1.8-7.7) 10/23/20 05:35 Band Neutrophils # 0.4 K/mm3 10/23/20 05:35 Lymphocytes # (Manual) 0.7 K/mm3 (1.2-5.4) L 10/23/20 05:35 Abs React Lymphs (Man) 0.1 K/mm3 10/23/20 05:35 Monocytes # (Manual) 0.1 K/mm3 (0.0-0.8) 10/23/20 05:35 Eosinophils # (Manual) 0.1 K/mm3 (0.0-0.4) 10/23/20 05:35 Basophils # (Manual) 0.0 K/mm3 (0.0-0.1) 10/23/20 05:35 Metamyelocytes # 0.0 K/mm3 10/23/20 05:35 Myelocytes # 0.0 K/mm3 10/23/20 05:35 Promyelocytes # 0.0 K/mm3 10/23/20 05:35 Blast Cells # 0.0 K/mm3 10/23/20 05:35 WBC Morphology Not Reportable 10/23/20 05:35 Hypersegmented Neuts Not Reportable 10/23/20 05:35 Hyposegmented Neuts Not Reportable 10/23/20 05:35 Hypogranular Neuts Not Reportable 10/23/20 05:35 Smudge Cells Not Reportable 10/23/20 05:35 Toxic Granulation 1+ 10/23/20 05:35 Toxic Vacuolation 1+ 10/23/20 05:35 Dohle Bodies 1+ 10/23/20 05:35 Pelger-Huet Anomaly Not Reportable 10/23/20 05:35 Andrés Rods Not Reportable 10/23/20 05:35 Platelet Estimate Consistent w auto 10/23/20 05:35 Clumped Platelets Not Reportable 10/23/20 05:35 Plt Clumps, EDTA Not Reportable 10/23/20 05:35 Large Platelets Not Reportable 10/23/20 05:35 Giant Platelets Not Reportable 10/23/20 05:35 Platelet Satelliting Not Reportable 10/23/20 05:35 Plt Morphology Comment Not Reportable 10/23/20 05:35 RBC Morphology Not Reportable 10/23/20 05:35 Dimorphic RBCs Not Reportable 10/23/20 05:35 Polychromasia 1+ 10/23/20 05:35 Hypochromasia 2+ 10/23/20 05:35 Poikilocytosis 2+ 10/23/20 05:35 Anisocytosis 3+ 10/23/20 05:35 Microcytosis Not Reportable 10/23/20 05:35 Macrocytosis Not Reportable 10/23/20 05:35 Spherocytes 1+ 10/23/20 05:35 Pappenheimer Bodies Not Reportable 10/23/20 05:35 Sickle Cells Not Reportable 10/23/20 05:35 Target Cells 1+ 10/23/20 05:35 Tear Drop Cells Not Reportable 10/23/20 05:35 Ovalocytes Not Reportable 10/23/20 05:35 Helmet Cells Not Reportable 10/23/20 05:35 [place] Bodies Not Reportable 10/23/20 05:35 [place] Rings Not Reportable 10/23/20 05:35 Norbert Cells Not Reportable 10/23/20 05:35 Bite Cells Not Reportable 10/23/20 05:35 Crenated Cell Not Reportable 10/23/20 05:35 Elliptocytes Not Reportable 10/23/20 05:35 Acanthocytes (Spur) 1+ 10/23/20 05:35 Rouleaux Not Reportable 10/23/20 05:35 Hemoglobin C Crystals Not Reportable 10/23/20 05:35 Schistocytes Not Reportable 10/23/20 05:35 Malaria parasites Not Reportable 10/23/20 05:35 Dereck Bodies Not Reportable 10/23/20 05:35 Hem Pathologist Commnt No 10/23/20 05:35 PT 20.4 Sec. (12.2-14.9) H 10/24/20 05:27 INR 1.70 (0.87-1.13) H 10/24/20 05:27 APTT 61.4 Sec. (24.2-36.6) H* 10/21/20 Unknown Thrombin Time 17.8 Sec. (15.1-19.6) 10/02/20 23:17 Fibrinogen 482 mg/dl (211-480) H 10/21/20 Unknown D-Dimer 1992.93 ng/mlDDU (0-234) H 10/21/20 Unknown ABG pH 7.490 (7.320-7.450) H 10/24/20 03:00 POC ABG pCO2 26.8 mmHg (32.0-48.0) L 10/24/20 03:00 POC ABG pO2 Not Reportable 10/24/20 03:00 POC ABG HCO3 20.0 10/24/20 03:00 ABG O2 Saturation 84.6 (0-100) 10/24/20 03:00 POC ABG Base Excess -3.5 10/24/20 03:00 ABG Hemoglobin 3.3 (12.0-17.5) L 10/24/20 03:00 ABG Oxyhemoglobin 83.6 (94-98) L 10/24/20 03:00 ABG Methemoglobin 0.3 (0.0-1.5) 10/24/20 03:00 ABG Sodium 118.0 mmol/L (136.0-145.0) L 10/24/20 03:00 ABG Potassium 3.6 mmol/L (3.40-4.50) 10/24/20 03:00 ABG Chloride 97.0 mmol/L (98-107) L 10/24/20 03:00 ABG Glucose 89 mg/dL (65-95) 10/24/20 03:00 Carboxyhemoglobin 0.9 (0.5-1.5) 10/24/20 03:00 FiO2 % 40.0 10/24/20 03:00 Sodium 123 mmol/L (137-145) L 10/24/20 05:27 Potassium 3.5 mmol/L (3.6-5.0) L 10/24/20 05:27 Chloride 93.3 mmol/L (98-107) L 10/24/20 05:27 Carbon Dioxide 20 mmol/L (22-30) L 10/24/20 05:27 Anion Gap 13 mmol/L 10/24/20 05:27 BUN 66 mg/dL (9-20) H 10/24/20 05:27 Creatinine 3.9 mg/dL (0.8-1.3) H 10/24/20 05:27 Estimated GFR 18 ml/min 10/24/20 05:27 BUN/Creatinine Ratio 17 % 10/24/20 05:27 Glucose 98 mg/dL (75-100) 10/24/20 05:27 POC Glucose > 600 mg/dL (70-105) H 10/23/20 21:01 Hemoglobin A1c 5.2 % (4-6) 10/03/20 05:57 Osmolality 267 Mosm/kg 10/07/20 13:54 Lactic Acid 1.50 mmol/L (0.7-2.0) 10/03/20 04:43 Calcium 8.1 mg/dL (8.4-10.2) L 10/24/20 05:27 Phosphorus 2.80 mg/dL (2.5-4.5) 10/23/20 05:35 Magnesium 2.10 mg/dL (1.7-2.3) 10/23/20 05:35 Iron 42 ug/dL (49-181) L 10/03/20 05:57 TIBC 305 mcg/dL (250-450) 10/03/20 05:57 Total Bilirubin 0.80 mg/dL (0.1-1.2) 10/24/20 05:27 Direct Bilirubin 0.9 mg/dL (0-0.2) H 10/19/20 04:51 Indirect Bilirubin 0.6 mg/dL 10/19/20 04:51 AST 54 units/L (5-40) H 10/24/20 05:27 ALT 54 units/L (7-56) 10/24/20 05:27 Alkaline Phosphatase 316 units/L (35-129) H 10/24/20 05:27 Ammonia 36.0 umol/L (25-60) 10/24/20 05:27 Total Creatine Kinase 88 units/L (55-170) 10/02/20 23:17 CK-MB (CK-2) 7.5 ng/mL (0.0-4.0) H 10/02/20 23:17 CK-MB (CK-2) Rel Index 8.5 (0-4) H 10/02/20 23:17 Troponin T < 0.010 ng/mL (0.00-0.029) 10/02/20 23:17 Total Protein 5.1 g/dL (6.3-8.2) L 10/24/20 05:27 Albumin 1.7 g/dL (3.9-5) L 10/24/20 05:27 Albumin/Globulin Ratio 0.5 % 10/24/20 05:27 Lipase 17 units/L (13-60) 10/16/20 22:58 Procalcitonin 0.10 ng/mL (<0.15) 10/10/20 10:58 TSH 2.130 mlU/mL (0.270-4.200) 10/07/20 13:54 Total Cortisol 17.4 mcg/dL () 10/09/20 02:46 Arterial Blood Glucose 89 mg/dL (65-95) 10/24/20 03:00 Arterial Blood Ionized Calcium 4.5 mg/dL (4.6-5.3) L 10/24/20 03:00 Urine Eosinophils None seen (None Seen) 10/14/20 Unknown Urine Osmolality 223 Mosm/kg 10/07/20 Unknown Urine Creatinine 144.2 mg/dL (0.1-20.0) H 10/14/20 Unknown Protein/Creatinin Ratio 0.67 10/14/20 Unknown Urine Sodium 10 mmol/L 10/14/20 Unknown Urine Total Protein 97 mg/dL (5-11.8) H 10/14/20 Unknown Salicylates < 0.3 mg/dL (2.8-20.0) L 10/02/20 23:17 Acetaminophen 5.0 ug/mL (10.0-30.0) L 10/02/20 23:17 Plasma/Serum Alcohol < 0.01 % (0-0.07) 10/02/20 23:17 Coronavirus (PCR) Negative (Negative) 10/14/20 08:00 Blood Type O POSITIVE 10/22/20 15:05 Antibody Screen Negative 10/18/20 19:08 Crossmatch See Detail 10/18/20 19:08 Munoz/IV: Voiding Method Indwelling Catheter Active Medications - Current Medications Current Medications: Generic Name Dose Route Start Last Admin Trade Name Freq PRN Reason Stop Dose Admin Acetaminophen 650 mg 10/03/20 02:10 10/06/20 15:28 Acetaminophen 325 Mg Tab PO 650 mg Q4H PRN Administration Pain MILD(1-3)/Fever >100.5/ROMERO Al Hydrox/Mg Hydrox/Simethicone 30 ml 10/03/20 02:10 Alum-Mag Hydroxide-Simethicone [id number]/5ml Oral Liqd 30 Ml PO Q4H PRN Indigestion Lipase/Protease/Amylase 1 each 10/03/20 16:51 Lipase 10,500/Protease 25,000/Amylase 43,750 (Units) Dr Reis FEEDTUBE PRN PRN For Clogged Feeding Tube Dextrose 50 ml 10/16/20 12:42 10/21/20 17:39 Dextrose 50% In Water (25gm) 50 Ml Syringe IV 50 ml Q30MIN PRN Administration Hypoglycemia Protocol Fentanyl 50 mcg 10/22/20 10:00 Fentanyl 100 Mcg/2 Ml Inj IV Q4HR PRN Pain , Severe (7-10) Ferrous Sulfate 308 mg 10/16/20 10:00 10/23/20 09:45 Ferrous Sulfate 308 Mg (62mg Elemental Iron) / 7 Ml Elixir FEEDTUBE 308 mg DAILY JOSE Administration Folic Acid 1 mg 10/03/20 10:00 10/23/20 09:45 Folic Acid 1 Mg Tab PO 1 mg QDAY JOSE Administration Hydrocortisone Sodium Succinate 100 mg 10/19/20 18:00 10/24/20 02:12 Hydrocortisone Sod Succ 100 Mg/2 Ml Vial IV 100 mg Q8H JOSE Administration Levetiracetam 250 mg/ Dextrose 102.5 mls @ 400 mls/hr 10/10/20 22:00 10/23/20 21:40 IV 400 mls/hr Q12HR JOSE Administration Vasopressin 20 unit/ Sodium 101 mls @ 9.09 mls/hr 10/16/20 13:00 10/24/20 00:30 Chloride IV 0 units/min TITR JOSE 0 mls/hr Titration Protocol 0.03 UNITS/MIN Phenylephrine HCl 100 mg/ 100 mls @ 3 mls/hr 10/16/20 18:00 10/20/20 11:50 Sodium Chloride IV 0 mcg/min TITR JOSE 0 mls/hr Titration Protocol 50 MCG/MIN NORepinephrine/NS 8 MG-250 ML 8 mg in 250 mls @ 3.75 mls/hr 10/16/20 19:00 10/21/20 16:56 Norepinephrine/Ns 8 Mg-250 Ml (Double Conc) IV 0 mcg/min TITRATE JOSE 0 mls/hr Titration Protocol 2 MCG/MIN Dobutamine HCl/Dextrose 500 mg in 250 mls @ 6.908 mls/hr 10/16/20 19:00 10/23/20 21:29 Dobutrex Drip 500mg/D5w 250ml IV 2.5 mcg/kg/min DIRECT JOSE 6.908 mls/hr Administration Protocol 2.5 MCG/KG/MIN Epinephrine 8 mg/ Sodium 250 mls @ 0 mls/hr 10/16/20 23:45 10/17/20 11:33 Chloride IV 0 mls/hr TITR JOSE Infusion Furosemide 100 mg/ Sodium 100 mls @ 5 mls/hr 10/21/20 08:00 10/23/20 21:40 Chloride IV 5 mls/hr TITR JOSE Administration As Directed Magnesium Hydroxide 30 ml 10/03/20 02:10 Magnesium Hydroxide (Mom) Oral Liqd Udc PO Q4H PRN Constipation Pantoprazole Sodium 40 mg 10/04/20 15:00 10/23/20 09:45 Pantoprazole 40 Mg Inj IV 40 mg QDAY JOSE Administration Potassium Chloride 40 meq 10/24/20 10:00 Potassium Chloride 20 Meq Packet FEEDTUBE 10/24/20 10:01 ONCE ONE Promethazine HCl 25 mg 10/03/20 02:10 Promethazine 25 Mg Rect Supp OR Q6H PRN N/V IF NPO AND NO IV ACCESS Senna 8.6 mg 10/03/20 02:10 Sennosides 8.6 Mg Tab PO Q12HR PRN Constipation Simple Syrup 15 ml 10/03/20 16:51 10/19/20 02:08 Simple Syrup 15 Ml FEEDTUBE 15 ml PRN PRN Administration Hypoglycemia Simple Syrup 30 ml 10/03/20 16:51 10/16/20 22:02 Simple Syrup 15 Ml FEEDTUBE 30 ml PRN PRN Administration Hypoglycemia Sodium Bicarbonate 325 mg 10/03/20 16:51 Sodium Bicarbonate 325 Mg Tab FEEDTUBE PRN PRN For Clogged Feeding Tube Nutrition/Malnutrition Assess - Dietary Evaluation Nutrition/Malnutrition Findings: Nutrition Notes Start: 10/03/20 08:51 Freq: Status: Active Protocol: Document 10/23/20 10:14 (Rec: 10/23/20 10:17 [id number]) Nutrition Notes Initial or Follow up Reassessment Current Diagnosis Diabetes Other Pertinent Diagnosis AMS, hypothermia, pneu, anemia , atherosclerotic cerebrovascular disease Current Diet Nepro 1.8 at 40 ml/hr Labs/Tests Na 128 BUN 56 Cr 3.4 Pertinent Medications Vasopressin Lasix Height 5 ft 10 in Weight 92.1 kg [facility] Body Weight (kg) 75.45 BMI 29.1 Weight Status Overweight Subjective/Other Information Pt tolerating TF at 20 ml/hr. TF was not increased due to pt maxed out on pressors. Per RN , she recently increased TF to 30 ml/hr with a goal of 40 ml /hr. Percent of energy/protein needs met: 47%/46% Burn Absent Trauma Absent Difficulty In Swallowing Current % PO Negligible Minimum of two criteria No Fluid Accumulation Moderate to Severe (severe) #1 Nutrition Diagnosis Swallowing difficulty Diagnosis Progress(for reassessment Continues documentation) Is patient on ventilator? No Is Patient Ambulatory and/or Out of Bed No REE-([facility]-confined to bed) 1987.988 Kcal/Kg value to use for calculation 20 Approximate Energy Requirements Using 1842 kcal/Kg Calculation Used for Recommendations Kcal/kg Additional Notes Protein: (1-1.2g/kg) 84-101g Fluid: 1 ml/kcal Nutrition Intervention Change Diet Order: continue Nutrition Support: Nepro at 40ml/hour. For hyponatremia flush 50 ml q4h, once resolved resume flush at 170 ml q4h Kcal 1,728 Protein (gm) 78 Fluid (mL) 698 Goal #1 Meet at least 75% of protein and energy needs via TF Anticipated Discharge Needs: continue TF regimen Follow-Up By: 10/26/20 Additional Comments F/u: TF at goal and tolerance
[2020-10-22] MEDS: DOBUTamine/D5W 500 MG/250 ML 500 MG/250 ML BAG IV SCH (15:00)
[2020-10-22 20:43] LABS: Calcium 7.9 mg/dL (8.4-10.2)
[2020-10-22] MEDS: CEFEPIME/NS 2 GM/100 ML 2 GM/100 ML BAG IV SCH (22:00)
[2020-10-23] MEDS: FUROSEMIDE 100 MG in SODIUM CHLORIDE 0.9% 90 ML IV SCH ×2 (02:59→21:40)
[2020-10-23] MEDS: HYDROCORTISONE SOD SUCC 100 MG/2 ML VIAL IV SCH ×3 (02:59→18:10)
[2020-10-23] MEDS: VASOPRESSIN 20 UNIT in SODIUM CHLORIDE 0.9% 100 ML IV SCH ×2 (04:09→17:20)
[2020-10-23 06:31] LABS: Hematocrit 21.3 % (35.5-45.6); Hemoglobin 7.3 gm/dl (11.8-15.2); Mean Corpuscular HGB Conc 34 % (32-34); Mean Corpuscular Volume 72 fl (84-94); Red Blood Count 2.94 M/mm3 (3.65-5.03)
[2020-10-23 06:36] LABS: Red Cell Distribution Width 32.3 % (13.2-15.2)
[2020-10-23 06:43] LABS: Calcium 8.4 mg/dL (8.4-10.2)
--- NOTE | 2020-10-23 09:02 | Electrocardiograph Report ---
[facility] Test Date: 2020-10-20 Test Time: 12:09:19 Pat Name: JEREMIAS GUTIÉRREZ Department: Room: A256 1 Gender: M Forensic Analyst: GAEL : 1945 Requested By: BARB COLBERT Order Number: [id number] Reading MD: Kenia Whalen Measurements Intervals [place] Rate: 80 P: 0 IL: 180 QRS: 19 QRSD: 95 T: 32 QT: 431 QTc: 498 Interpretive Statements Probably atrial fibrillation Low voltage, extremity and precordial leads Compared to ECG 10/18/2020 07:55:32 No significant change Electronically Signed On 10-23-2020 9:02:33 EDT by Kenia Whalen
[2020-10-23] MEDS: FERROUS SULFATE 308 MG (62mg Elemental Iron) / 7 ML ELIXIR FEEDTUBE SCH (09:45)
[2020-10-23] MEDS: MULTIVITAMIN / MINERAL ORAL LIQUID 15 ML PO SCH (09:45)
[2020-10-23] MEDS: FOLIC ACID 1 MG TAB PO SCH (09:45)
[2020-10-23] MEDS: PANTOPRAZOLE 40 MG INJ IV SCH (09:45)
[2020-10-23] MEDS: levETIRAcetam 250 MG in DEXTROSE 5% IN WATER 100 ML IV SCH ×2 (09:46→21:40)
[2020-10-23 10:22] LABS: Band Neutrophils # (Manual) 0.4 K/mm3; Dohle Bodies 1+; Total Cells Counted 100
[2020-10-23 10:23] LABS: Hypochromasia 2+; Platelet Estimate Consistent w Auto; Toxic Granulation 1+; Toxic Vacuolation 1+
[2020-10-23 10:32] LABS: Anisocytosis 3+; Poikilocytosis 2+; Spherocytes 1+; Target Cells 1+
[2020-10-23 10:33] LABS: Platelet Count 56 K/mm3 (140-440)
--- NOTE | 2020-10-23 13:04 | Progress Note ---
Assessment and Plan Assessment: Acute encephalopathy Hyponatremia Hypothermia, resolved Pulmonary infiltrate in right lung on CXR Atherosclerotic cerebrovascular disease Severe anemia -possible GI bleed Severe protein-calorie malnutrition Acute Renal Failure Hypokalemia Plan: Sodium level 128 today, yesterday's was 126 No salt tabs as have CHF. 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 Cam Subjective Date of service: 10/23/20 Principal diagnosis: Ac hypoxemic resp failure; Pneumonia; BETSY; Ac. encephalopathy Interval history: Patient seen lying in bed, intubated. Objective - Vital Signs Vital signs: Vital Signs - 12hr 10/23/20 10/23/20 10/23/20 01:15 01:30 01:45 Temperature Pulse Rate 85 79 84 Pulse Rate [ From Monitor] Respiratory 29 H 30 H 30 H Rate Blood Pressure 131/70 131/70 122/68 O2 Sat by Pulse 100 100 100 Oximetry 10/23/20 10/23/20 10/23/20 02:00 02:15 02:30 Temperature Pulse Rate 87 84 80 Pulse Rate [ From Monitor] Respiratory 30 H 30 H 30 H Rate Blood Pressure 106/67 116/58 116/58 O2 Sat by Pulse 100 99 100 Oximetry 10/23/20 10/23/20 10/23/20 02:45 03:00 03:02 Temperature 95.9 F L Pulse Rate 80 76 Pulse Rate [ From Monitor] Respiratory 27 H 30 H Rate Blood Pressure 117/56 117/56 O2 Sat by Pulse 100 100 Oximetry 10/23/20 10/23/20 10/23/20 03:15 03:30 03:45 Temperature Pulse Rate 86 85 84 Pulse Rate [ From Monitor] Respiratory 30 H 30 H 30 H Rate Blood Pressure 120/68 120/68 98/59 O2 Sat by Pulse 100 100 100 Oximetry 10/23/20 10/23/20 10/23/20 03:55 04:00 04:15 Temperature Pulse Rate 78 92 H 86 Pulse Rate [ 84 From Monitor] Respiratory 30 H 30 H Rate Blood Pressure 98/59 98/59 118/61 O2 Sat by Pulse 100 100 100 Oximetry 10/23/20 10/23/20 10/23/20 04:30 04:45 05:00 Temperature Pulse Rate 80 87 88 Pulse Rate [ From Monitor] Respiratory 30 H 30 H 30 H Rate Blood Pressure 110/58 111/62 100/55 O2 Sat by Pulse 100 100 99 Oximetry 10/23/20 10/23/20 10/23/20 05:15 05:30 05:45 Temperature Pulse Rate 92 H 93 H 79 Pulse Rate [ From Monitor] Respiratory 30 H 30 H 30 H Rate Blood Pressure 102/60 101/57 97/62 O2 Sat by Pulse 100 100 99 Oximetry 10/23/20 10/23/20 10/23/20 06:00 06:15 06:30 Temperature Pulse Rate 80 88 101 H Pulse Rate [ From Monitor] Respiratory 30 H 14 30 H Rate Blood Pressure 99/59 106/60 106/60 O2 Sat by Pulse 100 99 98 Oximetry 10/23/20 10/23/20 10/23/20 06:45 07:00 07:16 Temperature Pulse Rate 90 88 84 Pulse Rate [ From Monitor] Respiratory 30 H 30 H 30 H Rate Blood Pressure 98/63 111/69 114/63 O2 Sat by Pulse 98 99 100 Oximetry 10/23/20 10/23/20 10/23/20 07:30 07:45 08:00 Temperature 97.7 F Pulse Rate 94 H 87 87 Pulse Rate [ 87 From Monitor] Respiratory 30 H 30 H 30 H Rate Blood Pressure 121/58 120/66 127/56 O2 Sat by Pulse 99 99 99 Oximetry 10/23/20 10/23/20 10/23/20 08:15 08:30 08:45 Temperature Pulse Rate 87 93 H 87 Pulse Rate [ From Monitor] Respiratory 30 H 30 H 30 H Rate Blood Pressure 124/64 123/67 133/64 O2 Sat by Pulse 99 99 98 Oximetry 10/23/20 10/23/20 10/23/20 09:00 09:11 09:15 Temperature Pulse Rate 92 H 81 82 Pulse Rate [ From Monitor] Respiratory 30 H 30 H Rate Blood Pressure 123/67 120/69 129/66 O2 Sat by Pulse 99 99 99 Oximetry 10/23/20 10/23/20 10/23/20 09:30 09:45 10:00 Temperature Pulse Rate 80 84 87 Pulse Rate [ From Monitor] Respiratory 30 H 30 H 30 H Rate Blood Pressure 133/71 141/63 141/63 O2 Sat by Pulse 99 99 98 Oximetry 10/23/20 10/23/20 10/23/20 10:16 10:30 10:46 Temperature Pulse Rate 93 H 81 92 H Pulse Rate [ From Monitor] Respiratory 30 H 26 H 30 H Rate Blood Pressure 107/62 139/114 108/57 O2 Sat by Pulse 99 99 99 Oximetry 10/23/20 10/23/20 10/23/20 11:00 12:00 12:26 Temperature 97.6 F Pulse Rate 82 79 Pulse Rate [ From Monitor] Respiratory 30 H Rate Blood Pressure 108/57 122/62 O2 Sat by Pulse 99 99 Oximetry - General Appearance General appearance: intubated EENT: ATNC Neck: no JVD Respiratory: Present: Decreased Breath Sounds, Other (intubated) Cardiology: S1S2 Gastrointestinal: normoactive bowel sounds Integumentary: warm and dry Neurologic: other (sedated) Musculoskeletal: joint swelling - Lab 10/23/20 05:35 10/23/20 05:35 Most recent lab results ABG pH 7.439 (7.320-7.450) 10/23/20 04:00 ABG O2 Saturation 98.3 (0-100) 10/23/20 04:00 Calcium 8.4 mg/dL (8.4-10.2) 10/23/20 05:35 Phosphorus 2.80 mg/dL (2.5-4.5) 10/23/20 05:35 Magnesium 2.10 mg/dL (1.7-2.3) 10/23/20 05:35 Urine Creatinine 144.2 mg/dL (0.1-20.0) H 10/14/20 Unknown Urine Sodium 10 mmol/L 10/14/20 Unknown Urine Total Protein 97 mg/dL (5-11.8) H 10/14/20 Unknown Medications & Allergies - Medications Allergies/Adverse Reactions: Allergies No Known Allergies Allergy (Unverified 10/03/20 12:27) Home Medications: Home Medications Medication Instructions Recorded Confirmed Last Taken Type Unobtainable 10/10/20 10/10/20 Unknown History Active Medications: Generic Name Dose Route Start Last Admin Trade Name Freq PRN Reason Stop Dose Admin Acetaminophen 650 mg 10/03/20 02:10 10/06/20 15:28 Acetaminophen 325 Mg Tab PO 650 mg Q4H PRN Administration Pain MILD(1-3)/Fever >100.5/ROMERO Al Hydrox/Mg Hydrox/Simethicone 30 ml 10/03/20 02:10 Alum-Mag Hydroxide-Simethicone 158-196-48lc/5ml Oral Liqd 30 Ml PO Q4H PRN Indigestion Lipase/Protease/Amylase 1 each 10/03/20 16:51 Lipase 10,500/Protease 25,000/Amylase 43,750 (Units) Dr Reis FEEDTUBE PRN PRN For Clogged Feeding Tube Dextrose 50 ml 10/16/20 12:42 10/21/20 17:39 Dextrose 50% In Water (25gm) 50 Ml Syringe IV 50 ml Q30MIN PRN Administration Hypoglycemia Protocol Fentanyl 50 mcg 10/22/20 10:00 Fentanyl 100 Mcg/2 Ml Inj IV Q4HR PRN Pain , Severe (7-10) Ferrous Sulfate 308 mg 10/16/20 10:00 10/23/20 09:45 Ferrous Sulfate 308 Mg (62mg Elemental Iron) / 7 Ml Elixir FEEDTUBE 308 mg DAILY JOSE Administration Folic Acid 1 mg 10/03/20 10:00 10/23/20 09:45 Folic Acid 1 Mg Tab PO 1 mg QDAY JOSE Administration Hydrocortisone Sodium Succinate 100 mg 10/19/20 18:00 10/23/20 09:49 Hydrocortisone Sod Succ 100 Mg/2 Ml Vial IV 100 mg Q8H JOSE Administration Levetiracetam 250 mg/ Dextrose 102.5 mls @ 400 mls/hr 10/10/20 22:00 10/23/20 09:46 IV 400 mls/hr Q12HR JOSE Administration Vasopressin 20 unit/ Sodium 101 mls @ 9.09 mls/hr 10/16/20 13:00 10/23/20 04:09 Chloride IV 0.03 units/min TITR JOSE 9.09 mls/hr Administration Protocol 0.03 UNITS/MIN Phenylephrine HCl 100 mg/ 100 mls @ 3 mls/hr 10/16/20 18:00 10/20/20 11:50 Sodium Chloride IV 0 mcg/min TITR JOSE 0 mls/hr Titration Protocol 50 MCG/MIN NORepinephrine/NS 8 MG-250 ML 8 mg in 250 mls @ 3.75 mls/hr 10/16/20 19:00 10/21/20 16:56 Norepinephrine/Ns 8 Mg-250 Ml (Double Conc) IV 0 mcg/min TITRATE JOSE 0 mls/hr Titration Protocol 2 MCG/MIN Dobutamine HCl/Dextrose 500 mg in 250 mls @ 6.908 mls/hr 10/16/20 19:00 10/22/20 15:00 Dobutrex Drip 500mg/D5w 250ml IV 2.5 mcg/kg/min DIRECT JOSE 6.908 mls/hr Administration Protocol 2.5 MCG/KG/MIN Epinephrine 8 mg/ Sodium 250 mls @ 0 mls/hr 10/16/20 23:45 10/17/20 11:33 Chloride IV 0 mls/hr TITR JOSE Infusion Furosemide 100 mg/ Sodium 100 mls @ 5 mls/hr 10/21/20 08:00 10/23/20 02:59 Chloride IV 5 mls/hr TITR JOSE Administration As Directed Magnesium Hydroxide 30 ml 10/03/20 02:10 Magnesium Hydroxide (Mom) Oral Liqd Udc PO Q4H PRN Constipation Metoclopramide HCl 5 mg 10/17/20 09:00 Metoclopramide 10 Mg/2 Ml Inj IV Q6H PRN Nausea And Vomiting Ondansetron HCl 4 mg 10/03/20 02:10 10/07/20 23:19 Ondansetron 4 Mg/2 Ml Inj IV 4 mg Q8H PRN Administration Nausea And Vomiting Pantoprazole Sodium 40 mg 10/04/20 15:00 10/23/20 09:45 Pantoprazole 40 Mg Inj IV 40 mg QDAY JOSE Administration Promethazine HCl 25 mg 10/03/20 02:10 Promethazine 25 Mg Rect Supp [place] Q6H PRN N/V IF NPO AND NO IV ACCESS Senna 8.6 mg 10/03/20 02:10 Sennosides 8.6 Mg Tab PO Q12HR PRN Constipation Simple Syrup 15 ml 10/03/20 16:51 10/19/20 02:08 Simple Syrup 15 Ml FEEDTUBE 15 ml PRN PRN Administration Hypoglycemia Simple Syrup 30 ml 10/03/20 16:51 10/16/20 22:02 Simple Syrup 15 Ml FEEDTUBE 30 ml PRN PRN Administration Hypoglycemia Sodium Bicarbonate 325 mg 10/03/20 16:51 Sodium Bicarbonate 325 Mg Tab FEEDTUBE PRN PRN For Clogged Feeding Tube
--- NOTE | 2020-10-23 13:53 | Progress Note ---
Assessment and Plan Paroxysmal Afib w/RVR Tachycardia HFrEF * EKG 10/20/2020- sinus rhythm 80s * EKG 10/18/2020 shows Afib 98s with paired ventricular premature complexes * Given pt's hemodynamic instability (currently requiring multiple vasopressors), unable to start BB or non-dihydropyridine CCB * Converted back to AFib but rate controlled. Will hold amio drip for now * Would not recommend anticoagulation currently given low AF burden and anemia/thrombocytopenia * Echo 10/04/2020-EF 25 to 30%, right ventricle severely dilated and moderately hypokinetic, left atrium is mildly dilated, right atrium severely dilated, moderate to severe tricuspid regurgitation, moderate mitral regurgitation tricuspid annulus dilated. Significant narrowing in bilateral posterior cerebral arteries Left-sided hemiparesis with aphasia Atherosclerotic cerebrovascular disease * Neurology following BETSY * Nephrology following Acute hypoxic repiratory failure * Pulmonology following Patient converted back to afib but rate controlled. Patient seen in conjunction with Dr. Rebolledo who agrees with this plan of care. Will continue to follow - Patient Problems (1) Afib Current Visit: Yes Status: Acute (2) Acute encephalopathy Current Visit: Yes Status: Acute (3) Atherosclerotic cerebrovascular disease Current Visit: Yes Status: Acute (4) Hypoglycemia Current Visit: Yes Status: Acute (5) Left-sided weakness Current Visit: Yes Status: Acute (6) Microcytic anemia Current Visit: Yes Status: Acute (7) Pulmonary infiltrate in right lung on CXR Current Visit: Yes Status: Acute (8) HFrEF (heart failure with reduced ejection fraction) Current Visit: Yes Status: Acute (9) Dilated cardiomyopathy Current Visit: Yes Status: Acute Subjective Date of service: 10/23/20 Principal diagnosis: Ac hypoxemic resp failure; Pneumonia; BETSY; Ac. en cephalopathy Interval history: Patient intubated Patient afib 80s on monitor Objective Last Vital Signs Temp 97.6 F 10/23/20 12:00 Pulse 90 10/23/20 13:00 Resp 20 10/23/20 13:00 BP 106/56 10/23/20 13:00 Pulse Ox 100 10/23/20 13:00 - Physical Examination General: Other (intubated) HEENT: Positive: Mucus Membranes Dry Neck: Positive: trachea midline Cardiac: Positive: irregularly irregular Lungs: Positive: Ventilated Respirations Neuro: Positive: Other (intubated) Abdomen: Positive: Soft Skin: Negative: Rash Extremities: Present: upper extr. pulses, lower extr. pulses - Labs and Meds CBC 10/23/20 Range/Units 05:35 WBC 7.3 (4.5-11.0) K/mm3 RBC 2.94 L (3.65-5.03) M/mm3 Hgb 7.3 L (11.8-15.2) gm/dl Hct 21.3 L (35.5-45.6) % Plt Count 56 L D (140-440) K/mm3 Comprehensive Metabolic Panel 10/22/20 10/23/20 Range/Units 20:00 05:35 Sodium 126 L 128 L (137-145) mmol/L Potassium 3.8 D 3.8 (3.6-5.0) mmol/L Chloride 95.8 L 96.7 L (98-107) mmol/L Carbon Dioxide 21 L 24 (22-30) mmol/L BUN 50 H 56 H (9-20) mg/dL Creatinine 3.4 H 3.4 H (0.8-1.3) mg/dL Glucose 82 90 (75-100) mg/dL Calcium 7.9 L 8.4 (8.4-10.2) mg/dL - Imaging and Cardiology EKG: report reviewed, image reviewed Echo: report reviewed - Telemetry EKG Rhythm: Atrial Fibrillation - EKG Supraventricular dysrhythmia: atrial fibrillation - Allied health notes Allied health notes reviewed: RT
--- NOTE | 2020-10-23 14:32 | Progress Note ---
Assessment and Plan Acute hypoxemic respiratory failure Bilateral pneumonia Bilateral pleural effusions Bilateral pulmonary edema Acute kidney injury Acute encephalopathy Severe protein calorie malnutrition Oropharyngeal dysphagia Anemia that is microcytic Oropharyngeal dysphagia Thrombocytopenia Hyponatremia -Stop Furosemide infusion and monitor hemodynamics, renal function, urine output and electrolyte profile Has some increase in Creatinine - continue Dobutamine till off vasopressors - titrate vasopressor to keep MAP > 65 mmHg- currently on fixed dose Vasopressin - VAP bundle addressed, aspiration precautions (HOB > 40 degrees) -Titrate supplemental oxygen to keep SpO2 88-90% - SAT and SBT daily. - continue glycemic control for target BG 140-180 mg while critically ill; avoid hypoglycemia - bronchodilators with pulmonary hygiene per RT - Antibiotics per ID, de-escalate based on culture data and clinical response - avoid nephrotoxins, renally dose all medications Renal managing hyponatremia - prn analgesia per pain score - Maintenance of sleep-wake cycle, avoid delirium - supportive transfusions for serum Hgb < 7.0g/dl Platelet transfusions for platelet <20K -Enteric nutritional support - Stress ulcer prophylaxis - continue mobility , off loading, frequent turning per facility protocols for pressure ulcer prevention - Monitor hemodynamics closely - continue other care per attending / other consultants Based on previous conversation with the team, family want aggressive care. The patient is on minimal vent support and may benefit from early tracheostomy and PEG to facilitate weaning from MVS COVID SPECIFIC INTERVENTIONS - COVID-19 test negative CONDITION: CRITICAL PROGNOSIS: GUARDED CODE STATUS: FULL CODE The high probability of a clinically significant, sudden or life-threatening deterioration of the [respiratory, cardiovascular, & neurologic] system(s) required my full and direct attention, intervention and personal management. The aggregate critical care time was [33] minutes without overlap. Time includes spent on; [x] Data Review and interpretation [x] Patient assessment and monitoring of vital signs [x] Documentation [x] Medication orders and management Subjective Date of service: 10/23/20 Principal diagnosis: Ac hypoxemic resp failure; Pneumonia; BETSY; Ac. encephalopathy Interval history: Patient is seen today for: Acute hypoxemic respiratory failure; Pneumonia; Pleural effusions; BETSY; Acute encephalopathy; Severe protein calorie malnutrition Seen and examined at bedside; 24hour events reviewed; nursing and respiratory care staff consulted; no adverse overnight events reported to me; resting in bed; remains on MVS- low settings; off all vasopressors, fixed dose Vasopressin and Dobutamine( fixed dose). Remains off sedation, tolerates some SBT, but requires Psupp of at least 12-14 to generate tidal volumes >300 Objective Vital Signs - 12hr 10/23/20 10/23/20 10/23/20 02:45 03:00 03:02 Temperature 95.9 F L Pulse Rate 80 76 Pulse Rate [ From Monitor] Respiratory 27 H 30 H Rate Blood Pressure 117/56 117/56 O2 Sat by Pulse 100 100 Oximetry 10/23/20 10/23/20 10/23/20 03:15 03:30 03:45 Temperature Pulse Rate 86 85 84 Pulse Rate [ From Monitor] Respiratory 30 H 30 H 30 H Rate Blood Pressure 120/68 120/68 98/59 O2 Sat by Pulse 100 100 100 Oximetry 10/23/20 10/23/20 10/23/20 03:55 04:00 04:15 Temperature Pulse Rate 78 92 H 86 Pulse Rate [ 84 From Monitor] Respiratory 30 H 30 H Rate Blood Pressure 98/59 98/59 118/61 O2 Sat by Pulse 100 100 100 Oximetry 10/23/20 10/23/20 10/23/20 04:30 04:45 05:00 Temperature Pulse Rate 80 87 88 Pulse Rate [ From Monitor] Respiratory 30 H 30 H 30 H Rate Blood Pressure 110/58 111/62 100/55 O2 Sat by Pulse 100 100 99 Oximetry 10/23/20 10/23/20 10/23/20 05:15 05:30 05:45 Temperature Pulse Rate 92 H 93 H 79 Pulse Rate [ From Monitor] Respiratory 30 H 30 H 30 H Rate Blood Pressure 102/60 101/57 97/62 O2 Sat by Pulse 100 100 99 Oximetry 10/23/20 10/23/20 10/23/20 06:00 06:15 06:30 Temperature Pulse Rate 80 88 101 H Pulse Rate [ From Monitor] Respiratory 30 H 14 30 H Rate Blood Pressure 99/59 106/60 106/60 O2 Sat by Pulse 100 99 98 Oximetry 10/23/20 10/23/20 10/23/20 06:45 07:00 07:16 Temperature Pulse Rate 90 88 84 Pulse Rate [ From Monitor] Respiratory 30 H 30 H 30 H Rate Blood Pressure 98/63 111/69 114/63 O2 Sat by Pulse 98 99 100 Oximetry 10/23/20 10/23/20 10/23/20 07:30 07:45 08:00 Temperature 97.7 F Pulse Rate 94 H 87 87 Pulse Rate [ 87 From Monitor] Respiratory 30 H 30 H 30 H Rate Blood Pressure 121/58 120/66 127/56 O2 Sat by Pulse 99 99 99 Oximetry 10/23/20 10/23/20 10/23/20 08:15 08:30 08:45 Temperature Pulse Rate 87 93 H 87 Pulse Rate [ From Monitor] Respiratory 30 H 30 H 30 H Rate Blood Pressure 124/64 123/67 133/64 O2 Sat by Pulse 99 99 98 Oximetry 10/23/20 10/23/20 10/23/20 09:00 09:11 09:15 Temperature Pulse Rate 92 H 81 82 Pulse Rate [ From Monitor] Respiratory 30 H 30 H Rate Blood Pressure 123/67 120/69 129/66 O2 Sat by Pulse 99 99 99 Oximetry 10/23/20 10/23/20 10/23/20 09:30 09:45 10:00 Temperature Pulse Rate 80 84 87 Pulse Rate [ From Monitor] Respiratory 30 H 30 H 30 H Rate Blood Pressure 133/71 141/63 141/63 O2 Sat by Pulse 99 99 98 Oximetry 10/23/20 10/23/20 10/23/20 10:16 10:30 10:46 Temperature Pulse Rate 93 H 81 92 H Pulse Rate [ From Monitor] Respiratory 30 H 26 H 30 H Rate Blood Pressure 107/62 139/114 108/57 O2 Sat by Pulse 99 99 99 Oximetry 10/23/20 10/23/20 10/23/20 11:00 11:15 11:30 Temperature Pulse Rate 82 98 H 94 H Pulse Rate [ From Monitor] Respiratory 30 H 31 H 30 H Rate Blood Pressure 108/57 101/59 112/61 O2 Sat by Pulse 99 99 98 Oximetry 10/23/20 10/23/20 10/23/20 11:46 12:00 12:15 Temperature 97.6 F Pulse Rate 88 85 80 Pulse Rate [ 83 From Monitor] Respiratory 22 20 25 H Rate Blood Pressure 104/54 111/60 122/62 O2 Sat by Pulse 99 98 99 Oximetry 10/23/20 10/23/20 10/23/20 12:26 12:30 12:45 Temperature Pulse Rate 79 91 H 79 Pulse Rate [ From Monitor] Respiratory 30 H 29 H Rate Blood Pressure 122/62 130/61 112/59 O2 Sat by Pulse 99 98 99 Oximetry 10/23/20 10/23/20 10/23/20 13:00 13:15 13:30 Temperature Pulse Rate 90 84 90 Pulse Rate [ From Monitor] Respiratory 20 17 27 H Rate Blood Pressure 106/56 105/64 117/54 O2 Sat by Pulse 100 99 100 Oximetry 10/23/20 10/23/20 13:45 14:00 Temperature Pulse Rate 88 86 Pulse Rate [ From Monitor] Respiratory 25 H 30 H Rate Blood Pressure 125/65 125/65 O2 Sat by Pulse 100 100 Oximetry Constitutional: no acute distress, appears uncomfortable, other (elderly and chronically ill looking male with mildly increased respiratory effort at rest on MVS) Eyes: non-icteric ENT: oropharynx dry, other (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) Neck: supple, no lymphadenopathy, no JVD Effort: mildly labored Ascultation: Bilateral: diminished breath sounds, rhonchi Percussion: Bilateral: not dull Cardiovascular: irregular rhythm (irregularly irregular), other (S1,S2) Gastrointestinal: normoactive bowel sounds Integumentary: normal Extremities: no cyanosis, pulses normal, no ischemia or petechiae, edema (1+) Neurologic: pupils equal and round, unable to assess Psychiatric: other (unable to assess re: AMS) CBC and BMP: 10/24/20 05:27 10/24/20 05:27 ABG, PT/INR, D-dimer: ABG ABG pH 7.439 (7.320-7.450) 10/23/20 04:00 POC ABG pCO2 29.0 mmHg (32.0-48.0) L 10/23/20 04:00 POC ABG pO2 104.6 mmHg (83-108) 10/23/20 04:00 POC ABG HCO3 19.2 10/23/20 04:00 ABG O2 Saturation 98.3 (0-100) 10/23/20 04:00 PT/INR, D-dimer PT 27.0 Sec. (12.2-14.9) H 10/21/20 Unknown INR 2.44 (0.87-1.13) H 10/21/20 Unknown D-Dimer 1992.93 ng/mlDDU (0-234) H 10/21/20 Unknown Abnormal lab findings: Abnormal Labs 10/02/20 10/02/20 10/02/20 23:17 23:17 23:17 WBC RBC 3.31 L Hgb 6.7 L Hct 21.8 L MCV 66 L MCH 20 L MCHC 31 L RDW 31.7 H Plt Count Reeves % (Auto) Reeves # (Auto) Seg Neutrophils % Seg Neuts % (Manual) 79.0 H Lymphocytes % (Manual) 11.0 L Monocytes % (Manual) 10.0 H Basophils % (Manual) Nucleated RBC % Seg Neutrophils # Seg Neutrophils # Man Lymphocytes # (Manual) 0.9 L Monocytes # (Manual) Basophils # (Manual) PT 20.8 H INR 1.74 H APTT 57.6 H Fibrinogen D-Dimer ABG pH POC ABG pCO2 POC ABG pO2 ABG Hemoglobin ABG Oxyhemoglobin ABG Sodium ABG Potassium ABG Chloride ABG Glucose Sodium Potassium Chloride Carbon Dioxide BUN Creatinine Glucose 42 L POC Glucose Lactic Acid Calcium Magnesium Iron Total Bilirubin Direct Bilirubin AST ALT Alkaline Phosphatase Ammonia CK-MB (CK-2) 7.5 H CK-MB (CK-2) Rel Index 8.5 H Total Protein Albumin 2.9 L Arterial Blood Glucose Arterial Blood Ionized Calcium Urine Creatinine Urine Total Protein Salicylates Acetaminophen Crossmatch 10/02/20 10/02/20 10/02/20 23:17 23:17 23:17 WBC RBC Hgb Hct MCV MCH MCHC RDW Plt Count Reeves % (Auto) Reeves # (Auto) Seg Neutrophils % Seg Neuts % (Manual) Lymphocytes % (Manual) Monocytes % (Manual) Basophils % (Manual) Nucleated RBC % Seg Neutrophils # Seg Neutrophils # Man Lymphocytes # (Manual) Monocytes # (Manual) Basophils # (Manual) PT INR APTT Fibrinogen D-Dimer ABG pH POC ABG pCO2 POC ABG pO2 ABG Hemoglobin ABG Oxyhemoglobin ABG Sodium ABG Potassium ABG Chloride ABG Glucose Sodium Potassium Chloride Carbon Dioxide BUN Creatinine Glucose POC Glucose Lactic Acid 2.20 H* Calcium Magnesium Iron Total Bilirubin Direct Bilirubin AST ALT Alkaline Phosphatase Ammonia 22.0 L CK-MB (CK-2) CK-MB (CK-2) Rel Index Total Protein Albumin Arterial Blood Glucose Arterial Blood Ionized Calcium Urine Creatinine Urine Total Protein Salicylates < 0.3 L Acetaminophen Crossmatch 10/02/20 10/03/20 10/03/20 23:17 05:57 05:57 WBC RBC 2.66 L Hgb 5.3 L* Hct 17.8 L* MCV 67 L MCH 20 L MCHC 30 L RDW 32.1 H Plt Count Reeves % (Auto) Reeves # (Auto) Seg Neutrophils % Seg Neuts % (Manual) Lymphocytes % (Manual) 2.0 L Monocytes % (Manual) Basophils % (Manual) Nucleated RBC % 1.0 H Seg Neutrophils # Seg Neutrophils # Man 8.6 H Lymphocytes # (Manual) 0.2 L Monocytes # (Manual) Basophils # (Manual) PT INR APTT Fibrinogen D-Dimer ABG pH POC ABG pCO2 POC ABG pO2 ABG Hemoglobin ABG Oxyhemoglobin ABG Sodium ABG Potassium ABG Chloride ABG Glucose Sodium Potassium Chloride Carbon Dioxide BUN Creatinine Glucose POC Glucose Lactic Acid Calcium Magnesium Iron Total Bilirubin Direct Bilirubin AST ALT Alkaline Phosphatase Ammonia CK-MB (CK-2) CK-MB (CK-2) Rel Index Total Protein Albumin Arterial Blood Glucose Arterial Blood Ionized Calcium Urine Creatinine Urine Total Protein Salicylates Acetaminophen 5.0 L Crossmatch See Detail 10/03/20 10/03/20 10/03/20 05:57 05:57 06:00 WBC RBC Hgb Hct MCV MCH MCHC RDW Plt Count Reeves % (Auto) Reeves # (Auto) Seg Neutrophils % Seg Neuts % (Manual) Lymphocytes % (Manual) Monocytes % (Manual) Basophils % (Manual) Nucleated RBC % Seg Neutrophils # Seg Neutrophils # Man Lymphocytes # (Manual) Monocytes # (Manual) Basophils # (Manual) PT INR APTT Fibrinogen D-Dimer ABG pH POC ABG pCO2 POC ABG pO2 ABG Hemoglobin ABG Oxyhemoglobin ABG Sodium ABG Potassium ABG Chloride ABG Glucose Sodium Potassium Chloride Carbon Dioxide BUN Creatinine Glucose 52 L POC Glucose 31 L Lactic Acid Calcium Magnesium Iron 42 L Total Bilirubin Direct Bilirubin AST ALT Alkaline Phosphatase Ammonia CK-MB (CK-2) CK-MB (CK-2) Rel Index Total Protein 5.8 L Albumin 3.1 L Arterial Blood Glucose Arterial Blood Ionized Calcium Urine Creatinine Urine Total Protein Salicylates Acetaminophen Crossmatch 10/03/20 10/03/20 10/03/20 07:34 09:43 10:57 WBC RBC Hgb Hct MCV MCH MCHC RDW Plt Count Reeves % (Auto) Reeves # (Auto) Seg Neutrophils % Seg Neuts % (Manual) Lymphocytes % (Manual) Monocytes % (Manual) Basophils % (Manual) Nucleated RBC % Seg Neutrophils # Seg Neutrophils # Man Lymphocytes # (Manual) Monocytes # (Manual) Basophils # (Manual) PT INR APTT Fibrinogen D-Dimer ABG pH POC ABG pCO2 POC ABG pO2 ABG Hemoglobin ABG Oxyhemoglobin ABG Sodium ABG Potassium ABG Chloride ABG Glucose Sodium Potassium Chloride Carbon Dioxide BUN Creatinine Glucose POC Glucose 59 L 41 L 31 L Lactic Acid Calcium Magnesium Iron Total Bilirubin Direct Bilirubin AST ALT Alkaline Phosphatase Ammonia CK-MB (CK-2) CK-MB (CK-2) Rel Index Total Protein Albumin Arterial Blood Glucose Arterial Blood Ionized Calcium Urine Creatinine Urine Total Protein Salicylates Acetaminophen Crossmatch 10/03/20 10/03/20 10/03/20 11:21 12:00 12:14 WBC RBC Hgb Hct MCV MCH MCHC RDW Plt Count Reeves % (Auto) Reeves # (Auto) Seg Neutrophils % Seg Neuts % (Manual) Lymphocytes % (Manual) Monocytes % (Manual) Basophils % (Manual) Nucleated RBC % Seg Neutrophils # Seg Neutrophils # Man Lymphocytes # (Manual) Monocytes # (Manual) Basophils # (Manual) PT INR APTT Fibrinogen D-Dimer ABG pH POC ABG pCO2 POC ABG pO2 ABG Hemoglobin ABG Oxyhemoglobin ABG Sodium ABG Potassium ABG Chloride ABG Glucose Sodium Potassium Chloride Carbon Dioxide BUN Creatinine Glucose POC Glucose 62 L 26 L 140 H Lactic Acid Calcium Magnesium Iron Total Bilirubin Direct Bilirubin AST ALT Alkaline Phosphatase Ammonia CK-MB (CK-2) CK-MB (CK-2) Rel Index Total Protein Albumin Arterial Blood Glucose Arterial Blood Ionized Calcium Urine Creatinine Urine Total Protein Salicylates Acetaminophen Crossmatch 10/03/20 10/03/20 10/03/20 13:33 14:19 14:59 WBC RBC Hgb Hct MCV MCH MCHC RDW Plt Count Reeves % (Auto) Reeves # (Auto) Seg Neutrophils % Seg Neuts % (Manual) Lymphocytes % (Manual) Monocytes % (Manual) Basophils % (Manual) Nucleated RBC % Seg Neutrophils # Seg Neutrophils # Man Lymphocytes # (Manual) Monocytes # (Manual) Basophils # (Manual) PT INR APTT Fibrinogen D-Dimer ABG pH POC ABG pCO2 POC ABG pO2 ABG Hemoglobin ABG Oxyhemoglobin ABG Sodium ABG Potassium ABG Chloride ABG Glucose Sodium Potassium Chloride Carbon Dioxide BUN Creatinine Glucose POC Glucose 24 L 59 L 40 L Lactic Acid Calcium Magnesium Iron Total Bilirubin Direct Bilirubin AST ALT Alkaline Phosphatase Ammonia CK-MB (CK-2) CK-MB (CK-2) Rel Index Total Protein Albumin Arterial Blood Glucose Arterial Blood Ionized Calcium Urine Creatinine Urine Total Protein Salicylates Acetaminophen Crossmatch 10/03/20 10/03/20 10/03/20 15:26 15:57 16:35 WBC RBC Hgb Hct MCV MCH MCHC RDW Plt Count Reeves % (Auto) Reeves # (Auto) Seg Neutrophils % Seg Neuts % (Manual) Lymphocytes % (Manual) Monocytes % (Manual) Basophils % (Manual) Nucleated RBC % Seg Neutrophils # Seg Neutrophils # Man Lymphocytes # (Manual) Monocytes # (Manual) Basophils # (Manual) PT INR APTT Fibrinogen D-Dimer ABG pH POC ABG pCO2 POC ABG pO2 ABG Hemoglobin ABG Oxyhemoglobin ABG Sodium ABG Potassium ABG Chloride ABG Glucose Sodium Potassium Chloride Carbon Dioxide BUN Creatinine Glucose POC Glucose 54 L 45 L 42 L Lactic Acid Calcium Magnesium Iron Total Bilirubin Direct Bilirubin AST ALT Alkaline Phosphatase Ammonia CK-MB (CK-2) CK-MB (CK-2) Rel Index Total Protein Albumin Arterial Blood Glucose Arterial Blood Ionized Calcium Urine Creatinine Urine Total Protein Salicylates Acetaminophen Crossmatch 10/03/20 10/03/20 10/03/20 17:16 18:37 19:56 WBC RBC Hgb Hct MCV MCH MCHC RDW Plt Count Reeves % (Auto) Reeves # (Auto) Seg Neutrophils % Seg Neuts % (Manual) Lymphocytes % (Manual) Monocytes % (Manual) Basophils % (Manual) Nucleated RBC % Seg Neutrophils # Seg Neutrophils # Man Lymphocytes # (Manual) Monocytes # (Manual) Basophils # (Manual) PT INR APTT Fibrinogen D-Dimer ABG pH POC ABG pCO2 POC ABG pO2 ABG Hemoglobin ABG Oxyhemoglobin ABG Sodium ABG Potassium ABG Chloride ABG Glucose Sodium Potassium Chloride Carbon Dioxide BUN Creatinine Glucose POC Glucose 41 L 46 L 57 L Lactic Acid Calcium Magnesium Iron Total Bilirubin Direct Bilirubin AST ALT Alkaline Phosphatase Ammonia CK-MB (CK-2) CK-MB (CK-2) Rel Index Total Protein Albumin Arterial Blood Glucose Arterial Blood Ionized Calcium Urine Creatinine Urine Total Protein Salicylates Acetaminophen Crossmatch 10/03/20 10/04/20 10/04/20 21:32 01:04 01:11 WBC RBC Hgb 9.6 L D Hct 28.3 L D MCV MCH MCHC RDW Plt Count Reeves % (Auto) Reeves # (Auto) Seg Neutrophils % Seg Neuts % (Manual) Lymphocytes % (Manual) Monocytes % (Manual) Basophils % (Manual) Nucleated RBC % Seg Neutrophils # Seg Neutrophils # Man Lymphocytes # (Manual) Monocytes # (Manual) Basophils # (Manual) PT INR APTT Fibrinogen D-Dimer ABG pH POC ABG pCO2 POC ABG pO2 ABG Hemoglobin ABG Oxyhemoglobin ABG Sodium ABG Potassium ABG Chloride ABG Glucose Sodium Potassium Chloride Carbon Dioxide BUN Creatinine Glucose POC Glucose 65 L 51 L Lactic Acid Calcium Magnesium Iron Total Bilirubin Direct Bilirubin AST ALT Alkaline Phosphatase Ammonia CK-MB (CK-2) CK-MB (CK-2) Rel Index Total Protein Albumin Arterial Blood Glucose Arterial Blood Ionized Calcium Urine Creatinine Urine Total Protein Salicylates Acetaminophen Crossmatch 10/04/20 10/04/20 10/04/20 05:59 05:59 15:10 WBC 13.4 H RBC Hgb 9.9 L 10.1 L Hct 32.0 L 31.8 L MCV 76 L MCH 24 L MCHC 31 L RDW 31.3 H Plt Count Reeves % (Auto) Reeves # (Auto) Seg Neutrophils % Seg Neuts % (Manual) 86.0 H Lymphocytes % (Manual) 6.0 L Monocytes % (Manual) 8.0 H Basophils % (Manual) Nucleated RBC % 2.0 H Seg Neutrophils # Seg Neutrophils # Man 11.5 H Lymphocytes # (Manual) 0.8 L Monocytes # (Manual) 1.1 H Basophils # (Manual) PT INR APTT Fibrinogen D-Dimer ABG pH POC ABG pCO2 POC ABG pO2 ABG Hemoglobin ABG Oxyhemoglobin ABG Sodium ABG Potassium ABG Chloride ABG Glucose Sodium 136 L Potassium 3.5 L Chloride Carbon Dioxide 19 L D BUN Creatinine Glucose POC Glucose Lactic Acid Calcium Magnesium Iron Total Bilirubin Direct Bilirubin AST ALT Alkaline Phosphatase Ammonia CK-MB (CK-2) CK-MB (CK-2) Rel Index Total Protein Albumin 2.6 L Arterial Blood Glucose Arterial Blood Ionized Calcium Urine Creatinine Urine Total Protein Salicylates Acetaminophen Crossmatch 10/04/20 10/04/20 10/05/20 16:28 22:33 04:43 WBC RBC Hgb 10.5 L Hct 32.5 L MCV MCH MCHC RDW Plt Count Reeves % (Auto) Reeves # (Auto) Seg Neutrophils % Seg Neuts % (Manual) Lymphocytes % (Manual) Monocytes % (Manual) Basophils % (Manual) Nucleated RBC % Seg Neutrophils # Seg Neutrophils # Man Lymphocytes # (Manual) Monocytes # (Manual) Basophils # (Manual) PT INR APTT Fibrinogen D-Dimer ABG pH POC ABG pCO2 POC ABG pO2 ABG Hemoglobin ABG Oxyhemoglobin ABG Sodium ABG Potassium ABG Chloride ABG Glucose Sodium Potassium Chloride Carbon Dioxide BUN Creatinine Glucose POC Glucose 66 L 113 H Lactic Acid Calcium Magnesium Iron Total Bilirubin Direct Bilirubin AST ALT Alkaline Phosphatase Ammonia CK-MB (CK-2) CK-MB (CK-2) Rel Index Total Protein Albumin Arterial Blood Glucose Arterial Blood Ionized Calcium Urine Creatinine Urine Total Protein Salicylates Acetaminophen Crossmatch 10/05/20 10/05/20 10/05/20 05:00 09:42 11:57 WBC RBC Hgb 9.8 L Hct 30.5 L MCV 74 L MCH 24 L MCHC RDW 31.6 H Plt Count Reeves % (Auto) Reeves # (Auto) Seg Neutrophils % Seg Neuts % (Manual) Lymphocytes % (Manual) Monocytes % (Manual) Basophils % (Manual) Nucleated RBC % Seg Neutrophils # Seg Neutrophils # Man Lymphocytes # (Manual) Monocytes # (Manual) Basophils # (Manual) PT INR APTT Fibrinogen D-Dimer ABG pH POC ABG pCO2 POC ABG pO2 ABG Hemoglobin ABG Oxyhemoglobin ABG Sodium ABG Potassium ABG Chloride ABG Glucose Sodium 132 L Potassium 3.5 L Chloride Carbon Dioxide 19 L BUN Creatinine 0.7 L Glucose POC Glucose 129 H Lactic Acid Calcium Magnesium Iron Total Bilirubin Direct Bilirubin AST ALT Alkaline Phosphatase Ammonia CK-MB (CK-2) CK-MB (CK-2) Rel Index Total Protein Albumin Arterial Blood Glucose Arterial Blood Ionized Calcium Urine Creatinine Urine Total Protein Salicylates Acetaminophen Crossmatch 10/05/20 10/05/20 10/06/20 16:47 21:51 05:07 WBC RBC Hgb 9.4 L Hct 30.1 L MCV 76 L MCH 24 L MCHC 31 L RDW 31.1 H Plt Count Reeves % (Auto) Reeves # (Auto) Seg Neutrophils % Seg Neuts % (Manual) Lymphocytes % (Manual) Monocytes % (Manual) Basophils % (Manual) Nucleated RBC % Seg Neutrophils # Seg Neutrophils # Man Lymphocytes # (Manual) Monocytes # (Manual) Basophils # (Manual) PT INR APTT Fibrinogen D-Dimer ABG pH POC ABG pCO2 POC ABG pO2 ABG Hemoglobin ABG Oxyhemoglobin ABG Sodium ABG Potassium ABG Chloride ABG Glucose Sodium Potassium Chloride Carbon Dioxide BUN Creatinine Glucose POC Glucose 132 H 115 H Lactic Acid Calcium Magnesium Iron Total Bilirubin Direct Bilirubin AST ALT Alkaline Phosphatase Ammonia CK-MB (CK-2) CK-MB (CK-2) Rel Index Total Protein Albumin Arterial Blood Glucose Arterial Blood Ionized Calcium Urine Creatinine Urine Total Protein Salicylates Acetaminophen Crossmatch 10/06/20 10/06/20 10/06/20 05:07 15:37 21:01 WBC RBC Hgb Hct MCV MCH MCHC RDW Plt Count Reeves % (Auto) Reeves # (Auto) Seg Neutrophils % Seg Neuts % (Manual) Lymphocytes % (Manual) Monocytes % (Manual) Basophils % (Manual) Nucleated RBC % Seg Neutrophils # Seg Neutrophils # Man Lymphocytes # (Manual) Monocytes # (Manual) Basophils # (Manual) PT INR APTT Fibrinogen D-Dimer ABG pH POC ABG pCO2 POC ABG pO2 ABG Hemoglobin ABG Oxyhemoglobin ABG Sodium ABG Potassium ABG Chloride ABG Glucose Sodium 133 L Potassium 3.5 L Chloride Carbon Dioxide 21 L BUN Creatinine 0.6 L Glucose 105 H POC Glucose 136 H 108 H Lactic Acid Calcium Magnesium Iron Total Bilirubin Direct Bilirubin AST ALT Alkaline Phosphatase Ammonia CK-MB (CK-2) CK-MB (CK-2) Rel Index Total Protein Albumin Arterial Blood Glucose Arterial Blood Ionized Calcium Urine Creatinine Urine Total Protein Salicylates Acetaminophen Crossmatch 10/07/20 10/07/20 10/07/20 04:52 04:52 06:07 WBC RBC Hgb 9.6 L Hct 29.4 L MCV 73 L MCH 24 L MCHC RDW 32.2 H Plt Count Reeves % (Auto) Reeves # (Auto) Seg Neutrophils % Seg Neuts % (Manual) Lymphocytes % (Manual) Monocytes % (Manual) Basophils % (Manual) Nucleated RBC % Seg Neutrophils # Seg Neutrophils # Man Lymphocytes # (Manual) Monocytes # (Manual) Basophils # (Manual) PT INR APTT Fibrinogen D-Dimer ABG pH POC ABG pCO2 POC ABG pO2 ABG Hemoglobin ABG Oxyhemoglobin ABG Sodium ABG Potassium ABG Chloride ABG Glucose Sodium 128 L Potassium Chloride Carbon Dioxide 20 L BUN Creatinine 0.7 L Glucose POC Glucose 110 H Lactic Acid Calcium Magnesium Iron Total Bilirubin Direct Bilirubin AST ALT Alkaline Phosphatase Ammonia CK-MB (CK-2) CK-MB (CK-2) Rel Index Total Protein Albumin Arterial Blood Glucose Arterial Blood Ionized Calcium Urine Creatinine Urine Total Protein Salicylates Acetaminophen Crossmatch 10/07/20 10/07/20 10/07/20 17:09 18:53 20:35 WBC RBC Hgb Hct MCV MCH MCHC RDW Plt Count Reeves % (Auto) Reeves # (Auto) Seg Neutrophils % Seg Neuts % (Manual) Lymphocytes % (Manual) Monocytes % (Manual) Basophils % (Manual) Nucleated RBC % Seg Neutrophils # Seg Neutrophils # Man Lymphocytes # (Manual) Monocytes # (Manual) Basophils # (Manual) PT INR APTT Fibrinogen D-Dimer ABG pH POC ABG pCO2 POC ABG pO2 ABG Hemoglobin ABG Oxyhemoglobin ABG Sodium ABG Potassium ABG Chloride ABG Glucose Sodium Potassium Chloride Carbon Dioxide BUN Creatinine Glucose POC Glucose 67 L 66 L 62 L Lactic Acid Calcium Magnesium Iron Total Bilirubin Direct Bilirubin AST ALT Alkaline Phosphatase Ammonia CK-MB (CK-2) CK-MB (CK-2) Rel Index Total Protein Albumin Arterial Blood Glucose Arterial Blood Ionized Calcium Urine Creatinine Urine Total Protein Salicylates Acetaminophen Crossmatch 10/07/20 10/08/20 10/08/20 21:55 05:00 05:00 WBC RBC Hgb 9.6 L Hct 29.4 L MCV 73 L MCH 24 L MCHC RDW 32.4 H Plt Count Reeves % (Auto) Reeves # (Auto) Seg Neutrophils % 80.6 H Seg Neuts % (Manual) 88.0 H Lymphocytes % (Manual) 9.0 L Monocytes % (Manual) Basophils % (Manual) Nucleated RBC % 5.0 H Seg Neutrophils # Seg Neutrophils # Man Lymphocytes # (Manual) 0.5 L Monocytes # (Manual) Basophils # (Manual) PT INR APTT Fibrinogen D-Dimer ABG pH POC ABG pCO2 POC ABG pO2 ABG Hemoglobin ABG Oxyhemoglobin ABG Sodium ABG Potassium ABG Chloride ABG Glucose Sodium 126 L Potassium Chloride 96.3 L Carbon Dioxide BUN Creatinine 0.7 L Glucose POC Glucose 132 H Lactic Acid Calcium Magnesium Iron Total Bilirubin Direct Bilirubin AST ALT Alkaline Phosphatase Ammonia CK-MB (CK-2) CK-MB (CK-2) Rel Index Total Protein Albumin Arterial Blood Glucose Arterial Blood Ionized Calcium Urine Creatinine Urine Total Protein Salicylates Acetaminophen Crossmatch 10/08/20 10/09/20 10/09/20 22:26 01:36 02:22 WBC RBC Hgb Hct MCV MCH MCHC RDW Plt Count Reeves % (Auto) Reeves # (Auto) Seg Neutrophils % Seg Neuts % (Manual) Lymphocytes % (Manual) Monocytes % (Manual) Basophils % (Manual) Nucleated RBC % Seg Neutrophils # Seg Neutrophils # Man Lymphocytes # (Manual) Monocytes # (Manual) Basophils # (Manual) PT INR APTT Fibrinogen D-Dimer ABG pH POC ABG pCO2 POC ABG pO2 ABG Hemoglobin ABG Oxyhemoglobin ABG Sodium ABG Potassium ABG Chloride ABG Glucose Sodium Potassium Chloride Carbon Dioxide BUN Creatinine Glucose POC Glucose 63 L 62 L 151 H Lactic Acid Calcium Magnesium Iron Total Bilirubin Direct Bilirubin AST ALT Alkaline Phosphatase Ammonia CK-MB (CK-2) CK-MB (CK-2) Rel Index Total Protein Albumin Arterial Blood Glucose Arterial Blood Ionized Calcium Urine Creatinine Urine Total Protein Salicylates Acetaminophen Crossmatch 10/09/20 10/09/20 10/09/20 05:07 05:42 06:32 WBC RBC Hgb 10.3 L Hct 33.8 L MCV 77 L MCH 24 L MCHC 31 L RDW 33.6 H Plt Count 137 L Reeves % (Auto) Reeves # (Auto) Seg Neutrophils % Seg Neuts % (Manual) 89.0 H Lymphocytes % (Manual) 5.0 L Monocytes % (Manual) Basophils % (Manual) Nucleated RBC % 4.0 H Seg Neutrophils # Seg Neutrophils # Man 9.4 H Lymphocytes # (Manual) 0.5 L Monocytes # (Manual) Basophils # (Manual) PT INR APTT Fibrinogen D-Dimer ABG pH POC ABG pCO2 POC ABG pO2 ABG Hemoglobin ABG Oxyhemoglobin ABG Sodium ABG Potassium ABG Chloride ABG Glucose Sodium 126 L Potassium Chloride 97.8 L Carbon Dioxide 20 L BUN Creatinine Glucose 58 L POC Glucose 48 L Lactic Acid Calcium Magnesium Iron Total Bilirubin Direct Bilirubin AST ALT Alkaline Phosphatase Ammonia CK-MB (CK-2) CK-MB (CK-2) Rel Index Total Protein Albumin Arterial Blood Glucose Arterial Blood Ionized Calcium Urine Creatinine Urine Total Protein Salicylates Acetaminophen Crossmatch 10/09/20 10/10/20 10/10/20 06:35 00:21 05:53 WBC RBC Hgb Hct MCV MCH MCHC RDW Plt Count Reeves % (Auto) Reeves # (Auto) Seg Neutrophils % Seg Neuts % (Manual) Lymphocytes % (Manual) Monocytes % (Manual) Basophils % (Manual) Nucleated RBC % Seg Neutrophils # Seg Neutrophils # Man Lymphocytes # (Manual) Monocytes # (Manual) Basophils # (Manual) PT INR APTT Fibrinogen D-Dimer ABG pH POC ABG pCO2 POC ABG pO2 ABG Hemoglobin ABG Oxyhemoglobin ABG Sodium ABG Potassium ABG Chloride ABG Glucose Sodium Potassium Chloride Carbon Dioxide BUN Creatinine Glucose POC Glucose 106 H 153 H 34 L Lactic Acid Calcium Magnesium Iron Total Bilirubin Direct Bilirubin AST ALT Alkaline Phosphatase Ammonia CK-MB (CK-2) CK-MB (CK-2) Rel Index Total Protein Albumin Arterial Blood Glucose Arterial Blood Ionized Calcium Urine Creatinine Urine Total Protein Salicylates Acetaminophen Crossmatch 10/10/20 10/10/20 10/10/20 10:58 10:58 12:39 WBC RBC Hgb 10.3 L Hct 33.9 L MCV 78 L MCH 24 L MCHC 30 L RDW 33.2 H Plt Count 135 L Reeves % (Auto) Reeves # (Auto) Seg Neutrophils % Seg Neuts % (Manual) 74.0 H Lymphocytes % (Manual) 12.0 L Monocytes % (Manual) 9.0 H Basophils % (Manual) 2.0 H Nucleated RBC % Seg Neutrophils # Seg Neutrophils # Man Lymphocytes # (Manual) 1.0 L Monocytes # (Manual) Basophils # (Manual) 0.2 H PT INR APTT Fibrinogen D-Dimer ABG pH POC ABG pCO2 POC ABG pO2 ABG Hemoglobin ABG Oxyhemoglobin ABG Sodium ABG Potassium ABG Chloride ABG Glucose Sodium 127 L Potassium Chloride Carbon Dioxide 20 L BUN 23 H Creatinine Glucose POC Glucose 108 H Lactic Acid Calcium Magnesium Iron Total Bilirubin Direct Bilirubin AST ALT Alkaline Phosphatase Ammonia CK-MB (CK-2) CK-MB (CK-2) Rel Index Total Protein Albumin Arterial Blood Glucose Arterial Blood Ionized Calcium Urine Creatinine Urine Total Protein Salicylates Acetaminophen Crossmatch 10/10/20 10/11/20 10/11/20 16:51 04:56 05:51 WBC RBC Hgb 9.5 L Hct 31.3 L MCV 77 L MCH 23 L MCHC 30 L RDW 33.7 H Plt Count Reeves % (Auto) Reeves # (Auto) Seg Neutrophils % Seg Neuts % (Manual) 95.0 H Lymphocytes % (Manual) 2.0 L Monocytes % (Manual) Basophils % (Manual) Nucleated RBC % 3.0 H Seg Neutrophils # Seg Neutrophils # Man 8.0 H Lymphocytes # (Manual) 0.2 L Monocytes # (Manual) Basophils # (Manual) PT INR APTT Fibrinogen D-Dimer ABG pH POC ABG pCO2 POC ABG pO2 ABG Hemoglobin ABG Oxyhemoglobin ABG Sodium ABG Potassium ABG Chloride ABG Glucose Sodium Potassium Chloride Carbon Dioxide BUN Creatinine Glucose POC Glucose 142 H 124 H Lactic Acid Calcium Magnesium Iron Total Bilirubin Direct Bilirubin AST ALT Alkaline Phosphatase Ammonia CK-MB (CK-2) CK-MB (CK-2) Rel Index Total Protein Albumin Arterial Blood Glucose Arterial Blood Ionized Calcium Urine Creatinine Urine Total Protein Salicylates Acetaminophen Crossmatch 10/11/20 10/11/20 10/12/20 05:51 11:56 04:53 WBC RBC Hgb 9.5 L Hct 30.0 L MCV 75 L MCH 24 L MCHC RDW 32.8 H Plt Count 136 L Reeves % (Auto) Reeves # (Auto) Seg Neutrophils % Seg Neuts % (Manual) 89.0 H Lymphocytes % (Manual) 5.0 L Monocytes % (Manual) Basophils % (Manual) Nucleated RBC % Seg Neutrophils # Seg Neutrophils # Man Lymphocytes # (Manual) 0.4 L Monocytes # (Manual) Basophils # (Manual) PT INR APTT Fibrinogen D-Dimer ABG pH POC ABG pCO2 POC ABG pO2 ABG Hemoglobin ABG Oxyhemoglobin ABG Sodium ABG Potassium ABG Chloride ABG Glucose Sodium 130 L Potassium Chloride Carbon Dioxide 18 L BUN 23 H Creatinine Glucose POC Glucose 126 H Lactic Acid Calcium Magnesium Iron Total Bilirubin Direct Bilirubin AST ALT Alkaline Phosphatase Ammonia CK-MB (CK-2) CK-MB (CK-2) Rel Index Total Protein Albumin Arterial Blood Glucose Arterial Blood Ionized Calcium Urine Creatinine Urine Total Protein Salicylates Acetaminophen Crossmatch 10/12/20 10/12/20 10/12/20 04:53 11:42 23:49 WBC RBC Hgb Hct MCV MCH MCHC RDW Plt Count Reeves % (Auto) Reeves # (Auto) Seg Neutrophils % Seg Neuts % (Manual) Lymphocytes % (Manual) Monocytes % (Manual) Basophils % (Manual) Nucleated RBC % Seg Neutrophils # Seg Neutrophils # Man Lymphocytes # (Manual) Monocytes # (Manual) Basophils # (Manual) PT INR APTT Fibrinogen D-Dimer ABG pH POC ABG pCO2 POC ABG pO2 ABG Hemoglobin ABG Oxyhemoglobin ABG Sodium ABG Potassium ABG Chloride ABG Glucose Sodium 130 L Potassium Chloride Carbon Dioxide 18 L BUN 25 H Creatinine Glucose 74 L POC Glucose 59 L 51 L Lactic Acid Calcium Magnesium Iron Total Bilirubin Direct Bilirubin AST ALT Alkaline Phosphatase Ammonia CK-MB (CK-2) CK-MB (CK-2) Rel Index Total Protein Albumin Arterial Blood Glucose Arterial Blood Ionized Calcium Urine Creatinine Urine Total Protein Salicylates Acetaminophen Crossmatch 10/13/20 10/13/20 10/13/20 03:17 05:24 05:24 WBC RBC Hgb 9.4 L Hct 29.4 L MCV 75 L MCH 24 L MCHC RDW 32.9 H Plt Count 95 L Reeves % (Auto) Reeves # (Auto) Seg Neutrophils % Seg Neuts % (Manual) 90.0 H Lymphocytes % (Manual) Monocytes % (Manual) Basophils % (Manual) Nucleated RBC % 2.0 H Seg Neutrophils # Seg Neutrophils # Man 9.5 H Lymphocytes # (Manual) 0.0 L Monocytes # (Manual) Basophils # (Manual) PT INR APTT Fibrinogen D-Dimer ABG pH POC ABG pCO2 POC ABG pO2 ABG Hemoglobin ABG Oxyhemoglobin ABG Sodium ABG Potassium ABG Chloride ABG Glucose Sodium 132 L Potassium Chloride Carbon Dioxide 17 L BUN 26 H Creatinine 1.6 H Glucose POC Glucose 67 L Lactic Acid Calcium Magnesium Iron Total Bilirubin Direct Bilirubin AST ALT Alkaline Phosphatase Ammonia CK-MB (CK-2) CK-MB (CK-2) Rel Index Total Protein Albumin Arterial Blood Glucose Arterial Blood Ionized Calcium Urine Creatinine Urine Total Protein Salicylates Acetaminophen Crossmatch 10/13/20 10/14/20 10/14/20 11:36 05:04 05:04 WBC 17.4 H RBC Hgb 9.3 L Hct 29.3 L MCV 76 L MCH 24 L MCHC RDW 33.8 H Plt Count 83 L Reeves % (Auto) Reeves # (Auto) Seg Neutrophils % Seg Neuts % (Manual) 89.0 H Lymphocytes % (Manual) 4.0 L Monocytes % (Manual) Basophils % (Manual) Nucleated RBC % 1.0 H Seg Neutrophils # Seg Neutrophils # Man 15.5 H Lymphocytes # (Manual) 0.7 L Monocytes # (Manual) Basophils # (Manual) PT INR APTT Fibrinogen D-Dimer ABG pH POC ABG pCO2 POC ABG pO2 ABG Hemoglobin ABG Oxyhemoglobin ABG Sodium ABG Potassium ABG Chloride ABG Glucose Sodium 132 L Potassium 5.3 H Chloride 108.7 H Carbon Dioxide 15 L BUN 25 H Creatinine 1.5 H Glucose POC Glucose 58 L Lactic Acid Calcium Magnesium Iron Total Bilirubin Direct Bilirubin AST ALT Alkaline Phosphatase Ammonia CK-MB (CK-2) CK-MB (CK-2) Rel Index Total Protein Albumin Arterial Blood Glucose Arterial Blood Ionized Calcium Urine Creatinine Urine Total Protein Salicylates Acetaminophen Crossmatch 10/14/20 10/14/20 10/14/20 05:41 08:19 15:34 WBC RBC Hgb Hct MCV MCH MCHC RDW Plt Count Reeves % (Auto) Reeves # (Auto) Seg Neutrophils % Seg Neuts % (Manual) Lymphocytes % (Manual) Monocytes % (Manual) Basophils % (Manual) Nucleated RBC % Seg Neutrophils # Seg Neutrophils # Man Lymphocytes # (Manual) Monocytes # (Manual) Basophils # (Manual) PT INR APTT Fibrinogen D-Dimer ABG pH POC ABG pCO2 POC ABG pO2 ABG Hemoglobin ABG Oxyhemoglobin ABG Sodium ABG Potassium ABG Chloride ABG Glucose Sodium 134 L Potassium 5.2 H Chloride 111.1 H Carbon Dioxide 16 L BUN 25 H Creatinine 1.5 H Glucose POC Glucose 58 L 120 H Lactic Acid Calcium Magnesium Iron Total Bilirubin Direct Bilirubin AST ALT Alkaline Phosphatase Ammonia CK-MB (CK-2) CK-MB (CK-2) Rel Index Total Protein Albumin Arterial Blood Glucose Arterial Blood Ionized Calcium Urine Creatinine Urine Total Protein Salicylates Acetaminophen Crossmatch 10/14/20 10/15/20 10/15/20 Unknown 05:50 05:50 WBC 14.1 H RBC Hgb 9.4 L Hct 29.9 L MCV 76 L MCH 24 L MCHC 31 L RDW 34.2 H Plt Count 86 L Reeves % (Auto) 8.3 H Reeves # (Auto) 1.3 H Seg Neutrophils % 86.5 H Seg Neuts % (Manual) Lymphocytes % (Manual) 9.0 L Monocytes % (Manual) Basophils % (Manual) Nucleated RBC % 6.0 H Seg Neutrophils # 13.2 H Seg Neutrophils # Man 9.7 H Lymphocytes # (Manual) Monocytes # (Manual) Basophils # (Manual) PT INR APTT Fibrinogen D-Dimer ABG pH POC ABG pCO2 POC ABG pO2 ABG Hemoglobin ABG Oxyhemoglobin ABG Sodium ABG Potassium ABG Chloride ABG Glucose Sodium 134 L Potassium Chloride 109.9 H Carbon Dioxide 18 L BUN 26 H Creatinine 1.5 H Glucose 125 H POC Glucose Lactic Acid Calcium Magnesium Iron Total Bilirubin Direct Bilirubin AST ALT Alkaline Phosphatase Ammonia CK-MB (CK-2) CK-MB (CK-2) Rel Index Total Protein Albumin Arterial Blood Glucose Arterial Blood Ionized Calcium Urine Creatinine 144.2 H Urine Total Protein 97 H Salicylates Acetaminophen Crossmatch 10/15/20 10/15/20 10/15/20 05:55 07:36 07:59 WBC RBC Hgb Hct MCV MCH MCHC RDW Plt Count Reeves % (Auto) Reeves # (Auto) Seg Neutrophils % Seg Neuts % (Manual) Lymphocytes % (Manual) Monocytes % (Manual) Basophils % (Manual) Nucleated RBC % Seg Neutrophils # Seg Neutrophils # Man Lymphocytes # (Manual) Monocytes # (Manual) Basophils # (Manual) PT INR APTT Fibrinogen D-Dimer ABG pH 7.052 L POC ABG pCO2 65.0 H POC ABG pO2 214.1 H ABG Hemoglobin 10.6 L ABG Oxyhemoglobin 98.3 H ABG Sodium 130.6 L ABG Potassium ABG Chloride 110.0 H ABG Glucose 124 H Sodium Potassium Chloride Carbon Dioxide BUN Creatinine Glucose POC Glucose 113 H 114 H Lactic Acid Calcium Magnesium Iron Total Bilirubin Direct Bilirubin AST ALT Alkaline Phosphatase Ammonia CK-MB (CK-2) CK-MB (CK-2) Rel Index Total Protein Albumin Arterial Blood Glucose 124 H Arterial Blood Ionized Calcium Urine Creatinine Urine Total Protein Salicylates Acetaminophen Crossmatch 10/15/20 10/15/20 10/15/20 10:50 11:27 13:56 WBC RBC Hgb Hct MCV MCH MCHC RDW Plt Count Reeves % (Auto) Reeves # (Auto) Seg Neutrophils % Seg Neuts % (Manual) Lymphocytes % (Manual) Monocytes % (Manual) Basophils % (Manual) Nucleated RBC % Seg Neutrophils # Seg Neutrophils # Man Lymphocytes # (Manual) Monocytes # (Manual) Basophils # (Manual) PT INR APTT Fibrinogen D-Dimer ABG pH 7.200 L POC ABG pCO2 POC ABG pO2 123.1 H ABG Hemoglobin ABG Oxyhemoglobin ABG Sodium 131.3 L ABG Potassium 4.6 H ABG Chloride 112.0 H ABG Glucose 42 L Sodium Potassium Chloride Carbon Dioxide BUN Creatinine Glucose POC Glucose 50 L 476 H Lactic Acid Calcium Magnesium Iron Total Bilirubin Direct Bilirubin AST ALT Alkaline Phosphatase Ammonia CK-MB (CK-2) CK-MB (CK-2) Rel Index Total Protein Albumin Arterial Blood Glucose 42 L Arterial Blood Ionized Calcium Urine Creatinine Urine Total Protein Salicylates Acetaminophen Crossmatch 10/15/20 10/15/20 10/16/20 16:46 17:01 00:45 WBC RBC Hgb Hct MCV MCH MCHC RDW Plt Count Reeves % (Auto) Reeves # (Auto) Seg Neutrophils % Seg Neuts % (Manual) Lymphocytes % (Manual) Monocytes % (Manual) Basophils % (Manual) Nucleated RBC % Seg Neutrophils # Seg Neutrophils # Man Lymphocytes # (Manual) Monocytes # (Manual) Basophils # (Manual) PT INR APTT Fibrinogen D-Dimer ABG pH 7.250 L POC ABG pCO2 POC ABG pO2 49.8 L ABG Hemoglobin 9.3 L ABG Oxyhemoglobin 83.0 L ABG Sodium 130.2 L ABG Potassium ABG Chloride 111.0 H ABG Glucose Sodium 135 L Potassium Chloride Carbon Dioxide BUN Creatinine Glucose POC Glucose 67 L Lactic Acid Calcium Magnesium Iron Total Bilirubin Direct Bilirubin AST ALT Alkaline Phosphatase Ammonia CK-MB (CK-2) CK-MB (CK-2) Rel Index Total Protein Albumin Arterial Blood Glucose Arterial Blood Ionized Calcium Urine Creatinine Urine Total Protein Salicylates Acetaminophen Crossmatch 10/16/20 10/16/20 10/16/20 05:36 05:53 05:53 WBC 16.6 H RBC 3.52 L Hgb 8.3 L Hct 26.6 L MCV 75 L MCH 23 L MCHC 31 L RDW 33.7 H Plt Count 63 L Reeves % (Auto) Reeves # (Auto) Seg Neutrophils % Seg Neuts % (Manual) 93.0 H Lymphocytes % (Manual) Monocytes % (Manual) Basophils % (Manual) Nucleated RBC % 3.0 H Seg Neutrophils # Seg Neutrophils # Man 15.4 H Lymphocytes # (Manual) 0.0 L Monocytes # (Manual) Basophils # (Manual) PT INR APTT Fibrinogen D-Dimer ABG pH POC ABG pCO2 POC ABG pO2 ABG Hemoglobin ABG Oxyhemoglobin ABG Sodium ABG Potassium ABG Chloride ABG Glucose Sodium 136 L Potassium Chloride 111.9 H Carbon Dioxide 17 L BUN 29 H Creatinine 2.0 H Glucose 126 H POC Glucose 44 L Lactic Acid Calcium 8.1 L Magnesium Iron Total Bilirubin Direct Bilirubin AST ALT Alkaline Phosphatase Ammonia CK-MB (CK-2) CK-MB (CK-2) Rel Index Total Protein Albumin Arterial Blood Glucose Arterial Blood Ionized Calcium Urine Creatinine Urine Total Protein Salicylates Acetaminophen Crossmatch 10/16/20 10/16/20 10/16/20 05:53 07:26 08:07 WBC RBC Hgb Hct MCV MCH MCHC RDW Plt Count Reeves % (Auto) Reeves # (Auto) Seg Neutrophils % Seg Neuts % (Manual) Lymphocytes % (Manual) Monocytes % (Manual) Basophils % (Manual) Nucleated RBC % Seg Neutrophils # Seg Neutrophils # Man Lymphocytes # (Manual) Monocytes # (Manual) Basophils # (Manual) PT 24.5 H INR 2.17 H APTT Fibrinogen D-Dimer ABG pH POC ABG pCO2 POC ABG pO2 ABG Hemoglobin ABG Oxyhemoglobin ABG Sodium ABG Potassium ABG Chloride ABG Glucose Sodium Potassium Chloride Carbon Dioxide BUN Creatinine Glucose POC Glucose 58 L 51 L Lactic Acid Calcium Magnesium Iron Total Bilirubin Direct Bilirubin AST ALT Alkaline Phosphatase Ammonia CK-MB (CK-2) CK-MB (CK-2) Rel Index Total Protein Albumin Arterial Blood Glucose Arterial Blood Ionized Calcium Urine Creatinine Urine Total Protein Salicylates Acetaminophen Crossmatch 10/16/20 10/16/20 10/16/20 08:52 11:14 11:33 WBC RBC Hgb Hct MCV MCH MCHC RDW Plt Count Reeves % (Auto) Reeves # (Auto) Seg Neutrophils % Seg Neuts % (Manual) Lymphocytes % (Manual) Monocytes % (Manual) Basophils % (Manual) Nucleated RBC % Seg Neutrophils # Seg Neutrophils # Man Lymphocytes # (Manual) Monocytes # (Manual) Basophils # (Manual) PT INR APTT Fibrinogen D-Dimer ABG pH 7.044 L POC ABG pCO2 58.1 H POC ABG pO2 57.7 L ABG Hemoglobin 9.5 L ABG Oxyhemoglobin 81.5 L ABG Sodium 131.7 L ABG Potassium ABG Chloride 112.0 H ABG Glucose 59 L Sodium Potassium Chloride Carbon Dioxide BUN Creatinine Glucose POC Glucose 58 L Lactic Acid Calcium Magnesium Iron Total Bilirubin Direct Bilirubin AST 136 H ALT 72 H Alkaline Phosphatase 240 H Ammonia CK-MB (CK-2) CK-MB (CK-2) Rel Index Total Protein 5.1 L Albumin 2.1 L Arterial Blood Glucose 59 L Arterial Blood Ionized Calcium Urine Creatinine Urine Total Protein Salicylates Acetaminophen Crossmatch 10/16/20 10/16/20 10/16/20 12:32 13:11 13:40 WBC RBC Hgb Hct MCV MCH MCHC RDW Plt Count Reeves % (Auto) Reeves # (Auto) Seg Neutrophils % Seg Neuts % (Manual) Lymphocytes % (Manual) Monocytes % (Manual) Basophils % (Manual) Nucleated RBC % Seg Neutrophils # Seg Neutrophils # Man Lymphocytes # (Manual) Monocytes # (Manual) Basophils # (Manual) PT INR APTT Fibrinogen D-Dimer ABG pH POC ABG pCO2 POC ABG pO2 ABG Hemoglobin ABG Oxyhemoglobin ABG Sodium ABG Potassium ABG Chloride ABG Glucose Sodium Potassium Chloride Carbon Dioxide BUN Creatinine Glucose POC Glucose 27 L 54 L 69 L Lactic Acid Calcium Magnesium Iron Total Bilirubin Direct Bilirubin AST ALT Alkaline Phosphatase Ammonia CK-MB (CK-2) CK-MB (CK-2) Rel Index Total Protein Albumin Arterial Blood Glucose Arterial Blood Ionized Calcium Urine Creatinine Urine Total Protein Salicylates Acetaminophen Crossmatch 10/16/20 10/16/20 10/16/20 15:13 17:15 17:34 WBC RBC Hgb Hct MCV MCH MCHC RDW Plt Count Reeves % (Auto) Reeves # (Auto) Seg Neutrophils % Seg Neuts % (Manual) Lymphocytes % (Manual) Monocytes % (Manual) Basophils % (Manual) Nucleated RBC % Seg Neutrophils # Seg Neutrophils # Man Lymphocytes # (Manual) Monocytes # (Manual) Basophils # (Manual) PT INR APTT Fibrinogen D-Dimer ABG pH POC ABG pCO2 POC ABG pO2 ABG Hemoglobin ABG Oxyhemoglobin ABG Sodium ABG Potassium ABG Chloride ABG Glucose Sodium Potassium Chloride Carbon Dioxide BUN Creatinine Glucose POC Glucose 46 L 54 L 119 H Lactic Acid Calcium Magnesium Iron Total Bilirubin Direct Bilirubin AST ALT Alkaline Phosphatase Ammonia CK-MB (CK-2) CK-MB (CK-2) Rel Index Total Protein Albumin Arterial Blood Glucose Arterial Blood Ionized Calcium Urine Creatinine Urine Total Protein Salicylates Acetaminophen Crossmatch 10/16/20 10/16/20 10/16/20 18:51 19:37 21:00 WBC RBC Hgb Hct MCV MCH MCHC RDW Plt Count Reeves % (Auto) Reeves # (Auto) Seg Neutrophils % Seg Neuts % (Manual) Lymphocytes % (Manual) Monocytes % (Manual) Basophils % (Manual) Nucleated RBC % Seg Neutrophils # Seg Neutrophils # Man Lymphocytes # (Manual) Monocytes # (Manual) Basophils # (Manual) PT INR APTT Fibrinogen D-Dimer ABG pH 7.122 L POC ABG pCO2 49.8 H POC ABG pO2 62.1 L ABG Hemoglobin 9.1 L ABG Oxyhemoglobin 89.6 L ABG Sodium 130.1 L ABG Potassium 3.0 L ABG Chloride 111.0 H ABG Glucose 106 H Sodium Potassium Chloride Carbon Dioxide BUN Creatinine Glucose POC Glucose 64 L 114 H Lactic Acid Calcium Magnesium Iron Total Bilirubin Direct Bilirubin AST ALT Alkaline Phosphatase Ammonia CK-MB (CK-2) CK-MB (CK-2) Rel Index Total Protein Albumin Arterial Blood Glucose 106 H Arterial Blood Ionized Calcium Urine Creatinine Urine Total Protein Salicylates Acetaminophen Crossmatch 10/16/20 10/16/20 10/17/20 22:01 22:58 00:58 WBC RBC Hgb Hct MCV MCH MCHC RDW Plt Count Reeves % (Auto) Reeves # (Auto) Seg Neutrophils % Seg Neuts % (Manual) Lymphocytes % (Manual) Monocytes % (Manual) Basophils % (Manual) Nucleated RBC % Seg Neutrophils # Seg Neutrophils # Man Lymphocytes # (Manual) Monocytes # (Manual) Basophils # (Manual) PT INR APTT Fibrinogen D-Dimer ABG pH POC ABG pCO2 POC ABG pO2 ABG Hemoglobin ABG Oxyhemoglobin ABG Sodium ABG Potassium ABG Chloride ABG Glucose Sodium 133 L Potassium 3.5 L Chloride 107.7 H Carbon Dioxide 15 L BUN 29 H Creatinine 2.6 H Glucose POC Glucose 63 L 292 H Lactic Acid Calcium 7.9 L Magnesium Iron Total Bilirubin Direct Bilirubin AST ALT Alkaline Phosphatase Ammonia CK-MB (CK-2) CK-MB (CK-2) Rel Index Total Protein Albumin Arterial Blood Glucose Arterial Blood Ionized Calcium Urine Creatinine Urine Total Protein Salicylates Acetaminophen Crossmatch 10/17/20 10/17/20 10/17/20 02:04 03:08 03:55 WBC RBC Hgb Hct MCV MCH MCHC RDW Plt Count Reeves % (Auto) Reeves # (Auto) Seg Neutrophils % Seg Neuts % (Manual) Lymphocytes % (Manual) Monocytes % (Manual) Basophils % (Manual) Nucleated RBC % Seg Neutrophils # Seg Neutrophils # Man Lymphocytes # (Manual) Monocytes # (Manual) Basophils # (Manual) PT INR APTT Fibrinogen D-Dimer ABG pH POC ABG pCO2 POC ABG pO2 ABG Hemoglobin ABG Oxyhemoglobin ABG Sodium ABG Potassium ABG Chloride ABG Glucose Sodium Potassium Chloride Carbon Dioxide BUN Creatinine Glucose POC Glucose 200 H 173 H 161 H Lactic Acid Calcium Magnesium Iron Total Bilirubin Direct Bilirubin AST ALT Alkaline Phosphatase Ammonia CK-MB (CK-2) CK-MB (CK-2) Rel Index Total Protein Albumin Arterial Blood Glucose Arterial Blood Ionized Calcium Urine Creatinine Urine Total Protein Salicylates Acetaminophen Crossmatch 10/17/20 10/17/20 10/17/20 04:00 04:49 04:49 WBC 17.7 H RBC 3.21 L Hgb 7.5 L Hct 25.4 L MCV 79 L MCH 24 L MCHC 30 L RDW 34.0 H Plt Count 40 L Reeves % (Auto) Reeves # (Auto) Seg Neutrophils % Seg Neuts % (Manual) Lymphocytes % (Manual) 3.0 L Monocytes % (Manual) Basophils % (Manual) Nucleated RBC % 3.0 H Seg Neutrophils # Seg Neutrophils # Man 10.6 H Lymphocytes # (Manual) 0.5 L Monocytes # (Manual) 1.1 H Basophils # (Manual) PT INR APTT Fibrinogen D-Dimer ABG pH 7.116 L POC ABG pCO2 POC ABG pO2 61.1 L ABG Hemoglobin 8.4 L ABG Oxyhemoglobin 90.2 L ABG Sodium 125.0 L ABG Potassium 3.1 L ABG Chloride ABG Glucose 155 H Sodium 133 L Potassium 3.3 L Chloride Carbon Dioxide 15 L BUN 29 H Creatinine 2.7 H Glucose 138 H POC Glucose Lactic Acid Calcium 7.8 L Magnesium Iron Total Bilirubin Direct Bilirubin AST ALT Alkaline Phosphatase Ammonia CK-MB (CK-2) CK-MB (CK-2) Rel Index Total Protein Albumin Arterial Blood Glucose 155 H Arterial Blood Ionized Calcium Urine Creatinine Urine Total Protein Salicylates Acetaminophen Crossmatch 10/17/20 10/17/20 10/17/20 04:58 06:01 07:50 WBC RBC Hgb Hct MCV MCH MCHC RDW Plt Count Reeves % (Auto) Reeves # (Auto) Seg Neutrophils % Seg Neuts % (Manual) Lymphocytes % (Manual) Monocytes % (Manual) Basophils % (Manual) Nucleated RBC % Seg Neutrophils # Seg Neutrophils # Man Lymphocytes # (Manual) Monocytes # (Manual) Basophils # (Manual) PT INR APTT Fibrinogen D-Dimer ABG pH POC ABG pCO2 POC ABG pO2 ABG Hemoglobin ABG Oxyhemoglobin ABG Sodium ABG Potassium ABG Chloride ABG Glucose Sodium Potassium Chloride Carbon Dioxide BUN Creatinine Glucose POC Glucose 137 H 119 H 106 H Lactic Acid Calcium Magnesium Iron Total Bilirubin Direct Bilirubin AST ALT Alkaline Phosphatase Ammonia CK-MB (CK-2) CK-MB (CK-2) Rel Index Total Protein Albumin Arterial Blood Glucose Arterial Blood Ionized Calcium Urine Creatinine Urine Total Protein Salicylates Acetaminophen Crossmatch 10/17/20 10/17/20 10/17/20 11:50 15:11 18:11 WBC RBC Hgb Hct MCV MCH MCHC RDW Plt Count Reeves % (Auto) Reeves # (Auto) Seg Neutrophils % Seg Neuts % (Manual) Lymphocytes % (Manual) Monocytes % (Manual) Basophils % (Manual) Nucleated RBC % Seg Neutrophils # Seg Neutrophils # Man Lymphocytes # (Manual) Monocytes # (Manual) Basophils # (Manual) PT INR APTT Fibrinogen D-Dimer ABG pH POC ABG pCO2 POC ABG pO2 ABG Hemoglobin ABG Oxyhemoglobin ABG Sodium ABG Potassium ABG Chloride ABG Glucose Sodium Potassium Chloride Carbon Dioxide BUN Creatinine Glucose POC Glucose 111 H 114 H 137 H Lactic Acid Calcium Magnesium Iron Total Bilirubin Direct Bilirubin AST ALT Alkaline Phosphatase Ammonia CK-MB (CK-2) CK-MB (CK-2) Rel Index Total Protein Albumin Arterial Blood Glucose Arterial Blood Ionized Calcium Urine Creatinine Urine Total Protein Salicylates Acetaminophen Crossmatch 10/17/20 10/17/20 10/18/20 19:51 23:32 04:00 WBC RBC Hgb Hct MCV MCH MCHC RDW Plt Count Reeves % (Auto) Reeves # (Auto) Seg Neutrophils % Seg Neuts % (Manual) Lymphocytes % (Manual) Monocytes % (Manual) Basophils % (Manual) Nucleated RBC % Seg Neutrophils # Seg Neutrophils # Man Lymphocytes # (Manual) Monocytes # (Manual) Basophils # (Manual) PT INR APTT Fibrinogen D-Dimer ABG pH 7.276 L POC ABG pCO2 POC ABG pO2 77.7 L ABG Hemoglobin 7.2 L ABG Oxyhemoglobin ABG Sodium 122.6 L ABG Potassium ABG Chloride ABG Glucose 113 H Sodium Potassium Chloride Carbon Dioxide BUN Creatinine Glucose POC Glucose 130 H 114 H Lactic Acid Calcium Magnesium Iron Total Bilirubin Direct Bilirubin AST ALT Alkaline Phosphatase Ammonia CK-MB (CK-2) CK-MB (CK-2) Rel Index Total Protein Albumin Arterial Blood Glucose 113 H Arterial Blood Ionized Calcium Urine Creatinine Urine Total Protein Salicylates Acetaminophen Crossmatch 10/18/20 10/18/20 10/18/20 04:06 04:06 04:13 WBC RBC Hgb Hct MCV MCH MCHC RDW Plt Count Reeves % (Auto) Reeves # (Auto) Seg Neutrophils % Seg Neuts % (Manual) Lymphocytes % (Manual) Monocytes % (Manual) Basophils % (Manual) Nucleated RBC % Seg Neutrophils # Seg Neutrophils # Man Lymphocytes # (Manual) Monocytes # (Manual) Basophils # (Manual) PT 23.5 H INR 2.05 H APTT Fibrinogen D-Dimer ABG pH POC ABG pCO2 POC ABG pO2 ABG Hemoglobin ABG Oxyhemoglobin ABG Sodium ABG Potassium ABG Chloride ABG Glucose Sodium 123 L D Potassium Chloride 97.9 L Carbon Dioxide 16 L BUN 31 H Creatinine 3.1 H Glucose 113 H POC Glucose 108 H Lactic Acid Calcium 7.4 L Magnesium Iron Total Bilirubin Direct Bilirubin AST ALT Alkaline Phosphatase Ammonia CK-MB (CK-2) CK-MB (CK-2) Rel Index Total Protein Albumin Arterial Blood Glucose Arterial Blood Ionized Calcium Urine Creatinine Urine Total Protein Salicylates Acetaminophen Crossmatch 10/18/20 10/18/20 10/18/20 10:03 14:12 19:08 WBC RBC Hgb Hct MCV MCH MCHC RDW Plt Count Reeves % (Auto) Reeves # (Auto) Seg Neutrophils % Seg Neuts % (Manual) Lymphocytes % (Manual) Monocytes % (Manual) Basophils % (Manual) Nucleated RBC % Seg Neutrophils # Seg Neutrophils # Man Lymphocytes # (Manual) Monocytes # (Manual) Basophils # (Manual) PT INR APTT Fibrinogen D-Dimer ABG pH POC ABG pCO2 POC ABG pO2 ABG Hemoglobin ABG Oxyhemoglobin ABG Sodium ABG Potassium ABG Chloride ABG Glucose Sodium Potassium Chloride Carbon Dioxide BUN Creatinine Glucose POC Glucose 139 H 112 H Lactic Acid Calcium Magnesium Iron Total Bilirubin Direct Bilirubin AST ALT Alkaline Phosphatase Ammonia CK-MB (CK-2) CK-MB (CK-2) Rel Index Total Protein Albumin Arterial Blood Glucose Arterial Blood Ionized Calcium Urine Creatinine Urine Total Protein Salicylates Acetaminophen Crossmatch See Detail 10/18/20 10/19/20 10/19/20 Unknown 02:02 04:00 WBC 19.8 H RBC 2.95 L Hgb 6.9 L Hct 22.2 L MCV 75 L MCH 24 L MCHC 31 L RDW 33.6 H Plt Count 28 L Reeves % (Auto) Reeves # (Auto) Seg Neutrophils % Seg Neuts % (Manual) Lymphocytes % (Manual) Monocytes % (Manual) Basophils % (Manual) Nucleated RBC % Seg Neutrophils # Seg Neutrophils # Man Lymphocytes # (Manual) Monocytes # (Manual) Basophils # (Manual) PT INR APTT Fibrinogen D-Dimer ABG pH 7.234 L POC ABG pCO2 POC ABG pO2 53.9 L ABG Hemoglobin 8.9 L ABG Oxyhemoglobin 86.6 L ABG Sodium 118.1 L ABG Potassium ABG Chloride 94.0 L ABG Glucose 61 L Sodium Potassium Chloride Carbon Dioxide BUN Creatinine Glucose POC Glucose 64 L Lactic Acid Calcium Magnesium Iron Total Bilirubin Direct Bilirubin AST ALT Alkaline Phosphatase Ammonia CK-MB (CK-2) CK-MB (CK-2) Rel Index Total Protein Albumin Arterial Blood Glucose 61 L Arterial Blood Ionized Calcium 4.5 L Urine Creatinine Urine Total Protein Salicylates Acetaminophen Crossmatch 10/19/20 10/19/20 10/19/20 04:51 04:51 05:43 WBC 18.2 H RBC 3.26 L Hgb 7.9 L Hct 24.6 L MCV 76 L MCH 24 L MCHC RDW 30.7 H Plt Count 41 L Reeves % (Auto) Reeves # (Auto) Seg Neutrophils % Seg Neuts % (Manual) Lymphocytes % (Manual) Monocytes % (Manual) Basophils % (Manual) Nucleated RBC % Seg Neutrophils # Seg Neutrophils # Man Lymphocytes # (Manual) Monocytes # (Manual) Basophils # (Manual) PT INR APTT Fibrinogen D-Dimer ABG pH POC ABG pCO2 POC ABG pO2 ABG Hemoglobin ABG Oxyhemoglobin ABG Sodium ABG Potassium ABG Chloride ABG Glucose Sodium 122 L Potassium Chloride 94.6 L Carbon Dioxide 17 L BUN 33 H Creatinine 3.5 H Glucose 63 L POC Glucose 54 L Lactic Acid Calcium 7.3 L Magnesium Iron Total Bilirubin 1.50 H Direct Bilirubin 0.9 H AST ALT Alkaline Phosphatase 154 H Ammonia CK-MB (CK-2) CK-MB (CK-2) Rel Index Total Protein 4.2 L Albumin 1.9 L Arterial Blood Glucose Arterial Blood Ionized Calcium Urine Creatinine Urine Total Protein Salicylates Acetaminophen Crossmatch 10/19/20 10/19/20 10/19/20 11:23 11:45 14:24 WBC RBC Hgb Hct MCV MCH MCHC RDW Plt Count Reeves % (Auto) Reeves # (Auto) Seg Neutrophils % Seg Neuts % (Manual) Lymphocytes % (Manual) Monocytes % (Manual) Basophils % (Manual) Nucleated RBC % Seg Neutrophils # Seg Neutrophils # Man Lymphocytes # (Manual) Monocytes # (Manual) Basophils # (Manual) PT INR APTT Fibrinogen D-Dimer ABG pH POC ABG pCO2 POC ABG pO2 ABG Hemoglobin ABG Oxyhemoglobin ABG Sodium ABG Potassium ABG Chloride ABG Glucose Sodium Potassium Chloride Carbon Dioxide BUN Creatinine Glucose POC Glucose 47 L 117 H 47 L Lactic Acid Calcium Magnesium Iron Total Bilirubin Direct Bilirubin AST ALT Alkaline Phosphatase Ammonia CK-MB (CK-2) CK-MB (CK-2) Rel Index Total Protein Albumin Arterial Blood Glucose Arterial Blood Ionized Calcium Urine Creatinine Urine Total Protein Salicylates Acetaminophen Crossmatch 10/19/20 10/19/20 10/19/20 16:31 20:04 20:19 WBC RBC Hgb Hct MCV MCH MCHC RDW Plt Count Reeves % (Auto) Reeves # (Auto) Seg Neutrophils % Seg Neuts % (Manual) Lymphocytes % (Manual) Monocytes % (Manual) Basophils % (Manual) Nucleated RBC % Seg Neutrophils # Seg Neutrophils # Man Lymphocytes # (Manual) Monocytes # (Manual) Basophils # (Manual) PT INR APTT Fibrinogen D-Dimer ABG pH POC ABG pCO2 POC ABG pO2 ABG Hemoglobin ABG Oxyhemoglobin ABG Sodium ABG Potassium ABG Chloride ABG Glucose Sodium Potassium Chloride Carbon Dioxide BUN Creatinine Glucose 59 L POC Glucose 58 L 49 L Lactic Acid Calcium Magnesium Iron Total Bilirubin Direct Bilirubin AST ALT Alkaline Phosphatase Ammonia CK-MB (CK-2) CK-MB (CK-2) Rel Index Total Protein Albumin Arterial Blood Glucose Arterial Blood Ionized Calcium Urine Creatinine Urine Total Protein Salicylates Acetaminophen Crossmatch 10/20/20 10/20/20 10/20/20 00:17 03:59 08:43 WBC 13.1 H RBC 3.42 L Hgb 8.3 L Hct 25.3 L MCV 74 L MCH 24 L MCHC RDW 31.4 H Plt Count 35 L Reeves % (Auto) Reeves # (Auto) Seg Neutrophils % Seg Neuts % (Manual) Lymphocytes % (Manual) Monocytes % (Manual) Basophils % (Manual) Nucleated RBC % Seg Neutrophils # Seg Neutrophils # Man Lymphocytes # (Manual) Monocytes # (Manual) Basophils # (Manual) PT INR APTT Fibrinogen D-Dimer ABG pH POC ABG pCO2 POC ABG pO2 ABG Hemoglobin ABG Oxyhemoglobin ABG Sodium ABG Potassium ABG Chloride ABG Glucose Sodium Potassium Chloride Carbon Dioxide BUN Creatinine Glucose POC Glucose 29 L 47 L Lactic Acid Calcium Magnesium Iron Total Bilirubin Direct Bilirubin AST ALT Alkaline Phosphatase Ammonia CK-MB (CK-2) CK-MB (CK-2) Rel Index Total Protein Albumin Arterial Blood Glucose Arterial Blood Ionized Calcium Urine Creatinine Urine Total Protein Salicylates Acetaminophen Crossmatch 10/20/20 10/20/20 10/20/20 08:43 08:43 09:56 WBC RBC Hgb Hct MCV MCH MCHC RDW Plt Count Reeves % (Auto) Reeves # (Auto) Seg Neutrophils % Seg Neuts % (Manual) Lymphocytes % (Manual) Monocytes % (Manual) Basophils % (Manual) Nucleated RBC % Seg Neutrophils # Seg Neutrophils # Man Lymphocytes # (Manual) Monocytes # (Manual) Basophils # (Manual) PT 30.1 H INR 2.82 H APTT Fibrinogen D-Dimer ABG pH POC ABG pCO2 POC ABG pO2 ABG Hemoglobin ABG Oxyhemoglobin ABG Sodium ABG Potassium ABG Chloride ABG Glucose Sodium 119 L* Potassium Chloride 90.7 L Carbon Dioxide 20 L BUN 35 H Creatinine 3.3 H Glucose 57 L POC Glucose 61 L Lactic Acid Calcium 7.7 L Magnesium 1.30 L Iron Total Bilirubin 1.60 H Direct Bilirubin AST ALT Alkaline Phosphatase 152 H Ammonia CK-MB (CK-2) CK-MB (CK-2) Rel Index Total Protein 4.5 L Albumin 1.6 L Arterial Blood Glucose Arterial Blood Ionized Calcium Urine Creatinine Urine Total Protein Salicylates Acetaminophen Crossmatch 10/20/20 10/20/20 10/20/20 15:35 17:30 20:17 WBC RBC Hgb Hct MCV MCH MCHC RDW Plt Count Reeves % (Auto) Reeves # (Auto) Seg Neutrophils % Seg Neuts % (Manual) Lymphocytes % (Manual) Monocytes % (Manual) Basophils % (Manual) Nucleated RBC % Seg Neutrophils # Seg Neutrophils # Man Lymphocytes # (Manual) Monocytes # (Manual) Basophils # (Manual) PT INR APTT Fibrinogen D-Dimer ABG pH POC ABG pCO2 POC ABG pO2 ABG Hemoglobin ABG Oxyhemoglobin ABG Sodium ABG Potassium ABG Chloride ABG Glucose Sodium 121 L 120 L Potassium Chloride Carbon Dioxide BUN Creatinine Glucose POC Glucose 61 L Lactic Acid Calcium Magnesium Iron Total Bilirubin Direct Bilirubin AST ALT Alkaline Phosphatase Ammonia CK-MB (CK-2) CK-MB (CK-2) Rel Index Total Protein Albumin Arterial Blood Glucose Arterial Blood Ionized Calcium Urine Creatinine Urine Total Protein Salicylates Acetaminophen Crossmatch 10/20/20 10/20/20 10/21/20 23:00 23:37 01:00 WBC RBC Hgb Hct MCV MCH MCHC RDW Plt Count Reeves % (Auto) Reeves # (Auto) Seg Neutrophils % Seg Neuts % (Manual) Lymphocytes % (Manual) Monocytes % (Manual) Basophils % (Manual) Nucleated RBC % Seg Neutrophils # Seg Neutrophils # Man Lymphocytes # (Manual) Monocytes # (Manual) Basophils # (Manual) PT INR APTT Fibrinogen D-Dimer ABG pH POC ABG pCO2 POC ABG pO2 ABG Hemoglobin ABG Oxyhemoglobin ABG Sodium ABG Potassium ABG Chloride ABG Glucose Sodium 121 L Potassium Chloride Carbon Dioxide BUN Creatinine Glucose POC Glucose 33 L 36 L Lactic Acid Calcium Magnesium Iron Total Bilirubin Direct Bilirubin AST ALT Alkaline Phosphatase Ammonia CK-MB (CK-2) CK-MB (CK-2) Rel Index Total Protein Albumin Arterial Blood Glucose Arterial Blood Ionized Calcium Urine Creatinine Urine Total Protein Salicylates Acetaminophen Crossmatch 10/21/20 10/21/20 10/21/20 02:31 04:00 05:22 WBC RBC Hgb Hct MCV MCH MCHC RDW Plt Count Reeves % (Auto) Reeves # (Auto) Seg Neutrophils % Seg Neuts % (Manual) Lymphocytes % (Manual) Monocytes % (Manual) Basophils % (Manual) Nucleated RBC % Seg Neutrophils # Seg Neutrophils # Man Lymphocytes # (Manual) Monocytes # (Manual) Basophils # (Manual) PT INR APTT Fibrinogen D-Dimer ABG pH POC ABG pCO2 POC ABG pO2 66.6 L ABG Hemoglobin 8.7 L ABG Oxyhemoglobin 92.1 L ABG Sodium 117.9 L ABG Potassium 3.2 L ABG Chloride 93.0 L ABG Glucose Sodium Potassium Chloride Carbon Dioxide BUN Creatinine Glucose POC Glucose 51 L 64 L Lactic Acid Calcium Magnesium Iron Total Bilirubin Direct Bilirubin AST ALT Alkaline Phosphatase Ammonia CK-MB (CK-2) CK-MB (CK-2) Rel Index Total Protein Albumin Arterial Blood Glucose Arterial Blood Ionized Calcium 4.4 L Urine Creatinine Urine Total Protein Salicylates Acetaminophen Crossmatch 10/21/20 10/21/20 10/21/20 05:50 05:50 10:32 WBC 11.1 H RBC 3.27 L Hgb 7.9 L Hct 23.9 L MCV 73 L MCH 24 L MCHC RDW 31.8 H Plt Count 26 L Reeves % (Auto) Reeves # (Auto) Seg Neutrophils % Seg Neuts % (Manual) Lymphocytes % (Manual) Monocytes % (Manual) Basophils % (Manual) Nucleated RBC % Seg Neutrophils # Seg Neutrophils # Man Lymphocytes # (Manual) Monocytes # (Manual) Basophils # (Manual) PT INR APTT Fibrinogen D-Dimer ABG pH POC ABG pCO2 POC ABG pO2 ABG Hemoglobin ABG Oxyhemoglobin ABG Sodium ABG Potassium ABG Chloride ABG Glucose Sodium 122 L Potassium 3.4 L Chloride 91.1 L Carbon Dioxide BUN 38 H Creatinine 3.2 H Glucose 56 L POC Glucose 68 L Lactic Acid Calcium 7.8 L Magnesium 1.60 L Iron Total Bilirubin Direct Bilirubin AST ALT Alkaline Phosphatase Ammonia CK-MB (CK-2) CK-MB (CK-2) Rel Index Total Protein Albumin Arterial Blood Glucose Arterial Blood Ionized Calcium Urine Creatinine Urine Total Protein Salicylates Acetaminophen Crossmatch 10/21/20 10/21/20 10/21/20 14:05 17:15 18:41 WBC RBC Hgb Hct MCV MCH MCHC RDW Plt Count Reeves % (Auto) Reeves # (Auto) Seg Neutrophils % Seg Neuts % (Manual) Lymphocytes % (Manual) Monocytes % (Manual) Basophils % (Manual) Nucleated RBC % Seg Neutrophils # Seg Neutrophils # Man Lymphocytes # (Manual) Monocytes # (Manual) Basophils # (Manual) PT INR APTT Fibrinogen D-Dimer ABG pH POC ABG pCO2 POC ABG pO2 ABG Hemoglobin ABG Oxyhemoglobin ABG Sodium ABG Potassium ABG Chloride ABG Glucose Sodium Potassium Chloride Carbon Dioxide BUN Creatinine Glucose POC Glucose 61 L 53 L 110 H Lactic Acid Calcium Magnesium Iron Total Bilirubin Direct Bilirubin AST ALT Alkaline Phosphatase Ammonia CK-MB (CK-2) CK-MB (CK-2) Rel Index Total Protein Albumin Arterial Blood Glucose Arterial Blood Ionized Calcium Urine Creatinine Urine Total Protein Salicylates Acetaminophen Crossmatch 10/21/20 10/21/20 10/21/20 21:08 22:20 Unknown WBC RBC Hgb Hct MCV MCH MCHC RDW Plt Count Reeves % (Auto) Reeves # (Auto) Seg Neutrophils % Seg Neuts % (Manual) Lymphocytes % (Manual) Monocytes % (Manual) Basophils % (Manual) Nucleated RBC % Seg Neutrophils # Seg Neutrophils # Man Lymphocytes # (Manual) Monocytes # (Manual) Basophils # (Manual) PT INR APTT Fibrinogen D-Dimer ABG pH POC ABG pCO2 POC ABG pO2 ABG Hemoglobin ABG Oxyhemoglobin ABG Sodium ABG Potassium ABG Chloride ABG Glucose Sodium 123 L 125 L Potassium 3.2 L Chloride 94.1 L Carbon Dioxide BUN 40 H Creatinine 3.3 H Glucose 64 L POC Glucose 117 H Lactic Acid Calcium 7.6 L Magnesium Iron Total Bilirubin Direct Bilirubin AST ALT Alkaline Phosphatase Ammonia CK-MB (CK-2) CK-MB (CK-2) Rel Index Total Protein Albumin Arterial Blood Glucose Arterial Blood Ionized Calcium Urine Creatinine Urine Total Protein Salicylates Acetaminophen Crossmatch 10/21/20 10/21/20 10/22/20 Unknown Unknown 02:43 WBC RBC 3.40 L Hgb 8.4 L Hct 24.8 L MCV 73 L MCH 25 L MCHC RDW 31.5 H Plt Count 21 L Reeves % (Auto) Reeves # (Auto) Seg Neutrophils % Seg Neuts % (Manual) 83.0 H Lymphocytes % (Manual) 10.0 L Monocytes % (Manual) Basophils % (Manual) Nucleated RBC % 2.0 H Seg Neutrophils # Seg Neutrophils # Man 9.0 H Lymphocytes # (Manual) 1.1 L Monocytes # (Manual) Basophils # (Manual) PT 27.0 H INR 2.44 H APTT 61.4 H* Fibrinogen 482 H D-Dimer 1992.93 H ABG pH POC ABG pCO2 POC ABG pO2 ABG Hemoglobin ABG Oxyhemoglobin ABG Sodium ABG Potassium ABG Chloride ABG Glucose Sodium 122 L Potassium 3.1 L Chloride 92.9 L Carbon Dioxide BUN 44 H Creatinine 3.2 H Glucose POC Glucose Lactic Acid Calcium 7.8 L Magnesium Iron Total Bilirubin Direct Bilirubin AST ALT Alkaline Phosphatase Ammonia CK-MB (CK-2) CK-MB (CK-2) Rel Index Total Protein Albumin Arterial Blood Glucose Arterial Blood Ionized Calcium Urine Creatinine Urine Total Protein Salicylates Acetaminophen Crossmatch 10/22/20 10/22/20 10/22/20 04:00 06:00 20:00 WBC RBC 3.29 L Hgb 8.0 L Hct 24.3 L MCV 74 L MCH 24 L MCHC RDW 32.2 H Plt Count 21 L Reeves % (Auto) Reeves # (Auto) Seg Neutrophils % Seg Neuts % (Manual) Lymphocytes % (Manual) Monocytes % (Manual) Basophils % (Manual) Nucleated RBC % Seg Neutrophils # Seg Neutrophils # Man Lymphocytes # (Manual) Monocytes # (Manual) Basophils # (Manual) PT INR APTT Fibrinogen D-Dimer ABG pH POC ABG pCO2 29.1 L POC ABG pO2 64.1 L ABG Hemoglobin 8.2 L ABG Oxyhemoglobin 90.6 L ABG Sodium 118.8 L ABG Potassium ABG Chloride 96.0 L ABG Glucose 117 H Sodium 126 L Potassium Chloride 95.8 L Carbon Dioxide 21 L BUN 50 H Creatinine 3.4 H Glucose POC Glucose Lactic Acid Calcium 7.9 L Magnesium Iron Total Bilirubin Direct Bilirubin AST ALT Alkaline Phosphatase Ammonia CK-MB (CK-2) CK-MB (CK-2) Rel Index Total Protein Albumin Arterial Blood Glucose 117 H Arterial Blood Ionized Calcium Urine Creatinine Urine Total Protein Salicylates Acetaminophen Crossmatch 10/23/20 10/23/20 10/23/20 04:00 05:35 05:35 WBC RBC 2.94 L Hgb 7.3 L Hct 21.3 L MCV 72 L MCH 25 L MCHC RDW 32.3 H Plt Count 56 L D Reeves % (Auto) Reeves # (Auto) Seg Neutrophils % Seg Neuts % (Manual) 83.0 H Lymphocytes % (Manual) 9.0 L Monocytes % (Manual) Basophils % (Manual) Nucleated RBC % 3.0 H Seg Neutrophils # Seg Neutrophils # Man Lymphocytes # (Manual) 0.7 L Monocytes # (Manual) Basophils # (Manual) PT INR APTT Fibrinogen D-Dimer ABG pH POC ABG pCO2 29.0 L POC ABG pO2 ABG Hemoglobin 7.7 L ABG Oxyhemoglobin ABG Sodium 120.4 L ABG Potassium ABG Chloride 97.0 L ABG Glucose Sodium 128 L Potassium Chloride 96.7 L Carbon Dioxide BUN 56 H Creatinine 3.4 H Glucose POC Glucose Lactic Acid Calcium Magnesium Iron Total Bilirubin Direct Bilirubin AST ALT Alkaline Phosphatase Ammonia CK-MB (CK-2) CK-MB (CK-2) Rel Index Total Protein Albumin Arterial Blood Glucose Arterial Blood Ionized Calcium Urine Creatinine Urine Total Protein Salicylates Acetaminophen Crossmatch Chest x-ray: image reviewed (Persitent alveoalr infiltrates) Allied health notes reviewed: RT
--- NOTE | 2020-10-23 15:11 | Progress Note ---
<CARIE WHITTAKER Yudi - Last Filed: 10/23/20 15:17> Assessment and Plan Assessment and plan: Assessment and Plan Assessment and plan: This is 74-year-old male with GERD admitted with arthrosclerotic calcification, anemia and hypoglycemia. Neuro: Acute metabolic encephalopathy, significant narrowing in bilateral posterior cerebral arteries, left-sided hemiparesis with aphasia, atherosclerotic cerebrovascular disease; AMS -Avoid delirium -Patient is not sedated -Intact cough/gag -CTA head/CTA neck completed-> see results -MRI brain completed-> see results, findings suggestive of ventriculomegaly -Thiamine and folate daily -Keppra -Seizure precautions -Neurology consulted, appreciate recommendations -EEG completed which cannot rule out acute seizure with postictal state Cardio: SB-SR, hypotension, afib, HFrEF (10-15%) -currently on dobutamine -MAP goal greater than 65 -Blood pressure monitoring per protocol -PICC 10/16 -Cardiology consulted, appreciate recommendations -no anticoagulation per cards for now -S/p amiodarone; AFIB CVR -Echo completed-> see results, EF 25-30% Respiratory: Acute hypoxic respiratory failure -Patient was intubated on 10/15 -Current vent settings: Assist control tidal volume 500, rate 30, PEEP 8, 40% FiO2 SEE RT NOTES FOR WEANING -Intubated with 7.5 OETT 24 at the lips SAT WHEN ABLE -CCM following -VAP bundled -Daily CXR and ABG GI: RECENT GIB, HX oropharyngeal dysphagia, severe protein-calorie malnutrition -Nutrition consult for tube feedings -GI consulted, appreciate recommendations -GI will hold off EGD/PEG given acute clinical worsening with respiratory failure -PPI with Protonix -NGT to LIS -BOWEL REG : Hyponatremia,metabolic acidosis, acute kidney injury secondary to acute tubular necrosis, VOLUME OVERLOAD -Nephrology consulted, appreciate recommendations -Monitor BMP -munoz for I&O -Serial sodium checks DO NOT OVER CORRECT -Lasix drip per [facility] REPLACE ELECTROLYTES NEEDED Heme: Iron deficient anemia, leukocytosis, supratherapeutic INR, superfical venous thrombus, thrombocytopenia -Likely secondary to malnutrition -Iron/multivitamin supplements -Hold off EGD/colonoscopy given acute clinical worsening with respiratory failure per GI -Trend CBC -Bilateral upper and lower extremity Doppler ultrasound shows occlusive superficial venous thrombus of left basilic and cephalic vein. -Monitor INR -DIC panel negative Endo: Persistent hypoglycemia -Accu-Cheks every 4H -Hypoglycemia protocol ID: Pulmonary infiltrate in right lung, Hypothermia -Infectious disease consulted, appreciate recommendations -COVID-19 PCR negative -Monitor CBC and temperature curve -TREND CULTURE DATA -TSH 2.1 The high probability of a clinically significant, sudden or life threatening deterioration of the [multi] system(s) required my full and direct attention, intervention and personal management. The aggregate critical care time was [60] minutes. This time is in addition to time spent performing reported procedures but includes the following: [x] Data Review and interpretation [x] Patient assessment and monitoring of vital signs [x] Documentation [x] Medication orders and management Disposition Plan: icu Total Time Spent with Patient (Minutes): 60 History Interval history: This is 74-year-old male with GERD who presented with AMS and left-sided weakness on 10/03 after being found incontinent in feces and urine on bed. Patient was only able to answer simple questions to the EMS. Upon presentation to the ED patient was confused. CT head showed cerebral with arthrosclerotic calcification. Work-up in the emergency department revealed anemia and hypoglycemia. Patient admitted to the hospital service for further work-up. 10/03/20: CT of the head no acute finding but showed a cerebral atrophy with suspicious atrophy and atherosclerotic calcification within the distal right middle cerebral artery. Patient also noted with hemoglobin of 5.8, received 1 unit of packed RBC and ordered for tomorrow Neuro is consulted, Covid test is negative We will check stool for occult blood MRI brain ordered we will follow Will hold any oral medicine until cleared by speech or passes the bedside swallow eval Patient noted to have severe hypoglycemic, will place on D10W Follow H&H and BMP Continue current management plan as dictated in the HPI 10/04/20: no acute findings in MRI, pending EEG, s/p 3 units PRBC transfusion. follow speech JACQUELINE rivera for now, h/h stable, GI consulted - follow recommendation. 10/05/20 Patient with acute encephalopathy, severe anemia s/p PRBC transfusion. GI following. Hgb 9.8 today. Will repeat in am. Left sided weakness. MRI negative for stroke. Neurology following. 10/06/20 Patient with encephalopathy, severe anemia s/p PRBC transfusion. Hgb 9.4 today. Patient has left sided weakness but MRI neg. Patient needs PEG tube. Will talk with family. Hypokalemia. Replace Q6h X 2. Check Mg 10/07/20 Patient with encephalopathy, severe anemia s/p PRBC transfusion. Hgb 9.6 today. Patient has left sided weakness but MRI neg. Patient needs PEG tube. Will talk with family. Hyponatremia of 128. This may be due to D10% he was on prior to NG tube. Stopped 10% Dextrose. Consulted Nephrology 10/08/20 Patient with encephalopathy, severe anemia s/p PRBC transfusion. Hgb 9.6 today. Patient has left sided weakness but MRI neg. Patient needs PEG tube. Hyponatremia worse today 126. This is due to D10% resumed last night because of hypoglycemia. I discussed with Dr. Herrera. Stop 10%Dextrose. Start D5NS Spoke to daughterCindy, yesterday and gave update. She wants PEG tube placed. Discussed plan with , GI. He wants to do upper and lower endoscopy to evaluate anemia, before PEG tube 10/09/20 Patient with encephalopathy, severe anemia s/p PRBC transfusion. Hgb 10.3 today. Patient has left sided weakness but MRI neg. Patient needs PEG tube. Hyponatremia still present Na 126 today. This is due to D10% resumed again last night because of hypoglycemia. Nephrology had recommended D5NS but 10% Dextrose restarted overnight because of hypoglycemia. Nurses unable to place NG tube. I discussed with Dr. Otero today and he will do. Spoke to daughterCindy, yesterday and gave update. She wants PEG tube placed. Discussed plan with , GI. He wants to do upper and lower endoscopy to evaluate anemia, before PEG tube Today Na still 126. I discussed with Dr. Herrera and he recommended D10NS. I called Pharmacy. They will mix special D10NS drip. Patient had bilateral pneumonia on CXR therefore started iv Antibiotics, blood cultures. yesterday. Consulted ID 10/10/2020. Patient remains encephalopathic with hemoglobin stabilizing yesterday. Recheck H&H. Patient with left-sided weakness but MRI negative. Fluoroscopic NG tube placement completed yesterday. Await GI to perform EGD and colonoscopy. Follow-up hyponatremia with BMP results. Dr. Aldrich Spoke to daughter, Cindy Singh, and gave update. Daughter wants PEG tube placed. Continue IV antibiotics for bilateral pneumonia. ID consulted. Follow-up procalcitonin levels. 10/11/2020. Patient's hemoglobin remained stable today at 9.5. However, patient noted to be hypotensive with systolic blood pressure of 83. Patient received NS 250 cc bolus with improvement of blood pressure systolically to 123. GI plans to perform EGD/colonoscopy tomorrow. Hyponatremia improving. Start IV fluid of normal saline at 75 cc an hour x1 L 10/12/2020. Patient noted to have some gurgling of the upper airway. NG tube was placed to low intermittent suction. Check chest x-ray and KUB to rule out aspiration and/or ileus. Continue to monitor. H/H remained stable. ID stopped antibiotics due to normal procalcitonin. Speech evaluation 10/13/2020. Patient remains encephalopathic. I discussed overall mental status with the daughter yesterday and updated her with plan of care. Neurology reports: CT angio of the head that is a significant narrowing seen in both posterior cerebral arteries - and no signs of large vessel -CT of the head no acute finding but showed a cerebral atrophy with suspicious atrophy and atherosclerotic calcification within the distal right middle cere bral artery. -MRI brain without any acute findings - EEG completed yesterday remarkable for diffuse slowing 3-4 Hz and with occassional triphasic waves , no epileptiform discharges is noted -- full report to follow -Repeat MRI brain showed no acute finding Keppra was decreased to 250 mg IV twice daily and thiamine was added x3 days. No LP for now due to lack of any inflammatory findings. Repeat EEG per neurology. Sodium level has improved. Serum creatinine has increased to 1.6 today. Avoid nephrotoxic agents and monitor I/O's daily. Salt tabs 2 g 3 times daily per nephrology 10/14/2020. Patient remains encephalopathic. MRI, EEG and CT results noted above. Continue supportive care. Defer to neurology recommendations regarding mental status/encephalopathy. Continue salt tabs per nephrology. Follow-up BMP. Avoid nephrotoxic agents and monitor I/O's daily. Continue NG tube feedings. PEG placement per GI. 10/15/2020. Patient noted to have significant respiratory distress. Patient with tachypnea, some accessory muscle use, labored breathing and coarse breath sounds and sonorous respirations. Dr. Maldonado from the emergency department intubated the patient. Dr. Floyd was consulted and notified. The patient will be transferred to the ICU and continued on mechanical ventilation. Follow-up chest x-ray. 10/16: Patient is having persistent hypoglycemia despite being on D10 23% saline at 100ml/hr. given multiple amps of D50 with minimal response. The patient IV fluids changed to D5W at 125. Repeat BMP in the p.m. 10/17: hypoglycemia better, remains on levophed, epi, neoshynephrine, dobumatine and bicarb gtt this morning. RN is slowly titrating vasopressor as tolerated. Updated daughter Mignon today and relayed new findings including posturing of BUE to pain. 10/18: Patient is being slowly weaned off of vasopressor support by RN. Patient remains on phenyl epinephrine, vasopressin, norepinephrine and amiodarone. Nephrology will resume Lasix. Patient is hyponatremic today however he is on a bicarb drip which we will add today. This evening patient noted to be anemic and have low platelets. Transfuse platelets and PRBC. NGT to suction 10/19: remains on vasopressor support, renal will reassess HD tomorrow. Patient with significant edema. Dr. Gorman spoke to family who wishes for code status to not change. 10/20: Amiodarone stopped by cardiology, patient placed on hypertonic saline by nephrology. Patient is tolerating trickle feedings at this time. Patient strep ordered for diuresis. Patient is being weaned off vasopressors as tolerated. 10/21: Patient remains on vasopressors however vasopressors are being weaned as tolerated, dobutamine drip continues, RN and CUTTER FINISHER updated family at bedside today via [employer]. Patient was started on Lasix drip today. Patient had hypokalemia and hypomagnesemia which were repleted. 10/22: Patient still has hyponatremia, hypokalemia, hypochloremia with slightly improving renal function. Patient remains on Lasix. Still having thrombocytopenia and was transfused with 1 unit platelet today. RN is weaning vasopressors as tolerated. Patient is on minimal vent settings. 10-23 REMAINS MECHANICALLY INTUBATED; ON LASIX AND ; CARDS FOLLOWING; BETSY NEPHROLOGY FOLLOWING Disposition Plan: ICU Total Time Spent with Patient (Minutes): 60 History Interval history: PAULINO OVERNIGHT Hospitalist Physical - Constitutional Vitals: Temp Pulse Resp BP Pulse Ox 97.6 F 86 30 H 125/65 100 10/23/20 12:00 10/23/20 14:00 10/23/20 14:00 10/23/20 14:00 10/23/20 14:00 General appearance: Present: no acute distress, other (Unresponsive to painful stimuli) - EENT Eyes: Present: PERRL ENT: clear oral mucosa - Neck Neck: Present: supple - Respiratory Respiratory effort: normal - Cardiovascular Rhythm: irregularly irregular - Extremities Extremities: no ischemia Extremity abnormal: edema - Abdominal General gastrointestinal: soft - Integumentary Integumentary: Present: clear, warm, dry - Psychiatric Psychiatric: other - Neurologic Neurologic: other HEART Score - HEART Score Troponin: Troponin T < 0.010 ng/mL (0.00-0.029) 10/02/20 23:17 Results - Labs CBC & Chem 7: 10/23/20 05:35 10/23/20 05:35 Labs: Laboratory Last Values WBC 7.3 K/mm3 (4.5-11.0) 10/23/20 05:35 RBC 2.94 M/mm3 (3.65-5.03) L 10/23/20 05:35 Hgb 7.3 gm/dl (11.8-15.2) L 10/23/20 05:35 Hct 21.3 % (35.5-45.6) L 10/23/20 05:35 MCV 72 fl (84-94) L 10/23/20 05:35 MCH 25 pg (28-32) L 10/23/20 05:35 MCHC 34 % (32-34) 10/23/20 05:35 RDW 32.3 % (13.2-15.2) H 10/23/20 05:35 Plt Count 56 K/mm3 (140-440) L D 10/23/20 05:35 Lymph % (Auto) Consulting Senior Practice Director 10/10/20 10:58 [place] % (Auto) 8.3 % (0.0-7.3) H 10/15/20 05:50 Eos % (Auto) 0.3 % (0.0-4.3) 10/15/20 05:50 Baso % (Auto) Consulting Senior Practice Director 10/10/20 10:58 Lymph # (Auto) Consulting Senior Practice Director 10/10/20 10:58 [place] # (Auto) 1.3 K/mm3 (0.0-0.8) H 10/15/20 05:50 Eos # (Auto) 0.0 K/mm3 (0.0-0.4) 10/15/20 05:50 Baso # (Auto) 0.1 K/mm3 (0.0-0.1) 10/15/20 05:50 Add Manual Diff Complete 10/23/20 05:35 Total Counted 100 10/23/20 05:35 Seg Neutrophils % Consulting Senior Practice Director 10/21/20 Unknown Seg Neuts % (Manual) 83.0 % (40.0-70.0) H 10/23/20 05:35 Band Neutrophils % 5.0 % 10/23/20 05:35 Lymphocytes % (Manual) 9.0 % (13.4-35.0) L 10/23/20 05:35 Reactive Lymphs % (Man) 1.0 % 10/23/20 05:35 Monocytes % (Manual) 1.0 % (0.0-7.3) 10/23/20 05:35 Eosinophils % (Manual) 1.0 % (0.0-4.3) 10/23/20 05:35 Basophils % (Manual) 2.0 % (0.0-1.8) H 10/10/20 10:58 Metamyelocytes % 11.0 % 10/17/20 04:49 Myelocytes % 7.0 % 10/17/20 04:49 Nucleated RBC % 3.0 % (0.0-0.9) H 10/23/20 05:35 Seg Neutrophils # 13.2 K/mm3 (1.8-7.7) H 10/15/20 05:50 Seg Neutrophils # Man 6.1 K/mm3 (1.8-7.7) 10/23/20 05:35 Band Neutrophils # 0.4 K/mm3 10/23/20 05:35 Lymphocytes # (Manual) 0.7 K/mm3 (1.2-5.4) L 10/23/20 05:35 Abs React Lymphs (Man) 0.1 K/mm3 10/23/20 05:35 Monocytes # (Manual) 0.1 K/mm3 (0.0-0.8) 10/23/20 05:35 Eosinophils # (Manual) 0.1 K/mm3 (0.0-0.4) 10/23/20 05:35 Basophils # (Manual) 0.0 K/mm3 (0.0-0.1) 10/23/20 05:35 Metamyelocytes # 0.0 K/mm3 10/23/20 05:35 Myelocytes # 0.0 K/mm3 10/23/20 05:35 Promyelocytes # 0.0 K/mm3 10/23/20 05:35 Blast Cells # 0.0 K/mm3 10/23/20 05:35 WBC Morphology Not Reportable 10/23/20 05:35 Hypersegmented Neuts Not Reportable 10/23/20 05:35 Hyposegmented Neuts Not Reportable 10/23/20 05:35 Hypogranular Neuts Not Reportable 10/23/20 05:35 Smudge Cells Not Reportable 10/23/20 05:35 Toxic Granulation 1+ 10/23/20 05:35 Toxic Vacuolation 1+ 10/23/20 05:35 Dohle Bodies 1+ 10/23/20 05:35 Pelger-Huet Anomaly Not Reportable 10/23/20 05:35 Andrés Rods Not Reportable 10/23/20 05:35 Platelet Estimate Consistent w auto 10/23/20 05:35 Clumped Platelets Not Reportable 10/23/20 05:35 Plt Clumps, EDTA Not Reportable 10/23/20 05:35 Large Platelets Not Reportable 10/23/20 05:35 Giant Platelets Not Reportable 10/23/20 05:35 Platelet Satelliting Not Reportable 10/23/20 05:35 Plt Morphology Comment Not Reportable 10/23/20 05:35 RBC Morphology Not Reportable 10/23/20 05:35 Dimorphic RBCs Not Reportable 10/23/20 05:35 Polychromasia 1+ 10/23/20 05:35 Hypochromasia 2+ 10/23/20 05:35 Poikilocytosis 2+ 10/23/20 05:35 Anisocytosis 3+ 10/23/20 05:35 Microcytosis Not Reportable 10/23/20 05:35 Macrocytosis Not Reportable 10/23/20 05:35 Spherocytes 1+ 10/23/20 05:35 Pappenheimer Bodies Not Reportable 10/23/20 05:35 Sickle Cells Not Reportable 10/23/20 05:35 Target Cells 1+ 10/23/20 05:35 Tear Drop Cells Not Reportable 10/23/20 05:35 Ovalocytes Not Reportable 10/23/20 05:35 Helmet Cells Not Reportable 10/23/20 05:35 [place] Bodies Not Reportable 10/23/20 05:35 [place] Rings Not Reportable 10/23/20 05:35 Norbert Cells Not Reportable 10/23/20 05:35 Bite Cells Not Reportable 10/23/20 05:35 Crenated Cell Not Reportable 10/23/20 05:35 Elliptocytes Not Reportable 10/23/20 05:35 Acanthocytes (Spur) 1+ 10/23/20 05:35 Rouleaux Not Reportable 10/23/20 05:35 Hemoglobin C Crystals Not Reportable 10/23/20 05:35 Schistocytes Not Reportable 10/23/20 05:35 Malaria parasites Not Reportable 10/23/20 05:35 Dereck Bodies Not Reportable 10/23/20 05:35 Hem Pathologist Commnt No 10/23/20 05:35 PT 27.0 Sec. (12.2-14.9) H 10/21/20 Unknown INR 2.44 (0.87-1.13) H 10/21/20 Unknown APTT 61.4 Sec. (24.2-36.6) H* 10/21/20 Unknown Thrombin Time 17.8 Sec. (15.1-19.6) 10/02/20 23:17 Fibrinogen 482 mg/dl (211-480) H 10/21/20 Unknown D-Dimer 1992.93 ng/mlDDU (0-234) H 10/21/20 Unknown ABG pH 7.439 (7.320-7.450) 10/23/20 04:00 POC ABG pCO2 29.0 mmHg (32.0-48.0) L 10/23/20 04:00 POC ABG pO2 104.6 mmHg (83-108) 10/23/20 04:00 POC ABG HCO3 19.2 10/23/20 04:00 ABG O2 Saturation 98.3 (0-100) 10/23/20 04:00 POC ABG Base Excess -4.3 10/23/20 04:00 ABG Hemoglobin 7.7 (12.0-17.5) L 10/23/20 04:00 ABG Oxyhemoglobin 97.0 (94-98) 10/23/20 04:00 ABG Methemoglobin 0.3 (0.0-1.5) 10/23/20 04:00 ABG Sodium 120.4 mmol/L (136.0-145.0) L 10/23/20 04:00 ABG Potassium 3.4 mmol/L (3.40-4.50) 10/23/20 04:00 ABG Chloride 97.0 mmol/L (98-107) L 10/23/20 04:00 ABG Glucose 92 mg/dL (65-95) 10/23/20 04:00 Carboxyhemoglobin 1.0 (0.5-1.5) 10/23/20 04:00 FiO2 % 40.0 10/23/20 04:00 Sodium 128 mmol/L (137-145) L 10/23/20 05:35 Potassium 3.8 mmol/L (3.6-5.0) 10/23/20 05:35 Chloride 96.7 mmol/L (98-107) L 10/23/20 05:35 Carbon Dioxide 24 mmol/L (22-30) 10/23/20 05:35 Anion Gap 11 mmol/L 10/23/20 05:35 BUN 56 mg/dL (9-20) H 10/23/20 05:35 Creatinine 3.4 mg/dL (0.8-1.3) H 10/23/20 05:35 Estimated GFR 21 ml/min 10/23/20 05:35 BUN/Creatinine Ratio 16 % 10/23/20 05:35 Glucose 90 mg/dL (75-100) 10/23/20 05:35 POC Glucose 96 mg/dL (70-105) 10/23/20 11:14 Hemoglobin A1c 5.2 % (4-6) 10/03/20 05:57 Osmolality 267 Mosm/kg 10/07/20 13:54 Lactic Acid 1.50 mmol/L (0.7-2.0) 10/03/20 04:43 Calcium 8.4 mg/dL (8.4-10.2) 10/23/20 05:35 Phosphorus 2.80 mg/dL (2.5-4.5) 10/23/20 05:35 Magnesium 2.10 mg/dL (1.7-2.3) 10/23/20 05:35 Iron 42 ug/dL (49-181) L 10/03/20 05:57 TIBC 305 mcg/dL (250-450) 10/03/20 05:57 Total Bilirubin 1.60 mg/dL (0.1-1.2) H 10/20/20 08:43 Direct Bilirubin 0.9 mg/dL (0-0.2) H 10/19/20 04:51 Indirect Bilirubin 0.6 mg/dL 10/19/20 04:51 AST 27 units/L (5-40) 10/20/20 08:43 ALT 27 units/L (7-56) 10/20/20 08:43 Alkaline Phosphatase 152 units/L (35-129) H 10/20/20 08:43 Ammonia 22.0 umol/L (25-60) L 10/02/20 23:17 Total Creatine Kinase 88 units/L (55-170) 10/02/20 23:17 CK-MB (CK-2) 7.5 ng/mL (0.0-4.0) H 10/02/20 23:17 CK-MB (CK-2) Rel Index 8.5 (0-4) H 10/02/20 23:17 Troponin T < 0.010 ng/mL (0.00-0.029) 10/02/20 23:17 Total Protein 4.5 g/dL (6.3-8.2) L 10/20/20 08:43 Albumin 1.6 g/dL (3.9-5) L 10/20/20 08:43 Albumin/Globulin Ratio 0.6 % 10/20/20 08:43 Lipase 17 units/L (13-60) 10/16/20 22:58 Procalcitonin 0.10 ng/mL (<0.15) 10/10/20 10:58 TSH 2.130 mlU/mL (0.270-4.200) 10/07/20 13:54 Total Cortisol 17.4 mcg/dL () 10/09/20 02:46 Arterial Blood Glucose 92 mg/dL (65-95) 10/23/20 04:00 Arterial Blood Ionized Calcium 4.7 mg/dL (4.6-5.3) 10/23/20 04:00 Urine Eosinophils None seen (None Seen) 10/14/20 Unknown Urine Osmolality 223 Mosm/kg 10/07/20 Unknown Urine Creatinine 144.2 mg/dL (0.1-20.0) H 10/14/20 Unknown Protein/Creatinin Ratio 0.67 10/14/20 Unknown Urine Sodium 10 mmol/L 10/14/20 Unknown Urine Total Protein 97 mg/dL (5-11.8) H 10/14/20 Unknown Salicylates < 0.3 mg/dL (2.8-20.0) L 10/02/20 23:17 Acetaminophen 5.0 ug/mL (10.0-30.0) L 10/02/20 23:17 Plasma/Serum Alcohol < 0.01 % (0-0.07) 10/02/20 23:17 Coronavirus (PCR) Negative (Negative) 10/14/20 08:00 Blood Type O POSITIVE 10/22/20 15:05 Antibody Screen Negative 10/18/20 19:08 Crossmatch See Detail 10/18/20 19:08 Munoz/IV: Voiding Method Indwelling Catheter Active Medications - Current Medications Current Medications: Generic Name Dose Route Start Last Admin Trade Name Freq PRN Reason Stop Dose Admin Acetaminophen 650 mg 10/03/20 02:10 10/06/20 15:28 Acetaminophen 325 Mg Tab PO 650 mg Q4H PRN Administration Pain MILD(1-3)/Fever >100.5/ROMERO Al Hydrox/Mg Hydrox/Simethicone 30 ml 10/03/20 02:10 Alum-Mag Hydroxide-Simethicone [phone] Oral Liqd 30 Ml PO Q4H PRN Indigestion Lipase/Protease/Amylase 1 each 10/03/20 16:51 Lipase 10,500/Protease 25,000/Amylase 43,750 (Units) Dr Reis FEEDTUBE PRN PRN For Clogged Feeding Tube Dextrose 50 ml 10/16/20 12:42 10/21/20 17:39 Dextrose 50% In Water (25gm) 50 Ml Syringe IV 50 ml Q30MIN PRN Administration Hypoglycemia Protocol Fentanyl 50 mcg 10/22/20 10:00 Fentanyl 100 Mcg/2 Ml Inj IV Q4HR PRN Pain , Severe (7-10) Ferrous Sulfate 308 mg 10/16/20 10:00 10/23/20 09:45 Ferrous Sulfate 308 Mg (62mg Elemental Iron) / 7 Ml Elixir FEEDTUBE 308 mg DAILY JOSE Administration Folic Acid 1 mg 10/03/20 10:00 10/23/20 09:45 Folic Acid 1 Mg Tab PO 1 mg QDAY JOSE Administration Hydrocortisone Sodium Succinate 100 mg 10/19/20 18:00 10/23/20 09:49 Hydrocortisone Sod Succ 100 Mg/2 Ml Vial IV 100 mg Q8H JOSE Administration Levetiracetam 250 mg/ Dextrose 102.5 mls @ 400 mls/hr 10/10/20 22:00 10/23/20 09:46 IV 400 mls/hr Q12HR JOSE Administration Vasopressin 20 unit/ Sodium 101 mls @ 9.09 mls/hr 10/16/20 13:00 10/23/20 04:09 Chloride IV 0.03 units/min TITR JOSE 9.09 mls/hr Administration Protocol 0.03 UNITS/MIN Phenylephrine HCl 100 mg/ 100 mls @ 3 mls/hr 10/16/20 18:00 10/20/20 11:50 Sodium Chloride IV 0 mcg/min TITR JOSE 0 mls/hr Titration Protocol 50 MCG/MIN NORepinephrine/NS 8 MG-250 ML 8 mg in 250 mls @ 3.75 mls/hr 10/16/20 19:00 10/21/20 16:56 Norepinephrine/Ns 8 Mg-250 Ml (Double Conc) IV 0 mcg/min TITRATE JOSE 0 mls/hr Titration Protocol 2 MCG/MIN Dobutamine HCl/Dextrose 500 mg in 250 mls @ 6.908 mls/hr 10/16/20 19:00 10/22/20 15:00 Dobutrex Drip 500mg/D5w 250ml IV 2.5 mcg/kg/min DIRECT JOSE 6.908 mls/hr Administration Protocol 2.5 MCG/KG/MIN Epinephrine 8 mg/ Sodium 250 mls @ 0 mls/hr 10/16/20 23:45 10/17/20 11:33 Chloride IV 0 mls/hr TITR JOSE Infusion Furosemide 100 mg/ Sodium 100 mls @ 5 mls/hr 10/21/20 08:00 10/23/20 02:59 Chloride IV 5 mls/hr TITR JOSE Administration As Directed Magnesium Hydroxide 30 ml 10/03/20 02:10 Magnesium Hydroxide (Mom) Oral Liqd Udc PO Q4H PRN Constipation Metoclopramide HCl 5 mg 10/17/20 09:00 Metoclopramide 10 Mg/2 Ml Inj IV Q6H PRN Nausea And Vomiting Ondansetron HCl 4 mg 10/03/20 02:10 10/07/20 23:19 Ondansetron 4 Mg/2 Ml Inj IV 4 mg Q8H PRN Administration Nausea And Vomiting Pantoprazole Sodium 40 mg 10/04/20 15:00 10/23/20 09:45 Pantoprazole 40 Mg Inj IV 40 mg QDAY JOSE Administration Promethazine HCl 25 mg 10/03/20 02:10 Promethazine 25 Mg Rect Supp CA Q6H PRN N/V IF NPO AND NO IV ACCESS Senna 8.6 mg 10/03/20 02:10 Sennosides 8.6 Mg Tab PO Q12HR PRN Constipation Simple Syrup 15 ml 10/03/20 16:51 10/19/20 02:08 Simple Syrup 15 Ml FEEDTUBE 15 ml PRN PRN Administration Hypoglycemia Simple Syrup 30 ml 10/03/20 16:51 10/16/20 22:02 Simple Syrup 15 Ml FEEDTUBE 30 ml PRN PRN Administration Hypoglycemia Sodium Bicarbonate 325 mg 10/03/20 16:51 Sodium Bicarbonate 325 Mg Tab FEEDTUBE PRN PRN For Clogged Feeding Tube Nutrition/Malnutrition Assess - Dietary Evaluation Nutrition/Malnutrition Findings: Nutrition Notes Start: 10/03/20 08:51 Freq: Status: Active Protocol: Document 10/23/20 10:14 BETSY (Rec: 10/23/20 10:17 BETSY [id number]) Nutrition Notes Initial or Follow up Reassessment Current Diagnosis Diabetes Other Pertinent Diagnosis AMS, hypothermia, pneu, anemia , atherosclerotic cerebrovascular disease Current Diet Nepro 1.8 at 40 ml/hr Labs/Tests Na 128 BUN 56 Cr 3.4 Pertinent Medications Vasopressin Lasix Height 5 ft 10 in Weight 92.1 kg [place] Body Weight (kg) 75.45 BMI 29.1 Weight Status Overweight Subjective/Other Information Pt tolerating TF at 20 ml/hr. TF was not increased due to pt maxed out on pressors. Per RN , she recently increased TF to 30 ml/hr with a goal of 40 ml /hr. Percent of energy/protein needs met: 47%/46% Burn Absent Trauma Absent Difficulty In Swallowing Current % PO Negligible Minimum of two criteria No Fluid Accumulation Moderate to Severe (severe) #1 Nutrition Diagnosis Swallowing difficulty Diagnosis Progress(for reassessment Continues documentation) Is patient on ventilator? No Is Patient Ambulatory and/or Out of Bed No REE-([facility]-confined to bed) 1987.988 Kcal/Kg value to use for calculation 20 Approximate Energy Requirements Using 1842 kcal/Kg Calculation Used for Recommendations Kcal/kg Additional Notes Protein: (1-1.2g/kg) 84-101g Fluid: 1 ml/kcal Nutrition Intervention Change Diet Order: continue Nutrition Support: Nepro at 40ml/hour. For hyponatremia flush 50 ml q4h, once resolved resume flush at 170 ml q4h Kcal 1,728 Protein (gm) 78 Fluid (mL) 698 Goal #1 Meet at least 75% of protein and energy needs via TF Anticipated Discharge Needs: continue TF regimen Follow-Up By: 10/26/20 Additional Comments F/u: TF at goal and tolerance - Attestation Statement I have reviewed and agreed w/ Malnutrition eval & tx plan: Yes <TJ GORMAN - Last Filed: 10/24/20 09:06> History Interval history: I saw and evaluated the patient. Discussed with the nurse practitioner and agree with their findings and plan as documented in this note. Hospitalist Physical - Constitutional Vitals: Temp Pulse Resp BP Pulse Ox 97.9 F 91 H 30 H 115/66 98 10/24/20 07:00 10/24/20 07:51 10/24/20 06:31 10/24/20 07:51 10/24/20 07:51 HEART Score - HEART Score Troponin: Troponin T < 0.010 ng/mL (0.00-0.029) 10/02/20 23:17 Results - Labs CBC & Chem 7: 10/24/20 05:27 10/24/20 05:27 Labs: Laboratory Last Values WBC 8.7 K/mm3 (4.5-11.0) 10/24/20 05:27 RBC 2.98 M/mm3 (3.65-5.03) L 10/24/20 05:27 Hgb 7.4 gm/dl (11.8-15.2) L 10/24/20 05:27 Hct 21.8 % (35.5-45.6) L 10/24/20 05:27 MCV 73 fl (84-94) L 10/24/20 05:27 MCH 25 pg (28-32) L 10/24/20 05:27 MCHC 34 % (32-34) 10/24/20 05:27 RDW 32.2 % (13.2-15.2) H 10/24/20 05:27 Plt Count 56 K/mm3 (140-440) L 10/24/20 05:27 Lymph % (Auto) Consulting Senior Practice Director 10/10/20 10:58 [place] % (Auto) 8.3 % (0.0-7.3) H 10/15/20 05:50 Eos % (Auto) 0.3 % (0.0-4.3) 10/15/20 05:50 Baso % (Auto) Consulting Senior Practice Director 10/10/20 10:58 Lymph # (Auto) Consulting Senior Practice Director 10/10/20 10:58 [place] # (Auto) 1.3 K/mm3 (0.0-0.8) H 10/15/20 05:50 Eos # (Auto) 0.0 K/mm3 (0.0-0.4) 10/15/20 05:50 Baso # (Auto) 0.1 K/mm3 (0.0-0.1) 10/15/20 05:50 Add Manual Diff Complete 10/23/20 05:35 Total Counted 100 10/23/20 05:35 Seg Neutrophils % Consulting Senior Practice Director 10/21/20 Unknown Seg Neuts % (Manual) 83.0 % (40.0-70.0) H 10/23/20 05:35 Band Neutrophils % 5.0 % 10/23/20 05:35 Lymphocytes % (Manual) 9.0 % (13.4-35.0) L 10/23/20 05:35 Reactive Lymphs % (Man) 1.0 % 10/23/20 05:35 Monocytes % (Manual) 1.0 % (0.0-7.3) 10/23/20 05:35 Eosinophils % (Manual) 1.0 % (0.0-4.3) 10/23/20 05:35 Basophils % (Manual) 2.0 % (0.0-1.8) H 10/10/20 10:58 Metamyelocytes % 11.0 % 10/17/20 04:49 Myelocytes % 7.0 % 10/17/20 04:49 Nucleated RBC % 3.0 % (0.0-0.9) H 10/23/20 05:35 Seg Neutrophils # 13.2 K/mm3 (1.8-7.7) H 10/15/20 05:50 Seg Neutrophils # Man 6.1 K/mm3 (1.8-7.7) 10/23/20 05:35 Band Neutrophils # 0.4 K/mm3 10/23/20 05:35 Lymphocytes # (Manual) 0.7 K/mm3 (1.2-5.4) L 10/23/20 05:35 Abs React Lymphs (Man) 0.1 K/mm3 10/23/20 05:35 Monocytes # (Manual) 0.1 K/mm3 (0.0-0.8) 10/23/20 05:35 Eosinophils # (Manual) 0.1 K/mm3 (0.0-0.4) 10/23/20 05:35 Basophils # (Manual) 0.0 K/mm3 (0.0-0.1) 10/23/20 05:35 Metamyelocytes # 0.0 K/mm3 10/23/20 05:35 Myelocytes # 0.0 K/mm3 10/23/20 05:35 Promyelocytes # 0.0 K/mm3 10/23/20 05:35 Blast Cells # 0.0 K/mm3 10/23/20 05:35 WBC Morphology Not Reportable 10/23/20 05:35 Hypersegmented Neuts Not Reportable 10/23/20 05:35 Hyposegmented Neuts Not Reportable 10/23/20 05:35 Hypogranular Neuts Not Reportable 10/23/20 05:35 Smudge Cells Not Reportable 10/23/20 05:35 Toxic Granulation 1+ 10/23/20 05:35 Toxic Vacuolation 1+ 10/23/20 05:35 Dohle Bodies 1+ 10/23/20 05:35 Pelger-Huet Anomaly Not Reportable 10/23/20 05:35 Andrés Rods Not Reportable 10/23/20 05:35 Platelet Estimate Consistent w auto 10/23/20 05:35 Clumped Platelets Not Reportable 10/23/20 05:35 Plt Clumps, EDTA Not Reportable 10/23/20 05:35 Large Platelets Not Reportable 10/23/20 05:35 Giant Platelets Not Reportable 10/23/20 05:35 Platelet Satelliting Not Reportable 10/23/20 05:35 Plt Morphology Comment Not Reportable 10/23/20 05:35 RBC Morphology Not Reportable 10/23/20 05:35 Dimorphic RBCs Not Reportable 10/23/20 05:35 Polychromasia 1+ 10/23/20 05:35 Hypochromasia 2+ 10/23/20 05:35 Poikilocytosis 2+ 10/23/20 05:35 Anisocytosis 3+ 10/23/20 05:35 Microcytosis Not Reportable 10/23/20 05:35 Macrocytosis Not Reportable 10/23/20 05:35 Spherocytes 1+ 10/23/20 05:35 Pappenheimer Bodies Not Reportable 10/23/20 05:35 Sickle Cells Not Reportable 10/23/20 05:35 Target Cells 1+ 10/23/20 05:35 Tear Drop Cells Not Reportable 10/23/20 05:35 Ovalocytes Not Reportable 10/23/20 05:35 Helmet Cells Not Reportable 10/23/20 05:35 [place] Bodies Not Reportable 10/23/20 05:35 [place] Rings Not Reportable 10/23/20 05:35 Norbert Cells Not Reportable 10/23/20 05:35 Bite Cells Not Reportable 10/23/20 05:35 Crenated Cell Not Reportable 10/23/20 05:35 Elliptocytes Not Reportable 10/23/20 05:35 Acanthocytes (Spur) 1+ 10/23/20 05:35 Rouleaux Not Reportable 10/23/20 05:35 Hemoglobin C Crystals Not Reportable 10/23/20 05:35 Schistocytes Not Reportable 10/23/20 05:35 Malaria parasites Not Reportable 10/23/20 05:35 Dereck Bodies Not Reportable 10/23/20 05:35 Hem Pathologist Commnt No 10/23/20 05:35 PT 20.4 Sec. (12.2-14.9) H 10/24/20 05:27 INR 1.70 (0.87-1.13) H 10/24/20 05:27 APTT 61.4 Sec. (24.2-36.6) H* 10/21/20 Unknown Thrombin Time 17.8 Sec. (15.1-19.6) 10/02/20 23:17 Fibrinogen 482 mg/dl (211-480) H 10/21/20 Unknown D-Dimer 1992.93 ng/mlDDU (0-234) H 10/21/20 Unknown ABG pH 7.490 (7.320-7.450) H 10/24/20 03:00 POC ABG pCO2 26.8 mmHg (32.0-48.0) L 10/24/20 03:00 POC ABG pO2 Not Reportable 10/24/20 03:00 POC ABG HCO3 20.0 10/24/20 03:00 ABG O2 Saturation 84.6 (0-100) 10/24/20 03:00 POC ABG Base Excess -3.5 10/24/20 03:00 ABG Hemoglobin 3.3 (12.0-17.5) L 10/24/20 03:00 ABG Oxyhemoglobin 83.6 (94-98) L 10/24/20 03:00 ABG Methemoglobin 0.3 (0.0-1.5) 10/24/20 03:00 ABG Sodium 118.0 mmol/L (136.0-145.0) L 10/24/20 03:00 ABG Potassium 3.6 mmol/L (3.40-4.50) 10/24/20 03:00 ABG Chloride 97.0 mmol/L (98-107) L 10/24/20 03:00 ABG Glucose 89 mg/dL (65-95) 10/24/20 03:00 Carboxyhemoglobin 0.9 (0.5-1.5) 10/24/20 03:00 FiO2 % 40.0 10/24/20 03:00 Sodium 123 mmol/L (137-145) L 10/24/20 05:27 Potassium 3.5 mmol/L (3.6-5.0) L 10/24/20 05:27 Chloride 93.3 mmol/L (98-107) L 10/24/20 05:27 Carbon Dioxide 20 mmol/L (22-30) L 10/24/20 05:27 Anion Gap 13 mmol/L 10/24/20 05:27 BUN 66 mg/dL (9-20) H 10/24/20 05:27 Creatinine 3.9 mg/dL (0.8-1.3) H 10/24/20 05:27 Estimated GFR 18 ml/min 10/24/20 05:27 BUN/Creatinine Ratio 17 % 10/24/20 05:27 Glucose 98 mg/dL (75-100) 10/24/20 05:27 POC Glucose > 600 mg/dL (70-105) H 10/23/20 21:01 Hemoglobin A1c 5.2 % (4-6) 10/03/20 05:57 Osmolality 267 Mosm/kg 10/07/20 13:54 Lactic Acid 1.50 mmol/L (0.7-2.0) 10/03/20 04:43 Calcium 8.1 mg/dL (8.4-10.2) L 10/24/20 05:27 Phosphorus 2.80 mg/dL (2.5-4.5) 10/23/20 05:35 Magnesium 2.10 mg/dL (1.7-2.3) 10/23/20 05:35 Iron 42 ug/dL (49-181) L 10/03/20 05:57 TIBC 305 mcg/dL (250-450) 10/03/20 05:57 Total Bilirubin 0.80 mg/dL (0.1-1.2) 10/24/20 05:27 Direct Bilirubin 0.9 mg/dL (0-0.2) H 10/19/20 04:51 Indirect Bilirubin 0.6 mg/dL 10/19/20 04:51 AST 54 units/L (5-40) H 10/24/20 05:27 ALT 54 units/L (7-56) 10/24/20 05:27 Alkaline Phosphatase 316 units/L (35-129) H 10/24/20 05:27 Ammonia 36.0 umol/L (25-60) 10/24/20 05:27 Total Creatine Kinase 88 units/L (55-170) 10/02/20 23:17 CK-MB (CK-2) 7.5 ng/mL (0.0-4.0) H 10/02/20 23:17 CK-MB (CK-2) Rel Index 8.5 (0-4) H 10/02/20 23:17 Troponin T < 0.010 ng/mL (0.00-0.029) 10/02/20 23:17 Total Protein 5.1 g/dL (6.3-8.2) L 10/24/20 05:27 Albumin 1.7 g/dL (3.9-5) L 10/24/20 05:27 Albumin/Globulin Ratio 0.5 % 10/24/20 05:27 Lipase 17 units/L (13-60) 10/16/20 22:58 Procalcitonin 0.10 ng/mL (<0.15) 10/10/20 10:58 TSH 2.130 mlU/mL (0.270-4.200) 10/07/20 13:54 Total Cortisol 17.4 mcg/dL () 10/09/20 02:46 Arterial Blood Glucose 89 mg/dL (65-95) 10/24/20 03:00 Arterial Blood Ionized Calcium 4.5 mg/dL (4.6-5.3) L 10/24/20 03:00 Urine Eosinophils None seen (None Seen) 10/14/20 Unknown Urine Osmolality 223 Mosm/kg 10/07/20 Unknown Urine Creatinine 144.2 mg/dL (0.1-20.0) H 10/14/20 Unknown Protein/Creatinin Ratio 0.67 10/14/20 Unknown Urine Sodium 10 mmol/L 10/14/20 Unknown Urine Total Protein 97 mg/dL (5-11.8) H 10/14/20 Unknown Salicylates < 0.3 mg/dL (2.8-20.0) L 10/02/20 23:17 Acetaminophen 5.0 ug/mL (10.0-30.0) L 10/02/20 23:17 Plasma/Serum Alcohol < 0.01 % (0-0.07) 10/02/20 23:17 Coronavirus (PCR) Negative (Negative) 10/14/20 08:00 Blood Type O POSITIVE 10/22/20 15:05 Antibody Screen Negative 10/18/20 19:08 Crossmatch See Detail 10/18/20 19:08 Munoz/IV: Voiding Method Indwelling Catheter Active Medications - Current Medications Current Medications: Generic Name Dose Route Start Last Admin Trade Name Freq PRN Reason Stop Dose Admin Acetaminophen 650 mg 10/03/20 02:10 10/06/20 15:28 Acetaminophen 325 Mg Tab PO 650 mg Q4H PRN Administration Pain MILD(1-3)/Fever >100.5/ROMERO Al Hydrox/Mg Hydrox/Simethicone 30 ml 10/03/20 02:10 Alum-Mag Hydroxide-Simethicone [phone]/5ml Oral Liqd 30 Ml PO Q4H PRN Indigestion Lipase/Protease/Amylase 1 each 10/03/20 16:51 Lipase 10,500/Protease 25,000/Amylase 43,750 (Units) Dr Reis FEEDTUBE PRN PRN For Clogged Feeding Tube Dextrose 50 ml 10/16/20 12:42 10/21/20 17:39 Dextrose 50% In Water (25gm) 50 Ml Syringe IV 50 ml Q30MIN PRN Administration Hypoglycemia Protocol Fentanyl 50 mcg 10/22/20 10:00 Fentanyl 100 Mcg/2 Ml Inj IV Q4HR PRN Pain , Severe (7-10) Ferrous Sulfate 308 mg 10/16/20 10:00 10/23/20 09:45 Ferrous Sulfate 308 Mg (62mg Elemental Iron) / 7 Ml Elixir FEEDTUBE 308 mg DAILY JOSE Administration Folic Acid 1 mg 10/03/20 10:00 10/23/20 09:45 Folic Acid 1 Mg Tab PO 1 mg QDAY JOSE Administration Hydrocortisone Sodium Succinate 100 mg 10/19/20 18:00 10/24/20 02:12 Hydrocortisone Sod Succ 100 Mg/2 Ml Vial IV 100 mg Q8H JOSE Administration Levetiracetam 250 mg/ Dextrose 102.5 mls @ 400 mls/hr 10/10/20 22:00 10/23/20 21:40 IV 400 mls/hr Q12HR JOSE Administration Vasopressin 20 unit/ Sodium 101 mls @ 9.09 mls/hr 10/16/20 13:00 10/24/20 00:30 Chloride IV 0 units/min TITR JOSE 0 mls/hr Titration Protocol 0.03 UNITS/MIN Phenylephrine HCl 100 mg/ 100 mls @ 3 mls/hr 10/16/20 18:00 10/20/20 11:50 Sodium Chloride IV 0 mcg/min TITR JOSE 0 mls/hr Titration Protocol 50 MCG/MIN NORepinephrine/NS 8 MG-250 ML 8 mg in 250 mls @ 3.75 mls/hr 10/16/20 19:00 10/21/20 16:56 Norepinephrine/Ns 8 Mg-250 Ml (Double Conc) IV 0 mcg/min TITRATE JOSE 0 mls/hr Titration Protocol 2 MCG/MIN Dobutamine HCl/Dextrose 500 mg in 250 mls @ 6.908 mls/hr 10/16/20 19:00 10/23/20 21:29 Dobutrex Drip 500mg/D5w 250ml IV 2.5 mcg/kg/min DIRECT JOSE 6.908 mls/hr Administration Protocol 2.5 MCG/KG/MIN Epinephrine 8 mg/ Sodium 250 mls @ 0 mls/hr 10/16/20 23:45 10/17/20 11:33 Chloride IV 0 mls/hr TITR JOSE Infusion Furosemide 100 mg/ Sodium 100 mls @ 5 mls/hr 10/21/20 08:00 10/23/20 21:40 Chloride IV 5 mls/hr TITR JOSE Administration As Directed Magnesium Hydroxide 30 ml 10/03/20 02:10 Magnesium Hydroxide (Mom) Oral Liqd Udc PO Q4H PRN Constipation Pantoprazole Sodium 40 mg 10/04/20 15:00 10/23/20 09:45 Pantoprazole 40 Mg Inj IV 40 mg QDAY JOSE Administration Potassium Chloride 40 meq 10/24/20 08:58 Potassium Chloride 20 Meq Packet FEEDTUBE 10/24/20 08:59 ONCE ONE Promethazine HCl 25 mg 10/03/20 02:10 Promethazine 25 Mg Rect Supp CA Q6H PRN N/V IF NPO AND NO IV ACCESS Senna 8.6 mg 10/03/20 02:10 Sennosides 8.6 Mg Tab PO Q12HR PRN Constipation Simple Syrup 15 ml 10/03/20 16:51 10/19/20 02:08 Simple Syrup 15 Ml FEEDTUBE 15 ml PRN PRN Administration Hypoglycemia Simple Syrup 30 ml 10/03/20 16:51 10/16/20 22:02 Simple Syrup 15 Ml FEEDTUBE 30 ml PRN PRN Administration Hypoglycemia Sodium Bicarbonate 325 mg 10/03/20 16:51 Sodium Bicarbonate 325 Mg Tab FEEDTUBE PRN PRN For Clogged Feeding Tube Nutrition/Malnutrition Assess - Dietary Evaluation Nutrition/Malnutrition Findings: Nutrition Notes Start: 10/03/20 08:51 Freq: Status: Active Protocol: Document 10/23/20 10:14 (Rec: 10/23/20 10:17 [email or web address]) Nutrition Notes Initial or Follow up Reassessment Current Diagnosis Diabetes Other Pertinent Diagnosis AMS, hypothermia, pneu, anemia , atherosclerotic cerebrovascular disease Current Diet Nepro 1.8 at 40 ml/hr Labs/Tests Na 128 BUN 56 Cr 3.4 Pertinent Medications Vasopressin Lasix Height 5 ft 10 in Weight 92.1 kg [place] Body Weight (kg) 75.45 BMI 29.1 Weight Status Overweight Subjective/Other Information Pt tolerating TF at 20 ml/hr. TF was not increased due to pt maxed out on pressors. Per RN , she recently increased TF to 30 ml/hr with a goal of 40 ml /hr. Percent of energy/protein needs met: 47%/46% Burn Absent Trauma Absent Difficulty In Swallowing Current % PO Negligible Minimum of two criteria No Fluid Accumulation Moderate to Severe (severe) #1 Nutrition Diagnosis Swallowing difficulty Diagnosis Progress(for reassessment Continues documentation) Is patient on ventilator? No Is Patient Ambulatory and/or Out of Bed No REE-([facility]-confined to bed) 1987.988 Kcal/Kg value to use for calculation 20 Approximate Energy Requirements Using 1842 kcal/Kg Calculation Used for Recommendations Kcal/kg Additional Notes Protein: (1-1.2g/kg) 84-101g Fluid: 1 ml/kcal Nutrition Intervention Change Diet Order: continue Nutrition Support: Nepro at 40ml/hour. For hyponatremia flush 50 ml q4h, once resolved resume flush at 170 ml q4h Kcal 1,728 Protein (gm) 78 Fluid (mL) 698 Goal #1 Meet at least 75% of protein and energy needs via TF Anticipated Discharge Needs: continue TF regimen Follow-Up By: 10/26/20 Additional Comments F/u: TF at goal and tolerance
[2020-10-23] MEDS: DOBUTamine/D5W 500 MG/250 ML 500 MG/250 ML BAG IV SCH (21:29)
[2020-10-24] MEDS: HYDROCORTISONE SOD SUCC 100 MG/2 ML VIAL IV SCH ×3 (02:12→18:24)
[2020-10-24 05:55] LABS: Albumin 1.7 g/dL (3.9-5); Calcium 8.1 mg/dL (8.4-10.2)
[2020-10-24 05:56] LABS: Hematocrit 21.8 % (35.5-45.6); Hemoglobin 7.4 gm/dl (11.8-15.2); Mean Corpuscular HGB Conc 34 % (32-34); Mean Corpuscular Volume 73 fl (84-94); Red Blood Count 2.98 M/mm3 (3.65-5.03)
[2020-10-24 06:03] LABS: INR 1.7 (0.87-1.13); Red Cell Distribution Width 32.2 % (13.2-15.2)
[2020-10-24 07:24] LABS: Platelet Count 56 K/mm3 (140-440)
--- NOTE | 2020-10-24 09:00 | Progress Note ---
Assessment and Plan Assessment and plan: Assessment and Plan Assessment and plan: This is 74-year-old male with GERD admitted with arthrosclerotic calcification, anemia and hypoglycemia. Neuro: Acute metabolic encephalopathy, significant narrowing in bilateral posterior cerebral arteries, left-sided hemiparesis with aphasia, atherosclerotic cerebrovascular disease; AMS -Avoid delirium -Patient is not sedated -Intact cough/gag -CTA head/CTA neck completed-> see results -MRI brain completed-> see results, findings suggestive of ventriculomegaly -Thiamine and folate daily -Keppra -Seizure precautions -Neurology consulted, appreciate recommendations -EEG completed which cannot rule out acute seizure with postictal state Cardio: SB-SR, hypotension, afib, HFrEF (10-15%) -currently on dobutamine -MAP goal greater than 65 -Blood pressure monitoring per protocol -PICC 10/16 -Cardiology consulted, appreciate recommendations -no anticoagulation per cards for now -S/p amiodarone; AFIB CVR -Echo completed-> see results, EF 25-30% Respiratory: Acute hypoxic respiratory failure -Patient was intubated on 10/15 -Current vent settings: Assist control tidal volume 500, rate 30, PEEP 8, 40% FiO2 SEE RT NOTES FOR WEANING -Intubated with 7.5 OETT 24 at the lips SAT WHEN ABLE -CCM following -VAP bundled -Daily CXR and ABG GI: RECENT GIB, HX oropharyngeal dysphagia, severe protein-calorie malnutrition -Nutrition consult for tube feedings -GI consulted, appreciate recommendations -GI will hold off EGD/PEG given acute clinical worsening with respiratory failure -PPI with Protonix -NGT to LIS -BOWEL REG : Hyponatremia,metabolic acidosis, acute kidney injury secondary to acute tubular necrosis, VOLUME OVERLOAD -Nephrology consulted, appreciate recommendations LIKELY HD TODAY -Monitor BMP -munoz for I&O -Serial sodium checks DO NOT OVER CORRECT -Lasix drip -DC REPLACE ELECTROLYTES NEEDED- K REPLACED Heme: Iron deficient anemia, leukocytosis, supratherapeutic INR, superfical venous thrombus, thrombocytopenia -Likely secondary to malnutrition -Iron/multivitamin supplements -Hold off EGD/colonoscopy given acute clinical worsening with respiratory failure per GI -Trend CBC -Bilateral upper and lower extremity Doppler ultrasound shows occlusive superficial venous thrombus of left basilic and cephalic vein. -Monitor INR -DIC panel negative Endo: Persistent hypoglycemia -Accu-Cheks every 4H -Hypoglycemia protocol ID: Pulmonary infiltrate in right lung, Hypothermia -Infectious disease consulted, appreciate recommendations -COVID-19 PCR negative -Monitor CBC and temperature curve -TREND CULTURE DATA -TSH 2.1 The high probability of a clinically significant, sudden or life threatening deterioration of the [multi] system(s) required my full and direct attention, intervention and personal management. The aggregate critical care time was [60] minutes. This time is in addition to time spent performing reported procedures but includes the following: [x] Data Review and interpretation [x] Patient assessment and monitoring of vital signs [x] Documentation [x] Medication orders and management Disposition Plan: icu Total Time Spent with Patient (Minutes): 60 History Interval history: This is 74-year-old male with GERD who presented with AMS and left-sided weakness on 10/03 after being found incontinent in feces and urine on bed. Windy ent was only able to answer simple questions to the EMS. Upon presentation to the ED patient was confused. CT head showed cerebral with arthrosclerotic calcification. Work-up in the emergency department revealed anemia and hypoglycemia. Patient admitted to the hospital service for further work-up. 10/03/20: CT of the head no acute finding but showed a cerebral atrophy with suspicious atrophy and atherosclerotic calcification within the distal right middle cerebral artery. Patient also noted with hemoglobin of 5.8, received 1 unit of packed RBC and ordered for tomorrow Neuro is consulted, Covid test is negative We will check stool for occult blood MRI brain ordered we will follow Will hold any oral medicine until cleared by speech or passes the bedside swallow eval Patient noted to have severe hypoglycemic, will place on D10W Follow H&H and BMP Continue current management plan as dictated in the HPI 10/04/20: no acute findings in MRI, pending EEG, s/p 3 units PRBC transfusion. follow speech JACQUELINE rivera for now, h/h stable, GI consulted - follow recommendation. 10/05/20 Patient with acute encephalopathy, severe anemia s/p PRBC transfusion. GI following. Hgb 9.8 today. Will repeat in am. Left sided weakness. MRI negative for stroke. Neurology following. 10/06/20 Patient with encephalopathy, severe anemia s/p PRBC transfusion. Hgb 9.4 today. Patient has left sided weakness but MRI neg. Patient needs PEG tube. Will talk with family. Hypokalemia. Replace Q6h X 2. Check Mg 8/28/21 Patient with encephalopathy, severe anemia s/p PRBC transfusion. Hgb 9.6 today. Patient has left sided weakness but MRI neg. Patient needs PEG tube. Will talk with family. Hyponatremia of 128. This may be due to D10% he was on prior to NG tube. Stopped 10% Dextrose. Consulted Nephrology 10/08/20 Patient with encephalopathy, severe anemia s/p PRBC transfusion. Hgb 9.6 today. Patient has left sided weakness but MRI neg. Patient needs PEG tube. Hyponatremia worse today 126. This is due to D10% resumed last night because of hypoglycemia. I discussed with Dr. Herrera. Stop 10%Dextrose. Start D5NS Spoke to daughterCindy, yesterday and gave update. She wants PEG tube placed. Discussed plan with , GI. He wants to do upper and lower endoscopy to evaluate anemia, before PEG tube 10/09/20 Patient with encephalopathy, severe anemia s/p PRBC transfusion. Hgb 10. 3 today. Patient has left sided weakness but MRI neg. Patient needs PEG tube. Hyponatremia still present Na 126 today. This is due to D10% resumed again last night because of hypoglycemia. Nephrology had recommended D5NS but 10% Dextrose restarted overnight because of hypoglycemia. Nurses unable to place NG tube. I discussed with Dr. Otero today and he will do. Spoke to Cindy hanson, yesterday and gave update. She wants PEG tube placed. Discussed plan with , GI. He wants to do upper and lower endoscopy to evaluate anemia, before PEG tube Today Na still 126. I discussed with Dr. Herrera and he recommended D10NS. I called Pharmacy. They will mix special D10NS drip. Patient had bilateral pneumonia on CXR therefore started iv Antibiotics, blood cultures. yesterday. Consulted ID 10/10/2020. Patient remains encephalopathic with hemoglobin stabilizing yesterd ay. Recheck H&H. Patient with left-sided weakness but MRI negative. Fluoroscopic NG tube placement completed yesterday. Await GI to perform EGD and colonoscopy. Follow-up hyponatremia with BMP results. Dr. Aldrich Spoke to daughterCindy, and gave update. Daughter wants PEG tube placed. Continue IV antibiotics for bilateral pneumonia. ID consulted. Follow-up procalcitonin levels. 10/11/2020. Patient's hemoglobin remained stable today at 9.5. However, patient noted to be hypotensive with systolic blood pressure of 83. Patient received NS 250 cc bolus with improvement of blood pressure systolically to 123. GI plans to perform EGD/colonoscopy tomorrow. Hyponatremia improving. Start IV fluid of normal saline at 75 cc an hour x1 L 10/12/2020. Patient noted to have some gurgling of the upper airway. NG tube was placed to low intermittent suction. Check chest x-ray and KUB to rule out aspiration and/or ileus. Continue to monitor. H/H remained stable. ID stopped antibiotics due to normal procalcitonin. Speech evaluation 10/13/2020. Patient remains encephalopathic. I discussed overall mental status with the daughter yesterday and updated her with plan of care. Neurology reports: CT angio of the head that is a significant narrowing seen in both posterior cerebral arteries - and no signs of large vessel -CT of the head no acute finding but showed a cerebral atrophy with suspicious atrophy and atherosclerotic calcification within the distal right middle cerebral artery. -MRI brain without any acute findings - EEG completed yesterday remarkable for diffuse slowing 3-4 Hz and with occassional triphasic waves , no epileptiform discharges is noted -- full report to follow -Repeat MRI brain showed no acute finding Keppra was decreased to 250 mg IV twice daily and thiamine was added x3 days. No LP for now due to lack of any inflammatory findings. Repeat EEG per neurology. Sodium level has improved. Serum creatinine has increased to 1.6 today. Avoid nephrotoxic agents and monitor I/O's daily. Salt tabs 2 g 3 times daily per nephrology 10/14/2020. Patient remains encephalopathic. MRI, EEG and CT results noted above. Continue supportive care. Defer to neurology recommendations regarding mental status/encephalopathy. Continue salt tabs per nephrology. Follow-up BMP. Avoid nephrotoxic agents and monitor I/O's daily. Continue NG tube feedings. PEG placement per GI. 10/15/2020. Patient noted to have significant respiratory distress. Patient with tachypnea, some accessory muscle use, labored breathing and coarse breath sounds and sonorous respirations. Dr. Maldonado from the emergency department intubated the patient. Dr. Floyd was consulted and notified. The patient will be transferred to the ICU and continued on mechanical ventilation. Follow-up chest x-ray. 10/16: Patient is having persistent hypoglycemia despite being on D10 23% saline at 100ml/hr. given multiple amps of D50 with minimal response. The patient IV fluids changed to D5W at 125. Repeat BMP in the p.m. 10/17: hypoglycemia better, remains on levophed, epi, neoshynephrine, dobumatine and bicarb gtt this morning. RN is slowly titrating vasopressor as tolerated. Updated daughter Mignon today and relayed new findings including posturing of BUE to pain. 10/18: Patient is being slowly weaned off of vasopressor support by RN. Patient remains on phenyl epinephrine, vasopressin, norepinephrine and amiodarone. Nephrology will resume Lasix. Patient is hyponatremic today however he is on a bicarb drip which we will add today. This evening patient noted to be anemic and have low platelets. Transfuse platelets and PRBC. NGT to suction 10/19: remains on vasopressor support, renal will reassess HD tomorrow. Patient with significant edema. Dr. Gorman spoke to family who wishes for code status to not change. 10/20: Amiodarone stopped by cardiology, patient placed on hypertonic saline by nephrology. Patient is tolerating trickle feedings at this time. Patient strep ordered for diuresis. Patient is being weaned off vasopressors as tolerated. 10/21: Patient remains on vasopressors however vasopressors are being weaned as tolerated, dobutamine drip continues, RN and [employer] updated family at bedside today via [employer]. Patient was started on Lasix drip today. Patient had hypokalemia and hypomagnesemia which were repleted. 10/22: Patient still has hyponatremia, hypokalemia, hypochloremia with slightly improving renal function. Patient remains on Lasix. Still having thrombocytopenia and was transfused with 1 unit platelet today. RN is weaning vasopressors as tolerated. Patient is on minimal vent settings. 10-23 REMAINS MECHANICALLY INTUBATED; ON LASIX AND ; CARDS FOLLOWING; [facility] FOLLOWING 10-24 WORSENING BETSY- LIKELY HD Disposition Plan: icu Total Time Spent with Patient (Minutes): 60 History Interval history: WORSENING BETSY WILL LIKELY NEED HD Hospitalist Physical - Constitutional Vitals: Temp Pulse Resp BP Pulse Ox 97.9 F 91 H 30 H 115/66 98 10/24/20 07:00 10/24/20 07:51 10/24/20 06:31 10/24/20 07:51 10/24/20 07:51 General appearance: Present: no acute distress, other (Unresponsive to painful stimuli) - EENT Eyes: Present: PERRL ENT: clear oral mucosa - Neck Neck: Present: supple, normal ROM - Respiratory Respiratory effort: normal - Cardiovascular Rhythm: regular - Extremities Extremity abnormal: edema - Abdominal General gastrointestinal: soft - Integumentary Integumentary: Present: clear, warm, dry - Psychiatric Psychiatric: other - Neurologic Neurologic: other - Allied Health Allied health notes reviewed: nursing, RT, social work, case management HEART Score - HEART Score Troponin: Troponin T < 0.010 ng/mL (0.00-0.029) 10/02/20 23:17 Results - Labs CBC & Chem 7: 10/24/20 05:27 10/24/20 05:27 Labs: Laboratory Last Values WBC 8.7 K/mm3 (4.5-11.0) 10/24/20 05:27 RBC 2.98 M/mm3 (3.65-5.03) L 10/24/20 05:27 Hgb 7.4 gm/dl (11.8-15.2) L 10/24/20 05:27 Hct 21.8 % (35.5-45.6) L 10/24/20 05:27 MCV 73 fl (84-94) L 10/24/20 05:27 MCH 25 pg (28-32) L 10/24/20 05:27 MCHC 34 % (32-34) 10/24/20 05:27 RDW 32.2 % (13.2-15.2) H 10/24/20 05:27 Plt Count 56 K/mm3 (140-440) L 10/24/20 05:27 Lymph % (Auto) Engine Boss 10/10/20 10:58 [place] % (Auto) 8.3 % (0.0-7.3) H 10/15/20 05:50 Eos % (Auto) 0.3 % (0.0-4.3) 10/15/20 05:50 Baso % (Auto) Engine Boss 10/10/20 10:58 Lymph # (Auto) Engine Boss 10/10/20 10:58 [place] # (Auto) 1.3 K/mm3 (0.0-0.8) H 10/15/20 05:50 Eos # (Auto) 0.0 K/mm3 (0.0-0.4) 10/15/20 05:50 Baso # (Auto) 0.1 K/mm3 (0.0-0.1) 10/15/20 05:50 Add Manual Diff Complete 10/23/20 05:35 Total Counted 100 10/23/20 05:35 Seg Neutrophils % Engine Boss 10/21/20 Unknown Seg Neuts % (Manual) 83.0 % (40.0-70.0) H 10/23/20 05:35 Band Neutrophils % 5.0 % 10/23/20 05:35 Lymphocytes % (Manual) 9.0 % (13.4-35.0) L 10/23/20 05:35 Reactive Lymphs % (Man) 1.0 % 10/23/20 05:35 Monocytes % (Manual) 1.0 % (0.0-7.3) 10/23/20 05:35 Eosinophils % (Manual) 1.0 % (0.0-4.3) 10/23/20 05:35 Basophils % (Manual) 2.0 % (0.0-1.8) H 10/10/20 10:58 Metamyelocytes % 11.0 % 10/17/20 04:49 Myelocytes % 7.0 % 10/17/20 04:49 Nucleated RBC % 3.0 % (0.0-0.9) H 10/23/20 05:35 Seg Neutrophils # 13.2 K/mm3 (1.8-7.7) H 10/15/20 05:50 Seg Neutrophils # Man 6.1 K/mm3 (1.8-7.7) 10/23/20 05:35 Band Neutrophils # 0.4 K/mm3 10/23/20 05:35 Lymphocytes # (Manual) 0.7 K/mm3 (1.2-5.4) L 10/23/20 05:35 Abs React Lymphs (Man) 0.1 K/mm3 10/23/20 05:35 Monocytes # (Manual) 0.1 K/mm3 (0.0-0.8) 10/23/20 05:35 Eosinophils # (Manual) 0.1 K/mm3 (0.0-0.4) 10/23/20 05:35 Basophils # (Manual) 0.0 K/mm3 (0.0-0.1) 10/23/20 05:35 Metamyelocytes # 0.0 K/mm3 10/23/20 05:35 Myelocytes # 0.0 K/mm3 10/23/20 05:35 Promyelocytes # 0.0 K/mm3 10/23/20 05:35 Blast Cells # 0.0 K/mm3 10/23/20 05:35 WBC Morphology Not Reportable 10/23/20 05:35 Hypersegmented Neuts Not Reportable 10/23/20 05:35 Hyposegmented Neuts Not Reportable 10/23/20 05:35 Hypogranular Neuts Not Reportable 10/23/20 05:35 Smudge Cells Not Reportable 10/23/20 05:35 Toxic Granulation 1+ 10/23/20 05:35 Toxic Vacuolation 1+ 10/23/20 05:35 Dohle Bodies 1+ 10/23/20 05:35 Pelger-Huet Anomaly Not Reportable 10/23/20 05:35 Andrés Rods Not Reportable 10/23/20 05:35 Platelet Estimate Consistent w auto 10/23/20 05:35 Clumped Platelets Not Reportable 10/23/20 05:35 Plt Clumps, EDTA Not Reportable 10/23/20 05:35 Large Platelets Not Reportable 10/23/20 05:35 Giant Platelets Not Reportable 10/23/20 05:35 Platelet Satelliting Not Reportable 10/23/20 05:35 Plt Morphology Comment Not Reportable 10/23/20 05:35 RBC Morphology Not Reportable 10/23/20 05:35 Dimorphic RBCs Not Reportable 10/23/20 05:35 Polychromasia 1+ 10/23/20 05:35 Hypochromasia 2+ 10/23/20 05:35 Poikilocytosis 2+ 10/23/20 05:35 Anisocytosis 3+ 10/23/20 05:35 Microcytosis Not Reportable 10/23/20 05:35 Macrocytosis Not Reportable 10/23/20 05:35 Spherocytes 1+ 10/23/20 05:35 Pappenheimer Bodies Not Reportable 10/23/20 05:35 Sickle Cells Not Reportable 10/23/20 05:35 Target Cells 1+ 10/23/20 05:35 Tear Drop Cells Not Reportable 10/23/20 05:35 Ovalocytes Not Reportable 10/23/20 05:35 Helmet Cells Not Reportable 10/23/20 05:35 [place] Bodies Not Reportable 10/23/20 05:35 [place] Rings Not Reportable 10/23/20 05:35 Norbert Cells Not Reportable 10/23/20 05:35 Bite Cells Not Reportable 10/23/20 05:35 Crenated Cell Not Reportable 10/23/20 05:35 Elliptocytes Not Reportable 10/23/20 05:35 Acanthocytes (Spur) 1+ 10/23/20 05:35 Rouleaux Not Reportable 10/23/20 05:35 Hemoglobin C Crystals Not Reportable 10/23/20 05:35 Schistocytes Not Reportable 10/23/20 05:35 Malaria parasites Not Reportable 10/23/20 05:35 Dereck Bodies Not Reportable 10/23/20 05:35 Hem Pathologist Commnt No 10/23/20 05:35 PT 20.4 Sec. (12.2-14.9) H 10/24/20 05:27 INR 1.70 (0.87-1.13) H 10/24/20 05:27 APTT 61.4 Sec. (24.2-36.6) H* 10/21/20 Unknown Thrombin Time 17.8 Sec. (15.1-19.6) 10/02/20 23:17 Fibrinogen 482 mg/dl (211-480) H 10/21/20 Unknown D-Dimer 1992.93 ng/mlDDU (0-234) H 10/21/20 Unknown ABG pH 7.490 (7.320-7.450) H 10/24/20 03:00 POC ABG pCO2 26.8 mmHg (32.0-48.0) L 10/24/20 03:00 POC ABG pO2 Not Reportable 10/24/20 03:00 POC ABG HCO3 20.0 10/24/20 03:00 ABG O2 Saturation 84.6 (0-100) 10/24/20 03:00 POC ABG Base Excess -3.5 10/24/20 03:00 ABG Hemoglobin 3.3 (12.0-17.5) L 10/24/20 03:00 ABG Oxyhemoglobin 83.6 (94-98) L 10/24/20 03:00 ABG Methemoglobin 0.3 (0.0-1.5) 10/24/20 03:00 ABG Sodium 118.0 mmol/L (136.0-145.0) L 10/24/20 03:00 ABG Potassium 3.6 mmol/L (3.40-4.50) 10/24/20 03:00 ABG Chloride 97.0 mmol/L (98-107) L 10/24/20 03:00 ABG Glucose 89 mg/dL (65-95) 10/24/20 03:00 Carboxyhemoglobin 0.9 (0.5-1.5) 10/24/20 03:00 FiO2 % 40.0 10/24/20 03:00 Sodium 123 mmol/L (137-145) L 10/24/20 05:27 Potassium 3.5 mmol/L (3.6-5.0) L 10/24/20 05:27 Chloride 93.3 mmol/L (98-107) L 10/24/20 05:27 Carbon Dioxide 20 mmol/L (22-30) L 10/24/20 05:27 Anion Gap 13 mmol/L 10/24/20 05:27 BUN 66 mg/dL (9-20) H 10/24/20 05:27 Creatinine 3.9 mg/dL (0.8-1.3) H 10/24/20 05:27 Estimated GFR 18 ml/min 10/24/20 05:27 BUN/Creatinine Ratio 17 % 10/24/20 05:27 Glucose 98 mg/dL (75-100) 10/24/20 05:27 POC Glucose > 600 mg/dL (70-105) H 10/23/20 21:01 Hemoglobin A1c 5.2 % (4-6) 10/03/20 05:57 Osmolality 267 Mosm/kg 10/07/20 13:54 Lactic Acid 1.50 mmol/L (0.7-2.0) 10/03/20 04:43 Calcium 8.1 mg/dL (8.4-10.2) L 10/24/20 05:27 Phosphorus 2.80 mg/dL (2.5-4.5) 10/23/20 05:35 Magnesium 2.10 mg/dL (1.7-2.3) 10/23/20 05:35 Iron 42 ug/dL (49-181) L 10/03/20 05:57 TIBC 305 mcg/dL (250-450) 10/03/20 05:57 Total Bilirubin 0.80 mg/dL (0.1-1.2) 10/24/20 05:27 Direct Bilirubin 0.9 mg/dL (0-0.2) H 10/19/20 04:51 Indirect Bilirubin 0.6 mg/dL 10/19/20 04:51 AST 54 units/L (5-40) H 10/24/20 05:27 ALT 54 units/L (7-56) 10/24/20 05:27 Alkaline Phosphatase 316 units/L (35-129) H 10/24/20 05:27 Ammonia 36.0 umol/L (25-60) 10/24/20 05:27 Total Creatine Kinase 88 units/L (55-170) 10/02/20 23:17 CK-MB (CK-2) 7.5 ng/mL (0.0-4.0) H 10/02/20 23:17 CK-MB (CK-2) Rel Index 8.5 (0-4) H 10/02/20 23:17 Troponin T < 0.010 ng/mL (0.00-0.029) 10/02/20 23:17 Total Protein 5.1 g/dL (6.3-8.2) L 10/24/20 05:27 Albumin 1.7 g/dL (3.9-5) L 10/24/20 05:27 Albumin/Globulin Ratio 0.5 % 10/24/20 05:27 Lipase 17 units/L (13-60) 10/16/20 22:58 Procalcitonin 0.10 ng/mL (<0.15) 10/10/20 10:58 TSH 2.130 mlU/mL (0.270-4.200) 10/07/20 13:54 Total Cortisol 17.4 mcg/dL () 10/09/20 02:46 Arterial Blood Glucose 89 mg/dL (65-95) 10/24/20 03:00 Arterial Blood Ionized Calcium 4.5 mg/dL (4.6-5.3) L 10/24/20 03:00 Urine Eosinophils None seen (None Seen) 10/14/20 Unknown Urine Osmolality 223 Mosm/kg 10/07/20 Unknown Urine Creatinine 144.2 mg/dL (0.1-20.0) H 10/14/20 Unknown Protein/Creatinin Ratio 0.67 10/14/20 Unknown Urine Sodium 10 mmol/L 10/14/20 Unknown Urine Total Protein 97 mg/dL (5-11.8) H 10/14/20 Unknown Salicylates < 0.3 mg/dL (2.8-20.0) L 10/02/20 23:17 Acetaminophen 5.0 ug/mL (10.0-30.0) L 10/02/20 23:17 Plasma/Serum Alcohol < 0.01 % (0-0.07) 10/02/20 23:17 Coronavirus (PCR) Negative (Negative) 10/14/20 08:00 Blood Type O POSITIVE 10/22/20 15:05 Antibody Screen Negative 10/18/20 19:08 Crossmatch See Detail 10/18/20 19:08 Munoz/IV: Voiding Method Indwelling Catheter Active Medications - Current Medications Current Medications: Generic Name Dose Route Start Last Admin Trade Name Freq PRN Reason Stop Dose Admin Acetaminophen 650 mg 10/03/20 02:10 10/06/20 15:28 Acetaminophen 325 Mg Tab PO 650 mg Q4H PRN Administration Pain MILD(1-3)/Fever >100.5/ROMERO Al Hydrox/Mg Hydrox/Simethicone 30 ml 10/03/20 02:10 Alum-Mag Hydroxide-Simethicone [id number]/5ml Oral Liqd 30 Ml PO Q4H PRN Indigestion Lipase/Protease/Amylase 1 each 10/03/20 16:51 Lipase 10,500/Protease 25,000/Amylase 43,750 (Units) Dr Reis FEEDTUBE PRN PRN For Clogged Feeding Tube Dextrose 50 ml 10/16/20 12:42 10/21/20 17:39 Dextrose 50% In Water (25gm) 50 Ml Syringe IV 50 ml Q30MIN PRN Administration Hypoglycemia Protocol Fentanyl 50 mcg 10/22/20 10:00 Fentanyl 100 Mcg/2 Ml Inj IV Q4HR PRN Pain , Severe (7-10) Ferrous Sulfate 308 mg 10/16/20 10:00 10/23/20 09:45 Ferrous Sulfate 308 Mg (62mg Elemental Iron) / 7 Ml Elixir FEEDTUBE 308 mg DAILY JOSE Administration Folic Acid 1 mg 10/03/20 10:00 10/23/20 09:45 Folic Acid 1 Mg Tab PO 1 mg QDAY JOSE Administration Hydrocortisone Sodium Succinate 100 mg 10/19/20 18:00 10/24/20 02:12 Hydrocortisone Sod Succ 100 Mg/2 Ml Vial IV 100 mg Q8H JOSE Administration Levetiracetam 250 mg/ Dextrose 102.5 mls @ 400 mls/hr 10/10/20 22:00 10/23/20 21:40 IV 400 mls/hr Q12HR JOSE Administration Vasopressin 20 unit/ Sodium 101 mls @ 9.09 mls/hr 10/16/20 13:00 10/24/20 00:30 Chloride IV 0 units/min TITR JOSE 0 mls/hr Titration Protocol 0.03 UNITS/MIN Phenylephrine HCl 100 mg/ 100 mls @ 3 mls/hr 10/16/20 18:00 10/20/20 11:50 Sodium Chloride IV 0 mcg/min TITR JOSE 0 mls/hr Titration Protocol 50 MCG/MIN NORepinephrine/NS 8 MG-250 ML 8 mg in 250 mls @ 3.75 mls/hr 10/16/20 19:00 10/21/20 16:56 Norepinephrine/Ns 8 Mg-250 Ml (Double Conc) IV 0 mcg/min TITRATE JOSE 0 mls/hr Titration Protocol 2 MCG/MIN Dobutamine HCl/Dextrose 500 mg in 250 mls @ 6.908 mls/hr 10/16/20 19:00 10/23/20 21:29 Dobutrex Drip 500mg/D5w 250ml IV 2.5 mcg/kg/min DIRECT JOSE 6.908 mls/hr Administration Protocol 2.5 MCG/KG/MIN Epinephrine 8 mg/ Sodium 250 mls @ 0 mls/hr 10/16/20 23:45 10/17/20 11:33 Chloride IV 0 mls/hr TITR JOSE Infusion Furosemide 100 mg/ Sodium 100 mls @ 5 mls/hr 10/21/20 08:00 10/23/20 21:40 Chloride IV 5 mls/hr TITR JOSE Administration As Directed Magnesium Hydroxide 30 ml 10/03/20 02:10 Magnesium Hydroxide (Mom) Oral Liqd Udc PO Q4H PRN Constipation Pantoprazole Sodium 40 mg 10/04/20 15:00 10/23/20 09:45 Pantoprazole 40 Mg Inj IV 40 mg QDAY JOSE Administration Promethazine HCl 25 mg 10/03/20 02:10 Promethazine 25 Mg Rect Supp OR Q6H PRN N/V IF NPO AND NO IV ACCESS Senna 8.6 mg 10/03/20 02:10 Sennosides 8.6 Mg Tab PO Q12HR PRN Constipation Simple Syrup 15 ml 10/03/20 16:51 10/19/20 02:08 Simple Syrup 15 Ml FEEDTUBE 15 ml PRN PRN Administration Hypoglycemia Simple Syrup 30 ml 10/03/20 16:51 10/16/20 22:02 Simple Syrup 15 Ml FEEDTUBE 30 ml PRN PRN Administration Hypoglycemia Sodium Bicarbonate 325 mg 10/03/20 16:51 Sodium Bicarbonate 325 Mg Tab FEEDTUBE PRN PRN For Clogged Feeding Tube Nutrition/Malnutrition Assess - Dietary Evaluation Nutrition/Malnutrition Findings: Nutrition Notes Start: 10/03/20 08:51 Freq: Status: Active Protocol: Document 10/23/20 10:14 (Rec: 10/23/20 10:17 [id number]) Nutrition Notes Initial or Follow up Reassessment Current Diagnosis Diabetes Other Pertinent Diagnosis AMS, hypothermia, pneu, anemia , atherosclerotic cerebrovascular disease Current Diet Nepro 1.8 at 40 ml/hr Labs/Tests Na 128 BUN 56 Cr 3.4 Pertinent Medications Vasopressin Lasix Height 5 ft 10 in Weight 92.1 kg [place] Body Weight (kg) 75.45 BMI 29.1 Weight Status Overweight Subjective/Other Information Pt tolerating TF at 20 ml/hr. TF was not increased due to pt maxed out on pressors. Per RN , she recently increased TF to 30 ml/hr with a goal of 40 ml /hr. Percent of energy/protein needs met: 47%/46% Burn Absent Trauma Absent Difficulty In Swallowing Current % PO Negligible Minimum of two criteria No Fluid Accumulation Moderate to Severe (severe) #1 Nutrition Diagnosis Swallowing difficulty Diagnosis Progress(for reassessment Continues documentation) Is patient on ventilator? No Is Patient Ambulatory and/or Out of Bed No REE-([facility]-confined to bed) 1987.988 Kcal/Kg value to use for calculation 20 Approximate Energy Requirements Using 1842 kcal/Kg Calculation Used for Recommendations Kcal/kg Additional Notes Protein: (1-1.2g/kg) 84-101g Fluid: 1 ml/kcal Nutrition Intervention Change Diet Order: continue Nutrition Support: Nepro at 40ml/hour. For hyponatremia flush 50 ml q4h, once resolved resume flush at 170 ml q4h Kcal 1,728 Protein (gm) 78 Fluid (mL) 698 Goal #1 Meet at least 75% of protein and energy needs via TF Anticipated Discharge Needs: continue TF regimen Follow-Up By: 10/26/20 Additional Comments F/u: TF at goal and tolerance - Attestation Statement I have reviewed and agreed w/ Malnutrition eval & tx plan: Yes
[2020-10-24] MEDS: MULTIVITAMIN / MINERAL ORAL LIQUID 15 ML PO SCH (09:42)
[2020-10-24] MEDS: levETIRAcetam 250 MG in DEXTROSE 5% IN WATER 100 ML IV SCH ×2 (09:42→22:04)
[2020-10-24] MEDS: FERROUS SULFATE 308 MG (62mg Elemental Iron) / 7 ML ELIXIR FEEDTUBE SCH (09:43)
[2020-10-24] MEDS: PANTOPRAZOLE 40 MG INJ IV SCH (09:43)
[2020-10-24] MEDS: FOLIC ACID 1 MG TAB PO SCH (09:43)
[2020-10-24] MEDS ORDERED: POTASSIUM CHLORIDE 20 MEQ PACKET FEEDTUBE ONE (10:00)
--- NOTE | 2020-10-24 10:30 | Progress Note ---
Assessment and Plan Acute encephalopathy Hyponatremia Hypothermia, resolved Pulmonary infiltrate in right lung on CXR Atherosclerotic cerebrovascular disease Severe anemia -possible GI bleed Severe protein-calorie malnutrition Acute Renal Failure Hypokalemia Plan: discussed with ICU team,HD to be started today for volume overload with decreased UOP and rising BUN and Cr No salt tabs as have CHF. Echo done 10/04/20 showed LVEF 25-30% Avoid correction of sodium more than 8 mmol/l in 24 hours Obtain renal ultrasound Replete potassium as needed Avoid nephrotoxic agents Obtain daily weights Monitor I/O's daily Subjective Date of service: 10/24/20 Principal diagnosis: Ac hypoxemic resp failure; Pneumonia; BETSY; Ac. encephalopathy Interval history: intubated, no family at bedside Objective - Vital Signs Vital signs: Vital Signs - 12hr 10/23/20 10/23/20 10/23/20 22:30 22:45 23:00 Temperature Pulse Rate 90 98 H 90 Respiratory 30 H 18 20 Rate Blood Pressure 99/58 105/50 104/52 O2 Sat by Pulse 100 99 99 Oximetry 10/23/20 10/23/20 10/23/20 23:15 23:30 23:45 Temperature 97.9 F Pulse Rate 101 H 103 H 86 Respiratory 21 30 H 24 Rate Blood Pressure 113/51 113/51 108/55 O2 Sat by Pulse 99 99 99 Oximetry 10/23/20 10/24/20 10/24/20 23:51 00:00 00:15 Temperature Pulse Rate 97 H 92 H 95 H Respiratory 30 H 30 H Rate Blood Pressure 105/48 98/53 101/50 O2 Sat by Pulse 98 99 99 Oximetry 10/24/20 10/24/20 10/24/20 00:30 00:35 00:46 Temperature Pulse Rate 100 H 111 H Respiratory 30 H 30 H 30 H Rate Blood Pressure 112/63 112/63 O2 Sat by Pulse 99 99 100 Oximetry 10/24/20 10/24/20 10/24/20 01:00 01:15 01:30 Temperature Pulse Rate 88 93 H 88 Respiratory 30 H 30 H 30 H Rate Blood Pressure 104/59 114/63 119/59 O2 Sat by Pulse 98 98 98 Oximetry 10/24/20 10/24/20 10/24/20 01:45 02:00 02:15 Temperature Pulse Rate 97 H 96 H 95 H Respiratory 30 H 30 H 18 Rate Blood Pressure 125/61 120/67 107/74 O2 Sat by Pulse 99 99 99 Oximetry 10/24/20 10/24/20 10/24/20 02:30 02:45 03:00 Temperature Pulse Rate 106 H 101 H 92 H Respiratory 30 H 30 H 30 H Rate Blood Pressure 103/70 114/60 120/61 O2 Sat by Pulse 99 99 99 Oximetry 10/24/20 10/24/20 10/24/20 03:15 03:18 03:30 Temperature 97.2 F L Pulse Rate 92 H 91 H Respiratory 30 H 30 H Rate Blood Pressure 115/66 117/64 O2 Sat by Pulse 99 99 Oximetry 10/24/20 10/24/20 10/24/20 03:42 03:45 04:00 Temperature Pulse Rate 91 H 90 98 H Respiratory 30 H 22 30 H Rate Blood Pressure 125/69 116/69 O2 Sat by Pulse 99 99 98 Oximetry 10/24/20 10/24/20 10/24/20 04:15 04:17 04:30 Temperature Pulse Rate 99 H 95 H 91 H Respiratory 30 H 30 H Rate Blood Pressure 124/64 124/64 117/64 O2 Sat by Pulse 99 98 100 Oximetry 10/24/20 10/24/20 10/24/20 04:45 05:00 05:15 Temperature Pulse Rate 105 H 96 H 94 H Respiratory 30 H 23 30 H Rate Blood Pressure 139/73 139/73 128/62 O2 Sat by Pulse 100 100 98 Oximetry 10/24/20 10/24/20 10/24/20 05:30 05:45 06:00 Temperature Pulse Rate 93 H 95 H 93 H Respiratory 30 H 30 H 30 H Rate Blood Pressure 120/66 128/68 123/72 O2 Sat by Pulse 99 99 98 Oximetry 10/24/20 10/24/20 10/24/20 06:15 06:30 06:31 Temperature Pulse Rate 90 91 H 91 H Respiratory 30 H 30 H 30 H Rate Blood Pressure 124/64 126/64 O2 Sat by Pulse 99 99 99 Oximetry 10/24/20 10/24/20 07:00 07:51 Temperature 97.9 F Pulse Rate 91 H Respiratory Rate Blood Pressure 115/66 O2 Sat by Pulse 98 Oximetry - Lab 10/24/20 05:27 10/24/20 05:27 Most recent lab results ABG pH 7.490 (7.320-7.450) H 10/24/20 03:00 ABG O2 Saturation 84.6 (0-100) 10/24/20 03:00 Calcium 8.1 mg/dL (8.4-10.2) L 10/24/20 05:27 Phosphorus 2.80 mg/dL (2.5-4.5) 10/23/20 05:35 Magnesium 2.10 mg/dL (1.7-2.3) 10/23/20 05:35 Urine Creatinine 144.2 mg/dL (0.1-20.0) H 10/14/20 Unknown Urine Sodium 10 mmol/L 10/14/20 Unknown Urine Total Protein 97 mg/dL (5-11.8) H 10/14/20 Unknown Medications & Allergies - Medications Allergies/Adverse Reactions: Allergies No Known Allergies Allergy (Unverified 10/03/20 12:27) Home Medications: Home Medications Medication Instructions Recorded Confirmed Last Taken Type Unobtainable 10/10/20 10/10/20 Unknown History Active Medications: Generic Name Dose Route Start Last Admin Trade Name Freq PRN Reason Stop Dose Admin Acetaminophen 650 mg 10/03/20 02:10 10/06/20 15:28 Acetaminophen 325 Mg Tab PO 650 mg Q4H PRN Administration Pain MILD(1-3)/Fever >100.5/ROMERO Al Hydrox/Mg Hydrox/Simethicone 30 ml 10/03/20 02:10 Alum-Mag Hydroxide-Simethicone [phone]/5ml Oral Liqd 30 Ml PO Q4H PRN Indigestion Lipase/Protease/Amylase 1 each 10/03/20 16:51 Lipase 10,500/Protease 25,000/Amylase 43,750 (Units) Dr Reis FEEDTUBE PRN PRN For Clogged Feeding Tube Dextrose 50 ml 10/16/20 12:42 10/21/20 17:39 Dextrose 50% In Water (25gm) 50 Ml Syringe IV 50 ml Q30MIN PRN Administration Hypoglycemia Protocol Fentanyl 50 mcg 10/22/20 10:00 Fentanyl 100 Mcg/2 Ml Inj IV Q4HR PRN Pain , Severe (7-10) Ferrous Sulfate 308 mg 10/16/20 10:00 10/24/20 09:43 Ferrous Sulfate 308 Mg (62mg Elemental Iron) / 7 Ml Elixir FEEDTUBE 308 mg DAILY JOSE Administration Folic Acid 1 mg 10/03/20 10:00 10/24/20 09:43 Folic Acid 1 Mg Tab PO 1 mg QDAY JOSE Administration Hydrocortisone Sodium Succinate 50 mg 10/24/20 10:00 10/24/20 09:42 Hydrocortisone Sod Succ 100 Mg/2 Ml Vial IV 10/24/20 23:59 50 mg Q8H JOSE Administration Hydrocortisone Sodium Succinate 50 mg 10/25/20 10:00 Hydrocortisone Sod Succ 100 Mg/2 Ml Vial IV 10/25/20 22:01 Q12H JOSE Hydrocortisone Sodium Succinate 50 mg 10/26/20 10:00 Hydrocortisone Sod Succ 100 Mg/2 Ml Vial IV 10/27/20 10:01 Q24H JOSE Levetiracetam 250 mg/ Dextrose 102.5 mls @ 400 mls/hr 10/10/20 22:00 10/24/20 09:42 IV 400 mls/hr Q12HR JOSE Administration Vasopressin 20 unit/ Sodium 101 mls @ 9.09 mls/hr 10/16/20 13:00 10/24/20 00:30 Chloride IV 0 units/min TITR JOSE 0 mls/hr Titration Protocol 0.03 UNITS/MIN NORepinephrine/NS 8 MG-250 ML 8 mg in 250 mls @ 3.75 mls/hr 10/16/20 19:00 10/21/20 16:56 Norepinephrine/Ns 8 Mg-250 Ml (Double Conc) IV 0 mcg/min TITRATE JOSE 0 mls/hr Titration Protocol 2 MCG/MIN Dobutamine HCl/Dextrose 500 mg in 250 mls @ 6.908 mls/hr 10/16/20 19:00 10/23/20 21:29 Dobutrex Drip 500mg/D5w 250ml IV 2.5 mcg/kg/min DIRECT JOSE 6.908 mls/hr Administration Protocol 2.5 MCG/KG/MIN Furosemide 100 mg/ Sodium 100 mls @ 5 mls/hr 10/21/20 08:00 10/23/20 21:40 Chloride IV 5 mls/hr TITR JOSE Administration As Directed Magnesium Hydroxide 30 ml 10/03/20 02:10 Magnesium Hydroxide (Mom) Oral Liqd Udc PO Q4H PRN Constipation Pantoprazole Sodium 40 mg 10/04/20 15:00 10/24/20 09:43 Pantoprazole 40 Mg Inj IV 40 mg QDAY JOSE Administration Promethazine HCl 25 mg 10/03/20 02:10 Promethazine 25 Mg Rect Supp VA Q6H PRN N/V IF NPO AND NO IV ACCESS Senna 8.6 mg 10/03/20 02:10 Sennosides 8.6 Mg Tab PO Q12HR PRN Constipation Simple Syrup 15 ml 10/03/20 16:51 10/19/20 02:08 Simple Syrup 15 Ml FEEDTUBE 15 ml PRN PRN Administration Hypoglycemia Simple Syrup 30 ml 10/03/20 16:51 10/16/20 22:02 Simple Syrup 15 Ml FEEDTUBE 30 ml PRN PRN Administration Hypoglycemia Sodium Bicarbonate 325 mg 10/03/20 16:51 Sodium Bicarbonate 325 Mg Tab FEEDTUBE PRN PRN For Clogged Feeding Tube
--- NOTE | 2020-10-24 10:48 | Progress Note ---
Assessment and Plan Acute hypoxemic respiratory failure Bilateral pneumonia Bilateral pleural effusions Bilateral pulmonary edema Acute kidney injury Acute encephalopathy Severe protein calorie malnutrition Oropharyngeal dysphagia Anemia that is microcytic Oropharyngeal dysphagia - for vascath followerd by dialysis - will begin Midodrine for BP support - starr Amiodarone - continue stress dose steroids - continue Dobutrex for now - continue care as below otherwise; - vasopressors for MAP > 65 mmHg - VAP bundle addressed (HOB > 40 degrees) - sedation target RASS 0 to -1 - daily SAT's & SBT assessments as tolerated - continue glycemic control withh SSI for target BG 140-180 mg while critically ill; avoid hypoglycema - continue lung protective strategies - bronchodilators with pulmonary hygiene per RT - complete AB's per ID recommendations - avoid nephrotoxins, renally dose all medications - prn analgesia per pain score - Maintenance of sleep-wake cycle, avoid delirium - supportive transfusions for serum Hb < 7.0g/dl - G.I. & VTE prophylaxis - PT/OT/ROM exercises - continue mobility protocols for pressure ulcer prophylaxis - Monitor hemodynamics closely - continue other care per attending / other consultants - discharge planning ongoing concurrently COVID SPECIFIC INTERVENTIONS - COVID-19 test negative .... Re-evaluate in am & prn CONDITION: CRITICAL PROGNOSIS: GUARDED CODE STATUS: FULL CODE The high probability of a clinically significant, sudden or life-threatening deterioration of the [respiratory, cardiovascular, & neurologic] system(s) required my full and direct attention, intervention and personal management. The aggregate critical care time was [32] minutes without overlap. Time includes spent on; [x] Data Review and interpretation [x] Patient assessment and monitoring of vital signs [x] Documentation [x] Medication orders and management Subjective Date of service: 10/24/20 Principal diagnosis: Ac hypoxemic resp failure; Pneumonia; BETSY; Ac. encephalopathy Interval history: Patient is seen today for: Acute hypoxemic respiratory failure; Pneumonia; Pleural effusions; BETSY; Acute encephalopathy; Severe protein calorie malnutrition Seen and examined at bedside; 24hour events reviewed; nursing and respiratory care staff consulted; no adverse overnight events reported to me; resting in bed; remains on MVS; azotemia is persistent; AMS is persistent; remains on vasopressors; no emesis or overt aspiration Objective Vital Signs - 12hr 10/23/20 10/23/20 10/23/20 23:00 23:15 23:30 Temperature Pulse Rate 90 101 H 103 H Respiratory 20 21 30 H Rate Blood Pressure 104/52 113/51 113/51 O2 Sat by Pulse 99 99 99 Oximetry 10/23/20 10/23/20 10/24/20 23:45 23:51 00:00 Temperature 97.9 F Pulse Rate 86 97 H 92 H Respiratory 24 30 H Rate Blood Pressure 108/55 105/48 98/53 O2 Sat by Pulse 99 98 99 Oximetry 10/24/20 10/24/20 10/24/20 00:15 00:30 00:35 Temperature Pulse Rate 95 H 100 H Respiratory 30 H 30 H 30 H Rate Blood Pressure 101/50 112/63 O2 Sat by Pulse 99 99 99 Oximetry 10/24/20 10/24/20 10/24/20 00:46 01:00 01:15 Temperature Pulse Rate 111 H 88 93 H Respiratory 30 H 30 H 30 H Rate Blood Pressure 112/63 104/59 114/63 O2 Sat by Pulse 100 98 98 Oximetry 10/24/20 10/24/20 10/24/20 01:30 01:45 02:00 Temperature Pulse Rate 88 97 H 96 H Respiratory 30 H 30 H 30 H Rate Blood Pressure 119/59 125/61 120/67 O2 Sat by Pulse 98 99 99 Oximetry 10/24/20 10/24/20 10/24/20 02:15 02:30 02:45 Temperature Pulse Rate 95 H 106 H 101 H Respiratory 18 30 H 30 H Rate Blood Pressure 107/74 103/70 114/60 O2 Sat by Pulse 99 99 99 Oximetry 10/24/20 10/24/20 10/24/20 03:00 03:15 03:18 Temperature 97.2 F L Pulse Rate 92 H 92 H Respiratory 30 H 30 H Rate Blood Pressure 120/61 115/66 O2 Sat by Pulse 99 99 Oximetry 10/24/20 10/24/20 10/24/20 03:30 03:42 03:45 Temperature Pulse Rate 91 H 91 H 90 Respiratory 30 H 30 H 22 Rate Blood Pressure 117/64 125/69 O2 Sat by Pulse 99 99 99 Oximetry 10/24/20 10/24/20 10/24/20 04:00 04:15 04:17 Temperature Pulse Rate 98 H 99 H 95 H Respiratory 30 H 30 H Rate Blood Pressure 116/69 124/64 124/64 O2 Sat by Pulse 98 99 98 Oximetry 10/24/20 10/24/20 10/24/20 04:30 04:45 05:00 Temperature Pulse Rate 91 H 105 H 96 H Respiratory 30 H 30 H 23 Rate Blood Pressure 117/64 139/73 139/73 O2 Sat by Pulse 100 100 100 Oximetry 10/24/20 10/24/20 10/24/20 05:15 05:30 05:45 Temperature Pulse Rate 94 H 93 H 95 H Respiratory 30 H 30 H 30 H Rate Blood Pressure 128/62 120/66 128/68 O2 Sat by Pulse 98 99 99 Oximetry 10/24/20 10/24/20 10/24/20 06:00 06:15 06:30 Temperature Pulse Rate 93 H 90 91 H Respiratory 30 H 30 H 30 H Rate Blood Pressure 123/72 124/64 126/64 O2 Sat by Pulse 98 99 99 Oximetry 10/24/20 10/24/20 10/24/20 06:31 06:45 07:00 Temperature 97.9 F Pulse Rate 91 H 93 H 97 H Respiratory 30 H 30 H 30 H Rate Blood Pressure 123/65 123/65 O2 Sat by Pulse 99 99 99 Oximetry 10/24/20 10/24/20 10/24/20 07:15 07:30 07:45 Temperature Pulse Rate 103 H 91 H 94 H Respiratory 30 H 30 H 30 H Rate Blood Pressure 119/67 117/75 115/66 O2 Sat by Pulse 99 99 99 Oximetry 10/24/20 10/24/20 10/24/20 07:51 08:00 08:15 Temperature Pulse Rate 91 H 92 H 91 H Respiratory 18 21 Rate Blood Pressure 115/66 120/58 125/56 O2 Sat by Pulse 98 97 99 Oximetry 10/24/20 10/24/20 10/24/20 08:30 08:45 09:00 Temperature Pulse Rate 93 H 102 H 89 Respiratory 20 20 19 Rate Blood Pressure 125/56 121/62 121/62 O2 Sat by Pulse 98 98 98 Oximetry 10/24/20 10/24/20 10/24/20 09:15 09:30 09:45 Temperature Pulse Rate 107 H 90 88 Respiratory 21 20 20 Rate Blood Pressure 116/63 115/58 123/61 O2 Sat by Pulse 98 98 98 Oximetry 10/24/20 10/24/20 10/24/20 10:00 10:15 10:30 Temperature Pulse Rate 91 H 94 H 108 H Respiratory 22 21 20 Rate Blood Pressure 123/67 119/63 119/63 O2 Sat by Pulse 98 98 97 Oximetry 10/24/20 10:45 Temperature Pulse Rate 89 Respiratory 21 Rate Blood Pressure 115/62 O2 Sat by Pulse 95 Oximetry Constitutional: appears uncomfortable, other (elderly and chronically ill looking male with mildly increased respiratory effort at rest on MVS) Eyes: non-icteric ENT: oropharynx dry, other (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0) L 10/24/20 03:00 POC ABG pO2 Not Reportable 10/24/20 03:00 POC ABG HCO3 20.0 10/24/20 03:00 ABG O2 Saturation 84.6 (0-100) 10/24/20 03:00 PT/INR, D-dimer PT 20.4 Sec. (12.2-14.9) H 10/24/20 05:27 INR 1.70 (0.87-1.13) H 10/24/20 05:27 D-Dimer 1992.93 ng/mlDDU (0-234) H 10/21/20 Unknown Abnormal lab findings: Abnormal Labs 10/02/20 10/02/20 10/02/20 23:17 23:17 23:17 WBC RBC 3.31 L Hgb 6.7 L Hct 21.8 L MCV 66 L MCH 20 L MCHC 31 L RDW 31.7 H Plt Count Maury % (Auto) Maury # (Auto) Seg Neutrophils % Seg Neuts % (Manual) 79.0 H Lymphocytes % (Manual) 11.0 L Monocytes % (Manual) 10.0 H Basophils % (Manual) Nucleated RBC % Seg Neutrophils # Seg Neutrophils # Man Lymphocytes # (Manual) 0.9 L Monocytes # (Manual) Basophils # (Manual) PT 20.8 H INR 1.74 H APTT 57.6 H Fibrinogen D-Dimer ABG pH POC ABG pCO2 POC ABG pO2 ABG Hemoglobin ABG Oxyhemoglobin ABG Sodium ABG Potassium ABG Chloride ABG Glucose Sodium Potassium Chloride Carbon Dioxide BUN Creatinine Glucose 42 L POC Glucose Lactic Acid Calcium Magnesium Iron Total Bilirubin Direct Bilirubin AST ALT Alkaline Phosphatase Ammonia CK-MB (CK-2) 7.5 H CK-MB (CK-2) Rel Index 8.5 H Total Protein Albumin 2.9 L Arterial Blood Glucose Arterial Blood Ionized Calcium Urine Creatinine Urine Total Protein Salicylates Acetaminophen Crossmatch 10/02/20 10/02/20 10/02/20 23:17 23:17 23:17 WBC RBC Hgb Hct MCV MCH MCHC RDW Plt Count Maury % (Auto) Maury # (Auto) Seg Neutrophils % Seg Neuts % (Manual) Lymphocytes % (Manual) Monocytes % (Manual) Basophils % (Manual) Nucleated RBC % Seg Neutrophils # Seg Neutrophils # Man Lymphocytes # (Manual) Monocytes # (Manual) Basophils # (Manual) PT INR APTT Fibrinogen D-Dimer ABG pH POC ABG pCO2 POC ABG pO2 ABG Hemoglobin ABG Oxyhemoglobin ABG Sodium ABG Potassium ABG Chloride ABG Glucose Sodium Potassium Chloride Carbon Dioxide BUN Creatinine Glucose POC Glucose Lactic Acid 2.20 H* Calcium Magnesium Iron Total Bilirubin Direct Bilirubin AST ALT Alkaline Phosphatase Ammonia 22.0 L CK-MB (CK-2) CK-MB (CK-2) Rel Index Total Protein Albumin Arterial Blood Glucose Arterial Blood Ionized Calcium Urine Creatinine Urine Total Protein Salicylates < 0.3 L Acetaminophen Crossmatch 10/02/20 10/03/20 10/03/20 23:17 05:57 05:57 WBC RBC 2.66 L Hgb 5.3 L* Hct 17.8 L* MCV 67 L MCH 20 L MCHC 30 L RDW 32.1 H Plt Count Maury % (Auto) Maury # (Auto) Seg Neutrophils % Seg Neuts % (Manual) Lymphocytes % (Manual) 2.0 L Monocytes % (Manual) Basophils % (Manual) Nucleated RBC % 1.0 H Seg Neutrophils # Seg Neutrophils # Man 8.6 H Lymphocytes # (Manual) 0.2 L Monocytes # (Manual) Basophils # (Manual) PT INR APTT Fibrinogen D-Dimer ABG pH POC ABG pCO2 POC ABG pO2 ABG Hemoglobin ABG Oxyhemoglobin ABG Sodium ABG Potassium ABG Chloride ABG Glucose Sodium Potassium Chloride Carbon Dioxide BUN Creatinine Glucose POC Glucose Lactic Acid Calcium Magnesium Iron Total Bilirubin Direct Bilirubin AST ALT Alkaline Phosphatase Ammonia CK-MB (CK-2) CK-MB (CK-2) Rel Index Total Protein Albumin Arterial Blood Glucose Arterial Blood Ionized Calcium Urine Creatinine Urine Total Protein Salicylates Acetaminophen 5.0 L Crossmatch See Detail 10/03/20 10/03/20 10/03/20 05:57 05:57 06:00 WBC RBC Hgb Hct MCV MCH MCHC RDW Plt Count Maury % (Auto) Maury # (Auto) Seg Neutrophils % Seg Neuts % (Manual) Lymphocytes % (Manual) Monocytes % (Manual) Basophils % (Manual) Nucleated RBC % Seg Neutrophils # Seg Neutrophils # Man Lymphocytes # (Manual) Monocytes # (Manual) Basophils # (Manual) PT INR APTT Fibrinogen D-Dimer ABG pH POC ABG pCO2 POC ABG pO2 ABG Hemoglobin ABG Oxyhemoglobin ABG Sodium ABG Potassium ABG Chloride ABG Glucose Sodium Potassium Chloride Carbon Dioxide BUN Creatinine Glucose 52 L POC Glucose 31 L Lactic Acid Calcium Magnesium Iron 42 L Total Bilirubin Direct Bilirubin AST ALT Alkaline Phosphatase Ammonia CK-MB (CK-2) CK-MB (CK-2) Rel Index Total Protein 5.8 L Albumin 3.1 L Arterial Blood Glucose Arterial Blood Ionized Calcium Urine Creatinine Urine Total Protein Salicylates Acetaminophen Crossmatch 10/03/20 10/03/20 10/03/20 07:34 09:43 10:57 WBC RBC Hgb Hct MCV MCH MCHC RDW Plt Count Maury % (Auto) Maury # (Auto) Seg Neutrophils % Seg Neuts % (Manual) Lymphocytes % (Manual) Monocytes % (Manual) Basophils % (Manual) Nucleated RBC % Seg Neutrophils # Seg Neutrophils # Man Lymphocytes # (Manual) Monocytes # (Manual) Basophils # (Manual) PT INR APTT Fibrinogen D-Dimer ABG pH POC ABG pCO2 POC ABG pO2 ABG Hemoglobin ABG Oxyhemoglobin ABG Sodium ABG Potassium ABG Chloride ABG Glucose Sodium Potassium Chloride Carbon Dioxide BUN Creatinine Glucose POC Glucose 59 L 41 L 31 L Lactic Acid Calcium Magnesium Iron Total Bilirubin Direct Bilirubin AST ALT Alkaline Phosphatase Ammonia CK-MB (CK-2) CK-MB (CK-2) Rel Index Total Protein Albumin Arterial Blood Glucose Arterial Blood Ionized Calcium Urine Creatinine Urine Total Protein Salicylates Acetaminophen Crossmatch 10/03/20 10/03/20 10/03/20 11:21 12:00 12:14 WBC RBC Hgb Hct MCV MCH MCHC RDW Plt Count Maury % (Auto) Maury # (Auto) Seg Neutrophils % Seg Neuts % (Manual) Lymphocytes % (Manual) Monocytes % (Manual) Basophils % (Manual) Nucleated RBC % Seg Neutrophils # Seg Neutrophils # Man Lymphocytes # (Manual) Monocytes # (Manual) Basophils # (Manual) PT INR APTT Fibrinogen D-Dimer ABG pH POC ABG pCO2 POC ABG pO2 ABG Hemoglobin ABG Oxyhemoglobin ABG Sodium ABG Potassium ABG Chloride ABG Glucose Sodium Potassium Chloride Carbon Dioxide BUN Creatinine Glucose POC Glucose 62 L 26 L 140 H Lactic Acid Calcium Magnesium Iron Total Bilirubin Direct Bilirubin AST ALT Alkaline Phosphatase Ammonia CK-MB (CK-2) CK-MB (CK-2) Rel Index Total Protein Albumin Arterial Blood Glucose Arterial Blood Ionized Calcium Urine Creatinine Urine Total Protein Salicylates Acetaminophen Crossmatch 10/03/20 10/03/20 10/03/20 13:33 14:19 14:59 WBC RBC Hgb Hct MCV MCH MCHC RDW Plt Count Maury % (Auto) Maury # (Auto) Seg Neutrophils % Seg Neuts % (Manual) Lymphocytes % (Manual) Monocytes % (Manual) Basophils % (Manual) Nucleated RBC % Seg Neutrophils # Seg Neutrophils # Man Lymphocytes # (Manual) Monocytes # (Manual) Basophils # (Manual) PT INR APTT Fibrinogen D-Dimer ABG pH POC ABG pCO2 POC ABG pO2 ABG Hemoglobin ABG Oxyhemoglobin ABG Sodium ABG Potassium ABG Chloride ABG Glucose Sodium Potassium Chloride Carbon Dioxide BUN Creatinine Glucose POC Glucose 24 L 59 L 40 L Lactic Acid Calcium Magnesium Iron Total Bilirubin Direct Bilirubin AST ALT Alkaline Phosphatase Ammonia CK-MB (CK-2) CK-MB (CK-2) Rel Index Total Protein Albumin Arterial Blood Glucose Arterial Blood Ionized Calcium Urine Creatinine Urine Total Protein Salicylates Acetaminophen Crossmatch 10/03/20 10/03/20 10/03/20 15:26 15:57 16:35 WBC RBC Hgb Hct MCV MCH MCHC RDW Plt Count Maury % (Auto) Maury # (Auto) Seg Neutrophils % Seg Neuts % (Manual) Lymphocytes % (Manual) Monocytes % (Manual) Basophils % (Manual) Nucleated RBC % Seg Neutrophils # Seg Neutrophils # Man Lymphocytes # (Manual) Monocytes # (Manual) Basophils # (Manual) PT INR APTT Fibrinogen D-Dimer ABG pH POC ABG pCO2 POC ABG pO2 ABG Hemoglobin ABG Oxyhemoglobin ABG Sodium ABG Potassium ABG Chloride ABG Glucose Sodium Potassium Chloride Carbon Dioxide BUN Creatinine Glucose POC Glucose 54 L 45 L 42 L Lactic Acid Calcium Magnesium Iron Total Bilirubin Direct Bilirubin AST ALT Alkaline Phosphatase Ammonia CK-MB (CK-2) CK-MB (CK-2) Rel Index Total Protein Albumin Arterial Blood Glucose Arterial Blood Ionized Calcium Urine Creatinine Urine Total Protein Salicylates Acetaminophen Crossmatch 10/03/20 10/03/20 10/03/20 17:16 18:37 19:56 WBC RBC Hgb Hct MCV MCH MCHC RDW Plt Count Maury % (Auto) Maury # (Auto) Seg Neutrophils % Seg Neuts % (Manual) Lymphocytes % (Manual) Monocytes % (Manual) Basophils % (Manual) Nucleated RBC % Seg Neutrophils # Seg Neutrophils # Man Lymphocytes # (Manual) Monocytes # (Manual) Basophils # (Manual) PT INR APTT Fibrinogen D-Dimer ABG pH POC ABG pCO2 POC ABG pO2 ABG Hemoglobin ABG Oxyhemoglobin ABG Sodium ABG Potassium ABG Chloride ABG Glucose Sodium Potassium Chloride Carbon Dioxide BUN Creatinine Glucose POC Glucose 41 L 46 L 57 L Lactic Acid Calcium Magnesium Iron Total Bilirubin Direct Bilirubin AST ALT Alkaline Phosphatase Ammonia CK-MB (CK-2) CK-MB (CK-2) Rel Index Total Protein Albumin Arterial Blood Glucose Arterial Blood Ionized Calcium Urine Creatinine Urine Total Protein Salicylates Acetaminophen Crossmatch 10/03/20 10/04/20 10/04/20 21:32 01:04 01:11 WBC RBC Hgb 9.6 L D Hct 28.3 L D MCV MCH MCHC RDW Plt Count Maury % (Auto) Maury # (Auto) Seg Neutrophils % Seg Neuts % (Manual) Lymphocytes % (Manual) Monocytes % (Manual) Basophils % (Manual) Nucleated RBC % Seg Neutrophils # Seg Neutrophils # Man Lymphocytes # (Manual) Monocytes # (Manual) Basophils # (Manual) PT INR APTT Fibrinogen D-Dimer ABG pH POC ABG pCO2 POC ABG pO2 ABG Hemoglobin ABG Oxyhemoglobin ABG Sodium ABG Potassium ABG Chloride ABG Glucose Sodium Potassium Chloride Carbon Dioxide BUN Creatinine Glucose POC Glucose 65 L 51 L Lactic Acid Calcium Magnesium Iron Total Bilirubin Direct Bilirubin AST ALT Alkaline Phosphatase Ammonia CK-MB (CK-2) CK-MB (CK-2) Rel Index Total Protein Albumin Arterial Blood Glucose Arterial Blood Ionized Calcium Urine Creatinine Urine Total Protein Salicylates Acetaminophen Crossmatch 10/04/20 10/04/20 10/04/20 05:59 05:59 15:10 WBC 13.4 H RBC Hgb 9.9 L 10.1 L Hct 32.0 L 31.8 L MCV 76 L MCH 24 L MCHC 31 L RDW 31.3 H Plt Count Maury % (Auto) Maury # (Auto) Seg Neutrophils % Seg Neuts % (Manual) 86.0 H Lymphocytes % (Manual) 6.0 L Monocytes % (Manual) 8.0 H Basophils % (Manual) Nucleated RBC % 2.0 H Seg Neutrophils # Seg Neutrophils # Man 11.5 H Lymphocytes # (Manual) 0.8 L Monocytes # (Manual) 1.1 H Basophils # (Manual) PT INR APTT Fibrinogen D-Dimer ABG pH POC ABG pCO2 POC ABG pO2 ABG Hemoglobin ABG Oxyhemoglobin ABG Sodium ABG Potassium ABG Chloride ABG Glucose Sodium 136 L Potassium 3.5 L Chloride Carbon Dioxide 19 L D BUN Creatinine Glucose POC Glucose Lactic Acid Calcium Magnesium Iron Total Bilirubin Direct Bilirubin AST ALT Alkaline Phosphatase Ammonia CK-MB (CK-2) CK-MB (CK-2) Rel Index Total Protein Albumin 2.6 L Arterial Blood Glucose Arterial Blood Ionized Calcium Urine Creatinine Urine Total Protein Salicylates Acetaminophen Crossmatch 10/04/20 10/04/20 10/05/20 16:28 22:33 04:43 WBC RBC Hgb 10.5 L Hct 32.5 L MCV MCH MCHC RDW Plt Count Maury % (Auto) Maury # (Auto) Seg Neutrophils % Seg Neuts % (Manual) Lymphocytes % (Manual) Monocytes % (Manual) Basophils % (Manual) Nucleated RBC % Seg Neutrophils # Seg Neutrophils # Man Lymphocytes # (Manual) Monocytes # (Manual) Basophils # (Manual) PT INR APTT Fibrinogen D-Dimer ABG pH POC ABG pCO2 POC ABG pO2 ABG Hemoglobin ABG Oxyhemoglobin ABG Sodium ABG Potassium ABG Chloride ABG Glucose Sodium Potassium Chloride Carbon Dioxide BUN Creatinine Glucose POC Glucose 66 L 113 H Lactic Acid Calcium Magnesium Iron Total Bilirubin Direct Bilirubin AST ALT Alkaline Phosphatase Ammonia CK-MB (CK-2) CK-MB (CK-2) Rel Index Total Protein Albumin Arterial Blood Glucose Arterial Blood Ionized Calcium Urine Creatinine Urine Total Protein Salicylates Acetaminophen Crossmatch 10/05/20 10/05/20 10/05/20 05:00 09:42 11:57 WBC RBC Hgb 9.8 L Hct 30.5 L MCV 74 L MCH 24 L MCHC RDW 31.6 H Plt Count Maury % (Auto) Maury # (Auto) Seg Neutrophils % Seg Neuts % (Manual) Lymphocytes % (Manual) Monocytes % (Manual) Basophils % (Manual) Nucleated RBC % Seg Neutrophils # Seg Neutrophils # Man Lymphocytes # (Manual) Monocytes # (Manual) Basophils # (Manual) PT INR APTT Fibrinogen D-Dimer ABG pH POC ABG pCO2 POC ABG pO2 ABG Hemoglobin ABG Oxyhemoglobin ABG Sodium ABG Potassium ABG Chloride ABG Glucose Sodium 132 L Potassium 3.5 L Chloride Carbon Dioxide 19 L BUN Creatinine 0.7 L Glucose POC Glucose 129 H Lactic Acid Calcium Magnesium Iron Total Bilirubin Direct Bilirubin AST ALT Alkaline Phosphatase Ammonia CK-MB (CK-2) CK-MB (CK-2) Rel Index Total Protein Albumin Arterial Blood Glucose Arterial Blood Ionized Calcium Urine Creatinine Urine Total Protein Salicylates Acetaminophen Crossmatch 10/05/20 10/05/20 10/06/20 16:47 21:51 05:07 WBC RBC Hgb 9.4 L Hct 30.1 L MCV 76 L MCH 24 L MCHC 31 L RDW 31.1 H Plt Count Maury % (Auto) Maury # (Auto) Seg Neutrophils % Seg Neuts % (Manual) Lymphocytes % (Manual) Monocytes % (Manual) Basophils % (Manual) Nucleated RBC % Seg Neutrophils # Seg Neutrophils # Man Lymphocytes # (Manual) Monocytes # (Manual) Basophils # (Manual) PT INR APTT Fibrinogen D-Dimer ABG pH POC ABG pCO2 POC ABG pO2 ABG Hemoglobin ABG Oxyhemoglobin ABG Sodium ABG Potassium ABG Chloride ABG Glucose Sodium Potassium Chloride Carbon Dioxide BUN Creatinine Glucose POC Glucose 132 H 115 H Lactic Acid Calcium Magnesium Iron Total Bilirubin Direct Bilirubin AST ALT Alkaline Phosphatase Ammonia CK-MB (CK-2) CK-MB (CK-2) Rel Index Total Protein Albumin Arterial Blood Glucose Arterial Blood Ionized Calcium Urine Creatinine Urine Total Protein Salicylates Acetaminophen Crossmatch 10/06/20 10/06/20 10/06/20 05:07 15:37 21:01 WBC RBC Hgb Hct MCV MCH MCHC RDW Plt Count Maury % (Auto) Maury # (Auto) Seg Neutrophils % Seg Neuts % (Manual) Lymphocytes % (Manual) Monocytes % (Manual) Basophils % (Manual) Nucleated RBC % Seg Neutrophils # Seg Neutrophils # Man Lymphocytes # (Manual) Monocytes # (Manual) Basophils # (Manual) PT INR APTT Fibrinogen D-Dimer ABG pH POC ABG pCO2 POC ABG pO2 ABG Hemoglobin ABG Oxyhemoglobin ABG Sodium ABG Potassium ABG Chloride ABG Glucose Sodium 133 L Potassium 3.5 L Chloride Carbon Dioxide 21 L BUN Creatinine 0.6 L Glucose 105 H POC Glucose 136 H 108 H Lactic Acid Calcium Magnesium Iron Total Bilirubin Direct Bilirubin AST ALT Alkaline Phosphatase Ammonia CK-MB (CK-2) CK-MB (CK-2) Rel Index Total Protein Albumin Arterial Blood Glucose Arterial Blood Ionized Calcium Urine Creatinine Urine Total Protein Salicylates Acetaminophen Crossmatch 10/07/20 10/07/20 10/07/20 04:52 04:52 06:07 WBC RBC Hgb 9.6 L Hct 29.4 L MCV 73 L MCH 24 L MCHC RDW 32.2 H Plt Count Maury % (Auto) Maury # (Auto) Seg Neutrophils % Seg Neuts % (Manual) Lymphocytes % (Manual) Monocytes % (Manual) Basophils % (Manual) Nucleated RBC % Seg Neutrophils # Seg Neutrophils # Man Lymphocytes # (Manual) Monocytes # (Manual) Basophils # (Manual) PT INR APTT Fibrinogen D-Dimer ABG pH POC ABG pCO2 POC ABG pO2 ABG Hemoglobin ABG Oxyhemoglobin ABG Sodium ABG Potassium ABG Chloride ABG Glucose Sodium 128 L Potassium Chloride Carbon Dioxide 20 L BUN Creatinine 0.7 L Glucose POC Glucose 110 H Lactic Acid Calcium Magnesium Iron Total Bilirubin Direct Bilirubin AST ALT Alkaline Phosphatase Ammonia CK-MB (CK-2) CK-MB (CK-2) Rel Index Total Protein Albumin Arterial Blood Glucose Arterial Blood Ionized Calcium Urine Creatinine Urine Total Protein Salicylates Acetaminophen Crossmatch 10/07/20 10/07/20 10/07/20 17:09 18:53 20:35 WBC RBC Hgb Hct MCV MCH MCHC RDW Plt Count Maury % (Auto) Maury # (Auto) Seg Neutrophils % Seg Neuts % (Manual) Lymphocytes % (Manual) Monocytes % (Manual) Basophils % (Manual) Nucleated RBC % Seg Neutrophils # Seg Neutrophils # Man Lymphocytes # (Manual) Monocytes # (Manual) Basophils # (Manual) PT INR APTT Fibrinogen D-Dimer ABG pH POC ABG pCO2 POC ABG pO2 ABG Hemoglobin ABG Oxyhemoglobin ABG Sodium ABG Potassium ABG Chloride ABG Glucose Sodium Potassium Chloride Carbon Dioxide BUN Creatinine Glucose POC Glucose 67 L 66 L 62 L Lactic Acid Calcium Magnesium Iron Total Bilirubin Direct Bilirubin AST ALT Alkaline Phosphatase Ammonia CK-MB (CK-2) CK-MB (CK-2) Rel Index Total Protein Albumin Arterial Blood Glucose Arterial Blood Ionized Calcium Urine Creatinine Urine Total Protein Salicylates Acetaminophen Crossmatch 10/07/20 10/08/20 10/08/20 21:55 05:00 05:00 WBC RBC Hgb 9.6 L Hct 29.4 L MCV 73 L MCH 24 L MCHC RDW 32.4 H Plt Count Maury % (Auto) Maury # (Auto) Seg Neutrophils % 80.6 H Seg Neuts % (Manual) 88.0 H Lymphocytes % (Manual) 9.0 L Monocytes % (Manual) Basophils % (Manual) Nucleated RBC % 5.0 H Seg Neutrophils # Seg Neutrophils # Man Lymphocytes # (Manual) 0.5 L Monocytes # (Manual) Basophils # (Manual) PT INR APTT Fibrinogen D-Dimer ABG pH POC ABG pCO2 POC ABG pO2 ABG Hemoglobin ABG Oxyhemoglobin ABG Sodium ABG Potassium ABG Chloride ABG Glucose Sodium 126 L Potassium Chloride 96.3 L Carbon Dioxide BUN Creatinine 0.7 L Glucose POC Glucose 132 H Lactic Acid Calcium Magnesium Iron Total Bilirubin Direct Bilirubin AST ALT Alkaline Phosphatase Ammonia CK-MB (CK-2) CK-MB (CK-2) Rel Index Total Protein Albumin Arterial Blood Glucose Arterial Blood Ionized Calcium Urine Creatinine Urine Total Protein Salicylates Acetaminophen Crossmatch 10/08/20 10/09/20 10/09/20 22:26 01:36 02:22 WBC RBC Hgb Hct MCV MCH MCHC RDW Plt Count Maury % (Auto) Maury # (Auto) Seg Neutrophils % Seg Neuts % (Manual) Lymphocytes % (Manual) Monocytes % (Manual) Basophils % (Manual) Nucleated RBC % Seg Neutrophils # Seg Neutrophils # Man Lymphocytes # (Manual) Monocytes # (Manual) Basophils # (Manual) PT INR APTT Fibrinogen D-Dimer ABG pH POC ABG pCO2 POC ABG pO2 ABG Hemoglobin ABG Oxyhemoglobin ABG Sodium ABG Potassium ABG Chloride ABG Glucose Sodium Potassium Chloride Carbon Dioxide BUN Creatinine Glucose POC Glucose 63 L 62 L 151 H Lactic Acid Calcium Magnesium Iron Total Bilirubin Direct Bilirubin AST ALT Alkaline Phosphatase Ammonia CK-MB (CK-2) CK-MB (CK-2) Rel Index Total Protein Albumin Arterial Blood Glucose Arterial Blood Ionized Calcium Urine Creatinine Urine Total Protein Salicylates Acetaminophen Crossmatch 10/09/20 10/09/20 10/09/20 05:07 05:42 06:32 WBC RBC Hgb 10.3 L Hct 33.8 L MCV 77 L MCH 24 L MCHC 31 L RDW 33.6 H Plt Count 137 L Maury % (Auto) Maury # (Auto) Seg Neutrophils % Seg Neuts % (Manual) 89.0 H Lymphocytes % (Manual) 5.0 L Monocytes % (Manual) Basophils % (Manual) Nucleated RBC % 4.0 H Seg Neutrophils # Seg Neutrophils # Man 9.4 H Lymphocytes # (Manual) 0.5 L Monocytes # (Manual) Basophils # (Manual) PT INR APTT Fibrinogen D-Dimer ABG pH POC ABG pCO2 POC ABG pO2 ABG Hemoglobin ABG Oxyhemoglobin ABG Sodium ABG Potassium ABG Chloride ABG Glucose Sodium 126 L Potassium Chloride 97.8 L Carbon Dioxide 20 L BUN Creatinine Glucose 58 L POC Glucose 48 L Lactic Acid Calcium Magnesium Iron Total Bilirubin Direct Bilirubin AST ALT Alkaline Phosphatase Ammonia CK-MB (CK-2) CK-MB (CK-2) Rel Index Total Protein Albumin Arterial Blood Glucose Arterial Blood Ionized Calcium Urine Creatinine Urine Total Protein Salicylates Acetaminophen Crossmatch 10/09/20 10/10/20 10/10/20 06:35 00:21 05:53 WBC RBC Hgb Hct MCV MCH MCHC RDW Plt Count Maury % (Auto) Maury # (Auto) Seg Neutrophils % Seg Neuts % (Manual) Lymphocytes % (Manual) Monocytes % (Manual) Basophils % (Manual) Nucleated RBC % Seg Neutrophils # Seg Neutrophils # Man Lymphocytes # (Manual) Monocytes # (Manual) Basophils # (Manual) PT INR APTT Fibrinogen D-Dimer ABG pH POC ABG pCO2 POC ABG pO2 ABG Hemoglobin ABG Oxyhemoglobin ABG Sodium ABG Potassium ABG Chloride ABG Glucose Sodium Potassium Chloride Carbon Dioxide BUN Creatinine Glucose POC Glucose 106 H 153 H 34 L Lactic Acid Calcium Magnesium Iron Total Bilirubin Direct Bilirubin AST ALT Alkaline Phosphatase Ammonia CK-MB (CK-2) CK-MB (CK-2) Rel Index Total Protein Albumin Arterial Blood Glucose Arterial Blood Ionized Calcium Urine Creatinine Urine Total Protein Salicylates Acetaminophen Crossmatch 10/10/20 10/10/20 10/10/20 10:58 10:58 12:39 WBC RBC Hgb 10.3 L Hct 33.9 L MCV 78 L MCH 24 L MCHC 30 L RDW 33.2 H Plt Count 135 L Maury % (Auto) Maury # (Auto) Seg Neutrophils % Seg Neuts % (Manual) 74.0 H Lymphocytes % (Manual) 12.0 L Monocytes % (Manual) 9.0 H Basophils % (Manual) 2.0 H Nucleated RBC % Seg Neutrophils # Seg Neutrophils # Man Lymphocytes # (Manual) 1.0 L Monocytes # (Manual) Basophils # (Manual) 0.2 H PT INR APTT Fibrinogen D-Dimer ABG pH POC ABG pCO2 POC ABG pO2 ABG Hemoglobin ABG Oxyhemoglobin ABG Sodium ABG Potassium ABG Chloride ABG Glucose Sodium 127 L Potassium Chloride Carbon Dioxide 20 L BUN 23 H Creatinine Glucose POC Glucose 108 H Lactic Acid Calcium Magnesium Iron Total Bilirubin Direct Bilirubin AST ALT Alkaline Phosphatase Ammonia CK-MB (CK-2) CK-MB (CK-2) Rel Index Total Protein Albumin Arterial Blood Glucose Arterial Blood Ionized Calcium Urine Creatinine Urine Total Protein Salicylates Acetaminophen Crossmatch 10/10/20 10/11/20 10/11/20 16:51 04:56 05:51 WBC RBC Hgb 9.5 L Hct 31.3 L MCV 77 L MCH 23 L MCHC 30 L RDW 33.7 H Plt Count Maury % (Auto) Maury # (Auto) Seg Neutrophils % Seg Neuts % (Manual) 95.0 H Lymphocytes % (Manual) 2.0 L Monocytes % (Manual) Basophils % (Manual) Nucleated RBC % 3.0 H Seg Neutrophils # Seg Neutrophils # Man 8.0 H Lymphocytes # (Manual) 0.2 L Monocytes # (Manual) Basophils # (Manual) PT INR APTT Fibrinogen D-Dimer ABG pH POC ABG pCO2 POC ABG pO2 ABG Hemoglobin ABG Oxyhemoglobin ABG Sodium ABG Potassium ABG Chloride ABG Glucose Sodium Potassium Chloride Carbon Dioxide BUN Creatinine Glucose POC Glucose 142 H 124 H Lactic Acid Calcium Magnesium Iron Total Bilirubin Direct Bilirubin AST ALT Alkaline Phosphatase Ammonia CK-MB (CK-2) CK-MB (CK-2) Rel Index Total Protein Albumin Arterial Blood Glucose Arterial Blood Ionized Calcium Urine Creatinine Urine Total Protein Salicylates Acetaminophen Crossmatch 10/11/20 10/11/20 10/12/20 05:51 11:56 04:53 WBC RBC Hgb 9.5 L Hct 30.0 L MCV 75 L MCH 24 L MCHC RDW 32.8 H Plt Count 136 L Maury % (Auto) Maury # (Auto) Seg Neutrophils % Seg Neuts % (Manual) 89.0 H Lymphocytes % (Manual) 5.0 L Monocytes % (Manual) Basophils % (Manual) Nucleated RBC % Seg Neutrophils # Seg Neutrophils # Man Lymphocytes # (Manual) 0.4 L Monocytes # (Manual) Basophils # (Manual) PT INR APTT Fibrinogen D-Dimer ABG pH POC ABG pCO2 POC ABG pO2 ABG Hemoglobin ABG Oxyhemoglobin ABG Sodium ABG Potassium ABG Chloride ABG Glucose Sodium 130 L Potassium Chloride Carbon Dioxide 18 L BUN 23 H Creatinine Glucose POC Glucose 126 H Lactic Acid Calcium Magnesium Iron Total Bilirubin Direct Bilirubin AST ALT Alkaline Phosphatase Ammonia CK-MB (CK-2) CK-MB (CK-2) Rel Index Total Protein Albumin Arterial Blood Glucose Arterial Blood Ionized Calcium Urine Creatinine Urine Total Protein Salicylates Acetaminophen Crossmatch 10/12/20 10/12/20 10/12/20 04:53 11:42 23:49 WBC RBC Hgb Hct MCV MCH MCHC RDW Plt Count Maury % (Auto) Maury # (Auto) Seg Neutrophils % Seg Neuts % (Manual) Lymphocytes % (Manual) Monocytes % (Manual) Basophils % (Manual) Nucleated RBC % Seg Neutrophils # Seg Neutrophils # Man Lymphocytes # (Manual) Monocytes # (Manual) Basophils # (Manual) PT INR APTT Fibrinogen D-Dimer ABG pH POC ABG pCO2 POC ABG pO2 ABG Hemoglobin ABG Oxyhemoglobin ABG Sodium ABG Potassium ABG Chloride ABG Glucose Sodium 130 L Potassium Chloride Carbon Dioxide 18 L BUN 25 H Creatinine Glucose 74 L POC Glucose 59 L 51 L Lactic Acid Calcium Magnesium Iron Total Bilirubin Direct Bilirubin AST ALT Alkaline Phosphatase Ammonia CK-MB (CK-2) CK-MB (CK-2) Rel Index Total Protein Albumin Arterial Blood Glucose Arterial Blood Ionized Calcium Urine Creatinine Urine Total Protein Salicylates Acetaminophen Crossmatch 10/13/20 10/13/20 10/13/20 03:17 05:24 05:24 WBC RBC Hgb 9.4 L Hct 29.4 L MCV 75 L MCH 24 L MCHC RDW 32.9 H Plt Count 95 L Maury % (Auto) Maury # (Auto) Seg Neutrophils % Seg Neuts % (Manual) 90.0 H Lymphocytes % (Manual) Monocytes % (Manual) Basophils % (Manual) Nucleated RBC % 2.0 H Seg Neutrophils # Seg Neutrophils # Man 9.5 H Lymphocytes # (Manual) 0.0 L Monocytes # (Manual) Basophils # (Manual) PT INR APTT Fibrinogen D-Dimer ABG pH POC ABG pCO2 POC ABG pO2 ABG Hemoglobin ABG Oxyhemoglobin ABG Sodium ABG Potassium ABG Chloride ABG Glucose Sodium 132 L Potassium Chloride Carbon Dioxide 17 L BUN 26 H Creatinine 1.6 H Glucose POC Glucose 67 L Lactic Acid Calcium Magnesium Iron Total Bilirubin Direct Bilirubin AST ALT Alkaline Phosphatase Ammonia CK-MB (CK-2) CK-MB (CK-2) Rel Index Total Protein Albumin Arterial Blood Glucose Arterial Blood Ionized Calcium Urine Creatinine Urine Total Protein Salicylates Acetaminophen Crossmatch 10/13/20 10/14/20 10/14/20 11:36 05:04 05:04 WBC 17.4 H RBC Hgb 9.3 L Hct 29.3 L MCV 76 L MCH 24 L MCHC RDW 33.8 H Plt Count 83 L Maury % (Auto) Maury # (Auto) Seg Neutrophils % Seg Neuts % (Manual) 89.0 H Lymphocytes % (Manual) 4.0 L Monocytes % (Manual) Basophils % (Manual) Nucleated RBC % 1.0 H Seg Neutrophils # Seg Neutrophils # Man 15.5 H Lymphocytes # (Manual) 0.7 L Monocytes # (Manual) Basophils # (Manual) PT INR APTT Fibrinogen D-Dimer ABG pH POC ABG pCO2 POC ABG pO2 ABG Hemoglobin ABG Oxyhemoglobin ABG Sodium ABG Potassium ABG Chloride ABG Glucose Sodium 132 L Potassium 5.3 H Chloride 108.7 H Carbon Dioxide 15 L BUN 25 H Creatinine 1.5 H Glucose POC Glucose 58 L Lactic Acid Calcium Magnesium Iron Total Bilirubin Direct Bilirubin AST ALT Alkaline Phosphatase Ammonia CK-MB (CK-2) CK-MB (CK-2) Rel Index Total Protein Albumin Arterial Blood Glucose Arterial Blood Ionized Calcium Urine Creatinine Urine Total Protein Salicylates Acetaminophen Crossmatch 10/14/20 10/14/20 10/14/20 05:41 08:19 15:34 WBC RBC Hgb Hct MCV MCH MCHC RDW Plt Count Maury % (Auto) Maury # (Auto) Seg Neutrophils % Seg Neuts % (Manual) Lymphocytes % (Manual) Monocytes % (Manual) Basophils % (Manual) Nucleated RBC % Seg Neutrophils # Seg Neutrophils # Man Lymphocytes # (Manual) Monocytes # (Manual) Basophils # (Manual) PT INR APTT Fibrinogen D-Dimer ABG pH POC ABG pCO2 POC ABG pO2 ABG Hemoglobin ABG Oxyhemoglobin ABG Sodium ABG Potassium ABG Chloride ABG Glucose Sodium 134 L Potassium 5.2 H Chloride 111.1 H Carbon Dioxide 16 L BUN 25 H Creatinine 1.5 H Glucose POC Glucose 58 L 120 H Lactic Acid Calcium Magnesium Iron Total Bilirubin Direct Bilirubin AST ALT Alkaline Phosphatase Ammonia CK-MB (CK-2) CK-MB (CK-2) Rel Index Total Protein Albumin Arterial Blood Glucose Arterial Blood Ionized Calcium Urine Creatinine Urine Total Protein Salicylates Acetaminophen Crossmatch 10/14/20 10/15/20 10/15/20 Unknown 05:50 05:50 WBC 14.1 H RBC Hgb 9.4 L Hct 29.9 L MCV 76 L MCH 24 L MCHC 31 L RDW 34.2 H Plt Count 86 L Maury % (Auto) 8.3 H Maury # (Auto) 1.3 H Seg Neutrophils % 86.5 H Seg Neuts % (Manual) Lymphocytes % (Manual) 9.0 L Monocytes % (Manual) Basophils % (Manual) Nucleated RBC % 6.0 H Seg Neutrophils # 13.2 H Seg Neutrophils # Man 9.7 H Lymphocytes # (Manual) Monocytes # (Manual) Basophils # (Manual) PT INR APTT Fibrinogen D-Dimer ABG pH POC ABG pCO2 POC ABG pO2 ABG Hemoglobin ABG Oxyhemoglobin ABG Sodium ABG Potassium ABG Chloride ABG Glucose Sodium 134 L Potassium Chloride 109.9 H Carbon Dioxide 18 L BUN 26 H Creatinine 1.5 H Glucose 125 H POC Glucose Lactic Acid Calcium Magnesium Iron Total Bilirubin Direct Bilirubin AST ALT Alkaline Phosphatase Ammonia CK-MB (CK-2) CK-MB (CK-2) Rel Index Total Protein Albumin Arterial Blood Glucose Arterial Blood Ionized Calcium Urine Creatinine 144.2 H Urine Total Protein 97 H Salicylates Acetaminophen Crossmatch 10/15/20 10/15/20 10/15/20 05:55 07:36 07:59 WBC RBC Hgb Hct MCV MCH MCHC RDW Plt Count Maury % (Auto) Maury # (Auto) Seg Neutrophils % Seg Neuts % (Manual) Lymphocytes % (Manual) Monocytes % (Manual) Basophils % (Manual) Nucleated RBC % Seg Neutrophils # Seg Neutrophils # Man Lymphocytes # (Manual) Monocytes # (Manual) Basophils # (Manual) PT INR APTT Fibrinogen D-Dimer ABG pH 7.052 L POC ABG pCO2 65.0 H POC ABG pO2 214.1 H ABG Hemoglobin 10.6 L ABG Oxyhemoglobin 98.3 H ABG Sodium 130.6 L ABG Potassium ABG Chloride 110.0 H ABG Glucose 124 H Sodium Potassium Chloride Carbon Dioxide BUN Creatinine Glucose POC Glucose 113 H 114 H Lactic Acid Calcium Magnesium Iron Total Bilirubin Direct Bilirubin AST ALT Alkaline Phosphatase Ammonia CK-MB (CK-2) CK-MB (CK-2) Rel Index Total Protein Albumin Arterial Blood Glucose 124 H Arterial Blood Ionized Calcium Urine Creatinine Urine Total Protein Salicylates Acetaminophen Crossmatch 10/15/20 10/15/20 10/15/20 10:50 11:27 13:56 WBC RBC Hgb Hct MCV MCH MCHC RDW Plt Count Maury % (Auto) Maury # (Auto) Seg Neutrophils % Seg Neuts % (Manual) Lymphocytes % (Manual) Monocytes % (Manual) Basophils % (Manual) Nucleated RBC % Seg Neutrophils # Seg Neutrophils # Man Lymphocytes # (Manual) Monocytes # (Manual) Basophils # (Manual) PT INR APTT Fibrinogen D-Dimer ABG pH 7.200 L POC ABG pCO2 POC ABG pO2 123.1 H ABG Hemoglobin ABG Oxyhemoglobin ABG Sodium 131.3 L ABG Potassium 4.6 H ABG Chloride 112.0 H ABG Glucose 42 L Sodium Potassium Chloride Carbon Dioxide BUN Creatinine Glucose POC Glucose 50 L 476 H Lactic Acid Calcium Magnesium Iron Total Bilirubin Direct Bilirubin AST ALT Alkaline Phosphatase Ammonia CK-MB (CK-2) CK-MB (CK-2) Rel Index Total Protein Albumin Arterial Blood Glucose 42 L Arterial Blood Ionized Calcium Urine Creatinine Urine Total Protein Salicylates Acetaminophen Crossmatch 10/15/20 10/15/20 10/16/20 16:46 17:01 00:45 WBC RBC Hgb Hct MCV MCH MCHC RDW Plt Count Maury % (Auto) Maury # (Auto) Seg Neutrophils % Seg Neuts % (Manual) Lymphocytes % (Manual) Monocytes % (Manual) Basophils % (Manual) Nucleated RBC % Seg Neutrophils # Seg Neutrophils # Man Lymphocytes # (Manual) Monocytes # (Manual) Basophils # (Manual) PT INR APTT Fibrinogen D-Dimer ABG pH 7.250 L POC ABG pCO2 POC ABG pO2 49.8 L ABG Hemoglobin 9.3 L ABG Oxyhemoglobin 83.0 L ABG Sodium 130.2 L ABG Potassium ABG Chloride 111.0 H ABG Glucose Sodium 135 L Potassium Chloride Carbon Dioxide BUN Creatinine Glucose POC Glucose 67 L Lactic Acid Calcium Magnesium Iron Total Bilirubin Direct Bilirubin AST ALT Alkaline Phosphatase Ammonia CK-MB (CK-2) CK-MB (CK-2) Rel Index Total Protein Albumin Arterial Blood Glucose Arterial Blood Ionized Calcium Urine Creatinine Urine Total Protein Salicylates Acetaminophen Crossmatch 10/16/20 10/16/20 10/16/20 05:36 05:53 05:53 WBC 16.6 H RBC 3.52 L Hgb 8.3 L Hct 26.6 L MCV 75 L MCH 23 L MCHC 31 L RDW 33.7 H Plt Count 63 L Maury % (Auto) Maury # (Auto) Seg Neutrophils % Seg Neuts % (Manual) 93.0 H Lymphocytes % (Manual) Monocytes % (Manual) Basophils % (Manual) Nucleated RBC % 3.0 H Seg Neutrophils # Seg Neutrophils # Man 15.4 H Lymphocytes # (Manual) 0.0 L Monocytes # (Manual) Basophils # (Manual) PT INR APTT Fibrinogen D-Dimer ABG pH POC ABG pCO2 POC ABG pO2 ABG Hemoglobin ABG Oxyhemoglobin ABG Sodium ABG Potassium ABG Chloride ABG Glucose Sodium 136 L Potassium Chloride 111.9 H Carbon Dioxide 17 L BUN 29 H Creatinine 2.0 H Glucose 126 H POC Glucose 44 L Lactic Acid Calcium 8.1 L Magnesium Iron Total Bilirubin Direct Bilirubin AST ALT Alkaline Phosphatase Ammonia CK-MB (CK-2) CK-MB (CK-2) Rel Index Total Protein Albumin Arterial Blood Glucose Arterial Blood Ionized Calcium Urine Creatinine Urine Total Protein Salicylates Acetaminophen Crossmatch 10/16/20 10/16/20 10/16/20 05:53 07:26 08:07 WBC RBC Hgb Hct MCV MCH MCHC RDW Plt Count Maury % (Auto) Maury # (Auto) Seg Neutrophils % Seg Neuts % (Manual) Lymphocytes % (Manual) Monocytes % (Manual) Basophils % (Manual) Nucleated RBC % Seg Neutrophils # Seg Neutrophils # Man Lymphocytes # (Manual) Monocytes # (Manual) Basophils # (Manual) PT 24.5 H INR 2.17 H APTT Fibrinogen D-Dimer ABG pH POC ABG pCO2 POC ABG pO2 ABG Hemoglobin ABG Oxyhemoglobin ABG Sodium ABG Potassium ABG Chloride ABG Glucose Sodium Potassium Chloride Carbon Dioxide BUN Creatinine Glucose POC Glucose 58 L 51 L Lactic Acid Calcium Magnesium Iron Total Bilirubin Direct Bilirubin AST ALT Alkaline Phosphatase Ammonia CK-MB (CK-2) CK-MB (CK-2) Rel Index Total Protein Albumin Arterial Blood Glucose Arterial Blood Ionized Calcium Urine Creatinine Urine Total Protein Salicylates Acetaminophen Crossmatch 10/16/20 10/16/20 10/16/20 08:52 11:14 11:33 WBC RBC Hgb Hct MCV MCH MCHC RDW Plt Count Maury % (Auto) Maury # (Auto) Seg Neutrophils % Seg Neuts % (Manual) Lymphocytes % (Manual) Monocytes % (Manual) Basophils % (Manual) Nucleated RBC % Seg Neutrophils # Seg Neutrophils # Man Lymphocytes # (Manual) Monocytes # (Manual) Basophils # (Manual) PT INR APTT Fibrinogen D-Dimer ABG pH 7.044 L POC ABG pCO2 58.1 H POC ABG pO2 57.7 L ABG Hemoglobin 9.5 L ABG Oxyhemoglobin 81.5 L ABG Sodium 131.7 L ABG Potassium ABG Chloride 112.0 H ABG Glucose 59 L Sodium Potassium Chloride Carbon Dioxide BUN Creatinine Glucose POC Glucose 58 L Lactic Acid Calcium Magnesium Iron Total Bilirubin Direct Bilirubin AST 136 H ALT 72 H Alkaline Phosphatase 240 H Ammonia CK-MB (CK-2) CK-MB (CK-2) Rel Index Total Protein 5.1 L Albumin 2.1 L Arterial Blood Glucose 59 L Arterial Blood Ionized Calcium Urine Creatinine Urine Total Protein Salicylates Acetaminophen Crossmatch 10/16/20 10/16/20 10/16/20 12:32 13:11 13:40 WBC RBC Hgb Hct MCV MCH MCHC RDW Plt Count Maury % (Auto) Maury # (Auto) Seg Neutrophils % Seg Neuts % (Manual) Lymphocytes % (Manual) Monocytes % (Manual) Basophils % (Manual) Nucleated RBC % Seg Neutrophils # Seg Neutrophils # Man Lymphocytes # (Manual) Monocytes # (Manual) Basophils # (Manual) PT INR APTT Fibrinogen D-Dimer ABG pH POC ABG pCO2 POC ABG pO2 ABG Hemoglobin ABG Oxyhemoglobin ABG Sodium ABG Potassium ABG Chloride ABG Glucose Sodium Potassium Chloride Carbon Dioxide BUN Creatinine Glucose POC Glucose 27 L 54 L 69 L Lactic Acid Calcium Magnesium Iron Total Bilirubin Direct Bilirubin AST ALT Alkaline Phosphatase Ammonia CK-MB (CK-2) CK-MB (CK-2) Rel Index Total Protein Albumin Arterial Blood Glucose Arterial Blood Ionized Calcium Urine Creatinine Urine Total Protein Salicylates Acetaminophen Crossmatch 10/16/20 10/16/20 10/16/20 15:13 17:15 17:34 WBC RBC Hgb Hct MCV MCH MCHC RDW Plt Count Maury % (Auto) Maury # (Auto) Seg Neutrophils % Seg Neuts % (Manual) Lymphocytes % (Manual) Monocytes % (Manual) Basophils % (Manual) Nucleated RBC % Seg Neutrophils # Seg Neutrophils # Man Lymphocytes # (Manual) Monocytes # (Manual) Basophils # (Manual) PT INR APTT Fibrinogen D-Dimer ABG pH POC ABG pCO2 POC ABG pO2 ABG Hemoglobin ABG Oxyhemoglobin ABG Sodium ABG Potassium ABG Chloride ABG Glucose Sodium Potassium Chloride Carbon Dioxide BUN Creatinine Glucose POC Glucose 46 L 54 L 119 H Lactic Acid Calcium Magnesium Iron Total Bilirubin Direct Bilirubin AST ALT Alkaline Phosphatase Ammonia CK-MB (CK-2) CK-MB (CK-2) Rel Index Total Protein Albumin Arterial Blood Glucose Arterial Blood Ionized Calcium Urine Creatinine Urine Total Protein Salicylates Acetaminophen Crossmatch 10/16/20 10/16/20 10/16/20 18:51 19:37 21:00 WBC RBC Hgb Hct MCV MCH MCHC RDW Plt Count Maury % (Auto) Maury # (Auto) Seg Neutrophils % Seg Neuts % (Manual) Lymphocytes % (Manual) Monocytes % (Manual) Basophils % (Manual) Nucleated RBC % Seg Neutrophils # Seg Neutrophils # Man Lymphocytes # (Manual) Monocytes # (Manual) Basophils # (Manual) PT INR APTT Fibrinogen D-Dimer ABG pH 7.122 L POC ABG pCO2 49.8 H POC ABG pO2 62.1 L ABG Hemoglobin 9.1 L ABG Oxyhemoglobin 89.6 L ABG Sodium 130.1 L ABG Potassium 3.0 L ABG Chloride 111.0 H ABG Glucose 106 H Sodium Potassium Chloride Carbon Dioxide BUN Creatinine Glucose POC Glucose 64 L 114 H Lactic Acid Calcium Magnesium Iron Total Bilirubin Direct Bilirubin AST ALT Alkaline Phosphatase Ammonia CK-MB (CK-2) CK-MB (CK-2) Rel Index Total Protein Albumin Arterial Blood Glucose 106 H Arterial Blood Ionized Calcium Urine Creatinine Urine Total Protein Salicylates Acetaminophen Crossmatch 10/16/20 10/16/20 10/17/20 22:01 22:58 00:58 WBC RBC Hgb Hct MCV MCH MCHC RDW Plt Count Maury % (Auto) Maury # (Auto) Seg Neutrophils % Seg Neuts % (Manual) Lymphocytes % (Manual) Monocytes % (Manual) Basophils % (Manual) Nucleated RBC % Seg Neutrophils # Seg Neutrophils # Man Lymphocytes # (Manual) Monocytes # (Manual) Basophils # (Manual) PT INR APTT Fibrinogen D-Dimer ABG pH POC ABG pCO2 POC ABG pO2 ABG Hemoglobin ABG Oxyhemoglobin ABG Sodium ABG Potassium ABG Chloride ABG Glucose Sodium 133 L Potassium 3.5 L Chloride 107.7 H Carbon Dioxide 15 L BUN 29 H Creatinine 2.6 H Glucose POC Glucose 63 L 292 H Lactic Acid Calcium 7.9 L Magnesium Iron Total Bilirubin Direct Bilirubin AST ALT Alkaline Phosphatase Ammonia CK-MB (CK-2) CK-MB (CK-2) Rel Index Total Protein Albumin Arterial Blood Glucose Arterial Blood Ionized Calcium Urine Creatinine Urine Total Protein Salicylates Acetaminophen Crossmatch 10/17/20 10/17/20 10/17/20 02:04 03:08 03:55 WBC RBC Hgb Hct MCV MCH MCHC RDW Plt Count Maury % (Auto) Maury # (Auto) Seg Neutrophils % Seg Neuts % (Manual) Lymphocytes % (Manual) Monocytes % (Manual) Basophils % (Manual) Nucleated RBC % Seg Neutrophils # Seg Neutrophils # Man Lymphocytes # (Manual) Monocytes # (Manual) Basophils # (Manual) PT INR APTT Fibrinogen D-Dimer ABG pH POC ABG pCO2 POC ABG pO2 ABG Hemoglobin ABG Oxyhemoglobin ABG Sodium ABG Potassium ABG Chloride ABG Glucose Sodium Potassium Chloride Carbon Dioxide BUN Creatinine Glucose POC Glucose 200 H 173 H 161 H Lactic Acid Calcium Magnesium Iron Total Bilirubin Direct Bilirubin AST ALT Alkaline Phosphatase Ammonia CK-MB (CK-2) CK-MB (CK-2) Rel Index Total Protein Albumin Arterial Blood Glucose Arterial Blood Ionized Calcium Urine Creatinine Urine Total Protein Salicylates Acetaminophen Crossmatch 10/17/20 10/17/20 10/17/20 04:00 04:49 04:49 WBC 17.7 H RBC 3.21 L Hgb 7.5 L Hct 25.4 L MCV 79 L MCH 24 L MCHC 30 L RDW 34.0 H Plt Count 40 L Maury % (Auto) Maury # (Auto) Seg Neutrophils % Seg Neuts % (Manual) Lymphocytes % (Manual) 3.0 L Monocytes % (Manual) Basophils % (Manual) Nucleated RBC % 3.0 H Seg Neutrophils # Seg Neutrophils # Man 10.6 H Lymphocytes # (Manual) 0.5 L Monocytes # (Manual) 1.1 H Basophils # (Manual) PT INR APTT Fibrinogen D-Dimer ABG pH 7.116 L POC ABG pCO2 POC ABG pO2 61.1 L ABG Hemoglobin 8.4 L ABG Oxyhemoglobin 90.2 L ABG Sodium 125.0 L ABG Potassium 3.1 L ABG Chloride ABG Glucose 155 H Sodium 133 L Potassium 3.3 L Chloride Carbon Dioxide 15 L BUN 29 H Creatinine 2.7 H Glucose 138 H POC Glucose Lactic Acid Calcium 7.8 L Magnesium Iron Total Bilirubin Direct Bilirubin AST ALT Alkaline Phosphatase Ammonia CK-MB (CK-2) CK-MB (CK-2) Rel Index Total Protein Albumin Arterial Blood Glucose 155 H Arterial Blood Ionized Calcium Urine Creatinine Urine Total Protein Salicylates Acetaminophen Crossmatch 10/17/20 10/17/20 10/17/20 04:58 06:01 07:50 WBC RBC Hgb Hct MCV MCH MCHC RDW Plt Count Maury % (Auto) Maury # (Auto) Seg Neutrophils % Seg Neuts % (Manual) Lymphocytes % (Manual) Monocytes % (Manual) Basophils % (Manual) Nucleated RBC % Seg Neutrophils # Seg Neutrophils # Man Lymphocytes # (Manual) Monocytes # (Manual) Basophils # (Manual) PT INR APTT Fibrinogen D-Dimer ABG pH POC ABG pCO2 POC ABG pO2 ABG Hemoglobin ABG Oxyhemoglobin ABG Sodium ABG Potassium ABG Chloride ABG Glucose Sodium Potassium Chloride Carbon Dioxide BUN Creatinine Glucose POC Glucose 137 H 119 H 106 H Lactic Acid Calcium Magnesium Iron Total Bilirubin Direct Bilirubin AST ALT Alkaline Phosphatase Ammonia CK-MB (CK-2) CK-MB (CK-2) Rel Index Total Protein Albumin Arterial Blood Glucose Arterial Blood Ionized Calcium Urine Creatinine Urine Total Protein Salicylates Acetaminophen Crossmatch 10/17/20 10/17/20 10/17/20 11:50 15:11 18:11 WBC RBC Hgb Hct MCV MCH MCHC RDW Plt Count Maury % (Auto) Maury # (Auto) Seg Neutrophils % Seg Neuts % (Manual) Lymphocytes % (Manual) Monocytes % (Manual) Basophils % (Manual) Nucleated RBC % Seg Neutrophils # Seg Neutrophils # Man Lymphocytes # (Manual) Monocytes # (Manual) Basophils # (Manual) PT INR APTT Fibrinogen D-Dimer ABG pH POC ABG pCO2 POC ABG pO2 ABG Hemoglobin ABG Oxyhemoglobin ABG Sodium ABG Potassium ABG Chloride ABG Glucose Sodium Potassium Chloride Carbon Dioxide BUN Creatinine Glucose POC Glucose 111 H 114 H 137 H Lactic Acid Calcium Magnesium Iron Total Bilirubin Direct Bilirubin AST ALT Alkaline Phosphatase Ammonia CK-MB (CK-2) CK-MB (CK-2) Rel Index Total Protein Albumin Arterial Blood Glucose Arterial Blood Ionized Calcium Urine Creatinine Urine Total Protein Salicylates Acetaminophen Crossmatch 10/17/20 10/17/20 10/18/20 19:51 23:32 04:00 WBC RBC Hgb Hct MCV MCH MCHC RDW Plt Count Maury % (Auto) Maury # (Auto) Seg Neutrophils % Seg Neuts % (Manual) Lymphocytes % (Manual) Monocytes % (Manual) Basophils % (Manual) Nucleated RBC % Seg Neutrophils # Seg Neutrophils # Man Lymphocytes # (Manual) Monocytes # (Manual) Basophils # (Manual) PT INR APTT Fibrinogen D-Dimer ABG pH 7.276 L POC ABG pCO2 POC ABG pO2 77.7 L ABG Hemoglobin 7.2 L ABG Oxyhemoglobin ABG Sodium 122.6 L ABG Potassium ABG Chloride ABG Glucose 113 H Sodium Potassium Chloride Carbon Dioxide BUN Creatinine Glucose POC Glucose 130 H 114 H Lactic Acid Calcium Magnesium Iron Total Bilirubin Direct Bilirubin AST ALT Alkaline Phosphatase Ammonia CK-MB (CK-2) CK-MB (CK-2) Rel Index Total Protein Albumin Arterial Blood Glucose 113 H Arterial Blood Ionized Calcium Urine Creatinine Urine Total Protein Salicylates Acetaminophen Crossmatch 10/18/20 10/18/20 10/18/20 04:06 04:06 04:13 WBC RBC Hgb Hct MCV MCH MCHC RDW Plt Count Maury % (Auto) Maury # (Auto) Seg Neutrophils % Seg Neuts % (Manual) Lymphocytes % (Manual) Monocytes % (Manual) Basophils % (Manual) Nucleated RBC % Seg Neutrophils # Seg Neutrophils # Man Lymphocytes # (Manual) Monocytes # (Manual) Basophils # (Manual) PT 23.5 H INR 2.05 H APTT Fibrinogen D-Dimer ABG pH POC ABG pCO2 POC ABG pO2 ABG Hemoglobin ABG Oxyhemoglobin ABG Sodium ABG Potassium ABG Chloride ABG Glucose Sodium 123 L D Potassium Chloride 97.9 L Carbon Dioxide 16 L BUN 31 H Creatinine 3.1 H Glucose 113 H POC Glucose 108 H Lactic Acid Calcium 7.4 L Magnesium Iron Total Bilirubin Direct Bilirubin AST ALT Alkaline Phosphatase Ammonia CK-MB (CK-2) CK-MB (CK-2) Rel Index Total Protein Albumin Arterial Blood Glucose Arterial Blood Ionized Calcium Urine Creatinine Urine Total Protein Salicylates Acetaminophen Crossmatch 10/18/20 10/18/20 10/18/20 10:03 14:12 19:08 WBC RBC Hgb Hct MCV MCH MCHC RDW Plt Count Maury % (Auto) Maury # (Auto) Seg Neutrophils % Seg Neuts % (Manual) Lymphocytes % (Manual) Monocytes % (Manual) Basophils % (Manual) Nucleated RBC % Seg Neutrophils # Seg Neutrophils # Man Lymphocytes # (Manual) Monocytes # (Manual) Basophils # (Manual) PT INR APTT Fibrinogen D-Dimer ABG pH POC ABG pCO2 POC ABG pO2 ABG Hemoglobin ABG Oxyhemoglobin ABG Sodium ABG Potassium ABG Chloride ABG Glucose Sodium Potassium Chloride Carbon Dioxide BUN Creatinine Glucose POC Glucose 139 H 112 H Lactic Acid Calcium Magnesium Iron Total Bilirubin Direct Bilirubin AST ALT Alkaline Phosphatase Ammonia CK-MB (CK-2) CK-MB (CK-2) Rel Index Total Protein Albumin Arterial Blood Glucose Arterial Blood Ionized Calcium Urine Creatinine Urine Total Protein Salicylates Acetaminophen Crossmatch See Detail 10/18/20 10/19/20 10/19/20 Unknown 02:02 04:00 WBC 19.8 H RBC 2.95 L Hgb 6.9 L Hct 22.2 L MCV 75 L MCH 24 L MCHC 31 L RDW 33.6 H Plt Count 28 L Maury % (Auto) Maury # (Auto) Seg Neutrophils % Seg Neuts % (Manual) Lymphocytes % (Manual) Monocytes % (Manual) Basophils % (Manual) Nucleated RBC % Seg Neutrophils # Seg Neutrophils # Man Lymphocytes # (Manual) Monocytes # (Manual) Basophils # (Manual) PT INR APTT Fibrinogen D-Dimer ABG pH 7.234 L POC ABG pCO2 POC ABG pO2 53.9 L ABG Hemoglobin 8.9 L ABG Oxyhemoglobin 86.6 L ABG Sodium 118.1 L ABG Potassium ABG Chloride 94.0 L ABG Glucose 61 L Sodium Potassium Chloride Carbon Dioxide BUN Creatinine Glucose POC Glucose 64 L Lactic Acid Calcium Magnesium Iron Total Bilirubin Direct Bilirubin AST ALT Alkaline Phosphatase Ammonia CK-MB (CK-2) CK-MB (CK-2) Rel Index Total Protein Albumin Arterial Blood Glucose 61 L Arterial Blood Ionized Calcium 4.5 L Urine Creatinine Urine Total Protein Salicylates Acetaminophen Crossmatch 10/19/20 10/19/20 10/19/20 04:51 04:51 05:43 WBC 18.2 H RBC 3.26 L Hgb 7.9 L Hct 24.6 L MCV 76 L MCH 24 L MCHC RDW 30.7 H Plt Count 41 L Maury % (Auto) Maury # (Auto) Seg Neutrophils % Seg Neuts % (Manual) Lymphocytes % (Manual) Monocytes % (Manual) Basophils % (Manual) Nucleated RBC % Seg Neutrophils # Seg Neutrophils # Man Lymphocytes # (Manual) Monocytes # (Manual) Basophils # (Manual) PT INR APTT Fibrinogen D-Dimer ABG pH POC ABG pCO2 POC ABG pO2 ABG Hemoglobin ABG Oxyhemoglobin ABG Sodium ABG Potassium ABG Chloride ABG Glucose Sodium 122 L Potassium Chloride 94.6 L Carbon Dioxide 17 L BUN 33 H Creatinine 3.5 H Glucose 63 L POC Glucose 54 L Lactic Acid Calcium 7.3 L Magnesium Iron Total Bilirubin 1.50 H Direct Bilirubin 0.9 H AST ALT Alkaline Phosphatase 154 H Ammonia CK-MB (CK-2) CK-MB (CK-2) Rel Index Total Protein 4.2 L Albumin 1.9 L Arterial Blood Glucose Arterial Blood Ionized Calcium Urine Creatinine Urine Total Protein Salicylates Acetaminophen Crossmatch 10/19/20 10/19/20 10/19/20 11:23 11:45 14:24 WBC RBC Hgb Hct MCV MCH MCHC RDW Plt Count Maury % (Auto) Maury # (Auto) Seg Neutrophils % Seg Neuts % (Manual) Lymphocytes % (Manual) Monocytes % (Manual) Basophils % (Manual) Nucleated RBC % Seg Neutrophils # Seg Neutrophils # Man Lymphocytes # (Manual) Monocytes # (Manual) Basophils # (Manual) PT INR APTT Fibrinogen D-Dimer ABG pH POC ABG pCO2 POC ABG pO2 ABG Hemoglobin ABG Oxyhemoglobin ABG Sodium ABG Potassium ABG Chloride ABG Glucose Sodium Potassium Chloride Carbon Dioxide BUN Creatinine Glucose POC Glucose 47 L 117 H 47 L Lactic Acid Calcium Magnesium Iron Total Bilirubin Direct Bilirubin AST ALT Alkaline Phosphatase Ammonia CK-MB (CK-2) CK-MB (CK-2) Rel Index Total Protein Albumin Arterial Blood Glucose Arterial Blood Ionized Calcium Urine Creatinine Urine Total Protein Salicylates Acetaminophen Crossmatch 10/19/20 10/19/20 10/19/20 16:31 20:04 20:19 WBC RBC Hgb Hct MCV MCH MCHC RDW Plt Count Maury % (Auto) Maury # (Auto) Seg Neutrophils % Seg Neuts % (Manual) Lymphocytes % (Manual) Monocytes % (Manual) Basophils % (Manual) Nucleated RBC % Seg Neutrophils # Seg Neutrophils # Man Lymphocytes # (Manual) Monocytes # (Manual) Basophils # (Manual) PT INR APTT Fibrinogen D-Dimer ABG pH POC ABG pCO2 POC ABG pO2 ABG Hemoglobin ABG Oxyhemoglobin ABG Sodium ABG Potassium ABG Chloride ABG Glucose Sodium Potassium Chloride Carbon Dioxide BUN Creatinine Glucose 59 L POC Glucose 58 L 49 L Lactic Acid Calcium Magnesium Iron Total Bilirubin Direct Bilirubin AST ALT Alkaline Phosphatase Ammonia CK-MB (CK-2) CK-MB (CK-2) Rel Index Total Protein Albumin Arterial Blood Glucose Arterial Blood Ionized Calcium Urine Creatinine Urine Total Protein Salicylates Acetaminophen Crossmatch 10/20/20 10/20/20 10/20/20 00:17 03:59 08:43 WBC 13.1 H RBC 3.42 L Hgb 8.3 L Hct 25.3 L MCV 74 L MCH 24 L MCHC RDW 31.4 H Plt Count 35 L Maury % (Auto) Maury # (Auto) Seg Neutrophils % Seg Neuts % (Manual) Lymphocytes % (Manual) Monocytes % (Manual) Basophils % (Manual) Nucleated RBC % Seg Neutrophils # Seg Neutrophils # Man Lymphocytes # (Manual) Monocytes # (Manual) Basophils # (Manual) PT INR APTT Fibrinogen D-Dimer ABG pH POC ABG pCO2 POC ABG pO2 ABG Hemoglobin ABG Oxyhemoglobin ABG Sodium ABG Potassium ABG Chloride ABG Glucose Sodium Potassium Chloride Carbon Dioxide BUN Creatinine Glucose POC Glucose 29 L 47 L Lactic Acid Calcium Magnesium Iron Total Bilirubin Direct Bilirubin AST ALT Alkaline Phosphatase Ammonia CK-MB (CK-2) CK-MB (CK-2) Rel Index Total Protein Albumin Arterial Blood Glucose Arterial Blood Ionized Calcium Urine Creatinine Urine Total Protein Salicylates Acetaminophen Crossmatch 10/20/20 10/20/20 10/20/20 08:43 08:43 09:56 WBC RBC Hgb Hct MCV MCH MCHC RDW Plt Count Maury % (Auto) Maury # (Auto) Seg Neutrophils % Seg Neuts % (Manual) Lymphocytes % (Manual) Monocytes % (Manual) Basophils % (Manual) Nucleated RBC % Seg Neutrophils # Seg Neutrophils # Man Lymphocytes # (Manual) Monocytes # (Manual) Basophils # (Manual) PT 30.1 H INR 2.82 H APTT Fibrinogen D-Dimer ABG pH POC ABG pCO2 POC ABG pO2 ABG Hemoglobin ABG Oxyhemoglobin ABG Sodium ABG Potassium ABG Chloride ABG Glucose Sodium 119 L* Potassium Chloride 90.7 L Carbon Dioxide 20 L BUN 35 H Creatinine 3.3 H Glucose 57 L POC Glucose 61 L Lactic Acid Calcium 7.7 L Magnesium 1.30 L Iron Total Bilirubin 1.60 H Direct Bilirubin AST ALT Alkaline Phosphatase 152 H Ammonia CK-MB (CK-2) CK-MB (CK-2) Rel Index Total Protein 4.5 L Albumin 1.6 L Arterial Blood Glucose Arterial Blood Ionized Calcium Urine Creatinine Urine Total Protein Salicylates Acetaminophen Crossmatch 10/20/20 10/20/20 10/20/20 15:35 17:30 20:17 WBC RBC Hgb Hct MCV MCH MCHC RDW Plt Count Maury % (Auto) Maury # (Auto) Seg Neutrophils % Seg Neuts % (Manual) Lymphocytes % (Manual) Monocytes % (Manual) Basophils % (Manual) Nucleated RBC % Seg Neutrophils # Seg Neutrophils # Man Lymphocytes # (Manual) Monocytes # (Manual) Basophils # (Manual) PT INR APTT Fibrinogen D-Dimer ABG pH POC ABG pCO2 POC ABG pO2 ABG Hemoglobin ABG Oxyhemoglobin ABG Sodium ABG Potassium ABG Chloride ABG Glucose Sodium 121 L 120 L Potassium Chloride Carbon Dioxide BUN Creatinine Glucose POC Glucose 61 L Lactic Acid Calcium Magnesium Iron Total Bilirubin Direct Bilirubin AST ALT Alkaline Phosphatase Ammonia CK-MB (CK-2) CK-MB (CK-2) Rel Index Total Protein Albumin Arterial Blood Glucose Arterial Blood Ionized Calcium Urine Creatinine Urine Total Protein Salicylates Acetaminophen Crossmatch 10/20/20 10/20/20 10/21/20 23:00 23:37 01:00 WBC RBC Hgb Hct MCV MCH MCHC RDW Plt Count Maury % (Auto) Maury # (Auto) Seg Neutrophils % Seg Neuts % (Manual) Lymphocytes % (Manual) Monocytes % (Manual) Basophils % (Manual) Nucleated RBC % Seg Neutrophils # Seg Neutrophils # Man Lymphocytes # (Manual) Monocytes # (Manual) Basophils # (Manual) PT INR APTT Fibrinogen D-Dimer ABG pH POC ABG pCO2 POC ABG pO2 ABG Hemoglobin ABG Oxyhemoglobin ABG Sodium ABG Potassium ABG Chloride ABG Glucose Sodium 121 L Potassium Chloride Carbon Dioxide BUN Creatinine Glucose POC Glucose 33 L 36 L Lactic Acid Calcium Magnesium Iron Total Bilirubin Direct Bilirubin AST ALT Alkaline Phosphatase Ammonia CK-MB (CK-2) CK-MB (CK-2) Rel Index Total Protein Albumin Arterial Blood Glucose Arterial Blood Ionized Calcium Urine Creatinine Urine Total Protein Salicylates Acetaminophen Crossmatch 10/21/20 10/21/20 10/21/20 02:31 04:00 05:22 WBC RBC Hgb Hct MCV MCH MCHC RDW Plt Count Maury % (Auto) Maury # (Auto) Seg Neutrophils % Seg Neuts % (Manual) Lymphocytes % (Manual) Monocytes % (Manual) Basophils % (Manual) Nucleated RBC % Seg Neutrophils # Seg Neutrophils # Man Lymphocytes # (Manual) Monocytes # (Manual) Basophils # (Manual) PT INR APTT Fibrinogen D-Dimer ABG pH POC ABG pCO2 POC ABG pO2 66.6 L ABG Hemoglobin 8.7 L ABG Oxyhemoglobin 92.1 L ABG Sodium 117.9 L ABG Potassium 3.2 L ABG Chloride 93.0 L ABG Glucose Sodium Potassium Chloride Carbon Dioxide BUN Creatinine Glucose POC Glucose 51 L 64 L Lactic Acid Calcium Magnesium Iron Total Bilirubin Direct Bilirubin AST ALT Alkaline Phosphatase Ammonia CK-MB (CK-2) CK-MB (CK-2) Rel Index Total Protein Albumin Arterial Blood Glucose Arterial Blood Ionized Calcium 4.4 L Urine Creatinine Urine Total Protein Salicylates Acetaminophen Crossmatch 10/21/20 10/21/20 10/21/20 05:50 05:50 10:32 WBC 11.1 H RBC 3.27 L Hgb 7.9 L Hct 23.9 L MCV 73 L MCH 24 L MCHC RDW 31.8 H Plt Count 26 L Maury % (Auto) Maury # (Auto) Seg Neutrophils % Seg Neuts % (Manual) Lymphocytes % (Manual) Monocytes % (Manual) Basophils % (Manual) Nucleated RBC % Seg Neutrophils # Seg Neutrophils # Man Lymphocytes # (Manual) Monocytes # (Manual) Basophils # (Manual) PT INR APTT Fibrinogen D-Dimer ABG pH POC ABG pCO2 POC ABG pO2 ABG Hemoglobin ABG Oxyhemoglobin ABG Sodium ABG Potassium ABG Chloride ABG Glucose Sodium 122 L Potassium 3.4 L Chloride 91.1 L Carbon Dioxide BUN 38 H Creatinine 3.2 H Glucose 56 L POC Glucose 68 L Lactic Acid Calcium 7.8 L Magnesium 1.60 L Iron Total Bilirubin Direct Bilirubin AST ALT Alkaline Phosphatase Ammonia CK-MB (CK-2) CK-MB (CK-2) Rel Index Total Protein Albumin Arterial Blood Glucose Arterial Blood Ionized Calcium Urine Creatinine Urine Total Protein Salicylates Acetaminophen Crossmatch 10/21/20 10/21/20 10/21/20 14:05 17:15 18:41 WBC RBC Hgb Hct MCV MCH MCHC RDW Plt Count Maury % (Auto) Maury # (Auto) Seg Neutrophils % Seg Neuts % (Manual) Lymphocytes % (Manual) Monocytes % (Manual) Basophils % (Manual) Nucleated RBC % Seg Neutrophils # Seg Neutrophils # Man Lymphocytes # (Manual) Monocytes # (Manual) Basophils # (Manual) PT INR APTT Fibrinogen D-Dimer ABG pH POC ABG pCO2 POC ABG pO2 ABG Hemoglobin ABG Oxyhemoglobin ABG Sodium ABG Potassium ABG Chloride ABG Glucose Sodium Potassium Chloride Carbon Dioxide BUN Creatinine Glucose POC Glucose 61 L 53 L 110 H Lactic Acid Calcium Magnesium Iron Total Bilirubin Direct Bilirubin AST ALT Alkaline Phosphatase Ammonia CK-MB (CK-2) CK-MB (CK-2) Rel Index Total Protein Albumin Arterial Blood Glucose Arterial Blood Ionized Calcium Urine Creatinine Urine Total Protein Salicylates Acetaminophen Crossmatch 10/21/20 10/21/20 10/21/20 21:08 22:20 Unknown WBC RBC Hgb Hct MCV MCH MCHC RDW Plt Count Maury % (Auto) Maury # (Auto) Seg Neutrophils % Seg Neuts % (Manual) Lymphocytes % (Manual) Monocytes % (Manual) Basophils % (Manual) Nucleated RBC % Seg Neutrophils # Seg Neutrophils # Man Lymphocytes # (Manual) Monocytes # (Manual) Basophils # (Manual) PT INR APTT Fibrinogen D-Dimer ABG pH POC ABG pCO2 POC ABG pO2 ABG Hemoglobin ABG Oxyhemoglobin ABG Sodium ABG Potassium ABG Chloride ABG Glucose Sodium 123 L 125 L Potassium 3.2 L Chloride 94.1 L Carbon Dioxide BUN 40 H Creatinine 3.3 H Glucose 64 L POC Glucose 117 H Lactic Acid Calcium 7.6 L Magnesium Iron Total Bilirubin Direct Bilirubin AST ALT Alkaline Phosphatase Ammonia CK-MB (CK-2) CK-MB (CK-2) Rel Index Total Protein Albumin Arterial Blood Glucose Arterial Blood Ionized Calcium Urine Creatinine Urine Total Protein Salicylates Acetaminophen Crossmatch 10/21/20 10/21/20 10/22/20 Unknown Unknown 02:43 WBC RBC 3.40 L Hgb 8.4 L Hct 24.8 L MCV 73 L MCH 25 L MCHC RDW 31.5 H Plt Count 21 L Maury % (Auto) Maury # (Auto) Seg Neutrophils % Seg Neuts % (Manual) 83.0 H Lymphocytes % (Manual) 10.0 L Monocytes % (Manual) Basophils % (Manual) Nucleated RBC % 2.0 H Seg Neutrophils # Seg Neutrophils # Man 9.0 H Lymphocytes # (Manual) 1.1 L Monocytes # (Manual) Basophils # (Manual) PT 27.0 H INR 2.44 H APTT 61.4 H* Fibrinogen 482 H D-Dimer 1992.93 H ABG pH POC ABG pCO2 POC ABG pO2 ABG Hemoglobin ABG Oxyhemoglobin ABG Sodium ABG Potassium ABG Chloride ABG Glucose Sodium 122 L Potassium 3.1 L Chloride 92.9 L Carbon Dioxide BUN 44 H Creatinine 3.2 H Glucose POC Glucose Lactic Acid Calcium 7.8 L Magnesium Iron Total Bilirubin Direct Bilirubin AST ALT Alkaline Phosphatase Ammonia CK-MB (CK-2) CK-MB (CK-2) Rel Index Total Protein Albumin Arterial Blood Glucose Arterial Blood Ionized Calcium Urine Creatinine Urine Total Protein Salicylates Acetaminophen Crossmatch 10/22/20 10/22/20 10/22/20 04:00 06:00 20:00 WBC RBC 3.29 L Hgb 8.0 L Hct 24.3 L MCV 74 L MCH 24 L MCHC RDW 32.2 H Plt Count 21 L Maury % (Auto) Maury # (Auto) Seg Neutrophils % Seg Neuts % (Manual) Lymphocytes % (Manual) Monocytes % (Manual) Basophils % (Manual) Nucleated RBC % Seg Neutrophils # Seg Neutrophils # Man Lymphocytes # (Manual) Monocytes # (Manual) Basophils # (Manual) PT INR APTT Fibrinogen D-Dimer ABG pH POC ABG pCO2 29.1 L POC ABG pO2 64.1 L ABG Hemoglobin 8.2 L ABG Oxyhemoglobin 90.6 L ABG Sodium 118.8 L ABG Potassium ABG Chloride 96.0 L ABG Glucose 117 H Sodium 126 L Potassium Chloride 95.8 L Carbon Dioxide 21 L BUN 50 H Creatinine 3.4 H Glucose POC Glucose Lactic Acid Calcium 7.9 L Magnesium Iron Total Bilirubin Direct Bilirubin AST ALT Alkaline Phosphatase Ammonia CK-MB (CK-2) CK-MB (CK-2) Rel Index Total Protein Albumin Arterial Blood Glucose 117 H Arterial Blood Ionized Calcium Urine Creatinine Urine Total Protein Salicylates Acetaminophen Crossmatch 10/23/20 10/23/20 10/23/20 04:00 05:35 05:35 WBC RBC 2.94 L Hgb 7.3 L Hct 21.3 L MCV 72 L MCH 25 L MCHC RDW 32.3 H Plt Count 56 L D Maury % (Auto) Maury # (Auto) Seg Neutrophils % Seg Neuts % (Manual) 83.0 H Lymphocytes % (Manual) 9.0 L Monocytes % (Manual) Basophils % (Manual) Nucleated RBC % 3.0 H Seg Neutrophils # Seg Neutrophils # Man Lymphocytes # (Manual) 0.7 L Monocytes # (Manual) Basophils # (Manual) PT INR APTT Fibrinogen D-Dimer ABG pH POC ABG pCO2 29.0 L POC ABG pO2 ABG Hemoglobin 7.7 L ABG Oxyhemoglobin ABG Sodium 120.4 L ABG Potassium ABG Chloride 97.0 L ABG Glucose Sodium 128 L Potassium Chloride 96.7 L Carbon Dioxide BUN 56 H Creatinine 3.4 H Glucose POC Glucose Lactic Acid Calcium Magnesium Iron Total Bilirubin Direct Bilirubin AST ALT Alkaline Phosphatase Ammonia CK-MB (CK-2) CK-MB (CK-2) Rel Index Total Protein Albumin Arterial Blood Glucose Arterial Blood Ionized Calcium Urine Creatinine Urine Total Protein Salicylates Acetaminophen Crossmatch 10/23/20 10/24/20 10/24/20 21:01 03:00 05:27 WBC RBC 2.98 L Hgb 7.4 L Hct 21.8 L MCV 73 L MCH 25 L MCHC RDW 32.2 H Plt Count 56 L Maury % (Auto) Maury # (Auto) Seg Neutrophils % Seg Neuts % (Manual) Lymphocytes % (Manual) Monocytes % (Manual) Basophils % (Manual) Nucleated RBC % Seg Neutrophils # Seg Neutrophils # Man Lymphocytes # (Manual) Monocytes # (Manual) Basophils # (Manual) PT INR APTT Fibrinogen D-Dimer ABG pH 7.490 H POC ABG pCO2 26.8 L POC ABG pO2 ABG Hemoglobin 3.3 L ABG Oxyhemoglobin 83.6 L ABG Sodium 118.0 L ABG Potassium ABG Chloride 97.0 L ABG Glucose Sodium Potassium Chloride Carbon Dioxide BUN Creatinine Glucose POC Glucose > 600 H Lactic Acid Calcium Magnesium Iron Total Bilirubin Direct Bilirubin AST ALT Alkaline Phosphatase Ammonia CK-MB (CK-2) CK-MB (CK-2) Rel Index Total Protein Albumin Arterial Blood Glucose Arterial Blood Ionized Calcium 4.5 L Urine Creatinine Urine Total Protein Salicylates Acetaminophen Crossmatch 10/24/20 10/24/20 10/24/20 05:27 05:27 10:07 WBC RBC Hgb Hct MCV MCH MCHC RDW Plt Count Maury % (Auto) Maury # (Auto) Seg Neutrophils % Seg Neuts % (Manual) Lymphocytes % (Manual) Monocytes % (Manual) Basophils % (Manual) Nucleated RBC % Seg Neutrophils # Seg Neutrophils # Man Lymphocytes # (Manual) Monocytes # (Manual) Basophils # (Manual) PT 20.4 H INR 1.70 H APTT Fibrinogen D-Dimer ABG pH POC ABG pCO2 POC ABG pO2 ABG Hemoglobin ABG Oxyhemoglobin ABG Sodium ABG Potassium ABG Chloride ABG Glucose Sodium 123 L Potassium 3.5 L Chloride 93.3 L Carbon Dioxide 20 L BUN 66 H Creatinine 3.9 H Glucose POC Glucose 110 H Lactic Acid Calcium 8.1 L Magnesium Iron Total Bilirubin Direct Bilirubin AST 54 H ALT Alkaline Phosphatase 316 H Ammonia CK-MB (CK-2) CK-MB (CK-2) Rel Index Total Protein 5.1 L Albumin 1.7 L Arterial Blood Glucose Arterial Blood Ionized Calcium Urine Creatinine Urine Total Protein Salicylates Acetaminophen Crossmatch Chest x-ray: pending Allied health notes reviewed: nursing
--- NOTE | 2020-10-24 11:43 | XRay Report ---
XR abdomen 1V ap INDICATION: ngt placement verification. COMPARISON: None available. FINDINGS: The tip of the esophagogastric tube projects over the gastroesophageal junction. Progression of the t ube is recommended.. Signer Name: Elliot Winters MD Signed: 10/24/2020 11:39 AM Workstation Name: [email or web address]
--- NOTE | 2020-10-24 14:40 | Progress Note ---
Assessment and Plan Paroxysmal Afib w/RVR Tachycardia HFrEF * EKG 10/20/2020- sinus rhythm 80s * EKG 10/18/2020 shows Afib 98s with paired ventricular premature complexes * Given pt's hemodynamic instability (currently requiring multiple vasopressors), unable to start BB or non-dihydropyridine CCB * Converted back to AFib but rate controlled. Will hold amio drip for now * Would not recommend anticoagulation currently given low AF burden and anemia/thrombocytopenia * Echo 10/04/2020-EF 25 to 30%, right ventricle severely dilated and moderately hypokinetic, left atrium is mildly dilated, right atrium severely dilated, moderate to severe tricuspid regurgitation, moderate mitral regurgitation tricuspid annulus dilated. Significant narrowing in bilateral posterior cerebral arteries Left-sided hemiparesis with aphasia Atherosclerotic cerebrovascular disease * Neurology following BETSY * Nephrology following Acute hypoxic respiratory failure * Pulmonology following Patient converted back to afib but rate controlled. Will hold amio as long patient is rate controlled Patient seen in conjunction with Dr. Rebolledo who agrees with this plan of care. Will continue to follow - Patient Problems (1) Afib Current Visit: Yes Status: Acute (2) Acute encephalopathy Current Visit: Yes Status: Acute (3) Atherosclerotic cerebrovascular disease Current Visit: Yes Status: Acute (4) Hypoglycemia Current Visit: Yes Status: Acute (5) Left-sided weakness Current Visit: Yes Status: Acute (6) Microcytic anemia Current Visit: Yes Status: Acute (7) Pulmonary infiltrate in right lung on CXR Current Visit: Yes Status: Acute (8) HFrEF (heart failure with reduced ejection fraction) Current Visit: Yes Status: Acute (9) Dilated cardiomyopathy Current Visit: Yes Status: Acute Subjective Date of service: 10/24/20 Principal diagnosis: Ac hypoxemic resp failure; Pneumonia; BETSY; Ac. encephalopathy Interval history: Patient intubated Patient afib 80s-90s on monitor Objective Last Vital Signs Temp 98.1 F 10/24/20 11:42 Pulse 99 H 10/24/20 13:06 Resp 21 10/24/20 12:15 BP 99/57 10/24/20 13:06 Pulse Ox 96 10/24/20 13:06 - Physical Examination General: Other (intubated) HEENT: Positive: Mucus Membranes Dry Neck: Positive: trachea midline Cardiac: Positive: irregularly irregular Lungs: Positive: Ventilated Respirations Neuro: Positive: Other (intubated) Abdomen: Positive: Soft Skin: Negative: Rash Extremities: Present: upper extr. pulses, lower extr. pulses - Labs and Meds Cardiac Enzymes 10/24/20 Range/Units 05:27 AST 54 H (5-40) units/L Coagulation 10/24/20 Range/Units 05:27 PT 20.4 H (12.2-14.9) Sec. INR 1.70 H (0.87-1.13) CBC 10/24/20 Range/Units 05:27 WBC 8.7 (4.5-11.0) K/mm3 RBC 2.98 L (3.65-5.03) M/mm3 Hgb 7.4 L (11.8-15.2) gm/dl Hct 21.8 L (35.5-45.6) % Plt Count 56 L (140-440) K/mm3 Comprehensive Metabolic Panel 10/23/20 10/24/20 Range/Units 21:31 05:27 Sodium 123 L (137-145) mmol/L Potassium 3.5 L (3.6-5.0) mmol/L Chloride 93.3 L (98-107) mmol/L Carbon Dioxide 20 L (22-30) mmol/L BUN 66 H (9-20) mg/dL Creatinine 3.9 H (0.8-1.3) mg/dL Glucose 95 98 (75-100) mg/dL Calcium 8.1 L (8.4-10.2) mg/dL AST 54 H (5-40) units/L ALT 54 (7-56) units/L Alkaline Phosphatase 316 H (35-129) units/L Total Protein 5.1 L (6.3-8.2) g/dL Albumin 1.7 L (3.9-5) g/dL - Imaging and Cardiology EKG: report reviewed, image reviewed Echo: report reviewed - Telemetry EKG Rhythm: Atrial Fibrillation - EKG Supraventricular dysrhythmia: atrial fibrillation - Allied health notes Allied health notes reviewed: nursing
[2020-10-24 16:31] LABS: Hepatitis C Virus Antibody Non-Reactive (NonReactive)
[2020-10-24 16:53] LABS: Hepatitis B Surface Antigen Nonreactive (Negative)
--- NOTE | 2020-10-24 17:05 | Event Note ---
Date: 10/24/20 (1600) CHARLIEK daughter- Mignon updated on plan of care consented for both trialysis/dialysis line and Hemodialysis- see chart
--- NOTE | 2020-10-24 17:07 | Procedure Note ---
Date of procedure: 10/24/20 (trialysis catheter) Pre-op diagnosis: BETSY Post-op diagnosis: same Procedure: trialysis catheter placed in RIJ without difficulty procedure under sterile technique used maximal sterile barrier site prepped with chg RIJ cannulated without difficulty using US guidance sutured in place biopatch, sterile dressing applied chest xray to confirm placement pt tolerated well no EBL VSS during entire procedure Time spent not included Estimated blood loss: none Pathology: none Disposition: ICU
--- NOTE | 2020-10-24 17:24 | XRay Report ---
CHEST 1 VIEW INDICATION / CLINICAL INFORMATION: line placement. COMPARISON: 10/21/2020 FINDINGS: SUPPORT DEVICES: Interval placement of right IJ central venous catheter with tip at the superior cavo atrial junction. Otherwise, no change. HEART / MEDIASTINUM: No significant abnormality. LUNGS / PLEURA: Persistent bibasilar airspace opacities, not significantly changed. No pneumothorax. ADDITIONAL FINDINGS: No significant additional findings. IMPRESSION: Interval placement of right IJ central venous catheter with tip at the superior cavoatrial junction. Otherwise, no significant change. Signer Name: Yordan Mueller MD Signed: 10/24/2020 5:20 PM Workstation Name: [email or web address]
[2020-10-24] MEDS: MIDODRINE 5 MG TAB PO SCH (18:24)
--- NOTE | 2020-10-24 18:35 | Progress Note ---
Assessment and Plan Assessment and plan: #Atherosclerotic cerebrovascular disease #Altered mental status -Persistent -Neurology following, recs appreciated -Continue Keppra, seizure precautions -Continue thiamine and folate -Status post EEG #Paroxysmal atrial fibrillation #Heart failure reduced ejection fraction -EF 10-15%, recent echo EF 25-30% -We will maintain MAP greater than 65 -Continue dobutamine via PICC line (placed 10/16) -Midodrine started per primary care -Cardiology following -We will hold amiodarone as long as patient is in sinus rhythm -Continue Lasix drip, patient is significantly volume overloaded #Acute hypoxic respiratory failure -Currently on mechanical ventilation (intubated 10/15) -Vent settings: A/C, rate 20, TV 500, PEEP 8, FiO2 30% -CCM following, assistance appreciated -Continue stress dose steroids #BETSY -Nephrology following -Vas-Cath placed today for HD #Superficial venous thrombosis -Bilateral upper and lower extremity Doppler ultrasound show superficial venous thrombus of left basilic and cephalic veins #Thrombocytopenia -Platelet count 56 today; lowest 21 -Improving we will continue to monitor #GI bleed -Continue protonix -GI consulted in the past, will hold off EGD/PEG given clinical condition Total Time Spent with Patient (Minutes): 20 minutes History Interval history: No acute events overnight. Patient on mechanical ventilation and not responsive to commands. Hospitalist Physical - Constitutional Vitals: Temp Pulse Resp BP Pulse Ox 97.0 F L 98 H 20 132/68 97 10/24/20 15:15 10/24/20 18:15 10/24/20 18:15 10/24/20 18:15 10/24/20 18:15 General appearance: Present: no acute distress, other (intubated and minimally responsive to tactile stimuli) - Respiratory Respiratory: bilateral: other (coarse breath sounds) - Cardiovascular Rhythm: regular - Extremities Extremity abnormal: edema (significant generalized edema), cold - Abdominal General gastrointestinal: soft, non-distended - Psychiatric Psychiatric: other (unable to assess due to mental status) - Neurologic Neurologic: other (unable to assess) - Allied Health Allied health notes reviewed: nursing HEART Score - HEART Score Troponin: Troponin T < 0.010 ng/mL (0.00-0.029) 10/02/20 23:17 Results - Labs CBC & Chem 7: 10/24/20 05:27 10/24/20 15:28 Labs: Laboratory Last Values WBC 8.7 K/mm3 (4.5-11.0) 10/24/20 05:27 RBC 2.98 M/mm3 (3.65-5.03) L 10/24/20 05:27 Hgb 7.4 gm/dl (11.8-15.2) L 10/24/20 05:27 Hct 21.8 % (35.5-45.6) L 10/24/20 05:27 MCV 73 fl (84-94) L 10/24/20 05:27 MCH 25 pg (28-32) L 10/24/20 05:27 MCHC 34 % (32-34) 10/24/20 05:27 RDW 32.2 % (13.2-15.2) H 10/24/20 05:27 Plt Count 56 K/mm3 (140-440) L 10/24/20 05:27 Lymph % (Auto) Fish Bailer 10/10/20 10:58 Nash % (Auto) 8.3 % (0.0-7.3) H 10/15/20 05:50 Eos % (Auto) 0.3 % (0.0-4.3) 10/15/20 05:50 Baso % (Auto) Fish [employer]er 10/10/20 10:58 Lymph # (Auto) Fish Bailer 10/10/20 10:58 Nash # (Auto) 1.3 K/mm3 (0.0-0.8) H 10/15/20 05:50 Eos # (Auto) 0.0 K/mm3 (0.0-0.4) 10/15/20 05:50 Baso # (Auto) 0.1 K/mm3 (0.0-0.1) 10/15/20 05:50 Add Manual Diff Complete 10/23/20 05:35 Total Counted 100 10/23/20 05:35 Seg Neutrophils % Fish Bailer 10/21/20 Unknown Seg Neuts % (Manual) 83.0 % (40.0-70.0) H 10/23/20 05:35 Band Neutrophils % 5.0 % 10/23/20 05:35 Lymphocytes % (Manual) 9.0 % (13.4-35.0) L 10/23/20 05:35 Reactive Lymphs % (Man) 1.0 % 10/23/20 05:35 Monocytes % (Manual) 1.0 % (0.0-7.3) 10/23/20 05:35 Eosinophils % (Manual) 1.0 % (0.0-4.3) 10/23/20 05:35 Basophils % (Manual) 2.0 % (0.0-1.8) H 10/10/20 10:58 Metamyelocytes % 11.0 % 10/17/20 04:49 Myelocytes % 7.0 % 10/17/20 04:49 Nucleated RBC % 3.0 % (0.0-0.9) H 10/23/20 05:35 Seg Neutrophils # 13.2 K/mm3 (1.8-7.7) H 10/15/20 05:50 Seg Neutrophils # Man 6.1 K/mm3 (1.8-7.7) 10/23/20 05:35 Band Neutrophils # 0.4 K/mm3 10/23/20 05:35 Lymphocytes # (Manual) 0.7 K/mm3 (1.2-5.4) L 10/23/20 05:35 Abs React Lymphs (Man) 0.1 K/mm3 10/23/20 05:35 Monocytes # (Manual) 0.1 K/mm3 (0.0-0.8) 10/23/20 05:35 Eosinophils # (Manual) 0.1 K/mm3 (0.0-0.4) 10/23/20 05:35 Basophils # (Manual) 0.0 K/mm3 (0.0-0.1) 10/23/20 05:35 Metamyelocytes # 0.0 K/mm3 10/23/20 05:35 Myelocytes # 0.0 K/mm3 10/23/20 05:35 Promyelocytes # 0.0 K/mm3 10/23/20 05:35 Blast Cells # 0.0 K/mm3 10/23/20 05:35 WBC Morphology Not Reportable 10/23/20 05:35 Hypersegmented Neuts Not Reportable 10/23/20 05:35 Hyposegmented Neuts Not Reportable 10/23/20 05:35 Hypogranular Neuts Not Reportable 10/23/20 05:35 Smudge Cells Not Reportable 10/23/20 05:35 Toxic Granulation 1+ 10/23/20 05:35 Toxic Vacuolation 1+ 10/23/20 05:35 Dohle Bodies 1+ 10/23/20 05:35 Pelger-Huet Anomaly Not Reportable 10/23/20 05:35 Andrés Rods Not Reportable 10/23/20 05:35 Platelet Estimate Consistent w auto 10/23/20 05:35 Clumped Platelets Not Reportable 10/23/20 05:35 Plt Clumps, EDTA Not Reportable 10/23/20 05:35 Large Platelets Not Reportable 10/23/20 05:35 Giant Platelets Not Reportable 10/23/20 05:35 Platelet Satelliting Not Reportable 10/23/20 05:35 Plt Morphology Comment Not Reportable 10/23/20 05:35 RBC Morphology Not Reportable 10/23/20 05:35 Dimorphic RBCs Not Reportable 10/23/20 05:35 Polychromasia 1+ 10/23/20 05:35 Hypochromasia 2+ 10/23/20 05:35 Poikilocytosis 2+ 10/23/20 05:35 Anisocytosis 3+ 10/23/20 05:35 Microcytosis Not Reportable 10/23/20 05:35 Macrocytosis Not Reportable 10/23/20 05:35 Spherocytes 1+ 10/23/20 05:35 Pappenheimer Bodies Not Reportable 10/23/20 05:35 Sickle Cells Not Reportable 10/23/20 05:35 Target Cells 1+ 10/23/20 05:35 Tear Drop Cells Not Reportable 10/23/20 05:35 Ovalocytes Not Reportable 10/23/20 05:35 Helmet Cells Not Reportable 10/23/20 05:35 Freedman-[place] Bodies Not Reportable 10/23/20 05:35 [place] Rings Not Reportable 10/23/20 05:35 Peever Cells Not Reportable 10/23/20 05:35 Bite Cells Not Reportable 10/23/20 05:35 Crenated Cell Not Reportable 10/23/20 05:35 Elliptocytes Not Reportable 10/23/20 05:35 Acanthocytes (Spur) 1+ 10/23/20 05:35 Rouleaux Not Reportable 10/23/20 05:35 Hemoglobin C Crystals Not Reportable 10/23/20 05:35 Schistocytes Not Reportable 10/23/20 05:35 Malaria parasites Not Reportable 10/23/20 05:35 Dereck Bodies Not Reportable 10/23/20 05:35 Hem Pathologist Commnt No 10/23/20 05:35 PT 20.4 Sec. (12.2-14.9) H 10/24/20 05:27 INR 1.70 (0.87-1.13) H 10/24/20 05:27 APTT 61.4 Sec. (24.2-36.6) H* 10/21/20 Unknown Thrombin Time 17.8 Sec. (15.1-19.6) 10/02/20 23:17 Fibrinogen 482 mg/dl (211-480) H 10/21/20 Unknown D-Dimer 1992.93 ng/mlDDU (0-234) H 10/21/20 Unknown ABG pH 7.490 (7.320-7.450) H 10/24/20 03:00 POC ABG pCO2 26.8 mmHg (32.0-48.0) L 10/24/20 03:00 POC ABG pO2 Not Reportable 10/24/20 03:00 POC ABG HCO3 20.0 10/24/20 03:00 ABG O2 Saturation 84.6 (0-100) 10/24/20 03:00 POC ABG Base Excess -3.5 10/24/20 03:00 ABG Hemoglobin 3.3 (12.0-17.5) L 10/24/20 03:00 ABG Oxyhemoglobin 83.6 (94-98) L 10/24/20 03:00 ABG Methemoglobin 0.3 (0.0-1.5) 10/24/20 03:00 ABG Sodium 118.0 mmol/L (136.0-145.0) L 10/24/20 03:00 ABG Potassium 3.6 mmol/L (3.40-4.50) 10/24/20 03:00 ABG Chloride 97.0 mmol/L (98-107) L 10/24/20 03:00 ABG Glucose 89 mg/dL (65-95) 10/24/20 03:00 Carboxyhemoglobin 0.9 (0.5-1.5) 10/24/20 03:00 FiO2 % 40.0 10/24/20 03:00 Sodium 123 mmol/L (137-145) L 10/24/20 05:27 Potassium 3.5 mmol/L (3.6-5.0) L 10/24/20 05:27 Chloride 93.3 mmol/L (98-107) L 10/24/20 05:27 Carbon Dioxide 20 mmol/L (22-30) L 10/24/20 05:27 Anion Gap 13 mmol/L 10/24/20 05:27 BUN 66 mg/dL (9-20) H 10/24/20 05:27 Creatinine 3.9 mg/dL (0.8-1.3) H 10/24/20 05:27 Estimated GFR 18 ml/min 10/24/20 05:27 BUN/Creatinine Ratio 17 % 10/24/20 05:27 Glucose 81 mg/dL (75-100) 10/24/20 15:28 POC Glucose 121 mg/dL (70-105) H 10/24/20 18:24 Hemoglobin A1c 5.2 % (4-6) 10/03/20 05:57 Osmolality 267 Mosm/kg 10/07/20 13:54 Lactic Acid 1.50 mmol/L (0.7-2.0) 10/03/20 04:43 Calcium 8.1 mg/dL (8.4-10.2) L 10/24/20 05:27 Phosphorus 2.80 mg/dL (2.5-4.5) 10/23/20 05:35 Magnesium 2.10 mg/dL (1.7-2.3) 10/23/20 05:35 Iron 42 ug/dL (49-181) L 10/03/20 05:57 TIBC 305 mcg/dL (250-450) 10/03/20 05:57 Total Bilirubin 0.80 mg/dL (0.1-1.2) 10/24/20 05:27 Direct Bilirubin 0.9 mg/dL (0-0.2) H 10/19/20 04:51 Indirect Bilirubin 0.6 mg/dL 10/19/20 04:51 AST 54 units/L (5-40) H 10/24/20 05:27 ALT 54 units/L (7-56) 10/24/20 05:27 Alkaline Phosphatase 316 units/L (35-129) H 10/24/20 05:27 Ammonia 36.0 umol/L (25-60) 10/24/20 05:27 Total Creatine Kinase 88 units/L (55-170) 10/02/20 23:17 CK-MB (CK-2) 7.5 ng/mL (0.0-4.0) H 10/02/20 23:17 CK-MB (CK-2) Rel Index 8.5 (0-4) H 10/02/20 23:17 Troponin T < 0.010 ng/mL (0.00-0.029) 10/02/20 23:17 Total Protein 5.1 g/dL (6.3-8.2) L 10/24/20 05:27 Albumin 1.7 g/dL (3.9-5) L 10/24/20 05:27 Albumin/Globulin Ratio 0.5 % 10/24/20 05:27 Lipase 17 units/L (13-60) 10/16/20 22:58 Procalcitonin 0.10 ng/mL (<0.15) 10/10/20 10:58 TSH 2.130 mlU/mL (0.270-4.200) 10/07/20 13:54 Total Cortisol 17.4 mcg/dL () 10/09/20 02:46 Arterial Blood Glucose 89 mg/dL (65-95) 10/24/20 03:00 Arterial Blood Ionized Calcium 4.5 mg/dL (4.6-5.3) L 10/24/20 03:00 Urine Eosinophils None seen (None Seen) 10/14/20 Unknown Urine Osmolality 223 Mosm/kg 10/07/20 Unknown Urine Creatinine 144.2 mg/dL (0.1-20.0) H 10/14/20 Unknown Protein/Creatinin Ratio 0.67 10/14/20 Unknown Urine Sodium 10 mmol/L 10/14/20 Unknown Urine Total Protein 97 mg/dL (5-11.8) H 10/14/20 Unknown Salicylates < 0.3 mg/dL (2.8-20.0) L 10/02/20 23:17 Acetaminophen 5.0 ug/mL (10.0-30.0) L 10/02/20 23:17 Plasma/Serum Alcohol < 0.01 % (0-0.07) 10/02/20 23:17 Coronavirus (PCR) Negative (Negative) 10/14/20 08:00 Hepatitis A IgM Ab Non-reactive (NonReactive) 10/24/20 15:28 Hep Bs Antigen Nonreactive (Negative) 10/24/20 15:28 Hep B Core IgM Ab Non-reactive (NonReactive) 10/24/20 15:28 Hepatitis C Antibody Non-reactive (NonReactive) 10/24/20 15:28 Blood Type O POSITIVE 10/22/20 15:05 Antibody Screen Negative 10/18/20 19:08 Crossmatch See Detail 10/18/20 19:08 Jackson/IV: Voiding Method Indwelling Catheter Active Medications - Current Medications Current Medications: Generic Name Dose Route Start Last Admin Trade Name Freq PRN Reason Stop Dose Admin Acetaminophen 650 mg 10/03/20 02:10 10/06/20 15:28 Acetaminophen 325 Mg Tab PO 650 mg Q4H PRN Administration Pain MILD(1-3)/Fever >100.5/ROMERO Al Hydrox/Mg Hydrox/Simethicone 30 ml 10/03/20 02:10 Alum-Mag Hydroxide-Simethicone 080-208-79es/5ml Oral Liqd 30 Ml PO Q4H PRN Indigestion Lipase/Protease/Amylase 1 each 10/03/20 16:51 Lipase 10,500/Protease 25,000/Amylase 43,750 (Units) Dr Reis FEEDTUBE PRN PRN For Clogged Feeding Tube Dextrose 50 ml 10/16/20 12:42 10/21/20 17:39 Dextrose 50% In Water (25gm) 50 Ml Syringe IV 50 ml Q30MIN PRN Administration Hypoglycemia Protocol Fentanyl 50 mcg 10/22/20 10:00 Fentanyl 100 Mcg/2 Ml Inj IV Q4HR PRN Pain , Severe (7-10) Ferrous Sulfate 308 mg 10/16/20 10:00 10/24/20 09:43 Ferrous Sulfate 308 Mg (62mg Elemental Iron) / 7 Ml Elixir FEEDTUBE 308 mg DAILY JOSE Administration Folic Acid 1 mg 10/03/20 10:00 10/24/20 09:43 Folic Acid 1 Mg Tab PO 1 mg QDAY JOSE Administration Hydrocortisone Sodium Succinate 50 mg 10/24/20 10:00 10/24/20 18:24 Hydrocortisone Sod Succ 100 Mg/2 Ml Vial IV 10/24/20 23:59 50 mg Q8H JOSE Administration Hydrocortisone Sodium Succinate 50 mg 10/25/20 10:00 Hydrocortisone Sod Succ 100 Mg/2 Ml Vial IV 10/25/20 22:01 Q12H JOSE Hydrocortisone Sodium Succinate 50 mg 10/26/20 10:00 Hydrocortisone Sod Succ 100 Mg/2 Ml Vial IV 10/27/20 10:01 Q24H JOSE Levetiracetam 250 mg/ Dextrose 102.5 mls @ 400 mls/hr 10/10/20 22:00 10/24/20 09:42 IV 400 mls/hr Q12HR JOSE Administration Vasopressin 20 unit/ Sodium 101 mls @ 9.09 mls/hr 10/16/20 13:00 10/24/20 00:30 Chloride IV 0 units/min TITR JOSE 0 mls/hr Titration Protocol 0.03 UNITS/MIN NORepinephrine/NS 8 MG-250 ML 8 mg in 250 mls @ 3.75 mls/hr 10/16/20 19:00 10/21/20 16:56 Norepinephrine/Ns 8 Mg-250 Ml (Double Conc) IV 0 mcg/min TITRATE JOSE 0 mls/hr Titration Protocol 2 MCG/MIN Dobutamine HCl/Dextrose 500 mg in 250 mls @ 6.908 mls/hr 10/16/20 19:00 10/23/20 21:29 Dobutrex Drip 500mg/D5w 250ml IV 2.5 mcg/kg/min DIRECT JOSE 6.908 mls/hr Administration Protocol 2.5 MCG/KG/MIN Magnesium Hydroxide 30 ml 10/03/20 02:10 Magnesium Hydroxide (Mom) Oral Liqd Udc PO Q4H PRN Constipation Midodrine 10 mg 10/24/20 18:00 10/24/20 18:24 Midodrine 5 Mg Tab PO 10 mg Q8H JOSE Administration Pantoprazole Sodium 40 mg 10/04/20 15:00 10/24/20 09:43 Pantoprazole 40 Mg Inj IV 40 mg QDAY JOSE Administration Promethazine HCl 25 mg 10/03/20 02:10 Promethazine 25 Mg Rect Supp ID Q6H PRN N/V IF NPO AND NO IV ACCESS Senna 8.6 mg 10/03/20 02:10 Sennosides 8.6 Mg Tab PO Q12HR PRN Constipation Simple Syrup 15 ml 10/03/20 16:51 10/19/20 02:08 Simple Syrup 15 Ml FEEDTUBE 15 ml PRN PRN Administration Hypoglycemia Simple Syrup 30 ml 10/03/20 16:51 10/16/20 22:02 Simple Syrup 15 Ml FEEDTUBE 30 ml PRN PRN Administration Hypoglycemia Sodium Bicarbonate 325 mg 10/03/20 16:51 Sodium Bicarbonate 325 Mg Tab FEEDTUBE PRN PRN For Clogged Feeding Tube Nutrition/Malnutrition Assess - Dietary Evaluation Nutrition/Malnutrition Findings: Nutrition Notes Start: 10/03/20 08:51 Freq: Status: Active Protocol: Document 10/23/20 10:14 (Rec: 10/23/20 10:17 [id number]) Nutrition Notes Initial or Follow up Reassessment Current Diagnosis Diabetes Other Pertinent Diagnosis AMS, hypothermia, pneu, anemia , atherosclerotic cerebrovascular disease Current Diet Nepro 1.8 at 40 ml/hr Labs/Tests Na 128 BUN 56 Cr 3.4 Pertinent Medications Vasopressin Lasix Height 5 ft 10 in Weight 92.1 kg [place] Body Weight (kg) 75.45 BMI 29.1 Weight Status Overweight Subjective/Other Information Pt tolerating TF at 20 ml/hr. TF was not increased due to pt maxed out on pressors. Per RN , she recently increased TF to 30 ml/hr with a goal of 40 ml /hr. Percent of energy/protein needs met: 47%/46% Burn Absent Trauma Absent Difficulty In Swallowing Current % PO Negligible Minimum of two criteria No Fluid Accumulation Moderate to Severe (severe) #1 Nutrition Diagnosis Swallowing difficulty Diagnosis Progress(for reassessment Continues documentation) Is patient on ventilator? No Is Patient Ambulatory and/or Out of Bed No REE-([facility]-confined to bed) 1987.988 Kcal/Kg value to use for calculation 20 Approximate Energy Requirements Using 1842 kcal/Kg Calculation Used for Recommendations Kcal/kg Additional Notes Protein: (1-1.2g/kg) 84-101g Fluid: 1 ml/kcal Nutrition Intervention Change Diet Order: continue Nutrition Support: Nepro at 40ml/hour. For hyponatremia flush 50 ml q4h, once resolved resume flush at 170 ml q4h Kcal 1,728 Protein (gm) 78 Fluid (mL) 698 Goal #1 Meet at least 75% of protein and energy needs via TF Anticipated Discharge Needs: continue TF regimen Follow-Up By: 10/26/20 Additional Comments F/u: TF at goal and tolerance
[2020-10-25] MEDS: MIDODRINE 5 MG TAB PO SCH ×3 (01:34→17:49)
[2020-10-25 06:29] LABS: Calcium 8.6 mg/dL (8.4-10.2)
[2020-10-25 08:45] LABS: Hematocrit 20.9 % (35.5-45.6); Mean Corpuscular HGB Conc 34 % (32-34); Mean Corpuscular Volume 74 fl (84-94); Platelet Count 101 K/mm3 (140-440); Red Blood Count 2.84 M/mm3 (3.65-5.03)
[2020-10-25 08:54] LABS: Red Cell Distribution Width 30.8 % (13.2-15.2)
[2020-10-25] MEDS: FOLIC ACID 1 MG TAB PO SCH (09:00)
[2020-10-25] MEDS: PANTOPRAZOLE 40 MG INJ IV SCH (09:00)
[2020-10-25] MEDS: MULTIVITAMIN / MINERAL ORAL LIQUID 15 ML PO SCH (09:00)
[2020-10-25] MEDS: levETIRAcetam 250 MG in DEXTROSE 5% IN WATER 100 ML IV SCH ×2 (09:00→21:50)
[2020-10-25] MEDS: FERROUS SULFATE 308 MG (62mg Elemental Iron) / 7 ML ELIXIR FEEDTUBE SCH (09:00)
[2020-10-25] MEDS: HYDROCORTISONE SOD SUCC 100 MG/2 ML VIAL IV SCH ×2 (09:01→21:51)
[2020-10-25] MEDS: DOBUTamine/D5W 500 MG/250 ML 500 MG/250 ML BAG IV SCH (09:01)
--- NOTE | 2020-10-25 11:49 | Progress Note ---
Assessment and Plan Assessment: Acute encephalopathy Hyponatremia Hypothermia, resolved Pulmonary infiltrate in right lung on CXR Atherosclerotic cerebrovascular disease Severe anemia -possible GI bleed Severe protein-calorie malnutrition Acute Renal Failure Hypokalemia Plan: -Started on daily HD yesterday on 10/24/20 via vasc cath for worsening renal function, decrease UOP and volume overload -Serum creatinine 3.1 today, yesterday's was 3.9. BUN was 66 yesterday, now 55 today -Sodium level 133 today, yesterday's was 123. Goal correction no more than 8-10 mmol in 24 hours -Echo done 10/04/20 showed LVEF 25-30% -On Dobutamine drip. S/P Lasix drip -Renal ultrasound- no hydronephrosis -Avoid nephrotoxic agents -Obtain daily weights -Monitor I/O's daily -Monitor renal function closely -Plan of care reviewed by Dr. Cam Subjective Date of service: 10/25/20 Principal diagnosis: Ac hypoxemic resp failure; Pneumonia; BETSY; Ac. encephalopathy Interval history: Patient intubated. On daily HD. Objective - Vital Signs Vital signs: Vital Signs - 12hr 10/24/20 10/25/20 10/25/20 23:57 00:00 00:15 Temperature 98.8 F Pulse Rate 98 H 107 H 112 H Pulse Rate [ From Monitor] Respiratory 20 21 Rate Blood Pressure 133/70 147/63 138/64 O2 Sat by Pulse 97 97 97 Oximetry O2 Sat by Pulse Oximetry [ Anterior Bilateral Throughout] 10/25/20 10/25/20 10/25/20 00:30 00:45 01:00 Temperature Pulse Rate 99 H 99 H 114 H Pulse Rate [ From Monitor] Respiratory 20 21 16 Rate Blood Pressure 140/72 133/72 137/70 O2 Sat by Pulse 97 97 97 Oximetry O2 Sat by Pulse Oximetry [ Anterior Bilateral Throughout] 10/25/20 10/25/20 10/25/20 01:16 01:30 01:46 Temperature Pulse Rate 107 H 91 H 97 H Pulse Rate [ From Monitor] Respiratory 21 20 20 Rate Blood Pressure 139/77 139/77 122/74 O2 Sat by Pulse 97 97 97 Oximetry O2 Sat by Pulse Oximetry [ Anterior Bilateral Throughout] 10/25/20 10/25/20 10/25/20 02:00 02:16 02:30 Temperature Pulse Rate 99 H 98 H 105 H Pulse Rate [ From Monitor] Respiratory 27 H 24 32 H Rate Blood Pressure 128/75 146/77 150/72 O2 Sat by Pulse 97 97 97 Oximetry O2 Sat by Pulse Oximetry [ Anterior Bilateral Throughout] 10/25/20 10/25/20 10/25/20 02:46 03:00 03:15 Temperature Pulse Rate 102 H 106 H 102 H Pulse Rate [ From Monitor] Respiratory 25 H 19 21 Rate Blood Pressure 148/73 148/73 157/77 O2 Sat by Pulse 97 98 95 Oximetry O2 Sat by Pulse Oximetry [ Anterior Bilateral Throughout] 10/25/20 10/25/20 10/25/20 03:30 03:45 03:57 Temperature 98.9 F Pulse Rate 104 H 110 H Pulse Rate [ From Monitor] Respiratory 22 23 Rate Blood Pressure 148/77 149/78 O2 Sat by Pulse 97 96 Oximetry O2 Sat by Pulse Oximetry [ Anterior Bilateral Throughout] 10/25/20 10/25/20 10/25/20 04:00 04:15 04:20 Temperature Pulse Rate 97 H 104 H 117 H Pulse Rate [ From Monitor] Respiratory 22 22 Rate Blood Pressure 157/79 159/82 159/82 O2 Sat by Pulse 97 97 97 Oximetry O2 Sat by Pulse Oximetry [ Anterior Bilateral Throughout] 10/25/20 10/25/20 10/25/20 04:30 04:45 05:00 Temperature Pulse Rate 115 H 103 H 103 H Pulse Rate [ From Monitor] Respiratory 21 20 21 Rate Blood Pressure 154/82 157/82 153/84 O2 Sat by Pulse 98 97 97 Oximetry O2 Sat by Pulse Oximetry [ Anterior Bilateral Throughout] 10/25/20 10/25/20 10/25/20 05:15 05:30 05:34 Temperature Pulse Rate 108 H 107 H 106 H Pulse Rate [ From Monitor] Respiratory 20 21 21 Rate Blood Pressure 160/82 160/81 160/81 O2 Sat by Pulse 97 96 96 Oximetry O2 Sat by Pulse Oximetry [ Anterior Bilateral Throughout] 10/25/20 10/25/20 10/25/20 05:36 05:38 05:40 Temperature Pulse Rate 98 H 117 H 111 H Pulse Rate [ From Monitor] Respiratory 22 22 22 Rate Blood Pressure O2 Sat by Pulse 96 96 96 Oximetry O2 Sat by Pulse Oximetry [ Anterior Bilateral Throughout] 10/25/20 10/25/20 10/25/20 05:42 05:44 05:45 Temperature Pulse Rate 103 H 113 H 115 H Pulse Rate [ From Monitor] Respiratory 20 21 22 Rate Blood Pressure 166/83 O2 Sat by Pulse 96 97 96 Oximetry O2 Sat by Pulse Oximetry [ Anterior Bilateral Throughout] 10/25/20 10/25/20 10/25/20 05:46 05:48 05:50 Temperature Pulse Rate 108 H 113 H 106 H Pulse Rate [ From Monitor] Respiratory 21 21 21 Rate Blood Pressure O2 Sat by Pulse 96 96 96 Oximetry O2 Sat by Pulse Oximetry [ Anterior Bilateral Throughout] 10/25/20 10/25/20 10/25/20 05:52 05:54 06:00 Temperature Pulse Rate 118 H 112 H 113 H Pulse Rate [ From Monitor] Respiratory 21 22 21 Rate Blood Pressure 134/48 145/57 O2 Sat by Pulse 96 96 97 Oximetry O2 Sat by Pulse Oximetry [ Anterior Bilateral Throughout] 10/25/20 10/25/20 10/25/20 06:15 06:30 06:45 Temperature Pulse Rate 125 H 101 H 112 H Pulse Rate [ From Monitor] Respiratory 21 21 22 Rate Blood Pressure 136/61 137/56 133/61 O2 Sat by Pulse 96 97 97 Oximetry O2 Sat by Pulse Oximetry [ Anterior Bilateral Throughout] 10/25/20 10/25/20 10/25/20 07:00 07:15 07:16 Temperature 101.3 F H Pulse Rate 122 H 110 H Pulse Rate [ From Monitor] Respiratory 21 22 Rate Blood Pressure 139/58 138/64 O2 Sat by Pulse 96 97 Oximetry O2 Sat by Pulse Oximetry [ Anterior Bilateral Throughout] 10/25/20 10/25/20 10/25/20 07:30 07:46 08:00 Temperature Pulse Rate 113 H 117 H 110 H Pulse Rate [ 113 H From Monitor] Respiratory 21 20 18 Rate Blood Pressure 137/61 126/57 126/57 O2 Sat by Pulse 97 96 96 Oximetry O2 Sat by Pulse Oximetry [ Anterior Bilateral Throughout] 10/25/20 10/25/20 10/25/20 08:15 08:30 08:45 Temperature Pulse Rate 99 H 103 H 112 H Pulse Rate [ From Monitor] Respiratory 21 22 20 Rate Blood Pressure 136/56 136/56 145/53 O2 Sat by Pulse 96 97 97 Oximetry O2 Sat by Pulse Oximetry [ Anterior Bilateral Throughout] 10/25/20 10/25/2010/25/21 09:00 09:15 09:25 Temperature Pulse Rate 113 H 100 H 105 H Pulse Rate [ From Monitor] Respiratory 21 21 Rate Blood Pressure 138/56 145/55 145/55 O2 Sat by Pulse 97 98 96 Oximetry O2 Sat by Pulse Oximetry [ Anterior Bilateral Throughout] 10/25/20 10/25/20 10/25/20 09:30 09:46 09:51 Temperature 99.3 F Pulse Rate 100 H 101 H 96 H Pulse Rate [ From Monitor] Respiratory 20 23 Rate Blood Pressure 145/55 145/59 145/56 O2 Sat by Pulse 98 98 Oximetry O2 Sat by Pulse 95 Oximetry [ Anterior Bilateral Throughout] 10/25/20 10/25/20 10/25/20 10:00 10:15 10:30 Temperature Pulse Rate 116 H 110 H 101 H Pulse Rate [ From Monitor] Respiratory 23 23 25 H Rate Blood Pressure 145/56 122/51 117/50 O2 Sat by Pulse 97 96 95 Oximetry O2 Sat by Pulse Oximetry [ Anterior Bilateral Throughout] 10/25/20 10/25/20 10/25/20 10:45 11:00 11:15 Temperature Pulse Rate 107 H 107 H 97 H Pulse Rate [ From Monitor] Respiratory 22 25 H Rate Blood Pressure 117/49 117/50 99/47 O2 Sat by Pulse 95 94 Oximetry O2 Sat by Pulse Oximetry [ Anterior Bilateral Throughout] 10/25/20 11:30 Temperature Pulse Rate 96 H Pulse Rate [ From Monitor] Respiratory Rate Blood Pressure 99/46 O2 Sat by Pulse Oximetry O2 Sat by Pulse Oximetry [ Anterior Bilateral Throughout] - General Appearance General appearance: sedated on ventilator, intubated EENT: ATNC Neck: no JVD Respiratory: Present: Other (intubated) Cardiology: S1S2 Gastrointestinal: normoactive bowel sounds Neurologic: other (sedated and intubated) Musculoskeletal: joint swelling - Lab 10/25/20 08:35 10/25/20 05:22 Most recent lab results ABG pH 7.490 (7.320-7.450) H 10/24/20 03:00 ABG O2 Saturation 84.6 (0-100) 10/24/20 03:00 Calcium 8.6 mg/dL (8.4-10.2) 10/25/20 05:22 Phosphorus 2.80 mg/dL (2.5-4.5) 10/23/20 05:35 Magnesium 2.10 mg/dL (1.7-2.3) 10/23/20 05:35 Urine Creatinine 144.2 mg/dL (0.1-20.0) H 10/14/20 Unknown Urine Sodium 10 mmol/L 10/14/20 Unknown Urine Total Protein 97 mg/dL (5-11.8) H 10/14/20 Unknown Medications & Allergies - Medications Allergies/Adverse Reactions: Allergies No Known Allergies Allergy (Unverified 10/03/20 12:27) Home Medications: Home Medications Medication Instructions Recorded Confirmed Last Taken Type Unobtainable 10/10/20 10/10/20 Unknown History Active Medications: Generic Name Dose Route Start Last Admin Trade Name Freq PRN Reason Stop Dose Admin Acetaminophen 650 mg 10/03/20 02:10 10/06/20 15:28 Acetaminophen 325 Mg Tab PO 650 mg Q4H PRN Administration Pain MILD(1-3)/Fever >100.5/ROMERO Al Hydrox/Mg Hydrox/Simethicone 30 ml 10/03/20 02:10 Alum-Mag Hydroxide-Simethicone 180-679-95yo/5ml Oral Liqd 30 Ml PO Q4H PRN Indigestion Lipase/Protease/Amylase 1 each 10/03/20 16:51 Lipase 10,500/Protease 25,000/Amylase 43,750 (Units) Dr Reis FEEDTUBE PRN PRN For Clogged Feeding Tube Dextrose 50 ml 10/16/20 12:42 10/21/20 17:39 Dextrose 50% In Water (25gm) 50 Ml Syringe IV 50 ml Q30MIN PRN Administration Hypoglycemia Protocol Fentanyl 50 mcg 10/22/20 10:00 Fentanyl 100 Mcg/2 Ml Inj IV Q4HR PRN Pain , Severe (7-10) Ferrous Sulfate 308 mg 10/16/20 10:00 10/25/20 09:00 Ferrous Sulfate 308 Mg (62mg Elemental Iron) / 7 Ml Elixir FEEDTUBE 308 mg DAILY JOSE Administration Folic Acid 1 mg 10/03/20 10:00 10/25/20 09:00 Folic Acid 1 Mg Tab PO 1 mg QDAY JOSE Administration Hydrocortisone Sodium Succinate 50 mg 10/25/20 10:00 10/25/20 09:01 Hydrocortisone Sod Succ 100 Mg/2 Ml Vial IV 10/25/20 22:01 50 mg Q12H JOSE Administration Hydrocortisone Sodium Succinate 50 mg 10/26/20 10:00 Hydrocortisone Sod Succ 100 Mg/2 Ml Vial IV 10/27/20 10:01 Q24H JOSE Levetiracetam 250 mg/ Dextrose 102.5 mls @ 400 mls/hr 10/10/20 22:00 10/25/20 09:00 IV 400 mls/hr Q12HR JOSE Administration NORepinephrine/NS 8 MG-250 ML 8 mg in 250 mls @ 3.75 mls/hr 10/16/20 19:00 10/21/20 16:56 Norepinephrine/Ns 8 Mg-250 Ml (Double Conc) IV 0 mcg/min TITRATE JOSE 0 mls/hr Titration Protocol 2 MCG/MIN Dobutamine HCl/Dextrose 500 mg in 250 mls @ 6.908 mls/hr 10/16/20 19:00 10/25/20 09:01 Dobutrex Drip 500mg/D5w 250ml IV 2.5 mcg/kg/min DIRECT JOSE 6.908 mls/hr Administration Protocol 2.5 MCG/KG/MIN Magnesium Hydroxide 30 ml 10/03/20 02:10 Magnesium Hydroxide (Mom) Oral Liqd Udc PO Q4H PRN Constipation Midodrine 10 mg 10/24/20 18:00 10/25/20 09:00 Midodrine 5 Mg Tab PO 10 mg Q8H JOSE Administration Pantoprazole Sodium 40 mg 10/04/20 15:00 10/25/20 09:00 Pantoprazole 40 Mg Inj IV 40 mg QDAY JOSE Administration Promethazine HCl 25 mg 10/03/20 02:10 Promethazine 25 Mg Rect Supp UT Q6H PRN N/V IF NPO AND NO IV ACCESS Senna 8.6 mg 10/03/20 02:10 Sennosides 8.6 Mg Tab PO Q12HR PRN Constipation Simple Syrup 15 ml 10/03/20 16:51 10/19/20 02:08 Simple Syrup 15 Ml FEEDTUBE 15 ml PRN PRN Administration Hypoglycemia Simple Syrup 30 ml 10/03/20 16:51 10/16/20 22:02 Simple Syrup 15 Ml FEEDTUBE 30 ml PRN PRN Administration Hypoglycemia Sodium Bicarbonate 325 mg 10/03/20 16:51 Sodium Bicarbonate 325 Mg Tab FEEDTUBE PRN PRN For Clogged Feeding Tube
--- NOTE | 2020-10-25 12:37 | Progress Note ---
Assessment and Plan Acute hypoxemic respiratory failure Bilateral pneumonia Bilateral pleural effusions Bilateral pulmonary edema Acute kidney injury Acute encephalopathy Severe protein calorie malnutrition Oropharyngeal dysphagia Anemia that is microcytic Oropharyngeal dysphagia - stop Dobutamine - hold Midodrine for SBP > 120 mmHg - get ABG and address vent settings thereafter - continue HD/UF per nephrology prescription for toxin and volume clearancefor vascath followerd by dialysis - continue stress dose steroids - continue care as below otherwise; - vasopressors for MAP > 65 mmHg - VAP bundle addressed (HOB > 40 degrees) - sedation target RASS 0 to -1 - daily SAT's & SBT assessments as tolerated - continue glycemic control withh SSI for target BG 140-180 mg while critically ill; avoid hypoglycema - continue lung protective strategies - bronchodilators with pulmonary hygiene per RT - complete AB's per ID recommendations - avoid nephrotoxins, renally dose all medications - prn analgesia per pain score - Maintenance of sleep-wake cycle, avoid delirium - supportive transfusions for serum Hb < 7.0g/dl - G.I. & VTE prophylaxis - PT/OT/ROM exercises - continue mobility protocols for pressure ulcer prophylaxis - Monitor hemodynamics closely - continue other care per attending / other consultants - discharge planning ongoing concurrently COVID SPECIFIC INTERVENTIONS - COVID-19 test negative .... Re-evaluate in am & prn CONDITION: CRITICAL PROGNOSIS: GUARDED CODE STATUS: FULL CODE The high probability of a clinically significant, sudden or life-threatening deterioration of the [respiratory, cardiovascular, & neurologic] system(s) required my full and direct attention, intervention and personal management. The aggregate critical care time was [35] minutes without overlap. Time includes s pent on; [x] Data Review and interpretation [x] Patient assessment and monitoring of vital signs [x] Documentation [x] Medication orders and management Subjective Date of service: 10/25/20 Principal diagnosis: Ac hypoxemic resp failure; Pneumonia; BETSY; Ac. encephalopathy Interval history: Patient is seen today for: Acute hypoxemic respiratory failure; Pneumonia; Pleural effusions; BETSY; Acute encephalopathy; Severe protein calorie malnutrition Seen and examined at bedside; 24hour events reviewed; nursing and respiratory care staff consulted; no adverse overnight events reported to me; resting in bed; remains on MVS; s/p dialysis yesterday and today 2 liters pulled; remains on dobutamine but BP's better on midodrine; AMS is persistent Objective Vital Signs - 12hr 10/25/20 10/25/20 10/25/20 00:45 01:00 01:16 Temperature Pulse Rate 99 H 114 H 107 H Pulse Rate [ From Monitor] Respiratory 21 16 21 Rate Blood Pressure 133/72 137/70 139/77 O2 Sat by Pulse 97 97 97 Oximetry O2 Sat by Pulse Oximetry [ Anterior Bilateral Throughout] 10/25/20 10/25/20 10/25/20 01:30 01:46 02:00 Temperature Pulse Rate 91 H 97 H 99 H Pulse Rate [ From Monitor] Respiratory 20 20 27 H Rate Blood Pressure 139/77 122/74 128/75 O2 Sat by Pulse 97 97 97 Oximetry O2 Sat by Pulse Oximetry [ Anterior Bilateral Throughout] 10/25/20 10/25/20 10/25/20 02:16 02:30 02:46 Temperature Pulse Rate 98 H 105 H 102 H Pulse Rate [ From Monitor] Respiratory 24 32 H 25 H Rate Blood Pressure 146/77 150/72 148/73 O2 Sat by Pulse 97 97 97 Oximetry O2 Sat by Pulse Oximetry [ Anterior Bilateral Throughout] 10/25/20 10/25/20 10/25/20 03:00 03:15 03:30 Temperature Pulse Rate 106 H 102 H 104 H Pulse Rate [ From Monitor] Respiratory 19 21 22 Rate Blood Pressure 148/73 157/77 148/77 O2 Sat by Pulse 98 95 97 Oximetry O2 Sat by Pulse Oximetry [ Anterior Bilateral Throughout] 10/25/20 10/25/20 10/25/20 03:45 03:57 04:00 Temperature 98.9 F Pulse Rate 110 H 97 H Pulse Rate [ From Monitor] Respiratory 23 22 Rate Blood Pressure 149/78 157/79 O2 Sat by Pulse 96 97 Oximetry O2 Sat by Pulse Oximetry [ Anterior Bilateral Throughout] 10/25/20 10/25/20 10/25/20 04:15 04:20 04:30 Temperature Pulse Rate 104 H 117 H 115 H Pulse Rate [ From Monitor] Respiratory 22 21 Rate Blood Pressure 159/82 159/82 154/82 O2 Sat by Pulse 97 97 98 Oximetry O2 Sat by Pulse Oximetry [ Anterior Bilateral Throughout] 10/25/20 10/25/20 10/25/20 04:45 05:00 05:15 Temperature Pulse Rate 103 H 103 H 108 H Pulse Rate [ From Monitor] Respiratory 20 21 20 Rate Blood Pressure 157/82 153/84 160/82 O2 Sat by Pulse 97 97 97 Oximetry O2 Sat by Pulse Oximetry [ Anterior Bilateral Throughout] 10/25/20 10/25/20 10/25/20 05:30 05:34 05:36 Temperature Pulse Rate 107 H 106 H 98 H Pulse Rate [ From Monitor] Respiratory 22 Rate Blood Pressure 160/81 160/81 O2 Sat by Pulse 96 96 96 Oximetry O2 Sat by Pulse Oximetry [ Anterior Bilateral Throughout] 10/25/20 10/25/20 10/25/20 05:38 05:40 05:42 Temperature Pulse Rate 117 H 111 H 103 H Pulse Rate [ From Monitor] Respiratory 22 20 Rate Blood Pressure O2 Sat by Pulse 96 96 96 Oximetry O2 Sat by Pulse Oximetry [ Anterior Bilateral Throughout] 10/25/20 10/25/20 10/25/20 05:44 05:45 05:46 Temperature Pulse Rate 113 H 115 H 108 H Pulse Rate [ From Monitor] Respiratory 21 Rate Blood Pressure 166/83 O2 Sat by Pulse 97 96 96 Oximetry O2 Sat by Pulse Oximetry [ Anterior Bilateral Throughout] 10/25/20 10/25/20 10/25/20 05:48 05:50 05:52 Temperature Pulse Rate 113 H 106 H 118 H Pulse Rate [ From Monitor] Respiratory 21 Rate Blood Pressure 134/48 O2 Sat by Pulse 96 96 96 Oximetry O2 Sat by Pulse Oximetry [ Anterior Bilateral Throughout] 10/25/20 10/25/20 10/25/20 05:54 06:00 06:15 Temperature Pulse Rate 112 H 113 H 125 H Pulse Rate [ From Monitor] Respiratory 21 Rate Blood Pressure 145/57 136/61 O2 Sat by Pulse 96 97 96 Oximetry O2 Sat by Pulse Oximetry [ Anterior Bilateral Throughout] 10/25/20 10/25/20 10/25/20 06:30 06:45 07:00 Temperature Pulse Rate 101 H 112 H 122 H Pulse Rate [ From Monitor] Respiratory 21 Rate Blood Pressure 137/56 133/61 139/58 O2 Sat by Pulse 97 97 96 Oximetry O2 Sat by Pulse Oximetry [ Anterior Bilateral Throughout] 10/25/20 10/25/20 10/25/20 07:15 07:16 07:30 Temperature 101.3 F H Pulse Rate 110 H 113 H Pulse Rate [ From Monitor] Respiratory 21 Rate Blood Pressure 138/64 137/61 O2 Sat by Pulse 97 97 Oximetry O2 Sat by Pulse Oximetry [ Anterior Bilateral Throughout] 10/25/20 10/25/20 10/25/20 07:46 08:00 08:15 Temperature Pulse Rate 117 H 110 H 99 H Pulse Rate [ 113 H From Monitor] Respiratory 20 18 21 Rate Blood Pressure 126/57 126/57 136/56 O2 Sat by Pulse 96 96 96 Oximetry O2 Sat by Pulse Oximetry [ Anterior Bilateral Throughout] 10/25/20 10/25/20 10/25/20 08:30 08:45 09:00 Temperature Pulse Rate 103 H 112 H 113 H Pulse Rate [ From Monitor] Respiratory 22 20 21 Rate Blood Pressure 136/56 145/53 138/56 O2 Sat by Pulse 97 97 97 Oximetry O2 Sat by Pulse Oximetry [ Anterior Bilateral Throughout] 10/25/20 10/25/20 10/25/20 09:15 09:25 09:30 Temperature 99.3 F Pulse Rate 100 H 105 H 100 H Pulse Rate [ From Monitor] Respiratory 21 20 Rate Blood Pressure 145/55 145/55 145/55 O2 Sat by Pulse 98 96 98 Oximetry O2 Sat by Pulse 95 Oximetry [ Anterior Bilateral Throughout] 10/25/20 10/25/20 10/25/20 09:46 09:51 10:00 Temperature Pulse Rate 101 H 96 H 116 H Pulse Rate [ From Monitor] Respiratory 23 23 Rate Blood Pressure 145/59 145/56 145/56 O2 Sat by Pulse 98 97 Oximetry O2 Sat by Pulse Oximetry [ Anterior Bilateral Throughout] 10/25/20 10/25/20 10/25/20 10:15 10:30 10:45 Temperature Pulse Rate 110 H 101 H 107 H Pulse Rate [ From Monitor] Respiratory 23 25 H 22 Rate Blood Pressure 122/51 117/50 117/49 O2 Sat by Pulse 96 95 95 Oximetry O2 Sat by Pulse Oximetry [ Anterior Bilateral Throughout] 10/25/20 10/25/20 10/25/20 11:00 11:15 11:30 Temperature Pulse Rate 107 H 102 H 102 H Pulse Rate [ From Monitor] Respiratory 25 H 26 H 26 H Rate Blood Pressure 117/50 99/47 99/47 O2 Sat by Pulse 94 93 93 Oximetry O2 Sat by Pulse Oximetry [ Anterior Bilateral Throughout] 10/25/20 10/25/20 10/25/20 11:45 11:46 11:50 Temperature 98.1 F Pulse Rate 97 H 104 H Pulse Rate [ From Monitor] Respiratory 26 H Rate Blood Pressure 81/51 81/51 O2 Sat by Pulse 93 Oximetry O2 Sat by Pulse Oximetry [ Anterior Bilateral Throughout] 10/25/20 10/25/20 10/25/20 12:00 12:15 12:30 Temperature Pulse Rate 107 H 106 H 94 H Pulse Rate [ 101 H From Monitor] Respiratory 26 H Rate Blood Pressure 120/51 98/48 91/48 O2 Sat by Pulse 97 Oximetry O2 Sat by Pulse Oximetry [ Anterior Bilateral Throughout] Constitutional: no acute distress, other (elderly and chronically ill looking male with mildly increased respiratory effort at rest on MVS) Eyes: non-icteric ENT: oropharynx dry, other (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) Neck: supple, no lymphadenopathy, no JVD, other (RIJ Vascath) Effort: mildly labored Ascultation: Bilateral: diminished breath sounds, rhonchi Percussion: Bilateral: not dull Cardiovascular: irregular rhythm (irregularly irregular) Gastrointestinal: normoactive bowel sounds Integumentary: normal Extremities: no cyanosis, pulses normal, no ischemia or petechiae, edema (1+) Neurologic: pupils equal and round, unable to assess Psychiatric: other (unable to assess re: AMS) CBC and BMP: 10/25/20 08:35 10/25/20 05:22 ABG, PT/INR, D-dimer: ABG ABG pH 7.490 (7.320-7.450) H 10/24/20 03:00 POC ABG pCO2 26.8 mmHg (32.0-48.0) L 10/24/20 03:00 POC ABG pO2 Not Reportable 10/24/20 03:00 POC ABG HCO3 20.0 10/24/20 03:00 ABG O2 Saturation 84.6 (0-100) 10/24/20 03:00 PT/INR, D-dimer PT 20.4 Sec. (12.2-14.9) H 10/24/20 05:27 INR 1.70 (0.87-1.13) H 10/24/20 05:27 D-Dimer 1992.93 ng/mlDDU (0-234) H 10/21/20 Unknown Abnormal lab findings: Abnormal Labs 0810/02/20 10/02/20 23:17 23:17 23:17 WBC RBC 3.31 L Hgb 6.7 L Hct 21.8 L MCV 66 L MCH 20 L MCHC 31 L RDW 31.7 H Plt Count [place] % (Auto) [place] # (Auto) Seg Neutrophils % Seg Neuts % (Manual) 79.0 H Lymphocytes % (Manual) 11.0 L Monocytes % (Manual) 10.0 H Basophils % (Manual) Nucleated RBC % Seg Neutrophils # Seg Neutrophils # Man Lymphocytes # (Manual) 0.9 L Monocytes # (Manual) Basophils # (Manual) PT 20.8 H INR 1.74 H APTT 57.6 H Fibrinogen D-Dimer ABG pH POC ABG pCO2 POC ABG pO2 ABG Hemoglobin ABG Oxyhemoglobin ABG Sodium ABG Potassium ABG Chloride ABG Glucose Sodium Potassium Chloride Carbon Dioxide BUN Creatinine Glucose 42 L POC Glucose Lactic Acid Calcium Magnesium Iron Total Bilirubin Direct Bilirubin AST ALT Alkaline Phosphatase Ammonia CK-MB (CK-2) 7.5 H CK-MB (CK-2) Rel Index 8.5 H Total Protein Albumin 2.9 L Arterial Blood Glucose Arterial Blood Ionized Calcium Urine Creatinine Urine Total Protein Salicylates Acetaminophen Crossmatch 10/02/20 10/02/20 10/02/20 23:17 23:17 23:17 WBC RBC Hgb Hct MCV MCH MCHC RDW Plt Count [place] % (Auto) [place] # (Auto) Seg Neutrophils % Seg Neuts % (Manual) Lymphocytes % (Manual) Monocytes % (Manual) Basophils % (Manual) Nucleated RBC % Seg Neutrophils # Seg Neutrophils # Man Lymphocytes # (Manual) Monocytes # (Manual) Basophils # (Manual) PT INR APTT Fibrinogen D-Dimer ABG pH POC ABG pCO2 POC ABG pO2 ABG Hemoglobin ABG Oxyhemoglobin ABG Sodium ABG Potassium ABG Chloride ABG Glucose Sodium Potassium Chloride Carbon Dioxide BUN Creatinine Glucose POC Glucose Lactic Acid 2.20 H* Calcium Magnesium Iron Total Bilirubin Direct Bilirubin AST ALT Alkaline Phosphatase Ammonia 22.0 L CK-MB (CK-2) CK-MB (CK-2) Rel Index Total Protein Albumin Arterial Blood Glucose Arterial Blood Ionized Calcium Urine Creatinine Urine Total Protein Salicylates < 0.3 L Acetaminophen Crossmatch 10/02/20 10/03/20 10/03/20 23:17 05:57 05:57 WBC RBC 2.66 L Hgb 5.3 L* Hct 17.8 L* MCV 67 L MCH 20 L MCHC 30 L RDW 32.1 H Plt Count [place] % (Auto) [place] # (Auto) Seg Neutrophils % Seg Neuts % (Manual) Lymphocytes % (Manual) 2.0 L Monocytes % (Manual) Basophils % (Manual) Nucleated RBC % 1.0 H Seg Neutrophils # Seg Neutrophils # Man 8.6 H Lymphocytes # (Manual) 0.2 L Monocytes # (Manual) Basophils # (Manual) PT INR APTT Fibrinogen D-Dimer ABG pH POC ABG pCO2 POC ABG pO2 ABG Hemoglobin ABG Oxyhemoglobin ABG Sodium ABG Potassium ABG Chloride ABG Glucose Sodium Potassium Chloride Carbon Dioxide BUN Creatinine Glucose POC Glucose Lactic Acid Calcium Magnesium Iron Total Bilirubin Direct Bilirubin AST ALT Alkaline Phosphatase Ammonia CK-MB (CK-2) CK-MB (CK-2) Rel Index Total Protein Albumin Arterial Blood Glucose Arterial Blood Ionized Calcium Urine Creatinine Urine Total Protein Salicylates Acetaminophen 5.0 L Crossmatch See Detail 10/03/20 10/03/20 10/03/20 05:57 05:57 06:00 WBC RBC Hgb Hct MCV MCH MCHC RDW Plt Count [place] % (Auto) [place] # (Auto) Seg Neutrophils % Seg Neuts % (Manual) Lymphocytes % (Manual) Monocytes % (Manual) Basophils % (Manual) Nucleated RBC % Seg Neutrophils # Seg Neutrophils # Man Lymphocytes # (Manual) Monocytes # (Manual) Basophils # (Manual) PT INR APTT Fibrinogen D-Dimer ABG pH POC ABG pCO2 POC ABG pO2 ABG Hemoglobin ABG Oxyhemoglobin ABG Sodium ABG Potassium ABG Chloride ABG Glucose Sodium Potassium Chloride Carbon Dioxide BUN Creatinine Glucose 52 L POC Glucose 31 L Lactic Acid Calcium Magnesium Iron 42 L Total Bilirubin Direct Bilirubin AST ALT Alkaline Phosphatase Ammonia CK-MB (CK-2) CK-MB (CK-2) Rel Index Total Protein 5.8 L Albumin 3.1 L Arterial Blood Glucose Arterial Blood Ionized Calcium Urine Creatinine Urine Total Protein Salicylates Acetaminophen Crossmatch 10/03/20 10/03/20 10/03/20 07:34 09:43 10:57 WBC RBC Hgb Hct MCV MCH MCHC RDW Plt Count [place] % (Auto) [place] # (Auto) Seg Neutrophils % Seg Neuts % (Manual) Lymphocytes % (Manual) Monocytes % (Manual) Basophils % (Manual) Nucleated RBC % Seg Neutrophils # Seg Neutrophils # Man Lymphocytes # (Manual) Monocytes # (Manual) Basophils # (Manual) PT INR APTT Fibrinogen D-Dimer ABG pH POC ABG pCO2 POC ABG pO2 ABG Hemoglobin ABG Oxyhemoglobin ABG Sodium ABG Potassium ABG Chloride ABG Glucose Sodium Potassium Chloride Carbon Dioxide BUN Creatinine Glucose POC Glucose 59 L 41 L 31 L Lactic Acid Calcium Magnesium Iron Total Bilirubin Direct Bilirubin AST ALT Alkaline Phosphatase Ammonia CK-MB (CK-2) CK-MB (CK-2) Rel Index Total Protein Albumin Arterial Blood Glucose Arterial Blood Ionized Calcium Urine Creatinine Urine Total Protein Salicylates Acetaminophen Crossmatch 10/03/20 10/03/20 10/03/20 11:21 12:00 12:14 WBC RBC Hgb Hct MCV MCH MCHC RDW Plt Count [place] % (Auto) [place] # (Auto) Seg Neutrophils % Seg Neuts % (Manual) Lymphocytes % (Manual) Monocytes % (Manual) Basophils % (Manual) Nucleated RBC % Seg Neutrophils # Seg Neutrophils # Man Lymphocytes # (Manual) Monocytes # (Manual) Basophils # (Manual) PT INR APTT Fibrinogen D-Dimer ABG pH POC ABG pCO2 POC ABG pO2 ABG Hemoglobin ABG Oxyhemoglobin ABG Sodium ABG Potassium ABG Chloride ABG Glucose Sodium Potassium Chloride Carbon Dioxide BUN Creatinine Glucose POC Glucose 62 L 26 L 140 H Lactic Acid Calcium Magnesium Iron Total Bilirubin Direct Bilirubin AST ALT Alkaline Phosphatase Ammonia CK-MB (CK-2) CK-MB (CK-2) Rel Index Total Protein Albumin Arterial Blood Glucose Arterial Blood Ionized Calcium Urine Creatinine Urine Total Protein Salicylates Acetaminophen Crossmatch 10/03/20 10/03/20 10/03/20 13:33 14:19 14:59 WBC RBC Hgb Hct MCV MCH MCHC RDW Plt Count [place] % (Auto) [place] # (Auto) Seg Neutrophils % Seg Neuts % (Manual) Lymphocytes % (Manual) Monocytes % (Manual) Basophils % (Manual) Nucleated RBC % Seg Neutrophils # Seg Neutrophils # Man Lymphocytes # (Manual) Monocytes # (Manual) Basophils # (Manual) PT INR APTT Fibrinogen D-Dimer ABG pH POC ABG pCO2 POC ABG pO2 ABG Hemoglobin ABG Oxyhemoglobin ABG Sodium ABG Potassium ABG Chloride ABG Glucose Sodium Potassium Chloride Carbon Dioxide BUN Creatinine Glucose POC Glucose 24 L 59 L 40 L Lactic Acid Calcium Magnesium Iron Total Bilirubin Direct Bilirubin AST ALT Alkaline Phosphatase Ammonia CK-MB (CK-2) CK-MB (CK-2) Rel Index Total Protein Albumin Arterial Blood Glucose Arterial Blood Ionized Calcium Urine Creatinine Urine Total Protein Salicylates Acetaminophen Crossmatch 10/03/20 10/03/20 10/03/20 15:26 15:57 16:35 WBC RBC Hgb Hct MCV MCH MCHC RDW Plt Count [place] % (Auto) [place] # (Auto) Seg Neutrophils % Seg Neuts % (Manual) Lymphocytes % (Manual) Monocytes % (Manual) Basophils % (Manual) Nucleated RBC % Seg Neutrophils # Seg Neutrophils # Man Lymphocytes # (Manual) Monocytes # (Manual) Basophils # (Manual) PT INR APTT Fibrinogen D-Dimer ABG pH POC ABG pCO2 POC ABG pO2 ABG Hemoglobin ABG Oxyhemoglobin ABG Sodium ABG Potassium ABG Chloride ABG Glucose Sodium Potassium Chloride Carbon Dioxide BUN Creatinine Glucose POC Glucose 54 L 45 L 42 L Lactic Acid Calcium Magnesium Iron Total Bilirubin Direct Bilirubin AST ALT Alkaline Phosphatase Ammonia CK-MB (CK-2) CK-MB (CK-2) Rel Index Total Protein Albumin Arterial Blood Glucose Arterial Blood Ionized Calcium Urine Creatinine Urine Total Protein Salicylates Acetaminophen Crossmatch 10/03/20 10/03/20 10/03/20 17:16 18:37 19:56 WBC RBC Hgb Hct MCV MCH MCHC RDW Plt Count [place] % (Auto) [place] # (Auto) Seg Neutrophils % Seg Neuts % (Manual) Lymphocytes % (Manual) Monocytes % (Manual) Basophils % (Manual) Nucleated RBC % Seg Neutrophils # Seg Neutrophils # Man Lymphocytes # (Manual) Monocytes # (Manual) Basophils # (Manual) PT INR APTT Fibrinogen D-Dimer ABG pH POC ABG pCO2 POC ABG pO2 ABG Hemoglobin ABG Oxyhemoglobin ABG Sodium ABG Potassium ABG Chloride ABG Glucose Sodium Potassium Chloride Carbon Dioxide BUN Creatinine Glucose POC Glucose 41 L 46 L 57 L Lactic Acid Calcium Magnesium Iron Total Bilirubin Direct Bilirubin AST ALT Alkaline Phosphatase Ammonia CK-MB (CK-2) CK-MB (CK-2) Rel Index Total Protein Albumin Arterial Blood Glucose Arterial Blood Ionized Calcium Urine Creatinine Urine Total Protein Salicylates Acetaminophen Crossmatch 10/03/20 10/04/20 10/04/20 21:32 01:04 01:11 WBC RBC Hgb 9.6 L D Hct 28.3 L D MCV MCH MCHC RDW Plt Count [place] % (Auto) [place] # (Auto) Seg Neutrophils % Seg Neuts % (Manual) Lymphocytes % (Manual) Monocytes % (Manual) Basophils % (Manual) Nucleated RBC % Seg Neutrophils # Seg Neutrophils # Man Lymphocytes # (Manual) Monocytes # (Manual) Basophils # (Manual) PT INR APTT Fibrinogen D-Dimer ABG pH POC ABG pCO2 POC ABG pO2 ABG Hemoglobin ABG Oxyhemoglobin ABG Sodium ABG Potassium ABG Chloride ABG Glucose Sodium Potassium Chloride Carbon Dioxide BUN Creatinine Glucose POC Glucose 65 L 51 L Lactic Acid Calcium Magnesium Iron Total Bilirubin Direct Bilirubin AST ALT Alkaline Phosphatase Ammonia CK-MB (CK-2) CK-MB (CK-2) Rel Index Total Protein Albumin Arterial Blood Glucose Arterial Blood Ionized Calcium Urine Creatinine Urine Total Protein Salicylates Acetaminophen Crossmatch 10/04/20 10/04/20 10/04/20 05:59 05:59 15:10 WBC 13.4 H RBC Hgb 9.9 L 10.1 L Hct 32.0 L 31.8 L MCV 76 L MCH 24 L MCHC 31 L RDW 31.3 H Plt Count [place] % (Auto) [place] # (Auto) Seg Neutrophils % Seg Neuts % (Manual) 86.0 H Lymphocytes % (Manual) 6.0 L Monocytes % (Manual) 8.0 H Basophils % (Manual) Nucleated RBC % 2.0 H Seg Neutrophils # Seg Neutrophils # Man 11.5 H Lymphocytes # (Manual) 0.8 L Monocytes # (Manual) 1.1 H Basophils # (Manual) PT INR APTT Fibrinogen D-Dimer ABG pH POC ABG pCO2 POC ABG pO2 ABG Hemoglobin ABG Oxyhemoglobin ABG Sodium ABG Potassium ABG Chloride ABG Glucose Sodium 136 L Potassium 3.5 L Chloride Carbon Dioxide 19 L D BUN Creatinine Glucose POC Glucose Lactic Acid Calcium Magnesium Iron Total Bilirubin Direct Bilirubin AST ALT Alkaline Phosphatase Ammonia CK-MB (CK-2) CK-MB (CK-2) Rel Index Total Protein Albumin 2.6 L Arterial Blood Glucose Arterial Blood Ionized Calcium Urine Creatinine Urine Total Protein Salicylates Acetaminophen Crossmatch 10/04/20 10/04/20 10/05/20 16:28 22:33 04:43 WBC RBC Hgb 10.5 L Hct 32.5 L MCV MCH MCHC RDW Plt Count [place] % (Auto) [place] # (Auto) Seg Neutrophils % Seg Neuts % (Manual) Lymphocytes % (Manual) Monocytes % (Manual) Basophils % (Manual) Nucleated RBC % Seg Neutrophils # Seg Neutrophils # Man Lymphocytes # (Manual) Monocytes # (Manual) Basophils # (Manual) PT INR APTT Fibrinogen D-Dimer ABG pH POC ABG pCO2 POC ABG pO2 ABG Hemoglobin ABG Oxyhemoglobin ABG Sodium ABG Potassium ABG Chloride ABG Glucose Sodium Potassium Chloride Carbon Dioxide BUN Creatinine Glucose POC Glucose 66 L 113 H Lactic Acid Calcium Magnesium Iron Total Bilirubin Direct Bilirubin AST ALT Alkaline Phosphatase Ammonia CK-MB (CK-2) CK-MB (CK-2) Rel Index Total Protein Albumin Arterial Blood Glucose Arterial Blood Ionized Calcium Urine Creatinine Urine Total Protein Salicylates Acetaminophen Crossmatch 10/05/20 10/05/20 10/05/20 05:00 09:42 11:57 WBC RBC Hgb 9.8 L Hct 30.5 L MCV 74 L MCH 24 L MCHC RDW 31.6 H Plt Count [place] % (Auto) [place] # (Auto) Seg Neutrophils % Seg Neuts % (Manual) Lymphocytes % (Manual) Monocytes % (Manual) Basophils % (Manual) Nucleated RBC % Seg Neutrophils # Seg Neutrophils # Man Lymphocytes # (Manual) Monocytes # (Manual) Basophils # (Manual) PT INR APTT Fibrinogen D-Dimer ABG pH POC ABG pCO2 POC ABG pO2 ABG Hemoglobin ABG Oxyhemoglobin ABG Sodium ABG Potassium ABG Chloride ABG Glucose Sodium 132 L Potassium 3.5 L Chloride Carbon Dioxide 19 L BUN Creatinine 0.7 L Glucose POC Glucose 129 H Lactic Acid Calcium Magnesium Iron Total Bilirubin Direct Bilirubin AST ALT Alkaline Phosphatase Ammonia CK-MB (CK-2) CK-MB (CK-2) Rel Index Total Protein Albumin Arterial Blood Glucose Arterial Blood Ionized Calcium Urine Creatinine Urine Total Protein Salicylates Acetaminophen Crossmatch 10/05/20 10/05/20 10/06/20 16:47 21:51 05:07 WBC RBC Hgb 9.4 L Hct 30.1 L MCV 76 L MCH 24 L MCHC 31 L RDW 31.1 H Plt Count [place] % (Auto) [place] # (Auto) Seg Neutrophils % Seg Neuts % (Manual) Lymphocytes % (Manual) Monocytes % (Manual) Basophils % (Manual) Nucleated RBC % Seg Neutrophils # Seg Neutrophils # Man Lymphocytes # (Manual) Monocytes # (Manual) Basophils # (Manual) PT INR APTT Fibrinogen D-Dimer ABG pH POC ABG pCO2 POC ABG pO2 ABG Hemoglobin ABG Oxyhemoglobin ABG Sodium ABG Potassium ABG Chloride ABG Glucose Sodium Potassium Chloride Carbon Dioxide BUN Creatinine Glucose POC Glucose 132 H 115 H Lactic Acid Calcium Magnesium Iron Total Bilirubin Direct Bilirubin AST ALT Alkaline Phosphatase Ammonia CK-MB (CK-2) CK-MB (CK-2) Rel Index Total Protein Albumin Arterial Blood Glucose Arterial Blood Ionized Calcium Urine Creatinine Urine Total Protein Salicylates Acetaminophen Crossmatch 10/06/20 10/06/20 10/06/20 05:07 15:37 21:01 WBC RBC Hgb Hct MCV MCH MCHC RDW Plt Count [place] % (Auto) [place] # (Auto) Seg Neutrophils % Seg Neuts % (Manual) Lymphocytes % (Manual) Monocytes % (Manual) Basophils % (Manual) Nucleated RBC % Seg Neutrophils # Seg Neutrophils # Man Lymphocytes # (Manual) Monocytes # (Manual) Basophils # (Manual) PT INR APTT Fibrinogen D-Dimer ABG pH POC ABG pCO2 POC ABG pO2 ABG Hemoglobin ABG Oxyhemoglobin ABG Sodium ABG Potassium ABG Chloride ABG Glucose Sodium 133 L Potassium 3.5 L Chloride Carbon Dioxide 21 L BUN Creatinine 0.6 L Glucose 105 H POC Glucose 136 H 108 H Lactic Acid Calcium Magnesium Iron Total Bilirubin Direct Bilirubin AST ALT Alkaline Phosphatase Ammonia CK-MB (CK-2) CK-MB (CK-2) Rel Index Total Protein Albumin Arterial Blood Glucose Arterial Blood Ionized Calcium Urine Creatinine Urine Total Protein Salicylates Acetaminophen Crossmatch 10/07/20 10/07/20 10/07/20 04:52 04:52 06:07 WBC RBC Hgb 9.6 L Hct 29.4 L MCV 73 L MCH 24 L MCHC RDW 32.2 H Plt Count [place] % (Auto) [place] # (Auto) Seg Neutrophils % Seg Neuts % (Manual) Lymphocytes % (Manual) Monocytes % (Manual) Basophils % (Manual) Nucleated RBC % Seg Neutrophils # Seg Neutrophils # Man Lymphocytes # (Manual) Monocytes # (Manual) Basophils # (Manual) PT INR APTT Fibrinogen D-Dimer ABG pH POC ABG pCO2 POC ABG pO2 ABG Hemoglobin ABG Oxyhemoglobin ABG Sodium ABG Potassium ABG Chloride ABG Glucose Sodium 128 L Potassium Chloride Carbon Dioxide 20 L BUN Creatinine 0.7 L Glucose POC Glucose 110 H Lactic Acid Calcium Magnesium Iron Total Bilirubin Direct Bilirubin AST ALT Alkaline Phosphatase Ammonia CK-MB (CK-2) CK-MB (CK-2) Rel Index Total Protein Albumin Arterial Blood Glucose Arterial Blood Ionized Calcium Urine Creatinine Urine Total Protein Salicylates Acetaminophen Crossmatch 10/07/20 10/07/20 10/07/20 17:09 18:53 20:35 WBC RBC Hgb Hct MCV MCH MCHC RDW Plt Count [place] % (Auto) [place] # (Auto) Seg Neutrophils % Seg Neuts % (Manual) Lymphocytes % (Manual) Monocytes % (Manual) Basophils % (Manual) Nucleated RBC % Seg Neutrophils # Seg Neutrophils # Man Lymphocytes # (Manual) Monocytes # (Manual) Basophils # (Manual) PT INR APTT Fibrinogen D-Dimer ABG pH POC ABG pCO2 POC ABG pO2 ABG Hemoglobin ABG Oxyhemoglobin ABG Sodium ABG Potassium ABG Chloride ABG Glucose Sodium Potassium Chloride Carbon Dioxide BUN Creatinine Glucose POC Glucose 67 L 66 L 62 L Lactic Acid Calcium Magnesium Iron Total Bilirubin Direct Bilirubin AST ALT Alkaline Phosphatase Ammonia CK-MB (CK-2) CK-MB (CK-2) Rel Index Total Protein Albumin Arterial Blood Glucose Arterial Blood Ionized Calcium Urine Creatinine Urine Total Protein Salicylates Acetaminophen Crossmatch 10/07/20 10/08/20 10/08/20 21:55 05:00 05:00 WBC RBC Hgb 9.6 L Hct 29.4 L MCV 73 L MCH 24 L MCHC RDW 32.4 H Plt Count [place] % (Auto) [place] # (Auto) Seg Neutrophils % 80.6 H Seg Neuts % (Manual) 88.0 H Lymphocytes % (Manual) 9.0 L Monocytes % (Manual) Basophils % (Manual) Nucleated RBC % 5.0 H Seg Neutrophils # Seg Neutrophils # Man Lymphocytes # (Manual) 0.5 L Monocytes # (Manual) Basophils # (Manual) PT INR APTT Fibrinogen D-Dimer ABG pH POC ABG pCO2 POC ABG pO2 ABG Hemoglobin ABG Oxyhemoglobin ABG Sodium ABG Potassium ABG Chloride ABG Glucose Sodium 126 L Potassium Chloride 96.3 L Carbon Dioxide BUN Creatinine 0.7 L Glucose POC Glucose 132 H Lactic Acid Calcium Magnesium Iron Total Bilirubin Direct Bilirubin AST ALT Alkaline Phosphatase Ammonia CK-MB (CK-2) CK-MB (CK-2) Rel Index Total Protein Albumin Arterial Blood Glucose Arterial Blood Ionized Calcium Urine Creatinine Urine Total Protein Salicylates Acetaminophen Crossmatch 10/08/20 10/09/20 10/09/20 22:26 01:36 02:22 WBC RBC Hgb Hct MCV MCH MCHC RDW Plt Count [place] % (Auto) [place] # (Auto) Seg Neutrophils % Seg Neuts % (Manual) Lymphocytes % (Manual) Monocytes % (Manual) Basophils % (Manual) Nucleated RBC % Seg Neutrophils # Seg Neutrophils # Man Lymphocytes # (Manual) Monocytes # (Manual) Basophils # (Manual) PT INR APTT Fibrinogen D-Dimer ABG pH POC ABG pCO2 POC ABG pO2 ABG Hemoglobin ABG Oxyhemoglobin ABG Sodium ABG Potassium ABG Chloride ABG Glucose Sodium Potassium Chloride Carbon Dioxide BUN Creatinine Glucose POC Glucose 63 L 62 L 151 H Lactic Acid Calcium Magnesium Iron Total Bilirubin Direct Bilirubin AST ALT Alkaline Phosphatase Ammonia CK-MB (CK-2) CK-MB (CK-2) Rel Index Total Protein Albumin Arterial Blood Glucose Arterial Blood Ionized Calcium Urine Creatinine Urine Total Protein Salicylates Acetaminophen Crossmatch 10/09/20 10/09/20 10/09/20 05:07 05:42 06:32 WBC RBC Hgb 10.3 L Hct 33.8 L MCV 77 L MCH 24 L MCHC 31 L RDW 33.6 H Plt Count 137 L [place] % (Auto) [place] # (Auto) Seg Neutrophils % Seg Neuts % (Manual) 89.0 H Lymphocytes % (Manual) 5.0 L Monocytes % (Manual) Basophils % (Manual) Nucleated RBC % 4.0 H Seg Neutrophils # Seg Neutrophils # Man 9.4 H Lymphocytes # (Manual) 0.5 L Monocytes # (Manual) Basophils # (Manual) PT INR APTT Fibrinogen D-Dimer ABG pH POC ABG pCO2 POC ABG pO2 ABG Hemoglobin ABG Oxyhemoglobin ABG Sodium ABG Potassium ABG Chloride ABG Glucose Sodium 126 L Potassium Chloride 97.8 L Carbon Dioxide 20 L BUN Creatinine Glucose 58 L POC Glucose 48 L Lactic Acid Calcium Magnesium Iron Total Bilirubin Direct Bilirubin AST ALT Alkaline Phosphatase Ammonia CK-MB (CK-2) CK-MB (CK-2) Rel Index Total Protein Albumin Arterial Blood Glucose Arterial Blood Ionized Calcium Urine Creatinine Urine Total Protein Salicylates Acetaminophen Crossmatch 10/09/20 10/10/20 10/10/20 06:35 00:21 05:53 WBC RBC Hgb Hct MCV MCH MCHC RDW Plt Count [place] % (Auto) [place] # (Auto) Seg Neutrophils % Seg Neuts % (Manual) Lymphocytes % (Manual) Monocytes % (Manual) Basophils % (Manual) Nucleated RBC % Seg Neutrophils # Seg Neutrophils # Man Lymphocytes # (Manual) Monocytes # (Manual) Basophils # (Manual) PT INR APTT Fibrinogen D-Dimer ABG pH POC ABG pCO2 POC ABG pO2 ABG Hemoglobin ABG Oxyhemoglobin ABG Sodium ABG Potassium ABG Chloride ABG Glucose Sodium Potassium Chloride Carbon Dioxide BUN Creatinine Glucose POC Glucose 106 H 153 H 34 L Lactic Acid Calcium Magnesium Iron Total Bilirubin Direct Bilirubin AST ALT Alkaline Phosphatase Ammonia CK-MB (CK-2) CK-MB (CK-2) Rel Index Total Protein Albumin Arterial Blood Glucose Arterial Blood Ionized Calcium Urine Creatinine Urine Total Protein Salicylates Acetaminophen Crossmatch 10/10/20 10/10/20 10/10/20 10:58 10:58 12:39 WBC RBC Hgb 10.3 L Hct 33.9 L MCV 78 L MCH 24 L MCHC 30 L RDW 33.2 H Plt Count 135 L [place] % (Auto) [place] # (Auto) Seg Neutrophils % Seg Neuts % (Manual) 74.0 H Lymphocytes % (Manual) 12.0 L Monocytes % (Manual) 9.0 H Basophils % (Manual) 2.0 H Nucleated RBC % Seg Neutrophils # Seg Neutrophils # Man Lymphocytes # (Manual) 1.0 L Monocytes # (Manual) Basophils # (Manual) 0.2 H PT INR APTT Fibrinogen D-Dimer ABG pH POC ABG pCO2 POC ABG pO2 ABG Hemoglobin ABG Oxyhemoglobin ABG Sodium ABG Potassium ABG Chloride ABG Glucose Sodium 127 L Potassium Chloride Carbon Dioxide 20 L BUN 23 H Creatinine Glucose POC Glucose 108 H Lactic Acid Calcium Magnesium Iron Total Bilirubin Direct Bilirubin AST ALT Alkaline Phosphatase Ammonia CK-MB (CK-2) CK-MB (CK-2) Rel Index Total Protein Albumin Arterial Blood Glucose Arterial Blood Ionized Calcium Urine Creatinine Urine Total Protein Salicylates Acetaminophen Crossmatch 10/10/20 10/11/20 10/11/20 16:51 04:56 05:51 WBC RBC Hgb 9.5 L Hct 31.3 L MCV 77 L MCH 23 L MCHC 30 L RDW 33.7 H Plt Count [place] % (Auto) [place] # (Auto) Seg Neutrophils % Seg Neuts % (Manual) 95.0 H Lymphocytes % (Manual) 2.0 L Monocytes % (Manual) Basophils % (Manual) Nucleated RBC % 3.0 H Seg Neutrophils # Seg Neutrophils # Man 8.0 H Lymphocytes # (Manual) 0.2 L Monocytes # (Manual) Basophils # (Manual) PT INR APTT Fibrinogen D-Dimer ABG pH POC ABG pCO2 POC ABG pO2 ABG Hemoglobin ABG Oxyhemoglobin ABG Sodium ABG Potassium ABG Chloride ABG Glucose Sodium Potassium Chloride Carbon Dioxide BUN Creatinine Glucose POC Glucose 142 H 124 H Lactic Acid Calcium Magnesium Iron Total Bilirubin Direct Bilirubin AST ALT Alkaline Phosphatase Ammonia CK-MB (CK-2) CK-MB (CK-2) Rel Index Total Protein Albumin Arterial Blood Glucose Arterial Blood Ionized Calcium Urine Creatinine Urine Total Protein Salicylates Acetaminophen Crossmatch 10/11/20 10/11/20 10/12/20 05:51 11:56 04:53 WBC RBC Hgb 9.5 L Hct 30.0 L MCV 75 L MCH 24 L MCHC RDW 32.8 H Plt Count 136 L [place] % (Auto) [place] # (Auto) Seg Neutrophils % Seg Neuts % (Manual) 89.0 H Lymphocytes % (Manual) 5.0 L Monocytes % (Manual) Basophils % (Manual) Nucleated RBC % Seg Neutrophils # Seg Neutrophils # Man Lymphocytes # (Manual) 0.4 L Monocytes # (Manual) Basophils # (Manual) PT INR APTT Fibrinogen D-Dimer ABG pH POC ABG pCO2 POC ABG pO2 ABG Hemoglobin ABG Oxyhemoglobin ABG Sodium ABG Potassium ABG Chloride ABG Glucose Sodium 130 L Potassium Chloride Carbon Dioxide 18 L BUN 23 H Creatinine Glucose POC Glucose 126 H Lactic Acid Calcium Magnesium Iron Total Bilirubin Direct Bilirubin AST ALT Alkaline Phosphatase Ammonia CK-MB (CK-2) CK-MB (CK-2) Rel Index Total Protein Albumin Arterial Blood Glucose Arterial Blood Ionized Calcium Urine Creatinine Urine Total Protein Salicylates Acetaminophen Crossmatch 10/12/20 10/12/20 10/12/20 04:53 11:42 23:49 WBC RBC Hgb Hct MCV MCH MCHC RDW Plt Count [place] % (Auto) [place] # (Auto) Seg Neutrophils % Seg Neuts % (Manual) Lymphocytes % (Manual) Monocytes % (Manual) Basophils % (Manual) Nucleated RBC % Seg Neutrophils # Seg Neutrophils # Man Lymphocytes # (Manual) Monocytes # (Manual) Basophils # (Manual) PT INR APTT Fibrinogen D-Dimer ABG pH POC ABG pCO2 POC ABG pO2 ABG Hemoglobin ABG Oxyhemoglobin ABG Sodium ABG Potassium ABG Chloride ABG Glucose Sodium 130 L Potassium Chloride Carbon Dioxide 18 L BUN 25 H Creatinine Glucose 74 L POC Glucose 59 L 51 L Lactic Acid Calcium Magnesium Iron Total Bilirubin Direct Bilirubin AST ALT Alkaline Phosphatase Ammonia CK-MB (CK-2) CK-MB (CK-2) Rel Index Total Protein Albumin Arterial Blood Glucose Arterial Blood Ionized Calcium Urine Creatinine Urine Total Protein Salicylates Acetaminophen Crossmatch 10/13/20 10/13/20 10/13/20 03:17 05:24 05:24 WBC RBC Hgb 9.4 L Hct 29.4 L MCV 75 L MCH 24 L MCHC RDW 32.9 H Plt Count 95 L [place] % (Auto) [place] # (Auto) Seg Neutrophils % Seg Neuts % (Manual) 90.0 H Lymphocytes % (Manual) Monocytes % (Manual) Basophils % (Manual) Nucleated RBC % 2.0 H Seg Neutrophils # Seg Neutrophils # Man 9.5 H Lymphocytes # (Manual) 0.0 L Monocytes # (Manual) Basophils # (Manual) PT INR APTT Fibrinogen D-Dimer ABG pH POC ABG pCO2 POC ABG pO2 ABG Hemoglobin ABG Oxyhemoglobin ABG Sodium ABG Potassium ABG Chloride ABG Glucose Sodium 132 L Potassium Chloride Carbon Dioxide 17 L BUN 26 H Creatinine 1.6 H Glucose POC Glucose 67 L Lactic Acid Calcium Magnesium Iron Total Bilirubin Direct Bilirubin AST ALT Alkaline Phosphatase Ammonia CK-MB (CK-2) CK-MB (CK-2) Rel Index Total Protein Albumin Arterial Blood Glucose Arterial Blood Ionized Calcium Urine Creatinine Urine Total Protein Salicylates Acetaminophen Crossmatch 10/13/20 10/14/20 10/14/20 11:36 05:04 05:04 WBC 17.4 H RBC Hgb 9.3 L Hct 29.3 L MCV 76 L MCH 24 L MCHC RDW 33.8 H Plt Count 83 L [place] % (Auto) [place] # (Auto) Seg Neutrophils % Seg Neuts % (Manual) 89.0 H Lymphocytes % (Manual) 4.0 L Monocytes % (Manual) Basophils % (Manual) Nucleated RBC % 1.0 H Seg Neutrophils # Seg Neutrophils # Man 15.5 H Lymphocytes # (Manual) 0.7 L Monocytes # (Manual) Basophils # (Manual) PT INR APTT Fibrinogen D-Dimer ABG pH POC ABG pCO2 POC ABG pO2 ABG Hemoglobin ABG Oxyhemoglobin ABG Sodium ABG Potassium ABG Chloride ABG Glucose Sodium 132 L Potassium 5.3 H Chloride 108.7 H Carbon Dioxide 15 L BUN 25 H Creatinine 1.5 H Glucose POC Glucose 58 L Lactic Acid Calcium Magnesium Iron Total Bilirubin Direct Bilirubin AST ALT Alkaline Phosphatase Ammonia CK-MB (CK-2) CK-MB (CK-2) Rel Index Total Protein Albumin Arterial Blood Glucose Arterial Blood Ionized Calcium Urine Creatinine Urine Total Protein Salicylates Acetaminophen Crossmatch 10/14/20 10/14/20 10/14/20 05:41 08:19 15:34 WBC RBC Hgb Hct MCV MCH MCHC RDW Plt Count [place] % (Auto) [place] # (Auto) Seg Neutrophils % Seg Neuts % (Manual) Lymphocytes % (Manual) Monocytes % (Manual) Basophils % (Manual) Nucleated RBC % Seg Neutrophils # Seg Neutrophils # Man Lymphocytes # (Manual) Monocytes # (Manual) Basophils # (Manual) PT INR APTT Fibrinogen D-Dimer ABG pH POC ABG pCO2 POC ABG pO2 ABG Hemoglobin ABG Oxyhemoglobin ABG Sodium ABG Potassium ABG Chloride ABG Glucose Sodium 134 L Potassium 5.2 H Chloride 111.1 H Carbon Dioxide 16 L BUN 25 H Creatinine 1.5 H Glucose POC Glucose 58 L 120 H Lactic Acid Calcium Magnesium Iron Total Bilirubin Direct Bilirubin AST ALT Alkaline Phosphatase Ammonia CK-MB (CK-2) CK-MB (CK-2) Rel Index Total Protein Albumin Arterial Blood Glucose Arterial Blood Ionized Calcium Urine Creatinine Urine Total Protein Salicylates Acetaminophen Crossmatch 10/14/20 10/15/20 10/15/20 Unknown 05:50 05:50 WBC 14.1 H RBC Hgb 9.4 L Hct 29.9 L MCV 76 L MCH 24 L MCHC 31 L RDW 34.2 H Plt Count 86 L [place] % (Auto) 8.3 H [place] # (Auto) 1.3 H Seg Neutrophils % 86.5 H Seg Neuts % (Manual) Lymphocytes % (Manual) 9.0 L Monocytes % (Manual) Basophils % (Manual) Nucleated RBC % 6.0 H Seg Neutrophils # 13.2 H Seg Neutrophils # Man 9.7 H Lymphocytes # (Manual) Monocytes # (Manual) Basophils # (Manual) PT INR APTT Fibrinogen D-Dimer ABG pH POC ABG pCO2 POC ABG pO2 ABG Hemoglobin ABG Oxyhemoglobin ABG Sodium ABG Potassium ABG Chloride ABG Glucose Sodium 134 L Potassium Chloride 109.9 H Carbon Dioxide 18 L BUN 26 H Creatinine 1.5 H Glucose 125 H POC Glucose Lactic Acid Calcium Magnesium Iron Total Bilirubin Direct Bilirubin AST ALT Alkaline Phosphatase Ammonia CK-MB (CK-2) CK-MB (CK-2) Rel Index Total Protein Albumin Arterial Blood Glucose Arterial Blood Ionized Calcium Urine Creatinine 144.2 H Urine Total Protein 97 H Salicylates Acetaminophen Crossmatch 10/15/20 10/15/20 10/15/20 05:55 07:36 07:59 WBC RBC Hgb Hct MCV MCH MCHC RDW Plt Count [place] % (Auto) [place] # (Auto) Seg Neutrophils % Seg Neuts % (Manual) Lymphocytes % (Manual) Monocytes % (Manual) Basophils % (Manual) Nucleated RBC % Seg Neutrophils # Seg Neutrophils # Man Lymphocytes # (Manual) Monocytes # (Manual) Basophils # (Manual) PT INR APTT Fibrinogen D-Dimer ABG pH 7.052 L POC ABG pCO2 65.0 H POC ABG pO2 214.1 H ABG Hemoglobin 10.6 L ABG Oxyhemoglobin 98.3 H ABG Sodium 130.6 L ABG Potassium ABG Chloride 110.0 H ABG Glucose 124 H Sodium Potassium Chloride Carbon Dioxide BUN Creatinine Glucose POC Glucose 113 H 114 H Lactic Acid Calcium Magnesium Iron Total Bilirubin Direct Bilirubin AST ALT Alkaline Phosphatase Ammonia CK-MB (CK-2) CK-MB (CK-2) Rel Index Total Protein Albumin Arterial Blood Glucose 124 H Arterial Blood Ionized Calcium Urine Creatinine Urine Total Protein Salicylates Acetaminophen Crossmatch 10/15/20 10/15/20 10/15/20 10:50 11:27 13:56 WBC RBC Hgb Hct MCV MCH MCHC RDW Plt Count [place] % (Auto) [place] # (Auto) Seg Neutrophils % Seg Neuts % (Manual) Lymphocytes % (Manual) Monocytes % (Manual) Basophils % (Manual) Nucleated RBC % Seg Neutrophils # Seg Neutrophils # Man Lymphocytes # (Manual) Monocytes # (Manual) Basophils # (Manual) PT INR APTT Fibrinogen D-Dimer ABG pH 7.200 L POC ABG pCO2 POC ABG pO2 123.1 H ABG Hemoglobin ABG Oxyhemoglobin ABG Sodium 131.3 L ABG Potassium 4.6 H ABG Chloride 112.0 H ABG Glucose 42 L Sodium Potassium Chloride Carbon Dioxide BUN Creatinine Glucose POC Glucose 50 L 476 H Lactic Acid Calcium Magnesium Iron Total Bilirubin Direct Bilirubin AST ALT Alkaline Phosphatase Ammonia CK-MB (CK-2) CK-MB (CK-2) Rel Index Total Protein Albumin Arterial Blood Glucose 42 L Arterial Blood Ionized Calcium Urine Creatinine Urine Total Protein Salicylates Acetaminophen Crossmatch 10/15/20 10/15/20 10/16/20 16:46 17:01 00:45 WBC RBC Hgb Hct MCV MCH MCHC RDW Plt Count [place] % (Auto) [place] # (Auto) Seg Neutrophils % Seg Neuts % (Manual) Lymphocytes % (Manual) Monocytes % (Manual) Basophils % (Manual) Nucleated RBC % Seg Neutrophils # Seg Neutrophils # Man Lymphocytes # (Manual) Monocytes # (Manual) Basophils # (Manual) PT INR APTT Fibrinogen D-Dimer ABG pH 7.250 L POC ABG pCO2 POC ABG pO2 49.8 L ABG Hemoglobin 9.3 L ABG Oxyhemoglobin 83.0 L ABG Sodium 130.2 L ABG Potassium ABG Chloride 111.0 H ABG Glucose Sodium 135 L Potassium Chloride Carbon Dioxide BUN Creatinine Glucose POC Glucose 67 L Lactic Acid Calcium Magnesium Iron Total Bilirubin Direct Bilirubin AST ALT Alkaline Phosphatase Ammonia CK-MB (CK-2) CK-MB (CK-2) Rel Index Total Protein Albumin Arterial Blood Glucose Arterial Blood Ionized Calcium Urine Creatinine Urine Total Protein Salicylates Acetaminophen Crossmatch 10/16/20 10/16/20 10/16/20 05:36 05:53 05:53 WBC 16.6 H RBC 3.52 L Hgb 8.3 L Hct 26.6 L MCV 75 L MCH 23 L MCHC 31 L RDW 33.7 H Plt Count 63 L [place] % (Auto) [place] # (Auto) Seg Neutrophils % Seg Neuts % (Manual) 93.0 H Lymphocytes % (Manual) Monocytes % (Manual) Basophils % (Manual) Nucleated RBC % 3.0 H Seg Neutrophils # Seg Neutrophils # Man 15.4 H Lymphocytes # (Manual) 0.0 L Monocytes # (Manual) Basophils # (Manual) PT INR APTT Fibrinogen D-Dimer ABG pH POC ABG pCO2 POC ABG pO2 ABG Hemoglobin ABG Oxyhemoglobin ABG Sodium ABG Potassium ABG Chloride ABG Glucose Sodium 136 L Potassium Chloride 111.9 H Carbon Dioxide 17 L BUN 29 H Creatinine 2.0 H Glucose 126 H POC Glucose 44 L Lactic Acid Calcium 8.1 L Magnesium Iron Total Bilirubin Direct Bilirubin AST ALT Alkaline Phosphatase Ammonia CK-MB (CK-2) CK-MB (CK-2) Rel Index Total Protein Albumin Arterial Blood Glucose Arterial Blood Ionized Calcium Urine Creatinine Urine Total Protein Salicylates Acetaminophen Crossmatch 10/16/20 10/16/20 10/16/20 05:53 07:26 08:07 WBC RBC Hgb Hct MCV MCH MCHC RDW Plt Count [place] % (Auto) [place] # (Auto) Seg Neutrophils % Seg Neuts % (Manual) Lymphocytes % (Manual) Monocytes % (Manual) Basophils % (Manual) Nucleated RBC % Seg Neutrophils # Seg Neutrophils # Man Lymphocytes # (Manual) Monocytes # (Manual) Basophils # (Manual) PT 24.5 H INR 2.17 H APTT Fibrinogen D-Dimer ABG pH POC ABG pCO2 POC ABG pO2 ABG Hemoglobin ABG Oxyhemoglobin ABG Sodium ABG Potassium ABG Chloride ABG Glucose Sodium Potassium Chloride Carbon Dioxide BUN Creatinine Glucose POC Glucose 58 L 51 L Lactic Acid Calcium Magnesium Iron Total Bilirubin Direct Bilirubin AST ALT Alkaline Phosphatase Ammonia CK-MB (CK-2) CK-MB (CK-2) Rel Index Total Protein Albumin Arterial Blood Glucose Arterial Blood Ionized Calcium Urine Creatinine Urine Total Protein Salicylates Acetaminophen Crossmatch 10/16/20 10/16/20 10/16/20 08:52 11:14 11:33 WBC RBC Hgb Hct MCV MCH MCHC RDW Plt Count [place] % (Auto) [place] # (Auto) Seg Neutrophils % Seg Neuts % (Manual) Lymphocytes % (Manual) Monocytes % (Manual) Basophils % (Manual) Nucleated RBC % Seg Neutrophils # Seg Neutrophils # Man Lymphocytes # (Manual) Monocytes # (Manual) Basophils # (Manual) PT INR APTT Fibrinogen D-Dimer ABG pH 7.044 L POC ABG pCO2 58.1 H POC ABG pO2 57.7 L ABG Hemoglobin 9.5 L ABG Oxyhemoglobin 81.5 L ABG Sodium 131.7 L ABG Potassium ABG Chloride 112.0 H ABG Glucose 59 L Sodium Potassium Chloride Carbon Dioxide BUN Creatinine Glucose POC Glucose 58 L Lactic Acid Calcium Magnesium Iron Total Bilirubin Direct Bilirubin AST 136 H ALT 72 H Alkaline Phosphatase 240 H Ammonia CK-MB (CK-2) CK-MB (CK-2) Rel Index Total Protein 5.1 L Albumin 2.1 L Arterial Blood Glucose 59 L Arterial Blood Ionized Calcium Urine Creatinine Urine Total Protein Salicylates Acetaminophen Crossmatch 10/16/20 10/16/20 10/16/20 12:32 13:11 13:40 WBC RBC Hgb Hct MCV MCH MCHC RDW Plt Count [place] % (Auto) [place] # (Auto) Seg Neutrophils % Seg Neuts % (Manual) Lymphocytes % (Manual) Monocytes % (Manual) Basophils % (Manual) Nucleated RBC % Seg Neutrophils # Seg Neutrophils # Man Lymphocytes # (Manual) Monocytes # (Manual) Basophils # (Manual) PT INR APTT Fibrinogen D-Dimer ABG pH POC ABG pCO2 POC ABG pO2 ABG Hemoglobin ABG Oxyhemoglobin ABG Sodium ABG Potassium ABG Chloride ABG Glucose Sodium Potassium Chloride Carbon Dioxide BUN Creatinine Glucose POC Glucose 27 L 54 L 69 L Lactic Acid Calcium Magnesium Iron Total Bilirubin Direct Bilirubin AST ALT Alkaline Phosphatase Ammonia CK-MB (CK-2) CK-MB (CK-2) Rel Index Total Protein Albumin Arterial Blood Glucose Arterial Blood Ionized Calcium Urine Creatinine Urine Total Protein Salicylates Acetaminophen Crossmatch 10/16/20 10/16/20 10/16/20 15:13 17:15 17:34 WBC RBC Hgb Hct MCV MCH MCHC RDW Plt Count [place] % (Auto) [place] # (Auto) Seg Neutrophils % Seg Neuts % (Manual) Lymphocytes % (Manual) Monocytes % (Manual) Basophils % (Manual) Nucleated RBC % Seg Neutrophils # Seg Neutrophils # Man Lymphocytes # (Manual) Monocytes # (Manual) Basophils # (Manual) PT INR APTT Fibrinogen D-Dimer ABG pH POC ABG pCO2 POC ABG pO2 ABG Hemoglobin ABG Oxyhemoglobin ABG Sodium ABG Potassium ABG Chloride ABG Glucose Sodium Potassium Chloride Carbon Dioxide BUN Creatinine Glucose POC Glucose 46 L 54 L 119 H Lactic Acid Calcium Magnesium Iron Total Bilirubin Direct Bilirubin AST ALT Alkaline Phosphatase Ammonia CK-MB (CK-2) CK-MB (CK-2) Rel Index Total Protein Albumin Arterial Blood Glucose Arterial Blood Ionized Calcium Urine Creatinine Urine Total Protein Salicylates Acetaminophen Crossmatch 10/16/20 10/16/20 10/16/20 18:51 19:37 21:00 WBC RBC Hgb Hct MCV MCH MCHC RDW Plt Count [place] % (Auto) [place] # (Auto) Seg Neutrophils % Seg Neuts % (Manual) Lymphocytes % (Manual) Monocytes % (Manual) Basophils % (Manual) Nucleated RBC % Seg Neutrophils # Seg Neutrophils # Man Lymphocytes # (Manual) Monocytes # (Manual) Basophils # (Manual) PT INR APTT Fibrinogen D-Dimer ABG pH 7.122 L POC ABG pCO2 49.8 H POC ABG pO2 62.1 L ABG Hemoglobin 9.1 L ABG Oxyhemoglobin 89.6 L ABG Sodium 130.1 L ABG Potassium 3.0 L ABG Chloride 111.0 H ABG Glucose 106 H Sodium Potassium Chloride Carbon Dioxide BUN Creatinine Glucose POC Glucose 64 L 114 H Lactic Acid Calcium Magnesium Iron Total Bilirubin Direct Bilirubin AST ALT Alkaline Phosphatase Ammonia CK-MB (CK-2) CK-MB (CK-2) Rel Index Total Protein Albumin Arterial Blood Glucose 106 H Arterial Blood Ionized Calcium Urine Creatinine Urine Total Protein Salicylates Acetaminophen Crossmatch 10/16/20 10/16/20 10/17/20 22:01 22:58 00:58 WBC RBC Hgb Hct MCV MCH MCHC RDW Plt Count [place] % (Auto) [place] # (Auto) Seg Neutrophils % Seg Neuts % (Manual) Lymphocytes % (Manual) Monocytes % (Manual) Basophils % (Manual) Nucleated RBC % Seg Neutrophils # Seg Neutrophils # Man Lymphocytes # (Manual) Monocytes # (Manual) Basophils # (Manual) PT INR APTT Fibrinogen D-Dimer ABG pH POC ABG pCO2 POC ABG pO2 ABG Hemoglobin ABG Oxyhemoglobin ABG Sodium ABG Potassium ABG Chloride ABG Glucose Sodium 133 L Potassium 3.5 L Chloride 107.7 H Carbon Dioxide 15 L BUN 29 H Creatinine 2.6 H Glucose POC Glucose 63 L 292 H Lactic Acid Calcium 7.9 L Magnesium Iron Total Bilirubin Direct Bilirubin AST ALT Alkaline Phosphatase Ammonia CK-MB (CK-2) CK-MB (CK-2) Rel Index Total Protein Albumin Arterial Blood Glucose Arterial Blood Ionized Calcium Urine Creatinine Urine Total Protein Salicylates Acetaminophen Crossmatch 10/17/20 10/17/20 10/17/20 02:04 03:08 03:55 WBC RBC Hgb Hct MCV MCH MCHC RDW Plt Count [place] % (Auto) [place] # (Auto) Seg Neutrophils % Seg Neuts % (Manual) Lymphocytes % (Manual) Monocytes % (Manual) Basophils % (Manual) Nucleated RBC % Seg Neutrophils # Seg Neutrophils # Man Lymphocytes # (Manual) Monocytes # (Manual) Basophils # (Manual) PT INR APTT Fibrinogen D-Dimer ABG pH POC ABG pCO2 POC ABG pO2 ABG Hemoglobin ABG Oxyhemoglobin ABG Sodium ABG Potassium ABG Chloride ABG Glucose Sodium Potassium Chloride Carbon Dioxide BUN Creatinine Glucose POC Glucose 200 H 173 H 161 H Lactic Acid Calcium Magnesium Iron Total Bilirubin Direct Bilirubin AST ALT Alkaline Phosphatase Ammonia CK-MB (CK-2) CK-MB (CK-2) Rel Index Total Protein Albumin Arterial Blood Glucose Arterial Blood Ionized Calcium Urine Creatinine Urine Total Protein Salicylates Acetaminophen Crossmatch 10/17/20 10/17/20 10/17/20 04:00 04:49 04:49 WBC 17.7 H RBC 3.21 L Hgb 7.5 L Hct 25.4 L MCV 79 L MCH 24 L MCHC 30 L RDW 34.0 H Plt Count 40 L [place] % (Auto) [place] # (Auto) Seg Neutrophils % Seg Neuts % (Manual) Lymphocytes % (Manual) 3.0 L Monocytes % (Manual) Basophils % (Manual) Nucleated RBC % 3.0 H Seg Neutrophils # Seg Neutrophils # Man 10.6 H Lymphocytes # (Manual) 0.5 L Monocytes # (Manual) 1.1 H Basophils # (Manual) PT INR APTT Fibrinogen D-Dimer ABG pH 7.116 L POC ABG pCO2 POC ABG pO2 61.1 L ABG Hemoglobin 8.4 L ABG Oxyhemoglobin 90.2 L ABG Sodium 125.0 L ABG Potassium 3.1 L ABG Chloride ABG Glucose 155 H Sodium 133 L Potassium 3.3 L Chloride Carbon Dioxide 15 L BUN 29 H Creatinine 2.7 H Glucose 138 H POC Glucose Lactic Acid Calcium 7.8 L Magnesium Iron Total Bilirubin Direct Bilirubin AST ALT Alkaline Phosphatase Ammonia CK-MB (CK-2) CK-MB (CK-2) Rel Index Total Protein Albumin Arterial Blood Glucose 155 H Arterial Blood Ionized Calcium Urine Creatinine Urine Total Protein Salicylates Acetaminophen Crossmatch 10/17/20 10/17/20 10/17/20 04:58 06:01 07:50 WBC RBC Hgb Hct MCV MCH MCHC RDW Plt Count [place] % (Auto) [place] # (Auto) Seg Neutrophils % Seg Neuts % (Manual) Lymphocytes % (Manual) Monocytes % (Manual) Basophils % (Manual) Nucleated RBC % Seg Neutrophils # Seg Neutrophils # Man Lymphocytes # (Manual) Monocytes # (Manual) Basophils # (Manual) PT INR APTT Fibrinogen D-Dimer ABG pH POC ABG pCO2 POC ABG pO2 ABG Hemoglobin ABG Oxyhemoglobin ABG Sodium ABG Potassium ABG Chloride ABG Glucose Sodium Potassium Chloride Carbon Dioxide BUN Creatinine Glucose POC Glucose 137 H 119 H 106 H Lactic Acid Calcium Magnesium Iron Total Bilirubin Direct Bilirubin AST ALT Alkaline Phosphatase Ammonia CK-MB (CK-2) CK-MB (CK-2) Rel Index Total Protein Albumin Arterial Blood Glucose Arterial Blood Ionized Calcium Urine Creatinine Urine Total Protein Salicylates Acetaminophen Crossmatch 10/17/20 10/17/20 10/17/20 11:50 15:11 18:11 WBC RBC Hgb Hct MCV MCH MCHC RDW Plt Count [place] % (Auto) [place] # (Auto) Seg Neutrophils % Seg Neuts % (Manual) Lymphocytes % (Manual) Monocytes % (Manual) Basophils % (Manual) Nucleated RBC % Seg Neutrophils # Seg Neutrophils # Man Lymphocytes # (Manual) Monocytes # (Manual) Basophils # (Manual) PT INR APTT Fibrinogen D-Dimer ABG pH POC ABG pCO2 POC ABG pO2 ABG Hemoglobin ABG Oxyhemoglobin ABG Sodium ABG Potassium ABG Chloride ABG Glucose Sodium Potassium Chloride Carbon Dioxide BUN Creatinine Glucose POC Glucose 111 H 114 H 137 H Lactic Acid Calcium Magnesium Iron Total Bilirubin Direct Bilirubin AST ALT Alkaline Phosphatase Ammonia CK-MB (CK-2) CK-MB (CK-2) Rel Index Total Protein Albumin Arterial Blood Glucose Arterial Blood Ionized Calcium Urine Creatinine Urine Total Protein Salicylates Acetaminophen Crossmatch 10/17/20 10/17/20 10/18/20 19:51 23:32 04:00 WBC RBC Hgb Hct MCV MCH MCHC RDW Plt Count [place] % (Auto) [place] # (Auto) Seg Neutrophils % Seg Neuts % (Manual) Lymphocytes % (Manual) Monocytes % (Manual) Basophils % (Manual) Nucleated RBC % Seg Neutrophils # Seg Neutrophils # Man Lymphocytes # (Manual) Monocytes # (Manual) Basophils # (Manual) PT INR APTT Fibrinogen D-Dimer ABG pH 7.276 L POC ABG pCO2 POC ABG pO2 77.7 L ABG Hemoglobin 7.2 L ABG Oxyhemoglobin ABG Sodium 122.6 L ABG Potassium ABG Chloride ABG Glucose 113 H Sodium Potassium Chloride Carbon Dioxide BUN Creatinine Glucose POC Glucose 130 H 114 H Lactic Acid Calcium Magnesium Iron Total Bilirubin Direct Bilirubin AST ALT Alkaline Phosphatase Ammonia CK-MB (CK-2) CK-MB (CK-2) Rel Index Total Protein Albumin Arterial Blood Glucose 113 H Arterial Blood Ionized Calcium Urine Creatinine Urine Total Protein Salicylates Acetaminophen Crossmatch 10/18/20 10/18/20 10/18/20 04:06 04:06 04:13 WBC RBC Hgb Hct MCV MCH MCHC RDW Plt Count [place] % (Auto) [place] # (Auto) Seg Neutrophils % Seg Neuts % (Manual) Lymphocytes % (Manual) Monocytes % (Manual) Basophils % (Manual) Nucleated RBC % Seg Neutrophils # Seg Neutrophils # Man Lymphocytes # (Manual) Monocytes # (Manual) Basophils # (Manual) PT 23.5 H INR 2.05 H APTT Fibrinogen D-Dimer ABG pH POC ABG pCO2 POC ABG pO2 ABG Hemoglobin ABG Oxyhemoglobin ABG Sodium ABG Potassium ABG Chloride ABG Glucose Sodium 123 L D Potassium Chloride 97.9 L Carbon Dioxide 16 L BUN 31 H Creatinine 3.1 H Glucose 113 H POC Glucose 108 H Lactic Acid Calcium 7.4 L Magnesium Iron Total Bilirubin Direct Bilirubin AST ALT Alkaline Phosphatase Ammonia CK-MB (CK-2) CK-MB (CK-2) Rel Index Total Protein Albumin Arterial Blood Glucose Arterial Blood Ionized Calcium Urine Creatinine Urine Total Protein Salicylates Acetaminophen Crossmatch 10/18/20 10/18/20 10/18/20 10:03 14:12 19:08 WBC RBC Hgb Hct MCV MCH MCHC RDW Plt Count [place] % (Auto) [place] # (Auto) Seg Neutrophils % Seg Neuts % (Manual) Lymphocytes % (Manual) Monocytes % (Manual) Basophils % (Manual) Nucleated RBC % Seg Neutrophils # Seg Neutrophils # Man Lymphocytes # (Manual) Monocytes # (Manual) Basophils # (Manual) PT INR APTT Fibrinogen D-Dimer ABG pH POC ABG pCO2 POC ABG pO2 ABG Hemoglobin ABG Oxyhemoglobin ABG Sodium ABG Potassium ABG Chloride ABG Glucose Sodium Potassium Chloride Carbon Dioxide BUN Creatinine Glucose POC Glucose 139 H 112 H Lactic Acid Calcium Magnesium Iron Total Bilirubin Direct Bilirubin AST ALT Alkaline Phosphatase Ammonia CK-MB (CK-2) CK-MB (CK-2) Rel Index Total Protein Albumin Arterial Blood Glucose Arterial Blood Ionized Calcium Urine Creatinine Urine Total Protein Salicylates Acetaminophen Crossmatch See Detail 10/18/20 10/19/2010/19/21 Unknown 02:02 04:00 WBC 19.8 H RBC 2.95 L Hgb 6.9 L Hct 22.2 L MCV 75 L MCH 24 L MCHC 31 L RDW 33.6 H Plt Count 28 L [place] % (Auto) [place] # (Auto) Seg Neutrophils % Seg Neuts % (Manual) Lymphocytes % (Manual) Monocytes % (Manual) Basophils % (Manual) Nucleated RBC % Seg Neutrophils # Seg Neutrophils # Man Lymphocytes # (Manual) Monocytes # (Manual) Basophils # (Manual) PT INR APTT Fibrinogen D-Dimer ABG pH 7.234 L POC ABG pCO2 POC ABG pO2 53.9 L ABG Hemoglobin 8.9 L ABG Oxyhemoglobin 86.6 L ABG Sodium 118.1 L ABG Potassium ABG Chloride 94.0 L ABG Glucose 61 L Sodium Potassium Chloride Carbon Dioxide BUN Creatinine Glucose POC Glucose 64 L Lactic Acid Calcium Magnesium Iron Total Bilirubin Direct Bilirubin AST ALT Alkaline Phosphatase Ammonia CK-MB (CK-2) CK-MB (CK-2) Rel Index Total Protein Albumin Arterial Blood Glucose 61 L Arterial Blood Ionized Calcium 4.5 L Urine Creatinine Urine Total Protein Salicylates Acetaminophen Crossmatch 10/19/20 10/19/20 10/19/20 04:51 04:51 05:43 WBC 18.2 H RBC 3.26 L Hgb 7.9 L Hct 24.6 L MCV 76 L MCH 24 L MCHC RDW 30.7 H Plt Count 41 L [place] % (Auto) [place] # (Auto) Seg Neutrophils % Seg Neuts % (Manual) Lymphocytes % (Manual) Monocytes % (Manual) Basophils % (Manual) Nucleated RBC % Seg Neutrophils # Seg Neutrophils # Man Lymphocytes # (Manual) Monocytes # (Manual) Basophils # (Manual) PT INR APTT Fibrinogen D-Dimer ABG pH POC ABG pCO2 POC ABG pO2 ABG Hemoglobin ABG Oxyhemoglobin ABG Sodium ABG Potassium ABG Chloride ABG Glucose Sodium 122 L Potassium Chloride 94.6 L Carbon Dioxide 17 L BUN 33 H Creatinine 3.5 H Glucose 63 L POC Glucose 54 L Lactic Acid Calcium 7.3 L Magnesium Iron Total Bilirubin 1.50 H Direct Bilirubin 0.9 H AST ALT Alkaline Phosphatase 154 H Ammonia CK-MB (CK-2) CK-MB (CK-2) Rel Index Total Protein 4.2 L Albumin 1.9 L Arterial Blood Glucose Arterial Blood Ionized Calcium Urine Creatinine Urine Total Protein Salicylates Acetaminophen Crossmatch 10/19/20 10/19/20 10/19/20 11:23 11:45 14:24 WBC RBC Hgb Hct MCV MCH MCHC RDW Plt Count [place] % (Auto) [place] # (Auto) Seg Neutrophils % Seg Neuts % (Manual) Lymphocytes % (Manual) Monocytes % (Manual) Basophils % (Manual) Nucleated RBC % Seg Neutrophils # Seg Neutrophils # Man Lymphocytes # (Manual) Monocytes # (Manual) Basophils # (Manual) PT INR APTT Fibrinogen D-Dimer ABG pH POC ABG pCO2 POC ABG pO2 ABG Hemoglobin ABG Oxyhemoglobin ABG Sodium ABG Potassium ABG Chloride ABG Glucose Sodium Potassium Chloride Carbon Dioxide BUN Creatinine Glucose POC Glucose 47 L 117 H 47 L Lactic Acid Calcium Magnesium Iron Total Bilirubin Direct Bilirubin AST ALT Alkaline Phosphatase Ammonia CK-MB (CK-2) CK-MB (CK-2) Rel Index Total Protein Albumin Arterial Blood Glucose Arterial Blood Ionized Calcium Urine Creatinine Urine Total Protein Salicylates Acetaminophen Crossmatch 10/19/20 10/19/20 10/19/20 16:31 20:04 20:19 WBC RBC Hgb Hct MCV MCH MCHC RDW Plt Count [place] % (Auto) [place] # (Auto) Seg Neutrophils % Seg Neuts % (Manual) Lymphocytes % (Manual) Monocytes % (Manual) Basophils % (Manual) Nucleated RBC % Seg Neutrophils # Seg Neutrophils # Man Lymphocytes # (Manual) Monocytes # (Manual) Basophils # (Manual) PT INR APTT Fibrinogen D-Dimer ABG pH POC ABG pCO2 POC ABG pO2 ABG Hemoglobin ABG Oxyhemoglobin ABG Sodium ABG Potassium ABG Chloride ABG Glucose Sodium Potassium Chloride Carbon Dioxide BUN Creatinine Glucose 59 L POC Glucose 58 L 49 L Lactic Acid Calcium Magnesium Iron Total Bilirubin Direct Bilirubin AST ALT Alkaline Phosphatase Ammonia CK-MB (CK-2) CK-MB (CK-2) Rel Index Total Protein Albumin Arterial Blood Glucose Arterial Blood Ionized Calcium Urine Creatinine Urine Total Protein Salicylates Acetaminophen Crossmatch 10/20/20 10/20/20 10/20/20 00:17 03:59 08:43 WBC 13.1 H RBC 3.42 L Hgb 8.3 L Hct 25.3 L MCV 74 L MCH 24 L MCHC RDW 31.4 H Plt Count 35 L [place] % (Auto) [place] # (Auto) Seg Neutrophils % Seg Neuts % (Manual) Lymphocytes % (Manual) Monocytes % (Manual) Basophils % (Manual) Nucleated RBC % Seg Neutrophils # Seg Neutrophils # Man Lymphocytes # (Manual) Monocytes # (Manual) Basophils # (Manual) PT INR APTT Fibrinogen D-Dimer ABG pH POC ABG pCO2 POC ABG pO2 ABG Hemoglobin ABG Oxyhemoglobin ABG Sodium ABG Potassium ABG Chloride ABG Glucose Sodium Potassium Chloride Carbon Dioxide BUN Creatinine Glucose POC Glucose 29 L 47 L Lactic Acid Calcium Magnesium Iron Total Bilirubin Direct Bilirubin AST ALT Alkaline Phosphatase Ammonia CK-MB (CK-2) CK-MB (CK-2) Rel Index Total Protein Albumin Arterial Blood Glucose Arterial Blood Ionized Calcium Urine Creatinine Urine Total Protein Salicylates Acetaminophen Crossmatch 10/20/20 10/20/20 10/20/20 08:43 08:43 09:56 WBC RBC Hgb Hct MCV MCH MCHC RDW Plt Count [place] % (Auto) [place] # (Auto) Seg Neutrophils % Seg Neuts % (Manual) Lymphocytes % (Manual) Monocytes % (Manual) Basophils % (Manual) Nucleated RBC % Seg Neutrophils # Seg Neutrophils # Man Lymphocytes # (Manual) Monocytes # (Manual) Basophils # (Manual) PT 30.1 H INR 2.82 H APTT Fibrinogen D-Dimer ABG pH POC ABG pCO2 POC ABG pO2 ABG Hemoglobin ABG Oxyhemoglobin ABG Sodium ABG Potassium ABG Chloride ABG Glucose Sodium 119 L* Potassium Chloride 90.7 L Carbon Dioxide 20 L BUN 35 H Creatinine 3.3 H Glucose 57 L POC Glucose 61 L Lactic Acid Calcium 7.7 L Magnesium 1.30 L Iron Total Bilirubin 1.60 H Direct Bilirubin AST ALT Alkaline Phosphatase 152 H Ammonia CK-MB (CK-2) CK-MB (CK-2) Rel Index Total Protein 4.5 L Albumin 1.6 L Arterial Blood Glucose Arterial Blood Ionized Calcium Urine Creatinine Urine Total Protein Salicylates Acetaminophen Crossmatch 10/20/20 10/20/20 10/20/20 15:35 17:30 20:17 WBC RBC Hgb Hct MCV MCH MCHC RDW Plt Count [place] % (Auto) [place] # (Auto) Seg Neutrophils % Seg Neuts % (Manual) Lymphocytes % (Manual) Monocytes % (Manual) Basophils % (Manual) Nucleated RBC % Seg Neutrophils # Seg Neutrophils # Man Lymphocytes # (Manual) Monocytes # (Manual) Basophils # (Manual) PT INR APTT Fibrinogen D-Dimer ABG pH POC ABG pCO2 POC ABG pO2 ABG Hemoglobin ABG Oxyhemoglobin ABG Sodium ABG Potassium ABG Chloride ABG Glucose Sodium 121 L 120 L Potassium Chloride Carbon Dioxide BUN Creatinine Glucose POC Glucose 61 L Lactic Acid Calcium Magnesium Iron Total Bilirubin Direct Bilirubin AST ALT Alkaline Phosphatase Ammonia CK-MB (CK-2) CK-MB (CK-2) Rel Index Total Protein Albumin Arterial Blood Glucose Arterial Blood Ionized Calcium Urine Creatinine Urine Total Protein Salicylates Acetaminophen Crossmatch 10/20/20 10/20/20 10/21/20 23:00 23:37 01:00 WBC RBC Hgb Hct MCV MCH MCHC RDW Plt Count [place] % (Auto) [place] # (Auto) Seg Neutrophils % Seg Neuts % (Manual) Lymphocytes % (Manual) Monocytes % (Manual) Basophils % (Manual) Nucleated RBC % Seg Neutrophils # Seg Neutrophils # Man Lymphocytes # (Manual) Monocytes # (Manual) Basophils # (Manual) PT INR APTT Fibrinogen D-Dimer ABG pH POC ABG pCO2 POC ABG pO2 ABG Hemoglobin ABG Oxyhemoglobin ABG Sodium ABG Potassium ABG Chloride ABG Glucose Sodium 121 L Potassium Chloride Carbon Dioxide BUN Creatinine Glucose POC Glucose 33 L 36 L Lactic Acid Calcium Magnesium Iron Total Bilirubin Direct Bilirubin AST ALT Alkaline Phosphatase Ammonia CK-MB (CK-2) CK-MB (CK-2) Rel Index Total Protein Albumin Arterial Blood Glucose Arterial Blood Ionized Calcium Urine Creatinine Urine Total Protein Salicylates Acetaminophen Crossmatch 10/21/20 10/21/20 10/21/20 02:31 04:00 05:22 WBC RBC Hgb Hct MCV MCH MCHC RDW Plt Count [place] % (Auto) [place] # (Auto) Seg Neutrophils % Seg Neuts % (Manual) Lymphocytes % (Manual) Monocytes % (Manual) Basophils % (Manual) Nucleated RBC % Seg Neutrophils # Seg Neutrophils # Man Lymphocytes # (Manual) Monocytes # (Manual) Basophils # (Manual) PT INR APTT Fibrinogen D-Dimer ABG pH POC ABG pCO2 POC ABG pO2 66.6 L ABG Hemoglobin 8.7 L ABG Oxyhemoglobin 92.1 L ABG Sodium 117.9 L ABG Potassium 3.2 L ABG Chloride 93.0 L ABG Glucose Sodium Potassium Chloride Carbon Dioxide BUN Creatinine Glucose POC Glucose 51 L 64 L Lactic Acid Calcium Magnesium Iron Total Bilirubin Direct Bilirubin AST ALT Alkaline Phosphatase Ammonia CK-MB (CK-2) CK-MB (CK-2) Rel Index Total Protein Albumin Arterial Blood Glucose Arterial Blood Ionized Calcium 4.4 L Urine Creatinine Urine Total Protein Salicylates Acetaminophen Crossmatch 10/21/20 10/21/20 10/21/20 05:50 05:50 10:32 WBC 11.1 H RBC 3.27 L Hgb 7.9 L Hct 23.9 L MCV 73 L MCH 24 L MCHC RDW 31.8 H Plt Count 26 L [place] % (Auto) [place] # (Auto) Seg Neutrophils % Seg Neuts % (Manual) Lymphocytes % (Manual) Monocytes % (Manual) Basophils % (Manual) Nucleated RBC % Seg Neutrophils # Seg Neutrophils # Man Lymphocytes # (Manual) Monocytes # (Manual) Basophils # (Manual) PT INR APTT Fibrinogen D-Dimer ABG pH POC ABG pCO2 POC ABG pO2 ABG Hemoglobin ABG Oxyhemoglobin ABG Sodium ABG Potassium ABG Chloride ABG Glucose Sodium 122 L Potassium 3.4 L Chloride 91.1 L Carbon Dioxide BUN 38 H Creatinine 3.2 H Glucose 56 L POC Glucose 68 L Lactic Acid Calcium 7.8 L Magnesium 1.60 L Iron Total Bilirubin Direct Bilirubin AST ALT Alkaline Phosphatase Ammonia CK-MB (CK-2) CK-MB (CK-2) Rel Index Total Protein Albumin Arterial Blood Glucose Arterial Blood Ionized Calcium Urine Creatinine Urine Total Protein Salicylates Acetaminophen Crossmatch 10/21/20 10/21/20 10/21/20 14:05 17:15 18:41 WBC RBC Hgb Hct MCV MCH MCHC RDW Plt Count [place] % (Auto) [place] # (Auto) Seg Neutrophils % Seg Neuts % (Manual) Lymphocytes % (Manual) Monocytes % (Manual) Basophils % (Manual) Nucleated RBC % Seg Neutrophils # Seg Neutrophils # Man Lymphocytes # (Manual) Monocytes # (Manual) Basophils # (Manual) PT INR APTT Fibrinogen D-Dimer ABG pH POC ABG pCO2 POC ABG pO2 ABG Hemoglobin ABG Oxyhemoglobin ABG Sodium ABG Potassium ABG Chloride ABG Glucose Sodium Potassium Chloride Carbon Dioxide BUN Creatinine Glucose POC Glucose 61 L 53 L 110 H Lactic Acid Calcium Magnesium Iron Total Bilirubin Direct Bilirubin AST ALT Alkaline Phosphatase Ammonia CK-MB (CK-2) CK-MB (CK-2) Rel Index Total Protein Albumin Arterial Blood Glucose Arterial Blood Ionized Calcium Urine Creatinine Urine Total Protein Salicylates Acetaminophen Crossmatch 10/21/20 10/21/20 10/21/20 21:08 22:20 Unknown WBC RBC Hgb Hct MCV MCH MCHC RDW Plt Count [place] % (Auto) [place] # (Auto) Seg Neutrophils % Seg Neuts % (Manual) Lymphocytes % (Manual) Monocytes % (Manual) Basophils % (Manual) Nucleated RBC % Seg Neutrophils # Seg Neutrophils # Man Lymphocytes # (Manual) Monocytes # (Manual) Basophils # (Manual) PT INR APTT Fibrinogen D-Dimer ABG pH POC ABG pCO2 POC ABG pO2 ABG Hemoglobin ABG Oxyhemoglobin ABG Sodium ABG Potassium ABG Chloride ABG Glucose Sodium 123 L 125 L Potassium 3.2 L Chloride 94.1 L Carbon Dioxide BUN 40 H Creatinine 3.3 H Glucose 64 L POC Glucose 117 H Lactic Acid Calcium 7.6 L Magnesium Iron Total Bilirubin Direct Bilirubin AST ALT Alkaline Phosphatase Ammonia CK-MB (CK-2) CK-MB (CK-2) Rel Index Total Protein Albumin Arterial Blood Glucose Arterial Blood Ionized Calcium Urine Creatinine Urine Total Protein Salicylates Acetaminophen Crossmatch 10/21/20 10/21/20 10/22/20 Unknown Unknown 02:43 WBC RBC 3.40 L Hgb 8.4 L Hct 24.8 L MCV 73 L MCH 25 L MCHC RDW 31.5 H Plt Count 21 L [place] % (Auto) [place] # (Auto) Seg Neutrophils % Seg Neuts % (Manual) 83.0 H Lymphocytes % (Manual) 10.0 L Monocytes % (Manual) Basophils % (Manual) Nucleated RBC % 2.0 H Seg Neutrophils # Seg Neutrophils # Man 9.0 H Lymphocytes # (Manual) 1.1 L Monocytes # (Manual) Basophils # (Manual) PT 27.0 H INR 2.44 H APTT 61.4 H* Fibrinogen 482 H D-Dimer 1992.93 H ABG pH POC ABG pCO2 POC ABG pO2 ABG Hemoglobin ABG Oxyhemoglobin ABG Sodium ABG Potassium ABG Chloride ABG Glucose Sodium 122 L Potassium 3.1 L Chloride 92.9 L Carbon Dioxide BUN 44 H Creatinine 3.2 H Glucose POC Glucose Lactic Acid Calcium 7.8 L Magnesium Iron Total Bilirubin Direct Bilirubin AST ALT Alkaline Phosphatase Ammonia CK-MB (CK-2) CK-MB (CK-2) Rel Index Total Protein Albumin Arterial Blood Glucose Arterial Blood Ionized Calcium Urine Creatinine Urine Total Protein Salicylates Acetaminophen Crossmatch 10/22/20 10/22/20 10/22/20 04:00 06:00 20:00 WBC RBC 3.29 L Hgb 8.0 L Hct 24.3 L MCV 74 L MCH 24 L MCHC RDW 32.2 H Plt Count 21 L [place] % (Auto) [place] # (Auto) Seg Neutrophils % Seg Neuts % (Manual) Lymphocytes % (Manual) Monocytes % (Manual) Basophils % (Manual) Nucleated RBC % Seg Neutrophils # Seg Neutrophils # Man Lymphocytes # (Manual) Monocytes # (Manual) Basophils # (Manual) PT INR APTT Fibrinogen D-Dimer ABG pH POC ABG pCO2 29.1 L POC ABG pO2 64.1 L ABG Hemoglobin 8.2 L ABG Oxyhemoglobin 90.6 L ABG Sodium 118.8 L ABG Potassium ABG Chloride 96.0 L ABG Glucose 117 H Sodium 126 L Potassium Chloride 95.8 L Carbon Dioxide 21 L BUN 50 H Creatinine 3.4 H Glucose POC Glucose Lactic Acid Calcium 7.9 L Magnesium Iron Total Bilirubin Direct Bilirubin AST ALT Alkaline Phosphatase Ammonia CK-MB (CK-2) CK-MB (CK-2) Rel Index Total Protein Albumin Arterial Blood Glucose 117 H Arterial Blood Ionized Calcium Urine Creatinine Urine Total Protein Salicylates Acetaminophen Crossmatch 10/23/20 10/23/20 10/23/20 04:00 05:35 05:35 WBC RBC 2.94 L Hgb 7.3 L Hct 21.3 L MCV 72 L MCH 25 L MCHC RDW 32.3 H Plt Count 56 L D [place] % (Auto) [place] # (Auto) Seg Neutrophils % Seg Neuts % (Manual) 83.0 H Lymphocytes % (Manual) 9.0 L Monocytes % (Manual) Basophils % (Manual) Nucleated RBC % 3.0 H Seg Neutrophils # Seg Neutrophils # Man Lymphocytes # (Manual) 0.7 L Monocytes # (Manual) Basophils # (Manual) PT INR APTT Fibrinogen D-Dimer ABG pH POC ABG pCO2 29.0 L POC ABG pO2 ABG Hemoglobin 7.7 L ABG Oxyhemoglobin ABG Sodium 120.4 L ABG Potassium ABG Chloride 97.0 L ABG Glucose Sodium 128 L Potassium Chloride 96.7 L Carbon Dioxide BUN 56 H Creatinine 3.4 H Glucose POC Glucose Lactic Acid Calcium Magnesium Iron Total Bilirubin Direct Bilirubin AST ALT Alkaline Phosphatase Ammonia CK-MB (CK-2) CK-MB (CK-2) Rel Index Total Protein Albumin Arterial Blood Glucose Arterial Blood Ionized Calcium Urine Creatinine Urine Total Protein Salicylates Acetaminophen Crossmatch 10/23/20 10/24/20 10/24/20 21:01 03:00 05:27 WBC RBC 2.98 L Hgb 7.4 L Hct 21.8 L MCV 73 L MCH 25 L MCHC RDW 32.2 H Plt Count 56 L [place] % (Auto) [place] # (Auto) Seg Neutrophils % Seg Neuts % (Manual) Lymphocytes % (Manual) Monocytes % (Manual) Basophils % (Manual) Nucleated RBC % Seg Neutrophils # Seg Neutrophils # Man Lymphocytes # (Manual) Monocytes # (Manual) Basophils # (Manual) PT INR APTT Fibrinogen D-Dimer ABG pH 7.490 H POC ABG pCO2 26.8 L POC ABG pO2 ABG Hemoglobin 3.3 L ABG Oxyhemoglobin 83.6 L ABG Sodium 118.0 L ABG Potassium ABG Chloride 97.0 L ABG Glucose Sodium Potassium Chloride Carbon Dioxide BUN Creatinine Glucose POC Glucose > 600 H Lactic Acid Calcium Magnesium Iron Total Bilirubin Direct Bilirubin AST ALT Alkaline Phosphatase Ammonia CK-MB (CK-2) CK-MB (CK-2) Rel Index Total Protein Albumin Arterial Blood Glucose Arterial Blood Ionized Calcium 4.5 L Urine Creatinine Urine Total Protein Salicylates Acetaminophen Crossmatch 10/24/20 10/24/20 10/24/20 05:27 05:27 10:07 WBC RBC Hgb Hct MCV MCH MCHC RDW Plt Count [place] % (Auto) [place] # (Auto) Seg Neutrophils % Seg Neuts % (Manual) Lymphocytes % (Manual) Monocytes % (Manual) Basophils % (Manual) Nucleated RBC % Seg Neutrophils # Seg Neutrophils # Man Lymphocytes # (Manual) Monocytes # (Manual) Basophils # (Manual) PT 20.4 H INR 1.70 H APTT Fibrinogen D-Dimer ABG pH POC ABG pCO2 POC ABG pO2 ABG Hemoglobin ABG Oxyhemoglobin ABG Sodium ABG Potassium ABG Chloride ABG Glucose Sodium 123 L Potassium 3.5 L Chloride 93.3 L Carbon Dioxide 20 L BUN 66 H Creatinine 3.9 H Glucose POC Glucose 110 H Lactic Acid Calcium 8.1 L Magnesium Iron Total Bilirubin Direct Bilirubin AST 54 H ALT Alkaline Phosphatase 316 H Ammonia CK-MB (CK-2) CK-MB (CK-2) Rel Index Total Protein 5.1 L Albumin 1.7 L Arterial Blood Glucose Arterial Blood Ionized Calcium Urine Creatinine Urine Total Protein Salicylates Acetaminophen Crossmatch 10/24/20 10/24/20 10/24/20 18:24 23:11 23:28 WBC RBC Hgb Hct MCV MCH MCHC RDW Plt Count [place] % (Auto) [place] # (Auto) Seg Neutrophils % Seg Neuts % (Manual) Lymphocytes % (Manual) Monocytes % (Manual) Basophils % (Manual) Nucleated RBC % Seg Neutrophils # Seg Neutrophils # Man Lymphocytes # (Manual) Monocytes # (Manual) Basophils # (Manual) PT INR APTT Fibrinogen D-Dimer ABG pH POC ABG pCO2 POC ABG pO2 ABG Hemoglobin ABG Oxyhemoglobin ABG Sodium ABG Potassium ABG Chloride ABG Glucose Sodium Potassium Chloride Carbon Dioxide BUN Creatinine Glucose 142 H POC Glucose 121 H 137 H Lactic Acid Calcium Magnesium Iron Total Bilirubin Direct Bilirubin AST ALT Alkaline Phosphatase Ammonia CK-MB (CK-2) CK-MB (CK-2) Rel Index Total Protein Albumin Arterial Blood Glucose Arterial Blood Ionized Calcium Urine Creatinine Urine Total Protein Salicylates Acetaminophen Crossmatch 10/25/20 10/25/20 10/25/20 05:22 05:22 05:28 WBC RBC Hgb Hct MCV MCH MCHC RDW Plt Count [place] % (Auto) [place] # (Auto) Seg Neutrophils % Seg Neuts % (Manual) Lymphocytes % (Manual) Monocytes % (Manual) Basophils % (Manual) Nucleated RBC % Seg Neutrophils # Seg Neutrophils # Man Lymphocytes # (Manual) Monocytes # (Manual) Basophils # (Manual) PT INR APTT Fibrinogen D-Dimer ABG pH POC ABG pCO2 POC ABG pO2 ABG Hemoglobin ABG Oxyhemoglobin ABG Sodium ABG Potassium ABG Chloride ABG Glucose Sodium 133 L D Potassium Chloride Carbon Dioxide BUN 55 H Creatinine 3.1 H Glucose 127 H 127 H POC Glucose 121 H Lactic Acid Calcium Magnesium Iron Total Bilirubin Direct Bilirubin AST ALT Alkaline Phosphatase Ammonia CK-MB (CK-2) CK-MB (CK-2) Rel Index Total Protein Albumin Arterial Blood Glucose Arterial Blood Ionized Calcium Urine Creatinine Urine Total Protein Salicylates Acetaminophen Crossmatch 10/25/20 10/25/20 08:35 11:39 WBC RBC 2.84 L Hgb 7.0 L Hct 20.9 L MCV 74 L MCH 25 L MCHC RDW 30.8 H Plt Count 101 L [place] % (Auto) [place] # (Auto) Seg Neutrophils % Seg Neuts % (Manual) Lymphocytes % (Manual) Monocytes % (Manual) Basophils % (Manual) Nucleated RBC % Seg Neutrophils # Seg Neutrophils # Man Lymphocytes # (Manual) Monocytes # (Manual) Basophils # (Manual) PT INR APTT Fibrinogen D-Dimer ABG pH POC ABG pCO2 POC ABG pO2 ABG Hemoglobin ABG Oxyhemoglobin ABG Sodium ABG Potassium ABG Chloride ABG Glucose Sodium Potassium Chloride Carbon Dioxide BUN Creatinine Glucose POC Glucose 165 H Lactic Acid Calcium Magnesium Iron Total Bilirubin Direct Bilirubin AST ALT Alkaline Phosphatase Ammonia CK-MB (CK-2) CK-MB (CK-2) Rel Index Total Protein Albumin Arterial Blood Glucose Arterial Blood Ionized Calcium Urine Creatinine Urine Total Protein Salicylates Acetaminophen Crossmatch Chest x-ray: image reviewed (vascath in good position; bilateral effusions) Allied health notes reviewed: nursing
--- NOTE | 2020-10-25 13:06 | Progress Note ---
Assessment and Plan Paroxysmal Afib w/RVR HFrEF * Given pt's hemodynamic instability (currently requiring multiple vasopressors), unable to start BB or non-dihydropyridine CCB * Converted back to AFib but rate controlled. Will continue to hold amio drip for now * Would not recommend anticoagulation currently given anemia/thrombocytopenia * Echo 10/04/2020-EF 25 to 30%, right ventricle severely dilated and moderately hypokinetic, left atrium is mildly dilated, right atrium severely dilated, moderate to severe tricuspid regurgitation, moderate mitral regurgitation tricuspid annulus dilated. Significant narrowing in bilateral posterior cerebral arteries Left-sided hemiparesis with aphasia Atherosclerotic cerebrovascular disease * Neurology following BETSY * Nephrology following Acute hypoxic respiratory failure * Pulmonology following Patient converted back to afib but rate controlled. Will hold amio as long patient is rate controlled Patient seen in conjunction with Dr. Rebolledo who agrees with this plan of care. Will continue to follow - Patient Problems (1) Afib Current Visit: Yes Status: Acute (2) Acute encephalopathy Current Visit: Yes Status: Acute (3) Atherosclerotic cerebrovascular disease Current Visit: Yes Status: Acute (4) Hypoglycemia Current Visit: Yes Status: Acute (5) Left-sided weakness Current Visit: Yes Status: Acute (6) Microcytic anemia Current Visit: Yes Status: Acute (7) Pulmonary infiltrate in right lung on CXR Current Visit: Yes Status: Acute (8) HFrEF (heart failure with reduced ejection fraction) Current Visit: Yes Status: Acute (9) Dilated cardiomyopathy Current Visit: Yes Status: Acute Subjective Date of service: 10/25/20 Principal diagnosis: Ac hypoxemic resp failure; Pneumonia; BETSY; Ac. encephalopathy Interval history: Patient intubated. Patient receiving HD today Patient afib 90s with episodes of RVR into 130s on monitor Objective Last Vital Signs Temp 98.1 F 10/25/20 11:50 Pulse 97 H 10/25/20 12:50 Resp 20 10/25/20 12:00 BP 107/52 10/25/20 12:50 Pulse Ox 95 10/25/20 12:39 - Physical Examination General: Other (intubated) HEENT: Positive: Mucus Membranes Dry Neck: Positive: trachea midline Cardiac: Positive: irregularly irregular Lungs: Positive: Ventilated Respirations Neuro: Positive: Other (intubated) Abdomen: Positive: Soft Skin: Negative: Rash Extremities: Present: upper extr. pulses, lower extr. pulses, edema - Labs and Meds CBC 10/25/20 Range/Units 08:35 WBC 9.9 (4.5-11.0) K/mm3 RBC 2.84 L (3.65-5.03) M/mm3 Hgb 7.0 L (11.8-15.2) gm/dl Hct 20.9 L (35.5-45.6) % Plt Count 101 L (140-440) K/mm3 Comprehensive Metabolic Panel 10/24/20 10/24/20 10/25/20 Range/Units 15:28 23:28 05:22 Sodium 133 L D (137-145) mmol/L Potassium 3.8 (3.6-5.0) mmol/L Chloride 98.7 (98-107) mmol/L Carbon Dioxide 23 (22-30) mmol/L BUN 55 H (9-20) mg/dL Creatinine 3.1 H (0.8-1.3) mg/dL Glucose 81 142 H 127 H (75-100) mg/dL Calcium 8.6 (8.4-10.2) mg/dL 10/25/20 Range/Units 05:22 Sodium (137-145) mmol/L Potassium (3.6-5.0) mmol/L Chloride (98-107) mmol/L Carbon Dioxide (22-30) mmol/L BUN (9-20) mg/dL Creatinine (0.8-1.3) mg/dL Glucose 127 H (75-100) mg/dL Calcium (8.4-10.2) mg/dL - Imaging and Cardiology EKG: report reviewed, image reviewed Echo: report reviewed - Telemetry EKG Rhythm: Atrial Fibrillation - EKG Supraventricular dysrhythmia: atrial fibrillation - Allied health notes Allied health notes reviewed: nursing
--- NOTE | 2020-10-25 16:58 | Progress Note ---
Assessment and Plan Assessment and plan: #Atherosclerotic cerebrovascular disease #Altered mental status -Persistent -Neurology following, recs appreciated -Continue Keppra, seizure precautions -Continue thiamine and folate -Status post EEG #Paroxysmal atrial fibrillation #Heart failure reduced ejection fraction -EF 10-15%, recent echo EF 25-30% -We will maintain MAP greater than 65 -dobutamine discontinued -will continue midodrine for now -Cardiology following -improved volume status post dialysis (2L removed) #Acute hypoxic respiratory failure -Currently on mechanical ventilation (intubated 10/15) -Vent settings: A/C, rate 20, TV 500, PEEP 8, FiO2 30% -CCM following, assistance appreciated -Continue stress dose steroids #BETSY -Nephrology following -2L removed during HD #Superficial venous thrombosis -Bilateral upper and lower extremity Doppler ultrasound show superficial venous thrombus of left basilic and cephalic veins #Thrombocytopenia -Platelet count 101 today; lowest 21 -improving we will continue to monitor; likely due to critical illness #GI bleed -Continue protonix -GI consulted in the past, will hold off EGD/PEG given clinical condition Total Time Spent with Patient (Minutes): 30 minutes History Interval history: Tmax 101.3 and tachycardic. Patient in Afib. Patient on mechanical ventilation and not responsive to commands. Hospitalist Physical - Physical exam Narrative exam: GENERAL: Intubated, non-responsive HEENT: Spontaneously moves head and opens eyes. ETT/PEGGY in place. CHEST/LUNGS: Coarse breath sound bilaterally. HEART/CARDIOVASCULAR: irregularly irregular rhythm. No murmur, rubs or gallops appreciated. ABDOMEN: +BS. NT/ND. SKIN: weeping edema on upper and lower extremities. NEURO: Unable to assess given patient mental status EXTREMITIES: 2+ edema PSYCH: Unable to assess. - Constitutional Vitals: Temp Pulse Resp BP Pulse Ox 98.8 F 90 20 116/55 97 10/25/20 16:00 10/25/20 16:31 10/25/20 16:00 10/25/20 16:31 10/25/20 16:31 General appearance: Present: no acute distress, other (intubated and minimally responsive to tactile stimuli) - Allied Health Allied health notes reviewed: nursing HEART Score - HEART Score Troponin: Troponin T < 0.010 ng/mL (0.00-0.029) 10/02/20 23:17 Results - Labs CBC & Chem 7: 10/25/20 08:35 10/25/20 15:09 Labs: Laboratory Last Values WBC 9.9 K/mm3 (4.5-11.0) 10/25/20 08:35 RBC 2.84 M/mm3 (3.65-5.03) L 10/25/20 08:35 Hgb 7.0 gm/dl (11.8-15.2) L 10/25/20 08:35 Hct 20.9 % (35.5-45.6) L 10/25/20 08:35 MCV 74 fl (84-94) L 10/25/20 08:35 MCH 25 pg (28-32) L 10/25/20 08:35 MCHC 34 % (32-34) 10/25/20 08:35 RDW 30.8 % (13.2-15.2) H 10/25/20 08:35 Plt Count 101 K/mm3 (140-440) L 10/25/20 08:35 Lymph % (Auto) Carrot Grader Inspector 10/10/20 10:58 [place] % (Auto) 8.3 % (0.0-7.3) H 10/15/20 05:50 Eos % (Auto) 0.3 % (0.0-4.3) 10/15/20 05:50 Baso % (Auto) Carrot Grader Inspector 10/10/20 10:58 Lymph # (Auto) Carrot Grader Inspector 10/10/20 10:58 [place] # (Auto) 1.3 K/mm3 (0.0-0.8) H 10/15/20 05:50 Eos # (Auto) 0.0 K/mm3 (0.0-0.4) 10/15/20 05:50 Baso # (Auto) 0.1 K/mm3 (0.0-0.1) 10/15/20 05:50 Add Manual Diff Complete 10/23/20 05:35 Total Counted 100 10/23/20 05:35 Seg Neutrophils % Carrot Grader Inspector 10/21/20 Unknown Seg Neuts % (Manual) 83.0 % (40.0-70.0) H 10/23/20 05:35 Band Neutrophils % 5.0 % 10/23/20 05:35 Lymphocytes % (Manual) 9.0 % (13.4-35.0) L 10/23/20 05:35 Reactive Lymphs % (Man) 1.0 % 10/23/20 05:35 Monocytes % (Manual) 1.0 % (0.0-7.3) 10/23/20 05:35 Eosinophils % (Manual) 1.0 % (0.0-4.3) 10/23/20 05:35 Basophils % (Manual) 2.0 % (0.0-1.8) H 10/10/20 10:58 Metamyelocytes % 11.0 % 10/17/20 04:49 Myelocytes % 7.0 % 10/17/20 04:49 Nucleated RBC % 3.0 % (0.0-0.9) H 10/23/20 05:35 Seg Neutrophils # 13.2 K/mm3 (1.8-7.7) H 10/15/20 05:50 Seg Neutrophils # Man 6.1 K/mm3 (1.8-7.7) 10/23/20 05:35 Band Neutrophils # 0.4 K/mm3 10/23/20 05:35 Lymphocytes # (Manual) 0.7 K/mm3 (1.2-5.4) L 10/23/20 05:35 Abs React Lymphs (Man) 0.1 K/mm3 10/23/20 05:35 Monocytes # (Manual) 0.1 K/mm3 (0.0-0.8) 10/23/20 05:35 Eosinophils # (Manual) 0.1 K/mm3 (0.0-0.4) 10/23/20 05:35 Basophils # (Manual) 0.0 K/mm3 (0.0-0.1) 10/23/20 05:35 Metamyelocytes # 0.0 K/mm3 10/23/20 05:35 Myelocytes # 0.0 K/mm3 10/23/20 05:35 Promyelocytes # 0.0 K/mm3 10/23/20 05:35 Blast Cells # 0.0 K/mm3 10/23/20 05:35 WBC Morphology Not Reportable 10/23/20 05:35 Hypersegmented Neuts Not Reportable 10/23/20 05:35 Hyposegmented Neuts Not Reportable 10/23/20 05:35 Hypogranular Neuts Not Reportable 10/23/20 05:35 Smudge Cells Not Reportable 10/23/20 05:35 Toxic Granulation 1+ 10/23/20 05:35 Toxic Vacuolation 1+ 10/23/20 05:35 Dohle Bodies 1+ 10/23/20 05:35 Pelger-Huet Anomaly Not Reportable 10/23/20 05:35 Andrés Rods Not Reportable 10/23/20 05:35 Platelet Estimate Consistent w auto 10/23/20 05:35 Clumped Platelets Not Reportable 10/23/20 05:35 Plt Clumps, EDTA Not Reportable 10/23/20 05:35 Large Platelets Not Reportable 10/23/20 05:35 Giant Platelets Not Reportable 10/23/20 05:35 Platelet Satelliting Not Reportable 10/23/20 05:35 Plt Morphology Comment Not Reportable 10/23/20 05:35 RBC Morphology Not Reportable 10/23/20 05:35 Dimorphic RBCs Not Reportable 10/23/20 05:35 Polychromasia 1+ 10/23/20 05:35 Hypochromasia 2+ 10/23/20 05:35 Poikilocytosis 2+ 10/23/20 05:35 Anisocytosis 3+ 10/23/20 05:35 Microcytosis Not Reportable 10/23/20 05:35 Macrocytosis Not Reportable 10/23/20 05:35 Spherocytes 1+ 10/23/20 05:35 Pappenheimer Bodies Not Reportable 10/23/20 05:35 Sickle Cells Not Reportable 10/23/20 05:35 Target Cells 1+ 10/23/20 05:35 Tear Drop Cells Not Reportable 10/23/20 05:35 Ovalocytes Not Reportable 10/23/20 05:35 Helmet Cells Not Reportable 10/23/20 05:35 [place] Bodies Not Reportable 10/23/20 05:35 [place] Rings Not Reportable 10/23/20 05:35 Norbert Cells Not Reportable 10/23/20 05:35 Bite Cells Not Reportable 10/23/20 05:35 Crenated Cell Not Reportable 10/23/20 05:35 Elliptocytes Not Reportable 10/23/20 05:35 Acanthocytes (Spur) 1+ 10/23/20 05:35 Rouleaux Not Reportable 10/23/20 05:35 Hemoglobin C Crystals Not Reportable 10/23/20 05:35 Schistocytes Not Reportable 10/23/20 05:35 Malaria parasites Not Reportable 10/23/20 05:35 Dereck Bodies Not Reportable 10/23/20 05:35 Hem Pathologist Commnt No 10/23/20 05:35 PT 20.4 Sec. (12.2-14.9) H 10/24/20 05:27 INR 1.70 (0.87-1.13) H 10/24/20 05:27 APTT 61.4 Sec. (24.2-36.6) H* 10/21/20 Unknown Thrombin Time 17.8 Sec. (15.1-19.6) 10/02/20 23:17 Fibrinogen 482 mg/dl (211-480) H 10/21/20 Unknown D-Dimer 1992.93 ng/mlDDU (0-234) H 10/21/20 Unknown ABG pH 7.478 (7.320-7.450) H 10/25/20 15:15 POC ABG pCO2 39.3 mmHg (32.0-48.0) 10/25/20 15:15 POC ABG pO2 39.0 mmHg (83-108) L 10/25/20 15:15 POC ABG HCO3 28.5 10/25/20 15:15 ABG O2 Saturation 73.5 (0-100) 10/25/20 15:15 POC ABG Base Excess 4.6 10/25/20 15:15 ABG Hemoglobin 7.7 (12.0-17.5) L 10/25/20 15:15 ABG Oxyhemoglobin 72.9 (94-98) L 10/25/20 15:15 ABG Methemoglobin 0.3 (0.0-1.5) 10/25/20 15:15 ABG Sodium 133.3 mmol/L (136.0-145.0) L 10/25/20 15:15 ABG Potassium 3.4 mmol/L (3.40-4.50) 10/25/20 15:15 ABG Chloride 102.0 mmol/L (98-107) 10/25/20 15:15 ABG Glucose 189 mg/dL (65-95) H 10/25/20 15:15 Carboxyhemoglobin 0.5 (0.5-1.5) 10/25/20 15:15 FiO2 % 30.0 10/25/20 15:15 Sodium 133 mmol/L (137-145) L D 10/25/20 05:22 Potassium 3.8 mmol/L (3.6-5.0) 10/25/20 05:22 Chloride 98.7 mmol/L (98-107) 10/25/20 05:22 Carbon Dioxide 23 mmol/L (22-30) 10/25/20 05:22 Anion Gap 15 mmol/L 10/25/20 05:22 BUN 55 mg/dL (9-20) H 10/25/20 05:22 Creatinine 3.1 mg/dL (0.8-1.3) H 10/25/20 05:22 Estimated GFR 24 ml/min 10/25/20 05:22 BUN/Creatinine Ratio 18 % 10/25/20 05:22 Glucose 179 mg/dL (75-100) H 10/25/20 15:09 POC Glucose 165 mg/dL (70-105) H 10/25/20 11:39 Hemoglobin A1c 5.2 % (4-6) 10/03/20 05:57 Osmolality 267 Mosm/kg 10/07/20 13:54 Lactic Acid 1.50 mmol/L (0.7-2.0) 10/03/20 04:43 Calcium 8.6 mg/dL (8.4-10.2) 10/25/20 05:22 Phosphorus 2.80 mg/dL (2.5-4.5) 10/23/20 05:35 Magnesium 2.10 mg/dL (1.7-2.3) 10/23/20 05:35 Iron 42 ug/dL (49-181) L 10/03/20 05:57 TIBC 305 mcg/dL (250-450) 10/03/20 05:57 Total Bilirubin 0.80 mg/dL (0.1-1.2) 10/24/20 05:27 Direct Bilirubin 0.9 mg/dL (0-0.2) H 10/19/20 04:51 Indirect Bilirubin 0.6 mg/dL 10/19/20 04:51 AST 54 units/L (5-40) H 10/24/20 05:27 ALT 54 units/L (7-56) 10/24/20 05:27 Alkaline Phosphatase 316 units/L (35-129) H 10/24/20 05:27 Ammonia 36.0 umol/L (25-60) 10/24/20 05:27 Total Creatine Kinase 88 units/L (55-170) 10/02/20 23:17 CK-MB (CK-2) 7.5 ng/mL (0.0-4.0) H 10/02/20 23:17 CK-MB (CK-2) Rel Index 8.5 (0-4) H 10/02/20 23:17 Troponin T < 0.010 ng/mL (0.00-0.029) 10/02/20 23:17 Total Protein 5.1 g/dL (6.3-8.2) L 10/24/20 05:27 Albumin 1.7 g/dL (3.9-5) L 10/24/20 05:27 Albumin/Globulin Ratio 0.5 % 10/24/20 05:27 Lipase 17 units/L (13-60) 10/16/20 22:58 Procalcitonin 0.10 ng/mL (<0.15) 10/10/20 10:58 TSH 2.130 mlU/mL (0.270-4.200) 10/07/20 13:54 Total Cortisol 17.4 mcg/dL () 10/09/20 02:46 Arterial Blood Glucose 189 mg/dL (65-95) H 10/25/20 15:15 Arterial Blood Ionized Calcium 4.4 mg/dL (4.6-5.3) L 10/25/20 15:15 Urine Eosinophils None seen (None Seen) 10/14/20 Unknown Urine Osmolality 223 Mosm/kg 10/07/20 Unknown Urine Creatinine 144.2 mg/dL (0.1-20.0) H 10/14/20 Unknown Protein/Creatinin Ratio 0.67 10/14/20 Unknown Urine Sodium 10 mmol/L 10/14/20 Unknown Urine Total Protein 97 mg/dL (5-11.8) H 10/14/20 Unknown Salicylates < 0.3 mg/dL (2.8-20.0) L 10/02/20 23:17 Acetaminophen 5.0 ug/mL (10.0-30.0) L 10/02/20 23:17 Plasma/Serum Alcohol < 0.01 % (0-0.07) 10/02/20 23:17 Coronavirus (PCR) Negative (Negative) 10/14/20 08:00 Hepatitis A IgM Ab Non-reactive (NonReactive) 10/24/20 15:28 Hep Bs Antigen Nonreactive (Negative) 10/24/20 15:28 Hep B Core IgM Ab Non-reactive (NonReactive) 10/24/20 15:28 Hepatitis C Antibody Non-reactive (NonReactive) 10/24/20 15:28 Blood Type O POSITIVE 10/22/20 15:05 Antibody Screen Negative 10/18/20 19:08 Crossmatch See Detail 10/18/20 19:08 Jackson/IV: Voiding Method Indwelling Catheter Active Medications - Current Medications Current Medications: Generic Name Dose Route Start Last Admin Trade Name Freq PRN Reason Stop Dose Admin Acetaminophen 650 mg 10/03/20 02:10 10/06/20 15:28 Acetaminophen 325 Mg Tab PO 650 mg Q4H PRN Administration Pain MILD(1-3)/Fever >100.5/ROMERO Al Hydrox/Mg Hydrox/Simethicone 30 ml 10/03/20 02:10 Alum-Mag Hydroxide-Simethicone [id number]/5ml Oral Liqd 30 Ml PO Q4H PRN Indigestion Lipase/Protease/Amylase 1 each 10/03/20 16:51 Lipase 10,500/Protease 25,000/Amylase 43,750 (Units) Dr Reis FEEDTUBE PRN PRN For Clogged Feeding Tube Dextrose 50 ml 10/16/20 12:42 10/21/20 17:39 Dextrose 50% In Water (25gm) 50 Ml Syringe IV 50 ml Q30MIN PRN Administration Hypoglycemia Protocol Fentanyl 50 mcg 10/22/20 10:00 Fentanyl 100 Mcg/2 Ml Inj IV Q4HR PRN Pain , Severe (7-10) Ferrous Sulfate 308 mg 10/16/20 10:00 10/25/20 09:00 Ferrous Sulfate 308 Mg (62mg Elemental Iron) / 7 Ml Elixir FEEDTUBE 308 mg DAILY JOSE Administration Folic Acid 1 mg 10/03/20 10:00 10/25/20 09:00 Folic Acid 1 Mg Tab PO 1 mg QDAY JOSE Administration Hydrocortisone Sodium Succinate 50 mg 10/25/20 10:00 10/25/20 09:01 Hydrocortisone Sod Succ 100 Mg/2 Ml Vial IV 10/25/20 22:01 50 mg Q12H JOSE Administration Hydrocortisone Sodium Succinate 50 mg 10/26/20 10:00 Hydrocortisone Sod Succ 100 Mg/2 Ml Vial IV 10/27/20 10:01 Q24H JOSE Levetiracetam 250 mg/ Dextrose 102.5 mls @ 400 mls/hr 10/10/20 22:00 10/25/20 09:15 IV Infused Q12HR JOSE Infusion NORepinephrine/NS 8 MG-250 ML 8 mg in 250 mls @ 3.75 mls/hr 10/16/20 19:00 10/21/20 16:56 Norepinephrine/Ns 8 Mg-250 Ml (Double Conc) IV 0 mcg/min TITRATE JOSE 0 mls/hr Titration Protocol 2 MCG/MIN Magnesium Hydroxide 30 ml 10/03/20 02:10 Magnesium Hydroxide (Mom) Oral Liqd Udc PO Q4H PRN Constipation Midodrine 10 mg 10/24/20 18:00 10/25/20 09:00 Midodrine 5 Mg Tab PO 10 mg Q8H JOSE Administration Pantoprazole Sodium 40 mg 10/04/20 15:00 10/25/20 09:00 Pantoprazole 40 Mg Inj IV 40 mg QDAY JOSE Administration Promethazine HCl 25 mg 10/03/20 02:10 Promethazine 25 Mg Rect Supp WI Q6H PRN N/V IF NPO AND NO IV ACCESS Senna 8.6 mg 10/03/20 02:10 Sennosides 8.6 Mg Tab PO Q12HR PRN Constipation Simple Syrup 15 ml 10/03/20 16:51 10/19/20 02:08 Simple Syrup 15 Ml FEEDTUBE 15 ml PRN PRN Administration Hypoglycemia Simple Syrup 30 ml 10/03/20 16:51 10/16/20 22:02 Simple Syrup 15 Ml FEEDTUBE 30 ml PRN PRN Administration Hypoglycemia Sodium Bicarbonate 325 mg 10/03/20 16:51 Sodium Bicarbonate 325 Mg Tab FEEDTUBE PRN PRN For Clogged Feeding Tube Nutrition/Malnutrition Assess - Dietary Evaluation Nutrition/Malnutrition Findings: Nutrition Notes Start: 10/03/20 08:51 Freq: Status: Active Protocol: Document 10/25/20 14:34 MK (Rec: 10/25/20 14:35 MK [id number]) Nutrition Notes Initial or Follow up Brief Note Current Diagnosis Diabetes Other Pertinent Diagnosis AMS, hypothermia, pneu, anemia , atherosclerotic cerebrovascular disease Current Diet Nepro 1.8 at 40 ml/hr Subjective/Other Information Out of Nepro TF until 10/26/20 AM. Once Nepro out, change TF to Glucerna 1.2 at 15ml/hr and increase by 10 ml q8h until goal rate of 65ml/hr is reached. Flush 75 ml q4h. Once Nepro back in stock, resume Nepro at 40 ml/hr. Nutrition Intervention Nutrition Support: Glucerna 1.2 at 65 ml/hr Flush 100 ml q4h Kcal 1,728 Protein (gm) 86 Fluid (mL) 1,159 Follow-Up By: 10/26/20 Additional Comments F/u: TF change
[2020-10-26] MEDS: MIDODRINE 5 MG TAB PO SCH ×3 (02:06→17:17)
[2020-10-26 06:22] LABS: Calcium 8.1 mg/dL (8.4-10.2)
[2020-10-26] MEDS: HYDROCORTISONE SOD SUCC 100 MG/2 ML VIAL IV SCH (09:18)
[2020-10-26] MEDS: PANTOPRAZOLE 40 MG INJ IV SCH (09:18)
[2020-10-26] MEDS: MULTIVITAMIN / MINERAL ORAL LIQUID 15 ML PO SCH (09:18)
[2020-10-26] MEDS: levETIRAcetam 250 MG in DEXTROSE 5% IN WATER 100 ML IV SCH ×2 (09:18→21:00)
[2020-10-26] MEDS: FOLIC ACID 1 MG TAB PO SCH (09:18)
[2020-10-26] MEDS: FERROUS SULFATE 308 MG (62mg Elemental Iron) / 7 ML ELIXIR FEEDTUBE SCH (09:19)
--- NOTE | 2020-10-26 09:31 | Progress Note ---
Assessment and Plan Acute encephalopathy Hyponatremia Hypothermia, resolved Pulmonary infiltrate in right lung on CXR Atherosclerotic cerebrovascular disease Severe anemia -possible GI bleed Severe protein-calorie malnutrition Acute Renal Failure Hypokalemia Plan: -cont daily HD for anuria and volume overload as long BP acceptable -Hyponatremia resolved after HD -Echo done 10/04/20 showed LVEF 25-30% -On Dobutamine drip. S/P Lasix drip -Renal ultrasound- no hydronephrosis -Avoid nephrotoxic agents -Obtain daily weights -Monitor I/O's daily -Monitor renal function closely Subjective Date of service: 10/26/20 Principal diagnosis: Ac hypoxemic resp failure; Pneumonia; BETSY; Ac. encephalopathy Interval history: intubated, no family at bedside Objective - Vital Signs Vital signs: Vital Signs - 12hr 10/25/20 10/25/20 10/25/20 21:30 21:45 22:00 Temperature Pulse Rate 84 99 H 83 Pulse Rate [ From Monitor] Respiratory 20 19 20 Rate Blood Pressure 85/49 85/53 87/48 O2 Sat by Pulse 96 96 96 Oximetry 10/25/20 10/25/20 10/25/20 22:15 22:19 22:30 Temperature Pulse Rate 84 90 97 H Pulse Rate [ From Monitor] Respiratory 20 20 20 Rate Blood Pressure 89/50 89/50 89/53 O2 Sat by Pulse 97 98 96 Oximetry 10/25/20 10/25/20 10/25/20 22:45 22:46 23:00 Temperature Pulse Rate 88 76 95 H Pulse Rate [ From Monitor] Respiratory 20 20 20 Rate Blood Pressure 97/54 89/50 103/54 O2 Sat by Pulse 99 98 100 Oximetry 10/25/20 10/25/20 10/25/20 23:15 23:30 23:45 Temperature Pulse Rate 98 H 102 H 101 H Pulse Rate [ From Monitor] Respiratory 21 19 20 Rate Blood Pressure 101/55 101/55 100/52 O2 Sat by Pulse 97 96 94 Oximetry 10/25/20 10/26/20 10/26/20 23:50 00:00 00:16 Temperature 98.1 F Pulse Rate 94 H 96 H 92 H Pulse Rate [ 104 H From Monitor] Respiratory 20 21 Rate Blood Pressure 95/50 107/53 103/55 O2 Sat by Pulse 94 95 92 Oximetry 10/26/20 10/26/20 10/26/20 00:30 00:45 01:00 Temperature Pulse Rate 105 H 106 H 99 H Pulse Rate [ From Monitor] Respiratory 22 20 20 Rate Blood Pressure 85/51 97/49 104/49 O2 Sat by Pulse 94 94 95 Oximetry 10/26/20 10/26/20 10/26/20 01:15 01:30 01:45 Temperature Pulse Rate 102 H 96 H 104 H Pulse Rate [ From Monitor] Respiratory 21 19 21 Rate Blood Pressure 88/54 96/50 83/51 O2 Sat by Pulse 94 94 94 Oximetry 10/26/20 10/26/20 10/26/20 02:00 02:15 02:30 Temperature Pulse Rate 100 H 101 H 101 H Pulse Rate [ From Monitor] Respiratory 19 19 20 Rate Blood Pressure 90/57 79/55 88/55 O2 Sat by Pulse 94 97 97 Oximetry 10/26/20 10/26/20 10/26/20 02:46 03:00 03:16 Temperature Pulse Rate 103 H 109 H 101 H Pulse Rate [ From Monitor] Respiratory 20 20 20 Rate Blood Pressure 104/62 98/68 107/59 O2 Sat by Pulse 98 97 97 Oximetry 10/26/20 10/26/20 10/26/20 03:30 03:44 03:45 Temperature 99.3 F Pulse Rate 98 H 103 H 97 H Pulse Rate [ From Monitor] Respiratory 20 20 Rate Blood Pressure 115/61 115/61 121/61 O2 Sat by Pulse 97 97 95 Oximetry 10/26/20 10/26/20 10/26/20 04:00 04:15 04:30 Temperature Pulse Rate 99 H 95 H 101 H Pulse Rate [ 89 From Monitor] Respiratory 21 20 21 Rate Blood Pressure 121/61 109/62 118/66 O2 Sat by Pulse 97 96 97 Oximetry 10/26/20 10/26/20 10/26/20 04:45 05:00 05:15 Temperature Pulse Rate 104 H 105 H Pulse Rate [ From Monitor] Respiratory 14 21 Rate Blood Pressure 117/63 117/63 99/49 O2 Sat by Pulse 98 93 93 Oximetry 10/26/20 10/26/20 10/26/20 05:30 05:45 06:00 Temperature Pulse Rate 93 H 105 H 93 H Pulse Rate [ From Monitor] Respiratory 22 20 20 Rate Blood Pressure 98/56 100/59 96/60 O2 Sat by Pulse 94 95 94 Oximetry 10/26/20 10/26/20 10/26/20 06:15 06:30 06:45 Temperature Pulse Rate 112 H 89 104 H Pulse Rate [ From Monitor] Respiratory 21 22 22 Rate Blood Pressure 100/58 103/55 101/57 O2 Sat by Pulse 96 96 96 Oximetry 10/26/20 10/26/20 10/26/20 07:00 07:14 07:15 Temperature 99.2 F Pulse Rate 84 111 H Pulse Rate [ From Monitor] Respiratory 21 19 Rate Blood Pressure 98/57 103/62 O2 Sat by Pulse 96 95 Oximetry 10/26/20 10/26/20 10/26/20 07:25 07:30 07:45 Temperature Pulse Rate 96 H 88 92 H Pulse Rate [ From Monitor] Respiratory 21 22 Rate Blood Pressure 103/62 103/61 103/57 O2 Sat by Pulse 97 96 95 Oximetry 10/26/20 10/26/20 08:00 08:16 Temperature Pulse Rate 94 H 105 H Pulse Rate [ 105 H From Monitor] Respiratory 21 20 Rate Blood Pressure 103/57 92/47 O2 Sat by Pulse 95 97 Oximetry - Lab 10/25/20 08:35 10/26/20 04:30 Most recent lab results ABG pH 7.478 (7.320-7.450) H 10/25/20 15:15 ABG O2 Saturation 73.5 (0-100) 10/25/20 15:15 Calcium 8.1 mg/dL (8.4-10.2) L 10/26/20 04:30 Phosphorus 2.80 mg/dL (2.5-4.5) 10/23/20 05:35 Magnesium 2.10 mg/dL (1.7-2.3) 10/23/20 05:35 Urine Creatinine 144.2 mg/dL (0.1-20.0) H 10/14/20 Unknown Urine Sodium 10 mmol/L 10/14/20 Unknown Urine Total Protein 97 mg/dL (5-11.8) H 10/14/20 Unknown Medications & Allergies - Medications Allergies/Adverse Reactions: Allergies No Known Allergies Allergy (Unverified 10/03/20 12:27) Home Medications: Home Medications Medication Instructions Recorded Confirmed Last Taken Type Unobtainable 10/10/20 10/10/20 Unknown History Active Medications: Generic Name Dose Route Start Last Admin Trade Name Freq PRN Reason Stop Dose Admin Acetaminophen 650 mg 10/03/20 02:10 10/06/20 15:28 Acetaminophen 325 Mg Tab PO 650 mg Q4H PRN Administration Pain MILD(1-3)/Fever >100.5/ROMERO Al Hydrox/Mg Hydrox/Simethicone 30 ml 10/03/20 02:10 Alum-Mag Hydroxide-Simethicone [phone]/5ml Oral Liqd 30 Ml PO Q4H PRN Indigestion Lipase/Protease/Amylase 1 each 10/03/20 16:51 Lipase 10,500/Protease 25,000/Amylase 43,750 (Units) Dr Reis FEEDTUBE PRN PRN For Clogged Feeding Tube Dextrose 50 ml 10/16/20 12:42 10/21/20 17:39 Dextrose 50% In Water (25gm) 50 Ml Syringe IV 50 ml Q30MIN PRN Administration Hypoglycemia Protocol Fentanyl 50 mcg 10/22/20 10:00 Fentanyl 100 Mcg/2 Ml Inj IV Q4HR PRN Pain , Severe (7-10) Ferrous Sulfate 308 mg 10/16/20 10:00 10/26/20 09:19 Ferrous Sulfate 308 Mg (62mg Elemental Iron) / 7 Ml Elixir FEEDTUBE 308 mg DAILY JOSE Administration Folic Acid 1 mg 10/03/20 10:00 10/26/20 09:18 Folic Acid 1 Mg Tab PO 1 mg QDAY JOSE Administration Hydrocortisone Sodium Succinate 50 mg 10/26/20 10:00 10/26/20 09:18 Hydrocortisone Sod Succ 100 Mg/2 Ml Vial IV 10/27/20 10:01 50 mg Q24H JOSE Administration Levetiracetam 250 mg/ Dextrose 102.5 mls @ 400 mls/hr 10/10/20 22:00 10/26/20 09:18 IV 400 mls/hr Q12HR JOSE Administration NORepinephrine/NS 8 MG-250 ML 8 mg in 250 mls @ 3.75 mls/hr 10/16/20 19:00 10/21/20 16:56 Norepinephrine/Ns 8 Mg-250 Ml (Double Conc) IV 0 mcg/min TITRATE JOSE 0 mls/hr Titration Protocol 2 MCG/MIN Magnesium Hydroxide 30 ml 10/03/20 02:10 Magnesium Hydroxide (Mom) Oral Liqd Udc PO Q4H PRN Constipation Midodrine 10 mg 10/24/20 18:00 10/26/20 09:18 Midodrine 5 Mg Tab PO 10 mg Q8H JOSE Administration Pantoprazole Sodium 40 mg 10/04/20 15:00 10/26/20 09:18 Pantoprazole 40 Mg Inj IV 40 mg QDAY JOSE Administration Promethazine HCl 25 mg 10/03/20 02:10 Promethazine 25 Mg Rect Supp TN Q6H PRN N/V IF NPO AND NO IV ACCESS Senna 8.6 mg 10/03/20 02:10 Sennosides 8.6 Mg Tab PO Q12HR PRN Constipation Simple Syrup 15 ml 10/03/20 16:51 10/19/20 02:08 Simple Syrup 15 Ml FEEDTUBE 15 ml PRN PRN Administration Hypoglycemia Simple Syrup 30 ml 10/03/20 16:51 10/16/20 22:02 Simple Syrup 15 Ml FEEDTUBE 30 ml PRN PRN Administration Hypoglycemia Sodium Bicarbonate 325 mg 10/03/20 16:51 Sodium Bicarbonate 325 Mg Tab FEEDTUBE PRN PRN For Clogged Feeding Tube
--- NOTE | 2020-10-26 11:53 | Progress Note ---
Assessment and Plan Acute hypoxemic respiratory failure Bilateral pneumonia Bilateral pleural effusions Bilateral pulmonary edema Acute kidney injury Acute encephalopathy Severe protein calorie malnutrition Oropharyngeal dysphagia Anemia that is microcytic Oropharyngeal dysphagia - hold Midodrine for SBP > 120 mmHg - HD/UF per nephrology prescription for toxin and volume clearancefor vascath followerd by dialysis - continue stress dose steroids - continue care as below otherwise; - vasopressors for MAP > 65 mmHg - VAP bundle addressed (HOB > 40 degrees) - sedation target RASS 0 to -1 - daily SAT's & SBT assessments as tolerated - continue glycemic control withh SSI for target BG 140-180 mg while critically ill; avoid hypoglycema - continue lung protective strategies - bronchodilators with pulmonary hygiene per RT - complete AB's per ID recommendations - avoid nephrotoxins, renally dose all medications - prn analgesia per pain score - Maintenance of sleep-wake cycle, avoid delirium - supportive transfusions for serum Hb < 7.0g/dl - G.I. & VTE prophylaxis - PT/OT/ROM exercises - continue mobility protocols for pressure ulcer prophylaxis - Monitor hemodynamics closely - continue other care per attending / other consultants - discharge planning ongoing concurrently COVID SPECIFIC INTERVENTIONS - COVID-19 test negative .... Re-evaluate in am & prn CONDITION: CRITICAL PROGNOSIS: GUARDED CODE STATUS: FULL CODE The high probability of a clinically significant, sudden or life-threatening deterioration of the [respiratory, cardiovascular, & neurologic] system(s) required my full and direct attention, intervention and personal management. The aggregate critical care time was [32] minutes without overlap. Time includes spent on; [x] Data Review and interpretation [x] Patient assessment and monitoring of vital signs [x] Documentation [x] Medication orders and management Subjective Date of service: 10/26/20 Principal diagnosis: Ac hypoxemic resp failure; Pneumonia; BETSY; Ac. encephalopathy Interval history: Patient is seen today for: Acute hypoxemic respiratory failure; Pneumonia; Pleural effusions; BETSY; Acute encephalopathy; Severe protein calorie malnutrition Seen and examined at bedside; 24hour events reviewed; nursing and respiratory care staff consulted; no adverse overnight events reported to me; resting in bed; remains on MVS; no emesis or overt aspiration; no gross bleeding Objective Vital Signs - 12hr 10/26/20 10/26/20 10/26/20 00:00 00:16 00:30 Temperature 98.1 F Pulse Rate 96 H 92 H 105 H Pulse Rate [ 104 H From Monitor] Respiratory 20 21 22 Rate Blood Pressure 107/53 103/55 85/51 O2 Sat by Pulse 95 92 94 Oximetry O2 Sat by Pulse Oximetry [ Anterior Bilateral Throughout] 10/26/20 10/26/20 10/26/20 00:45 01:00 01:15 Temperature Pulse Rate 106 H 99 H 102 H Pulse Rate [ From Monitor] Respiratory 20 20 21 Rate Blood Pressure 97/49 104/49 88/54 O2 Sat by Pulse 94 95 94 Oximetry O2 Sat by Pulse Oximetry [ Anterior Bilateral Throughout] 10/26/20 10/26/20 10/26/20 01:30 01:45 02:00 Temperature Pulse Rate 96 H 104 H 100 H Pulse Rate [ From Monitor] Respiratory 19 21 19 Rate Blood Pressure 96/50 83/51 90/57 O2 Sat by Pulse 94 94 94 Oximetry O2 Sat by Pulse Oximetry [ Anterior Bilateral Throughout] 10/26/20 10/26/20 10/26/20 02:15 02:30 02:46 Temperature Pulse Rate 101 H 101 H 103 H Pulse Rate [ From Monitor] Respiratory 19 20 20 Rate Blood Pressure 79/55 88/55 104/62 O2 Sat by Pulse 97 97 98 Oximetry O2 Sat by Pulse Oximetry [ Anterior Bilateral Throughout] 10/26/20 10/26/20 10/26/20 03:00 03:16 03:30 Temperature 99.3 F Pulse Rate 109 H 101 H 98 H Pulse Rate [ From Monitor] Respiratory 20 20 20 Rate Blood Pressure 98/68 107/59 115/61 O2 Sat by Pulse 97 97 97 Oximetry O2 Sat by Pulse Oximetry [ Anterior Bilateral Throughout] 10/26/20 10/26/20 10/26/20 03:44 03:45 04:00 Temperature Pulse Rate 103 H 97 H 99 H Pulse Rate [ 89 From Monitor] Respiratory 20 21 Rate Blood Pressure 115/61 121/61 121/61 O2 Sat by Pulse 97 95 97 Oximetry O2 Sat by Pulse Oximetry [ Anterior Bilateral Throughout] 10/26/20 10/26/20 10/26/20 04:15 04:30 04:45 Temperature Pulse Rate 95 H 101 H 104 H Pulse Rate [ From Monitor] Respiratory 20 21 14 Rate Blood Pressure 109/62 118/66 117/63 O2 Sat by Pulse 96 97 98 Oximetry O2 Sat by Pulse Oximetry [ Anterior Bilateral Throughout] 10/26/20 10/26/20 10/26/20 05:00 05:15 05:30 Temperature Pulse Rate 105 H 93 H Pulse Rate [ From Monitor] Respiratory 21 22 Rate Blood Pressure 117/63 99/49 98/56 O2 Sat by Pulse 93 93 94 Oximetry O2 Sat by Pulse Oximetry [ Anterior Bilateral Throughout] 10/26/20 10/26/20 10/26/20 05:45 06:00 06:15 Temperature Pulse Rate 105 H 93 H 112 H Pulse Rate [ From Monitor] Respiratory 20 20 21 Rate Blood Pressure 100/59 96/60 100/58 O2 Sat by Pulse 95 94 96 Oximetry O2 Sat by Pulse Oximetry [ Anterior Bilateral Throughout] 10/26/20 10/26/20 10/26/20 06:30 06:45 07:00 Temperature Pulse Rate 89 104 H 84 Pulse Rate [ From Monitor] Respiratory 22 22 21 Rate Blood Pressure 103/55 101/57 98/57 O2 Sat by Pulse 96 96 96 Oximetry O2 Sat by Pulse Oximetry [ Anterior Bilateral Throughout] 10/26/20 10/26/20 10/26/20 07:14 07:15 07:25 Temperature 99.2 F Pulse Rate 111 H 96 H Pulse Rate [ From Monitor] Respiratory 19 Rate Blood Pressure 103/62 103/62 O2 Sat by Pulse 95 97 Oximetry O2 Sat by Pulse Oximetry [ Anterior Bilateral Throughout] 10/26/20 10/26/20 10/26/20 07:30 07:45 08:00 Temperature Pulse Rate 88 92 H 94 H Pulse Rate [ 105 H From Monitor] Respiratory 21 22 21 Rate Blood Pressure 103/61 103/57 103/57 O2 Sat by Pulse 96 95 95 Oximetry O2 Sat by Pulse Oximetry [ Anterior Bilateral Throughout] 10/26/20 10/26/20 10/26/20 08:16 08:30 08:45 Temperature Pulse Rate 105 H 102 H 101 H Pulse Rate [ From Monitor] Respiratory 20 22 18 Rate Blood Pressure 92/47 101/56 90/48 O2 Sat by Pulse 97 97 97 Oximetry O2 Sat by Pulse Oximetry [ Anterior Bilateral Throughout] 10/26/20 10/26/20 10/26/20 09:00 09:16 09:30 Temperature Pulse Rate 92 H 95 H 98 H Pulse Rate [ From Monitor] Respiratory 19 20 21 Rate Blood Pressure 103/54 78/54 110/57 O2 Sat by Pulse 97 94 96 Oximetry O2 Sat by Pulse Oximetry [ Anterior Bilateral Throughout] 10/26/20 10/26/20 10/26/20 09:37 09:45 09:50 Temperature 98.1 F Pulse Rate 100 H 95 H 94 H Pulse Rate [ From Monitor] Respiratory 21 22 Rate Blood Pressure 109/63 107/65 107/65 O2 Sat by Pulse 97 Oximetry O2 Sat by Pulse 96 Oximetry [ Anterior Bilateral Throughout] 10/26/20 10/26/20 10/26/20 10:00 10:15 10:30 Temperature Pulse Rate 91 H 107 H 94 H Pulse Rate [ From Monitor] Respiratory 22 24 23 Rate Blood Pressure 110/57 97/59 108/59 O2 Sat by Pulse 96 96 95 Oximetry O2 Sat by Pulse Oximetry [ Anterior Bilateral Throughout] 10/26/20 10/26/20 10/26/20 10:45 11:00 11:15 Temperature Pulse Rate 103 H 86 98 H Pulse Rate [ From Monitor] Respiratory 24 24 23 Rate Blood Pressure 99/60 119/63 105/60 O2 Sat by Pulse 95 95 94 Oximetry O2 Sat by Pulse Oximetry [ Anterior Bilateral Throughout] 10/26/20 10/26/20 10/26/20 11:25 11:30 11:43 Temperature 98.1 F Pulse Rate 97 H 92 H Pulse Rate [ From Monitor] Respiratory Rate Blood Pressure 105/60 107/57 O2 Sat by Pulse 89 Oximetry O2 Sat by Pulse Oximetry [ Anterior Bilateral Throughout] 10/26/20 11:45 Temperature Pulse Rate 95 H Pulse Rate [ From Monitor] Respiratory Rate Blood Pressure 93/60 O2 Sat by Pulse Oximetry O2 Sat by Pulse Oximetry [ Anterior Bilateral Throughout] Constitutional: no acute distress, other (elderly and chronically ill looking male with mildly increased respiratory effort at rest on MVS) Eyes: non-icteric ENT: oropharynx dry, other (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) Neck: supple, no lymphadenopathy, no JVD, other (RIJ Vascath) Effort: mildly labored Ascultation: Bilateral: diminished breath sounds, rhonchi Percussion: Bilateral: not dull Cardiovascular: irregular rhythm (irregularly irregular) Gastrointestinal: normoactive bowel sounds Integumentary: normal Extremities: no cyanosis, pulses normal, no ischemia or petechiae, edema (1+) Neurologic: pupils equal and round, unable to assess Psychiatric: other (unable to assess re: AMS) CBC and BMP: 10/31/20 06:45 10/31/20 06:45 ABG, PT/INR, D-dimer: ABG ABG pH 7.478 (7.320-7.450) H 10/25/20 15:15 POC ABG pCO2 39.3 mmHg (32.0-48.0) 10/25/20 15:15 POC ABG pO2 39.0 mmHg (83-108) L 10/25/20 15:15 POC ABG HCO3 28.5 10/25/20 15:15 ABG O2 Saturation 73.5 (0-100) 10/25/20 15:15 PT/INR, D-dimer PT 20.4 Sec. (12.2-14.9) H 10/24/20 05:27 INR 1.70 (0.87-1.13) H 10/24/20 05:27 D-Dimer 1992.93 ng/mlDDU (0-234) H 10/21/20 Unknown Abnormal lab findings: Abnormal Labs 10/02/20 10/02/20 10/02/20 23:17 23:17 23:17 WBC RBC 3.31 L Hgb 6.7 L Hct 21.8 L MCV 66 L MCH 20 L MCHC 31 L RDW 31.7 H Plt Count [place] % (Auto) [place] # (Auto) Seg Neutrophils % Seg Neuts % (Manual) 79.0 H Lymphocytes % (Manual) 11.0 L Monocytes % (Manual) 10.0 H Basophils % (Manual) Nucleated RBC % Seg Neutrophils # Seg Neutrophils # Man Lymphocytes # (Manual) 0.9 L Monocytes # (Manual) Basophils # (Manual) PT 20.8 H INR 1.74 H APTT 57.6 H Fibrinogen D-Dimer ABG pH POC ABG pCO2 POC ABG pO2 ABG Hemoglobin ABG Oxyhemoglobin ABG Sodium ABG Potassium ABG Chloride ABG Glucose Sodium Potassium Chloride Carbon Dioxide BUN Creatinine Glucose 42 L POC Glucose Lactic Acid Calcium Magnesium Iron Total Bilirubin Direct Bilirubin AST ALT Alkaline Phosphatase Ammonia CK-MB (CK-2) 7.5 H CK-MB (CK-2) Rel Index 8.5 H Total Protein Albumin 2.9 L Arterial Blood Glucose Arterial Blood Ionized Calcium Urine Creatinine Urine Total Protein Salicylates Acetaminophen Crossmatch 0810/02/20 10/02/20 23:17 23:17 23:17 WBC RBC Hgb Hct MCV MCH MCHC RDW Plt Count [place] % (Auto) [place] # (Auto) Seg Neutrophils % Seg Neuts % (Manual) Lymphocytes % (Manual) Monocytes % (Manual) Basophils % (Manual) Nucleated RBC % Seg Neutrophils # Seg Neutrophils # Man Lymphocytes # (Manual) Monocytes # (Manual) Basophils # (Manual) PT INR APTT Fibrinogen D-Dimer ABG pH POC ABG pCO2 POC ABG pO2 ABG Hemoglobin ABG Oxyhemoglobin ABG Sodium ABG Potassium ABG Chloride ABG Glucose Sodium Potassium Chloride Carbon Dioxide BUN Creatinine Glucose POC Glucose Lactic Acid 2.20 H* Calcium Magnesium Iron Total Bilirubin Direct Bilirubin AST ALT Alkaline Phosphatase Ammonia 22.0 L CK-MB (CK-2) CK-MB (CK-2) Rel Index Total Protein Albumin Arterial Blood Glucose Arterial Blood Ionized Calcium Urine Creatinine Urine Total Protein Salicylates < 0.3 L Acetaminophen Crossmatch 10/02/20 10/03/20 10/03/20 23:17 05:57 05:57 WBC RBC 2.66 L Hgb 5.3 L* Hct 17.8 L* MCV 67 L MCH 20 L MCHC 30 L RDW 32.1 H Plt Count [place] % (Auto) [place] # (Auto) Seg Neutrophils % Seg Neuts % (Manual) Lymphocytes % (Manual) 2.0 L Monocytes % (Manual) Basophils % (Manual) Nucleated RBC % 1.0 H Seg Neutrophils # Seg Neutrophils # Man 8.6 H Lymphocytes # (Manual) 0.2 L Monocytes # (Manual) Basophils # (Manual) PT INR APTT Fibrinogen D-Dimer ABG pH POC ABG pCO2 POC ABG pO2 ABG Hemoglobin ABG Oxyhemoglobin ABG Sodium ABG Potassium ABG Chloride ABG Glucose Sodium Potassium Chloride Carbon Dioxide BUN Creatinine Glucose POC Glucose Lactic Acid Calcium Magnesium Iron Total Bilirubin Direct Bilirubin AST ALT Alkaline Phosphatase Ammonia CK-MB (CK-2) CK-MB (CK-2) Rel Index Total Protein Albumin Arterial Blood Glucose Arterial Blood Ionized Calcium Urine Creatinine Urine Total Protein Salicylates Acetaminophen 5.0 L Crossmatch See Detail 10/03/20 10/03/20 10/03/20 05:57 05:57 06:00 WBC RBC Hgb Hct MCV MCH MCHC RDW Plt Count [place] % (Auto) [place] # (Auto) Seg Neutrophils % Seg Neuts % (Manual) Lymphocytes % (Manual) Monocytes % (Manual) Basophils % (Manual) Nucleated RBC % Seg Neutrophils # Seg Neutrophils # Man Lymphocytes # (Manual) Monocytes # (Manual) Basophils # (Manual) PT INR APTT Fibrinogen D-Dimer ABG pH POC ABG pCO2 POC ABG pO2 ABG Hemoglobin ABG Oxyhemoglobin ABG Sodium ABG Potassium ABG Chloride ABG Glucose Sodium Potassium Chloride Carbon Dioxide BUN Creatinine Glucose 52 L POC Glucose 31 L Lactic Acid Calcium Magnesium Iron 42 L Total Bilirubin Direct Bilirubin AST ALT Alkaline Phosphatase Ammonia CK-MB (CK-2) CK-MB (CK-2) Rel Index Total Protein 5.8 L Albumin 3.1 L Arterial Blood Glucose Arterial Blood Ionized Calcium Urine Creatinine Urine Total Protein Salicylates Acetaminophen Crossmatch 10/03/20 10/03/20 10/03/20 07:34 09:43 10:57 WBC RBC Hgb Hct MCV MCH MCHC RDW Plt Count [place] % (Auto) [place] # (Auto) Seg Neutrophils % Seg Neuts % (Manual) Lymphocytes % (Manual) Monocytes % (Manual) Basophils % (Manual) Nucleated RBC % Seg Neutrophils # Seg Neutrophils # Man Lymphocytes # (Manual) Monocytes # (Manual) Basophils # (Manual) PT INR APTT Fibrinogen D-Dimer ABG pH POC ABG pCO2 POC ABG pO2 ABG Hemoglobin ABG Oxyhemoglobin ABG Sodium ABG Potassium ABG Chloride ABG Glucose Sodium Potassium Chloride Carbon Dioxide BUN Creatinine Glucose POC Glucose 59 L 41 L 31 L Lactic Acid Calcium Magnesium Iron Total Bilirubin Direct Bilirubin AST ALT Alkaline Phosphatase Ammonia CK-MB (CK-2) CK-MB (CK-2) Rel Index Total Protein Albumin Arterial Blood Glucose Arterial Blood Ionized Calcium Urine Creatinine Urine Total Protein Salicylates Acetaminophen Crossmatch 10/03/20 10/03/20 10/03/20 11:21 12:00 12:14 WBC RBC Hgb Hct MCV MCH MCHC RDW Plt Count [place] % (Auto) [place] # (Auto) Seg Neutrophils % Seg Neuts % (Manual) Lymphocytes % (Manual) Monocytes % (Manual) Basophils % (Manual) Nucleated RBC % Seg Neutrophils # Seg Neutrophils # Man Lymphocytes # (Manual) Monocytes # (Manual) Basophils # (Manual) PT INR APTT Fibrinogen D-Dimer ABG pH POC ABG pCO2 POC ABG pO2 ABG Hemoglobin ABG Oxyhemoglobin ABG Sodium ABG Potassium ABG Chloride ABG Glucose Sodium Potassium Chloride Carbon Dioxide BUN Creatinine Glucose POC Glucose 62 L 26 L 140 H Lactic Acid Calcium Magnesium Iron Total Bilirubin Direct Bilirubin AST ALT Alkaline Phosphatase Ammonia CK-MB (CK-2) CK-MB (CK-2) Rel Index Total Protein Albumin Arterial Blood Glucose Arterial Blood Ionized Calcium Urine Creatinine Urine Total Protein Salicylates Acetaminophen Crossmatch 10/03/20 10/03/20 10/03/20 13:33 14:19 14:59 WBC RBC Hgb Hct MCV MCH MCHC RDW Plt Count [place] % (Auto) [place] # (Auto) Seg Neutrophils % Seg Neuts % (Manual) Lymphocytes % (Manual) Monocytes % (Manual) Basophils % (Manual) Nucleated RBC % Seg Neutrophils # Seg Neutrophils # Man Lymphocytes # (Manual) Monocytes # (Manual) Basophils # (Manual) PT INR APTT Fibrinogen D-Dimer ABG pH POC ABG pCO2 POC ABG pO2 ABG Hemoglobin ABG Oxyhemoglobin ABG Sodium ABG Potassium ABG Chloride ABG Glucose Sodium Potassium Chloride Carbon Dioxide BUN Creatinine Glucose POC Glucose 24 L 59 L 40 L Lactic Acid Calcium Magnesium Iron Total Bilirubin Direct Bilirubin AST ALT Alkaline Phosphatase Ammonia CK-MB (CK-2) CK-MB (CK-2) Rel Index Total Protein Albumin Arterial Blood Glucose Arterial Blood Ionized Calcium Urine Creatinine Urine Total Protein Salicylates Acetaminophen Crossmatch 10/03/20 10/03/20 10/03/20 15:26 15:57 16:35 WBC RBC Hgb Hct MCV MCH MCHC RDW Plt Count [place] % (Auto) [place] # (Auto) Seg Neutrophils % Seg Neuts % (Manual) Lymphocytes % (Manual) Monocytes % (Manual) Basophils % (Manual) Nucleated RBC % Seg Neutrophils # Seg Neutrophils # Man Lymphocytes # (Manual) Monocytes # (Manual) Basophils # (Manual) PT INR APTT Fibrinogen D-Dimer ABG pH POC ABG pCO2 POC ABG pO2 ABG Hemoglobin ABG Oxyhemoglobin ABG Sodium ABG Potassium ABG Chloride ABG Glucose Sodium Potassium Chloride Carbon Dioxide BUN Creatinine Glucose POC Glucose 54 L 45 L 42 L Lactic Acid Calcium Magnesium Iron Total Bilirubin Direct Bilirubin AST ALT Alkaline Phosphatase Ammonia CK-MB (CK-2) CK-MB (CK-2) Rel Index Total Protein Albumin Arterial Blood Glucose Arterial Blood Ionized Calcium Urine Creatinine Urine Total Protein Salicylates Acetaminophen Crossmatch 10/03/20 10/03/2010/03/21 17:16 18:37 19:56 WBC RBC Hgb Hct MCV MCH MCHC RDW Plt Count [place] % (Auto) [place] # (Auto) Seg Neutrophils % Seg Neuts % (Manual) Lymphocytes % (Manual) Monocytes % (Manual) Basophils % (Manual) Nucleated RBC % Seg Neutrophils # Seg Neutrophils # Man Lymphocytes # (Manual) Monocytes # (Manual) Basophils # (Manual) PT INR APTT Fibrinogen D-Dimer ABG pH POC ABG pCO2 POC ABG pO2 ABG Hemoglobin ABG Oxyhemoglobin ABG Sodium ABG Potassium ABG Chloride ABG Glucose Sodium Potassium Chloride Carbon Dioxide BUN Creatinine Glucose POC Glucose 41 L 46 L 57 L Lactic Acid Calcium Magnesium Iron Total Bilirubin Direct Bilirubin AST ALT Alkaline Phosphatase Ammonia CK-MB (CK-2) CK-MB (CK-2) Rel Index Total Protein Albumin Arterial Blood Glucose Arterial Blood Ionized Calcium Urine Creatinine Urine Total Protein Salicylates Acetaminophen Crossmatch 10/03/20 10/04/20 10/04/20 21:32 01:04 01:11 WBC RBC Hgb 9.6 L D Hct 28.3 L D MCV MCH MCHC RDW Plt Count [place] % (Auto) [place] # (Auto) Seg Neutrophils % Seg Neuts % (Manual) Lymphocytes % (Manual) Monocytes % (Manual) Basophils % (Manual) Nucleated RBC % Seg Neutrophils # Seg Neutrophils # Man Lymphocytes # (Manual) Monocytes # (Manual) Basophils # (Manual) PT INR APTT Fibrinogen D-Dimer ABG pH POC ABG pCO2 POC ABG pO2 ABG Hemoglobin ABG Oxyhemoglobin ABG Sodium ABG Potassium ABG Chloride ABG Glucose Sodium Potassium Chloride Carbon Dioxide BUN Creatinine Glucose POC Glucose 65 L 51 L Lactic Acid Calcium Magnesium Iron Total Bilirubin Direct Bilirubin AST ALT Alkaline Phosphatase Ammonia CK-MB (CK-2) CK-MB (CK-2) Rel Index Total Protein Albumin Arterial Blood Glucose Arterial Blood Ionized Calcium Urine Creatinine Urine Total Protein Salicylates Acetaminophen Crossmatch 10/04/20 10/04/20 10/04/20 05:59 05:59 15:10 WBC 13.4 H RBC Hgb 9.9 L 10.1 L Hct 32.0 L 31.8 L MCV 76 L MCH 24 L MCHC 31 L RDW 31.3 H Plt Count [place] % (Auto) [place] # (Auto) Seg Neutrophils % Seg Neuts % (Manual) 86.0 H Lymphocytes % (Manual) 6.0 L Monocytes % (Manual) 8.0 H Basophils % (Manual) Nucleated RBC % 2.0 H Seg Neutrophils # Seg Neutrophils # Man 11.5 H Lymphocytes # (Manual) 0.8 L Monocytes # (Manual) 1.1 H Basophils # (Manual) PT INR APTT Fibrinogen D-Dimer ABG pH POC ABG pCO2 POC ABG pO2 ABG Hemoglobin ABG Oxyhemoglobin ABG Sodium ABG Potassium ABG Chloride ABG Glucose Sodium 136 L Potassium 3.5 L Chloride Carbon Dioxide 19 L D BUN Creatinine Glucose POC Glucose Lactic Acid Calcium Magnesium Iron Total Bilirubin Direct Bilirubin AST ALT Alkaline Phosphatase Ammonia CK-MB (CK-2) CK-MB (CK-2) Rel Index Total Protein Albumin 2.6 L Arterial Blood Glucose Arterial Blood Ionized Calcium Urine Creatinine Urine Total Protein Salicylates Acetaminophen Crossmatch 10/04/20 10/04/20 10/05/20 16:28 22:33 04:43 WBC RBC Hgb 10.5 L Hct 32.5 L MCV MCH MCHC RDW Plt Count [place] % (Auto) [place] # (Auto) Seg Neutrophils % Seg Neuts % (Manual) Lymphocytes % (Manual) Monocytes % (Manual) Basophils % (Manual) Nucleated RBC % Seg Neutrophils # Seg Neutrophils # Man Lymphocytes # (Manual) Monocytes # (Manual) Basophils # (Manual) PT INR APTT Fibrinogen D-Dimer ABG pH POC ABG pCO2 POC ABG pO2 ABG Hemoglobin ABG Oxyhemoglobin ABG Sodium ABG Potassium ABG Chloride ABG Glucose Sodium Potassium Chloride Carbon Dioxide BUN Creatinine Glucose POC Glucose 66 L 113 H Lactic Acid Calcium Magnesium Iron Total Bilirubin Direct Bilirubin AST ALT Alkaline Phosphatase Ammonia CK-MB (CK-2) CK-MB (CK-2) Rel Index Total Protein Albumin Arterial Blood Glucose Arterial Blood Ionized Calcium Urine Creatinine Urine Total Protein Salicylates Acetaminophen Crossmatch 10/05/20 10/05/20 10/05/20 05:00 09:42 11:57 WBC RBC Hgb 9.8 L Hct 30.5 L MCV 74 L MCH 24 L MCHC RDW 31.6 H Plt Count [place] % (Auto) [place] # (Auto) Seg Neutrophils % Seg Neuts % (Manual) Lymphocytes % (Manual) Monocytes % (Manual) Basophils % (Manual) Nucleated RBC % Seg Neutrophils # Seg Neutrophils # Man Lymphocytes # (Manual) Monocytes # (Manual) Basophils # (Manual) PT INR APTT Fibrinogen D-Dimer ABG pH POC ABG pCO2 POC ABG pO2 ABG Hemoglobin ABG Oxyhemoglobin ABG Sodium ABG Potassium ABG Chloride ABG Glucose Sodium 132 L Potassium 3.5 L Chloride Carbon Dioxide 19 L BUN Creatinine 0.7 L Glucose POC Glucose 129 H Lactic Acid Calcium Magnesium Iron Total Bilirubin Direct Bilirubin AST ALT Alkaline Phosphatase Ammonia CK-MB (CK-2) CK-MB (CK-2) Rel Index Total Protein Albumin Arterial Blood Glucose Arterial Blood Ionized Calcium Urine Creatinine Urine Total Protein Salicylates Acetaminophen Crossmatch 10/05/20 10/05/20 10/06/20 16:47 21:51 05:07 WBC RBC Hgb 9.4 L Hct 30.1 L MCV 76 L MCH 24 L MCHC 31 L RDW 31.1 H Plt Count [place] % (Auto) [place] # (Auto) Seg Neutrophils % Seg Neuts % (Manual) Lymphocytes % (Manual) Monocytes % (Manual) Basophils % (Manual) Nucleated RBC % Seg Neutrophils # Seg Neutrophils # Man Lymphocytes # (Manual) Monocytes # (Manual) Basophils # (Manual) PT INR APTT Fibrinogen D-Dimer ABG pH POC ABG pCO2 POC ABG pO2 ABG Hemoglobin ABG Oxyhemoglobin ABG Sodium ABG Potassium ABG Chloride ABG Glucose Sodium Potassium Chloride Carbon Dioxide BUN Creatinine Glucose POC Glucose 132 H 115 H Lactic Acid Calcium Magnesium Iron Total Bilirubin Direct Bilirubin AST ALT Alkaline Phosphatase Ammonia CK-MB (CK-2) CK-MB (CK-2) Rel Index Total Protein Albumin Arterial Blood Glucose Arterial Blood Ionized Calcium Urine Creatinine Urine Total Protein Salicylates Acetaminophen Crossmatch 10/06/20 10/06/20 10/06/20 05:07 15:37 21:01 WBC RBC Hgb Hct MCV MCH MCHC RDW Plt Count [place] % (Auto) [place] # (Auto) Seg Neutrophils % Seg Neuts % (Manual) Lymphocytes % (Manual) Monocytes % (Manual) Basophils % (Manual) Nucleated RBC % Seg Neutrophils # Seg Neutrophils # Man Lymphocytes # (Manual) Monocytes # (Manual) Basophils # (Manual) PT INR APTT Fibrinogen D-Dimer ABG pH POC ABG pCO2 POC ABG pO2 ABG Hemoglobin ABG Oxyhemoglobin ABG Sodium ABG Potassium ABG Chloride ABG Glucose Sodium 133 L Potassium 3.5 L Chloride Carbon Dioxide 21 L BUN Creatinine 0.6 L Glucose 105 H POC Glucose 136 H 108 H Lactic Acid Calcium Magnesium Iron Total Bilirubin Direct Bilirubin AST ALT Alkaline Phosphatase Ammonia CK-MB (CK-2) CK-MB (CK-2) Rel Index Total Protein Albumin Arterial Blood Glucose Arterial Blood Ionized Calcium Urine Creatinine Urine Total Protein Salicylates Acetaminophen Crossmatch 10/07/20 10/07/20 10/07/20 04:52 04:52 06:07 WBC RBC Hgb 9.6 L Hct 29.4 L MCV 73 L MCH 24 L MCHC RDW 32.2 H Plt Count [place] % (Auto) [place] # (Auto) Seg Neutrophils % Seg Neuts % (Manual) Lymphocytes % (Manual) Monocytes % (Manual) Basophils % (Manual) Nucleated RBC % Seg Neutrophils # Seg Neutrophils # Man Lymphocytes # (Manual) Monocytes # (Manual) Basophils # (Manual) PT INR APTT Fibrinogen D-Dimer ABG pH POC ABG pCO2 POC ABG pO2 ABG Hemoglobin ABG Oxyhemoglobin ABG Sodium ABG Potassium ABG Chloride ABG Glucose Sodium 128 L Potassium Chloride Carbon Dioxide 20 L BUN Creatinine 0.7 L Glucose POC Glucose 110 H Lactic Acid Calcium Magnesium Iron Total Bilirubin Direct Bilirubin AST ALT Alkaline Phosphatase Ammonia CK-MB (CK-2) CK-MB (CK-2) Rel Index Total Protein Albumin Arterial Blood Glucose Arterial Blood Ionized Calcium Urine Creatinine Urine Total Protein Salicylates Acetaminophen Crossmatch 10/07/20 10/07/20 10/07/20 17:09 18:53 20:35 WBC RBC Hgb Hct MCV MCH MCHC RDW Plt Count [place] % (Auto) [place] # (Auto) Seg Neutrophils % Seg Neuts % (Manual) Lymphocytes % (Manual) Monocytes % (Manual) Basophils % (Manual) Nucleated RBC % Seg Neutrophils # Seg Neutrophils # Man Lymphocytes # (Manual) Monocytes # (Manual) Basophils # (Manual) PT INR APTT Fibrinogen D-Dimer ABG pH POC ABG pCO2 POC ABG pO2 ABG Hemoglobin ABG Oxyhemoglobin ABG Sodium ABG Potassium ABG Chloride ABG Glucose Sodium Potassium Chloride Carbon Dioxide BUN Creatinine Glucose POC Glucose 67 L 66 L 62 L Lactic Acid Calcium Magnesium Iron Total Bilirubin Direct Bilirubin AST ALT Alkaline Phosphatase Ammonia CK-MB (CK-2) CK-MB (CK-2) Rel Index Total Protein Albumin Arterial Blood Glucose Arterial Blood Ionized Calcium Urine Creatinine Urine Total Protein Salicylates Acetaminophen Crossmatch 10/07/20 10/08/20 10/08/20 21:55 05:00 05:00 WBC RBC Hgb 9.6 L Hct 29.4 L MCV 73 L MCH 24 L MCHC RDW 32.4 H Plt Count [place] % (Auto) [place] # (Auto) Seg Neutrophils % 80.6 H Seg Neuts % (Manual) 88.0 H Lymphocytes % (Manual) 9.0 L Monocytes % (Manual) Basophils % (Manual) Nucleated RBC % 5.0 H Seg Neutrophils # Seg Neutrophils # Man Lymphocytes # (Manual) 0.5 L Monocytes # (Manual) Basophils # (Manual) PT INR APTT Fibrinogen D-Dimer ABG pH POC ABG pCO2 POC ABG pO2 ABG Hemoglobin ABG Oxyhemoglobin ABG Sodium ABG Potassium ABG Chloride ABG Glucose Sodium 126 L Potassium Chloride 96.3 L Carbon Dioxide BUN Creatinine 0.7 L Glucose POC Glucose 132 H Lactic Acid Calcium Magnesium Iron Total Bilirubin Direct Bilirubin AST ALT Alkaline Phosphatase Ammonia CK-MB (CK-2) CK-MB (CK-2) Rel Index Total Protein Albumin Arterial Blood Glucose Arterial Blood Ionized Calcium Urine Creatinine Urine Total Protein Salicylates Acetaminophen Crossmatch 10/08/20 10/09/20 10/09/20 22:26 01:36 02:22 WBC RBC Hgb Hct MCV MCH MCHC RDW Plt Count [place] % (Auto) [place] # (Auto) Seg Neutrophils % Seg Neuts % (Manual) Lymphocytes % (Manual) Monocytes % (Manual) Basophils % (Manual) Nucleated RBC % Seg Neutrophils # Seg Neutrophils # Man Lymphocytes # (Manual) Monocytes # (Manual) Basophils # (Manual) PT INR APTT Fibrinogen D-Dimer ABG pH POC ABG pCO2 POC ABG pO2 ABG Hemoglobin ABG Oxyhemoglobin ABG Sodium ABG Potassium ABG Chloride ABG Glucose Sodium Potassium Chloride Carbon Dioxide BUN Creatinine Glucose POC Glucose 63 L 62 L 151 H Lactic Acid Calcium Magnesium Iron Total Bilirubin Direct Bilirubin AST ALT Alkaline Phosphatase Ammonia CK-MB (CK-2) CK-MB (CK-2) Rel Index Total Protein Albumin Arterial Blood Glucose Arterial Blood Ionized Calcium Urine Creatinine Urine Total Protein Salicylates Acetaminophen Crossmatch 10/09/20 10/09/20 10/09/20 05:07 05:42 06:32 WBC RBC Hgb 10.3 L Hct 33.8 L MCV 77 L MCH 24 L MCHC 31 L RDW 33.6 H Plt Count 137 L [place] % (Auto) [place] # (Auto) Seg Neutrophils % Seg Neuts % (Manual) 89.0 H Lymphocytes % (Manual) 5.0 L Monocytes % (Manual) Basophils % (Manual) Nucleated RBC % 4.0 H Seg Neutrophils # Seg Neutrophils # Man 9.4 H Lymphocytes # (Manual) 0.5 L Monocytes # (Manual) Basophils # (Manual) PT INR APTT Fibrinogen D-Dimer ABG pH POC ABG pCO2 POC ABG pO2 ABG Hemoglobin ABG Oxyhemoglobin ABG Sodium ABG Potassium ABG Chloride ABG Glucose Sodium 126 L Potassium Chloride 97.8 L Carbon Dioxide 20 L BUN Creatinine Glucose 58 L POC Glucose 48 L Lactic Acid Calcium Magnesium Iron Total Bilirubin Direct Bilirubin AST ALT Alkaline Phosphatase Ammonia CK-MB (CK-2) CK-MB (CK-2) Rel Index Total Protein Albumin Arterial Blood Glucose Arterial Blood Ionized Calcium Urine Creatinine Urine Total Protein Salicylates Acetaminophen Crossmatch 10/09/20 10/10/20 10/10/20 06:35 00:21 05:53 WBC RBC Hgb Hct MCV MCH MCHC RDW Plt Count [place] % (Auto) [place] # (Auto) Seg Neutrophils % Seg Neuts % (Manual) Lymphocytes % (Manual) Monocytes % (Manual) Basophils % (Manual) Nucleated RBC % Seg Neutrophils # Seg Neutrophils # Man Lymphocytes # (Manual) Monocytes # (Manual) Basophils # (Manual) PT INR APTT Fibrinogen D-Dimer ABG pH POC ABG pCO2 POC ABG pO2 ABG Hemoglobin ABG Oxyhemoglobin ABG Sodium ABG Potassium ABG Chloride ABG Glucose Sodium Potassium Chloride Carbon Dioxide BUN Creatinine Glucose POC Glucose 106 H 153 H 34 L Lactic Acid Calcium Magnesium Iron Total Bilirubin Direct Bilirubin AST ALT Alkaline Phosphatase Ammonia CK-MB (CK-2) CK-MB (CK-2) Rel Index Total Protein Albumin Arterial Blood Glucose Arterial Blood Ionized Calcium Urine Creatinine Urine Total Protein Salicylates Acetaminophen Crossmatch 10/10/20 10/10/20 10/10/20 10:58 10:58 12:39 WBC RBC Hgb 10.3 L Hct 33.9 L MCV 78 L MCH 24 L MCHC 30 L RDW 33.2 H Plt Count 135 L [place] % (Auto) [place] # (Auto) Seg Neutrophils % Seg Neuts % (Manual) 74.0 H Lymphocytes % (Manual) 12.0 L Monocytes % (Manual) 9.0 H Basophils % (Manual) 2.0 H Nucleated RBC % Seg Neutrophils # Seg Neutrophils # Man Lymphocytes # (Manual) 1.0 L Monocytes # (Manual) Basophils # (Manual) 0.2 H PT INR APTT Fibrinogen D-Dimer ABG pH POC ABG pCO2 POC ABG pO2 ABG Hemoglobin ABG Oxyhemoglobin ABG Sodium ABG Potassium ABG Chloride ABG Glucose Sodium 127 L Potassium Chloride Carbon Dioxide 20 L BUN 23 H Creatinine Glucose POC Glucose 108 H Lactic Acid Calcium Magnesium Iron Total Bilirubin Direct Bilirubin AST ALT Alkaline Phosphatase Ammonia CK-MB (CK-2) CK-MB (CK-2) Rel Index Total Protein Albumin Arterial Blood Glucose Arterial Blood Ionized Calcium Urine Creatinine Urine Total Protein Salicylates Acetaminophen Crossmatch 10/10/20 10/11/20 10/11/20 16:51 04:56 05:51 WBC RBC Hgb 9.5 L Hct 31.3 L MCV 77 L MCH 23 L MCHC 30 L RDW 33.7 H Plt Count [place] % (Auto) [place] # (Auto) Seg Neutrophils % Seg Neuts % (Manual) 95.0 H Lymphocytes % (Manual) 2.0 L Monocytes % (Manual) Basophils % (Manual) Nucleated RBC % 3.0 H Seg Neutrophils # Seg Neutrophils # Man 8.0 H Lymphocytes # (Manual) 0.2 L Monocytes # (Manual) Basophils # (Manual) PT INR APTT Fibrinogen D-Dimer ABG pH POC ABG pCO2 POC ABG pO2 ABG Hemoglobin ABG Oxyhemoglobin ABG Sodium ABG Potassium ABG Chloride ABG Glucose Sodium Potassium Chloride Carbon Dioxide BUN Creatinine Glucose POC Glucose 142 H 124 H Lactic Acid Calcium Magnesium Iron Total Bilirubin Direct Bilirubin AST ALT Alkaline Phosphatase Ammonia CK-MB (CK-2) CK-MB (CK-2) Rel Index Total Protein Albumin Arterial Blood Glucose Arterial Blood Ionized Calcium Urine Creatinine Urine Total Protein Salicylates Acetaminophen Crossmatch 10/11/20 10/11/20 10/12/20 05:51 11:56 04:53 WBC RBC Hgb 9.5 L Hct 30.0 L MCV 75 L MCH 24 L MCHC RDW 32.8 H Plt Count 136 L [place] % (Auto) [place] # (Auto) Seg Neutrophils % Seg Neuts % (Manual) 89.0 H Lymphocytes % (Manual) 5.0 L Monocytes % (Manual) Basophils % (Manual) Nucleated RBC % Seg Neutrophils # Seg Neutrophils # Man Lymphocytes # (Manual) 0.4 L Monocytes # (Manual) Basophils # (Manual) PT INR APTT Fibrinogen D-Dimer ABG pH POC ABG pCO2 POC ABG pO2 ABG Hemoglobin ABG Oxyhemoglobin ABG Sodium ABG Potassium ABG Chloride ABG Glucose Sodium 130 L Potassium Chloride Carbon Dioxide 18 L BUN 23 H Creatinine Glucose POC Glucose 126 H Lactic Acid Calcium Magnesium Iron Total Bilirubin Direct Bilirubin AST ALT Alkaline Phosphatase Ammonia CK-MB (CK-2) CK-MB (CK-2) Rel Index Total Protein Albumin Arterial Blood Glucose Arterial Blood Ionized Calcium Urine Creatinine Urine Total Protein Salicylates Acetaminophen Crossmatch 10/12/20 10/12/20 10/12/20 04:53 11:42 23:49 WBC RBC Hgb Hct MCV MCH MCHC RDW Plt Count [place] % (Auto) [place] # (Auto) Seg Neutrophils % Seg Neuts % (Manual) Lymphocytes % (Manual) Monocytes % (Manual) Basophils % (Manual) Nucleated RBC % Seg Neutrophils # Seg Neutrophils # Man Lymphocytes # (Manual) Monocytes # (Manual) Basophils # (Manual) PT INR APTT Fibrinogen D-Dimer ABG pH POC ABG pCO2 POC ABG pO2 ABG Hemoglobin ABG Oxyhemoglobin ABG Sodium ABG Potassium ABG Chloride ABG Glucose Sodium 130 L Potassium Chloride Carbon Dioxide 18 L BUN 25 H Creatinine Glucose 74 L POC Glucose 59 L 51 L Lactic Acid Calcium Magnesium Iron Total Bilirubin Direct Bilirubin AST ALT Alkaline Phosphatase Ammonia CK-MB (CK-2) CK-MB (CK-2) Rel Index Total Protein Albumin Arterial Blood Glucose Arterial Blood Ionized Calcium Urine Creatinine Urine Total Protein Salicylates Acetaminophen Crossmatch 10/13/20 10/13/20 10/13/20 03:17 05:24 05:24 WBC RBC Hgb 9.4 L Hct 29.4 L MCV 75 L MCH 24 L MCHC RDW 32.9 H Plt Count 95 L [place] % (Auto) [place] # (Auto) Seg Neutrophils % Seg Neuts % (Manual) 90.0 H Lymphocytes % (Manual) Monocytes % (Manual) Basophils % (Manual) Nucleated RBC % 2.0 H Seg Neutrophils # Seg Neutrophils # Man 9.5 H Lymphocytes # (Manual) 0.0 L Monocytes # (Manual) Basophils # (Manual) PT INR APTT Fibrinogen D-Dimer ABG pH POC ABG pCO2 POC ABG pO2 ABG Hemoglobin ABG Oxyhemoglobin ABG Sodium ABG Potassium ABG Chloride ABG Glucose Sodium 132 L Potassium Chloride Carbon Dioxide 17 L BUN 26 H Creatinine 1.6 H Glucose POC Glucose 67 L Lactic Acid Calcium Magnesium Iron Total Bilirubin Direct Bilirubin AST ALT Alkaline Phosphatase Ammonia CK-MB (CK-2) CK-MB (CK-2) Rel Index Total Protein Albumin Arterial Blood Glucose Arterial Blood Ionized Calcium Urine Creatinine Urine Total Protein Salicylates Acetaminophen Crossmatch 10/13/20 10/14/20 10/14/20 11:36 05:04 05:04 WBC 17.4 H RBC Hgb 9.3 L Hct 29.3 L MCV 76 L MCH 24 L MCHC RDW 33.8 H Plt Count 83 L [place] % (Auto) [place] # (Auto) Seg Neutrophils % Seg Neuts % (Manual) 89.0 H Lymphocytes % (Manual) 4.0 L Monocytes % (Manual) Basophils % (Manual) Nucleated RBC % 1.0 H Seg Neutrophils # Seg Neutrophils # Man 15.5 H Lymphocytes # (Manual) 0.7 L Monocytes # (Manual) Basophils # (Manual) PT INR APTT Fibrinogen D-Dimer ABG pH POC ABG pCO2 POC ABG pO2 ABG Hemoglobin ABG Oxyhemoglobin ABG Sodium ABG Potassium ABG Chloride ABG Glucose Sodium 132 L Potassium 5.3 H Chloride 108.7 H Carbon Dioxide 15 L BUN 25 H Creatinine 1.5 H Glucose POC Glucose 58 L Lactic Acid Calcium Magnesium Iron Total Bilirubin Direct Bilirubin AST ALT Alkaline Phosphatase Ammonia CK-MB (CK-2) CK-MB (CK-2) Rel Index Total Protein Albumin Arterial Blood Glucose Arterial Blood Ionized Calcium Urine Creatinine Urine Total Protein Salicylates Acetaminophen Crossmatch 10/14/20 10/14/20 10/14/20 05:41 08:19 15:34 WBC RBC Hgb Hct MCV MCH MCHC RDW Plt Count [place] % (Auto) [place] # (Auto) Seg Neutrophils % Seg Neuts % (Manual) Lymphocytes % (Manual) Monocytes % (Manual) Basophils % (Manual) Nucleated RBC % Seg Neutrophils # Seg Neutrophils # Man Lymphocytes # (Manual) Monocytes # (Manual) Basophils # (Manual) PT INR APTT Fibrinogen D-Dimer ABG pH POC ABG pCO2 POC ABG pO2 ABG Hemoglobin ABG Oxyhemoglobin ABG Sodium ABG Potassium ABG Chloride ABG Glucose Sodium 134 L Potassium 5.2 H Chloride 111.1 H Carbon Dioxide 16 L BUN 25 H Creatinine 1.5 H Glucose POC Glucose 58 L 120 H Lactic Acid Calcium Magnesium Iron Total Bilirubin Direct Bilirubin AST ALT Alkaline Phosphatase Ammonia CK-MB (CK-2) CK-MB (CK-2) Rel Index Total Protein Albumin Arterial Blood Glucose Arterial Blood Ionized Calcium Urine Creatinine Urine Total Protein Salicylates Acetaminophen Crossmatch 10/14/20 10/15/20 10/15/20 Unknown 05:50 05:50 WBC 14.1 H RBC Hgb 9.4 L Hct 29.9 L MCV 76 L MCH 24 L MCHC 31 L RDW 34.2 H Plt Count 86 L [place] % (Auto) 8.3 H [place] # (Auto) 1.3 H Seg Neutrophils % 86.5 H Seg Neuts % (Manual) Lymphocytes % (Manual) 9.0 L Monocytes % (Manual) Basophils % (Manual) Nucleated RBC % 6.0 H Seg Neutrophils # 13.2 H Seg Neutrophils # Man 9.7 H Lymphocytes # (Manual) Monocytes # (Manual) Basophils # (Manual) PT INR APTT Fibrinogen D-Dimer ABG pH POC ABG pCO2 POC ABG pO2 ABG Hemoglobin ABG Oxyhemoglobin ABG Sodium ABG Potassium ABG Chloride ABG Glucose Sodium 134 L Potassium Chloride 109.9 H Carbon Dioxide 18 L BUN 26 H Creatinine 1.5 H Glucose 125 H POC Glucose Lactic Acid Calcium Magnesium Iron Total Bilirubin Direct Bilirubin AST ALT Alkaline Phosphatase Ammonia CK-MB (CK-2) CK-MB (CK-2) Rel Index Total Protein Albumin Arterial Blood Glucose Arterial Blood Ionized Calcium Urine Creatinine 144.2 H Urine Total Protein 97 H Salicylates Acetaminophen Crossmatch 10/15/20 10/15/20 10/15/20 05:55 07:36 07:59 WBC RBC Hgb Hct MCV MCH MCHC RDW Plt Count [place] % (Auto) [place] # (Auto) Seg Neutrophils % Seg Neuts % (Manual) Lymphocytes % (Manual) Monocytes % (Manual) Basophils % (Manual) Nucleated RBC % Seg Neutrophils # Seg Neutrophils # Man Lymphocytes # (Manual) Monocytes # (Manual) Basophils # (Manual) PT INR APTT Fibrinogen D-Dimer ABG pH 7.052 L POC ABG pCO2 65.0 H POC ABG pO2 214.1 H ABG Hemoglobin 10.6 L ABG Oxyhemoglobin 98.3 H ABG Sodium 130.6 L ABG Potassium ABG Chloride 110.0 H ABG Glucose 124 H Sodium Potassium Chloride Carbon Dioxide BUN Creatinine Glucose POC Glucose 113 H 114 H Lactic Acid Calcium Magnesium Iron Total Bilirubin Direct Bilirubin AST ALT Alkaline Phosphatase Ammonia CK-MB (CK-2) CK-MB (CK-2) Rel Index Total Protein Albumin Arterial Blood Glucose 124 H Arterial Blood Ionized Calcium Urine Creatinine Urine Total Protein Salicylates Acetaminophen Crossmatch 10/15/20 10/15/20 10/15/20 10:50 11:27 13:56 WBC RBC Hgb Hct MCV MCH MCHC RDW Plt Count [place] % (Auto) [place] # (Auto) Seg Neutrophils % Seg Neuts % (Manual) Lymphocytes % (Manual) Monocytes % (Manual) Basophils % (Manual) Nucleated RBC % Seg Neutrophils # Seg Neutrophils # Man Lymphocytes # (Manual) Monocytes # (Manual) Basophils # (Manual) PT INR APTT Fibrinogen D-Dimer ABG pH 7.200 L POC ABG pCO2 POC ABG pO2 123.1 H ABG Hemoglobin ABG Oxyhemoglobin ABG Sodium 131.3 L ABG Potassium 4.6 H ABG Chloride 112.0 H ABG Glucose 42 L Sodium Potassium Chloride Carbon Dioxide BUN Creatinine Glucose POC Glucose 50 L 476 H Lactic Acid Calcium Magnesium Iron Total Bilirubin Direct Bilirubin AST ALT Alkaline Phosphatase Ammonia CK-MB (CK-2) CK-MB (CK-2) Rel Index Total Protein Albumin Arterial Blood Glucose 42 L Arterial Blood Ionized Calcium Urine Creatinine Urine Total Protein Salicylates Acetaminophen Crossmatch 10/15/20 10/15/20 10/16/20 16:46 17:01 00:45 WBC RBC Hgb Hct MCV MCH MCHC RDW Plt Count [place] % (Auto) [place] # (Auto) Seg Neutrophils % Seg Neuts % (Manual) Lymphocytes % (Manual) Monocytes % (Manual) Basophils % (Manual) Nucleated RBC % Seg Neutrophils # Seg Neutrophils # Man Lymphocytes # (Manual) Monocytes # (Manual) Basophils # (Manual) PT INR APTT Fibrinogen D-Dimer ABG pH 7.250 L POC ABG pCO2 POC ABG pO2 49.8 L ABG Hemoglobin 9.3 L ABG Oxyhemoglobin 83.0 L ABG Sodium 130.2 L ABG Potassium ABG Chloride 111.0 H ABG Glucose Sodium 135 L Potassium Chloride Carbon Dioxide BUN Creatinine Glucose POC Glucose 67 L Lactic Acid Calcium Magnesium Iron Total Bilirubin Direct Bilirubin AST ALT Alkaline Phosphatase Ammonia CK-MB (CK-2) CK-MB (CK-2) Rel Index Total Protein Albumin Arterial Blood Glucose Arterial Blood Ionized Calcium Urine Creatinine Urine Total Protein Salicylates Acetaminophen Crossmatch 10/16/20 10/16/20 10/16/20 05:36 05:53 05:53 WBC 16.6 H RBC 3.52 L Hgb 8.3 L Hct 26.6 L MCV 75 L MCH 23 L MCHC 31 L RDW 33.7 H Plt Count 63 L [place] % (Auto) [place] # (Auto) Seg Neutrophils % Seg Neuts % (Manual) 93.0 H Lymphocytes % (Manual) Monocytes % (Manual) Basophils % (Manual) Nucleated RBC % 3.0 H Seg Neutrophils # Seg Neutrophils # Man 15.4 H Lymphocytes # (Manual) 0.0 L Monocytes # (Manual) Basophils # (Manual) PT INR APTT Fibrinogen D-Dimer ABG pH POC ABG pCO2 POC ABG pO2 ABG Hemoglobin ABG Oxyhemoglobin ABG Sodium ABG Potassium ABG Chloride ABG Glucose Sodium 136 L Potassium Chloride 111.9 H Carbon Dioxide 17 L BUN 29 H Creatinine 2.0 H Glucose 126 H POC Glucose 44 L Lactic Acid Calcium 8.1 L Magnesium Iron Total Bilirubin Direct Bilirubin AST ALT Alkaline Phosphatase Ammonia CK-MB (CK-2) CK-MB (CK-2) Rel Index Total Protein Albumin Arterial Blood Glucose Arterial Blood Ionized Calcium Urine Creatinine Urine Total Protein Salicylates Acetaminophen Crossmatch 10/16/20 10/16/20 10/16/20 05:53 07:26 08:07 WBC RBC Hgb Hct MCV MCH MCHC RDW Plt Count [place] % (Auto) [place] # (Auto) Seg Neutrophils % Seg Neuts % (Manual) Lymphocytes % (Manual) Monocytes % (Manual) Basophils % (Manual) Nucleated RBC % Seg Neutrophils # Seg Neutrophils # Man Lymphocytes # (Manual) Monocytes # (Manual) Basophils # (Manual) PT 24.5 H INR 2.17 H APTT Fibrinogen D-Dimer ABG pH POC ABG pCO2 POC ABG pO2 ABG Hemoglobin ABG Oxyhemoglobin ABG Sodium ABG Potassium ABG Chloride ABG Glucose Sodium Potassium Chloride Carbon Dioxide BUN Creatinine Glucose POC Glucose 58 L 51 L Lactic Acid Calcium Magnesium Iron Total Bilirubin Direct Bilirubin AST ALT Alkaline Phosphatase Ammonia CK-MB (CK-2) CK-MB (CK-2) Rel Index Total Protein Albumin Arterial Blood Glucose Arterial Blood Ionized Calcium Urine Creatinine Urine Total Protein Salicylates Acetaminophen Crossmatch 10/16/20 10/16/20 10/16/20 08:52 11:14 11:33 WBC RBC Hgb Hct MCV MCH MCHC RDW Plt Count [place] % (Auto) [place] # (Auto) Seg Neutrophils % Seg Neuts % (Manual) Lymphocytes % (Manual) Monocytes % (Manual) Basophils % (Manual) Nucleated RBC % Seg Neutrophils # Seg Neutrophils # Man Lymphocytes # (Manual) Monocytes # (Manual) Basophils # (Manual) PT INR APTT Fibrinogen D-Dimer ABG pH 7.044 L POC ABG pCO2 58.1 H POC ABG pO2 57.7 L ABG Hemoglobin 9.5 L ABG Oxyhemoglobin 81.5 L ABG Sodium 131.7 L ABG Potassium ABG Chloride 112.0 H ABG Glucose 59 L Sodium Potassium Chloride Carbon Dioxide BUN Creatinine Glucose POC Glucose 58 L Lactic Acid Calcium Magnesium Iron Total Bilirubin Direct Bilirubin AST 136 H ALT 72 H Alkaline Phosphatase 240 H Ammonia CK-MB (CK-2) CK-MB (CK-2) Rel Index Total Protein 5.1 L Albumin 2.1 L Arterial Blood Glucose 59 L Arterial Blood Ionized Calcium Urine Creatinine Urine Total Protein Salicylates Acetaminophen Crossmatch 10/16/20 10/16/20 10/16/20 12:32 13:11 13:40 WBC RBC Hgb Hct MCV MCH MCHC RDW Plt Count [place] % (Auto) [place] # (Auto) Seg Neutrophils % Seg Neuts % (Manual) Lymphocytes % (Manual) Monocytes % (Manual) Basophils % (Manual) Nucleated RBC % Seg Neutrophils # Seg Neutrophils # Man Lymphocytes # (Manual) Monocytes # (Manual) Basophils # (Manual) PT INR APTT Fibrinogen D-Dimer ABG pH POC ABG pCO2 POC ABG pO2 ABG Hemoglobin ABG Oxyhemoglobin ABG Sodium ABG Potassium ABG Chloride ABG Glucose Sodium Potassium Chloride Carbon Dioxide BUN Creatinine Glucose POC Glucose 27 L 54 L 69 L Lactic Acid Calcium Magnesium Iron Total Bilirubin Direct Bilirubin AST ALT Alkaline Phosphatase Ammonia CK-MB (CK-2) CK-MB (CK-2) Rel Index Total Protein Albumin Arterial Blood Glucose Arterial Blood Ionized Calcium Urine Creatinine Urine Total Protein Salicylates Acetaminophen Crossmatch 09/06/21 09/06/21 09/06/21 15:13 17:15 17:34 WBC RBC Hgb Hct MCV MCH MCHC RDW Plt Count [place] % (Auto) [place] # (Auto) Seg Neutrophils % Seg Neuts % (Manual) Lymphocytes % (Manual) Monocytes % (Manual) Basophils % (Manual) Nucleated RBC % Seg Neutrophils # Seg Neutrophils # Man Lymphocytes # (Manual) Monocytes # (Manual) Basophils # (Manual) PT INR APTT Fibrinogen D-Dimer ABG pH POC ABG pCO2 POC ABG pO2 ABG Hemoglobin ABG Oxyhemoglobin ABG Sodium ABG Potassium ABG Chloride ABG Glucose Sodium Potassium Chloride Carbon Dioxide BUN Creatinine Glucose POC Glucose 46 L 54 L 119 H Lactic Acid Calcium Magnesium Iron Total Bilirubin Direct Bilirubin AST ALT Alkaline Phosphatase Ammonia CK-MB (CK-2) CK-MB (CK-2) Rel Index Total Protein Albumin Arterial Blood Glucose Arterial Blood Ionized Calcium Urine Creatinine Urine Total Protein Salicylates Acetaminophen Crossmatch 10/16/20 10/16/20 10/16/20 18:51 19:37 21:00 WBC RBC Hgb Hct MCV MCH MCHC RDW Plt Count [place] % (Auto) [place] # (Auto) Seg Neutrophils % Seg Neuts % (Manual) Lymphocytes % (Manual) Monocytes % (Manual) Basophils % (Manual) Nucleated RBC % Seg Neutrophils # Seg Neutrophils # Man Lymphocytes # (Manual) Monocytes # (Manual) Basophils # (Manual) PT INR APTT Fibrinogen D-Dimer ABG pH 7.122 L POC ABG pCO2 49.8 H POC ABG pO2 62.1 L ABG Hemoglobin 9.1 L ABG Oxyhemoglobin 89.6 L ABG Sodium 130.1 L ABG Potassium 3.0 L ABG Chloride 111.0 H ABG Glucose 106 H Sodium Potassium Chloride Carbon Dioxide BUN Creatinine Glucose POC Glucose 64 L 114 H Lactic Acid Calcium Magnesium Iron Total Bilirubin Direct Bilirubin AST ALT Alkaline Phosphatase Ammonia CK-MB (CK-2) CK-MB (CK-2) Rel Index Total Protein Albumin Arterial Blood Glucose 106 H Arterial Blood Ionized Calcium Urine Creatinine Urine Total Protein Salicylates Acetaminophen Crossmatch 10/16/20 10/16/20 10/17/20 22:01 22:58 00:58 WBC RBC Hgb Hct MCV MCH MCHC RDW Plt Count [place] % (Auto) [place] # (Auto) Seg Neutrophils % Seg Neuts % (Manual) Lymphocytes % (Manual) Monocytes % (Manual) Basophils % (Manual) Nucleated RBC % Seg Neutrophils # Seg Neutrophils # Man Lymphocytes # (Manual) Monocytes # (Manual) Basophils # (Manual) PT INR APTT Fibrinogen D-Dimer ABG pH POC ABG pCO2 POC ABG pO2 ABG Hemoglobin ABG Oxyhemoglobin ABG Sodium ABG Potassium ABG Chloride ABG Glucose Sodium 133 L Potassium 3.5 L Chloride 107.7 H Carbon Dioxide 15 L BUN 29 H Creatinine 2.6 H Glucose POC Glucose 63 L 292 H Lactic Acid Calcium 7.9 L Magnesium Iron Total Bilirubin Direct Bilirubin AST ALT Alkaline Phosphatase Ammonia CK-MB (CK-2) CK-MB (CK-2) Rel Index Total Protein Albumin Arterial Blood Glucose Arterial Blood Ionized Calcium Urine Creatinine Urine Total Protein Salicylates Acetaminophen Crossmatch 10/17/20 10/17/20 10/17/20 02:04 03:08 03:55 WBC RBC Hgb Hct MCV MCH MCHC RDW Plt Count [place] % (Auto) [place] # (Auto) Seg Neutrophils % Seg Neuts % (Manual) Lymphocytes % (Manual) Monocytes % (Manual) Basophils % (Manual) Nucleated RBC % Seg Neutrophils # Seg Neutrophils # Man Lymphocytes # (Manual) Monocytes # (Manual) Basophils # (Manual) PT INR APTT Fibrinogen D-Dimer ABG pH POC ABG pCO2 POC ABG pO2 ABG Hemoglobin ABG Oxyhemoglobin ABG Sodium ABG Potassium ABG Chloride ABG Glucose Sodium Potassium Chloride Carbon Dioxide BUN Creatinine Glucose POC Glucose 200 H 173 H 161 H Lactic Acid Calcium Magnesium Iron Total Bilirubin Direct Bilirubin AST ALT Alkaline Phosphatase Ammonia CK-MB (CK-2) CK-MB (CK-2) Rel Index Total Protein Albumin Arterial Blood Glucose Arterial Blood Ionized Calcium Urine Creatinine Urine Total Protein Salicylates Acetaminophen Crossmatch 10/17/20 10/17/20 10/17/20 04:00 04:49 04:49 WBC 17.7 H RBC 3.21 L Hgb 7.5 L Hct 25.4 L MCV 79 L MCH 24 L MCHC 30 L RDW 34.0 H Plt Count 40 L [place] % (Auto) [place] # (Auto) Seg Neutrophils % Seg Neuts % (Manual) Lymphocytes % (Manual) 3.0 L Monocytes % (Manual) Basophils % (Manual) Nucleated RBC % 3.0 H Seg Neutrophils # Seg Neutrophils # Man 10.6 H Lymphocytes # (Manual) 0.5 L Monocytes # (Manual) 1.1 H Basophils # (Manual) PT INR APTT Fibrinogen D-Dimer ABG pH 7.116 L POC ABG pCO2 POC ABG pO2 61.1 L ABG Hemoglobin 8.4 L ABG Oxyhemoglobin 90.2 L ABG Sodium 125.0 L ABG Potassium 3.1 L ABG Chloride ABG Glucose 155 H Sodium 133 L Potassium 3.3 L Chloride Carbon Dioxide 15 L BUN 29 H Creatinine 2.7 H Glucose 138 H POC Glucose Lactic Acid Calcium 7.8 L Magnesium Iron Total Bilirubin Direct Bilirubin AST ALT Alkaline Phosphatase Ammonia CK-MB (CK-2) CK-MB (CK-2) Rel Index Total Protein Albumin Arterial Blood Glucose 155 H Arterial Blood Ionized Calcium Urine Creatinine Urine Total Protein Salicylates Acetaminophen Crossmatch 10/17/20 10/17/20 10/17/20 04:58 06:01 07:50 WBC RBC Hgb Hct MCV MCH MCHC RDW Plt Count [place] % (Auto) [place] # (Auto) Seg Neutrophils % Seg Neuts % (Manual) Lymphocytes % (Manual) Monocytes % (Manual) Basophils % (Manual) Nucleated RBC % Seg Neutrophils # Seg Neutrophils # Man Lymphocytes # (Manual) Monocytes # (Manual) Basophils # (Manual) PT INR APTT Fibrinogen D-Dimer ABG pH POC ABG pCO2 POC ABG pO2 ABG Hemoglobin ABG Oxyhemoglobin ABG Sodium ABG Potassium ABG Chloride ABG Glucose Sodium Potassium Chloride Carbon Dioxide BUN Creatinine Glucose POC Glucose 137 H 119 H 106 H Lactic Acid Calcium Magnesium Iron Total Bilirubin Direct Bilirubin AST ALT Alkaline Phosphatase Ammonia CK-MB (CK-2) CK-MB (CK-2) Rel Index Total Protein Albumin Arterial Blood Glucose Arterial Blood Ionized Calcium Urine Creatinine Urine Total Protein Salicylates Acetaminophen Crossmatch 10/17/20 10/17/20 10/17/20 11:50 15:11 18:11 WBC RBC Hgb Hct MCV MCH MCHC RDW Plt Count [place] % (Auto) [place] # (Auto) Seg Neutrophils % Seg Neuts % (Manual) Lymphocytes % (Manual) Monocytes % (Manual) Basophils % (Manual) Nucleated RBC % Seg Neutrophils # Seg Neutrophils # Man Lymphocytes # (Manual) Monocytes # (Manual) Basophils # (Manual) PT INR APTT Fibrinogen D-Dimer ABG pH POC ABG pCO2 POC ABG pO2 ABG Hemoglobin ABG Oxyhemoglobin ABG Sodium ABG Potassium ABG Chloride ABG Glucose Sodium Potassium Chloride Carbon Dioxide BUN Creatinine Glucose POC Glucose 111 H 114 H 137 H Lactic Acid Calcium Magnesium Iron Total Bilirubin Direct Bilirubin AST ALT Alkaline Phosphatase Ammonia CK-MB (CK-2) CK-MB (CK-2) Rel Index Total Protein Albumin Arterial Blood Glucose Arterial Blood Ionized Calcium Urine Creatinine Urine Total Protein Salicylates Acetaminophen Crossmatch 10/17/20 10/17/20 10/18/20 19:51 23:32 04:00 WBC RBC Hgb Hct MCV MCH MCHC RDW Plt Count [place] % (Auto) [place] # (Auto) Seg Neutrophils % Seg Neuts % (Manual) Lymphocytes % (Manual) Monocytes % (Manual) Basophils % (Manual) Nucleated RBC % Seg Neutrophils # Seg Neutrophils # Man Lymphocytes # (Manual) Monocytes # (Manual) Basophils # (Manual) PT INR APTT Fibrinogen D-Dimer ABG pH 7.276 L POC ABG pCO2 POC ABG pO2 77.7 L ABG Hemoglobin 7.2 L ABG Oxyhemoglobin ABG Sodium 122.6 L ABG Potassium ABG Chloride ABG Glucose 113 H Sodium Potassium Chloride Carbon Dioxide BUN Creatinine Glucose POC Glucose 130 H 114 H Lactic Acid Calcium Magnesium Iron Total Bilirubin Direct Bilirubin AST ALT Alkaline Phosphatase Ammonia CK-MB (CK-2) CK-MB (CK-2) Rel Index Total Protein Albumin Arterial Blood Glucose 113 H Arterial Blood Ionized Calcium Urine Creatinine Urine Total Protein Salicylates Acetaminophen Crossmatch 10/18/20 10/18/20 10/18/20 04:06 04:06 04:13 WBC RBC Hgb Hct MCV MCH MCHC RDW Plt Count [place] % (Auto) [place] # (Auto) Seg Neutrophils % Seg Neuts % (Manual) Lymphocytes % (Manual) Monocytes % (Manual) Basophils % (Manual) Nucleated RBC % Seg Neutrophils # Seg Neutrophils # Man Lymphocytes # (Manual) Monocytes # (Manual) Basophils # (Manual) PT 23.5 H INR 2.05 H APTT Fibrinogen D-Dimer ABG pH POC ABG pCO2 POC ABG pO2 ABG Hemoglobin ABG Oxyhemoglobin ABG Sodium ABG Potassium ABG Chloride ABG Glucose Sodium 123 L D Potassium Chloride 97.9 L Carbon Dioxide 16 L BUN 31 H Creatinine 3.1 H Glucose 113 H POC Glucose 108 H Lactic Acid Calcium 7.4 L Magnesium Iron Total Bilirubin Direct Bilirubin AST ALT Alkaline Phosphatase Ammonia CK-MB (CK-2) CK-MB (CK-2) Rel Index Total Protein Albumin Arterial Blood Glucose Arterial Blood Ionized Calcium Urine Creatinine Urine Total Protein Salicylates Acetaminophen Crossmatch 10/18/20 10/18/20 10/18/20 10:03 14:12 19:08 WBC RBC Hgb Hct MCV MCH MCHC RDW Plt Count [place] % (Auto) [place] # (Auto) Seg Neutrophils % Seg Neuts % (Manual) Lymphocytes % (Manual) Monocytes % (Manual) Basophils % (Manual) Nucleated RBC % Seg Neutrophils # Seg Neutrophils # Man Lymphocytes # (Manual) Monocytes # (Manual) Basophils # (Manual) PT INR APTT Fibrinogen D-Dimer ABG pH POC ABG pCO2 POC ABG pO2 ABG Hemoglobin ABG Oxyhemoglobin ABG Sodium ABG Potassium ABG Chloride ABG Glucose Sodium Potassium Chloride Carbon Dioxide BUN Creatinine Glucose POC Glucose 139 H 112 H Lactic Acid Calcium Magnesium Iron Total Bilirubin Direct Bilirubin AST ALT Alkaline Phosphatase Ammonia CK-MB (CK-2) CK-MB (CK-2) Rel Index Total Protein Albumin Arterial Blood Glucose Arterial Blood Ionized Calcium Urine Creatinine Urine Total Protein Salicylates Acetaminophen Crossmatch See Detail 10/18/20 10/19/20 10/19/20 Unknown 02:02 04:00 WBC 19.8 H RBC 2.95 L Hgb 6.9 L Hct 22.2 L MCV 75 L MCH 24 L MCHC 31 L RDW 33.6 H Plt Count 28 L [place] % (Auto) [place] # (Auto) Seg Neutrophils % Seg Neuts % (Manual) Lymphocytes % (Manual) Monocytes % (Manual) Basophils % (Manual) Nucleated RBC % Seg Neutrophils # Seg Neutrophils # Man Lymphocytes # (Manual) Monocytes # (Manual) Basophils # (Manual) PT INR APTT Fibrinogen D-Dimer ABG pH 7.234 L POC ABG pCO2 POC ABG pO2 53.9 L ABG Hemoglobin 8.9 L ABG Oxyhemoglobin 86.6 L ABG Sodium 118.1 L ABG Potassium ABG Chloride 94.0 L ABG Glucose 61 L Sodium Potassium Chloride Carbon Dioxide BUN Creatinine Glucose POC Glucose 64 L Lactic Acid Calcium Magnesium Iron Total Bilirubin Direct Bilirubin AST ALT Alkaline Phosphatase Ammonia CK-MB (CK-2) CK-MB (CK-2) Rel Index Total Protein Albumin Arterial Blood Glucose 61 L Arterial Blood Ionized Calcium 4.5 L Urine Creatinine Urine Total Protein Salicylates Acetaminophen Crossmatch 10/19/20 10/19/20 10/19/20 04:51 04:51 05:43 WBC 18.2 H RBC 3.26 L Hgb 7.9 L Hct 24.6 L MCV 76 L MCH 24 L MCHC RDW 30.7 H Plt Count 41 L [place] % (Auto) [place] # (Auto) Seg Neutrophils % Seg Neuts % (Manual) Lymphocytes % (Manual) Monocytes % (Manual) Basophils % (Manual) Nucleated RBC % Seg Neutrophils # Seg Neutrophils # Man Lymphocytes # (Manual) Monocytes # (Manual) Basophils # (Manual) PT INR APTT Fibrinogen D-Dimer ABG pH POC ABG pCO2 POC ABG pO2 ABG Hemoglobin ABG Oxyhemoglobin ABG Sodium ABG Potassium ABG Chloride ABG Glucose Sodium 122 L Potassium Chloride 94.6 L Carbon Dioxide 17 L BUN 33 H Creatinine 3.5 H Glucose 63 L POC Glucose 54 L Lactic Acid Calcium 7.3 L Magnesium Iron Total Bilirubin 1.50 H Direct Bilirubin 0.9 H AST ALT Alkaline Phosphatase 154 H Ammonia CK-MB (CK-2) CK-MB (CK-2) Rel Index Total Protein 4.2 L Albumin 1.9 L Arterial Blood Glucose Arterial Blood Ionized Calcium Urine Creatinine Urine Total Protein Salicylates Acetaminophen Crossmatch 10/19/20 10/19/20 10/19/20 11:23 11:45 14:24 WBC RBC Hgb Hct MCV MCH MCHC RDW Plt Count [place] % (Auto) [place] # (Auto) Seg Neutrophils % Seg Neuts % (Manual) Lymphocytes % (Manual) Monocytes % (Manual) Basophils % (Manual) Nucleated RBC % Seg Neutrophils # Seg Neutrophils # Man Lymphocytes # (Manual) Monocytes # (Manual) Basophils # (Manual) PT INR APTT Fibrinogen D-Dimer ABG pH POC ABG pCO2 POC ABG pO2 ABG Hemoglobin ABG Oxyhemoglobin ABG Sodium ABG Potassium ABG Chloride ABG Glucose Sodium Potassium Chloride Carbon Dioxide BUN Creatinine Glucose POC Glucose 47 L 117 H 47 L Lactic Acid Calcium Magnesium Iron Total Bilirubin Direct Bilirubin AST ALT Alkaline Phosphatase Ammonia CK-MB (CK-2) CK-MB (CK-2) Rel Index Total Protein Albumin Arterial Blood Glucose Arterial Blood Ionized Calcium Urine Creatinine Urine Total Protein Salicylates Acetaminophen Crossmatch 10/19/20 10/19/20 10/19/20 16:31 20:04 20:19 WBC RBC Hgb Hct MCV MCH MCHC RDW Plt Count [place] % (Auto) [place] # (Auto) Seg Neutrophils % Seg Neuts % (Manual) Lymphocytes % (Manual) Monocytes % (Manual) Basophils % (Manual) Nucleated RBC % Seg Neutrophils # Seg Neutrophils # Man Lymphocytes # (Manual) Monocytes # (Manual) Basophils # (Manual) PT INR APTT Fibrinogen D-Dimer ABG pH POC ABG pCO2 POC ABG pO2 ABG Hemoglobin ABG Oxyhemoglobin ABG Sodium ABG Potassium ABG Chloride ABG Glucose Sodium Potassium Chloride Carbon Dioxide BUN Creatinine Glucose 59 L POC Glucose 58 L 49 L Lactic Acid Calcium Magnesium Iron Total Bilirubin Direct Bilirubin AST ALT Alkaline Phosphatase Ammonia CK-MB (CK-2) CK-MB (CK-2) Rel Index Total Protein Albumin Arterial Blood Glucose Arterial Blood Ionized Calcium Urine Creatinine Urine Total Protein Salicylates Acetaminophen Crossmatch 10/20/20 10/20/20 10/20/20 00:17 03:59 08:43 WBC 13.1 H RBC 3.42 L Hgb 8.3 L Hct 25.3 L MCV 74 L MCH 24 L MCHC RDW 31.4 H Plt Count 35 L [place] % (Auto) [place] # (Auto) Seg Neutrophils % Seg Neuts % (Manual) Lymphocytes % (Manual) Monocytes % (Manual) Basophils % (Manual) Nucleated RBC % Seg Neutrophils # Seg Neutrophils # Man Lymphocytes # (Manual) Monocytes # (Manual) Basophils # (Manual) PT INR APTT Fibrinogen D-Dimer ABG pH POC ABG pCO2 POC ABG pO2 ABG Hemoglobin ABG Oxyhemoglobin ABG Sodium ABG Potassium ABG Chloride ABG Glucose Sodium Potassium Chloride Carbon Dioxide BUN Creatinine Glucose POC Glucose 29 L 47 L Lactic Acid Calcium Magnesium Iron Total Bilirubin Direct Bilirubin AST ALT Alkaline Phosphatase Ammonia CK-MB (CK-2) CK-MB (CK-2) Rel Index Total Protein Albumin Arterial Blood Glucose Arterial Blood Ionized Calcium Urine Creatinine Urine Total Protein Salicylates Acetaminophen Crossmatch 10/20/20 10/20/20 10/20/20 08:43 08:43 09:56 WBC RBC Hgb Hct MCV MCH MCHC RDW Plt Count [place] % (Auto) [place] # (Auto) Seg Neutrophils % Seg Neuts % (Manual) Lymphocytes % (Manual) Monocytes % (Manual) Basophils % (Manual) Nucleated RBC % Seg Neutrophils # Seg Neutrophils # Man Lymphocytes # (Manual) Monocytes # (Manual) Basophils # (Manual) PT 30.1 H INR 2.82 H APTT Fibrinogen D-Dimer ABG pH POC ABG pCO2 POC ABG pO2 ABG Hemoglobin ABG Oxyhemoglobin ABG Sodium ABG Potassium ABG Chloride ABG Glucose Sodium 119 L* Potassium Chloride 90.7 L Carbon Dioxide 20 L BUN 35 H Creatinine 3.3 H Glucose 57 L POC Glucose 61 L Lactic Acid Calcium 7.7 L Magnesium 1.30 L Iron Total Bilirubin 1.60 H Direct Bilirubin AST ALT Alkaline Phosphatase 152 H Ammonia CK-MB (CK-2) CK-MB (CK-2) Rel Index Total Protein 4.5 L Albumin 1.6 L Arterial Blood Glucose Arterial Blood Ionized Calcium Urine Creatinine Urine Total Protein Salicylates Acetaminophen Crossmatch 10/20/20 10/20/20 10/20/20 15:35 17:30 20:17 WBC RBC Hgb Hct MCV MCH MCHC RDW Plt Count [place] % (Auto) [place] # (Auto) Seg Neutrophils % Seg Neuts % (Manual) Lymphocytes % (Manual) Monocytes % (Manual) Basophils % (Manual) Nucleated RBC % Seg Neutrophils # Seg Neutrophils # Man Lymphocytes # (Manual) Monocytes # (Manual) Basophils # (Manual) PT INR APTT Fibrinogen D-Dimer ABG pH POC ABG pCO2 POC ABG pO2 ABG Hemoglobin ABG Oxyhemoglobin ABG Sodium ABG Potassium ABG Chloride ABG Glucose Sodium 121 L 120 L Potassium Chloride Carbon Dioxide BUN Creatinine Glucose POC Glucose 61 L Lactic Acid Calcium Magnesium Iron Total Bilirubin Direct Bilirubin AST ALT Alkaline Phosphatase Ammonia CK-MB (CK-2) CK-MB (CK-2) Rel Index Total Protein Albumin Arterial Blood Glucose Arterial Blood Ionized Calcium Urine Creatinine Urine Total Protein Salicylates Acetaminophen Crossmatch 10/20/20 10/20/20 10/21/20 23:00 23:37 01:00 WBC RBC Hgb Hct MCV MCH MCHC RDW Plt Count [place] % (Auto) [place] # (Auto) Seg Neutrophils % Seg Neuts % (Manual) Lymphocytes % (Manual) Monocytes % (Manual) Basophils % (Manual) Nucleated RBC % Seg Neutrophils # Seg Neutrophils # Man Lymphocytes # (Manual) Monocytes # (Manual) Basophils # (Manual) PT INR APTT Fibrinogen D-Dimer ABG pH POC ABG pCO2 POC ABG pO2 ABG Hemoglobin ABG Oxyhemoglobin ABG Sodium ABG Potassium ABG Chloride ABG Glucose Sodium 121 L Potassium Chloride Carbon Dioxide BUN Creatinine Glucose POC Glucose 33 L 36 L Lactic Acid Calcium Magnesium Iron Total Bilirubin Direct Bilirubin AST ALT Alkaline Phosphatase Ammonia CK-MB (CK-2) CK-MB (CK-2) Rel Index Total Protein Albumin Arterial Blood Glucose Arterial Blood Ionized Calcium Urine Creatinine Urine Total Protein Salicylates Acetaminophen Crossmatch 10/21/20 10/21/20 10/21/20 02:31 04:00 05:22 WBC RBC Hgb Hct MCV MCH MCHC RDW Plt Count [place] % (Auto) [place] # (Auto) Seg Neutrophils % Seg Neuts % (Manual) Lymphocytes % (Manual) Monocytes % (Manual) Basophils % (Manual) Nucleated RBC % Seg Neutrophils # Seg Neutrophils # Man Lymphocytes # (Manual) Monocytes # (Manual) Basophils # (Manual) PT INR APTT Fibrinogen D-Dimer ABG pH POC ABG pCO2 POC ABG pO2 66.6 L ABG Hemoglobin 8.7 L ABG Oxyhemoglobin 92.1 L ABG Sodium 117.9 L ABG Potassium 3.2 L ABG Chloride 93.0 L ABG Glucose Sodium Potassium Chloride Carbon Dioxide BUN Creatinine Glucose POC Glucose 51 L 64 L Lactic Acid Calcium Magnesium Iron Total Bilirubin Direct Bilirubin AST ALT Alkaline Phosphatase Ammonia CK-MB (CK-2) CK-MB (CK-2) Rel Index Total Protein Albumin Arterial Blood Glucose Arterial Blood Ionized Calcium 4.4 L Urine Creatinine Urine Total Protein Salicylates Acetaminophen Crossmatch 10/21/20 10/21/20 10/21/20 05:50 05:50 10:32 WBC 11.1 H RBC 3.27 L Hgb 7.9 L Hct 23.9 L MCV 73 L MCH 24 L MCHC RDW 31.8 H Plt Count 26 L [place] % (Auto) [place] # (Auto) Seg Neutrophils % Seg Neuts % (Manual) Lymphocytes % (Manual) Monocytes % (Manual) Basophils % (Manual) Nucleated RBC % Seg Neutrophils # Seg Neutrophils # Man Lymphocytes # (Manual) Monocytes # (Manual) Basophils # (Manual) PT INR APTT Fibrinogen D-Dimer ABG pH POC ABG pCO2 POC ABG pO2 ABG Hemoglobin ABG Oxyhemoglobin ABG Sodium ABG Potassium ABG Chloride ABG Glucose Sodium 122 L Potassium 3.4 L Chloride 91.1 L Carbon Dioxide BUN 38 H Creatinine 3.2 H Glucose 56 L POC Glucose 68 L Lactic Acid Calcium 7.8 L Magnesium 1.60 L Iron Total Bilirubin Direct Bilirubin AST ALT Alkaline Phosphatase Ammonia CK-MB (CK-2) CK-MB (CK-2) Rel Index Total Protein Albumin Arterial Blood Glucose Arterial Blood Ionized Calcium Urine Creatinine Urine Total Protein Salicylates Acetaminophen Crossmatch 10/21/20 10/21/20 10/21/20 14:05 17:15 18:41 WBC RBC Hgb Hct MCV MCH MCHC RDW Plt Count [place] % (Auto) [place] # (Auto) Seg Neutrophils % Seg Neuts % (Manual) Lymphocytes % (Manual) Monocytes % (Manual) Basophils % (Manual) Nucleated RBC % Seg Neutrophils # Seg Neutrophils # Man Lymphocytes # (Manual) Monocytes # (Manual) Basophils # (Manual) PT INR APTT Fibrinogen D-Dimer ABG pH POC ABG pCO2 POC ABG pO2 ABG Hemoglobin ABG Oxyhemoglobin ABG Sodium ABG Potassium ABG Chloride ABG Glucose Sodium Potassium Chloride Carbon Dioxide BUN Creatinine Glucose POC Glucose 61 L 53 L 110 H Lactic Acid Calcium Magnesium Iron Total Bilirubin Direct Bilirubin AST ALT Alkaline Phosphatase Ammonia CK-MB (CK-2) CK-MB (CK-2) Rel Index Total Protein Albumin Arterial Blood Glucose Arterial Blood Ionized Calcium Urine Creatinine Urine Total Protein Salicylates Acetaminophen Crossmatch 10/21/20 10/21/20 10/21/20 21:08 22:20 Unknown WBC RBC Hgb Hct MCV MCH MCHC RDW Plt Count [place] % (Auto) [place] # (Auto) Seg Neutrophils % Seg Neuts % (Manual) Lymphocytes % (Manual) Monocytes % (Manual) Basophils % (Manual) Nucleated RBC % Seg Neutrophils # Seg Neutrophils # Man Lymphocytes # (Manual) Monocytes # (Manual) Basophils # (Manual) PT INR APTT Fibrinogen D-Dimer ABG pH POC ABG pCO2 POC ABG pO2 ABG Hemoglobin ABG Oxyhemoglobin ABG Sodium ABG Potassium ABG Chloride ABG Glucose Sodium 123 L 125 L Potassium 3.2 L Chloride 94.1 L Carbon Dioxide BUN 40 H Creatinine 3.3 H Glucose 64 L POC Glucose 117 H Lactic Acid Calcium 7.6 L Magnesium Iron Total Bilirubin Direct Bilirubin AST ALT Alkaline Phosphatase Ammonia CK-MB (CK-2) CK-MB (CK-2) Rel Index Total Protein Albumin Arterial Blood Glucose Arterial Blood Ionized Calcium Urine Creatinine Urine Total Protein Salicylates Acetaminophen Crossmatch 10/21/20 10/21/20 10/22/20 Unknown Unknown 02:43 WBC RBC 3.40 L Hgb 8.4 L Hct 24.8 L MCV 73 L MCH 25 L MCHC RDW 31.5 H Plt Count 21 L [place] % (Auto) [place] # (Auto) Seg Neutrophils % Seg Neuts % (Manual) 83.0 H Lymphocytes % (Manual) 10.0 L Monocytes % (Manual) Basophils % (Manual) Nucleated RBC % 2.0 H Seg Neutrophils # Seg Neutrophils # Man 9.0 H Lymphocytes # (Manual) 1.1 L Monocytes # (Manual) Basophils # (Manual) PT 27.0 H INR 2.44 H APTT 61.4 H* Fibrinogen 482 H D-Dimer 1992.93 H ABG pH POC ABG pCO2 POC ABG pO2 ABG Hemoglobin ABG Oxyhemoglobin ABG Sodium ABG Potassium ABG Chloride ABG Glucose Sodium 122 L Potassium 3.1 L Chloride 92.9 L Carbon Dioxide BUN 44 H Creatinine 3.2 H Glucose POC Glucose Lactic Acid Calcium 7.8 L Magnesium Iron Total Bilirubin Direct Bilirubin AST ALT Alkaline Phosphatase Ammonia CK-MB (CK-2) CK-MB (CK-2) Rel Index Total Protein Albumin Arterial Blood Glucose Arterial Blood Ionized Calcium Urine Creatinine Urine Total Protein Salicylates Acetaminophen Crossmatch 10/22/20 10/22/20 10/22/20 04:00 06:00 20:00 WBC RBC 3.29 L Hgb 8.0 L Hct 24.3 L MCV 74 L MCH 24 L MCHC RDW 32.2 H Plt Count 21 L [place] % (Auto) [place] # (Auto) Seg Neutrophils % Seg Neuts % (Manual) Lymphocytes % (Manual) Monocytes % (Manual) Basophils % (Manual) Nucleated RBC % Seg Neutrophils # Seg Neutrophils # Man Lymphocytes # (Manual) Monocytes # (Manual) Basophils # (Manual) PT INR APTT Fibrinogen D-Dimer ABG pH POC ABG pCO2 29.1 L POC ABG pO2 64.1 L ABG Hemoglobin 8.2 L ABG Oxyhemoglobin 90.6 L ABG Sodium 118.8 L ABG Potassium ABG Chloride 96.0 L ABG Glucose 117 H Sodium 126 L Potassium Chloride 95.8 L Carbon Dioxide 21 L BUN 50 H Creatinine 3.4 H Glucose POC Glucose Lactic Acid Calcium 7.9 L Magnesium Iron Total Bilirubin Direct Bilirubin AST ALT Alkaline Phosphatase Ammonia CK-MB (CK-2) CK-MB (CK-2) Rel Index Total Protein Albumin Arterial Blood Glucose 117 H Arterial Blood Ionized Calcium Urine Creatinine Urine Total Protein Salicylates Acetaminophen Crossmatch 10/23/20 10/23/20 10/23/20 04:00 05:35 05:35 WBC RBC 2.94 L Hgb 7.3 L Hct 21.3 L MCV 72 L MCH 25 L MCHC RDW 32.3 H Plt Count 56 L D [place] % (Auto) [place] # (Auto) Seg Neutrophils % Seg Neuts % (Manual) 83.0 H Lymphocytes % (Manual) 9.0 L Monocytes % (Manual) Basophils % (Manual) Nucleated RBC % 3.0 H Seg Neutrophils # Seg Neutrophils # Man Lymphocytes # (Manual) 0.7 L Monocytes # (Manual) Basophils # (Manual) PT INR APTT Fibrinogen D-Dimer ABG pH POC ABG pCO2 29.0 L POC ABG pO2 ABG Hemoglobin 7.7 L ABG Oxyhemoglobin ABG Sodium 120.4 L ABG Potassium ABG Chloride 97.0 L ABG Glucose Sodium 128 L Potassium Chloride 96.7 L Carbon Dioxide BUN 56 H Creatinine 3.4 H Glucose POC Glucose Lactic Acid Calcium Magnesium Iron Total Bilirubin Direct Bilirubin AST ALT Alkaline Phosphatase Ammonia CK-MB (CK-2) CK-MB (CK-2) Rel Index Total Protein Albumin Arterial Blood Glucose Arterial Blood Ionized Calcium Urine Creatinine Urine Total Protein Salicylates Acetaminophen Crossmatch 10/23/20 10/24/20 10/24/20 21:01 03:00 05:27 WBC RBC 2.98 L Hgb 7.4 L Hct 21.8 L MCV 73 L MCH 25 L MCHC RDW 32.2 H Plt Count 56 L [place] % (Auto) [place] # (Auto) Seg Neutrophils % Seg Neuts % (Manual) Lymphocytes % (Manual) Monocytes % (Manual) Basophils % (Manual) Nucleated RBC % Seg Neutrophils # Seg Neutrophils # Man Lymphocytes # (Manual) Monocytes # (Manual) Basophils # (Manual) PT INR APTT Fibrinogen D-Dimer ABG pH 7.490 H POC ABG pCO2 26.8 L POC ABG pO2 ABG Hemoglobin 3.3 L ABG Oxyhemoglobin 83.6 L ABG Sodium 118.0 L ABG Potassium ABG Chloride 97.0 L ABG Glucose Sodium Potassium Chloride Carbon Dioxide BUN Creatinine Glucose POC Glucose > 600 H Lactic Acid Calcium Magnesium Iron Total Bilirubin Direct Bilirubin AST ALT Alkaline Phosphatase Ammonia CK-MB (CK-2) CK-MB (CK-2) Rel Index Total Protein Albumin Arterial Blood Glucose Arterial Blood Ionized Calcium 4.5 L Urine Creatinine Urine Total Protein Salicylates Acetaminophen Crossmatch 10/24/20 10/24/20 10/24/20 05:27 05:27 10:07 WBC RBC Hgb Hct MCV MCH MCHC RDW Plt Count [place] % (Auto) [place] # (Auto) Seg Neutrophils % Seg Neuts % (Manual) Lymphocytes % (Manual) Monocytes % (Manual) Basophils % (Manual) Nucleated RBC % Seg Neutrophils # Seg Neutrophils # Man Lymphocytes # (Manual) Monocytes # (Manual) Basophils # (Manual) PT 20.4 H INR 1.70 H APTT Fibrinogen D-Dimer ABG pH POC ABG pCO2 POC ABG pO2 ABG Hemoglobin ABG Oxyhemoglobin ABG Sodium ABG Potassium ABG Chloride ABG Glucose Sodium 123 L Potassium 3.5 L Chloride 93.3 L Carbon Dioxide 20 L BUN 66 H Creatinine 3.9 H Glucose POC Glucose 110 H Lactic Acid Calcium 8.1 L Magnesium Iron Total Bilirubin Direct Bilirubin AST 54 H ALT Alkaline Phosphatase 316 H Ammonia CK-MB (CK-2) CK-MB (CK-2) Rel Index Total Protein 5.1 L Albumin 1.7 L Arterial Blood Glucose Arterial Blood Ionized Calcium Urine Creatinine Urine Total Protein Salicylates Acetaminophen Crossmatch 10/24/20 10/24/20 10/24/20 18:24 23:11 23:28 WBC RBC Hgb Hct MCV MCH MCHC RDW Plt Count [place] % (Auto) [place] # (Auto) Seg Neutrophils % Seg Neuts % (Manual) Lymphocytes % (Manual) Monocytes % (Manual) Basophils % (Manual) Nucleated RBC % Seg Neutrophils # Seg Neutrophils # Man Lymphocytes # (Manual) Monocytes # (Manual) Basophils # (Manual) PT INR APTT Fibrinogen D-Dimer ABG pH POC ABG pCO2 POC ABG pO2 ABG Hemoglobin ABG Oxyhemoglobin ABG Sodium ABG Potassium ABG Chloride ABG Glucose Sodium Potassium Chloride Carbon Dioxide BUN Creatinine Glucose 142 H POC Glucose 121 H 137 H Lactic Acid Calcium Magnesium Iron Total Bilirubin Direct Bilirubin AST ALT Alkaline Phosphatase Ammonia CK-MB (CK-2) CK-MB (CK-2) Rel Index Total Protein Albumin Arterial Blood Glucose Arterial Blood Ionized Calcium Urine Creatinine Urine Total Protein Salicylates Acetaminophen Crossmatch 10/25/20 10/25/20 10/25/20 05:22 05:22 05:28 WBC RBC Hgb Hct MCV MCH MCHC RDW Plt Count [place] % (Auto) [place] # (Auto) Seg Neutrophils % Seg Neuts % (Manual) Lymphocytes % (Manual) Monocytes % (Manual) Basophils % (Manual) Nucleated RBC % Seg Neutrophils # Seg Neutrophils # Man Lymphocytes # (Manual) Monocytes # (Manual) Basophils # (Manual) PT INR APTT Fibrinogen D-Dimer ABG pH POC ABG pCO2 POC ABG pO2 ABG Hemoglobin ABG Oxyhemoglobin ABG Sodium ABG Potassium ABG Chloride ABG Glucose Sodium 133 L D Potassium Chloride Carbon Dioxide BUN 55 H Creatinine 3.1 H Glucose 127 H 127 H POC Glucose 121 H Lactic Acid Calcium Magnesium Iron Total Bilirubin Direct Bilirubin AST ALT Alkaline Phosphatase Ammonia CK-MB (CK-2) CK-MB (CK-2) Rel Index Total Protein Albumin Arterial Blood Glucose Arterial Blood Ionized Calcium Urine Creatinine Urine Total Protein Salicylates Acetaminophen Crossmatch 10/25/20 10/25/20 10/25/20 08:35 11:39 15:09 WBC RBC 2.84 L Hgb 7.0 L Hct 20.9 L MCV 74 L MCH 25 L MCHC RDW 30.8 H Plt Count 101 L [place] % (Auto) [place] # (Auto) Seg Neutrophils % Seg Neuts % (Manual) Lymphocytes % (Manual) Monocytes % (Manual) Basophils % (Manual) Nucleated RBC % Seg Neutrophils # Seg Neutrophils # Man Lymphocytes # (Manual) Monocytes # (Manual) Basophils # (Manual) PT INR APTT Fibrinogen D-Dimer ABG pH POC ABG pCO2 POC ABG pO2 ABG Hemoglobin ABG Oxyhemoglobin ABG Sodium ABG Potassium ABG Chloride ABG Glucose Sodium Potassium Chloride Carbon Dioxide BUN Creatinine Glucose 179 H POC Glucose 165 H Lactic Acid Calcium Magnesium Iron Total Bilirubin Direct Bilirubin AST ALT Alkaline Phosphatase Ammonia CK-MB (CK-2) CK-MB (CK-2) Rel Index Total Protein Albumin Arterial Blood Glucose Arterial Blood Ionized Calcium Urine Creatinine Urine Total Protein Salicylates Acetaminophen Crossmatch 10/25/20 10/25/20 10/25/20 15:15 17:51 23:10 WBC RBC Hgb Hct MCV MCH MCHC RDW Plt Count [place] % (Auto) [place] # (Auto) Seg Neutrophils % Seg Neuts % (Manual) Lymphocytes % (Manual) Monocytes % (Manual) Basophils % (Manual) Nucleated RBC % Seg Neutrophils # Seg Neutrophils # Man Lymphocytes # (Manual) Monocytes # (Manual) Basophils # (Manual) PT INR APTT Fibrinogen D-Dimer ABG pH 7.478 H POC ABG pCO2 POC ABG pO2 39.0 L ABG Hemoglobin 7.7 L ABG Oxyhemoglobin 72.9 L ABG Sodium 133.3 L ABG Potassium ABG Chloride ABG Glucose 189 H Sodium Potassium Chloride Carbon Dioxide BUN Creatinine Glucose POC Glucose 132 H 140 H Lactic Acid Calcium Magnesium Iron Total Bilirubin Direct Bilirubin AST ALT Alkaline Phosphatase Ammonia CK-MB (CK-2) CK-MB (CK-2) Rel Index Total Protein Albumin Arterial Blood Glucose 189 H Arterial Blood Ionized Calcium 4.4 L Urine Creatinine Urine Total Protein Salicylates Acetaminophen Crossmatch 10/26/20 10/26/20 04:30 11:28 WBC RBC Hgb Hct MCV MCH MCHC RDW Plt Count [place] % (Auto) [place] # (Auto) Seg Neutrophils % Seg Neuts % (Manual) Lymphocytes % (Manual) Monocytes % (Manual) Basophils % (Manual) Nucleated RBC % Seg Neutrophils # Seg Neutrophils # Man Lymphocytes # (Manual) Monocytes # (Manual) Basophils # (Manual) PT INR APTT Fibrinogen D-Dimer ABG pH POC ABG pCO2 POC ABG pO2 ABG Hemoglobin ABG Oxyhemoglobin ABG Sodium ABG Potassium ABG Chloride ABG Glucose Sodium 136 L Potassium Chloride Carbon Dioxide BUN 44 H Creatinine 2.7 H Glucose POC Glucose 137 H Lactic Acid Calcium 8.1 L Magnesium Iron Total Bilirubin Direct Bilirubin AST ALT Alkaline Phosphatase Ammonia CK-MB (CK-2) CK-MB (CK-2) Rel Index Total Protein Albumin Arterial Blood Glucose Arterial Blood Ionized Calcium Urine Creatinine Urine Total Protein Salicylates Acetaminophen Crossmatch Allied health notes reviewed: nursing
--- NOTE | 2020-10-26 12:01 | Progress Note ---
Assessment and Plan Patient is a 75 y/o male Atherosclerotic cerebrovascular disease * Management per primary teams Acute hypoxic respiratory failure * Pulmonology following * Currently intubated Paroxysmal Afib w/RVR HFrEF * Given pt's hemodynamic instability (currently requiring vasopressors), unable to start ELADIA/ARB, BB, or non-dihydropyridine CCB * Currently Afib but rate controlled. S/p amio gtt * Would not recommend anticoagulation currently given anemia/thrombocytopenia * Echo 10/04/2020-EF 25 to 30%, right ventricle severely dilated and moderately hypokinetic, left atrium is mildly dilated, right atrium severely dilated, moderate to severe tricuspid regurgitation, moderate mitral regurgitation tricuspid annulus dilated. Acute Renal Failure * Receiving HD * Nephrology following Patient currently afib but rate controlled. Will hold continue to hold amio as long patient is rate controlled Patient seen in conjunction with Dr. Rebolledo who agrees with this plan of care. Will continue to follow 30min of critical care time spent in coordination of this patient - Patient Problems (1) Afib Current Visit: Yes Status: Acute (2) Acute encephalopathy Current Visit: Yes Status: Acute (3) Atherosclerotic cerebrovascular disease Current Visit: Yes Status: Acute (4) Hypoglycemia Current Visit: Yes Status: Acute (5) Left-sided weakness Current Visit: Yes Status: Acute (6) Microcytic anemia Current Visit: Yes Status: Acute (7) Pulmonary infiltrate in right lung on CXR Current Visit: Yes Status: Acute (8) HFrEF (heart failure with reduced ejection fraction) Current Visit: Yes Status: Acute (9) Dilated cardiomyopathy Current Visit: Yes Status: Acute Subjective Date of service: 10/26/20 Principal diagnosis: Ac hypoxemic resp failure; Pneumonia; BETSY; Ac. encephalopathy Interval history: Patient intubated. Patient to receive HD today Patient afib 90s-100s on monitor Objective Vital Signs Temp Pulse Pulse Resp BP Pulse Ox Pulse Ox 10/26/20 11:45 95 H 93/60 10/26/20 11:43 98.1 F 10/26/20 11:30 92 H 107/57 10/26/20 11:25 97 H 105/60 89 10/26/20 11:15 98 H 23 105/60 94 10/26/20 11:00 86 24 119/63 95 10/26/20 10:45 103 H 24 99/60 95 10/26/20 10:30 94 H 23 108/59 95 10/26/20 10:15 107 H 24 97/59 96 10/26/20 10:00 91 H 22 110/57 96 10/26/20 09:50 94 H 107/65 10/26/20 09:45 95 H 22 107/65 97 10/26/20 09:37 98.1 F 100 H 21 109/63 96 10/26/20 09:30 98 H 21 110/57 96 10/26/20 09:16 95 H 20 78/54 94 10/26/20 09:00 92 H 19 103/54 97 10/26/20 08:45 101 H 18 90/48 97 10/26/20 08:30 102 H 22 101/56 97 10/26/20 08:16 105 H 20 92/47 97 10/26/20 08:00 94 H 105 H 21 103/57 95 10/26/20 07:45 92 H 22 103/57 95 10/26/20 07:30 88 21 103/61 96 10/26/20 07:25 96 H 103/62 97 10/26/20 07:15 111 H 19 103/62 95 10/26/20 07:14 99.2 F 10/26/20 07:00 84 21 98/57 96 10/26/20 06:45 104 H 22 101/57 96 10/26/20 06:30 89 22 103/55 96 10/26/20 06:15 112 H 21 100/58 96 10/26/20 06:00 93 H 20 96/60 94 10/26/20 05:45 105 H 20 100/59 95 10/26/20 05:30 93 H 22 98/56 94 10/26/20 05:15 105 H 21 99/49 93 10/26/20 05:00 117/63 93 10/26/20 04:45 104 H 14 117/63 98 10/26/20 04:30 101 H 21 118/66 97 10/26/20 04:15 95 H 20 109/62 96 10/26/20 04:00 99 H 89 21 121/61 97 10/26/20 03:45 97 H 20 121/61 95 10/26/20 03:44 103 H 115/61 97 10/26/20 03:30 99.3 F 98 H 20 115/61 97 10/26/20 03:16 101 H 20 107/59 97 10/26/20 03:00 109 H 20 98/68 97 10/26/20 02:46 103 H 20 104/62 98 10/26/20 02:30 101 H 20 88/55 97 10/26/20 02:15 101 H 19 79/55 97 10/26/20 02:00 100 H 19 90/57 94 10/26/20 01:45 104 H 21 83/51 94 10/26/20 01:30 96 H 19 96/50 94 10/26/20 01:15 102 H 21 88/54 94 10/26/20 01:00 99 H 20 104/49 95 10/26/20 00:45 106 H 20 97/49 94 10/26/20 00:30 105 H 22 85/51 94 10/26/20 00:16 92 H 21 103/55 92 10/26/20 00:00 98.1 F 96 H 104 H 20 107/53 95 10/25/20 23:50 94 H 95/50 94 10/25/20 23:45 101 H 20 100/52 94 10/25/20 23:30 102 H 19 101/55 96 10/25/20 23:15 98 H 21 101/55 97 10/25/20 23:00 95 H 20 103/54 100 10/25/20 22:46 76 20 89/50 98 10/25/20 22:45 88 20 97/54 99 10/25/20 22:30 97 H 20 89/53 96 10/25/20 22:19 90 20 89/50 98 10/25/20 22:15 84 20 89/50 97 10/25/20 22:00 83 20 87/48 96 10/25/20 21:45 99 H 19 85/53 96 10/25/20 21:30 84 20 85/49 96 10/25/20 21:15 82 20 90/58 96 10/25/20 21:00 84 21 84/49 97 10/25/20 20:45 84 20 87/47 96 10/25/20 20:30 79 20 95/53 98 10/25/20 20:15 83 20 86/49 99 10/25/20 20:00 97.0 F L 89 89 20 82/55 99 10/25/20 19:45 87 21 91/51 98 10/25/20 19:35 91 H 96/52 97 10/25/20 19:30 93 H 20 96/52 98 10/25/20 19:15 92 H 22 96/53 98 10/25/20 19:00 87 22 83/51 96 10/25/20 18:45 86 21 92/54 97 10/25/20 18:30 85 20 97/57 98 10/25/20 18:15 86 19 93/54 99 10/25/20 18:00 76 20 87/49 98 10/25/20 17:46 95 H 17 81/51 100 10/25/20 17:30 92 H 19 88/50 100 10/25/20 17:15 107 H 21 107/59 99 10/25/20 17:00 98 H 20 106/58 99 10/25/20 16:45 92 H 20 100/57 98 10/25/20 16:31 90 116/55 97 10/25/20 16:30 96 H 17 116/55 99 10/25/20 16:16 97 H 20 123/53 99 10/25/20 16:00 98.8 F 86 96 H 20 111/51 97 10/25/20 15:46 98 H 20 111/51 97 10/25/20 15:30 107 H 20 128/66 99 10/25/20 15:15 111 H 20 128/66 99 10/25/20 15:00 109 H 20 129/66 97 10/25/20 14:45 96 H 21 129/66 97 10/25/20 14:30 95 H 21 126/59 97 10/25/20 14:15 93 H 20 137/53 96 10/25/20 14:00 107 H 21 137/52 97 10/25/20 13:45 102 H 21 132/56 96 10/25/20 13:30 102 H 21 129/58 97 10/25/20 13:15 103 H 22 121/52 96 10/25/20 13:00 96.8 F L 110 H 22 111/60 97 96 10/25/20 12:50 97 H 107/52 10/25/20 12:45 109 H 23 110/50 96 10/25/20 12:39 103 H 100/49 95 10/25/20 12:30 105 H 23 91/48 95 09/15/21 12:15 101 H 26 H 98/48 94 10/25/20 12:00 107 H 101 H 26 H 120/51 97 - Physical Examination General: Other (intubated) HEENT: Positive: Mucus Membranes Dry Neck: Positive: trachea midline Neuro: Positive: Other (intubated) Abdomen: Positive: Soft Skin: Negative: Rash Extremities: Present: upper extr. pulses, lower extr. pulses, edema - Labs and Meds Comprehensive Metabolic Panel 10/25/20 10/26/20 Range/Units 15:09 04:30 Sodium 136 L (137-145) mmol/L Potassium 3.9 (3.6-5.0) mmol/L Chloride 100.6 (98-107) mmol/L Carbon Dioxide 29 (22-30) mmol/L BUN 44 H (9-20) mg/dL Creatinine 2.7 H (0.8-1.3) mg/dL Glucose 179 H 95 (75-100) mg/dL Calcium 8.1 L (8.4-10.2) mg/dL - Imaging and Cardiology EKG: report reviewed, image reviewed Echo: report reviewed - EKG Sinus rhythms and dysrhythmias: sinus rhythm - Allied health notes Allied health notes reviewed: nursing
--- NOTE | 2020-10-26 12:44 | Progress Note ---
Assessment and Plan Assessment and plan: #Atherosclerotic cerebrovascular disease #Altered mental status -Persistent -Neurology following, recs appreciated -Continue Keppra, seizure precautions -Continue thiamine and folate -Status post EEG #Paroxysmal atrial fibrillation #Heart failure reduced ejection fraction -EF 10-15%, recent echo EF 25-30% -We will maintain MAP greater than 65 -dobutamine discontinued -will continue midodrine for now -Cardiology following -improved volume status post dialysis #Acute hypoxic respiratory failure -Currently on mechanical ventilation (intubated 10/15) -CCM following, assistance appreciated -Continue stress dose steroids #BETSY -Nephrology following -continue HD #Superficial venous thrombosis -Bilateral upper and lower extremity Doppler ultrasound show superficial venous thrombus of left basilic and cephalic veins #Thrombocytopenia -improving, platelet count 138 today; lowest 21 -improving we will continue to monitor; likely due to critical illness #GI bleed -Continue protonix -GI consulted in the past, will hold off EGD/PEG given clinical condition Total Time Spent with Patient (Minutes): 30 minutes History Interval history: Afebrile.Patient on mechanical ventilation and HD. Hospitalist Physical - Physical exam Narrative exam: GENERAL: Intubated. HEENT: Spontaneously moves head and opens eyes to stimuli. ETT/PEGGY in place. CHEST/LUNGS: Coarse breath sound bilaterally. HEART/CARDIOVASCULAR: irregularly irregular rhythm. No murmur, rubs or gallops appreciated. ABDOMEN: +BS. NT/ND. SKIN: weeping edema upper and lower extremities. NEURO: Unable to assess given patient mental status EXTREMITIES: 2+ edema PSYCH: Unable to assess. - Constitutional Vitals: Temp Pulse Resp BP Pulse Ox 98.1 F 98 H 20 90/50 91 10/26/20 11:43 10/26/20 12:30 10/26/20 12:00 10/26/20 12:30 10/26/20 12:00 General appearance: Present: no acute distress, other (intubated and minimally responsive to tactile stimuli) HEART Score - HEART Score Troponin: Troponin T < 0.010 ng/mL (0.00-0.029) 10/02/20 23:17 Results - Labs CBC & Chem 7: 10/26/20 11:00 10/26/20 04:30 Labs: Laboratory Last Values WBC 9.9 K/mm3 (4.5-11.0) 10/25/20 08:35 RBC 2.84 M/mm3 (3.65-5.03) L 10/25/20 08:35 Hgb 7.0 gm/dl (11.8-15.2) L 10/25/20 08:35 Hct 20.9 % (35.5-45.6) L 10/25/20 08:35 MCV 74 fl (84-94) L 10/25/20 08:35 MCH 25 pg (28-32) L 10/25/20 08:35 MCHC 34 % (32-34) 10/25/20 08:35 RDW 30.8 % (13.2-15.2) H 10/25/20 08:35 Plt Count 101 K/mm3 (140-440) L 10/25/20 08:35 Lymph % (Auto) Records Management Coordinator 10/10/20 10:58 [place] % (Auto) 8.3 % (0.0-7.3) H 10/15/20 05:50 Eos % (Auto) 0.3 % (0.0-4.3) 10/15/20 05:50 Baso % (Auto) Records Management Coordinator 10/10/20 10:58 Lymph # (Auto) Records Management Coordinator 10/10/20 10:58 [place] # (Auto) 1.3 K/mm3 (0.0-0.8) H 10/15/20 05:50 Eos # (Auto) 0.0 K/mm3 (0.0-0.4) 10/15/20 05:50 Baso # (Auto) 0.1 K/mm3 (0.0-0.1) 10/15/20 05:50 Add Manual Diff Complete 10/23/20 05:35 Total Counted 100 10/23/20 05:35 Seg Neutrophils % Records Management Coordinator 10/21/20 Unknown Seg Neuts % (Manual) 83.0 % (40.0-70.0) H 10/23/20 05:35 Band Neutrophils % 5.0 % 10/23/20 05:35 Lymphocytes % (Manual) 9.0 % (13.4-35.0) L 10/23/20 05:35 Reactive Lymphs % (Man) 1.0 % 10/23/20 05:35 Monocytes % (Manual) 1.0 % (0.0-7.3) 10/23/20 05:35 Eosinophils % (Manual) 1.0 % (0.0-4.3) 10/23/20 05:35 Basophils % (Manual) 2.0 % (0.0-1.8) H 10/10/20 10:58 Metamyelocytes % 11.0 % 10/17/20 04:49 Myelocytes % 7.0 % 10/17/20 04:49 Nucleated RBC % 3.0 % (0.0-0.9) H 10/23/20 05:35 Seg Neutrophils # 13.2 K/mm3 (1.8-7.7) H 10/15/20 05:50 Seg Neutrophils # Man 6.1 K/mm3 (1.8-7.7) 10/23/20 05:35 Band Neutrophils # 0.4 K/mm3 10/23/20 05:35 Lymphocytes # (Manual) 0.7 K/mm3 (1.2-5.4) L 10/23/20 05:35 Abs React Lymphs (Man) 0.1 K/mm3 10/23/20 05:35 Monocytes # (Manual) 0.1 K/mm3 (0.0-0.8) 10/23/20 05:35 Eosinophils # (Manual) 0.1 K/mm3 (0.0-0.4) 10/23/20 05:35 Basophils # (Manual) 0.0 K/mm3 (0.0-0.1) 10/23/20 05:35 Metamyelocytes # 0.0 K/mm3 10/23/20 05:35 Myelocytes # 0.0 K/mm3 10/23/20 05:35 Promyelocytes # 0.0 K/mm3 10/23/20 05:35 Blast Cells # 0.0 K/mm3 10/23/20 05:35 WBC Morphology Not Reportable 10/23/20 05:35 Hypersegmented Neuts Not Reportable 10/23/20 05:35 Hyposegmented Neuts Not Reportable 10/23/20 05:35 Hypogranular Neuts Not Reportable 10/23/20 05:35 Smudge Cells Not Reportable 10/23/20 05:35 Toxic Granulation 1+ 10/23/20 05:35 Toxic Vacuolation 1+ 10/23/20 05:35 Dohle Bodies 1+ 10/23/20 05:35 Pelger-Huet Anomaly Not Reportable 10/23/20 05:35 Andrés Rods Not Reportable 10/23/20 05:35 Platelet Estimate Consistent w auto 10/23/20 05:35 Clumped Platelets Not Reportable 10/23/20 05:35 Plt Clumps, EDTA Not Reportable 10/23/20 05:35 Large Platelets Not Reportable 10/23/20 05:35 Giant Platelets Not Reportable 10/23/20 05:35 Platelet Satelliting Not Reportable 10/23/20 05:35 Plt Morphology Comment Not Reportable 10/23/20 05:35 RBC Morphology Not Reportable 10/23/20 05:35 Dimorphic RBCs Not Reportable 10/23/20 05:35 Polychromasia 1+ 10/23/20 05:35 Hypochromasia 2+ 10/23/20 05:35 Poikilocytosis 2+ 10/23/20 05:35 Anisocytosis 3+ 10/23/20 05:35 Microcytosis Not Reportable 10/23/20 05:35 Macrocytosis Not Reportable 10/23/20 05:35 Spherocytes 1+ 10/23/20 05:35 Pappenheimer Bodies Not Reportable 10/23/20 05:35 Sickle Cells Not Reportable 10/23/20 05:35 Target Cells 1+ 10/23/20 05:35 Tear Drop Cells Not Reportable 10/23/20 05:35 Ovalocytes Not Reportable 10/23/20 05:35 Helmet Cells Not Reportable 10/23/20 05:35 [place] Bodies Not Reportable 10/23/20 05:35 [place] Rings Not Reportable 10/23/20 05:35 Norbert Cells Not Reportable 10/23/20 05:35 Bite Cells Not Reportable 10/23/20 05:35 Crenated Cell Not Reportable 10/23/20 05:35 Elliptocytes Not Reportable 10/23/20 05:35 Acanthocytes (Spur) 1+ 10/23/20 05:35 Rouleaux Not Reportable 10/23/20 05:35 Hemoglobin C Crystals Not Reportable 10/23/20 05:35 Schistocytes Not Reportable 10/23/20 05:35 Malaria parasites Not Reportable 10/23/20 05:35 Dereck Bodies Not Reportable 10/23/20 05:35 Hem Pathologist Commnt No 10/23/20 05:35 PT 20.4 Sec. (12.2-14.9) H 10/24/20 05:27 INR 1.70 (0.87-1.13) H 10/24/20 05:27 APTT 61.4 Sec. (24.2-36.6) H* 10/21/20 Unknown Thrombin Time 17.8 Sec. (15.1-19.6) 10/02/20 23:17 Fibrinogen 482 mg/dl (211-480) H 10/21/20 Unknown D-Dimer 1992.93 ng/mlDDU (0-234) H 10/21/20 Unknown ABG pH 7.478 (7.320-7.450) H 10/25/20 15:15 POC ABG pCO2 39.3 mmHg (32.0-48.0) 10/25/20 15:15 POC ABG pO2 39.0 mmHg (83-108) L 10/25/20 15:15 POC ABG HCO3 28.5 10/25/20 15:15 ABG O2 Saturation 73.5 (0-100) 10/25/20 15:15 POC ABG Base Excess 4.6 10/25/20 15:15 ABG Hemoglobin 7.7 (12.0-17.5) L 10/25/20 15:15 ABG Oxyhemoglobin 72.9 (94-98) L 10/25/20 15:15 ABG Methemoglobin 0.3 (0.0-1.5) 10/25/20 15:15 ABG Sodium 133.3 mmol/L (136.0-145.0) L 10/25/20 15:15 ABG Potassium 3.4 mmol/L (3.40-4.50) 10/25/20 15:15 ABG Chloride 102.0 mmol/L (98-107) 10/25/20 15:15 ABG Glucose 189 mg/dL (65-95) H 10/25/20 15:15 Carboxyhemoglobin 0.5 (0.5-1.5) 10/25/20 15:15 FiO2 % 30.0 10/25/20 15:15 Sodium 136 mmol/L (137-145) L 10/26/20 04:30 Potassium 3.9 mmol/L (3.6-5.0) 10/26/20 04:30 Chloride 100.6 mmol/L (98-107) 10/26/20 04:30 Carbon Dioxide 29 mmol/L (22-30) 10/26/20 04:30 Anion Gap 10 mmol/L 10/26/20 04:30 BUN 44 mg/dL (9-20) H 10/26/20 04:30 Creatinine 2.7 mg/dL (0.8-1.3) H 10/26/20 04:30 Estimated GFR 28 ml/min 10/26/20 04:30 BUN/Creatinine Ratio 16 % 10/26/20 04:30 Glucose 95 mg/dL (75-100) 10/26/20 04:30 POC Glucose 137 mg/dL (70-105) H 10/26/20 11:28 Hemoglobin A1c 5.2 % (4-6) 10/03/20 05:57 Osmolality 267 Mosm/kg 10/07/20 13:54 Lactic Acid 1.50 mmol/L (0.7-2.0) 10/03/20 04:43 Calcium 8.1 mg/dL (8.4-10.2) L 10/26/20 04:30 Phosphorus 2.80 mg/dL (2.5-4.5) 10/23/20 05:35 Magnesium 2.10 mg/dL (1.7-2.3) 10/23/20 05:35 Iron 42 ug/dL (49-181) L 10/03/20 05:57 TIBC 305 mcg/dL (250-450) 10/03/20 05:57 Total Bilirubin 0.80 mg/dL (0.1-1.2) 10/24/20 05:27 Direct Bilirubin 0.9 mg/dL (0-0.2) H 10/19/20 04:51 Indirect Bilirubin 0.6 mg/dL 10/19/20 04:51 AST 54 units/L (5-40) H 10/24/20 05:27 ALT 54 units/L (7-56) 10/24/20 05:27 Alkaline Phosphatase 316 units/L (35-129) H 10/24/20 05:27 Ammonia 36.0 umol/L (25-60) 10/24/20 05:27 Total Creatine Kinase 88 units/L (55-170) 10/02/20 23:17 CK-MB (CK-2) 7.5 ng/mL (0.0-4.0) H 10/02/20 23:17 CK-MB (CK-2) Rel Index 8.5 (0-4) H 10/02/20 23:17 Troponin T < 0.010 ng/mL (0.00-0.029) 10/02/20 23:17 Total Protein 5.1 g/dL (6.3-8.2) L 10/24/20 05:27 Albumin 1.7 g/dL (3.9-5) L 10/24/20 05:27 Albumin/Globulin Ratio 0.5 % 10/24/20 05:27 Lipase 17 units/L (13-60) 10/16/20 22:58 Procalcitonin 0.10 ng/mL (<0.15) 10/10/20 10:58 TSH 2.130 mlU/mL (0.270-4.200) 10/07/20 13:54 Total Cortisol 17.4 mcg/dL () 10/09/20 02:46 Arterial Blood Glucose 189 mg/dL (65-95) H 10/25/20 15:15 Arterial Blood Ionized Calcium 4.4 mg/dL (4.6-5.3) L 10/25/20 15:15 Urine Eosinophils None seen (None Seen) 10/14/20 Unknown Urine Osmolality 223 Mosm/kg 10/07/20 Unknown Urine Creatinine 144.2 mg/dL (0.1-20.0) H 10/14/20 Unknown Protein/Creatinin Ratio 0.67 10/14/20 Unknown Urine Sodium 10 mmol/L 10/14/20 Unknown Urine Total Protein 97 mg/dL (5-11.8) H 10/14/20 Unknown Salicylates < 0.3 mg/dL (2.8-20.0) L 10/02/20 23:17 Acetaminophen 5.0 ug/mL (10.0-30.0) L 10/02/20 23:17 Plasma/Serum Alcohol < 0.01 % (0-0.07) 10/02/20 23:17 Coronavirus (PCR) Negative (Negative) 10/14/20 08:00 Hepatitis A IgM Ab Non-reactive (NonReactive) 10/24/20 15:28 Hep Bs Antigen Nonreactive (Negative) 10/24/20 15:28 Hep B Core IgM Ab Non-reactive (NonReactive) 10/24/20 15:28 Hepatitis C Antibody Non-reactive (NonReactive) 10/24/20 15:28 Blood Type O POSITIVE 10/22/20 15:05 Antibody Screen Negative 10/18/20 19:08 Crossmatch See Detail 10/18/20 19:08 Jackson/IV: Voiding Method Indwelling Catheter Active Medications - Current Medications Current Medications: Generic Name Dose Route Start Last Admin Trade Name Freq PRN Reason Stop Dose Admin Acetaminophen 650 mg 10/03/20 02:10 10/06/20 15:28 Acetaminophen 325 Mg Tab PO 650 mg Q4H PRN Administration Pain MILD(1-3)/Fever >100.5/ROMERO Al Hydrox/Mg Hydrox/Simethicone 30 ml 10/03/20 02:10 Alum-Mag Hydroxide-Simethicone [phone]/5ml Oral Liqd 30 Ml PO Q4H PRN Indigestion Lipase/Protease/Amylase 1 each 10/03/20 16:51 Lipase 10,500/Protease 25,000/Amylase 43,750 (Units) Dr Reis FEEDTUBE PRN PRN For Clogged Feeding Tube Dextrose 50 ml 10/16/20 12:42 10/21/20 17:39 Dextrose 50% In Water (25gm) 50 Ml Syringe IV 50 ml Q30MIN PRN Administration Hypoglycemia Protocol Fentanyl 50 mcg 10/22/20 10:00 Fentanyl 100 Mcg/2 Ml Inj IV Q4HR PRN Pain , Severe (7-10) Ferrous Sulfate 308 mg 10/16/20 10:00 10/26/20 09:19 Ferrous Sulfate 308 Mg (62mg Elemental Iron) / 7 Ml Elixir FEEDTUBE 308 mg DAILY JOSE Administration Folic Acid 1 mg 10/03/20 10:00 10/26/20 09:18 Folic Acid 1 Mg Tab PO 1 mg QDAY JOSE Administration Hydrocortisone Sodium Succinate 50 mg 10/26/20 10:00 10/26/20 09:18 Hydrocortisone Sod Succ 100 Mg/2 Ml Vial IV 10/27/20 10:01 50 mg Q24H JOSE Administration Levetiracetam 250 mg/ Dextrose 102.5 mls @ 400 mls/hr 08/31/21 22:00 10/26/20 09:18 IV 400 mls/hr Q12HR JOSE Administration NORepinephrine/NS 8 MG-250 ML 8 mg in 250 mls @ 3.75 mls/hr 10/16/20 19:00 10/21/20 16:56 Norepinephrine/Ns 8 Mg-250 Ml (Double Conc) IV 0 mcg/min TITRATE JOSE 0 mls/hr Titration Protocol 2 MCG/MIN Magnesium Hydroxide 30 ml 10/03/20 02:10 Magnesium Hydroxide (Mom) Oral Liqd Udc PO Q4H PRN Constipation Midodrine 10 mg 10/24/20 18:00 10/26/20 09:18 Midodrine 5 Mg Tab PO 10 mg Q8H JOSE Administration Pantoprazole Sodium 40 mg 10/04/20 15:00 10/26/20 09:18 Pantoprazole 40 Mg Inj IV 40 mg QDAY JOSE Administration Promethazine HCl 25 mg 10/03/20 02:10 Promethazine 25 Mg Rect Supp PA Q6H PRN N/V IF NPO AND NO IV ACCESS Senna 8.6 mg 10/03/20 02:10 Sennosides 8.6 Mg Tab PO Q12HR PRN Constipation Simple Syrup 15 ml 10/03/20 16:51 10/19/20 02:08 Simple Syrup 15 Ml FEEDTUBE 15 ml PRN PRN Administration Hypoglycemia Simple Syrup 30 ml 10/03/20 16:51 10/16/20 22:02 Simple Syrup 15 Ml FEEDTUBE 30 ml PRN PRN Administration Hypoglycemia Sodium Bicarbonate 325 mg 10/03/20 16:51 Sodium Bicarbonate 325 Mg Tab FEEDTUBE PRN PRN For Clogged Feeding Tube Nutrition/Malnutrition Assess - Dietary Evaluation Nutrition/Malnutrition Findings: Nutrition Notes Start: 10/03/20 08:51 Freq: Status: Active Protocol: Document 10/26/20 12:33 (Rec: 10/26/20 12:38 [email or web address]) Nutrition Notes Initial or Follow up Brief Note Current Diagnosis Diabetes Other Pertinent Diagnosis AMS, hypothermia, pneu, anemia , atherosclerotic cerebrovascular disease Current Diet Nepro 1.8 at 40 ml/hr Subjective/Other Information Nepro TF back in stock. Informed RN to resume Nepro TF . Nutrition Intervention Nutrition Support: Nepro at 40ml/hour. For hyponatremia flush 50 ml q4h, once resolved resume flush at 170 ml q4h Kcal 1,728 Protein (gm) 78 Fluid (mL) 698 Goal #1 Meet at least 75% of protein and energy needs via TF Follow-Up By: 10/30/20 Additional Comments F/u: TF change and tolerance
[2020-10-26 14:05] LABS: Hematocrit 22.9 % (35.5-45.6); Hemoglobin 7.3 gm/dl (11.8-15.2); Red Blood Count 2.94 M/mm3 (3.65-5.03)
[2020-10-26 14:06] LABS: Mean Corpuscular HGB Conc 33 % (32-34); Mean Corpuscular Volume 76 fl (84-94); Platelet Count 138 K/mm3 (140-440); Red Cell Distribution Width 29.8 % (13.2-15.2)
[2020-10-27] MEDS: fentaNYL 100 MCG/2 ML INJ IV PRN (00:05)
[2020-10-27] MEDS: MIDODRINE 5 MG TAB PO SCH ×3 (01:06→16:59)
[2020-10-27 05:12] LABS: Hematocrit 21.3 % (35.5-45.6); Hemoglobin 6.9 gm/dl (11.8-15.2); Mean Corpuscular HGB Conc 33 % (32-34); Mean Corpuscular Volume 76 fl (84-94); Platelet Count 182 K/mm3 (140-440); Red Blood Count 2.79 M/mm3 (3.65-5.03); Red Cell Distribution Width 30.2 % (13.2-15.2)
[2020-10-27 05:33] LABS: Calcium 8.8 mg/dL (8.4-10.2)
[2020-10-27] MEDS: MULTIVITAMIN / MINERAL ORAL LIQUID 15 ML PO SCH (09:04)
[2020-10-27] MEDS: HYDROCORTISONE SOD SUCC 100 MG/2 ML VIAL IV SCH (09:04)
[2020-10-27] MEDS: PANTOPRAZOLE 40 MG INJ IV SCH (09:04)
[2020-10-27] MEDS: levETIRAcetam 250 MG in DEXTROSE 5% IN WATER 100 ML IV SCH ×2 (09:04→22:16)
[2020-10-27] MEDS: FERROUS SULFATE 308 MG (62mg Elemental Iron) / 7 ML ELIXIR FEEDTUBE SCH (09:04)
[2020-10-27] MEDS: FOLIC ACID 1 MG TAB PO SCH (09:05)
--- NOTE | 2020-10-27 10:13 | Progress Note ---
Assessment and Plan Acute hypoxemic respiratory failure Bilateral pneumonia Bilateral pleural effusions Bilateral pulmonary edema Acute kidney injury Acute encephalopathy Severe protein calorie malnutrition Oropharyngeal dysphagia Anemia that is microcytic Oropharyngeal dysphagia Thrombocytopenia Hyponatremia -Discontinue Jackson catheter -Transfuse 1 unit PRBC -Continue with supportive HD -Continue to monitor off antibiotics, trend WCC and temperature curve - VAP bundle addressed, aspiration precautions (HOB > 40 degrees) -Titrate supplemental oxygen to keep SpO2 88-90% - SAT and SBT daily as tolerated and per protocol Keep negative fluid balance as tolerated by hemodynamics and renal function to help facilitate weaning trials - continue glycemic control for target BG 140-180 mg while critically ill; avoid hypoglycemia - bronchodilators with pulmonary hygiene per RT - avoid nephrotoxins, renally dose all medications - prn analgesia per pain score - Maintenance of sleep-wake cycle, avoid delirium - supportive transfusions for serum Hgb < 7.0g/dl Platelet transfusions for platelet <20K -Enteric nutritional support - Stress ulcer prophylaxis - continue mobility , off loading, frequent turning per facility protocols for pressure ulcer prevention - Monitor hemodynamics closely - continue other care per attending / other consultants Based on previous conversation with the team, family want aggressive care. The patient is on minimal vent support and may benefit from early tracheostomy and PEG to facilitate weaning from MVS If we are unable to successfully liberate from MVS by Friday, will get surgery for Tracheostomy and PEG placement COVID SPECIFIC INTERVENTIONS - COVID-19 test negative CONDITION: CRITICAL PROGNOSIS: GUARDED CODE STATUS: FULL CODE The high probability of a clinically significant, sudden or life-threatening deterioration of the [respiratory, cardiovascular, & neurologic] system(s) required my full and direct attention, intervention and personal management. The aggregate critical care time was [33] minutes without overlap. Time includes spent on; [x] Data Review and interpretation [x] Patient assessment and monitoring of vital signs [x] Documentation [x] Medication orders and management Subjective Date of service: 10/27/20 Principal diagnosis: Ac hypoxemic resp failure; Pneumonia; BETSY; Ac. encephalopathy Interval history: Patient is seen today for: Acute hypoxemic respiratory failure; Pneumonia; Pleural effusions; BETSY; Acute encephalopathy; Severe protein calorie malnutrition Seen and examined at bedside; 24hour events reviewed; nursing and respiratory care staff consulted; no adverse overnight events reported to me; resting in bed; remains on MVS- low settings; off all vasopressors but on Midodrine; Remains off sedation,s/p 3 sessions of HD Hemoglobin of 6.9 this morning Objective Vital Signs - 12hr 10/26/20 10/26/20 10/26/20 22:16 22:30 22:46 Temperature Pulse Rate 89 78 86 Pulse Rate [ From Monitor] Respiratory 21 19 20 Rate Blood Pressure 100/54 100/54 98/47 O2 Sat by Pulse 89 86 86 Oximetry 10/26/20 10/26/20 10/26/20 23:00 23:15 23:30 Temperature Pulse Rate 111 H 98 H 84 Pulse Rate [ From Monitor] Respiratory 29 H 19 21 Rate Blood Pressure 98/47 96/56 96/56 O2 Sat by Pulse 94 91 84 Oximetry 10/26/20 10/26/20 10/26/20 23:36 23:42 23:45 Temperature 97.7 F Pulse Rate 96 H 85 Pulse Rate [ From Monitor] Respiratory 19 Rate Blood Pressure 89/50 89/50 O2 Sat by Pulse 94 90 Oximetry 10/27/20 10/27/20 10/27/20 00:00 00:05 00:15 Temperature Pulse Rate 108 H 87 Pulse Rate [ 98 H From Monitor] Respiratory 22 20 21 Rate Blood Pressure 89/50 100/46 O2 Sat by Pulse 93 89 Oximetry 10/27/20 10/27/20 10/27/20 00:30 00:45 01:00 Temperature Pulse Rate 87 96 H 82 Pulse Rate [ From Monitor] Respiratory 19 18 20 Rate Blood Pressure 100/46 82/59 92/53 O2 Sat by Pulse 89 86 88 Oximetry 10/27/20 10/27/20 10/27/20 01:15 01:30 01:45 Temperature Pulse Rate 100 H 95 H 97 H Pulse Rate [ From Monitor] Respiratory 20 19 17 Rate Blood Pressure 100/52 100/51 98/56 O2 Sat by Pulse 87 90 92 Oximetry 10/27/20 10/27/20 10/27/20 02:00 02:15 02:30 Temperature Pulse Rate 102 H 95 H 101 H Pulse Rate [ From Monitor] Respiratory 19 21 21 Rate Blood Pressure 98/56 99/48 99/48 O2 Sat by Pulse 90 88 91 Oximetry 10/27/20 10/27/20 10/27/20 02:45 03:00 03:15 Temperature Pulse Rate 105 H 104 H 101 H Pulse Rate [ From Monitor] Respiratory 19 26 H 20 Rate Blood Pressure 105/53 105/53 108/52 O2 Sat by Pulse 91 90 90 Oximetry 10/27/20 10/27/20 10/27/20 03:30 03:31 03:45 Temperature 98.1 F Pulse Rate 94 H 94 H Pulse Rate [ From Monitor] Respiratory 19 20 Rate Blood Pressure 108/52 101/52 O2 Sat by Pulse 88 91 Oximetry 10/27/20 10/27/20 10/27/20 03:56 04:00 04:15 Temperature Pulse Rate 88 89 97 H Pulse Rate [ 106 H From Monitor] Respiratory 20 20 Rate Blood Pressure 101/52 100/54 104/58 O2 Sat by Pulse 91 91 91 Oximetry 10/27/20 10/27/20 10/27/20 04:30 04:45 05:00 Temperature Pulse Rate 106 H 90 91 H Pulse Rate [ From Monitor] Respiratory 20 19 20 Rate Blood Pressure 104/58 97/52 97/52 O2 Sat by Pulse 89 88 90 Oximetry 10/27/20 10/27/20 10/27/20 05:15 05:30 05:46 Temperature Pulse Rate 95 H 82 89 Pulse Rate [ From Monitor] Respiratory 20 15 25 H Rate Blood Pressure 104/54 99/48 110/57 O2 Sat by Pulse 91 52 L 81 L Oximetry 10/27/20 10/27/20 10/27/20 06:00 06:15 06:30 Temperature Pulse Rate 97 H 105 H 99 H Pulse Rate [ From Monitor] Respiratory 24 23 24 Rate Blood Pressure 102/61 94/60 107/53 O2 Sat by Pulse 81 L 83 L 85 Oximetry 10/27/20 10/27/20 10/27/20 06:46 07:00 07:15 Temperature Pulse Rate 90 99 H 85 Pulse Rate [ From Monitor] Respiratory 24 23 21 Rate Blood Pressure 96/54 99/59 104/58 O2 Sat by Pulse 91 86 90 Oximetry 10/27/20 10/27/20 10/27/20 07:30 07:45 08:00 Temperature Pulse Rate 93 H 103 H 95 H Pulse Rate [ 85 From Monitor] Respiratory 22 23 20 Rate Blood Pressure 100/62 97/61 89/59 O2 Sat by Pulse 90 90 90 Oximetry 10/27/20 10/27/20 10/27/20 08:15 08:30 08:45 Temperature Pulse Rate 102 H 87 93 H Pulse Rate [ From Monitor] Respiratory 16 20 22 Rate Blood Pressure 90/61 89/59 102/54 O2 Sat by Pulse 92 92 95 Oximetry 10/27/20 10/27/20 10/27/20 09:00 09:16 09:30 Temperature Pulse Rate 100 H 99 H 103 H Pulse Rate [ From Monitor] Respiratory 21 16 25 H Rate Blood Pressure 97/55 92/52 102/54 O2 Sat by Pulse 92 90 93 Oximetry 10/27/20 10/27/20 09:45 10:01 Temperature Pulse Rate 94 H 105 H Pulse Rate [ From Monitor] Respiratory 20 Rate Blood Pressure 98/60 98/60 O2 Sat by Pulse 96 94 Oximetry Constitutional: no acute distress, other (elderly and chronically ill looking male with mildly increased respiratory effort at rest on MVS) Eyes: non-icteric ENT: oropharynx dry, other (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, RIJ HD) Neck: supple, no lymphadenopathy, no JVD, other (RIJ Vascath) Effort: mildly labored Ascultation: Bilateral: diminished breath sounds, rhonchi Percussion: Bilateral: not dull Cardiovascular: irregular rhythm (irregularly irregular) Gastrointestinal: normoactive bowel sounds, soft, non-tender, non-distended, other (Jackson catheter) Integumentary: normal Extremities: no cyanosis, pulses normal, no ischemia or petechiae, edema (1+) Neurologic: pupils equal and round, other (obeys simple commnads, squeezed my hand on the right side) Psychiatric: other CBC and BMP: 10/28/20 04:30 10/28/20 04:30 ABG, PT/INR, D-dimer: ABG ABG pH 7.478 (7.320-7.450) H 10/25/20 15:15 POC ABG pCO2 39.3 mmHg (32.0-48.0) 10/25/20 15:15 POC ABG pO2 39.0 mmHg (83-108) L 10/25/20 15:15 POC ABG HCO3 28.5 10/25/20 15:15 ABG O2 Saturation 73.5 (0-100) 10/25/20 15:15 PT/INR, D-dimer PT 20.4 Sec. (12.2-14.9) H 10/24/20 05:27 INR 1.70 (0.87-1.13) H 10/24/20 05:27 D-Dimer 1992.93 ng/mlDDU (0-234) H 10/21/20 Unknown Abnormal lab findings: Abnormal Labs 10/02/20 10/02/20 10/02/20 23:17 23:17 23:17 WBC RBC 3.31 L Hgb 6.7 L Hct 21.8 L MCV 66 L MCH 20 L MCHC 31 L RDW 31.7 H Plt Count Gilliam % (Auto) Gilliam # (Auto) Seg Neutrophils % Seg Neuts % (Manual) 79.0 H Lymphocytes % (Manual) 11.0 L Monocytes % (Manual) 10.0 H Basophils % (Manual) Nucleated RBC % Seg Neutrophils # Seg Neutrophils # Man Lymphocytes # (Manual) 0.9 L Monocytes # (Manual) Basophils # (Manual) PT 20.8 H INR 1.74 H APTT 57.6 H Fibrinogen D-Dimer ABG pH POC ABG pCO2 POC ABG pO2 ABG Hemoglobin ABG Oxyhemoglobin ABG Sodium ABG Potassium ABG Chloride ABG Glucose Sodium Potassium Chloride Carbon Dioxide BUN Creatinine Glucose 42 L POC Glucose Lactic Acid Calcium Magnesium Iron Total Bilirubin Direct Bilirubin AST ALT Alkaline Phosphatase Ammonia CK-MB (CK-2) 7.5 H CK-MB (CK-2) Rel Index 8.5 H Total Protein Albumin 2.9 L Arterial Blood Glucose Arterial Blood Ionized Calcium Urine Creatinine Urine Total Protein Salicylates Acetaminophen Crossmatch 10/02/20 10/02/20 10/02/20 23:17 23:17 23:17 WBC RBC Hgb Hct MCV MCH MCHC RDW Plt Count Gilliam % (Auto) Gilliam # (Auto) Seg Neutrophils % Seg Neuts % (Manual) Lymphocytes % (Manual) Monocytes % (Manual) Basophils % (Manual) Nucleated RBC % Seg Neutrophils # Seg Neutrophils # Man Lymphocytes # (Manual) Monocytes # (Manual) Basophils # (Manual) PT INR APTT Fibrinogen D-Dimer ABG pH POC ABG pCO2 POC ABG pO2 ABG Hemoglobin ABG Oxyhemoglobin ABG Sodium ABG Potassium ABG Chloride ABG Glucose Sodium Potassium Chloride Carbon Dioxide BUN Creatinine Glucose POC Glucose Lactic Acid 2.20 H* Calcium Magnesium Iron Total Bilirubin Direct Bilirubin AST ALT Alkaline Phosphatase Ammonia 22.0 L CK-MB (CK-2) CK-MB (CK-2) Rel Index Total Protein Albumin Arterial Blood Glucose Arterial Blood Ionized Calcium Urine Creatinine Urine Total Protein Salicylates < 0.3 L Acetaminophen Crossmatch 10/02/20 10/03/20 10/03/20 23:17 05:57 05:57 WBC RBC 2.66 L Hgb 5.3 L* Hct 17.8 L* MCV 67 L MCH 20 L MCHC 30 L RDW 32.1 H Plt Count Gilliam % (Auto) Gilliam # (Auto) Seg Neutrophils % Seg Neuts % (Manual) Lymphocytes % (Manual) 2.0 L Monocytes % (Manual) Basophils % (Manual) Nucleated RBC % 1.0 H Seg Neutrophils # Seg Neutrophils # Man 8.6 H Lymphocytes # (Manual) 0.2 L Monocytes # (Manual) Basophils # (Manual) PT INR APTT Fibrinogen D-Dimer ABG pH POC ABG pCO2 POC ABG pO2 ABG Hemoglobin ABG Oxyhemoglobin ABG Sodium ABG Potassium ABG Chloride ABG Glucose Sodium Potassium Chloride Carbon Dioxide BUN Creatinine Glucose POC Glucose Lactic Acid Calcium Magnesium Iron Total Bilirubin Direct Bilirubin AST ALT Alkaline Phosphatase Ammonia CK-MB (CK-2) CK-MB (CK-2) Rel Index Total Protein Albumin Arterial Blood Glucose Arterial Blood Ionized Calcium Urine Creatinine Urine Total Protein Salicylates Acetaminophen 5.0 L Crossmatch See Detail 10/03/20 10/03/20 10/03/20 05:57 05:57 06:00 WBC RBC Hgb Hct MCV MCH MCHC RDW Plt Count Gilliam % (Auto) Gilliam # (Auto) Seg Neutrophils % Seg Neuts % (Manual) Lymphocytes % (Manual) Monocytes % (Manual) Basophils % (Manual) Nucleated RBC % Seg Neutrophils # Seg Neutrophils # Man Lymphocytes # (Manual) Monocytes # (Manual) Basophils # (Manual) PT INR APTT Fibrinogen D-Dimer ABG pH POC ABG pCO2 POC ABG pO2 ABG Hemoglobin ABG Oxyhemoglobin ABG Sodium ABG Potassium ABG Chloride ABG Glucose Sodium Potassium Chloride Carbon Dioxide BUN Creatinine Glucose 52 L POC Glucose 31 L Lactic Acid Calcium Magnesium Iron 42 L Total Bilirubin Direct Bilirubin AST ALT Alkaline Phosphatase Ammonia CK-MB (CK-2) CK-MB (CK-2) Rel Index Total Protein 5.8 L Albumin 3.1 L Arterial Blood Glucose Arterial Blood Ionized Calcium Urine Creatinine Urine Total Protein Salicylates Acetaminophen Crossmatch 10/03/20 10/03/20 10/03/20 07:34 09:43 10:57 WBC RBC Hgb Hct MCV MCH MCHC RDW Plt Count Gilliam % (Auto) Gilliam # (Auto) Seg Neutrophils % Seg Neuts % (Manual) Lymphocytes % (Manual) Monocytes % (Manual) Basophils % (Manual) Nucleated RBC % Seg Neutrophils # Seg Neutrophils # Man Lymphocytes # (Manual) Monocytes # (Manual) Basophils # (Manual) PT INR APTT Fibrinogen D-Dimer ABG pH POC ABG pCO2 POC ABG pO2 ABG Hemoglobin ABG Oxyhemoglobin ABG Sodium ABG Potassium ABG Chloride ABG Glucose Sodium Potassium Chloride Carbon Dioxide BUN Creatinine Glucose POC Glucose 59 L 41 L 31 L Lactic Acid Calcium Magnesium Iron Total Bilirubin Direct Bilirubin AST ALT Alkaline Phosphatase Ammonia CK-MB (CK-2) CK-MB (CK-2) Rel Index Total Protein Albumin Arterial Blood Glucose Arterial Blood Ionized Calcium Urine Creatinine Urine Total Protein Salicylates Acetaminophen Crossmatch 10/03/20 10/03/20 10/03/20 11:21 12:00 12:14 WBC RBC Hgb Hct MCV MCH MCHC RDW Plt Count Gilliam % (Auto) Gilliam # (Auto) Seg Neutrophils % Seg Neuts % (Manual) Lymphocytes % (Manual) Monocytes % (Manual) Basophils % (Manual) Nucleated RBC % Seg Neutrophils # Seg Neutrophils # Man Lymphocytes # (Manual) Monocytes # (Manual) Basophils # (Manual) PT INR APTT Fibrinogen D-Dimer ABG pH POC ABG pCO2 POC ABG pO2 ABG Hemoglobin ABG Oxyhemoglobin ABG Sodium ABG Potassium ABG Chloride ABG Glucose Sodium Potassium Chloride Carbon Dioxide BUN Creatinine Glucose POC Glucose 62 L 26 L 140 H Lactic Acid Calcium Magnesium Iron Total Bilirubin Direct Bilirubin AST ALT Alkaline Phosphatase Ammonia CK-MB (CK-2) CK-MB (CK-2) Rel Index Total Protein Albumin Arterial Blood Glucose Arterial Blood Ionized Calcium Urine Creatinine Urine Total Protein Salicylates Acetaminophen Crossmatch 10/03/20 10/03/20 10/03/20 13:33 14:19 14:59 WBC RBC Hgb Hct MCV MCH MCHC RDW Plt Count Gilliam % (Auto) Gilliam # (Auto) Seg Neutrophils % Seg Neuts % (Manual) Lymphocytes % (Manual) Monocytes % (Manual) Basophils % (Manual) Nucleated RBC % Seg Neutrophils # Seg Neutrophils # Man Lymphocytes # (Manual) Monocytes # (Manual) Basophils # (Manual) PT INR APTT Fibrinogen D-Dimer ABG pH POC ABG pCO2 POC ABG pO2 ABG Hemoglobin ABG Oxyhemoglobin ABG Sodium ABG Potassium ABG Chloride ABG Glucose Sodium Potassium Chloride Carbon Dioxide BUN Creatinine Glucose POC Glucose 24 L 59 L 40 L Lactic Acid Calcium Magnesium Iron Total Bilirubin Direct Bilirubin AST ALT Alkaline Phosphatase Ammonia CK-MB (CK-2) CK-MB (CK-2) Rel Index Total Protein Albumin Arterial Blood Glucose Arterial Blood Ionized Calcium Urine Creatinine Urine Total Protein Salicylates Acetaminophen Crossmatch 10/03/20 10/03/20 10/03/20 15:26 15:57 16:35 WBC RBC Hgb Hct MCV MCH MCHC RDW Plt Count Gilliam % (Auto) Gilliam # (Auto) Seg Neutrophils % Seg Neuts % (Manual) Lymphocytes % (Manual) Monocytes % (Manual) Basophils % (Manual) Nucleated RBC % Seg Neutrophils # Seg Neutrophils # Man Lymphocytes # (Manual) Monocytes # (Manual) Basophils # (Manual) PT INR APTT Fibrinogen D-Dimer ABG pH POC ABG pCO2 POC ABG pO2 ABG Hemoglobin ABG Oxyhemoglobin ABG Sodium ABG Potassium ABG Chloride ABG Glucose Sodium Potassium Chloride Carbon Dioxide BUN Creatinine Glucose POC Glucose 54 L 45 L 42 L Lactic Acid Calcium Magnesium Iron Total Bilirubin Direct Bilirubin AST ALT Alkaline Phosphatase Ammonia CK-MB (CK-2) CK-MB (CK-2) Rel Index Total Protein Albumin Arterial Blood Glucose Arterial Blood Ionized Calcium Urine Creatinine Urine Total Protein Salicylates Acetaminophen Crossmatch 10/03/20 10/03/20 10/03/20 17:16 18:37 19:56 WBC RBC Hgb Hct MCV MCH MCHC RDW Plt Count Gilliam % (Auto) Gilliam # (Auto) Seg Neutrophils % Seg Neuts % (Manual) Lymphocytes % (Manual) Monocytes % (Manual) Basophils % (Manual) Nucleated RBC % Seg Neutrophils # Seg Neutrophils # Man Lymphocytes # (Manual) Monocytes # (Manual) Basophils # (Manual) PT INR APTT Fibrinogen D-Dimer ABG pH POC ABG pCO2 POC ABG pO2 ABG Hemoglobin ABG Oxyhemoglobin ABG Sodium ABG Potassium ABG Chloride ABG Glucose Sodium Potassium Chloride Carbon Dioxide BUN Creatinine Glucose POC Glucose 41 L 46 L 57 L Lactic Acid Calcium Magnesium Iron Total Bilirubin Direct Bilirubin AST ALT Alkaline Phosphatase Ammonia CK-MB (CK-2) CK-MB (CK-2) Rel Index Total Protein Albumin Arterial Blood Glucose Arterial Blood Ionized Calcium Urine Creatinine Urine Total Protein Salicylates Acetaminophen Crossmatch 10/03/20 10/04/20 10/04/20 21:32 01:04 01:11 WBC RBC Hgb 9.6 L D Hct 28.3 L D MCV MCH MCHC RDW Plt Count Gilliam % (Auto) Gilliam # (Auto) Seg Neutrophils % Seg Neuts % (Manual) Lymphocytes % (Manual) Monocytes % (Manual) Basophils % (Manual) Nucleated RBC % Seg Neutrophils # Seg Neutrophils # Man Lymphocytes # (Manual) Monocytes # (Manual) Basophils # (Manual) PT INR APTT Fibrinogen D-Dimer ABG pH POC ABG pCO2 POC ABG pO2 ABG Hemoglobin ABG Oxyhemoglobin ABG Sodium ABG Potassium ABG Chloride ABG Glucose Sodium Potassium Chloride Carbon Dioxide BUN Creatinine Glucose POC Glucose 65 L 51 L Lactic Acid Calcium Magnesium Iron Total Bilirubin Direct Bilirubin AST ALT Alkaline Phosphatase Ammonia CK-MB (CK-2) CK-MB (CK-2) Rel Index Total Protein Albumin Arterial Blood Glucose Arterial Blood Ionized Calcium Urine Creatinine Urine Total Protein Salicylates Acetaminophen Crossmatch 10/04/20 10/04/20 10/04/20 05:59 05:59 15:10 WBC 13.4 H RBC Hgb 9.9 L 10.1 L Hct 32.0 L 31.8 L MCV 76 L MCH 24 L MCHC 31 L RDW 31.3 H Plt Count Gilliam % (Auto) Gilliam # (Auto) Seg Neutrophils % Seg Neuts % (Manual) 86.0 H Lymphocytes % (Manual) 6.0 L Monocytes % (Manual) 8.0 H Basophils % (Manual) Nucleated RBC % 2.0 H Seg Neutrophils # Seg Neutrophils # Man 11.5 H Lymphocytes # (Manual) 0.8 L Monocytes # (Manual) 1.1 H Basophils # (Manual) PT INR APTT Fibrinogen D-Dimer ABG pH POC ABG pCO2 POC ABG pO2 ABG Hemoglobin ABG Oxyhemoglobin ABG Sodium ABG Potassium ABG Chloride ABG Glucose Sodium 136 L Potassium 3.5 L Chloride Carbon Dioxide 19 L D BUN Creatinine Glucose POC Glucose Lactic Acid Calcium Magnesium Iron Total Bilirubin Direct Bilirubin AST ALT Alkaline Phosphatase Ammonia CK-MB (CK-2) CK-MB (CK-2) Rel Index Total Protein Albumin 2.6 L Arterial Blood Glucose Arterial Blood Ionized Calcium Urine Creatinine Urine Total Protein Salicylates Acetaminophen Crossmatch 10/04/20 10/04/20 10/05/20 16:28 22:33 04:43 WBC RBC Hgb 10.5 L Hct 32.5 L MCV MCH MCHC RDW Plt Count Gilliam % (Auto) Gilliam # (Auto) Seg Neutrophils % Seg Neuts % (Manual) Lymphocytes % (Manual) Monocytes % (Manual) Basophils % (Manual) Nucleated RBC % Seg Neutrophils # Seg Neutrophils # Man Lymphocytes # (Manual) Monocytes # (Manual) Basophils # (Manual) PT INR APTT Fibrinogen D-Dimer ABG pH POC ABG pCO2 POC ABG pO2 ABG Hemoglobin ABG Oxyhemoglobin ABG Sodium ABG Potassium ABG Chloride ABG Glucose Sodium Potassium Chloride Carbon Dioxide BUN Creatinine Glucose POC Glucose 66 L 113 H Lactic Acid Calcium Magnesium Iron Total Bilirubin Direct Bilirubin AST ALT Alkaline Phosphatase Ammonia CK-MB (CK-2) CK-MB (CK-2) Rel Index Total Protein Albumin Arterial Blood Glucose Arterial Blood Ionized Calcium Urine Creatinine Urine Total Protein Salicylates Acetaminophen Crossmatch 10/05/20 10/05/20 10/05/20 05:00 09:42 11:57 WBC RBC Hgb 9.8 L Hct 30.5 L MCV 74 L MCH 24 L MCHC RDW 31.6 H Plt Count Gilliam % (Auto) Gilliam # (Auto) Seg Neutrophils % Seg Neuts % (Manual) Lymphocytes % (Manual) Monocytes % (Manual) Basophils % (Manual) Nucleated RBC % Seg Neutrophils # Seg Neutrophils # Man Lymphocytes # (Manual) Monocytes # (Manual) Basophils # (Manual) PT INR APTT Fibrinogen D-Dimer ABG pH POC ABG pCO2 POC ABG pO2 ABG Hemoglobin ABG Oxyhemoglobin ABG Sodium ABG Potassium ABG Chloride ABG Glucose Sodium 132 L Potassium 3.5 L Chloride Carbon Dioxide 19 L BUN Creatinine 0.7 L Glucose POC Glucose 129 H Lactic Acid Calcium Magnesium Iron Total Bilirubin Direct Bilirubin AST ALT Alkaline Phosphatase Ammonia CK-MB (CK-2) CK-MB (CK-2) Rel Index Total Protein Albumin Arterial Blood Glucose Arterial Blood Ionized Calcium Urine Creatinine Urine Total Protein Salicylates Acetaminophen Crossmatch 10/05/20 10/05/20 10/06/20 16:47 21:51 05:07 WBC RBC Hgb 9.4 L Hct 30.1 L MCV 76 L MCH 24 L MCHC 31 L RDW 31.1 H Plt Count Gilliam % (Auto) Gilliam # (Auto) Seg Neutrophils % Seg Neuts % (Manual) Lymphocytes % (Manual) Monocytes % (Manual) Basophils % (Manual) Nucleated RBC % Seg Neutrophils # Seg Neutrophils # Man Lymphocytes # (Manual) Monocytes # (Manual) Basophils # (Manual) PT INR APTT Fibrinogen D-Dimer ABG pH POC ABG pCO2 POC ABG pO2 ABG Hemoglobin ABG Oxyhemoglobin ABG Sodium ABG Potassium ABG Chloride ABG Glucose Sodium Potassium Chloride Carbon Dioxide BUN Creatinine Glucose POC Glucose 132 H 115 H Lactic Acid Calcium Magnesium Iron Total Bilirubin Direct Bilirubin AST ALT Alkaline Phosphatase Ammonia CK-MB (CK-2) CK-MB (CK-2) Rel Index Total Protein Albumin Arterial Blood Glucose Arterial Blood Ionized Calcium Urine Creatinine Urine Total Protein Salicylates Acetaminophen Crossmatch 10/06/20 10/06/20 10/06/20 05:07 15:37 21:01 WBC RBC Hgb Hct MCV MCH MCHC RDW Plt Count Gilliam % (Auto) Gilliam # (Auto) Seg Neutrophils % Seg Neuts % (Manual) Lymphocytes % (Manual) Monocytes % (Manual) Basophils % (Manual) Nucleated RBC % Seg Neutrophils # Seg Neutrophils # Man Lymphocytes # (Manual) Monocytes # (Manual) Basophils # (Manual) PT INR APTT Fibrinogen D-Dimer ABG pH POC ABG pCO2 POC ABG pO2 ABG Hemoglobin ABG Oxyhemoglobin ABG Sodium ABG Potassium ABG Chloride ABG Glucose Sodium 133 L Potassium 3.5 L Chloride Carbon Dioxide 21 L BUN Creatinine 0.6 L Glucose 105 H POC Glucose 136 H 108 H Lactic Acid Calcium Magnesium Iron Total Bilirubin Direct Bilirubin AST ALT Alkaline Phosphatase Ammonia CK-MB (CK-2) CK-MB (CK-2) Rel Index Total Protein Albumin Arterial Blood Glucose Arterial Blood Ionized Calcium Urine Creatinine Urine Total Protein Salicylates Acetaminophen Crossmatch 10/07/20 10/07/20 10/07/20 04:52 04:52 06:07 WBC RBC Hgb 9.6 L Hct 29.4 L MCV 73 L MCH 24 L MCHC RDW 32.2 H Plt Count Gilliam % (Auto) Gilliam # (Auto) Seg Neutrophils % Seg Neuts % (Manual) Lymphocytes % (Manual) Monocytes % (Manual) Basophils % (Manual) Nucleated RBC % Seg Neutrophils # Seg Neutrophils # Man Lymphocytes # (Manual) Monocytes # (Manual) Basophils # (Manual) PT INR APTT Fibrinogen D-Dimer ABG pH POC ABG pCO2 POC ABG pO2 ABG Hemoglobin ABG Oxyhemoglobin ABG Sodium ABG Potassium ABG Chloride ABG Glucose Sodium 128 L Potassium Chloride Carbon Dioxide 20 L BUN Creatinine 0.7 L Glucose POC Glucose 110 H Lactic Acid Calcium Magnesium Iron Total Bilirubin Direct Bilirubin AST ALT Alkaline Phosphatase Ammonia CK-MB (CK-2) CK-MB (CK-2) Rel Index Total Protein Albumin Arterial Blood Glucose Arterial Blood Ionized Calcium Urine Creatinine Urine Total Protein Salicylates Acetaminophen Crossmatch 10/07/20 10/07/20 10/07/20 17:09 18:53 20:35 WBC RBC Hgb Hct MCV MCH MCHC RDW Plt Count Gilliam % (Auto) Gilliam # (Auto) Seg Neutrophils % Seg Neuts % (Manual) Lymphocytes % (Manual) Monocytes % (Manual) Basophils % (Manual) Nucleated RBC % Seg Neutrophils # Seg Neutrophils # Man Lymphocytes # (Manual) Monocytes # (Manual) Basophils # (Manual) PT INR APTT Fibrinogen D-Dimer ABG pH POC ABG pCO2 POC ABG pO2 ABG Hemoglobin ABG Oxyhemoglobin ABG Sodium ABG Potassium ABG Chloride ABG Glucose Sodium Potassium Chloride Carbon Dioxide BUN Creatinine Glucose POC Glucose 67 L 66 L 62 L Lactic Acid Calcium Magnesium Iron Total Bilirubin Direct Bilirubin AST ALT Alkaline Phosphatase Ammonia CK-MB (CK-2) CK-MB (CK-2) Rel Index Total Protein Albumin Arterial Blood Glucose Arterial Blood Ionized Calcium Urine Creatinine Urine Total Protein Salicylates Acetaminophen Crossmatch 10/07/20 10/08/20 10/08/20 21:55 05:00 05:00 WBC RBC Hgb 9.6 L Hct 29.4 L MCV 73 L MCH 24 L MCHC RDW 32.4 H Plt Count Gilliam % (Auto) Gilliam # (Auto) Seg Neutrophils % 80.6 H Seg Neuts % (Manual) 88.0 H Lymphocytes % (Manual) 9.0 L Monocytes % (Manual) Basophils % (Manual) Nucleated RBC % 5.0 H Seg Neutrophils # Seg Neutrophils # Man Lymphocytes # (Manual) 0.5 L Monocytes # (Manual) Basophils # (Manual) PT INR APTT Fibrinogen D-Dimer ABG pH POC ABG pCO2 POC ABG pO2 ABG Hemoglobin ABG Oxyhemoglobin ABG Sodium ABG Potassium ABG Chloride ABG Glucose Sodium 126 L Potassium Chloride 96.3 L Carbon Dioxide BUN Creatinine 0.7 L Glucose POC Glucose 132 H Lactic Acid Calcium Magnesium Iron Total Bilirubin Direct Bilirubin AST ALT Alkaline Phosphatase Ammonia CK-MB (CK-2) CK-MB (CK-2) Rel Index Total Protein Albumin Arterial Blood Glucose Arterial Blood Ionized Calcium Urine Creatinine Urine Total Protein Salicylates Acetaminophen Crossmatch 10/08/20 10/09/20 10/09/20 22:26 01:36 02:22 WBC RBC Hgb Hct MCV MCH MCHC RDW Plt Count [place] % (Auto) Gilliam # (Auto) Seg Neutrophils % Seg Neuts % (Manual) Lymphocytes % (Manual) Monocytes % (Manual) Basophils % (Manual) Nucleated RBC % Seg Neutrophils # Seg Neutrophils # Man Lymphocytes # (Manual) Monocytes # (Manual) Basophils # (Manual) PT INR APTT Fibrinogen D-Dimer ABG pH POC ABG pCO2 POC ABG pO2 ABG Hemoglobin ABG Oxyhemoglobin ABG Sodium ABG Potassium ABG Chloride ABG Glucose Sodium Potassium Chloride Carbon Dioxide BUN Creatinine Glucose POC Glucose 63 L 62 L 151 H Lactic Acid Calcium Magnesium Iron Total Bilirubin Direct Bilirubin AST ALT Alkaline Phosphatase Ammonia CK-MB (CK-2) CK-MB (CK-2) Rel Index Total Protein Albumin Arterial Blood Glucose Arterial Blood Ionized Calcium Urine Creatinine Urine Total Protein Salicylates Acetaminophen Crossmatch 10/09/20 10/09/20 10/09/20 05:07 05:42 06:32 WBC RBC Hgb 10.3 L Hct 33.8 L MCV 77 L MCH 24 L MCHC 31 L RDW 33.6 H Plt Count 137 L [place] % (Auto) [place]illiam # (Auto) Seg Neutrophils % Seg Neuts % (Manual) 89.0 H Lymphocytes % (Manual) 5.0 L Monocytes % (Manual) Basophils % (Manual) Nucleated RBC % 4.0 H Seg Neutrophils # Seg Neutrophils # Man 9.4 H Lymphocytes # (Manual) 0.5 L Monocytes # (Manual) Basophils # (Manual) PT INR APTT Fibrinogen D-Dimer ABG pH POC ABG pCO2 POC ABG pO2 ABG Hemoglobin ABG Oxyhemoglobin ABG Sodium ABG Potassium ABG Chloride ABG Glucose Sodium 126 L Potassium Chloride 97.8 L Carbon Dioxide 20 L BUN Creatinine Glucose 58 L POC Glucose 48 L Lactic Acid Calcium Magnesium Iron Total Bilirubin Direct Bilirubin AST ALT Alkaline Phosphatase Ammonia CK-MB (CK-2) CK-MB (CK-2) Rel Index Total Protein Albumin Arterial Blood Glucose Arterial Blood Ionized Calcium Urine Creatinine Urine Total Protein Salicylates Acetaminophen Crossmatch 10/09/20 10/10/20 10/10/20 06:35 00:21 05:53 WBC RBC Hgb Hct MCV MCH MCHC RDW Plt Count [place] % (Auto) [place] # (Auto) Seg Neutrophils % Seg Neuts % (Manual) Lymphocytes % (Manual) Monocytes % (Manual) Basophils % (Manual) Nucleated RBC % Seg Neutrophils # Seg Neutrophils # Man Lymphocytes # (Manual) Monocytes # (Manual) Basophils # (Manual) PT INR APTT Fibrinogen D-Dimer ABG pH POC ABG pCO2 POC ABG pO2 ABG Hemoglobin ABG Oxyhemoglobin ABG Sodium ABG Potassium ABG Chloride ABG Glucose Sodium Potassium Chloride Carbon Dioxide BUN Creatinine Glucose POC Glucose 106 H 153 H 34 L Lactic Acid Calcium Magnesium Iron Total Bilirubin Direct Bilirubin AST ALT Alkaline Phosphatase Ammonia CK-MB (CK-2) CK-MB (CK-2) Rel Index Total Protein Albumin Arterial Blood Glucose Arterial Blood Ionized Calcium Urine Creatinine Urine Total Protein Salicylates Acetaminophen Crossmatch 10/10/20 10/10/20 10/10/20 10:58 10:58 12:39 WBC RBC Hgb 10.3 L Hct 33.9 L MCV 78 L MCH 24 L MCHC 30 L RDW 33.2 H Plt Count 135 L [place] % (Auto) [place]am # (Auto) Seg Neutrophils % Seg Neuts % (Manual) 74.0 H Lymphocytes % (Manual) 12.0 L Monocytes % (Manual) 9.0 H Basophils % (Manual) 2.0 H Nucleated RBC % Seg Neutrophils # Seg Neutrophils # Man Lymphocytes # (Manual) 1.0 L Monocytes # (Manual) Basophils # (Manual) 0.2 H PT INR APTT Fibrinogen D-Dimer ABG pH POC ABG pCO2 POC ABG pO2 ABG Hemoglobin ABG Oxyhemoglobin ABG Sodium ABG Potassium ABG Chloride ABG Glucose Sodium 127 L Potassium Chloride Carbon Dioxide 20 L BUN 23 H Creatinine Glucose POC Glucose 108 H Lactic Acid Calcium Magnesium Iron Total Bilirubin Direct Bilirubin AST ALT Alkaline Phosphatase Ammonia CK-MB (CK-2) CK-MB (CK-2) Rel Index Total Protein Albumin Arterial Blood Glucose Arterial Blood Ionized Calcium Urine Creatinine Urine Total Protein Salicylates Acetaminophen Crossmatch 10/10/20 10/11/20 10/11/20 16:51 04:56 05:51 WBC RBC Hgb 9.5 L Hct 31.3 L MCV 77 L MCH 23 L MCHC 30 L RDW 33.7 H Plt Count [place] % (Auto) [place] # (Auto) Seg Neutrophils % Seg Neuts % (Manual) 95.0 H Lymphocytes % (Manual) 2.0 L Monocytes % (Manual) Basophils % (Manual) Nucleated RBC % 3.0 H Seg Neutrophils # Seg Neutrophils # Man 8.0 H Lymphocytes # (Manual) 0.2 L Monocytes # (Manual) Basophils # (Manual) PT INR APTT Fibrinogen D-Dimer ABG pH POC ABG pCO2 POC ABG pO2 ABG Hemoglobin ABG Oxyhemoglobin ABG Sodium ABG Potassium ABG Chloride ABG Glucose Sodium Potassium Chloride Carbon Dioxide BUN Creatinine Glucose POC Glucose 142 H 124 H Lactic Acid Calcium Magnesium Iron Total Bilirubin Direct Bilirubin AST ALT Alkaline Phosphatase Ammonia CK-MB (CK-2) CK-MB (CK-2) Rel Index Total Protein Albumin Arterial Blood Glucose Arterial Blood Ionized Calcium Urine Creatinine Urine Total Protein Salicylates Acetaminophen Crossmatch 10/11/20 10/11/20 10/12/20 05:51 11:56 04:53 WBC RBC Hgb 9.5 L Hct 30.0 L MCV 75 L MCH 24 L MCHC RDW 32.8 H Plt Count 136 L [place] % (Auto) [place] # (Auto) Seg Neutrophils % Seg Neuts % (Manual) 89.0 H Lymphocytes % (Manual) 5.0 L Monocytes % (Manual) Basophils % (Manual) Nucleated RBC % Seg Neutrophils # Seg Neutrophils # Man Lymphocytes # (Manual) 0.4 L Monocytes # (Manual) Basophils # (Manual) PT INR APTT Fibrinogen D-Dimer ABG pH POC ABG pCO2 POC ABG pO2 ABG Hemoglobin ABG Oxyhemoglobin ABG Sodium ABG Potassium ABG Chloride ABG Glucose Sodium 130 L Potassium Chloride Carbon Dioxide 18 L BUN 23 H Creatinine Glucose POC Glucose 126 H Lactic Acid Calcium Magnesium Iron Total Bilirubin Direct Bilirubin AST ALT Alkaline Phosphatase Ammonia CK-MB (CK-2) CK-MB (CK-2) Rel Index Total Protein Albumin Arterial Blood Glucose Arterial Blood Ionized Calcium Urine Creatinine Urine Total Protein Salicylates Acetaminophen Crossmatch 10/12/20 10/12/20 10/12/20 04:53 11:42 23:49 WBC RBC Hgb Hct MCV MCH MCHC RDW Plt Count [place] % (Auto) [place] # (Auto) Seg Neutrophils % Seg Neuts % (Manual) Lymphocytes % (Manual) Monocytes % (Manual) Basophils % (Manual) Nucleated RBC % Seg Neutrophils # Seg Neutrophils # Man Lymphocytes # (Manual) Monocytes # (Manual) Basophils # (Manual) PT INR APTT Fibrinogen D-Dimer ABG pH POC ABG pCO2 POC ABG pO2 ABG Hemoglobin ABG Oxyhemoglobin ABG Sodium ABG Potassium ABG Chloride ABG Glucose Sodium 130 L Potassium Chloride Carbon Dioxide 18 L BUN 25 H Creatinine Glucose 74 L POC Glucose 59 L 51 L Lactic Acid Calcium Magnesium Iron Total Bilirubin Direct Bilirubin AST ALT Alkaline Phosphatase Ammonia CK-MB (CK-2) CK-MB (CK-2) Rel Index Total Protein Albumin Arterial Blood Glucose Arterial Blood Ionized Calcium Urine Creatinine Urine Total Protein Salicylates Acetaminophen Crossmatch 10/13/20 10/13/20 10/13/20 03:17 05:24 05:24 WBC RBC Hgb 9.4 L Hct 29.4 L MCV 75 L MCH 24 L MCHC RDW 32.9 H Plt Count 95 L [place] % (Auto) [place] # (Auto) Seg Neutrophils % Seg Neuts % (Manual) 90.0 H Lymphocytes % (Manual) Monocytes % (Manual) Basophils % (Manual) Nucleated RBC % 2.0 H Seg Neutrophils # Seg Neutrophils # Man 9.5 H Lymphocytes # (Manual) 0.0 L Monocytes # (Manual) Basophils # (Manual) PT INR APTT Fibrinogen D-Dimer ABG pH POC ABG pCO2 POC ABG pO2 ABG Hemoglobin ABG Oxyhemoglobin ABG Sodium ABG Potassium ABG Chloride ABG Glucose Sodium 132 L Potassium Chloride Carbon Dioxide 17 L BUN 26 H Creatinine 1.6 H Glucose POC Glucose 67 L Lactic Acid Calcium Magnesium Iron Total Bilirubin Direct Bilirubin AST ALT Alkaline Phosphatase Ammonia CK-MB (CK-2) CK-MB (CK-2) Rel Index Total Protein Albumin Arterial Blood Glucose Arterial Blood Ionized Calcium Urine Creatinine Urine Total Protein Salicylates Acetaminophen Crossmatch 10/13/20 10/14/20 10/14/20 11:36 05:04 05:04 WBC 17.4 H RBC Hgb 9.3 L Hct 29.3 L MCV 76 L MCH 24 L MCHC RDW 33.8 H Plt Count 83 L [place] % (Auto) [place] # (Auto) Seg Neutrophils % Seg Neuts % (Manual) 89.0 H Lymphocytes % (Manual) 4.0 L Monocytes % (Manual) Basophils % (Manual) Nucleated RBC % 1.0 H Seg Neutrophils # Seg Neutrophils # Man 15.5 H Lymphocytes # (Manual) 0.7 L Monocytes # (Manual) Basophils # (Manual) PT INR APTT Fibrinogen D-Dimer ABG pH POC ABG pCO2 POC ABG pO2 ABG Hemoglobin ABG Oxyhemoglobin ABG Sodium ABG Potassium ABG Chloride ABG Glucose Sodium 132 L Potassium 5.3 H Chloride 108.7 H Carbon Dioxide 15 L BUN 25 H Creatinine 1.5 H Glucose POC Glucose 58 L Lactic Acid Calcium Magnesium Iron Total Bilirubin Direct Bilirubin AST ALT Alkaline Phosphatase Ammonia CK-MB (CK-2) CK-MB (CK-2) Rel Index Total Protein Albumin Arterial Blood Glucose Arterial Blood Ionized Calcium Urine Creatinine Urine Total Protein Salicylates Acetaminophen Crossmatch 10/14/20 10/14/20 10/14/20 05:41 08:19 15:34 WBC RBC Hgb Hct MCV MCH MCHC RDW Plt Count [place] % (Auto) [place] # (Auto) Seg Neutrophils % Seg Neuts % (Manual) Lymphocytes % (Manual) Monocytes % (Manual) Basophils % (Manual) Nucleated RBC % Seg Neutrophils # Seg Neutrophils # Man Lymphocytes # (Manual) Monocytes # (Manual) Basophils # (Manual) PT INR APTT Fibrinogen D-Dimer ABG pH POC ABG pCO2 POC ABG pO2 ABG Hemoglobin ABG Oxyhemoglobin ABG Sodium ABG Potassium ABG Chloride ABG Glucose Sodium 134 L Potassium 5.2 H Chloride 111.1 H Carbon Dioxide 16 L BUN 25 H Creatinine 1.5 H Glucose POC Glucose 58 L 120 H Lactic Acid Calcium Magnesium Iron Total Bilirubin Direct Bilirubin AST ALT Alkaline Phosphatase Ammonia CK-MB (CK-2) CK-MB (CK-2) Rel Index Total Protein Albumin Arterial Blood Glucose Arterial Blood Ionized Calcium Urine Creatinine Urine Total Protein Salicylates Acetaminophen Crossmatch 10/14/20 10/15/20 10/15/20 Unknown 05:50 05:50 WBC 14.1 H RBC Hgb 9.4 L Hct 29.9 L MCV 76 L MCH 24 L MCHC 31 L RDW 34.2 H Plt Count 86 L [place] % (Auto) 8.3 H [place] # (Auto) 1.3 H Seg Neutrophils % 86.5 H Seg Neuts % (Manual) Lymphocytes % (Manual) 9.0 L Monocytes % (Manual) Basophils % (Manual) Nucleated RBC % 6.0 H Seg Neutrophils # 13.2 H Seg Neutrophils # Man 9.7 H Lymphocytes # (Manual) Monocytes # (Manual) Basophils # (Manual) PT INR APTT Fibrinogen D-Dimer ABG pH POC ABG pCO2 POC ABG pO2 ABG Hemoglobin ABG Oxyhemoglobin ABG Sodium ABG Potassium ABG Chloride ABG Glucose Sodium 134 L Potassium Chloride 109.9 H Carbon Dioxide 18 L BUN 26 H Creatinine 1.5 H Glucose 125 H POC Glucose Lactic Acid Calcium Magnesium Iron Total Bilirubin Direct Bilirubin AST ALT Alkaline Phosphatase Ammonia CK-MB (CK-2) CK-MB (CK-2) Rel Index Total Protein Albumin Arterial Blood Glucose Arterial Blood Ionized Calcium Urine Creatinine 144.2 H Urine Total Protein 97 H Salicylates Acetaminophen Crossmatch 10/15/20 10/15/20 10/15/20 05:55 07:36 07:59 WBC RBC Hgb Hct MCV MCH MCHC RDW Plt Count [place] % (Auto) [place] # (Auto) Seg Neutrophils % Seg Neuts % (Manual) Lymphocytes % (Manual) Monocytes % (Manual) Basophils % (Manual) Nucleated RBC % Seg Neutrophils # Seg Neutrophils # Man Lymphocytes # (Manual) Monocytes # (Manual) Basophils # (Manual) PT INR APTT Fibrinogen D-Dimer ABG pH 7.052 L POC ABG pCO2 65.0 H POC ABG pO2 214.1 H ABG Hemoglobin 10.6 L ABG Oxyhemoglobin 98.3 H ABG Sodium 130.6 L ABG Potassium ABG Chloride 110.0 H ABG Glucose 124 H Sodium Potassium Chloride Carbon Dioxide BUN Creatinine Glucose POC Glucose 113 H 114 H Lactic Acid Calcium Magnesium Iron Total Bilirubin Direct Bilirubin AST ALT Alkaline Phosphatase Ammonia CK-MB (CK-2) CK-MB (CK-2) Rel Index Total Protein Albumin Arterial Blood Glucose 124 H Arterial Blood Ionized Calcium Urine Creatinine Urine Total Protein Salicylates Acetaminophen Crossmatch 10/15/20 10/15/20 10/15/20 10:50 11:27 13:56 WBC RBC Hgb Hct MCV MCH MCHC RDW Plt Count [place] % (Auto) [place] # (Auto) Seg Neutrophils % Seg Neuts % (Manual) Lymphocytes % (Manual) Monocytes % (Manual) Basophils % (Manual) Nucleated RBC % Seg Neutrophils # Seg Neutrophils # Man Lymphocytes # (Manual) Monocytes # (Manual) Basophils # (Manual) PT INR APTT Fibrinogen D-Dimer ABG pH 7.200 L POC ABG pCO2 POC ABG pO2 123.1 H ABG Hemoglobin ABG Oxyhemoglobin ABG Sodium 131.3 L ABG Potassium 4.6 H ABG Chloride 112.0 H ABG Glucose 42 L Sodium Potassium Chloride Carbon Dioxide BUN Creatinine Glucose POC Glucose 50 L 476 H Lactic Acid Calcium Magnesium Iron Total Bilirubin Direct Bilirubin AST ALT Alkaline Phosphatase Ammonia CK-MB (CK-2) CK-MB (CK-2) Rel Index Total Protein Albumin Arterial Blood Glucose 42 L Arterial Blood Ionized Calcium Urine Creatinine Urine Total Protein Salicylates Acetaminophen Crossmatch 10/15/20 10/15/20 10/16/20 16:46 17:01 00:45 WBC RBC Hgb Hct MCV MCH MCHC RDW Plt Count [place] % (Auto) [place] # (Auto) Seg Neutrophils % Seg Neuts % (Manual) Lymphocytes % (Manual) Monocytes % (Manual) Basophils % (Manual) Nucleated RBC % Seg Neutrophils # Seg Neutrophils # Man Lymphocytes # (Manual) Monocytes # (Manual) Basophils # (Manual) PT INR APTT Fibrinogen D-Dimer ABG pH 7.250 L POC ABG pCO2 POC ABG pO2 49.8 L ABG Hemoglobin 9.3 L ABG Oxyhemoglobin 83.0 L ABG Sodium 130.2 L ABG Potassium ABG Chloride 111.0 H ABG Glucose Sodium 135 L Potassium Chloride Carbon Dioxide BUN Creatinine Glucose POC Glucose 67 L Lactic Acid Calcium Magnesium Iron Total Bilirubin Direct Bilirubin AST ALT Alkaline Phosphatase Ammonia CK-MB (CK-2) CK-MB (CK-2) Rel Index Total Protein Albumin Arterial Blood Glucose Arterial Blood Ionized Calcium Urine Creatinine Urine Total Protein Salicylates Acetaminophen Crossmatch 10/16/20 10/16/20 10/16/20 05:36 05:53 05:53 WBC 16.6 H RBC 3.52 L Hgb 8.3 L Hct 26.6 L MCV 75 L MCH 23 L MCHC 31 L RDW 33.7 H Plt Count 63 L [place] % (Auto) [place] # (Auto) Seg Neutrophils % Seg Neuts % (Manual) 93.0 H Lymphocytes % (Manual) Monocytes % (Manual) Basophils % (Manual) Nucleated RBC % 3.0 H Seg Neutrophils # Seg Neutrophils # Man 15.4 H Lymphocytes # (Manual) 0.0 L Monocytes # (Manual) Basophils # (Manual) PT INR APTT Fibrinogen D-Dimer ABG pH POC ABG pCO2 POC ABG pO2 ABG Hemoglobin ABG Oxyhemoglobin ABG Sodium ABG Potassium ABG Chloride ABG Glucose Sodium 136 L Potassium Chloride 111.9 H Carbon Dioxide 17 L BUN 29 H Creatinine 2.0 H Glucose 126 H POC Glucose 44 L Lactic Acid Calcium 8.1 L Magnesium Iron Total Bilirubin Direct Bilirubin AST ALT Alkaline Phosphatase Ammonia CK-MB (CK-2) CK-MB (CK-2) Rel Index Total Protein Albumin Arterial Blood Glucose Arterial Blood Ionized Calcium Urine Creatinine Urine Total Protein Salicylates Acetaminophen Crossmatch 10/16/20 10/16/20 10/16/20 05:53 07:26 08:07 WBC RBC Hgb Hct MCV MCH MCHC RDW Plt Count [place] % (Auto) [place] # (Auto) Seg Neutrophils % Seg Neuts % (Manual) Lymphocytes % (Manual) Monocytes % (Manual) Basophils % (Manual) Nucleated RBC % Seg Neutrophils # Seg Neutrophils # Man Lymphocytes # (Manual) Monocytes # (Manual) Basophils # (Manual) PT 24.5 H INR 2.17 H APTT Fibrinogen D-Dimer ABG pH POC ABG pCO2 POC ABG pO2 ABG Hemoglobin ABG Oxyhemoglobin ABG Sodium ABG Potassium ABG Chloride ABG Glucose Sodium Potassium Chloride Carbon Dioxide BUN Creatinine Glucose POC Glucose 58 L 51 L Lactic Acid Calcium Magnesium Iron Total Bilirubin Direct Bilirubin AST ALT Alkaline Phosphatase Ammonia CK-MB (CK-2) CK-MB (CK-2) Rel Index Total Protein Albumin Arterial Blood Glucose Arterial Blood Ionized Calcium Urine Creatinine Urine Total Protein Salicylates Acetaminophen Crossmatch 10/16/20 10/16/20 10/16/20 08:52 11:14 11:33 WBC RBC Hgb Hct MCV MCH MCHC RDW Plt Count [place] % (Auto) [place] # (Auto) Seg Neutrophils % Seg Neuts % (Manual) Lymphocytes % (Manual) Monocytes % (Manual) Basophils % (Manual) Nucleated RBC % Seg Neutrophils # Seg Neutrophils # Man Lymphocytes # (Manual) Monocytes # (Manual) Basophils # (Manual) PT INR APTT Fibrinogen D-Dimer ABG pH 7.044 L POC ABG pCO2 58.1 H POC ABG pO2 57.7 L ABG Hemoglobin 9.5 L ABG Oxyhemoglobin 81.5 L ABG Sodium 131.7 L ABG Potassium ABG Chloride 112.0 H ABG Glucose 59 L Sodium Potassium Chloride Carbon Dioxide BUN Creatinine Glucose POC Glucose 58 L Lactic Acid Calcium Magnesium Iron Total Bilirubin Direct Bilirubin AST 136 H ALT 72 H Alkaline Phosphatase 240 H Ammonia CK-MB (CK-2) CK-MB (CK-2) Rel Index Total Protein 5.1 L Albumin 2.1 L Arterial Blood Glucose 59 L Arterial Blood Ionized Calcium Urine Creatinine Urine Total Protein Salicylates Acetaminophen Crossmatch 10/16/20 10/16/20 10/16/20 12:32 13:11 13:40 WBC RBC Hgb Hct MCV MCH MCHC RDW Plt Count [place] % (Auto) [place] # (Auto) Seg Neutrophils % Seg Neuts % (Manual) Lymphocytes % (Manual) Monocytes % (Manual) Basophils % (Manual) Nucleated RBC % Seg Neutrophils # Seg Neutrophils # Man Lymphocytes # (Manual) Monocytes # (Manual) Basophils # (Manual) PT INR APTT Fibrinogen D-Dimer ABG pH POC ABG pCO2 POC ABG pO2 ABG Hemoglobin ABG Oxyhemoglobin ABG Sodium ABG Potassium ABG Chloride ABG Glucose Sodium Potassium Chloride Carbon Dioxide BUN Creatinine Glucose POC Glucose 27 L 54 L 69 L Lactic Acid Calcium Magnesium Iron Total Bilirubin Direct Bilirubin AST ALT Alkaline Phosphatase Ammonia CK-MB (CK-2) CK-MB (CK-2) Rel Index Total Protein Albumin Arterial Blood Glucose Arterial Blood Ionized Calcium Urine Creatinine Urine Total Protein Salicylates Acetaminophen Crossmatch 10/16/20 10/16/20 10/16/20 15:13 17:15 17:34 WBC RBC Hgb Hct MCV MCH MCHC RDW Plt Count [place] % (Auto) [place] # (Auto) Seg Neutrophils % Seg Neuts % (Manual) Lymphocytes % (Manual) Monocytes % (Manual) Basophils % (Manual) Nucleated RBC % Seg Neutrophils # Seg Neutrophils # Man Lymphocytes # (Manual) Monocytes # (Manual) Basophils # (Manual) PT INR APTT Fibrinogen D-Dimer ABG pH POC ABG pCO2 POC ABG pO2 ABG Hemoglobin ABG Oxyhemoglobin ABG Sodium ABG Potassium ABG Chloride ABG Glucose Sodium Potassium Chloride Carbon Dioxide BUN Creatinine Glucose POC Glucose 46 L 54 L 119 H Lactic Acid Calcium Magnesium Iron Total Bilirubin Direct Bilirubin AST ALT Alkaline Phosphatase Ammonia CK-MB (CK-2) CK-MB (CK-2) Rel Index Total Protein Albumin Arterial Blood Glucose Arterial Blood Ionized Calcium Urine Creatinine Urine Total Protein Salicylates Acetaminophen Crossmatch 10/16/20 10/16/20 10/16/20 18:51 19:37 21:00 WBC RBC Hgb Hct MCV MCH MCHC RDW Plt Count [place] % (Auto) [place] # (Auto) Seg Neutrophils % Seg Neuts % (Manual) Lymphocytes % (Manual) Monocytes % (Manual) Basophils % (Manual) Nucleated RBC % Seg Neutrophils # Seg Neutrophils # Man Lymphocytes # (Manual) Monocytes # (Manual) Basophils # (Manual) PT INR APTT Fibrinogen D-Dimer ABG pH 7.122 L POC ABG pCO2 49.8 H POC ABG pO2 62.1 L ABG Hemoglobin 9.1 L ABG Oxyhemoglobin 89.6 L ABG Sodium 130.1 L ABG Potassium 3.0 L ABG Chloride 111.0 H ABG Glucose 106 H Sodium Potassium Chloride Carbon Dioxide BUN Creatinine Glucose POC Glucose 64 L 114 H Lactic Acid Calcium Magnesium Iron Total Bilirubin Direct Bilirubin AST ALT Alkaline Phosphatase Ammonia CK-MB (CK-2) CK-MB (CK-2) Rel Index Total Protein Albumin Arterial Blood Glucose 106 H Arterial Blood Ionized Calcium Urine Creatinine Urine Total Protein Salicylates Acetaminophen Crossmatch 10/16/20 10/16/20 10/17/20 22:01 22:58 00:58 WBC RBC Hgb Hct MCV MCH MCHC RDW Plt Count [place] % (Auto) [place]am # (Auto) Seg Neutrophils % Seg Neuts % (Manual) Lymphocytes % (Manual) Monocytes % (Manual) Basophils % (Manual) Nucleated RBC % Seg Neutrophils # Seg Neutrophils # Man Lymphocytes # (Manual) Monocytes # (Manual) Basophils # (Manual) PT INR APTT Fibrinogen D-Dimer ABG pH POC ABG pCO2 POC ABG pO2 ABG Hemoglobin ABG Oxyhemoglobin ABG Sodium ABG Potassium ABG Chloride ABG Glucose Sodium 133 L Potassium 3.5 L Chloride 107.7 H Carbon Dioxide 15 L BUN 29 H Creatinine 2.6 H Glucose POC Glucose 63 L 292 H Lactic Acid Calcium 7.9 L Magnesium Iron Total Bilirubin Direct Bilirubin AST ALT Alkaline Phosphatase Ammonia CK-MB (CK-2) CK-MB (CK-2) Rel Index Total Protein Albumin Arterial Blood Glucose Arterial Blood Ionized Calcium Urine Creatinine Urine Total Protein Salicylates Acetaminophen Crossmatch 10/17/20 10/17/20 10/17/20 02:04 03:08 03:55 WBC RBC Hgb Hct MCV MCH MCHC RDW Plt Count [place] % (Auto) [place]illiam # (Auto) Seg Neutrophils % Seg Neuts % (Manual) Lymphocytes % (Manual) Monocytes % (Manual) Basophils % (Manual) Nucleated RBC % Seg Neutrophils # Seg Neutrophils # Man Lymphocytes # (Manual) Monocytes # (Manual) Basophils # (Manual) PT INR APTT Fibrinogen D-Dimer ABG pH POC ABG pCO2 POC ABG pO2 ABG Hemoglobin ABG Oxyhemoglobin ABG Sodium ABG Potassium ABG Chloride ABG Glucose Sodium Potassium Chloride Carbon Dioxide BUN Creatinine Glucose POC Glucose 200 H 173 H 161 H Lactic Acid Calcium Magnesium Iron Total Bilirubin Direct Bilirubin AST ALT Alkaline Phosphatase Ammonia CK-MB (CK-2) CK-MB (CK-2) Rel Index Total Protein Albumin Arterial Blood Glucose Arterial Blood Ionized Calcium Urine Creatinine Urine Total Protein Salicylates Acetaminophen Crossmatch 10/17/20 10/17/20 10/17/20 04:00 04:49 04:49 WBC 17.7 H RBC 3.21 L Hgb 7.5 L Hct 25.4 L MCV 79 L MCH 24 L MCHC 30 L RDW 34.0 H Plt Count 40 L [place] % (Auto) Gilliam # (Auto) Seg Neutrophils % Seg Neuts % (Manual) Lymphocytes % (Manual) 3.0 L Monocytes % (Manual) Basophils % (Manual) Nucleated RBC % 3.0 H Seg Neutrophils # Seg Neutrophils # Man 10.6 H Lymphocytes # (Manual) 0.5 L Monocytes # (Manual) 1.1 H Basophils # (Manual) PT INR APTT Fibrinogen D-Dimer ABG pH 7.116 L POC ABG pCO2 POC ABG pO2 61.1 L ABG Hemoglobin 8.4 L ABG Oxyhemoglobin 90.2 L ABG Sodium 125.0 L ABG Potassium 3.1 L ABG Chloride ABG Glucose 155 H Sodium 133 L Potassium 3.3 L Chloride Carbon Dioxide 15 L BUN 29 H Creatinine 2.7 H Glucose 138 H POC Glucose Lactic Acid Calcium 7.8 L Magnesium Iron Total Bilirubin Direct Bilirubin AST ALT Alkaline Phosphatase Ammonia CK-MB (CK-2) CK-MB (CK-2) Rel Index Total Protein Albumin Arterial Blood Glucose 155 H Arterial Blood Ionized Calcium Urine Creatinine Urine Total Protein Salicylates Acetaminophen Crossmatch 10/17/20 10/17/20 10/17/20 04:58 06:01 07:50 WBC RBC Hgb Hct MCV MCH MCHC RDW Plt Count [place] % (Auto) Gilliam # (Auto) Seg Neutrophils % Seg Neuts % (Manual) Lymphocytes % (Manual) Monocytes % (Manual) Basophils % (Manual) Nucleated RBC % Seg Neutrophils # Seg Neutrophils # Man Lymphocytes # (Manual) Monocytes # (Manual) Basophils # (Manual) PT INR APTT Fibrinogen D-Dimer ABG pH POC ABG pCO2 POC ABG pO2 ABG Hemoglobin ABG Oxyhemoglobin ABG Sodium ABG Potassium ABG Chloride ABG Glucose Sodium Potassium Chloride Carbon Dioxide BUN Creatinine Glucose POC Glucose 137 H 119 H 106 H Lactic Acid Calcium Magnesium Iron Total Bilirubin Direct Bilirubin AST ALT Alkaline Phosphatase Ammonia CK-MB (CK-2) CK-MB (CK-2) Rel Index Total Protein Albumin Arterial Blood Glucose Arterial Blood Ionized Calcium Urine Creatinine Urine Total Protein Salicylates Acetaminophen Crossmatch 10/17/20 10/17/20 10/17/20 11:50 15:11 18:11 WBC RBC Hgb Hct MCV MCH MCHC RDW Plt Count [place] % (Auto) Gilliam # (Auto) Seg Neutrophils % Seg Neuts % (Manual) Lymphocytes % (Manual) Monocytes % (Manual) Basophils % (Manual) Nucleated RBC % Seg Neutrophils # Seg Neutrophils # Man Lymphocytes # (Manual) Monocytes # (Manual) Basophils # (Manual) PT INR APTT Fibrinogen D-Dimer ABG pH POC ABG pCO2 POC ABG pO2 ABG Hemoglobin ABG Oxyhemoglobin ABG Sodium ABG Potassium ABG Chloride ABG Glucose Sodium Potassium Chloride Carbon Dioxide BUN Creatinine Glucose POC Glucose 111 H 114 H 137 H Lactic Acid Calcium Magnesium Iron Total Bilirubin Direct Bilirubin AST ALT Alkaline Phosphatase Ammonia CK-MB (CK-2) CK-MB (CK-2) Rel Index Total Protein Albumin Arterial Blood Glucose Arterial Blood Ionized Calcium Urine Creatinine Urine Total Protein Salicylates Acetaminophen Crossmatch 10/17/20 10/17/20 10/18/20 19:51 23:32 04:00 WBC RBC Hgb Hct MCV MCH MCHC RDW Plt Count [place] % (Auto) [place]illiam # (Auto) Seg Neutrophils % Seg Neuts % (Manual) Lymphocytes % (Manual) Monocytes % (Manual) Basophils % (Manual) Nucleated RBC % Seg Neutrophils # Seg Neutrophils # Man Lymphocytes # (Manual) Monocytes # (Manual) Basophils # (Manual) PT INR APTT Fibrinogen D-Dimer ABG pH 7.276 L POC ABG pCO2 POC ABG pO2 77.7 L ABG Hemoglobin 7.2 L ABG Oxyhemoglobin ABG Sodium 122.6 L ABG Potassium ABG Chloride ABG Glucose 113 H Sodium Potassium Chloride Carbon Dioxide BUN Creatinine Glucose POC Glucose 130 H 114 H Lactic Acid Calcium Magnesium Iron Total Bilirubin Direct Bilirubin AST ALT Alkaline Phosphatase Ammonia CK-MB (CK-2) CK-MB (CK-2) Rel Index Total Protein Albumin Arterial Blood Glucose 113 H Arterial Blood Ionized Calcium Urine Creatinine Urine Total Protein Salicylates Acetaminophen Crossmatch 10/18/20 10/18/20 10/18/20 04:06 04:06 04:13 WBC RBC Hgb Hct MCV MCH MCHC RDW Plt Count [place] % (Auto) Gilliam # (Auto) Seg Neutrophils % Seg Neuts % (Manual) Lymphocytes % (Manual) Monocytes % (Manual) Basophils % (Manual) Nucleated RBC % Seg Neutrophils # Seg Neutrophils # Man Lymphocytes # (Manual) Monocytes # (Manual) Basophils # (Manual) PT 23.5 H INR 2.05 H APTT Fibrinogen D-Dimer ABG pH POC ABG pCO2 POC ABG pO2 ABG Hemoglobin ABG Oxyhemoglobin ABG Sodium ABG Potassium ABG Chloride ABG Glucose Sodium 123 L D Potassium Chloride 97.9 L Carbon Dioxide 16 L BUN 31 H Creatinine 3.1 H Glucose 113 H POC Glucose 108 H Lactic Acid Calcium 7.4 L Magnesium Iron Total Bilirubin Direct Bilirubin AST ALT Alkaline Phosphatase Ammonia CK-MB (CK-2) CK-MB (CK-2) Rel Index Total Protein Albumin Arterial Blood Glucose Arterial Blood Ionized Calcium Urine Creatinine Urine Total Protein Salicylates Acetaminophen Crossmatch 10/18/20 10/18/20 10/18/20 10:03 14:12 19:08 WBC RBC Hgb Hct MCV MCH MCHC RDW Plt Count [place] % (Auto) [place] # (Auto) Seg Neutrophils % Seg Neuts % (Manual) Lymphocytes % (Manual) Monocytes % (Manual) Basophils % (Manual) Nucleated RBC % Seg Neutrophils # Seg Neutrophils # Man Lymphocytes # (Manual) Monocytes # (Manual) Basophils # (Manual) PT INR APTT Fibrinogen D-Dimer ABG pH POC ABG pCO2 POC ABG pO2 ABG Hemoglobin ABG Oxyhemoglobin ABG Sodium ABG Potassium ABG Chloride ABG Glucose Sodium Potassium Chloride Carbon Dioxide BUN Creatinine Glucose POC Glucose 139 H 112 H Lactic Acid Calcium Magnesium Iron Total Bilirubin Direct Bilirubin AST ALT Alkaline Phosphatase Ammonia CK-MB (CK-2) CK-MB (CK-2) Rel Index Total Protein Albumin Arterial Blood Glucose Arterial Blood Ionized Calcium Urine Creatinine Urine Total Protein Salicylates Acetaminophen Crossmatch See Detail 10/18/20 10/19/20 10/19/20 Unknown 02:02 04:00 WBC 19.8 H RBC 2.95 L Hgb 6.9 L Hct 22.2 L MCV 75 L MCH 24 L MCHC 31 L RDW 33.6 H Plt Count 28 L [place] % (Auto) [place] # (Auto) Seg Neutrophils % Seg Neuts % (Manual) Lymphocytes % (Manual) Monocytes % (Manual) Basophils % (Manual) Nucleated RBC % Seg Neutrophils # Seg Neutrophils # Man Lymphocytes # (Manual) Monocytes # (Manual) Basophils # (Manual) PT INR APTT Fibrinogen D-Dimer ABG pH 7.234 L POC ABG pCO2 POC ABG pO2 53.9 L ABG Hemoglobin 8.9 L ABG Oxyhemoglobin 86.6 L ABG Sodium 118.1 L ABG Potassium ABG Chloride 94.0 L ABG Glucose 61 L Sodium Potassium Chloride Carbon Dioxide BUN Creatinine Glucose POC Glucose 64 L Lactic Acid Calcium Magnesium Iron Total Bilirubin Direct Bilirubin AST ALT Alkaline Phosphatase Ammonia CK-MB (CK-2) CK-MB (CK-2) Rel Index Total Protein Albumin Arterial Blood Glucose 61 L Arterial Blood Ionized Calcium 4.5 L Urine Creatinine Urine Total Protein Salicylates Acetaminophen Crossmatch 10/19/20 10/19/20 10/19/20 04:51 04:51 05:43 WBC 18.2 H RBC 3.26 L Hgb 7.9 L Hct 24.6 L MCV 76 L MCH 24 L MCHC RDW 30.7 H Plt Count 41 L [place] % (Auto) Gilliam # (Auto) Seg Neutrophils % Seg Neuts % (Manual) Lymphocytes % (Manual) Monocytes % (Manual) Basophils % (Manual) Nucleated RBC % Seg Neutrophils # Seg Neutrophils # Man Lymphocytes # (Manual) Monocytes # (Manual) Basophils # (Manual) PT INR APTT Fibrinogen D-Dimer ABG pH POC ABG pCO2 POC ABG pO2 ABG Hemoglobin ABG Oxyhemoglobin ABG Sodium ABG Potassium ABG Chloride ABG Glucose Sodium 122 L Potassium Chloride 94.6 L Carbon Dioxide 17 L BUN 33 H Creatinine 3.5 H Glucose 63 L POC Glucose 54 L Lactic Acid Calcium 7.3 L Magnesium Iron Total Bilirubin 1.50 H Direct Bilirubin 0.9 H AST ALT Alkaline Phosphatase 154 H Ammonia CK-MB (CK-2) CK-MB (CK-2) Rel Index Total Protein 4.2 L Albumin 1.9 L Arterial Blood Glucose Arterial Blood Ionized Calcium Urine Creatinine Urine Total Protein Salicylates Acetaminophen Crossmatch 10/19/20 10/19/20 10/19/20 11:23 11:45 14:24 WBC RBC Hgb Hct MCV MCH MCHC RDW Plt Count [place] % (Auto) [place] # (Auto) Seg Neutrophils % Seg Neuts % (Manual) Lymphocytes % (Manual) Monocytes % (Manual) Basophils % (Manual) Nucleated RBC % Seg Neutrophils # Seg Neutrophils # Man Lymphocytes # (Manual) Monocytes # (Manual) Basophils # (Manual) PT INR APTT Fibrinogen D-Dimer ABG pH POC ABG pCO2 POC ABG pO2 ABG Hemoglobin ABG Oxyhemoglobin ABG Sodium ABG Potassium ABG Chloride ABG Glucose Sodium Potassium Chloride Carbon Dioxide BUN Creatinine Glucose POC Glucose 47 L 117 H 47 L Lactic Acid Calcium Magnesium Iron Total Bilirubin Direct Bilirubin AST ALT Alkaline Phosphatase Ammonia CK-MB (CK-2) CK-MB (CK-2) Rel Index Total Protein Albumin Arterial Blood Glucose Arterial Blood Ionized Calcium Urine Creatinine Urine Total Protein Salicylates Acetaminophen Crossmatch 10/19/20 10/19/20 10/19/20 16:31 20:04 20:19 WBC RBC Hgb Hct MCV MCH MCHC RDW Plt Count [place] % (Auto) [place] # (Auto) Seg Neutrophils % Seg Neuts % (Manual) Lymphocytes % (Manual) Monocytes % (Manual) Basophils % (Manual) Nucleated RBC % Seg Neutrophils # Seg Neutrophils # Man Lymphocytes # (Manual) Monocytes # (Manual) Basophils # (Manual) PT INR APTT Fibrinogen D-Dimer ABG pH POC ABG pCO2 POC ABG pO2 ABG Hemoglobin ABG Oxyhemoglobin ABG Sodium ABG Potassium ABG Chloride ABG Glucose Sodium Potassium Chloride Carbon Dioxide BUN Creatinine Glucose 59 L POC Glucose 58 L 49 L Lactic Acid Calcium Magnesium Iron Total Bilirubin Direct Bilirubin AST ALT Alkaline Phosphatase Ammonia CK-MB (CK-2) CK-MB (CK-2) Rel Index Total Protein Albumin Arterial Blood Glucose Arterial Blood Ionized Calcium Urine Creatinine Urine Total Protein Salicylates Acetaminophen Crossmatch 10/20/20 10/20/20 10/20/20 00:17 03:59 08:43 WBC 13.1 H RBC 3.42 L Hgb 8.3 L Hct 25.3 L MCV 74 L MCH 24 L MCHC RDW 31.4 H Plt Count 35 L [place] % (Auto) [place]am # (Auto) Seg Neutrophils % Seg Neuts % (Manual) Lymphocytes % (Manual) Monocytes % (Manual) Basophils % (Manual) Nucleated RBC % Seg Neutrophils # Seg Neutrophils # Man Lymphocytes # (Manual) Monocytes # (Manual) Basophils # (Manual) PT INR APTT Fibrinogen D-Dimer ABG pH POC ABG pCO2 POC ABG pO2 ABG Hemoglobin ABG Oxyhemoglobin ABG Sodium ABG Potassium ABG Chloride ABG Glucose Sodium Potassium Chloride Carbon Dioxide BUN Creatinine Glucose POC Glucose 29 L 47 L Lactic Acid Calcium Magnesium Iron Total Bilirubin Direct Bilirubin AST ALT Alkaline Phosphatase Ammonia CK-MB (CK-2) CK-MB (CK-2) Rel Index Total Protein Albumin Arterial Blood Glucose Arterial Blood Ionized Calcium Urine Creatinine Urine Total Protein Salicylates Acetaminophen Crossmatch 10/20/20 10/20/20 10/20/20 08:43 08:43 09:56 WBC RBC Hgb Hct MCV MCH MCHC RDW Plt Count [place] % (Auto) [place] # (Auto) Seg Neutrophils % Seg Neuts % (Manual) Lymphocytes % (Manual) Monocytes % (Manual) Basophils % (Manual) Nucleated RBC % Seg Neutrophils # Seg Neutrophils # Man Lymphocytes # (Manual) Monocytes # (Manual) Basophils # (Manual) PT 30.1 H INR 2.82 H APTT Fibrinogen D-Dimer ABG pH POC ABG pCO2 POC ABG pO2 ABG Hemoglobin ABG Oxyhemoglobin ABG Sodium ABG Potassium ABG Chloride ABG Glucose Sodium 119 L* Potassium Chloride 90.7 L Carbon Dioxide 20 L BUN 35 H Creatinine 3.3 H Glucose 57 L POC Glucose 61 L Lactic Acid Calcium 7.7 L Magnesium 1.30 L Iron Total Bilirubin 1.60 H Direct Bilirubin AST ALT Alkaline Phosphatase 152 H Ammonia CK-MB (CK-2) CK-MB (CK-2) Rel Index Total Protein 4.5 L Albumin 1.6 L Arterial Blood Glucose Arterial Blood Ionized Calcium Urine Creatinine Urine Total Protein Salicylates Acetaminophen Crossmatch 10/20/20 10/20/20 10/20/20 15:35 17:30 20:17 WBC RBC Hgb Hct MCV MCH MCHC RDW Plt Count [place] % (Auto) [place] # (Auto) Seg Neutrophils % Seg Neuts % (Manual) Lymphocytes % (Manual) Monocytes % (Manual) Basophils % (Manual) Nucleated RBC % Seg Neutrophils # Seg Neutrophils # Man Lymphocytes # (Manual) Monocytes # (Manual) Basophils # (Manual) PT INR APTT Fibrinogen D-Dimer ABG pH POC ABG pCO2 POC ABG pO2 ABG Hemoglobin ABG Oxyhemoglobin ABG Sodium ABG Potassium ABG Chloride ABG Glucose Sodium 121 L 120 L Potassium Chloride Carbon Dioxide BUN Creatinine Glucose POC Glucose 61 L Lactic Acid Calcium Magnesium Iron Total Bilirubin Direct Bilirubin AST ALT Alkaline Phosphatase Ammonia CK-MB (CK-2) CK-MB (CK-2) Rel Index Total Protein Albumin Arterial Blood Glucose Arterial Blood Ionized Calcium Urine Creatinine Urine Total Protein Salicylates Acetaminophen Crossmatch 10/20/20 10/20/20 10/21/20 23:00 23:37 01:00 WBC RBC Hgb Hct MCV MCH MCHC RDW Plt Count [place] % (Auto) [place] # (Auto) Seg Neutrophils % Seg Neuts % (Manual) Lymphocytes % (Manual) Monocytes % (Manual) Basophils % (Manual) Nucleated RBC % Seg Neutrophils # Seg Neutrophils # Man Lymphocytes # (Manual) Monocytes # (Manual) Basophils # (Manual) PT INR APTT Fibrinogen D-Dimer ABG pH POC ABG pCO2 POC ABG pO2 ABG Hemoglobin ABG Oxyhemoglobin ABG Sodium ABG Potassium ABG Chloride ABG Glucose Sodium 121 L Potassium Chloride Carbon Dioxide BUN Creatinine Glucose POC Glucose 33 L 36 L Lactic Acid Calcium Magnesium Iron Total Bilirubin Direct Bilirubin AST ALT Alkaline Phosphatase Ammonia CK-MB (CK-2) CK-MB (CK-2) Rel Index Total Protein Albumin Arterial Blood Glucose Arterial Blood Ionized Calcium Urine Creatinine Urine Total Protein Salicylates Acetaminophen Crossmatch 10/21/20 10/21/20 10/21/20 02:31 04:00 05:22 WBC RBC Hgb Hct MCV MCH MCHC RDW Plt Count [place] % (Auto) [place] # (Auto) Seg Neutrophils % Seg Neuts % (Manual) Lymphocytes % (Manual) Monocytes % (Manual) Basophils % (Manual) Nucleated RBC % Seg Neutrophils # Seg Neutrophils # Man Lymphocytes # (Manual) Monocytes # (Manual) Basophils # (Manual) PT INR APTT Fibrinogen D-Dimer ABG pH POC ABG pCO2 POC ABG pO2 66.6 L ABG Hemoglobin 8.7 L ABG Oxyhemoglobin 92.1 L ABG Sodium 117.9 L ABG Potassium 3.2 L ABG Chloride 93.0 L ABG Glucose Sodium Potassium Chloride Carbon Dioxide BUN Creatinine Glucose POC Glucose 51 L 64 L Lactic Acid Calcium Magnesium Iron Total Bilirubin Direct Bilirubin AST ALT Alkaline Phosphatase Ammonia CK-MB (CK-2) CK-MB (CK-2) Rel Index Total Protein Albumin Arterial Blood Glucose Arterial Blood Ionized Calcium 4.4 L Urine Creatinine Urine Total Protein Salicylates Acetaminophen Crossmatch 10/21/20 10/21/20 10/21/20 05:50 05:50 10:32 WBC 11.1 H RBC 3.27 L Hgb 7.9 L Hct 23.9 L MCV 73 L MCH 24 L MCHC RDW 31.8 H Plt Count 26 L [place] % (Auto) [place]illiam # (Auto) Seg Neutrophils % Seg Neuts % (Manual) Lymphocytes % (Manual) Monocytes % (Manual) Basophils % (Manual) Nucleated RBC % Seg Neutrophils # Seg Neutrophils # Man Lymphocytes # (Manual) Monocytes # (Manual) Basophils # (Manual) PT INR APTT Fibrinogen D-Dimer ABG pH POC ABG pCO2 POC ABG pO2 ABG Hemoglobin ABG Oxyhemoglobin ABG Sodium ABG Potassium ABG Chloride ABG Glucose Sodium 122 L Potassium 3.4 L Chloride 91.1 L Carbon Dioxide BUN 38 H Creatinine 3.2 H Glucose 56 L POC Glucose 68 L Lactic Acid Calcium 7.8 L Magnesium 1.60 L Iron Total Bilirubin Direct Bilirubin AST ALT Alkaline Phosphatase Ammonia CK-MB (CK-2) CK-MB (CK-2) Rel Index Total Protein Albumin Arterial Blood Glucose Arterial Blood Ionized Calcium Urine Creatinine Urine Total Protein Salicylates Acetaminophen Crossmatch 10/21/20 10/21/20 10/21/20 14:05 17:15 18:41 WBC RBC Hgb Hct MCV MCH MCHC RDW Plt Count [place] % (Auto) [place] # (Auto) Seg Neutrophils % Seg Neuts % (Manual) Lymphocytes % (Manual) Monocytes % (Manual) Basophils % (Manual) Nucleated RBC % Seg Neutrophils # Seg Neutrophils # Man Lymphocytes # (Manual) Monocytes # (Manual) Basophils # (Manual) PT INR APTT Fibrinogen D-Dimer ABG pH POC ABG pCO2 POC ABG pO2 ABG Hemoglobin ABG Oxyhemoglobin ABG Sodium ABG Potassium ABG Chloride ABG Glucose Sodium Potassium Chloride Carbon Dioxide BUN Creatinine Glucose POC Glucose 61 L 53 L 110 H Lactic Acid Calcium Magnesium Iron Total Bilirubin Direct Bilirubin AST ALT Alkaline Phosphatase Ammonia CK-MB (CK-2) CK-MB (CK-2) Rel Index Total Protein Albumin Arterial Blood Glucose Arterial Blood Ionized Calcium Urine Creatinine Urine Total Protein Salicylates Acetaminophen Crossmatch 10/21/20 10/21/20 10/21/20 21:08 22:20 Unknown WBC RBC Hgb Hct MCV MCH MCHC RDW Plt Count [place] % (Auto) [place] # (Auto) Seg Neutrophils % Seg Neuts % (Manual) Lymphocytes % (Manual) Monocytes % (Manual) Basophils % (Manual) Nucleated RBC % Seg Neutrophils # Seg Neutrophils # Man Lymphocytes # (Manual) Monocytes # (Manual) Basophils # (Manual) PT INR APTT Fibrinogen D-Dimer ABG pH POC ABG pCO2 POC ABG pO2 ABG Hemoglobin ABG Oxyhemoglobin ABG Sodium ABG Potassium ABG Chloride ABG Glucose Sodium 123 L 125 L Potassium 3.2 L Chloride 94.1 L Carbon Dioxide BUN 40 H Creatinine 3.3 H Glucose 64 L POC Glucose 117 H Lactic Acid Calcium 7.6 L Magnesium Iron Total Bilirubin Direct Bilirubin AST ALT Alkaline Phosphatase Ammonia CK-MB (CK-2) CK-MB (CK-2) Rel Index Total Protein Albumin Arterial Blood Glucose Arterial Blood Ionized Calcium Urine Creatinine Urine Total Protein Salicylates Acetaminophen Crossmatch 10/21/20 10/21/20 10/22/20 Unknown Unknown 02:43 WBC RBC 3.40 L Hgb 8.4 L Hct 24.8 L MCV 73 L MCH 25 L MCHC RDW 31.5 H Plt Count 21 L [place] % (Auto) [place]illiam # (Auto) Seg Neutrophils % Seg Neuts % (Manual) 83.0 H Lymphocytes % (Manual) 10.0 L Monocytes % (Manual) Basophils % (Manual) Nucleated RBC % 2.0 H Seg Neutrophils # Seg Neutrophils # Man 9.0 H Lymphocytes # (Manual) 1.1 L Monocytes # (Manual) Basophils # (Manual) PT 27.0 H INR 2.44 H APTT 61.4 H* Fibrinogen 482 H D-Dimer 1992.93 H ABG pH POC ABG pCO2 POC ABG pO2 ABG Hemoglobin ABG Oxyhemoglobin ABG Sodium ABG Potassium ABG Chloride ABG Glucose Sodium 122 L Potassium 3.1 L Chloride 92.9 L Carbon Dioxide BUN 44 H Creatinine 3.2 H Glucose POC Glucose Lactic Acid Calcium 7.8 L Magnesium Iron Total Bilirubin Direct Bilirubin AST ALT Alkaline Phosphatase Ammonia CK-MB (CK-2) CK-MB (CK-2) Rel Index Total Protein Albumin Arterial Blood Glucose Arterial Blood Ionized Calcium Urine Creatinine Urine Total Protein Salicylates Acetaminophen Crossmatch 10/22/20 10/22/20 10/22/20 04:00 06:00 20:00 WBC RBC 3.29 L Hgb 8.0 L Hct 24.3 L MCV 74 L MCH 24 L MCHC RDW 32.2 H Plt Count 21 L [place] % (Auto) [place]am # (Auto) Seg Neutrophils % Seg Neuts % (Manual) Lymphocytes % (Manual) Monocytes % (Manual) Basophils % (Manual) Nucleated RBC % Seg Neutrophils # Seg Neutrophils # Man Lymphocytes # (Manual) Monocytes # (Manual) Basophils # (Manual) PT INR APTT Fibrinogen D-Dimer ABG pH POC ABG pCO2 29.1 L POC ABG pO2 64.1 L ABG Hemoglobin 8.2 L ABG Oxyhemoglobin 90.6 L ABG Sodium 118.8 L ABG Potassium ABG Chloride 96.0 L ABG Glucose 117 H Sodium 126 L Potassium Chloride 95.8 L Carbon Dioxide 21 L BUN 50 H Creatinine 3.4 H Glucose POC Glucose Lactic Acid Calcium 7.9 L Magnesium Iron Total Bilirubin Direct Bilirubin AST ALT Alkaline Phosphatase Ammonia CK-MB (CK-2) CK-MB (CK-2) Rel Index Total Protein Albumin Arterial Blood Glucose 117 H Arterial Blood Ionized Calcium Urine Creatinine Urine Total Protein Salicylates Acetaminophen Crossmatch 10/23/20 10/23/20 10/23/20 04:00 05:35 05:35 WBC RBC 2.94 L Hgb 7.3 L Hct 21.3 L MCV 72 L MCH 25 L MCHC RDW 32.3 H Plt Count 56 L D [place] % (Auto) [place] # (Auto) Seg Neutrophils % Seg Neuts % (Manual) 83.0 H Lymphocytes % (Manual) 9.0 L Monocytes % (Manual) Basophils % (Manual) Nucleated RBC % 3.0 H Seg Neutrophils # Seg Neutrophils # Man Lymphocytes # (Manual) 0.7 L Monocytes # (Manual) Basophils # (Manual) PT INR APTT Fibrinogen D-Dimer ABG pH POC ABG pCO2 29.0 L POC ABG pO2 ABG Hemoglobin 7.7 L ABG Oxyhemoglobin ABG Sodium 120.4 L ABG Potassium ABG Chloride 97.0 L ABG Glucose Sodium 128 L Potassium Chloride 96.7 L Carbon Dioxide BUN 56 H Creatinine 3.4 H Glucose POC Glucose Lactic Acid Calcium Magnesium Iron Total Bilirubin Direct Bilirubin AST ALT Alkaline Phosphatase Ammonia CK-MB (CK-2) CK-MB (CK-2) Rel Index Total Protein Albumin Arterial Blood Glucose Arterial Blood Ionized Calcium Urine Creatinine Urine Total Protein Salicylates Acetaminophen Crossmatch 10/23/20 10/24/20 10/24/20 21:01 03:00 05:27 WBC RBC 2.98 L Hgb 7.4 L Hct 21.8 L MCV 73 L MCH 25 L MCHC RDW 32.2 H Plt Count 56 L [place] % (Auto) [place] # (Auto) Seg Neutrophils % Seg Neuts % (Manual) Lymphocytes % (Manual) Monocytes % (Manual) Basophils % (Manual) Nucleated RBC % Seg Neutrophils # Seg Neutrophils # Man Lymphocytes # (Manual) Monocytes # (Manual) Basophils # (Manual) PT INR APTT Fibrinogen D-Dimer ABG pH 7.490 H POC ABG pCO2 26.8 L POC ABG pO2 ABG Hemoglobin 3.3 L ABG Oxyhemoglobin 83.6 L ABG Sodium 118.0 L ABG Potassium ABG Chloride 97.0 L ABG Glucose Sodium Potassium Chloride Carbon Dioxide BUN Creatinine Glucose POC Glucose > 600 H Lactic Acid Calcium Magnesium Iron Total Bilirubin Direct Bilirubin AST ALT Alkaline Phosphatase Ammonia CK-MB (CK-2) CK-MB (CK-2) Rel Index Total Protein Albumin Arterial Blood Glucose Arterial Blood Ionized Calcium 4.5 L Urine Creatinine Urine Total Protein Salicylates Acetaminophen Crossmatch 10/24/20 10/24/20 10/24/20 05:27 05:27 10:07 WBC RBC Hgb Hct MCV MCH MCHC RDW Plt Count [place] % (Auto) [place] # (Auto) Seg Neutrophils % Seg Neuts % (Manual) Lymphocytes % (Manual) Monocytes % (Manual) Basophils % (Manual) Nucleated RBC % Seg Neutrophils # Seg Neutrophils # Man Lymphocytes # (Manual) Monocytes # (Manual) Basophils # (Manual) PT 20.4 H INR 1.70 H APTT Fibrinogen D-Dimer ABG pH POC ABG pCO2 POC ABG pO2 ABG Hemoglobin ABG Oxyhemoglobin ABG Sodium ABG Potassium ABG Chloride ABG Glucose Sodium 123 L Potassium 3.5 L Chloride 93.3 L Carbon Dioxide 20 L BUN 66 H Creatinine 3.9 H Glucose POC Glucose 110 H Lactic Acid Calcium 8.1 L Magnesium Iron Total Bilirubin Direct Bilirubin AST 54 H ALT Alkaline Phosphatase 316 H Ammonia CK-MB (CK-2) CK-MB (CK-2) Rel Index Total Protein 5.1 L Albumin 1.7 L Arterial Blood Glucose Arterial Blood Ionized Calcium Urine Creatinine Urine Total Protein Salicylates Acetaminophen Crossmatch 10/24/20 10/24/20 10/24/20 18:24 23:11 23:28 WBC RBC Hgb Hct MCV MCH MCHC RDW Plt Count [place] % (Auto) [place] # (Auto) Seg Neutrophils % Seg Neuts % (Manual) Lymphocytes % (Manual) Monocytes % (Manual) Basophils % (Manual) Nucleated RBC % Seg Neutrophils # Seg Neutrophils # Man Lymphocytes # (Manual) Monocytes # (Manual) Basophils # (Manual) PT INR APTT Fibrinogen D-Dimer ABG pH POC ABG pCO2 POC ABG pO2 ABG Hemoglobin ABG Oxyhemoglobin ABG Sodium ABG Potassium ABG Chloride ABG Glucose Sodium Potassium Chloride Carbon Dioxide BUN Creatinine Glucose 142 H POC Glucose 121 H 137 H Lactic Acid Calcium Magnesium Iron Total Bilirubin Direct Bilirubin AST ALT Alkaline Phosphatase Ammonia CK-MB (CK-2) CK-MB (CK-2) Rel Index Total Protein Albumin Arterial Blood Glucose Arterial Blood Ionized Calcium Urine Creatinine Urine Total Protein Salicylates Acetaminophen Crossmatch 10/25/20 10/25/20 10/25/20 05:22 05:22 05:28 WBC RBC Hgb Hct MCV MCH MCHC RDW Plt Count [place] % (Auto) Gilliam # (Auto) Seg Neutrophils % Seg Neuts % (Manual) Lymphocytes % (Manual) Monocytes % (Manual) Basophils % (Manual) Nucleated RBC % Seg Neutrophils # Seg Neutrophils # Man Lymphocytes # (Manual) Monocytes # (Manual) Basophils # (Manual) PT INR APTT Fibrinogen D-Dimer ABG pH POC ABG pCO2 POC ABG pO2 ABG Hemoglobin ABG Oxyhemoglobin ABG Sodium ABG Potassium ABG Chloride ABG Glucose Sodium 133 L D Potassium Chloride Carbon Dioxide BUN 55 H Creatinine 3.1 H Glucose 127 H 127 H POC Glucose 121 H Lactic Acid Calcium Magnesium Iron Total Bilirubin Direct Bilirubin AST ALT Alkaline Phosphatase Ammonia CK-MB (CK-2) CK-MB (CK-2) Rel Index Total Protein Albumin Arterial Blood Glucose Arterial Blood Ionized Calcium Urine Creatinine Urine Total Protein Salicylates Acetaminophen Crossmatch 10/25/20 10/25/20 10/25/20 08:35 11:39 15:09 WBC RBC 2.84 L Hgb 7.0 L Hct 20.9 L MCV 74 L MCH 25 L MCHC RDW 30.8 H Plt Count 101 L [place] % (Auto) Gilliam # (Auto) Seg Neutrophils % Seg Neuts % (Manual) Lymphocytes % (Manual) Monocytes % (Manual) Basophils % (Manual) Nucleated RBC % Seg Neutrophils # Seg Neutrophils # Man Lymphocytes # (Manual) Monocytes # (Manual) Basophils # (Manual) PT INR APTT Fibrinogen D-Dimer ABG pH POC ABG pCO2 POC ABG pO2 ABG Hemoglobin ABG Oxyhemoglobin ABG Sodium ABG Potassium ABG Chloride ABG Glucose Sodium Potassium Chloride Carbon Dioxide BUN Creatinine Glucose 179 H POC Glucose 165 H Lactic Acid Calcium Magnesium Iron Total Bilirubin Direct Bilirubin AST ALT Alkaline Phosphatase Ammonia CK-MB (CK-2) CK-MB (CK-2) Rel Index Total Protein Albumin Arterial Blood Glucose Arterial Blood Ionized Calcium Urine Creatinine Urine Total Protein Salicylates Acetaminophen Crossmatch 10/25/20 10/25/20 10/25/20 15:15 17:51 23:10 WBC RBC Hgb Hct MCV MCH MCHC RDW Plt Count [place] % (Auto) Gilliam # (Auto) Seg Neutrophils % Seg Neuts % (Manual) Lymphocytes % (Manual) Monocytes % (Manual) Basophils % (Manual) Nucleated RBC % Seg Neutrophils # Seg Neutrophils # Man Lymphocytes # (Manual) Monocytes # (Manual) Basophils # (Manual) PT INR APTT Fibrinogen D-Dimer ABG pH 7.478 H POC ABG pCO2 POC ABG pO2 39.0 L ABG Hemoglobin 7.7 L ABG Oxyhemoglobin 72.9 L ABG Sodium 133.3 L ABG Potassium ABG Chloride ABG Glucose 189 H Sodium Potassium Chloride Carbon Dioxide BUN Creatinine Glucose POC Glucose 132 H 140 H Lactic Acid Calcium Magnesium Iron Total Bilirubin Direct Bilirubin AST ALT Alkaline Phosphatase Ammonia CK-MB (CK-2) CK-MB (CK-2) Rel Index Total Protein Albumin Arterial Blood Glucose 189 H Arterial Blood Ionized Calcium 4.4 L Urine Creatinine Urine Total Protein Salicylates Acetaminophen Crossmatch 10/26/20 10/26/20 10/26/20 04:30 11:00 11:28 WBC RBC 2.94 L Hgb 7.3 L Hct 22.9 L MCV 76 L MCH 25 L MCHC RDW 29.8 H Plt Count 138 L [place] % (Auto) Gilliam # (Auto) Seg Neutrophils % Seg Neuts % (Manual) Lymphocytes % (Manual) Monocytes % (Manual) Basophils % (Manual) Nucleated RBC % Seg Neutrophils # Seg Neutrophils # Man Lymphocytes # (Manual) Monocytes # (Manual) Basophils # (Manual) PT INR APTT Fibrinogen D-Dimer ABG pH POC ABG pCO2 POC ABG pO2 ABG Hemoglobin ABG Oxyhemoglobin ABG Sodium ABG Potassium ABG Chloride ABG Glucose Sodium 136 L Potassium Chloride Carbon Dioxide BUN 44 H Creatinine 2.7 H Glucose POC Glucose 137 H Lactic Acid Calcium 8.1 L Magnesium Iron Total Bilirubin Direct Bilirubin AST ALT Alkaline Phosphatase Ammonia CK-MB (CK-2) CK-MB (CK-2) Rel Index Total Protein Albumin Arterial Blood Glucose Arterial Blood Ionized Calcium Urine Creatinine Urine Total Protein Salicylates Acetaminophen Crossmatch 10/26/20 10/26/20 10/27/20 17:06 23:11 04:30 WBC RBC Hgb Hct MCV MCH MCHC RDW Plt Count [place] % (Auto) Gilliam # (Auto) Seg Neutrophils % Seg Neuts % (Manual) Lymphocytes % (Manual) Monocytes % (Manual) Basophils % (Manual) Nucleated RBC % Seg Neutrophils # Seg Neutrophils # Man Lymphocytes # (Manual) Monocytes # (Manual) Basophils # (Manual) PT INR APTT Fibrinogen D-Dimer ABG pH POC ABG pCO2 POC ABG pO2 ABG Hemoglobin ABG Oxyhemoglobin ABG Sodium ABG Potassium ABG Chloride ABG Glucose Sodium Potassium Chloride Carbon Dioxide BUN 38 H Creatinine 2.5 H Glucose 108 H POC Glucose 116 H 108 H Lactic Acid Calcium Magnesium Iron Total Bilirubin Direct Bilirubin AST ALT Alkaline Phosphatase Ammonia CK-MB (CK-2) CK-MB (CK-2) Rel Index Total Protein Albumin Arterial Blood Glucose Arterial Blood Ionized Calcium Urine Creatinine Urine Total Protein Salicylates Acetaminophen Crossmatch 10/27/20 10/27/20 04:30 04:57 WBC RBC 2.79 L Hgb 6.9 L Hct 21.3 L MCV 76 L MCH 25 L MCHC RDW 30.2 H Plt Count [place] % (Auto) Gilliam # (Auto) Seg Neutrophils % Seg Neuts % (Manual) Lymphocytes % (Manual) Monocytes % (Manual) Basophils % (Manual) Nucleated RBC % Seg Neutrophils # Seg Neutrophils # Man Lymphocytes # (Manual) Monocytes # (Manual) Basophils # (Manual) PT INR APTT Fibrinogen D-Dimer ABG pH POC ABG pCO2 POC ABG pO2 ABG Hemoglobin ABG Oxyhemoglobin ABG Sodium ABG Potassium ABG Chloride ABG Glucose Sodium Potassium Chloride Carbon Dioxide BUN Creatinine Glucose POC Glucose 106 H Lactic Acid Calcium Magnesium Iron Total Bilirubin Direct Bilirubin AST ALT Alkaline Phosphatase Ammonia CK-MB (CK-2) CK-MB (CK-2) Rel Index Total Protein Albumin Arterial Blood Glucose Arterial Blood Ionized Calcium Urine Creatinine Urine Total Protein Salicylates Acetaminophen Crossmatch Chest x-ray: image reviewed Allied health notes reviewed: RT
--- NOTE | 2020-10-27 11:51 | Progress Note ---
Assessment and Plan Patient is a 75 y/o male Atherosclerotic cerebrovascular disease * Management per primary teams Acute hypoxic respiratory failure * Pulmonology following * Currently intubated Paroxysmal Afib w/RVR HFrEF * Given pt's soft BP will hold off on ELADIA/ARB, BB, or non-dihydropyridine CCB * Currently Afib but rate controlled. S/p amio gtt * Would not recommend anticoagulation currently given anemia * Echo 10/04/2020-EF 25 to 30%, right ventricle severely dilated and moderately hypokinetic, left atrium is mildly dilated, right atrium severely dilated, moderate to severe tricuspid regurgitation, moderate mitral regurgitation tricuspid annulus dilated. Acute Renal Failure * Receiving HD * Nephrology following Patient currently afib but rate controlled. Will hold continue to hold amio as long patient is rate controlled Patient seen in conjunction with Dr. Rebolledo who agrees with this plan of care. Will see as needed over weekend 30min of critical care time spent in coordination of this patient - Patient Problems (1) Afib Current Visit: Yes Status: Acute (2) Acute encephalopathy Current Visit: Yes Status: Acute (3) Atherosclerotic cerebrovascular disease Current Visit: Yes Status: Acute (4) Hypoglycemia Current Visit: Yes Status: Acute (5) Left-sided weakness Current Visit: Yes Status: Acute (6) Microcytic anemia Current Visit: Yes Status: Acute (7) Pulmonary infiltrate in right lung on CXR Current Visit: Yes Status: Acute (8) HFrEF (heart failure with reduced ejection fraction) Current Visit: Yes Status: Acute (9) Dilated cardiomyopathy Current Visit: Yes Status: Acute Subjective Date of service: 10/27/20 Principal diagnosis: Ac hypoxemic resp failure; Pneumonia; BETSY; Ac. encephalopathy Interval history: Patient intubated. Patient afib 90s-100s on monitor Objective Last Vital Signs Temp 98.1 F 10/27/20 03:31 Pulse 99 H 10/27/20 11:30 Resp 19 10/27/20 11:30 BP 110/65 10/27/20 11:30 Pulse Ox 71 L 10/27/20 11:30 - Physical Examination General: Other (intubated) HEENT: Positive: Mucus Membranes Dry Neck: Positive: trachea midline Cardiac: Positive: irregularly irregular Lungs: Positive: Ventilated Respirations Neuro: Positive: Other (intubated) Abdomen: Positive: Soft Skin: Negative: Rash Extremities: Present: upper extr. pulses, lower extr. pulses, edema - Labs and Meds CBC 10/26/20 10/27/20 Range/Units 11:00 04:30 WBC 10.9 10.3 (4.5-11.0) K/mm3 RBC 2.94 L 2.79 L (3.65-5.03) M/mm3 Hgb 7.3 L 6.9 L (11.8-15.2) gm/dl Hct 22.9 L 21.3 L (35.5-45.6) % Plt Count 138 L 182 (140-440) K/mm3 Comprehensive Metabolic Panel 10/27/20 Range/Units 04:30 Sodium 142 (137-145) mmol/L Potassium 3.6 (3.6-5.0) mmol/L Chloride 103.0 (98-107) mmol/L Carbon Dioxide 30 (22-30) mmol/L BUN 38 H (9-20) mg/dL Creatinine 2.5 H (0.8-1.3) mg/dL Glucose 108 H (75-100) mg/dL Calcium 8.8 (8.4-10.2) mg/dL - Imaging and Cardiology EKG: report reviewed, image reviewed Echo: report reviewed - Telemetry EKG Rhythm: Atrial Fibrillation - EKG Supraventricular dysrhythmia: atrial fibrillation - Allied health notes Allied health notes reviewed: nursing
[2020-10-27] MEDS ORDERED: SODIUM CHLORIDE 0.9% 500 ML 500 ML IV ONE (12:34)
--- NOTE | 2020-10-27 13:21 | Progress Note ---
Assessment and Plan Acute encephalopathy Hyponatremia Hypothermia, resolved Pulmonary infiltrate in right lung on CXR Atherosclerotic cerebrovascular disease Severe anemia -possible GI bleed Severe protein-calorie malnutrition Acute Renal Failure Hypokalemia Plan: -for now cont daily HD for volume overload -Hyponatremia resolved after HD -Renal ultrasound- no hydronephrosis -Avoid nephrotoxic agents -Obtain daily weights -Monitor I/O's daily -Monitor renal function closely Subjective Date of service: 10/27/20 Principal diagnosis: Ac hypoxemic resp failure; Pneumonia; BETSY; Ac. encephalopathy Interval history: intubated and sedated Objective - Vital Signs Vital signs: Vital Signs - 12hr 10/27/20 10/27/20 10/27/20 01:30 01:45 02:00 Temperature Pulse Rate 95 H 97 H 102 H Pulse Rate [ From Monitor] Respiratory 19 17 19 Rate Blood Pressure 100/51 98/56 98/56 O2 Sat by Pulse 90 92 90 Oximetry 10/27/20 10/27/20 10/27/20 02:15 02:30 02:45 Temperature Pulse Rate 95 H 101 H 105 H Pulse Rate [ From Monitor] Respiratory 21 21 19 Rate Blood Pressure 99/48 99/48 105/53 O2 Sat by Pulse 88 91 91 Oximetry 10/27/20 10/27/20 10/27/20 03:00 03:15 03:30 Temperature Pulse Rate 104 H 101 H 94 H Pulse Rate [ From Monitor] Respiratory 26 H 20 19 Rate Blood Pressure 105/53 108/52 108/52 O2 Sat by Pulse 90 90 88 Oximetry 10/27/20 10/27/20 10/27/20 03:31 03:45 03:56 Temperature 98.1 F Pulse Rate 94 H 88 Pulse Rate [ From Monitor] Respiratory 20 Rate Blood Pressure 101/52 101/52 O2 Sat by Pulse 91 91 Oximetry 10/27/20 10/27/20 10/27/20 04:00 04:15 04:30 Temperature Pulse Rate 89 97 H 106 H Pulse Rate [ 106 H From Monitor] Respiratory 20 20 20 Rate Blood Pressure 100/54 104/58 104/58 O2 Sat by Pulse 91 91 89 Oximetry 10/27/20 10/27/20 10/27/20 04:45 05:00 05:15 Temperature Pulse Rate 90 91 H 95 H Pulse Rate [ From Monitor] Respiratory 19 20 20 Rate Blood Pressure 97/52 97/52 104/54 O2 Sat by Pulse 88 90 91 Oximetry 10/27/20 10/27/20 10/27/20 05:30 05:46 06:00 Temperature Pulse Rate 82 89 97 H Pulse Rate [ From Monitor] Respiratory 15 25 H 24 Rate Blood Pressure 99/48 110/57 102/61 O2 Sat by Pulse 52 L 81 L 81 L Oximetry 10/27/20 10/27/20 10/27/20 06:15 06:30 06:46 Temperature Pulse Rate 105 H 99 H 90 Pulse Rate [ From Monitor] Respiratory 23 24 24 Rate Blood Pressure 94/60 107/53 96/54 O2 Sat by Pulse 83 L 85 91 Oximetry 10/27/20 10/27/20 10/27/20 07:00 07:15 07:30 Temperature Pulse Rate 99 H 85 93 H Pulse Rate [ From Monitor] Respiratory 23 21 22 Rate Blood Pressure 99/59 104/58 100/62 O2 Sat by Pulse 86 90 90 Oximetry 10/27/20 10/27/20 10/27/20 07:45 08:00 08:15 Temperature Pulse Rate 103 H 95 H 102 H Pulse Rate [ 85 From Monitor] Respiratory 23 20 16 Rate Blood Pressure 97/61 89/59 90/61 O2 Sat by Pulse 90 90 92 Oximetry 10/27/20 10/27/20 10/27/20 08:30 08:45 09:00 Temperature Pulse Rate 87 93 H 100 H Pulse Rate [ From Monitor] Respiratory 20 22 21 Rate Blood Pressure 89/59 102/54 97/55 O2 Sat by Pulse 92 95 92 Oximetry 10/27/20 10/27/20 10/27/20 09:16 09:30 09:45 Temperature Pulse Rate 99 H 103 H 94 H Pulse Rate [ From Monitor] Respiratory 16 25 H 20 Rate Blood Pressure 92/52 102/54 98/60 O2 Sat by Pulse 90 93 96 Oximetry 10/27/20 10/27/20 10/27/20 10:00 10:01 10:15 Temperature Pulse Rate 94 H 105 H 96 H Pulse Rate [ From Monitor] Respiratory 19 21 Rate Blood Pressure 106/52 98/60 109/62 O2 Sat by Pulse 96 94 99 Oximetry 10/27/20 10/27/20 10/27/20 10:30 10:45 11:00 Temperature Pulse Rate 99 H 104 H 101 H Pulse Rate [ From Monitor] Respiratory 20 22 21 Rate Blood Pressure 109/62 102/67 102/67 O2 Sat by Pulse 98 100 Oximetry 10/27/20 10/27/20 10/27/20 11:15 11:30 11:45 Temperature Pulse Rate 104 H 99 H 96 H Pulse Rate [ From Monitor] Respiratory 20 19 20 Rate Blood Pressure 100/64 110/65 104/60 O2 Sat by Pulse 100 71 L 100 Oximetry 10/27/20 10/27/20 10/27/20 11:50 12:00 12:15 Temperature Pulse Rate 102 H 97 H 101 H Pulse Rate [ 101 H From Monitor] Respiratory 29 H 32 H 31 H Rate Blood Pressure 104/60 104/60 101/59 O2 Sat by Pulse 100 100 91 Oximetry 10/27/20 10/27/20 10/27/20 12:30 12:45 13:00 Temperature Pulse Rate 99 H 102 H 96 H Pulse Rate [ From Monitor] Respiratory 28 H 29 H 30 H Rate Blood Pressure 97/60 106/60 103/66 O2 Sat by Pulse 92 98 97 Oximetry - Lab 10/27/20 04:30 10/27/20 04:30 Most recent lab results ABG pH 7.478 (7.320-7.450) H 10/25/20 15:15 ABG O2 Saturation 73.5 (0-100) 10/25/20 15:15 Calcium 8.8 mg/dL (8.4-10.2) 10/27/20 04:30 Phosphorus 2.80 mg/dL (2.5-4.5) 10/23/20 05:35 Magnesium 2.10 mg/dL (1.7-2.3) 10/23/20 05:35 Urine Creatinine 144.2 mg/dL (0.1-20.0) H 10/14/20 Unknown Urine Sodium 10 mmol/L 10/14/20 Unknown Urine Total Protein 97 mg/dL (5-11.8) H 10/14/20 Unknown Medications & Allergies - Medications Allergies/Adverse Reactions: Allergies No Known Allergies Allergy (Unverified 10/03/20 12:27) Home Medications: Home Medications Medication Instructions Recorded Confirmed Last Taken Type Unobtainable 10/10/20 10/10/20 Unknown History Active Medications: Generic Name Dose Route Start Last Admin Trade Name Freq PRN Reason Stop Dose Admin Acetaminophen 650 mg 10/03/20 02:10 10/06/20 15:28 Acetaminophen 325 Mg Tab PO 650 mg Q4H PRN Administration Pain MILD(1-3)/Fever >100.5/ROMERO Al Hydrox/Mg Hydrox/Simethicone 30 ml 10/03/20 02:10 Alum-Mag Hydroxide-Simethicone [phone]/5ml Oral Liqd 30 Ml PO Q4H PRN Indigestion Lipase/Protease/Amylase 1 each 10/03/20 16:51 Lipase 10,500/Protease 25,000/Amylase 43,750 (Units) Dr Reis FEEDTUBE PRN PRN For Clogged Feeding Tube Dextrose 50 ml 10/16/20 12:42 10/21/20 17:39 Dextrose 50% In Water (25gm) 50 Ml Syringe IV 50 ml Q30MIN PRN Administration Hypoglycemia Protocol Fentanyl 50 mcg 10/22/20 10:00 10/27/20 00:05 Fentanyl 100 Mcg/2 Ml Inj IV 50 mcg Q4HR PRN Administration Pain , Severe (7-10) Ferrous Sulfate 308 mg 10/16/20 10:00 10/27/20 09:04 Ferrous Sulfate 308 Mg (62mg Elemental Iron) / 7 Ml Elixir FEEDTUBE 308 mg DAILY JOSE Administration Folic Acid 1 mg 10/03/20 10:00 10/27/20 09:05 Folic Acid 1 Mg Tab PO 1 mg QDAY JOSE Administration Levetiracetam 250 mg/ Dextrose 102.5 mls @ 400 mls/hr 10/10/20 22:00 10/27/20 09:04 IV 400 mls/hr Q12HR JOSE Administration NORepinephrine/NS 8 MG-250 ML 8 mg in 250 mls @ 3.75 mls/hr 10/16/20 19:00 10/21/20 16:56 Norepinephrine/Ns 8 Mg-250 Ml (Double Conc) IV 0 mcg/min TITRATE JOSE 0 mls/hr Titration Protocol 2 MCG/MIN Magnesium Hydroxide 30 ml 10/03/20 02:10 Magnesium Hydroxide (Mom) Oral Liqd Udc PO Q4H PRN Constipation Midodrine 10 mg 10/24/20 18:00 10/27/20 09:05 Midodrine 5 Mg Tab PO 10 mg Q8H JOSE Administration Pantoprazole Sodium 40 mg 10/04/20 15:00 10/27/20 09:04 Pantoprazole 40 Mg Inj IV 40 mg QDAY JOSE Administration Promethazine HCl 25 mg 10/03/20 02:10 Promethazine 25 Mg Rect Supp [place] Q6H PRN N/V IF NPO AND NO IV ACCESS Senna 8.6 mg 10/03/20 02:10 Sennosides 8.6 Mg Tab PO Q12HR PRN Constipation Simple Syrup 15 ml 10/03/20 16:51 10/19/20 02:08 Simple Syrup 15 Ml FEEDTUBE 15 ml PRN PRN Administration Hypoglycemia Simple Syrup 30 ml 10/03/20 16:51 10/16/20 22:02 Simple Syrup 15 Ml FEEDTUBE 30 ml PRN PRN Administration Hypoglycemia Sodium Bicarbonate 325 mg 10/03/20 16:51 Sodium Bicarbonate 325 Mg Tab FEEDTUBE PRN PRN For Clogged Feeding Tube
--- NOTE | 2020-10-27 14:57 | Progress Note ---
Assessment and Plan Assessment and plan: #Atherosclerotic cerebrovascular disease #Altered mental status -Persistent -Neurology following, recs appreciated -Continue Keppra, seizure precautions -Continue thiamine and folate -Status post EEG #Paroxysmal atrial fibrillation #Heart failure reduced ejection fraction -EF 10-15%, recent echo EF 25-30% -maintain MAP greater than 65 -dobutamine discontinued -will continue midodrine for now -Cardiology following -improved volume status post dialysis #Acute hypoxic respiratory failure -Currently on mechanical ventilation (intubated 10/15) -CCM following, assistance appreciated -Continue stress dose steroids #BETSY -Nephrology following -continue HD #Acute on chronic anemia -hemoglobin dropped to 6.9 today -1 packed red blood cells transfused -maintain hemoglobin greater than 7 #Superficial venous thrombosis -Bilateral upper and lower extremity Doppler ultrasound show superficial venous thrombus of left basilic and cephalic veins #Thrombocytopenia -resolving, platelet count 183 -likely due to critical illness #GI bleed -Continue protonix -GI consulted in the past, will hold off EGD/PEG given clinical condition Total Time Spent with Patient (Minutes): 30 minutes History Interval history: Afebrile. Patient on mechanical ventilation. Hospitalist Physical - Physical exam Narrative exam: GENERAL: Intubated. HEENT: ETT/PEGGY in place. CHEST/LUNGS: Coarse breath sound bilaterally. HEART/CARDIOVASCULAR: irregularly irregular rhythm. No murmur, rubs or gallops appreciated. ABDOMEN: +BS. NT/ND. SKIN: Improved edema upper and lower extremities. NEURO: Unable to assess given patient mental status EXTREMITIES: 2+ edema PSYCH: Unable to assess. - Constitutional Vitals: Temp Pulse Resp BP Pulse Ox 98.8 F 97 H 30 H 97/57 92 10/27/20 13:15 10/27/20 14:45 10/27/20 13:15 10/27/20 14:45 10/27/20 13:15 General appearance: Present: no acute distress, other (intubated and minimally responsive to tactile stimuli) - Allied Health Allied health notes reviewed: nursing HEART Score - HEART Score Troponin: Troponin T < 0.010 ng/mL (0.00-0.029) 10/02/20 23:17 Results - Labs CBC & Chem 7: 10/27/20 04:30 10/27/20 04:30 Labs: Laboratory Last Values WBC 10.3 K/mm3 (4.5-11.0) 10/27/20 04:30 RBC 2.79 M/mm3 (3.65-5.03) L 10/27/20 04:30 Hgb 6.9 gm/dl (11.8-15.2) L 10/27/20 04:30 Hct 21.3 % (35.5-45.6) L 10/27/20 04:30 MCV 76 fl (84-94) L 10/27/20 04:30 MCH 25 pg (28-32) L 10/27/20 04:30 MCHC 33 % (32-34) 10/27/20 04:30 RDW 30.2 % (13.2-15.2) H 10/27/20 04:30 Plt Count 182 K/mm3 (140-440) 10/27/20 04:30 Lymph % (Auto) [employer] 10/10/20 10:58 [place] % (Auto) 8.3 % (0.0-7.3) H 10/15/20 05:50 Eos % (Auto) 0.3 % (0.0-4.3) 10/15/20 05:50 Baso % (Auto) [employer] 10/10/20 10:58 Lymph # (Auto) [employer] 10/10/20 10:58 [place] # (Auto) 1.3 K/mm3 (0.0-0.8) H 10/15/20 05:50 Eos # (Auto) 0.0 K/mm3 (0.0-0.4) 10/15/20 05:50 Baso # (Auto) 0.1 K/mm3 (0.0-0.1) 10/15/20 05:50 Add Manual Diff Complete 10/23/20 05:35 Total Counted 100 10/23/20 05:35 Seg Neutrophils % [employer] 10/21/20 Unknown Seg Neuts % (Manual) 83.0 % (40.0-70.0) H 10/23/20 05:35 Band Neutrophils % 5.0 % 10/23/20 05:35 Lymphocytes % (Manual) 9.0 % (13.4-35.0) L 10/23/20 05:35 Reactive Lymphs % (Man) 1.0 % 10/23/20 05:35 Monocytes % (Manual) 1.0 % (0.0-7.3) 10/23/20 05:35 Eosinophils % (Manual) 1.0 % (0.0-4.3) 10/23/20 05:35 Basophils % (Manual) 2.0 % (0.0-1.8) H 10/10/20 10:58 Metamyelocytes % 11.0 % 10/17/20 04:49 Myelocytes % 7.0 % 10/17/20 04:49 Nucleated RBC % 3.0 % (0.0-0.9) H 10/23/20 05:35 Seg Neutrophils # 13.2 K/mm3 (1.8-7.7) H 10/15/20 05:50 Seg Neutrophils # Man 6.1 K/mm3 (1.8-7.7) 10/23/20 05:35 Band Neutrophils # 0.4 K/mm3 10/23/20 05:35 Lymphocytes # (Manual) 0.7 K/mm3 (1.2-5.4) L 10/23/20 05:35 Abs React Lymphs (Man) 0.1 K/mm3 10/23/20 05:35 Monocytes # (Manual) 0.1 K/mm3 (0.0-0.8) 10/23/20 05:35 Eosinophils # (Manual) 0.1 K/mm3 (0.0-0.4) 10/23/20 05:35 Basophils # (Manual) 0.0 K/mm3 (0.0-0.1) 10/23/20 05:35 Metamyelocytes # 0.0 K/mm3 10/23/20 05:35 Myelocytes # 0.0 K/mm3 10/23/20 05:35 Promyelocytes # 0.0 K/mm3 10/23/20 05:35 Blast Cells # 0.0 K/mm3 10/23/20 05:35 WBC Morphology Not Reportable 10/23/20 05:35 Hypersegmented Neuts Not Reportable 10/23/20 05:35 Hyposegmented Neuts Not Reportable 10/23/20 05:35 Hypogranular Neuts Not Reportable 10/23/20 05:35 Smudge Cells Not Reportable 10/23/20 05:35 Toxic Granulation 1+ 10/23/20 05:35 Toxic Vacuolation 1+ 10/23/20 05:35 Dohle Bodies 1+ 10/23/20 05:35 Pelger-Huet Anomaly Not Reportable 10/23/20 05:35 Andrés Rods Not Reportable 10/23/20 05:35 Platelet Estimate Consistent w auto 10/23/20 05:35 Clumped Platelets Not Reportable 10/23/20 05:35 Plt Clumps, EDTA Not Reportable 10/23/20 05:35 Large Platelets Not Reportable 10/23/20 05:35 Giant Platelets Not Reportable 10/23/20 05:35 Platelet Satelliting Not Reportable 10/23/20 05:35 Plt Morphology Comment Not Reportable 10/23/20 05:35 RBC Morphology Not Reportable 10/23/20 05:35 Dimorphic RBCs Not Reportable 10/23/20 05:35 Polychromasia 1+ 10/23/20 05:35 Hypochromasia 2+ 10/23/20 05:35 Poikilocytosis 2+ 10/23/20 05:35 Anisocytosis 3+ 10/23/20 05:35 Microcytosis Not Reportable 10/23/20 05:35 Macrocytosis Not Reportable 10/23/20 05:35 Spherocytes 1+ 10/23/20 05:35 Pappenheimer Bodies Not Reportable 10/23/20 05:35 Sickle Cells Not Reportable 10/23/20 05:35 Target Cells 1+ 10/23/20 05:35 Tear Drop Cells Not Reportable 10/23/20 05:35 Ovalocytes Not Reportable 10/23/20 05:35 Helmet Cells Not Reportable 10/23/20 05:35 Freedman-Carlock Bodies Not Reportable 10/23/20 05:35 [place]bury Rings Not Reportable 10/23/20 05:35 Norbert Cells Not Reportable 10/23/20 05:35 Bite Cells Not Reportable 10/23/20 05:35 Crenated Cell Not Reportable 10/23/20 05:35 Elliptocytes Not Reportable 10/23/20 05:35 Acanthocytes (Spur) 1+ 10/23/20 05:35 Rouleaux Not Reportable 10/23/20 05:35 Hemoglobin C Crystals Not Reportable 10/23/20 05:35 Schistocytes Not Reportable 10/23/20 05:35 Malaria parasites Not Reportable 10/23/20 05:35 Dereck Bodies Not Reportable 10/23/20 05:35 Hem Pathologist Commnt No 10/23/20 05:35 PT 20.4 Sec. (12.2-14.9) H 10/24/20 05:27 INR 1.70 (0.87-1.13) H 10/24/20 05:27 APTT 61.4 Sec. (24.2-36.6) H* 10/21/20 Unknown Thrombin Time 17.8 Sec. (15.1-19.6) 10/02/20 23:17 Fibrinogen 482 mg/dl (211-480) H 10/21/20 Unknown D-Dimer 1992.93 ng/mlDDU (0-234) H 10/21/20 Unknown ABG pH 7.478 (7.320-7.450) H 10/25/20 15:15 POC ABG pCO2 39.3 mmHg (32.0-48.0) 10/25/20 15:15 POC ABG pO2 39.0 mmHg (83-108) L 10/25/20 15:15 POC ABG HCO3 28.5 10/25/20 15:15 ABG O2 Saturation 73.5 (0-100) 10/25/20 15:15 POC ABG Base Excess 4.6 10/25/20 15:15 ABG Hemoglobin 7.7 (12.0-17.5) L 10/25/20 15:15 ABG Oxyhemoglobin 72.9 (94-98) L 10/25/20 15:15 ABG Methemoglobin 0.3 (0.0-1.5) 10/25/20 15:15 ABG Sodium 133.3 mmol/L (136.0-145.0) L 10/25/20 15:15 ABG Potassium 3.4 mmol/L (3.40-4.50) 10/25/20 15:15 ABG Chloride 102.0 mmol/L (98-107) 10/25/20 15:15 ABG Glucose 189 mg/dL (65-95) H 10/25/20 15:15 Carboxyhemoglobin 0.5 (0.5-1.5) 10/25/20 15:15 FiO2 % 30.0 10/25/20 15:15 Sodium 142 mmol/L (137-145) 10/27/20 04:30 Potassium 3.6 mmol/L (3.6-5.0) 10/27/20 04:30 Chloride 103.0 mmol/L (98-107) 10/27/20 04:30 Carbon Dioxide 30 mmol/L (22-30) 10/27/20 04:30 Anion Gap 13 mmol/L 10/27/20 04:30 BUN 38 mg/dL (9-20) H 10/27/20 04:30 Creatinine 2.5 mg/dL (0.8-1.3) H 10/27/20 04:30 Estimated GFR 30 ml/min 10/27/20 04:30 BUN/Creatinine Ratio 15 % 10/27/20 04:30 Glucose 108 mg/dL (75-100) H 10/27/20 04:30 POC Glucose 99 mg/dL (70-105) 10/27/20 12:33 Hemoglobin A1c 5.2 % (4-6) 10/03/20 05:57 Osmolality 267 Mosm/kg 10/07/20 13:54 Lactic Acid 1.50 mmol/L (0.7-2.0) 10/03/20 04:43 Calcium 8.8 mg/dL (8.4-10.2) 10/27/20 04:30 Phosphorus 2.80 mg/dL (2.5-4.5) 10/23/20 05:35 Magnesium 2.10 mg/dL (1.7-2.3) 10/23/20 05:35 Iron 42 ug/dL (49-181) L 10/03/20 05:57 TIBC 305 mcg/dL (250-450) 10/03/20 05:57 Total Bilirubin 0.80 mg/dL (0.1-1.2) 10/24/20 05:27 Direct Bilirubin 0.9 mg/dL (0-0.2) H 10/19/20 04:51 Indirect Bilirubin 0.6 mg/dL 10/19/20 04:51 AST 54 units/L (5-40) H 10/24/20 05:27 ALT 54 units/L (7-56) 10/24/20 05:27 Alkaline Phosphatase 316 units/L (35-129) H 10/24/20 05:27 Ammonia 36.0 umol/L (25-60) 10/24/20 05:27 Total Creatine Kinase 88 units/L (55-170) 10/02/20 23:17 CK-MB (CK-2) 7.5 ng/mL (0.0-4.0) H 10/02/20 23:17 CK-MB (CK-2) Rel Index 8.5 (0-4) H 10/02/20 23:17 Troponin T < 0.010 ng/mL (0.00-0.029) 10/02/20 23:17 Total Protein 5.1 g/dL (6.3-8.2) L 10/24/20 05:27 Albumin 1.7 g/dL (3.9-5) L 10/24/20 05:27 Albumin/Globulin Ratio 0.5 % 10/24/20 05:27 Lipase 17 units/L (13-60) 10/16/20 22:58 Procalcitonin 0.10 ng/mL (<0.15) 10/10/20 10:58 TSH 2.130 mlU/mL (0.270-4.200) 10/07/20 13:54 Total Cortisol 17.4 mcg/dL () 10/09/20 02:46 Arterial Blood Glucose 189 mg/dL (65-95) H 10/25/20 15:15 Arterial Blood Ionized Calcium 4.4 mg/dL (4.6-5.3) L 10/25/20 15:15 Urine Eosinophils None seen (None Seen) 10/14/20 Unknown Urine Osmolality 223 Mosm/kg 10/07/20 Unknown Urine Creatinine 144.2 mg/dL (0.1-20.0) H 10/14/20 Unknown Protein/Creatinin Ratio 0.67 10/14/20 Unknown Urine Sodium 10 mmol/L 10/14/20 Unknown Urine Total Protein 97 mg/dL (5-11.8) H 10/14/20 Unknown Salicylates < 0.3 mg/dL (2.8-20.0) L 10/02/20 23:17 Acetaminophen 5.0 ug/mL (10.0-30.0) L 10/02/20 23:17 Plasma/Serum Alcohol < 0.01 % (0-0.07) 10/02/20 23:17 Coronavirus (PCR) Negative (Negative) 10/14/20 08:00 Hepatitis A IgM Ab Non-reactive (NonReactive) 10/24/20 15:28 Hep Bs Antigen Nonreactive (Negative) 10/24/20 15:28 Hep B Core IgM Ab Non-reactive (NonReactive) 10/24/20 15:28 Hepatitis C Antibody Non-reactive (NonReactive) 10/24/20 15:28 Blood Type O POSITIVE 10/27/20 12:50 Antibody Screen Negative 10/18/20 19:08 Crossmatch See Detail 10/27/20 12:50 Jackson/IV: Voiding Method Indwelling Catheter Active Medications - Current Medications Current Medications: Generic Name Dose Route Start Last Admin Trade Name Freq PRN Reason Stop Dose Admin Acetaminophen 650 mg 10/03/20 02:10 10/06/20 15:28 Acetaminophen 325 Mg Tab PO 650 mg Q4H PRN Administration Pain MILD(1-3)/Fever >100.5/ROMERO Al Hydrox/Mg Hydrox/Simethicone 30 ml 10/03/20 02:10 Alum-Mag Hydroxide-Simethicone [phone]/[phone] Oral Liqd 30 Ml PO Q4H PRN Indigestion Lipase/Protease/Amylase 1 each 10/03/20 16:51 Lipase 10,500/Protease 25,000/Amylase 43,750 (Units) Dr Reis FEEDTUBE PRN PRN For Clogged Feeding Tube Dextrose 50 ml 10/16/20 12:42 10/21/20 17:39 Dextrose 50% In Water (25gm) 50 Ml Syringe IV 50 ml Q30MIN PRN Administration Hypoglycemia Protocol Fentanyl 50 mcg 10/22/20 10:00 10/27/20 00:05 Fentanyl 100 Mcg/2 Ml Inj IV 50 mcg Q4HR PRN Administration Pain , Severe (7-10) Ferrous Sulfate 308 mg 10/16/20 10:00 10/27/20 09:04 Ferrous Sulfate 308 Mg (62mg Elemental Iron) / 7 Ml Elixir FEEDTUBE 308 mg DAILY JOSE Administration Folic Acid 1 mg 10/03/20 10:00 10/27/20 09:05 Folic Acid 1 Mg Tab PO 1 mg QDAY JOSE Administration Levetiracetam 250 mg/ Dextrose 102.5 mls @ 400 mls/hr 10/10/20 22:00 10/27/20 09:04 IV 400 mls/hr Q12HR JOSE Administration NORepinephrine/NS 8 MG-250 ML 8 mg in 250 mls @ 3.75 mls/hr 10/16/20 19:00 10/21/20 16:56 Norepinephrine/Ns 8 Mg-250 Ml (Double Conc) IV 0 mcg/min TITRATE JOSE 0 mls/hr Titration Protocol 2 MCG/MIN Magnesium Hydroxide 30 ml 10/03/20 02:10 Magnesium Hydroxide (Mom) Oral Liqd Udc PO Q4H PRN Constipation Midodrine 10 mg 10/24/20 18:00 10/27/20 09:05 Midodrine 5 Mg Tab PO 10 mg Q8H JOSE Administration Pantoprazole Sodium 40 mg 10/04/20 15:00 10/27/20 09:04 Pantoprazole 40 Mg Inj IV 40 mg QDAY JOSE Administration Promethazine HCl 25 mg 10/03/20 02:10 Promethazine 25 Mg Rect Supp [place] Q6H PRN N/V IF NPO AND NO IV ACCESS Senna 8.6 mg 10/03/20 02:10 Sennosides 8.6 Mg Tab PO Q12HR PRN Constipation Simple Syrup 15 ml 10/03/20 16:51 10/19/20 02:08 Simple Syrup 15 Ml FEEDTUBE 15 ml PRN PRN Administration Hypoglycemia Simple Syrup 30 ml 10/03/20 16:51 10/16/20 22:02 Simple Syrup 15 Ml FEEDTUBE 30 ml PRN PRN Administration Hypoglycemia Sodium Bicarbonate 325 mg 10/03/20 16:51 Sodium Bicarbonate 325 Mg Tab FEEDTUBE PRN PRN For Clogged Feeding Tube Nutrition/Malnutrition Assess - Dietary Evaluation Nutrition/Malnutrition Findings: Nutrition Notes Start: 10/03/20 08:51 Freq: Status: Active Protocol: Document 10/26/20 12:33 (Rec: 10/26/20 12:38 [id number]) Nutrition Notes Initial or Follow up Brief Note Current Diagnosis Diabetes Other Pertinent Diagnosis AMS, hypothermia, pneu, anemia , atherosclerotic cerebrovascular disease Current Diet Nepro 1.8 at 40 ml/hr Subjective/Other Information Nepro TF back in stock. Informed RN to resume Nepro TF . Nutrition Intervention Nutrition Support: Nepro at 40ml/hour. For hyponatremia flush 50 ml q4h, once resolved resume flush at 170 ml q4h Kcal 1,728 Protein (gm) 78 Fluid (mL) 698 Goal #1 Meet at least 75% of protein and energy needs via TF Follow-Up By: 10/30/20 Additional Comments F/u: TF change and tolerance
[2020-10-28] MEDS: MIDODRINE 5 MG TAB PO SCH ×3 (04:50→18:06)
[2020-10-28 05:05] LABS: Hematocrit 24.3 % (35.5-45.6); Hemoglobin 7.8 gm/dl (11.8-15.2); Mean Corpuscular HGB Conc 32 % (32-34); Mean Corpuscular Volume 79 fl (84-94); Platelet Count 211 K/mm3 (140-440); Red Blood Count 3.07 M/mm3 (3.65-5.03)
[2020-10-28 05:08] LABS: Red Cell Distribution Width 29.5 % (13.2-15.2)
[2020-10-28 05:23] LABS: Calcium 8.6 mg/dL (8.4-10.2)
[2020-10-28] MEDS: fentaNYL 100 MCG/2 ML INJ IV PRN (08:56)
[2020-10-28] MEDS: FOLIC ACID 1 MG TAB PO SCH (09:00)
[2020-10-28] MEDS: MULTIVITAMIN / MINERAL ORAL LIQUID 15 ML PO SCH (09:00)
[2020-10-28] MEDS: PANTOPRAZOLE 40 MG INJ IV SCH (09:00)
--- NOTE | 2020-10-28 09:53 | Progress Note ---
Assessment and Plan Acute hypoxemic respiratory failure Bilateral pneumonia Bilateral pleural effusions Bilateral pulmonary edema Acute kidney injury Acute encephalopathy Severe protein calorie malnutrition Oropharyngeal dysphagia Anemia that is microcytic Oropharyngeal dysphagia Thrombocytopenia Hyponatremia -Continue with supportive HD -Continue to monitor off antibiotics, trend WCC and temperature curve -Daily SBT as tolerated -Add Scopolamine and Robinul for secretion management -CXR, ABG as clinically indicated - VAP bundle addressed, aspiration precautions (HOB > 40 degrees) -Titrate supplemental oxygen to keep SpO2 88-90% - SAT and SBT daily as tolerated and per protocol -Keep negative fluid balance as tolerated by hemodynamics and renal function to help facilitate weaning trials -HD/UF per Renal - continue glycemic control for target BG 140-180 mg while critically ill; avoid hypoglycemia - bronchodilators with pulmonary hygiene per RT - avoid nephrotoxins, renally dose all medications - prn analgesia per pain score - Maintenance of sleep-wake cycle, avoid delirium - supportive transfusions for serum Hgb < 7.0g/dl -Enteric nutritional support at goal - Stress ulcer prophylaxis- - continue mobility , off loading, frequent turning per facility protocols for pressure ulcer prevention - Monitor hemodynamics closely - continue other care per attending / other consultants Based on previous conversation with the team, family want aggressive care. The patient is on minimal vent support and may benefit from early tracheostomy and PEG to facilitate weaning from MVS If we are unable to successfully liberate from MVS by Friday, will get surgery for Tracheostomy and PEG placement COVID SPECIFIC INTERVENTIONS - COVID-19 test negative CONDITION: CRITICAL PROGNOSIS: GUARDED CODE STATUS: FULL CODE The high probability of a clinically significant, sudden or life-threatening deterioration of the [respiratory, cardiovascular, & neurologic] system(s) required my full and direct attention, intervention and personal management. The aggregate critical care time was [33] minutes without overlap. Time includes spent on; [x] Data Review and interpretation [x] Patient assessment and monitoring of vital signs [x] Documentation [x] Medication orders and management Subjective Date of service: 10/28/20 Principal diagnosis: Ac hypoxemic resp failure; Pneumonia; BETSY; Ac. encephalopathy Interval history: Patient is seen today for: Acute hypoxemic respiratory failure; Pneumonia; P leural effusions; BETSY; Acute encephalopathy; Severe protein calorie malnutrition Seen and examined at bedside; 24hour events reviewed; nursing and respiratory care staff consulted; no adverse overnight events reported to me; resting in bed; remains on MVS- low settings; off all vasopressors but remains on Midodrine; Remains off sedation,getting HD. More awake and alert, appears to be tracking voice Objective Vital Signs - 12hr 10/27/20 10/27/20 10/27/20 22:00 22:15 22:19 Temperature Pulse Rate 97 H 100 H 83 Pulse Rate [ From Monitor] Respiratory 21 20 20 Rate Blood Pressure 104/60 102/58 102/58 O2 Sat by Pulse 97 94 96 Oximetry O2 Sat by Pulse Oximetry [ Anterior Bilateral Throughout] 10/27/20 10/27/20 10/27/20 22:30 22:45 23:00 Temperature Pulse Rate 96 H 102 H 90 Pulse Rate [ From Monitor] Respiratory 18 21 18 Rate Blood Pressure 98/57 107/60 100/55 O2 Sat by Pulse 95 94 93 Oximetry O2 Sat by Pulse Oximetry [ Anterior Bilateral Throughout] 10/27/20 10/27/20 10/27/20 23:15 23:30 23:34 Temperature 99 F Pulse Rate 116 H 93 H Pulse Rate [ From Monitor] Respiratory 20 20 Rate Blood Pressure 102/65 110/57 O2 Sat by Pulse 95 94 Oximetry O2 Sat by Pulse Oximetry [ Anterior Bilateral Throughout] 10/27/20 10/28/20 10/28/20 23:45 00:00 00:09 Temperature Pulse Rate 105 H 96 H 95 H Pulse Rate [ 92 H From Monitor] Respiratory 20 20 Rate Blood Pressure 108/60 115/55 115/55 O2 Sat by Pulse 91 94 94 Oximetry O2 Sat by Pulse Oximetry [ Anterior Bilateral Throughout] 10/28/20 10/28/20 10/28/20 00:15 00:30 00:45 Temperature Pulse Rate 99 H 98 H 94 H Pulse Rate [ From Monitor] Respiratory 20 20 20 Rate Blood Pressure 108/62 106/65 109/71 O2 Sat by Pulse 93 92 93 Oximetry O2 Sat by Pulse Oximetry [ Anterior Bilateral Throughout] 10/28/20 10/28/20 10/28/20 01:00 01:15 01:30 Temperature Pulse Rate 105 H 99 H 107 H Pulse Rate [ From Monitor] Respiratory 21 20 20 Rate Blood Pressure 117/63 113/59 114/61 O2 Sat by Pulse 91 93 93 Oximetry O2 Sat by Pulse Oximetry [ Anterior Bilateral Throughout] 10/28/20 10/28/20 10/28/20 01:45 02:00 02:15 Temperature Pulse Rate 97 H 101 H 108 H Pulse Rate [ From Monitor] Respiratory 20 20 27 H Rate Blood Pressure 110/58 105/62 102/69 O2 Sat by Pulse 92 87 85 Oximetry O2 Sat by Pulse Oximetry [ Anterior Bilateral Throughout] 10/28/20 10/28/20 10/28/20 02:30 02:45 03:01 Temperature Pulse Rate 103 H 105 H 99 H Pulse Rate [ From Monitor] Respiratory 20 21 19 Rate Blood Pressure 103/51 106/67 99/59 O2 Sat by Pulse 86 86 86 Oximetry O2 Sat by Pulse Oximetry [ Anterior Bilateral Throughout] 10/28/20 10/28/20 10/28/20 03:15 03:20 03:30 Temperature 99.5 F Pulse Rate 99 H 116 H Pulse Rate [ From Monitor] Respiratory 21 19 Rate Blood Pressure 94/64 112/61 O2 Sat by Pulse 86 85 Oximetry O2 Sat by Pulse Oximetry [ Anterior Bilateral Throughout] 10/28/20 10/28/20 10/28/20 03:45 03:59 04:00 Temperature Pulse Rate 119 H 108 H 116 H Pulse Rate [ 107 H From Monitor] Respiratory 17 20 Rate Blood Pressure 120/72 100/58 100/58 O2 Sat by Pulse 91 92 90 Oximetry O2 Sat by Pulse Oximetry [ Anterior Bilateral Throughout] 10/28/20 10/28/20 10/28/20 04:15 04:30 04:45 Temperature Pulse Rate 100 H 111 H 114 H Pulse Rate [ From Monitor] Respiratory 20 13 21 Rate Blood Pressure 113/62 114/93 116/80 O2 Sat by Pulse 91 88 90 Oximetry O2 Sat by Pulse Oximetry [ Anterior Bilateral Throughout] 10/28/20 10/28/20 10/28/20 05:00 05:15 05:30 Temperature Pulse Rate 105 H 108 H 119 H Pulse Rate [ From Monitor] Respiratory 22 23 20 Rate Blood Pressure 104/57 114/63 105/60 O2 Sat by Pulse 90 89 86 Oximetry O2 Sat by Pulse Oximetry [ Anterior Bilateral Throughout] 10/28/20 10/28/20 10/28/20 05:45 06:01 06:15 Temperature Pulse Rate 104 H 113 H 101 H Pulse Rate [ From Monitor] Respiratory 24 21 20 Rate Blood Pressure 124/78 126/62 123/100 O2 Sat by Pulse 91 94 92 Oximetry O2 Sat by Pulse Oximetry [ Anterior Bilateral Throughout] 10/28/20 10/28/20 10/28/20 06:31 06:45 07:00 Temperature 99.3 F Pulse Rate 107 H 98 H 97 H Pulse Rate [ From Monitor] Respiratory 22 22 21 Rate Blood Pressure 133/68 111/62 117/69 O2 Sat by Pulse 95 91 92 Oximetry O2 Sat by Pulse Oximetry [ Anterior Bilateral Throughout] 10/28/20 10/28/20 10/28/20 07:15 07:30 07:45 Temperature Pulse Rate 112 H 117 H 110 H Pulse Rate [ From Monitor] Respiratory 20 20 25 H Rate Blood Pressure 113/54 119/74 115/70 O2 Sat by Pulse 97 98 97 Oximetry O2 Sat by Pulse Oximetry [ Anterior Bilateral Throughout] 10/28/20 10/28/20 10/28/20 08:00 08:15 08:30 Temperature 99.5 F Pulse Rate 135 H 149 H 121 H Pulse Rate [ From Monitor] Respiratory 22 Rate Blood Pressure 116/80 114/70 114/72 O2 Sat by Pulse 100 100 100 Oximetry O2 Sat by Pulse 100 Oximetry [ Anterior Bilateral Throughout] 10/28/20 10/28/20 10/28/20 08:45 08:50 09:00 Temperature Pulse Rate 115 H 104 H 103 H Pulse Rate [ From Monitor] Respiratory 20 24 Rate Blood Pressure 109/67 109/67 93/53 O2 Sat by Pulse 97 99 Oximetry O2 Sat by Pulse Oximetry [ Anterior Bilateral Throughout] 10/28/20 10/28/20 10/28/20 09:15 09:30 09:45 Temperature Pulse Rate 95 H 99 H 95 H Pulse Rate [ From Monitor] Respiratory 20 21 19 Rate Blood Pressure 90/60 87/59 90/66 O2 Sat by Pulse 100 100 100 Oximetry O2 Sat by Pulse Oximetry [ Anterior Bilateral Throughout] Constitutional: no acute distress, other (elderly and chronically ill looking male with mildly increased respiratory effort at rest on MVS) Eyes: non-icteric ENT: oropharynx dry, other (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, RIJ HD) Neck: supple, no lymphadenopathy, no JVD, other (LAJ Vascath) Effort: mildly labored Ascultation: Bilateral: diminished breath sounds, rhonchi Percussion: Bilateral: not dull Cardiovascular: irregular rhythm (irregularly irregular) Gastrointestinal: normoactive bowel sounds, soft, non-tender, non-distended, other (Jackson catheter) Integumentary: normal Extremities: no cyanosis, pulses normal, no ischemia or petechiae, edema (1+) Neurologic: pupils equal and round, other (obeys simple commnads, squeezed my hand on the right side) Psychiatric: mood appropriate, affect normal CBC and BMP: 10/29/20 09:21 10/29/20 08:19 ABG, PT/INR, D-dimer: ABG ABG pH 7.478 (7.320-7.450) H 10/25/20 15:15 POC ABG pCO2 39.3 mmHg (32.0-48.0) 10/25/20 15:15 POC ABG pO2 39.0 mmHg (83-108) L 10/25/20 15:15 POC ABG HCO3 28.5 10/25/20 15:15 ABG O2 Saturation 73.5 (0-100) 10/25/20 15:15 PT/INR, D-dimer PT 20.4 Sec. (12.2-14.9) H 10/24/20 05:27 INR 1.70 (0.87-1.13) H 10/24/20 05:27 D-Dimer 1992.93 ng/mlDDU (0-234) H 10/21/20 Unknown Abnormal lab findings: Abnormal Labs 10/02/20 10/02/20 10/02/20 23:17 23:17 23:17 WBC RBC 3.31 L Hgb 6.7 L Hct 21.8 L MCV 66 L MCH 20 L MCHC 31 L RDW 31.7 H Plt Count [place] % (Auto) [place] # (Auto) Seg Neutrophils % Seg Neuts % (Manual) 79.0 H Lymphocytes % (Manual) 11.0 L Monocytes % (Manual) 10.0 H Basophils % (Manual) Nucleated RBC % Seg Neutrophils # Seg Neutrophils # Man Lymphocytes # (Manual) 0.9 L Monocytes # (Manual) Basophils # (Manual) PT 20.8 H INR 1.74 H APTT 57.6 H Fibrinogen D-Dimer ABG pH POC ABG pCO2 POC ABG pO2 ABG Hemoglobin ABG Oxyhemoglobin ABG Sodium ABG Potassium ABG Chloride ABG Glucose Sodium Potassium Chloride Carbon Dioxide BUN Creatinine Glucose 42 L POC Glucose Lactic Acid Calcium Magnesium Iron Total Bilirubin Direct Bilirubin AST ALT Alkaline Phosphatase Ammonia CK-MB (CK-2) 7.5 H CK-MB (CK-2) Rel Index 8.5 H Total Protein Albumin 2.9 L Arterial Blood Glucose Arterial Blood Ionized Calcium Urine Creatinine Urine Total Protein Salicylates Acetaminophen Crossmatch 10/02/20 10/02/20 10/02/20 23:17 23:17 23:17 WBC RBC Hgb Hct MCV MCH MCHC RDW Plt Count [place] % (Auto) [place] # (Auto) Seg Neutrophils % Seg Neuts % (Manual) Lymphocytes % (Manual) Monocytes % (Manual) Basophils % (Manual) Nucleated RBC % Seg Neutrophils # Seg Neutrophils # Man Lymphocytes # (Manual) Monocytes # (Manual) Basophils # (Manual) PT INR APTT Fibrinogen D-Dimer ABG pH POC ABG pCO2 POC ABG pO2 ABG Hemoglobin ABG Oxyhemoglobin ABG Sodium ABG Potassium ABG Chloride ABG Glucose Sodium Potassium Chloride Carbon Dioxide BUN Creatinine Glucose POC Glucose Lactic Acid 2.20 H* Calcium Magnesium Iron Total Bilirubin Direct Bilirubin AST ALT Alkaline Phosphatase Ammonia 22.0 L CK-MB (CK-2) CK-MB (CK-2) Rel Index Total Protein Albumin Arterial Blood Glucose Arterial Blood Ionized Calcium Urine Creatinine Urine Total Protein Salicylates < 0.3 L Acetaminophen Crossmatch 10/02/20 10/03/20 10/03/20 23:17 05:57 05:57 WBC RBC 2.66 L Hgb 5.3 L* Hct 17.8 L* MCV 67 L MCH 20 L MCHC 30 L RDW 32.1 H Plt Count [place] % (Auto) [place] # (Auto) Seg Neutrophils % Seg Neuts % (Manual) Lymphocytes % (Manual) 2.0 L Monocytes % (Manual) Basophils % (Manual) Nucleated RBC % 1.0 H Seg Neutrophils # Seg Neutrophils # Man 8.6 H Lymphocytes # (Manual) 0.2 L Monocytes # (Manual) Basophils # (Manual) PT INR APTT Fibrinogen D-Dimer ABG pH POC ABG pCO2 POC ABG pO2 ABG Hemoglobin ABG Oxyhemoglobin ABG Sodium ABG Potassium ABG Chloride ABG Glucose Sodium Potassium Chloride Carbon Dioxide BUN Creatinine Glucose POC Glucose Lactic Acid Calcium Magnesium Iron Total Bilirubin Direct Bilirubin AST ALT Alkaline Phosphatase Ammonia CK-MB (CK-2) CK-MB (CK-2) Rel Index Total Protein Albumin Arterial Blood Glucose Arterial Blood Ionized Calcium Urine Creatinine Urine Total Protein Salicylates Acetaminophen 5.0 L Crossmatch See Detail 10/03/20 10/03/20 10/03/20 05:57 05:57 06:00 WBC RBC Hgb Hct MCV MCH MCHC RDW Plt Count [place] % (Auto) [place] # (Auto) Seg Neutrophils % Seg Neuts % (Manual) Lymphocytes % (Manual) Monocytes % (Manual) Basophils % (Manual) Nucleated RBC % Seg Neutrophils # Seg Neutrophils # Man Lymphocytes # (Manual) Monocytes # (Manual) Basophils # (Manual) PT INR APTT Fibrinogen D-Dimer ABG pH POC ABG pCO2 POC ABG pO2 ABG Hemoglobin ABG Oxyhemoglobin ABG Sodium ABG Potassium ABG Chloride ABG Glucose Sodium Potassium Chloride Carbon Dioxide BUN Creatinine Glucose 52 L POC Glucose 31 L Lactic Acid Calcium Magnesium Iron 42 L Total Bilirubin Direct Bilirubin AST ALT Alkaline Phosphatase Ammonia CK-MB (CK-2) CK-MB (CK-2) Rel Index Total Protein 5.8 L Albumin 3.1 L Arterial Blood Glucose Arterial Blood Ionized Calcium Urine Creatinine Urine Total Protein Salicylates Acetaminophen Crossmatch 10/03/20 10/03/20 10/03/20 07:34 09:43 10:57 WBC RBC Hgb Hct MCV MCH MCHC RDW Plt Count [place] % (Auto) [place] # (Auto) Seg Neutrophils % Seg Neuts % (Manual) Lymphocytes % (Manual) Monocytes % (Manual) Basophils % (Manual) Nucleated RBC % Seg Neutrophils # Seg Neutrophils # Man Lymphocytes # (Manual) Monocytes # (Manual) Basophils # (Manual) PT INR APTT Fibrinogen D-Dimer ABG pH POC ABG pCO2 POC ABG pO2 ABG Hemoglobin ABG Oxyhemoglobin ABG Sodium ABG Potassium ABG Chloride ABG Glucose Sodium Potassium Chloride Carbon Dioxide BUN Creatinine Glucose POC Glucose 59 L 41 L 31 L Lactic Acid Calcium Magnesium Iron Total Bilirubin Direct Bilirubin AST ALT Alkaline Phosphatase Ammonia CK-MB (CK-2) CK-MB (CK-2) Rel Index Total Protein Albumin Arterial Blood Glucose Arterial Blood Ionized Calcium Urine Creatinine Urine Total Protein Salicylates Acetaminophen Crossmatch 10/03/20 10/03/20 10/03/20 11:21 12:00 12:14 WBC RBC Hgb Hct MCV MCH MCHC RDW Plt Count [place] % (Auto) [place] # (Auto) Seg Neutrophils % Seg Neuts % (Manual) Lymphocytes % (Manual) Monocytes % (Manual) Basophils % (Manual) Nucleated RBC % Seg Neutrophils # Seg Neutrophils # Man Lymphocytes # (Manual) Monocytes # (Manual) Basophils # (Manual) PT INR APTT Fibrinogen D-Dimer ABG pH POC ABG pCO2 POC ABG pO2 ABG Hemoglobin ABG Oxyhemoglobin ABG Sodium ABG Potassium ABG Chloride ABG Glucose Sodium Potassium Chloride Carbon Dioxide BUN Creatinine Glucose POC Glucose 62 L 26 L 140 H Lactic Acid Calcium Magnesium Iron Total Bilirubin Direct Bilirubin AST ALT Alkaline Phosphatase Ammonia CK-MB (CK-2) CK-MB (CK-2) Rel Index Total Protein Albumin Arterial Blood Glucose Arterial Blood Ionized Calcium Urine Creatinine Urine Total Protein Salicylates Acetaminophen Crossmatch 10/03/20 10/03/20 10/03/20 13:33 14:19 14:59 WBC RBC Hgb Hct MCV MCH MCHC RDW Plt Count [place] % (Auto) [place] # (Auto) Seg Neutrophils % Seg Neuts % (Manual) Lymphocytes % (Manual) Monocytes % (Manual) Basophils % (Manual) Nucleated RBC % Seg Neutrophils # Seg Neutrophils # Man Lymphocytes # (Manual) Monocytes # (Manual) Basophils # (Manual) PT INR APTT Fibrinogen D-Dimer ABG pH POC ABG pCO2 POC ABG pO2 ABG Hemoglobin ABG Oxyhemoglobin ABG Sodium ABG Potassium ABG Chloride ABG Glucose Sodium Potassium Chloride Carbon Dioxide BUN Creatinine Glucose POC Glucose 24 L 59 L 40 L Lactic Acid Calcium Magnesium Iron Total Bilirubin Direct Bilirubin AST ALT Alkaline Phosphatase Ammonia CK-MB (CK-2) CK-MB (CK-2) Rel Index Total Protein Albumin Arterial Blood Glucose Arterial Blood Ionized Calcium Urine Creatinine Urine Total Protein Salicylates Acetaminophen Crossmatch 10/03/20 10/03/20 10/03/20 15:26 15:57 16:35 WBC RBC Hgb Hct MCV MCH MCHC RDW Plt Count [place] % (Auto) [place] # (Auto) Seg Neutrophils % Seg Neuts % (Manual) Lymphocytes % (Manual) Monocytes % (Manual) Basophils % (Manual) Nucleated RBC % Seg Neutrophils # Seg Neutrophils # Man Lymphocytes # (Manual) Monocytes # (Manual) Basophils # (Manual) PT INR APTT Fibrinogen D-Dimer ABG pH POC ABG pCO2 POC ABG pO2 ABG Hemoglobin ABG Oxyhemoglobin ABG Sodium ABG Potassium ABG Chloride ABG Glucose Sodium Potassium Chloride Carbon Dioxide BUN Creatinine Glucose POC Glucose 54 L 45 L 42 L Lactic Acid Calcium Magnesium Iron Total Bilirubin Direct Bilirubin AST ALT Alkaline Phosphatase Ammonia CK-MB (CK-2) CK-MB (CK-2) Rel Index Total Protein Albumin Arterial Blood Glucose Arterial Blood Ionized Calcium Urine Creatinine Urine Total Protein Salicylates Acetaminophen Crossmatch 10/03/20 10/03/20 10/03/20 17:16 18:37 19:56 WBC RBC Hgb Hct MCV MCH MCHC RDW Plt Count [place] % (Auto) [place] # (Auto) Seg Neutrophils % Seg Neuts % (Manual) Lymphocytes % (Manual) Monocytes % (Manual) Basophils % (Manual) Nucleated RBC % Seg Neutrophils # Seg Neutrophils # Man Lymphocytes # (Manual) Monocytes # (Manual) Basophils # (Manual) PT INR APTT Fibrinogen D-Dimer ABG pH POC ABG pCO2 POC ABG pO2 ABG Hemoglobin ABG Oxyhemoglobin ABG Sodium ABG Potassium ABG Chloride ABG Glucose Sodium Potassium Chloride Carbon Dioxide BUN Creatinine Glucose POC Glucose 41 L 46 L 57 L Lactic Acid Calcium Magnesium Iron Total Bilirubin Direct Bilirubin AST ALT Alkaline Phosphatase Ammonia CK-MB (CK-2) CK-MB (CK-2) Rel Index Total Protein Albumin Arterial Blood Glucose Arterial Blood Ionized Calcium Urine Creatinine Urine Total Protein Salicylates Acetaminophen Crossmatch 10/03/20 10/04/20 10/04/20 21:32 01:04 01:11 WBC RBC Hgb 9.6 L D Hct 28.3 L D MCV MCH MCHC RDW Plt Count [place] % (Auto) [place] # (Auto) Seg Neutrophils % Seg Neuts % (Manual) Lymphocytes % (Manual) Monocytes % (Manual) Basophils % (Manual) Nucleated RBC % Seg Neutrophils # Seg Neutrophils # Man Lymphocytes # (Manual) Monocytes # (Manual) Basophils # (Manual) PT INR APTT Fibrinogen D-Dimer ABG pH POC ABG pCO2 POC ABG pO2 ABG Hemoglobin ABG Oxyhemoglobin ABG Sodium ABG Potassium ABG Chloride ABG Glucose Sodium Potassium Chloride Carbon Dioxide BUN Creatinine Glucose POC Glucose 65 L 51 L Lactic Acid Calcium Magnesium Iron Total Bilirubin Direct Bilirubin AST ALT Alkaline Phosphatase Ammonia CK-MB (CK-2) CK-MB (CK-2) Rel Index Total Protein Albumin Arterial Blood Glucose Arterial Blood Ionized Calcium Urine Creatinine Urine Total Protein Salicylates Acetaminophen Crossmatch 10/04/20 10/04/20 10/04/20 05:59 05:59 15:10 WBC 13.4 H RBC Hgb 9.9 L 10.1 L Hct 32.0 L 31.8 L MCV 76 L MCH 24 L MCHC 31 L RDW 31.3 H Plt Count [place] % (Auto) [place] # (Auto) Seg Neutrophils % Seg Neuts % (Manual) 86.0 H Lymphocytes % (Manual) 6.0 L Monocytes % (Manual) 8.0 H Basophils % (Manual) Nucleated RBC % 2.0 H Seg Neutrophils # Seg Neutrophils # Man 11.5 H Lymphocytes # (Manual) 0.8 L Monocytes # (Manual) 1.1 H Basophils # (Manual) PT INR APTT Fibrinogen D-Dimer ABG pH POC ABG pCO2 POC ABG pO2 ABG Hemoglobin ABG Oxyhemoglobin ABG Sodium ABG Potassium ABG Chloride ABG Glucose Sodium 136 L Potassium 3.5 L Chloride Carbon Dioxide 19 L D BUN Creatinine Glucose POC Glucose Lactic Acid Calcium Magnesium Iron Total Bilirubin Direct Bilirubin AST ALT Alkaline Phosphatase Ammonia CK-MB (CK-2) CK-MB (CK-2) Rel Index Total Protein Albumin 2.6 L Arterial Blood Glucose Arterial Blood Ionized Calcium Urine Creatinine Urine Total Protein Salicylates Acetaminophen Crossmatch 10/04/20 10/04/20 10/05/20 16:28 22:33 04:43 WBC RBC Hgb 10.5 L Hct 32.5 L MCV MCH MCHC RDW Plt Count [place] % (Auto) [place] # (Auto) Seg Neutrophils % Seg Neuts % (Manual) Lymphocytes % (Manual) Monocytes % (Manual) Basophils % (Manual) Nucleated RBC % Seg Neutrophils # Seg Neutrophils # Man Lymphocytes # (Manual) Monocytes # (Manual) Basophils # (Manual) PT INR APTT Fibrinogen D-Dimer ABG pH POC ABG pCO2 POC ABG pO2 ABG Hemoglobin ABG Oxyhemoglobin ABG Sodium ABG Potassium ABG Chloride ABG Glucose Sodium Potassium Chloride Carbon Dioxide BUN Creatinine Glucose POC Glucose 66 L 113 H Lactic Acid Calcium Magnesium Iron Total Bilirubin Direct Bilirubin AST ALT Alkaline Phosphatase Ammonia CK-MB (CK-2) CK-MB (CK-2) Rel Index Total Protein Albumin Arterial Blood Glucose Arterial Blood Ionized Calcium Urine Creatinine Urine Total Protein Salicylates Acetaminophen Crossmatch 10/05/20 10/05/20 10/05/20 05:00 09:42 11:57 WBC RBC Hgb 9.8 L Hct 30.5 L MCV 74 L MCH 24 L MCHC RDW 31.6 H Plt Count [place] % (Auto) [place] # (Auto) Seg Neutrophils % Seg Neuts % (Manual) Lymphocytes % (Manual) Monocytes % (Manual) Basophils % (Manual) Nucleated RBC % Seg Neutrophils # Seg Neutrophils # Man Lymphocytes # (Manual) Monocytes # (Manual) Basophils # (Manual) PT INR APTT Fibrinogen D-Dimer ABG pH POC ABG pCO2 POC ABG pO2 ABG Hemoglobin ABG Oxyhemoglobin ABG Sodium ABG Potassium ABG Chloride ABG Glucose Sodium 132 L Potassium 3.5 L Chloride Carbon Dioxide 19 L BUN Creatinine 0.7 L Glucose POC Glucose 129 H Lactic Acid Calcium Magnesium Iron Total Bilirubin Direct Bilirubin AST ALT Alkaline Phosphatase Ammonia CK-MB (CK-2) CK-MB (CK-2) Rel Index Total Protein Albumin Arterial Blood Glucose Arterial Blood Ionized Calcium Urine Creatinine Urine Total Protein Salicylates Acetaminophen Crossmatch 10/05/20 10/05/20 10/06/20 16:47 21:51 05:07 WBC RBC Hgb 9.4 L Hct 30.1 L MCV 76 L MCH 24 L MCHC 31 L RDW 31.1 H Plt Count [place] % (Auto) [place] # (Auto) Seg Neutrophils % Seg Neuts % (Manual) Lymphocytes % (Manual) Monocytes % (Manual) Basophils % (Manual) Nucleated RBC % Seg Neutrophils # Seg Neutrophils # Man Lymphocytes # (Manual) Monocytes # (Manual) Basophils # (Manual) PT INR APTT Fibrinogen D-Dimer ABG pH POC ABG pCO2 POC ABG pO2 ABG Hemoglobin ABG Oxyhemoglobin ABG Sodium ABG Potassium ABG Chloride ABG Glucose Sodium Potassium Chloride Carbon Dioxide BUN Creatinine Glucose POC Glucose 132 H 115 H Lactic Acid Calcium Magnesium Iron Total Bilirubin Direct Bilirubin AST ALT Alkaline Phosphatase Ammonia CK-MB (CK-2) CK-MB (CK-2) Rel Index Total Protein Albumin Arterial Blood Glucose Arterial Blood Ionized Calcium Urine Creatinine Urine Total Protein Salicylates Acetaminophen Crossmatch 10/06/20 10/06/20 10/06/20 05:07 15:37 21:01 WBC RBC Hgb Hct MCV MCH MCHC RDW Plt Count [place] % (Auto) [place] # (Auto) Seg Neutrophils % Seg Neuts % (Manual) Lymphocytes % (Manual) Monocytes % (Manual) Basophils % (Manual) Nucleated RBC % Seg Neutrophils # Seg Neutrophils # Man Lymphocytes # (Manual) Monocytes # (Manual) Basophils # (Manual) PT INR APTT Fibrinogen D-Dimer ABG pH POC ABG pCO2 POC ABG pO2 ABG Hemoglobin ABG Oxyhemoglobin ABG Sodium ABG Potassium ABG Chloride ABG Glucose Sodium 133 L Potassium 3.5 L Chloride Carbon Dioxide 21 L BUN Creatinine 0.6 L Glucose 105 H POC Glucose 136 H 108 H Lactic Acid Calcium Magnesium Iron Total Bilirubin Direct Bilirubin AST ALT Alkaline Phosphatase Ammonia CK-MB (CK-2) CK-MB (CK-2) Rel Index Total Protein Albumin Arterial Blood Glucose Arterial Blood Ionized Calcium Urine Creatinine Urine Total Protein Salicylates Acetaminophen Crossmatch 10/07/20 10/07/20 10/07/20 04:52 04:52 06:07 WBC RBC Hgb 9.6 L Hct 29.4 L MCV 73 L MCH 24 L MCHC RDW 32.2 H Plt Count [place] % (Auto) [place] # (Auto) Seg Neutrophils % Seg Neuts % (Manual) Lymphocytes % (Manual) Monocytes % (Manual) Basophils % (Manual) Nucleated RBC % Seg Neutrophils # Seg Neutrophils # Man Lymphocytes # (Manual) Monocytes # (Manual) Basophils # (Manual) PT INR APTT Fibrinogen D-Dimer ABG pH POC ABG pCO2 POC ABG pO2 ABG Hemoglobin ABG Oxyhemoglobin ABG Sodium ABG Potassium ABG Chloride ABG Glucose Sodium 128 L Potassium Chloride Carbon Dioxide 20 L BUN Creatinine 0.7 L Glucose POC Glucose 110 H Lactic Acid Calcium Magnesium Iron Total Bilirubin Direct Bilirubin AST ALT Alkaline Phosphatase Ammonia CK-MB (CK-2) CK-MB (CK-2) Rel Index Total Protein Albumin Arterial Blood Glucose Arterial Blood Ionized Calcium Urine Creatinine Urine Total Protein Salicylates Acetaminophen Crossmatch 10/07/20 10/07/20 10/07/20 17:09 18:53 20:35 WBC RBC Hgb Hct MCV MCH MCHC RDW Plt Count [place] % (Auto) [place] # (Auto) Seg Neutrophils % Seg Neuts % (Manual) Lymphocytes % (Manual) Monocytes % (Manual) Basophils % (Manual) Nucleated RBC % Seg Neutrophils # Seg Neutrophils # Man Lymphocytes # (Manual) Monocytes # (Manual) Basophils # (Manual) PT INR APTT Fibrinogen D-Dimer ABG pH POC ABG pCO2 POC ABG pO2 ABG Hemoglobin ABG Oxyhemoglobin ABG Sodium ABG Potassium ABG Chloride ABG Glucose Sodium Potassium Chloride Carbon Dioxide BUN Creatinine Glucose POC Glucose 67 L 66 L 62 L Lactic Acid Calcium Magnesium Iron Total Bilirubin Direct Bilirubin AST ALT Alkaline Phosphatase Ammonia CK-MB (CK-2) CK-MB (CK-2) Rel Index Total Protein Albumin Arterial Blood Glucose Arterial Blood Ionized Calcium Urine Creatinine Urine Total Protein Salicylates Acetaminophen Crossmatch 10/07/20 10/08/20 10/08/20 21:55 05:00 05:00 WBC RBC Hgb 9.6 L Hct 29.4 L MCV 73 L MCH 24 L MCHC RDW 32.4 H Plt Count [place] % (Auto) [place] # (Auto) Seg Neutrophils % 80.6 H Seg Neuts % (Manual) 88.0 H Lymphocytes % (Manual) 9.0 L Monocytes % (Manual) Basophils % (Manual) Nucleated RBC % 5.0 H Seg Neutrophils # Seg Neutrophils # Man Lymphocytes # (Manual) 0.5 L Monocytes # (Manual) Basophils # (Manual) PT INR APTT Fibrinogen D-Dimer ABG pH POC ABG pCO2 POC ABG pO2 ABG Hemoglobin ABG Oxyhemoglobin ABG Sodium ABG Potassium ABG Chloride ABG Glucose Sodium 126 L Potassium Chloride 96.3 L Carbon Dioxide BUN Creatinine 0.7 L Glucose POC Glucose 132 H Lactic Acid Calcium Magnesium Iron Total Bilirubin Direct Bilirubin AST ALT Alkaline Phosphatase Ammonia CK-MB (CK-2) CK-MB (CK-2) Rel Index Total Protein Albumin Arterial Blood Glucose Arterial Blood Ionized Calcium Urine Creatinine Urine Total Protein Salicylates Acetaminophen Crossmatch 10/08/20 10/09/20 10/09/20 22:26 01:36 02:22 WBC RBC Hgb Hct MCV MCH MCHC RDW Plt Count [place] % (Auto) [place] # (Auto) Seg Neutrophils % Seg Neuts % (Manual) Lymphocytes % (Manual) Monocytes % (Manual) Basophils % (Manual) Nucleated RBC % Seg Neutrophils # Seg Neutrophils # Man Lymphocytes # (Manual) Monocytes # (Manual) Basophils # (Manual) PT INR APTT Fibrinogen D-Dimer ABG pH POC ABG pCO2 POC ABG pO2 ABG Hemoglobin ABG Oxyhemoglobin ABG Sodium ABG Potassium ABG Chloride ABG Glucose Sodium Potassium Chloride Carbon Dioxide BUN Creatinine Glucose POC Glucose 63 L 62 L 151 H Lactic Acid Calcium Magnesium Iron Total Bilirubin Direct Bilirubin AST ALT Alkaline Phosphatase Ammonia CK-MB (CK-2) CK-MB (CK-2) Rel Index Total Protein Albumin Arterial Blood Glucose Arterial Blood Ionized Calcium Urine Creatinine Urine Total Protein Salicylates Acetaminophen Crossmatch 10/09/20 10/09/20 10/09/20 05:07 05:42 06:32 WBC RBC Hgb 10.3 L Hct 33.8 L MCV 77 L MCH 24 L MCHC 31 L RDW 33.6 H Plt Count 137 L [place] % (Auto) [place] # (Auto) Seg Neutrophils % Seg Neuts % (Manual) 89.0 H Lymphocytes % (Manual) 5.0 L Monocytes % (Manual) Basophils % (Manual) Nucleated RBC % 4.0 H Seg Neutrophils # Seg Neutrophils # Man 9.4 H Lymphocytes # (Manual) 0.5 L Monocytes # (Manual) Basophils # (Manual) PT INR APTT Fibrinogen D-Dimer ABG pH POC ABG pCO2 POC ABG pO2 ABG Hemoglobin ABG Oxyhemoglobin ABG Sodium ABG Potassium ABG Chloride ABG Glucose Sodium 126 L Potassium Chloride 97.8 L Carbon Dioxide 20 L BUN Creatinine Glucose 58 L POC Glucose 48 L Lactic Acid Calcium Magnesium Iron Total Bilirubin Direct Bilirubin AST ALT Alkaline Phosphatase Ammonia CK-MB (CK-2) CK-MB (CK-2) Rel Index Total Protein Albumin Arterial Blood Glucose Arterial Blood Ionized Calcium Urine Creatinine Urine Total Protein Salicylates Acetaminophen Crossmatch 10/09/20 10/10/20 10/10/20 06:35 00:21 05:53 WBC RBC Hgb Hct MCV MCH MCHC RDW Plt Count [place] % (Auto) [place] # (Auto) Seg Neutrophils % Seg Neuts % (Manual) Lymphocytes % (Manual) Monocytes % (Manual) Basophils % (Manual) Nucleated RBC % Seg Neutrophils # Seg Neutrophils # Man Lymphocytes # (Manual) Monocytes # (Manual) Basophils # (Manual) PT INR APTT Fibrinogen D-Dimer ABG pH POC ABG pCO2 POC ABG pO2 ABG Hemoglobin ABG Oxyhemoglobin ABG Sodium ABG Potassium ABG Chloride ABG Glucose Sodium Potassium Chloride Carbon Dioxide BUN Creatinine Glucose POC Glucose 106 H 153 H 34 L Lactic Acid Calcium Magnesium Iron Total Bilirubin Direct Bilirubin AST ALT Alkaline Phosphatase Ammonia CK-MB (CK-2) CK-MB (CK-2) Rel Index Total Protein Albumin Arterial Blood Glucose Arterial Blood Ionized Calcium Urine Creatinine Urine Total Protein Salicylates Acetaminophen Crossmatch 08/31/21 08/31/21 08/31/21 10:58 10:58 12:39 WBC RBC Hgb 10.3 L Hct 33.9 L MCV 78 L MCH 24 L MCHC 30 L RDW 33.2 H Plt Count 135 L [place] % (Auto) [place] # (Auto) Seg Neutrophils % Seg Neuts % (Manual) 74.0 H Lymphocytes % (Manual) 12.0 L Monocytes % (Manual) 9.0 H Basophils % (Manual) 2.0 H Nucleated RBC % Seg Neutrophils # Seg Neutrophils # Man Lymphocytes # (Manual) 1.0 L Monocytes # (Manual) Basophils # (Manual) 0.2 H PT INR APTT Fibrinogen D-Dimer ABG pH POC ABG pCO2 POC ABG pO2 ABG Hemoglobin ABG Oxyhemoglobin ABG Sodium ABG Potassium ABG Chloride ABG Glucose Sodium 127 L Potassium Chloride Carbon Dioxide 20 L BUN 23 H Creatinine Glucose POC Glucose 108 H Lactic Acid Calcium Magnesium Iron Total Bilirubin Direct Bilirubin AST ALT Alkaline Phosphatase Ammonia CK-MB (CK-2) CK-MB (CK-2) Rel Index Total Protein Albumin Arterial Blood Glucose Arterial Blood Ionized Calcium Urine Creatinine Urine Total Protein Salicylates Acetaminophen Crossmatch 10/10/20 10/11/20 10/11/20 16:51 04:56 05:51 WBC RBC Hgb 9.5 L Hct 31.3 L MCV 77 L MCH 23 L MCHC 30 L RDW 33.7 H Plt Count [place] % (Auto) [place] # (Auto) Seg Neutrophils % Seg Neuts % (Manual) 95.0 H Lymphocytes % (Manual) 2.0 L Monocytes % (Manual) Basophils % (Manual) Nucleated RBC % 3.0 H Seg Neutrophils # Seg Neutrophils # Man 8.0 H Lymphocytes # (Manual) 0.2 L Monocytes # (Manual) Basophils # (Manual) PT INR APTT Fibrinogen D-Dimer ABG pH POC ABG pCO2 POC ABG pO2 ABG Hemoglobin ABG Oxyhemoglobin ABG Sodium ABG Potassium ABG Chloride ABG Glucose Sodium Potassium Chloride Carbon Dioxide BUN Creatinine Glucose POC Glucose 142 H 124 H Lactic Acid Calcium Magnesium Iron Total Bilirubin Direct Bilirubin AST ALT Alkaline Phosphatase Ammonia CK-MB (CK-2) CK-MB (CK-2) Rel Index Total Protein Albumin Arterial Blood Glucose Arterial Blood Ionized Calcium Urine Creatinine Urine Total Protein Salicylates Acetaminophen Crossmatch 10/11/20 10/11/20 10/12/20 05:51 11:56 04:53 WBC RBC Hgb 9.5 L Hct 30.0 L MCV 75 L MCH 24 L MCHC RDW 32.8 H Plt Count 136 L [place] % (Auto) [place] # (Auto) Seg Neutrophils % Seg Neuts % (Manual) 89.0 H Lymphocytes % (Manual) 5.0 L Monocytes % (Manual) Basophils % (Manual) Nucleated RBC % Seg Neutrophils # Seg Neutrophils # Man Lymphocytes # (Manual) 0.4 L Monocytes # (Manual) Basophils # (Manual) PT INR APTT Fibrinogen D-Dimer ABG pH POC ABG pCO2 POC ABG pO2 ABG Hemoglobin ABG Oxyhemoglobin ABG Sodium ABG Potassium ABG Chloride ABG Glucose Sodium 130 L Potassium Chloride Carbon Dioxide 18 L BUN 23 H Creatinine Glucose POC Glucose 126 H Lactic Acid Calcium Magnesium Iron Total Bilirubin Direct Bilirubin AST ALT Alkaline Phosphatase Ammonia CK-MB (CK-2) CK-MB (CK-2) Rel Index Total Protein Albumin Arterial Blood Glucose Arterial Blood Ionized Calcium Urine Creatinine Urine Total Protein Salicylates Acetaminophen Crossmatch 10/12/20 10/12/20 10/12/20 04:53 11:42 23:49 WBC RBC Hgb Hct MCV MCH MCHC RDW Plt Count [place] % (Auto) [place] # (Auto) Seg Neutrophils % Seg Neuts % (Manual) Lymphocytes % (Manual) Monocytes % (Manual) Basophils % (Manual) Nucleated RBC % Seg Neutrophils # Seg Neutrophils # Man Lymphocytes # (Manual) Monocytes # (Manual) Basophils # (Manual) PT INR APTT Fibrinogen D-Dimer ABG pH POC ABG pCO2 POC ABG pO2 ABG Hemoglobin ABG Oxyhemoglobin ABG Sodium ABG Potassium ABG Chloride ABG Glucose Sodium 130 L Potassium Chloride Carbon Dioxide 18 L BUN 25 H Creatinine Glucose 74 L POC Glucose 59 L 51 L Lactic Acid Calcium Magnesium Iron Total Bilirubin Direct Bilirubin AST ALT Alkaline Phosphatase Ammonia CK-MB (CK-2) CK-MB (CK-2) Rel Index Total Protein Albumin Arterial Blood Glucose Arterial Blood Ionized Calcium Urine Creatinine Urine Total Protein Salicylates Acetaminophen Crossmatch 10/13/20 10/13/20 10/13/20 03:17 05:24 05:24 WBC RBC Hgb 9.4 L Hct 29.4 L MCV 75 L MCH 24 L MCHC RDW 32.9 H Plt Count 95 L [place] % (Auto) [place] # (Auto) Seg Neutrophils % Seg Neuts % (Manual) 90.0 H Lymphocytes % (Manual) Monocytes % (Manual) Basophils % (Manual) Nucleated RBC % 2.0 H Seg Neutrophils # Seg Neutrophils # Man 9.5 H Lymphocytes # (Manual) 0.0 L Monocytes # (Manual) Basophils # (Manual) PT INR APTT Fibrinogen D-Dimer ABG pH POC ABG pCO2 POC ABG pO2 ABG Hemoglobin ABG Oxyhemoglobin ABG Sodium ABG Potassium ABG Chloride ABG Glucose Sodium 132 L Potassium Chloride Carbon Dioxide 17 L BUN 26 H Creatinine 1.6 H Glucose POC Glucose 67 L Lactic Acid Calcium Magnesium Iron Total Bilirubin Direct Bilirubin AST ALT Alkaline Phosphatase Ammonia CK-MB (CK-2) CK-MB (CK-2) Rel Index Total Protein Albumin Arterial Blood Glucose Arterial Blood Ionized Calcium Urine Creatinine Urine Total Protein Salicylates Acetaminophen Crossmatch 10/13/20 10/14/20 10/14/20 11:36 05:04 05:04 WBC 17.4 H RBC Hgb 9.3 L Hct 29.3 L MCV 76 L MCH 24 L MCHC RDW 33.8 H Plt Count 83 L [place] % (Auto) [place] # (Auto) Seg Neutrophils % Seg Neuts % (Manual) 89.0 H Lymphocytes % (Manual) 4.0 L Monocytes % (Manual) Basophils % (Manual) Nucleated RBC % 1.0 H Seg Neutrophils # Seg Neutrophils # Man 15.5 H Lymphocytes # (Manual) 0.7 L Monocytes # (Manual) Basophils # (Manual) PT INR APTT Fibrinogen D-Dimer ABG pH POC ABG pCO2 POC ABG pO2 ABG Hemoglobin ABG Oxyhemoglobin ABG Sodium ABG Potassium ABG Chloride ABG Glucose Sodium 132 L Potassium 5.3 H Chloride 108.7 H Carbon Dioxide 15 L BUN 25 H Creatinine 1.5 H Glucose POC Glucose 58 L Lactic Acid Calcium Magnesium Iron Total Bilirubin Direct Bilirubin AST ALT Alkaline Phosphatase Ammonia CK-MB (CK-2) CK-MB (CK-2) Rel Index Total Protein Albumin Arterial Blood Glucose Arterial Blood Ionized Calcium Urine Creatinine Urine Total Protein Salicylates Acetaminophen Crossmatch 10/14/20 10/14/20 10/14/20 05:41 08:19 15:34 WBC RBC Hgb Hct MCV MCH MCHC RDW Plt Count [place] % (Auto) [place] # (Auto) Seg Neutrophils % Seg Neuts % (Manual) Lymphocytes % (Manual) Monocytes % (Manual) Basophils % (Manual) Nucleated RBC % Seg Neutrophils # Seg Neutrophils # Man Lymphocytes # (Manual) Monocytes # (Manual) Basophils # (Manual) PT INR APTT Fibrinogen D-Dimer ABG pH POC ABG pCO2 POC ABG pO2 ABG Hemoglobin ABG Oxyhemoglobin ABG Sodium ABG Potassium ABG Chloride ABG Glucose Sodium 134 L Potassium 5.2 H Chloride 111.1 H Carbon Dioxide 16 L BUN 25 H Creatinine 1.5 H Glucose POC Glucose 58 L 120 H Lactic Acid Calcium Magnesium Iron Total Bilirubin Direct Bilirubin AST ALT Alkaline Phosphatase Ammonia CK-MB (CK-2) CK-MB (CK-2) Rel Index Total Protein Albumin Arterial Blood Glucose Arterial Blood Ionized Calcium Urine Creatinine Urine Total Protein Salicylates Acetaminophen Crossmatch 10/14/20 10/15/20 10/15/20 Unknown 05:50 05:50 WBC 14.1 H RBC Hgb 9.4 L Hct 29.9 L MCV 76 L MCH 24 L MCHC 31 L RDW 34.2 H Plt Count 86 L [place] % (Auto) 8.3 H [place] # (Auto) 1.3 H Seg Neutrophils % 86.5 H Seg Neuts % (Manual) Lymphocytes % (Manual) 9.0 L Monocytes % (Manual) Basophils % (Manual) Nucleated RBC % 6.0 H Seg Neutrophils # 13.2 H Seg Neutrophils # Man 9.7 H Lymphocytes # (Manual) Monocytes # (Manual) Basophils # (Manual) PT INR APTT Fibrinogen D-Dimer ABG pH POC ABG pCO2 POC ABG pO2 ABG Hemoglobin ABG Oxyhemoglobin ABG Sodium ABG Potassium ABG Chloride ABG Glucose Sodium 134 L Potassium Chloride 109.9 H Carbon Dioxide 18 L BUN 26 H Creatinine 1.5 H Glucose 125 H POC Glucose Lactic Acid Calcium Magnesium Iron Total Bilirubin Direct Bilirubin AST ALT Alkaline Phosphatase Ammonia CK-MB (CK-2) CK-MB (CK-2) Rel Index Total Protein Albumin Arterial Blood Glucose Arterial Blood Ionized Calcium Urine Creatinine 144.2 H Urine Total Protein 97 H Salicylates Acetaminophen Crossmatch 10/15/20 10/15/20 10/15/20 05:55 07:36 07:59 WBC RBC Hgb Hct MCV MCH MCHC RDW Plt Count [place] % (Auto) [place] # (Auto) Seg Neutrophils % Seg Neuts % (Manual) Lymphocytes % (Manual) Monocytes % (Manual) Basophils % (Manual) Nucleated RBC % Seg Neutrophils # Seg Neutrophils # Man Lymphocytes # (Manual) Monocytes # (Manual) Basophils # (Manual) PT INR APTT Fibrinogen D-Dimer ABG pH 7.052 L POC ABG pCO2 65.0 H POC ABG pO2 214.1 H ABG Hemoglobin 10.6 L ABG Oxyhemoglobin 98.3 H ABG Sodium 130.6 L ABG Potassium ABG Chloride 110.0 H ABG Glucose 124 H Sodium Potassium Chloride Carbon Dioxide BUN Creatinine Glucose POC Glucose 113 H 114 H Lactic Acid Calcium Magnesium Iron Total Bilirubin Direct Bilirubin AST ALT Alkaline Phosphatase Ammonia CK-MB (CK-2) CK-MB (CK-2) Rel Index Total Protein Albumin Arterial Blood Glucose 124 H Arterial Blood Ionized Calcium Urine Creatinine Urine Total Protein Salicylates Acetaminophen Crossmatch 10/15/20 10/15/20 10/15/20 10:50 11:27 13:56 WBC RBC Hgb Hct MCV MCH MCHC RDW Plt Count [place] % (Auto) [place] # (Auto) Seg Neutrophils % Seg Neuts % (Manual) Lymphocytes % (Manual) Monocytes % (Manual) Basophils % (Manual) Nucleated RBC % Seg Neutrophils # Seg Neutrophils # Man Lymphocytes # (Manual) Monocytes # (Manual) Basophils # (Manual) PT INR APTT Fibrinogen D-Dimer ABG pH 7.200 L POC ABG pCO2 POC ABG pO2 123.1 H ABG Hemoglobin ABG Oxyhemoglobin ABG Sodium 131.3 L ABG Potassium 4.6 H ABG Chloride 112.0 H ABG Glucose 42 L Sodium Potassium Chloride Carbon Dioxide BUN Creatinine Glucose POC Glucose 50 L 476 H Lactic Acid Calcium Magnesium Iron Total Bilirubin Direct Bilirubin AST ALT Alkaline Phosphatase Ammonia CK-MB (CK-2) CK-MB (CK-2) Rel Index Total Protein Albumin Arterial Blood Glucose 42 L Arterial Blood Ionized Calcium Urine Creatinine Urine Total Protein Salicylates Acetaminophen Crossmatch 10/15/20 10/15/20 10/16/20 16:46 17:01 00:45 WBC RBC Hgb Hct MCV MCH MCHC RDW Plt Count [place] % (Auto) [place] # (Auto) Seg Neutrophils % Seg Neuts % (Manual) Lymphocytes % (Manual) Monocytes % (Manual) Basophils % (Manual) Nucleated RBC % Seg Neutrophils # Seg Neutrophils # Man Lymphocytes # (Manual) Monocytes # (Manual) Basophils # (Manual) PT INR APTT Fibrinogen D-Dimer ABG pH 7.250 L POC ABG pCO2 POC ABG pO2 49.8 L ABG Hemoglobin 9.3 L ABG Oxyhemoglobin 83.0 L ABG Sodium 130.2 L ABG Potassium ABG Chloride 111.0 H ABG Glucose Sodium 135 L Potassium Chloride Carbon Dioxide BUN Creatinine Glucose POC Glucose 67 L Lactic Acid Calcium Magnesium Iron Total Bilirubin Direct Bilirubin AST ALT Alkaline Phosphatase Ammonia CK-MB (CK-2) CK-MB (CK-2) Rel Index Total Protein Albumin Arterial Blood Glucose Arterial Blood Ionized Calcium Urine Creatinine Urine Total Protein Salicylates Acetaminophen Crossmatch 10/16/20 10/16/20 10/16/20 05:36 05:53 05:53 WBC 16.6 H RBC 3.52 L Hgb 8.3 L Hct 26.6 L MCV 75 L MCH 23 L MCHC 31 L RDW 33.7 H Plt Count 63 L [place] % (Auto) [place] # (Auto) Seg Neutrophils % Seg Neuts % (Manual) 93.0 H Lymphocytes % (Manual) Monocytes % (Manual) Basophils % (Manual) Nucleated RBC % 3.0 H Seg Neutrophils # Seg Neutrophils # Man 15.4 H Lymphocytes # (Manual) 0.0 L Monocytes # (Manual) Basophils # (Manual) PT INR APTT Fibrinogen D-Dimer ABG pH POC ABG pCO2 POC ABG pO2 ABG Hemoglobin ABG Oxyhemoglobin ABG Sodium ABG Potassium ABG Chloride ABG Glucose Sodium 136 L Potassium Chloride 111.9 H Carbon Dioxide 17 L BUN 29 H Creatinine 2.0 H Glucose 126 H POC Glucose 44 L Lactic Acid Calcium 8.1 L Magnesium Iron Total Bilirubin Direct Bilirubin AST ALT Alkaline Phosphatase Ammonia CK-MB (CK-2) CK-MB (CK-2) Rel Index Total Protein Albumin Arterial Blood Glucose Arterial Blood Ionized Calcium Urine Creatinine Urine Total Protein Salicylates Acetaminophen Crossmatch 10/16/20 10/16/20 10/16/20 05:53 07:26 08:07 WBC RBC Hgb Hct MCV MCH MCHC RDW Plt Count [place] % (Auto) [place] # (Auto) Seg Neutrophils % Seg Neuts % (Manual) Lymphocytes % (Manual) Monocytes % (Manual) Basophils % (Manual) Nucleated RBC % Seg Neutrophils # Seg Neutrophils # Man Lymphocytes # (Manual) Monocytes # (Manual) Basophils # (Manual) PT 24.5 H INR 2.17 H APTT Fibrinogen D-Dimer ABG pH POC ABG pCO2 POC ABG pO2 ABG Hemoglobin ABG Oxyhemoglobin ABG Sodium ABG Potassium ABG Chloride ABG Glucose Sodium Potassium Chloride Carbon Dioxide BUN Creatinine Glucose POC Glucose 58 L 51 L Lactic Acid Calcium Magnesium Iron Total Bilirubin Direct Bilirubin AST ALT Alkaline Phosphatase Ammonia CK-MB (CK-2) CK-MB (CK-2) Rel Index Total Protein Albumin Arterial Blood Glucose Arterial Blood Ionized Calcium Urine Creatinine Urine Total Protein Salicylates Acetaminophen Crossmatch 10/16/20 10/16/20 10/16/20 08:52 11:14 11:33 WBC RBC Hgb Hct MCV MCH MCHC RDW Plt Count [place] % (Auto) [place] # (Auto) Seg Neutrophils % Seg Neuts % (Manual) Lymphocytes % (Manual) Monocytes % (Manual) Basophils % (Manual) Nucleated RBC % Seg Neutrophils # Seg Neutrophils # Man Lymphocytes # (Manual) Monocytes # (Manual) Basophils # (Manual) PT INR APTT Fibrinogen D-Dimer ABG pH 7.044 L POC ABG pCO2 58.1 H POC ABG pO2 57.7 L ABG Hemoglobin 9.5 L ABG Oxyhemoglobin 81.5 L ABG Sodium 131.7 L ABG Potassium ABG Chloride 112.0 H ABG Glucose 59 L Sodium Potassium Chloride Carbon Dioxide BUN Creatinine Glucose POC Glucose 58 L Lactic Acid Calcium Magnesium Iron Total Bilirubin Direct Bilirubin AST 136 H ALT 72 H Alkaline Phosphatase 240 H Ammonia CK-MB (CK-2) CK-MB (CK-2) Rel Index Total Protein 5.1 L Albumin 2.1 L Arterial Blood Glucose 59 L Arterial Blood Ionized Calcium Urine Creatinine Urine Total Protein Salicylates Acetaminophen Crossmatch 10/16/20 10/16/20 10/16/20 12:32 13:11 13:40 WBC RBC Hgb Hct MCV MCH MCHC RDW Plt Count [place] % (Auto) [place] # (Auto) Seg Neutrophils % Seg Neuts % (Manual) Lymphocytes % (Manual) Monocytes % (Manual) Basophils % (Manual) Nucleated RBC % Seg Neutrophils # Seg Neutrophils # Man Lymphocytes # (Manual) Monocytes # (Manual) Basophils # (Manual) PT INR APTT Fibrinogen D-Dimer ABG pH POC ABG pCO2 POC ABG pO2 ABG Hemoglobin ABG Oxyhemoglobin ABG Sodium ABG Potassium ABG Chloride ABG Glucose Sodium Potassium Chloride Carbon Dioxide BUN Creatinine Glucose POC Glucose 27 L 54 L 69 L Lactic Acid Calcium Magnesium Iron Total Bilirubin Direct Bilirubin AST ALT Alkaline Phosphatase Ammonia CK-MB (CK-2) CK-MB (CK-2) Rel Index Total Protein Albumin Arterial Blood Glucose Arterial Blood Ionized Calcium Urine Creatinine Urine Total Protein Salicylates Acetaminophen Crossmatch 10/16/20 10/16/20 10/16/20 15:13 17:15 17:34 WBC RBC Hgb Hct MCV MCH MCHC RDW Plt Count [place] % (Auto) [place] # (Auto) Seg Neutrophils % Seg Neuts % (Manual) Lymphocytes % (Manual) Monocytes % (Manual) Basophils % (Manual) Nucleated RBC % Seg Neutrophils # Seg Neutrophils # Man Lymphocytes # (Manual) Monocytes # (Manual) Basophils # (Manual) PT INR APTT Fibrinogen D-Dimer ABG pH POC ABG pCO2 POC ABG pO2 ABG Hemoglobin ABG Oxyhemoglobin ABG Sodium ABG Potassium ABG Chloride ABG Glucose Sodium Potassium Chloride Carbon Dioxide BUN Creatinine Glucose POC Glucose 46 L 54 L 119 H Lactic Acid Calcium Magnesium Iron Total Bilirubin Direct Bilirubin AST ALT Alkaline Phosphatase Ammonia CK-MB (CK-2) CK-MB (CK-2) Rel Index Total Protein Albumin Arterial Blood Glucose Arterial Blood Ionized Calcium Urine Creatinine Urine Total Protein Salicylates Acetaminophen Crossmatch 10/16/20 10/16/20 10/16/20 18:51 19:37 21:00 WBC RBC Hgb Hct MCV MCH MCHC RDW Plt Count [place] % (Auto) [place] # (Auto) Seg Neutrophils % Seg Neuts % (Manual) Lymphocytes % (Manual) Monocytes % (Manual) Basophils % (Manual) Nucleated RBC % Seg Neutrophils # Seg Neutrophils # Man Lymphocytes # (Manual) Monocytes # (Manual) Basophils # (Manual) PT INR APTT Fibrinogen D-Dimer ABG pH 7.122 L POC ABG pCO2 49.8 H POC ABG pO2 62.1 L ABG Hemoglobin 9.1 L ABG Oxyhemoglobin 89.6 L ABG Sodium 130.1 L ABG Potassium 3.0 L ABG Chloride 111.0 H ABG Glucose 106 H Sodium Potassium Chloride Carbon Dioxide BUN Creatinine Glucose POC Glucose 64 L 114 H Lactic Acid Calcium Magnesium Iron Total Bilirubin Direct Bilirubin AST ALT Alkaline Phosphatase Ammonia CK-MB (CK-2) CK-MB (CK-2) Rel Index Total Protein Albumin Arterial Blood Glucose 106 H Arterial Blood Ionized Calcium Urine Creatinine Urine Total Protein Salicylates Acetaminophen Crossmatch 10/16/20 10/16/20 10/17/20 22:01 22:58 00:58 WBC RBC Hgb Hct MCV MCH MCHC RDW Plt Count [place] % (Auto) [place] # (Auto) Seg Neutrophils % Seg Neuts % (Manual) Lymphocytes % (Manual) Monocytes % (Manual) Basophils % (Manual) Nucleated RBC % Seg Neutrophils # Seg Neutrophils # Man Lymphocytes # (Manual) Monocytes # (Manual) Basophils # (Manual) PT INR APTT Fibrinogen D-Dimer ABG pH POC ABG pCO2 POC ABG pO2 ABG Hemoglobin ABG Oxyhemoglobin ABG Sodium ABG Potassium ABG Chloride ABG Glucose Sodium 133 L Potassium 3.5 L Chloride 107.7 H Carbon Dioxide 15 L BUN 29 H Creatinine 2.6 H Glucose POC Glucose 63 L 292 H Lactic Acid Calcium 7.9 L Magnesium Iron Total Bilirubin Direct Bilirubin AST ALT Alkaline Phosphatase Ammonia CK-MB (CK-2) CK-MB (CK-2) Rel Index Total Protein Albumin Arterial Blood Glucose Arterial Blood Ionized Calcium Urine Creatinine Urine Total Protein Salicylates Acetaminophen Crossmatch 10/17/20 10/17/20 10/17/20 02:04 03:08 03:55 WBC RBC Hgb Hct MCV MCH MCHC RDW Plt Count [place] % (Auto) [place] # (Auto) Seg Neutrophils % Seg Neuts % (Manual) Lymphocytes % (Manual) Monocytes % (Manual) Basophils % (Manual) Nucleated RBC % Seg Neutrophils # Seg Neutrophils # Man Lymphocytes # (Manual) Monocytes # (Manual) Basophils # (Manual) PT INR APTT Fibrinogen D-Dimer ABG pH POC ABG pCO2 POC ABG pO2 ABG Hemoglobin ABG Oxyhemoglobin ABG Sodium ABG Potassium ABG Chloride ABG Glucose Sodium Potassium Chloride Carbon Dioxide BUN Creatinine Glucose POC Glucose 200 H 173 H 161 H Lactic Acid Calcium Magnesium Iron Total Bilirubin Direct Bilirubin AST ALT Alkaline Phosphatase Ammonia CK-MB (CK-2) CK-MB (CK-2) Rel Index Total Protein Albumin Arterial Blood Glucose Arterial Blood Ionized Calcium Urine Creatinine Urine Total Protein Salicylates Acetaminophen Crossmatch 10/17/20 10/17/20 10/17/20 04:00 04:49 04:49 WBC 17.7 H RBC 3.21 L Hgb 7.5 L Hct 25.4 L MCV 79 L MCH 24 L MCHC 30 L RDW 34.0 H Plt Count 40 L [place] % (Auto) [place] # (Auto) Seg Neutrophils % Seg Neuts % (Manual) Lymphocytes % (Manual) 3.0 L Monocytes % (Manual) Basophils % (Manual) Nucleated RBC % 3.0 H Seg Neutrophils # Seg Neutrophils # Man 10.6 H Lymphocytes # (Manual) 0.5 L Monocytes # (Manual) 1.1 H Basophils # (Manual) PT INR APTT Fibrinogen D-Dimer ABG pH 7.116 L POC ABG pCO2 POC ABG pO2 61.1 L ABG Hemoglobin 8.4 L ABG Oxyhemoglobin 90.2 L ABG Sodium 125.0 L ABG Potassium 3.1 L ABG Chloride ABG Glucose 155 H Sodium 133 L Potassium 3.3 L Chloride Carbon Dioxide 15 L BUN 29 H Creatinine 2.7 H Glucose 138 H POC Glucose Lactic Acid Calcium 7.8 L Magnesium Iron Total Bilirubin Direct Bilirubin AST ALT Alkaline Phosphatase Ammonia CK-MB (CK-2) CK-MB (CK-2) Rel Index Total Protein Albumin Arterial Blood Glucose 155 H Arterial Blood Ionized Calcium Urine Creatinine Urine Total Protein Salicylates Acetaminophen Crossmatch 10/17/20 10/17/20 10/17/20 04:58 06:01 07:50 WBC RBC Hgb Hct MCV MCH MCHC RDW Plt Count [place] % (Auto) [place] # (Auto) Seg Neutrophils % Seg Neuts % (Manual) Lymphocytes % (Manual) Monocytes % (Manual) Basophils % (Manual) Nucleated RBC % Seg Neutrophils # Seg Neutrophils # Man Lymphocytes # (Manual) Monocytes # (Manual) Basophils # (Manual) PT INR APTT Fibrinogen D-Dimer ABG pH POC ABG pCO2 POC ABG pO2 ABG Hemoglobin ABG Oxyhemoglobin ABG Sodium ABG Potassium ABG Chloride ABG Glucose Sodium Potassium Chloride Carbon Dioxide BUN Creatinine Glucose POC Glucose 137 H 119 H 106 H Lactic Acid Calcium Magnesium Iron Total Bilirubin Direct Bilirubin AST ALT Alkaline Phosphatase Ammonia CK-MB (CK-2) CK-MB (CK-2) Rel Index Total Protein Albumin Arterial Blood Glucose Arterial Blood Ionized Calcium Urine Creatinine Urine Total Protein Salicylates Acetaminophen Crossmatch 10/17/20 10/17/20 10/17/20 11:50 15:11 18:11 WBC RBC Hgb Hct MCV MCH MCHC RDW Plt Count [place] % (Auto) [place] # (Auto) Seg Neutrophils % Seg Neuts % (Manual) Lymphocytes % (Manual) Monocytes % (Manual) Basophils % (Manual) Nucleated RBC % Seg Neutrophils # Seg Neutrophils # Man Lymphocytes # (Manual) Monocytes # (Manual) Basophils # (Manual) PT INR APTT Fibrinogen D-Dimer ABG pH POC ABG pCO2 POC ABG pO2 ABG Hemoglobin ABG Oxyhemoglobin ABG Sodium ABG Potassium ABG Chloride ABG Glucose Sodium Potassium Chloride Carbon Dioxide BUN Creatinine Glucose POC Glucose 111 H 114 H 137 H Lactic Acid Calcium Magnesium Iron Total Bilirubin Direct Bilirubin AST ALT Alkaline Phosphatase Ammonia CK-MB (CK-2) CK-MB (CK-2) Rel Index Total Protein Albumin Arterial Blood Glucose Arterial Blood Ionized Calcium Urine Creatinine Urine Total Protein Salicylates Acetaminophen Crossmatch 10/17/20 10/17/20 10/18/20 19:51 23:32 04:00 WBC RBC Hgb Hct MCV MCH MCHC RDW Plt Count [place] % (Auto) [place] # (Auto) Seg Neutrophils % Seg Neuts % (Manual) Lymphocytes % (Manual) Monocytes % (Manual) Basophils % (Manual) Nucleated RBC % Seg Neutrophils # Seg Neutrophils # Man Lymphocytes # (Manual) Monocytes # (Manual) Basophils # (Manual) PT INR APTT Fibrinogen D-Dimer ABG pH 7.276 L POC ABG pCO2 POC ABG pO2 77.7 L ABG Hemoglobin 7.2 L ABG Oxyhemoglobin ABG Sodium 122.6 L ABG Potassium ABG Chloride ABG Glucose 113 H Sodium Potassium Chloride Carbon Dioxide BUN Creatinine Glucose POC Glucose 130 H 114 H Lactic Acid Calcium Magnesium Iron Total Bilirubin Direct Bilirubin AST ALT Alkaline Phosphatase Ammonia CK-MB (CK-2) CK-MB (CK-2) Rel Index Total Protein Albumin Arterial Blood Glucose 113 H Arterial Blood Ionized Calcium Urine Creatinine Urine Total Protein Salicylates Acetaminophen Crossmatch 10/18/20 10/18/20 10/18/20 04:06 04:06 04:13 WBC RBC Hgb Hct MCV MCH MCHC RDW Plt Count [place] % (Auto) [place] # (Auto) Seg Neutrophils % Seg Neuts % (Manual) Lymphocytes % (Manual) Monocytes % (Manual) Basophils % (Manual) Nucleated RBC % Seg Neutrophils # Seg Neutrophils # Man Lymphocytes # (Manual) Monocytes # (Manual) Basophils # (Manual) PT 23.5 H INR 2.05 H APTT Fibrinogen D-Dimer ABG pH POC ABG pCO2 POC ABG pO2 ABG Hemoglobin ABG Oxyhemoglobin ABG Sodium ABG Potassium ABG Chloride ABG Glucose Sodium 123 L D Potassium Chloride 97.9 L Carbon Dioxide 16 L BUN 31 H Creatinine 3.1 H Glucose 113 H POC Glucose 108 H Lactic Acid Calcium 7.4 L Magnesium Iron Total Bilirubin Direct Bilirubin AST ALT Alkaline Phosphatase Ammonia CK-MB (CK-2) CK-MB (CK-2) Rel Index Total Protein Albumin Arterial Blood Glucose Arterial Blood Ionized Calcium Urine Creatinine Urine Total Protein Salicylates Acetaminophen Crossmatch 10/18/20 10/18/20 10/18/20 10:03 14:12 19:08 WBC RBC Hgb Hct MCV MCH MCHC RDW Plt Count [place] % (Auto) [place] # (Auto) Seg Neutrophils % Seg Neuts % (Manual) Lymphocytes % (Manual) Monocytes % (Manual) Basophils % (Manual) Nucleated RBC % Seg Neutrophils # Seg Neutrophils # Man Lymphocytes # (Manual) Monocytes # (Manual) Basophils # (Manual) PT INR APTT Fibrinogen D-Dimer ABG pH POC ABG pCO2 POC ABG pO2 ABG Hemoglobin ABG Oxyhemoglobin ABG Sodium ABG Potassium ABG Chloride ABG Glucose Sodium Potassium Chloride Carbon Dioxide BUN Creatinine Glucose POC Glucose 139 H 112 H Lactic Acid Calcium Magnesium Iron Total Bilirubin Direct Bilirubin AST ALT Alkaline Phosphatase Ammonia CK-MB (CK-2) CK-MB (CK-2) Rel Index Total Protein Albumin Arterial Blood Glucose Arterial Blood Ionized Calcium Urine Creatinine Urine Total Protein Salicylates Acetaminophen Crossmatch See Detail 10/18/20 10/19/20 10/19/20 Unknown 02:02 04:00 WBC 19.8 H RBC 2.95 L Hgb 6.9 L Hct 22.2 L MCV 75 L MCH 24 L MCHC 31 L RDW 33.6 H Plt Count 28 L [place] % (Auto) [place] # (Auto) Seg Neutrophils % Seg Neuts % (Manual) Lymphocytes % (Manual) Monocytes % (Manual) Basophils % (Manual) Nucleated RBC % Seg Neutrophils # Seg Neutrophils # Man Lymphocytes # (Manual) Monocytes # (Manual) Basophils # (Manual) PT INR APTT Fibrinogen D-Dimer ABG pH 7.234 L POC ABG pCO2 POC ABG pO2 53.9 L ABG Hemoglobin 8.9 L ABG Oxyhemoglobin 86.6 L ABG Sodium 118.1 L ABG Potassium ABG Chloride 94.0 L ABG Glucose 61 L Sodium Potassium Chloride Carbon Dioxide BUN Creatinine Glucose POC Glucose 64 L Lactic Acid Calcium Magnesium Iron Total Bilirubin Direct Bilirubin AST ALT Alkaline Phosphatase Ammonia CK-MB (CK-2) CK-MB (CK-2) Rel Index Total Protein Albumin Arterial Blood Glucose 61 L Arterial Blood Ionized Calcium 4.5 L Urine Creatinine Urine Total Protein Salicylates Acetaminophen Crossmatch 10/19/20 10/19/20 10/19/20 04:51 04:51 05:43 WBC 18.2 H RBC 3.26 L Hgb 7.9 L Hct 24.6 L MCV 76 L MCH 24 L MCHC RDW 30.7 H Plt Count 41 L [place] % (Auto) [place] # (Auto) Seg Neutrophils % Seg Neuts % (Manual) Lymphocytes % (Manual) Monocytes % (Manual) Basophils % (Manual) Nucleated RBC % Seg Neutrophils # Seg Neutrophils # Man Lymphocytes # (Manual) Monocytes # (Manual) Basophils # (Manual) PT INR APTT Fibrinogen D-Dimer ABG pH POC ABG pCO2 POC ABG pO2 ABG Hemoglobin ABG Oxyhemoglobin ABG Sodium ABG Potassium ABG Chloride ABG Glucose Sodium 122 L Potassium Chloride 94.6 L Carbon Dioxide 17 L BUN 33 H Creatinine 3.5 H Glucose 63 L POC Glucose 54 L Lactic Acid Calcium 7.3 L Magnesium Iron Total Bilirubin 1.50 H Direct Bilirubin 0.9 H AST ALT Alkaline Phosphatase 154 H Ammonia CK-MB (CK-2) CK-MB (CK-2) Rel Index Total Protein 4.2 L Albumin 1.9 L Arterial Blood Glucose Arterial Blood Ionized Calcium Urine Creatinine Urine Total Protein Salicylates Acetaminophen Crossmatch 10/19/20 10/19/20 10/19/20 11:23 11:45 14:24 WBC RBC Hgb Hct MCV MCH MCHC RDW Plt Count [place] % (Auto) [place] # (Auto) Seg Neutrophils % Seg Neuts % (Manual) Lymphocytes % (Manual) Monocytes % (Manual) Basophils % (Manual) Nucleated RBC % Seg Neutrophils # Seg Neutrophils # Man Lymphocytes # (Manual) Monocytes # (Manual) Basophils # (Manual) PT INR APTT Fibrinogen D-Dimer ABG pH POC ABG pCO2 POC ABG pO2 ABG Hemoglobin ABG Oxyhemoglobin ABG Sodium ABG Potassium ABG Chloride ABG Glucose Sodium Potassium Chloride Carbon Dioxide BUN Creatinine Glucose POC Glucose 47 L 117 H 47 L Lactic Acid Calcium Magnesium Iron Total Bilirubin Direct Bilirubin AST ALT Alkaline Phosphatase Ammonia CK-MB (CK-2) CK-MB (CK-2) Rel Index Total Protein Albumin Arterial Blood Glucose Arterial Blood Ionized Calcium Urine Creatinine Urine Total Protein Salicylates Acetaminophen Crossmatch 10/19/20 10/19/20 10/19/20 16:31 20:04 20:19 WBC RBC Hgb Hct MCV MCH MCHC RDW Plt Count [place] % (Auto) [place] # (Auto) Seg Neutrophils % Seg Neuts % (Manual) Lymphocytes % (Manual) Monocytes % (Manual) Basophils % (Manual) Nucleated RBC % Seg Neutrophils # Seg Neutrophils # Man Lymphocytes # (Manual) Monocytes # (Manual) Basophils # (Manual) PT INR APTT Fibrinogen D-Dimer ABG pH POC ABG pCO2 POC ABG pO2 ABG Hemoglobin ABG Oxyhemoglobin ABG Sodium ABG Potassium ABG Chloride ABG Glucose Sodium Potassium Chloride Carbon Dioxide BUN Creatinine Glucose 59 L POC Glucose 58 L 49 L Lactic Acid Calcium Magnesium Iron Total Bilirubin Direct Bilirubin AST ALT Alkaline Phosphatase Ammonia CK-MB (CK-2) CK-MB (CK-2) Rel Index Total Protein Albumin Arterial Blood Glucose Arterial Blood Ionized Calcium Urine Creatinine Urine Total Protein Salicylates Acetaminophen Crossmatch 10/20/20 10/20/20 10/20/20 00:17 03:59 08:43 WBC 13.1 H RBC 3.42 L Hgb 8.3 L Hct 25.3 L MCV 74 L MCH 24 L MCHC RDW 31.4 H Plt Count 35 L [place] % (Auto) [place] # (Auto) Seg Neutrophils % Seg Neuts % (Manual) Lymphocytes % (Manual) Monocytes % (Manual) Basophils % (Manual) Nucleated RBC % Seg Neutrophils # Seg Neutrophils # Man Lymphocytes # (Manual) Monocytes # (Manual) Basophils # (Manual) PT INR APTT Fibrinogen D-Dimer ABG pH POC ABG pCO2 POC ABG pO2 ABG Hemoglobin ABG Oxyhemoglobin ABG Sodium ABG Potassium ABG Chloride ABG Glucose Sodium Potassium Chloride Carbon Dioxide BUN Creatinine Glucose POC Glucose 29 L 47 L Lactic Acid Calcium Magnesium Iron Total Bilirubin Direct Bilirubin AST ALT Alkaline Phosphatase Ammonia CK-MB (CK-2) CK-MB (CK-2) Rel Index Total Protein Albumin Arterial Blood Glucose Arterial Blood Ionized Calcium Urine Creatinine Urine Total Protein Salicylates Acetaminophen Crossmatch 10/20/20 10/20/20 10/20/20 08:43 08:43 09:56 WBC RBC Hgb Hct MCV MCH MCHC RDW Plt Count [place] % (Auto) [place] # (Auto) Seg Neutrophils % Seg Neuts % (Manual) Lymphocytes % (Manual) Monocytes % (Manual) Basophils % (Manual) Nucleated RBC % Seg Neutrophils # Seg Neutrophils # Man Lymphocytes # (Manual) Monocytes # (Manual) Basophils # (Manual) PT 30.1 H INR 2.82 H APTT Fibrinogen D-Dimer ABG pH POC ABG pCO2 POC ABG pO2 ABG Hemoglobin ABG Oxyhemoglobin ABG Sodium ABG Potassium ABG Chloride ABG Glucose Sodium 119 L* Potassium Chloride 90.7 L Carbon Dioxide 20 L BUN 35 H Creatinine 3.3 H Glucose 57 L POC Glucose 61 L Lactic Acid Calcium 7.7 L Magnesium 1.30 L Iron Total Bilirubin 1.60 H Direct Bilirubin AST ALT Alkaline Phosphatase 152 H Ammonia CK-MB (CK-2) CK-MB (CK-2) Rel Index Total Protein 4.5 L Albumin 1.6 L Arterial Blood Glucose Arterial Blood Ionized Calcium Urine Creatinine Urine Total Protein Salicylates Acetaminophen Crossmatch 10/20/20 10/20/20 10/20/20 15:35 17:30 20:17 WBC RBC Hgb Hct MCV MCH MCHC RDW Plt Count [place] % (Auto) [place] # (Auto) Seg Neutrophils % Seg Neuts % (Manual) Lymphocytes % (Manual) Monocytes % (Manual) Basophils % (Manual) Nucleated RBC % Seg Neutrophils # Seg Neutrophils # Man Lymphocytes # (Manual) Monocytes # (Manual) Basophils # (Manual) PT INR APTT Fibrinogen D-Dimer ABG pH POC ABG pCO2 POC ABG pO2 ABG Hemoglobin ABG Oxyhemoglobin ABG Sodium ABG Potassium ABG Chloride ABG Glucose Sodium 121 L 120 L Potassium Chloride Carbon Dioxide BUN Creatinine Glucose POC Glucose 61 L Lactic Acid Calcium Magnesium Iron Total Bilirubin Direct Bilirubin AST ALT Alkaline Phosphatase Ammonia CK-MB (CK-2) CK-MB (CK-2) Rel Index Total Protein Albumin Arterial Blood Glucose Arterial Blood Ionized Calcium Urine Creatinine Urine Total Protein Salicylates Acetaminophen Crossmatch 10/20/20 10/20/20 10/21/20 23:00 23:37 01:00 WBC RBC Hgb Hct MCV MCH MCHC RDW Plt Count [place] % (Auto) [place] # (Auto) Seg Neutrophils % Seg Neuts % (Manual) Lymphocytes % (Manual) Monocytes % (Manual) Basophils % (Manual) Nucleated RBC % Seg Neutrophils # Seg Neutrophils # Man Lymphocytes # (Manual) Monocytes # (Manual) Basophils # (Manual) PT INR APTT Fibrinogen D-Dimer ABG pH POC ABG pCO2 POC ABG pO2 ABG Hemoglobin ABG Oxyhemoglobin ABG Sodium ABG Potassium ABG Chloride ABG Glucose Sodium 121 L Potassium Chloride Carbon Dioxide BUN Creatinine Glucose POC Glucose 33 L 36 L Lactic Acid Calcium Magnesium Iron Total Bilirubin Direct Bilirubin AST ALT Alkaline Phosphatase Ammonia CK-MB (CK-2) CK-MB (CK-2) Rel Index Total Protein Albumin Arterial Blood Glucose Arterial Blood Ionized Calcium Urine Creatinine Urine Total Protein Salicylates Acetaminophen Crossmatch 10/21/20 10/21/20 10/21/20 02:31 04:00 05:22 WBC RBC Hgb Hct MCV MCH MCHC RDW Plt Count [place] % (Auto) [place] # (Auto) Seg Neutrophils % Seg Neuts % (Manual) Lymphocytes % (Manual) Monocytes % (Manual) Basophils % (Manual) Nucleated RBC % Seg Neutrophils # Seg Neutrophils # Man Lymphocytes # (Manual) Monocytes # (Manual) Basophils # (Manual) PT INR APTT Fibrinogen D-Dimer ABG pH POC ABG pCO2 POC ABG pO2 66.6 L ABG Hemoglobin 8.7 L ABG Oxyhemoglobin 92.1 L ABG Sodium 117.9 L ABG Potassium 3.2 L ABG Chloride 93.0 L ABG Glucose Sodium Potassium Chloride Carbon Dioxide BUN Creatinine Glucose POC Glucose 51 L 64 L Lactic Acid Calcium Magnesium Iron Total Bilirubin Direct Bilirubin AST ALT Alkaline Phosphatase Ammonia CK-MB (CK-2) CK-MB (CK-2) Rel Index Total Protein Albumin Arterial Blood Glucose Arterial Blood Ionized Calcium 4.4 L Urine Creatinine Urine Total Protein Salicylates Acetaminophen Crossmatch 10/21/20 10/21/20 10/21/20 05:50 05:50 10:32 WBC 11.1 H RBC 3.27 L Hgb 7.9 L Hct 23.9 L MCV 73 L MCH 24 L MCHC RDW 31.8 H Plt Count 26 L [place] % (Auto) [place] # (Auto) Seg Neutrophils % Seg Neuts % (Manual) Lymphocytes % (Manual) Monocytes % (Manual) Basophils % (Manual) Nucleated RBC % Seg Neutrophils # Seg Neutrophils # Man Lymphocytes # (Manual) Monocytes # (Manual) Basophils # (Manual) PT INR APTT Fibrinogen D-Dimer ABG pH POC ABG pCO2 POC ABG pO2 ABG Hemoglobin ABG Oxyhemoglobin ABG Sodium ABG Potassium ABG Chloride ABG Glucose Sodium 122 L Potassium 3.4 L Chloride 91.1 L Carbon Dioxide BUN 38 H Creatinine 3.2 H Glucose 56 L POC Glucose 68 L Lactic Acid Calcium 7.8 L Magnesium 1.60 L Iron Total Bilirubin Direct Bilirubin AST ALT Alkaline Phosphatase Ammonia CK-MB (CK-2) CK-MB (CK-2) Rel Index Total Protein Albumin Arterial Blood Glucose Arterial Blood Ionized Calcium Urine Creatinine Urine Total Protein Salicylates Acetaminophen Crossmatch 10/21/20 10/21/20 10/21/20 14:05 17:15 18:41 WBC RBC Hgb Hct MCV MCH MCHC RDW Plt Count [place] % (Auto) [place] # (Auto) Seg Neutrophils % Seg Neuts % (Manual) Lymphocytes % (Manual) Monocytes % (Manual) Basophils % (Manual) Nucleated RBC % Seg Neutrophils # Seg Neutrophils # Man Lymphocytes # (Manual) Monocytes # (Manual) Basophils # (Manual) PT INR APTT Fibrinogen D-Dimer ABG pH POC ABG pCO2 POC ABG pO2 ABG Hemoglobin ABG Oxyhemoglobin ABG Sodium ABG Potassium ABG Chloride ABG Glucose Sodium Potassium Chloride Carbon Dioxide BUN Creatinine Glucose POC Glucose 61 L 53 L 110 H Lactic Acid Calcium Magnesium Iron Total Bilirubin Direct Bilirubin AST ALT Alkaline Phosphatase Ammonia CK-MB (CK-2) CK-MB (CK-2) Rel Index Total Protein Albumin Arterial Blood Glucose Arterial Blood Ionized Calcium Urine Creatinine Urine Total Protein Salicylates Acetaminophen Crossmatch 10/21/20 10/21/20 10/21/20 21:08 22:20 Unknown WBC RBC Hgb Hct MCV MCH MCHC RDW Plt Count [place] % (Auto) [place] # (Auto) Seg Neutrophils % Seg Neuts % (Manual) Lymphocytes % (Manual) Monocytes % (Manual) Basophils % (Manual) Nucleated RBC % Seg Neutrophils # Seg Neutrophils # Man Lymphocytes # (Manual) Monocytes # (Manual) Basophils # (Manual) PT INR APTT Fibrinogen D-Dimer ABG pH POC ABG pCO2 POC ABG pO2 ABG Hemoglobin ABG Oxyhemoglobin ABG Sodium ABG Potassium ABG Chloride ABG Glucose Sodium 123 L 125 L Potassium 3.2 L Chloride 94.1 L Carbon Dioxide BUN 40 H Creatinine 3.3 H Glucose 64 L POC Glucose 117 H Lactic Acid Calcium 7.6 L Magnesium Iron Total Bilirubin Direct Bilirubin AST ALT Alkaline Phosphatase Ammonia CK-MB (CK-2) CK-MB (CK-2) Rel Index Total Protein Albumin Arterial Blood Glucose Arterial Blood Ionized Calcium Urine Creatinine Urine Total Protein Salicylates Acetaminophen Crossmatch 10/21/20 10/21/20 10/22/20 Unknown Unknown 02:43 WBC RBC 3.40 L Hgb 8.4 L Hct 24.8 L MCV 73 L MCH 25 L MCHC RDW 31.5 H Plt Count 21 L [place] % (Auto) [place] # (Auto) Seg Neutrophils % Seg Neuts % (Manual) 83.0 H Lymphocytes % (Manual) 10.0 L Monocytes % (Manual) Basophils % (Manual) Nucleated RBC % 2.0 H Seg Neutrophils # Seg Neutrophils # Man 9.0 H Lymphocytes # (Manual) 1.1 L Monocytes # (Manual) Basophils # (Manual) PT 27.0 H INR 2.44 H APTT 61.4 H* Fibrinogen 482 H D-Dimer 1992.93 H ABG pH POC ABG pCO2 POC ABG pO2 ABG Hemoglobin ABG Oxyhemoglobin ABG Sodium ABG Potassium ABG Chloride ABG Glucose Sodium 122 L Potassium 3.1 L Chloride 92.9 L Carbon Dioxide BUN 44 H Creatinine 3.2 H Glucose POC Glucose Lactic Acid Calcium 7.8 L Magnesium Iron Total Bilirubin Direct Bilirubin AST ALT Alkaline Phosphatase Ammonia CK-MB (CK-2) CK-MB (CK-2) Rel Index Total Protein Albumin Arterial Blood Glucose Arterial Blood Ionized Calcium Urine Creatinine Urine Total Protein Salicylates Acetaminophen Crossmatch 10/22/20 10/22/20 10/22/20 04:00 06:00 20:00 WBC RBC 3.29 L Hgb 8.0 L Hct 24.3 L MCV 74 L MCH 24 L MCHC RDW 32.2 H Plt Count 21 L [place] % (Auto) [place] # (Auto) Seg Neutrophils % Seg Neuts % (Manual) Lymphocytes % (Manual) Monocytes % (Manual) Basophils % (Manual) Nucleated RBC % Seg Neutrophils # Seg Neutrophils # Man Lymphocytes # (Manual) Monocytes # (Manual) Basophils # (Manual) PT INR APTT Fibrinogen D-Dimer ABG pH POC ABG pCO2 29.1 L POC ABG pO2 64.1 L ABG Hemoglobin 8.2 L ABG Oxyhemoglobin 90.6 L ABG Sodium 118.8 L ABG Potassium ABG Chloride 96.0 L ABG Glucose 117 H Sodium 126 L Potassium Chloride 95.8 L Carbon Dioxide 21 L BUN 50 H Creatinine 3.4 H Glucose POC Glucose Lactic Acid Calcium 7.9 L Magnesium Iron Total Bilirubin Direct Bilirubin AST ALT Alkaline Phosphatase Ammonia CK-MB (CK-2) CK-MB (CK-2) Rel Index Total Protein Albumin Arterial Blood Glucose 117 H Arterial Blood Ionized Calcium Urine Creatinine Urine Total Protein Salicylates Acetaminophen Crossmatch 10/23/20 10/23/20 10/23/20 04:00 05:35 05:35 WBC RBC 2.94 L Hgb 7.3 L Hct 21.3 L MCV 72 L MCH 25 L MCHC RDW 32.3 H Plt Count 56 L D [place] % (Auto) [place] # (Auto) Seg Neutrophils % Seg Neuts % (Manual) 83.0 H Lymphocytes % (Manual) 9.0 L Monocytes % (Manual) Basophils % (Manual) Nucleated RBC % 3.0 H Seg Neutrophils # Seg Neutrophils # Man Lymphocytes # (Manual) 0.7 L Monocytes # (Manual) Basophils # (Manual) PT INR APTT Fibrinogen D-Dimer ABG pH POC ABG pCO2 29.0 L POC ABG pO2 ABG Hemoglobin 7.7 L ABG Oxyhemoglobin ABG Sodium 120.4 L ABG Potassium ABG Chloride 97.0 L ABG Glucose Sodium 128 L Potassium Chloride 96.7 L Carbon Dioxide BUN 56 H Creatinine 3.4 H Glucose POC Glucose Lactic Acid Calcium Magnesium Iron Total Bilirubin Direct Bilirubin AST ALT Alkaline Phosphatase Ammonia CK-MB (CK-2) CK-MB (CK-2) Rel Index Total Protein Albumin Arterial Blood Glucose Arterial Blood Ionized Calcium Urine Creatinine Urine Total Protein Salicylates Acetaminophen Crossmatch 10/23/20 10/24/20 10/24/20 21:01 03:00 05:27 WBC RBC 2.98 L Hgb 7.4 L Hct 21.8 L MCV 73 L MCH 25 L MCHC RDW 32.2 H Plt Count 56 L [place] % (Auto) [place] # (Auto) Seg Neutrophils % Seg Neuts % (Manual) Lymphocytes % (Manual) Monocytes % (Manual) Basophils % (Manual) Nucleated RBC % Seg Neutrophils # Seg Neutrophils # Man Lymphocytes # (Manual) Monocytes # (Manual) Basophils # (Manual) PT INR APTT Fibrinogen D-Dimer ABG pH 7.490 H POC ABG pCO2 26.8 L POC ABG pO2 ABG Hemoglobin 3.3 L ABG Oxyhemoglobin 83.6 L ABG Sodium 118.0 L ABG Potassium ABG Chloride 97.0 L ABG Glucose Sodium Potassium Chloride Carbon Dioxide BUN Creatinine Glucose POC Glucose > 600 H Lactic Acid Calcium Magnesium Iron Total Bilirubin Direct Bilirubin AST ALT Alkaline Phosphatase Ammonia CK-MB (CK-2) CK-MB (CK-2) Rel Index Total Protein Albumin Arterial Blood Glucose Arterial Blood Ionized Calcium 4.5 L Urine Creatinine Urine Total Protein Salicylates Acetaminophen Crossmatch 10/24/20 10/24/20 10/24/20 05:27 05:27 10:07 WBC RBC Hgb Hct MCV MCH MCHC RDW Plt Count [place] % (Auto) [place] # (Auto) Seg Neutrophils % Seg Neuts % (Manual) Lymphocytes % (Manual) Monocytes % (Manual) Basophils % (Manual) Nucleated RBC % Seg Neutrophils # Seg Neutrophils # Man Lymphocytes # (Manual) Monocytes # (Manual) Basophils # (Manual) PT 20.4 H INR 1.70 H APTT Fibrinogen D-Dimer ABG pH POC ABG pCO2 POC ABG pO2 ABG Hemoglobin ABG Oxyhemoglobin ABG Sodium ABG Potassium ABG Chloride ABG Glucose Sodium 123 L Potassium 3.5 L Chloride 93.3 L Carbon Dioxide 20 L BUN 66 H Creatinine 3.9 H Glucose POC Glucose 110 H Lactic Acid Calcium 8.1 L Magnesium Iron Total Bilirubin Direct Bilirubin AST 54 H ALT Alkaline Phosphatase 316 H Ammonia CK-MB (CK-2) CK-MB (CK-2) Rel Index Total Protein 5.1 L Albumin 1.7 L Arterial Blood Glucose Arterial Blood Ionized Calcium Urine Creatinine Urine Total Protein Salicylates Acetaminophen Crossmatch 10/24/20 10/24/20 10/24/20 18:24 23:11 23:28 WBC RBC Hgb Hct MCV MCH MCHC RDW Plt Count [place] % (Auto) [place] # (Auto) Seg Neutrophils % Seg Neuts % (Manual) Lymphocytes % (Manual) Monocytes % (Manual) Basophils % (Manual) Nucleated RBC % Seg Neutrophils # Seg Neutrophils # Man Lymphocytes # (Manual) Monocytes # (Manual) Basophils # (Manual) PT INR APTT Fibrinogen D-Dimer ABG pH POC ABG pCO2 POC ABG pO2 ABG Hemoglobin ABG Oxyhemoglobin ABG Sodium ABG Potassium ABG Chloride ABG Glucose Sodium Potassium Chloride Carbon Dioxide BUN Creatinine Glucose 142 H POC Glucose 121 H 137 H Lactic Acid Calcium Magnesium Iron Total Bilirubin Direct Bilirubin AST ALT Alkaline Phosphatase Ammonia CK-MB (CK-2) CK-MB (CK-2) Rel Index Total Protein Albumin Arterial Blood Glucose Arterial Blood Ionized Calcium Urine Creatinine Urine Total Protein Salicylates Acetaminophen Crossmatch 10/25/20 10/25/20 10/25/20 05:22 05:22 05:28 WBC RBC Hgb Hct MCV MCH MCHC RDW Plt Count [place] % (Auto) [place] # (Auto) Seg Neutrophils % Seg Neuts % (Manual) Lymphocytes % (Manual) Monocytes % (Manual) Basophils % (Manual) Nucleated RBC % Seg Neutrophils # Seg Neutrophils # Man Lymphocytes # (Manual) Monocytes # (Manual) Basophils # (Manual) PT INR APTT Fibrinogen D-Dimer ABG pH POC ABG pCO2 POC ABG pO2 ABG Hemoglobin ABG Oxyhemoglobin ABG Sodium ABG Potassium ABG Chloride ABG Glucose Sodium 133 L D Potassium Chloride Carbon Dioxide BUN 55 H Creatinine 3.1 H Glucose 127 H 127 H POC Glucose 121 H Lactic Acid Calcium Magnesium Iron Total Bilirubin Direct Bilirubin AST ALT Alkaline Phosphatase Ammonia CK-MB (CK-2) CK-MB (CK-2) Rel Index Total Protein Albumin Arterial Blood Glucose Arterial Blood Ionized Calcium Urine Creatinine Urine Total Protein Salicylates Acetaminophen Crossmatch 10/25/20 10/25/20 10/25/20 08:35 11:39 15:09 WBC RBC 2.84 L Hgb 7.0 L Hct 20.9 L MCV 74 L MCH 25 L MCHC RDW 30.8 H Plt Count 101 L [place] % (Auto) [place] # (Auto) Seg Neutrophils % Seg Neuts % (Manual) Lymphocytes % (Manual) Monocytes % (Manual) Basophils % (Manual) Nucleated RBC % Seg Neutrophils # Seg Neutrophils # Man Lymphocytes # (Manual) Monocytes # (Manual) Basophils # (Manual) PT INR APTT Fibrinogen D-Dimer ABG pH POC ABG pCO2 POC ABG pO2 ABG Hemoglobin ABG Oxyhemoglobin ABG Sodium ABG Potassium ABG Chloride ABG Glucose Sodium Potassium Chloride Carbon Dioxide BUN Creatinine Glucose 179 H POC Glucose 165 H Lactic Acid Calcium Magnesium Iron Total Bilirubin Direct Bilirubin AST ALT Alkaline Phosphatase Ammonia CK-MB (CK-2) CK-MB (CK-2) Rel Index Total Protein Albumin Arterial Blood Glucose Arterial Blood Ionized Calcium Urine Creatinine Urine Total Protein Salicylates Acetaminophen Crossmatch 10/25/20 10/25/20 10/25/20 15:15 17:51 23:10 WBC RBC Hgb Hct MCV MCH MCHC RDW Plt Count [place] % (Auto) [place] # (Auto) Seg Neutrophils % Seg Neuts % (Manual) Lymphocytes % (Manual) Monocytes % (Manual) Basophils % (Manual) Nucleated RBC % Seg Neutrophils # Seg Neutrophils # Man Lymphocytes # (Manual) Monocytes # (Manual) Basophils # (Manual) PT INR APTT Fibrinogen D-Dimer ABG pH 7.478 H POC ABG pCO2 POC ABG pO2 39.0 L ABG Hemoglobin 7.7 L ABG Oxyhemoglobin 72.9 L ABG Sodium 133.3 L ABG Potassium ABG Chloride ABG Glucose 189 H Sodium Potassium Chloride Carbon Dioxide BUN Creatinine Glucose POC Glucose 132 H 140 H Lactic Acid Calcium Magnesium Iron Total Bilirubin Direct Bilirubin AST ALT Alkaline Phosphatase Ammonia CK-MB (CK-2) CK-MB (CK-2) Rel Index Total Protein Albumin Arterial Blood Glucose 189 H Arterial Blood Ionized Calcium 4.4 L Urine Creatinine Urine Total Protein Salicylates Acetaminophen Crossmatch 10/26/20 10/26/20 10/26/20 04:30 11:00 11:28 WBC RBC 2.94 L Hgb 7.3 L Hct 22.9 L MCV 76 L MCH 25 L MCHC RDW 29.8 H Plt Count 138 L [place] % (Auto) [place] # (Auto) Seg Neutrophils % Seg Neuts % (Manual) Lymphocytes % (Manual) Monocytes % (Manual) Basophils % (Manual) Nucleated RBC % Seg Neutrophils # Seg Neutrophils # Man Lymphocytes # (Manual) Monocytes # (Manual) Basophils # (Manual) PT INR APTT Fibrinogen D-Dimer ABG pH POC ABG pCO2 POC ABG pO2 ABG Hemoglobin ABG Oxyhemoglobin ABG Sodium ABG Potassium ABG Chloride ABG Glucose Sodium 136 L Potassium Chloride Carbon Dioxide BUN 44 H Creatinine 2.7 H Glucose POC Glucose 137 H Lactic Acid Calcium 8.1 L Magnesium Iron Total Bilirubin Direct Bilirubin AST ALT Alkaline Phosphatase Ammonia CK-MB (CK-2) CK-MB (CK-2) Rel Index Total Protein Albumin Arterial Blood Glucose Arterial Blood Ionized Calcium Urine Creatinine Urine Total Protein Salicylates Acetaminophen Crossmatch 10/26/20 10/26/20 10/27/20 17:06 23:11 04:30 WBC RBC Hgb Hct MCV MCH MCHC RDW Plt Count [place] % (Auto) [place] # (Auto) Seg Neutrophils % Seg Neuts % (Manual) Lymphocytes % (Manual) Monocytes % (Manual) Basophils % (Manual) Nucleated RBC % Seg Neutrophils # Seg Neutrophils # Man Lymphocytes # (Manual) Monocytes # (Manual) Basophils # (Manual) PT INR APTT Fibrinogen D-Dimer ABG pH POC ABG pCO2 POC ABG pO2 ABG Hemoglobin ABG Oxyhemoglobin ABG Sodium ABG Potassium ABG Chloride ABG Glucose Sodium Potassium Chloride Carbon Dioxide BUN 38 H Creatinine 2.5 H Glucose 108 H POC Glucose 116 H 108 H Lactic Acid Calcium Magnesium Iron Total Bilirubin Direct Bilirubin AST ALT Alkaline Phosphatase Ammonia CK-MB (CK-2) CK-MB (CK-2) Rel Index Total Protein Albumin Arterial Blood Glucose Arterial Blood Ionized Calcium Urine Creatinine Urine Total Protein Salicylates Acetaminophen Crossmatch 10/27/20 10/27/20 10/27/20 04:30 04:57 12:50 WBC RBC 2.79 L Hgb 6.9 L Hct 21.3 L MCV 76 L MCH 25 L MCHC RDW 30.2 H Plt Count [place] % (Auto) [place] # (Auto) Seg Neutrophils % Seg Neuts % (Manual) Lymphocytes % (Manual) Monocytes % (Manual) Basophils % (Manual) Nucleated RBC % Seg Neutrophils # Seg Neutrophils # Man Lymphocytes # (Manual) Monocytes # (Manual) Basophils # (Manual) PT INR APTT Fibrinogen D-Dimer ABG pH POC ABG pCO2 POC ABG pO2 ABG Hemoglobin ABG Oxyhemoglobin ABG Sodium ABG Potassium ABG Chloride ABG Glucose Sodium Potassium Chloride Carbon Dioxide BUN Creatinine Glucose POC Glucose 106 H Lactic Acid Calcium Magnesium Iron Total Bilirubin Direct Bilirubin AST ALT Alkaline Phosphatase Ammonia CK-MB (CK-2) CK-MB (CK-2) Rel Index Total Protein Albumin Arterial Blood Glucose Arterial Blood Ionized Calcium Urine Creatinine Urine Total Protein Salicylates Acetaminophen Crossmatch See Detail 10/27/20 10/27/20 10/28/20 17:29 23:14 04:30 WBC 12.2 H RBC 3.07 L Hgb 7.8 L Hct 24.3 L MCV 79 L MCH 25 L MCHC RDW 29.5 H Plt Count [place] % (Auto) [place] # (Auto) Seg Neutrophils % Seg Neuts % (Manual) Lymphocytes % (Manual) Monocytes % (Manual) Basophils % (Manual) Nucleated RBC % Seg Neutrophils # Seg Neutrophils # Man Lymphocytes # (Manual) Monocytes # (Manual) Basophils # (Manual) PT INR APTT Fibrinogen D-Dimer ABG pH POC ABG pCO2 POC ABG pO2 ABG Hemoglobin ABG Oxyhemoglobin ABG Sodium ABG Potassium ABG Chloride ABG Glucose Sodium Potassium Chloride Carbon Dioxide BUN Creatinine Glucose POC Glucose 127 H 121 H Lactic Acid Calcium Magnesium Iron Total Bilirubin Direct Bilirubin AST ALT Alkaline Phosphatase Ammonia CK-MB (CK-2) CK-MB (CK-2) Rel Index Total Protein Albumin Arterial Blood Glucose Arterial Blood Ionized Calcium Urine Creatinine Urine Total Protein Salicylates Acetaminophen Crossmatch 10/28/20 04:30 WBC RBC Hgb Hct MCV MCH MCHC RDW Plt Count [place] % (Auto) [place] # (Auto) Seg Neutrophils % Seg Neuts % (Manual) Lymphocytes % (Manual) Monocytes % (Manual) Basophils % (Manual) Nucleated RBC % Seg Neutrophils # Seg Neutrophils # Man Lymphocytes # (Manual) Monocytes # (Manual) Basophils # (Manual) PT INR APTT Fibrinogen D-Dimer ABG pH POC ABG pCO2 POC ABG pO2 ABG Hemoglobin ABG Oxyhemoglobin ABG Sodium ABG Potassium ABG Chloride ABG Glucose Sodium Potassium 3.5 L Chloride Carbon Dioxide BUN 33 H Creatinine 2.2 H Glucose POC Glucose Lactic Acid Calcium Magnesium Iron Total Bilirubin Direct Bilirubin AST ALT Alkaline Phosphatase Ammonia CK-MB (CK-2) CK-MB (CK-2) Rel Index Total Protein Albumin Arterial Blood Glucose Arterial Blood Ionized Calcium Urine Creatinine Urine Total Protein Salicylates Acetaminophen Crossmatch Chest x-ray: image reviewed Allied health notes reviewed: RT
[2020-10-28] MEDS: levETIRAcetam 250 MG in DEXTROSE 5% IN WATER 100 ML IV SCH ×2 (11:00→22:27)
--- NOTE | 2020-10-28 11:24 | Progress Note ---
Assessment and Plan Acute encephalopathy Hyponatremia Hypothermia, resolved Pulmonary infiltrate in right lung on CXR Atherosclerotic cerebrovascular disease Severe anemia -possible GI bleed Severe protein-calorie malnutrition Acute Renal Failure Hypokalemia Plan: -HD today for clearance and volume removal -will likely hold HD tomorrow -Renal ultrasound- no hydronephrosis -Avoid nephrotoxic agents -Obtain daily weights -Monitor I/O's daily -Monitor renal function closely Subjective Date of service: 10/28/20 Principal diagnosis: Ac hypoxemic resp failure; Pneumonia; BETSY; Ac. encephalopathy Interval history: intubated and sedated. tolerating HD Objective - Vital Signs Vital signs: Vital Signs - 12hr 10/27/20 10/27/20 10/27/20 23:30 23:34 23:45 Temperature 99 F Pulse Rate 93 H 105 H Pulse Rate [ From Monitor] Respiratory 20 20 Rate Blood Pressure 110/57 108/60 O2 Sat by Pulse 94 91 Oximetry O2 Sat by Pulse Oximetry [ Anterior Bilateral Throughout] 10/28/20 10/28/20 10/28/20 00:00 00:09 00:15 Temperature Pulse Rate 96 H 95 H 99 H Pulse Rate [ 92 H From Monitor] Respiratory 20 20 Rate Blood Pressure 115/55 115/55 108/62 O2 Sat by Pulse 94 94 93 Oximetry O2 Sat by Pulse Oximetry [ Anterior Bilateral Throughout] 10/28/20 10/28/20 10/28/20 00:30 00:45 01:00 Temperature Pulse Rate 98 H 94 H 105 H Pulse Rate [ From Monitor] Respiratory 20 20 21 Rate Blood Pressure 106/65 109/71 117/63 O2 Sat by Pulse 92 93 91 Oximetry O2 Sat by Pulse Oximetry [ Anterior Bilateral Throughout] 10/28/20 10/28/20 10/28/20 01:15 01:30 01:45 Temperature Pulse Rate 99 H 107 H 97 H Pulse Rate [ From Monitor] Respiratory 20 20 20 Rate Blood Pressure 113/59 114/61 110/58 O2 Sat by Pulse 93 93 92 Oximetry O2 Sat by Pulse Oximetry [ Anterior Bilateral Throughout] 10/28/20 10/28/20 10/28/20 02:00 02:15 02:30 Temperature Pulse Rate 101 H 108 H 103 H Pulse Rate [ From Monitor] Respiratory 20 27 H 20 Rate Blood Pressure 105/62 102/69 103/51 O2 Sat by Pulse 87 85 86 Oximetry O2 Sat by Pulse Oximetry [ Anterior Bilateral Throughout] 10/28/20 10/28/20 10/28/20 02:45 03:01 03:15 Temperature Pulse Rate 105 H 99 H 99 H Pulse Rate [ From Monitor] Respiratory 21 19 21 Rate Blood Pressure 106/67 99/59 94/64 O2 Sat by Pulse 86 86 86 Oximetry O2 Sat by Pulse Oximetry [ Anterior Bilateral Throughout] 10/28/20 10/28/20 10/28/20 03:20 03:30 03:45 Temperature 99.5 F Pulse Rate 116 H 119 H Pulse Rate [ From Monitor] Respiratory 19 17 Rate Blood Pressure 112/61 120/72 O2 Sat by Pulse 85 91 Oximetry O2 Sat by Pulse Oximetry [ Anterior Bilateral Throughout] 10/28/20 10/28/20 10/28/20 03:59 04:00 04:15 Temperature Pulse Rate 108 H 116 H 100 H Pulse Rate [ 107 H From Monitor] Respiratory 20 20 Rate Blood Pressure 100/58 100/58 113/62 O2 Sat by Pulse 92 90 91 Oximetry O2 Sat by Pulse Oximetry [ Anterior Bilateral Throughout] 10/28/20 10/28/20 10/28/20 04:30 04:45 05:00 Temperature Pulse Rate 111 H 114 H 105 H Pulse Rate [ From Monitor] Respiratory 13 21 22 Rate Blood Pressure 114/93 116/80 104/57 O2 Sat by Pulse 88 90 90 Oximetry O2 Sat by Pulse Oximetry [ Anterior Bilateral Throughout] 10/28/20 10/28/20 10/28/20 05:15 05:30 05:45 Temperature Pulse Rate 108 H 119 H 104 H Pulse Rate [ From Monitor] Respiratory 23 20 24 Rate Blood Pressure 114/63 105/60 124/78 O2 Sat by Pulse 89 86 91 Oximetry O2 Sat by Pulse Oximetry [ Anterior Bilateral Throughout] 10/28/20 10/28/20 10/28/20 06:01 06:15 06:31 Temperature Pulse Rate 113 H 101 H 107 H Pulse Rate [ From Monitor] Respiratory 21 20 22 Rate Blood Pressure 126/62 123/100 133/68 O2 Sat by Pulse 94 92 95 Oximetry O2 Sat by Pulse Oximetry [ Anterior Bilateral Throughout] 10/28/20 10/28/20 10/28/20 06:45 07:00 07:15 Temperature 99.3 F Pulse Rate 98 H 97 H 112 H Pulse Rate [ From Monitor] Respiratory 22 21 20 Rate Blood Pressure 111/62 117/69 113/54 O2 Sat by Pulse 91 92 97 Oximetry O2 Sat by Pulse Oximetry [ Anterior Bilateral Throughout] 10/28/20 10/28/20 10/28/20 07:30 07:45 08:00 Temperature Pulse Rate 117 H 110 H 135 H Pulse Rate [ 122 H From Monitor] Respiratory 20 25 H 21 Rate Blood Pressure 119/74 115/70 116/80 O2 Sat by Pulse 98 97 100 Oximetry O2 Sat by Pulse Oximetry [ Anterior Bilateral Throughout] 10/28/20 10/28/20 10/28/20 08:15 08:30 08:45 Temperature 99.5 F Pulse Rate 149 H 121 H 115 H Pulse Rate [ From Monitor] Respiratory 21 22 20 Rate Blood Pressure 114/70 114/72 109/67 O2 Sat by Pulse 100 100 97 Oximetry O2 Sat by Pulse 100 Oximetry [ Anterior Bilateral Throughout] 10/28/20 10/28/20 10/28/20 08:50 09:00 09:15 Temperature Pulse Rate 104 H 103 H 95 H Pulse Rate [ From Monitor] Respiratory 24 20 Rate Blood Pressure 109/67 93/53 90/60 O2 Sat by Pulse 99 100 Oximetry O2 Sat by Pulse Oximetry [ Anterior Bilateral Throughout] 10/28/20 10/28/20 10/28/20 09:30 09:45 10:00 Temperature Pulse Rate 99 H 95 H 97 H Pulse Rate [ From Monitor] Respiratory 21 19 21 Rate Blood Pressure 87/59 90/66 103/61 O2 Sat by Pulse 100 100 100 Oximetry O2 Sat by Pulse Oximetry [ Anterior Bilateral Throughout] 10/28/20 10/28/20 10/28/20 10:15 10:30 10:45 Temperature Pulse Rate 93 H 89 95 H Pulse Rate [ From Monitor] Respiratory Rate Blood Pressure 92/59 94/57 99/60 O2 Sat by Pulse Oximetry O2 Sat by Pulse Oximetry [ Anterior Bilateral Throughout] 10/28/20 10/28/20 11:00 11:15 Temperature Pulse Rate 101 H 96 H Pulse Rate [ From Monitor] Respiratory Rate Blood Pressure 82/62 92/61 O2 Sat by Pulse Oximetry O2 Sat by Pulse Oximetry [ Anterior Bilateral Throughout] - Lab 10/28/20 04:30 10/28/20 04:30 Most recent lab results ABG pH 7.478 (7.320-7.450) H 10/25/20 15:15 ABG O2 Saturation 73.5 (0-100) 10/25/20 15:15 Calcium 8.6 mg/dL (8.4-10.2) 10/28/20 04:30 Phosphorus 2.80 mg/dL (2.5-4.5) 10/23/20 05:35 Magnesium 2.10 mg/dL (1.7-2.3) 10/23/20 05:35 Urine Creatinine 144.2 mg/dL (0.1-20.0) H 10/14/20 Unknown Urine Sodium 10 mmol/L 10/14/20 Unknown Urine Total Protein 97 mg/dL (5-11.8) H 10/14/20 Unknown Medications & Allergies - Medications Allergies/Adverse Reactions: Allergies No Known Allergies Allergy (Unverified 10/03/20 12:27) Home Medications: Home Medications Medication Instructions Recorded Confirmed Last Taken Type Unobtainable 10/10/20 10/10/20 Unknown History Active Medications: Generic Name Dose Route Start Last Admin Trade Name Freq PRN Reason Stop Dose Admin Acetaminophen 650 mg 10/03/20 02:10 10/06/20 15:28 Acetaminophen 325 Mg Tab PO 650 mg Q4H PRN Administration Pain MILD(1-3)/Fever >100.5/ROMERO Al Hydrox/Mg Hydrox/Simethicone 30 ml 10/03/20 02:10 Alum-Mag Hydroxide-Simethicone [phone]/5ml Oral Liqd 30 Ml PO Q4H PRN Indigestion Lipase/Protease/Amylase 1 each 10/03/20 16:51 Lipase 10,500/Protease 25,000/Amylase 43,750 (Units) Dr Reis FEEDTUBE PRN PRN For Clogged Feeding Tube Dextrose 50 ml 10/16/20 12:42 10/21/20 17:39 Dextrose 50% In Water (25gm) 50 Ml Syringe IV 50 ml Q30MIN PRN Administration Hypoglycemia Protocol Fentanyl 50 mcg 10/22/20 10:00 10/28/20 08:56 Fentanyl 100 Mcg/2 Ml Inj IV 50 mcg Q4HR PRN Administration Pain , Severe (7-10) Ferrous Sulfate 308 mg 10/16/20 10:00 10/27/20 09:04 Ferrous Sulfate 308 Mg (62mg Elemental Iron) / 7 Ml Elixir FEEDTUBE 308 mg DAILY JOSE Administration Folic Acid 1 mg 10/03/20 10:00 10/28/20 09:00 Folic Acid 1 Mg Tab PO 1 mg QDAY JOSE Administration Levetiracetam 250 mg/ Dextrose 102.5 mls @ 400 mls/hr 10/10/20 22:00 10/27/20 22:16 IV 400 mls/hr Q12HR JOSE Administration NORepinephrine/NS 8 MG-250 ML 8 mg in 250 mls @ 3.75 mls/hr 10/16/20 19:00 10/21/20 16:56 Norepinephrine/Ns 8 Mg-250 Ml (Double Conc) IV 0 mcg/min TITRATE JOSE 0 mls/hr Titration Protocol 2 MCG/MIN Magnesium Hydroxide 30 ml 10/03/20 02:10 Magnesium Hydroxide (Mom) Oral Liqd Udc PO Q4H PRN Constipation Midodrine 10 mg 10/24/20 18:00 10/28/20 09:00 Midodrine 5 Mg Tab PO 10 mg Q8H JOSE Administration Pantoprazole Sodium 40 mg 10/04/20 15:00 10/28/20 09:00 Pantoprazole 40 Mg Inj IV 40 mg QDAY JOSE Administration Promethazine HCl 25 mg 10/03/20 02:10 Promethazine 25 Mg Rect Supp AL Q6H PRN N/V IF NPO AND NO IV ACCESS Senna 8.6 mg 10/03/20 02:10 Sennosides 8.6 Mg Tab PO Q12HR PRN Constipation Simple Syrup 15 ml 10/03/20 16:51 10/19/20 02:08 Simple Syrup 15 Ml FEEDTUBE 15 ml PRN PRN Administration Hypoglycemia Simple Syrup 30 ml 10/03/20 16:51 10/16/20 22:02 Simple Syrup 15 Ml FEEDTUBE 30 ml PRN PRN Administration Hypoglycemia Sodium Bicarbonate 325 mg 10/03/20 16:51 Sodium Bicarbonate 325 Mg Tab FEEDTUBE PRN PRN For Clogged Feeding Tube
[2020-10-28] MEDS: FERROUS SULFATE 308 MG (62mg Elemental Iron) / 7 ML ELIXIR FEEDTUBE SCH (12:28)
--- NOTE | 2020-10-28 12:47 | Progress Note ---
Assessment and Plan Assessment and plan: #Atherosclerotic cerebrovascular disease #Altered mental status -Persistent -Neurology evaluated patient in the past -Continue Keppra, seizure precautions -Continue thiamine and folate #Paroxysmal atrial fibrillation #Heart failure reduced ejection fraction -EF 10-15%, recent echo EF 25-30% -maintain MAP greater than 65 -dobutamine discontinued -continue midodrine -Cardiology following -improving volume with continued post dialysis #Acute hypoxic respiratory failure -Currently on mechanical ventilation (intubated 10/15) -CCM following, assistance appreciated -Continue stress dose steroids #BETSY -Nephrology following -continue HD #Acute on chronic anemia -1 packed red blood cells transfused 10/27 -Hemoglobin 7.8 today -maintain hemoglobin greater than 7 #Superficial venous thrombosis -Bilateral upper and lower extremity Doppler ultrasound show superficial venous thrombus of left basilic and cephalic veins #Thrombocytopenia -Resolved -likely due to critical illness #GI bleed -Continue protonix -GI consulted in the past, will hold off EGD/PEG given clinical condition Total Time Spent with Patient (Minutes): 30 minutes History Interval history: Patient on mechanical ventilation. Spontaneously opening and closing eyes. Hospitalist Physical - Physical exam Narrative exam: GENERAL: Intubated. HEENT: ETT/PEGGY in place. CHEST/LUNGS: Coarse breath sound bilaterally. HEART/CARDIOVASCULAR: irregularly irregular rhythm. No murmur, rubs or gallops appreciated. ABDOMEN: +BS. NT/ND. SKIN: Improved edema upper and lower extremities. NEURO: Unable to assess given patient mental status EXTREMITIES: 2+ edema PSYCH: Unable to assess. - Constitutional Vitals: Temp Pulse Resp BP Pulse Ox 97.7 F 97 H 15 93/69 99 10/28/20 12:08 10/28/20 12:31 10/28/20 12:31 10/28/20 12:31 10/28/20 12:31 General appearance: Present: no acute distress, other (intubated and minimally responsive to tactile stimuli) HEART Score - HEART Score Troponin: Troponin T < 0.010 ng/mL (0.00-0.029) 10/02/20 23:17 Results - Labs CBC & Chem 7: 10/28/20 04:30 10/28/20 04:30 Labs: Laboratory Last Values WBC 12.2 K/mm3 (4.5-11.0) H 10/28/20 04:30 RBC 3.07 M/mm3 (3.65-5.03) L 10/28/20 04:30 Hgb 7.8 gm/dl (11.8-15.2) L 10/28/20 04:30 Hct 24.3 % (35.5-45.6) L 10/28/20 04:30 MCV 79 fl (84-94) L 10/28/20 04:30 MCH 25 pg (28-32) L 10/28/20 04:30 MCHC 32 % (32-34) 10/28/20 04:30 RDW 29.5 % (13.2-15.2) H 10/28/20 04:30 Plt Count 211 K/mm3 (140-440) 10/28/20 04:30 Lymph % (Auto) Mortgage Branch Manager 10/10/20 10:58 [place] % (Auto) 8.3 % (0.0-7.3) H 10/15/20 05:50 Eos % (Auto) 0.3 % (0.0-4.3) 10/15/20 05:50 Baso % (Auto) Mortgage Branch Manager 10/10/20 10:58 Lymph # (Auto) Mortgage Branch Manager 10/10/20 10:58 Lo[place] # (Auto) 1.3 K/mm3 (0.0-0.8) H 10/15/20 05:50 Eos # (Auto) 0.0 K/mm3 (0.0-0.4) 10/15/20 05:50 Baso # (Auto) 0.1 K/mm3 (0.0-0.1) 10/15/20 05:50 Add Manual Diff Complete 10/23/20 05:35 Total Counted 100 10/23/20 05:35 Seg Neutrophils % Mortgage Branch Manager 10/21/20 Unknown Seg Neuts % (Manual) 83.0 % (40.0-70.0) H 10/23/20 05:35 Band Neutrophils % 5.0 % 10/23/20 05:35 Lymphocytes % (Manual) 9.0 % (13.4-35.0) L 10/23/20 05:35 Reactive Lymphs % (Man) 1.0 % 10/23/20 05:35 Monocytes % (Manual) 1.0 % (0.0-7.3) 10/23/20 05:35 Eosinophils % (Manual) 1.0 % (0.0-4.3) 10/23/20 05:35 Basophils % (Manual) 2.0 % (0.0-1.8) H 10/10/20 10:58 Metamyelocytes % 11.0 % 10/17/20 04:49 Myelocytes % 7.0 % 10/17/20 04:49 Nucleated RBC % 3.0 % (0.0-0.9) H 10/23/20 05:35 Seg Neutrophils # 13.2 K/mm3 (1.8-7.7) H 10/15/20 05:50 Seg Neutrophils # Man 6.1 K/mm3 (1.8-7.7) 10/23/20 05:35 Band Neutrophils # 0.4 K/mm3 10/23/20 05:35 Lymphocytes # (Manual) 0.7 K/mm3 (1.2-5.4) L 10/23/20 05:35 Abs React Lymphs (Man) 0.1 K/mm3 10/23/20 05:35 Monocytes # (Manual) 0.1 K/mm3 (0.0-0.8) 10/23/20 05:35 Eosinophils # (Manual) 0.1 K/mm3 (0.0-0.4) 10/23/20 05:35 Basophils # (Manual) 0.0 K/mm3 (0.0-0.1) 10/23/20 05:35 Metamyelocytes # 0.0 K/mm3 10/23/20 05:35 Myelocytes # 0.0 K/mm3 10/23/20 05:35 Promyelocytes # 0.0 K/mm3 10/23/20 05:35 Blast Cells # 0.0 K/mm3 10/23/20 05:35 WBC Morphology Not Reportable 10/23/20 05:35 Hypersegmented Neuts Not Reportable 10/23/20 05:35 Hyposegmented Neuts Not Reportable 10/23/20 05:35 Hypogranular Neuts Not Reportable 10/23/20 05:35 Smudge Cells Not Reportable 10/23/20 05:35 Toxic Granulation 1+ 10/23/20 05:35 Toxic Vacuolation 1+ 10/23/20 05:35 Dohle Bodies 1+ 10/23/20 05:35 Pelger-Huet Anomaly Not Reportable 10/23/20 05:35 Andrés Rods Not Reportable 10/23/20 05:35 Platelet Estimate Consistent w auto 10/23/20 05:35 Clumped Platelets Not Reportable 10/23/20 05:35 Plt Clumps, EDTA Not Reportable 10/23/20 05:35 Large Platelets Not Reportable 10/23/20 05:35 Giant Platelets Not Reportable 10/23/20 05:35 Platelet Satelliting Not Reportable 10/23/20 05:35 Plt Morphology Comment Not Reportable 10/23/20 05:35 RBC Morphology Not Reportable 10/23/20 05:35 Dimorphic RBCs Not Reportable 10/23/20 05:35 Polychromasia 1+ 10/23/20 05:35 Hypochromasia 2+ 10/23/20 05:35 Poikilocytosis 2+ 10/23/20 05:35 Anisocytosis 3+ 10/23/20 05:35 Microcytosis Not Reportable 10/23/20 05:35 Macrocytosis Not Reportable 10/23/20 05:35 Spherocytes 1+ 10/23/20 05:35 Pappenheimer Bodies Not Reportable 10/23/20 05:35 Sickle Cells Not Reportable 10/23/20 05:35 Target Cells 1+ 10/23/20 05:35 Tear Drop Cells Not Reportable 10/23/20 05:35 Ovalocytes Not Reportable 10/23/20 05:35 Helmet Cells Not Reportable 10/23/20 05:35 Fre[place] Bodies Not Reportable 10/23/20 05:35 [place] Rings Not Reportable 10/23/20 05:35 Norbert Cells Not Reportable 10/23/20 05:35 Bite Cells Not Reportable 10/23/20 05:35 Crenated Cell Not Reportable 10/23/20 05:35 Elliptocytes Not Reportable 10/23/20 05:35 Acanthocytes (Spur) 1+ 10/23/20 05:35 Rouleaux Not Reportable 10/23/20 05:35 Hemoglobin C Crystals Not Reportable 10/23/20 05:35 Schistocytes Not Reportable 10/23/20 05:35 Malaria parasites Not Reportable 10/23/20 05:35 Dereck Bodies Not Reportable 10/23/20 05:35 Hem Pathologist Commnt No 10/23/20 05:35 PT 20.4 Sec. (12.2-14.9) H 10/24/20 05:27 INR 1.70 (0.87-1.13) H 10/24/20 05:27 APTT 61.4 Sec. (24.2-36.6) H* 10/21/20 Unknown Thrombin Time 17.8 Sec. (15.1-19.6) 10/02/20 23:17 Fibrinogen 482 mg/dl (211-480) H 10/21/20 Unknown D-Dimer 1992.93 ng/mlDDU (0-234) H 10/21/20 Unknown ABG pH 7.478 (7.320-7.450) H 10/25/20 15:15 POC ABG pCO2 39.3 mmHg (32.0-48.0) 10/25/20 15:15 POC ABG pO2 39.0 mmHg (83-108) L 10/25/20 15:15 POC ABG HCO3 28.5 10/25/20 15:15 ABG O2 Saturation 73.5 (0-100) 10/25/20 15:15 POC ABG Base Excess 4.6 10/25/20 15:15 ABG Hemoglobin 7.7 (12.0-17.5) L 10/25/20 15:15 ABG Oxyhemoglobin 72.9 (94-98) L 10/25/20 15:15 ABG Methemoglobin 0.3 (0.0-1.5) 10/25/20 15:15 ABG Sodium 133.3 mmol/L (136.0-145.0) L 10/25/20 15:15 ABG Potassium 3.4 mmol/L (3.40-4.50) 10/25/20 15:15 ABG Chloride 102.0 mmol/L (98-107) 10/25/20 15:15 ABG Glucose 189 mg/dL (65-95) H 10/25/20 15:15 Carboxyhemoglobin 0.5 (0.5-1.5) 10/25/20 15:15 FiO2 % 30.0 10/25/20 15:15 Sodium 139 mmol/L (137-145) 10/28/20 04:30 Potassium 3.5 mmol/L (3.6-5.0) L 10/28/20 04:30 Chloride 98.3 mmol/L (98-107) 10/28/20 04:30 Carbon Dioxide 30 mmol/L (22-30) 10/28/20 04:30 Anion Gap 14 mmol/L 10/28/20 04:30 BUN 33 mg/dL (9-20) H 10/28/20 04:30 Creatinine 2.2 mg/dL (0.8-1.3) H 10/28/20 04:30 Estimated GFR 35 ml/min 10/28/20 04:30 BUN/Creatinine Ratio 15 % 10/28/20 04:30 Glucose 97 mg/dL (75-100) 10/28/20 04:30 POC Glucose 127 mg/dL (70-105) H 10/28/20 11:26 Hemoglobin A1c 5.2 % (4-6) 10/03/20 05:57 Osmolality 267 Mosm/kg 10/07/20 13:54 Lactic Acid 1.50 mmol/L (0.7-2.0) 10/03/20 04:43 Calcium 8.6 mg/dL (8.4-10.2) 10/28/20 04:30 Phosphorus 2.80 mg/dL (2.5-4.5) 10/23/20 05:35 Magnesium 2.10 mg/dL (1.7-2.3) 10/23/20 05:35 Iron 42 ug/dL (49-181) L 10/03/20 05:57 TIBC 305 mcg/dL (250-450) 10/03/20 05:57 Total Bilirubin 0.80 mg/dL (0.1-1.2) 10/24/20 05:27 Direct Bilirubin 0.9 mg/dL (0-0.2) H 10/19/20 04:51 Indirect Bilirubin 0.6 mg/dL 10/19/20 04:51 AST 54 units/L (5-40) H 10/24/20 05:27 ALT 54 units/L (7-56) 10/24/20 05:27 Alkaline Phosphatase 316 units/L (35-129) H 10/24/20 05:27 Ammonia 36.0 umol/L (25-60) 10/24/20 05:27 Total Creatine Kinase 88 units/L (55-170) 10/02/20 23:17 CK-MB (CK-2) 7.5 ng/mL (0.0-4.0) H 10/02/20 23:17 CK-MB (CK-2) Rel Index 8.5 (0-4) H 10/02/20 23:17 Troponin T < 0.010 ng/mL (0.00-0.029) 10/02/20 23:17 Total Protein 5.1 g/dL (6.3-8.2) L 10/24/20 05:27 Albumin 1.7 g/dL (3.9-5) L 10/24/20 05:27 Albumin/Globulin Ratio 0.5 % 10/24/20 05:27 Lipase 17 units/L (13-60) 10/16/20 22:58 Procalcitonin 0.10 ng/mL (<0.15) 10/10/20 10:58 TSH 2.130 mlU/mL (0.270-4.200) 10/07/20 13:54 Total Cortisol 17.4 mcg/dL () 10/09/20 02:46 Arterial Blood Glucose 189 mg/dL (65-95) H 10/25/20 15:15 Arterial Blood Ionized Calcium 4.4 mg/dL (4.6-5.3) L 10/25/20 15:15 Urine Eosinophils None seen (None Seen) 10/14/20 Unknown Urine Osmolality 223 Mosm/kg 10/07/20 Unknown Urine Creatinine 144.2 mg/dL (0.1-20.0) H 10/14/20 Unknown Protein/Creatinin Ratio 0.67 10/14/20 Unknown Urine Sodium 10 mmol/L 10/14/20 Unknown Urine Total Protein 97 mg/dL (5-11.8) H 10/14/20 Unknown Salicylates < 0.3 mg/dL (2.8-20.0) L 10/02/20 23:17 Acetaminophen 5.0 ug/mL (10.0-30.0) L 10/02/20 23:17 Plasma/Serum Alcohol < 0.01 % (0-0.07) 10/02/20 23:17 Coronavirus (PCR) Negative (Negative) 10/14/20 08:00 Hepatitis A IgM Ab Non-reactive (NonReactive) 10/24/20 15:28 Hep Bs Antigen Nonreactive (Negative) 10/24/20 15:28 Hep B Core IgM Ab Non-reactive (NonReactive) 10/24/20 15:28 Hepatitis C Antibody Non-reactive (NonReactive) 10/24/20 15:28 Blood Type O POSITIVE 10/27/20 12:50 Antibody Screen Negative 10/27/20 12:50 Crossmatch See Detail 10/27/20 12:50 Jackson/IV: Voiding Method Indwelling Catheter Active Medications - Current Medications Current Medications: Generic Name Dose Route Start Last Admin Trade Name Freq PRN Reason Stop Dose Admin Acetaminophen 650 mg 10/03/20 02:10 10/06/20 15:28 Acetaminophen 325 Mg Tab PO 650 mg Q4H PRN Administration Pain MILD(1-3)/Fever >100.5/ROMERO Al Hydrox/Mg Hydrox/Simethicone 30 ml 10/03/20 02:10 Alum-Mag Hydroxide-Simethicone [id number] Oral Liqd 30 Ml PO Q4H PRN Indigestion Lipase/Protease/Amylase 1 each 10/03/20 16:51 Lipase 10,500/Protease 25,000/Amylase 43,750 (Units) Dr Reis FEEDTUBE PRN PRN For Clogged Feeding Tube Dextrose 50 ml 10/16/20 12:42 10/21/20 17:39 Dextrose 50% In Water (25gm) 50 Ml Syringe IV 50 ml Q30MIN PRN Administration Hypoglycemia Protocol Fentanyl 50 mcg 10/22/20 10:00 10/28/20 08:56 Fentanyl 100 Mcg/2 Ml Inj IV 50 mcg Q4HR PRN Administration Pain , Severe (7-10) Ferrous Sulfate 308 mg 10/16/20 10:00 10/28/20 12:28 Ferrous Sulfate 308 Mg (62mg Elemental Iron) / 7 Ml Elixir FEEDTUBE 308 mg DAILY JOSE Administration Folic Acid 1 mg 10/03/20 10:00 10/28/20 09:00 Folic Acid 1 Mg Tab PO 1 mg QDAY JOSE Administration Levetiracetam 250 mg/ Dextrose 102.5 mls @ 400 mls/hr 10/10/20 22:00 10/28/20 11:00 IV 400 mls/hr Q12HR JOSE Administration NORepinephrine/NS 8 MG-250 ML 8 mg in 250 mls @ 3.75 mls/hr 10/16/20 19:00 10/21/20 16:56 Norepinephrine/Ns 8 Mg-250 Ml (Double Conc) IV 0 mcg/min TITRATE JOSE 0 mls/hr Titration Protocol 2 MCG/MIN Magnesium Hydroxide 30 ml 10/03/20 02:10 Magnesium Hydroxide (Mom) Oral Liqd Udc PO Q4H PRN Constipation Midodrine 10 mg 10/24/20 18:00 10/28/20 09:00 Midodrine 5 Mg Tab PO 10 mg Q8H JOSE Administration Pantoprazole Sodium 40 mg 10/04/20 15:00 10/28/20 09:00 Pantoprazole 40 Mg Inj IV 40 mg QDAY JOSE Administration Promethazine HCl 25 mg 10/03/20 02:10 Promethazine 25 Mg Rect Supp ID Q6H PRN N/V IF NPO AND NO IV ACCESS Senna 8.6 mg 10/03/20 02:10 Sennosides 8.6 Mg Tab PO Q12HR PRN Constipation Simple Syrup 15 ml 10/03/20 16:51 10/19/20 02:08 Simple Syrup 15 Ml FEEDTUBE 15 ml PRN PRN Administration Hypoglycemia Simple Syrup 30 ml 10/03/20 16:51 10/16/20 22:02 Simple Syrup 15 Ml FEEDTUBE 30 ml PRN PRN Administration Hypoglycemia Sodium Bicarbonate 325 mg 10/03/20 16:51 Sodium Bicarbonate 325 Mg Tab FEEDTUBE PRN PRN For Clogged Feeding Tube Nutrition/Malnutrition Assess - Dietary Evaluation Nutrition/Malnutrition Findings: Nutrition Notes Start: 10/03/20 08:51 Freq: Status: Active Protocol: Document 10/26/20 12:33 (Rec: 10/26/20 12:38 [id number]) Nutrition Notes Initial or Follow up Brief Note Current Diagnosis Diabetes Other Pertinent Diagnosis AMS, hypothermia, pneu, anemia , atherosclerotic cerebrovascular disease Current Diet Nepro 1.8 at 40 ml/hr Subjective/Other Information Nepro TF back in stock. Informed RN to resume Nepro TF . Nutrition Intervention Nutrition Support: Nepro at 40ml/hour. For hyponatremia flush 50 ml q4h, once resolved resume flush at 170 ml q4h Kcal 1,728 Protein (gm) 78 Fluid (mL) 698 Goal #1 Meet at least 75% of protein and energy needs via TF Follow-Up By: 10/30/20 Additional Comments F/u: TF change and tolerance
[2020-10-29] MEDS: MIDODRINE 5 MG TAB PO SCH ×3 (01:08→17:55)
--- NOTE | 2020-10-29 08:22 | Progress Note ---
Assessment and Plan Assessment and plan: #Atherosclerotic cerebrovascular disease #Altered mental status -Persistent -Neurology evaluated patient in the past -Continue Keppra, seizure precautions -Continue thiamine and folate #Paroxysmal atrial fibrillation #Heart failure reduced ejection fraction -EF 10-15%, recent echo EF 25-30% -maintain MAP greater than 65 -dobutamine discontinued -continue midodrine -Cardiology following -improving volume status with continued post dialysis #Acute hypoxic respiratory failure -Currently on mechanical ventilation (intubated 10/15) -CCM following, assistance appreciated -Continue stress dose steroids -Plan for tracheostomy if unable to wean from vent pending family discussion #BETSY -Nephrology following -continue HD #Acute on chronic anemia -1 packed red blood cells transfused 10/27 -Hemoglobin stable -maintain hemoglobin greater than 7 #Superficial venous thrombosis -Bilateral upper and lower extremity Doppler ultrasound show superficial venous thrombus of left basilic and cephalic veins #Thrombocytopenia -Resolved -likely due to critical illness #GI bleed -Continue protonix -GI consulted in the past, will hold off EGD/PEG given clinical condition Total Time Spent with Patient (Minutes): 20 minutes History Interval history: Patient on mechanical ventilation. Spontaneously opening and closing eyes. Hospitalist Physical - Physical exam Narrative exam: GENERAL: Intubated. HEENT: ETT/PEGGY in place. CHEST/LUNGS: Coarse breath sound bilaterally. HEART/CARDIOVASCULAR: irregularly irregular rhythm. No murmur, rubs or gallops appreciated. ABDOMEN: +BS. NT/ND. SKIN: Improved edema upper and lower extremities. NEURO: Unable to assess given patient mental status EXTREMITIES: 2+ edema PSYCH: Unable to assess. - Constitutional Vitals: Temp Pulse Resp BP Pulse Ox 97.3 F L 108 H 21 96/68 100 10/29/20 07:00 10/29/20 08:00 10/29/20 06:00 10/29/20 08:00 10/29/20 08:00 General appearance: Present: no acute distress, other (intubated and minimally responsive to tactile stimuli) HEART Score - HEART Score Troponin: Troponin T < 0.010 ng/mL (0.00-0.029) 10/02/20 23:17 Results - Labs CBC & Chem 7: 10/29/20 09:21 10/29/20 08:19 Labs: Laboratory Last Values WBC 12.2 K/mm3 (4.5-11.0) H 10/28/20 04:30 RBC 3.07 M/mm3 (3.65-5.03) L 10/28/20 04:30 Hgb 7.8 gm/dl (11.8-15.2) L 10/28/20 04:30 Hct 24.3 % (35.5-45.6) L 10/28/20 04:30 MCV 79 fl (84-94) L 10/28/20 04:30 MCH 25 pg (28-32) L 10/28/20 04:30 MCHC 32 % (32-34) 10/28/20 04:30 RDW 29.5 % (13.2-15.2) H 10/28/20 04:30 Plt Count 211 K/mm3 (140-440) 10/28/20 04:30 Lymph % (Auto) Hearing Aid Technician 10/10/20 10:58 [place] % (Auto) 8.3 % (0.0-7.3) H 10/15/20 05:50 Eos % (Auto) 0.3 % (0.0-4.3) 10/15/20 05:50 Baso % (Auto) Hearing Aid Technician 10/10/20 10:58 Lymph # (Auto) Hearing Aid Technician 10/10/20 10:58 [place] # (Auto) 1.3 K/mm3 (0.0-0.8) H 10/15/20 05:50 Eos # (Auto) 0.0 K/mm3 (0.0-0.4) 10/15/20 05:50 Baso # (Auto) 0.1 K/mm3 (0.0-0.1) 10/15/20 05:50 Add Manual Diff Complete 10/23/20 05:35 Total Counted 100 10/23/20 05:35 Seg Neutrophils % Hearing Aid Technician 10/21/20 Unknown Seg Neuts % (Manual) 83.0 % (40.0-70.0) H 10/23/20 05:35 Band Neutrophils % 5.0 % 10/23/20 05:35 Lymphocytes % (Manual) 9.0 % (13.4-35.0) L 10/23/20 05:35 Reactive Lymphs % (Man) 1.0 % 10/23/20 05:35 Monocytes % (Manual) 1.0 % (0.0-7.3) 10/23/20 05:35 Eosinophils % (Manual) 1.0 % (0.0-4.3) 10/23/20 05:35 Basophils % (Manual) 2.0 % (0.0-1.8) H 10/10/20 10:58 Metamyelocytes % 11.0 % 10/17/20 04:49 Myelocytes % 7.0 % 10/17/20 04:49 Nucleated RBC % 3.0 % (0.0-0.9) H 10/23/20 05:35 Seg Neutrophils # 13.2 K/mm3 (1.8-7.7) H 10/15/20 05:50 Seg Neutrophils # Man 6.1 K/mm3 (1.8-7.7) 10/23/20 05:35 Band Neutrophils # 0.4 K/mm3 10/23/20 05:35 Lymphocytes # (Manual) 0.7 K/mm3 (1.2-5.4) L 10/23/20 05:35 Abs React Lymphs (Man) 0.1 K/mm3 10/23/20 05:35 Monocytes # (Manual) 0.1 K/mm3 (0.0-0.8) 10/23/20 05:35 Eosinophils # (Manual) 0.1 K/mm3 (0.0-0.4) 10/23/20 05:35 Basophils # (Manual) 0.0 K/mm3 (0.0-0.1) 10/23/20 05:35 Metamyelocytes # 0.0 K/mm3 10/23/20 05:35 Myelocytes # 0.0 K/mm3 10/23/20 05:35 Promyelocytes # 0.0 K/mm3 10/23/20 05:35 Blast Cells # 0.0 K/mm3 10/23/20 05:35 WBC Morphology Not Reportable 10/23/20 05:35 Hypersegmented Neuts Not Reportable 10/23/20 05:35 Hyposegmented Neuts Not Reportable 10/23/20 05:35 Hypogranular Neuts Not Reportable 10/23/20 05:35 Smudge Cells Not Reportable 10/23/20 05:35 Toxic Granulation 1+ 10/23/20 05:35 Toxic Vacuolation 1+ 10/23/20 05:35 Dohle Bodies 1+ 10/23/20 05:35 Pelger-Huet Anomaly Not Reportable 10/23/20 05:35 Andrés Rods Not Reportable 10/23/20 05:35 Platelet Estimate Consistent w auto 10/23/20 05:35 Clumped Platelets Not Reportable 10/23/20 05:35 Plt Clumps, EDTA Not Reportable 10/23/20 05:35 Large Platelets Not Reportable 10/23/20 05:35 Giant Platelets Not Reportable 10/23/20 05:35 Platelet Satelliting Not Reportable 10/23/20 05:35 Plt Morphology Comment Not Reportable 10/23/20 05:35 RBC Morphology Not Reportable 10/23/20 05:35 Dimorphic RBCs Not Reportable 10/23/20 05:35 Polychromasia 1+ 10/23/20 05:35 Hypochromasia 2+ 10/23/20 05:35 Poikilocytosis 2+ 10/23/20 05:35 Anisocytosis 3+ 10/23/20 05:35 Microcytosis Not Reportable 10/23/20 05:35 Macrocytosis Not Reportable 10/23/20 05:35 Spherocytes 1+ 10/23/20 05:35 Pappenheimer Bodies Not Reportable 10/23/20 05:35 Sickle Cells Not Reportable 10/23/20 05:35 Target Cells 1+ 10/23/20 05:35 Tear Drop Cells Not Reportable 10/23/20 05:35 Ovalocytes Not Reportable 10/23/20 05:35 Helmet Cells Not Reportable 10/23/20 05:35 [place] Bodies Not Reportable 10/23/20 05:35 [place] Rings Not Reportable 10/23/20 05:35 [place] Cells Not Reportable 10/23/20 05:35 Bite Cells Not Reportable 10/23/20 05:35 Crenated Cell Not Reportable 10/23/20 05:35 Elliptocytes Not Reportable 10/23/20 05:35 Acanthocytes (Spur) 1+ 10/23/20 05:35 Rouleaux Not Reportable 10/23/20 05:35 Hemoglobin C Crystals Not Reportable 10/23/20 05:35 Schistocytes Not Reportable 10/23/20 05:35 Malaria parasites Not Reportable 10/23/20 05:35 Dereck Bodies Not Reportable 10/23/20 05:35 Hem Pathologist Commnt No 10/23/20 05:35 PT 20.4 Sec. (12.2-14.9) H 10/24/20 05:27 INR 1.70 (0.87-1.13) H 10/24/20 05:27 APTT 61.4 Sec. (24.2-36.6) H* 10/21/20 Unknown Thrombin Time 17.8 Sec. (15.1-19.6) 10/02/20 23:17 Fibrinogen 482 mg/dl (211-480) H 10/21/20 Unknown D-Dimer 1992.93 ng/mlDDU (0-234) H 10/21/20 Unknown ABG pH 7.478 (7.320-7.450) H 10/25/20 15:15 POC ABG pCO2 39.3 mmHg (32.0-48.0) 10/25/20 15:15 POC ABG pO2 39.0 mmHg (83-108) L 10/25/20 15:15 POC ABG HCO3 28.5 10/25/20 15:15 ABG O2 Saturation 73.5 (0-100) 10/25/20 15:15 POC ABG Base Excess 4.6 10/25/20 15:15 ABG Hemoglobin 7.7 (12.0-17.5) L 10/25/20 15:15 ABG Oxyhemoglobin 72.9 (94-98) L 10/25/20 15:15 ABG Methemoglobin 0.3 (0.0-1.5) 10/25/20 15:15 ABG Sodium 133.3 mmol/L (136.0-145.0) L 10/25/20 15:15 ABG Potassium 3.4 mmol/L (3.40-4.50) 10/25/20 15:15 ABG Chloride 102.0 mmol/L (98-107) 10/25/20 15:15 ABG Glucose 189 mg/dL (65-95) H 10/25/20 15:15 Carboxyhemoglobin 0.5 (0.5-1.5) 10/25/20 15:15 FiO2 % 30.0 10/25/20 15:15 Sodium 139 mmol/L (137-145) 10/28/20 04:30 Potassium 3.5 mmol/L (3.6-5.0) L 10/28/20 04:30 Chloride 98.3 mmol/L (98-107) 10/28/20 04:30 Carbon Dioxide 30 mmol/L (22-30) 10/28/20 04:30 Anion Gap 14 mmol/L 10/28/20 04:30 BUN 33 mg/dL (9-20) H 10/28/20 04:30 Creatinine 2.2 mg/dL (0.8-1.3) H 10/28/20 04:30 Estimated GFR 35 ml/min 10/28/20 04:30 BUN/Creatinine Ratio 15 % 10/28/20 04:30 Glucose 97 mg/dL (75-100) 10/28/20 04:30 POC Glucose 109 mg/dL (70-105) H 10/29/20 05:32 Hemoglobin A1c 5.2 % (4-6) 10/03/20 05:57 Osmolality 267 Mosm/kg 10/07/20 13:54 Lactic Acid 1.50 mmol/L (0.7-2.0) 10/03/20 04:43 Calcium 8.6 mg/dL (8.4-10.2) 10/28/20 04:30 Phosphorus 2.80 mg/dL (2.5-4.5) 10/23/20 05:35 Magnesium 2.10 mg/dL (1.7-2.3) 10/23/20 05:35 Iron 42 ug/dL (49-181) L 10/03/20 05:57 TIBC 305 mcg/dL (250-450) 10/03/20 05:57 Total Bilirubin 0.80 mg/dL (0.1-1.2) 10/24/20 05:27 Direct Bilirubin 0.9 mg/dL (0-0.2) H 10/19/20 04:51 Indirect Bilirubin 0.6 mg/dL 10/19/20 04:51 AST 54 units/L (5-40) H 10/24/20 05:27 ALT 54 units/L (7-56) 10/24/20 05:27 Alkaline Phosphatase 316 units/L (35-129) H 10/24/20 05:27 Ammonia 36.0 umol/L (25-60) 10/24/20 05:27 Total Creatine Kinase 88 units/L (55-170) 10/02/20 23:17 CK-MB (CK-2) 7.5 ng/mL (0.0-4.0) H 10/02/20 23:17 CK-MB (CK-2) Rel Index 8.5 (0-4) H 10/02/20 23:17 Troponin T < 0.010 ng/mL (0.00-0.029) 10/02/20 23:17 Total Protein 5.1 g/dL (6.3-8.2) L 10/24/20 05:27 Albumin 1.7 g/dL (3.9-5) L 10/24/20 05:27 Albumin/Globulin Ratio 0.5 % 10/24/20 05:27 Lipase 17 units/L (13-60) 10/16/20 22:58 Procalcitonin 0.10 ng/mL (<0.15) 10/10/20 10:58 TSH 2.130 mlU/mL (0.270-4.200) 10/07/20 13:54 Total Cortisol 17.4 mcg/dL () 10/09/20 02:46 Arterial Blood Glucose 189 mg/dL (65-95) H 10/25/20 15:15 Arterial Blood Ionized Calcium 4.4 mg/dL (4.6-5.3) L 10/25/20 15:15 Urine Eosinophils None seen (None Seen) 10/14/20 Unknown Urine Osmolality 223 Mosm/kg 10/07/20 Unknown Urine Creatinine 144.2 mg/dL (0.1-20.0) H 10/14/20 Unknown Protein/Creatinin Ratio 0.67 10/14/20 Unknown Urine Sodium 10 mmol/L 10/14/20 Unknown Urine Total Protein 97 mg/dL (5-11.8) H 10/14/20 Unknown Salicylates < 0.3 mg/dL (2.8-20.0) L 10/02/20 23:17 Acetaminophen 5.0 ug/mL (10.0-30.0) L 10/02/20 23:17 Plasma/Serum Alcohol < 0.01 % (0-0.07) 10/02/20 23:17 Coronavirus (PCR) Negative (Negative) 10/14/20 08:00 Hepatitis A IgM Ab Non-reactive (NonReactive) 10/24/20 15:28 Hep Bs Antigen Nonreactive (Negative) 10/24/20 15:28 Hep B Core IgM Ab Non-reactive (NonReactive) 10/24/20 15:28 Hepatitis C Antibody Non-reactive (NonReactive) 10/24/20 15:28 Blood Type O POSITIVE 10/27/20 12:50 Antibody Screen Negative 10/27/20 12:50 Crossmatch See Detail 10/27/20 12:50 Jackson/IV: Voiding Method Indwelling Catheter Active Medications - Current Medications Current Medications: Generic Name Dose Route Start Last Admin Trade Name Freq PRN Reason Stop Dose Admin Acetaminophen 650 mg 10/03/20 02:10 10/06/20 15:28 Acetaminophen 325 Mg Tab PO 650 mg Q4H PRN Administration Pain MILD(1-3)/Fever >100.5/ROMERO Al Hydrox/Mg Hydrox/Simethicone 30 ml 10/03/20 02:10 Alum-Mag Hydroxide-Simethicone [id number]/5ml Oral Liqd 30 Ml PO Q4H PRN Indigestion Lipase/Protease/Amylase 1 each 10/03/20 16:51 Lipase 10,500/Protease 25,000/Amylase 43,750 (Units) Dr Reis FEEDTUBE PRN PRN For Clogged Feeding Tube Dextrose 50 ml 10/16/20 12:42 10/21/20 17:39 Dextrose 50% In Water (25gm) 50 Ml Syringe IV 50 ml Q30MIN PRN Administration Hypoglycemia Protocol Fentanyl 50 mcg 10/22/20 10:00 10/28/20 08:56 Fentanyl 100 Mcg/2 Ml Inj IV 50 mcg Q4HR PRN Administration Pain , Severe (7-10) Ferrous Sulfate 308 mg 10/16/20 10:00 10/28/20 12:28 Ferrous Sulfate 308 Mg (62mg Elemental Iron) / 7 Ml Elixir FEEDTUBE 308 mg DAILY JOSE Administration Folic Acid 1 mg 10/03/20 10:00 10/28/20 09:00 Folic Acid 1 Mg Tab PO 1 mg QDAY JOSE Administration Levetiracetam 250 mg/ Dextrose 102.5 mls @ 400 mls/hr 10/10/20 22:00 10/28/20 22:27 IV 400 mls/hr Q12HR JOSE Administration NORepinephrine/NS 8 MG-250 ML 8 mg in 250 mls @ 3.75 mls/hr 10/16/20 19:00 10/21/20 16:56 Norepinephrine/Ns 8 Mg-250 Ml (Double Conc) IV 0 mcg/min TITRATE JOSE 0 mls/hr Titration Protocol 2 MCG/MIN Magnesium Hydroxide 30 ml 10/03/20 02:10 Magnesium Hydroxide (Mom) Oral Liqd Udc PO Q4H PRN Constipation Midodrine 10 mg 10/24/20 18:00 10/29/20 01:08 Midodrine 5 Mg Tab PO 10 mg Q8H JOSE Administration Pantoprazole Sodium 40 mg 10/04/20 15:00 10/28/20 09:00 Pantoprazole 40 Mg Inj IV 40 mg QDAY JOSE Administration Promethazine HCl 25 mg 10/03/20 02:10 Promethazine 25 Mg Rect Supp DC Q6H PRN N/V IF NPO AND NO IV ACCESS Senna 8.6 mg 10/03/20 02:10 Sennosides 8.6 Mg Tab PO Q12HR PRN Constipation Simple Syrup 15 ml 10/03/20 16:51 10/19/20 02:08 Simple Syrup 15 Ml FEEDTUBE 15 ml PRN PRN Administration Hypoglycemia Simple Syrup 30 ml 10/03/20 16:51 10/16/20 22:02 Simple Syrup 15 Ml FEEDTUBE 30 ml PRN PRN Administration Hypoglycemia Sodium Bicarbonate 325 mg 10/03/20 16:51 Sodium Bicarbonate 325 Mg Tab FEEDTUBE PRN PRN For Clogged Feeding Tube Nutrition/Malnutrition Assess - Dietary Evaluation Nutrition/Malnutrition Findings: Nutrition Notes Start: 10/03/20 08:51 Freq: Status: Active Protocol: Document 10/26/20 12:33 (Rec: 10/26/20 12:38 [email or web address]) Nutrition Notes Initial or Follow up Brief Note Current Diagnosis Diabetes Other Pertinent Diagnosis AMS, hypothermia, pneu, anemia , atherosclerotic cerebrovascular disease Current Diet Nepro 1.8 at 40 ml/hr Subjective/Other Information Nepro TF back in stock. Informed RN to resume Nepro TF . Nutrition Intervention Nutrition Support: Nepro at 40ml/hour. For hyponatremia flush 50 ml q4h, once resolved resume flush at 170 ml q4h Kcal 1,728 Protein (gm) 78 Fluid (mL) 698 Goal #1 Meet at least 75% of protein and energy needs via TF Follow-Up By: 10/30/20 Additional Comments F/u: TF change and tolerance
[2020-10-29] MEDS: MULTIVITAMIN / MINERAL ORAL LIQUID 15 ML PO SCH (09:31)
[2020-10-29] MEDS: FOLIC ACID 1 MG TAB PO SCH (09:31)
[2020-10-29] MEDS: FERROUS SULFATE 308 MG (62mg Elemental Iron) / 7 ML ELIXIR FEEDTUBE SCH (09:31)
[2020-10-29] MEDS: PANTOPRAZOLE 40 MG INJ IV SCH (09:31)
[2020-10-29] MEDS: levETIRAcetam 250 MG in DEXTROSE 5% IN WATER 100 ML IV SCH ×2 (09:42→21:28)
[2020-10-29 10:02] LABS: Hematocrit 23.8 % (35.5-45.6); Hemoglobin 7.7 gm/dl (11.8-15.2); Mean Corpuscular HGB Conc 32 % (32-34); Mean Corpuscular Volume 78 fl (84-94); Platelet Count 291 K/mm3 (140-440); Red Blood Count 3.03 M/mm3 (3.65-5.03)
[2020-10-29 10:32] LABS: Red Cell Distribution Width 30.1 % (13.2-15.2)
--- NOTE | 2020-10-29 11:03 | Progress Note ---
Assessment and Plan Acute encephalopathy Hyponatremia Hypothermia, resolved Pulmonary infiltrate in right lung on CXR Atherosclerotic cerebrovascular disease Severe anemia -possible GI bleed Severe protein-calorie malnutrition Acute Renal Failure Hypokalemia Plan: -no indication for HD today -Renal ultrasound- no hydronephrosis -Avoid nephrotoxic agents -Obtain daily weights -Monitor I/O's daily -Monitor renal function closely Subjective Date of service: 10/29/20 Principal diagnosis: Ac hypoxemic resp failure; Pneumonia; BETSY; Ac. encephalopathy Interval history: intubated and sedated. cont to to tolerate dialysis Objective - Vital Signs Vital signs: Vital Signs - 12hr 10/28/20 10/28/20 10/28/20 23:23 23:31 23:49 Temperature 98.4 F Pulse Rate 109 H 105 H Pulse Rate [ From Monitor] Respiratory 20 Rate Blood Pressure 108/57 111/60 O2 Sat by Pulse 97 92 Oximetry 10/29/20 10/29/20 10/29/20 00:00 00:30 01:00 Temperature Pulse Rate 115 H 92 H 97 H Pulse Rate [ From Monitor] Respiratory 20 20 20 Rate Blood Pressure 103/67 102/66 108/67 O2 Sat by Pulse 92 93 91 Oximetry 10/29/20 10/29/20 10/29/20 01:16 01:30 02:00 Temperature Pulse Rate 90 102 H 105 H Pulse Rate [ From Monitor] Respiratory 16 20 Rate Blood Pressure 109/77 116/71 O2 Sat by Pulse 93 95 Oximetry 10/29/20 10/29/20 10/29/20 02:30 03:00 03:30 Temperature Pulse Rate 108 H 100 H 90 Pulse Rate [ From Monitor] Respiratory 21 18 21 Rate Blood Pressure 128/95 119/63 105/72 O2 Sat by Pulse 93 92 95 Oximetry 10/29/20 10/29/20 10/29/20 03:41 04:00 04:30 Temperature 97.5 F L Pulse Rate 103 H 109 H 101 H Pulse Rate [ From Monitor] Respiratory 18 22 Rate Blood Pressure 119/63 108/70 101/74 O2 Sat by Pulse 93 93 90 Oximetry 10/29/20 10/29/20 10/29/20 05:00 05:31 06:00 Temperature Pulse Rate 90 131 H 100 H Pulse Rate [ From Monitor] Respiratory 20 16 21 Rate Blood Pressure 111/73 116/68 107/66 O2 Sat by Pulse 93 92 90 Oximetry 10/29/20 10/29/20 10/29/20 06:30 07:00 07:01 Temperature 97.3 F L Pulse Rate 113 H 90 Pulse Rate [ From Monitor] Respiratory 20 25 H Rate Blood Pressure 114/66 105/65 O2 Sat by Pulse 91 88 Oximetry 10/29/20 10/29/20 10/29/20 07:30 08:00 08:01 Temperature Pulse Rate 133 H 105 H 105 H Pulse Rate [ 105 H From Monitor] Respiratory 31 H 30 H 30 H Rate Blood Pressure 105/65 96/68 96/68 O2 Sat by Pulse 90 98 98 Oximetry 10/29/20 10/29/20 10/29/20 08:30 09:00 09:30 Temperature Pulse Rate 102 H 99 H 103 H Pulse Rate [ From Monitor] Respiratory 29 H 29 H 28 H Rate Blood Pressure 100/61 111/72 110/64 O2 Sat by Pulse Oximetry 10/29/20 10:01 Temperature Pulse Rate 117 H Pulse Rate [ From Monitor] Respiratory 19 Rate Blood Pressure 122/80 O2 Sat by Pulse 98 Oximetry - Lab 10/29/20 09:21 10/28/20 04:30 Most recent lab results ABG pH 7.478 (7.320-7.450) H 10/25/20 15:15 ABG O2 Saturation 73.5 (0-100) 10/25/20 15:15 Calcium 8.6 mg/dL (8.4-10.2) 10/28/20 04:30 Phosphorus 2.80 mg/dL (2.5-4.5) 10/23/20 05:35 Magnesium 2.10 mg/dL (1.7-2.3) 10/23/20 05:35 Urine Creatinine 144.2 mg/dL (0.1-20.0) H 10/14/20 Unknown Urine Sodium 10 mmol/L 10/14/20 Unknown Urine Total Protein 97 mg/dL (5-11.8) H 10/14/20 Unknown Medications & Allergies - Medications Allergies/Adverse Reactions: Allergies No Known Allergies Allergy (Unverified 10/03/20 12:27) Home Medications: Home Medications Medication Instructions Recorded Confirmed Last Taken Type Unobtainable 10/10/20 10/10/20 Unknown History Active Medications: Generic Name Dose Route Start Last Admin Trade Name Freq PRN Reason Stop Dose Admin Acetaminophen 650 mg 10/03/20 02:10 10/06/20 15:28 Acetaminophen 325 Mg Tab PO 650 mg Q4H PRN Administration Pain MILD(1-3)/Fever >100.5/ROMERO Al Hydrox/Mg Hydrox/Simethicone 30 ml 10/03/20 02:10 Alum-Mag Hydroxide-Simethicone [id number]/5ml Oral Liqd 30 Ml PO Q4H PRN Indigestion Lipase/Protease/Amylase 1 each 10/03/20 16:51 Lipase 10,500/Protease 25,000/Amylase 43,750 (Units) Dr Reis FEEDTUBE PRN PRN For Clogged Feeding Tube Dextrose 50 ml 10/16/20 12:42 10/21/20 17:39 Dextrose 50% In Water (25gm) 50 Ml Syringe IV 50 ml Q30MIN PRN Administration Hypoglycemia Protocol Fentanyl 50 mcg 10/22/20 10:00 10/28/20 08:56 Fentanyl 100 Mcg/2 Ml Inj IV 50 mcg Q4HR PRN Administration Pain , Severe (7-10) Ferrous Sulfate 308 mg 10/16/20 10:00 10/29/20 09:31 Ferrous Sulfate 308 Mg (62mg Elemental Iron) / 7 Ml Elixir FEEDTUBE 308 mg DAILY JOSE Administration Folic Acid 1 mg 10/03/20 10:00 10/29/20 09:31 Folic Acid 1 Mg Tab PO 1 mg QDAY JOSE Administration Levetiracetam 250 mg/ Dextrose 102.5 mls @ 400 mls/hr 10/10/20 22:00 10/29/20 09:42 IV 400 mls/hr Q12HR JOSE Administration NORepinephrine/NS 8 MG-250 ML 8 mg in 250 mls @ 3.75 mls/hr 10/16/20 19:00 10/21/20 16:56 Norepinephrine/Ns 8 Mg-250 Ml (Double Conc) IV 0 mcg/min TITRATE JOSE 0 mls/hr Titration Protocol 2 MCG/MIN Magnesium Hydroxide 30 ml 10/03/20 02:10 Magnesium Hydroxide (Mom) Oral Liqd Udc PO Q4H PRN Constipation Midodrine 10 mg 10/24/20 18:00 10/29/20 09:31 Midodrine 5 Mg Tab PO 10 mg Q8H JOSE Administration Pantoprazole Sodium 40 mg 10/04/20 15:00 10/29/20 09:31 Pantoprazole 40 Mg Inj IV 40 mg QDAY JOSE Administration Promethazine HCl 25 mg 10/03/20 02:10 Promethazine 25 Mg Rect Supp RI Q6H PRN N/V IF NPO AND NO IV ACCESS Senna 8.6 mg 10/03/20 02:10 Sennosides 8.6 Mg Tab PO Q12HR PRN Constipation Simple Syrup 15 ml 10/03/20 16:51 10/19/20 02:08 Simple Syrup 15 Ml FEEDTUBE 15 ml PRN PRN Administration Hypoglycemia Simple Syrup 30 ml 10/03/20 16:51 10/16/20 22:02 Simple Syrup 15 Ml FEEDTUBE 30 ml PRN PRN Administration Hypoglycemia Sodium Bicarbonate 325 mg 10/03/20 16:51 Sodium Bicarbonate 325 Mg Tab FEEDTUBE PRN PRN For Clogged Feeding Tube
[2020-10-29 11:04] LABS: Calcium 8.2 mg/dL (8.4-10.2)
--- NOTE | 2020-10-29 14:19 | Progress Note ---
Assessment and Plan Acute hypoxemic respiratory failure Bilateral pneumonia Bilateral pleural effusions Bilateral pulmonary edema Acute kidney injury Acute encephalopathy Severe protein calorie malnutrition Oropharyngeal dysphagia Anemia that is microcytic Oropharyngeal dysphagia Thrombocytopenia, resolved -Continue with supportive HD -Continue to monitor off antibiotics, trend WCC and temperature curve -Daily SBT as tolerated -Start Scopolamine and Robinul for secretion management -CXR, ABG as clinically indicated -Start VTE prophylaxis dosing, platelets have recovered -Discuss with family for trach and PEG - VAP bundle addressed, aspiration precautions (HOB > 40 degrees) -Titrate supplemental oxygen to keep SpO2 88-90% -Keep negative fluid balance as tolerated by hemodynamics and renal function to help facilitate weaning trials -HD/UF per Renal, - continue glycemic control for target BG 140-180 mg while critically ill; avoid hypoglycemia - bronchodilators with pulmonary hygiene per RT - avoid nephrotoxins, renally dose all medications - prn analgesia per pain score - Maintenance of sleep-wake cycle, avoid delirium - supportive transfusions for serum Hgb < 7.0g/dl -Enteric nutritional support at goal -Stress ulcer prophylaxis-Pantoprazole - continue mobility , off loading, frequent turning per facility protocols for pressure ulcer prevention - Monitor hemodynamics closely, continue with Midodrine fro blood pressure torres pport - continue other care per attending / other consultants COVID SPECIFIC INTERVENTIONS -COVID-19 test negative CONDITION: CRITICAL PROGNOSIS: GUARDED CODE STATUS: FULL CODE The high probability of a clinically significant, sudden or life-threatening deterioration of the [respiratory, cardiovascular, & neurologic] system(s) required my full and direct attention, intervention and personal management. The aggregate critical care time was [33] minutes without overlap. Time includes spent on; [x] Data Review and interpretation [x] Patient assessment and monitoring of vital signs [x] Documentation [x] Medication orders and management Subjective Date of service: 10/29/20 Principal diagnosis: Ac hypoxemic resp failure; Pneumonia; BETSY; Ac. encephalopathy Interval history: Patient is seen today for: Acute hypoxemic respiratory failure; Pneumonia; Pleur al effusions; BETSY; Acute encephalopathy; Severe protein calorie malnutrition Seen and examined at bedside; 24hour events reviewed; nursing and respiratory care staff consulted; no adverse overnight events reported to me; resting in bed; remains on MVS- low settings; off all vasopressors but remains on Midodrine; Remains off sedation,s/p HD, UF of 1L. More awake and alert, remains afebrile, copious oral secretions, loose stools MVS: ETT 7.5 at 24at the lip ACVC 20/500/+8/30% Objective Vital Signs - 12hr 10/29/20 10/29/20 10/29/20 02:30 03:00 03:30 Temperature Pulse Rate 108 H 100 H 90 Pulse Rate [ From Monitor] Respiratory 21 18 21 Rate Blood Pressure 128/95 119/63 105/72 O2 Sat by Pulse 93 92 95 Oximetry 10/29/20 10/29/20 10/29/20 03:41 04:00 04:30 Temperature 97.5 F L Pulse Rate 103 H 109 H 101 H Pulse Rate [ From Monitor] Respiratory 18 22 Rate Blood Pressure 119/63 108/70 101/74 O2 Sat by Pulse 93 93 90 Oximetry 10/29/20 10/29/20 10/29/20 05:00 05:31 06:00 Temperature Pulse Rate 90 131 H 100 H Pulse Rate [ From Monitor] Respiratory 20 16 21 Rate Blood Pressure 111/73 116/68 107/66 O2 Sat by Pulse 93 92 90 Oximetry 10/29/20 10/29/20 10/29/20 06:30 07:00 07:01 Temperature 97.3 F L Pulse Rate 113 H 90 Pulse Rate [ From Monitor] Respiratory 20 25 H Rate Blood Pressure 114/66 105/65 O2 Sat by Pulse 91 88 Oximetry 10/29/20 10/29/20 10/29/20 07:30 08:00 08:01 Temperature Pulse Rate 133 H 105 H 105 H Pulse Rate [ 105 H From Monitor] Respiratory 31 H 30 H 30 H Rate Blood Pressure 105/65 96/68 96/68 O2 Sat by Pulse 90 98 98 Oximetry 10/29/20 10/29/20 10/29/20 08:30 09:00 09:30 Temperature Pulse Rate 102 H 99 H 103 H Pulse Rate [ From Monitor] Respiratory 29 H 29 H 28 H Rate Blood Pressure 100/61 111/72 110/64 O2 Sat by Pulse Oximetry 10/29/20 10/29/20 10/29/20 10:01 10:30 11:00 Temperature Pulse Rate 117 H 95 H 106 H Pulse Rate [ From Monitor] Respiratory 19 22 16 Rate Blood Pressure 122/80 109/67 109/67 O2 Sat by Pulse 98 99 98 Oximetry 10/29/20 10/29/20 10/29/20 11:30 11:42 11:45 Temperature 97.2 F L Pulse Rate 92 H 95 H Pulse Rate [ From Monitor] Respiratory 21 Rate Blood Pressure 119/75 125/77 O2 Sat by Pulse 92 98 Oximetry 10/29/20 10/29/20 12:00 12:30 Temperature Pulse Rate 109 H 98 H Pulse Rate [ 109 H From Monitor] Respiratory 23 22 Rate Blood Pressure 123/78 125/77 O2 Sat by Pulse 93 97 Oximetry Constitutional: no acute distress, other (elderly and chronically ill looking male with mildly increased respiratory effort at rest on MVS) Eyes: non-icteric ENT: oropharynx dry, other (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, ) Neck: supple, no lymphadenopathy, no JVD, other (RIJ Vascath) Effort: mildly labored Ascultation: Bilateral: diminished breath sounds, rhonchi Percussion: Bilateral: not dull Cardiovascular: irregular rhythm (irregularly irregular), other (S1,S2) Gastrointestinal: normoactive bowel sounds, soft, non-tender, non-distended, other (Jackson catheter) Integumentary: normal Extremities: no cyanosis, pulses normal, no ischemia or petechiae, edema (2+) Neurologic: pupils equal and round Psychiatric: mood appropriate, affect normal CBC and BMP: 11/01/20 Unknown 11/01/20 Unknown ABG, PT/INR, D-dimer: ABG ABG pH 7.478 (7.320-7.450) H 10/25/20 15:15 POC ABG pCO2 39.3 mmHg (32.0-48.0) 10/25/20 15:15 POC ABG pO2 39.0 mmHg (83-108) L 10/25/20 15:15 POC ABG HCO3 28.5 10/25/20 15:15 ABG O2 Saturation 73.5 (0-100) 10/25/20 15:15 PT/INR, D-dimer PT 20.4 Sec. (12.2-14.9) H 10/24/20 05:27 INR 1.70 (0.87-1.13) H 10/24/20 05:27 D-Dimer 1992.93 ng/mlDDU (0-234) H 10/21/20 Unknown Abnormal lab findings: Abnormal Labs 10/02/20 10/02/20 10/02/20 23:17 23:17 23:17 WBC RBC 3.31 L Hgb 6.7 L Hct 21.8 L MCV 66 L MCH 20 L MCHC 31 L RDW 31.7 H Plt Count [place] % (Auto) [place] # (Auto) Seg Neutrophils % Seg Neuts % (Manual) 79.0 H Lymphocytes % (Manual) 11.0 L Monocytes % (Manual) 10.0 H Basophils % (Manual) Nucleated RBC % Seg Neutrophils # Seg Neutrophils # Man Lymphocytes # (Manual) 0.9 L Monocytes # (Manual) Basophils # (Manual) PT 20.8 H INR 1.74 H APTT 57.6 H Fibrinogen D-Dimer ABG pH POC ABG pCO2 POC ABG pO2 ABG Hemoglobin ABG Oxyhemoglobin ABG Sodium ABG Potassium ABG Chloride ABG Glucose Sodium Potassium Chloride Carbon Dioxide BUN Creatinine Glucose 42 L POC Glucose Lactic Acid Calcium Magnesium Iron Total Bilirubin Direct Bilirubin AST ALT Alkaline Phosphatase Ammonia CK-MB (CK-2) 7.5 H CK-MB (CK-2) Rel Index 8.5 H Total Protein Albumin 2.9 L Arterial Blood Glucose Arterial Blood Ionized Calcium Urine Creatinine Urine Total Protein Salicylates Acetaminophen Crossmatch 10/02/20 10/02/20 10/02/20 23:17 23:17 23:17 WBC RBC Hgb Hct MCV MCH MCHC RDW Plt Count [place] % (Auto) [place] # (Auto) Seg Neutrophils % Seg Neuts % (Manual) Lymphocytes % (Manual) Monocytes % (Manual) Basophils % (Manual) Nucleated RBC % Seg Neutrophils # Seg Neutrophils # Man Lymphocytes # (Manual) Monocytes # (Manual) Basophils # (Manual) PT INR APTT Fibrinogen D-Dimer ABG pH POC ABG pCO2 POC ABG pO2 ABG Hemoglobin ABG Oxyhemoglobin ABG Sodium ABG Potassium ABG Chloride ABG Glucose Sodium Potassium Chloride Carbon Dioxide BUN Creatinine Glucose POC Glucose Lactic Acid 2.20 H* Calcium Magnesium Iron Total Bilirubin Direct Bilirubin AST ALT Alkaline Phosphatase Ammonia 22.0 L CK-MB (CK-2) CK-MB (CK-2) Rel Index Total Protein Albumin Arterial Blood Glucose Arterial Blood Ionized Calcium Urine Creatinine Urine Total Protein Salicylates < 0.3 L Acetaminophen Crossmatch 10/02/20 10/03/20 10/03/20 23:17 05:57 05:57 WBC RBC 2.66 L Hgb 5.3 L* Hct 17.8 L* MCV 67 L MCH 20 L MCHC 30 L RDW 32.1 H Plt Count [place] % (Auto) [place] # (Auto) Seg Neutrophils % Seg Neuts % (Manual) Lymphocytes % (Manual) 2.0 L Monocytes % (Manual) Basophils % (Manual) Nucleated RBC % 1.0 H Seg Neutrophils # Seg Neutrophils # Man 8.6 H Lymphocytes # (Manual) 0.2 L Monocytes # (Manual) Basophils # (Manual) PT INR APTT Fibrinogen D-Dimer ABG pH POC ABG pCO2 POC ABG pO2 ABG Hemoglobin ABG Oxyhemoglobin ABG Sodium ABG Potassium ABG Chloride ABG Glucose Sodium Potassium Chloride Carbon Dioxide BUN Creatinine Glucose POC Glucose Lactic Acid Calcium Magnesium Iron Total Bilirubin Direct Bilirubin AST ALT Alkaline Phosphatase Ammonia CK-MB (CK-2) CK-MB (CK-2) Rel Index Total Protein Albumin Arterial Blood Glucose Arterial Blood Ionized Calcium Urine Creatinine Urine Total Protein Salicylates Acetaminophen 5.0 L Crossmatch See Detail 10/03/20 10/03/20 10/03/20 05:57 05:57 06:00 WBC RBC Hgb Hct MCV MCH MCHC RDW Plt Count [place] % (Auto) [place] # (Auto) Seg Neutrophils % Seg Neuts % (Manual) Lymphocytes % (Manual) Monocytes % (Manual) Basophils % (Manual) Nucleated RBC % Seg Neutrophils # Seg Neutrophils # Man Lymphocytes # (Manual) Monocytes # (Manual) Basophils # (Manual) PT INR APTT Fibrinogen D-Dimer ABG pH POC ABG pCO2 POC ABG pO2 ABG Hemoglobin ABG Oxyhemoglobin ABG Sodium ABG Potassium ABG Chloride ABG Glucose Sodium Potassium Chloride Carbon Dioxide BUN Creatinine Glucose 52 L POC Glucose 31 L Lactic Acid Calcium Magnesium Iron 42 L Total Bilirubin Direct Bilirubin AST ALT Alkaline Phosphatase Ammonia CK-MB (CK-2) CK-MB (CK-2) Rel Index Total Protein 5.8 L Albumin 3.1 L Arterial Blood Glucose Arterial Blood Ionized Calcium Urine Creatinine Urine Total Protein Salicylates Acetaminophen Crossmatch 10/03/20 10/03/20 10/03/20 07:34 09:43 10:57 WBC RBC Hgb Hct MCV MCH MCHC RDW Plt Count [place] % (Auto) [place] # (Auto) Seg Neutrophils % Seg Neuts % (Manual) Lymphocytes % (Manual) Monocytes % (Manual) Basophils % (Manual) Nucleated RBC % Seg Neutrophils # Seg Neutrophils # Man Lymphocytes # (Manual) Monocytes # (Manual) Basophils # (Manual) PT INR APTT Fibrinogen D-Dimer ABG pH POC ABG pCO2 POC ABG pO2 ABG Hemoglobin ABG Oxyhemoglobin ABG Sodium ABG Potassium ABG Chloride ABG Glucose Sodium Potassium Chloride Carbon Dioxide BUN Creatinine Glucose POC Glucose 59 L 41 L 31 L Lactic Acid Calcium Magnesium Iron Total Bilirubin Direct Bilirubin AST ALT Alkaline Phosphatase Ammonia CK-MB (CK-2) CK-MB (CK-2) Rel Index Total Protein Albumin Arterial Blood Glucose Arterial Blood Ionized Calcium Urine Creatinine Urine Total Protein Salicylates Acetaminophen Crossmatch 10/03/20 10/03/20 10/03/20 11:21 12:00 12:14 WBC RBC Hgb Hct MCV MCH MCHC RDW Plt Count [place] % (Auto) [place] # (Auto) Seg Neutrophils % Seg Neuts % (Manual) Lymphocytes % (Manual) Monocytes % (Manual) Basophils % (Manual) Nucleated RBC % Seg Neutrophils # Seg Neutrophils # Man Lymphocytes # (Manual) Monocytes # (Manual) Basophils # (Manual) PT INR APTT Fibrinogen D-Dimer ABG pH POC ABG pCO2 POC ABG pO2 ABG Hemoglobin ABG Oxyhemoglobin ABG Sodium ABG Potassium ABG Chloride ABG Glucose Sodium Potassium Chloride Carbon Dioxide BUN Creatinine Glucose POC Glucose 62 L 26 L 140 H Lactic Acid Calcium Magnesium Iron Total Bilirubin Direct Bilirubin AST ALT Alkaline Phosphatase Ammonia CK-MB (CK-2) CK-MB (CK-2) Rel Index Total Protein Albumin Arterial Blood Glucose Arterial Blood Ionized Calcium Urine Creatinine Urine Total Protein Salicylates Acetaminophen Crossmatch 10/03/20 10/03/20 10/03/20 13:33 14:19 14:59 WBC RBC Hgb Hct MCV MCH MCHC RDW Plt Count [place] % (Auto) [place] # (Auto) Seg Neutrophils % Seg Neuts % (Manual) Lymphocytes % (Manual) Monocytes % (Manual) Basophils % (Manual) Nucleated RBC % Seg Neutrophils # Seg Neutrophils # Man Lymphocytes # (Manual) Monocytes # (Manual) Basophils # (Manual) PT INR APTT Fibrinogen D-Dimer ABG pH POC ABG pCO2 POC ABG pO2 ABG Hemoglobin ABG Oxyhemoglobin ABG Sodium ABG Potassium ABG Chloride ABG Glucose Sodium Potassium Chloride Carbon Dioxide BUN Creatinine Glucose POC Glucose 24 L 59 L 40 L Lactic Acid Calcium Magnesium Iron Total Bilirubin Direct Bilirubin AST ALT Alkaline Phosphatase Ammonia CK-MB (CK-2) CK-MB (CK-2) Rel Index Total Protein Albumin Arterial Blood Glucose Arterial Blood Ionized Calcium Urine Creatinine Urine Total Protein Salicylates Acetaminophen Crossmatch 10/03/20 10/03/20 10/03/20 15:26 15:57 16:35 WBC RBC Hgb Hct MCV MCH MCHC RDW Plt Count [place] % (Auto) [place] # (Auto) Seg Neutrophils % Seg Neuts % (Manual) Lymphocytes % (Manual) Monocytes % (Manual) Basophils % (Manual) Nucleated RBC % Seg Neutrophils # Seg Neutrophils # Man Lymphocytes # (Manual) Monocytes # (Manual) Basophils # (Manual) PT INR APTT Fibrinogen D-Dimer ABG pH POC ABG pCO2 POC ABG pO2 ABG Hemoglobin ABG Oxyhemoglobin ABG Sodium ABG Potassium ABG Chloride ABG Glucose Sodium Potassium Chloride Carbon Dioxide BUN Creatinine Glucose POC Glucose 54 L 45 L 42 L Lactic Acid Calcium Magnesium Iron Total Bilirubin Direct Bilirubin AST ALT Alkaline Phosphatase Ammonia CK-MB (CK-2) CK-MB (CK-2) Rel Index Total Protein Albumin Arterial Blood Glucose Arterial Blood Ionized Calcium Urine Creatinine Urine Total Protein Salicylates Acetaminophen Crossmatch 10/03/20 10/03/20 10/03/20 17:16 18:37 19:56 WBC RBC Hgb Hct MCV MCH MCHC RDW Plt Count [place] % (Auto) [place] # (Auto) Seg Neutrophils % Seg Neuts % (Manual) Lymphocytes % (Manual) Monocytes % (Manual) Basophils % (Manual) Nucleated RBC % Seg Neutrophils # Seg Neutrophils # Man Lymphocytes # (Manual) Monocytes # (Manual) Basophils # (Manual) PT INR APTT Fibrinogen D-Dimer ABG pH POC ABG pCO2 POC ABG pO2 ABG Hemoglobin ABG Oxyhemoglobin ABG Sodium ABG Potassium ABG Chloride ABG Glucose Sodium Potassium Chloride Carbon Dioxide BUN Creatinine Glucose POC Glucose 41 L 46 L 57 L Lactic Acid Calcium Magnesium Iron Total Bilirubin Direct Bilirubin AST ALT Alkaline Phosphatase Ammonia CK-MB (CK-2) CK-MB (CK-2) Rel Index Total Protein Albumin Arterial Blood Glucose Arterial Blood Ionized Calcium Urine Creatinine Urine Total Protein Salicylates Acetaminophen Crossmatch 10/03/20 10/04/20 10/04/20 21:32 01:04 01:11 WBC RBC Hgb 9.6 L D Hct 28.3 L D MCV MCH MCHC RDW Plt Count [place] % (Auto) [place] # (Auto) Seg Neutrophils % Seg Neuts % (Manual) Lymphocytes % (Manual) Monocytes % (Manual) Basophils % (Manual) Nucleated RBC % Seg Neutrophils # Seg Neutrophils # Man Lymphocytes # (Manual) Monocytes # (Manual) Basophils # (Manual) PT INR APTT Fibrinogen D-Dimer ABG pH POC ABG pCO2 POC ABG pO2 ABG Hemoglobin ABG Oxyhemoglobin ABG Sodium ABG Potassium ABG Chloride ABG Glucose Sodium Potassium Chloride Carbon Dioxide BUN Creatinine Glucose POC Glucose 65 L 51 L Lactic Acid Calcium Magnesium Iron Total Bilirubin Direct Bilirubin AST ALT Alkaline Phosphatase Ammonia CK-MB (CK-2) CK-MB (CK-2) Rel Index Total Protein Albumin Arterial Blood Glucose Arterial Blood Ionized Calcium Urine Creatinine Urine Total Protein Salicylates Acetaminophen Crossmatch 10/04/20 10/04/20 10/04/20 05:59 05:59 15:10 WBC 13.4 H RBC Hgb 9.9 L 10.1 L Hct 32.0 L 31.8 L MCV 76 L MCH 24 L MCHC 31 L RDW 31.3 H Plt Count [place] % (Auto) [place] # (Auto) Seg Neutrophils % Seg Neuts % (Manual) 86.0 H Lymphocytes % (Manual) 6.0 L Monocytes % (Manual) 8.0 H Basophils % (Manual) Nucleated RBC % 2.0 H Seg Neutrophils # Seg Neutrophils # Man 11.5 H Lymphocytes # (Manual) 0.8 L Monocytes # (Manual) 1.1 H Basophils # (Manual) PT INR APTT Fibrinogen D-Dimer ABG pH POC ABG pCO2 POC ABG pO2 ABG Hemoglobin ABG Oxyhemoglobin ABG Sodium ABG Potassium ABG Chloride ABG Glucose Sodium 136 L Potassium 3.5 L Chloride Carbon Dioxide 19 L D BUN Creatinine Glucose POC Glucose Lactic Acid Calcium Magnesium Iron Total Bilirubin Direct Bilirubin AST ALT Alkaline Phosphatase Ammonia CK-MB (CK-2) CK-MB (CK-2) Rel Index Total Protein Albumin 2.6 L Arterial Blood Glucose Arterial Blood Ionized Calcium Urine Creatinine Urine Total Protein Salicylates Acetaminophen Crossmatch 10/04/20 10/04/20 10/05/20 16:28 22:33 04:43 WBC RBC Hgb 10.5 L Hct 32.5 L MCV MCH MCHC RDW Plt Count [place] % (Auto) [place] # (Auto) Seg Neutrophils % Seg Neuts % (Manual) Lymphocytes % (Manual) Monocytes % (Manual) Basophils % (Manual) Nucleated RBC % Seg Neutrophils # Seg Neutrophils # Man Lymphocytes # (Manual) Monocytes # (Manual) Basophils # (Manual) PT INR APTT Fibrinogen D-Dimer ABG pH POC ABG pCO2 POC ABG pO2 ABG Hemoglobin ABG Oxyhemoglobin ABG Sodium ABG Potassium ABG Chloride ABG Glucose Sodium Potassium Chloride Carbon Dioxide BUN Creatinine Glucose POC Glucose 66 L 113 H Lactic Acid Calcium Magnesium Iron Total Bilirubin Direct Bilirubin AST ALT Alkaline Phosphatase Ammonia CK-MB (CK-2) CK-MB (CK-2) Rel Index Total Protein Albumin Arterial Blood Glucose Arterial Blood Ionized Calcium Urine Creatinine Urine Total Protein Salicylates Acetaminophen Crossmatch 10/05/20 10/05/20 10/05/20 05:00 09:42 11:57 WBC RBC Hgb 9.8 L Hct 30.5 L MCV 74 L MCH 24 L MCHC RDW 31.6 H Plt Count [place] % (Auto) [place] # (Auto) Seg Neutrophils % Seg Neuts % (Manual) Lymphocytes % (Manual) Monocytes % (Manual) Basophils % (Manual) Nucleated RBC % Seg Neutrophils # Seg Neutrophils # Man Lymphocytes # (Manual) Monocytes # (Manual) Basophils # (Manual) PT INR APTT Fibrinogen D-Dimer ABG pH POC ABG pCO2 POC ABG pO2 ABG Hemoglobin ABG Oxyhemoglobin ABG Sodium ABG Potassium ABG Chloride ABG Glucose Sodium 132 L Potassium 3.5 L Chloride Carbon Dioxide 19 L BUN Creatinine 0.7 L Glucose POC Glucose 129 H Lactic Acid Calcium Magnesium Iron Total Bilirubin Direct Bilirubin AST ALT Alkaline Phosphatase Ammonia CK-MB (CK-2) CK-MB (CK-2) Rel Index Total Protein Albumin Arterial Blood Glucose Arterial Blood Ionized Calcium Urine Creatinine Urine Total Protein Salicylates Acetaminophen Crossmatch 10/05/20 10/05/20 10/06/20 16:47 21:51 05:07 WBC RBC Hgb 9.4 L Hct 30.1 L MCV 76 L MCH 24 L MCHC 31 L RDW 31.1 H Plt Count [place] % (Auto) [place] # (Auto) Seg Neutrophils % Seg Neuts % (Manual) Lymphocytes % (Manual) Monocytes % (Manual) Basophils % (Manual) Nucleated RBC % Seg Neutrophils # Seg Neutrophils # Man Lymphocytes # (Manual) Monocytes # (Manual) Basophils # (Manual) PT INR APTT Fibrinogen D-Dimer ABG pH POC ABG pCO2 POC ABG pO2 ABG Hemoglobin ABG Oxyhemoglobin ABG Sodium ABG Potassium ABG Chloride ABG Glucose Sodium Potassium Chloride Carbon Dioxide BUN Creatinine Glucose POC Glucose 132 H 115 H Lactic Acid Calcium Magnesium Iron Total Bilirubin Direct Bilirubin AST ALT Alkaline Phosphatase Ammonia CK-MB (CK-2) CK-MB (CK-2) Rel Index Total Protein Albumin Arterial Blood Glucose Arterial Blood Ionized Calcium Urine Creatinine Urine Total Protein Salicylates Acetaminophen Crossmatch 10/06/20 10/06/20 10/06/20 05:07 15:37 21:01 WBC RBC Hgb Hct MCV MCH MCHC RDW Plt Count [place] % (Auto) [place] # (Auto) Seg Neutrophils % Seg Neuts % (Manual) Lymphocytes % (Manual) Monocytes % (Manual) Basophils % (Manual) Nucleated RBC % Seg Neutrophils # Seg Neutrophils # Man Lymphocytes # (Manual) Monocytes # (Manual) Basophils # (Manual) PT INR APTT Fibrinogen D-Dimer ABG pH POC ABG pCO2 POC ABG pO2 ABG Hemoglobin ABG Oxyhemoglobin ABG Sodium ABG Potassium ABG Chloride ABG Glucose Sodium 133 L Potassium 3.5 L Chloride Carbon Dioxide 21 L BUN Creatinine 0.6 L Glucose 105 H POC Glucose 136 H 108 H Lactic Acid Calcium Magnesium Iron Total Bilirubin Direct Bilirubin AST ALT Alkaline Phosphatase Ammonia CK-MB (CK-2) CK-MB (CK-2) Rel Index Total Protein Albumin Arterial Blood Glucose Arterial Blood Ionized Calcium Urine Creatinine Urine Total Protein Salicylates Acetaminophen Crossmatch 10/07/20 10/07/20 10/07/20 04:52 04:52 06:07 WBC RBC Hgb 9.6 L Hct 29.4 L MCV 73 L MCH 24 L MCHC RDW 32.2 H Plt Count [place] % (Auto) [place] # (Auto) Seg Neutrophils % Seg Neuts % (Manual) Lymphocytes % (Manual) Monocytes % (Manual) Basophils % (Manual) Nucleated RBC % Seg Neutrophils # Seg Neutrophils # Man Lymphocytes # (Manual) Monocytes # (Manual) Basophils # (Manual) PT INR APTT Fibrinogen D-Dimer ABG pH POC ABG pCO2 POC ABG pO2 ABG Hemoglobin ABG Oxyhemoglobin ABG Sodium ABG Potassium ABG Chloride ABG Glucose Sodium 128 L Potassium Chloride Carbon Dioxide 20 L BUN Creatinine 0.7 L Glucose POC Glucose 110 H Lactic Acid Calcium Magnesium Iron Total Bilirubin Direct Bilirubin AST ALT Alkaline Phosphatase Ammonia CK-MB (CK-2) CK-MB (CK-2) Rel Index Total Protein Albumin Arterial Blood Glucose Arterial Blood Ionized Calcium Urine Creatinine Urine Total Protein Salicylates Acetaminophen Crossmatch 10/07/20 10/07/20 10/07/20 17:09 18:53 20:35 WBC RBC Hgb Hct MCV MCH MCHC RDW Plt Count [place] % (Auto) [place] # (Auto) Seg Neutrophils % Seg Neuts % (Manual) Lymphocytes % (Manual) Monocytes % (Manual) Basophils % (Manual) Nucleated RBC % Seg Neutrophils # Seg Neutrophils # Man Lymphocytes # (Manual) Monocytes # (Manual) Basophils # (Manual) PT INR APTT Fibrinogen D-Dimer ABG pH POC ABG pCO2 POC ABG pO2 ABG Hemoglobin ABG Oxyhemoglobin ABG Sodium ABG Potassium ABG Chloride ABG Glucose Sodium Potassium Chloride Carbon Dioxide BUN Creatinine Glucose POC Glucose 67 L 66 L 62 L Lactic Acid Calcium Magnesium Iron Total Bilirubin Direct Bilirubin AST ALT Alkaline Phosphatase Ammonia CK-MB (CK-2) CK-MB (CK-2) Rel Index Total Protein Albumin Arterial Blood Glucose Arterial Blood Ionized Calcium Urine Creatinine Urine Total Protein Salicylates Acetaminophen Crossmatch 10/07/20 10/08/20 10/08/20 21:55 05:00 05:00 WBC RBC Hgb 9.6 L Hct 29.4 L MCV 73 L MCH 24 L MCHC RDW 32.4 H Plt Count [place] % (Auto) [place] # (Auto) Seg Neutrophils % 80.6 H Seg Neuts % (Manual) 88.0 H Lymphocytes % (Manual) 9.0 L Monocytes % (Manual) Basophils % (Manual) Nucleated RBC % 5.0 H Seg Neutrophils # Seg Neutrophils # Man Lymphocytes # (Manual) 0.5 L Monocytes # (Manual) Basophils # (Manual) PT INR APTT Fibrinogen D-Dimer ABG pH POC ABG pCO2 POC ABG pO2 ABG Hemoglobin ABG Oxyhemoglobin ABG Sodium ABG Potassium ABG Chloride ABG Glucose Sodium 126 L Potassium Chloride 96.3 L Carbon Dioxide BUN Creatinine 0.7 L Glucose POC Glucose 132 H Lactic Acid Calcium Magnesium Iron Total Bilirubin Direct Bilirubin AST ALT Alkaline Phosphatase Ammonia CK-MB (CK-2) CK-MB (CK-2) Rel Index Total Protein Albumin Arterial Blood Glucose Arterial Blood Ionized Calcium Urine Creatinine Urine Total Protein Salicylates Acetaminophen Crossmatch 10/08/20 10/09/20 10/09/20 22:26 01:36 02:22 WBC RBC Hgb Hct MCV MCH MCHC RDW Plt Count [place] % (Auto) [place] # (Auto) Seg Neutrophils % Seg Neuts % (Manual) Lymphocytes % (Manual) Monocytes % (Manual) Basophils % (Manual) Nucleated RBC % Seg Neutrophils # Seg Neutrophils # Man Lymphocytes # (Manual) Monocytes # (Manual) Basophils # (Manual) PT INR APTT Fibrinogen D-Dimer ABG pH POC ABG pCO2 POC ABG pO2 ABG Hemoglobin ABG Oxyhemoglobin ABG Sodium ABG Potassium ABG Chloride ABG Glucose Sodium Potassium Chloride Carbon Dioxide BUN Creatinine Glucose POC Glucose 63 L 62 L 151 H Lactic Acid Calcium Magnesium Iron Total Bilirubin Direct Bilirubin AST ALT Alkaline Phosphatase Ammonia CK-MB (CK-2) CK-MB (CK-2) Rel Index Total Protein Albumin Arterial Blood Glucose Arterial Blood Ionized Calcium Urine Creatinine Urine Total Protein Salicylates Acetaminophen Crossmatch 10/09/20 10/09/20 10/09/20 05:07 05:42 06:32 WBC RBC Hgb 10.3 L Hct 33.8 L MCV 77 L MCH 24 L MCHC 31 L RDW 33.6 H Plt Count 137 L [place] % (Auto) [place] # (Auto) Seg Neutrophils % Seg Neuts % (Manual) 89.0 H Lymphocytes % (Manual) 5.0 L Monocytes % (Manual) Basophils % (Manual) Nucleated RBC % 4.0 H Seg Neutrophils # Seg Neutrophils # Man 9.4 H Lymphocytes # (Manual) 0.5 L Monocytes # (Manual) Basophils # (Manual) PT INR APTT Fibrinogen D-Dimer ABG pH POC ABG pCO2 POC ABG pO2 ABG Hemoglobin ABG Oxyhemoglobin ABG Sodium ABG Potassium ABG Chloride ABG Glucose Sodium 126 L Potassium Chloride 97.8 L Carbon Dioxide 20 L BUN Creatinine Glucose 58 L POC Glucose 48 L Lactic Acid Calcium Magnesium Iron Total Bilirubin Direct Bilirubin AST ALT Alkaline Phosphatase Ammonia CK-MB (CK-2) CK-MB (CK-2) Rel Index Total Protein Albumin Arterial Blood Glucose Arterial Blood Ionized Calcium Urine Creatinine Urine Total Protein Salicylates Acetaminophen Crossmatch 10/09/20 10/10/20 10/10/20 06:35 00:21 05:53 WBC RBC Hgb Hct MCV MCH MCHC RDW Plt Count [place] % (Auto) [place] # (Auto) Seg Neutrophils % Seg Neuts % (Manual) Lymphocytes % (Manual) Monocytes % (Manual) Basophils % (Manual) Nucleated RBC % Seg Neutrophils # Seg Neutrophils # Man Lymphocytes # (Manual) Monocytes # (Manual) Basophils # (Manual) PT INR APTT Fibrinogen D-Dimer ABG pH POC ABG pCO2 POC ABG pO2 ABG Hemoglobin ABG Oxyhemoglobin ABG Sodium ABG Potassium ABG Chloride ABG Glucose Sodium Potassium Chloride Carbon Dioxide BUN Creatinine Glucose POC Glucose 106 H 153 H 34 L Lactic Acid Calcium Magnesium Iron Total Bilirubin Direct Bilirubin AST ALT Alkaline Phosphatase Ammonia CK-MB (CK-2) CK-MB (CK-2) Rel Index Total Protein Albumin Arterial Blood Glucose Arterial Blood Ionized Calcium Urine Creatinine Urine Total Protein Salicylates Acetaminophen Crossmatch 10/10/20 10/10/20 10/10/20 10:58 10:58 12:39 WBC RBC Hgb 10.3 L Hct 33.9 L MCV 78 L MCH 24 L MCHC 30 L RDW 33.2 H Plt Count 135 L [place] % (Auto) [place] # (Auto) Seg Neutrophils % Seg Neuts % (Manual) 74.0 H Lymphocytes % (Manual) 12.0 L Monocytes % (Manual) 9.0 H Basophils % (Manual) 2.0 H Nucleated RBC % Seg Neutrophils # Seg Neutrophils # Man Lymphocytes # (Manual) 1.0 L Monocytes # (Manual) Basophils # (Manual) 0.2 H PT INR APTT Fibrinogen D-Dimer ABG pH POC ABG pCO2 POC ABG pO2 ABG Hemoglobin ABG Oxyhemoglobin ABG Sodium ABG Potassium ABG Chloride ABG Glucose Sodium 127 L Potassium Chloride Carbon Dioxide 20 L BUN 23 H Creatinine Glucose POC Glucose 108 H Lactic Acid Calcium Magnesium Iron Total Bilirubin Direct Bilirubin AST ALT Alkaline Phosphatase Ammonia CK-MB (CK-2) CK-MB (CK-2) Rel Index Total Protein Albumin Arterial Blood Glucose Arterial Blood Ionized Calcium Urine Creatinine Urine Total Protein Salicylates Acetaminophen Crossmatch 10/10/20 10/11/20 10/11/20 16:51 04:56 05:51 WBC RBC Hgb 9.5 L Hct 31.3 L MCV 77 L MCH 23 L MCHC 30 L RDW 33.7 H Plt Count [place] % (Auto) [place] # (Auto) Seg Neutrophils % Seg Neuts % (Manual) 95.0 H Lymphocytes % (Manual) 2.0 L Monocytes % (Manual) Basophils % (Manual) Nucleated RBC % 3.0 H Seg Neutrophils # Seg Neutrophils # Man 8.0 H Lymphocytes # (Manual) 0.2 L Monocytes # (Manual) Basophils # (Manual) PT INR APTT Fibrinogen D-Dimer ABG pH POC ABG pCO2 POC ABG pO2 ABG Hemoglobin ABG Oxyhemoglobin ABG Sodium ABG Potassium ABG Chloride ABG Glucose Sodium Potassium Chloride Carbon Dioxide BUN Creatinine Glucose POC Glucose 142 H 124 H Lactic Acid Calcium Magnesium Iron Total Bilirubin Direct Bilirubin AST ALT Alkaline Phosphatase Ammonia CK-MB (CK-2) CK-MB (CK-2) Rel Index Total Protein Albumin Arterial Blood Glucose Arterial Blood Ionized Calcium Urine Creatinine Urine Total Protein Salicylates Acetaminophen Crossmatch 10/11/20 10/11/20 10/12/20 05:51 11:56 04:53 WBC RBC Hgb 9.5 L Hct 30.0 L MCV 75 L MCH 24 L MCHC RDW 32.8 H Plt Count 136 L [place] % (Auto) [place] # (Auto) Seg Neutrophils % Seg Neuts % (Manual) 89.0 H Lymphocytes % (Manual) 5.0 L Monocytes % (Manual) Basophils % (Manual) Nucleated RBC % Seg Neutrophils # Seg Neutrophils # Man Lymphocytes # (Manual) 0.4 L Monocytes # (Manual) Basophils # (Manual) PT INR APTT Fibrinogen D-Dimer ABG pH POC ABG pCO2 POC ABG pO2 ABG Hemoglobin ABG Oxyhemoglobin ABG Sodium ABG Potassium ABG Chloride ABG Glucose Sodium 130 L Potassium Chloride Carbon Dioxide 18 L BUN 23 H Creatinine Glucose POC Glucose 126 H Lactic Acid Calcium Magnesium Iron Total Bilirubin Direct Bilirubin AST ALT Alkaline Phosphatase Ammonia CK-MB (CK-2) CK-MB (CK-2) Rel Index Total Protein Albumin Arterial Blood Glucose Arterial Blood Ionized Calcium Urine Creatinine Urine Total Protein Salicylates Acetaminophen Crossmatch 10/12/20 10/12/20 10/12/20 04:53 11:42 23:49 WBC RBC Hgb Hct MCV MCH MCHC RDW Plt Count [place] % (Auto) [place] # (Auto) Seg Neutrophils % Seg Neuts % (Manual) Lymphocytes % (Manual) Monocytes % (Manual) Basophils % (Manual) Nucleated RBC % Seg Neutrophils # Seg Neutrophils # Man Lymphocytes # (Manual) Monocytes # (Manual) Basophils # (Manual) PT INR APTT Fibrinogen D-Dimer ABG pH POC ABG pCO2 POC ABG pO2 ABG Hemoglobin ABG Oxyhemoglobin ABG Sodium ABG Potassium ABG Chloride ABG Glucose Sodium 130 L Potassium Chloride Carbon Dioxide 18 L BUN 25 H Creatinine Glucose 74 L POC Glucose 59 L 51 L Lactic Acid Calcium Magnesium Iron Total Bilirubin Direct Bilirubin AST ALT Alkaline Phosphatase Ammonia CK-MB (CK-2) CK-MB (CK-2) Rel Index Total Protein Albumin Arterial Blood Glucose Arterial Blood Ionized Calcium Urine Creatinine Urine Total Protein Salicylates Acetaminophen Crossmatch 10/13/20 10/13/20 10/13/20 03:17 05:24 05:24 WBC RBC Hgb 9.4 L Hct 29.4 L MCV 75 L MCH 24 L MCHC RDW 32.9 H Plt Count 95 L [place] % (Auto) [place] # (Auto) Seg Neutrophils % Seg Neuts % (Manual) 90.0 H Lymphocytes % (Manual) Monocytes % (Manual) Basophils % (Manual) Nucleated RBC % 2.0 H Seg Neutrophils # Seg Neutrophils # Man 9.5 H Lymphocytes # (Manual) 0.0 L Monocytes # (Manual) Basophils # (Manual) PT INR APTT Fibrinogen D-Dimer ABG pH POC ABG pCO2 POC ABG pO2 ABG Hemoglobin ABG Oxyhemoglobin ABG Sodium ABG Potassium ABG Chloride ABG Glucose Sodium 132 L Potassium Chloride Carbon Dioxide 17 L BUN 26 H Creatinine 1.6 H Glucose POC Glucose 67 L Lactic Acid Calcium Magnesium Iron Total Bilirubin Direct Bilirubin AST ALT Alkaline Phosphatase Ammonia CK-MB (CK-2) CK-MB (CK-2) Rel Index Total Protein Albumin Arterial Blood Glucose Arterial Blood Ionized Calcium Urine Creatinine Urine Total Protein Salicylates Acetaminophen Crossmatch 10/13/20 10/14/20 10/14/20 11:36 05:04 05:04 WBC 17.4 H RBC Hgb 9.3 L Hct 29.3 L MCV 76 L MCH 24 L MCHC RDW 33.8 H Plt Count 83 L [place] % (Auto) [place] # (Auto) Seg Neutrophils % Seg Neuts % (Manual) 89.0 H Lymphocytes % (Manual) 4.0 L Monocytes % (Manual) Basophils % (Manual) Nucleated RBC % 1.0 H Seg Neutrophils # Seg Neutrophils # Man 15.5 H Lymphocytes # (Manual) 0.7 L Monocytes # (Manual) Basophils # (Manual) PT INR APTT Fibrinogen D-Dimer ABG pH POC ABG pCO2 POC ABG pO2 ABG Hemoglobin ABG Oxyhemoglobin ABG Sodium ABG Potassium ABG Chloride ABG Glucose Sodium 132 L Potassium 5.3 H Chloride 108.7 H Carbon Dioxide 15 L BUN 25 H Creatinine 1.5 H Glucose POC Glucose 58 L Lactic Acid Calcium Magnesium Iron Total Bilirubin Direct Bilirubin AST ALT Alkaline Phosphatase Ammonia CK-MB (CK-2) CK-MB (CK-2) Rel Index Total Protein Albumin Arterial Blood Glucose Arterial Blood Ionized Calcium Urine Creatinine Urine Total Protein Salicylates Acetaminophen Crossmatch 10/14/20 10/14/20 10/14/20 05:41 08:19 15:34 WBC RBC Hgb Hct MCV MCH MCHC RDW Plt Count [place] % (Auto) [place] # (Auto) Seg Neutrophils % Seg Neuts % (Manual) Lymphocytes % (Manual) Monocytes % (Manual) Basophils % (Manual) Nucleated RBC % Seg Neutrophils # Seg Neutrophils # Man Lymphocytes # (Manual) Monocytes # (Manual) Basophils # (Manual) PT INR APTT Fibrinogen D-Dimer ABG pH POC ABG pCO2 POC ABG pO2 ABG Hemoglobin ABG Oxyhemoglobin ABG Sodium ABG Potassium ABG Chloride ABG Glucose Sodium 134 L Potassium 5.2 H Chloride 111.1 H Carbon Dioxide 16 L BUN 25 H Creatinine 1.5 H Glucose POC Glucose 58 L 120 H Lactic Acid Calcium Magnesium Iron Total Bilirubin Direct Bilirubin AST ALT Alkaline Phosphatase Ammonia CK-MB (CK-2) CK-MB (CK-2) Rel Index Total Protein Albumin Arterial Blood Glucose Arterial Blood Ionized Calcium Urine Creatinine Urine Total Protein Salicylates Acetaminophen Crossmatch 10/14/20 10/15/20 10/15/20 Unknown 05:50 05:50 WBC 14.1 H RBC Hgb 9.4 L Hct 29.9 L MCV 76 L MCH 24 L MCHC 31 L RDW 34.2 H Plt Count 86 L [place] % (Auto) 8.3 H [place] # (Auto) 1.3 H Seg Neutrophils % 86.5 H Seg Neuts % (Manual) Lymphocytes % (Manual) 9.0 L Monocytes % (Manual) Basophils % (Manual) Nucleated RBC % 6.0 H Seg Neutrophils # 13.2 H Seg Neutrophils # Man 9.7 H Lymphocytes # (Manual) Monocytes # (Manual) Basophils # (Manual) PT INR APTT Fibrinogen D-Dimer ABG pH POC ABG pCO2 POC ABG pO2 ABG Hemoglobin ABG Oxyhemoglobin ABG Sodium ABG Potassium ABG Chloride ABG Glucose Sodium 134 L Potassium Chloride 109.9 H Carbon Dioxide 18 L BUN 26 H Creatinine 1.5 H Glucose 125 H POC Glucose Lactic Acid Calcium Magnesium Iron Total Bilirubin Direct Bilirubin AST ALT Alkaline Phosphatase Ammonia CK-MB (CK-2) CK-MB (CK-2) Rel Index Total Protein Albumin Arterial Blood Glucose Arterial Blood Ionized Calcium Urine Creatinine 144.2 H Urine Total Protein 97 H Salicylates Acetaminophen Crossmatch 10/15/20 10/15/20 10/15/20 05:55 07:36 07:59 WBC RBC Hgb Hct MCV MCH MCHC RDW Plt Count [place] % (Auto) [place] # (Auto) Seg Neutrophils % Seg Neuts % (Manual) Lymphocytes % (Manual) Monocytes % (Manual) Basophils % (Manual) Nucleated RBC % Seg Neutrophils # Seg Neutrophils # Man Lymphocytes # (Manual) Monocytes # (Manual) Basophils # (Manual) PT INR APTT Fibrinogen D-Dimer ABG pH 7.052 L POC ABG pCO2 65.0 H POC ABG pO2 214.1 H ABG Hemoglobin 10.6 L ABG Oxyhemoglobin 98.3 H ABG Sodium 130.6 L ABG Potassium ABG Chloride 110.0 H ABG Glucose 124 H Sodium Potassium Chloride Carbon Dioxide BUN Creatinine Glucose POC Glucose 113 H 114 H Lactic Acid Calcium Magnesium Iron Total Bilirubin Direct Bilirubin AST ALT Alkaline Phosphatase Ammonia CK-MB (CK-2) CK-MB (CK-2) Rel Index Total Protein Albumin Arterial Blood Glucose 124 H Arterial Blood Ionized Calcium Urine Creatinine Urine Total Protein Salicylates Acetaminophen Crossmatch 10/15/20 10/15/20 10/15/20 10:50 11:27 13:56 WBC RBC Hgb Hct MCV MCH MCHC RDW Plt Count [place] % (Auto) [place] # (Auto) Seg Neutrophils % Seg Neuts % (Manual) Lymphocytes % (Manual) Monocytes % (Manual) Basophils % (Manual) Nucleated RBC % Seg Neutrophils # Seg Neutrophils # Man Lymphocytes # (Manual) Monocytes # (Manual) Basophils # (Manual) PT INR APTT Fibrinogen D-Dimer ABG pH 7.200 L POC ABG pCO2 POC ABG pO2 123.1 H ABG Hemoglobin ABG Oxyhemoglobin ABG Sodium 131.3 L ABG Potassium 4.6 H ABG Chloride 112.0 H ABG Glucose 42 L Sodium Potassium Chloride Carbon Dioxide BUN Creatinine Glucose POC Glucose 50 L 476 H Lactic Acid Calcium Magnesium Iron Total Bilirubin Direct Bilirubin AST ALT Alkaline Phosphatase Ammonia CK-MB (CK-2) CK-MB (CK-2) Rel Index Total Protein Albumin Arterial Blood Glucose 42 L Arterial Blood Ionized Calcium Urine Creatinine Urine Total Protein Salicylates Acetaminophen Crossmatch 10/15/20 10/15/20 10/16/20 16:46 17:01 00:45 WBC RBC Hgb Hct MCV MCH MCHC RDW Plt Count [place] % (Auto) [place] # (Auto) Seg Neutrophils % Seg Neuts % (Manual) Lymphocytes % (Manual) Monocytes % (Manual) Basophils % (Manual) Nucleated RBC % Seg Neutrophils # Seg Neutrophils # Man Lymphocytes # (Manual) Monocytes # (Manual) Basophils # (Manual) PT INR APTT Fibrinogen D-Dimer ABG pH 7.250 L POC ABG pCO2 POC ABG pO2 49.8 L ABG Hemoglobin 9.3 L ABG Oxyhemoglobin 83.0 L ABG Sodium 130.2 L ABG Potassium ABG Chloride 111.0 H ABG Glucose Sodium 135 L Potassium Chloride Carbon Dioxide BUN Creatinine Glucose POC Glucose 67 L Lactic Acid Calcium Magnesium Iron Total Bilirubin Direct Bilirubin AST ALT Alkaline Phosphatase Ammonia CK-MB (CK-2) CK-MB (CK-2) Rel Index Total Protein Albumin Arterial Blood Glucose Arterial Blood Ionized Calcium Urine Creatinine Urine Total Protein Salicylates Acetaminophen Crossmatch 10/16/20 10/16/20 10/16/20 05:36 05:53 05:53 WBC 16.6 H RBC 3.52 L Hgb 8.3 L Hct 26.6 L MCV 75 L MCH 23 L MCHC 31 L RDW 33.7 H Plt Count 63 L [place] % (Auto) [place] # (Auto) Seg Neutrophils % Seg Neuts % (Manual) 93.0 H Lymphocytes % (Manual) Monocytes % (Manual) Basophils % (Manual) Nucleated RBC % 3.0 H Seg Neutrophils # Seg Neutrophils # Man 15.4 H Lymphocytes # (Manual) 0.0 L Monocytes # (Manual) Basophils # (Manual) PT INR APTT Fibrinogen D-Dimer ABG pH POC ABG pCO2 POC ABG pO2 ABG Hemoglobin ABG Oxyhemoglobin ABG Sodium ABG Potassium ABG Chloride ABG Glucose Sodium 136 L Potassium Chloride 111.9 H Carbon Dioxide 17 L BUN 29 H Creatinine 2.0 H Glucose 126 H POC Glucose 44 L Lactic Acid Calcium 8.1 L Magnesium Iron Total Bilirubin Direct Bilirubin AST ALT Alkaline Phosphatase Ammonia CK-MB (CK-2) CK-MB (CK-2) Rel Index Total Protein Albumin Arterial Blood Glucose Arterial Blood Ionized Calcium Urine Creatinine Urine Total Protein Salicylates Acetaminophen Crossmatch 10/16/20 10/16/20 10/16/20 05:53 07:26 08:07 WBC RBC Hgb Hct MCV MCH MCHC RDW Plt Count [place] % (Auto) [place] # (Auto) Seg Neutrophils % Seg Neuts % (Manual) Lymphocytes % (Manual) Monocytes % (Manual) Basophils % (Manual) Nucleated RBC % Seg Neutrophils # Seg Neutrophils # Man Lymphocytes # (Manual) Monocytes # (Manual) Basophils # (Manual) PT 24.5 H INR 2.17 H APTT Fibrinogen D-Dimer ABG pH POC ABG pCO2 POC ABG pO2 ABG Hemoglobin ABG Oxyhemoglobin ABG Sodium ABG Potassium ABG Chloride ABG Glucose Sodium Potassium Chloride Carbon Dioxide BUN Creatinine Glucose POC Glucose 58 L 51 L Lactic Acid Calcium Magnesium Iron Total Bilirubin Direct Bilirubin AST ALT Alkaline Phosphatase Ammonia CK-MB (CK-2) CK-MB (CK-2) Rel Index Total Protein Albumin Arterial Blood Glucose Arterial Blood Ionized Calcium Urine Creatinine Urine Total Protein Salicylates Acetaminophen Crossmatch 10/16/20 10/16/20 10/16/20 08:52 11:14 11:33 WBC RBC Hgb Hct MCV MCH MCHC RDW Plt Count [place] % (Auto) [place] # (Auto) Seg Neutrophils % Seg Neuts % (Manual) Lymphocytes % (Manual) Monocytes % (Manual) Basophils % (Manual) Nucleated RBC % Seg Neutrophils # Seg Neutrophils # Man Lymphocytes # (Manual) Monocytes # (Manual) Basophils # (Manual) PT INR APTT Fibrinogen D-Dimer ABG pH 7.044 L POC ABG pCO2 58.1 H POC ABG pO2 57.7 L ABG Hemoglobin 9.5 L ABG Oxyhemoglobin 81.5 L ABG Sodium 131.7 L ABG Potassium ABG Chloride 112.0 H ABG Glucose 59 L Sodium Potassium Chloride Carbon Dioxide BUN Creatinine Glucose POC Glucose 58 L Lactic Acid Calcium Magnesium Iron Total Bilirubin Direct Bilirubin AST 136 H ALT 72 H Alkaline Phosphatase 240 H Ammonia CK-MB (CK-2) CK-MB (CK-2) Rel Index Total Protein 5.1 L Albumin 2.1 L Arterial Blood Glucose 59 L Arterial Blood Ionized Calcium Urine Creatinine Urine Total Protein Salicylates Acetaminophen Crossmatch 10/16/20 10/16/20 10/16/20 12:32 13:11 13:40 WBC RBC Hgb Hct MCV MCH MCHC RDW Plt Count [place] % (Auto) [place] # (Auto) Seg Neutrophils % Seg Neuts % (Manual) Lymphocytes % (Manual) Monocytes % (Manual) Basophils % (Manual) Nucleated RBC % Seg Neutrophils # Seg Neutrophils # Man Lymphocytes # (Manual) Monocytes # (Manual) Basophils # (Manual) PT INR APTT Fibrinogen D-Dimer ABG pH POC ABG pCO2 POC ABG pO2 ABG Hemoglobin ABG Oxyhemoglobin ABG Sodium ABG Potassium ABG Chloride ABG Glucose Sodium Potassium Chloride Carbon Dioxide BUN Creatinine Glucose POC Glucose 27 L 54 L 69 L Lactic Acid Calcium Magnesium Iron Total Bilirubin Direct Bilirubin AST ALT Alkaline Phosphatase Ammonia CK-MB (CK-2) CK-MB (CK-2) Rel Index Total Protein Albumin Arterial Blood Glucose Arterial Blood Ionized Calcium Urine Creatinine Urine Total Protein Salicylates Acetaminophen Crossmatch 10/16/20 10/16/20 10/16/20 15:13 17:15 17:34 WBC RBC Hgb Hct MCV MCH MCHC RDW Plt Count [place] % (Auto) [place] # (Auto) Seg Neutrophils % Seg Neuts % (Manual) Lymphocytes % (Manual) Monocytes % (Manual) Basophils % (Manual) Nucleated RBC % Seg Neutrophils # Seg Neutrophils # Man Lymphocytes # (Manual) Monocytes # (Manual) Basophils # (Manual) PT INR APTT Fibrinogen D-Dimer ABG pH POC ABG pCO2 POC ABG pO2 ABG Hemoglobin ABG Oxyhemoglobin ABG Sodium ABG Potassium ABG Chloride ABG Glucose Sodium Potassium Chloride Carbon Dioxide BUN Creatinine Glucose POC Glucose 46 L 54 L 119 H Lactic Acid Calcium Magnesium Iron Total Bilirubin Direct Bilirubin AST ALT Alkaline Phosphatase Ammonia CK-MB (CK-2) CK-MB (CK-2) Rel Index Total Protein Albumin Arterial Blood Glucose Arterial Blood Ionized Calcium Urine Creatinine Urine Total Protein Salicylates Acetaminophen Crossmatch 10/16/20 10/16/20 10/16/20 18:51 19:37 21:00 WBC RBC Hgb Hct MCV MCH MCHC RDW Plt Count [place] % (Auto) [place] # (Auto) Seg Neutrophils % Seg Neuts % (Manual) Lymphocytes % (Manual) Monocytes % (Manual) Basophils % (Manual) Nucleated RBC % Seg Neutrophils # Seg Neutrophils # Man Lymphocytes # (Manual) Monocytes # (Manual) Basophils # (Manual) PT INR APTT Fibrinogen D-Dimer ABG pH 7.122 L POC ABG pCO2 49.8 H POC ABG pO2 62.1 L ABG Hemoglobin 9.1 L ABG Oxyhemoglobin 89.6 L ABG Sodium 130.1 L ABG Potassium 3.0 L ABG Chloride 111.0 H ABG Glucose 106 H Sodium Potassium Chloride Carbon Dioxide BUN Creatinine Glucose POC Glucose 64 L 114 H Lactic Acid Calcium Magnesium Iron Total Bilirubin Direct Bilirubin AST ALT Alkaline Phosphatase Ammonia CK-MB (CK-2) CK-MB (CK-2) Rel Index Total Protein Albumin Arterial Blood Glucose 106 H Arterial Blood Ionized Calcium Urine Creatinine Urine Total Protein Salicylates Acetaminophen Crossmatch 10/16/20 10/16/20 10/17/20 22:01 22:58 00:58 WBC RBC Hgb Hct MCV MCH MCHC RDW Plt Count [place] % (Auto) [place] # (Auto) Seg Neutrophils % Seg Neuts % (Manual) Lymphocytes % (Manual) Monocytes % (Manual) Basophils % (Manual) Nucleated RBC % Seg Neutrophils # Seg Neutrophils # Man Lymphocytes # (Manual) Monocytes # (Manual) Basophils # (Manual) PT INR APTT Fibrinogen D-Dimer ABG pH POC ABG pCO2 POC ABG pO2 ABG Hemoglobin ABG Oxyhemoglobin ABG Sodium ABG Potassium ABG Chloride ABG Glucose Sodium 133 L Potassium 3.5 L Chloride 107.7 H Carbon Dioxide 15 L BUN 29 H Creatinine 2.6 H Glucose POC Glucose 63 L 292 H Lactic Acid Calcium 7.9 L Magnesium Iron Total Bilirubin Direct Bilirubin AST ALT Alkaline Phosphatase Ammonia CK-MB (CK-2) CK-MB (CK-2) Rel Index Total Protein Albumin Arterial Blood Glucose Arterial Blood Ionized Calcium Urine Creatinine Urine Total Protein Salicylates Acetaminophen Crossmatch 10/17/20 10/17/20 10/17/20 02:04 03:08 03:55 WBC RBC Hgb Hct MCV MCH MCHC RDW Plt Count [place] % (Auto) [place] # (Auto) Seg Neutrophils % Seg Neuts % (Manual) Lymphocytes % (Manual) Monocytes % (Manual) Basophils % (Manual) Nucleated RBC % Seg Neutrophils # Seg Neutrophils # Man Lymphocytes # (Manual) Monocytes # (Manual) Basophils # (Manual) PT INR APTT Fibrinogen D-Dimer ABG pH POC ABG pCO2 POC ABG pO2 ABG Hemoglobin ABG Oxyhemoglobin ABG Sodium ABG Potassium ABG Chloride ABG Glucose Sodium Potassium Chloride Carbon Dioxide BUN Creatinine Glucose POC Glucose 200 H 173 H 161 H Lactic Acid Calcium Magnesium Iron Total Bilirubin Direct Bilirubin AST ALT Alkaline Phosphatase Ammonia CK-MB (CK-2) CK-MB (CK-2) Rel Index Total Protein Albumin Arterial Blood Glucose Arterial Blood Ionized Calcium Urine Creatinine Urine Total Protein Salicylates Acetaminophen Crossmatch 10/17/20 10/17/20 10/17/20 04:00 04:49 04:49 WBC 17.7 H RBC 3.21 L Hgb 7.5 L Hct 25.4 L MCV 79 L MCH 24 L MCHC 30 L RDW 34.0 H Plt Count 40 L [place] % (Auto) [place] # (Auto) Seg Neutrophils % Seg Neuts % (Manual) Lymphocytes % (Manual) 3.0 L Monocytes % (Manual) Basophils % (Manual) Nucleated RBC % 3.0 H Seg Neutrophils # Seg Neutrophils # Man 10.6 H Lymphocytes # (Manual) 0.5 L Monocytes # (Manual) 1.1 H Basophils # (Manual) PT INR APTT Fibrinogen D-Dimer ABG pH 7.116 L POC ABG pCO2 POC ABG pO2 61.1 L ABG Hemoglobin 8.4 L ABG Oxyhemoglobin 90.2 L ABG Sodium 125.0 L ABG Potassium 3.1 L ABG Chloride ABG Glucose 155 H Sodium 133 L Potassium 3.3 L Chloride Carbon Dioxide 15 L BUN 29 H Creatinine 2.7 H Glucose 138 H POC Glucose Lactic Acid Calcium 7.8 L Magnesium Iron Total Bilirubin Direct Bilirubin AST ALT Alkaline Phosphatase Ammonia CK-MB (CK-2) CK-MB (CK-2) Rel Index Total Protein Albumin Arterial Blood Glucose 155 H Arterial Blood Ionized Calcium Urine Creatinine Urine Total Protein Salicylates Acetaminophen Crossmatch 10/17/20 10/17/20 10/17/20 04:58 06:01 07:50 WBC RBC Hgb Hct MCV MCH MCHC RDW Plt Count [place] % (Auto) [place] # (Auto) Seg Neutrophils % Seg Neuts % (Manual) Lymphocytes % (Manual) Monocytes % (Manual) Basophils % (Manual) Nucleated RBC % Seg Neutrophils # Seg Neutrophils # Man Lymphocytes # (Manual) Monocytes # (Manual) Basophils # (Manual) PT INR APTT Fibrinogen D-Dimer ABG pH POC ABG pCO2 POC ABG pO2 ABG Hemoglobin ABG Oxyhemoglobin ABG Sodium ABG Potassium ABG Chloride ABG Glucose Sodium Potassium Chloride Carbon Dioxide BUN Creatinine Glucose POC Glucose 137 H 119 H 106 H Lactic Acid Calcium Magnesium Iron Total Bilirubin Direct Bilirubin AST ALT Alkaline Phosphatase Ammonia CK-MB (CK-2) CK-MB (CK-2) Rel Index Total Protein Albumin Arterial Blood Glucose Arterial Blood Ionized Calcium Urine Creatinine Urine Total Protein Salicylates Acetaminophen Crossmatch 10/17/20 10/17/20 10/17/20 11:50 15:11 18:11 WBC RBC Hgb Hct MCV MCH MCHC RDW Plt Count [place] % (Auto) [place] # (Auto) Seg Neutrophils % Seg Neuts % (Manual) Lymphocytes % (Manual) Monocytes % (Manual) Basophils % (Manual) Nucleated RBC % Seg Neutrophils # Seg Neutrophils # Man Lymphocytes # (Manual) Monocytes # (Manual) Basophils # (Manual) PT INR APTT Fibrinogen D-Dimer ABG pH POC ABG pCO2 POC ABG pO2 ABG Hemoglobin ABG Oxyhemoglobin ABG Sodium ABG Potassium ABG Chloride ABG Glucose Sodium Potassium Chloride Carbon Dioxide BUN Creatinine Glucose POC Glucose 111 H 114 H 137 H Lactic Acid Calcium Magnesium Iron Total Bilirubin Direct Bilirubin AST ALT Alkaline Phosphatase Ammonia CK-MB (CK-2) CK-MB (CK-2) Rel Index Total Protein Albumin Arterial Blood Glucose Arterial Blood Ionized Calcium Urine Creatinine Urine Total Protein Salicylates Acetaminophen Crossmatch 10/17/20 10/17/20 10/18/20 19:51 23:32 04:00 WBC RBC Hgb Hct MCV MCH MCHC RDW Plt Count [place] % (Auto) [place] # (Auto) Seg Neutrophils % Seg Neuts % (Manual) Lymphocytes % (Manual) Monocytes % (Manual) Basophils % (Manual) Nucleated RBC % Seg Neutrophils # Seg Neutrophils # Man Lymphocytes # (Manual) Monocytes # (Manual) Basophils # (Manual) PT INR APTT Fibrinogen D-Dimer ABG pH 7.276 L POC ABG pCO2 POC ABG pO2 77.7 L ABG Hemoglobin 7.2 L ABG Oxyhemoglobin ABG Sodium 122.6 L ABG Potassium ABG Chloride ABG Glucose 113 H Sodium Potassium Chloride Carbon Dioxide BUN Creatinine Glucose POC Glucose 130 H 114 H Lactic Acid Calcium Magnesium Iron Total Bilirubin Direct Bilirubin AST ALT Alkaline Phosphatase Ammonia CK-MB (CK-2) CK-MB (CK-2) Rel Index Total Protein Albumin Arterial Blood Glucose 113 H Arterial Blood Ionized Calcium Urine Creatinine Urine Total Protein Salicylates Acetaminophen Crossmatch 10/18/20 10/18/20 10/18/20 04:06 04:06 04:13 WBC RBC Hgb Hct MCV MCH MCHC RDW Plt Count [place] % (Auto) [place] # (Auto) Seg Neutrophils % Seg Neuts % (Manual) Lymphocytes % (Manual) Monocytes % (Manual) Basophils % (Manual) Nucleated RBC % Seg Neutrophils # Seg Neutrophils # Man Lymphocytes # (Manual) Monocytes # (Manual) Basophils # (Manual) PT 23.5 H INR 2.05 H APTT Fibrinogen D-Dimer ABG pH POC ABG pCO2 POC ABG pO2 ABG Hemoglobin ABG Oxyhemoglobin ABG Sodium ABG Potassium ABG Chloride ABG Glucose Sodium 123 L D Potassium Chloride 97.9 L Carbon Dioxide 16 L BUN 31 H Creatinine 3.1 H Glucose 113 H POC Glucose 108 H Lactic Acid Calcium 7.4 L Magnesium Iron Total Bilirubin Direct Bilirubin AST ALT Alkaline Phosphatase Ammonia CK-MB (CK-2) CK-MB (CK-2) Rel Index Total Protein Albumin Arterial Blood Glucose Arterial Blood Ionized Calcium Urine Creatinine Urine Total Protein Salicylates Acetaminophen Crossmatch 10/18/20 10/18/20 10/18/20 10:03 14:12 19:08 WBC RBC Hgb Hct MCV MCH MCHC RDW Plt Count [place] % (Auto) [place] # (Auto) Seg Neutrophils % Seg Neuts % (Manual) Lymphocytes % (Manual) Monocytes % (Manual) Basophils % (Manual) Nucleated RBC % Seg Neutrophils # Seg Neutrophils # Man Lymphocytes # (Manual) Monocytes # (Manual) Basophils # (Manual) PT INR APTT Fibrinogen D-Dimer ABG pH POC ABG pCO2 POC ABG pO2 ABG Hemoglobin ABG Oxyhemoglobin ABG Sodium ABG Potassium ABG Chloride ABG Glucose Sodium Potassium Chloride Carbon Dioxide BUN Creatinine Glucose POC Glucose 139 H 112 H Lactic Acid Calcium Magnesium Iron Total Bilirubin Direct Bilirubin AST ALT Alkaline Phosphatase Ammonia CK-MB (CK-2) CK-MB (CK-2) Rel Index Total Protein Albumin Arterial Blood Glucose Arterial Blood Ionized Calcium Urine Creatinine Urine Total Protein Salicylates Acetaminophen Crossmatch See Detail 10/18/20 10/19/20 10/19/20 Unknown 02:02 04:00 WBC 19.8 H RBC 2.95 L Hgb 6.9 L Hct 22.2 L MCV 75 L MCH 24 L MCHC 31 L RDW 33.6 H Plt Count 28 L [place] % (Auto) [place] # (Auto) Seg Neutrophils % Seg Neuts % (Manual) Lymphocytes % (Manual) Monocytes % (Manual) Basophils % (Manual) Nucleated RBC % Seg Neutrophils # Seg Neutrophils # Man Lymphocytes # (Manual) Monocytes # (Manual) Basophils # (Manual) PT INR APTT Fibrinogen D-Dimer ABG pH 7.234 L POC ABG pCO2 POC ABG pO2 53.9 L ABG Hemoglobin 8.9 L ABG Oxyhemoglobin 86.6 L ABG Sodium 118.1 L ABG Potassium ABG Chloride 94.0 L ABG Glucose 61 L Sodium Potassium Chloride Carbon Dioxide BUN Creatinine Glucose POC Glucose 64 L Lactic Acid Calcium Magnesium Iron Total Bilirubin Direct Bilirubin AST ALT Alkaline Phosphatase Ammonia CK-MB (CK-2) CK-MB (CK-2) Rel Index Total Protein Albumin Arterial Blood Glucose 61 L Arterial Blood Ionized Calcium 4.5 L Urine Creatinine Urine Total Protein Salicylates Acetaminophen Crossmatch 10/19/20 10/19/20 10/19/20 04:51 04:51 05:43 WBC 18.2 H RBC 3.26 L Hgb 7.9 L Hct 24.6 L MCV 76 L MCH 24 L MCHC RDW 30.7 H Plt Count 41 L [place] % (Auto) [place] # (Auto) Seg Neutrophils % Seg Neuts % (Manual) Lymphocytes % (Manual) Monocytes % (Manual) Basophils % (Manual) Nucleated RBC % Seg Neutrophils # Seg Neutrophils # Man Lymphocytes # (Manual) Monocytes # (Manual) Basophils # (Manual) PT INR APTT Fibrinogen D-Dimer ABG pH POC ABG pCO2 POC ABG pO2 ABG Hemoglobin ABG Oxyhemoglobin ABG Sodium ABG Potassium ABG Chloride ABG Glucose Sodium 122 L Potassium Chloride 94.6 L Carbon Dioxide 17 L BUN 33 H Creatinine 3.5 H Glucose 63 L POC Glucose 54 L Lactic Acid Calcium 7.3 L Magnesium Iron Total Bilirubin 1.50 H Direct Bilirubin 0.9 H AST ALT Alkaline Phosphatase 154 H Ammonia CK-MB (CK-2) CK-MB (CK-2) Rel Index Total Protein 4.2 L Albumin 1.9 L Arterial Blood Glucose Arterial Blood Ionized Calcium Urine Creatinine Urine Total Protein Salicylates Acetaminophen Crossmatch 10/19/20 10/19/20 10/19/20 11:23 11:45 14:24 WBC RBC Hgb Hct MCV MCH MCHC RDW Plt Count [place] % (Auto) [place] # (Auto) Seg Neutrophils % Seg Neuts % (Manual) Lymphocytes % (Manual) Monocytes % (Manual) Basophils % (Manual) Nucleated RBC % Seg Neutrophils # Seg Neutrophils # Man Lymphocytes # (Manual) Monocytes # (Manual) Basophils # (Manual) PT INR APTT Fibrinogen D-Dimer ABG pH POC ABG pCO2 POC ABG pO2 ABG Hemoglobin ABG Oxyhemoglobin ABG Sodium ABG Potassium ABG Chloride ABG Glucose Sodium Potassium Chloride Carbon Dioxide BUN Creatinine Glucose POC Glucose 47 L 117 H 47 L Lactic Acid Calcium Magnesium Iron Total Bilirubin Direct Bilirubin AST ALT Alkaline Phosphatase Ammonia CK-MB (CK-2) CK-MB (CK-2) Rel Index Total Protein Albumin Arterial Blood Glucose Arterial Blood Ionized Calcium Urine Creatinine Urine Total Protein Salicylates Acetaminophen Crossmatch 10/19/20 10/19/20 10/19/20 16:31 20:04 20:19 WBC RBC Hgb Hct MCV MCH MCHC RDW Plt Count [place] % (Auto) [place] # (Auto) Seg Neutrophils % Seg Neuts % (Manual) Lymphocytes % (Manual) Monocytes % (Manual) Basophils % (Manual) Nucleated RBC % Seg Neutrophils # Seg Neutrophils # Man Lymphocytes # (Manual) Monocytes # (Manual) Basophils # (Manual) PT INR APTT Fibrinogen D-Dimer ABG pH POC ABG pCO2 POC ABG pO2 ABG Hemoglobin ABG Oxyhemoglobin ABG Sodium ABG Potassium ABG Chloride ABG Glucose Sodium Potassium Chloride Carbon Dioxide BUN Creatinine Glucose 59 L POC Glucose 58 L 49 L Lactic Acid Calcium Magnesium Iron Total Bilirubin Direct Bilirubin AST ALT Alkaline Phosphatase Ammonia CK-MB (CK-2) CK-MB (CK-2) Rel Index Total Protein Albumin Arterial Blood Glucose Arterial Blood Ionized Calcium Urine Creatinine Urine Total Protein Salicylates Acetaminophen Crossmatch 10/20/20 10/20/20 10/20/20 00:17 03:59 08:43 WBC 13.1 H RBC 3.42 L Hgb 8.3 L Hct 25.3 L MCV 74 L MCH 24 L MCHC RDW 31.4 H Plt Count 35 L [place] % (Auto) [place] # (Auto) Seg Neutrophils % Seg Neuts % (Manual) Lymphocytes % (Manual) Monocytes % (Manual) Basophils % (Manual) Nucleated RBC % Seg Neutrophils # Seg Neutrophils # Man Lymphocytes # (Manual) Monocytes # (Manual) Basophils # (Manual) PT INR APTT Fibrinogen D-Dimer ABG pH POC ABG pCO2 POC ABG pO2 ABG Hemoglobin ABG Oxyhemoglobin ABG Sodium ABG Potassium ABG Chloride ABG Glucose Sodium Potassium Chloride Carbon Dioxide BUN Creatinine Glucose POC Glucose 29 L 47 L Lactic Acid Calcium Magnesium Iron Total Bilirubin Direct Bilirubin AST ALT Alkaline Phosphatase Ammonia CK-MB (CK-2) CK-MB (CK-2) Rel Index Total Protein Albumin Arterial Blood Glucose Arterial Blood Ionized Calcium Urine Creatinine Urine Total Protein Salicylates Acetaminophen Crossmatch 10/20/20 10/20/20 10/20/20 08:43 08:43 09:56 WBC RBC Hgb Hct MCV MCH MCHC RDW Plt Count [place] % (Auto) [place] # (Auto) Seg Neutrophils % Seg Neuts % (Manual) Lymphocytes % (Manual) Monocytes % (Manual) Basophils % (Manual) Nucleated RBC % Seg Neutrophils # Seg Neutrophils # Man Lymphocytes # (Manual) Monocytes # (Manual) Basophils # (Manual) PT 30.1 H INR 2.82 H APTT Fibrinogen D-Dimer ABG pH POC ABG pCO2 POC ABG pO2 ABG Hemoglobin ABG Oxyhemoglobin ABG Sodium ABG Potassium ABG Chloride ABG Glucose Sodium 119 L* Potassium Chloride 90.7 L Carbon Dioxide 20 L BUN 35 H Creatinine 3.3 H Glucose 57 L POC Glucose 61 L Lactic Acid Calcium 7.7 L Magnesium 1.30 L Iron Total Bilirubin 1.60 H Direct Bilirubin AST ALT Alkaline Phosphatase 152 H Ammonia CK-MB (CK-2) CK-MB (CK-2) Rel Index Total Protein 4.5 L Albumin 1.6 L Arterial Blood Glucose Arterial Blood Ionized Calcium Urine Creatinine Urine Total Protein Salicylates Acetaminophen Crossmatch 10/20/20 10/20/20 10/20/20 15:35 17:30 20:17 WBC RBC Hgb Hct MCV MCH MCHC RDW Plt Count [place] % (Auto) [place] # (Auto) Seg Neutrophils % Seg Neuts % (Manual) Lymphocytes % (Manual) Monocytes % (Manual) Basophils % (Manual) Nucleated RBC % Seg Neutrophils # Seg Neutrophils # Man Lymphocytes # (Manual) Monocytes # (Manual) Basophils # (Manual) PT INR APTT Fibrinogen D-Dimer ABG pH POC ABG pCO2 POC ABG pO2 ABG Hemoglobin ABG Oxyhemoglobin ABG Sodium ABG Potassium ABG Chloride ABG Glucose Sodium 121 L 120 L Potassium Chloride Carbon Dioxide BUN Creatinine Glucose POC Glucose 61 L Lactic Acid Calcium Magnesium Iron Total Bilirubin Direct Bilirubin AST ALT Alkaline Phosphatase Ammonia CK-MB (CK-2) CK-MB (CK-2) Rel Index Total Protein Albumin Arterial Blood Glucose Arterial Blood Ionized Calcium Urine Creatinine Urine Total Protein Salicylates Acetaminophen Crossmatch 10/20/20 10/20/20 10/21/20 23:00 23:37 01:00 WBC RBC Hgb Hct MCV MCH MCHC RDW Plt Count [place] % (Auto) [place] # (Auto) Seg Neutrophils % Seg Neuts % (Manual) Lymphocytes % (Manual) Monocytes % (Manual) Basophils % (Manual) Nucleated RBC % Seg Neutrophils # Seg Neutrophils # Man Lymphocytes # (Manual) Monocytes # (Manual) Basophils # (Manual) PT INR APTT Fibrinogen D-Dimer ABG pH POC ABG pCO2 POC ABG pO2 ABG Hemoglobin ABG Oxyhemoglobin ABG Sodium ABG Potassium ABG Chloride ABG Glucose Sodium 121 L Potassium Chloride Carbon Dioxide BUN Creatinine Glucose POC Glucose 33 L 36 L Lactic Acid Calcium Magnesium Iron Total Bilirubin Direct Bilirubin AST ALT Alkaline Phosphatase Ammonia CK-MB (CK-2) CK-MB (CK-2) Rel Index Total Protein Albumin Arterial Blood Glucose Arterial Blood Ionized Calcium Urine Creatinine Urine Total Protein Salicylates Acetaminophen Crossmatch 10/21/20 10/21/20 10/21/20 02:31 04:00 05:22 WBC RBC Hgb Hct MCV MCH MCHC RDW Plt Count [place] % (Auto) [place] # (Auto) Seg Neutrophils % Seg Neuts % (Manual) Lymphocytes % (Manual) Monocytes % (Manual) Basophils % (Manual) Nucleated RBC % Seg Neutrophils # Seg Neutrophils # Man Lymphocytes # (Manual) Monocytes # (Manual) Basophils # (Manual) PT INR APTT Fibrinogen D-Dimer ABG pH POC ABG pCO2 POC ABG pO2 66.6 L ABG Hemoglobin 8.7 L ABG Oxyhemoglobin 92.1 L ABG Sodium 117.9 L ABG Potassium 3.2 L ABG Chloride 93.0 L ABG Glucose Sodium Potassium Chloride Carbon Dioxide BUN Creatinine Glucose POC Glucose 51 L 64 L Lactic Acid Calcium Magnesium Iron Total Bilirubin Direct Bilirubin AST ALT Alkaline Phosphatase Ammonia CK-MB (CK-2) CK-MB (CK-2) Rel Index Total Protein Albumin Arterial Blood Glucose Arterial Blood Ionized Calcium 4.4 L Urine Creatinine Urine Total Protein Salicylates Acetaminophen Crossmatch 10/21/20 10/21/20 10/21/20 05:50 05:50 10:32 WBC 11.1 H RBC 3.27 L Hgb 7.9 L Hct 23.9 L MCV 73 L MCH 24 L MCHC RDW 31.8 H Plt Count 26 L [place] % (Auto) [place] # (Auto) Seg Neutrophils % Seg Neuts % (Manual) Lymphocytes % (Manual) Monocytes % (Manual) Basophils % (Manual) Nucleated RBC % Seg Neutrophils # Seg Neutrophils # Man Lymphocytes # (Manual) Monocytes # (Manual) Basophils # (Manual) PT INR APTT Fibrinogen D-Dimer ABG pH POC ABG pCO2 POC ABG pO2 ABG Hemoglobin ABG Oxyhemoglobin ABG Sodium ABG Potassium ABG Chloride ABG Glucose Sodium 122 L Potassium 3.4 L Chloride 91.1 L Carbon Dioxide BUN 38 H Creatinine 3.2 H Glucose 56 L POC Glucose 68 L Lactic Acid Calcium 7.8 L Magnesium 1.60 L Iron Total Bilirubin Direct Bilirubin AST ALT Alkaline Phosphatase Ammonia CK-MB (CK-2) CK-MB (CK-2) Rel Index Total Protein Albumin Arterial Blood Glucose Arterial Blood Ionized Calcium Urine Creatinine Urine Total Protein Salicylates Acetaminophen Crossmatch 10/21/20 10/21/20 10/21/20 14:05 17:15 18:41 WBC RBC Hgb Hct MCV MCH MCHC RDW Plt Count [place] % (Auto) [place] # (Auto) Seg Neutrophils % Seg Neuts % (Manual) Lymphocytes % (Manual) Monocytes % (Manual) Basophils % (Manual) Nucleated RBC % Seg Neutrophils # Seg Neutrophils # Man Lymphocytes # (Manual) Monocytes # (Manual) Basophils # (Manual) PT INR APTT Fibrinogen D-Dimer ABG pH POC ABG pCO2 POC ABG pO2 ABG Hemoglobin ABG Oxyhemoglobin ABG Sodium ABG Potassium ABG Chloride ABG Glucose Sodium Potassium Chloride Carbon Dioxide BUN Creatinine Glucose POC Glucose 61 L 53 L 110 H Lactic Acid Calcium Magnesium Iron Total Bilirubin Direct Bilirubin AST ALT Alkaline Phosphatase Ammonia CK-MB (CK-2) CK-MB (CK-2) Rel Index Total Protein Albumin Arterial Blood Glucose Arterial Blood Ionized Calcium Urine Creatinine Urine Total Protein Salicylates Acetaminophen Crossmatch 10/21/20 10/21/20 10/21/20 21:08 22:20 Unknown WBC RBC Hgb Hct MCV MCH MCHC RDW Plt Count [place] % (Auto) [place] # (Auto) Seg Neutrophils % Seg Neuts % (Manual) Lymphocytes % (Manual) Monocytes % (Manual) Basophils % (Manual) Nucleated RBC % Seg Neutrophils # Seg Neutrophils # Man Lymphocytes # (Manual) Monocytes # (Manual) Basophils # (Manual) PT INR APTT Fibrinogen D-Dimer ABG pH POC ABG pCO2 POC ABG pO2 ABG Hemoglobin ABG Oxyhemoglobin ABG Sodium ABG Potassium ABG Chloride ABG Glucose Sodium 123 L 125 L Potassium 3.2 L Chloride 94.1 L Carbon Dioxide BUN 40 H Creatinine 3.3 H Glucose 64 L POC Glucose 117 H Lactic Acid Calcium 7.6 L Magnesium Iron Total Bilirubin Direct Bilirubin AST ALT Alkaline Phosphatase Ammonia CK-MB (CK-2) CK-MB (CK-2) Rel Index Total Protein Albumin Arterial Blood Glucose Arterial Blood Ionized Calcium Urine Creatinine Urine Total Protein Salicylates Acetaminophen Crossmatch 10/21/20 10/21/20 10/22/20 Unknown Unknown 02:43 WBC RBC 3.40 L Hgb 8.4 L Hct 24.8 L MCV 73 L MCH 25 L MCHC RDW 31.5 H Plt Count 21 L [place] % (Auto) [place] # (Auto) Seg Neutrophils % Seg Neuts % (Manual) 83.0 H Lymphocytes % (Manual) 10.0 L Monocytes % (Manual) Basophils % (Manual) Nucleated RBC % 2.0 H Seg Neutrophils # Seg Neutrophils # Man 9.0 H Lymphocytes # (Manual) 1.1 L Monocytes # (Manual) Basophils # (Manual) PT 27.0 H INR 2.44 H APTT 61.4 H* Fibrinogen 482 H D-Dimer 1992.93 H ABG pH POC ABG pCO2 POC ABG pO2 ABG Hemoglobin ABG Oxyhemoglobin ABG Sodium ABG Potassium ABG Chloride ABG Glucose Sodium 122 L Potassium 3.1 L Chloride 92.9 L Carbon Dioxide BUN 44 H Creatinine 3.2 H Glucose POC Glucose Lactic Acid Calcium 7.8 L Magnesium Iron Total Bilirubin Direct Bilirubin AST ALT Alkaline Phosphatase Ammonia CK-MB (CK-2) CK-MB (CK-2) Rel Index Total Protein Albumin Arterial Blood Glucose Arterial Blood Ionized Calcium Urine Creatinine Urine Total Protein Salicylates Acetaminophen Crossmatch 10/22/20 10/22/20 10/22/20 04:00 06:00 20:00 WBC RBC 3.29 L Hgb 8.0 L Hct 24.3 L MCV 74 L MCH 24 L MCHC RDW 32.2 H Plt Count 21 L [place] % (Auto) [place] # (Auto) Seg Neutrophils % Seg Neuts % (Manual) Lymphocytes % (Manual) Monocytes % (Manual) Basophils % (Manual) Nucleated RBC % Seg Neutrophils # Seg Neutrophils # Man Lymphocytes # (Manual) Monocytes # (Manual) Basophils # (Manual) PT INR APTT Fibrinogen D-Dimer ABG pH POC ABG pCO2 29.1 L POC ABG pO2 64.1 L ABG Hemoglobin 8.2 L ABG Oxyhemoglobin 90.6 L ABG Sodium 118.8 L ABG Potassium ABG Chloride 96.0 L ABG Glucose 117 H Sodium 126 L Potassium Chloride 95.8 L Carbon Dioxide 21 L BUN 50 H Creatinine 3.4 H Glucose POC Glucose Lactic Acid Calcium 7.9 L Magnesium Iron Total Bilirubin Direct Bilirubin AST ALT Alkaline Phosphatase Ammonia CK-MB (CK-2) CK-MB (CK-2) Rel Index Total Protein Albumin Arterial Blood Glucose 117 H Arterial Blood Ionized Calcium Urine Creatinine Urine Total Protein Salicylates Acetaminophen Crossmatch 10/23/20 10/23/20 10/23/20 04:00 05:35 05:35 WBC RBC 2.94 L Hgb 7.3 L Hct 21.3 L MCV 72 L MCH 25 L MCHC RDW 32.3 H Plt Count 56 L D [place] % (Auto) [place] # (Auto) Seg Neutrophils % Seg Neuts % (Manual) 83.0 H Lymphocytes % (Manual) 9.0 L Monocytes % (Manual) Basophils % (Manual) Nucleated RBC % 3.0 H Seg Neutrophils # Seg Neutrophils # Man Lymphocytes # (Manual) 0.7 L Monocytes # (Manual) Basophils # (Manual) PT INR APTT Fibrinogen D-Dimer ABG pH POC ABG pCO2 29.0 L POC ABG pO2 ABG Hemoglobin 7.7 L ABG Oxyhemoglobin ABG Sodium 120.4 L ABG Potassium ABG Chloride 97.0 L ABG Glucose Sodium 128 L Potassium Chloride 96.7 L Carbon Dioxide BUN 56 H Creatinine 3.4 H Glucose POC Glucose Lactic Acid Calcium Magnesium Iron Total Bilirubin Direct Bilirubin AST ALT Alkaline Phosphatase Ammonia CK-MB (CK-2) CK-MB (CK-2) Rel Index Total Protein Albumin Arterial Blood Glucose Arterial Blood Ionized Calcium Urine Creatinine Urine Total Protein Salicylates Acetaminophen Crossmatch 10/23/20 10/24/20 10/24/20 21:01 03:00 05:27 WBC RBC 2.98 L Hgb 7.4 L Hct 21.8 L MCV 73 L MCH 25 L MCHC RDW 32.2 H Plt Count 56 L [place] % (Auto) [place] # (Auto) Seg Neutrophils % Seg Neuts % (Manual) Lymphocytes % (Manual) Monocytes % (Manual) Basophils % (Manual) Nucleated RBC % Seg Neutrophils # Seg Neutrophils # Man Lymphocytes # (Manual) Monocytes # (Manual) Basophils # (Manual) PT INR APTT Fibrinogen D-Dimer ABG pH 7.490 H POC ABG pCO2 26.8 L POC ABG pO2 ABG Hemoglobin 3.3 L ABG Oxyhemoglobin 83.6 L ABG Sodium 118.0 L ABG Potassium ABG Chloride 97.0 L ABG Glucose Sodium Potassium Chloride Carbon Dioxide BUN Creatinine Glucose POC Glucose > 600 H Lactic Acid Calcium Magnesium Iron Total Bilirubin Direct Bilirubin AST ALT Alkaline Phosphatase Ammonia CK-MB (CK-2) CK-MB (CK-2) Rel Index Total Protein Albumin Arterial Blood Glucose Arterial Blood Ionized Calcium 4.5 L Urine Creatinine Urine Total Protein Salicylates Acetaminophen Crossmatch 10/24/20 10/24/20 10/24/20 05:27 05:27 10:07 WBC RBC Hgb Hct MCV MCH MCHC RDW Plt Count [place] % (Auto) [place] # (Auto) Seg Neutrophils % Seg Neuts % (Manual) Lymphocytes % (Manual) Monocytes % (Manual) Basophils % (Manual) Nucleated RBC % Seg Neutrophils # Seg Neutrophils # Man Lymphocytes # (Manual) Monocytes # (Manual) Basophils # (Manual) PT 20.4 H INR 1.70 H APTT Fibrinogen D-Dimer ABG pH POC ABG pCO2 POC ABG pO2 ABG Hemoglobin ABG Oxyhemoglobin ABG Sodium ABG Potassium ABG Chloride ABG Glucose Sodium 123 L Potassium 3.5 L Chloride 93.3 L Carbon Dioxide 20 L BUN 66 H Creatinine 3.9 H Glucose POC Glucose 110 H Lactic Acid Calcium 8.1 L Magnesium Iron Total Bilirubin Direct Bilirubin AST 54 H ALT Alkaline Phosphatase 316 H Ammonia CK-MB (CK-2) CK-MB (CK-2) Rel Index Total Protein 5.1 L Albumin 1.7 L Arterial Blood Glucose Arterial Blood Ionized Calcium Urine Creatinine Urine Total Protein Salicylates Acetaminophen Crossmatch 10/24/20 10/24/20 10/24/20 18:24 23:11 23:28 WBC RBC Hgb Hct MCV MCH MCHC RDW Plt Count [place] % (Auto) [place] # (Auto) Seg Neutrophils % Seg Neuts % (Manual) Lymphocytes % (Manual) Monocytes % (Manual) Basophils % (Manual) Nucleated RBC % Seg Neutrophils # Seg Neutrophils # Man Lymphocytes # (Manual) Monocytes # (Manual) Basophils # (Manual) PT INR APTT Fibrinogen D-Dimer ABG pH POC ABG pCO2 POC ABG pO2 ABG Hemoglobin ABG Oxyhemoglobin ABG Sodium ABG Potassium ABG Chloride ABG Glucose Sodium Potassium Chloride Carbon Dioxide BUN Creatinine Glucose 142 H POC Glucose 121 H 137 H Lactic Acid Calcium Magnesium Iron Total Bilirubin Direct Bilirubin AST ALT Alkaline Phosphatase Ammonia CK-MB (CK-2) CK-MB (CK-2) Rel Index Total Protein Albumin Arterial Blood Glucose Arterial Blood Ionized Calcium Urine Creatinine Urine Total Protein Salicylates Acetaminophen Crossmatch 10/25/20 10/25/20 10/25/20 05:22 05:22 05:28 WBC RBC Hgb Hct MCV MCH MCHC RDW Plt Count [place] % (Auto) [place] # (Auto) Seg Neutrophils % Seg Neuts % (Manual) Lymphocytes % (Manual) Monocytes % (Manual) Basophils % (Manual) Nucleated RBC % Seg Neutrophils # Seg Neutrophils # Man Lymphocytes # (Manual) Monocytes # (Manual) Basophils # (Manual) PT INR APTT Fibrinogen D-Dimer ABG pH POC ABG pCO2 POC ABG pO2 ABG Hemoglobin ABG Oxyhemoglobin ABG Sodium ABG Potassium ABG Chloride ABG Glucose Sodium 133 L D Potassium Chloride Carbon Dioxide BUN 55 H Creatinine 3.1 H Glucose 127 H 127 H POC Glucose 121 H Lactic Acid Calcium Magnesium Iron Total Bilirubin Direct Bilirubin AST ALT Alkaline Phosphatase Ammonia CK-MB (CK-2) CK-MB (CK-2) Rel Index Total Protein Albumin Arterial Blood Glucose Arterial Blood Ionized Calcium Urine Creatinine Urine Total Protein Salicylates Acetaminophen Crossmatch 10/25/20 10/25/20 10/25/20 08:35 11:39 15:09 WBC RBC 2.84 L Hgb 7.0 L Hct 20.9 L MCV 74 L MCH 25 L MCHC RDW 30.8 H Plt Count 101 L [place] % (Auto) [place] # (Auto) Seg Neutrophils % Seg Neuts % (Manual) Lymphocytes % (Manual) Monocytes % (Manual) Basophils % (Manual) Nucleated RBC % Seg Neutrophils # Seg Neutrophils # Man Lymphocytes # (Manual) Monocytes # (Manual) Basophils # (Manual) PT INR APTT Fibrinogen D-Dimer ABG pH POC ABG pCO2 POC ABG pO2 ABG Hemoglobin ABG Oxyhemoglobin ABG Sodium ABG Potassium ABG Chloride ABG Glucose Sodium Potassium Chloride Carbon Dioxide BUN Creatinine Glucose 179 H POC Glucose 165 H Lactic Acid Calcium Magnesium Iron Total Bilirubin Direct Bilirubin AST ALT Alkaline Phosphatase Ammonia CK-MB (CK-2) CK-MB (CK-2) Rel Index Total Protein Albumin Arterial Blood Glucose Arterial Blood Ionized Calcium Urine Creatinine Urine Total Protein Salicylates Acetaminophen Crossmatch 10/25/20 10/25/20 10/25/20 15:15 17:51 23:10 WBC RBC Hgb Hct MCV MCH MCHC RDW Plt Count [place] % (Auto) [place] # (Auto) Seg Neutrophils % Seg Neuts % (Manual) Lymphocytes % (Manual) Monocytes % (Manual) Basophils % (Manual) Nucleated RBC % Seg Neutrophils # Seg Neutrophils # Man Lymphocytes # (Manual) Monocytes # (Manual) Basophils # (Manual) PT INR APTT Fibrinogen D-Dimer ABG pH 7.478 H POC ABG pCO2 POC ABG pO2 39.0 L ABG Hemoglobin 7.7 L ABG Oxyhemoglobin 72.9 L ABG Sodium 133.3 L ABG Potassium ABG Chloride ABG Glucose 189 H Sodium Potassium Chloride Carbon Dioxide BUN Creatinine Glucose POC Glucose 132 H 140 H Lactic Acid Calcium Magnesium Iron Total Bilirubin Direct Bilirubin AST ALT Alkaline Phosphatase Ammonia CK-MB (CK-2) CK-MB (CK-2) Rel Index Total Protein Albumin Arterial Blood Glucose 189 H Arterial Blood Ionized Calcium 4.4 L Urine Creatinine Urine Total Protein Salicylates Acetaminophen Crossmatch 10/26/20 10/26/20 10/26/20 04:30 11:00 11:28 WBC RBC 2.94 L Hgb 7.3 L Hct 22.9 L MCV 76 L MCH 25 L MCHC RDW 29.8 H Plt Count 138 L [place] % (Auto) [place] # (Auto) Seg Neutrophils % Seg Neuts % (Manual) Lymphocytes % (Manual) Monocytes % (Manual) Basophils % (Manual) Nucleated RBC % Seg Neutrophils # Seg Neutrophils # Man Lymphocytes # (Manual) Monocytes # (Manual) Basophils # (Manual) PT INR APTT Fibrinogen D-Dimer ABG pH POC ABG pCO2 POC ABG pO2 ABG Hemoglobin ABG Oxyhemoglobin ABG Sodium ABG Potassium ABG Chloride ABG Glucose Sodium 136 L Potassium Chloride Carbon Dioxide BUN 44 H Creatinine 2.7 H Glucose POC Glucose 137 H Lactic Acid Calcium 8.1 L Magnesium Iron Total Bilirubin Direct Bilirubin AST ALT Alkaline Phosphatase Ammonia CK-MB (CK-2) CK-MB (CK-2) Rel Index Total Protein Albumin Arterial Blood Glucose Arterial Blood Ionized Calcium Urine Creatinine Urine Total Protein Salicylates Acetaminophen Crossmatch 10/26/20 10/26/20 10/27/20 17:06 23:11 04:30 WBC RBC Hgb Hct MCV MCH MCHC RDW Plt Count [place] % (Auto) [place] # (Auto) Seg Neutrophils % Seg Neuts % (Manual) Lymphocytes % (Manual) Monocytes % (Manual) Basophils % (Manual) Nucleated RBC % Seg Neutrophils # Seg Neutrophils # Man Lymphocytes # (Manual) Monocytes # (Manual) Basophils # (Manual) PT INR APTT Fibrinogen D-Dimer ABG pH POC ABG pCO2 POC ABG pO2 ABG Hemoglobin ABG Oxyhemoglobin ABG Sodium ABG Potassium ABG Chloride ABG Glucose Sodium Potassium Chloride Carbon Dioxide BUN 38 H Creatinine 2.5 H Glucose 108 H POC Glucose 116 H 108 H Lactic Acid Calcium Magnesium Iron Total Bilirubin Direct Bilirubin AST ALT Alkaline Phosphatase Ammonia CK-MB (CK-2) CK-MB (CK-2) Rel Index Total Protein Albumin Arterial Blood Glucose Arterial Blood Ionized Calcium Urine Creatinine Urine Total Protein Salicylates Acetaminophen Crossmatch 10/27/20 10/27/20 10/27/20 04:30 04:57 12:50 WBC RBC 2.79 L Hgb 6.9 L Hct 21.3 L MCV 76 L MCH 25 L MCHC RDW 30.2 H Plt Count [place] % (Auto) [place] # (Auto) Seg Neutrophils % Seg Neuts % (Manual) Lymphocytes % (Manual) Monocytes % (Manual) Basophils % (Manual) Nucleated RBC % Seg Neutrophils # Seg Neutrophils # Man Lymphocytes # (Manual) Monocytes # (Manual) Basophils # (Manual) PT INR APTT Fibrinogen D-Dimer ABG pH POC ABG pCO2 POC ABG pO2 ABG Hemoglobin ABG Oxyhemoglobin ABG Sodium ABG Potassium ABG Chloride ABG Glucose Sodium Potassium Chloride Carbon Dioxide BUN Creatinine Glucose POC Glucose 106 H Lactic Acid Calcium Magnesium Iron Total Bilirubin Direct Bilirubin AST ALT Alkaline Phosphatase Ammonia CK-MB (CK-2) CK-MB (CK-2) Rel Index Total Protein Albumin Arterial Blood Glucose Arterial Blood Ionized Calcium Urine Creatinine Urine Total Protein Salicylates Acetaminophen Crossmatch See Detail 10/27/20 10/27/20 10/28/20 17:29 23:14 04:30 WBC 12.2 H RBC 3.07 L Hgb 7.8 L Hct 24.3 L MCV 79 L MCH 25 L MCHC RDW 29.5 H Plt Count [place] % (Auto) [place] # (Auto) Seg Neutrophils % Seg Neuts % (Manual) Lymphocytes % (Manual) Monocytes % (Manual) Basophils % (Manual) Nucleated RBC % Seg Neutrophils # Seg Neutrophils # Man Lymphocytes # (Manual) Monocytes # (Manual) Basophils # (Manual) PT INR APTT Fibrinogen D-Dimer ABG pH POC ABG pCO2 POC ABG pO2 ABG Hemoglobin ABG Oxyhemoglobin ABG Sodium ABG Potassium ABG Chloride ABG Glucose Sodium Potassium Chloride Carbon Dioxide BUN Creatinine Glucose POC Glucose 127 H 121 H Lactic Acid Calcium Magnesium Iron Total Bilirubin Direct Bilirubin AST ALT Alkaline Phosphatase Ammonia CK-MB (CK-2) CK-MB (CK-2) Rel Index Total Protein Albumin Arterial Blood Glucose Arterial Blood Ionized Calcium Urine Creatinine Urine Total Protein Salicylates Acetaminophen Crossmatch 10/28/20 10/28/20 10/28/20 04:30 11:26 23:15 WBC RBC Hgb Hct MCV MCH MCHC RDW Plt Count [place] % (Auto) [place] # (Auto) Seg Neutrophils % Seg Neuts % (Manual) Lymphocytes % (Manual) Monocytes % (Manual) Basophils % (Manual) Nucleated RBC % Seg Neutrophils # Seg Neutrophils # Man Lymphocytes # (Manual) Monocytes # (Manual) Basophils # (Manual) PT INR APTT Fibrinogen D-Dimer ABG pH POC ABG pCO2 POC ABG pO2 ABG Hemoglobin ABG Oxyhemoglobin ABG Sodium ABG Potassium ABG Chloride ABG Glucose Sodium Potassium 3.5 L Chloride Carbon Dioxide BUN 33 H Creatinine 2.2 H Glucose POC Glucose 127 H 111 H Lactic Acid Calcium Magnesium Iron Total Bilirubin Direct Bilirubin AST ALT Alkaline Phosphatase Ammonia CK-MB (CK-2) CK-MB (CK-2) Rel Index Total Protein Albumin Arterial Blood Glucose Arterial Blood Ionized Calcium Urine Creatinine Urine Total Protein Salicylates Acetaminophen Crossmatch 10/29/20 10/29/20 10/29/20 05:32 08:19 09:21 WBC 12.0 H RBC 3.03 L Hgb 7.7 L Hct 23.8 L MCV 78 L MCH 25 L MCHC RDW 30.1 H Plt Count Pacific % (Auto) [place] # (Auto) Seg Neutrophils % Seg Neuts % (Manual) Lymphocytes % (Manual) Monocytes % (Manual) Basophils % (Manual) Nucleated RBC % Seg Neutrophils # Seg Neutrophils # Man Lymphocytes # (Manual) Monocytes # (Manual) Basophils # (Manual) PT INR APTT Fibrinogen D-Dimer ABG pH POC ABG pCO2 POC ABG pO2 ABG Hemoglobin ABG Oxyhemoglobin ABG Sodium ABG Potassium ABG Chloride ABG Glucose Sodium Potassium Chloride 97.7 L Carbon Dioxide 36 H BUN 36 H Creatinine 2.3 H Glucose 116 H POC Glucose 109 H Lactic Acid Calcium 8.2 L Magnesium Iron Total Bilirubin Direct Bilirubin AST ALT Alkaline Phosphatase Ammonia CK-MB (CK-2) CK-MB (CK-2) Rel Index Total Protein Albumin Arterial Blood Glucose Arterial Blood Ionized Calcium Urine Creatinine Urine Total Protein Salicylates Acetaminophen Crossmatch Chest x-ray: image reviewed Allied health notes reviewed: RT
[2020-10-29] MEDS ORDERED: fentaNYL 100 MCG/2 ML INJ IV ONE (14:27)
[2020-10-29] MEDS: GLYCOPYRROLATE 2 MG TAB PO SCH (20:40)
[2020-10-30] MEDS: MIDODRINE 5 MG TAB PO SCH ×3 (02:04→17:19)
[2020-10-30 05:19] LABS: Hemoglobin 7.8 gm/dl (11.8-15.2); Mean Corpuscular HGB Conc 32 % (32-34); Mean Corpuscular Volume 80 fl (84-94); Platelet Count 317 K/mm3 (140-440); Red Blood Count 3.01 M/mm3 (3.65-5.03)
[2020-10-30 05:21] LABS: Red Cell Distribution Width 29.3 % (13.2-15.2)
[2020-10-30 05:32] LABS: Calcium 7.9 mg/dL (8.4-10.2)
--- NOTE | 2020-10-30 10:28 | Progress Note ---
Assessment and Plan Assessment: Acute encephalopathy Hyponatremia Hypothermia, resolved Pulmonary infiltrate in right lung on CXR Atherosclerotic cerebrovascular disease Severe anemia -possible GI bleed Severe protein-calorie malnutrition Acute Renal Failure Hypokalemia Plan: -On daily HD via vasc cath for UF and volume overload -Serum creatinine 3.2 today, yesterday's was 2.3. -Sodium level 136 today -Echo done 10/04/20 showed LVEF 25-30% -S/P Dobutamine drip and Lasix drip -Renal ultrasound- no hydronephrosis -Avoid nephrotoxic agents -Obtain daily weights -Monitor I/O's daily -Monitor renal function closely -Plan of care reviewed by Dr. Cam Subjective Date of service: 10/30/20 Principal diagnosis: Ac hypoxemic resp failure; Pneumonia; BETSY; Ac. encephalopathy Interval history: Patient intubated. On daily HD. Objective - Vital Signs Vital signs: Vital Signs - 12hr 10/29/20 10/29/20 10/29/20 22:31 23:00 23:12 Temperature Pulse Rate 106 H 105 H 110 H Pulse Rate [ From Monitor] Respiratory 22 42 H Rate Blood Pressure 131/84 127/88 131/84 O2 Sat by Pulse 93 90 94 Oximetry O2 Sat by Pulse Oximetry [ Anterior Bilateral Throughout] 10/29/20 10/30/20 10/30/20 23:30 00:00 00:01 Temperature 98.6 F Pulse Rate 105 H 108 H 112 H Pulse Rate [ 108 H From Monitor] Respiratory 24 22 23 Rate Blood Pressure 129/77 141/75 O2 Sat by Pulse 92 96 92 Oximetry O2 Sat by Pulse Oximetry [ Anterior Bilateral Throughout] 10/30/20 10/30/20 10/30/20 00:31 01:01 01:31 Temperature Pulse Rate 107 H 147 H 110 H Pulse Rate [ From Monitor] Respiratory 20 17 23 Rate Blood Pressure 123/77 132/84 113/76 O2 Sat by Pulse 95 69 L 87 Oximetry O2 Sat by Pulse Oximetry [ Anterior Bilateral Throughout] 10/30/20 10/30/20 10/30/20 02:00 02:31 03:00 Temperature Pulse Rate 114 H 102 H 97 H Pulse Rate [ From Monitor] Respiratory 24 22 26 H Rate Blood Pressure 112/70 93/49 93/58 O2 Sat by Pulse 93 95 91 Oximetry O2 Sat by Pulse Oximetry [ Anterior Bilateral Throughout] 10/30/20 10/30/20 10/30/20 03:23 03:30 04:00 Temperature 98.6 F Pulse Rate 110 H 104 H Pulse Rate [ 21 L From Monitor] Respiratory 23 23 Rate Blood Pressure 91/52 89/47 O2 Sat by Pulse 94 98 Oximetry O2 Sat by Pulse Oximetry [ Anterior Bilateral Throughout] 10/30/20 10/30/20 10/30/20 04:30 05:01 05:11 Temperature Pulse Rate 110 H 107 H 110 H Pulse Rate [ From Monitor] Respiratory 21 19 Rate Blood Pressure 87/53 96/51 87/53 O2 Sat by Pulse 99 98 98 Oximetry O2 Sat by Pulse Oximetry [ Anterior Bilateral Throughout] 10/30/20 10/30/20 10/30/20 05:30 05:50 06:00 Temperature 97.2 F L Pulse Rate 97 H 104 H 99 H Pulse Rate [ From Monitor] Respiratory 22 22 20 Rate Blood Pressure 95/49 95/49 88/50 O2 Sat by Pulse 98 98 Oximetry O2 Sat by Pulse 99 Oximetry [ Anterior Bilateral Throughout] 10/30/20 10/30/20 10/30/20 06:15 06:30 06:45 Temperature Pulse Rate 107 H 105 H 99 H Pulse Rate [ From Monitor] Respiratory 15 Rate Blood Pressure 90/52 101/56 97/48 O2 Sat by Pulse 100 Oximetry O2 Sat by Pulse Oximetry [ Anterior Bilateral Throughout] 10/30/20 10/30/20 10/30/20 07:00 07:15 07:30 Temperature Pulse Rate 95 H 60 101 H Pulse Rate [ From Monitor] Respiratory 22 12 Rate Blood Pressure 96/52 84/54 85/53 O2 Sat by Pulse 99 99 Oximetry O2 Sat by Pulse Oximetry [ Anterior Bilateral Throughout] 10/30/20 10/30/20 10/30/20 07:45 08:00 08:13 Temperature 97.4 F L Pulse Rate 96 H 108 H 89 Pulse Rate [ From Monitor] Respiratory Rate Blood Pressure 95/60 88/60 88/60 O2 Sat by Pulse 96 Oximetry O2 Sat by Pulse Oximetry [ Anterior Bilateral Throughout] 10/30/20 10/30/20 10/30/20 08:15 08:30 08:45 Temperature Pulse Rate 108 H 101 H 107 H Pulse Rate [ From Monitor] Respiratory Rate Blood Pressure 99/57 92/52 97/50 O2 Sat by Pulse Oximetry O2 Sat by Pulse Oximetry [ Anterior Bilateral Throughout] - General Appearance General appearance: sedated on ventilator, intubated EENT: ATNC Neck: no JVD Respiratory: Present: Decreased Breath Sounds Cardiology: S1S2 Gastrointestinal: normoactive bowel sounds Integumentary: warm and dry Neurologic: other (Sedated and intubated) Musculoskeletal: joint swelling - Lab 10/30/20 04:46 10/30/20 04:46 Most recent lab results ABG pH 7.478 (7.320-7.450) H 10/25/20 15:15 ABG O2 Saturation 73.5 (0-100) 10/25/20 15:15 Calcium 7.9 mg/dL (8.4-10.2) L 10/30/20 04:46 Phosphorus 2.80 mg/dL (2.5-4.5) 10/23/20 05:35 Magnesium 2.10 mg/dL (1.7-2.3) 10/23/20 05:35 Urine Creatinine 144.2 mg/dL (0.1-20.0) H 10/14/20 Unknown Urine Sodium 10 mmol/L 10/14/20 Unknown Urine Total Protein 97 mg/dL (5-11.8) H 10/14/20 Unknown Medications & Allergies - Medications Allergies/Adverse Reactions: Allergies No Known Allergies Allergy (Unverified 10/03/20 12:27) Home Medications: Home Medications Medication Instructions Recorded Confirmed Last Taken Type Unobtainable 10/10/20 10/10/20 Unknown History Active Medications: Generic Name Dose Route Start Last Admin Trade Name Freq PRN Reason Stop Dose Admin Acetaminophen 650 mg 10/03/20 02:10 10/06/20 15:28 Acetaminophen 325 Mg Tab PO 650 mg Q4H PRN Administration Pain MILD(1-3)/Fever >100.5/ROMERO Al Hydrox/Mg Hydrox/Simethicone 30 ml 10/03/20 02:10 Alum-Mag Hydroxide-Simethicone [id number]/5ml Oral Liqd 30 Ml PO Q4H PRN Indigestion Amiodarone HCl 200 mg 10/30/20 10:00 Amiodarone 200 Mg Tab PO BID JOSE Lipase/Protease/Amylase 1 each 10/03/20 16:51 Lipase 10,500/Protease 25,000/Amylase 43,750 (Units) Dr Reis FEEDTUBE PRN PRN For Clogged Feeding Tube Dextrose 50 ml 10/16/20 12:42 10/21/20 17:39 Dextrose 50% In Water (25gm) 50 Ml Syringe IV 50 ml Q30MIN PRN Administration Hypoglycemia Protocol Fentanyl 50 mcg 10/22/20 10:00 10/28/20 08:56 Fentanyl 100 Mcg/2 Ml Inj IV 50 mcg Q4HR PRN Administration Pain , Severe (7-10) Ferrous Sulfate 308 mg 10/16/20 10:00 10/29/20 09:31 Ferrous Sulfate 308 Mg (62mg Elemental Iron) / 7 Ml Elixir FEEDTUBE 308 mg DAILY JOSE Administration Folic Acid 1 mg 10/03/20 10:00 10/29/20 09:31 Folic Acid 1 Mg Tab PO 1 mg QDAY JOSE Administration Glycopyrrolate 2 mg 10/29/20 20:00 10/29/20 20:40 Glycopyrrolate 2 Mg Tab PO 2 mg TID JOSE Administration Levetiracetam 250 mg/ Dextrose 102.5 mls @ 400 mls/hr 10/10/20 22:00 10/29/20 21:28 IV 10/30/20 12:00 400 mls/hr Q12HR JOSE Administration NORepinephrine/NS 8 MG-250 ML 8 mg in 250 mls @ 3.75 mls/hr 10/16/20 19:00 10/21/20 16:56 Norepinephrine/Ns 8 Mg-250 Ml (Double Conc) IV 0 mcg/min TITRATE JOSE 0 mls/hr Titration Protocol 2 MCG/MIN Levetiracetam 250 mg 10/30/20 22:00 Levetiracetam 500 Mg/5 Ml Oral Liqd PO BID JOSE Magnesium Hydroxide 30 ml 10/03/20 02:10 Magnesium Hydroxide (Mom) Oral Liqd Udc PO Q4H PRN Constipation Midodrine 10 mg 10/24/20 18:00 10/30/20 02:04 Midodrine 5 Mg Tab PO Not Given Q8H JOSE Pantoprazole Sodium 40 mg 10/04/20 15:00 10/29/20 09:31 Pantoprazole 40 Mg Inj IV 40 mg QDAY JOSE Administration Promethazine HCl 25 mg 10/03/20 02:10 Promethazine 25 Mg Rect Supp [place] Q6H PRN N/V IF NPO AND NO IV ACCESS Scopolamine 1 each 11/01/20 10:00 Scopolamine Transdermal Patch 72 Hr TD Q3D JOSE Senna 8.6 mg 10/03/20 02:10 Sennosides 8.6 Mg Tab PO Q12HR PRN Constipation Simple Syrup 15 ml 10/03/20 16:51 10/19/20 02:08 Simple Syrup 15 Ml FEEDTUBE 15 ml PRN PRN Administration Hypoglycemia Simple Syrup 30 ml 10/03/20 16:51 10/16/20 22:02 Simple Syrup 15 Ml FEEDTUBE 30 ml PRN PRN Administration Hypoglycemia Sodium Bicarbonate 325 mg 10/03/20 16:51 Sodium Bicarbonate 325 Mg Tab FEEDTUBE PRN PRN For Clogged Feeding Tube
[2020-10-30] MEDS: levETIRAcetam 250 MG in DEXTROSE 5% IN WATER 100 ML IV SCH (10:34)
[2020-10-30] MEDS: FERROUS SULFATE 308 MG (62mg Elemental Iron) / 7 ML ELIXIR FEEDTUBE SCH (10:34)
[2020-10-30] MEDS: MULTIVITAMIN / MINERAL ORAL LIQUID 15 ML PO SCH (10:34)
[2020-10-30] MEDS: PANTOPRAZOLE 40 MG INJ IV SCH (10:35)
[2020-10-30] MEDS: FOLIC ACID 1 MG TAB PO SCH (10:35)
[2020-10-30] MEDS: GLYCOPYRROLATE 2 MG TAB PO SCH ×3 (10:35→19:59)
--- NOTE | 2020-10-30 10:40 | Progress Note ---
Assessment and Plan Acute hypoxemic respiratory failure Bilateral pneumonia Bilateral pleural effusions Bilateral pulmonary edema Acute kidney injury Acute encephalopathy Severe protein calorie malnutrition Oropharyngeal dysphagia Anemia that is microcytic Oropharyngeal dysphagia Thrombocytopenia, resolved -Continue with supportive HD -Continue to monitor off antibiotics, trend WCC and temperature curve -Daily SBT as tolerated -Continue Scopolamine and Robinul for secretion management -CXR, ABG as clinically indicated -Start VTE prophylaxis dosing, platelets have recovered Subcut heparin -Discuss with family for trach and PEG, consult general surgery - VAP bundle addressed, aspiration precautions (HOB > 40 degrees) -Titrate supplemental oxygen to keep SpO2 88-90% -Keep negative fluid balance as tolerated by hemodynamics and renal function to help facilitate weaning trials -HD/UF per Renal, - continue glycemic control for target BG 140-180 mg while critically ill; avoid hypoglycemia - bronchodilators with pulmonary hygiene per RT - avoid nephrotoxins, renally dose all medications - prn analgesia per pain score - Maintenance of sleep-wake cycle, avoid delirium - supportive transfusions for serum Hgb < 7.0g/dl -Enteric nutritional support at goal -Stress ulcer prophylaxis-Pantoprazole - continue mobility , off loading, frequent turning per facility protocols for pressure ulcer prevention - Monitor hemodynamics closely, continue with Midodrine fro blood pressure support - continue other care per attending / other consultants COVID SPECIFIC INTERVENTIONS -COVID-19 test negative CONDITION: CRITICAL PROGNOSIS: GUARDED CODE STATUS: FULL CODE The high probability of a clinically significant, sudden or life-threatening deterioration of the [respiratory, cardiovascular, & neurologic] system(s) required my full and direct attention, intervention and personal management. The aggregate critical care time was [33] minutes without overlap. Time includes spent on; [x] Data Review and interpretation [x] Patient assessment and monitoring of vital signs [x] Documentation [x] Medication orders and management Subjective Date of service: 10/30/20 Principal diagnosis: Ac hypoxemic resp failure; Pneumonia; BETSY; Ac. encephal opathy Interval history: Patient is seen today for: Acute hypoxemic respiratory failure; Pneumonia; Pleural effusions; BETSY; Acute encephalopathy; Severe protein calorie malnutrition Seen and examined at bedside; 24hour events reviewed; nursing and respiratory care staff consulted; no adverse overnight events reported to me; resting in bed; remains on MVS- low settings; off all vasopressors, Midodrine held this morning by night staff. Currently on HD with hypotension- Midodrine to be given. Remains off sedation; More awake and alert, appears to be tracking voice. No fevers, no vomiting, tolerating tube feeding On going oral secretions Objective Vital Signs - 12hr 10/29/20 10/29/20 10/29/20 23:00 23:12 23:30 Temperature Pulse Rate 105 H 110 H 105 H Pulse Rate [ From Monitor] Respiratory 42 H 24 Rate Blood Pressure 127/88 131/84 129/77 O2 Sat by Pulse 90 94 92 Oximetry O2 Sat by Pulse Oximetry [ Anterior Bilateral Throughout] 10/30/20 10/30/20 10/30/20 00:00 00:01 00:31 Temperature 98.6 F Pulse Rate 108 H 112 H 107 H Pulse Rate [ 108 H From Monitor] Respiratory 22 23 20 Rate Blood Pressure 141/75 123/77 O2 Sat by Pulse 96 92 95 Oximetry O2 Sat by Pulse Oximetry [ Anterior Bilateral Throughout] 10/30/20 10/30/20 10/30/20 01:01 01:31 02:00 Temperature Pulse Rate 147 H 110 H 114 H Pulse Rate [ From Monitor] Respiratory 17 23 24 Rate Blood Pressure 132/84 113/76 112/70 O2 Sat by Pulse 69 L 87 93 Oximetry O2 Sat by Pulse Oximetry [ Anterior Bilateral Throughout] 10/30/20 10/30/20 10/30/20 02:31 03:00 03:23 Temperature 98.6 F Pulse Rate 102 H 97 H Pulse Rate [ From Monitor] Respiratory 22 26 H Rate Blood Pressure 93/49 93/58 O2 Sat by Pulse 95 91 Oximetry O2 Sat by Pulse Oximetry [ Anterior Bilateral Throughout] 10/30/20 10/30/20 10/30/20 03:30 04:00 04:30 Temperature Pulse Rate 110 H 104 H 110 H Pulse Rate [ 21 L From Monitor] Respiratory 23 23 21 Rate Blood Pressure 91/52 89/47 87/53 O2 Sat by Pulse 94 98 99 Oximetry O2 Sat by Pulse Oximetry [ Anterior Bilateral Throughout] 10/30/20 10/30/20 10/30/20 05:01 05:11 05:30 Temperature Pulse Rate 107 H 110 H 97 H Pulse Rate [ From Monitor] Respiratory 19 22 Rate Blood Pressure 96/51 87/53 95/49 O2 Sat by Pulse 98 98 98 Oximetry O2 Sat by Pulse Oximetry [ Anterior Bilateral Throughout] 10/30/20 10/30/2010/30/21 05:50 06:00 06:15 Temperature 97.2 F L Pulse Rate 104 H 99 H 107 H Pulse Rate [ From Monitor] Respiratory 22 20 Rate Blood Pressure 95/49 88/50 90/52 O2 Sat by Pulse 98 Oximetry O2 Sat by Pulse 99 Oximetry [ Anterior Bilateral Throughout] 10/30/20 10/30/20 10/30/20 06:30 06:45 07:00 Temperature Pulse Rate 105 H 99 H 95 H Pulse Rate [ From Monitor] Respiratory 15 22 Rate Blood Pressure 101/56 97/48 96/52 O2 Sat by Pulse 100 99 Oximetry O2 Sat by Pulse Oximetry [ Anterior Bilateral Throughout] 10/30/20 10/30/20 10/30/20 07:15 07:30 07:45 Temperature Pulse Rate 60 101 H 96 H Pulse Rate [ From Monitor] Respiratory 12 Rate Blood Pressure 84/54 85/53 95/60 O2 Sat by Pulse 99 Oximetry O2 Sat by Pulse Oximetry [ Anterior Bilateral Throughout] 10/30/20 10/30/20 10/30/20 08:00 08:13 08:15 Temperature 97.4 F L Pulse Rate 108 H 89 108 H Pulse Rate [ From Monitor] Respiratory Rate Blood Pressure 88/60 88/60 99/57 O2 Sat by Pulse 96 Oximetry O2 Sat by Pulse Oximetry [ Anterior Bilateral Throughout] 10/30/20 10/30/20 08:30 08:45 Temperature Pulse Rate 101 H 107 H Pulse Rate [ From Monitor] Respiratory Rate Blood Pressure 92/52 97/50 O2 Sat by Pulse Oximetry O2 Sat by Pulse Oximetry [ Anterior Bilateral Throughout] Constitutional: no acute distress, alert, other (elderly and chronically ill looking male with mildly increased respiratory effort at rest on MVS) Eyes: non-icteric, injected ENT: oropharynx dry, other (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, RIJ HD catheter) Neck: supple, no lymphadenopathy, no JVD, other (RIJ Vascath) Effort: mildly labored Ascultation: Bilateral: diminished breath sounds, rhonchi Percussion: Bilateral: not dull Cardiovascular: irregular rhythm (irregularly irregular) Gastrointestinal: normoactive bowel sounds, soft, non-tender, non-distended, other (Jackson catheter) Integumentary: normal Extremities: no cyanosis, pulses normal, no ischemia or petechiae, edema (1+) Neurologic: pupils equal and round, other (tracking voice) Psychiatric: other (appears agitated today) CBC and BMP: 10/30/20 04:46 10/30/20 04:46 ABG, PT/INR, D-dimer: ABG ABG pH 7.478 (7.320-7.450) H 10/25/20 15:15 POC ABG pCO2 39.3 mmHg (32.0-48.0) 10/25/20 15:15 POC ABG pO2 39.0 mmHg (83-108) L 10/25/20 15:15 POC ABG HCO3 28.5 10/25/20 15:15 ABG O2 Saturation 73.5 (0-100) 10/25/20 15:15 PT/INR, D-dimer PT 20.4 Sec. (12.2-14.9) H 10/24/20 05:27 INR 1.70 (0.87-1.13) H 10/24/20 05:27 D-Dimer 1992.93 ng/mlDDU (0-234) H 10/21/20 Unknown Abnormal lab findings: Abnormal Labs 10/02/20 10/02/20 10/02/20 23:17 23:17 23:17 WBC RBC 3.31 L Hgb 6.7 L Hct 21.8 L MCV 66 L MCH 20 L MCHC 31 L RDW 31.7 H Plt Count [place] % (Auto) [place] # (Auto) Seg Neutrophils % Seg Neuts % (Manual) 79.0 H Lymphocytes % (Manual) 11.0 L Monocytes % (Manual) 10.0 H Basophils % (Manual) Nucleated RBC % Seg Neutrophils # Seg Neutrophils # Man Lymphocytes # (Manual) 0.9 L Monocytes # (Manual) Basophils # (Manual) PT 20.8 H INR 1.74 H APTT 57.6 H Fibrinogen D-Dimer ABG pH POC ABG pCO2 POC ABG pO2 ABG Hemoglobin ABG Oxyhemoglobin ABG Sodium ABG Potassium ABG Chloride ABG Glucose Sodium Potassium Chloride Carbon Dioxide BUN Creatinine Glucose 42 L POC Glucose Lactic Acid Calcium Magnesium Iron Total Bilirubin Direct Bilirubin AST ALT Alkaline Phosphatase Ammonia CK-MB (CK-2) 7.5 H CK-MB (CK-2) Rel Index 8.5 H Total Protein Albumin 2.9 L Arterial Blood Glucose Arterial Blood Ionized Calcium Urine Creatinine Urine Total Protein Salicylates Acetaminophen Crossmatch 10/02/20 10/02/20 10/02/20 23:17 23:17 23:17 WBC RBC Hgb Hct MCV MCH MCHC RDW Plt Count [place] % (Auto) [place] # (Auto) Seg Neutrophils % Seg Neuts % (Manual) Lymphocytes % (Manual) Monocytes % (Manual) Basophils % (Manual) Nucleated RBC % Seg Neutrophils # Seg Neutrophils # Man Lymphocytes # (Manual) Monocytes # (Manual) Basophils # (Manual) PT INR APTT Fibrinogen D-Dimer ABG pH POC ABG pCO2 POC ABG pO2 ABG Hemoglobin ABG Oxyhemoglobin ABG Sodium ABG Potassium ABG Chloride ABG Glucose Sodium Potassium Chloride Carbon Dioxide BUN Creatinine Glucose POC Glucose Lactic Acid 2.20 H* Calcium Magnesium Iron Total Bilirubin Direct Bilirubin AST ALT Alkaline Phosphatase Ammonia 22.0 L CK-MB (CK-2) CK-MB (CK-2) Rel Index Total Protein Albumin Arterial Blood Glucose Arterial Blood Ionized Calcium Urine Creatinine Urine Total Protein Salicylates < 0.3 L Acetaminophen Crossmatch 10/02/20 10/03/20 10/03/20 23:17 05:57 05:57 WBC RBC 2.66 L Hgb 5.3 L* Hct 17.8 L* MCV 67 L MCH 20 L MCHC 30 L RDW 32.1 H Plt Count [place] % (Auto) [place] # (Auto) Seg Neutrophils % Seg Neuts % (Manual) Lymphocytes % (Manual) 2.0 L Monocytes % (Manual) Basophils % (Manual) Nucleated RBC % 1.0 H Seg Neutrophils # Seg Neutrophils # Man 8.6 H Lymphocytes # (Manual) 0.2 L Monocytes # (Manual) Basophils # (Manual) PT INR APTT Fibrinogen D-Dimer ABG pH POC ABG pCO2 POC ABG pO2 ABG Hemoglobin ABG Oxyhemoglobin ABG Sodium ABG Potassium ABG Chloride ABG Glucose Sodium Potassium Chloride Carbon Dioxide BUN Creatinine Glucose POC Glucose Lactic Acid Calcium Magnesium Iron Total Bilirubin Direct Bilirubin AST ALT Alkaline Phosphatase Ammonia CK-MB (CK-2) CK-MB (CK-2) Rel Index Total Protein Albumin Arterial Blood Glucose Arterial Blood Ionized Calcium Urine Creatinine Urine Total Protein Salicylates Acetaminophen 5.0 L Crossmatch See Detail 10/03/20 10/03/20 10/03/20 05:57 05:57 06:00 WBC RBC Hgb Hct MCV MCH MCHC RDW Plt Count [place] % (Auto) [place] # (Auto) Seg Neutrophils % Seg Neuts % (Manual) Lymphocytes % (Manual) Monocytes % (Manual) Basophils % (Manual) Nucleated RBC % Seg Neutrophils # Seg Neutrophils # Man Lymphocytes # (Manual) Monocytes # (Manual) Basophils # (Manual) PT INR APTT Fibrinogen D-Dimer ABG pH POC ABG pCO2 POC ABG pO2 ABG Hemoglobin ABG Oxyhemoglobin ABG Sodium ABG Potassium ABG Chloride ABG Glucose Sodium Potassium Chloride Carbon Dioxide BUN Creatinine Glucose 52 L POC Glucose 31 L Lactic Acid Calcium Magnesium Iron 42 L Total Bilirubin Direct Bilirubin AST ALT Alkaline Phosphatase Ammonia CK-MB (CK-2) CK-MB (CK-2) Rel Index Total Protein 5.8 L Albumin 3.1 L Arterial Blood Glucose Arterial Blood Ionized Calcium Urine Creatinine Urine Total Protein Salicylates Acetaminophen Crossmatch 10/03/20 10/03/20 10/03/20 07:34 09:43 10:57 WBC RBC Hgb Hct MCV MCH MCHC RDW Plt Count [place] % (Auto) [place] # (Auto) Seg Neutrophils % Seg Neuts % (Manual) Lymphocytes % (Manual) Monocytes % (Manual) Basophils % (Manual) Nucleated RBC % Seg Neutrophils # Seg Neutrophils # Man Lymphocytes # (Manual) Monocytes # (Manual) Basophils # (Manual) PT INR APTT Fibrinogen D-Dimer ABG pH POC ABG pCO2 POC ABG pO2 ABG Hemoglobin ABG Oxyhemoglobin ABG Sodium ABG Potassium ABG Chloride ABG Glucose Sodium Potassium Chloride Carbon Dioxide BUN Creatinine Glucose POC Glucose 59 L 41 L 31 L Lactic Acid Calcium Magnesium Iron Total Bilirubin Direct Bilirubin AST ALT Alkaline Phosphatase Ammonia CK-MB (CK-2) CK-MB (CK-2) Rel Index Total Protein Albumin Arterial Blood Glucose Arterial Blood Ionized Calcium Urine Creatinine Urine Total Protein Salicylates Acetaminophen Crossmatch 10/03/20 10/03/20 10/03/20 11:21 12:00 12:14 WBC RBC Hgb Hct MCV MCH MCHC RDW Plt Count [place] % (Auto) [place] # (Auto) Seg Neutrophils % Seg Neuts % (Manual) Lymphocytes % (Manual) Monocytes % (Manual) Basophils % (Manual) Nucleated RBC % Seg Neutrophils # Seg Neutrophils # Man Lymphocytes # (Manual) Monocytes # (Manual) Basophils # (Manual) PT INR APTT Fibrinogen D-Dimer ABG pH POC ABG pCO2 POC ABG pO2 ABG Hemoglobin ABG Oxyhemoglobin ABG Sodium ABG Potassium ABG Chloride ABG Glucose Sodium Potassium Chloride Carbon Dioxide BUN Creatinine Glucose POC Glucose 62 L 26 L 140 H Lactic Acid Calcium Magnesium Iron Total Bilirubin Direct Bilirubin AST ALT Alkaline Phosphatase Ammonia CK-MB (CK-2) CK-MB (CK-2) Rel Index Total Protein Albumin Arterial Blood Glucose Arterial Blood Ionized Calcium Urine Creatinine Urine Total Protein Salicylates Acetaminophen Crossmatch 10/03/20 10/03/20 10/03/20 13:33 14:19 14:59 WBC RBC Hgb Hct MCV MCH MCHC RDW Plt Count [place] % (Auto) [place] # (Auto) Seg Neutrophils % Seg Neuts % (Manual) Lymphocytes % (Manual) Monocytes % (Manual) Basophils % (Manual) Nucleated RBC % Seg Neutrophils # Seg Neutrophils # Man Lymphocytes # (Manual) Monocytes # (Manual) Basophils # (Manual) PT INR APTT Fibrinogen D-Dimer ABG pH POC ABG pCO2 POC ABG pO2 ABG Hemoglobin ABG Oxyhemoglobin ABG Sodium ABG Potassium ABG Chloride ABG Glucose Sodium Potassium Chloride Carbon Dioxide BUN Creatinine Glucose POC Glucose 24 L 59 L 40 L Lactic Acid Calcium Magnesium Iron Total Bilirubin Direct Bilirubin AST ALT Alkaline Phosphatase Ammonia CK-MB (CK-2) CK-MB (CK-2) Rel Index Total Protein Albumin Arterial Blood Glucose Arterial Blood Ionized Calcium Urine Creatinine Urine Total Protein Salicylates Acetaminophen Crossmatch 10/03/20 10/03/20 10/03/20 15:26 15:57 16:35 WBC RBC Hgb Hct MCV MCH MCHC RDW Plt Count [place] % (Auto) [place] # (Auto) Seg Neutrophils % Seg Neuts % (Manual) Lymphocytes % (Manual) Monocytes % (Manual) Basophils % (Manual) Nucleated RBC % Seg Neutrophils # Seg Neutrophils # Man Lymphocytes # (Manual) Monocytes # (Manual) Basophils # (Manual) PT INR APTT Fibrinogen D-Dimer ABG pH POC ABG pCO2 POC ABG pO2 ABG Hemoglobin ABG Oxyhemoglobin ABG Sodium ABG Potassium ABG Chloride ABG Glucose Sodium Potassium Chloride Carbon Dioxide BUN Creatinine Glucose POC Glucose 54 L 45 L 42 L Lactic Acid Calcium Magnesium Iron Total Bilirubin Direct Bilirubin AST ALT Alkaline Phosphatase Ammonia CK-MB (CK-2) CK-MB (CK-2) Rel Index Total Protein Albumin Arterial Blood Glucose Arterial Blood Ionized Calcium Urine Creatinine Urine Total Protein Salicylates Acetaminophen Crossmatch 10/03/20 10/03/20 10/03/20 17:16 18:37 19:56 WBC RBC Hgb Hct MCV MCH MCHC RDW Plt Count [place] % (Auto) [place] # (Auto) Seg Neutrophils % Seg Neuts % (Manual) Lymphocytes % (Manual) Monocytes % (Manual) Basophils % (Manual) Nucleated RBC % Seg Neutrophils # Seg Neutrophils # Man Lymphocytes # (Manual) Monocytes # (Manual) Basophils # (Manual) PT INR APTT Fibrinogen D-Dimer ABG pH POC ABG pCO2 POC ABG pO2 ABG Hemoglobin ABG Oxyhemoglobin ABG Sodium ABG Potassium ABG Chloride ABG Glucose Sodium Potassium Chloride Carbon Dioxide BUN Creatinine Glucose POC Glucose 41 L 46 L 57 L Lactic Acid Calcium Magnesium Iron Total Bilirubin Direct Bilirubin AST ALT Alkaline Phosphatase Ammonia CK-MB (CK-2) CK-MB (CK-2) Rel Index Total Protein Albumin Arterial Blood Glucose Arterial Blood Ionized Calcium Urine Creatinine Urine Total Protein Salicylates Acetaminophen Crossmatch 10/03/20 10/04/20 10/04/20 21:32 01:04 01:11 WBC RBC Hgb 9.6 L D Hct 28.3 L D MCV MCH MCHC RDW Plt Count [place] % (Auto) [place] # (Auto) Seg Neutrophils % Seg Neuts % (Manual) Lymphocytes % (Manual) Monocytes % (Manual) Basophils % (Manual) Nucleated RBC % Seg Neutrophils # Seg Neutrophils # Man Lymphocytes # (Manual) Monocytes # (Manual) Basophils # (Manual) PT INR APTT Fibrinogen D-Dimer ABG pH POC ABG pCO2 POC ABG pO2 ABG Hemoglobin ABG Oxyhemoglobin ABG Sodium ABG Potassium ABG Chloride ABG Glucose Sodium Potassium Chloride Carbon Dioxide BUN Creatinine Glucose POC Glucose 65 L 51 L Lactic Acid Calcium Magnesium Iron Total Bilirubin Direct Bilirubin AST ALT Alkaline Phosphatase Ammonia CK-MB (CK-2) CK-MB (CK-2) Rel Index Total Protein Albumin Arterial Blood Glucose Arterial Blood Ionized Calcium Urine Creatinine Urine Total Protein Salicylates Acetaminophen Crossmatch 10/04/20 10/04/20 10/04/20 05:59 05:59 15:10 WBC 13.4 H RBC Hgb 9.9 L 10.1 L Hct 32.0 L 31.8 L MCV 76 L MCH 24 L MCHC 31 L RDW 31.3 H Plt Count [place] % (Auto) [place] # (Auto) Seg Neutrophils % Seg Neuts % (Manual) 86.0 H Lymphocytes % (Manual) 6.0 L Monocytes % (Manual) 8.0 H Basophils % (Manual) Nucleated RBC % 2.0 H Seg Neutrophils # Seg Neutrophils # Man 11.5 H Lymphocytes # (Manual) 0.8 L Monocytes # (Manual) 1.1 H Basophils # (Manual) PT INR APTT Fibrinogen D-Dimer ABG pH POC ABG pCO2 POC ABG pO2 ABG Hemoglobin ABG Oxyhemoglobin ABG Sodium ABG Potassium ABG Chloride ABG Glucose Sodium 136 L Potassium 3.5 L Chloride Carbon Dioxide 19 L D BUN Creatinine Glucose POC Glucose Lactic Acid Calcium Magnesium Iron Total Bilirubin Direct Bilirubin AST ALT Alkaline Phosphatase Ammonia CK-MB (CK-2) CK-MB (CK-2) Rel Index Total Protein Albumin 2.6 L Arterial Blood Glucose Arterial Blood Ionized Calcium Urine Creatinine Urine Total Protein Salicylates Acetaminophen Crossmatch 10/04/20 10/04/20 10/05/20 16:28 22:33 04:43 WBC RBC Hgb 10.5 L Hct 32.5 L MCV MCH MCHC RDW Plt Count [place] % (Auto) [place] # (Auto) Seg Neutrophils % Seg Neuts % (Manual) Lymphocytes % (Manual) Monocytes % (Manual) Basophils % (Manual) Nucleated RBC % Seg Neutrophils # Seg Neutrophils # Man Lymphocytes # (Manual) Monocytes # (Manual) Basophils # (Manual) PT INR APTT Fibrinogen D-Dimer ABG pH POC ABG pCO2 POC ABG pO2 ABG Hemoglobin ABG Oxyhemoglobin ABG Sodium ABG Potassium ABG Chloride ABG Glucose Sodium Potassium Chloride Carbon Dioxide BUN Creatinine Glucose POC Glucose 66 L 113 H Lactic Acid Calcium Magnesium Iron Total Bilirubin Direct Bilirubin AST ALT Alkaline Phosphatase Ammonia CK-MB (CK-2) CK-MB (CK-2) Rel Index Total Protein Albumin Arterial Blood Glucose Arterial Blood Ionized Calcium Urine Creatinine Urine Total Protein Salicylates Acetaminophen Crossmatch 10/05/20 10/05/20 10/05/20 05:00 09:42 11:57 WBC RBC Hgb 9.8 L Hct 30.5 L MCV 74 L MCH 24 L MCHC RDW 31.6 H Plt Count [place] % (Auto) [place] # (Auto) Seg Neutrophils % Seg Neuts % (Manual) Lymphocytes % (Manual) Monocytes % (Manual) Basophils % (Manual) Nucleated RBC % Seg Neutrophils # Seg Neutrophils # Man Lymphocytes # (Manual) Monocytes # (Manual) Basophils # (Manual) PT INR APTT Fibrinogen D-Dimer ABG pH POC ABG pCO2 POC ABG pO2 ABG Hemoglobin ABG Oxyhemoglobin ABG Sodium ABG Potassium ABG Chloride ABG Glucose Sodium 132 L Potassium 3.5 L Chloride Carbon Dioxide 19 L BUN Creatinine 0.7 L Glucose POC Glucose 129 H Lactic Acid Calcium Magnesium Iron Total Bilirubin Direct Bilirubin AST ALT Alkaline Phosphatase Ammonia CK-MB (CK-2) CK-MB (CK-2) Rel Index Total Protein Albumin Arterial Blood Glucose Arterial Blood Ionized Calcium Urine Creatinine Urine Total Protein Salicylates Acetaminophen Crossmatch 10/05/20 10/05/20 10/06/20 16:47 21:51 05:07 WBC RBC Hgb 9.4 L Hct 30.1 L MCV 76 L MCH 24 L MCHC 31 L RDW 31.1 H Plt Count [place] % (Auto) [place] # (Auto) Seg Neutrophils % Seg Neuts % (Manual) Lymphocytes % (Manual) Monocytes % (Manual) Basophils % (Manual) Nucleated RBC % Seg Neutrophils # Seg Neutrophils # Man Lymphocytes # (Manual) Monocytes # (Manual) Basophils # (Manual) PT INR APTT Fibrinogen D-Dimer ABG pH POC ABG pCO2 POC ABG pO2 ABG Hemoglobin ABG Oxyhemoglobin ABG Sodium ABG Potassium ABG Chloride ABG Glucose Sodium Potassium Chloride Carbon Dioxide BUN Creatinine Glucose POC Glucose 132 H 115 H Lactic Acid Calcium Magnesium Iron Total Bilirubin Direct Bilirubin AST ALT Alkaline Phosphatase Ammonia CK-MB (CK-2) CK-MB (CK-2) Rel Index Total Protein Albumin Arterial Blood Glucose Arterial Blood Ionized Calcium Urine Creatinine Urine Total Protein Salicylates Acetaminophen Crossmatch 10/06/20 10/06/20 10/06/20 05:07 15:37 21:01 WBC RBC Hgb Hct MCV MCH MCHC RDW Plt Count [place] % (Auto) [place] # (Auto) Seg Neutrophils % Seg Neuts % (Manual) Lymphocytes % (Manual) Monocytes % (Manual) Basophils % (Manual) Nucleated RBC % Seg Neutrophils # Seg Neutrophils # Man Lymphocytes # (Manual) Monocytes # (Manual) Basophils # (Manual) PT INR APTT Fibrinogen D-Dimer ABG pH POC ABG pCO2 POC ABG pO2 ABG Hemoglobin ABG Oxyhemoglobin ABG Sodium ABG Potassium ABG Chloride ABG Glucose Sodium 133 L Potassium 3.5 L Chloride Carbon Dioxide 21 L BUN Creatinine 0.6 L Glucose 105 H POC Glucose 136 H 108 H Lactic Acid Calcium Magnesium Iron Total Bilirubin Direct Bilirubin AST ALT Alkaline Phosphatase Ammonia CK-MB (CK-2) CK-MB (CK-2) Rel Index Total Protein Albumin Arterial Blood Glucose Arterial Blood Ionized Calcium Urine Creatinine Urine Total Protein Salicylates Acetaminophen Crossmatch 10/07/20 10/07/20 10/07/20 04:52 04:52 06:07 WBC RBC Hgb 9.6 L Hct 29.4 L MCV 73 L MCH 24 L MCHC RDW 32.2 H Plt Count [place] % (Auto) [place] # (Auto) Seg Neutrophils % Seg Neuts % (Manual) Lymphocytes % (Manual) Monocytes % (Manual) Basophils % (Manual) Nucleated RBC % Seg Neutrophils # Seg Neutrophils # Man Lymphocytes # (Manual) Monocytes # (Manual) Basophils # (Manual) PT INR APTT Fibrinogen D-Dimer ABG pH POC ABG pCO2 POC ABG pO2 ABG Hemoglobin ABG Oxyhemoglobin ABG Sodium ABG Potassium ABG Chloride ABG Glucose Sodium 128 L Potassium Chloride Carbon Dioxide 20 L BUN Creatinine 0.7 L Glucose POC Glucose 110 H Lactic Acid Calcium Magnesium Iron Total Bilirubin Direct Bilirubin AST ALT Alkaline Phosphatase Ammonia CK-MB (CK-2) CK-MB (CK-2) Rel Index Total Protein Albumin Arterial Blood Glucose Arterial Blood Ionized Calcium Urine Creatinine Urine Total Protein Salicylates Acetaminophen Crossmatch 10/07/20 10/07/20 10/07/20 17:09 18:53 20:35 WBC RBC Hgb Hct MCV MCH MCHC RDW Plt Count [place] % (Auto) [place] # (Auto) Seg Neutrophils % Seg Neuts % (Manual) Lymphocytes % (Manual) Monocytes % (Manual) Basophils % (Manual) Nucleated RBC % Seg Neutrophils # Seg Neutrophils # Man Lymphocytes # (Manual) Monocytes # (Manual) Basophils # (Manual) PT INR APTT Fibrinogen D-Dimer ABG pH POC ABG pCO2 POC ABG pO2 ABG Hemoglobin ABG Oxyhemoglobin ABG Sodium ABG Potassium ABG Chloride ABG Glucose Sodium Potassium Chloride Carbon Dioxide BUN Creatinine Glucose POC Glucose 67 L 66 L 62 L Lactic Acid Calcium Magnesium Iron Total Bilirubin Direct Bilirubin AST ALT Alkaline Phosphatase Ammonia CK-MB (CK-2) CK-MB (CK-2) Rel Index Total Protein Albumin Arterial Blood Glucose Arterial Blood Ionized Calcium Urine Creatinine Urine Total Protein Salicylates Acetaminophen Crossmatch 10/07/20 10/08/20 10/08/20 21:55 05:00 05:00 WBC RBC Hgb 9.6 L Hct 29.4 L MCV 73 L MCH 24 L MCHC RDW 32.4 H Plt Count [place] % (Auto) [place] # (Auto) Seg Neutrophils % 80.6 H Seg Neuts % (Manual) 88.0 H Lymphocytes % (Manual) 9.0 L Monocytes % (Manual) Basophils % (Manual) Nucleated RBC % 5.0 H Seg Neutrophils # Seg Neutrophils # Man Lymphocytes # (Manual) 0.5 L Monocytes # (Manual) Basophils # (Manual) PT INR APTT Fibrinogen D-Dimer ABG pH POC ABG pCO2 POC ABG pO2 ABG Hemoglobin ABG Oxyhemoglobin ABG Sodium ABG Potassium ABG Chloride ABG Glucose Sodium 126 L Potassium Chloride 96.3 L Carbon Dioxide BUN Creatinine 0.7 L Glucose POC Glucose 132 H Lactic Acid Calcium Magnesium Iron Total Bilirubin Direct Bilirubin AST ALT Alkaline Phosphatase Ammonia CK-MB (CK-2) CK-MB (CK-2) Rel Index Total Protein Albumin Arterial Blood Glucose Arterial Blood Ionized Calcium Urine Creatinine Urine Total Protein Salicylates Acetaminophen Crossmatch 10/08/20 10/09/20 10/09/20 22:26 01:36 02:22 WBC RBC Hgb Hct MCV MCH MCHC RDW Plt Count [place] % (Auto) [place] # (Auto) Seg Neutrophils % Seg Neuts % (Manual) Lymphocytes % (Manual) Monocytes % (Manual) Basophils % (Manual) Nucleated RBC % Seg Neutrophils # Seg Neutrophils # Man Lymphocytes # (Manual) Monocytes # (Manual) Basophils # (Manual) PT INR APTT Fibrinogen D-Dimer ABG pH POC ABG pCO2 POC ABG pO2 ABG Hemoglobin ABG Oxyhemoglobin ABG Sodium ABG Potassium ABG Chloride ABG Glucose Sodium Potassium Chloride Carbon Dioxide BUN Creatinine Glucose POC Glucose 63 L 62 L 151 H Lactic Acid Calcium Magnesium Iron Total Bilirubin Direct Bilirubin AST ALT Alkaline Phosphatase Ammonia CK-MB (CK-2) CK-MB (CK-2) Rel Index Total Protein Albumin Arterial Blood Glucose Arterial Blood Ionized Calcium Urine Creatinine Urine Total Protein Salicylates Acetaminophen Crossmatch 10/09/20 10/09/20 10/09/20 05:07 05:42 06:32 WBC RBC Hgb 10.3 L Hct 33.8 L MCV 77 L MCH 24 L MCHC 31 L RDW 33.6 H Plt Count 137 L [place] % (Auto) [place] # (Auto) Seg Neutrophils % Seg Neuts % (Manual) 89.0 H Lymphocytes % (Manual) 5.0 L Monocytes % (Manual) Basophils % (Manual) Nucleated RBC % 4.0 H Seg Neutrophils # Seg Neutrophils # Man 9.4 H Lymphocytes # (Manual) 0.5 L Monocytes # (Manual) Basophils # (Manual) PT INR APTT Fibrinogen D-Dimer ABG pH POC ABG pCO2 POC ABG pO2 ABG Hemoglobin ABG Oxyhemoglobin ABG Sodium ABG Potassium ABG Chloride ABG Glucose Sodium 126 L Potassium Chloride 97.8 L Carbon Dioxide 20 L BUN Creatinine Glucose 58 L POC Glucose 48 L Lactic Acid Calcium Magnesium Iron Total Bilirubin Direct Bilirubin AST ALT Alkaline Phosphatase Ammonia CK-MB (CK-2) CK-MB (CK-2) Rel Index Total Protein Albumin Arterial Blood Glucose Arterial Blood Ionized Calcium Urine Creatinine Urine Total Protein Salicylates Acetaminophen Crossmatch 10/09/20 10/10/20 10/10/20 06:35 00:21 05:53 WBC RBC Hgb Hct MCV MCH MCHC RDW Plt Count [place] % (Auto) [place] # (Auto) Seg Neutrophils % Seg Neuts % (Manual) Lymphocytes % (Manual) Monocytes % (Manual) Basophils % (Manual) Nucleated RBC % Seg Neutrophils # Seg Neutrophils # Man Lymphocytes # (Manual) Monocytes # (Manual) Basophils # (Manual) PT INR APTT Fibrinogen D-Dimer ABG pH POC ABG pCO2 POC ABG pO2 ABG Hemoglobin ABG Oxyhemoglobin ABG Sodium ABG Potassium ABG Chloride ABG Glucose Sodium Potassium Chloride Carbon Dioxide BUN Creatinine Glucose POC Glucose 106 H 153 H 34 L Lactic Acid Calcium Magnesium Iron Total Bilirubin Direct Bilirubin AST ALT Alkaline Phosphatase Ammonia CK-MB (CK-2) CK-MB (CK-2) Rel Index Total Protein Albumin Arterial Blood Glucose Arterial Blood Ionized Calcium Urine Creatinine Urine Total Protein Salicylates Acetaminophen Crossmatch 10/10/20 10/10/20 10/10/20 10:58 10:58 12:39 WBC RBC Hgb 10.3 L Hct 33.9 L MCV 78 L MCH 24 L MCHC 30 L RDW 33.2 H Plt Count 135 L [place] % (Auto) [place] # (Auto) Seg Neutrophils % Seg Neuts % (Manual) 74.0 H Lymphocytes % (Manual) 12.0 L Monocytes % (Manual) 9.0 H Basophils % (Manual) 2.0 H Nucleated RBC % Seg Neutrophils # Seg Neutrophils # Man Lymphocytes # (Manual) 1.0 L Monocytes # (Manual) Basophils # (Manual) 0.2 H PT INR APTT Fibrinogen D-Dimer ABG pH POC ABG pCO2 POC ABG pO2 ABG Hemoglobin ABG Oxyhemoglobin ABG Sodium ABG Potassium ABG Chloride ABG Glucose Sodium 127 L Potassium Chloride Carbon Dioxide 20 L BUN 23 H Creatinine Glucose POC Glucose 108 H Lactic Acid Calcium Magnesium Iron Total Bilirubin Direct Bilirubin AST ALT Alkaline Phosphatase Ammonia CK-MB (CK-2) CK-MB (CK-2) Rel Index Total Protein Albumin Arterial Blood Glucose Arterial Blood Ionized Calcium Urine Creatinine Urine Total Protein Salicylates Acetaminophen Crossmatch 10/10/20 10/11/20 10/11/20 16:51 04:56 05:51 WBC RBC Hgb 9.5 L Hct 31.3 L MCV 77 L MCH 23 L MCHC 30 L RDW 33.7 H Plt Count [place] % (Auto) [place] # (Auto) Seg Neutrophils % Seg Neuts % (Manual) 95.0 H Lymphocytes % (Manual) 2.0 L Monocytes % (Manual) Basophils % (Manual) Nucleated RBC % 3.0 H Seg Neutrophils # Seg Neutrophils # Man 8.0 H Lymphocytes # (Manual) 0.2 L Monocytes # (Manual) Basophils # (Manual) PT INR APTT Fibrinogen D-Dimer ABG pH POC ABG pCO2 POC ABG pO2 ABG Hemoglobin ABG Oxyhemoglobin ABG Sodium ABG Potassium ABG Chloride ABG Glucose Sodium Potassium Chloride Carbon Dioxide BUN Creatinine Glucose POC Glucose 142 H 124 H Lactic Acid Calcium Magnesium Iron Total Bilirubin Direct Bilirubin AST ALT Alkaline Phosphatase Ammonia CK-MB (CK-2) CK-MB (CK-2) Rel Index Total Protein Albumin Arterial Blood Glucose Arterial Blood Ionized Calcium Urine Creatinine Urine Total Protein Salicylates Acetaminophen Crossmatch 10/11/20 10/11/20 10/12/20 05:51 11:56 04:53 WBC RBC Hgb 9.5 L Hct 30.0 L MCV 75 L MCH 24 L MCHC RDW 32.8 H Plt Count 136 L [place] % (Auto) [place] # (Auto) Seg Neutrophils % Seg Neuts % (Manual) 89.0 H Lymphocytes % (Manual) 5.0 L Monocytes % (Manual) Basophils % (Manual) Nucleated RBC % Seg Neutrophils # Seg Neutrophils # Man Lymphocytes # (Manual) 0.4 L Monocytes # (Manual) Basophils # (Manual) PT INR APTT Fibrinogen D-Dimer ABG pH POC ABG pCO2 POC ABG pO2 ABG Hemoglobin ABG Oxyhemoglobin ABG Sodium ABG Potassium ABG Chloride ABG Glucose Sodium 130 L Potassium Chloride Carbon Dioxide 18 L BUN 23 H Creatinine Glucose POC Glucose 126 H Lactic Acid Calcium Magnesium Iron Total Bilirubin Direct Bilirubin AST ALT Alkaline Phosphatase Ammonia CK-MB (CK-2) CK-MB (CK-2) Rel Index Total Protein Albumin Arterial Blood Glucose Arterial Blood Ionized Calcium Urine Creatinine Urine Total Protein Salicylates Acetaminophen Crossmatch 10/12/20 10/12/20 10/12/20 04:53 11:42 23:49 WBC RBC Hgb Hct MCV MCH MCHC RDW Plt Count [place] % (Auto) [place] # (Auto) Seg Neutrophils % Seg Neuts % (Manual) Lymphocytes % (Manual) Monocytes % (Manual) Basophils % (Manual) Nucleated RBC % Seg Neutrophils # Seg Neutrophils # Man Lymphocytes # (Manual) Monocytes # (Manual) Basophils # (Manual) PT INR APTT Fibrinogen D-Dimer ABG pH POC ABG pCO2 POC ABG pO2 ABG Hemoglobin ABG Oxyhemoglobin ABG Sodium ABG Potassium ABG Chloride ABG Glucose Sodium 130 L Potassium Chloride Carbon Dioxide 18 L BUN 25 H Creatinine Glucose 74 L POC Glucose 59 L 51 L Lactic Acid Calcium Magnesium Iron Total Bilirubin Direct Bilirubin AST ALT Alkaline Phosphatase Ammonia CK-MB (CK-2) CK-MB (CK-2) Rel Index Total Protein Albumin Arterial Blood Glucose Arterial Blood Ionized Calcium Urine Creatinine Urine Total Protein Salicylates Acetaminophen Crossmatch 10/13/20 10/13/20 10/13/20 03:17 05:24 05:24 WBC RBC Hgb 9.4 L Hct 29.4 L MCV 75 L MCH 24 L MCHC RDW 32.9 H Plt Count 95 L [place] % (Auto) [place] # (Auto) Seg Neutrophils % Seg Neuts % (Manual) 90.0 H Lymphocytes % (Manual) Monocytes % (Manual) Basophils % (Manual) Nucleated RBC % 2.0 H Seg Neutrophils # Seg Neutrophils # Man 9.5 H Lymphocytes # (Manual) 0.0 L Monocytes # (Manual) Basophils # (Manual) PT INR APTT Fibrinogen D-Dimer ABG pH POC ABG pCO2 POC ABG pO2 ABG Hemoglobin ABG Oxyhemoglobin ABG Sodium ABG Potassium ABG Chloride ABG Glucose Sodium 132 L Potassium Chloride Carbon Dioxide 17 L BUN 26 H Creatinine 1.6 H Glucose POC Glucose 67 L Lactic Acid Calcium Magnesium Iron Total Bilirubin Direct Bilirubin AST ALT Alkaline Phosphatase Ammonia CK-MB (CK-2) CK-MB (CK-2) Rel Index Total Protein Albumin Arterial Blood Glucose Arterial Blood Ionized Calcium Urine Creatinine Urine Total Protein Salicylates Acetaminophen Crossmatch 10/13/20 10/14/20 10/14/20 11:36 05:04 05:04 WBC 17.4 H RBC Hgb 9.3 L Hct 29.3 L MCV 76 L MCH 24 L MCHC RDW 33.8 H Plt Count 83 L [place] % (Auto) [place] # (Auto) Seg Neutrophils % Seg Neuts % (Manual) 89.0 H Lymphocytes % (Manual) 4.0 L Monocytes % (Manual) Basophils % (Manual) Nucleated RBC % 1.0 H Seg Neutrophils # Seg Neutrophils # Man 15.5 H Lymphocytes # (Manual) 0.7 L Monocytes # (Manual) Basophils # (Manual) PT INR APTT Fibrinogen D-Dimer ABG pH POC ABG pCO2 POC ABG pO2 ABG Hemoglobin ABG Oxyhemoglobin ABG Sodium ABG Potassium ABG Chloride ABG Glucose Sodium 132 L Potassium 5.3 H Chloride 108.7 H Carbon Dioxide 15 L BUN 25 H Creatinine 1.5 H Glucose POC Glucose 58 L Lactic Acid Calcium Magnesium Iron Total Bilirubin Direct Bilirubin AST ALT Alkaline Phosphatase Ammonia CK-MB (CK-2) CK-MB (CK-2) Rel Index Total Protein Albumin Arterial Blood Glucose Arterial Blood Ionized Calcium Urine Creatinine Urine Total Protein Salicylates Acetaminophen Crossmatch 10/14/20 10/14/20 10/14/20 05:41 08:19 15:34 WBC RBC Hgb Hct MCV MCH MCHC RDW Plt Count [place] % (Auto) [place] # (Auto) Seg Neutrophils % Seg Neuts % (Manual) Lymphocytes % (Manual) Monocytes % (Manual) Basophils % (Manual) Nucleated RBC % Seg Neutrophils # Seg Neutrophils # Man Lymphocytes # (Manual) Monocytes # (Manual) Basophils # (Manual) PT INR APTT Fibrinogen D-Dimer ABG pH POC ABG pCO2 POC ABG pO2 ABG Hemoglobin ABG Oxyhemoglobin ABG Sodium ABG Potassium ABG Chloride ABG Glucose Sodium 134 L Potassium 5.2 H Chloride 111.1 H Carbon Dioxide 16 L BUN 25 H Creatinine 1.5 H Glucose POC Glucose 58 L 120 H Lactic Acid Calcium Magnesium Iron Total Bilirubin Direct Bilirubin AST ALT Alkaline Phosphatase Ammonia CK-MB (CK-2) CK-MB (CK-2) Rel Index Total Protein Albumin Arterial Blood Glucose Arterial Blood Ionized Calcium Urine Creatinine Urine Total Protein Salicylates Acetaminophen Crossmatch 10/14/20 10/15/20 10/15/20 Unknown 05:50 05:50 WBC 14.1 H RBC Hgb 9.4 L Hct 29.9 L MCV 76 L MCH 24 L MCHC 31 L RDW 34.2 H Plt Count 86 L [place] % (Auto) 8.3 H [place] # (Auto) 1.3 H Seg Neutrophils % 86.5 H Seg Neuts % (Manual) Lymphocytes % (Manual) 9.0 L Monocytes % (Manual) Basophils % (Manual) Nucleated RBC % 6.0 H Seg Neutrophils # 13.2 H Seg Neutrophils # Man 9.7 H Lymphocytes # (Manual) Monocytes # (Manual) Basophils # (Manual) PT INR APTT Fibrinogen D-Dimer ABG pH POC ABG pCO2 POC ABG pO2 ABG Hemoglobin ABG Oxyhemoglobin ABG Sodium ABG Potassium ABG Chloride ABG Glucose Sodium 134 L Potassium Chloride 109.9 H Carbon Dioxide 18 L BUN 26 H Creatinine 1.5 H Glucose 125 H POC Glucose Lactic Acid Calcium Magnesium Iron Total Bilirubin Direct Bilirubin AST ALT Alkaline Phosphatase Ammonia CK-MB (CK-2) CK-MB (CK-2) Rel Index Total Protein Albumin Arterial Blood Glucose Arterial Blood Ionized Calcium Urine Creatinine 144.2 H Urine Total Protein 97 H Salicylates Acetaminophen Crossmatch 10/15/20 10/15/20 10/15/20 05:55 07:36 07:59 WBC RBC Hgb Hct MCV MCH MCHC RDW Plt Count [place] % (Auto) [place] # (Auto) Seg Neutrophils % Seg Neuts % (Manual) Lymphocytes % (Manual) Monocytes % (Manual) Basophils % (Manual) Nucleated RBC % Seg Neutrophils # Seg Neutrophils # Man Lymphocytes # (Manual) Monocytes # (Manual) Basophils # (Manual) PT INR APTT Fibrinogen D-Dimer ABG pH 7.052 L POC ABG pCO2 65.0 H POC ABG pO2 214.1 H ABG Hemoglobin 10.6 L ABG Oxyhemoglobin 98.3 H ABG Sodium 130.6 L ABG Potassium ABG Chloride 110.0 H ABG Glucose 124 H Sodium Potassium Chloride Carbon Dioxide BUN Creatinine Glucose POC Glucose 113 H 114 H Lactic Acid Calcium Magnesium Iron Total Bilirubin Direct Bilirubin AST ALT Alkaline Phosphatase Ammonia CK-MB (CK-2) CK-MB (CK-2) Rel Index Total Protein Albumin Arterial Blood Glucose 124 H Arterial Blood Ionized Calcium Urine Creatinine Urine Total Protein Salicylates Acetaminophen Crossmatch 10/15/20 10/15/20 10/15/20 10:50 11:27 13:56 WBC RBC Hgb Hct MCV MCH MCHC RDW Plt Count [place] % (Auto) [place] # (Auto) Seg Neutrophils % Seg Neuts % (Manual) Lymphocytes % (Manual) Monocytes % (Manual) Basophils % (Manual) Nucleated RBC % Seg Neutrophils # Seg Neutrophils # Man Lymphocytes # (Manual) Monocytes # (Manual) Basophils # (Manual) PT INR APTT Fibrinogen D-Dimer ABG pH 7.200 L POC ABG pCO2 POC ABG pO2 123.1 H ABG Hemoglobin ABG Oxyhemoglobin ABG Sodium 131.3 L ABG Potassium 4.6 H ABG Chloride 112.0 H ABG Glucose 42 L Sodium Potassium Chloride Carbon Dioxide BUN Creatinine Glucose POC Glucose 50 L 476 H Lactic Acid Calcium Magnesium Iron Total Bilirubin Direct Bilirubin AST ALT Alkaline Phosphatase Ammonia CK-MB (CK-2) CK-MB (CK-2) Rel Index Total Protein Albumin Arterial Blood Glucose 42 L Arterial Blood Ionized Calcium Urine Creatinine Urine Total Protein Salicylates Acetaminophen Crossmatch 10/15/20 10/15/20 10/16/20 16:46 17:01 00:45 WBC RBC Hgb Hct MCV MCH MCHC RDW Plt Count [place] % (Auto) [place] # (Auto) Seg Neutrophils % Seg Neuts % (Manual) Lymphocytes % (Manual) Monocytes % (Manual) Basophils % (Manual) Nucleated RBC % Seg Neutrophils # Seg Neutrophils # Man Lymphocytes # (Manual) Monocytes # (Manual) Basophils # (Manual) PT INR APTT Fibrinogen D-Dimer ABG pH 7.250 L POC ABG pCO2 POC ABG pO2 49.8 L ABG Hemoglobin 9.3 L ABG Oxyhemoglobin 83.0 L ABG Sodium 130.2 L ABG Potassium ABG Chloride 111.0 H ABG Glucose Sodium 135 L Potassium Chloride Carbon Dioxide BUN Creatinine Glucose POC Glucose 67 L Lactic Acid Calcium Magnesium Iron Total Bilirubin Direct Bilirubin AST ALT Alkaline Phosphatase Ammonia CK-MB (CK-2) CK-MB (CK-2) Rel Index Total Protein Albumin Arterial Blood Glucose Arterial Blood Ionized Calcium Urine Creatinine Urine Total Protein Salicylates Acetaminophen Crossmatch 10/16/20 10/16/20 10/16/20 05:36 05:53 05:53 WBC 16.6 H RBC 3.52 L Hgb 8.3 L Hct 26.6 L MCV 75 L MCH 23 L MCHC 31 L RDW 33.7 H Plt Count 63 L [place] % (Auto) [place] # (Auto) Seg Neutrophils % Seg Neuts % (Manual) 93.0 H Lymphocytes % (Manual) Monocytes % (Manual) Basophils % (Manual) Nucleated RBC % 3.0 H Seg Neutrophils # Seg Neutrophils # Man 15.4 H Lymphocytes # (Manual) 0.0 L Monocytes # (Manual) Basophils # (Manual) PT INR APTT Fibrinogen D-Dimer ABG pH POC ABG pCO2 POC ABG pO2 ABG Hemoglobin ABG Oxyhemoglobin ABG Sodium ABG Potassium ABG Chloride ABG Glucose Sodium 136 L Potassium Chloride 111.9 H Carbon Dioxide 17 L BUN 29 H Creatinine 2.0 H Glucose 126 H POC Glucose 44 L Lactic Acid Calcium 8.1 L Magnesium Iron Total Bilirubin Direct Bilirubin AST ALT Alkaline Phosphatase Ammonia CK-MB (CK-2) CK-MB (CK-2) Rel Index Total Protein Albumin Arterial Blood Glucose Arterial Blood Ionized Calcium Urine Creatinine Urine Total Protein Salicylates Acetaminophen Crossmatch 10/16/20 10/16/20 10/16/20 05:53 07:26 08:07 WBC RBC Hgb Hct MCV MCH MCHC RDW Plt Count [place] % (Auto) [place] # (Auto) Seg Neutrophils % Seg Neuts % (Manual) Lymphocytes % (Manual) Monocytes % (Manual) Basophils % (Manual) Nucleated RBC % Seg Neutrophils # Seg Neutrophils # Man Lymphocytes # (Manual) Monocytes # (Manual) Basophils # (Manual) PT 24.5 H INR 2.17 H APTT Fibrinogen D-Dimer ABG pH POC ABG pCO2 POC ABG pO2 ABG Hemoglobin ABG Oxyhemoglobin ABG Sodium ABG Potassium ABG Chloride ABG Glucose Sodium Potassium Chloride Carbon Dioxide BUN Creatinine Glucose POC Glucose 58 L 51 L Lactic Acid Calcium Magnesium Iron Total Bilirubin Direct Bilirubin AST ALT Alkaline Phosphatase Ammonia CK-MB (CK-2) CK-MB (CK-2) Rel Index Total Protein Albumin Arterial Blood Glucose Arterial Blood Ionized Calcium Urine Creatinine Urine Total Protein Salicylates Acetaminophen Crossmatch 10/16/20 10/16/20 10/16/20 08:52 11:14 11:33 WBC RBC Hgb Hct MCV MCH MCHC RDW Plt Count [place] % (Auto) [place] # (Auto) Seg Neutrophils % Seg Neuts % (Manual) Lymphocytes % (Manual) Monocytes % (Manual) Basophils % (Manual) Nucleated RBC % Seg Neutrophils # Seg Neutrophils # Man Lymphocytes # (Manual) Monocytes # (Manual) Basophils # (Manual) PT INR APTT Fibrinogen D-Dimer ABG pH 7.044 L POC ABG pCO2 58.1 H POC ABG pO2 57.7 L ABG Hemoglobin 9.5 L ABG Oxyhemoglobin 81.5 L ABG Sodium 131.7 L ABG Potassium ABG Chloride 112.0 H ABG Glucose 59 L Sodium Potassium Chloride Carbon Dioxide BUN Creatinine Glucose POC Glucose 58 L Lactic Acid Calcium Magnesium Iron Total Bilirubin Direct Bilirubin AST 136 H ALT 72 H Alkaline Phosphatase 240 H Ammonia CK-MB (CK-2) CK-MB (CK-2) Rel Index Total Protein 5.1 L Albumin 2.1 L Arterial Blood Glucose 59 L Arterial Blood Ionized Calcium Urine Creatinine Urine Total Protein Salicylates Acetaminophen Crossmatch 10/16/20 10/16/20 10/16/20 12:32 13:11 13:40 WBC RBC Hgb Hct MCV MCH MCHC RDW Plt Count [place] % (Auto) [place] # (Auto) Seg Neutrophils % Seg Neuts % (Manual) Lymphocytes % (Manual) Monocytes % (Manual) Basophils % (Manual) Nucleated RBC % Seg Neutrophils # Seg Neutrophils # Man Lymphocytes # (Manual) Monocytes # (Manual) Basophils # (Manual) PT INR APTT Fibrinogen D-Dimer ABG pH POC ABG pCO2 POC ABG pO2 ABG Hemoglobin ABG Oxyhemoglobin ABG Sodium ABG Potassium ABG Chloride ABG Glucose Sodium Potassium Chloride Carbon Dioxide BUN Creatinine Glucose POC Glucose 27 L 54 L 69 L Lactic Acid Calcium Magnesium Iron Total Bilirubin Direct Bilirubin AST ALT Alkaline Phosphatase Ammonia CK-MB (CK-2) CK-MB (CK-2) Rel Index Total Protein Albumin Arterial Blood Glucose Arterial Blood Ionized Calcium Urine Creatinine Urine Total Protein Salicylates Acetaminophen Crossmatch 10/16/20 10/16/20 10/16/20 15:13 17:15 17:34 WBC RBC Hgb Hct MCV MCH MCHC RDW Plt Count [place] % (Auto) [place] # (Auto) Seg Neutrophils % Seg Neuts % (Manual) Lymphocytes % (Manual) Monocytes % (Manual) Basophils % (Manual) Nucleated RBC % Seg Neutrophils # Seg Neutrophils # Man Lymphocytes # (Manual) Monocytes # (Manual) Basophils # (Manual) PT INR APTT Fibrinogen D-Dimer ABG pH POC ABG pCO2 POC ABG pO2 ABG Hemoglobin ABG Oxyhemoglobin ABG Sodium ABG Potassium ABG Chloride ABG Glucose Sodium Potassium Chloride Carbon Dioxide BUN Creatinine Glucose POC Glucose 46 L 54 L 119 H Lactic Acid Calcium Magnesium Iron Total Bilirubin Direct Bilirubin AST ALT Alkaline Phosphatase Ammonia CK-MB (CK-2) CK-MB (CK-2) Rel Index Total Protein Albumin Arterial Blood Glucose Arterial Blood Ionized Calcium Urine Creatinine Urine Total Protein Salicylates Acetaminophen Crossmatch 10/16/20 10/16/20 10/16/20 18:51 19:37 21:00 WBC RBC Hgb Hct MCV MCH MCHC RDW Plt Count [place] % (Auto) [place] # (Auto) Seg Neutrophils % Seg Neuts % (Manual) Lymphocytes % (Manual) Monocytes % (Manual) Basophils % (Manual) Nucleated RBC % Seg Neutrophils # Seg Neutrophils # Man Lymphocytes # (Manual) Monocytes # (Manual) Basophils # (Manual) PT INR APTT Fibrinogen D-Dimer ABG pH 7.122 L POC ABG pCO2 49.8 H POC ABG pO2 62.1 L ABG Hemoglobin 9.1 L ABG Oxyhemoglobin 89.6 L ABG Sodium 130.1 L ABG Potassium 3.0 L ABG Chloride 111.0 H ABG Glucose 106 H Sodium Potassium Chloride Carbon Dioxide BUN Creatinine Glucose POC Glucose 64 L 114 H Lactic Acid Calcium Magnesium Iron Total Bilirubin Direct Bilirubin AST ALT Alkaline Phosphatase Ammonia CK-MB (CK-2) CK-MB (CK-2) Rel Index Total Protein Albumin Arterial Blood Glucose 106 H Arterial Blood Ionized Calcium Urine Creatinine Urine Total Protein Salicylates Acetaminophen Crossmatch 10/16/20 10/16/20 10/17/20 22:01 22:58 00:58 WBC RBC Hgb Hct MCV MCH MCHC RDW Plt Count [place] % (Auto) [place] # (Auto) Seg Neutrophils % Seg Neuts % (Manual) Lymphocytes % (Manual) Monocytes % (Manual) Basophils % (Manual) Nucleated RBC % Seg Neutrophils # Seg Neutrophils # Man Lymphocytes # (Manual) Monocytes # (Manual) Basophils # (Manual) PT INR APTT Fibrinogen D-Dimer ABG pH POC ABG pCO2 POC ABG pO2 ABG Hemoglobin ABG Oxyhemoglobin ABG Sodium ABG Potassium ABG Chloride ABG Glucose Sodium 133 L Potassium 3.5 L Chloride 107.7 H Carbon Dioxide 15 L BUN 29 H Creatinine 2.6 H Glucose POC Glucose 63 L 292 H Lactic Acid Calcium 7.9 L Magnesium Iron Total Bilirubin Direct Bilirubin AST ALT Alkaline Phosphatase Ammonia CK-MB (CK-2) CK-MB (CK-2) Rel Index Total Protein Albumin Arterial Blood Glucose Arterial Blood Ionized Calcium Urine Creatinine Urine Total Protein Salicylates Acetaminophen Crossmatch 10/17/20 10/17/20 10/17/20 02:04 03:08 03:55 WBC RBC Hgb Hct MCV MCH MCHC RDW Plt Count [place] % (Auto) [place] # (Auto) Seg Neutrophils % Seg Neuts % (Manual) Lymphocytes % (Manual) Monocytes % (Manual) Basophils % (Manual) Nucleated RBC % Seg Neutrophils # Seg Neutrophils # Man Lymphocytes # (Manual) Monocytes # (Manual) Basophils # (Manual) PT INR APTT Fibrinogen D-Dimer ABG pH POC ABG pCO2 POC ABG pO2 ABG Hemoglobin ABG Oxyhemoglobin ABG Sodium ABG Potassium ABG Chloride ABG Glucose Sodium Potassium Chloride Carbon Dioxide BUN Creatinine Glucose POC Glucose 200 H 173 H 161 H Lactic Acid Calcium Magnesium Iron Total Bilirubin Direct Bilirubin AST ALT Alkaline Phosphatase Ammonia CK-MB (CK-2) CK-MB (CK-2) Rel Index Total Protein Albumin Arterial Blood Glucose Arterial Blood Ionized Calcium Urine Creatinine Urine Total Protein Salicylates Acetaminophen Crossmatch 10/17/20 10/17/20 10/17/20 04:00 04:49 04:49 WBC 17.7 H RBC 3.21 L Hgb 7.5 L Hct 25.4 L MCV 79 L MCH 24 L MCHC 30 L RDW 34.0 H Plt Count 40 L [place] % (Auto) [place] # (Auto) Seg Neutrophils % Seg Neuts % (Manual) Lymphocytes % (Manual) 3.0 L Monocytes % (Manual) Basophils % (Manual) Nucleated RBC % 3.0 H Seg Neutrophils # Seg Neutrophils # Man 10.6 H Lymphocytes # (Manual) 0.5 L Monocytes # (Manual) 1.1 H Basophils # (Manual) PT INR APTT Fibrinogen D-Dimer ABG pH 7.116 L POC ABG pCO2 POC ABG pO2 61.1 L ABG Hemoglobin 8.4 L ABG Oxyhemoglobin 90.2 L ABG Sodium 125.0 L ABG Potassium 3.1 L ABG Chloride ABG Glucose 155 H Sodium 133 L Potassium 3.3 L Chloride Carbon Dioxide 15 L BUN 29 H Creatinine 2.7 H Glucose 138 H POC Glucose Lactic Acid Calcium 7.8 L Magnesium Iron Total Bilirubin Direct Bilirubin AST ALT Alkaline Phosphatase Ammonia CK-MB (CK-2) CK-MB (CK-2) Rel Index Total Protein Albumin Arterial Blood Glucose 155 H Arterial Blood Ionized Calcium Urine Creatinine Urine Total Protein Salicylates Acetaminophen Crossmatch 10/17/20 10/17/20 10/17/20 04:58 06:01 07:50 WBC RBC Hgb Hct MCV MCH MCHC RDW Plt Count [place] % (Auto) [place] # (Auto) Seg Neutrophils % Seg Neuts % (Manual) Lymphocytes % (Manual) Monocytes % (Manual) Basophils % (Manual) Nucleated RBC % Seg Neutrophils # Seg Neutrophils # Man Lymphocytes # (Manual) Monocytes # (Manual) Basophils # (Manual) PT INR APTT Fibrinogen D-Dimer ABG pH POC ABG pCO2 POC ABG pO2 ABG Hemoglobin ABG Oxyhemoglobin ABG Sodium ABG Potassium ABG Chloride ABG Glucose Sodium Potassium Chloride Carbon Dioxide BUN Creatinine Glucose POC Glucose 137 H 119 H 106 H Lactic Acid Calcium Magnesium Iron Total Bilirubin Direct Bilirubin AST ALT Alkaline Phosphatase Ammonia CK-MB (CK-2) CK-MB (CK-2) Rel Index Total Protein Albumin Arterial Blood Glucose Arterial Blood Ionized Calcium Urine Creatinine Urine Total Protein Salicylates Acetaminophen Crossmatch 10/17/20 10/17/20 10/17/20 11:50 15:11 18:11 WBC RBC Hgb Hct MCV MCH MCHC RDW Plt Count [place] % (Auto) [place] # (Auto) Seg Neutrophils % Seg Neuts % (Manual) Lymphocytes % (Manual) Monocytes % (Manual) Basophils % (Manual) Nucleated RBC % Seg Neutrophils # Seg Neutrophils # Man Lymphocytes # (Manual) Monocytes # (Manual) Basophils # (Manual) PT INR APTT Fibrinogen D-Dimer ABG pH POC ABG pCO2 POC ABG pO2 ABG Hemoglobin ABG Oxyhemoglobin ABG Sodium ABG Potassium ABG Chloride ABG Glucose Sodium Potassium Chloride Carbon Dioxide BUN Creatinine Glucose POC Glucose 111 H 114 H 137 H Lactic Acid Calcium Magnesium Iron Total Bilirubin Direct Bilirubin AST ALT Alkaline Phosphatase Ammonia CK-MB (CK-2) CK-MB (CK-2) Rel Index Total Protein Albumin Arterial Blood Glucose Arterial Blood Ionized Calcium Urine Creatinine Urine Total Protein Salicylates Acetaminophen Crossmatch 10/17/20 10/17/20 10/18/20 19:51 23:32 04:00 WBC RBC Hgb Hct MCV MCH MCHC RDW Plt Count [place] % (Auto) [place] # (Auto) Seg Neutrophils % Seg Neuts % (Manual) Lymphocytes % (Manual) Monocytes % (Manual) Basophils % (Manual) Nucleated RBC % Seg Neutrophils # Seg Neutrophils # Man Lymphocytes # (Manual) Monocytes # (Manual) Basophils # (Manual) PT INR APTT Fibrinogen D-Dimer ABG pH 7.276 L POC ABG pCO2 POC ABG pO2 77.7 L ABG Hemoglobin 7.2 L ABG Oxyhemoglobin ABG Sodium 122.6 L ABG Potassium ABG Chloride ABG Glucose 113 H Sodium Potassium Chloride Carbon Dioxide BUN Creatinine Glucose POC Glucose 130 H 114 H Lactic Acid Calcium Magnesium Iron Total Bilirubin Direct Bilirubin AST ALT Alkaline Phosphatase Ammonia CK-MB (CK-2) CK-MB (CK-2) Rel Index Total Protein Albumin Arterial Blood Glucose 113 H Arterial Blood Ionized Calcium Urine Creatinine Urine Total Protein Salicylates Acetaminophen Crossmatch 10/18/20 10/18/20 10/18/20 04:06 04:06 04:13 WBC RBC Hgb Hct MCV MCH MCHC RDW Plt Count [place] % (Auto) [place] # (Auto) Seg Neutrophils % Seg Neuts % (Manual) Lymphocytes % (Manual) Monocytes % (Manual) Basophils % (Manual) Nucleated RBC % Seg Neutrophils # Seg Neutrophils # Man Lymphocytes # (Manual) Monocytes # (Manual) Basophils # (Manual) PT 23.5 H INR 2.05 H APTT Fibrinogen D-Dimer ABG pH POC ABG pCO2 POC ABG pO2 ABG Hemoglobin ABG Oxyhemoglobin ABG Sodium ABG Potassium ABG Chloride ABG Glucose Sodium 123 L D Potassium Chloride 97.9 L Carbon Dioxide 16 L BUN 31 H Creatinine 3.1 H Glucose 113 H POC Glucose 108 H Lactic Acid Calcium 7.4 L Magnesium Iron Total Bilirubin Direct Bilirubin AST ALT Alkaline Phosphatase Ammonia CK-MB (CK-2) CK-MB (CK-2) Rel Index Total Protein Albumin Arterial Blood Glucose Arterial Blood Ionized Calcium Urine Creatinine Urine Total Protein Salicylates Acetaminophen Crossmatch 10/18/20 10/18/20 10/18/20 10:03 14:12 19:08 WBC RBC Hgb Hct MCV MCH MCHC RDW Plt Count [place] % (Auto) [place] # (Auto) Seg Neutrophils % Seg Neuts % (Manual) Lymphocytes % (Manual) Monocytes % (Manual) Basophils % (Manual) Nucleated RBC % Seg Neutrophils # Seg Neutrophils # Man Lymphocytes # (Manual) Monocytes # (Manual) Basophils # (Manual) PT INR APTT Fibrinogen D-Dimer ABG pH POC ABG pCO2 POC ABG pO2 ABG Hemoglobin ABG Oxyhemoglobin ABG Sodium ABG Potassium ABG Chloride ABG Glucose Sodium Potassium Chloride Carbon Dioxide BUN Creatinine Glucose POC Glucose 139 H 112 H Lactic Acid Calcium Magnesium Iron Total Bilirubin Direct Bilirubin AST ALT Alkaline Phosphatase Ammonia CK-MB (CK-2) CK-MB (CK-2) Rel Index Total Protein Albumin Arterial Blood Glucose Arterial Blood Ionized Calcium Urine Creatinine Urine Total Protein Salicylates Acetaminophen Crossmatch See Detail 10/18/20 10/19/20 10/19/20 Unknown 02:02 04:00 WBC 19.8 H RBC 2.95 L Hgb 6.9 L Hct 22.2 L MCV 75 L MCH 24 L MCHC 31 L RDW 33.6 H Plt Count 28 L [place] % (Auto) [place] # (Auto) Seg Neutrophils % Seg Neuts % (Manual) Lymphocytes % (Manual) Monocytes % (Manual) Basophils % (Manual) Nucleated RBC % Seg Neutrophils # Seg Neutrophils # Man Lymphocytes # (Manual) Monocytes # (Manual) Basophils # (Manual) PT INR APTT Fibrinogen D-Dimer ABG pH 7.234 L POC ABG pCO2 POC ABG pO2 53.9 L ABG Hemoglobin 8.9 L ABG Oxyhemoglobin 86.6 L ABG Sodium 118.1 L ABG Potassium ABG Chloride 94.0 L ABG Glucose 61 L Sodium Potassium Chloride Carbon Dioxide BUN Creatinine Glucose POC Glucose 64 L Lactic Acid Calcium Magnesium Iron Total Bilirubin Direct Bilirubin AST ALT Alkaline Phosphatase Ammonia CK-MB (CK-2) CK-MB (CK-2) Rel Index Total Protein Albumin Arterial Blood Glucose 61 L Arterial Blood Ionized Calcium 4.5 L Urine Creatinine Urine Total Protein Salicylates Acetaminophen Crossmatch 10/19/20 10/19/20 10/19/20 04:51 04:51 05:43 WBC 18.2 H RBC 3.26 L Hgb 7.9 L Hct 24.6 L MCV 76 L MCH 24 L MCHC RDW 30.7 H Plt Count 41 L [place] % (Auto) [place] # (Auto) Seg Neutrophils % Seg Neuts % (Manual) Lymphocytes % (Manual) Monocytes % (Manual) Basophils % (Manual) Nucleated RBC % Seg Neutrophils # Seg Neutrophils # Man Lymphocytes # (Manual) Monocytes # (Manual) Basophils # (Manual) PT INR APTT Fibrinogen D-Dimer ABG pH POC ABG pCO2 POC ABG pO2 ABG Hemoglobin ABG Oxyhemoglobin ABG Sodium ABG Potassium ABG Chloride ABG Glucose Sodium 122 L Potassium Chloride 94.6 L Carbon Dioxide 17 L BUN 33 H Creatinine 3.5 H Glucose 63 L POC Glucose 54 L Lactic Acid Calcium 7.3 L Magnesium Iron Total Bilirubin 1.50 H Direct Bilirubin 0.9 H AST ALT Alkaline Phosphatase 154 H Ammonia CK-MB (CK-2) CK-MB (CK-2) Rel Index Total Protein 4.2 L Albumin 1.9 L Arterial Blood Glucose Arterial Blood Ionized Calcium Urine Creatinine Urine Total Protein Salicylates Acetaminophen Crossmatch 10/19/20 10/19/20 10/19/20 11:23 11:45 14:24 WBC RBC Hgb Hct MCV MCH MCHC RDW Plt Count [place] % (Auto) [place] # (Auto) Seg Neutrophils % Seg Neuts % (Manual) Lymphocytes % (Manual) Monocytes % (Manual) Basophils % (Manual) Nucleated RBC % Seg Neutrophils # Seg Neutrophils # Man Lymphocytes # (Manual) Monocytes # (Manual) Basophils # (Manual) PT INR APTT Fibrinogen D-Dimer ABG pH POC ABG pCO2 POC ABG pO2 ABG Hemoglobin ABG Oxyhemoglobin ABG Sodium ABG Potassium ABG Chloride ABG Glucose Sodium Potassium Chloride Carbon Dioxide BUN Creatinine Glucose POC Glucose 47 L 117 H 47 L Lactic Acid Calcium Magnesium Iron Total Bilirubin Direct Bilirubin AST ALT Alkaline Phosphatase Ammonia CK-MB (CK-2) CK-MB (CK-2) Rel Index Total Protein Albumin Arterial Blood Glucose Arterial Blood Ionized Calcium Urine Creatinine Urine Total Protein Salicylates Acetaminophen Crossmatch 10/19/20 10/19/20 10/19/20 16:31 20:04 20:19 WBC RBC Hgb Hct MCV MCH MCHC RDW Plt Count [place] % (Auto) [place] # (Auto) Seg Neutrophils % Seg Neuts % (Manual) Lymphocytes % (Manual) Monocytes % (Manual) Basophils % (Manual) Nucleated RBC % Seg Neutrophils # Seg Neutrophils # Man Lymphocytes # (Manual) Monocytes # (Manual) Basophils # (Manual) PT INR APTT Fibrinogen D-Dimer ABG pH POC ABG pCO2 POC ABG pO2 ABG Hemoglobin ABG Oxyhemoglobin ABG Sodium ABG Potassium ABG Chloride ABG Glucose Sodium Potassium Chloride Carbon Dioxide BUN Creatinine Glucose 59 L POC Glucose 58 L 49 L Lactic Acid Calcium Magnesium Iron Total Bilirubin Direct Bilirubin AST ALT Alkaline Phosphatase Ammonia CK-MB (CK-2) CK-MB (CK-2) Rel Index Total Protein Albumin Arterial Blood Glucose Arterial Blood Ionized Calcium Urine Creatinine Urine Total Protein Salicylates Acetaminophen Crossmatch 10/20/20 10/20/20 10/20/20 00:17 03:59 08:43 WBC 13.1 H RBC 3.42 L Hgb 8.3 L Hct 25.3 L MCV 74 L MCH 24 L MCHC RDW 31.4 H Plt Count 35 L [place] % (Auto) [place] # (Auto) Seg Neutrophils % Seg Neuts % (Manual) Lymphocytes % (Manual) Monocytes % (Manual) Basophils % (Manual) Nucleated RBC % Seg Neutrophils # Seg Neutrophils # Man Lymphocytes # (Manual) Monocytes # (Manual) Basophils # (Manual) PT INR APTT Fibrinogen D-Dimer ABG pH POC ABG pCO2 POC ABG pO2 ABG Hemoglobin ABG Oxyhemoglobin ABG Sodium ABG Potassium ABG Chloride ABG Glucose Sodium Potassium Chloride Carbon Dioxide BUN Creatinine Glucose POC Glucose 29 L 47 L Lactic Acid Calcium Magnesium Iron Total Bilirubin Direct Bilirubin AST ALT Alkaline Phosphatase Ammonia CK-MB (CK-2) CK-MB (CK-2) Rel Index Total Protein Albumin Arterial Blood Glucose Arterial Blood Ionized Calcium Urine Creatinine Urine Total Protein Salicylates Acetaminophen Crossmatch 10/20/20 10/20/20 10/20/20 08:43 08:43 09:56 WBC RBC Hgb Hct MCV MCH MCHC RDW Plt Count [place] % (Auto) [place] # (Auto) Seg Neutrophils % Seg Neuts % (Manual) Lymphocytes % (Manual) Monocytes % (Manual) Basophils % (Manual) Nucleated RBC % Seg Neutrophils # Seg Neutrophils # Man Lymphocytes # (Manual) Monocytes # (Manual) Basophils # (Manual) PT 30.1 H INR 2.82 H APTT Fibrinogen D-Dimer ABG pH POC ABG pCO2 POC ABG pO2 ABG Hemoglobin ABG Oxyhemoglobin ABG Sodium ABG Potassium ABG Chloride ABG Glucose Sodium 119 L* Potassium Chloride 90.7 L Carbon Dioxide 20 L BUN 35 H Creatinine 3.3 H Glucose 57 L POC Glucose 61 L Lactic Acid Calcium 7.7 L Magnesium 1.30 L Iron Total Bilirubin 1.60 H Direct Bilirubin AST ALT Alkaline Phosphatase 152 H Ammonia CK-MB (CK-2) CK-MB (CK-2) Rel Index Total Protein 4.5 L Albumin 1.6 L Arterial Blood Glucose Arterial Blood Ionized Calcium Urine Creatinine Urine Total Protein Salicylates Acetaminophen Crossmatch 10/20/20 10/20/20 10/20/20 15:35 17:30 20:17 WBC RBC Hgb Hct MCV MCH MCHC RDW Plt Count [place] % (Auto) [place] # (Auto) Seg Neutrophils % Seg Neuts % (Manual) Lymphocytes % (Manual) Monocytes % (Manual) Basophils % (Manual) Nucleated RBC % Seg Neutrophils # Seg Neutrophils # Man Lymphocytes # (Manual) Monocytes # (Manual) Basophils # (Manual) PT INR APTT Fibrinogen D-Dimer ABG pH POC ABG pCO2 POC ABG pO2 ABG Hemoglobin ABG Oxyhemoglobin ABG Sodium ABG Potassium ABG Chloride ABG Glucose Sodium 121 L 120 L Potassium Chloride Carbon Dioxide BUN Creatinine Glucose POC Glucose 61 L Lactic Acid Calcium Magnesium Iron Total Bilirubin Direct Bilirubin AST ALT Alkaline Phosphatase Ammonia CK-MB (CK-2) CK-MB (CK-2) Rel Index Total Protein Albumin Arterial Blood Glucose Arterial Blood Ionized Calcium Urine Creatinine Urine Total Protein Salicylates Acetaminophen Crossmatch 10/20/20 10/20/20 10/21/20 23:00 23:37 01:00 WBC RBC Hgb Hct MCV MCH MCHC RDW Plt Count [place] % (Auto) [place] # (Auto) Seg Neutrophils % Seg Neuts % (Manual) Lymphocytes % (Manual) Monocytes % (Manual) Basophils % (Manual) Nucleated RBC % Seg Neutrophils # Seg Neutrophils # Man Lymphocytes # (Manual) Monocytes # (Manual) Basophils # (Manual) PT INR APTT Fibrinogen D-Dimer ABG pH POC ABG pCO2 POC ABG pO2 ABG Hemoglobin ABG Oxyhemoglobin ABG Sodium ABG Potassium ABG Chloride ABG Glucose Sodium 121 L Potassium Chloride Carbon Dioxide BUN Creatinine Glucose POC Glucose 33 L 36 L Lactic Acid Calcium Magnesium Iron Total Bilirubin Direct Bilirubin AST ALT Alkaline Phosphatase Ammonia CK-MB (CK-2) CK-MB (CK-2) Rel Index Total Protein Albumin Arterial Blood Glucose Arterial Blood Ionized Calcium Urine Creatinine Urine Total Protein Salicylates Acetaminophen Crossmatch 10/21/20 10/21/20 10/21/20 02:31 04:00 05:22 WBC RBC Hgb Hct MCV MCH MCHC RDW Plt Count [place] % (Auto) [place] # (Auto) Seg Neutrophils % Seg Neuts % (Manual) Lymphocytes % (Manual) Monocytes % (Manual) Basophils % (Manual) Nucleated RBC % Seg Neutrophils # Seg Neutrophils # Man Lymphocytes # (Manual) Monocytes # (Manual) Basophils # (Manual) PT INR APTT Fibrinogen D-Dimer ABG pH POC ABG pCO2 POC ABG pO2 66.6 L ABG Hemoglobin 8.7 L ABG Oxyhemoglobin 92.1 L ABG Sodium 117.9 L ABG Potassium 3.2 L ABG Chloride 93.0 L ABG Glucose Sodium Potassium Chloride Carbon Dioxide BUN Creatinine Glucose POC Glucose 51 L 64 L Lactic Acid Calcium Magnesium Iron Total Bilirubin Direct Bilirubin AST ALT Alkaline Phosphatase Ammonia CK-MB (CK-2) CK-MB (CK-2) Rel Index Total Protein Albumin Arterial Blood Glucose Arterial Blood Ionized Calcium 4.4 L Urine Creatinine Urine Total Protein Salicylates Acetaminophen Crossmatch 10/21/20 10/21/20 10/21/20 05:50 05:50 10:32 WBC 11.1 H RBC 3.27 L Hgb 7.9 L Hct 23.9 L MCV 73 L MCH 24 L MCHC RDW 31.8 H Plt Count 26 L [place] % (Auto) [place] # (Auto) Seg Neutrophils % Seg Neuts % (Manual) Lymphocytes % (Manual) Monocytes % (Manual) Basophils % (Manual) Nucleated RBC % Seg Neutrophils # Seg Neutrophils # Man Lymphocytes # (Manual) Monocytes # (Manual) Basophils # (Manual) PT INR APTT Fibrinogen D-Dimer ABG pH POC ABG pCO2 POC ABG pO2 ABG Hemoglobin ABG Oxyhemoglobin ABG Sodium ABG Potassium ABG Chloride ABG Glucose Sodium 122 L Potassium 3.4 L Chloride 91.1 L Carbon Dioxide BUN 38 H Creatinine 3.2 H Glucose 56 L POC Glucose 68 L Lactic Acid Calcium 7.8 L Magnesium 1.60 L Iron Total Bilirubin Direct Bilirubin AST ALT Alkaline Phosphatase Ammonia CK-MB (CK-2) CK-MB (CK-2) Rel Index Total Protein Albumin Arterial Blood Glucose Arterial Blood Ionized Calcium Urine Creatinine Urine Total Protein Salicylates Acetaminophen Crossmatch 10/21/20 10/21/20 10/21/20 14:05 17:15 18:41 WBC RBC Hgb Hct MCV MCH MCHC RDW Plt Count [place] % (Auto) [place] # (Auto) Seg Neutrophils % Seg Neuts % (Manual) Lymphocytes % (Manual) Monocytes % (Manual) Basophils % (Manual) Nucleated RBC % Seg Neutrophils # Seg Neutrophils # Man Lymphocytes # (Manual) Monocytes # (Manual) Basophils # (Manual) PT INR APTT Fibrinogen D-Dimer ABG pH POC ABG pCO2 POC ABG pO2 ABG Hemoglobin ABG Oxyhemoglobin ABG Sodium ABG Potassium ABG Chloride ABG Glucose Sodium Potassium Chloride Carbon Dioxide BUN Creatinine Glucose POC Glucose 61 L 53 L 110 H Lactic Acid Calcium Magnesium Iron Total Bilirubin Direct Bilirubin AST ALT Alkaline Phosphatase Ammonia CK-MB (CK-2) CK-MB (CK-2) Rel Index Total Protein Albumin Arterial Blood Glucose Arterial Blood Ionized Calcium Urine Creatinine Urine Total Protein Salicylates Acetaminophen Crossmatch 10/21/20 10/21/20 10/21/20 21:08 22:20 Unknown WBC RBC Hgb Hct MCV MCH MCHC RDW Plt Count [place] % (Auto) [place] # (Auto) Seg Neutrophils % Seg Neuts % (Manual) Lymphocytes % (Manual) Monocytes % (Manual) Basophils % (Manual) Nucleated RBC % Seg Neutrophils # Seg Neutrophils # Man Lymphocytes # (Manual) Monocytes # (Manual) Basophils # (Manual) PT INR APTT Fibrinogen D-Dimer ABG pH POC ABG pCO2 POC ABG pO2 ABG Hemoglobin ABG Oxyhemoglobin ABG Sodium ABG Potassium ABG Chloride ABG Glucose Sodium 123 L 125 L Potassium 3.2 L Chloride 94.1 L Carbon Dioxide BUN 40 H Creatinine 3.3 H Glucose 64 L POC Glucose 117 H Lactic Acid Calcium 7.6 L Magnesium Iron Total Bilirubin Direct Bilirubin AST ALT Alkaline Phosphatase Ammonia CK-MB (CK-2) CK-MB (CK-2) Rel Index Total Protein Albumin Arterial Blood Glucose Arterial Blood Ionized Calcium Urine Creatinine Urine Total Protein Salicylates Acetaminophen Crossmatch 10/21/20 10/21/20 10/22/20 Unknown Unknown 02:43 WBC RBC 3.40 L Hgb 8.4 L Hct 24.8 L MCV 73 L MCH 25 L MCHC RDW 31.5 H Plt Count 21 L [place] % (Auto) [place] # (Auto) Seg Neutrophils % Seg Neuts % (Manual) 83.0 H Lymphocytes % (Manual) 10.0 L Monocytes % (Manual) Basophils % (Manual) Nucleated RBC % 2.0 H Seg Neutrophils # Seg Neutrophils # Man 9.0 H Lymphocytes # (Manual) 1.1 L Monocytes # (Manual) Basophils # (Manual) PT 27.0 H INR 2.44 H APTT 61.4 H* Fibrinogen 482 H D-Dimer 1992.93 H ABG pH POC ABG pCO2 POC ABG pO2 ABG Hemoglobin ABG Oxyhemoglobin ABG Sodium ABG Potassium ABG Chloride ABG Glucose Sodium 122 L Potassium 3.1 L Chloride 92.9 L Carbon Dioxide BUN 44 H Creatinine 3.2 H Glucose POC Glucose Lactic Acid Calcium 7.8 L Magnesium Iron Total Bilirubin Direct Bilirubin AST ALT Alkaline Phosphatase Ammonia CK-MB (CK-2) CK-MB (CK-2) Rel Index Total Protein Albumin Arterial Blood Glucose Arterial Blood Ionized Calcium Urine Creatinine Urine Total Protein Salicylates Acetaminophen Crossmatch 10/22/20 10/22/20 10/22/20 04:00 06:00 20:00 WBC RBC 3.29 L Hgb 8.0 L Hct 24.3 L MCV 74 L MCH 24 L MCHC RDW 32.2 H Plt Count 21 L [place] % (Auto) [place] # (Auto) Seg Neutrophils % Seg Neuts % (Manual) Lymphocytes % (Manual) Monocytes % (Manual) Basophils % (Manual) Nucleated RBC % Seg Neutrophils # Seg Neutrophils # Man Lymphocytes # (Manual) Monocytes # (Manual) Basophils # (Manual) PT INR APTT Fibrinogen D-Dimer ABG pH POC ABG pCO2 29.1 L POC ABG pO2 64.1 L ABG Hemoglobin 8.2 L ABG Oxyhemoglobin 90.6 L ABG Sodium 118.8 L ABG Potassium ABG Chloride 96.0 L ABG Glucose 117 H Sodium 126 L Potassium Chloride 95.8 L Carbon Dioxide 21 L BUN 50 H Creatinine 3.4 H Glucose POC Glucose Lactic Acid Calcium 7.9 L Magnesium Iron Total Bilirubin Direct Bilirubin AST ALT Alkaline Phosphatase Ammonia CK-MB (CK-2) CK-MB (CK-2) Rel Index Total Protein Albumin Arterial Blood Glucose 117 H Arterial Blood Ionized Calcium Urine Creatinine Urine Total Protein Salicylates Acetaminophen Crossmatch 10/23/20 10/23/20 10/23/20 04:00 05:35 05:35 WBC RBC 2.94 L Hgb 7.3 L Hct 21.3 L MCV 72 L MCH 25 L MCHC RDW 32.3 H Plt Count 56 L D [place] % (Auto) [place] # (Auto) Seg Neutrophils % Seg Neuts % (Manual) 83.0 H Lymphocytes % (Manual) 9.0 L Monocytes % (Manual) Basophils % (Manual) Nucleated RBC % 3.0 H Seg Neutrophils # Seg Neutrophils # Man Lymphocytes # (Manual) 0.7 L Monocytes # (Manual) Basophils # (Manual) PT INR APTT Fibrinogen D-Dimer ABG pH POC ABG pCO2 29.0 L POC ABG pO2 ABG Hemoglobin 7.7 L ABG Oxyhemoglobin ABG Sodium 120.4 L ABG Potassium ABG Chloride 97.0 L ABG Glucose Sodium 128 L Potassium Chloride 96.7 L Carbon Dioxide BUN 56 H Creatinine 3.4 H Glucose POC Glucose Lactic Acid Calcium Magnesium Iron Total Bilirubin Direct Bilirubin AST ALT Alkaline Phosphatase Ammonia CK-MB (CK-2) CK-MB (CK-2) Rel Index Total Protein Albumin Arterial Blood Glucose Arterial Blood Ionized Calcium Urine Creatinine Urine Total Protein Salicylates Acetaminophen Crossmatch 10/23/20 10/24/20 10/24/20 21:01 03:00 05:27 WBC RBC 2.98 L Hgb 7.4 L Hct 21.8 L MCV 73 L MCH 25 L MCHC RDW 32.2 H Plt Count 56 L [place] % (Auto) [place] # (Auto) Seg Neutrophils % Seg Neuts % (Manual) Lymphocytes % (Manual) Monocytes % (Manual) Basophils % (Manual) Nucleated RBC % Seg Neutrophils # Seg Neutrophils # Man Lymphocytes # (Manual) Monocytes # (Manual) Basophils # (Manual) PT INR APTT Fibrinogen D-Dimer ABG pH 7.490 H POC ABG pCO2 26.8 L POC ABG pO2 ABG Hemoglobin 3.3 L ABG Oxyhemoglobin 83.6 L ABG Sodium 118.0 L ABG Potassium ABG Chloride 97.0 L ABG Glucose Sodium Potassium Chloride Carbon Dioxide BUN Creatinine Glucose POC Glucose > 600 H Lactic Acid Calcium Magnesium Iron Total Bilirubin Direct Bilirubin AST ALT Alkaline Phosphatase Ammonia CK-MB (CK-2) CK-MB (CK-2) Rel Index Total Protein Albumin Arterial Blood Glucose Arterial Blood Ionized Calcium 4.5 L Urine Creatinine Urine Total Protein Salicylates Acetaminophen Crossmatch 10/24/20 10/24/20 10/24/20 05:27 05:27 10:07 WBC RBC Hgb Hct MCV MCH MCHC RDW Plt Count [place] % (Auto) [place] # (Auto) Seg Neutrophils % Seg Neuts % (Manual) Lymphocytes % (Manual) Monocytes % (Manual) Basophils % (Manual) Nucleated RBC % Seg Neutrophils # Seg Neutrophils # Man Lymphocytes # (Manual) Monocytes # (Manual) Basophils # (Manual) PT 20.4 H INR 1.70 H APTT Fibrinogen D-Dimer ABG pH POC ABG pCO2 POC ABG pO2 ABG Hemoglobin ABG Oxyhemoglobin ABG Sodium ABG Potassium ABG Chloride ABG Glucose Sodium 123 L Potassium 3.5 L Chloride 93.3 L Carbon Dioxide 20 L BUN 66 H Creatinine 3.9 H Glucose POC Glucose 110 H Lactic Acid Calcium 8.1 L Magnesium Iron Total Bilirubin Direct Bilirubin AST 54 H ALT Alkaline Phosphatase 316 H Ammonia CK-MB (CK-2) CK-MB (CK-2) Rel Index Total Protein 5.1 L Albumin 1.7 L Arterial Blood Glucose Arterial Blood Ionized Calcium Urine Creatinine Urine Total Protein Salicylates Acetaminophen Crossmatch 10/24/20 10/24/20 10/24/20 18:24 23:11 23:28 WBC RBC Hgb Hct MCV MCH MCHC RDW Plt Count [place] % (Auto) [place] # (Auto) Seg Neutrophils % Seg Neuts % (Manual) Lymphocytes % (Manual) Monocytes % (Manual) Basophils % (Manual) Nucleated RBC % Seg Neutrophils # Seg Neutrophils # Man Lymphocytes # (Manual) Monocytes # (Manual) Basophils # (Manual) PT INR APTT Fibrinogen D-Dimer ABG pH POC ABG pCO2 POC ABG pO2 ABG Hemoglobin ABG Oxyhemoglobin ABG Sodium ABG Potassium ABG Chloride ABG Glucose Sodium Potassium Chloride Carbon Dioxide BUN Creatinine Glucose 142 H POC Glucose 121 H 137 H Lactic Acid Calcium Magnesium Iron Total Bilirubin Direct Bilirubin AST ALT Alkaline Phosphatase Ammonia CK-MB (CK-2) CK-MB (CK-2) Rel Index Total Protein Albumin Arterial Blood Glucose Arterial Blood Ionized Calcium Urine Creatinine Urine Total Protein Salicylates Acetaminophen Crossmatch 10/25/20 10/25/20 10/25/20 05:22 05:22 05:28 WBC RBC Hgb Hct MCV MCH MCHC RDW Plt Count [place] % (Auto) [place] # (Auto) Seg Neutrophils % Seg Neuts % (Manual) Lymphocytes % (Manual) Monocytes % (Manual) Basophils % (Manual) Nucleated RBC % Seg Neutrophils # Seg Neutrophils # Man Lymphocytes # (Manual) Monocytes # (Manual) Basophils # (Manual) PT INR APTT Fibrinogen D-Dimer ABG pH POC ABG pCO2 POC ABG pO2 ABG Hemoglobin ABG Oxyhemoglobin ABG Sodium ABG Potassium ABG Chloride ABG Glucose Sodium 133 L D Potassium Chloride Carbon Dioxide BUN 55 H Creatinine 3.1 H Glucose 127 H 127 H POC Glucose 121 H Lactic Acid Calcium Magnesium Iron Total Bilirubin Direct Bilirubin AST ALT Alkaline Phosphatase Ammonia CK-MB (CK-2) CK-MB (CK-2) Rel Index Total Protein Albumin Arterial Blood Glucose Arterial Blood Ionized Calcium Urine Creatinine Urine Total Protein Salicylates Acetaminophen Crossmatch 10/25/20 10/25/20 10/25/20 08:35 11:39 15:09 WBC RBC 2.84 L Hgb 7.0 L Hct 20.9 L MCV 74 L MCH 25 L MCHC RDW 30.8 H Plt Count 101 L [place] % (Auto) [place] # (Auto) Seg Neutrophils % Seg Neuts % (Manual) Lymphocytes % (Manual) Monocytes % (Manual) Basophils % (Manual) Nucleated RBC % Seg Neutrophils # Seg Neutrophils # Man Lymphocytes # (Manual) Monocytes # (Manual) Basophils # (Manual) PT INR APTT Fibrinogen D-Dimer ABG pH POC ABG pCO2 POC ABG pO2 ABG Hemoglobin ABG Oxyhemoglobin ABG Sodium ABG Potassium ABG Chloride ABG Glucose Sodium Potassium Chloride Carbon Dioxide BUN Creatinine Glucose 179 H POC Glucose 165 H Lactic Acid Calcium Magnesium Iron Total Bilirubin Direct Bilirubin AST ALT Alkaline Phosphatase Ammonia CK-MB (CK-2) CK-MB (CK-2) Rel Index Total Protein Albumin Arterial Blood Glucose Arterial Blood Ionized Calcium Urine Creatinine Urine Total Protein Salicylates Acetaminophen Crossmatch 10/25/20 10/25/20 10/25/20 15:15 17:51 23:10 WBC RBC Hgb Hct MCV MCH MCHC RDW Plt Count [place] % (Auto) [place] # (Auto) Seg Neutrophils % Seg Neuts % (Manual) Lymphocytes % (Manual) Monocytes % (Manual) Basophils % (Manual) Nucleated RBC % Seg Neutrophils # Seg Neutrophils # Man Lymphocytes # (Manual) Monocytes # (Manual) Basophils # (Manual) PT INR APTT Fibrinogen D-Dimer ABG pH 7.478 H POC ABG pCO2 POC ABG pO2 39.0 L ABG Hemoglobin 7.7 L ABG Oxyhemoglobin 72.9 L ABG Sodium 133.3 L ABG Potassium ABG Chloride ABG Glucose 189 H Sodium Potassium Chloride Carbon Dioxide BUN Creatinine Glucose POC Glucose 132 H 140 H Lactic Acid Calcium Magnesium Iron Total Bilirubin Direct Bilirubin AST ALT Alkaline Phosphatase Ammonia CK-MB (CK-2) CK-MB (CK-2) Rel Index Total Protein Albumin Arterial Blood Glucose 189 H Arterial Blood Ionized Calcium 4.4 L Urine Creatinine Urine Total Protein Salicylates Acetaminophen Crossmatch 10/26/20 10/26/20 10/26/20 04:30 11:00 11:28 WBC RBC 2.94 L Hgb 7.3 L Hct 22.9 L MCV 76 L MCH 25 L MCHC RDW 29.8 H Plt Count 138 L [place] % (Auto) [place] # (Auto) Seg Neutrophils % Seg Neuts % (Manual) Lymphocytes % (Manual) Monocytes % (Manual) Basophils % (Manual) Nucleated RBC % Seg Neutrophils # Seg Neutrophils # Man Lymphocytes # (Manual) Monocytes # (Manual) Basophils # (Manual) PT INR APTT Fibrinogen D-Dimer ABG pH POC ABG pCO2 POC ABG pO2 ABG Hemoglobin ABG Oxyhemoglobin ABG Sodium ABG Potassium ABG Chloride ABG Glucose Sodium 136 L Potassium Chloride Carbon Dioxide BUN 44 H Creatinine 2.7 H Glucose POC Glucose 137 H Lactic Acid Calcium 8.1 L Magnesium Iron Total Bilirubin Direct Bilirubin AST ALT Alkaline Phosphatase Ammonia CK-MB (CK-2) CK-MB (CK-2) Rel Index Total Protein Albumin Arterial Blood Glucose Arterial Blood Ionized Calcium Urine Creatinine Urine Total Protein Salicylates Acetaminophen Crossmatch 10/26/20 10/26/20 10/27/20 17:06 23:11 04:30 WBC RBC Hgb Hct MCV MCH MCHC RDW Plt Count [place] % (Auto) [place] # (Auto) Seg Neutrophils % Seg Neuts % (Manual) Lymphocytes % (Manual) Monocytes % (Manual) Basophils % (Manual) Nucleated RBC % Seg Neutrophils # Seg Neutrophils # Man Lymphocytes # (Manual) Monocytes # (Manual) Basophils # (Manual) PT INR APTT Fibrinogen D-Dimer ABG pH POC ABG pCO2 POC ABG pO2 ABG Hemoglobin ABG Oxyhemoglobin ABG Sodium ABG Potassium ABG Chloride ABG Glucose Sodium Potassium Chloride Carbon Dioxide BUN 38 H Creatinine 2.5 H Glucose 108 H POC Glucose 116 H 108 H Lactic Acid Calcium Magnesium Iron Total Bilirubin Direct Bilirubin AST ALT Alkaline Phosphatase Ammonia CK-MB (CK-2) CK-MB (CK-2) Rel Index Total Protein Albumin Arterial Blood Glucose Arterial Blood Ionized Calcium Urine Creatinine Urine Total Protein Salicylates Acetaminophen Crossmatch 10/27/20 10/27/20 10/27/20 04:30 04:57 12:50 WBC RBC 2.79 L Hgb 6.9 L Hct 21.3 L MCV 76 L MCH 25 L MCHC RDW 30.2 H Plt Count [place] % (Auto) [place] # (Auto) Seg Neutrophils % Seg Neuts % (Manual) Lymphocytes % (Manual) Monocytes % (Manual) Basophils % (Manual) Nucleated RBC % Seg Neutrophils # Seg Neutrophils # Man Lymphocytes # (Manual) Monocytes # (Manual) Basophils # (Manual) PT INR APTT Fibrinogen D-Dimer ABG pH POC ABG pCO2 POC ABG pO2 ABG Hemoglobin ABG Oxyhemoglobin ABG Sodium ABG Potassium ABG Chloride ABG Glucose Sodium Potassium Chloride Carbon Dioxide BUN Creatinine Glucose POC Glucose 106 H Lactic Acid Calcium Magnesium Iron Total Bilirubin Direct Bilirubin AST ALT Alkaline Phosphatase Ammonia CK-MB (CK-2) CK-MB (CK-2) Rel Index Total Protein Albumin Arterial Blood Glucose Arterial Blood Ionized Calcium Urine Creatinine Urine Total Protein Salicylates Acetaminophen Crossmatch See Detail 10/27/20 10/27/20 10/28/20 17:29 23:14 04:30 WBC 12.2 H RBC 3.07 L Hgb 7.8 L Hct 24.3 L MCV 79 L MCH 25 L MCHC RDW 29.5 H Plt Count [place] % (Auto) [place] # (Auto) Seg Neutrophils % Seg Neuts % (Manual) Lymphocytes % (Manual) Monocytes % (Manual) Basophils % (Manual) Nucleated RBC % Seg Neutrophils # Seg Neutrophils # Man Lymphocytes # (Manual) Monocytes # (Manual) Basophils # (Manual) PT INR APTT Fibrinogen D-Dimer ABG pH POC ABG pCO2 POC ABG pO2 ABG Hemoglobin ABG Oxyhemoglobin ABG Sodium ABG Potassium ABG Chloride ABG Glucose Sodium Potassium Chloride Carbon Dioxide BUN Creatinine Glucose POC Glucose 127 H 121 H Lactic Acid Calcium Magnesium Iron Total Bilirubin Direct Bilirubin AST ALT Alkaline Phosphatase Ammonia CK-MB (CK-2) CK-MB (CK-2) Rel Index Total Protein Albumin Arterial Blood Glucose Arterial Blood Ionized Calcium Urine Creatinine Urine Total Protein Salicylates Acetaminophen Crossmatch 10/28/20 10/28/20 10/28/20 04:30 11:26 23:15 WBC RBC Hgb Hct MCV MCH MCHC RDW Plt Count [place] % (Auto) [place] # (Auto) Seg Neutrophils % Seg Neuts % (Manual) Lymphocytes % (Manual) Monocytes % (Manual) Basophils % (Manual) Nucleated RBC % Seg Neutrophils # Seg Neutrophils # Man Lymphocytes # (Manual) Monocytes # (Manual) Basophils # (Manual) PT INR APTT Fibrinogen D-Dimer ABG pH POC ABG pCO2 POC ABG pO2 ABG Hemoglobin ABG Oxyhemoglobin ABG Sodium ABG Potassium ABG Chloride ABG Glucose Sodium Potassium 3.5 L Chloride Carbon Dioxide BUN 33 H Creatinine 2.2 H Glucose POC Glucose 127 H 111 H Lactic Acid Calcium Magnesium Iron Total Bilirubin Direct Bilirubin AST ALT Alkaline Phosphatase Ammonia CK-MB (CK-2) CK-MB (CK-2) Rel Index Total Protein Albumin Arterial Blood Glucose Arterial Blood Ionized Calcium Urine Creatinine Urine Total Protein Salicylates Acetaminophen Crossmatch 10/29/20 10/29/20 10/29/20 05:32 08:19 09:21 WBC 12.0 H RBC 3.03 L Hgb 7.7 L Hct 23.8 L MCV 78 L MCH 25 L MCHC RDW 30.1 H Plt Count [place] % (Auto) [place] # (Auto) Seg Neutrophils % Seg Neuts % (Manual) Lymphocytes % (Manual) Monocytes % (Manual) Basophils % (Manual) Nucleated RBC % Seg Neutrophils # Seg Neutrophils # Man Lymphocytes # (Manual) Monocytes # (Manual) Basophils # (Manual) PT INR APTT Fibrinogen D-Dimer ABG pH POC ABG pCO2 POC ABG pO2 ABG Hemoglobin ABG Oxyhemoglobin ABG Sodium ABG Potassium ABG Chloride ABG Glucose Sodium Potassium Chloride 97.7 L Carbon Dioxide 36 H BUN 36 H Creatinine 2.3 H Glucose 116 H POC Glucose 109 H Lactic Acid Calcium 8.2 L Magnesium Iron Total Bilirubin Direct Bilirubin AST ALT Alkaline Phosphatase Ammonia CK-MB (CK-2) CK-MB (CK-2) Rel Index Total Protein Albumin Arterial Blood Glucose Arterial Blood Ionized Calcium Urine Creatinine Urine Total Protein Salicylates Acetaminophen Crossmatch 10/30/20 10/30/20 04:46 04:46 WBC 11.4 H RBC 3.01 L Hgb 7.8 L Hct 24.0 L MCV 80 L MCH 26 L MCHC RDW 29.3 H Plt Count [place] % (Auto) [place] # (Auto) Seg Neutrophils % Seg Neuts % (Manual) Lymphocytes % (Manual) Monocytes % (Manual) Basophils % (Manual) Nucleated RBC % Seg Neutrophils # Seg Neutrophils # Man Lymphocytes # (Manual) Monocytes # (Manual) Basophils # (Manual) PT INR APTT Fibrinogen D-Dimer ABG pH POC ABG pCO2 POC ABG pO2 ABG Hemoglobin ABG Oxyhemoglobin ABG Sodium ABG Potassium ABG Chloride ABG Glucose Sodium 136 L Potassium Chloride 96.7 L Carbon Dioxide 33 H BUN 48 H Creatinine 3.2 H Glucose POC Glucose Lactic Acid Calcium 7.9 L Magnesium Iron Total Bilirubin Direct Bilirubin AST ALT Alkaline Phosphatase Ammonia CK-MB (CK-2) CK-MB (CK-2) Rel Index Total Protein Albumin Arterial Blood Glucose Arterial Blood Ionized Calcium Urine Creatinine Urine Total Protein Salicylates Acetaminophen Crossmatch Chest x-ray: image reviewed Allied health notes reviewed: RT
[2020-10-30] MEDS: AMIODARONE 200 MG TAB PO SCH ×2 (10:46→22:30)
--- NOTE | 2020-10-30 11:56 | Progress Note ---
Assessment and Plan Patient is a 75 y/o male Atherosclerotic cerebrovascular disease AMS * Management per primary teams Acute hypoxic respiratory failure * Pulmonology following * Currently intubated Paroxysmal Afib w/RVR HFrEF * Given pt's soft BP will hold off on ELADIA/ARB, BB, or non-dihydropyridine CCB * Currently Afib but rate controlled. S/p amio gtt * Would not recommend anticoagulation currently given anemia * Echo 10/04/2020-EF 25 to 30%, right ventricle severely dilated and moderately hypokinetic, left atrium is mildly dilated, right atrium severely dilated, moderate to severe tricuspid regurgitation, moderate mitral regurgitation tricuspid annulus dilated. Acute Renal Failure * Receiving HD * Nephrology following Patient currently afib but 90s-100s with episodes in into 110s. Will start amio 200mg PO BID Patient seen in conjunction with Dr. Deleon who agrees with this plan of care. Will continue to follow - Patient Problems (1) Afib Current Visit: Yes Status: Acute (2) Acute encephalopathy Current Visit: Yes Status: Acute (3) Atherosclerotic cerebrovascular disease Current Visit: Yes Status: Acute (4) Hypoglycemia Current Visit: Yes Status: Acute (5) Left-sided weakness Current Visit: Yes Status: Acute (6) Microcytic anemia Current Visit: Yes Status: Acute (7) Pulmonary infiltrate in right lung on CXR Current Visit: Yes Status: Acute (8) HFrEF (heart failure with reduced ejection fraction) Current Visit: Yes Status: Acute (9) Dilated cardiomyopathy Current Visit: Yes Status: Acute Subjective Date of service: 10/30/20 Principal diagnosis: Ac hypoxemic resp failure; Pneumonia; BETSY; Ac. encephalopathy Interval history: Patient intubated. Patient afib 90s-100s on monitor Objective Vital Signs Temp Pulse Pulse Resp BP Pulse Ox Pulse Ox 10/30/20 10:31 98 H 30 H 100/57 97 10/30/20 10:00 102 H 23 96/55 100 10/30/20 09:31 106 H 12 116/84 88 10/30/20 09:00 96.6 F L 93 H 16 79/46 100 95 10/30/20 08:45 107 H 97/50 10/30/20 08:30 105 H 17 92/52 92 10/30/20 08:15 108 H 99/57 10/30/20 08:13 89 88/60 96 10/30/20 08:00 97.4 F L 101 H 15 88/60 100 10/30/20 07:45 96 H 95/60 10/30/20 07:30 101 H 12 85/53 99 10/30/20 07:15 60 84/54 10/30/20 07:00 95 H 22 96/52 99 10/30/20 06:45 99 H 97/48 10/30/20 06:30 105 H 15 101/56 100 10/30/20 06:15 107 H 90/52 10/30/20 06:00 99 H 20 88/50 98 10/30/20 05:50 97.2 F L 104 H 22 95/49 99 10/30/20 05:30 97 H 22 95/49 98 10/30/20 05:11 110 H 87/53 98 10/30/20 05:01 107 H 19 96/51 98 10/30/20 04:30 110 H 21 87/53 99 10/30/20 04:00 104 H 21 L 23 89/47 98 10/30/20 03:30 110 H 23 91/52 94 10/30/20 03:23 98.6 F 10/30/20 03:00 97 H 26 H 93/58 91 10/30/20 02:31 102 H 22 93/49 95 10/30/20 02:00 114 H 24 112/70 93 10/30/20 01:31 110 H 23 113/76 87 10/30/20 01:01 147 H 17 132/84 69 L 10/30/20 00:31 107 H 20 123/77 95 10/30/20 00:01 112 H 23 141/75 92 10/30/20 00:00 98.6 F 108 H 108 H 22 96 10/29/20 23:30 105 H 24 129/77 92 10/29/20 23:12 110 H 131/84 94 10/29/20 23:00 105 H 42 H 127/88 90 10/29/20 22:31 106 H 22 131/84 93 10/29/20 22:01 107 H 21 116/66 100 10/29/20 21:30 106 H 17 118/65 97 10/29/20 21:00 100 H 22 117/63 97 10/29/20 20:30 107 H 21 115/59 98 10/29/20 20:00 99.0 F 96 H 116 H 20 115/59 98 10/29/20 19:42 103 H 101/59 98 10/29/20 19:30 94 H 20 117/67 98 10/29/20 19:00 131 H 33 H 110/60 100 10/29/20 18:30 100 H 21 110/60 99 10/29/20 18:29 109 H 20 102/55 99 10/29/20 18:00 102 H 23 102/55 96 10/29/20 17:31 112 H 20 99/48 97 10/29/20 17:20 99.1 F 10/29/20 17:00 114 H 18 112/52 10/29/20 16:30 100 H 17 102/52 98 10/29/20 16:00 98 H 98 H 20 89/50 96 10/29/20 15:41 95 H 107/71 96 10/29/20 15:30 114 H 23 103/60 94 10/29/20 15:00 100 H 23 107/71 99 10/29/20 14:30 125 H 19 116/64 97 10/29/20 14:00 110 H 25 H 128/75 96 10/29/20 13:30 109 H 27 H 118/74 96 10/29/20 13:00 92 H 20 123/69 97 10/29/20 12:30 98 H 22 125/77 97 10/29/20 12:00 109 H 109 H 23 123/78 93 - Physical Examination General: Other (intubated) HEENT: Positive: Mucus Membranes Dry Neck: Positive: trachea midline Cardiac: Positive: irregularly irregular Lungs: Positive: Ventilated Respirations Neuro: Positive: Other (intubated) Abdomen: Positive: Soft Skin: Negative: Rash Extremities: Present: upper extr. pulses, lower extr. pulses, edema - Labs and Meds CBC 10/30/20 Range/Units 04:46 WBC 11.4 H (4.5-11.0) K/mm3 RBC 3.01 L (3.65-5.03) M/mm3 Hgb 7.8 L (11.8-15.2) gm/dl Hct 24.0 L (35.5-45.6) % Plt Count 317 (140-440) K/mm3 Comprehensive Metabolic Panel 09/20/21 Range/Units 04:46 Sodium 136 L (137-145) mmol/L Potassium 4.0 (3.6-5.0) mmol/L Chloride 96.7 L (98-107) mmol/L Carbon Dioxide 33 H (22-30) mmol/L BUN 48 H (9-20) mg/dL Creatinine 3.2 H (0.8-1.3) mg/dL Glucose 94 (75-100) mg/dL Calcium 7.9 L (8.4-10.2) mg/dL - Imaging and Cardiology EKG: report reviewed, image reviewed Echo: report reviewed - Telemetry EKG Rhythm: Atrial Fibrillation - EKG Supraventricular dysrhythmia: atrial fibrillation - Allied health notes Allied health notes reviewed: RT
[2020-10-30] MEDS: HEPARIN 5,000 UNIT/1 ML VIAL SUB-Q SCH ×2 (14:59→22:24)
--- NOTE | 2020-10-30 15:32 | Consultation ---
History of Present Illness Consult date: 10/30/20 Chief complaint: dysphagia and respiratory failure - History of present illness History of present illness: 75 year old male presented to ED several weeks ago unresponsive and was admitted s/p resuscitation from cardiac arrest. He has been unable to wean from the ventilator and requiring tube feeds. Surgery consulted for tracheostomy and PEG placement to facilitate director long term care care. Past History Past Medical History: GERD Past Surgical History: No surgical history Social history: no significant social history, alcohol abuse (Per patient his) Family history: no significant family history (Unable to get information from the patient secondary to altered mental status) Medications and Allergies Allergies Allergy/AdvReac Type Severity Reaction Status Date / Time No Known Allergies Allergy Unverified 10/03/20 12:27 Home Medications Medication Instructions Recorded Confirmed Last Taken Type Unobtainable 10/10/20 10/10/20 Unknown History Active Meds: Active Medications Acetaminophen (Acetaminophen 325 Mg Tab) 650 mg PO Q4H PRN PRN Reason: Pain MILD(1-3)/Fever >100.5/ROMERO Last Admin: 10/06/20 15:28 Dose: 650 mg Documented by: Al Hydrox/Mg Hydrox/Simethicone (Alum-Mag Hydroxide-Simethicone 149-906-77ps/5ml Oral Liqd 30 Ml) 30 ml PO Q4H PRN PRN Reason: Indigestion Amiodarone HCl (Amiodarone 200 Mg Tab) 200 mg PO BID [facility] Last Admin: 10/30/20 10:46 Dose: 200 mg Documented by: Lipase/Protease/Amylase (Lipase 10,500/Protease 25,000/Amylase 43,750 (Units) Dr Reis) 1 each FEEDTUBE PRN PRN PRN Reason: For Clogged Feeding Tube Dextrose (Dextrose 50% In Water (25gm) 50 Ml Syringe) 50 ml IV Q30MIN PRN; Protocol PRN Reason: Hypoglycemia Last Admin: 10/21/20 17:39 Dose: 50 ml Documented by: Fentanyl (Fentanyl 100 Mcg/2 Ml Inj) 50 mcg IV Q4HR PRN PRN Reason: Pain , Severe (7-10) Last Admin: 10/28/20 08:56 Dose: 50 mcg Documented by: Ferrous Sulfate (Ferrous Sulfate 308 Mg (62mg Elemental Iron) / 7 Ml Elixir) 308 mg FEEDTUBE DAILY [facility] Last Admin: 10/30/20 10:34 Dose: 308 mg Documented by: Folic Acid (Folic Acid 1 Mg Tab) 1 mg PO QDAY [facility] Last Admin: 10/30/20 10:35 Dose: 1 mg Documented by: Glycopyrrolate (Glycopyrrolate 2 Mg Tab) 2 mg PO TID [facility] Last Admin: 10/30/20 14:51 Dose: 2 mg Documented by: Heparin Sodium (Porcine) (Heparin 5,000 Unit/1 Ml Vial) 5,000 unit SUB-Q Q12HR [facility] Last Admin: 10/30/20 14:59 Dose: 5,000 unit Documented by: NORepinephrine/NS 8 MG-250 ML (Norepinephrine/Ns 8 Mg-250 Ml (Double Conc)) 8 mg in 250 mls @ 3.75 mls/hr IV TITRATE [facility]; Protocol Last Titration: 10/21/20 16:56 Dose: 0 mcg/min, 0 mls/hr Documented by: Levetiracetam (Levetiracetam 500 Mg/5 Ml Oral Liqd) 250 mg PO BID [facility] Magnesium Hydroxide (Magnesium Hydroxide (Mom) Oral Liqd Udc) 30 ml PO Q4H PRN PRN Reason: Constipation Midodrine (Midodrine 5 Mg Tab) 10 mg PO Q8H [facility] Last Admin: 10/30/20 10:46 Dose: 10 mg Documented by: Pantoprazole Sodium (Pantoprazole 40 Mg Inj) 40 mg IV QDAY [facility] Last Admin: 10/30/20 10:35 Dose: 40 mg Documented by: Promethazine HCl (Promethazine 25 Mg Rect Supp) 25 mg PA Q6H PRN PRN Reason: N/V IF NPO AND NO IV ACCESS Scopolamine (Scopolamine Transdermal Patch 72 Hr) 1 each TD Q3D [facility] Senna (Sennosides 8.6 Mg Tab) 8.6 mg PO Q12HR PRN PRN Reason: Constipation Simple Syrup (Simple Syrup 15 Ml) 15 ml FEEDTUBE PRN PRN PRN Reason: Hypoglycemia Last Admin: 10/19/20 02:08 Dose: 15 ml Documented by: Simple Syrup (Simple Syrup 15 Ml) 30 ml FEEDTUBE PRN PRN PRN Reason: Hypoglycemia Last Admin: 10/16/20 22:02 Dose: 30 ml Documented by: Sodium Bicarbonate (Sodium Bicarbonate 325 Mg Tab) 325 mg FEEDTUBE PRN PRN PRN Reason: For Clogged Feeding Tube Review of Systems ROS unobtainable: due to endotracheal tube Exam Vital Signs Temp Pulse Resp BP Pulse Ox 90.1 F L 98 H 16 128/75 99 10/03/20 00:39 10/03/20 00:39 10/03/20 00:39 10/03/20 00:39 10/03/20 00:39 - General physical appearance Positive: no distress, no pain, cathetic, chronically ill - ENT Positive: poor correction, other (upper incisor penetrating through upper lip) - Neck Positive: trachea midline - Respiratory Positive: normal expansion, normal respiratory effort - Cardiovascular Heart Sounds: Present: S1 & S2 - Extremities Extremities: abnormal (swollen distal extremetites, overgrown toe nails) - Abdomen Abdomen: Present: soft. Absent: tender, distended, guarding, rigid, wound, surgical scars Results - Labs 10/30/20 04:46 10/30/20 04:46 Abnormal lab results 10/30/20 10/30/20 10/30/20 Range/Units 04:46 04:46 11:29 WBC 11.4 H (4.5-11.0) K/mm3 RBC 3.01 L (3.65-5.03) M/mm3 Hgb 7.8 L (11.8-15.2) gm/dl Hct 24.0 L (35.5-45.6) % MCV 80 L (84-94) fl MCH 26 L (28-32) pg RDW 29.3 H (13.2-15.2) % Sodium 136 L (137-145) mmol/L Chloride 96.7 L (98-107) mmol/L Carbon Dioxide 33 H (22-30) mmol/L BUN 48 H (9-20) mg/dL Creatinine 3.2 H (0.8-1.3) mg/dL POC Glucose 126 H (70-105) mg/dL Calcium 7.9 L (8.4-10.2) mg/dL Diabetes panel 10/30/20 Range/Units 04:46 Sodium 136 L (137-145) mmol/L Potassium 4.0 (3.6-5.0) mmol/L Chloride 96.7 L (98-107) mmol/L Carbon Dioxide 33 H (22-30) mmol/L BUN 48 H (9-20) mg/dL Creatinine 3.2 H (0.8-1.3) mg/dL Glucose 94 (75-100) mg/dL Calcium 7.9 L (8.4-10.2) mg/dL Calcium panel 10/30/20 Range/Units 04:46 Calcium 7.9 L (8.4-10.2) mg/dL Pituitary panel 10/30/20 Range/Units 04:46 Sodium 136 L (137-145) mmol/L Potassium 4.0 (3.6-5.0) mmol/L Chloride 96.7 L (98-107) mmol/L Carbon Dioxide 33 H (22-30) mmol/L BUN 48 H (9-20) mg/dL Creatinine 3.2 H (0.8-1.3) mg/dL Glucose 94 (75-100) mg/dL Calcium 7.9 L (8.4-10.2) mg/dL Adrenal panel 10/30/20 Range/Units 04:46 Sodium 136 L (137-145) mmol/L Potassium 4.0 (3.6-5.0) mmol/L Chloride 96.7 L (98-107) mmol/L Carbon Dioxide 33 H (22-30) mmol/L BUN 48 H (9-20) mg/dL Creatinine 3.2 H (0.8-1.3) mg/dL Glucose 94 (75-100) mg/dL Calcium 7.9 L (8.4-10.2) mg/dL Assessment and Plan 75 year old male respiratory failure and dysphasia. Afebrile and stable. Good candidate for trach and PEG. Spoke with daughter to obtain informed consent who expressed understanding of the risks and benefits. May possibly go to OR tomorrow. NPO after midnight.
--- NOTE | 2020-10-30 16:45 | Progress Note ---
Assessment and Plan Assessment and plan: This is 74-year-old male with GERD GERD, heart failure with reduced EF admitted with anemia, acute hypoxic respiratory failure, GI bleed, severe protein calorie malnutrition, acute kidney injury, acute blood loss anemia, leukocytosis, pna, seizure Neuro: Acute metabolic encephalopathy, significant narrowing in bilateral posterior cerebral arteries, left-sided hemiparesis with aphasia, ath erosclerotic cerebrovascular disease -Avoid delirium -Patient is not sedated -Intact cough/gag, intermittently follows commands, responsive to tactile stimuli -CTA head/CTA neck completed-> see results -MRI brain completed-> see results, findings suggestive of ventriculomegaly -Thiamine and folate daily -s/p Keppra -Seizure precautions -Neurology consulted, appreciate recommendations -EEG completed which cannot rule out acute seizure with postictal state Cardio: afib, HFrEF (10-15%) -s/p Levophed, vasopressin, epinephrine, dobutamine, vasopressin -Currently on midodrine -MAP goal greater than 65 -Blood pressure monitoring per protocol -PICC 10/16 -Cardiology consulted, appreciate recommendations -no anticoagulation per cards for now given thrombocytopenia and anemia -Amiodarone p.o. restarted today -Echo completed-> see results, EF 25-30% Respiratory: Acute hypoxic respiratory failure -Patient was intubated on 10/15 -VAP bundle -Current vent settings: Assist control tidal volume 500, rate 30, PEEP 8, 40% FiO2 -Intubated with 7.5 OETT 24 at the lips -[facility] following -VAP bundle -Daily CXR and ABG -SBT/SAT when appropriate GI: s/p GIB, oropharyngeal dysphagia, severe protein-calorie malnutrition -Nutrition consult for tube feedings -GI consulted, appreciate recommendations -GI will hold off EGD/PEG given acute clinical worsening with respiratory failure -Past 24 hours net +1390 -PPI with Protonix -BR prn sennakot : Hyponatremia,metabolic acidosis, acute kidney injury secondary to acute tubular necrosis -Nephrology consulted, appreciate recommendations -Strict intake and output -munoz for I&O -s/p Hypertonic saline per nephrology -HD per nephrology -s/p Lasix drip per [facility] -Trend BMP Heme: Iron disease/acute blood loss anemia, leukocytosis, superfical venous thrombus -Likely secondary to malnutrition -S/p 5 units of PRBC and 2 unit plt -Iron/multivitamin supplements -GI consulted, appreciate recommendations -Hold off EGD/colonoscopy given acute clinical worsening with respiratory failure per GI -Trend CBC, INR and bleeding -no bleeding on exam -DIC panel negative -Bilateral upper and lower extremity Doppler ultrasound shows occlusive superficial venous thrombus of left basilic and cephalic vein. -Monitor Endo: s/p Persistent hypoglycemia -tube feedings as tolerated -Accu-Cheks every 4 -Hypoglycemia protocol -Avoid hypoglycemia -Surgery consult for PEG tube placement ID: Pulmonary infiltrate in right lung, Hypothermia -Infectious disease consulted, appreciate recommendations -COVID-19 PCR negative -Antibiotic therapy per ID -Azithromycin 10/03 through 10/09, ceftriaxone 10/03 through 10/09, cefepime 10/17 through 10/22, vancomycin 10/08 through 10/09 -Monitor CBC and temperature curve -Intermittent Joseph hugger use -TSH 2.1 The high probability of a clinically significant, sudden or life threatening deterioration of the [multi] system(s) required my full and direct attention, intervention and personal management. The aggregate critical care time was [60] minutes. This time is in addition to time spent performing reported procedures but includes the following: [x] Data Review and interpretation [x] Patient assessment and monitoring of vital signs [x] Documentation [x] Medication orders and management Disposition Plan: ICU Total Time Spent with Patient (Minutes): 60 History Interval history: This is 74-year-old male with GERD who presented with AMS and left-sided weakness on 10/03 after being found incontinent in feces and urine on bed. Patient was only able to answer simple questions to the EMS. Upon presentation to the ED patient was confused. CT head showed cerebral with arthrosclerotic calcification. Work-up in the emergency department revealed anemia and hypoglycemia. Patient admitted to the hospital service for further work-up. 10/03/20: CT of the head no acute finding but showed a cerebral atrophy with suspicious atrophy and atherosclerotic calcification within the distal right middle cerebral artery. Patient also noted with hemoglobin of 5.8, received 1 unit of packed RBC and ordered for tomorrow Neuro is consulted, Covid test is negative We will check stool for occult blood MRI brain ordered we will follow Will hold any oral medicine until cleared by speech or passes the bedside swallow eval Patient noted to have severe hypoglycemic, will place on D10W Follow H&H and BMP Continue current management plan as dictated in the HPI 10/04/20: no acute findings in MRI, pending EEG, s/p 3 units PRBC transfusion. follow speech JACQUELINE rivera for now, h/h stable, GI consulted - follow recommendation. 10/05/20 Patient with acute encephalopathy, severe anemia s/p PRBC transfusion. GI following. Hgb 9.8 today. Will repeat in am. Left sided weakness. MRI negative for stroke. Neurology following. 10/06/20 Patient with encephalopathy, severe anemia s/p PRBC transfusion. Hgb 9.4 today. Patient has left sided weakness but MRI neg. Patient needs PEG tube. Will talk with family. Hypokalemia. Replace Q6h X 2. Check Mg 10/07/20 Patient with encephalopathy, severe anemia s/p PRBC transfusion. Hgb 9.6 today. Patient has left sided weakness but MRI neg. Patient needs PEG tube. Will talk with family. Hyponatremia of 128. This may be due to D10% he was on prior to NG tube. Stopped 10% Dextrose. Consulted Nephrology 10/08/20 Patient with encephalopathy, severe anemia s/p PRBC transfusion. Hgb 9.6 today. Patient has left sided weakness but MRI neg. Patient needs PEG tube. Hyponatremia worse today 126. This is due to D10% resumed last night because of hypoglycemia. I discussed with Dr. Herrera. Stop 10%Dextrose. Start D5NS Spoke to Cindy hanson, yesterday and gave update. She wants PEG tube placed. Discussed plan with PAKO Chambers. He wants to do upper and lower endoscopy to evaluate anemia, before PEG tube 10/09/20 Patient with encephalopathy, severe anemia s/p PRBC transfusion. Hgb 10.3 today. Patient has left sided weakness but MRI neg. Patient needs PEG tube. Hyponatremia still present Na 126 today. This is due to D10% resumed again last night because of hypoglycemia. Nephrology had recommended D5NS but 10% Dextrose restarted overnight because of hypoglycemia. Nurses unable to place NG tube. I discussed with Dr. Otero today and he will do. Spoke to Cindy hanson, yesterday and gave update. She wants PEG tube placed. Discussed plan with Dr.Shanna, GI. He wants to do upper and lower endoscopy to evaluate anemia, before PEG tube Today Na still 126. I discussed with Dr. Herrera and he recommended D10NS. I called Pharmacy. They will mix special D10NS drip. Patient had bilateral pneumonia on CXR therefore started iv Antibiotics, blood cultures. yesterday. Consulted ID 10/10/2020. Patient remains encephalopathic with hemoglobin stabilizing yesterday. Recheck H&H. Patient with left-sided weakness but MRI negative. Fluoroscopic NG tube placement completed yesterday. Await GI to perform EGD and colonoscopy. Follow-up hyponatremia with BMP results. Dr. Aldrich Spoke to daughter, Cindy Singh, and gave update. Daughter wants PEG tube placed. Continue IV antibiotics for bilateral pneumonia. ID consulted. Follow-up procalcitonin levels. 10/11/2020. Patient's hemoglobin remained stable today at 9.5. However, patient noted to be hypotensive with systolic blood pressure of 83. Patient received NS 250 cc bolus with improvement of blood pressure systolically to 123. GI plans to perform EGD/colonoscopy tomorrow. Hyponatremia improving. Start IV fluid of normal saline at 75 cc an hour x1 L 10/12/2020. Patient noted to have some gurgling of the upper airway. NG tube was placed to low intermittent suction. Check chest x-ray and KUB to rule out aspiration and/or ileus. Continue to monitor. H/H remained stable. ID stopped antibiotics due to normal procalcitonin. Speech evaluation 10/13/2020. Patient remains encephalopathic. I discussed overall mental status w ith the daughter yesterday and updated her with plan of care. Neurology reports: CT angio of the head that is a significant narrowing seen in both posterior cerebral arteries - and no signs of large vessel -CT of the head no acute finding but showed a cerebral atrophy with suspicious atrophy and atherosclerotic calcification within the distal right middle cerebral artery. -MRI brain without any acute findings - EEG completed yesterday remarkable for diffuse slowing 3-4 Hz and with occassional triphasic waves , no epileptiform discharges is noted -- full report to follow -Repeat MRI brain showed no acute finding Keppra was decreased to 250 mg IV twice daily and thiamine was added x3 days. No LP for now due to lack of any inflammatory findings. Repeat EEG per neurology. Sodium level has improved. Serum creatinine has increased to 1.6 today. Avoid nephrotoxic agents and monitor I/O's daily. Salt tabs 2 g 3 times daily per nephrology 10/14/2020. Patient remains encephalopathic. MRI, EEG and CT results noted above. Continue supportive care. Defer to neurology recommendations regarding mental status/encephalopathy. Continue salt tabs per nephrology. Follow-up BMP. Avoid nephrotoxic agents and monitor I/O's daily. Continue NG tube feedings. PEG placement per GI. 10/15/2020. Patient noted to have significant respiratory distress. Patient with tachypnea, some accessory muscle use, labored breathing and coarse breath sounds and sonorous respirations. Dr. Maldonado from the emergency department intubated the patient. Dr. Floyd was consulted and notified. The patient will be transferred to the ICU and continued on mechanical ventilation. Follow-up chest x-ray. 10/16: Patient is having persistent hypoglycemia despite being on D10 23% saline at 100ml/hr. given multiple amps of D50 with minimal response. The patient IV fluids changed to D5W at 125. Repeat BMP in the p.m. 10/17: hypoglycemia better, remains on levophed, epi, neoshynephrine, dobumatine and bicarb gtt this morning. RN is slowly titrating vasopressor as tolerated. Updated daughter Mignon today and relayed new findings including posturing of BUE to pain. 10/18: Patient is being slowly weaned off of vasopressor support by RN. Patient remains on phenyl epinephrine, vasopressin, norepinephrine and amiodarone. Nephrology will resume Lasix. Patient is hyponatremic today however he is on a bicarb drip which we will add today. This evening patient noted to be anemic and have low platelets. Transfuse platelets and PRBC. NGT to suction 10/19: remains on vasopressor support, renal will reassess HD tomorrow. Patient with significant edema. Dr. Gorman spoke to family who wishes for code status to not change. 10/20: Amiodarone stopped by cardiology, patient placed on hypertonic saline by nephrology. Patient is tolerating trickle feedings at this time. Patient strep ordered for diuresis. Patient is being weaned off vasopressors as tolerated. 10/21: Patient remains on vasopressors however vasopressors are being weaned as tolerated, dobutamine drip continues, RN and [employer] MERCHANDISER updated family at bedside today via FaceTime. Patient was started on Lasix drip today. Patient had hypokalemia and hypomagnesemia which were repleted. 10/22: Patient still has hyponatremia, hypokalemia, hypochloremia with slightly improving renal function. Patient remains on Lasix. Still having thrombocytopenia and was transfused with 1 unit platelet today. RN is weaning vasopressors as tolerated. Patient is on minimal vent settings. 10-23: Remains mechanically intubated, on Lasix and dobutamine drip, cardiology following, BETSY with nephrology following. 10/24: Worsening BETSY; likely hemodialysis 10/25: T-max 101.3, tachycardia, atrial fibrillation 10/26: Improving thrombocytopenia 10/27: 1 unit PRBC 10/28: No acute events overnight 10/29: No acute distress, HD 10/30: CPAP trial today, surgery consulted for trach/PEG. Cardiology will restart amiodarone. Hospitalist Physical - Constitutional Vitals: Temp Pulse Resp BP Pulse Ox 97.5 F L 132 H 20 96/62 100 10/30/20 12:00 10/30/20 15:31 10/30/20 15:31 10/30/20 15:31 10/30/20 15:31 General appearance: Present: no acute distress, other (Intubated, responsive to tactile stimuli, intermittently follows commands) - EENT Eyes: Present: PERRL ENT: poor dentition, other (Wound to upper lip) - Neck Neck: Absent: masses or JVD, cervical LAD - Respiratory Respiratory effort: normal Respiratory: bilateral: diminished - Cardiovascular Rhythm: irregularly irregular Heart Sounds: Present: S1 & S2. Absent: systolic murmur, diastolic murmur - Extremities Extremities: no ischemia, pulses intact, pulses symmetrical, normal temperature, normal color Extremity abnormal: edema Peripheral Pulses: within normal limits - Abdominal General gastrointestinal: soft, non-tender, non-distended, normal bowel sounds - Integumentary Integumentary: Present: warm, dry - Psychiatric Psychiatric: other - Neurologic Neurologic: other (Responsive to tactile stimuli, intermittently follows commands) - Allied Health Allied health notes reviewed: nursing, RT, social work HEART Score - HEART Score Troponin: Troponin T < 0.010 ng/mL (0.00-0.029) 10/02/20 23:17 Results - Labs CBC & Chem 7: 10/30/20 04:46 10/30/20 04:46 Labs: Laboratory Last Values WBC 11.4 K/mm3 (4.5-11.0) H 10/30/20 04:46 RBC 3.01 M/mm3 (3.65-5.03) L 10/30/20 04:46 Hgb 7.8 gm/dl (11.8-15.2) L 10/30/20 04:46 Hct 24.0 % (35.5-45.6) L 10/30/20 04:46 MCV 80 fl (84-94) L 10/30/20 04:46 MCH 26 pg (28-32) L 10/30/20 04:46 MCHC 32 % (32-34) 10/30/20 04:46 RDW 29.3 % (13.2-15.2) H 10/30/20 04:46 Plt Count 317 K/mm3 (140-440) 10/30/20 04:46 Lymph % (Auto) Environmental Director 10/10/20 10:58 [place] % (Auto) 8.3 % (0.0-7.3) H 10/15/20 05:50 Eos % (Auto) 0.3 % (0.0-4.3) 10/15/20 05:50 Baso % (Auto) Environmental Director 10/10/20 10:58 Lymph # (Auto) Environmental Director 10/10/20 10:58 [place] # (Auto) 1.3 K/mm3 (0.0-0.8) H 10/15/20 05:50 Eos # (Auto) 0.0 K/mm3 (0.0-0.4) 10/15/20 05:50 Baso # (Auto) 0.1 K/mm3 (0.0-0.1) 10/15/20 05:50 Add Manual Diff Complete 10/23/20 05:35 Total Counted 100 10/23/20 05:35 Seg Neutrophils % Environmental Director 10/21/20 Unknown Seg Neuts % (Manual) 83.0 % (40.0-70.0) H 10/23/20 05:35 Band Neutrophils % 5.0 % 10/23/20 05:35 Lymphocytes % (Manual) 9.0 % (13.4-35.0) L 10/23/20 05:35 Reactive Lymphs % (Man) 1.0 % 10/23/20 05:35 Monocytes % (Manual) 1.0 % (0.0-7.3) 10/23/20 05:35 Eosinophils % (Manual) 1.0 % (0.0-4.3) 10/23/20 05:35 Basophils % (Manual) 2.0 % (0.0-1.8) H 10/10/20 10:58 Metamyelocytes % 11.0 % 10/17/20 04:49 Myelocytes % 7.0 % 10/17/20 04:49 Nucleated RBC % 3.0 % (0.0-0.9) H 10/23/20 05:35 Seg Neutrophils # 13.2 K/mm3 (1.8-7.7) H 10/15/20 05:50 Seg Neutrophils # Man 6.1 K/mm3 (1.8-7.7) 10/23/20 05:35 Band Neutrophils # 0.4 K/mm3 10/23/20 05:35 Lymphocytes # (Manual) 0.7 K/mm3 (1.2-5.4) L 10/23/20 05:35 Abs React Lymphs (Man) 0.1 K/mm3 10/23/20 05:35 Monocytes # (Manual) 0.1 K/mm3 (0.0-0.8) 10/23/20 05:35 Eosinophils # (Manual) 0.1 K/mm3 (0.0-0.4) 10/23/20 05:35 Basophils # (Manual) 0.0 K/mm3 (0.0-0.1) 10/23/20 05:35 Metamyelocytes # 0.0 K/mm3 10/23/20 05:35 Myelocytes # 0.0 K/mm3 10/23/20 05:35 Promyelocytes # 0.0 K/mm3 10/23/20 05:35 Blast Cells # 0.0 K/mm3 10/23/20 05:35 WBC Morphology Not Reportable 10/23/20 05:35 Hypersegmented Neuts Not Reportable 10/23/20 05:35 Hyposegmented Neuts Not Reportable 10/23/20 05:35 Hypogranular Neuts Not Reportable 10/23/20 05:35 Smudge Cells Not Reportable 10/23/20 05:35 Toxic Granulation 1+ 10/23/20 05:35 Toxic Vacuolation 1+ 10/23/20 05:35 Dohle Bodies 1+ 10/23/20 05:35 Pelger-Huet Anomaly Not Reportable 10/23/20 05:35 Andrés Rods Not Reportable 10/23/20 05:35 Platelet Estimate Consistent w auto 10/23/20 05:35 Clumped Platelets Not Reportable 10/23/20 05:35 Plt Clumps, EDTA Not Reportable 10/23/20 05:35 Large Platelets Not Reportable 10/23/20 05:35 Giant Platelets Not Reportable 10/23/20 05:35 Platelet Satelliting Not Reportable 10/23/20 05:35 Plt Morphology Comment Not Reportable 10/23/20 05:35 RBC Morphology Not Reportable 10/23/20 05:35 Dimorphic RBCs Not Reportable 10/23/20 05:35 Polychromasia 1+ 10/23/20 05:35 Hypochromasia 2+ 10/23/20 05:35 Poikilocytosis 2+ 10/23/20 05:35 Anisocytosis 3+ 10/23/20 05:35 Microcytosis Not Reportable 10/23/20 05:35 Macrocytosis Not Reportable 10/23/20 05:35 Spherocytes 1+ 10/23/20 05:35 Pappenheimer Bodies Not Reportable 10/23/20 05:35 Sickle Cells Not Reportable 10/23/20 05:35 Target Cells 1+ 10/23/20 05:35 Tear Drop Cells Not Reportable 10/23/20 05:35 Ovalocytes Not Reportable 10/23/20 05:35 Helmet Cells Not Reportable 10/23/20 05:35 Freedman-Hyder Bodies Not Reportable 10/23/20 05:35 Anderson Rings Not Reportable 10/23/20 05:35 [place] Cells Not Reportable 10/23/20 05:35 Bite Cells Not Reportable 10/23/20 05:35 Crenated Cell Not Reportable 10/23/20 05:35 Elliptocytes Not Reportable 10/23/20 05:35 Acanthocytes (Spur) 1+ 10/23/20 05:35 Rouleaux Not Reportable 10/23/20 05:35 Hemoglobin C Crystals Not Reportable 10/23/20 05:35 Schistocytes Not Reportable 10/23/20 05:35 Malaria parasites Not Reportable 10/23/20 05:35 Dereck Bodies Not Reportable 10/23/20 05:35 Hem Pathologist Commnt No 10/23/20 05:35 PT 20.4 Sec. (12.2-14.9) H 10/24/20 05:27 INR 1.70 (0.87-1.13) H 10/24/20 05:27 APTT 61.4 Sec. (24.2-36.6) H* 10/21/20 Unknown Thrombin Time 17.8 Sec. (15.1-19.6) 10/02/20 23:17 Fibrinogen 482 mg/dl (211-480) H 10/21/20 Unknown D-Dimer 1992.93 ng/mlDDU (0-234) H 10/21/20 Unknown ABG pH 7.478 (7.320-7.450) H 10/25/20 15:15 POC ABG pCO2 39.3 mmHg (32.0-48.0) 10/25/20 15:15 POC ABG pO2 39.0 mmHg (83-108) L 10/25/20 15:15 POC ABG HCO3 28.5 10/25/20 15:15 ABG O2 Saturation 73.5 (0-100) 10/25/20 15:15 POC ABG Base Excess 4.6 10/25/20 15:15 ABG Hemoglobin 7.7 (12.0-17.5) L 10/25/20 15:15 ABG Oxyhemoglobin 72.9 (94-98) L 10/25/20 15:15 ABG Methemoglobin 0.3 (0.0-1.5) 10/25/20 15:15 ABG Sodium 133.3 mmol/L (136.0-145.0) L 10/25/20 15:15 ABG Potassium 3.4 mmol/L (3.40-4.50) 10/25/20 15:15 ABG Chloride 102.0 mmol/L (98-107) 10/25/20 15:15 ABG Glucose 189 mg/dL (65-95) H 10/25/20 15:15 Carboxyhemoglobin 0.5 (0.5-1.5) 10/25/20 15:15 FiO2 % 30.0 10/25/20 15:15 Sodium 136 mmol/L (137-145) L 10/30/20 04:46 Potassium 4.0 mmol/L (3.6-5.0) 10/30/20 04:46 Chloride 96.7 mmol/L (98-107) L 10/30/20 04:46 Carbon Dioxide 33 mmol/L (22-30) H 10/30/20 04:46 Anion Gap 10 mmol/L 10/30/20 04:46 BUN 48 mg/dL (9-20) H 10/30/20 04:46 Creatinine 3.2 mg/dL (0.8-1.3) H 10/30/20 04:46 Estimated GFR 23 ml/min 10/30/20 04:46 BUN/Creatinine Ratio 15 % 10/30/20 04:46 Glucose 94 mg/dL (75-100) 10/30/20 04:46 POC Glucose 126 mg/dL (70-105) H 10/30/20 11:29 Hemoglobin A1c 5.2 % (4-6) 10/03/20 05:57 Osmolality 267 Mosm/kg 10/07/20 13:54 Lactic Acid 1.50 mmol/L (0.7-2.0) 10/03/20 04:43 Calcium 7.9 mg/dL (8.4-10.2) L 10/30/20 04:46 Phosphorus 2.80 mg/dL (2.5-4.5) 10/23/20 05:35 Magnesium 2.10 mg/dL (1.7-2.3) 10/23/20 05:35 Iron 42 ug/dL (49-181) L 10/03/20 05:57 TIBC 305 mcg/dL (250-450) 10/03/20 05:57 Total Bilirubin 0.80 mg/dL (0.1-1.2) 10/24/20 05:27 Direct Bilirubin 0.9 mg/dL (0-0.2) H 10/19/20 04:51 Indirect Bilirubin 0.6 mg/dL 10/19/20 04:51 AST 54 units/L (5-40) H 10/24/20 05:27 ALT 54 units/L (7-56) 10/24/20 05:27 Alkaline Phosphatase 316 units/L (35-129) H 10/24/20 05:27 Ammonia 36.0 umol/L (25-60) 10/24/20 05:27 Total Creatine Kinase 88 units/L (55-170) 10/02/20 23:17 CK-MB (CK-2) 7.5 ng/mL (0.0-4.0) H 10/02/20 23:17 CK-MB (CK-2) Rel Index 8.5 (0-4) H 10/02/20 23:17 Troponin T < 0.010 ng/mL (0.00-0.029) 10/02/20 23:17 Total Protein 5.1 g/dL (6.3-8.2) L 10/24/20 05:27 Albumin 1.7 g/dL (3.9-5) L 10/24/20 05:27 Albumin/Globulin Ratio 0.5 % 10/24/20 05:27 Lipase 17 units/L (13-60) 10/16/20 22:58 Procalcitonin 0.10 ng/mL (<0.15) 10/10/20 10:58 TSH 2.130 mlU/mL (0.270-4.200) 10/07/20 13:54 Total Cortisol 17.4 mcg/dL () 10/09/20 02:46 Arterial Blood Glucose 189 mg/dL (65-95) H 10/25/20 15:15 Arterial Blood Ionized Calcium 4.4 mg/dL (4.6-5.3) L 10/25/20 15:15 Urine Eosinophils None seen (None Seen) 10/14/20 Unknown Urine Osmolality 223 Mosm/kg 10/07/20 Unknown Urine Creatinine 144.2 mg/dL (0.1-20.0) H 10/14/20 Unknown Protein/Creatinin Ratio 0.67 10/14/20 Unknown Urine Sodium 10 mmol/L 10/14/20 Unknown Urine Total Protein 97 mg/dL (5-11.8) H 10/14/20 Unknown Salicylates < 0.3 mg/dL (2.8-20.0) L 08/23/21 23:17 Acetaminophen 5.0 ug/mL (10.0-30.0) L 10/02/20 23:17 Plasma/Serum Alcohol < 0.01 % (0-0.07) 10/02/20 23:17 Coronavirus (PCR) Negative (Negative) 10/14/20 08:00 Hepatitis A IgM Ab Non-reactive (NonReactive) 10/24/20 15:28 Hep Bs Antigen Nonreactive (Negative) 10/24/20 15:28 Hep B Core IgM Ab Non-reactive (NonReactive) 10/24/20 15:28 Hepatitis C Antibody Non-reactive (NonReactive) 10/24/20 15:28 Blood Type O POSITIVE 10/27/20 12:50 Antibody Screen Negative 10/27/20 12:50 Crossmatch See Detail 10/27/20 12:50 Munoz/IV: Voiding Method Indwelling Catheter Active Medications - Current Medications Current Medications: Generic Name Dose Route Start Last Admin Trade Name Freq PRN Reason Stop Dose Admin Acetaminophen 650 mg 10/03/20 02:10 10/06/20 15:28 Acetaminophen 325 Mg Tab PO 650 mg Q4H PRN Administration Pain MILD(1-3)/Fever >100.5/ROMERO Al Hydrox/Mg Hydrox/Simethicone 30 ml 10/03/20 02:10 Alum-Mag Hydroxide-Simethicone [id number]/5ml Oral Liqd 30 Ml PO Q4H PRN Indigestion Amiodarone HCl 200 mg 10/30/20 10:00 10/30/20 10:46 Amiodarone 200 Mg Tab PO 200 mg BID JOSE Administration Lipase/Protease/Amylase 1 each 10/03/20 16:51 Lipase 10,500/Protease 25,000/Amylase 43,750 (Units) Dr Reis FEEDTUBE PRN PRN For Clogged Feeding Tube Dextrose 50 ml 10/16/20 12:42 10/21/20 17:39 Dextrose 50% In Water (25gm) 50 Ml Syringe IV 50 ml Q30MIN PRN Administration Hypoglycemia Protocol Fentanyl 50 mcg 10/22/20 10:00 10/28/20 08:56 Fentanyl 100 Mcg/2 Ml Inj IV 50 mcg Q4HR PRN Administration Pain , Severe (7-10) Ferrous Sulfate 308 mg 10/16/20 10:00 10/30/20 10:34 Ferrous Sulfate 308 Mg (62mg Elemental Iron) / 7 Ml Elixir FEEDTUBE 308 mg DAILY JOSE Administration Folic Acid 1 mg 10/03/20 10:00 10/30/20 10:35 Folic Acid 1 Mg Tab PO 1 mg QDAY JOSE Administration Glycopyrrolate 2 mg 10/29/20 20:00 10/30/20 14:51 Glycopyrrolate 2 Mg Tab PO 2 mg TID JOSE Administration Heparin Sodium (Porcine) 5,000 unit 10/30/20 11:00 10/30/20 14:59 Heparin 5,000 Unit/1 Ml Vial SUB-Q 5,000 unit Q12HR JOSE Administration NORepinephrine/NS 8 MG-250 ML 8 mg in 250 mls @ 3.75 mls/hr 10/16/20 19:00 10/21/20 16:56 Norepinephrine/Ns 8 Mg-250 Ml (Double Conc) IV 0 mcg/min TITRATE JOSE 0 mls/hr Titration Protocol 2 MCG/MIN Levetiracetam 250 mg 10/30/20 22:00 Levetiracetam 500 Mg/5 Ml Oral Liqd PO BID JOSE Magnesium Hydroxide 30 ml 10/03/20 02:10 Magnesium Hydroxide (Mom) Oral Liqd Udc PO Q4H PRN Constipation Midodrine 10 mg 10/24/20 18:00 10/30/20 10:46 Midodrine 5 Mg Tab PO 10 mg Q8H JOSE Administration Pantoprazole Sodium 40 mg 10/04/20 15:00 10/30/20 10:35 Pantoprazole 40 Mg Inj IV 40 mg QDAY JOSE Administration Promethazine HCl 25 mg 10/03/20 02:10 Promethazine 25 Mg Rect Supp IL Q6H PRN N/V IF NPO AND NO IV ACCESS Scopolamine 1 each 11/01/20 10:00 Scopolamine Transdermal Patch 72 Hr TD Q3D JOSE Senna 8.6 mg 10/03/20 02:10 Sennosides 8.6 Mg Tab PO Q12HR PRN Constipation Simple Syrup 15 ml 10/03/20 16:51 10/19/20 02:08 Simple Syrup 15 Ml FEEDTUBE 15 ml PRN PRN Administration Hypoglycemia Simple Syrup 30 ml 10/03/20 16:51 10/16/20 22:02 Simple Syrup 15 Ml FEEDTUBE 30 ml PRN PRN Administration Hypoglycemia Sodium Bicarbonate 325 mg 10/03/20 16:51 Sodium Bicarbonate 325 Mg Tab FEEDTUBE PRN PRN For Clogged Feeding Tube Nutrition/Malnutrition Assess - Dietary Evaluation Nutrition/Malnutrition Findings: Nutrition Notes Start: 10/03/20 08:51 Freq: Status: Active Protocol: Document 10/30/20 10:57 MK (Rec: 10/30/20 11:05 [id number]) Nutrition Notes Initial or Follow up Reassessment Current Diagnosis Diabetes Other Pertinent Diagnosis AMS, hypothermia, pneu, anemia , atherosclerotic cerebrovascular disease Current Diet Nepro 1.8 at 40 ml/hr Labs/Tests Na 136 BUN 48 Cr 3.2 Pertinent Medications Reviewed Height 5 ft 10 in Weight 92.1 kg [place] Body Weight (kg) 75.45 BMI 29.1 Weight Status Overweight Subjective/Other Information Pt remains on TF at goal rate and tolerating. Pt continues to get HD and is on vent. Percent of energy/protein needs met: 94%/76% Burn Absent Trauma Absent Difficulty In Swallowing Current % PO Negligible Minimum of two criteria No Fluid Accumulation Moderate to Severe (severe) #1 Nutrition Diagnosis Swallowing difficulty Diagnosis Progress(for reassessment Continues documentation) Is patient on ventilator? No Is Patient Ambulatory and/or Out of Bed No REE-([facility]-confined to bed) 1987.988 Kcal/Kg value to use for calculation 20 Approximate Energy Requirements Using 1842 kcal/Kg Calculation Used for Recommendations Kcal/kg Additional Notes Protein: (1.2-2g/kg) 102-170g Fluid: 1 ml/kcal Nutrition Intervention Change Diet Order: continue Nutrition Support: Nepro at 40ml/hour. For hyponatremia flush 50 ml q4h, once resolved resume flush at 170 ml q4h Kcal 1,728 Protein (gm) 78 Fluid (mL) 698 Goal #1 Meet at least 75% of protein and energy needs via TF Follow-Up By: 11/03/20 Additional Comments F/u: stable TF
[2020-10-30] MEDS: levETIRAcetam 500 MG/5 ML ORAL LIQD PO SCH (22:23)
[2020-10-31] MEDS: MIDODRINE 5 MG TAB PO SCH ×3 (01:06→17:57)
--- NOTE | 2020-10-31 01:49 | XRay Report ---
XR chest 1V ap INDICATION / CLINICAL INFORMATION: hypoxia. COMPARISON: 10/24/2020 FINDINGS: SUPPORT DEVICES: Unchanged. HEART /PULMONARY VASCULATURE: Unchanged. LUNGS / PLEURA: Persistent basilar predominant airspace consolidation and probable small bilateral pl eural effusions are unchanged. No pneumothorax. IMPRESSION: 1. No significant interval change. Signer Name: Zain Morrell MD Signed: 10/31/2020 1:45 AM Workstation Name: [id number]
[2020-10-31 07:13] LABS: Hematocrit 23.4 % (35.5-45.6); Hemoglobin 7.5 gm/dl (11.8-15.2); Mean Corpuscular HGB Conc 32 % (32-34); Mean Corpuscular Volume 79 fl (84-94); Platelet Count 389 K/mm3 (140-440); Red Blood Count 2.96 M/mm3 (3.65-5.03)
[2020-10-31 07:20] LABS: Red Cell Distribution Width 28.9 % (13.2-15.2)
[2020-10-31 07:29] LABS: Calcium 8.6 mg/dL (8.4-10.2)
[2020-10-31] MEDS ORDERED: SCOPOLAMINE TRANSDERMAL PATCH 72 HR TD SCH (08:00)
[2020-10-31] MEDS: GLYCOPYRROLATE 2 MG TAB PO SCH ×3 (08:22→20:14)
[2020-10-31] MEDS: PANTOPRAZOLE 40 MG INJ IV SCH (09:19)
[2020-10-31] MEDS: HEPARIN 5,000 UNIT/1 ML VIAL SUB-Q SCH ×2 (09:19→22:00)
[2020-10-31] MEDS: FOLIC ACID 1 MG TAB PO SCH (09:19)
[2020-10-31] MEDS: levETIRAcetam 500 MG/5 ML ORAL LIQD PO SCH ×2 (09:19→21:59)
[2020-10-31] MEDS: AMIODARONE 200 MG TAB PO SCH ×2 (09:20→21:59)
[2020-10-31] MEDS: FERROUS SULFATE 308 MG (62mg Elemental Iron) / 7 ML ELIXIR FEEDTUBE SCH (09:21)
[2020-10-31] MEDS: MULTIVITAMIN / MINERAL ORAL LIQUID 15 ML PO SCH (09:23)
[2020-10-31] MEDS: NORepinephrine/NS 8 MG-250 ML 8 MG/250 ML INFUS..BTL IV SCH (09:29)
--- NOTE | 2020-10-31 11:16 | Progress Note ---
Assessment and Plan Patient is a 75 y/o male Atherosclerotic cerebrovascular disease AMS * Management per primary teams Acute hypoxic respiratory failure * Pulmonology following * Currently intubated Paroxysmal Afib w/RVR HFrEF * Given pt's soft BP and on Levophed will hold off on ELADIA/ARB, BB, or non- dihydropyridine CCB * Currently on Amio 200mg PO BID * Would not recommend anticoagulation currently given anemia * Echo 10/04/2020-EF 25 to 30%, right ventricle severely dilated and moderately hypokinetic, left atrium is mildly dilated, right atrium severely dilated, moderate to severe tricuspid regurgitation, moderate mitral regurgitation tricuspid annulus dilated. Acute Renal Failure * Receiving HD * Nephrology following Patient potentially for PEG/Trach placement today. Continue amio 200mg PO BID Patient seen in conjunction with Dr. Deleon who agrees with this plan of care. Will continue to follow - Patient Problems (1) Afib Current Visit: Yes Status: Acute (2) Acute encephalopathy Current Visit: Yes Status: Acute (3) Atherosclerotic cerebrovascular disease Current Visit: Yes Status: Acute (4) Hypoglycemia Current Visit: Yes Status: Acute (5) Left-sided weakness Current Visit: Yes Status: Acute (6) Microcytic anemia Current Visit: Yes Status: Acute (7) Pulmonary infiltrate in right lung on CXR Current Visit: Yes Status: Acute (8) HFrEF (heart failure with reduced ejection fraction) Current Visit: Yes Status: Acute (9) Dilated cardiomyopathy Current Visit: Yes Status: Acute Subjective Date of service: 10/31/20 Principal diagnosis: Ac hypoxemic resp failure; Pneumonia; BETSY; Ac. encephalopathy Interval history: Patient intubated. PAtient potentially having trach/PEG placed today Patient afib 90s-100s on monitor Objective Vital Signs Temp Pulse Pulse Resp BP Pulse Ox 10/31/20 10:01 106 H 22 112/79 88 10/31/20 09:31 147 H 26 H 89/40 61 L 10/31/20 09:01 93 H 22 84/49 98 10/31/20 08:40 97 H 90/48 100 10/31/20 08:31 102 H 22 116/67 97 10/31/20 08:01 102 H 31 H 116/67 79 L 10/31/20 08:00 95 H 105 H 20 96 10/31/20 07:31 105 H 21 116/67 100 10/31/20 07:10 97.7 F 10/31/20 07:01 100 H 26 H 116/67 97 10/31/20 06:31 98 H 22 110/63 98 10/31/20 06:01 96 H 26 H 116/67 98 10/31/20 05:31 107 H 22 106/61 98 10/31/20 05:01 105 H 29 H 114/71 99 10/31/20 04:30 103 H 20 113/73 99 10/31/20 04:01 115 H 25 H 106/65 98 10/31/20 04:00 90 20 96 10/31/20 03:48 110 H 90 10/31/20 03:31 115 H 21 108/54 87 10/31/20 03:00 95 F L 98 H 25 H 117/85 90 10/31/20 02:31 101 H 24 103/61 88 10/31/20 02:01 106 H 25 H 107/61 86 10/31/20 01:31 109 H 24 100/64 86 10/31/20 01:01 114 H 24 96/44 84 10/31/20 00:31 111 H 21 108/75 85 10/31/20 00:00 106 H 106 H 21 109/66 96 10/30/20 23:56 97.7 F 10/30/20 23:31 119 H 25 H 108/80 85 10/30/20 23:24 128 H 97/60 92 10/30/20 23:00 109 H 21 103/67 91 10/30/20 22:31 130 H 16 106/66 10/30/20 22:00 97 H 20 105/66 10/30/20 21:30 100 H 22 95/65 98 10/30/20 21:00 115 H 19 113/65 92 10/30/20 20:41 94 H 24 112/79 10/30/20 20:30 102 H 19 112/79 92 10/30/20 20:26 90 98/68 93 10/30/20 20:00 97.9 F 99 H 100 H 26 H 98/68 84 10/30/20 19:31 107 H 21 97/68 10/30/20 19:00 98 H 22 95/62 10/30/20 18:30 99 H 20 104/66 100 10/30/20 18:10 102 H 98/63 100 10/30/20 18:00 102 H 15 94/60 100 10/30/20 17:30 98 H 20 96/63 99 10/30/20 17:00 98.2 F 95 H 19 98/60 89 10/30/20 16:31 109 H 16 98/66 97 10/30/20 16:00 104 H 105 H 20 105/67 99 10/30/20 15:31 132 H 20 96/62 100 10/30/20 15:00 103 H 25 H 106/67 100 10/30/20 14:30 110 H 27 H 96/62 100 10/30/20 14:00 107 H 27 H 88/57 100 10/30/20 13:30 99 H 28 H 104/61 99 10/30/20 13:01 116 H 20 101/73 92 10/30/20 12:31 101 H 20 110/72 91 10/30/20 12:00 97.5 F L 97 H 100 H 21 110/65 96 10/30/20 11:45 100 H 106/79 100 10/30/20 11:30 94 H 22 106/70 100 - Physical Examination General: Other (intubated) HEENT: Positive: Mucus Membranes Dry Neck: Positive: trachea midline Cardiac: Positive: irregularly irregular Lungs: Positive: Ventilated Respirations Neuro: Positive: Other (intubated) Abdomen: Positive: Soft Skin: Negative: Rash Extremities: Present: upper extr. pulses, lower extr. pulses, edema - Labs and Meds CBC 10/31/20 Range/Units 06:45 WBC 9.6 (4.5-11.0) K/mm3 RBC 2.96 L (3.65-5.03) M/mm3 Hgb 7.5 L (11.8-15.2) gm/dl Hct 23.4 L (35.5-45.6) % Plt Count 389 (140-440) K/mm3 Comprehensive Metabolic Panel 10/31/20 Range/Units 06:45 Sodium 137 (137-145) mmol/L Potassium 4.1 (3.6-5.0) mmol/L Chloride 98.5 (98-107) mmol/L Carbon Dioxide 31 H (22-30) mmol/L BUN 41 H (9-20) mg/dL Creatinine 2.6 H (0.8-1.3) mg/dL Glucose 96 (75-100) mg/dL Calcium 8.6 (8.4-10.2) mg/dL - Imaging and Cardiology EKG: report reviewed, image reviewed Echo: report reviewed - Telemetry EKG Rhythm: Atrial Fibrillation - EKG Supraventricular dysrhythmia: atrial fibrillation - Allied health notes Allied health notes reviewed: RT
--- NOTE | 2020-10-31 12:00 | Progress Note ---
Assessment and Plan Acute hypoxemic respiratory failure Bilateral pneumonia Bilateral pleural effusions Bilateral pulmonary edema Acute kidney injury Acute encephalopathy Severe protein calorie malnutrition Oropharyngeal dysphagia Anemia that is microcytic Oropharyngeal dysphagia - he will need a trach & PEG for safe liberation from MVS - continue schedule Midodrine - continue HD/UF per nephrology prescription for toxin and volume clearance - weaned off systemic steroids - continue care as below otherwise; - wean vasopressors for MAP > 65 mmHg - VAP bundle addressed (HOB > 40 degrees) - sedation target RASS 0 to -1 - daily SAT's & SBT assessments as tolerated - continue glycemic control withh SSI for target BG 140-180 mg while critically ill; avoid hypoglycema - continue lung protective strategies - bronchodilators with pulmonary hygiene per RT - complete AB's per ID recommendations - avoid nephrotoxins, renally dose all medications - prn analgesia per pain score - Maintenance of sleep-wake cycle, avoid delirium - supportive transfusions for serum Hb < 7.0g/dl - G.I. & VTE prophylaxis - PT/OT/ROM exercises - continue mobility protocols for pressure ulcer prophylaxis - Monitor hemodynamics closely - continue other care per attending / other consultants - discharge planning ongoing concurrently COVID SPECIFIC INTERVENTIONS - COVID-19 test negative .... Re-evaluate in am & prn CONDITION: CRITICAL PROGNOSIS: GUARDED CODE STATUS: FULL CODE The high probability of a clinically significant, sudden or life-threatening deterioration of the [respiratory, cardiovascular, & neurologic] system(s) r equired my full and direct attention, intervention and personal management. The aggregate critical care time was [34] minutes without overlap. Time includes spent on; [x] Data Review and interpretation [x] Patient assessment and monitoring of vital signs [x] Documentation [x] Medication orders and management Subjective Date of service: 10/31/20 Principal diagnosis: Ac hypoxemic resp failure; Pneumonia; BETSY; Ac. encephalopathy Interval history: Patient is seen today for: Acute hypoxemic respiratory failure; Pneumonia; Pleural effusions; BETSY; Acute encephalopathy; Severe protein calorie malnutrition Seen and examined at bedside; 24hour events reviewed; nursing and respiratory care staff consulted; no adverse overnight events reported to me; resting in bed; remains on MVS; faiuled SBT; AMS is persistent; no emesis or overt aspiration; BP's labile and Levophed ordered for dialysis Objective Vital Signs - 12hr 10/31/20 10/31/20 10/31/20 00:00 00:31 01:01 Temperature Pulse Rate 106 H 111 H 114 H Pulse Rate [ 106 H From Monitor] Respiratory 21 21 24 Rate Blood Pressure 109/66 108/75 96/44 O2 Sat by Pulse 96 85 84 Oximetry 10/31/20 10/31/20 10/31/20 01:31 02:01 02:31 Temperature Pulse Rate 109 H 106 H 101 H Pulse Rate [ From Monitor] Respiratory 24 25 H 24 Rate Blood Pressure 100/64 107/61 103/61 O2 Sat by Pulse 86 86 88 Oximetry 10/31/20 10/31/20 10/31/20 03:00 03:31 03:48 Temperature 95 F L Pulse Rate 98 H 115 H 110 H Pulse Rate [ From Monitor] Respiratory 25 H 21 Rate Blood Pressure 117/85 108/54 O2 Sat by Pulse 90 87 90 Oximetry 10/31/20 10/31/20 10/31/20 04:00 04:01 04:30 Temperature Pulse Rate 115 H 103 H Pulse Rate [ 90 From Monitor] Respiratory 20 25 H 20 Rate Blood Pressure 106/65 113/73 O2 Sat by Pulse 96 98 99 Oximetry 10/31/20 10/31/20 10/31/20 05:01 05:31 06:01 Temperature Pulse Rate 105 H 107 H 96 H Pulse Rate [ From Monitor] Respiratory 29 H 22 26 H Rate Blood Pressure 114/71 106/61 116/67 O2 Sat by Pulse 99 98 98 Oximetry 10/31/20 10/31/20 10/31/20 06:31 07:01 07:10 Temperature 97.7 F Pulse Rate 98 H 100 H Pulse Rate [ From Monitor] Respiratory 22 26 H Rate Blood Pressure 110/63 116/67 O2 Sat by Pulse 98 97 Oximetry 10/31/20 10/31/20 10/31/20 07:31 08:00 08:01 Temperature Pulse Rate 105 H 95 H 102 H Pulse Rate [ 105 H From Monitor] Respiratory 21 20 31 H Rate Blood Pressure 116/67 116/67 O2 Sat by Pulse 100 96 79 L Oximetry 10/31/20 10/31/20 10/31/20 08:31 08:40 09:01 Temperature Pulse Rate 102 H 97 H 93 H Pulse Rate [ From Monitor] Respiratory 22 22 Rate Blood Pressure 116/67 90/48 84/49 O2 Sat by Pulse 97 100 98 Oximetry 10/31/20 10/31/20 10/31/20 09:31 10:01 11:31 Temperature 97.7 F Pulse Rate 147 H 106 H Pulse Rate [ From Monitor] Respiratory 26 H 22 Rate Blood Pressure 89/40 112/79 O2 Sat by Pulse 61 L 88 Oximetry Constitutional: appears uncomfortable, other (elderly and chronically ill looking male with mildly increased respiratory effort at rest on MVS) Eyes: non-icteric ENT: oropharynx dry, other (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) Neck: supple, no lymphadenopathy, no JVD, other (RIJ Vascath) Effort: mildly labored Ascultation: Bilateral: diminished breath sounds, rhonchi Percussion: Bilateral: not dull Cardiovascular: irregular rhythm (irregularly irregular) Gastrointestinal: normoactive bowel sounds Integumentary: normal Extremities: no cyanosis, pulses normal, no ischemia or petechiae, edema (1+) Neurologic: pupils equal and round, unable to assess Psychiatric: other (unable to assess re: AMS) CBC and BMP: 10/31/20 06:45 10/31/20 06:45 ABG, PT/INR, D-dimer: ABG ABG pH 7.468 (7.320-7.450) H 10/31/20 04:12 POC ABG pCO2 41.2 mmHg (32.0-48.0) 10/31/20 04:12 POC ABG pO2 50.9 mmHg (83-108) L 10/31/20 04:12 POC ABG HCO3 29.2 10/31/20 04:12 ABG O2 Saturation 85.9 (0-100) 10/31/20 04:12 PT/INR, D-dimer PT 20.4 Sec. (12.2-14.9) H 10/24/20 05:27 INR 1.70 (0.87-1.13) H 10/24/20 05:27 D-Dimer 1992.93 ng/mlDDU (0-234) H 10/21/20 Unknown Abnormal lab findings: Abnormal Labs 10/02/20 10/02/20 10/02/20 23:17 23:17 23:17 WBC RBC 3.31 L Hgb 6.7 L Hct 21.8 L MCV 66 L MCH 20 L MCHC 31 L RDW 31.7 H Plt Count Gray % (Auto) Gray # (Auto) Seg Neutrophils % Seg Neuts % (Manual) 79.0 H Lymphocytes % (Manual) 11.0 L Monocytes % (Manual) 10.0 H Basophils % (Manual) Nucleated RBC % Seg Neutrophils # Seg Neutrophils # Man Lymphocytes # (Manual) 0.9 L Monocytes # (Manual) Basophils # (Manual) PT 20.8 H INR 1.74 H APTT 57.6 H Fibrinogen D-Dimer ABG pH POC ABG pCO2 POC ABG pO2 ABG Hemoglobin ABG Oxyhemoglobin ABG Sodium ABG Potassium ABG Chloride ABG Glucose Sodium Potassium Chloride Carbon Dioxide BUN Creatinine Glucose 42 L POC Glucose Lactic Acid Calcium Magnesium Iron Total Bilirubin Direct Bilirubin AST ALT Alkaline Phosphatase Ammonia CK-MB (CK-2) 7.5 H CK-MB (CK-2) Rel Index 8.5 H Total Protein Albumin 2.9 L Arterial Blood Glucose Arterial Blood Ionized Calcium Urine Creatinine Urine Total Protein Salicylates Acetaminophen Crossmatch 10/02/20 10/02/20 10/02/20 23:17 23:17 23:17 WBC RBC Hgb Hct MCV MCH MCHC RDW Plt Count Gray % (Auto) Gray # (Auto) Seg Neutrophils % Seg Neuts % (Manual) Lymphocytes % (Manual) Monocytes % (Manual) Basophils % (Manual) Nucleated RBC % Seg Neutrophils # Seg Neutrophils # Man Lymphocytes # (Manual) Monocytes # (Manual) Basophils # (Manual) PT INR APTT Fibrinogen D-Dimer ABG pH POC ABG pCO2 POC ABG pO2 ABG Hemoglobin ABG Oxyhemoglobin ABG Sodium ABG Potassium ABG Chloride ABG Glucose Sodium Potassium Chloride Carbon Dioxide BUN Creatinine Glucose POC Glucose Lactic Acid 2.20 H* Calcium Magnesium Iron Total Bilirubin Direct Bilirubin AST ALT Alkaline Phosphatase Ammonia 22.0 L CK-MB (CK-2) CK-MB (CK-2) Rel Index Total Protein Albumin Arterial Blood Glucose Arterial Blood Ionized Calcium Urine Creatinine Urine Total Protein Salicylates < 0.3 L Acetaminophen Crossmatch 10/02/20 10/03/20 10/03/20 23:17 05:57 05:57 WBC RBC 2.66 L Hgb 5.3 L* Hct 17.8 L* MCV 67 L MCH 20 L MCHC 30 L RDW 32.1 H Plt Count Gray % (Auto) Gray # (Auto) Seg Neutrophils % Seg Neuts % (Manual) Lymphocytes % (Manual) 2.0 L Monocytes % (Manual) Basophils % (Manual) Nucleated RBC % 1.0 H Seg Neutrophils # Seg Neutrophils # Man 8.6 H Lymphocytes # (Manual) 0.2 L Monocytes # (Manual) Basophils # (Manual) PT INR APTT Fibrinogen D-Dimer ABG pH POC ABG pCO2 POC ABG pO2 ABG Hemoglobin ABG Oxyhemoglobin ABG Sodium ABG Potassium ABG Chloride ABG Glucose Sodium Potassium Chloride Carbon Dioxide BUN Creatinine Glucose POC Glucose Lactic Acid Calcium Magnesium Iron Total Bilirubin Direct Bilirubin AST ALT Alkaline Phosphatase Ammonia CK-MB (CK-2) CK-MB (CK-2) Rel Index Total Protein Albumin Arterial Blood Glucose Arterial Blood Ionized Calcium Urine Creatinine Urine Total Protein Salicylates Acetaminophen 5.0 L Crossmatch See Detail 10/03/20 10/03/20 10/03/20 05:57 05:57 06:00 WBC RBC Hgb Hct MCV MCH MCHC RDW Plt Count Gray % (Auto) Gray # (Auto) Seg Neutrophils % Seg Neuts % (Manual) Lymphocytes % (Manual) Monocytes % (Manual) Basophils % (Manual) Nucleated RBC % Seg Neutrophils # Seg Neutrophils # Man Lymphocytes # (Manual) Monocytes # (Manual) Basophils # (Manual) PT INR APTT Fibrinogen D-Dimer ABG pH POC ABG pCO2 POC ABG pO2 ABG Hemoglobin ABG Oxyhemoglobin ABG Sodium ABG Potassium ABG Chloride ABG Glucose Sodium Potassium Chloride Carbon Dioxide BUN Creatinine Glucose 52 L POC Glucose 31 L Lactic Acid Calcium Magnesium Iron 42 L Total Bilirubin Direct Bilirubin AST ALT Alkaline Phosphatase Ammonia CK-MB (CK-2) CK-MB (CK-2) Rel Index Total Protein 5.8 L Albumin 3.1 L Arterial Blood Glucose Arterial Blood Ionized Calcium Urine Creatinine Urine Total Protein Salicylates Acetaminophen Crossmatch 10/03/20 10/03/20 10/03/20 07:34 09:43 10:57 WBC RBC Hgb Hct MCV MCH MCHC RDW Plt Count Gray % (Auto) Gray # (Auto) Seg Neutrophils % Seg Neuts % (Manual) Lymphocytes % (Manual) Monocytes % (Manual) Basophils % (Manual) Nucleated RBC % Seg Neutrophils # Seg Neutrophils # Man Lymphocytes # (Manual) Monocytes # (Manual) Basophils # (Manual) PT INR APTT Fibrinogen D-Dimer ABG pH POC ABG pCO2 POC ABG pO2 ABG Hemoglobin ABG Oxyhemoglobin ABG Sodium ABG Potassium ABG Chloride ABG Glucose Sodium Potassium Chloride Carbon Dioxide BUN Creatinine Glucose POC Glucose 59 L 41 L 31 L Lactic Acid Calcium Magnesium Iron Total Bilirubin Direct Bilirubin AST ALT Alkaline Phosphatase Ammonia CK-MB (CK-2) CK-MB (CK-2) Rel Index Total Protein Albumin Arterial Blood Glucose Arterial Blood Ionized Calcium Urine Creatinine Urine Total Protein Salicylates Acetaminophen Crossmatch 10/03/20 10/03/20 10/03/20 11:21 12:00 12:14 WBC RBC Hgb Hct MCV MCH MCHC RDW Plt Count Gray % (Auto) Gray # (Auto) Seg Neutrophils % Seg Neuts % (Manual) Lymphocytes % (Manual) Monocytes % (Manual) Basophils % (Manual) Nucleated RBC % Seg Neutrophils # Seg Neutrophils # Man Lymphocytes # (Manual) Monocytes # (Manual) Basophils # (Manual) PT INR APTT Fibrinogen D-Dimer ABG pH POC ABG pCO2 POC ABG pO2 ABG Hemoglobin ABG Oxyhemoglobin ABG Sodium ABG Potassium ABG Chloride ABG Glucose Sodium Potassium Chloride Carbon Dioxide BUN Creatinine Glucose POC Glucose 62 L 26 L 140 H Lactic Acid Calcium Magnesium Iron Total Bilirubin Direct Bilirubin AST ALT Alkaline Phosphatase Ammonia CK-MB (CK-2) CK-MB (CK-2) Rel Index Total Protein Albumin Arterial Blood Glucose Arterial Blood Ionized Calcium Urine Creatinine Urine Total Protein Salicylates Acetaminophen Crossmatch 10/03/20 10/03/20 10/03/20 13:33 14:19 14:59 WBC RBC Hgb Hct MCV MCH MCHC RDW Plt Count Gray % (Auto) Gray # (Auto) Seg Neutrophils % Seg Neuts % (Manual) Lymphocytes % (Manual) Monocytes % (Manual) Basophils % (Manual) Nucleated RBC % Seg Neutrophils # Seg Neutrophils # Man Lymphocytes # (Manual) Monocytes # (Manual) Basophils # (Manual) PT INR APTT Fibrinogen D-Dimer ABG pH POC ABG pCO2 POC ABG pO2 ABG Hemoglobin ABG Oxyhemoglobin ABG Sodium ABG Potassium ABG Chloride ABG Glucose Sodium Potassium Chloride Carbon Dioxide BUN Creatinine Glucose POC Glucose 24 L 59 L 40 L Lactic Acid Calcium Magnesium Iron Total Bilirubin Direct Bilirubin AST ALT Alkaline Phosphatase Ammonia CK-MB (CK-2) CK-MB (CK-2) Rel Index Total Protein Albumin Arterial Blood Glucose Arterial Blood Ionized Calcium Urine Creatinine Urine Total Protein Salicylates Acetaminophen Crossmatch 0810/03/20 10/03/20 15:26 15:57 16:35 WBC RBC Hgb Hct MCV MCH MCHC RDW Plt Count Gray % (Auto) Gray # (Auto) Seg Neutrophils % Seg Neuts % (Manual) Lymphocytes % (Manual) Monocytes % (Manual) Basophils % (Manual) Nucleated RBC % Seg Neutrophils # Seg Neutrophils # Man Lymphocytes # (Manual) Monocytes # (Manual) Basophils # (Manual) PT INR APTT Fibrinogen D-Dimer ABG pH POC ABG pCO2 POC ABG pO2 ABG Hemoglobin ABG Oxyhemoglobin ABG Sodium ABG Potassium ABG Chloride ABG Glucose Sodium Potassium Chloride Carbon Dioxide BUN Creatinine Glucose POC Glucose 54 L 45 L 42 L Lactic Acid Calcium Magnesium Iron Total Bilirubin Direct Bilirubin AST ALT Alkaline Phosphatase Ammonia CK-MB (CK-2) CK-MB (CK-2) Rel Index Total Protein Albumin Arterial Blood Glucose Arterial Blood Ionized Calcium Urine Creatinine Urine Total Protein Salicylates Acetaminophen Crossmatch 10/03/20 10/03/20 10/03/20 17:16 18:37 19:56 WBC RBC Hgb Hct MCV MCH MCHC RDW Plt Count Gray % (Auto) Gray # (Auto) Seg Neutrophils % Seg Neuts % (Manual) Lymphocytes % (Manual) Monocytes % (Manual) Basophils % (Manual) Nucleated RBC % Seg Neutrophils # Seg Neutrophils # Man Lymphocytes # (Manual) Monocytes # (Manual) Basophils # (Manual) PT INR APTT Fibrinogen D-Dimer ABG pH POC ABG pCO2 POC ABG pO2 ABG Hemoglobin ABG Oxyhemoglobin ABG Sodium ABG Potassium ABG Chloride ABG Glucose Sodium Potassium Chloride Carbon Dioxide BUN Creatinine Glucose POC Glucose 41 L 46 L 57 L Lactic Acid Calcium Magnesium Iron Total Bilirubin Direct Bilirubin AST ALT Alkaline Phosphatase Ammonia CK-MB (CK-2) CK-MB (CK-2) Rel Index Total Protein Albumin Arterial Blood Glucose Arterial Blood Ionized Calcium Urine Creatinine Urine Total Protein Salicylates Acetaminophen Crossmatch 10/03/20 10/04/20 10/04/20 21:32 01:04 01:11 WBC RBC Hgb 9.6 L D Hct 28.3 L D MCV MCH MCHC RDW Plt Count Gray % (Auto) Gray # (Auto) Seg Neutrophils % Seg Neuts % (Manual) Lymphocytes % (Manual) Monocytes % (Manual) Basophils % (Manual) Nucleated RBC % Seg Neutrophils # Seg Neutrophils # Man Lymphocytes # (Manual) Monocytes # (Manual) Basophils # (Manual) PT INR APTT Fibrinogen D-Dimer ABG pH POC ABG pCO2 POC ABG pO2 ABG Hemoglobin ABG Oxyhemoglobin ABG Sodium ABG Potassium ABG Chloride ABG Glucose Sodium Potassium Chloride Carbon Dioxide BUN Creatinine Glucose POC Glucose 65 L 51 L Lactic Acid Calcium Magnesium Iron Total Bilirubin Direct Bilirubin AST ALT Alkaline Phosphatase Ammonia CK-MB (CK-2) CK-MB (CK-2) Rel Index Total Protein Albumin Arterial Blood Glucose Arterial Blood Ionized Calcium Urine Creatinine Urine Total Protein Salicylates Acetaminophen Crossmatch 10/04/20 10/04/20 10/04/20 05:59 05:59 15:10 WBC 13.4 H RBC Hgb 9.9 L 10.1 L Hct 32.0 L 31.8 L MCV 76 L MCH 24 L MCHC 31 L RDW 31.3 H Plt Count Gray % (Auto) Gray # (Auto) Seg Neutrophils % Seg Neuts % (Manual) 86.0 H Lymphocytes % (Manual) 6.0 L Monocytes % (Manual) 8.0 H Basophils % (Manual) Nucleated RBC % 2.0 H Seg Neutrophils # Seg Neutrophils # Man 11.5 H Lymphocytes # (Manual) 0.8 L Monocytes # (Manual) 1.1 H Basophils # (Manual) PT INR APTT Fibrinogen D-Dimer ABG pH POC ABG pCO2 POC ABG pO2 ABG Hemoglobin ABG Oxyhemoglobin ABG Sodium ABG Potassium ABG Chloride ABG Glucose Sodium 136 L Potassium 3.5 L Chloride Carbon Dioxide 19 L D BUN Creatinine Glucose POC Glucose Lactic Acid Calcium Magnesium Iron Total Bilirubin Direct Bilirubin AST ALT Alkaline Phosphatase Ammonia CK-MB (CK-2) CK-MB (CK-2) Rel Index Total Protein Albumin 2.6 L Arterial Blood Glucose Arterial Blood Ionized Calcium Urine Creatinine Urine Total Protein Salicylates Acetaminophen Crossmatch 10/04/20 10/04/20 10/05/20 16:28 22:33 04:43 WBC RBC Hgb 10.5 L Hct 32.5 L MCV MCH MCHC RDW Plt Count Gray % (Auto) Gray # (Auto) Seg Neutrophils % Seg Neuts % (Manual) Lymphocytes % (Manual) Monocytes % (Manual) Basophils % (Manual) Nucleated RBC % Seg Neutrophils # Seg Neutrophils # Man Lymphocytes # (Manual) Monocytes # (Manual) Basophils # (Manual) PT INR APTT Fibrinogen D-Dimer ABG pH POC ABG pCO2 POC ABG pO2 ABG Hemoglobin ABG Oxyhemoglobin ABG Sodium ABG Potassium ABG Chloride ABG Glucose Sodium Potassium Chloride Carbon Dioxide BUN Creatinine Glucose POC Glucose 66 L 113 H Lactic Acid Calcium Magnesium Iron Total Bilirubin Direct Bilirubin AST ALT Alkaline Phosphatase Ammonia CK-MB (CK-2) CK-MB (CK-2) Rel Index Total Protein Albumin Arterial Blood Glucose Arterial Blood Ionized Calcium Urine Creatinine Urine Total Protein Salicylates Acetaminophen Crossmatch 10/05/20 10/05/20 10/05/20 05:00 09:42 11:57 WBC RBC Hgb 9.8 L Hct 30.5 L MCV 74 L MCH 24 L MCHC RDW 31.6 H Plt Count Gray % (Auto) Gray # (Auto) Seg Neutrophils % Seg Neuts % (Manual) Lymphocytes % (Manual) Monocytes % (Manual) Basophils % (Manual) Nucleated RBC % Seg Neutrophils # Seg Neutrophils # Man Lymphocytes # (Manual) Monocytes # (Manual) Basophils # (Manual) PT INR APTT Fibrinogen D-Dimer ABG pH POC ABG pCO2 POC ABG pO2 ABG Hemoglobin ABG Oxyhemoglobin ABG Sodium ABG Potassium ABG Chloride ABG Glucose Sodium 132 L Potassium 3.5 L Chloride Carbon Dioxide 19 L BUN Creatinine 0.7 L Glucose POC Glucose 129 H Lactic Acid Calcium Magnesium Iron Total Bilirubin Direct Bilirubin AST ALT Alkaline Phosphatase Ammonia CK-MB (CK-2) CK-MB (CK-2) Rel Index Total Protein Albumin Arterial Blood Glucose Arterial Blood Ionized Calcium Urine Creatinine Urine Total Protein Salicylates Acetaminophen Crossmatch 10/05/20 10/05/20 10/06/20 16:47 21:51 05:07 WBC RBC Hgb 9.4 L Hct 30.1 L MCV 76 L MCH 24 L MCHC 31 L RDW 31.1 H Plt Count Gray % (Auto) Gray # (Auto) Seg Neutrophils % Seg Neuts % (Manual) Lymphocytes % (Manual) Monocytes % (Manual) Basophils % (Manual) Nucleated RBC % Seg Neutrophils # Seg Neutrophils # Man Lymphocytes # (Manual) Monocytes # (Manual) Basophils # (Manual) PT INR APTT Fibrinogen D-Dimer ABG pH POC ABG pCO2 POC ABG pO2 ABG Hemoglobin ABG Oxyhemoglobin ABG Sodium ABG Potassium ABG Chloride ABG Glucose Sodium Potassium Chloride Carbon Dioxide BUN Creatinine Glucose POC Glucose 132 H 115 H Lactic Acid Calcium Magnesium Iron Total Bilirubin Direct Bilirubin AST ALT Alkaline Phosphatase Ammonia CK-MB (CK-2) CK-MB (CK-2) Rel Index Total Protein Albumin Arterial Blood Glucose Arterial Blood Ionized Calcium Urine Creatinine Urine Total Protein Salicylates Acetaminophen Crossmatch 10/06/20 10/06/20 10/06/20 05:07 15:37 21:01 WBC RBC Hgb Hct MCV MCH MCHC RDW Plt Count Gray % (Auto) Gray # (Auto) Seg Neutrophils % Seg Neuts % (Manual) Lymphocytes % (Manual) Monocytes % (Manual) Basophils % (Manual) Nucleated RBC % Seg Neutrophils # Seg Neutrophils # Man Lymphocytes # (Manual) Monocytes # (Manual) Basophils # (Manual) PT INR APTT Fibrinogen D-Dimer ABG pH POC ABG pCO2 POC ABG pO2 ABG Hemoglobin ABG Oxyhemoglobin ABG Sodium ABG Potassium ABG Chloride ABG Glucose Sodium 133 L Potassium 3.5 L Chloride Carbon Dioxide 21 L BUN Creatinine 0.6 L Glucose 105 H POC Glucose 136 H 108 H Lactic Acid Calcium Magnesium Iron Total Bilirubin Direct Bilirubin AST ALT Alkaline Phosphatase Ammonia CK-MB (CK-2) CK-MB (CK-2) Rel Index Total Protein Albumin Arterial Blood Glucose Arterial Blood Ionized Calcium Urine Creatinine Urine Total Protein Salicylates Acetaminophen Crossmatch 10/07/20 10/07/20 10/07/20 04:52 04:52 06:07 WBC RBC Hgb 9.6 L Hct 29.4 L MCV 73 L MCH 24 L MCHC RDW 32.2 H Plt Count Gray % (Auto) Gray # (Auto) Seg Neutrophils % Seg Neuts % (Manual) Lymphocytes % (Manual) Monocytes % (Manual) Basophils % (Manual) Nucleated RBC % Seg Neutrophils # Seg Neutrophils # Man Lymphocytes # (Manual) Monocytes # (Manual) Basophils # (Manual) PT INR APTT Fibrinogen D-Dimer ABG pH POC ABG pCO2 POC ABG pO2 ABG Hemoglobin ABG Oxyhemoglobin ABG Sodium ABG Potassium ABG Chloride ABG Glucose Sodium 128 L Potassium Chloride Carbon Dioxide 20 L BUN Creatinine 0.7 L Glucose POC Glucose 110 H Lactic Acid Calcium Magnesium Iron Total Bilirubin Direct Bilirubin AST ALT Alkaline Phosphatase Ammonia CK-MB (CK-2) CK-MB (CK-2) Rel Index Total Protein Albumin Arterial Blood Glucose Arterial Blood Ionized Calcium Urine Creatinine Urine Total Protein Salicylates Acetaminophen Crossmatch 10/07/20 10/07/20 10/07/20 17:09 18:53 20:35 WBC RBC Hgb Hct MCV MCH MCHC RDW Plt Count Gray % (Auto) Gray # (Auto) Seg Neutrophils % Seg Neuts % (Manual) Lymphocytes % (Manual) Monocytes % (Manual) Basophils % (Manual) Nucleated RBC % Seg Neutrophils # Seg Neutrophils # Man Lymphocytes # (Manual) Monocytes # (Manual) Basophils # (Manual) PT INR APTT Fibrinogen D-Dimer ABG pH POC ABG pCO2 POC ABG pO2 ABG Hemoglobin ABG Oxyhemoglobin ABG Sodium ABG Potassium ABG Chloride ABG Glucose Sodium Potassium Chloride Carbon Dioxide BUN Creatinine Glucose POC Glucose 67 L 66 L 62 L Lactic Acid Calcium Magnesium Iron Total Bilirubin Direct Bilirubin AST ALT Alkaline Phosphatase Ammonia CK-MB (CK-2) CK-MB (CK-2) Rel Index Total Protein Albumin Arterial Blood Glucose Arterial Blood Ionized Calcium Urine Creatinine Urine Total Protein Salicylates Acetaminophen Crossmatch 10/07/20 10/08/20 10/08/20 21:55 05:00 05:00 WBC RBC Hgb 9.6 L Hct 29.4 L MCV 73 L MCH 24 L MCHC RDW 32.4 H Plt Count Gray % (Auto) Gray # (Auto) Seg Neutrophils % 80.6 H Seg Neuts % (Manual) 88.0 H Lymphocytes % (Manual) 9.0 L Monocytes % (Manual) Basophils % (Manual) Nucleated RBC % 5.0 H Seg Neutrophils # Seg Neutrophils # Man Lymphocytes # (Manual) 0.5 L Monocytes # (Manual) Basophils # (Manual) PT INR APTT Fibrinogen D-Dimer ABG pH POC ABG pCO2 POC ABG pO2 ABG Hemoglobin ABG Oxyhemoglobin ABG Sodium ABG Potassium ABG Chloride ABG Glucose Sodium 126 L Potassium Chloride 96.3 L Carbon Dioxide BUN Creatinine 0.7 L Glucose POC Glucose 132 H Lactic Acid Calcium Magnesium Iron Total Bilirubin Direct Bilirubin AST ALT Alkaline Phosphatase Ammonia CK-MB (CK-2) CK-MB (CK-2) Rel Index Total Protein Albumin Arterial Blood Glucose Arterial Blood Ionized Calcium Urine Creatinine Urine Total Protein Salicylates Acetaminophen Crossmatch 10/08/20 10/09/20 10/09/20 22:26 01:36 02:22 WBC RBC Hgb Hct MCV MCH MCHC RDW Plt Count Gray % (Auto) Gray # (Auto) Seg Neutrophils % Seg Neuts % (Manual) Lymphocytes % (Manual) Monocytes % (Manual) Basophils % (Manual) Nucleated RBC % Seg Neutrophils # Seg Neutrophils # Man Lymphocytes # (Manual) Monocytes # (Manual) Basophils # (Manual) PT INR APTT Fibrinogen D-Dimer ABG pH POC ABG pCO2 POC ABG pO2 ABG Hemoglobin ABG Oxyhemoglobin ABG Sodium ABG Potassium ABG Chloride ABG Glucose Sodium Potassium Chloride Carbon Dioxide BUN Creatinine Glucose POC Glucose 63 L 62 L 151 H Lactic Acid Calcium Magnesium Iron Total Bilirubin Direct Bilirubin AST ALT Alkaline Phosphatase Ammonia CK-MB (CK-2) CK-MB (CK-2) Rel Index Total Protein Albumin Arterial Blood Glucose Arterial Blood Ionized Calcium Urine Creatinine Urine Total Protein Salicylates Acetaminophen Crossmatch 10/09/20 10/09/20 10/09/20 05:07 05:42 06:32 WBC RBC Hgb 10.3 L Hct 33.8 L MCV 77 L MCH 24 L MCHC 31 L RDW 33.6 H Plt Count 137 L Gray % (Auto) Gray # (Auto) Seg Neutrophils % Seg Neuts % (Manual) 89.0 H Lymphocytes % (Manual) 5.0 L Monocytes % (Manual) Basophils % (Manual) Nucleated RBC % 4.0 H Seg Neutrophils # Seg Neutrophils # Man 9.4 H Lymphocytes # (Manual) 0.5 L Monocytes # (Manual) Basophils # (Manual) PT INR APTT Fibrinogen D-Dimer ABG pH POC ABG pCO2 POC ABG pO2 ABG Hemoglobin ABG Oxyhemoglobin ABG Sodium ABG Potassium ABG Chloride ABG Glucose Sodium 126 L Potassium Chloride 97.8 L Carbon Dioxide 20 L BUN Creatinine Glucose 58 L POC Glucose 48 L Lactic Acid Calcium Magnesium Iron Total Bilirubin Direct Bilirubin AST ALT Alkaline Phosphatase Ammonia CK-MB (CK-2) CK-MB (CK-2) Rel Index Total Protein Albumin Arterial Blood Glucose Arterial Blood Ionized Calcium Urine Creatinine Urine Total Protein Salicylates Acetaminophen Crossmatch 10/09/20 10/10/20 10/10/20 06:35 00:21 05:53 WBC RBC Hgb Hct MCV MCH MCHC RDW Plt Count Gray % (Auto) Gray # (Auto) Seg Neutrophils % Seg Neuts % (Manual) Lymphocytes % (Manual) Monocytes % (Manual) Basophils % (Manual) Nucleated RBC % Seg Neutrophils # Seg Neutrophils # Man Lymphocytes # (Manual) Monocytes # (Manual) Basophils # (Manual) PT INR APTT Fibrinogen D-Dimer ABG pH POC ABG pCO2 POC ABG pO2 ABG Hemoglobin ABG Oxyhemoglobin ABG Sodium ABG Potassium ABG Chloride ABG Glucose Sodium Potassium Chloride Carbon Dioxide BUN Creatinine Glucose POC Glucose 106 H 153 H 34 L Lactic Acid Calcium Magnesium Iron Total Bilirubin Direct Bilirubin AST ALT Alkaline Phosphatase Ammonia CK-MB (CK-2) CK-MB (CK-2) Rel Index Total Protein Albumin Arterial Blood Glucose Arterial Blood Ionized Calcium Urine Creatinine Urine Total Protein Salicylates Acetaminophen Crossmatch 10/10/20 10/10/20 10/10/20 10:58 10:58 12:39 WBC RBC Hgb 10.3 L Hct 33.9 L MCV 78 L MCH 24 L MCHC 30 L RDW 33.2 H Plt Count 135 L Gray % (Auto) Gray # (Auto) Seg Neutrophils % Seg Neuts % (Manual) 74.0 H Lymphocytes % (Manual) 12.0 L Monocytes % (Manual) 9.0 H Basophils % (Manual) 2.0 H Nucleated RBC % Seg Neutrophils # Seg Neutrophils # Man Lymphocytes # (Manual) 1.0 L Monocytes # (Manual) Basophils # (Manual) 0.2 H PT INR APTT Fibrinogen D-Dimer ABG pH POC ABG pCO2 POC ABG pO2 ABG Hemoglobin ABG Oxyhemoglobin ABG Sodium ABG Potassium ABG Chloride ABG Glucose Sodium 127 L Potassium Chloride Carbon Dioxide 20 L BUN 23 H Creatinine Glucose POC Glucose 108 H Lactic Acid Calcium Magnesium Iron Total Bilirubin Direct Bilirubin AST ALT Alkaline Phosphatase Ammonia CK-MB (CK-2) CK-MB (CK-2) Rel Index Total Protein Albumin Arterial Blood Glucose Arterial Blood Ionized Calcium Urine Creatinine Urine Total Protein Salicylates Acetaminophen Crossmatch 10/10/20 10/11/20 10/11/20 16:51 04:56 05:51 WBC RBC Hgb 9.5 L Hct 31.3 L MCV 77 L MCH 23 L MCHC 30 L RDW 33.7 H Plt Count Gray % (Auto) Gray # (Auto) Seg Neutrophils % Seg Neuts % (Manual) 95.0 H Lymphocytes % (Manual) 2.0 L Monocytes % (Manual) Basophils % (Manual) Nucleated RBC % 3.0 H Seg Neutrophils # Seg Neutrophils # Man 8.0 H Lymphocytes # (Manual) 0.2 L Monocytes # (Manual) Basophils # (Manual) PT INR APTT Fibrinogen D-Dimer ABG pH POC ABG pCO2 POC ABG pO2 ABG Hemoglobin ABG Oxyhemoglobin ABG Sodium ABG Potassium ABG Chloride ABG Glucose Sodium Potassium Chloride Carbon Dioxide BUN Creatinine Glucose POC Glucose 142 H 124 H Lactic Acid Calcium Magnesium Iron Total Bilirubin Direct Bilirubin AST ALT Alkaline Phosphatase Ammonia CK-MB (CK-2) CK-MB (CK-2) Rel Index Total Protein Albumin Arterial Blood Glucose Arterial Blood Ionized Calcium Urine Creatinine Urine Total Protein Salicylates Acetaminophen Crossmatch 10/11/20 10/11/20 10/12/20 05:51 11:56 04:53 WBC RBC Hgb 9.5 L Hct 30.0 L MCV 75 L MCH 24 L MCHC RDW 32.8 H Plt Count 136 L Gray % (Auto) Gray # (Auto) Seg Neutrophils % Seg Neuts % (Manual) 89.0 H Lymphocytes % (Manual) 5.0 L Monocytes % (Manual) Basophils % (Manual) Nucleated RBC % Seg Neutrophils # Seg Neutrophils # Man Lymphocytes # (Manual) 0.4 L Monocytes # (Manual) Basophils # (Manual) PT INR APTT Fibrinogen D-Dimer ABG pH POC ABG pCO2 POC ABG pO2 ABG Hemoglobin ABG Oxyhemoglobin ABG Sodium ABG Potassium ABG Chloride ABG Glucose Sodium 130 L Potassium Chloride Carbon Dioxide 18 L BUN 23 H Creatinine Glucose POC Glucose 126 H Lactic Acid Calcium Magnesium Iron Total Bilirubin Direct Bilirubin AST ALT Alkaline Phosphatase Ammonia CK-MB (CK-2) CK-MB (CK-2) Rel Index Total Protein Albumin Arterial Blood Glucose Arterial Blood Ionized Calcium Urine Creatinine Urine Total Protein Salicylates Acetaminophen Crossmatch 10/12/20 10/12/20 10/12/20 04:53 11:42 23:49 WBC RBC Hgb Hct MCV MCH MCHC RDW Plt Count Gray % (Auto) Gray # (Auto) Seg Neutrophils % Seg Neuts % (Manual) Lymphocytes % (Manual) Monocytes % (Manual) Basophils % (Manual) Nucleated RBC % Seg Neutrophils # Seg Neutrophils # Man Lymphocytes # (Manual) Monocytes # (Manual) Basophils # (Manual) PT INR APTT Fibrinogen D-Dimer ABG pH POC ABG pCO2 POC ABG pO2 ABG Hemoglobin ABG Oxyhemoglobin ABG Sodium ABG Potassium ABG Chloride ABG Glucose Sodium 130 L Potassium Chloride Carbon Dioxide 18 L BUN 25 H Creatinine Glucose 74 L POC Glucose 59 L 51 L Lactic Acid Calcium Magnesium Iron Total Bilirubin Direct Bilirubin AST ALT Alkaline Phosphatase Ammonia CK-MB (CK-2) CK-MB (CK-2) Rel Index Total Protein Albumin Arterial Blood Glucose Arterial Blood Ionized Calcium Urine Creatinine Urine Total Protein Salicylates Acetaminophen Crossmatch 10/13/20 10/13/20 10/13/20 03:17 05:24 05:24 WBC RBC Hgb 9.4 L Hct 29.4 L MCV 75 L MCH 24 L MCHC RDW 32.9 H Plt Count 95 L Gray % (Auto) Gray # (Auto) Seg Neutrophils % Seg Neuts % (Manual) 90.0 H Lymphocytes % (Manual) Monocytes % (Manual) Basophils % (Manual) Nucleated RBC % 2.0 H Seg Neutrophils # Seg Neutrophils # Man 9.5 H Lymphocytes # (Manual) 0.0 L Monocytes # (Manual) Basophils # (Manual) PT INR APTT Fibrinogen D-Dimer ABG pH POC ABG pCO2 POC ABG pO2 ABG Hemoglobin ABG Oxyhemoglobin ABG Sodium ABG Potassium ABG Chloride ABG Glucose Sodium 132 L Potassium Chloride Carbon Dioxide 17 L BUN 26 H Creatinine 1.6 H Glucose POC Glucose 67 L Lactic Acid Calcium Magnesium Iron Total Bilirubin Direct Bilirubin AST ALT Alkaline Phosphatase Ammonia CK-MB (CK-2) CK-MB (CK-2) Rel Index Total Protein Albumin Arterial Blood Glucose Arterial Blood Ionized Calcium Urine Creatinine Urine Total Protein Salicylates Acetaminophen Crossmatch 10/13/20 10/14/20 10/14/20 11:36 05:04 05:04 WBC 17.4 H RBC Hgb 9.3 L Hct 29.3 L MCV 76 L MCH 24 L MCHC RDW 33.8 H Plt Count 83 L Gray % (Auto) Gray # (Auto) Seg Neutrophils % Seg Neuts % (Manual) 89.0 H Lymphocytes % (Manual) 4.0 L Monocytes % (Manual) Basophils % (Manual) Nucleated RBC % 1.0 H Seg Neutrophils # Seg Neutrophils # Man 15.5 H Lymphocytes # (Manual) 0.7 L Monocytes # (Manual) Basophils # (Manual) PT INR APTT Fibrinogen D-Dimer ABG pH POC ABG pCO2 POC ABG pO2 ABG Hemoglobin ABG Oxyhemoglobin ABG Sodium ABG Potassium ABG Chloride ABG Glucose Sodium 132 L Potassium 5.3 H Chloride 108.7 H Carbon Dioxide 15 L BUN 25 H Creatinine 1.5 H Glucose POC Glucose 58 L Lactic Acid Calcium Magnesium Iron Total Bilirubin Direct Bilirubin AST ALT Alkaline Phosphatase Ammonia CK-MB (CK-2) CK-MB (CK-2) Rel Index Total Protein Albumin Arterial Blood Glucose Arterial Blood Ionized Calcium Urine Creatinine Urine Total Protein Salicylates Acetaminophen Crossmatch 10/14/20 10/14/20 10/14/20 05:41 08:19 15:34 WBC RBC Hgb Hct MCV MCH MCHC RDW Plt Count Gray % (Auto) Gray # (Auto) Seg Neutrophils % Seg Neuts % (Manual) Lymphocytes % (Manual) Monocytes % (Manual) Basophils % (Manual) Nucleated RBC % Seg Neutrophils # Seg Neutrophils # Man Lymphocytes # (Manual) Monocytes # (Manual) Basophils # (Manual) PT INR APTT Fibrinogen D-Dimer ABG pH POC ABG pCO2 POC ABG pO2 ABG Hemoglobin ABG Oxyhemoglobin ABG Sodium ABG Potassium ABG Chloride ABG Glucose Sodium 134 L Potassium 5.2 H Chloride 111.1 H Carbon Dioxide 16 L BUN 25 H Creatinine 1.5 H Glucose POC Glucose 58 L 120 H Lactic Acid Calcium Magnesium Iron Total Bilirubin Direct Bilirubin AST ALT Alkaline Phosphatase Ammonia CK-MB (CK-2) CK-MB (CK-2) Rel Index Total Protein Albumin Arterial Blood Glucose Arterial Blood Ionized Calcium Urine Creatinine Urine Total Protein Salicylates Acetaminophen Crossmatch 10/14/20 10/15/20 10/15/20 Unknown 05:50 05:50 WBC 14.1 H RBC Hgb 9.4 L Hct 29.9 L MCV 76 L MCH 24 L MCHC 31 L RDW 34.2 H Plt Count 86 L Gray % (Auto) 8.3 H Gray # (Auto) 1.3 H Seg Neutrophils % 86.5 H Seg Neuts % (Manual) Lymphocytes % (Manual) 9.0 L Monocytes % (Manual) Basophils % (Manual) Nucleated RBC % 6.0 H Seg Neutrophils # 13.2 H Seg Neutrophils # Man 9.7 H Lymphocytes # (Manual) Monocytes # (Manual) Basophils # (Manual) PT INR APTT Fibrinogen D-Dimer ABG pH POC ABG pCO2 POC ABG pO2 ABG Hemoglobin ABG Oxyhemoglobin ABG Sodium ABG Potassium ABG Chloride ABG Glucose Sodium 134 L Potassium Chloride 109.9 H Carbon Dioxide 18 L BUN 26 H Creatinine 1.5 H Glucose 125 H POC Glucose Lactic Acid Calcium Magnesium Iron Total Bilirubin Direct Bilirubin AST ALT Alkaline Phosphatase Ammonia CK-MB (CK-2) CK-MB (CK-2) Rel Index Total Protein Albumin Arterial Blood Glucose Arterial Blood Ionized Calcium Urine Creatinine 144.2 H Urine Total Protein 97 H Salicylates Acetaminophen Crossmatch 10/15/20 10/15/20 10/15/20 05:55 07:36 07:59 WBC RBC Hgb Hct MCV MCH MCHC RDW Plt Count Gray % (Auto) Gray # (Auto) Seg Neutrophils % Seg Neuts % (Manual) Lymphocytes % (Manual) Monocytes % (Manual) Basophils % (Manual) Nucleated RBC % Seg Neutrophils # Seg Neutrophils # Man Lymphocytes # (Manual) Monocytes # (Manual) Basophils # (Manual) PT INR APTT Fibrinogen D-Dimer ABG pH 7.052 L POC ABG pCO2 65.0 H POC ABG pO2 214.1 H ABG Hemoglobin 10.6 L ABG Oxyhemoglobin 98.3 H ABG Sodium 130.6 L ABG Potassium ABG Chloride 110.0 H ABG Glucose 124 H Sodium Potassium Chloride Carbon Dioxide BUN Creatinine Glucose POC Glucose 113 H 114 H Lactic Acid Calcium Magnesium Iron Total Bilirubin Direct Bilirubin AST ALT Alkaline Phosphatase Ammonia CK-MB (CK-2) CK-MB (CK-2) Rel Index Total Protein Albumin Arterial Blood Glucose 124 H Arterial Blood Ionized Calcium Urine Creatinine Urine Total Protein Salicylates Acetaminophen Crossmatch 10/15/20 10/15/20 10/15/20 10:50 11:27 13:56 WBC RBC Hgb Hct MCV MCH MCHC RDW Plt Count Gray % (Auto) Gray # (Auto) Seg Neutrophils % Seg Neuts % (Manual) Lymphocytes % (Manual) Monocytes % (Manual) Basophils % (Manual) Nucleated RBC % Seg Neutrophils # Seg Neutrophils # Man Lymphocytes # (Manual) Monocytes # (Manual) Basophils # (Manual) PT INR APTT Fibrinogen D-Dimer ABG pH 7.200 L POC ABG pCO2 POC ABG pO2 123.1 H ABG Hemoglobin ABG Oxyhemoglobin ABG Sodium 131.3 L ABG Potassium 4.6 H ABG Chloride 112.0 H ABG Glucose 42 L Sodium Potassium Chloride Carbon Dioxide BUN Creatinine Glucose POC Glucose 50 L 476 H Lactic Acid Calcium Magnesium Iron Total Bilirubin Direct Bilirubin AST ALT Alkaline Phosphatase Ammonia CK-MB (CK-2) CK-MB (CK-2) Rel Index Total Protein Albumin Arterial Blood Glucose 42 L Arterial Blood Ionized Calcium Urine Creatinine Urine Total Protein Salicylates Acetaminophen Crossmatch 10/15/20 10/15/20 10/16/20 16:46 17:01 00:45 WBC RBC Hgb Hct MCV MCH MCHC RDW Plt Count Gray % (Auto) Gray # (Auto) Seg Neutrophils % Seg Neuts % (Manual) Lymphocytes % (Manual) Monocytes % (Manual) Basophils % (Manual) Nucleated RBC % Seg Neutrophils # Seg Neutrophils # Man Lymphocytes # (Manual) Monocytes # (Manual) Basophils # (Manual) PT INR APTT Fibrinogen D-Dimer ABG pH 7.250 L POC ABG pCO2 POC ABG pO2 49.8 L ABG Hemoglobin 9.3 L ABG Oxyhemoglobin 83.0 L ABG Sodium 130.2 L ABG Potassium ABG Chloride 111.0 H ABG Glucose Sodium 135 L Potassium Chloride Carbon Dioxide BUN Creatinine Glucose POC Glucose 67 L Lactic Acid Calcium Magnesium Iron Total Bilirubin Direct Bilirubin AST ALT Alkaline Phosphatase Ammonia CK-MB (CK-2) CK-MB (CK-2) Rel Index Total Protein Albumin Arterial Blood Glucose Arterial Blood Ionized Calcium Urine Creatinine Urine Total Protein Salicylates Acetaminophen Crossmatch 10/16/20 10/16/20 10/16/20 05:36 05:53 05:53 WBC 16.6 H RBC 3.52 L Hgb 8.3 L Hct 26.6 L MCV 75 L MCH 23 L MCHC 31 L RDW 33.7 H Plt Count 63 L Gray % (Auto) Gray # (Auto) Seg Neutrophils % Seg Neuts % (Manual) 93.0 H Lymphocytes % (Manual) Monocytes % (Manual) Basophils % (Manual) Nucleated RBC % 3.0 H Seg Neutrophils # Seg Neutrophils # Man 15.4 H Lymphocytes # (Manual) 0.0 L Monocytes # (Manual) Basophils # (Manual) PT INR APTT Fibrinogen D-Dimer ABG pH POC ABG pCO2 POC ABG pO2 ABG Hemoglobin ABG Oxyhemoglobin ABG Sodium ABG Potassium ABG Chloride ABG Glucose Sodium 136 L Potassium Chloride 111.9 H Carbon Dioxide 17 L BUN 29 H Creatinine 2.0 H Glucose 126 H POC Glucose 44 L Lactic Acid Calcium 8.1 L Magnesium Iron Total Bilirubin Direct Bilirubin AST ALT Alkaline Phosphatase Ammonia CK-MB (CK-2) CK-MB (CK-2) Rel Index Total Protein Albumin Arterial Blood Glucose Arterial Blood Ionized Calcium Urine Creatinine Urine Total Protein Salicylates Acetaminophen Crossmatch 10/16/20 10/16/20 10/16/20 05:53 07:26 08:07 WBC RBC Hgb Hct MCV MCH MCHC RDW Plt Count Gray % (Auto) Gray # (Auto) Seg Neutrophils % Seg Neuts % (Manual) Lymphocytes % (Manual) Monocytes % (Manual) Basophils % (Manual) Nucleated RBC % Seg Neutrophils # Seg Neutrophils # Man Lymphocytes # (Manual) Monocytes # (Manual) Basophils # (Manual) PT 24.5 H INR 2.17 H APTT Fibrinogen D-Dimer ABG pH POC ABG pCO2 POC ABG pO2 ABG Hemoglobin ABG Oxyhemoglobin ABG Sodium ABG Potassium ABG Chloride ABG Glucose Sodium Potassium Chloride Carbon Dioxide BUN Creatinine Glucose POC Glucose 58 L 51 L Lactic Acid Calcium Magnesium Iron Total Bilirubin Direct Bilirubin AST ALT Alkaline Phosphatase Ammonia CK-MB (CK-2) CK-MB (CK-2) Rel Index Total Protein Albumin Arterial Blood Glucose Arterial Blood Ionized Calcium Urine Creatinine Urine Total Protein Salicylates Acetaminophen Crossmatch 10/16/20 10/16/20 10/16/20 08:52 11:14 11:33 WBC RBC Hgb Hct MCV MCH MCHC RDW Plt Count Gray % (Auto) Gray # (Auto) Seg Neutrophils % Seg Neuts % (Manual) Lymphocytes % (Manual) Monocytes % (Manual) Basophils % (Manual) Nucleated RBC % Seg Neutrophils # Seg Neutrophils # Man Lymphocytes # (Manual) Monocytes # (Manual) Basophils # (Manual) PT INR APTT Fibrinogen D-Dimer ABG pH 7.044 L POC ABG pCO2 58.1 H POC ABG pO2 57.7 L ABG Hemoglobin 9.5 L ABG Oxyhemoglobin 81.5 L ABG Sodium 131.7 L ABG Potassium ABG Chloride 112.0 H ABG Glucose 59 L Sodium Potassium Chloride Carbon Dioxide BUN Creatinine Glucose POC Glucose 58 L Lactic Acid Calcium Magnesium Iron Total Bilirubin Direct Bilirubin AST 136 H ALT 72 H Alkaline Phosphatase 240 H Ammonia CK-MB (CK-2) CK-MB (CK-2) Rel Index Total Protein 5.1 L Albumin 2.1 L Arterial Blood Glucose 59 L Arterial Blood Ionized Calcium Urine Creatinine Urine Total Protein Salicylates Acetaminophen Crossmatch 10/16/20 10/16/20 10/16/20 12:32 13:11 13:40 WBC RBC Hgb Hct MCV MCH MCHC RDW Plt Count Gray % (Auto) Gray # (Auto) Seg Neutrophils % Seg Neuts % (Manual) Lymphocytes % (Manual) Monocytes % (Manual) Basophils % (Manual) Nucleated RBC % Seg Neutrophils # Seg Neutrophils # Man Lymphocytes # (Manual) Monocytes # (Manual) Basophils # (Manual) PT INR APTT Fibrinogen D-Dimer ABG pH POC ABG pCO2 POC ABG pO2 ABG Hemoglobin ABG Oxyhemoglobin ABG Sodium ABG Potassium ABG Chloride ABG Glucose Sodium Potassium Chloride Carbon Dioxide BUN Creatinine Glucose POC Glucose 27 L 54 L 69 L Lactic Acid Calcium Magnesium Iron Total Bilirubin Direct Bilirubin AST ALT Alkaline Phosphatase Ammonia CK-MB (CK-2) CK-MB (CK-2) Rel Index Total Protein Albumin Arterial Blood Glucose Arterial Blood Ionized Calcium Urine Creatinine Urine Total Protein Salicylates Acetaminophen Crossmatch 10/16/20 10/16/20 10/16/20 15:13 17:15 17:34 WBC RBC Hgb Hct MCV MCH MCHC RDW Plt Count Gray % (Auto) Gray # (Auto) Seg Neutrophils % Seg Neuts % (Manual) Lymphocytes % (Manual) Monocytes % (Manual) Basophils % (Manual) Nucleated RBC % Seg Neutrophils # Seg Neutrophils # Man Lymphocytes # (Manual) Monocytes # (Manual) Basophils # (Manual) PT INR APTT Fibrinogen D-Dimer ABG pH POC ABG pCO2 POC ABG pO2 ABG Hemoglobin ABG Oxyhemoglobin ABG Sodium ABG Potassium ABG Chloride ABG Glucose Sodium Potassium Chloride Carbon Dioxide BUN Creatinine Glucose POC Glucose 46 L 54 L 119 H Lactic Acid Calcium Magnesium Iron Total Bilirubin Direct Bilirubin AST ALT Alkaline Phosphatase Ammonia CK-MB (CK-2) CK-MB (CK-2) Rel Index Total Protein Albumin Arterial Blood Glucose Arterial Blood Ionized Calcium Urine Creatinine Urine Total Protein Salicylates Acetaminophen Crossmatch 10/16/20 10/16/20 10/16/20 18:51 19:37 21:00 WBC RBC Hgb Hct MCV MCH MCHC RDW Plt Count Gray % (Auto) Gray # (Auto) Seg Neutrophils % Seg Neuts % (Manual) Lymphocytes % (Manual) Monocytes % (Manual) Basophils % (Manual) Nucleated RBC % Seg Neutrophils # Seg Neutrophils # Man Lymphocytes # (Manual) Monocytes # (Manual) Basophils # (Manual) PT INR APTT Fibrinogen D-Dimer ABG pH 7.122 L POC ABG pCO2 49.8 H POC ABG pO2 62.1 L ABG Hemoglobin 9.1 L ABG Oxyhemoglobin 89.6 L ABG Sodium 130.1 L ABG Potassium 3.0 L ABG Chloride 111.0 H ABG Glucose 106 H Sodium Potassium Chloride Carbon Dioxide BUN Creatinine Glucose POC Glucose 64 L 114 H Lactic Acid Calcium Magnesium Iron Total Bilirubin Direct Bilirubin AST ALT Alkaline Phosphatase Ammonia CK-MB (CK-2) CK-MB (CK-2) Rel Index Total Protein Albumin Arterial Blood Glucose 106 H Arterial Blood Ionized Calcium Urine Creatinine Urine Total Protein Salicylates Acetaminophen Crossmatch 10/16/20 10/16/20 10/17/20 22:01 22:58 00:58 WBC RBC Hgb Hct MCV MCH MCHC RDW Plt Count Gray % (Auto) Gray # (Auto) Seg Neutrophils % Seg Neuts % (Manual) Lymphocytes % (Manual) Monocytes % (Manual) Basophils % (Manual) Nucleated RBC % Seg Neutrophils # Seg Neutrophils # Man Lymphocytes # (Manual) Monocytes # (Manual) Basophils # (Manual) PT INR APTT Fibrinogen D-Dimer ABG pH POC ABG pCO2 POC ABG pO2 ABG Hemoglobin ABG Oxyhemoglobin ABG Sodium ABG Potassium ABG Chloride ABG Glucose Sodium 133 L Potassium 3.5 L Chloride 107.7 H Carbon Dioxide 15 L BUN 29 H Creatinine 2.6 H Glucose POC Glucose 63 L 292 H Lactic Acid Calcium 7.9 L Magnesium Iron Total Bilirubin Direct Bilirubin AST ALT Alkaline Phosphatase Ammonia CK-MB (CK-2) CK-MB (CK-2) Rel Index Total Protein Albumin Arterial Blood Glucose Arterial Blood Ionized Calcium Urine Creatinine Urine Total Protein Salicylates Acetaminophen Crossmatch 10/17/20 10/17/20 10/17/20 02:04 03:08 03:55 WBC RBC Hgb Hct MCV MCH MCHC RDW Plt Count Gray % (Auto) Gray # (Auto) Seg Neutrophils % Seg Neuts % (Manual) Lymphocytes % (Manual) Monocytes % (Manual) Basophils % (Manual) Nucleated RBC % Seg Neutrophils # Seg Neutrophils # Man Lymphocytes # (Manual) Monocytes # (Manual) Basophils # (Manual) PT INR APTT Fibrinogen D-Dimer ABG pH POC ABG pCO2 POC ABG pO2 ABG Hemoglobin ABG Oxyhemoglobin ABG Sodium ABG Potassium ABG Chloride ABG Glucose Sodium Potassium Chloride Carbon Dioxide BUN Creatinine Glucose POC Glucose 200 H 173 H 161 H Lactic Acid Calcium Magnesium Iron Total Bilirubin Direct Bilirubin AST ALT Alkaline Phosphatase Ammonia CK-MB (CK-2) CK-MB (CK-2) Rel Index Total Protein Albumin Arterial Blood Glucose Arterial Blood Ionized Calcium Urine Creatinine Urine Total Protein Salicylates Acetaminophen Crossmatch 10/17/20 10/17/20 10/17/20 04:00 04:49 04:49 WBC 17.7 H RBC 3.21 L Hgb 7.5 L Hct 25.4 L MCV 79 L MCH 24 L MCHC 30 L RDW 34.0 H Plt Count 40 L Gray % (Auto) Gray # (Auto) Seg Neutrophils % Seg Neuts % (Manual) Lymphocytes % (Manual) 3.0 L Monocytes % (Manual) Basophils % (Manual) Nucleated RBC % 3.0 H Seg Neutrophils # Seg Neutrophils # Man 10.6 H Lymphocytes # (Manual) 0.5 L Monocytes # (Manual) 1.1 H Basophils # (Manual) PT INR APTT Fibrinogen D-Dimer ABG pH 7.116 L POC ABG pCO2 POC ABG pO2 61.1 L ABG Hemoglobin 8.4 L ABG Oxyhemoglobin 90.2 L ABG Sodium 125.0 L ABG Potassium 3.1 L ABG Chloride ABG Glucose 155 H Sodium 133 L Potassium 3.3 L Chloride Carbon Dioxide 15 L BUN 29 H Creatinine 2.7 H Glucose 138 H POC Glucose Lactic Acid Calcium 7.8 L Magnesium Iron Total Bilirubin Direct Bilirubin AST ALT Alkaline Phosphatase Ammonia CK-MB (CK-2) CK-MB (CK-2) Rel Index Total Protein Albumin Arterial Blood Glucose 155 H Arterial Blood Ionized Calcium Urine Creatinine Urine Total Protein Salicylates Acetaminophen Crossmatch 10/17/20 10/17/20 10/17/20 04:58 06:01 07:50 WBC RBC Hgb Hct MCV MCH MCHC RDW Plt Count Gray % (Auto) Gray # (Auto) Seg Neutrophils % Seg Neuts % (Manual) Lymphocytes % (Manual) Monocytes % (Manual) Basophils % (Manual) Nucleated RBC % Seg Neutrophils # Seg Neutrophils # Man Lymphocytes # (Manual) Monocytes # (Manual) Basophils # (Manual) PT INR APTT Fibrinogen D-Dimer ABG pH POC ABG pCO2 POC ABG pO2 ABG Hemoglobin ABG Oxyhemoglobin ABG Sodium ABG Potassium ABG Chloride ABG Glucose Sodium Potassium Chloride Carbon Dioxide BUN Creatinine Glucose POC Glucose 137 H 119 H 106 H Lactic Acid Calcium Magnesium Iron Total Bilirubin Direct Bilirubin AST ALT Alkaline Phosphatase Ammonia CK-MB (CK-2) CK-MB (CK-2) Rel Index Total Protein Albumin Arterial Blood Glucose Arterial Blood Ionized Calcium Urine Creatinine Urine Total Protein Salicylates Acetaminophen Crossmatch 10/17/20 10/17/20 10/17/20 11:50 15:11 18:11 WBC RBC Hgb Hct MCV MCH MCHC RDW Plt Count Gray % (Auto) Gray # (Auto) Seg Neutrophils % Seg Neuts % (Manual) Lymphocytes % (Manual) Monocytes % (Manual) Basophils % (Manual) Nucleated RBC % Seg Neutrophils # Seg Neutrophils # Man Lymphocytes # (Manual) Monocytes # (Manual) Basophils # (Manual) PT INR APTT Fibrinogen D-Dimer ABG pH POC ABG pCO2 POC ABG pO2 ABG Hemoglobin ABG Oxyhemoglobin ABG Sodium ABG Potassium ABG Chloride ABG Glucose Sodium Potassium Chloride Carbon Dioxide BUN Creatinine Glucose POC Glucose 111 H 114 H 137 H Lactic Acid Calcium Magnesium Iron Total Bilirubin Direct Bilirubin AST ALT Alkaline Phosphatase Ammonia CK-MB (CK-2) CK-MB (CK-2) Rel Index Total Protein Albumin Arterial Blood Glucose Arterial Blood Ionized Calcium Urine Creatinine Urine Total Protein Salicylates Acetaminophen Crossmatch 10/17/20 10/17/20 10/18/20 19:51 23:32 04:00 WBC RBC Hgb Hct MCV MCH MCHC RDW Plt Count Gray % (Auto) Gray # (Auto) Seg Neutrophils % Seg Neuts % (Manual) Lymphocytes % (Manual) Monocytes % (Manual) Basophils % (Manual) Nucleated RBC % Seg Neutrophils # Seg Neutrophils # Man Lymphocytes # (Manual) Monocytes # (Manual) Basophils # (Manual) PT INR APTT Fibrinogen D-Dimer ABG pH 7.276 L POC ABG pCO2 POC ABG pO2 77.7 L ABG Hemoglobin 7.2 L ABG Oxyhemoglobin ABG Sodium 122.6 L ABG Potassium ABG Chloride ABG Glucose 113 H Sodium Potassium Chloride Carbon Dioxide BUN Creatinine Glucose POC Glucose 130 H 114 H Lactic Acid Calcium Magnesium Iron Total Bilirubin Direct Bilirubin AST ALT Alkaline Phosphatase Ammonia CK-MB (CK-2) CK-MB (CK-2) Rel Index Total Protein Albumin Arterial Blood Glucose 113 H Arterial Blood Ionized Calcium Urine Creatinine Urine Total Protein Salicylates Acetaminophen Crossmatch 10/18/20 10/18/20 10/18/20 04:06 04:06 04:13 WBC RBC Hgb Hct MCV MCH MCHC RDW Plt Count Gray % (Auto) Gray # (Auto) Seg Neutrophils % Seg Neuts % (Manual) Lymphocytes % (Manual) Monocytes % (Manual) Basophils % (Manual) Nucleated RBC % Seg Neutrophils # Seg Neutrophils # Man Lymphocytes # (Manual) Monocytes # (Manual) Basophils # (Manual) PT 23.5 H INR 2.05 H APTT Fibrinogen D-Dimer ABG pH POC ABG pCO2 POC ABG pO2 ABG Hemoglobin ABG Oxyhemoglobin ABG Sodium ABG Potassium ABG Chloride ABG Glucose Sodium 123 L D Potassium Chloride 97.9 L Carbon Dioxide 16 L BUN 31 H Creatinine 3.1 H Glucose 113 H POC Glucose 108 H Lactic Acid Calcium 7.4 L Magnesium Iron Total Bilirubin Direct Bilirubin AST ALT Alkaline Phosphatase Ammonia CK-MB (CK-2) CK-MB (CK-2) Rel Index Total Protein Albumin Arterial Blood Glucose Arterial Blood Ionized Calcium Urine Creatinine Urine Total Protein Salicylates Acetaminophen Crossmatch 10/18/20 10/18/20 10/18/20 10:03 14:12 19:08 WBC RBC Hgb Hct MCV MCH MCHC RDW Plt Count Gray % (Auto) Gray # (Auto) Seg Neutrophils % Seg Neuts % (Manual) Lymphocytes % (Manual) Monocytes % (Manual) Basophils % (Manual) Nucleated RBC % Seg Neutrophils # Seg Neutrophils # Man Lymphocytes # (Manual) Monocytes # (Manual) Basophils # (Manual) PT INR APTT Fibrinogen D-Dimer ABG pH POC ABG pCO2 POC ABG pO2 ABG Hemoglobin ABG Oxyhemoglobin ABG Sodium ABG Potassium ABG Chloride ABG Glucose Sodium Potassium Chloride Carbon Dioxide BUN Creatinine Glucose POC Glucose 139 H 112 H Lactic Acid Calcium Magnesium Iron Total Bilirubin Direct Bilirubin AST ALT Alkaline Phosphatase Ammonia CK-MB (CK-2) CK-MB (CK-2) Rel Index Total Protein Albumin Arterial Blood Glucose Arterial Blood Ionized Calcium Urine Creatinine Urine Total Protein Salicylates Acetaminophen Crossmatch See Detail 10/18/20 10/19/20 10/19/20 Unknown 02:02 04:00 WBC 19.8 H RBC 2.95 L Hgb 6.9 L Hct 22.2 L MCV 75 L MCH 24 L MCHC 31 L RDW 33.6 H Plt Count 28 L Gray % (Auto) Gray # (Auto) Seg Neutrophils % Seg Neuts % (Manual) Lymphocytes % (Manual) Monocytes % (Manual) Basophils % (Manual) Nucleated RBC % Seg Neutrophils # Seg Neutrophils # Man Lymphocytes # (Manual) Monocytes # (Manual) Basophils # (Manual) PT INR APTT Fibrinogen D-Dimer ABG pH 7.234 L POC ABG pCO2 POC ABG pO2 53.9 L ABG Hemoglobin 8.9 L ABG Oxyhemoglobin 86.6 L ABG Sodium 118.1 L ABG Potassium ABG Chloride 94.0 L ABG Glucose 61 L Sodium Potassium Chloride Carbon Dioxide BUN Creatinine Glucose POC Glucose 64 L Lactic Acid Calcium Magnesium Iron Total Bilirubin Direct Bilirubin AST ALT Alkaline Phosphatase Ammonia CK-MB (CK-2) CK-MB (CK-2) Rel Index Total Protein Albumin Arterial Blood Glucose 61 L Arterial Blood Ionized Calcium 4.5 L Urine Creatinine Urine Total Protein Salicylates Acetaminophen Crossmatch 10/19/20 10/19/20 10/19/20 04:51 04:51 05:43 WBC 18.2 H RBC 3.26 L Hgb 7.9 L Hct 24.6 L MCV 76 L MCH 24 L MCHC RDW 30.7 H Plt Count 41 L Gray % (Auto) Gray # (Auto) Seg Neutrophils % Seg Neuts % (Manual) Lymphocytes % (Manual) Monocytes % (Manual) Basophils % (Manual) Nucleated RBC % Seg Neutrophils # Seg Neutrophils # Man Lymphocytes # (Manual) Monocytes # (Manual) Basophils # (Manual) PT INR APTT Fibrinogen D-Dimer ABG pH POC ABG pCO2 POC ABG pO2 ABG Hemoglobin ABG Oxyhemoglobin ABG Sodium ABG Potassium ABG Chloride ABG Glucose Sodium 122 L Potassium Chloride 94.6 L Carbon Dioxide 17 L BUN 33 H Creatinine 3.5 H Glucose 63 L POC Glucose 54 L Lactic Acid Calcium 7.3 L Magnesium Iron Total Bilirubin 1.50 H Direct Bilirubin 0.9 H AST ALT Alkaline Phosphatase 154 H Ammonia CK-MB (CK-2) CK-MB (CK-2) Rel Index Total Protein 4.2 L Albumin 1.9 L Arterial Blood Glucose Arterial Blood Ionized Calcium Urine Creatinine Urine Total Protein Salicylates Acetaminophen Crossmatch 10/19/20 10/19/20 10/19/20 11:23 11:45 14:24 WBC RBC Hgb Hct MCV MCH MCHC RDW Plt Count Gray % (Auto) Gray # (Auto) Seg Neutrophils % Seg Neuts % (Manual) Lymphocytes % (Manual) Monocytes % (Manual) Basophils % (Manual) Nucleated RBC % Seg Neutrophils # Seg Neutrophils # Man Lymphocytes # (Manual) Monocytes # (Manual) Basophils # (Manual) PT INR APTT Fibrinogen D-Dimer ABG pH POC ABG pCO2 POC ABG pO2 ABG Hemoglobin ABG Oxyhemoglobin ABG Sodium ABG Potassium ABG Chloride ABG Glucose Sodium Potassium Chloride Carbon Dioxide BUN Creatinine Glucose POC Glucose 47 L 117 H 47 L Lactic Acid Calcium Magnesium Iron Total Bilirubin Direct Bilirubin AST ALT Alkaline Phosphatase Ammonia CK-MB (CK-2) CK-MB (CK-2) Rel Index Total Protein Albumin Arterial Blood Glucose Arterial Blood Ionized Calcium Urine Creatinine Urine Total Protein Salicylates Acetaminophen Crossmatch 10/19/20 10/19/20 10/19/20 16:31 20:04 20:19 WBC RBC Hgb Hct MCV MCH MCHC RDW Plt Count Gray % (Auto) Gray # (Auto) Seg Neutrophils % Seg Neuts % (Manual) Lymphocytes % (Manual) Monocytes % (Manual) Basophils % (Manual) Nucleated RBC % Seg Neutrophils # Seg Neutrophils # Man Lymphocytes # (Manual) Monocytes # (Manual) Basophils # (Manual) PT INR APTT Fibrinogen D-Dimer ABG pH POC ABG pCO2 POC ABG pO2 ABG Hemoglobin ABG Oxyhemoglobin ABG Sodium ABG Potassium ABG Chloride ABG Glucose Sodium Potassium Chloride Carbon Dioxide BUN Creatinine Glucose 59 L POC Glucose 58 L 49 L Lactic Acid Calcium Magnesium Iron Total Bilirubin Direct Bilirubin AST ALT Alkaline Phosphatase Ammonia CK-MB (CK-2) CK-MB (CK-2) Rel Index Total Protein Albumin Arterial Blood Glucose Arterial Blood Ionized Calcium Urine Creatinine Urine Total Protein Salicylates Acetaminophen Crossmatch 10/20/20 10/20/20 10/20/20 00:17 03:59 08:43 WBC 13.1 H RBC 3.42 L Hgb 8.3 L Hct 25.3 L MCV 74 L MCH 24 L MCHC RDW 31.4 H Plt Count 35 L Gray % (Auto) Gray # (Auto) Seg Neutrophils % Seg Neuts % (Manual) Lymphocytes % (Manual) Monocytes % (Manual) Basophils % (Manual) Nucleated RBC % Seg Neutrophils # Seg Neutrophils # Man Lymphocytes # (Manual) Monocytes # (Manual) Basophils # (Manual) PT INR APTT Fibrinogen D-Dimer ABG pH POC ABG pCO2 POC ABG pO2 ABG Hemoglobin ABG Oxyhemoglobin ABG Sodium ABG Potassium ABG Chloride ABG Glucose Sodium Potassium Chloride Carbon Dioxide BUN Creatinine Glucose POC Glucose 29 L 47 L Lactic Acid Calcium Magnesium Iron Total Bilirubin Direct Bilirubin AST ALT Alkaline Phosphatase Ammonia CK-MB (CK-2) CK-MB (CK-2) Rel Index Total Protein Albumin Arterial Blood Glucose Arterial Blood Ionized Calcium Urine Creatinine Urine Total Protein Salicylates Acetaminophen Crossmatch 10/20/20 10/20/20 10/20/20 08:43 08:43 09:56 WBC RBC Hgb Hct MCV MCH MCHC RDW Plt Count Gray % (Auto) Gray # (Auto) Seg Neutrophils % Seg Neuts % (Manual) Lymphocytes % (Manual) Monocytes % (Manual) Basophils % (Manual) Nucleated RBC % Seg Neutrophils # Seg Neutrophils # Man Lymphocytes # (Manual) Monocytes # (Manual) Basophils # (Manual) PT 30.1 H INR 2.82 H APTT Fibrinogen D-Dimer ABG pH POC ABG pCO2 POC ABG pO2 ABG Hemoglobin ABG Oxyhemoglobin ABG Sodium ABG Potassium ABG Chloride ABG Glucose Sodium 119 L* Potassium Chloride 90.7 L Carbon Dioxide 20 L BUN 35 H Creatinine 3.3 H Glucose 57 L POC Glucose 61 L Lactic Acid Calcium 7.7 L Magnesium 1.30 L Iron Total Bilirubin 1.60 H Direct Bilirubin AST ALT Alkaline Phosphatase 152 H Ammonia CK-MB (CK-2) CK-MB (CK-2) Rel Index Total Protein 4.5 L Albumin 1.6 L Arterial Blood Glucose Arterial Blood Ionized Calcium Urine Creatinine Urine Total Protein Salicylates Acetaminophen Crossmatch 10/20/20 10/20/20 10/20/20 15:35 17:30 20:17 WBC RBC Hgb Hct MCV MCH MCHC RDW Plt Count Gray % (Auto) Gray # (Auto) Seg Neutrophils % Seg Neuts % (Manual) Lymphocytes % (Manual) Monocytes % (Manual) Basophils % (Manual) Nucleated RBC % Seg Neutrophils # Seg Neutrophils # Man Lymphocytes # (Manual) Monocytes # (Manual) Basophils # (Manual) PT INR APTT Fibrinogen D-Dimer ABG pH POC ABG pCO2 POC ABG pO2 ABG Hemoglobin ABG Oxyhemoglobin ABG Sodium ABG Potassium ABG Chloride ABG Glucose Sodium 121 L 120 L Potassium Chloride Carbon Dioxide BUN Creatinine Glucose POC Glucose 61 L Lactic Acid Calcium Magnesium Iron Total Bilirubin Direct Bilirubin AST ALT Alkaline Phosphatase Ammonia CK-MB (CK-2) CK-MB (CK-2) Rel Index Total Protein Albumin Arterial Blood Glucose Arterial Blood Ionized Calcium Urine Creatinine Urine Total Protein Salicylates Acetaminophen Crossmatch 10/20/20 10/20/20 10/21/20 23:00 23:37 01:00 WBC RBC Hgb Hct MCV MCH MCHC RDW Plt Count Gray % (Auto) Gray # (Auto) Seg Neutrophils % Seg Neuts % (Manual) Lymphocytes % (Manual) Monocytes % (Manual) Basophils % (Manual) Nucleated RBC % Seg Neutrophils # Seg Neutrophils # Man Lymphocytes # (Manual) Monocytes # (Manual) Basophils # (Manual) PT INR APTT Fibrinogen D-Dimer ABG pH POC ABG pCO2 POC ABG pO2 ABG Hemoglobin ABG Oxyhemoglobin ABG Sodium ABG Potassium ABG Chloride ABG Glucose Sodium 121 L Potassium Chloride Carbon Dioxide BUN Creatinine Glucose POC Glucose 33 L 36 L Lactic Acid Calcium Magnesium Iron Total Bilirubin Direct Bilirubin AST ALT Alkaline Phosphatase Ammonia CK-MB (CK-2) CK-MB (CK-2) Rel Index Total Protein Albumin Arterial Blood Glucose Arterial Blood Ionized Calcium Urine Creatinine Urine Total Protein Salicylates Acetaminophen Crossmatch 10/21/20 10/21/20 10/21/20 02:31 04:00 05:22 WBC RBC Hgb Hct MCV MCH MCHC RDW Plt Count Gray % (Auto) Gray # (Auto) Seg Neutrophils % Seg Neuts % (Manual) Lymphocytes % (Manual) Monocytes % (Manual) Basophils % (Manual) Nucleated RBC % Seg Neutrophils # Seg Neutrophils # Man Lymphocytes # (Manual) Monocytes # (Manual) Basophils # (Manual) PT INR APTT Fibrinogen D-Dimer ABG pH POC ABG pCO2 POC ABG pO2 66.6 L ABG Hemoglobin 8.7 L ABG Oxyhemoglobin 92.1 L ABG Sodium 117.9 L ABG Potassium 3.2 L ABG Chloride 93.0 L ABG Glucose Sodium Potassium Chloride Carbon Dioxide BUN Creatinine Glucose POC Glucose 51 L 64 L Lactic Acid Calcium Magnesium Iron Total Bilirubin Direct Bilirubin AST ALT Alkaline Phosphatase Ammonia CK-MB (CK-2) CK-MB (CK-2) Rel Index Total Protein Albumin Arterial Blood Glucose Arterial Blood Ionized Calcium 4.4 L Urine Creatinine Urine Total Protein Salicylates Acetaminophen Crossmatch 10/21/20 10/21/20 10/21/20 05:50 05:50 10:32 WBC 11.1 H RBC 3.27 L Hgb 7.9 L Hct 23.9 L MCV 73 L MCH 24 L MCHC RDW 31.8 H Plt Count 26 L Gray % (Auto) Gray # (Auto) Seg Neutrophils % Seg Neuts % (Manual) Lymphocytes % (Manual) Monocytes % (Manual) Basophils % (Manual) Nucleated RBC % Seg Neutrophils # Seg Neutrophils # Man Lymphocytes # (Manual) Monocytes # (Manual) Basophils # (Manual) PT INR APTT Fibrinogen D-Dimer ABG pH POC ABG pCO2 POC ABG pO2 ABG Hemoglobin ABG Oxyhemoglobin ABG Sodium ABG Potassium ABG Chloride ABG Glucose Sodium 122 L Potassium 3.4 L Chloride 91.1 L Carbon Dioxide BUN 38 H Creatinine 3.2 H Glucose 56 L POC Glucose 68 L Lactic Acid Calcium 7.8 L Magnesium 1.60 L Iron Total Bilirubin Direct Bilirubin AST ALT Alkaline Phosphatase Ammonia CK-MB (CK-2) CK-MB (CK-2) Rel Index Total Protein Albumin Arterial Blood Glucose Arterial Blood Ionized Calcium Urine Creatinine Urine Total Protein Salicylates Acetaminophen Crossmatch 10/21/20 10/21/20 10/21/20 14:05 17:15 18:41 WBC RBC Hgb Hct MCV MCH MCHC RDW Plt Count Gray % (Auto) Gray # (Auto) Seg Neutrophils % Seg Neuts % (Manual) Lymphocytes % (Manual) Monocytes % (Manual) Basophils % (Manual) Nucleated RBC % Seg Neutrophils # Seg Neutrophils # Man Lymphocytes # (Manual) Monocytes # (Manual) Basophils # (Manual) PT INR APTT Fibrinogen D-Dimer ABG pH POC ABG pCO2 POC ABG pO2 ABG Hemoglobin ABG Oxyhemoglobin ABG Sodium ABG Potassium ABG Chloride ABG Glucose Sodium Potassium Chloride Carbon Dioxide BUN Creatinine Glucose POC Glucose 61 L 53 L 110 H Lactic Acid Calcium Magnesium Iron Total Bilirubin Direct Bilirubin AST ALT Alkaline Phosphatase Ammonia CK-MB (CK-2) CK-MB (CK-2) Rel Index Total Protein Albumin Arterial Blood Glucose Arterial Blood Ionized Calcium Urine Creatinine Urine Total Protein Salicylates Acetaminophen Crossmatch 10/21/20 10/21/20 10/21/20 21:08 22:20 Unknown WBC RBC Hgb Hct MCV MCH MCHC RDW Plt Count Gray % (Auto) Gray # (Auto) Seg Neutrophils % Seg Neuts % (Manual) Lymphocytes % (Manual) Monocytes % (Manual) Basophils % (Manual) Nucleated RBC % Seg Neutrophils # Seg Neutrophils # Man Lymphocytes # (Manual) Monocytes # (Manual) Basophils # (Manual) PT INR APTT Fibrinogen D-Dimer ABG pH POC ABG pCO2 POC ABG pO2 ABG Hemoglobin ABG Oxyhemoglobin ABG Sodium ABG Potassium ABG Chloride ABG Glucose Sodium 123 L 125 L Potassium 3.2 L Chloride 94.1 L Carbon Dioxide BUN 40 H Creatinine 3.3 H Glucose 64 L POC Glucose 117 H Lactic Acid Calcium 7.6 L Magnesium Iron Total Bilirubin Direct Bilirubin AST ALT Alkaline Phosphatase Ammonia CK-MB (CK-2) CK-MB (CK-2) Rel Index Total Protein Albumin Arterial Blood Glucose Arterial Blood Ionized Calcium Urine Creatinine Urine Total Protein Salicylates Acetaminophen Crossmatch 10/21/20 10/21/20 10/22/20 Unknown Unknown 02:43 WBC RBC 3.40 L Hgb 8.4 L Hct 24.8 L MCV 73 L MCH 25 L MCHC RDW 31.5 H Plt Count 21 L Gray % (Auto) Gray # (Auto) Seg Neutrophils % Seg Neuts % (Manual) 83.0 H Lymphocytes % (Manual) 10.0 L Monocytes % (Manual) Basophils % (Manual) Nucleated RBC % 2.0 H Seg Neutrophils # Seg Neutrophils # Man 9.0 H Lymphocytes # (Manual) 1.1 L Monocytes # (Manual) Basophils # (Manual) PT 27.0 H INR 2.44 H APTT 61.4 H* Fibrinogen 482 H D-Dimer 1992.93 H ABG pH POC ABG pCO2 POC ABG pO2 ABG Hemoglobin ABG Oxyhemoglobin ABG Sodium ABG Potassium ABG Chloride ABG Glucose Sodium 122 L Potassium 3.1 L Chloride 92.9 L Carbon Dioxide BUN 44 H Creatinine 3.2 H Glucose POC Glucose Lactic Acid Calcium 7.8 L Magnesium Iron Total Bilirubin Direct Bilirubin AST ALT Alkaline Phosphatase Ammonia CK-MB (CK-2) CK-MB (CK-2) Rel Index Total Protein Albumin Arterial Blood Glucose Arterial Blood Ionized Calcium Urine Creatinine Urine Total Protein Salicylates Acetaminophen Crossmatch 10/22/20 10/22/20 10/22/20 04:00 06:00 20:00 WBC RBC 3.29 L Hgb 8.0 L Hct 24.3 L MCV 74 L MCH 24 L MCHC RDW 32.2 H Plt Count 21 L Gray % (Auto) Gray # (Auto) Seg Neutrophils % Seg Neuts % (Manual) Lymphocytes % (Manual) Monocytes % (Manual) Basophils % (Manual) Nucleated RBC % Seg Neutrophils # Seg Neutrophils # Man Lymphocytes # (Manual) Monocytes # (Manual) Basophils # (Manual) PT INR APTT Fibrinogen D-Dimer ABG pH POC ABG pCO2 29.1 L POC ABG pO2 64.1 L ABG Hemoglobin 8.2 L ABG Oxyhemoglobin 90.6 L ABG Sodium 118.8 L ABG Potassium ABG Chloride 96.0 L ABG Glucose 117 H Sodium 126 L Potassium Chloride 95.8 L Carbon Dioxide 21 L BUN 50 H Creatinine 3.4 H Glucose POC Glucose Lactic Acid Calcium 7.9 L Magnesium Iron Total Bilirubin Direct Bilirubin AST ALT Alkaline Phosphatase Ammonia CK-MB (CK-2) CK-MB (CK-2) Rel Index Total Protein Albumin Arterial Blood Glucose 117 H Arterial Blood Ionized Calcium Urine Creatinine Urine Total Protein Salicylates Acetaminophen Crossmatch 10/23/20 10/23/20 10/23/20 04:00 05:35 05:35 WBC RBC 2.94 L Hgb 7.3 L Hct 21.3 L MCV 72 L MCH 25 L MCHC RDW 32.3 H Plt Count 56 L D Gray % (Auto) Gray # (Auto) Seg Neutrophils % Seg Neuts % (Manual) 83.0 H Lymphocytes % (Manual) 9.0 L Monocytes % (Manual) Basophils % (Manual) Nucleated RBC % 3.0 H Seg Neutrophils # Seg Neutrophils # Man Lymphocytes # (Manual) 0.7 L Monocytes # (Manual) Basophils # (Manual) PT INR APTT Fibrinogen D-Dimer ABG pH POC ABG pCO2 29.0 L POC ABG pO2 ABG Hemoglobin 7.7 L ABG Oxyhemoglobin ABG Sodium 120.4 L ABG Potassium ABG Chloride 97.0 L ABG Glucose Sodium 128 L Potassium Chloride 96.7 L Carbon Dioxide BUN 56 H Creatinine 3.4 H Glucose POC Glucose Lactic Acid Calcium Magnesium Iron Total Bilirubin Direct Bilirubin AST ALT Alkaline Phosphatase Ammonia CK-MB (CK-2) CK-MB (CK-2) Rel Index Total Protein Albumin Arterial Blood Glucose Arterial Blood Ionized Calcium Urine Creatinine Urine Total Protein Salicylates Acetaminophen Crossmatch 0910/24/20 10/24/20 21:01 03:00 05:27 WBC RBC 2.98 L Hgb 7.4 L Hct 21.8 L MCV 73 L MCH 25 L MCHC RDW 32.2 H Plt Count 56 L Gray % (Auto) Gray # (Auto) Seg Neutrophils % Seg Neuts % (Manual) Lymphocytes % (Manual) Monocytes % (Manual) Basophils % (Manual) Nucleated RBC % Seg Neutrophils # Seg Neutrophils # Man Lymphocytes # (Manual) Monocytes # (Manual) Basophils # (Manual) PT INR APTT Fibrinogen D-Dimer ABG pH 7.490 H POC ABG pCO2 26.8 L POC ABG pO2 ABG Hemoglobin 3.3 L ABG Oxyhemoglobin 83.6 L ABG Sodium 118.0 L ABG Potassium ABG Chloride 97.0 L ABG Glucose Sodium Potassium Chloride Carbon Dioxide BUN Creatinine Glucose POC Glucose > 600 H Lactic Acid Calcium Magnesium Iron Total Bilirubin Direct Bilirubin AST ALT Alkaline Phosphatase Ammonia CK-MB (CK-2) CK-MB (CK-2) Rel Index Total Protein Albumin Arterial Blood Glucose Arterial Blood Ionized Calcium 4.5 L Urine Creatinine Urine Total Protein Salicylates Acetaminophen Crossmatch 10/24/20 10/24/20 10/24/20 05:27 05:27 10:07 WBC RBC Hgb Hct MCV MCH MCHC RDW Plt Count Gray % (Auto) Gray # (Auto) Seg Neutrophils % Seg Neuts % (Manual) Lymphocytes % (Manual) Monocytes % (Manual) Basophils % (Manual) Nucleated RBC % Seg Neutrophils # Seg Neutrophils # Man Lymphocytes # (Manual) Monocytes # (Manual) Basophils # (Manual) PT 20.4 H INR 1.70 H APTT Fibrinogen D-Dimer ABG pH POC ABG pCO2 POC ABG pO2 ABG Hemoglobin ABG Oxyhemoglobin ABG Sodium ABG Potassium ABG Chloride ABG Glucose Sodium 123 L Potassium 3.5 L Chloride 93.3 L Carbon Dioxide 20 L BUN 66 H Creatinine 3.9 H Glucose POC Glucose 110 H Lactic Acid Calcium 8.1 L Magnesium Iron Total Bilirubin Direct Bilirubin AST 54 H ALT Alkaline Phosphatase 316 H Ammonia CK-MB (CK-2) CK-MB (CK-2) Rel Index Total Protein 5.1 L Albumin 1.7 L Arterial Blood Glucose Arterial Blood Ionized Calcium Urine Creatinine Urine Total Protein Salicylates Acetaminophen Crossmatch 10/24/20 10/24/2021 18:24 23:11 23:28 WBC RBC Hgb Hct MCV MCH MCHC RDW Plt Count Gray % (Auto) Gray # (Auto) Seg Neutrophils % Seg Neuts % (Manual) Lymphocytes % (Manual) Monocytes % (Manual) Basophils % (Manual) Nucleated RBC % Seg Neutrophils # Seg Neutrophils # Man Lymphocytes # (Manual) Monocytes # (Manual) Basophils # (Manual) PT INR APTT Fibrinogen D-Dimer ABG pH POC ABG pCO2 POC ABG pO2 ABG Hemoglobin ABG Oxyhemoglobin ABG Sodium ABG Potassium ABG Chloride ABG Glucose Sodium Potassium Chloride Carbon Dioxide BUN Creatinine Glucose 142 H POC Glucose 121 H 137 H Lactic Acid Calcium Magnesium Iron Total Bilirubin Direct Bilirubin AST ALT Alkaline Phosphatase Ammonia CK-MB (CK-2) CK-MB (CK-2) Rel Index Total Protein Albumin Arterial Blood Glucose Arterial Blood Ionized Calcium Urine Creatinine Urine Total Protein Salicylates Acetaminophen Crossmatch 10/25/20 10/25/20 10/25/20 05:22 05:22 05:28 WBC RBC Hgb Hct MCV MCH MCHC RDW Plt Count Gray % (Auto) Gray # (Auto) Seg Neutrophils % Seg Neuts % (Manual) Lymphocytes % (Manual) Monocytes % (Manual) Basophils % (Manual) Nucleated RBC % Seg Neutrophils # Seg Neutrophils # Man Lymphocytes # (Manual) Monocytes # (Manual) Basophils # (Manual) PT INR APTT Fibrinogen D-Dimer ABG pH POC ABG pCO2 POC ABG pO2 ABG Hemoglobin ABG Oxyhemoglobin ABG Sodium ABG Potassium ABG Chloride ABG Glucose Sodium 133 L D Potassium Chloride Carbon Dioxide BUN 55 H Creatinine 3.1 H Glucose 127 H 127 H POC Glucose 121 H Lactic Acid Calcium Magnesium Iron Total Bilirubin Direct Bilirubin AST ALT Alkaline Phosphatase Ammonia CK-MB (CK-2) CK-MB (CK-2) Rel Index Total Protein Albumin Arterial Blood Glucose Arterial Blood Ionized Calcium Urine Creatinine Urine Total Protein Salicylates Acetaminophen Crossmatch 10/25/20 10/25/20 10/25/20 08:35 11:39 15:09 WBC RBC 2.84 L Hgb 7.0 L Hct 20.9 L MCV 74 L MCH 25 L MCHC RDW 30.8 H Plt Count 101 L Gray % (Auto) Gray # (Auto) Seg Neutrophils % Seg Neuts % (Manual) Lymphocytes % (Manual) Monocytes % (Manual) Basophils % (Manual) Nucleated RBC % Seg Neutrophils # Seg Neutrophils # Man Lymphocytes # (Manual) Monocytes # (Manual) Basophils # (Manual) PT INR APTT Fibrinogen D-Dimer ABG pH POC ABG pCO2 POC ABG pO2 ABG Hemoglobin ABG Oxyhemoglobin ABG Sodium ABG Potassium ABG Chloride ABG Glucose Sodium Potassium Chloride Carbon Dioxide BUN Creatinine Glucose 179 H POC Glucose 165 H Lactic Acid Calcium Magnesium Iron Total Bilirubin Direct Bilirubin AST ALT Alkaline Phosphatase Ammonia CK-MB (CK-2) CK-MB (CK-2) Rel Index Total Protein Albumin Arterial Blood Glucose Arterial Blood Ionized Calcium Urine Creatinine Urine Total Protein Salicylates Acetaminophen Crossmatch 10/25/20 10/25/20 10/25/20 15:15 17:51 23:10 WBC RBC Hgb Hct MCV MCH MCHC RDW Plt Count Gray % (Auto) Gray # (Auto) Seg Neutrophils % Seg Neuts % (Manual) Lymphocytes % (Manual) Monocytes % (Manual) Basophils % (Manual) Nucleated RBC % Seg Neutrophils # Seg Neutrophils # Man Lymphocytes # (Manual) Monocytes # (Manual) Basophils # (Manual) PT INR APTT Fibrinogen D-Dimer ABG pH 7.478 H POC ABG pCO2 POC ABG pO2 39.0 L ABG Hemoglobin 7.7 L ABG Oxyhemoglobin 72.9 L ABG Sodium 133.3 L ABG Potassium ABG Chloride ABG Glucose 189 H Sodium Potassium Chloride Carbon Dioxide BUN Creatinine Glucose POC Glucose 132 H 140 H Lactic Acid Calcium Magnesium Iron Total Bilirubin Direct Bilirubin AST ALT Alkaline Phosphatase Ammonia CK-MB (CK-2) CK-MB (CK-2) Rel Index Total Protein Albumin Arterial Blood Glucose 189 H Arterial Blood Ionized Calcium 4.4 L Urine Creatinine Urine Total Protein Salicylates Acetaminophen Crossmatch 10/26/20 10/26/20 10/26/20 04:30 11:00 11:28 WBC RBC 2.94 L Hgb 7.3 L Hct 22.9 L MCV 76 L MCH 25 L MCHC RDW 29.8 H Plt Count 138 L Gray % (Auto) Gray # (Auto) Seg Neutrophils % Seg Neuts % (Manual) Lymphocytes % (Manual) Monocytes % (Manual) Basophils % (Manual) Nucleated RBC % Seg Neutrophils # Seg Neutrophils # Man Lymphocytes # (Manual) Monocytes # (Manual) Basophils # (Manual) PT INR APTT Fibrinogen D-Dimer ABG pH POC ABG pCO2 POC ABG pO2 ABG Hemoglobin ABG Oxyhemoglobin ABG Sodium ABG Potassium ABG Chloride ABG Glucose Sodium 136 L Potassium Chloride Carbon Dioxide BUN 44 H Creatinine 2.7 H Glucose POC Glucose 137 H Lactic Acid Calcium 8.1 L Magnesium Iron Total Bilirubin Direct Bilirubin AST ALT Alkaline Phosphatase Ammonia CK-MB (CK-2) CK-MB (CK-2) Rel Index Total Protein Albumin Arterial Blood Glucose Arterial Blood Ionized Calcium Urine Creatinine Urine Total Protein Salicylates Acetaminophen Crossmatch 10/26/20 10/26/20 10/27/20 17:06 23:11 04:30 WBC RBC Hgb Hct MCV MCH MCHC RDW Plt Count Gray % (Auto) Gray # (Auto) Seg Neutrophils % Seg Neuts % (Manual) Lymphocytes % (Manual) Monocytes % (Manual) Basophils % (Manual) Nucleated RBC % Seg Neutrophils # Seg Neutrophils # Man Lymphocytes # (Manual) Monocytes # (Manual) Basophils # (Manual) PT INR APTT Fibrinogen D-Dimer ABG pH POC ABG pCO2 POC ABG pO2 ABG Hemoglobin ABG Oxyhemoglobin ABG Sodium ABG Potassium ABG Chloride ABG Glucose Sodium Potassium Chloride Carbon Dioxide BUN 38 H Creatinine 2.5 H Glucose 108 H POC Glucose 116 H 108 H Lactic Acid Calcium Magnesium Iron Total Bilirubin Direct Bilirubin AST ALT Alkaline Phosphatase Ammonia CK-MB (CK-2) CK-MB (CK-2) Rel Index Total Protein Albumin Arterial Blood Glucose Arterial Blood Ionized Calcium Urine Creatinine Urine Total Protein Salicylates Acetaminophen Crossmatch 10/27/20 10/27/20 10/27/20 04:30 04:57 12:50 WBC RBC 2.79 L Hgb 6.9 L Hct 21.3 L MCV 76 L MCH 25 L MCHC RDW 30.2 H Plt Count Gray % (Auto) Gray # (Auto) Seg Neutrophils % Seg Neuts % (Manual) Lymphocytes % (Manual) Monocytes % (Manual) Basophils % (Manual) Nucleated RBC % Seg Neutrophils # Seg Neutrophils # Man Lymphocytes # (Manual) Monocytes # (Manual) Basophils # (Manual) PT INR APTT Fibrinogen D-Dimer ABG pH POC ABG pCO2 POC ABG pO2 ABG Hemoglobin ABG Oxyhemoglobin ABG Sodium ABG Potassium ABG Chloride ABG Glucose Sodium Potassium Chloride Carbon Dioxide BUN Creatinine Glucose POC Glucose 106 H Lactic Acid Calcium Magnesium Iron Total Bilirubin Direct Bilirubin AST ALT Alkaline Phosphatase Ammonia CK-MB (CK-2) CK-MB (CK-2) Rel Index Total Protein Albumin Arterial Blood Glucose Arterial Blood Ionized Calcium Urine Creatinine Urine Total Protein Salicylates Acetaminophen Crossmatch See Detail 10/27/20 10/27/20 10/28/20 17:29 23:14 04:30 WBC 12.2 H RBC 3.07 L Hgb 7.8 L Hct 24.3 L MCV 79 L MCH 25 L MCHC RDW 29.5 H Plt Count Gray % (Auto) Gray # (Auto) Seg Neutrophils % Seg Neuts % (Manual) Lymphocytes % (Manual) Monocytes % (Manual) Basophils % (Manual) Nucleated RBC % Seg Neutrophils # Seg Neutrophils # Man Lymphocytes # (Manual) Monocytes # (Manual) Basophils # (Manual) PT INR APTT Fibrinogen D-Dimer ABG pH POC ABG pCO2 POC ABG pO2 ABG Hemoglobin ABG Oxyhemoglobin ABG Sodium ABG Potassium ABG Chloride ABG Glucose Sodium Potassium Chloride Carbon Dioxide BUN Creatinine Glucose POC Glucose 127 H 121 H Lactic Acid Calcium Magnesium Iron Total Bilirubin Direct Bilirubin AST ALT Alkaline Phosphatase Ammonia CK-MB (CK-2) CK-MB (CK-2) Rel Index Total Protein Albumin Arterial Blood Glucose Arterial Blood Ionized Calcium Urine Creatinine Urine Total Protein Salicylates Acetaminophen Crossmatch 10/28/20 10/28/20 10/28/20 04:30 11:26 23:15 WBC RBC Hgb Hct MCV MCH MCHC RDW Plt Count Gray % (Auto) Gray # (Auto) Seg Neutrophils % Seg Neuts % (Manual) Lymphocytes % (Manual) Monocytes % (Manual) Basophils % (Manual) Nucleated RBC % Seg Neutrophils # Seg Neutrophils # Man Lymphocytes # (Manual) Monocytes # (Manual) Basophils # (Manual) PT INR APTT Fibrinogen D-Dimer ABG pH POC ABG pCO2 POC ABG pO2 ABG Hemoglobin ABG Oxyhemoglobin ABG Sodium ABG Potassium ABG Chloride ABG Glucose Sodium Potassium 3.5 L Chloride Carbon Dioxide BUN 33 H Creatinine 2.2 H Glucose POC Glucose 127 H 111 H Lactic Acid Calcium Magnesium Iron Total Bilirubin Direct Bilirubin AST ALT Alkaline Phosphatase Ammonia CK-MB (CK-2) CK-MB (CK-2) Rel Index Total Protein Albumin Arterial Blood Glucose Arterial Blood Ionized Calcium Urine Creatinine Urine Total Protein Salicylates Acetaminophen Crossmatch 10/29/20 10/29/20 10/29/20 05:32 08:19 09:21 WBC 12.0 H RBC 3.03 L Hgb 7.7 L Hct 23.8 L MCV 78 L MCH 25 L MCHC RDW 30.1 H Plt Count Gray % (Auto) Gray # (Auto) Seg Neutrophils % Seg Neuts % (Manual) Lymphocytes % (Manual) Monocytes % (Manual) Basophils % (Manual) Nucleated RBC % Seg Neutrophils # Seg Neutrophils # Man Lymphocytes # (Manual) Monocytes # (Manual) Basophils # (Manual) PT INR APTT Fibrinogen D-Dimer ABG pH POC ABG pCO2 POC ABG pO2 ABG Hemoglobin ABG Oxyhemoglobin ABG Sodium ABG Potassium ABG Chloride ABG Glucose Sodium Potassium Chloride 97.7 L Carbon Dioxide 36 H BUN 36 H Creatinine 2.3 H Glucose 116 H POC Glucose 109 H Lactic Acid Calcium 8.2 L Magnesium Iron Total Bilirubin Direct Bilirubin AST ALT Alkaline Phosphatase Ammonia CK-MB (CK-2) CK-MB (CK-2) Rel Index Total Protein Albumin Arterial Blood Glucose Arterial Blood Ionized Calcium Urine Creatinine Urine Total Protein Salicylates Acetaminophen Crossmatch 10/30/20 10/30/20 10/30/20 04:46 04:46 11:29 WBC 11.4 H RBC 3.01 L Hgb 7.8 L Hct 24.0 L MCV 80 L MCH 26 L MCHC RDW 29.3 H Plt Count Gray % (Auto) Gray # (Auto) Seg Neutrophils % Seg Neuts % (Manual) Lymphocytes % (Manual) Monocytes % (Manual) Basophils % (Manual) Nucleated RBC % Seg Neutrophils # Seg Neutrophils # Man Lymphocytes # (Manual) Monocytes # (Manual) Basophils # (Manual) PT INR APTT Fibrinogen D-Dimer ABG pH POC ABG pCO2 POC ABG pO2 ABG Hemoglobin ABG Oxyhemoglobin ABG Sodium ABG Potassium ABG Chloride ABG Glucose Sodium 136 L Potassium Chloride 96.7 L Carbon Dioxide 33 H BUN 48 H Creatinine 3.2 H Glucose POC Glucose 126 H Lactic Acid Calcium 7.9 L Magnesium Iron Total Bilirubin Direct Bilirubin AST ALT Alkaline Phosphatase Ammonia CK-MB (CK-2) CK-MB (CK-2) Rel Index Total Protein Albumin Arterial Blood Glucose Arterial Blood Ionized Calcium Urine Creatinine Urine Total Protein Salicylates Acetaminophen Crossmatch 10/31/20 10/31/20 10/31/20 04:12 06:45 06:45 WBC RBC 2.96 L Hgb 7.5 L Hct 23.4 L MCV 79 L MCH 25 L MCHC RDW 28.9 H Plt Count Gray % (Auto) Gray # (Auto) Seg Neutrophils % Seg Neuts % (Manual) Lymphocytes % (Manual) Monocytes % (Manual) Basophils % (Manual) Nucleated RBC % Seg Neutrophils # Seg Neutrophils # Man Lymphocytes # (Manual) Monocytes # (Manual) Basophils # (Manual) PT INR APTT Fibrinogen D-Dimer ABG pH 7.468 H POC ABG pCO2 POC ABG pO2 50.9 L ABG Hemoglobin 8.2 L ABG Oxyhemoglobin 84.7 L ABG Sodium 130.7 L ABG Potassium ABG Chloride 97.0 L ABG Glucose 99 H Sodium Potassium Chloride Carbon Dioxide 31 H BUN 41 H Creatinine 2.6 H Glucose POC Glucose Lactic Acid Calcium Magnesium Iron Total Bilirubin Direct Bilirubin AST ALT Alkaline Phosphatase Ammonia CK-MB (CK-2) CK-MB (CK-2) Rel Index Total Protein Albumin Arterial Blood Glucose 99 H Arterial Blood Ionized Calcium Urine Creatinine Urine Total Protein Salicylates Acetaminophen Crossmatch Chest x-ray: image reviewed (improved bibasilar areation) Allied health notes reviewed: nursing
[2020-10-31] MEDS ORDERED: WATER FOR IRRIG STERILE 250 ML BOTTLE IR ONE (12:19)
--- NOTE | 2020-10-31 12:55 | Progress Note ---
Assessment and Plan Acute encephalopathy Hyponatremia Hypothermia, resolved Pulmonary infiltrate in right lung on CXR Atherosclerotic cerebrovascular disease Severe anemia -possible GI bleed Severe protein-calorie malnutrition Acute Renal Failure Hypokalemia Plan: -HD today for clearance and volume removal -will switch HD scheduled to TTS for now with PRN -Renal ultrasound- no hydronephrosis -Avoid nephrotoxic agents -Obtain daily weights -Monitor I/O's daily -Monitor renal function closely Subjective Date of service: 10/31/20 Principal diagnosis: Ac hypoxemic resp failure; Pneumonia; BETSY; Ac. encephalopathy Interval history: intubated and sedated. cont to to tolerate dialysis Objective - Vital Signs Vital signs: Vital Signs - 12hr 10/31/20 10/31/20 10/31/20 01:01 01:31 02:01 Temperature Pulse Rate 114 H 109 H 106 H Pulse Rate [ From Monitor] Respiratory 24 24 25 H Rate Blood Pressure 96/44 100/64 107/61 O2 Sat by Pulse 84 86 86 Oximetry 10/31/20 10/31/20 10/31/20 02:31 03:00 03:31 Temperature 95 F L Pulse Rate 101 H 98 H 115 H Pulse Rate [ From Monitor] Respiratory 24 25 H 21 Rate Blood Pressure 103/61 117/85 108/54 O2 Sat by Pulse 88 90 87 Oximetry 10/31/20 10/31/20 10/31/20 03:48 04:00 04:01 Temperature Pulse Rate 110 H 115 H Pulse Rate [ 90 From Monitor] Respiratory 20 25 H Rate Blood Pressure 106/65 O2 Sat by Pulse 90 96 98 Oximetry 10/31/20 10/31/20 10/31/20 04:30 05:01 05:31 Temperature Pulse Rate 103 H 105 H 107 H Pulse Rate [ From Monitor] Respiratory 20 29 H 22 Rate Blood Pressure 113/73 114/71 106/61 O2 Sat by Pulse 99 99 98 Oximetry 10/31/20 10/31/20 10/31/20 06:01 06:31 07:01 Temperature Pulse Rate 96 H 98 H 100 H Pulse Rate [ From Monitor] Respiratory 26 H 22 26 H Rate Blood Pressure 116/67 110/63 116/67 O2 Sat by Pulse 98 98 97 Oximetry 10/31/20 10/31/20 10/31/20 07:10 07:31 08:00 Temperature 97.7 F Pulse Rate 105 H 95 H Pulse Rate [ 105 H From Monitor] Respiratory 21 20 Rate Blood Pressure 116/67 O2 Sat by Pulse 100 96 Oximetry 10/31/20 10/31/20 10/31/20 08:01 08:31 08:40 Temperature Pulse Rate 102 H 102 H 97 H Pulse Rate [ From Monitor] Respiratory 31 H 22 Rate Blood Pressure 116/67 116/67 90/48 O2 Sat by Pulse 79 L 97 100 Oximetry 10/31/20 10/31/20 10/31/20 09:01 09:31 10:01 Temperature Pulse Rate 93 H 147 H 106 H Pulse Rate [ From Monitor] Respiratory 22 26 H 22 Rate Blood Pressure 84/49 89/40 112/79 O2 Sat by Pulse 98 61 L 88 Oximetry 10/31/20 11:31 Temperature 97.7 F Pulse Rate Pulse Rate [ From Monitor] Respiratory Rate Blood Pressure O2 Sat by Pulse Oximetry - Lab 10/31/20 06:45 10/31/20 06:45 Most recent lab results ABG pH 7.468 (7.320-7.450) H 10/31/20 04:12 ABG O2 Saturation 85.9 (0-100) 10/31/20 04:12 Calcium 8.6 mg/dL (8.4-10.2) 10/31/20 06:45 Phosphorus 2.80 mg/dL (2.5-4.5) 10/23/20 05:35 Magnesium 2.10 mg/dL (1.7-2.3) 10/23/20 05:35 Urine Creatinine 144.2 mg/dL (0.1-20.0) H 10/14/20 Unknown Urine Sodium 10 mmol/L 10/14/20 Unknown Urine Total Protein 97 mg/dL (5-11.8) H 10/14/20 Unknown Medications & Allergies - Medications Allergies/Adverse Reactions: Allergies No Known Allergies Allergy (Unverified 10/03/20 12:27) Home Medications: Home Medications Medication Instructions Recorded Confirmed Last Taken Type Unobtainable 10/10/20 10/10/20 Unknown History Active Medications: Generic Name Dose Route Start Last Admin Trade Name Freq PRN Reason Stop Dose Admin Acetaminophen 650 mg 10/03/20 02:10 10/06/20 15:28 Acetaminophen 325 Mg Tab PO 650 mg Q4H PRN Administration Pain MILD(1-3)/Fever >100.5/ROMERO Al Hydrox/Mg Hydrox/Simethicone 30 ml 10/03/20 02:10 Alum-Mag Hydroxide-Simethicone [phone]/5ml Oral Liqd 30 Ml PO Q4H PRN Indigestion Amiodarone HCl 200 mg 10/30/20 10:00 10/31/20 09:20 Amiodarone 200 Mg Tab PO 200 mg BID JOSE Administration Lipase/Protease/Amylase 1 each 10/03/20 16:51 Lipase 10,500/Protease 25,000/Amylase 43,750 (Units) Dr Reis FEEDTUBE PRN PRN For Clogged Feeding Tube Dextrose 50 ml 10/16/20 12:42 10/21/20 17:39 Dextrose 50% In Water (25gm) 50 Ml Syringe IV 50 ml Q30MIN PRN Administration Hypoglycemia Protocol Fentanyl 50 mcg 10/22/20 10:00 10/28/20 08:56 Fentanyl 100 Mcg/2 Ml Inj IV 50 mcg Q4HR PRN Administration Pain , Severe (7-10) Ferrous Sulfate 308 mg 10/16/20 10:00 10/31/20 09:21 Ferrous Sulfate 308 Mg (62mg Elemental Iron) / 7 Ml Elixir FEEDTUBE 308 mg DAILY JOSE Administration Folic Acid 1 mg 10/03/20 10:00 10/31/20 09:19 Folic Acid 1 Mg Tab PO 1 mg QDAY JOSE Administration Glycopyrrolate 2 mg 10/29/20 20:00 10/31/20 08:22 Glycopyrrolate 2 Mg Tab PO 2 mg TID JOSE Administration Heparin Sodium (Porcine) 5,000 unit 10/30/20 11:00 10/31/20 09:19 Heparin 5,000 Unit/1 Ml Vial SUB-Q 5,000 unit Q12HR JOSE Administration NORepinephrine/NS 8 MG-250 ML 8 mg in 250 mls @ 3.75 mls/hr 10/16/20 19:00 10/31/20 09:29 Norepinephrine/Ns 8 Mg-250 Ml (Double Conc) IV 3.2 mcg/min TITRATE JOSE 6 mls/hr Administration Protocol 2 MCG/MIN Levetiracetam 250 mg 10/30/20 22:00 10/31/20 09:19 Levetiracetam 500 Mg/5 Ml Oral Liqd PO 250 mg BID JOSE Administration Magnesium Hydroxide 30 ml 10/03/20 02:10 Magnesium Hydroxide (Mom) Oral Liqd Udc PO Q4H PRN Constipation Midodrine 10 mg 10/24/20 18:00 10/31/20 09:19 Midodrine 5 Mg Tab PO 10 mg Q8H JOSE Administration Pantoprazole Sodium 40 mg 10/04/20 15:00 10/31/20 09:19 Pantoprazole 40 Mg Inj IV 40 mg QDAY JOSE Administration Promethazine HCl 25 mg 10/03/20 02:10 Promethazine 25 Mg Rect Supp [place] Q6H PRN N/V IF NPO AND NO IV ACCESS Scopolamine 1 each 10/31/20 08:00 10/31/20 08:27 Scopolamine Transdermal Patch 72 Hr TD 1 each Q3D JOSE Administration Senna 8.6 mg 10/03/20 02:10 Sennosides 8.6 Mg Tab PO Q12HR PRN Constipation Simple Syrup 15 ml 10/03/20 16:51 10/19/20 02:08 Simple Syrup 15 Ml FEEDTUBE 15 ml PRN PRN Administration Hypoglycemia Simple Syrup 30 ml 10/03/20 16:51 10/16/20 22:02 Simple Syrup 15 Ml FEEDTUBE 30 ml PRN PRN Administration Hypoglycemia Sodium Bicarbonate 325 mg 10/03/20 16:51 Sodium Bicarbonate 325 Mg Tab FEEDTUBE PRN PRN For Clogged Feeding Tube
[2020-10-31] MEDS ORDERED: ROCURONIUM 50 MG/5 ML INJ IV ONE (14:26)
[2020-10-31] MEDS ORDERED: SODIUM CHLORIDE 0.9% 100 ML ONE (14:26)
--- NOTE | 2020-10-31 14:46 | Operative Report ---
Operative Report Operative Report: Date of surgery: 10/31/2020 Preoperative diagnosis: Vent dependence Postoperative diagnosis: Same as above Procedure: Percutaneous tracheostomy Surgeon: Sapna Landa DO Anesthesia: Geta, local Findings: Good placement of tracheostomy as visualized by fiberoptic bronchoscopy EBL: LESS than 5 cc Specimen: None Complications: None Disposition: Stable to ICU HPI and indication: Patient is a 75-year-old male who has been intubated and cannot be safely weaned from the ventilator. The tracheostomy was requested by the line leader. All risk, benefits, alternatives to the procedure were discussed with the patient's next of kin and consent obtained by Dr. Ferrera. Procedure in detail: The patient was identified in the ICU and brought down to the operating room and positioned in supine position in the hospital bed. Consent was verified on the chart timeout was performed. Anesthesia was administered. A shoulder roll was placed, with the patient's neck mildly hyperextended. The neck was prepped and draped in usual sterile fashion.Dr. Ferrera performed fiberoptic bronchoscopy throughout the entire procedure. The fiberoptic bronchoscope was inserted through the endotracheal tube via the adapter and the trachea examined. The trachea was unremarkable and the 7.5 ET tube was approximately 3 cm from keri at 24 cm at the lip. 1% lidocaine was infiltrated into the skin and subcutaneous tissue approximately 2 fingerbreadths above the sternal notch. A 2 cm incision was made in a horizontal fashion using a 15 blade. Using a hemostat the soft tissues were bluntly dissected until the trachea was encountered. The ET tube was then pulled back slowly to 18 cm. Using the introducer needle, the trachea was entered under direct visualization. The wire was passed down the trachea towards the keri. Introducer needle was then removed. The trachea was then serially dilated, after which a 8 [place] iley tracheostomy tube was inserted. The balloon was visualized via fiberoptic bronchoscopy. The balloon was inflated, patient placed back on ventilator. There was end-tidal CO2 detected and tidal volumes assessed which were satisfactory. The bronchoscope was then placed through the tracheostomy and showed good positioning of the tracheostomy approximately 5 cm above the keri and no bleeding. A drain sponge was placed between the skin and tracheostomy. The tracheostomy was secured to the patient's neck using 2-0 Prolene stitches and a tracheostomy strap. A post op chest x-ray is pending. The patient tolerated the procedure well. All sharps were disposed of appropriately.
--- NOTE | 2020-10-31 14:49 | Operative Report ---
Operative Report Operative Report: Date of surgery: 10/31/2020 Preoperative diagnosis: Vent dependent respiratory failure Postoperative diagnosis: Vent dependent respiratory failure Procedure: PEG tube placement Surgeon: DO Oriana Co-surgeon: Rosey Ferrera MD Anesthesia: Geta, local Findings: PEG tube bumper 2 cm at the skin EBL: Minimal Complications: None Disposition: Stable to PACU Plan indication: Patient is a 75-year-old male who has been intubated in the ICU and unable to be weaned from the ventilator. Tracheostomy and PEG tube was requested by the digital account executive. All risks, benefits, all alternatives to the procedures were discussed with the patient next of kin and consent was obtained by Dr. Ferrera. Seizure in detail: A mouthguard was placed through which a flexible endoscope was passed through the mouth and into the esophagus. The NG tube was visualized along the way. The endoscope was advanced through the esophagus and into the stomach. The stomach had some retained tube feeds present. The stomach was insufflated and transillumination performed. An area of transillumination was visualized in the left upper quadrant, at least 2 fingerbreadths below the costal margin. The skin was then prepped and draped in usual sterile fashion. Local anesthetic was infiltrated to the skin at the intended incision site. A small incision was made in the skin using an 11 blade. An introducer needle/breakaway sheath was inserted directly through this incision into the stomach under direct endoscopic visualization. The needle was removed. The wire was passed and grasped with a snare and the wire pulled along with the endoscope through the mouth. The PEG tube was assembled onto the wire and pulled back through the mouth and down into the stomach. The outer bumper was at 2 cm at the skin. The PEG tube was cut to size and assembled in the usual fashion. A drain sponge was applied between the skin and the PEG tube and the tube secured with tape. I then reinserted the endoscope into the mouth and down into the stomach. The PEG tube inner bumper was seen to lay flush against the gastric mucosa without tension. There is no bleeding. The pylorus was entered and the first portion of the duodenum was unremarkable. The scope was then withdrawn back into the stomach and retroflexed. The NG tube was withdrawn. The stomach was then desufflated and the endoscope withdrawn. The patient tolerated the procedure well. All sharps were disposed of appropriately. He was taken back to the ICU in stable condition.
--- NOTE | 2020-10-31 16:00 | Operative Report ---
Operative Report Operative Report: Date:10/31/2020 Surgeon: Makenna Ferrera MD Pre-op diagnosis: respiratory failure Post-op diagnosis: same as pre-op Procedure:fiberoptic bronchoscopy Anesthesia: GETA Indication: Patient is a 75 M. Patient intubated and sedated therefore unable to provided detail history. The patient has been unable to be weaned from the ventilator and therefore tracheostomy with assistance of fiberoptic bronchoscopy is indicated along with PEG tube placement. All risks were discussed with the family, and consent obtained. Procedure in detail: The patient was identified in the hospital bed in the ICU and brought down to the OR. After anesthesia was induced, the fiberoptic bronchoscope was passed through the endotracheal tube using an adapter. The trachea and keri were visualized, there was a normal appearance of the mucosa and no debris or fluid was seen. At this point, Dr. Landa who performed the tr acheostomy portion of the procedure (please see separate operative note), asked for the endotracheal tube to be withdrawn slowly. The upper trachea was visualized and appeared normal. At this point, Dr. Landa placed the tracheostomy tube under direct visualization by fiberoptic bronchoscopy. Please see separate operative note for more details on Tracheostomy placement. Once the tracheostomy tube was placed, the bronchoscope was withdrawn from the endotracheal tube and placed through the tracheostomy tube. The tracheostomy tube appeared to be in good position approximately 5 cm above the keri. The bronchoscope was then withdrawn. The procedure was terminated and the patient was returned to ICU in stable condition. Complication: none immediate
--- NOTE | 2020-10-31 17:21 | Progress Note ---
<EVERETT THOMASON - Last Filed: 10/31/20 17:22> Assessment and Plan Assessment and plan: This is 74-year-old male with GERD, arthrosclerotic calcification, anemia, heart failure with reduced EF admitted with anemia, acute hypoxic respiratory failure, GI bleed, severe protein calorie malnutrition, acute kidney injury, acute blood loss anemia, leukocytosis, pna, seizure Neuro: Acute metabolic encephalopathy, significant narrowing in bilateral posterior cerebral arteries, left-sided hemiparesis with aphasia, atherosclerotic cerebrovascular disease -Avoid delirium -Patient is not sedated -Intact cough/gag, intermittently follows commands, responsive to tactile stimu li -CTA head/CTA neck completed-> see results -MRI brain completed-> see results, findings suggestive of ventriculomegaly -Thiamine and folate daily -s/p Keppra -Seizure precautions -Neurology consulted, appreciate recommendations -EEG completed which cannot rule out acute seizure with postictal state Cardio: afib, HFrEF (10-15%) -s/p Levophed, vasopressin, epinephrine, dobutamine, vasopressin -Currently on midodrine -MAP goal greater than 65 -Blood pressure monitoring per protocol -PICC 10/16 -Cardiology consulted, appreciate recommendations -no anticoagulation per cards for now given thrombocytopenia and anemia -Amiodarone p.o. restarted today -Echo completed-> see results, EF 25-30% Respiratory: Acute hypoxic respiratory failure -Patient was intubated on 10/15 with 7.50 ETT at 24 at the lips -10/31: Tracheostomy placed -VAP bundle -Current vent settings: Assist control tidal volume 500, rate 30, PEEP 8, 30% FiO2 Patient was placed on a CPAP trial today but became tachypneic and was switched to assist control -CCM following -VAP bundle -Daily CXR and ABG -SBT/SAT when appropriate GI: s/p GIB, oropharyngeal dysphagia, severe protein-calorie malnutrition -Nutrition consult for tube feedings -GI consulted, appreciate recommendations -GI will hold off EGD/PEG given acute clinical worsening with respiratory failure -Past 24 hours net + 1240 -Patient received hemodialysis today with filtration only -PPI with Protonix -BR prn sennakot : Hyponatremia,metabolic acidosis, acute kidney injury secondary to acute tubular necrosis -Nephrology consulted, appreciate recommendations -Strict intake and output -munoz for I&O -s/p Hypertonic saline per nephrology -HD per nephrology -s/p Lasix drip per CCM -Patient with transition to Friday, , Friday hemodialysis per nephrology -Trend BMP Heme: Iron disease/acute blood loss anemia, superfical venous thrombus -Likely secondary to malnutrition -S/p 5 units of PRBC and 2 unit plt -Iron/multivitamin supplements -GI consulted, appreciate recommendations -Hold off EGD/colonoscopy given acute clinical worsening with respiratory failure per GI -Trend CBC, INR and bleeding -no bleeding on exam -DIC panel negative -Bilateral upper and lower extremity Doppler ultrasound shows occlusive torres perficial venous thrombus of left basilic and cephalic vein. -Monitor Endo: s/p Persistent hypoglycemia -tube feedings as tolerated -Accu-Cheks every 4 -Hypoglycemia protocol -Avoid hypoglycemia -10/31 PEG tube placement ID: Pulmonary infiltrate in right lung, Hypothermia -Infectious disease consulted, appreciate recommendations -COVID-19 PCR negative -Antibiotic therapy per ID -Azithromycin 10/03 through 10/09, ceftriaxone 10/03 through 10/09, cefepime 10/17 through 10/22, vancomycin 10/08 through 10/09 -Monitor CBC and temperature curve -Intermittent Joseph hugger use -TSH 2.1 The high probability of a clinically significant, sudden or life threatening deterioration of the [multi] system(s) required my full and direct attention, intervention and personal management. The aggregate critical care time was [60] minutes. This time is in addition to time spent performing reported procedures but includes the following: [x] Data Review and interpretation [x] Patient assessment and monitoring of vital signs [x] Documentation [x] Medication orders and management Disposition Plan: icu Total Time Spent with Patient (Minutes): 60 History Interval history: This is 74-year-old male with GERD who presented with AMS and left-sided weakness on 10/03 after being found incontinent in feces and urine on bed. Patient was only able to answer simple questions to the EMS. Upon presentation to the ED patient was confused. CT head showed cerebral with arthrosclerotic calcification. Work-up in the emergency department revealed anemia and hypoglycemia. Patient admitted to the hospital service for further work-up. 10/03/20: CT of the head no acute finding but showed a cerebral atrophy with suspicious atrophy and atherosclerotic calcification within the distal right middle cerebral artery. Patient also noted with hemoglobin of 5.8, received 1 unit of packed RBC and ordered for tomorrow Neuro is consulted, Covid test is negative We will check stool for occult blood MRI brain ordered we will follow Will hold any oral medicine until cleared by speech or passes the bedside swallow eval Patient noted to have severe hypoglycemic, will place on D10W Follow H&H and BMP Continue current management plan as dictated in the HPI 10/04/20: no acute findings in MRI, pending EEG, s/p 3 units PRBC transfusion. follow speech miguel, JACQUELINE for now, h/h stable, GI consulted - follow recommendation. 10/05/20 Patient with acute encephalopathy, severe anemia s/p PRBC transfusion. GI following. Hgb 9.8 today. Will repeat in am. Left sided weakness. MRI negative for stroke. Neurology following. 10/06/20 Patient with encephalopathy, severe anemia s/p PRBC transfusion. Hgb 9.4 today. Patient has left sided weakness but MRI neg. Patient needs PEG tube. Will talk with family. Hypokalemia. Replace Q6h X 2. Check Mg 10/07/20 Patient with encephalopathy, severe anemia s/p PRBC transfusion. Hgb 9.6 today. Patient has left sided weakness but MRI neg. Patient needs PEG tube. Will talk with family. Hyponatremia of 128. This may be due to D10% he was on prior to NG tube. Stopped 10% Dextrose. Consulted Nephrology 10/08/20 Patient with encephalopathy, severe anemia s/p PRBC transfusion. Hgb 9.6 today. Patient has left sided weakness but MRI neg. Patient needs PEG tube. Hyponatremia worse today 126. This is due to D10% resumed last night because of hypoglycemia. I discussed with Dr. Herrera. Stop 10%Dextrose. Start D5NS Spoke to daughter, Cindy Singh, yesterday and gave update. She wants PEG tube placed. Discussed plan with , GI. He wants to do upper and lower endoscopy to evaluate anemia, before PEG tube 10/09/20 Patient with encephalopathy, severe anemia s/p PRBC transfusion. Hgb 10.3 today. Patient has left sided weakness but MRI neg. Patient needs PEG tube. Hyponatremia still present Na 126 today. This is due to D10% resumed again last night because of hypoglycemia. Nephrology had recommended D5NS but 10% Dextrose restarted overnight because of hypoglycemia. Nurses unable to place NG tube. I discussed with Dr. Otero today and he will do. Spoke to daughter, Cindy Singh, yesterday and gave update. She wants PEG tube placed. Discussed plan with , GI. He wants to do upper and lower endoscopy to evaluate anemia, before PEG tube Today Na still 126. I discussed with Dr. Herrera and he recommended D10NS. I called Pharmacy. They will mix special D10NS drip. Patient had bilateral pneumonia on CXR therefore started iv Antibiotics, blood cultures. yesterday. Consulted ID 10/10/2020. Patient remains encephalopathic with hemoglobin stabilizing yesterday. Recheck H&H. Patient with left-sided weakness but MRI negative. Fluoroscopic NG tube placement completed yesterday. Await GI to perform EGD and colonoscopy. Follow-up hyponatremia with BMP results. Dr. Aldrich Spoke to daughter, Cindy Singh, and gave update. Daughter wants PEG tube placed. Continue IV antibiotics for bilateral pneumonia. ID consulted. Follow-up procalcitonin levels. 10/11/2020. Patient's hemoglobin remained stable today at 9.5. However, patient noted to be hypotensive with systolic blood pressure of 83. Patient received NS 250 cc bolus with improvement of blood pressure systolically to 123. GI plans to perform EGD/colonoscopy tomorrow. Hyponatremia improving. Start IV fluid of normal saline at 75 cc an hour x1 L 10/12/2020. Patient noted to have some gurgling of the upper airway. NG tube was placed to low intermittent suction. Check chest x-ray and KUB to rule out aspiration and/or ileus. Continue to monitor. H/H remained stable. ID stopped antibiotics due to normal procalcitonin. Speech evaluation 10/13/2020. Patient remains encephalopathic. I discussed overall mental status with the daughter yesterday and updated her with plan of care. Neurology reports: CT angio of the head that is a significant narrowing seen in both posterior cere bral arteries - and no signs of large vessel -CT of the head no acute finding but showed a cerebral atrophy with suspicious atrophy and atherosclerotic calcification within the distal right middle cer ebral artery. -MRI brain without any acute findings - EEG completed yesterday remarkable for diffuse slowing 3-4 Hz and with occassional triphasic waves , no epileptiform discharges is noted -- full report to follow -Repeat MRI brain showed no acute finding Keppra was decreased to 250 mg IV twice daily and thiamine was added x3 days. No LP for now due to lack of any inflammatory findings. Repeat EEG per neurology. Sodium level has improved. Serum creatinine has increased to 1.6 today. Avoid nephrotoxic agents and monitor I/O's daily. Salt tabs 2 g 3 times daily per nephrology 10/14/2020. Patient remains encephalopathic. MRI, EEG and CT results noted above. Continue supportive care. Defer to neurology recommendations regarding mental status/encephalopathy. Continue salt tabs per nephrology. Follow-up BMP. Avoid nephrotoxic agents and monitor I/O's daily. Continue NG tube feedings. PEG placement per GI. 10/15/2020. Patient noted to have significant respiratory distress. Patient with tachypnea, some accessory muscle use, labored breathing and coarse breath sounds and sonorous respirations. Dr. Maldonado from the emergency department intubated the patient. Dr. Floyd was consulted and notified. The patient will be transferred to the ICU and continued on mechanical ventilation. Follow-up chest x-ray. 10/16: Patient is having persistent hypoglycemia despite being on D10 23% saline at 100ml/hr. given multiple amps of D50 with minimal response. The patient IV fluids changed to D5W at 125. Repeat BMP in the p.m. 10/17: hypoglycemia better, remains on levophed, epi, neoshynephrine, dobumatine and bicarb gtt this morning. RN is slowly titrating vasopressor as tolerated. Updated daughter Mignon today and relayed new findings including posturing of BUE to pain. 10/18: Patient is being slowly weaned off of vasopressor support by RN. Patient remains on phenyl epinephrine, vasopressin, norepinephrine and amiodarone. Nephrology will resume Lasix. Patient is hyponatremic today however he is on a bicarb drip which we will add today. This evening patient noted to be anemic and have low platelets. Transfuse platelets and PRBC. NGT to suction 10/19: remains on vasopressor support, renal will reassess HD tomorrow. Patient with significant edema. Dr. Gorman spoke to family who wishes for code status to not change. 10/20: Amiodarone stopped by cardiology, patient placed on hypertonic saline by nephrology. Patient is tolerating trickle feedings at this time. Patient strep ordered for diuresis. Patient is being weaned off vasopressors as tolerated. 10/21: Patient remains on vasopressors however vasopressors are being weaned as tolerated, dobutamine drip continues, RN and DELIVERY PROFESSIONAL updated family at bedside today via FaceTime. Patient was started on Lasix drip today. Patient had hypokalemia and hypomagnesemia which were repleted. 10/22: Patient still has hyponatremia, hypokalemia, hypochloremia with slightly improving renal function. Patient remains on Lasix. Still having thrombocytopenia and was transfused with 1 unit platelet today. RN is weaning vasopressors as tolerated. Patient is on minimal vent settings. 10-23: Remains mechanically intubated, on Lasix and dobutamine drip, cardiology following, BETSY with nephrology following. 10/24: Worsening BETSY; likely hemodialysis 10/25: T-max 101.3, tachycardia, atrial fibrillation 10/26: Improving thrombocytopenia 10/27: 1 unit PRBC 10/28: No acute events overnight 10/29: No acute distress, HD 10/30: CPAP trial today, surgery consulted for trach/PEG. Cardiology will restart amiodarone. 10/31: Patient received a trach/PEG with surgery today, patient received hemodialysis and was placed on Levophed briefly for hypotension per nephrology to change to TThS scheduled for HD. Hospitalist Physical - Constitutional Vitals: Temp Pulse Resp BP Pulse Ox 98.8 F 113 H 19 93/61 98 10/31/20 15:00 10/31/20 17:00 10/31/20 16:31 10/31/20 17:00 10/31/20 16:31 General appearance: Present: no acute distress, other (Intubated, responsive to tactile stimuli, intermittently follows commands) - EENT Eyes: Present: PERRL ENT: poor dentition - Neck Neck: Present: normal ROM - Respiratory Respiratory effort: normal Respiratory: bilateral: diminished - Cardiovascular Rhythm: regular Heart Sounds: Present: S1 & S2. Absent: systolic murmur, diastolic murmur - Extremities Extremities: no ischemia, pulses intact, pulses symmetrical, normal temperature, normal color Extremity abnormal: edema Peripheral Pulses: within normal limits - Abdominal General gastrointestinal: soft, non-tender, non-distended, normal bowel sounds - Integumentary Integumentary: Present: warm, dry - Psychiatric Psychiatric: other - Neurologic Neurologic: other - Allied Health Allied health notes reviewed: nursing, RT, social work HEART Score - HEART Score Troponin: Troponin T < 0.010 ng/mL (0.00-0.029) 10/02/20 23:17 Results - Labs CBC & Chem 7: 10/31/20 06:45 10/31/20 06:45 Labs: Laboratory Last Values WBC 9.6 K/mm3 (4.5-11.0) 10/31/20 06:45 RBC 2.96 M/mm3 (3.65-5.03) L 10/31/20 06:45 Hgb 7.5 gm/dl (11.8-15.2) L 10/31/20 06:45 Hct 23.4 % (35.5-45.6) L 10/31/20 06:45 MCV 79 fl (84-94) L 10/31/20 06:45 MCH 25 pg (28-32) L 10/31/20 06:45 MCHC 32 % (32-34) 10/31/20 06:45 RDW 28.9 % (13.2-15.2) H 10/31/20 06:45 Plt Count 389 K/mm3 (140-440) 10/31/20 06:45 Lymph % (Auto) Back End Web Developer 10/10/20 10:58 Yancey % (Auto) 8.3 % (0.0-7.3) H 10/15/20 05:50 Eos % (Auto) 0.3 % (0.0-4.3) 10/15/20 05:50 Baso % (Auto) Back End Web Developer 10/10/20 10:58 Lymph # (Auto) Back End Web Developer 10/10/20 10:58 Yancey # (Auto) 1.3 K/mm3 (0.0-0.8) H 10/15/20 05:50 Eos # (Auto) 0.0 K/mm3 (0.0-0.4) 10/15/20 05:50 Baso # (Auto) 0.1 K/mm3 (0.0-0.1) 10/15/20 05:50 Add Manual Diff Complete 10/23/20 05:35 Total Counted 100 10/23/20 05:35 Seg Neutrophils % Back End Web Developer 10/21/20 Unknown Seg Neuts % (Manual) 83.0 % (40.0-70.0) H 10/23/20 05:35 Band Neutrophils % 5.0 % 10/23/20 05:35 Lymphocytes % (Manual) 9.0 % (13.4-35.0) L 10/23/20 05:35 Reactive Lymphs % (Man) 1.0 % 10/23/20 05:35 Monocytes % (Manual) 1.0 % (0.0-7.3) 10/23/20 05:35 Eosinophils % (Manual) 1.0 % (0.0-4.3) 10/23/20 05:35 Basophils % (Manual) 2.0 % (0.0-1.8) H 10/10/20 10:58 Metamyelocytes % 11.0 % 10/17/20 04:49 Myelocytes % 7.0 % 10/17/20 04:49 Nucleated RBC % 3.0 % (0.0-0.9) H 10/23/20 05:35 Seg Neutrophils # 13.2 K/mm3 (1.8-7.7) H 10/15/20 05:50 Seg Neutrophils # Man 6.1 K/mm3 (1.8-7.7) 10/23/20 05:35 Band Neutrophils # 0.4 K/mm3 10/23/20 05:35 Lymphocytes # (Manual) 0.7 K/mm3 (1.2-5.4) L 10/23/20 05:35 Abs React Lymphs (Man) 0.1 K/mm3 10/23/20 05:35 Monocytes # (Manual) 0.1 K/mm3 (0.0-0.8) 10/23/20 05:35 Eosinophils # (Manual) 0.1 K/mm3 (0.0-0.4) 10/23/20 05:35 Basophils # (Manual) 0.0 K/mm3 (0.0-0.1) 10/23/20 05:35 Metamyelocytes # 0.0 K/mm3 10/23/20 05:35 Myelocytes # 0.0 K/mm3 10/23/20 05:35 Promyelocytes # 0.0 K/mm3 10/23/20 05:35 Blast Cells # 0.0 K/mm3 10/23/20 05:35 WBC Morphology Not Reportable 10/23/20 05:35 Hypersegmented Neuts Not Reportable 10/23/20 05:35 Hyposegmented Neuts Not Reportable 10/23/20 05:35 Hypogranular Neuts Not Reportable 10/23/20 05:35 Smudge Cells Not Reportable 10/23/20 05:35 Toxic Granulation 1+ 10/23/20 05:35 Toxic Vacuolation 1+ 10/23/20 05:35 Dohle Bodies 1+ 10/23/20 05:35 Pelger-Huet Anomaly Not Reportable 10/23/20 05:35 Andrés Rods Not Reportable 10/23/20 05:35 Platelet Estimate Consistent w auto 10/23/20 05:35 Clumped Platelets Not Reportable 10/23/20 05:35 Plt Clumps, EDTA Not Reportable 10/23/20 05:35 Large Platelets Not Reportable 10/23/20 05:35 Giant Platelets Not Reportable 10/23/20 05:35 Platelet Satelliting Not Reportable 10/23/20 05:35 Plt Morphology Comment Not Reportable 10/23/20 05:35 RBC Morphology Not Reportable 10/23/20 05:35 Dimorphic RBCs Not Reportable 10/23/20 05:35 Polychromasia 1+ 10/23/20 05:35 Hypochromasia 2+ 10/23/20 05:35 Poikilocytosis 2+ 10/23/20 05:35 Anisocytosis 3+ 10/23/20 05:35 Microcytosis Not Reportable 10/23/20 05:35 Macrocytosis Not Reportable 10/23/20 05:35 Spherocytes 1+ 10/23/20 05:35 Pappenheimer Bodies Not Reportable 10/23/20 05:35 Sickle Cells Not Reportable 10/23/20 05:35 Target Cells 1+ 10/23/20 05:35 Tear Drop Cells Not Reportable 10/23/20 05:35 Ovalocytes Not Reportable 10/23/20 05:35 Helmet Cells Not Reportable 10/23/20 05:35 [place] Bodies Not Reportable 10/23/20 05:35 [place]on Rings Not Reportable 10/23/20 05:35 Norbert Cells Not Reportable 10/23/20 05:35 Bite Cells Not Reportable 10/23/20 05:35 Crenated Cell Not Reportable 10/23/20 05:35 Elliptocytes Not Reportable 10/23/20 05:35 Acanthocytes (Spur) 1+ 10/23/20 05:35 Rouleaux Not Reportable 10/23/20 05:35 Hemoglobin C Crystals Not Reportable 10/23/20 05:35 Schistocytes Not Reportable 10/23/20 05:35 Malaria parasites Not Reportable 10/23/20 05:35 Dereck Bodies Not Reportable 10/23/20 05:35 Hem Pathologist Commnt No 10/23/20 05:35 PT 20.4 Sec. (12.2-14.9) H 10/24/20 05:27 INR 1.70 (0.87-1.13) H 10/24/20 05:27 APTT 61.4 Sec. (24.2-36.6) H* 10/21/20 Unknown Thrombin Time 17.8 Sec. (15.1-19.6) 10/02/20 23:17 Fibrinogen 482 mg/dl (211-480) H 10/21/20 Unknown D-Dimer 1992.93 ng/mlDDU (0-234) H 10/21/20 Unknown ABG pH 7.468 (7.320-7.450) H 10/31/20 04:12 POC ABG pCO2 41.2 mmHg (32.0-48.0) 10/31/20 04:12 POC ABG pO2 50.9 mmHg (83-108) L 10/31/20 04:12 POC ABG HCO3 29.2 10/31/20 04:12 ABG O2 Saturation 85.9 (0-100) 10/31/20 04:12 POC ABG Base Excess 5.0 10/31/20 04:12 ABG Hemoglobin 8.2 (12.0-17.5) L 10/31/20 04:12 ABG Oxyhemoglobin 84.7 (94-98) L 10/31/20 04:12 ABG Methemoglobin 0.3 (0.0-1.5) 10/31/20 04:12 ABG Sodium 130.7 mmol/L (136.0-145.0) L 10/31/20 04:12 ABG Potassium 3.8 mmol/L (3.40-4.50) 10/31/20 04:12 ABG Chloride 97.0 mmol/L (98-107) L 10/31/20 04:12 ABG Glucose 99 mg/dL (65-95) H 10/31/20 04:12 Carboxyhemoglobin 1.1 (0.5-1.5) 10/31/20 04:12 FiO2 % 30.0 10/31/20 04:12 Sodium 137 mmol/L (137-145) 10/31/20 06:45 Potassium 4.1 mmol/L (3.6-5.0) 10/31/20 06:45 Chloride 98.5 mmol/L (98-107) 10/31/20 06:45 Carbon Dioxide 31 mmol/L (22-30) H 10/31/20 06:45 Anion Gap 12 mmol/L 10/31/20 06:45 BUN 41 mg/dL (9-20) H 10/31/20 06:45 Creatinine 2.6 mg/dL (0.8-1.3) H 10/31/20 06:45 Estimated GFR 29 ml/min 10/31/20 06:45 BUN/Creatinine Ratio 16 % 10/31/20 06:45 Glucose 96 mg/dL (75-100) 10/31/20 06:45 POC Glucose 132 mg/dL (70-105) H 10/31/20 17:04 Hemoglobin A1c 5.2 % (4-6) 10/03/20 05:57 Osmolality 267 Mosm/kg 10/07/20 13:54 Lactic Acid 1.50 mmol/L (0.7-2.0) 10/03/20 04:43 Calcium 8.6 mg/dL (8.4-10.2) 10/31/20 06:45 Phosphorus 2.80 mg/dL (2.5-4.5) 10/23/20 05:35 Magnesium 2.10 mg/dL (1.7-2.3) 10/23/20 05:35 Iron 42 ug/dL (49-181) L 10/03/20 05:57 TIBC 305 mcg/dL (250-450) 10/03/20 05:57 Total Bilirubin 0.80 mg/dL (0.1-1.2) 10/24/20 05:27 Direct Bilirubin 0.9 mg/dL (0-0.2) H 10/19/20 04:51 Indirect Bilirubin 0.6 mg/dL 10/19/20 04:51 AST 54 units/L (5-40) H 10/24/20 05:27 ALT 54 units/L (7-56) 10/24/20 05:27 Alkaline Phosphatase 316 units/L (35-129) H 10/24/20 05:27 Ammonia 36.0 umol/L (25-60) 10/24/20 05:27 Total Creatine Kinase 88 units/L (55-170) 10/02/20 23:17 CK-MB (CK-2) 7.5 ng/mL (0.0-4.0) H 10/02/20 23:17 CK-MB (CK-2) Rel Index 8.5 (0-4) H 10/02/20 23:17 Troponin T < 0.010 ng/mL (0.00-0.029) 10/02/20 23:17 Total Protein 5.1 g/dL (6.3-8.2) L 10/24/20 05:27 Albumin 1.7 g/dL (3.9-5) L 10/24/20 05:27 Albumin/Globulin Ratio 0.5 % 10/24/20 05:27 Lipase 17 units/L (13-60) 10/16/20 22:58 Procalcitonin 0.10 ng/mL (<0.15) 10/10/20 10:58 TSH 2.130 mlU/mL (0.270-4.200) 10/07/20 13:54 Total Cortisol 17.4 mcg/dL () 10/09/20 02:46 Arterial Blood Glucose 99 mg/dL (65-95) H 10/31/20 04:12 Arterial Blood Ionized Calcium 4.6 mg/dL (4.6-5.3) 10/31/20 04:12 Urine Eosinophils None seen (None Seen) 10/14/20 Unknown Urine Osmolality 223 Mosm/kg 10/07/20 Unknown Urine Creatinine 144.2 mg/dL (0.1-20.0) H 10/14/20 Unknown Protein/Creatinin Ratio 0.67 10/14/20 Unknown Urine Sodium 10 mmol/L 10/14/20 Unknown Urine Total Protein 97 mg/dL (5-11.8) H 10/14/20 Unknown Salicylates < 0.3 mg/dL (2.8-20.0) L 10/02/20 23:17 Acetaminophen 5.0 ug/mL (10.0-30.0) L 10/02/20 23:17 Plasma/Serum Alcohol < 0.01 % (0-0.07) 10/02/20 23:17 Coronavirus (PCR) Negative (Negative) 10/14/20 08:00 Hepatitis A IgM Ab Non-reactive (NonReactive) 10/24/20 15:28 Hep Bs Antigen Nonreactive (Negative) 10/24/20 15:28 Hep B Core IgM Ab Non-reactive (NonReactive) 10/24/20 15:28 Hepatitis C Antibody Non-reactive (NonReactive) 10/24/20 15:28 Blood Type O POSITIVE 10/27/20 12:50 Antibody Screen Negative 10/27/20 12:50 Crossmatch See Detail 10/27/20 12:50 Munoz/IV: Voiding Method Indwelling Catheter Active Medications - Current Medications Current Medications: Generic Name Dose Route Start Last Admin Trade Name Freq PRN Reason Stop Dose Admin Acetaminophen 650 mg 10/03/20 02:10 10/06/20 15:28 Acetaminophen 325 Mg Tab PO 650 mg Q4H PRN Administration Pain MILD(1-3)/Fever >100.5/ROMERO Al Hydrox/Mg Hydrox/Simethicone 30 ml 10/03/20 02:10 Alum-Mag Hydroxide-Simethicone [id number]/5ml Oral Liqd 30 Ml PO Q4H PRN Indigestion Amiodarone HCl 200 mg 10/30/20 10:00 10/31/20 09:20 Amiodarone 200 Mg Tab PO 200 mg BID JOSE Administration Lipase/Protease/Amylase 1 each 10/03/20 16:51 Lipase 10,500/Protease 25,000/Amylase 43,750 (Units) Dr Reis FEEDTUBE PRN PRN For Clogged Feeding Tube Dextrose 50 ml 10/16/20 12:42 10/21/20 17:39 Dextrose 50% In Water (25gm) 50 Ml Syringe IV 50 ml Q30MIN PRN Administration Hypoglycemia Protocol Fentanyl 50 mcg 10/22/20 10:00 10/28/20 08:56 Fentanyl 100 Mcg/2 Ml Inj IV 50 mcg Q4HR PRN Administration Pain , Severe (7-10) Ferrous Sulfate 308 mg 10/16/20 10:00 10/31/20 09:21 Ferrous Sulfate 308 Mg (62mg Elemental Iron) / 7 Ml Elixir FEEDTUBE 308 mg DAILY JOSE Administration Folic Acid 1 mg 10/03/20 10:00 10/31/20 09:19 Folic Acid 1 Mg Tab PO 1 mg QDAY JOSE Administration Glycopyrrolate 2 mg 10/29/20 20:00 10/31/20 08:22 Glycopyrrolate 2 Mg Tab PO 2 mg TID JOSE Administration Heparin Sodium (Porcine) 5,000 unit 10/30/20 11:00 10/31/20 09:19 Heparin 5,000 Unit/1 Ml Vial SUB-Q 5,000 unit Q12HR JOSE Administration NORepinephrine/NS 8 MG-250 ML 8 mg in 250 mls @ 3.75 mls/hr 10/16/20 19:00 10/31/20 16:15 Norepinephrine/Ns 8 Mg-250 Ml (Double Conc) IV 3.2 mcg/min TITRATE JOSE 6 mls/hr Titration Protocol 2 MCG/MIN Levetiracetam 250 mg 10/30/20 22:00 10/31/20 09:19 Levetiracetam 500 Mg/5 Ml Oral Liqd PO 250 mg BID JOSE Administration Magnesium Hydroxide 30 ml 10/03/20 02:10 Magnesium Hydroxide (Mom) Oral Liqd Udc PO Q4H PRN Constipation Midodrine 10 mg 10/24/20 18:00 10/31/20 09:19 Midodrine 5 Mg Tab PO 10 mg Q8H JOSE Administration Pantoprazole Sodium 40 mg 10/04/20 15:00 10/31/20 09:19 Pantoprazole 40 Mg Inj IV 40 mg QDAY JOSE Administration Promethazine HCl 25 mg 10/03/20 02:10 Promethazine 25 Mg Rect Supp [place] Q6H PRN N/V IF NPO AND NO IV ACCESS Scopolamine 1 each 10/31/20 08:00 09/21/21 08:27 Scopolamine Transdermal Patch 72 Hr TD 1 each Q3D JOSE Administration Senna 8.6 mg 10/03/20 02:10 Sennosides 8.6 Mg Tab PO Q12HR PRN Constipation Simple Syrup 15 ml 10/03/20 16:51 10/19/20 02:08 Simple Syrup 15 Ml FEEDTUBE 15 ml PRN PRN Administration Hypoglycemia Simple Syrup 30 ml 10/03/20 16:51 10/16/20 22:02 Simple Syrup 15 Ml FEEDTUBE 30 ml PRN PRN Administration Hypoglycemia Sodium Bicarbonate 325 mg 10/03/20 16:51 Sodium Bicarbonate 325 Mg Tab FEEDTUBE PRN PRN For Clogged Feeding Tube Nutrition/Malnutrition Assess - Dietary Evaluation Nutrition/Malnutrition Findings: Nutrition Notes Start: 10/03/20 08:51 Freq: Status: Active Protocol: Document 10/30/20 10:57 (Rec: 10/30/20 11:05 [id number]) Nutrition Notes Initial or Follow up Reassessment Current Diagnosis Diabetes Other Pertinent Diagnosis AMS, hypothermia, pneu, anemia , atherosclerotic cerebrovascular disease Current Diet Nepro 1.8 at 40 ml/hr Labs/Tests Na 136 BUN 48 Cr 3.2 Pertinent Medications Reviewed Height 5 ft 10 in Weight 92.1 kg [place] Body Weight (kg) 75.45 BMI 29.1 Weight Status Overweight Subjective/Other Information Pt remains on TF at goal rate and tolerating. Pt continues to get HD and is on vent. Percent of energy/protein needs met: 94%/76% Burn Absent Trauma Absent Difficulty In Swallowing Current % PO Negligible Minimum of two criteria No Fluid Accumulation Moderate to Severe (severe) #1 Nutrition Diagnosis Swallowing difficulty Diagnosis Progress(for reassessment Continues documentation) Is patient on ventilator? No Is Patient Ambulatory and/or Out of Bed No REE-([facility]-confined to bed) 1987.988 Kcal/Kg value to use for calculation 20 Approximate Energy Requirements Using 1842 kcal/Kg Calculation Used for Recommendations Kcal/kg Additional Notes Protein: (1.2-2g/kg) 102-170g Fluid: 1 ml/kcal Nutrition Intervention Change Diet Order: continue Nutrition Support: Nepro at 40ml/hour. For hyponatremia flush 50 ml q4h, once resolved resume flush at 170 ml q4h Kcal 1,728 Protein (gm) 78 Fluid (mL) 698 Goal #1 Meet at least 75% of protein and energy needs via TF Follow-Up By: 11/03/20 Additional Comments F/u: stable TF <TJ GORMAN - Last Filed: 11/01/20 07:20> Assessment and Plan Assessment and plan: I saw and evaluated the patient. Discussed with the nurse practitioner and agree with their findings and plan as documented in this note. Hospitalist Physical - Constitutional Vitals: Temp Pulse Resp BP Pulse Ox 98.1 F 134 H 26 H 91/55 90 11/01/20 07:18 11/01/20 04:00 10/31/20 22:05 11/01/20 04:00 11/01/20 04:00 HEART Score - HEART Score Troponin: Troponin T < 0.010 ng/mL (0.00-0.029) 10/02/20 23:17 Results - Labs CBC & Chem 7: 11/01/20 Unknown 11/01/20 Unknown Labs: Laboratory Last Values WBC 10.4 K/mm3 (4.5-11.0) 11/01/20 Unknown RBC 2.98 M/mm3 (3.65-5.03) L 11/01/20 Unknown Hgb 7.6 gm/dl (11.8-15.2) L 11/01/20 Unknown Hct 23.5 % (35.5-45.6) L 11/01/20 Unknown MCV 79 fl (84-94) L 11/01/20 Unknown MCH 26 pg (28-32) L 11/01/20 Unknown MCHC 32 % (32-34) 11/01/20 Unknown RDW 28.4 % (13.2-15.2) H 11/01/20 Unknown Plt Count 427 K/mm3 (140-440) 11/01/20 Unknown Lymph % (Auto) Back End Web Developer 10/10/20 10:58 Yancey % (Auto) 8.3 % (0.0-7.3) H 10/15/20 05:50 Eos % (Auto) 0.3 % (0.0-4.3) 10/15/20 05:50 Baso % (Auto) Back End Web Developer 10/10/20 10:58 Lymph # (Auto) Back End Web Developer 10/10/20 10:58 Yancey # (Auto) 1.3 K/mm3 (0.0-0.8) H 10/15/20 05:50 Eos # (Auto) 0.0 K/mm3 (0.0-0.4) 10/15/20 05:50 Baso # (Auto) 0.1 K/mm3 (0.0-0.1) 10/15/20 05:50 Add Manual Diff Complete 10/23/20 05:35 Total Counted 100 10/23/20 05:35 Seg Neutrophils % Back End Web Developer 10/21/20 Unknown Seg Neuts % (Manual) 83.0 % (40.0-70.0) H 10/23/20 05:35 Band Neutrophils % 5.0 % 10/23/20 05:35 Lymphocytes % (Manual) 9.0 % (13.4-35.0) L 10/23/20 05:35 Reactive Lymphs % (Man) 1.0 % 10/23/20 05:35 Monocytes % (Manual) 1.0 % (0.0-7.3) 10/23/20 05:35 Eosinophils % (Manual) 1.0 % (0.0-4.3) 10/23/20 05:35 Basophils % (Manual) 2.0 % (0.0-1.8) H 10/10/20 10:58 Metamyelocytes % 11.0 % 10/17/20 04:49 Myelocytes % 7.0 % 10/17/20 04:49 Nucleated RBC % 3.0 % (0.0-0.9) H 10/23/20 05:35 Seg Neutrophils # 13.2 K/mm3 (1.8-7.7) H 10/15/20 05:50 Seg Neutrophils # Man 6.1 K/mm3 (1.8-7.7) 10/23/20 05:35 Band Neutrophils # 0.4 K/mm3 10/23/20 05:35 Lymphocytes # (Manual) 0.7 K/mm3 (1.2-5.4) L 10/23/20 05:35 Abs React Lymphs (Man) 0.1 K/mm3 10/23/20 05:35 Monocytes # (Manual) 0.1 K/mm3 (0.0-0.8) 10/23/20 05:35 Eosinophils # (Manual) 0.1 K/mm3 (0.0-0.4) 10/23/20 05:35 Basophils # (Manual) 0.0 K/mm3 (0.0-0.1) 10/23/20 05:35 Metamyelocytes # 0.0 K/mm3 10/23/20 05:35 Myelocytes # 0.0 K/mm3 10/23/20 05:35 Promyelocytes # 0.0 K/mm3 10/23/20 05:35 Blast Cells # 0.0 K/mm3 10/23/20 05:35 WBC Morphology Not Reportable 10/23/20 05:35 Hypersegmented Neuts Not Reportable 10/23/20 05:35 Hyposegmented Neuts Not Reportable 10/23/20 05:35 Hypogranular Neuts Not Reportable 10/23/20 05:35 Smudge Cells Not Reportable 10/23/20 05:35 Toxic Granulation 1+ 10/23/20 05:35 Toxic Vacuolation 1+ 10/23/20 05:35 Dohle Bodies 1+ 10/23/20 05:35 Pelger-Huet Anomaly Not Reportable 10/23/20 05:35 Andrés Rods Not Reportable 10/23/20 05:35 Platelet Estimate Consistent w auto 10/23/20 05:35 Clumped Platelets Not Reportable 10/23/20 05:35 Plt Clumps, EDTA Not Reportable 10/23/20 05:35 Large Platelets Not Reportable 10/23/20 05:35 Giant Platelets Not Reportable 10/23/20 05:35 Platelet Satelliting Not Reportable 10/23/20 05:35 Plt Morphology Comment Not Reportable 10/23/20 05:35 RBC Morphology Not Reportable 10/23/20 05:35 Dimorphic RBCs Not Reportable 10/23/20 05:35 Polychromasia 1+ 10/23/20 05:35 Hypochromasia 2+ 10/23/20 05:35 Poikilocytosis 2+ 10/23/20 05:35 Anisocytosis 3+ 10/23/20 05:35 Microcytosis Not Reportable 10/23/20 05:35 Macrocytosis Not Reportable 10/23/20 05:35 Spherocytes 1+ 10/23/20 05:35 Pappenheimer Bodies Not Reportable 10/23/20 05:35 Sickle Cells Not Reportable 10/23/20 05:35 Target Cells 1+ 10/23/20 05:35 Tear Drop Cells Not Reportable 10/23/20 05:35 Ovalocytes Not Reportable 10/23/20 05:35 Helmet Cells Not Reportable 10/23/20 05:35 [place] Bodies Not Reportable 10/23/20 05:35 [place] Rings Not Reportable 10/23/20 05:35 [place] Cells Not Reportable 10/23/20 05:35 Bite Cells Not Reportable 10/23/20 05:35 Crenated Cell Not Reportable 10/23/20 05:35 Elliptocytes Not Reportable 10/23/20 05:35 Acanthocytes (Spur) 1+ 10/23/20 05:35 Rouleaux Not Reportable 10/23/20 05:35 Hemoglobin C Crystals Not Reportable 10/23/20 05:35 Schistocytes Not Reportable 10/23/20 05:35 Malaria parasites Not Reportable 10/23/20 05:35 Dereck Bodies Not Reportable 10/23/20 05:35 Hem Pathologist Commnt No 10/23/20 05:35 PT 20.4 Sec. (12.2-14.9) H 10/24/20 05:27 INR 1.70 (0.87-1.13) H 10/24/20 05:27 APTT 61.4 Sec. (24.2-36.6) H* 10/21/20 Unknown Thrombin Time 17.8 Sec. (15.1-19.6) 10/02/20 23:17 Fibrinogen 482 mg/dl (211-480) H 10/21/20 Unknown D-Dimer 1992.93 ng/mlDDU (0-234) H 10/21/20 Unknown ABG pH 7.468 (7.320-7.450) H 10/31/20 04:12 POC ABG pCO2 41.2 mmHg (32.0-48.0) 10/31/20 04:12 POC ABG pO2 50.9 mmHg (83-108) L 10/31/20 04:12 POC ABG HCO3 29.2 10/31/20 04:12 ABG O2 Saturation 85.9 (0-100) 10/31/20 04:12 POC ABG Base Excess 5.0 10/31/20 04:12 ABG Hemoglobin 8.2 (12.0-17.5) L 10/31/20 04:12 ABG Oxyhemoglobin 84.7 (94-98) L 10/31/20 04:12 ABG Methemoglobin 0.3 (0.0-1.5) 10/31/20 04:12 ABG Sodium 130.7 mmol/L (136.0-145.0) L 10/31/20 04:12 ABG Potassium 3.8 mmol/L (3.40-4.50) 10/31/20 04:12 ABG Chloride 97.0 mmol/L (98-107) L 10/31/20 04:12 ABG Glucose 99 mg/dL (65-95) H 10/31/20 04:12 Carboxyhemoglobin 1.1 (0.5-1.5) 10/31/20 04:12 FiO2 % 30.0 10/31/20 04:12 Sodium 134 mmol/L (137-145) L 11/01/20 Unknown Potassium 4.0 mmol/L (3.6-5.0) 11/01/20 Unknown Chloride 96.1 mmol/L (98-107) L 11/01/20 Unknown Carbon Dioxide 29 mmol/L (22-30) 11/01/20 Unknown Anion Gap 13 mmol/L 11/01/20 Unknown BUN 26 mg/dL (9-20) H 11/01/20 Unknown Creatinine 2.2 mg/dL (0.8-1.3) H 11/01/20 Unknown Estimated GFR 35 ml/min 11/01/20 Unknown BUN/Creatinine Ratio 12 % 11/01/20 Unknown Glucose 46 mg/dL (75-100) L 11/01/20 Unknown POC Glucose 107 mg/dL (70-105) H 11/01/20 05:42 Hemoglobin A1c 5.2 % (4-6) 10/03/20 05:57 Osmolality 267 Mosm/kg 10/07/20 13:54 Lactic Acid 1.50 mmol/L (0.7-2.0) 10/03/20 04:43 Calcium 8.1 mg/dL (8.4-10.2) L 11/01/20 Unknown Phosphorus 2.80 mg/dL (2.5-4.5) 10/23/20 05:35 Magnesium 2.10 mg/dL (1.7-2.3) 10/23/20 05:35 Iron 42 ug/dL (49-181) L 10/03/20 05:57 TIBC 305 mcg/dL (250-450) 10/03/20 05:57 Total Bilirubin 0.80 mg/dL (0.1-1.2) 10/24/20 05:27 Direct Bilirubin 0.9 mg/dL (0-0.2) H 10/19/20 04:51 Indirect Bilirubin 0.6 mg/dL 10/19/20 04:51 AST 54 units/L (5-40) H 10/24/20 05:27 ALT 54 units/L (7-56) 10/24/20 05:27 Alkaline Phosphatase 316 units/L (35-129) H 10/24/20 05:27 Ammonia 36.0 umol/L (25-60) 10/24/20 05:27 Total Creatine Kinase 88 units/L (55-170) 10/02/20 23:17 CK-MB (CK-2) 7.5 ng/mL (0.0-4.0) H 10/02/20 23:17 CK-MB (CK-2) Rel Index 8.5 (0-4) H 10/02/20 23:17 Troponin T < 0.010 ng/mL (0.00-0.029) 10/02/20 23:17 Total Protein 5.1 g/dL (6.3-8.2) L 10/24/20 05:27 Albumin 1.7 g/dL (3.9-5) L 10/24/20 05:27 Albumin/Globulin Ratio 0.5 % 10/24/20 05:27 Lipase 17 units/L (13-60) 10/16/20 22:58 Procalcitonin 0.10 ng/mL (<0.15) 10/10/20 10:58 TSH 2.130 mlU/mL (0.270-4.200) 10/07/20 13:54 Total Cortisol 17.4 mcg/dL () 10/09/20 02:46 Arterial Blood Glucose 99 mg/dL (65-95) H 10/31/20 04:12 Arterial Blood Ionized Calcium 4.6 mg/dL (4.6-5.3) 10/31/20 04:12 Urine Eosinophils None seen (None Seen) 10/14/20 Unknown Urine Osmolality 223 Mosm/kg 10/07/20 Unknown Urine Creatinine 144.2 mg/dL (0.1-20.0) H 10/14/20 Unknown Protein/Creatinin Ratio 0.67 10/14/20 Unknown Urine Sodium 10 mmol/L 10/14/20 Unknown Urine Total Protein 97 mg/dL (5-11.8) H 10/14/20 Unknown Salicylates < 0.3 mg/dL (2.8-20.0) L 10/02/20 23:17 Acetaminophen 5.0 ug/mL (10.0-30.0) L 10/02/20 23:17 Plasma/Serum Alcohol < 0.01 % (0-0.07) 10/02/20 23:17 Coronavirus (PCR) Negative (Negative) 10/14/20 08:00 Hepatitis A IgM Ab Non-reactive (NonReactive) 10/24/20 15:28 Hep Bs Antigen Nonreactive (Negative) 10/24/20 15:28 Hep B Core IgM Ab Non-reactive (NonReactive) 10/24/20 15:28 Hepatitis C Antibody Non-reactive (NonReactive) 10/24/20 15:28 Blood Type O POSITIVE 10/27/20 12:50 Antibody Screen Negative 10/27/20 12:50 Crossmatch See Detail 10/27/20 12:50 Munoz/IV: Voiding Method Indwelling Catheter Active Medications - Current Medications Current Medications: Generic Name Dose Route Start Last Admin Trade Name Freq PRN Reason Stop Dose Admin Acetaminophen 650 mg 10/03/20 02:10 10/06/20 15:28 Acetaminophen 325 Mg Tab PO 650 mg Q4H PRN Administration Pain MILD(1-3)/Fever >100.5/ROMERO Al Hydrox/Mg Hydrox/Simethicone 30 ml 10/03/20 02:10 Alum-Mag Hydroxide-Simethicone 974-819-99zm/5ml Oral Liqd 30 Ml PO Q4H PRN Indigestion Amiodarone HCl 200 mg 10/30/20 10:00 10/31/20 21:59 Amiodarone 200 Mg Tab PO 200 mg BID JOSE Administration Lipase/Protease/Amylase 1 each 10/03/20 16:51 Lipase 10,500/Protease 25,000/Amylase 43,750 (Units) Dr Reis FEEDTUBE PRN PRN For Clogged Feeding Tube Dextrose 50 ml 10/16/20 12:42 11/01/20 05:26 Dextrose 50% In Water (25gm) 50 Ml Syringe IV 50 ml Q30MIN PRN Administration Hypoglycemia Protocol Fentanyl 50 mcg 10/22/20 10:00 10/31/20 21:05 Fentanyl 100 Mcg/2 Ml Inj IV 50 mcg Q4HR PRN Administration Pain , Severe (7-10) Ferrous Sulfate 308 mg 10/16/20 10:00 10/31/20 09:21 Ferrous Sulfate 308 Mg (62mg Elemental Iron) / 7 Ml Elixir FEEDTUBE 308 mg DAILY JOSE Administration Folic Acid 1 mg 10/03/20 10:00 10/31/20 09:19 Folic Acid 1 Mg Tab PO 1 mg QDAY JOSE Administration Glycopyrrolate 2 mg 10/29/20 20:00 10/31/20 20:14 Glycopyrrolate 2 Mg Tab PO 2 mg TID JOSE Administration Heparin Sodium (Porcine) 5,000 unit 10/30/20 11:00 10/31/20 22:00 Heparin 5,000 Unit/1 Ml Vial SUB-Q 5,000 unit Q12HR JOSE Administration NORepinephrine/NS 8 MG-250 ML 8 mg in 250 mls @ 3.75 mls/hr 10/16/20 19:00 11/01/20 05:26 Norepinephrine/Ns 8 Mg-250 Ml (Double Conc) IV 2 mcg/min TITRATE JOSE 3.75 mls/hr Titration Protocol 2 MCG/MIN Levetiracetam 250 mg 10/30/20 22:00 10/31/20 21:59 Levetiracetam 500 Mg/5 Ml Oral Liqd PO 250 mg BID JOSE Administration Magnesium Hydroxide 30 ml 10/03/20 02:10 Magnesium Hydroxide (Mom) Oral Liqd Udc PO Q4H PRN Constipation Midodrine 10 mg 10/24/20 18:00 11/01/20 02:31 Midodrine 5 Mg Tab PO 10 mg Q8H JOSE Administration Pantoprazole Sodium 40 mg 10/04/20 15:00 10/31/20 09:19 Pantoprazole 40 Mg Inj IV 40 mg QDAY JOSE Administration Promethazine HCl 25 mg 10/03/20 02:10 Promethazine 25 Mg Rect Supp [place] Q6H PRN N/V IF NPO AND NO IV ACCESS Scopolamine 1 each 10/31/20 08:00 10/31/20 08:27 Scopolamine Transdermal Patch 72 Hr TD 1 each Q3D JOSE Administration Senna 8.6 mg 10/03/20 02:10 Sennosides 8.6 Mg Tab PO Q12HR PRN Constipation Simple Syrup 15 ml 10/03/20 16:51 10/19/20 02:08 Simple Syrup 15 Ml FEEDTUBE 15 ml PRN PRN Administration Hypoglycemia Simple Syrup 30 ml 10/03/20 16:51 10/16/20 22:02 Simple Syrup 15 Ml FEEDTUBE 30 ml PRN PRN Administration Hypoglycemia Sodium Bicarbonate 325 mg 10/03/20 16:51 Sodium Bicarbonate 325 Mg Tab FEEDTUBE PRN PRN For Clogged Feeding Tube Nutrition/Malnutrition Assess - Dietary Evaluation Nutrition/Malnutrition Findings: Nutrition Notes Start: 10/03/20 08:51 Freq: Status: Active Protocol: Document 10/30/20 10:57 (Rec: 10/30/20 11:05 [id number]) Nutrition Notes Initial or Follow up Reassessment Current Diagnosis Diabetes Other Pertinent Diagnosis AMS, hypothermia, pneu, anemia , atherosclerotic cerebrovascular disease Current Diet Nepro 1.8 at 40 ml/hr Labs/Tests Na 136 BUN 48 Cr 3.2 Pertinent Medications Reviewed Height 5 ft 10 in Weight 92.1 kg [place] Body Weight (kg) 75.45 BMI 29.1 Weight Status Overweight Subjective/Other Information Pt remains on TF at goal rate and tolerating. Pt continues to get HD and is on vent. Percent of energy/protein needs met: 94%/76% Burn Absent Trauma Absent Difficulty In Swallowing Current % PO Negligible Minimum of two criteria No Fluid Accumulation Moderate to Severe (severe) #1 Nutrition Diagnosis Swallowing difficulty Diagnosis Progress(for reassessment Continues documentation) Is patient on ventilator? No Is Patient Ambulatory and/or Out of Bed No REE-([facility]-confined to bed) 1987.988 Kcal/Kg value to use for calculation 20 Approximate Energy Requirements Using 1842 kcal/Kg Calculation Used for Recommendations Kcal/kg Additional Notes Protein: (1.2-2g/kg) 102-170g Fluid: 1 ml/kcal Nutrition Intervention Change Diet Order: continue Nutrition Support: Nepro at 40ml/hour. For hyponatremia flush 50 ml q4h, once resolved resume flush at 170 ml q4h Kcal 1,728 Protein (gm) 78 Fluid (mL) 698 Goal #1 Meet at least 75% of protein and energy needs via TF Follow-Up By: 11/03/20 Additional Comments F/u: stable TF
--- NOTE | 2020-10-31 17:56 | Post Anesthesia Evaluation ---
- Post Anesthesia Evaluation Patient Participated: No Airway Patent: Yes Stable Respiratory Function: Yes Nausea/Vomiting: No Temp > 96.8F: Yes Pain Manageable: Yes Adequeate Hydration: Yes Anesthesia Complications: No Block Receding Appropriately: Not Applicable Patient on Ventilator: Yes
--- NOTE | 2020-10-31 19:35 | XRay Report ---
CHEST 1 VIEW 10/31/2020 6:19 PM INDICATION / CLINICAL INFORMATION: s/p tracheostomy. COMPARISON: 10/31/2020 FINDINGS: SUPPORT DEVICES: Status post tracheostomy. The tip of the tracheostomy tube is approximately 7.3 cm f rom the keri. Unchanged positioning of right IJ central venous catheter. HEART / MEDIASTINUM: No significant abnormality. LUNGS / PLEURA: Redemonstrated multifocal patchy airspace opacities. No pneumothorax. ADDITIONAL FINDINGS: No significant additional findings. IMPRESSION: 1. Tracheostomy tube terminating approximately 7.3 cm the keri. Signer Name: Dorian Dutta DO Signed: 10/31/2020 7:31 PM Workstation Name: [id number]
[2020-10-31] MEDS: fentaNYL 100 MCG/2 ML INJ IV PRN (21:05)
[2020-11-01] MEDS: MIDODRINE 5 MG TAB PO SCH ×2 (02:31→09:13)
[2020-11-01 04:37] LABS: Hematocrit 23.5 % (35.5-45.6); Hemoglobin 7.6 gm/dl (11.8-15.2); Mean Corpuscular HGB Conc 32 % (32-34); Mean Corpuscular Volume 79 fl (84-94); Platelet Count 427 K/mm3 (140-440); Red Blood Count 2.98 M/mm3 (3.65-5.03)
[2020-11-01 04:38] LABS: Red Cell Distribution Width 28.4 % (13.2-15.2)
[2020-11-01 04:50] LABS: Calcium 8.1 mg/dL (8.4-10.2)
[2020-11-01] MEDS: DEXTROSE 50% IN WATER (25GM) 50 ML SYRINGE IV PRN (05:26)
[2020-11-01 08:26] LABS: Total Cells Counted 100
[2020-11-01 08:27] LABS: Anisocytosis 3+; Band Neutrophils # (Manual) 1.8 K/mm3; Myelocytes # (Manual) 0.3 K/mm3
[2020-11-01 08:28] LABS: Hypochromasia 1+; Poikilocytosis 1+
[2020-11-01 08:29] LABS: Target Cells 2+; Tear Drop Cells 1+
[2020-11-01 08:32] LABS: Platelet Estimate Consistent w Auto
[2020-11-01] MEDS: GLYCOPYRROLATE 2 MG TAB PO SCH ×2 (09:01→14:42)
[2020-11-01] MEDS: FERROUS SULFATE 308 MG (62mg Elemental Iron) / 7 ML ELIXIR FEEDTUBE SCH (09:12)
[2020-11-01] MEDS: MULTIVITAMIN / MINERAL ORAL LIQUID 15 ML PO SCH (09:13)
[2020-11-01] MEDS: AMIODARONE 200 MG TAB PO SCH (09:13)
[2020-11-01] MEDS: FOLIC ACID 1 MG TAB PO SCH (09:13)
[2020-11-01] MEDS: HEPARIN 5,000 UNIT/1 ML VIAL SUB-Q SCH (09:13)
[2020-11-01] MEDS: levETIRAcetam 500 MG/5 ML ORAL LIQD PO SCH (09:14)
[2020-11-01] MEDS ORDERED: LANSOPRAZOLE 30 MG SOLUTAB FEEDTUBE SCH (10:00)
--- NOTE | 2020-11-01 11:40 | Discharge Summary ---
Providers - Providers Date of Admission: 10/03/20 00:30 Date of discharge: 11/01/20 Attending physician: TJ WOODS MD 10/03/20 02:32 Occupational Therapy Evaluate and Treat [CONS] Stat Comment: Reason For Exam: Altered mental status Physical Therapy Evaluation and Treat [CONS] Stat Comment: Reason For Exam: Altered mental Mode of Transport?: Wheelchair 10/03/20 06:37 Consult to Dietitian/Nutrition [CONS] Stat Physician Instructions: Reason For Exam: Reason for Consult: Malnutrition 10/03/20 10:24 Consult to Physician [CONS] Routine Comment: Consulting Provider: CHANCE MENSAH Physician Instructions: Reason For Exam: possible CVA 10/03/20 16:39 Speech Therapy Evaluation and Treat [CONS] Routine Reason For Exam: aspiration 10/03/20 16:51 Consult to Dietitian/Nutrition [CONS] Routine Physician Instructions: Assess nutrtn needs, initiate, modify, manage TF Reason For Exam: Reason for Consult: Write/Manage Tube Feeding Reason for Consult: Write/Manage Tube Feeding 10/04/20 11:55 Consult to Physician [CONS] Routine Comment: Consulting Provider: NATALI BAUM Physician Instructions: Reason For Exam: possible GI bleed 10/07/20 07:48 Consult to Physician [CONS] Routine Comment: Consulting Provider: ALEYDA RUSSO Physician Instructions: Reason For Exam: Hyponatremia of 128 10/09/20 07:25 Consult to Physician [CONS] Routine Comment: Consulting Provider: NATHANIEL MCDANIELS Physician Instructions: Reason For Exam: Bilateral pneumonia 10/10/20 14:22 Consult to Dietitian/Nutrition [CONS] Routine Physician Instructions: Reason For Exam: Reason for Consult: FOR TF ORDERS 10/11/20 07:58 Midline [Consult to PICC Line RN] [CONS] Urgent Reason For Exam: IV access Type Line:: Midline 10/13/20 12:26 Consult to Dietitian/Nutrition [CONS] Routine Physician Instructions: Reason For Exam: Tube feeding Reason for Consult: Write/Manage Tube Feeding 10/15/20 11:08 Consult to Physician [CONS] Routine Comment: Consulting Provider: GUSTAVO WATSON Physician Instructions: Reason For Exam: resp failure 10/15/20 15:00 Consult to PICC Line RN [CONS] Routine Reason For Exam: vasopressors Type Line:: PICC 10/16/20 15:29 Consult to Physician [CONS] Routine Comment: called answ. serv. / katie Consulting Provider: PHYLLIS DRISCOLL Physician Instructions: Reason For Exam: A-fib / flutter 10/23/20 06:50 Consult to Wound/ET Nurse [CONS] Stat Reason For Exam: wound eval 10/29/20 08:00 Consult to Wound/ET Nurse [CONS] Routine Reason For Exam: wound eval 10/30/20 10:35 Consult to Physician [CONS] Routine Comment: Spoke to Michelle/Marie Consulting Provider: CAROLYNE BANERJEE Physician Instructions: Reason For Exam: trach/peg placement Primary care physician: BOTTLE CASER Hospitalization Condition: Stable Hospital course: This is 74-year-old male with GERD who presented with AMS and left-sided weakness on 10/03 after being found incontinent in feces and urine on bed. Patient was only able to answer simple questions to the EMS. Upon presentation to the ED patient was confused. CT head showed cerebral with arthrosclerotic calcification. Work-up in the emergency department revealed anemia and hypoglycemia. Patient admitted to the hospital service for further work-up. Patient obtain a CT head which showed no acute finding, was anemic and received 1 unit PRBC, COVID-19 test negative and placed on d10 for hypoglycemia. He obtained an MRI on 10/04 which showed no acute finding. Patient needed several units of PRBC during stay for anemia and when she developed acute kidney injury and nephrology was consulted. GI, ID, CCM was consulted yesterday. On 10/15 patient was intubated. Patient had persistent hypoglycemia and was on D10. Per nephrology patient received hypertonic saline and bicarb drip. Patient was on Levophed, Vito-Synephrine, epinephrine, and dobutamine. Patient eventually progressed to hemodialysis. And developed atrial fibrillation with RVR which was treated with amiodarone. Patient received antibiotic therapy during stay. Patient received a trach and a PEG tube. Patient will be transferred to LTAC continued care. Assessment and Plan Neuro: Acute metabolic encephalopathy, significant narrowing in bilateral posterior cerebral arteries, left-sided hemiparesis with aphasia, atherosclerotic cerebrovascular disease -Avoid delirium -Patient is not sedated -Intact cough/gag, intermittently follows commands, responsive to tactile stimuli -CTA head/CTA neck completed-> see results -MRI brain completed-> see results, findings suggestive of ventriculomegaly -Thiamine and folate daily -s/p Keppra -Seizure precautions -Neurology consulted, appreciate recommendations -EEG completed which cannot rule out acute seizure with postictal state Cardio: afib, HFrEF (10-15%) -s/p Levophed, vasopressin, epinephrine, dobutamine, vasopressin -Currently on midodrine -MAP goal greater than 65 -Blood pressure monitoring per protocol -PICC 10/16 -Cardiology consulted, appreciate recommendations -no anticoagulation per cards for now given thrombocytopenia and anemia -Amiodarone p.o. restarted today -Echo completed-> see results, EF 25-30% Respiratory: Acute hypoxic respiratory failure -Patient was intubated on 10/15 with 7.50 ETT at 24 at the lips -10/31: Tracheostomy placed -VAP bundle -Current vent settings: Assist control tidal volume 500, rate 30, PEEP 8, 30% FiO2 Patient was placed on a CPAP trial today but became tachypneic and was switched to assist control -[facility] following -VAP bundle -Daily CXR and ABG -SBT/SAT when appropriate GI: s/p GIB, oropharyngeal dysphagia, severe protein-calorie malnutrition -Nutrition consult for tube feedings -GI consulted, appreciate recommendations -GI will hold off EGD/PEG given acute clinical worsening with respiratory failure but eventually received from surgery -Patient received hemodialysis yesterday with filtration only -PPI with Protonix -BR prn sepideh : Hyponatremia,metabolic acidosis, acute kidney injury secondary to acute tubular necrosis -Nephrology consulted, appreciate recommendations -Strict intake and output -munoz for I&O -s/p Hypertonic saline per nephrology -HD per nephrology -s/p Lasix drip per CCM -Patient with transition to Friday, , Friday hemodialysis per nephrology -Trend BMP Heme: Iron disease/acute blood loss anemia, superfical venous thrombus -Likely secondary to malnutrition -S/p 5 units of PRBC and 2 unit plt -Iron/multivitamin supplements -GI consulted, appreciate recommendations -Hold off EGD/colonoscopy given acute clinical worsening with respiratory failure per GI -Trend CBC, INR and bleeding -no bleeding on exam -DIC panel negative -Bilateral upper and lower extremity Doppler ultrasound shows occlusive superficial venous thrombus of left basilic and cephalic vein. Endo: s/p Persistent hypoglycemia -tube feedings as tolerated -Accu-Cheks every 4 -Hypoglycemia protocol -Avoid hypoglycemia -10/31 PEG tube placement ID: Pulmonary infiltrate in right lung, Hypothermia -Infectious disease consulted, appreciate recommendations -COVID-19 PCR negative -Antibiotic therapy per ID -Azithromycin 10/03 through 10/09, ceftriaxone 10/03 through 10/09, cefepime 10/17 through 10/22, vancomycin 10/08 through 10/09 -Monitor CBC and temperature curve -Intermittent Joseph hugger use -TSH 2.1 Disposition: [facility] Final Discharge Diagnosis (Prints w/discharge instructions): Sepsis, HFrEF, afib, acute hypoxic respiratory failure, GIB, acute renal failure on HD Time spent for discharge: 60 Core Measure Documentation - Palliative Care Palliative Care/ Comfort Measures: Not Applicable - Core Measures Any of the following diagnoses?: history only Exam - Constitutional Vitals: Temp Pulse Resp BP Pulse Ox 98.1 F 92 H 25 H 100/55 89 11/01/20 07:18 11/01/20 09:52 11/01/20 07:31 11/01/20 09:52 11/01/20 09:52 General appearance: Present: no acute distress - EENT Eyes: Present: PERRL, EOM intact ENT: poor dentition - Neck Neck: Present: normal ROM - Respiratory Respiratory effort: normal Respiratory: bilateral: diminished - Cardiovascular Rhythm: irregularly irregular Heart Sounds: Present: S1 & S2. Absent: systolic murmur, diastolic murmur - Extremities Extremities: no ischemia, pulses intact, pulses symmetrical, normal color Extremity abnormal: edema, cold Peripheral Pulses: within normal limits - Abdominal General gastrointestinal: Present: soft, non-tender, non-distended, normal bowel sounds - Integumentary Integumentary: Present: warm, dry - Musculoskeletal Musculoskeletal: other - Psychiatric Psychiatric: other - Neurologic Neurologic: other - Allied Health Allied health notes reviewed: nursing, RT, social work Plan Activity: advance as tolerated Diet: per dietitian instruction Wound: per wound nurse instructions Special Instructions: record daily weights, record daily BP diary, record blood sugar diary Follow up with: PRIMARY CARE, [Primary Care Provider] - 3-5 Days
--- NOTE | 2020-11-01 12:49 | Progress Note ---
Assessment and Plan Acute hypoxemic respiratory failure Bilateral pneumonia Bilateral pleural effusions Bilateral pulmonary edema Acute kidney injury Acute encephalopathy Severe protein calorie malnutrition Oropharyngeal dysphagia Anemia that is microcytic Oropharyngeal dysphagia - he will need a trach & PEG for safe liberation from MVS - continue schedule Midodrine - continue HD/UF per nephrology prescription for toxin and volume clearance - weaned off systemic steroids - continue care as below otherwise; - wean vasopressors for MAP > 65 mmHg - VAP bundle addressed (HOB > 40 degrees) - sedation target RASS 0 to -1 - daily SAT's & SBT assessments as tolerated - continue glycemic control withh SSI for target BG 140-180 mg while critically ill; avoid hypoglycema - continue lung protective strategies - bronchodilators with pulmonary hygiene per RT - complete AB's per ID recommendations - avoid nephrotoxins, renally dose all medications - prn analgesia per pain score - Maintenance of sleep-wake cycle, avoid delirium - supportive transfusions for serum Hb < 7.0g/dl - G.I. & VTE prophylaxis - PT/OT/ROM exercises - continue mobility protocols for pressure ulcer prophylaxis - Monitor hemodynamics closely - continue other care per attending / other consultants - discharge planning ongoing concurrently COVID SPECIFIC INTERVENTIONS - COVID-19 test negative .... Re-evaluate in am & prn CONDITION: CRITICAL PROGNOSIS: GUARDED CODE STATUS: FULL CODE The high probability of a clinically significant, sudden or life-threatening deterioration of the [respiratory, cardiovascular, & neurologic] system(s) r equired my full and direct attention, intervention and personal management. The aggregate critical care time was [34] minutes without overlap. Time includes spent on; [x] Data Review and interpretation [x] Patient assessment and monitoring of vital signs [x] Documentation [x] Medication orders and management Subjective Date of service: 11/01/20 Principal diagnosis: Ac hypoxemic resp failure; Pneumonia; BETSY; Ac. encephalopathy Interval history: Patient is seen today for: Acute hypoxemic respiratory failure; Pneumonia; Pleural effusions; BETSY; Acute encephalopathy; Severe protein calorie malnutrition Seen and examined at bedside; 24hour events reviewed; nursing and respiratory care staff consulted; no adverse overnight events reported to me; resting in bed; remains on MVS; Objective Vital Signs - 12hr 11/01/20 11/01/20 11/01/20 01:01 01:31 02:01 Temperature Pulse Rate 124 H 115 H 131 H Respiratory 31 H 22 27 H Rate Blood Pressure 110/67 99/59 100/55 O2 Sat by Pulse 89 92 90 Oximetry O2 Sat by Pulse Oximetry [ Assessment] 11/01/20 11/01/20 11/01/20 02:30 03:00 03:14 Temperature 97.3 F L Pulse Rate 136 H 126 H Respiratory 29 H 32 H Rate Blood Pressure 104/65 102/62 O2 Sat by Pulse 91 91 Oximetry O2 Sat by Pulse Oximetry [ Assessment] 11/01/20 11/01/20 11/01/20 03:31 04:00 04:01 Temperature Pulse Rate 134 H 134 H 134 H Respiratory 24 30 H 28 H Rate Blood Pressure 106/64 91/55 113/63 O2 Sat by Pulse 90 90 91 Oximetry O2 Sat by Pulse Oximetry [ Assessment] 11/01/20 11/01/20 11/01/20 04:30 05:01 05:30 Temperature Pulse Rate 134 H 135 H 132 H Respiratory 27 H 24 35 H Rate Blood Pressure 91/54 100/55 91/55 O2 Sat by Pulse 87 90 85 Oximetry O2 Sat by Pulse Oximetry [ Assessment] 11/01/20 11/01/20 11/01/20 06:00 06:30 07:00 Temperature Pulse Rate 150 H 149 H 149 H Respiratory 22 27 H 28 H Rate Blood Pressure 81/47 85/48 82/45 O2 Sat by Pulse 88 92 92 Oximetry O2 Sat by Pulse Oximetry [ Assessment] 11/01/20 11/01/20 11/01/20 07:18 07:31 08:00 Temperature 98.1 F Pulse Rate 151 H 74 Respiratory 25 H Rate Blood Pressure 85/52 O2 Sat by Pulse 95 Oximetry O2 Sat by Pulse Oximetry [ Assessment] 11/01/20 11/01/20 11/01/20 08:01 08:31 09:01 Temperature Pulse Rate 150 H 76 79 Respiratory 23 25 H 26 H Rate Blood Pressure 82/45 81/51 102/64 O2 Sat by Pulse 93 93 92 Oximetry O2 Sat by Pulse Oximetry [ Assessment] 11/01/20 11/01/20 11/01/20 09:31 09:52 10:01 Temperature Pulse Rate 80 92 H 80 Respiratory 27 H 27 H Rate Blood Pressure 102/56 100/55 113/56 O2 Sat by Pulse 92 89 91 Oximetry O2 Sat by Pulse Oximetry [ Assessment] 09/11/01/20 11/01/20 10:31 11:01 11:30 Temperature Pulse Rate 119 H 128 H 118 H Respiratory 29 H 22 24 Rate Blood Pressure 102/58 101/58 106/59 O2 Sat by Pulse 93 92 92 Oximetry O2 Sat by Pulse Oximetry [ Assessment] 11/01/20 11/01/20 11:44 11:52 Temperature 100.0 F H Pulse Rate Respiratory Rate Blood Pressure O2 Sat by Pulse Oximetry O2 Sat by Pulse 91 Oximetry [ Assessment] Constitutional: appears uncomfortable, other (elderly and chronically ill looking male with mildly increased respiratory effort at rest on MVS) Eyes: non-icteric ENT: oropharynx dry, other (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) Neck: supple, no lymphadenopathy, no JVD, other (RIJ Vascath) Effort: mildly labored Ascultation: Bilateral: diminished breath sounds, rhonchi Percussion: Bilateral: not dull Cardiovascular: irregular rhythm (irregularly irregular) Gastrointestinal: normoactive bowel sounds Integumentary: normal Extremities: no cyanosis, pulses normal, no ischemia or petechiae, edema (1+) Neurologic: pupils equal and round, unable to assess Psychiatric: other (unable to assess re: AMS) CBC and BMP: 11/01/20 Unknown 11/01/20 Unknown ABG, PT/INR, D-dimer: ABG ABG pH 7.468 (7.320-7.450) H 10/31/20 04:12 POC ABG pCO2 41.2 mmHg (32.0-48.0) 10/31/20 04:12 POC ABG pO2 50.9 mmHg (83-108) L 10/31/20 04:12 POC ABG HCO3 29.2 10/31/20 04:12 ABG O2 Saturation 85.9 (0-100) 10/31/20 04:12 PT/INR, D-dimer PT 20.4 Sec. (12.2-14.9) H 10/24/20 05:27 INR 1.70 (0.87-1.13) H 10/24/20 05:27 D-Dimer 1992.93 ng/mlDDU (0-234) H 10/21/20 Unknown Abnormal lab findings: Abnormal Labs 10/02/20 10/02/20 10/02/20 23:17 23:17 23:17 WBC RBC 3.31 L Hgb 6.7 L Hct 21.8 L MCV 66 L MCH 20 L MCHC 31 L RDW 31.7 H Plt Count [place] % (Auto) [place] # (Auto) Seg Neutrophils % Seg Neuts % (Manual) 79.0 H Lymphocytes % (Manual) 11.0 L Monocytes % (Manual) 10.0 H Basophils % (Manual) Nucleated RBC % Seg Neutrophils # Seg Neutrophils # Man Lymphocytes # (Manual) 0.9 L Monocytes # (Manual) Basophils # (Manual) PT 20.8 H INR 1.74 H APTT 57.6 H Fibrinogen D-Dimer ABG pH POC ABG pCO2 POC ABG pO2 ABG Hemoglobin ABG Oxyhemoglobin ABG Sodium ABG Potassium ABG Chloride ABG Glucose Sodium Potassium Chloride Carbon Dioxide BUN Creatinine Glucose 42 L POC Glucose Lactic Acid Calcium Magnesium Iron Total Bilirubin Direct Bilirubin AST ALT Alkaline Phosphatase Ammonia CK-MB (CK-2) 7.5 H CK-MB (CK-2) Rel Index 8.5 H Total Protein Albumin 2.9 L Arterial Blood Glucose Arterial Blood Ionized Calcium Urine Creatinine Urine Total Protein Salicylates Acetaminophen Crossmatch 10/02/20 10/02/20 10/02/20 23:17 23:17 23:17 WBC RBC Hgb Hct MCV MCH MCHC RDW Plt Count [place] % (Auto) [place] # (Auto) Seg Neutrophils % Seg Neuts % (Manual) Lymphocytes % (Manual) Monocytes % (Manual) Basophils % (Manual) Nucleated RBC % Seg Neutrophils # Seg Neutrophils # Man Lymphocytes # (Manual) Monocytes # (Manual) Basophils # (Manual) PT INR APTT Fibrinogen D-Dimer ABG pH POC ABG pCO2 POC ABG pO2 ABG Hemoglobin ABG Oxyhemoglobin ABG Sodium ABG Potassium ABG Chloride ABG Glucose Sodium Potassium Chloride Carbon Dioxide BUN Creatinine Glucose POC Glucose Lactic Acid 2.20 H* Calcium Magnesium Iron Total Bilirubin Direct Bilirubin AST ALT Alkaline Phosphatase Ammonia 22.0 L CK-MB (CK-2) CK-MB (CK-2) Rel Index Total Protein Albumin Arterial Blood Glucose Arterial Blood Ionized Calcium Urine Creatinine Urine Total Protein Salicylates < 0.3 L Acetaminophen Crossmatch 10/02/20 10/03/20 10/03/20 23:17 05:57 05:57 WBC RBC 2.66 L Hgb 5.3 L* Hct 17.8 L* MCV 67 L MCH 20 L MCHC 30 L RDW 32.1 H Plt Count [place] % (Auto) [place] # (Auto) Seg Neutrophils % Seg Neuts % (Manual) Lymphocytes % (Manual) 2.0 L Monocytes % (Manual) Basophils % (Manual) Nucleated RBC % 1.0 H Seg Neutrophils # Seg Neutrophils # Man 8.6 H Lymphocytes # (Manual) 0.2 L Monocytes # (Manual) Basophils # (Manual) PT INR APTT Fibrinogen D-Dimer ABG pH POC ABG pCO2 POC ABG pO2 ABG Hemoglobin ABG Oxyhemoglobin ABG Sodium ABG Potassium ABG Chloride ABG Glucose Sodium Potassium Chloride Carbon Dioxide BUN Creatinine Glucose POC Glucose Lactic Acid Calcium Magnesium Iron Total Bilirubin Direct Bilirubin AST ALT Alkaline Phosphatase Ammonia CK-MB (CK-2) CK-MB (CK-2) Rel Index Total Protein Albumin Arterial Blood Glucose Arterial Blood Ionized Calcium Urine Creatinine Urine Total Protein Salicylates Acetaminophen 5.0 L Crossmatch See Detail 10/03/20 10/03/20 10/03/20 05:57 05:57 06:00 WBC RBC Hgb Hct MCV MCH MCHC RDW Plt Count [place] % (Auto) [place] # (Auto) Seg Neutrophils % Seg Neuts % (Manual) Lymphocytes % (Manual) Monocytes % (Manual) Basophils % (Manual) Nucleated RBC % Seg Neutrophils # Seg Neutrophils # Man Lymphocytes # (Manual) Monocytes # (Manual) Basophils # (Manual) PT INR APTT Fibrinogen D-Dimer ABG pH POC ABG pCO2 POC ABG pO2 ABG Hemoglobin ABG Oxyhemoglobin ABG Sodium ABG Potassium ABG Chloride ABG Glucose Sodium Potassium Chloride Carbon Dioxide BUN Creatinine Glucose 52 L POC Glucose 31 L Lactic Acid Calcium Magnesium Iron 42 L Total Bilirubin Direct Bilirubin AST ALT Alkaline Phosphatase Ammonia CK-MB (CK-2) CK-MB (CK-2) Rel Index Total Protein 5.8 L Albumin 3.1 L Arterial Blood Glucose Arterial Blood Ionized Calcium Urine Creatinine Urine Total Protein Salicylates Acetaminophen Crossmatch 10/03/20 10/03/20 10/03/20 07:34 09:43 10:57 WBC RBC Hgb Hct MCV MCH MCHC RDW Plt Count [place] % (Auto) [place] # (Auto) Seg Neutrophils % Seg Neuts % (Manual) Lymphocytes % (Manual) Monocytes % (Manual) Basophils % (Manual) Nucleated RBC % Seg Neutrophils # Seg Neutrophils # Man Lymphocytes # (Manual) Monocytes # (Manual) Basophils # (Manual) PT INR APTT Fibrinogen D-Dimer ABG pH POC ABG pCO2 POC ABG pO2 ABG Hemoglobin ABG Oxyhemoglobin ABG Sodium ABG Potassium ABG Chloride ABG Glucose Sodium Potassium Chloride Carbon Dioxide BUN Creatinine Glucose POC Glucose 59 L 41 L 31 L Lactic Acid Calcium Magnesium Iron Total Bilirubin Direct Bilirubin AST ALT Alkaline Phosphatase Ammonia CK-MB (CK-2) CK-MB (CK-2) Rel Index Total Protein Albumin Arterial Blood Glucose Arterial Blood Ionized Calcium Urine Creatinine Urine Total Protein Salicylates Acetaminophen Crossmatch 10/03/20 10/03/20 10/03/20 11:21 12:00 12:14 WBC RBC Hgb Hct MCV MCH MCHC RDW Plt Count [place] % (Auto) [place] # (Auto) Seg Neutrophils % Seg Neuts % (Manual) Lymphocytes % (Manual) Monocytes % (Manual) Basophils % (Manual) Nucleated RBC % Seg Neutrophils # Seg Neutrophils # Man Lymphocytes # (Manual) Monocytes # (Manual) Basophils # (Manual) PT INR APTT Fibrinogen D-Dimer ABG pH POC ABG pCO2 POC ABG pO2 ABG Hemoglobin ABG Oxyhemoglobin ABG Sodium ABG Potassium ABG Chloride ABG Glucose Sodium Potassium Chloride Carbon Dioxide BUN Creatinine Glucose POC Glucose 62 L 26 L 140 H Lactic Acid Calcium Magnesium Iron Total Bilirubin Direct Bilirubin AST ALT Alkaline Phosphatase Ammonia CK-MB (CK-2) CK-MB (CK-2) Rel Index Total Protein Albumin Arterial Blood Glucose Arterial Blood Ionized Calcium Urine Creatinine Urine Total Protein Salicylates Acetaminophen Crossmatch 10/03/20 10/03/20 10/03/20 13:33 14:19 14:59 WBC RBC Hgb Hct MCV MCH MCHC RDW Plt Count [place] % (Auto) [place] # (Auto) Seg Neutrophils % Seg Neuts % (Manual) Lymphocytes % (Manual) Monocytes % (Manual) Basophils % (Manual) Nucleated RBC % Seg Neutrophils # Seg Neutrophils # Man Lymphocytes # (Manual) Monocytes # (Manual) Basophils # (Manual) PT INR APTT Fibrinogen D-Dimer ABG pH POC ABG pCO2 POC ABG pO2 ABG Hemoglobin ABG Oxyhemoglobin ABG Sodium ABG Potassium ABG Chloride ABG Glucose Sodium Potassium Chloride Carbon Dioxide BUN Creatinine Glucose POC Glucose 24 L 59 L 40 L Lactic Acid Calcium Magnesium Iron Total Bilirubin Direct Bilirubin AST ALT Alkaline Phosphatase Ammonia CK-MB (CK-2) CK-MB (CK-2) Rel Index Total Protein Albumin Arterial Blood Glucose Arterial Blood Ionized Calcium Urine Creatinine Urine Total Protein Salicylates Acetaminophen Crossmatch 10/03/20 10/03/20 10/03/20 15:26 15:57 16:35 WBC RBC Hgb Hct MCV MCH MCHC RDW Plt Count [place] % (Auto) [place] # (Auto) Seg Neutrophils % Seg Neuts % (Manual) Lymphocytes % (Manual) Monocytes % (Manual) Basophils % (Manual) Nucleated RBC % Seg Neutrophils # Seg Neutrophils # Man Lymphocytes # (Manual) Monocytes # (Manual) Basophils # (Manual) PT INR APTT Fibrinogen D-Dimer ABG pH POC ABG pCO2 POC ABG pO2 ABG Hemoglobin ABG Oxyhemoglobin ABG Sodium ABG Potassium ABG Chloride ABG Glucose Sodium Potassium Chloride Carbon Dioxide BUN Creatinine Glucose POC Glucose 54 L 45 L 42 L Lactic Acid Calcium Magnesium Iron Total Bilirubin Direct Bilirubin AST ALT Alkaline Phosphatase Ammonia CK-MB (CK-2) CK-MB (CK-2) Rel Index Total Protein Albumin Arterial Blood Glucose Arterial Blood Ionized Calcium Urine Creatinine Urine Total Protein Salicylates Acetaminophen Crossmatch 10/03/20 10/03/20 10/03/20 17:16 18:37 19:56 WBC RBC Hgb Hct MCV MCH MCHC RDW Plt Count [place] % (Auto) [place] # (Auto) Seg Neutrophils % Seg Neuts % (Manual) Lymphocytes % (Manual) Monocytes % (Manual) Basophils % (Manual) Nucleated RBC % Seg Neutrophils # Seg Neutrophils # Man Lymphocytes # (Manual) Monocytes # (Manual) Basophils # (Manual) PT INR APTT Fibrinogen D-Dimer ABG pH POC ABG pCO2 POC ABG pO2 ABG Hemoglobin ABG Oxyhemoglobin ABG Sodium ABG Potassium ABG Chloride ABG Glucose Sodium Potassium Chloride Carbon Dioxide BUN Creatinine Glucose POC Glucose 41 L 46 L 57 L Lactic Acid Calcium Magnesium Iron Total Bilirubin Direct Bilirubin AST ALT Alkaline Phosphatase Ammonia CK-MB (CK-2) CK-MB (CK-2) Rel Index Total Protein Albumin Arterial Blood Glucose Arterial Blood Ionized Calcium Urine Creatinine Urine Total Protein Salicylates Acetaminophen Crossmatch 10/03/20 10/04/20 10/04/20 21:32 01:04 01:11 WBC RBC Hgb 9.6 L D Hct 28.3 L D MCV MCH MCHC RDW Plt Count [place] % (Auto) [place] # (Auto) Seg Neutrophils % Seg Neuts % (Manual) Lymphocytes % (Manual) Monocytes % (Manual) Basophils % (Manual) Nucleated RBC % Seg Neutrophils # Seg Neutrophils # Man Lymphocytes # (Manual) Monocytes # (Manual) Basophils # (Manual) PT INR APTT Fibrinogen D-Dimer ABG pH POC ABG pCO2 POC ABG pO2 ABG Hemoglobin ABG Oxyhemoglobin ABG Sodium ABG Potassium ABG Chloride ABG Glucose Sodium Potassium Chloride Carbon Dioxide BUN Creatinine Glucose POC Glucose 65 L 51 L Lactic Acid Calcium Magnesium Iron Total Bilirubin Direct Bilirubin AST ALT Alkaline Phosphatase Ammonia CK-MB (CK-2) CK-MB (CK-2) Rel Index Total Protein Albumin Arterial Blood Glucose Arterial Blood Ionized Calcium Urine Creatinine Urine Total Protein Salicylates Acetaminophen Crossmatch 10/04/20 10/04/20 10/04/20 05:59 05:59 15:10 WBC 13.4 H RBC Hgb 9.9 L 10.1 L Hct 32.0 L 31.8 L MCV 76 L MCH 24 L MCHC 31 L RDW 31.3 H Plt Count [place] % (Auto) [place] # (Auto) Seg Neutrophils % Seg Neuts % (Manual) 86.0 H Lymphocytes % (Manual) 6.0 L Monocytes % (Manual) 8.0 H Basophils % (Manual) Nucleated RBC % 2.0 H Seg Neutrophils # Seg Neutrophils # Man 11.5 H Lymphocytes # (Manual) 0.8 L Monocytes # (Manual) 1.1 H Basophils # (Manual) PT INR APTT Fibrinogen D-Dimer ABG pH POC ABG pCO2 POC ABG pO2 ABG Hemoglobin ABG Oxyhemoglobin ABG Sodium ABG Potassium ABG Chloride ABG Glucose Sodium 136 L Potassium 3.5 L Chloride Carbon Dioxide 19 L D BUN Creatinine Glucose POC Glucose Lactic Acid Calcium Magnesium Iron Total Bilirubin Direct Bilirubin AST ALT Alkaline Phosphatase Ammonia CK-MB (CK-2) CK-MB (CK-2) Rel Index Total Protein Albumin 2.6 L Arterial Blood Glucose Arterial Blood Ionized Calcium Urine Creatinine Urine Total Protein Salicylates Acetaminophen Crossmatch 10/04/20 10/04/20 10/05/20 16:28 22:33 04:43 WBC RBC Hgb 10.5 L Hct 32.5 L MCV MCH MCHC RDW Plt Count [place] % (Auto) [place] # (Auto) Seg Neutrophils % Seg Neuts % (Manual) Lymphocytes % (Manual) Monocytes % (Manual) Basophils % (Manual) Nucleated RBC % Seg Neutrophils # Seg Neutrophils # Man Lymphocytes # (Manual) Monocytes # (Manual) Basophils # (Manual) PT INR APTT Fibrinogen D-Dimer ABG pH POC ABG pCO2 POC ABG pO2 ABG Hemoglobin ABG Oxyhemoglobin ABG Sodium ABG Potassium ABG Chloride ABG Glucose Sodium Potassium Chloride Carbon Dioxide BUN Creatinine Glucose POC Glucose 66 L 113 H Lactic Acid Calcium Magnesium Iron Total Bilirubin Direct Bilirubin AST ALT Alkaline Phosphatase Ammonia CK-MB (CK-2) CK-MB (CK-2) Rel Index Total Protein Albumin Arterial Blood Glucose Arterial Blood Ionized Calcium Urine Creatinine Urine Total Protein Salicylates Acetaminophen Crossmatch 10/05/20 10/05/20 10/05/20 05:00 09:42 11:57 WBC RBC Hgb 9.8 L Hct 30.5 L MCV 74 L MCH 24 L MCHC RDW 31.6 H Plt Count [place] % (Auto) [place] # (Auto) Seg Neutrophils % Seg Neuts % (Manual) Lymphocytes % (Manual) Monocytes % (Manual) Basophils % (Manual) Nucleated RBC % Seg Neutrophils # Seg Neutrophils # Man Lymphocytes # (Manual) Monocytes # (Manual) Basophils # (Manual) PT INR APTT Fibrinogen D-Dimer ABG pH POC ABG pCO2 POC ABG pO2 ABG Hemoglobin ABG Oxyhemoglobin ABG Sodium ABG Potassium ABG Chloride ABG Glucose Sodium 132 L Potassium 3.5 L Chloride Carbon Dioxide 19 L BUN Creatinine 0.7 L Glucose POC Glucose 129 H Lactic Acid Calcium Magnesium Iron Total Bilirubin Direct Bilirubin AST ALT Alkaline Phosphatase Ammonia CK-MB (CK-2) CK-MB (CK-2) Rel Index Total Protein Albumin Arterial Blood Glucose Arterial Blood Ionized Calcium Urine Creatinine Urine Total Protein Salicylates Acetaminophen Crossmatch 10/05/20 10/05/20 10/06/20 16:47 21:51 05:07 WBC RBC Hgb 9.4 L Hct 30.1 L MCV 76 L MCH 24 L MCHC 31 L RDW 31.1 H Plt Count [place] % (Auto) [place] # (Auto) Seg Neutrophils % Seg Neuts % (Manual) Lymphocytes % (Manual) Monocytes % (Manual) Basophils % (Manual) Nucleated RBC % Seg Neutrophils # Seg Neutrophils # Man Lymphocytes # (Manual) Monocytes # (Manual) Basophils # (Manual) PT INR APTT Fibrinogen D-Dimer ABG pH POC ABG pCO2 POC ABG pO2 ABG Hemoglobin ABG Oxyhemoglobin ABG Sodium ABG Potassium ABG Chloride ABG Glucose Sodium Potassium Chloride Carbon Dioxide BUN Creatinine Glucose POC Glucose 132 H 115 H Lactic Acid Calcium Magnesium Iron Total Bilirubin Direct Bilirubin AST ALT Alkaline Phosphatase Ammonia CK-MB (CK-2) CK-MB (CK-2) Rel Index Total Protein Albumin Arterial Blood Glucose Arterial Blood Ionized Calcium Urine Creatinine Urine Total Protein Salicylates Acetaminophen Crossmatch 10/06/20 10/06/20 10/06/20 05:07 15:37 21:01 WBC RBC Hgb Hct MCV MCH MCHC RDW Plt Count [place] % (Auto) [place] # (Auto) Seg Neutrophils % Seg Neuts % (Manual) Lymphocytes % (Manual) Monocytes % (Manual) Basophils % (Manual) Nucleated RBC % Seg Neutrophils # Seg Neutrophils # Man Lymphocytes # (Manual) Monocytes # (Manual) Basophils # (Manual) PT INR APTT Fibrinogen D-Dimer ABG pH POC ABG pCO2 POC ABG pO2 ABG Hemoglobin ABG Oxyhemoglobin ABG Sodium ABG Potassium ABG Chloride ABG Glucose Sodium 133 L Potassium 3.5 L Chloride Carbon Dioxide 21 L BUN Creatinine 0.6 L Glucose 105 H POC Glucose 136 H 108 H Lactic Acid Calcium Magnesium Iron Total Bilirubin Direct Bilirubin AST ALT Alkaline Phosphatase Ammonia CK-MB (CK-2) CK-MB (CK-2) Rel Index Total Protein Albumin Arterial Blood Glucose Arterial Blood Ionized Calcium Urine Creatinine Urine Total Protein Salicylates Acetaminophen Crossmatch 10/07/20 10/07/20 10/07/20 04:52 04:52 06:07 WBC RBC Hgb 9.6 L Hct 29.4 L MCV 73 L MCH 24 L MCHC RDW 32.2 H Plt Count [place] % (Auto) [place] # (Auto) Seg Neutrophils % Seg Neuts % (Manual) Lymphocytes % (Manual) Monocytes % (Manual) Basophils % (Manual) Nucleated RBC % Seg Neutrophils # Seg Neutrophils # Man Lymphocytes # (Manual) Monocytes # (Manual) Basophils # (Manual) PT INR APTT Fibrinogen D-Dimer ABG pH POC ABG pCO2 POC ABG pO2 ABG Hemoglobin ABG Oxyhemoglobin ABG Sodium ABG Potassium ABG Chloride ABG Glucose Sodium 128 L Potassium Chloride Carbon Dioxide 20 L BUN Creatinine 0.7 L Glucose POC Glucose 110 H Lactic Acid Calcium Magnesium Iron Total Bilirubin Direct Bilirubin AST ALT Alkaline Phosphatase Ammonia CK-MB (CK-2) CK-MB (CK-2) Rel Index Total Protein Albumin Arterial Blood Glucose Arterial Blood Ionized Calcium Urine Creatinine Urine Total Protein Salicylates Acetaminophen Crossmatch 10/07/20 10/07/20 10/07/20 17:09 18:53 20:35 WBC RBC Hgb Hct MCV MCH MCHC RDW Plt Count [place] % (Auto) [place] # (Auto) Seg Neutrophils % Seg Neuts % (Manual) Lymphocytes % (Manual) Monocytes % (Manual) Basophils % (Manual) Nucleated RBC % Seg Neutrophils # Seg Neutrophils # Man Lymphocytes # (Manual) Monocytes # (Manual) Basophils # (Manual) PT INR APTT Fibrinogen D-Dimer ABG pH POC ABG pCO2 POC ABG pO2 ABG Hemoglobin ABG Oxyhemoglobin ABG Sodium ABG Potassium ABG Chloride ABG Glucose Sodium Potassium Chloride Carbon Dioxide BUN Creatinine Glucose POC Glucose 67 L 66 L 62 L Lactic Acid Calcium Magnesium Iron Total Bilirubin Direct Bilirubin AST ALT Alkaline Phosphatase Ammonia CK-MB (CK-2) CK-MB (CK-2) Rel Index Total Protein Albumin Arterial Blood Glucose Arterial Blood Ionized Calcium Urine Creatinine Urine Total Protein Salicylates Acetaminophen Crossmatch 10/07/20 10/08/20 10/08/20 21:55 05:00 05:00 WBC RBC Hgb 9.6 L Hct 29.4 L MCV 73 L MCH 24 L MCHC RDW 32.4 H Plt Count [place] % (Auto) [place] # (Auto) Seg Neutrophils % 80.6 H Seg Neuts % (Manual) 88.0 H Lymphocytes % (Manual) 9.0 L Monocytes % (Manual) Basophils % (Manual) Nucleated RBC % 5.0 H Seg Neutrophils # Seg Neutrophils # Man Lymphocytes # (Manual) 0.5 L Monocytes # (Manual) Basophils # (Manual) PT INR APTT Fibrinogen D-Dimer ABG pH POC ABG pCO2 POC ABG pO2 ABG Hemoglobin ABG Oxyhemoglobin ABG Sodium ABG Potassium ABG Chloride ABG Glucose Sodium 126 L Potassium Chloride 96.3 L Carbon Dioxide BUN Creatinine 0.7 L Glucose POC Glucose 132 H Lactic Acid Calcium Magnesium Iron Total Bilirubin Direct Bilirubin AST ALT Alkaline Phosphatase Ammonia CK-MB (CK-2) CK-MB (CK-2) Rel Index Total Protein Albumin Arterial Blood Glucose Arterial Blood Ionized Calcium Urine Creatinine Urine Total Protein Salicylates Acetaminophen Crossmatch 08/10/09/20 10/09/20 22:26 01:36 02:22 WBC RBC Hgb Hct MCV MCH MCHC RDW Plt Count [place] % (Auto) [place] # (Auto) Seg Neutrophils % Seg Neuts % (Manual) Lymphocytes % (Manual) Monocytes % (Manual) Basophils % (Manual) Nucleated RBC % Seg Neutrophils # Seg Neutrophils # Man Lymphocytes # (Manual) Monocytes # (Manual) Basophils # (Manual) PT INR APTT Fibrinogen D-Dimer ABG pH POC ABG pCO2 POC ABG pO2 ABG Hemoglobin ABG Oxyhemoglobin ABG Sodium ABG Potassium ABG Chloride ABG Glucose Sodium Potassium Chloride Carbon Dioxide BUN Creatinine Glucose POC Glucose 63 L 62 L 151 H Lactic Acid Calcium Magnesium Iron Total Bilirubin Direct Bilirubin AST ALT Alkaline Phosphatase Ammonia CK-MB (CK-2) CK-MB (CK-2) Rel Index Total Protein Albumin Arterial Blood Glucose Arterial Blood Ionized Calcium Urine Creatinine Urine Total Protein Salicylates Acetaminophen Crossmatch 10/09/20 10/09/20 10/09/20 05:07 05:42 06:32 WBC RBC Hgb 10.3 L Hct 33.8 L MCV 77 L MCH 24 L MCHC 31 L RDW 33.6 H Plt Count 137 L [place] % (Auto) [place] # (Auto) Seg Neutrophils % Seg Neuts % (Manual) 89.0 H Lymphocytes % (Manual) 5.0 L Monocytes % (Manual) Basophils % (Manual) Nucleated RBC % 4.0 H Seg Neutrophils # Seg Neutrophils # Man 9.4 H Lymphocytes # (Manual) 0.5 L Monocytes # (Manual) Basophils # (Manual) PT INR APTT Fibrinogen D-Dimer ABG pH POC ABG pCO2 POC ABG pO2 ABG Hemoglobin ABG Oxyhemoglobin ABG Sodium ABG Potassium ABG Chloride ABG Glucose Sodium 126 L Potassium Chloride 97.8 L Carbon Dioxide 20 L BUN Creatinine Glucose 58 L POC Glucose 48 L Lactic Acid Calcium Magnesium Iron Total Bilirubin Direct Bilirubin AST ALT Alkaline Phosphatase Ammonia CK-MB (CK-2) CK-MB (CK-2) Rel Index Total Protein Albumin Arterial Blood Glucose Arterial Blood Ionized Calcium Urine Creatinine Urine Total Protein Salicylates Acetaminophen Crossmatch 10/09/20 10/10/20 10/10/20 06:35 00:21 05:53 WBC RBC Hgb Hct MCV MCH MCHC RDW Plt Count [place] % (Auto) [place] # (Auto) Seg Neutrophils % Seg Neuts % (Manual) Lymphocytes % (Manual) Monocytes % (Manual) Basophils % (Manual) Nucleated RBC % Seg Neutrophils # Seg Neutrophils # Man Lymphocytes # (Manual) Monocytes # (Manual) Basophils # (Manual) PT INR APTT Fibrinogen D-Dimer ABG pH POC ABG pCO2 POC ABG pO2 ABG Hemoglobin ABG Oxyhemoglobin ABG Sodium ABG Potassium ABG Chloride ABG Glucose Sodium Potassium Chloride Carbon Dioxide BUN Creatinine Glucose POC Glucose 106 H 153 H 34 L Lactic Acid Calcium Magnesium Iron Total Bilirubin Direct Bilirubin AST ALT Alkaline Phosphatase Ammonia CK-MB (CK-2) CK-MB (CK-2) Rel Index Total Protein Albumin Arterial Blood Glucose Arterial Blood Ionized Calcium Urine Creatinine Urine Total Protein Salicylates Acetaminophen Crossmatch 10/10/20 10/10/20 10/10/20 10:58 10:58 12:39 WBC RBC Hgb 10.3 L Hct 33.9 L MCV 78 L MCH 24 L MCHC 30 L RDW 33.2 H Plt Count 135 L [place] % (Auto) [place] # (Auto) Seg Neutrophils % Seg Neuts % (Manual) 74.0 H Lymphocytes % (Manual) 12.0 L Monocytes % (Manual) 9.0 H Basophils % (Manual) 2.0 H Nucleated RBC % Seg Neutrophils # Seg Neutrophils # Man Lymphocytes # (Manual) 1.0 L Monocytes # (Manual) Basophils # (Manual) 0.2 H PT INR APTT Fibrinogen D-Dimer ABG pH POC ABG pCO2 POC ABG pO2 ABG Hemoglobin ABG Oxyhemoglobin ABG Sodium ABG Potassium ABG Chloride ABG Glucose Sodium 127 L Potassium Chloride Carbon Dioxide 20 L BUN 23 H Creatinine Glucose POC Glucose 108 H Lactic Acid Calcium Magnesium Iron Total Bilirubin Direct Bilirubin AST ALT Alkaline Phosphatase Ammonia CK-MB (CK-2) CK-MB (CK-2) Rel Index Total Protein Albumin Arterial Blood Glucose Arterial Blood Ionized Calcium Urine Creatinine Urine Total Protein Salicylates Acetaminophen Crossmatch 10/10/20 10/11/20 10/11/20 16:51 04:56 05:51 WBC RBC Hgb 9.5 L Hct 31.3 L MCV 77 L MCH 23 L MCHC 30 L RDW 33.7 H Plt Count [place] % (Auto) [place] # (Auto) Seg Neutrophils % Seg Neuts % (Manual) 95.0 H Lymphocytes % (Manual) 2.0 L Monocytes % (Manual) Basophils % (Manual) Nucleated RBC % 3.0 H Seg Neutrophils # Seg Neutrophils # Man 8.0 H Lymphocytes # (Manual) 0.2 L Monocytes # (Manual) Basophils # (Manual) PT INR APTT Fibrinogen D-Dimer ABG pH POC ABG pCO2 POC ABG pO2 ABG Hemoglobin ABG Oxyhemoglobin ABG Sodium ABG Potassium ABG Chloride ABG Glucose Sodium Potassium Chloride Carbon Dioxide BUN Creatinine Glucose POC Glucose 142 H 124 H Lactic Acid Calcium Magnesium Iron Total Bilirubin Direct Bilirubin AST ALT Alkaline Phosphatase Ammonia CK-MB (CK-2) CK-MB (CK-2) Rel Index Total Protein Albumin Arterial Blood Glucose Arterial Blood Ionized Calcium Urine Creatinine Urine Total Protein Salicylates Acetaminophen Crossmatch 10/11/20 10/11/20 10/12/20 05:51 11:56 04:53 WBC RBC Hgb 9.5 L Hct 30.0 L MCV 75 L MCH 24 L MCHC RDW 32.8 H Plt Count 136 L [place] % (Auto) [place] # (Auto) Seg Neutrophils % Seg Neuts % (Manual) 89.0 H Lymphocytes % (Manual) 5.0 L Monocytes % (Manual) Basophils % (Manual) Nucleated RBC % Seg Neutrophils # Seg Neutrophils # Man Lymphocytes # (Manual) 0.4 L Monocytes # (Manual) Basophils # (Manual) PT INR APTT Fibrinogen D-Dimer ABG pH POC ABG pCO2 POC ABG pO2 ABG Hemoglobin ABG Oxyhemoglobin ABG Sodium ABG Potassium ABG Chloride ABG Glucose Sodium 130 L Potassium Chloride Carbon Dioxide 18 L BUN 23 H Creatinine Glucose POC Glucose 126 H Lactic Acid Calcium Magnesium Iron Total Bilirubin Direct Bilirubin AST ALT Alkaline Phosphatase Ammonia CK-MB (CK-2) CK-MB (CK-2) Rel Index Total Protein Albumin Arterial Blood Glucose Arterial Blood Ionized Calcium Urine Creatinine Urine Total Protein Salicylates Acetaminophen Crossmatch 10/12/20 10/12/20 10/12/20 04:53 11:42 23:49 WBC RBC Hgb Hct MCV MCH MCHC RDW Plt Count [place] % (Auto) [place] # (Auto) Seg Neutrophils % Seg Neuts % (Manual) Lymphocytes % (Manual) Monocytes % (Manual) Basophils % (Manual) Nucleated RBC % Seg Neutrophils # Seg Neutrophils # Man Lymphocytes # (Manual) Monocytes # (Manual) Basophils # (Manual) PT INR APTT Fibrinogen D-Dimer ABG pH POC ABG pCO2 POC ABG pO2 ABG Hemoglobin ABG Oxyhemoglobin ABG Sodium ABG Potassium ABG Chloride ABG Glucose Sodium 130 L Potassium Chloride Carbon Dioxide 18 L BUN 25 H Creatinine Glucose 74 L POC Glucose 59 L 51 L Lactic Acid Calcium Magnesium Iron Total Bilirubin Direct Bilirubin AST ALT Alkaline Phosphatase Ammonia CK-MB (CK-2) CK-MB (CK-2) Rel Index Total Protein Albumin Arterial Blood Glucose Arterial Blood Ionized Calcium Urine Creatinine Urine Total Protein Salicylates Acetaminophen Crossmatch 10/13/20 10/13/20 10/13/20 03:17 05:24 05:24 WBC RBC Hgb 9.4 L Hct 29.4 L MCV 75 L MCH 24 L MCHC RDW 32.9 H Plt Count 95 L [place] % (Auto) [place] # (Auto) Seg Neutrophils % Seg Neuts % (Manual) 90.0 H Lymphocytes % (Manual) Monocytes % (Manual) Basophils % (Manual) Nucleated RBC % 2.0 H Seg Neutrophils # Seg Neutrophils # Man 9.5 H Lymphocytes # (Manual) 0.0 L Monocytes # (Manual) Basophils # (Manual) PT INR APTT Fibrinogen D-Dimer ABG pH POC ABG pCO2 POC ABG pO2 ABG Hemoglobin ABG Oxyhemoglobin ABG Sodium ABG Potassium ABG Chloride ABG Glucose Sodium 132 L Potassium Chloride Carbon Dioxide 17 L BUN 26 H Creatinine 1.6 H Glucose POC Glucose 67 L Lactic Acid Calcium Magnesium Iron Total Bilirubin Direct Bilirubin AST ALT Alkaline Phosphatase Ammonia CK-MB (CK-2) CK-MB (CK-2) Rel Index Total Protein Albumin Arterial Blood Glucose Arterial Blood Ionized Calcium Urine Creatinine Urine Total Protein Salicylates Acetaminophen Crossmatch 10/13/20 10/14/20 10/14/20 11:36 05:04 05:04 WBC 17.4 H RBC Hgb 9.3 L Hct 29.3 L MCV 76 L MCH 24 L MCHC RDW 33.8 H Plt Count 83 L [place] % (Auto) [place] # (Auto) Seg Neutrophils % Seg Neuts % (Manual) 89.0 H Lymphocytes % (Manual) 4.0 L Monocytes % (Manual) Basophils % (Manual) Nucleated RBC % 1.0 H Seg Neutrophils # Seg Neutrophils # Man 15.5 H Lymphocytes # (Manual) 0.7 L Monocytes # (Manual) Basophils # (Manual) PT INR APTT Fibrinogen D-Dimer ABG pH POC ABG pCO2 POC ABG pO2 ABG Hemoglobin ABG Oxyhemoglobin ABG Sodium ABG Potassium ABG Chloride ABG Glucose Sodium 132 L Potassium 5.3 H Chloride 108.7 H Carbon Dioxide 15 L BUN 25 H Creatinine 1.5 H Glucose POC Glucose 58 L Lactic Acid Calcium Magnesium Iron Total Bilirubin Direct Bilirubin AST ALT Alkaline Phosphatase Ammonia CK-MB (CK-2) CK-MB (CK-2) Rel Index Total Protein Albumin Arterial Blood Glucose Arterial Blood Ionized Calcium Urine Creatinine Urine Total Protein Salicylates Acetaminophen Crossmatch 10/14/20 10/14/20 10/14/20 05:41 08:19 15:34 WBC RBC Hgb Hct MCV MCH MCHC RDW Plt Count [place] % (Auto) [place] # (Auto) Seg Neutrophils % Seg Neuts % (Manual) Lymphocytes % (Manual) Monocytes % (Manual) Basophils % (Manual) Nucleated RBC % Seg Neutrophils # Seg Neutrophils # Man Lymphocytes # (Manual) Monocytes # (Manual) Basophils # (Manual) PT INR APTT Fibrinogen D-Dimer ABG pH POC ABG pCO2 POC ABG pO2 ABG Hemoglobin ABG Oxyhemoglobin ABG Sodium ABG Potassium ABG Chloride ABG Glucose Sodium 134 L Potassium 5.2 H Chloride 111.1 H Carbon Dioxide 16 L BUN 25 H Creatinine 1.5 H Glucose POC Glucose 58 L 120 H Lactic Acid Calcium Magnesium Iron Total Bilirubin Direct Bilirubin AST ALT Alkaline Phosphatase Ammonia CK-MB (CK-2) CK-MB (CK-2) Rel Index Total Protein Albumin Arterial Blood Glucose Arterial Blood Ionized Calcium Urine Creatinine Urine Total Protein Salicylates Acetaminophen Crossmatch 10/14/20 10/15/20 10/15/20 Unknown 05:50 05:50 WBC 14.1 H RBC Hgb 9.4 L Hct 29.9 L MCV 76 L MCH 24 L MCHC 31 L RDW 34.2 H Plt Count 86 L [place] % (Auto) 8.3 H [place] # (Auto) 1.3 H Seg Neutrophils % 86.5 H Seg Neuts % (Manual) Lymphocytes % (Manual) 9.0 L Monocytes % (Manual) Basophils % (Manual) Nucleated RBC % 6.0 H Seg Neutrophils # 13.2 H Seg Neutrophils # Man 9.7 H Lymphocytes # (Manual) Monocytes # (Manual) Basophils # (Manual) PT INR APTT Fibrinogen D-Dimer ABG pH POC ABG pCO2 POC ABG pO2 ABG Hemoglobin ABG Oxyhemoglobin ABG Sodium ABG Potassium ABG Chloride ABG Glucose Sodium 134 L Potassium Chloride 109.9 H Carbon Dioxide 18 L BUN 26 H Creatinine 1.5 H Glucose 125 H POC Glucose Lactic Acid Calcium Magnesium Iron Total Bilirubin Direct Bilirubin AST ALT Alkaline Phosphatase Ammonia CK-MB (CK-2) CK-MB (CK-2) Rel Index Total Protein Albumin Arterial Blood Glucose Arterial Blood Ionized Calcium Urine Creatinine 144.2 H Urine Total Protein 97 H Salicylates Acetaminophen Crossmatch 10/15/20 10/15/20 10/15/20 05:55 07:36 07:59 WBC RBC Hgb Hct MCV MCH MCHC RDW Plt Count [place] % (Auto) [place] # (Auto) Seg Neutrophils % Seg Neuts % (Manual) Lymphocytes % (Manual) Monocytes % (Manual) Basophils % (Manual) Nucleated RBC % Seg Neutrophils # Seg Neutrophils # Man Lymphocytes # (Manual) Monocytes # (Manual) Basophils # (Manual) PT INR APTT Fibrinogen D-Dimer ABG pH 7.052 L POC ABG pCO2 65.0 H POC ABG pO2 214.1 H ABG Hemoglobin 10.6 L ABG Oxyhemoglobin 98.3 H ABG Sodium 130.6 L ABG Potassium ABG Chloride 110.0 H ABG Glucose 124 H Sodium Potassium Chloride Carbon Dioxide BUN Creatinine Glucose POC Glucose 113 H 114 H Lactic Acid Calcium Magnesium Iron Total Bilirubin Direct Bilirubin AST ALT Alkaline Phosphatase Ammonia CK-MB (CK-2) CK-MB (CK-2) Rel Index Total Protein Albumin Arterial Blood Glucose 124 H Arterial Blood Ionized Calcium Urine Creatinine Urine Total Protein Salicylates Acetaminophen Crossmatch 10/15/20 10/15/20 10/15/20 10:50 11:27 13:56 WBC RBC Hgb Hct MCV MCH MCHC RDW Plt Count [place] % (Auto) [place] # (Auto) Seg Neutrophils % Seg Neuts % (Manual) Lymphocytes % (Manual) Monocytes % (Manual) Basophils % (Manual) Nucleated RBC % Seg Neutrophils # Seg Neutrophils # Man Lymphocytes # (Manual) Monocytes # (Manual) Basophils # (Manual) PT INR APTT Fibrinogen D-Dimer ABG pH 7.200 L POC ABG pCO2 POC ABG pO2 123.1 H ABG Hemoglobin ABG Oxyhemoglobin ABG Sodium 131.3 L ABG Potassium 4.6 H ABG Chloride 112.0 H ABG Glucose 42 L Sodium Potassium Chloride Carbon Dioxide BUN Creatinine Glucose POC Glucose 50 L 476 H Lactic Acid Calcium Magnesium Iron Total Bilirubin Direct Bilirubin AST ALT Alkaline Phosphatase Ammonia CK-MB (CK-2) CK-MB (CK-2) Rel Index Total Protein Albumin Arterial Blood Glucose 42 L Arterial Blood Ionized Calcium Urine Creatinine Urine Total Protein Salicylates Acetaminophen Crossmatch 10/15/20 10/15/20 10/16/20 16:46 17:01 00:45 WBC RBC Hgb Hct MCV MCH MCHC RDW Plt Count [place] % (Auto) [place] # (Auto) Seg Neutrophils % Seg Neuts % (Manual) Lymphocytes % (Manual) Monocytes % (Manual) Basophils % (Manual) Nucleated RBC % Seg Neutrophils # Seg Neutrophils # Man Lymphocytes # (Manual) Monocytes # (Manual) Basophils # (Manual) PT INR APTT Fibrinogen D-Dimer ABG pH 7.250 L POC ABG pCO2 POC ABG pO2 49.8 L ABG Hemoglobin 9.3 L ABG Oxyhemoglobin 83.0 L ABG Sodium 130.2 L ABG Potassium ABG Chloride 111.0 H ABG Glucose Sodium 135 L Potassium Chloride Carbon Dioxide BUN Creatinine Glucose POC Glucose 67 L Lactic Acid Calcium Magnesium Iron Total Bilirubin Direct Bilirubin AST ALT Alkaline Phosphatase Ammonia CK-MB (CK-2) CK-MB (CK-2) Rel Index Total Protein Albumin Arterial Blood Glucose Arterial Blood Ionized Calcium Urine Creatinine Urine Total Protein Salicylates Acetaminophen Crossmatch 10/16/20 10/16/20 10/16/20 05:36 05:53 05:53 WBC 16.6 H RBC 3.52 L Hgb 8.3 L Hct 26.6 L MCV 75 L MCH 23 L MCHC 31 L RDW 33.7 H Plt Count 63 L [place] % (Auto) [place] # (Auto) Seg Neutrophils % Seg Neuts % (Manual) 93.0 H Lymphocytes % (Manual) Monocytes % (Manual) Basophils % (Manual) Nucleated RBC % 3.0 H Seg Neutrophils # Seg Neutrophils # Man 15.4 H Lymphocytes # (Manual) 0.0 L Monocytes # (Manual) Basophils # (Manual) PT INR APTT Fibrinogen D-Dimer ABG pH POC ABG pCO2 POC ABG pO2 ABG Hemoglobin ABG Oxyhemoglobin ABG Sodium ABG Potassium ABG Chloride ABG Glucose Sodium 136 L Potassium Chloride 111.9 H Carbon Dioxide 17 L BUN 29 H Creatinine 2.0 H Glucose 126 H POC Glucose 44 L Lactic Acid Calcium 8.1 L Magnesium Iron Total Bilirubin Direct Bilirubin AST ALT Alkaline Phosphatase Ammonia CK-MB (CK-2) CK-MB (CK-2) Rel Index Total Protein Albumin Arterial Blood Glucose Arterial Blood Ionized Calcium Urine Creatinine Urine Total Protein Salicylates Acetaminophen Crossmatch 10/16/20 10/16/20 10/16/20 05:53 07:26 08:07 WBC RBC Hgb Hct MCV MCH MCHC RDW Plt Count [place] % (Auto) [place] # (Auto) Seg Neutrophils % Seg Neuts % (Manual) Lymphocytes % (Manual) Monocytes % (Manual) Basophils % (Manual) Nucleated RBC % Seg Neutrophils # Seg Neutrophils # Man Lymphocytes # (Manual) Monocytes # (Manual) Basophils # (Manual) PT 24.5 H INR 2.17 H APTT Fibrinogen D-Dimer ABG pH POC ABG pCO2 POC ABG pO2 ABG Hemoglobin ABG Oxyhemoglobin ABG Sodium ABG Potassium ABG Chloride ABG Glucose Sodium Potassium Chloride Carbon Dioxide BUN Creatinine Glucose POC Glucose 58 L 51 L Lactic Acid Calcium Magnesium Iron Total Bilirubin Direct Bilirubin AST ALT Alkaline Phosphatase Ammonia CK-MB (CK-2) CK-MB (CK-2) Rel Index Total Protein Albumin Arterial Blood Glucose Arterial Blood Ionized Calcium Urine Creatinine Urine Total Protein Salicylates Acetaminophen Crossmatch 10/16/20 10/16/20 10/16/20 08:52 11:14 11:33 WBC RBC Hgb Hct MCV MCH MCHC RDW Plt Count [place] % (Auto) [place] # (Auto) Seg Neutrophils % Seg Neuts % (Manual) Lymphocytes % (Manual) Monocytes % (Manual) Basophils % (Manual) Nucleated RBC % Seg Neutrophils # Seg Neutrophils # Man Lymphocytes # (Manual) Monocytes # (Manual) Basophils # (Manual) PT INR APTT Fibrinogen D-Dimer ABG pH 7.044 L POC ABG pCO2 58.1 H POC ABG pO2 57.7 L ABG Hemoglobin 9.5 L ABG Oxyhemoglobin 81.5 L ABG Sodium 131.7 L ABG Potassium ABG Chloride 112.0 H ABG Glucose 59 L Sodium Potassium Chloride Carbon Dioxide BUN Creatinine Glucose POC Glucose 58 L Lactic Acid Calcium Magnesium Iron Total Bilirubin Direct Bilirubin AST 136 H ALT 72 H Alkaline Phosphatase 240 H Ammonia CK-MB (CK-2) CK-MB (CK-2) Rel Index Total Protein 5.1 L Albumin 2.1 L Arterial Blood Glucose 59 L Arterial Blood Ionized Calcium Urine Creatinine Urine Total Protein Salicylates Acetaminophen Crossmatch 10/16/20 10/16/20 10/16/20 12:32 13:11 13:40 WBC RBC Hgb Hct MCV MCH MCHC RDW Plt Count [place] % (Auto) [place] # (Auto) Seg Neutrophils % Seg Neuts % (Manual) Lymphocytes % (Manual) Monocytes % (Manual) Basophils % (Manual) Nucleated RBC % Seg Neutrophils # Seg Neutrophils # Man Lymphocytes # (Manual) Monocytes # (Manual) Basophils # (Manual) PT INR APTT Fibrinogen D-Dimer ABG pH POC ABG pCO2 POC ABG pO2 ABG Hemoglobin ABG Oxyhemoglobin ABG Sodium ABG Potassium ABG Chloride ABG Glucose Sodium Potassium Chloride Carbon Dioxide BUN Creatinine Glucose POC Glucose 27 L 54 L 69 L Lactic Acid Calcium Magnesium Iron Total Bilirubin Direct Bilirubin AST ALT Alkaline Phosphatase Ammonia CK-MB (CK-2) CK-MB (CK-2) Rel Index Total Protein Albumin Arterial Blood Glucose Arterial Blood Ionized Calcium Urine Creatinine Urine Total Protein Salicylates Acetaminophen Crossmatch 10/16/20 10/16/20 10/16/20 15:13 17:15 17:34 WBC RBC Hgb Hct MCV MCH MCHC RDW Plt Count [place] % (Auto) [place] # (Auto) Seg Neutrophils % Seg Neuts % (Manual) Lymphocytes % (Manual) Monocytes % (Manual) Basophils % (Manual) Nucleated RBC % Seg Neutrophils # Seg Neutrophils # Man Lymphocytes # (Manual) Monocytes # (Manual) Basophils # (Manual) PT INR APTT Fibrinogen D-Dimer ABG pH POC ABG pCO2 POC ABG pO2 ABG Hemoglobin ABG Oxyhemoglobin ABG Sodium ABG Potassium ABG Chloride ABG Glucose Sodium Potassium Chloride Carbon Dioxide BUN Creatinine Glucose POC Glucose 46 L 54 L 119 H Lactic Acid Calcium Magnesium Iron Total Bilirubin Direct Bilirubin AST ALT Alkaline Phosphatase Ammonia CK-MB (CK-2) CK-MB (CK-2) Rel Index Total Protein Albumin Arterial Blood Glucose Arterial Blood Ionized Calcium Urine Creatinine Urine Total Protein Salicylates Acetaminophen Crossmatch 10/16/20 10/16/20 10/16/20 18:51 19:37 21:00 WBC RBC Hgb Hct MCV MCH MCHC RDW Plt Count [place] % (Auto) [place] # (Auto) Seg Neutrophils % Seg Neuts % (Manual) Lymphocytes % (Manual) Monocytes % (Manual) Basophils % (Manual) Nucleated RBC % Seg Neutrophils # Seg Neutrophils # Man Lymphocytes # (Manual) Monocytes # (Manual) Basophils # (Manual) PT INR APTT Fibrinogen D-Dimer ABG pH 7.122 L POC ABG pCO2 49.8 H POC ABG pO2 62.1 L ABG Hemoglobin 9.1 L ABG Oxyhemoglobin 89.6 L ABG Sodium 130.1 L ABG Potassium 3.0 L ABG Chloride 111.0 H ABG Glucose 106 H Sodium Potassium Chloride Carbon Dioxide BUN Creatinine Glucose POC Glucose 64 L 114 H Lactic Acid Calcium Magnesium Iron Total Bilirubin Direct Bilirubin AST ALT Alkaline Phosphatase Ammonia CK-MB (CK-2) CK-MB (CK-2) Rel Index Total Protein Albumin Arterial Blood Glucose 106 H Arterial Blood Ionized Calcium Urine Creatinine Urine Total Protein Salicylates Acetaminophen Crossmatch 10/16/20 10/16/20 10/17/20 22:01 22:58 00:58 WBC RBC Hgb Hct MCV MCH MCHC RDW Plt Count [place] % (Auto) [place] # (Auto) Seg Neutrophils % Seg Neuts % (Manual) Lymphocytes % (Manual) Monocytes % (Manual) Basophils % (Manual) Nucleated RBC % Seg Neutrophils # Seg Neutrophils # Man Lymphocytes # (Manual) Monocytes # (Manual) Basophils # (Manual) PT INR APTT Fibrinogen D-Dimer ABG pH POC ABG pCO2 POC ABG pO2 ABG Hemoglobin ABG Oxyhemoglobin ABG Sodium ABG Potassium ABG Chloride ABG Glucose Sodium 133 L Potassium 3.5 L Chloride 107.7 H Carbon Dioxide 15 L BUN 29 H Creatinine 2.6 H Glucose POC Glucose 63 L 292 H Lactic Acid Calcium 7.9 L Magnesium Iron Total Bilirubin Direct Bilirubin AST ALT Alkaline Phosphatase Ammonia CK-MB (CK-2) CK-MB (CK-2) Rel Index Total Protein Albumin Arterial Blood Glucose Arterial Blood Ionized Calcium Urine Creatinine Urine Total Protein Salicylates Acetaminophen Crossmatch 10/17/20 10/17/20 10/17/20 02:04 03:08 03:55 WBC RBC Hgb Hct MCV MCH MCHC RDW Plt Count [place] % (Auto) [place] # (Auto) Seg Neutrophils % Seg Neuts % (Manual) Lymphocytes % (Manual) Monocytes % (Manual) Basophils % (Manual) Nucleated RBC % Seg Neutrophils # Seg Neutrophils # Man Lymphocytes # (Manual) Monocytes # (Manual) Basophils # (Manual) PT INR APTT Fibrinogen D-Dimer ABG pH POC ABG pCO2 POC ABG pO2 ABG Hemoglobin ABG Oxyhemoglobin ABG Sodium ABG Potassium ABG Chloride ABG Glucose Sodium Potassium Chloride Carbon Dioxide BUN Creatinine Glucose POC Glucose 200 H 173 H 161 H Lactic Acid Calcium Magnesium Iron Total Bilirubin Direct Bilirubin AST ALT Alkaline Phosphatase Ammonia CK-MB (CK-2) CK-MB (CK-2) Rel Index Total Protein Albumin Arterial Blood Glucose Arterial Blood Ionized Calcium Urine Creatinine Urine Total Protein Salicylates Acetaminophen Crossmatch 10/17/20 10/17/20 10/17/20 04:00 04:49 04:49 WBC 17.7 H RBC 3.21 L Hgb 7.5 L Hct 25.4 L MCV 79 L MCH 24 L MCHC 30 L RDW 34.0 H Plt Count 40 L [place] % (Auto) [place] # (Auto) Seg Neutrophils % Seg Neuts % (Manual) Lymphocytes % (Manual) 3.0 L Monocytes % (Manual) Basophils % (Manual) Nucleated RBC % 3.0 H Seg Neutrophils # Seg Neutrophils # Man 10.6 H Lymphocytes # (Manual) 0.5 L Monocytes # (Manual) 1.1 H Basophils # (Manual) PT INR APTT Fibrinogen D-Dimer ABG pH 7.116 L POC ABG pCO2 POC ABG pO2 61.1 L ABG Hemoglobin 8.4 L ABG Oxyhemoglobin 90.2 L ABG Sodium 125.0 L ABG Potassium 3.1 L ABG Chloride ABG Glucose 155 H Sodium 133 L Potassium 3.3 L Chloride Carbon Dioxide 15 L BUN 29 H Creatinine 2.7 H Glucose 138 H POC Glucose Lactic Acid Calcium 7.8 L Magnesium Iron Total Bilirubin Direct Bilirubin AST ALT Alkaline Phosphatase Ammonia CK-MB (CK-2) CK-MB (CK-2) Rel Index Total Protein Albumin Arterial Blood Glucose 155 H Arterial Blood Ionized Calcium Urine Creatinine Urine Total Protein Salicylates Acetaminophen Crossmatch 10/17/20 10/17/20 10/17/20 04:58 06:01 07:50 WBC RBC Hgb Hct MCV MCH MCHC RDW Plt Count [place] % (Auto) [place] # (Auto) Seg Neutrophils % Seg Neuts % (Manual) Lymphocytes % (Manual) Monocytes % (Manual) Basophils % (Manual) Nucleated RBC % Seg Neutrophils # Seg Neutrophils # Man Lymphocytes # (Manual) Monocytes # (Manual) Basophils # (Manual) PT INR APTT Fibrinogen D-Dimer ABG pH POC ABG pCO2 POC ABG pO2 ABG Hemoglobin ABG Oxyhemoglobin ABG Sodium ABG Potassium ABG Chloride ABG Glucose Sodium Potassium Chloride Carbon Dioxide BUN Creatinine Glucose POC Glucose 137 H 119 H 106 H Lactic Acid Calcium Magnesium Iron Total Bilirubin Direct Bilirubin AST ALT Alkaline Phosphatase Ammonia CK-MB (CK-2) CK-MB (CK-2) Rel Index Total Protein Albumin Arterial Blood Glucose Arterial Blood Ionized Calcium Urine Creatinine Urine Total Protein Salicylates Acetaminophen Crossmatch 10/17/20 10/17/20 10/17/20 11:50 15:11 18:11 WBC RBC Hgb Hct MCV MCH MCHC RDW Plt Count [place] % (Auto) [place] # (Auto) Seg Neutrophils % Seg Neuts % (Manual) Lymphocytes % (Manual) Monocytes % (Manual) Basophils % (Manual) Nucleated RBC % Seg Neutrophils # Seg Neutrophils # Man Lymphocytes # (Manual) Monocytes # (Manual) Basophils # (Manual) PT INR APTT Fibrinogen D-Dimer ABG pH POC ABG pCO2 POC ABG pO2 ABG Hemoglobin ABG Oxyhemoglobin ABG Sodium ABG Potassium ABG Chloride ABG Glucose Sodium Potassium Chloride Carbon Dioxide BUN Creatinine Glucose POC Glucose 111 H 114 H 137 H Lactic Acid Calcium Magnesium Iron Total Bilirubin Direct Bilirubin AST ALT Alkaline Phosphatase Ammonia CK-MB (CK-2) CK-MB (CK-2) Rel Index Total Protein Albumin Arterial Blood Glucose Arterial Blood Ionized Calcium Urine Creatinine Urine Total Protein Salicylates Acetaminophen Crossmatch 10/17/20 10/17/20 10/18/20 19:51 23:32 04:00 WBC RBC Hgb Hct MCV MCH MCHC RDW Plt Count [place] % (Auto) [place] # (Auto) Seg Neutrophils % Seg Neuts % (Manual) Lymphocytes % (Manual) Monocytes % (Manual) Basophils % (Manual) Nucleated RBC % Seg Neutrophils # Seg Neutrophils # Man Lymphocytes # (Manual) Monocytes # (Manual) Basophils # (Manual) PT INR APTT Fibrinogen D-Dimer ABG pH 7.276 L POC ABG pCO2 POC ABG pO2 77.7 L ABG Hemoglobin 7.2 L ABG Oxyhemoglobin ABG Sodium 122.6 L ABG Potassium ABG Chloride ABG Glucose 113 H Sodium Potassium Chloride Carbon Dioxide BUN Creatinine Glucose POC Glucose 130 H 114 H Lactic Acid Calcium Magnesium Iron Total Bilirubin Direct Bilirubin AST ALT Alkaline Phosphatase Ammonia CK-MB (CK-2) CK-MB (CK-2) Rel Index Total Protein Albumin Arterial Blood Glucose 113 H Arterial Blood Ionized Calcium Urine Creatinine Urine Total Protein Salicylates Acetaminophen Crossmatch 10/18/20 10/18/20 10/18/20 04:06 04:06 04:13 WBC RBC Hgb Hct MCV MCH MCHC RDW Plt Count [place] % (Auto) [place] # (Auto) Seg Neutrophils % Seg Neuts % (Manual) Lymphocytes % (Manual) Monocytes % (Manual) Basophils % (Manual) Nucleated RBC % Seg Neutrophils # Seg Neutrophils # Man Lymphocytes # (Manual) Monocytes # (Manual) Basophils # (Manual) PT 23.5 H INR 2.05 H APTT Fibrinogen D-Dimer ABG pH POC ABG pCO2 POC ABG pO2 ABG Hemoglobin ABG Oxyhemoglobin ABG Sodium ABG Potassium ABG Chloride ABG Glucose Sodium 123 L D Potassium Chloride 97.9 L Carbon Dioxide 16 L BUN 31 H Creatinine 3.1 H Glucose 113 H POC Glucose 108 H Lactic Acid Calcium 7.4 L Magnesium Iron Total Bilirubin Direct Bilirubin AST ALT Alkaline Phosphatase Ammonia CK-MB (CK-2) CK-MB (CK-2) Rel Index Total Protein Albumin Arterial Blood Glucose Arterial Blood Ionized Calcium Urine Creatinine Urine Total Protein Salicylates Acetaminophen Crossmatch 10/18/20 10/18/20 10/18/20 10:03 14:12 19:08 WBC RBC Hgb Hct MCV MCH MCHC RDW Plt Count [place] % (Auto) [place] # (Auto) Seg Neutrophils % Seg Neuts % (Manual) Lymphocytes % (Manual) Monocytes % (Manual) Basophils % (Manual) Nucleated RBC % Seg Neutrophils # Seg Neutrophils # Man Lymphocytes # (Manual) Monocytes # (Manual) Basophils # (Manual) PT INR APTT Fibrinogen D-Dimer ABG pH POC ABG pCO2 POC ABG pO2 ABG Hemoglobin ABG Oxyhemoglobin ABG Sodium ABG Potassium ABG Chloride ABG Glucose Sodium Potassium Chloride Carbon Dioxide BUN Creatinine Glucose POC Glucose 139 H 112 H Lactic Acid Calcium Magnesium Iron Total Bilirubin Direct Bilirubin AST ALT Alkaline Phosphatase Ammonia CK-MB (CK-2) CK-MB (CK-2) Rel Index Total Protein Albumin Arterial Blood Glucose Arterial Blood Ionized Calcium Urine Creatinine Urine Total Protein Salicylates Acetaminophen Crossmatch See Detail 10/18/20 10/19/20 10/19/20 Unknown 02:02 04:00 WBC 19.8 H RBC 2.95 L Hgb 6.9 L Hct 22.2 L MCV 75 L MCH 24 L MCHC 31 L RDW 33.6 H Plt Count 28 L [place] % (Auto) [place] # (Auto) Seg Neutrophils % Seg Neuts % (Manual) Lymphocytes % (Manual) Monocytes % (Manual) Basophils % (Manual) Nucleated RBC % Seg Neutrophils # Seg Neutrophils # Man Lymphocytes # (Manual) Monocytes # (Manual) Basophils # (Manual) PT INR APTT Fibrinogen D-Dimer ABG pH 7.234 L POC ABG pCO2 POC ABG pO2 53.9 L ABG Hemoglobin 8.9 L ABG Oxyhemoglobin 86.6 L ABG Sodium 118.1 L ABG Potassium ABG Chloride 94.0 L ABG Glucose 61 L Sodium Potassium Chloride Carbon Dioxide BUN Creatinine Glucose POC Glucose 64 L Lactic Acid Calcium Magnesium Iron Total Bilirubin Direct Bilirubin AST ALT Alkaline Phosphatase Ammonia CK-MB (CK-2) CK-MB (CK-2) Rel Index Total Protein Albumin Arterial Blood Glucose 61 L Arterial Blood Ionized Calcium 4.5 L Urine Creatinine Urine Total Protein Salicylates Acetaminophen Crossmatch 10/19/20 10/19/20 10/19/20 04:51 04:51 05:43 WBC 18.2 H RBC 3.26 L Hgb 7.9 L Hct 24.6 L MCV 76 L MCH 24 L MCHC RDW 30.7 H Plt Count 41 L [place] % (Auto) [place] # (Auto) Seg Neutrophils % Seg Neuts % (Manual) Lymphocytes % (Manual) Monocytes % (Manual) Basophils % (Manual) Nucleated RBC % Seg Neutrophils # Seg Neutrophils # Man Lymphocytes # (Manual) Monocytes # (Manual) Basophils # (Manual) PT INR APTT Fibrinogen D-Dimer ABG pH POC ABG pCO2 POC ABG pO2 ABG Hemoglobin ABG Oxyhemoglobin ABG Sodium ABG Potassium ABG Chloride ABG Glucose Sodium 122 L Potassium Chloride 94.6 L Carbon Dioxide 17 L BUN 33 H Creatinine 3.5 H Glucose 63 L POC Glucose 54 L Lactic Acid Calcium 7.3 L Magnesium Iron Total Bilirubin 1.50 H Direct Bilirubin 0.9 H AST ALT Alkaline Phosphatase 154 H Ammonia CK-MB (CK-2) CK-MB (CK-2) Rel Index Total Protein 4.2 L Albumin 1.9 L Arterial Blood Glucose Arterial Blood Ionized Calcium Urine Creatinine Urine Total Protein Salicylates Acetaminophen Crossmatch 10/19/20 10/19/20 10/19/20 11:23 11:45 14:24 WBC RBC Hgb Hct MCV MCH MCHC RDW Plt Count [place] % (Auto) [place] # (Auto) Seg Neutrophils % Seg Neuts % (Manual) Lymphocytes % (Manual) Monocytes % (Manual) Basophils % (Manual) Nucleated RBC % Seg Neutrophils # Seg Neutrophils # Man Lymphocytes # (Manual) Monocytes # (Manual) Basophils # (Manual) PT INR APTT Fibrinogen D-Dimer ABG pH POC ABG pCO2 POC ABG pO2 ABG Hemoglobin ABG Oxyhemoglobin ABG Sodium ABG Potassium ABG Chloride ABG Glucose Sodium Potassium Chloride Carbon Dioxide BUN Creatinine Glucose POC Glucose 47 L 117 H 47 L Lactic Acid Calcium Magnesium Iron Total Bilirubin Direct Bilirubin AST ALT Alkaline Phosphatase Ammonia CK-MB (CK-2) CK-MB (CK-2) Rel Index Total Protein Albumin Arterial Blood Glucose Arterial Blood Ionized Calcium Urine Creatinine Urine Total Protein Salicylates Acetaminophen Crossmatch 10/19/20 10/19/20 10/19/20 16:31 20:04 20:19 WBC RBC Hgb Hct MCV MCH MCHC RDW Plt Count [place] % (Auto) [place] # (Auto) Seg Neutrophils % Seg Neuts % (Manual) Lymphocytes % (Manual) Monocytes % (Manual) Basophils % (Manual) Nucleated RBC % Seg Neutrophils # Seg Neutrophils # Man Lymphocytes # (Manual) Monocytes # (Manual) Basophils # (Manual) PT INR APTT Fibrinogen D-Dimer ABG pH POC ABG pCO2 POC ABG pO2 ABG Hemoglobin ABG Oxyhemoglobin ABG Sodium ABG Potassium ABG Chloride ABG Glucose Sodium Potassium Chloride Carbon Dioxide BUN Creatinine Glucose 59 L POC Glucose 58 L 49 L Lactic Acid Calcium Magnesium Iron Total Bilirubin Direct Bilirubin AST ALT Alkaline Phosphatase Ammonia CK-MB (CK-2) CK-MB (CK-2) Rel Index Total Protein Albumin Arterial Blood Glucose Arterial Blood Ionized Calcium Urine Creatinine Urine Total Protein Salicylates Acetaminophen Crossmatch 10/20/20 10/20/20 10/20/20 00:17 03:59 08:43 WBC 13.1 H RBC 3.42 L Hgb 8.3 L Hct 25.3 L MCV 74 L MCH 24 L MCHC RDW 31.4 H Plt Count 35 L [place] % (Auto) [place] # (Auto) Seg Neutrophils % Seg Neuts % (Manual) Lymphocytes % (Manual) Monocytes % (Manual) Basophils % (Manual) Nucleated RBC % Seg Neutrophils # Seg Neutrophils # Man Lymphocytes # (Manual) Monocytes # (Manual) Basophils # (Manual) PT INR APTT Fibrinogen D-Dimer ABG pH POC ABG pCO2 POC ABG pO2 ABG Hemoglobin ABG Oxyhemoglobin ABG Sodium ABG Potassium ABG Chloride ABG Glucose Sodium Potassium Chloride Carbon Dioxide BUN Creatinine Glucose POC Glucose 29 L 47 L Lactic Acid Calcium Magnesium Iron Total Bilirubin Direct Bilirubin AST ALT Alkaline Phosphatase Ammonia CK-MB (CK-2) CK-MB (CK-2) Rel Index Total Protein Albumin Arterial Blood Glucose Arterial Blood Ionized Calcium Urine Creatinine Urine Total Protein Salicylates Acetaminophen Crossmatch 10/20/20 10/20/20 10/20/20 08:43 08:43 09:56 WBC RBC Hgb Hct MCV MCH MCHC RDW Plt Count [place] % (Auto) [place] # (Auto) Seg Neutrophils % Seg Neuts % (Manual) Lymphocytes % (Manual) Monocytes % (Manual) Basophils % (Manual) Nucleated RBC % Seg Neutrophils # Seg Neutrophils # Man Lymphocytes # (Manual) Monocytes # (Manual) Basophils # (Manual) PT 30.1 H INR 2.82 H APTT Fibrinogen D-Dimer ABG pH POC ABG pCO2 POC ABG pO2 ABG Hemoglobin ABG Oxyhemoglobin ABG Sodium ABG Potassium ABG Chloride ABG Glucose Sodium 119 L* Potassium Chloride 90.7 L Carbon Dioxide 20 L BUN 35 H Creatinine 3.3 H Glucose 57 L POC Glucose 61 L Lactic Acid Calcium 7.7 L Magnesium 1.30 L Iron Total Bilirubin 1.60 H Direct Bilirubin AST ALT Alkaline Phosphatase 152 H Ammonia CK-MB (CK-2) CK-MB (CK-2) Rel Index Total Protein 4.5 L Albumin 1.6 L Arterial Blood Glucose Arterial Blood Ionized Calcium Urine Creatinine Urine Total Protein Salicylates Acetaminophen Crossmatch 10/20/20 10/20/20 10/20/20 15:35 17:30 20:17 WBC RBC Hgb Hct MCV MCH MCHC RDW Plt Count [place] % (Auto) [place] # (Auto) Seg Neutrophils % Seg Neuts % (Manual) Lymphocytes % (Manual) Monocytes % (Manual) Basophils % (Manual) Nucleated RBC % Seg Neutrophils # Seg Neutrophils # Man Lymphocytes # (Manual) Monocytes # (Manual) Basophils # (Manual) PT INR APTT Fibrinogen D-Dimer ABG pH POC ABG pCO2 POC ABG pO2 ABG Hemoglobin ABG Oxyhemoglobin ABG Sodium ABG Potassium ABG Chloride ABG Glucose Sodium 121 L 120 L Potassium Chloride Carbon Dioxide BUN Creatinine Glucose POC Glucose 61 L Lactic Acid Calcium Magnesium Iron Total Bilirubin Direct Bilirubin AST ALT Alkaline Phosphatase Ammonia CK-MB (CK-2) CK-MB (CK-2) Rel Index Total Protein Albumin Arterial Blood Glucose Arterial Blood Ionized Calcium Urine Creatinine Urine Total Protein Salicylates Acetaminophen Crossmatch 10/20/20 10/20/20 10/21/20 23:00 23:37 01:00 WBC RBC Hgb Hct MCV MCH MCHC RDW Plt Count [place] % (Auto) [place] # (Auto) Seg Neutrophils % Seg Neuts % (Manual) Lymphocytes % (Manual) Monocytes % (Manual) Basophils % (Manual) Nucleated RBC % Seg Neutrophils # Seg Neutrophils # Man Lymphocytes # (Manual) Monocytes # (Manual) Basophils # (Manual) PT INR APTT Fibrinogen D-Dimer ABG pH POC ABG pCO2 POC ABG pO2 ABG Hemoglobin ABG Oxyhemoglobin ABG Sodium ABG Potassium ABG Chloride ABG Glucose Sodium 121 L Potassium Chloride Carbon Dioxide BUN Creatinine Glucose POC Glucose 33 L 36 L Lactic Acid Calcium Magnesium Iron Total Bilirubin Direct Bilirubin AST ALT Alkaline Phosphatase Ammonia CK-MB (CK-2) CK-MB (CK-2) Rel Index Total Protein Albumin Arterial Blood Glucose Arterial Blood Ionized Calcium Urine Creatinine Urine Total Protein Salicylates Acetaminophen Crossmatch 10/21/20 10/21/20 10/21/20 02:31 04:00 05:22 WBC RBC Hgb Hct MCV MCH MCHC RDW Plt Count [place] % (Auto) [place] # (Auto) Seg Neutrophils % Seg Neuts % (Manual) Lymphocytes % (Manual) Monocytes % (Manual) Basophils % (Manual) Nucleated RBC % Seg Neutrophils # Seg Neutrophils # Man Lymphocytes # (Manual) Monocytes # (Manual) Basophils # (Manual) PT INR APTT Fibrinogen D-Dimer ABG pH POC ABG pCO2 POC ABG pO2 66.6 L ABG Hemoglobin 8.7 L ABG Oxyhemoglobin 92.1 L ABG Sodium 117.9 L ABG Potassium 3.2 L ABG Chloride 93.0 L ABG Glucose Sodium Potassium Chloride Carbon Dioxide BUN Creatinine Glucose POC Glucose 51 L 64 L Lactic Acid Calcium Magnesium Iron Total Bilirubin Direct Bilirubin AST ALT Alkaline Phosphatase Ammonia CK-MB (CK-2) CK-MB (CK-2) Rel Index Total Protein Albumin Arterial Blood Glucose Arterial Blood Ionized Calcium 4.4 L Urine Creatinine Urine Total Protein Salicylates Acetaminophen Crossmatch 10/21/20 10/21/20 10/21/20 05:50 05:50 10:32 WBC 11.1 H RBC 3.27 L Hgb 7.9 L Hct 23.9 L MCV 73 L MCH 24 L MCHC RDW 31.8 H Plt Count 26 L [place] % (Auto) [place] # (Auto) Seg Neutrophils % Seg Neuts % (Manual) Lymphocytes % (Manual) Monocytes % (Manual) Basophils % (Manual) Nucleated RBC % Seg Neutrophils # Seg Neutrophils # Man Lymphocytes # (Manual) Monocytes # (Manual) Basophils # (Manual) PT INR APTT Fibrinogen D-Dimer ABG pH POC ABG pCO2 POC ABG pO2 ABG Hemoglobin ABG Oxyhemoglobin ABG Sodium ABG Potassium ABG Chloride ABG Glucose Sodium 122 L Potassium 3.4 L Chloride 91.1 L Carbon Dioxide BUN 38 H Creatinine 3.2 H Glucose 56 L POC Glucose 68 L Lactic Acid Calcium 7.8 L Magnesium 1.60 L Iron Total Bilirubin Direct Bilirubin AST ALT Alkaline Phosphatase Ammonia CK-MB (CK-2) CK-MB (CK-2) Rel Index Total Protein Albumin Arterial Blood Glucose Arterial Blood Ionized Calcium Urine Creatinine Urine Total Protein Salicylates Acetaminophen Crossmatch 10/21/20 10/21/20 10/21/20 14:05 17:15 18:41 WBC RBC Hgb Hct MCV MCH MCHC RDW Plt Count [place] % (Auto) [place] # (Auto) Seg Neutrophils % Seg Neuts % (Manual) Lymphocytes % (Manual) Monocytes % (Manual) Basophils % (Manual) Nucleated RBC % Seg Neutrophils # Seg Neutrophils # Man Lymphocytes # (Manual) Monocytes # (Manual) Basophils # (Manual) PT INR APTT Fibrinogen D-Dimer ABG pH POC ABG pCO2 POC ABG pO2 ABG Hemoglobin ABG Oxyhemoglobin ABG Sodium ABG Potassium ABG Chloride ABG Glucose Sodium Potassium Chloride Carbon Dioxide BUN Creatinine Glucose POC Glucose 61 L 53 L 110 H Lactic Acid Calcium Magnesium Iron Total Bilirubin Direct Bilirubin AST ALT Alkaline Phosphatase Ammonia CK-MB (CK-2) CK-MB (CK-2) Rel Index Total Protein Albumin Arterial Blood Glucose Arterial Blood Ionized Calcium Urine Creatinine Urine Total Protein Salicylates Acetaminophen Crossmatch 10/21/20 10/21/20 10/21/20 21:08 22:20 Unknown WBC RBC Hgb Hct MCV MCH MCHC RDW Plt Count [place] % (Auto) [place] # (Auto) Seg Neutrophils % Seg Neuts % (Manual) Lymphocytes % (Manual) Monocytes % (Manual) Basophils % (Manual) Nucleated RBC % Seg Neutrophils # Seg Neutrophils # Man Lymphocytes # (Manual) Monocytes # (Manual) Basophils # (Manual) PT INR APTT Fibrinogen D-Dimer ABG pH POC ABG pCO2 POC ABG pO2 ABG Hemoglobin ABG Oxyhemoglobin ABG Sodium ABG Potassium ABG Chloride ABG Glucose Sodium 123 L 125 L Potassium 3.2 L Chloride 94.1 L Carbon Dioxide BUN 40 H Creatinine 3.3 H Glucose 64 L POC Glucose 117 H Lactic Acid Calcium 7.6 L Magnesium Iron Total Bilirubin Direct Bilirubin AST ALT Alkaline Phosphatase Ammonia CK-MB (CK-2) CK-MB (CK-2) Rel Index Total Protein Albumin Arterial Blood Glucose Arterial Blood Ionized Calcium Urine Creatinine Urine Total Protein Salicylates Acetaminophen Crossmatch 10/21/20 10/21/20 10/22/20 Unknown Unknown 02:43 WBC RBC 3.40 L Hgb 8.4 L Hct 24.8 L MCV 73 L MCH 25 L MCHC RDW 31.5 H Plt Count 21 L [place] % (Auto) [place] # (Auto) Seg Neutrophils % Seg Neuts % (Manual) 83.0 H Lymphocytes % (Manual) 10.0 L Monocytes % (Manual) Basophils % (Manual) Nucleated RBC % 2.0 H Seg Neutrophils # Seg Neutrophils # Man 9.0 H Lymphocytes # (Manual) 1.1 L Monocytes # (Manual) Basophils # (Manual) PT 27.0 H INR 2.44 H APTT 61.4 H* Fibrinogen 482 H D-Dimer 1992.93 H ABG pH POC ABG pCO2 POC ABG pO2 ABG Hemoglobin ABG Oxyhemoglobin ABG Sodium ABG Potassium ABG Chloride ABG Glucose Sodium 122 L Potassium 3.1 L Chloride 92.9 L Carbon Dioxide BUN 44 H Creatinine 3.2 H Glucose POC Glucose Lactic Acid Calcium 7.8 L Magnesium Iron Total Bilirubin Direct Bilirubin AST ALT Alkaline Phosphatase Ammonia CK-MB (CK-2) CK-MB (CK-2) Rel Index Total Protein Albumin Arterial Blood Glucose Arterial Blood Ionized Calcium Urine Creatinine Urine Total Protein Salicylates Acetaminophen Crossmatch 10/22/20 10/22/20 10/22/20 04:00 06:00 20:00 WBC RBC 3.29 L Hgb 8.0 L Hct 24.3 L MCV 74 L MCH 24 L MCHC RDW 32.2 H Plt Count 21 L [place] % (Auto) [place] # (Auto) Seg Neutrophils % Seg Neuts % (Manual) Lymphocytes % (Manual) Monocytes % (Manual) Basophils % (Manual) Nucleated RBC % Seg Neutrophils # Seg Neutrophils # Man Lymphocytes # (Manual) Monocytes # (Manual) Basophils # (Manual) PT INR APTT Fibrinogen D-Dimer ABG pH POC ABG pCO2 29.1 L POC ABG pO2 64.1 L ABG Hemoglobin 8.2 L ABG Oxyhemoglobin 90.6 L ABG Sodium 118.8 L ABG Potassium ABG Chloride 96.0 L ABG Glucose 117 H Sodium 126 L Potassium Chloride 95.8 L Carbon Dioxide 21 L BUN 50 H Creatinine 3.4 H Glucose POC Glucose Lactic Acid Calcium 7.9 L Magnesium Iron Total Bilirubin Direct Bilirubin AST ALT Alkaline Phosphatase Ammonia CK-MB (CK-2) CK-MB (CK-2) Rel Index Total Protein Albumin Arterial Blood Glucose 117 H Arterial Blood Ionized Calcium Urine Creatinine Urine Total Protein Salicylates Acetaminophen Crossmatch 10/23/20 10/23/20 10/23/20 04:00 05:35 05:35 WBC RBC 2.94 L Hgb 7.3 L Hct 21.3 L MCV 72 L MCH 25 L MCHC RDW 32.3 H Plt Count 56 L D [place] % (Auto) [place] # (Auto) Seg Neutrophils % Seg Neuts % (Manual) 83.0 H Lymphocytes % (Manual) 9.0 L Monocytes % (Manual) Basophils % (Manual) Nucleated RBC % 3.0 H Seg Neutrophils # Seg Neutrophils # Man Lymphocytes # (Manual) 0.7 L Monocytes # (Manual) Basophils # (Manual) PT INR APTT Fibrinogen D-Dimer ABG pH POC ABG pCO2 29.0 L POC ABG pO2 ABG Hemoglobin 7.7 L ABG Oxyhemoglobin ABG Sodium 120.4 L ABG Potassium ABG Chloride 97.0 L ABG Glucose Sodium 128 L Potassium Chloride 96.7 L Carbon Dioxide BUN 56 H Creatinine 3.4 H Glucose POC Glucose Lactic Acid Calcium Magnesium Iron Total Bilirubin Direct Bilirubin AST ALT Alkaline Phosphatase Ammonia CK-MB (CK-2) CK-MB (CK-2) Rel Index Total Protein Albumin Arterial Blood Glucose Arterial Blood Ionized Calcium Urine Creatinine Urine Total Protein Salicylates Acetaminophen Crossmatch 10/23/20 10/24/20 10/24/20 21:01 03:00 05:27 WBC RBC 2.98 L Hgb 7.4 L Hct 21.8 L MCV 73 L MCH 25 L MCHC RDW 32.2 H Plt Count 56 L [place] % (Auto) [place] # (Auto) Seg Neutrophils % Seg Neuts % (Manual) Lymphocytes % (Manual) Monocytes % (Manual) Basophils % (Manual) Nucleated RBC % Seg Neutrophils # Seg Neutrophils # Man Lymphocytes # (Manual) Monocytes # (Manual) Basophils # (Manual) PT INR APTT Fibrinogen D-Dimer ABG pH 7.490 H POC ABG pCO2 26.8 L POC ABG pO2 ABG Hemoglobin 3.3 L ABG Oxyhemoglobin 83.6 L ABG Sodium 118.0 L ABG Potassium ABG Chloride 97.0 L ABG Glucose Sodium Potassium Chloride Carbon Dioxide BUN Creatinine Glucose POC Glucose > 600 H Lactic Acid Calcium Magnesium Iron Total Bilirubin Direct Bilirubin AST ALT Alkaline Phosphatase Ammonia CK-MB (CK-2) CK-MB (CK-2) Rel Index Total Protein Albumin Arterial Blood Glucose Arterial Blood Ionized Calcium 4.5 L Urine Creatinine Urine Total Protein Salicylates Acetaminophen Crossmatch 10/24/20 10/24/20 10/24/20 05:27 05:27 10:07 WBC RBC Hgb Hct MCV MCH MCHC RDW Plt Count [place] % (Auto) [place] # (Auto) Seg Neutrophils % Seg Neuts % (Manual) Lymphocytes % (Manual) Monocytes % (Manual) Basophils % (Manual) Nucleated RBC % Seg Neutrophils # Seg Neutrophils # Man Lymphocytes # (Manual) Monocytes # (Manual) Basophils # (Manual) PT 20.4 H INR 1.70 H APTT Fibrinogen D-Dimer ABG pH POC ABG pCO2 POC ABG pO2 ABG Hemoglobin ABG Oxyhemoglobin ABG Sodium ABG Potassium ABG Chloride ABG Glucose Sodium 123 L Potassium 3.5 L Chloride 93.3 L Carbon Dioxide 20 L BUN 66 H Creatinine 3.9 H Glucose POC Glucose 110 H Lactic Acid Calcium 8.1 L Magnesium Iron Total Bilirubin Direct Bilirubin AST 54 H ALT Alkaline Phosphatase 316 H Ammonia CK-MB (CK-2) CK-MB (CK-2) Rel Index Total Protein 5.1 L Albumin 1.7 L Arterial Blood Glucose Arterial Blood Ionized Calcium Urine Creatinine Urine Total Protein Salicylates Acetaminophen Crossmatch 10/24/20 10/24/20 10/24/20 18:24 23:11 23:28 WBC RBC Hgb Hct MCV MCH MCHC RDW Plt Count [place] % (Auto) [place] # (Auto) Seg Neutrophils % Seg Neuts % (Manual) Lymphocytes % (Manual) Monocytes % (Manual) Basophils % (Manual) Nucleated RBC % Seg Neutrophils # Seg Neutrophils # Man Lymphocytes # (Manual) Monocytes # (Manual) Basophils # (Manual) PT INR APTT Fibrinogen D-Dimer ABG pH POC ABG pCO2 POC ABG pO2 ABG Hemoglobin ABG Oxyhemoglobin ABG Sodium ABG Potassium ABG Chloride ABG Glucose Sodium Potassium Chloride Carbon Dioxide BUN Creatinine Glucose 142 H POC Glucose 121 H 137 H Lactic Acid Calcium Magnesium Iron Total Bilirubin Direct Bilirubin AST ALT Alkaline Phosphatase Ammonia CK-MB (CK-2) CK-MB (CK-2) Rel Index Total Protein Albumin Arterial Blood Glucose Arterial Blood Ionized Calcium Urine Creatinine Urine Total Protein Salicylates Acetaminophen Crossmatch 10/25/20 10/25/20 10/25/20 05:22 05:22 05:28 WBC RBC Hgb Hct MCV MCH MCHC RDW Plt Count [place] % (Auto) [place] # (Auto) Seg Neutrophils % Seg Neuts % (Manual) Lymphocytes % (Manual) Monocytes % (Manual) Basophils % (Manual) Nucleated RBC % Seg Neutrophils # Seg Neutrophils # Man Lymphocytes # (Manual) Monocytes # (Manual) Basophils # (Manual) PT INR APTT Fibrinogen D-Dimer ABG pH POC ABG pCO2 POC ABG pO2 ABG Hemoglobin ABG Oxyhemoglobin ABG Sodium ABG Potassium ABG Chloride ABG Glucose Sodium 133 L D Potassium Chloride Carbon Dioxide BUN 55 H Creatinine 3.1 H Glucose 127 H 127 H POC Glucose 121 H Lactic Acid Calcium Magnesium Iron Total Bilirubin Direct Bilirubin AST ALT Alkaline Phosphatase Ammonia CK-MB (CK-2) CK-MB (CK-2) Rel Index Total Protein Albumin Arterial Blood Glucose Arterial Blood Ionized Calcium Urine Creatinine Urine Total Protein Salicylates Acetaminophen Crossmatch 10/25/20 10/25/20 10/25/20 08:35 11:39 15:09 WBC RBC 2.84 L Hgb 7.0 L Hct 20.9 L MCV 74 L MCH 25 L MCHC RDW 30.8 H Plt Count 101 L [place] % (Auto) [place] # (Auto) Seg Neutrophils % Seg Neuts % (Manual) Lymphocytes % (Manual) Monocytes % (Manual) Basophils % (Manual) Nucleated RBC % Seg Neutrophils # Seg Neutrophils # Man Lymphocytes # (Manual) Monocytes # (Manual) Basophils # (Manual) PT INR APTT Fibrinogen D-Dimer ABG pH POC ABG pCO2 POC ABG pO2 ABG Hemoglobin ABG Oxyhemoglobin ABG Sodium ABG Potassium ABG Chloride ABG Glucose Sodium Potassium Chloride Carbon Dioxide BUN Creatinine Glucose 179 H POC Glucose 165 H Lactic Acid Calcium Magnesium Iron Total Bilirubin Direct Bilirubin AST ALT Alkaline Phosphatase Ammonia CK-MB (CK-2) CK-MB (CK-2) Rel Index Total Protein Albumin Arterial Blood Glucose Arterial Blood Ionized Calcium Urine Creatinine Urine Total Protein Salicylates Acetaminophen Crossmatch 10/25/20 10/25/20 10/25/20 15:15 17:51 23:10 WBC RBC Hgb Hct MCV MCH MCHC RDW Plt Count [place] % (Auto) [place] # (Auto) Seg Neutrophils % Seg Neuts % (Manual) Lymphocytes % (Manual) Monocytes % (Manual) Basophils % (Manual) Nucleated RBC % Seg Neutrophils # Seg Neutrophils # Man Lymphocytes # (Manual) Monocytes # (Manual) Basophils # (Manual) PT INR APTT Fibrinogen D-Dimer ABG pH 7.478 H POC ABG pCO2 POC ABG pO2 39.0 L ABG Hemoglobin 7.7 L ABG Oxyhemoglobin 72.9 L ABG Sodium 133.3 L ABG Potassium ABG Chloride ABG Glucose 189 H Sodium Potassium Chloride Carbon Dioxide BUN Creatinine Glucose POC Glucose 132 H 140 H Lactic Acid Calcium Magnesium Iron Total Bilirubin Direct Bilirubin AST ALT Alkaline Phosphatase Ammonia CK-MB (CK-2) CK-MB (CK-2) Rel Index Total Protein Albumin Arterial Blood Glucose 189 H Arterial Blood Ionized Calcium 4.4 L Urine Creatinine Urine Total Protein Salicylates Acetaminophen Crossmatch 10/26/20 10/26/20 10/26/20 04:30 11:00 11:28 WBC RBC 2.94 L Hgb 7.3 L Hct 22.9 L MCV 76 L MCH 25 L MCHC RDW 29.8 H Plt Count 138 L [place] % (Auto) [place] # (Auto) Seg Neutrophils % Seg Neuts % (Manual) Lymphocytes % (Manual) Monocytes % (Manual) Basophils % (Manual) Nucleated RBC % Seg Neutrophils # Seg Neutrophils # Man Lymphocytes # (Manual) Monocytes # (Manual) Basophils # (Manual) PT INR APTT Fibrinogen D-Dimer ABG pH POC ABG pCO2 POC ABG pO2 ABG Hemoglobin ABG Oxyhemoglobin ABG Sodium ABG Potassium ABG Chloride ABG Glucose Sodium 136 L Potassium Chloride Carbon Dioxide BUN 44 H Creatinine 2.7 H Glucose POC Glucose 137 H Lactic Acid Calcium 8.1 L Magnesium Iron Total Bilirubin Direct Bilirubin AST ALT Alkaline Phosphatase Ammonia CK-MB (CK-2) CK-MB (CK-2) Rel Index Total Protein Albumin Arterial Blood Glucose Arterial Blood Ionized Calcium Urine Creatinine Urine Total Protein Salicylates Acetaminophen Crossmatch 10/26/20 10/26/20 10/27/20 17:06 23:11 04:30 WBC RBC Hgb Hct MCV MCH MCHC RDW Plt Count [place] % (Auto) [place] # (Auto) Seg Neutrophils % Seg Neuts % (Manual) Lymphocytes % (Manual) Monocytes % (Manual) Basophils % (Manual) Nucleated RBC % Seg Neutrophils # Seg Neutrophils # Man Lymphocytes # (Manual) Monocytes # (Manual) Basophils # (Manual) PT INR APTT Fibrinogen D-Dimer ABG pH POC ABG pCO2 POC ABG pO2 ABG Hemoglobin ABG Oxyhemoglobin ABG Sodium ABG Potassium ABG Chloride ABG Glucose Sodium Potassium Chloride Carbon Dioxide BUN 38 H Creatinine 2.5 H Glucose 108 H POC Glucose 116 H 108 H Lactic Acid Calcium Magnesium Iron Total Bilirubin Direct Bilirubin AST ALT Alkaline Phosphatase Ammonia CK-MB (CK-2) CK-MB (CK-2) Rel Index Total Protein Albumin Arterial Blood Glucose Arterial Blood Ionized Calcium Urine Creatinine Urine Total Protein Salicylates Acetaminophen Crossmatch 10/27/20 10/27/20 10/27/20 04:30 04:57 12:50 WBC RBC 2.79 L Hgb 6.9 L Hct 21.3 L MCV 76 L MCH 25 L MCHC RDW 30.2 H Plt Count [place] % (Auto) [place] # (Auto) Seg Neutrophils % Seg Neuts % (Manual) Lymphocytes % (Manual) Monocytes % (Manual) Basophils % (Manual) Nucleated RBC % Seg Neutrophils # Seg Neutrophils # Man Lymphocytes # (Manual) Monocytes # (Manual) Basophils # (Manual) PT INR APTT Fibrinogen D-Dimer ABG pH POC ABG pCO2 POC ABG pO2 ABG Hemoglobin ABG Oxyhemoglobin ABG Sodium ABG Potassium ABG Chloride ABG Glucose Sodium Potassium Chloride Carbon Dioxide BUN Creatinine Glucose POC Glucose 106 H Lactic Acid Calcium Magnesium Iron Total Bilirubin Direct Bilirubin AST ALT Alkaline Phosphatase Ammonia CK-MB (CK-2) CK-MB (CK-2) Rel Index Total Protein Albumin Arterial Blood Glucose Arterial Blood Ionized Calcium Urine Creatinine Urine Total Protein Salicylates Acetaminophen Crossmatch See Detail 10/27/20 10/27/20 10/28/20 17:29 23:14 04:30 WBC 12.2 H RBC 3.07 L Hgb 7.8 L Hct 24.3 L MCV 79 L MCH 25 L MCHC RDW 29.5 H Plt Count [place] % (Auto) [place] # (Auto) Seg Neutrophils % Seg Neuts % (Manual) Lymphocytes % (Manual) Monocytes % (Manual) Basophils % (Manual) Nucleated RBC % Seg Neutrophils # Seg Neutrophils # Man Lymphocytes # (Manual) Monocytes # (Manual) Basophils # (Manual) PT INR APTT Fibrinogen D-Dimer ABG pH POC ABG pCO2 POC ABG pO2 ABG Hemoglobin ABG Oxyhemoglobin ABG Sodium ABG Potassium ABG Chloride ABG Glucose Sodium Potassium Chloride Carbon Dioxide BUN Creatinine Glucose POC Glucose 127 H 121 H Lactic Acid Calcium Magnesium Iron Total Bilirubin Direct Bilirubin AST ALT Alkaline Phosphatase Ammonia CK-MB (CK-2) CK-MB (CK-2) Rel Index Total Protein Albumin Arterial Blood Glucose Arterial Blood Ionized Calcium Urine Creatinine Urine Total Protein Salicylates Acetaminophen Crossmatch 10/28/20 10/28/20 10/28/20 04:30 11:26 23:15 WBC RBC Hgb Hct MCV MCH MCHC RDW Plt Count [place] % (Auto) [place] # (Auto) Seg Neutrophils % Seg Neuts % (Manual) Lymphocytes % (Manual) Monocytes % (Manual) Basophils % (Manual) Nucleated RBC % Seg Neutrophils # Seg Neutrophils # Man Lymphocytes # (Manual) Monocytes # (Manual) Basophils # (Manual) PT INR APTT Fibrinogen D-Dimer ABG pH POC ABG pCO2 POC ABG pO2 ABG Hemoglobin ABG Oxyhemoglobin ABG Sodium ABG Potassium ABG Chloride ABG Glucose Sodium Potassium 3.5 L Chloride Carbon Dioxide BUN 33 H Creatinine 2.2 H Glucose POC Glucose 127 H 111 H Lactic Acid Calcium Magnesium Iron Total Bilirubin Direct Bilirubin AST ALT Alkaline Phosphatase Ammonia CK-MB (CK-2) CK-MB (CK-2) Rel Index Total Protein Albumin Arterial Blood Glucose Arterial Blood Ionized Calcium Urine Creatinine Urine Total Protein Salicylates Acetaminophen Crossmatch 10/29/20 10/29/20 10/29/20 05:32 08:19 09:21 WBC 12.0 H RBC 3.03 L Hgb 7.7 L Hct 23.8 L MCV 78 L MCH 25 L MCHC RDW 30.1 H Plt Count [place] % (Auto) [place] # (Auto) Seg Neutrophils % Seg Neuts % (Manual) Lymphocytes % (Manual) Monocytes % (Manual) Basophils % (Manual) Nucleated RBC % Seg Neutrophils # Seg Neutrophils # Man Lymphocytes # (Manual) Monocytes # (Manual) Basophils # (Manual) PT INR APTT Fibrinogen D-Dimer ABG pH POC ABG pCO2 POC ABG pO2 ABG Hemoglobin ABG Oxyhemoglobin ABG Sodium ABG Potassium ABG Chloride ABG Glucose Sodium Potassium Chloride 97.7 L Carbon Dioxide 36 H BUN 36 H Creatinine 2.3 H Glucose 116 H POC Glucose 109 H Lactic Acid Calcium 8.2 L Magnesium Iron Total Bilirubin Direct Bilirubin AST ALT Alkaline Phosphatase Ammonia CK-MB (CK-2) CK-MB (CK-2) Rel Index Total Protein Albumin Arterial Blood Glucose Arterial Blood Ionized Calcium Urine Creatinine Urine Total Protein Salicylates Acetaminophen Crossmatch 10/30/20 10/30/20 10/30/20 04:46 04:46 11:29 WBC 11.4 H RBC 3.01 L Hgb 7.8 L Hct 24.0 L MCV 80 L MCH 26 L MCHC RDW 29.3 H Plt Count Hendry % (Auto) Hendry # (Auto) Seg Neutrophils % Seg Neuts % (Manual) Lymphocytes % (Manual) Monocytes % (Manual) Basophils % (Manual) Nucleated RBC % Seg Neutrophils # Seg Neutrophils # Man Lymphocytes # (Manual) Monocytes # (Manual) Basophils # (Manual) PT INR APTT Fibrinogen D-Dimer ABG pH POC ABG pCO2 POC ABG pO2 ABG Hemoglobin ABG Oxyhemoglobin ABG Sodium ABG Potassium ABG Chloride ABG Glucose Sodium 136 L Potassium Chloride 96.7 L Carbon Dioxide 33 H BUN 48 H Creatinine 3.2 H Glucose POC Glucose 126 H Lactic Acid Calcium 7.9 L Magnesium Iron Total Bilirubin Direct Bilirubin AST ALT Alkaline Phosphatase Ammonia CK-MB (CK-2) CK-MB (CK-2) Rel Index Total Protein Albumin Arterial Blood Glucose Arterial Blood Ionized Calcium Urine Creatinine Urine Total Protein Salicylates Acetaminophen Crossmatch 10/31/20 10/31/20 10/31/20 04:12 06:45 06:45 WBC RBC 2.96 L Hgb 7.5 L Hct 23.4 L MCV 79 L MCH 25 L MCHC RDW 28.9 H Plt Count Hendry % (Auto) Hendry # (Auto) Seg Neutrophils % Seg Neuts % (Manual) Lymphocytes % (Manual) Monocytes % (Manual) Basophils % (Manual) Nucleated RBC % Seg Neutrophils # Seg Neutrophils # Man Lymphocytes # (Manual) Monocytes # (Manual) Basophils # (Manual) PT INR APTT Fibrinogen D-Dimer ABG pH 7.468 H POC ABG pCO2 POC ABG pO2 50.9 L ABG Hemoglobin 8.2 L ABG Oxyhemoglobin 84.7 L ABG Sodium 130.7 L ABG Potassium ABG Chloride 97.0 L ABG Glucose 99 H Sodium Potassium Chloride Carbon Dioxide 31 H BUN 41 H Creatinine 2.6 H Glucose POC Glucose Lactic Acid Calcium Magnesium Iron Total Bilirubin Direct Bilirubin AST ALT Alkaline Phosphatase Ammonia CK-MB (CK-2) CK-MB (CK-2) Rel Index Total Protein Albumin Arterial Blood Glucose 99 H Arterial Blood Ionized Calcium Urine Creatinine Urine Total Protein Salicylates Acetaminophen Crossmatch 10/31/20 11/01/20 11/01/20 17:04 05:22 05:42 WBC RBC Hgb Hct MCV MCH MCHC RDW Plt Count Hendry % (Auto) Hendry # (Auto) Seg Neutrophils % Seg Neuts % (Manual) Lymphocytes % (Manual) Monocytes % (Manual) Basophils % (Manual) Nucleated RBC % Seg Neutrophils # Seg Neutrophils # Man Lymphocytes # (Manual) Monocytes # (Manual) Basophils # (Manual) PT INR APTT Fibrinogen D-Dimer ABG pH POC ABG pCO2 POC ABG pO2 ABG Hemoglobin ABG Oxyhemoglobin ABG Sodium ABG Potassium ABG Chloride ABG Glucose Sodium Potassium Chloride Carbon Dioxide BUN Creatinine Glucose POC Glucose 132 H 38 L 107 H Lactic Acid Calcium Magnesium Iron Total Bilirubin Direct Bilirubin AST ALT Alkaline Phosphatase Ammonia CK-MB (CK-2) CK-MB (CK-2) Rel Index Total Protein Albumin Arterial Blood Glucose Arterial Blood Ionized Calcium Urine Creatinine Urine Total Protein Salicylates Acetaminophen Crossmatch 11/01/20 11/01/20 11/01/20 11:41 Unknown Unknown WBC RBC 2.98 L Hgb 7.6 L Hct 23.5 L MCV 79 L MCH 26 L MCHC RDW 28.4 H Plt Count Hendry % (Auto) Hendry # (Auto) Seg Neutrophils % Seg Neuts % (Manual) 76.0 H Lymphocytes % (Manual) 1.0 L Monocytes % (Manual) Basophils % (Manual) Nucleated RBC % 10.0 H Seg Neutrophils # Seg Neutrophils # Man 7.9 H Lymphocytes # (Manual) 0.1 L Monocytes # (Manual) Basophils # (Manual) PT INR APTT Fibrinogen D-Dimer ABG pH POC ABG pCO2 POC ABG pO2 ABG Hemoglobin ABG Oxyhemoglobin ABG Sodium ABG Potassium ABG Chloride ABG Glucose Sodium 134 L Potassium Chloride 96.1 L Carbon Dioxide BUN 26 H Creatinine 2.2 H Glucose 46 L POC Glucose 67 L Lactic Acid Calcium 8.1 L Magnesium Iron Total Bilirubin Direct Bilirubin AST ALT Alkaline Phosphatase Ammonia CK-MB (CK-2) CK-MB (CK-2) Rel Index Total Protein Albumin Arterial Blood Glucose Arterial Blood Ionized Calcium Urine Creatinine Urine Total Protein Salicylates Acetaminophen Crossmatch Allied health notes reviewed: nursing
--- NOTE | 2020-11-01 13:10 | Progress Note ---
Assessment and Plan Patient is a 75 y/o male Atherosclerotic cerebrovascular disease AMS * Management per primary teams Acute hypoxic respiratory failure * Pulmonology following * Currently intubated Paroxysmal Afib w/RVR HFrEF * Given pt's soft BP and on Levophed will hold off on ELADIA/ARB, BB, or non- dihydropyridine CCB * Currently on Amio 200mg PO BID * Would not recommend anticoagulation currently given anemia * Echo 10/04/2020-EF 25 to 30%, right ventricle severely dilated and moderately hypokinetic, left atrium is mildly dilated, right atrium severely dilated, moderate to severe tricuspid regurgitation, moderate mitral regurgitation tricuspid annulus dilated. Acute Renal Failure * Receiving HD * Nephrology following Patient hadPEG/Trach placement yesterday. Continue amio 200mg PO BID Patient seen in conjunction with Dr. Deleon who agrees with this plan of care. Will continue to follow - Patient Problems (1) Afib Current Visit: Yes Status: Acute (2) Acute encephalopathy Current Visit: Yes Status: Acute (3) Atherosclerotic cerebrovascular disease Current Visit: Yes Status: Acute (4) Hypoglycemia Current Visit: Yes Status: Acute (5) Left-sided weakness Current Visit: Yes Status: Acute (6) Microcytic anemia Current Visit: Yes Status: Acute (7) Pulmonary infiltrate in right lung on CXR Current Visit: Yes Status: Acute (8) HFrEF (heart failure with reduced ejection fraction) Current Visit: Yes Status: Acute (9) Dilated cardiomyopathy Current Visit: Yes Status: Acute Subjective Date of service: 11/01/20 Principal diagnosis: Ac hypoxemic resp failure; Pneumonia; BETSY; Ac. en cephalopathy Interval history: Patient s/p trach/PEG surgery yesterday Patient afib 90s-100s with RVR into 140s on monitor Objective Vital Signs Temp Pulse Pulse Resp BP Pulse Ox Pulse Ox 11/01/20 11:52 100.0 F H 11/01/20 11:44 11/01/20 11:30 118 H 24 106/59 92 11/01/20 11:01 128 H 22 101/58 92 11/01/20 10:31 119 H 29 H 102/58 93 11/01/20 10:01 80 27 H 113/56 91 11/01/20 09:52 92 H 100/55 89 11/01/20 09:31 80 27 H 102/56 92 11/01/20 09:01 79 26 H 102/64 92 11/01/20 08:31 76 25 H 81/51 93 11/01/20 08:01 150 H 23 82/45 93 11/01/20 08:00 74 11/01/20 07:31 151 H 25 H 85/52 95 11/01/20 07:18 98.1 F 11/01/20 07:00 149 H 28 H 82/45 92 11/01/20 06:30 149 H 27 H 85/48 92 11/01/20 06:00 150 H 22 81/47 88 11/01/20 05:30 132 H 35 H 91/55 85 11/01/20 05:01 135 H 24 100/55 90 11/01/20 04:30 134 H 27 H 91/54 87 11/01/20 04:01 134 H 28 H 113/63 91 11/01/20 04:00 134 H 30 H 91/55 90 11/01/20 03:31 134 H 24 106/64 90 11/01/20 03:14 97.3 F L 11/01/20 03:00 126 H 32 H 102/62 91 11/01/20 02:30 136 H 29 H 104/65 91 11/01/20 02:01 131 H 27 H 100/55 90 11/01/20 01:31 115 H 22 99/59 92 11/01/20 01:01 124 H 31 H 110/67 89 11/01/20 00:30 126 H 28 H 119/70 95 11/01/20 00:01 106 H 21 103/69 96 11/01/20 00:00 97.3 F L 122 H 27 H 96 10/31/20 23:31 114 H 25 H 105/64 95 10/31/20 23:15 118 H 119/70 96 10/31/20 23:01 108 H 24 115/65 94 10/31/20 22:31 152 H 22 132/66 86 10/31/20 22:05 26 H 10/31/20 22:00 97.3 F L 131 H 26 H 114/70 93 10/31/20 21:30 121 H 30 H 111/69 93 10/31/20 21:15 122 H 106/75 92 10/31/20 21:05 21 10/31/20 21:01 114 H 32 H 106/74 89 10/31/20 20:31 110 H 30 H 124/81 92 10/31/20 20:01 111 H 30 H 134/71 96 10/31/20 20:00 97.0 F L 118 H 25 H 100 10/31/20 19:31 108 H 27 H 124/85 87 10/31/20 19:00 111 H 24 114/79 10/31/20 18:35 98.8 F 106 H 31 H 119/70 100 98 10/31/20 18:31 98 H 25 H 119/70 100 10/31/20 18:20 106 H 106/66 10/31/20 18:00 108 H 31 H 105/66 99 10/31/20 17:45 110 H 104/65 10/31/20 17:30 97 H 28 H 106/66 99 10/31/20 17:15 112 H 100/70 10/31/20 17:00 98 H 26 H 93/61 99 10/31/20 16:45 108 H 115/74 10/31/20 16:31 109 H 19 111/74 98 10/31/20 16:30 102 H 111/74 10/31/20 16:15 109 H 79/49 10/31/20 16:01 96 H 21 80/49 91 10/31/20 16:00 92 H 94 H 20 80/49 96 10/31/20 15:45 101 H 104/67 10/31/20 15:31 134 H 17 96/69 100 10/31/20 15:30 100 H 96/69 100 10/31/20 15:20 101 H 108/64 10/31/20 15:00 98.8 F 121 H 19 112/67 100 93 10/31/20 14:56 108 H 105/74 100 10/31/20 13:44 97 H 128/82 99 10/31/20 13:31 115 H 22 105/74 98 Pulse Ox 11/01/20 11:52 11/01/20 11:44 91 11/01/20 11:30 11/01/20 11:01 11/01/20 10:31 11/01/20 10:01 11/01/20 09:52 11/01/20 09:31 11/01/20 09:01 11/01/20 08:31 11/01/20 08:01 11/01/20 08:00 11/01/20 07:31 11/01/20 07:18 11/01/20 07:00 11/01/20 06:30 11/01/20 06:00 11/01/20 05:30 11/01/20 05:01 11/01/20 04:30 11/01/20 04:01 11/01/20 04:00 11/01/20 03:31 11/01/20 03:14 11/01/20 03:00 11/01/20 02:30 11/01/20 02:01 11/01/20 01:31 11/01/20 01:01 11/01/20 00:30 11/01/20 00:01 11/01/20 00:00 10/31/20 23:31 10/31/20 23:15 10/31/20 23:01 10/31/20 22:31 10/31/20 22:05 10/31/20 22:00 10/31/20 21:30 10/31/20 21:15 10/31/20 21:05 10/31/20 21:01 10/31/20 20:31 10/31/20 20:01 10/31/20 20:00 10/31/20 19:31 10/31/20 19:00 10/31/20 18:35 10/31/20 18:31 10/31/20 18:20 10/31/20 18:00 10/31/20 17:45 10/31/20 17:30 10/31/20 17:15 10/31/20 17:00 10/31/20 16:45 10/31/20 16:31 10/31/20 16:30 10/31/20 16:15 10/31/20 16:01 10/31/20 16:00 10/31/20 15:45 10/31/20 15:31 10/31/20 15:30 10/31/20 15:20 10/31/20 15:00 10/31/20 14:56 10/31/20 13:44 10/31/20 13:31 - Physical Examination General: Other (AMS) HEENT: Positive: Mucus Membranes Dry Neck: Positive: trachea midline Cardiac: Positive: irregularly irregular Neuro: Positive: Other (unable to asses ) Abdomen: Positive: Soft Skin: Negative: Rash Extremities: Present: upper extr. pulses, lower extr. pulses, edema - Labs and Meds CBC 11/01/20 Range/Units Unknown WBC 10.4 (4.5-11.0) K/mm3 RBC 2.98 L (3.65-5.03) M/mm3 Hgb 7.6 L (11.8-15.2) gm/dl Hct 23.5 L (35.5-45.6) % Plt Count 427 (140-440) K/mm3 Comprehensive Metabolic Panel 11/01/20 Range/Units Unknown Sodium 134 L (137-145) mmol/L Potassium 4.0 (3.6-5.0) mmol/L Chloride 96.1 L (98-107) mmol/L Carbon Dioxide 29 (22-30) mmol/L BUN 26 H (9-20) mg/dL Creatinine 2.2 H (0.8-1.3) mg/dL Glucose 46 L (75-100) mg/dL Calcium 8.1 L (8.4-10.2) mg/dL - Imaging and Cardiology EKG: report reviewed, image reviewed Echo: report reviewed - Telemetry EKG Rhythm: Atrial Fibrillation - EKG Supraventricular dysrhythmia: atrial fibrillation - Allied health notes Allied health notes reviewed: nursing
--- NOTE | 2020-11-01 14:47 | Progress Note ---
Assessment and Plan Acute encephalopathy Hyponatremia Hypothermia, resolved Pulmonary infiltrate in right lung on CXR Atherosclerotic cerebrovascular disease Severe anemia -possible GI bleed Severe protein-calorie malnutrition Acute Renal Failure Hypokalemia Plan: -no indication for HD today -Renal ultrasound- no hydronephrosis -Avoid nephrotoxic agents -Obtain daily weights -Monitor I/O's daily -Monitor renal function closely Subjective Date of service: 11/01/20 Principal diagnosis: Ac hypoxemic resp failure; Pneumonia; BETSY; Ac. encephalopathy Interval history: intubated and sedated. s/p PEG and trach Objective - Vital Signs Vital signs: Vital Signs - 12hr 11/01/20 11/01/20 11/01/20 03:00 03:14 03:31 Temperature 97.3 F L Pulse Rate 126 H 134 H Respiratory 32 H 24 Rate Blood Pressure 102/62 106/64 O2 Sat by Pulse 91 90 Oximetry O2 Sat by Pulse Oximetry [ Assessment] 11/01/20 11/01/20 11/01/20 04:00 04:01 04:30 Temperature Pulse Rate 134 H 134 H 134 H Respiratory 30 H 28 H 27 H Rate Blood Pressure 91/55 113/63 91/54 O2 Sat by Pulse 90 91 87 Oximetry O2 Sat by Pulse Oximetry [ Assessment] 11/01/20 11/01/20 11/01/20 05:01 05:30 06:00 Temperature Pulse Rate 135 H 132 H 150 H Respiratory 24 35 H 22 Rate Blood Pressure 100/55 91/55 81/47 O2 Sat by Pulse 90 85 88 Oximetry O2 Sat by Pulse Oximetry [ Assessment] 11/01/20 11/01/20 11/01/20 06:30 07:00 07:18 Temperature 98.1 F Pulse Rate 149 H 149 H Respiratory 27 H 28 H Rate Blood Pressure 85/48 82/45 O2 Sat by Pulse 92 92 Oximetry O2 Sat by Pulse Oximetry [ Assessment] 11/01/20 11/01/20 11/01/20 07:31 08:00 08:01 Temperature Pulse Rate 151 H 74 150 H Respiratory 25 H 23 Rate Blood Pressure 85/52 82/45 O2 Sat by Pulse 95 93 Oximetry O2 Sat by Pulse Oximetry [ Assessment] 11/01/20 11/01/20 11/01/20 08:31 09:01 09:31 Temperature Pulse Rate 76 79 80 Respiratory 25 H 26 H 27 H Rate Blood Pressure 81/51 102/64 102/56 O2 Sat by Pulse 93 92 92 Oximetry O2 Sat by Pulse Oximetry [ Assessment] 11/01/20 11/01/20 11/01/20 09:52 10:01 10:31 Temperature Pulse Rate 92 H 80 119 H Respiratory 27 H 29 H Rate Blood Pressure 100/55 113/56 102/58 O2 Sat by Pulse 89 91 93 Oximetry O2 Sat by Pulse Oximetry [ Assessment] 11/01/20 11/01/20 11/01/20 11:01 11:30 11:44 Temperature Pulse Rate 128 H 118 H Respiratory 22 24 Rate Blood Pressure 101/58 106/59 O2 Sat by Pulse 92 92 Oximetry O2 Sat by Pulse 91 Oximetry [ Assessment] 11/01/20 11/01/20 11/01/20 11:52 12:00 12:30 Temperature 100.0 F H Pulse Rate 79 78 Respiratory 32 H 22 Rate Blood Pressure 79/42 80/45 O2 Sat by Pulse 92 93 Oximetry O2 Sat by Pulse Oximetry [ Assessment] 11/01/20 11/01/20 11/01/20 13:00 13:30 13:56 Temperature Pulse Rate 78 78 77 Respiratory 21 24 Rate Blood Pressure 88/47 86/42 80/43 O2 Sat by Pulse 94 93 94 Oximetry O2 Sat by Pulse Oximetry [ Assessment] 11/01/20 11/01/20 14:00 14:30 Temperature Pulse Rate 78 77 Respiratory 25 H 21 Rate Blood Pressure 79/44 75/41 O2 Sat by Pulse 93 94 Oximetry O2 Sat by Pulse Oximetry [ Assessment] - Lab 11/01/20 Unknown 11/01/20 Unknown Most recent lab results ABG pH 7.468 (7.320-7.450) H 10/31/20 04:12 ABG O2 Saturation 85.9 (0-100) 10/31/20 04:12 Calcium 8.1 mg/dL (8.4-10.2) L 11/01/20 Unknown Phosphorus 2.80 mg/dL (2.5-4.5) 10/23/20 05:35 Magnesium 2.10 mg/dL (1.7-2.3) 10/23/20 05:35 Urine Creatinine 144.2 mg/dL (0.1-20.0) H 10/14/20 Unknown Urine Sodium 10 mmol/L 10/14/20 Unknown Urine Total Protein 97 mg/dL (5-11.8) H 10/14/20 Unknown Medications & Allergies - Medications Allergies/Adverse Reactions: Allergies No Known Allergies Allergy (Unverified 10/03/20 12:27) Home Medications: Home Medications Medication Instructions Recorded Confirmed Last Taken Type Acetaminophen [Acetaminophen TAB] 650 mg PO Q4H PRN tablet 11/01/20 Unknown Rx Amiodarone [Cordarone 200 MG TAB] 200 mg PO BID tablet 11/01/20 Unknown Rx Antacid [Alum-Mag Hydrox-Simeth 30 ml PO Q4H PRN oral.liqd 11/01/20 Unknown Rx [id number]] Dextrose 50% in Water [D50W (25GM) 50 ml IV Q30MIN PRN syringe 11/01/20 Unknown Rx Syringe] Folic Acid [Folvite] 1 mg PO QDAY tablet 11/01/20 Unknown Rx Glycopyrrolate 2 mg PO TID tablet 11/01/20 Unknown Rx Lansoprazole Solutab [Prevacid 30 mg FEEDTUBE QDAY tab.rapdis 11/01/20 Unknown Rx Solutab] Lipase/Protease/Amylase [Pancreaze 1 each FEEDTUBE PRN PRN capsule 11/01/20 Unknown Rx 10,500 Unit] Magnesium Hydroxide [Milk of 30 ml PO Q4H PRN oral.liqd 11/01/20 Unknown Rx Magnesia] Midodrine [Proamatine] 10 mg PO Q8H tablet 11/01/20 Unknown Rx Multivitamin/Min Liq 15 ml PO QDAY oral.liqd 11/01/20 Unknown Rx Promethazine [Phenergan SUPPOS] 25 mg SD Q6H PRN supp.rect 11/01/20 Unknown Rx Scopolamine [Transderm-Scop] 1 each TD Q3D patch 11/01/20 Unknown Rx Sennosides Tab [Senokot] 8.6 mg PO Q12HR PRN tablet 11/01/20 Unknown Rx Simple Syrup 15 ml FEEDTUBE PRN PRN oral.liqd 11/01/20 Unknown Rx Simple Syrup 30 ml FEEDTUBE PRN PRN oral.liqd 11/01/20 Unknown Rx Sodium Bicarbonate 325 mg FEEDTUBE PRN PRN tablet 11/01/20 Unknown Rx levETIRAcetam [Keppra] 250 mg PO BID oral.liqd 11/01/20 Unknown Rx Active Medications: Generic Name Dose Route Start Last Admin Trade Name Freq PRN Reason Stop Dose Admin Acetaminophen 650 mg 10/03/20 02:10 10/06/20 15:28 Acetaminophen 325 Mg Tab PO 650 mg Q4H PRN Administration Pain MILD(1-3)/Fever >100.5/ROMERO Al Hydrox/Mg Hydrox/Simethicone 30 ml 10/03/20 02:10 Alum-Mag Hydroxide-Simethicone [id number]/5ml Oral Liqd 30 Ml PO Q4H PRN Indigestion Amiodarone HCl 200 mg 10/30/20 10:00 11/01/20 09:13 Amiodarone 200 Mg Tab PO 200 mg BID JOSE Administration Lipase/Protease/Amylase 1 each 10/03/20 16:51 Lipase 10,500/Protease 25,000/Amylase 43,750 (Units) Dr Reis FEEDTUBE PRN PRN For Clogged Feeding Tube Dextrose 50 ml 10/16/20 12:42 11/01/20 05:26 Dextrose 50% In Water (25gm) 50 Ml Syringe IV 50 ml Q30MIN PRN Administration Hypoglycemia Protocol Fentanyl 50 mcg 10/22/20 10:00 10/31/20 21:05 Fentanyl 100 Mcg/2 Ml Inj IV 50 mcg Q4HR PRN Administration Pain , Severe (7-10) Ferrous Sulfate 308 mg 10/16/20 10:00 11/01/20 09:12 Ferrous Sulfate 308 Mg (62mg Elemental Iron) / 7 Ml Elixir FEEDTUBE 308 mg DAILY JOSE Administration Folic Acid 1 mg 10/03/20 10:00 11/01/20 09:13 Folic Acid 1 Mg Tab PO 1 mg QDAY JOSE Administration Glycopyrrolate 2 mg 10/29/20 20:00 11/01/20 14:42 Glycopyrrolate 2 Mg Tab PO 2 mg TID JOSE Administration Heparin Sodium (Porcine) 5,000 unit 10/30/20 11:00 11/01/20 09:13 Heparin 5,000 Unit/1 Ml Vial SUB-Q 5,000 unit Q12HR JOSE Administration NORepinephrine/NS 8 MG-250 ML 8 mg in 250 mls @ 3.75 mls/hr 10/16/20 19:00 11/01/20 09:20 Norepinephrine/Ns 8 Mg-250 Ml (Double Conc) IV 6 mcg/min TITRATE JOSE 11.25 mls/hr Titration Protocol 2 MCG/MIN Lansoprazole 30 mg 11/01/20 10:00 11/01/20 09:13 Lansoprazole 30 Mg Solutab FEEDTUBE 30 mg QDAY JOSE Administration Levetiracetam 250 mg 10/30/20 22:00 11/01/20 09:14 Levetiracetam 500 Mg/5 Ml Oral Liqd PO 250 mg BID JOSE Administration Magnesium Hydroxide 30 ml 10/03/20 02:10 Magnesium Hydroxide (Mom) Oral Liqd Udc PO Q4H PRN Constipation Midodrine 10 mg 10/24/20 18:00 11/01/20 09:13 Midodrine 5 Mg Tab PO 10 mg Q8H JOSE Administration Promethazine HCl 25 mg 10/03/20 02:10 Promethazine 25 Mg Rect Supp SD Q6H PRN N/V IF NPO AND NO IV ACCESS Scopolamine 1 each 10/31/20 08:00 10/31/20 08:27 Scopolamine Transdermal Patch 72 Hr TD 1 each Q3D JOSE Administration Senna 8.6 mg 10/03/20 02:10 Sennosides 8.6 Mg Tab PO Q12HR PRN Constipation Simple Syrup 15 ml 10/03/20 16:51 10/19/20 02:08 Simple Syrup 15 Ml FEEDTUBE 15 ml PRN PRN Administration Hypoglycemia Simple Syrup 30 ml 10/03/20 16:51 10/16/20 22:02 Simple Syrup 15 Ml FEEDTUBE 30 ml PRN PRN Administration Hypoglycemia Sodium Bicarbonate 325 mg 10/03/20 16:51 Sodium Bicarbonate 325 Mg Tab FEEDTUBE PRN PRN For Clogged Feeding Tube
[2020-11-01] MEDS: NORepinephrine/NS 8 MG-250 ML 8 MG/250 ML INFUS..BTL IV SCH (16:26)
[2020-11-01] MEDS ORDERED: SODIUM CHLORIDE 0.9% 1000 ML 1,000 ML ONE (16:31)
[2020-11-01 17:25] VITALS: BP 110/68
[2020-11-01] MEDS ORDERED: AMIODARONE 150 MG in DEXTROSE 5% IN WATER 97 ML IV ONE (17:25)
[2020-11-01] MEDS ORDERED: SODIUM CHLORIDE 0.9% 500 ML 500 ML IV SCH (17:30)
== END 2020-11-01 16:32 | DRG 4 ==
LOC: ED 22:37 → IMCU 10-03 00:30 → 3A 10-03 02:18 → 4A 10-03 22:34 → CC1 10-15 09:02
PROVIDERS: ADMIT Hospitalist; ATTEND Internal Medicine
PROC: 30233N1 Transfusion of Nonautologous Red Blood Cells into Peripheral Vein, Percutaneous Approach (ICD-10-PCS; 2020-10-03)
PROC: 0DH67UZ Insertion of Feeding Device into Stomach, Via Natural or Artificial Opening (ICD-10-PCS; 2020-10-09)
PROC: 5A1955Z Respiratory Ventilation, Greater than 96 Consecutive Hours (ICD-10-PCS; principal; 2020-10-15)
PROC: 0BH17EZ Insertion of Endotracheal Airway into Trachea, Via Natural or Artificial Opening (ICD-10-PCS; 2020-10-15)
PROC: 4A033R1 Measurement of Arterial Saturation, Peripheral, Percutaneous Approach (ICD-10-PCS; 2020-10-16)
PROC: 30233R1 Transfusion of Nonautologous Platelets into Peripheral Vein, Percutaneous Approach (ICD-10-PCS; 2020-10-18)
PROC: 02HV33Z Insertion of Infusion Device into Superior Vena Cava, Percutaneous Approach (ICD-10-PCS; 2020-10-24)
PROC: 5A1D70Z Performance of Urinary Filtration, Intermittent, Less than 6 Hours Per Day (ICD-10-PCS; 2020-10-24)
PROC: B548ZZA Ultrasonography of Superior Vena Cava, Guidance (ICD-10-PCS; 2020-10-24)
PROC: 5A1D70Z Performance of Urinary Filtration, Intermittent, Less than 6 Hours Per Day (ICD-10-PCS; 2020-10-25)
PROC: 5A1D70Z Performance of Urinary Filtration, Intermittent, Less than 6 Hours Per Day (ICD-10-PCS; 2020-10-26)
PROC: 5A1D70Z Performance of Urinary Filtration, Intermittent, Less than 6 Hours Per Day (ICD-10-PCS; 2020-10-27)
PROC: 5A1D70Z Performance of Urinary Filtration, Intermittent, Less than 6 Hours Per Day (ICD-10-PCS; 2020-10-28)
PROC: 05HY33Z Insertion of Infusion Device into Upper Vein, Percutaneous Approach (ICD-10-PCS; 2020-10-28)
PROC: 0B113F4 Bypass Trachea to Cutaneous with Tracheostomy Device, Percutaneous Approach (ICD-10-PCS; 2020-10-31)
PROC: 0DH63UZ Insertion of Feeding Device into Stomach, Percutaneous Approach (ICD-10-PCS; 2020-10-31)
PROC: 0BJ08ZZ Inspection of Tracheobronchial Tree, Via Natural or Artificial Opening Endoscopic (ICD-10-PCS; 2020-10-31)
DX: J18.9 Pneumonia, unspecified organism (principal); J96.01 Acute respiratory failure with hypoxia; G93.41 Metabolic encephalopathy; E43 Unspecified severe protein-calorie malnutrition; N17.0 Acute kidney failure with tubular necrosis; A41.9 Sepsis, unspecified organism; I50.23 Acute on chronic systolic (congestive) heart failure; E87.1 Hypo-osmolality and hyponatremia; I48.20 Chronic atrial fibrillation, unspecified; G81.94 Hemiplegia, unspecified affecting left nondominant side; I67.89 Other cerebrovascular disease; G91.2 (Idiopathic) normal pressure hydrocephalus; J91.8 Pleural effusion in other conditions classified elsewhere; I48.92 Unspecified atrial flutter; I82.612 Acute embolism and thrombosis of superficial veins of left upper extremity; K92.2 Gastrointestinal hemorrhage, unspecified; D62 Acute posthemorrhagic anemia; I70.90 Unspecified atherosclerosis; Z68.25 Body mass index [BMI] 25.0-25.9, adult; D50.9 Iron deficiency anemia, unspecified; I67.2 Cerebral atherosclerosis; Z20.822 Contact with and (suspected) exposure to COVID-19; K21.9 Gastro-esophageal reflux disease without esophagitis; E16.2 Hypoglycemia, unspecified; R13.12 Dysphagia, oropharyngeal phase; I48.0 Paroxysmal atrial fibrillation; E87.6 Hypokalemia; D69.6 Thrombocytopenia, unspecified; Z68.29 Body mass index [BMI] 29.0-29.9, adult
CPT/HCPCS: 31720; 36415; 36600; 43752; 70450; 70496; 70498; 70551; 71045; 74018; 76770; 80048; 80053; 80074; 80076; 80320; 82140; 82533; 82550; 82553; 82570; 82805; 82947; 82962; 83036; 83550; 83690; 83735; 83930; 83935; 84100; 84145; 84156; 84295; 84300; 84443; 84484; 85007; 85014; 85018; 85025; 85027; 85379; 85384; 85610; 85670; 85730; 86850; 86900; 86901; 86920; 87040; 87070; 87205; 89050; 93005; 93306; 93970; 94003; 94760; 95819; G0378; C1769; C9113; G0480; J0171; J0282; J0456; J0692; J0696; J1250; J1644; J1720; J1940; J1953; J2370; J2405; J2765; J3010; J3370; J3411; J3475; J3480; J7030; J7040; J7042; J7050; J7060; J7070; J7131; P9016; P9035; P9047; Q9967; U0003